=== PATIENT | female | born 1955 | race Caucasian/White ===

== ENCOUNTER 2016-03-15 14:31 | Emergency (ER) | payer MEDICARE ==
[2016-03-15] MEDS ORDERED: Sodium Chloride 0.9% 1000 ML 1,000 ML IV STA (14:48)
[2016-03-15] MEDS ORDERED: Sodium Chloride 0.9% 1000 ML 1,000 ML ONE (14:56)
[2016-03-15 15:11] LABS: Collection Type VOID
[2016-03-15 15:14] LABS: BASOPHIL % 0.5 % (0.0-0.4); Eosinophil % 2.4 % (0.00-5.0); Granulocytes % 56.4 % (36.0-66.0); Mean Cell Volume 91.6 fl (78-100); Mean Corpuscular Hemoglobin 30.9 pg (26-32); Mean Platelet Volume 10.3 fl (6-9.5); Monocytes % 8.7 % (0.0-12.0); Platelet Count 177 K/mm3 (150-450); Red Cell Distribution Width 12.3 % (11.5-14.0); White Blood Count 3.7 K/mm3 (4.0-10.5)
[2016-03-15 15:16] LABS: COMPLETE URINE MICROSCOPIC? YES; Ph 8.5 (5-6)
[2016-03-15 15:18] LABS: Bacteria PACKED /HPF (NEGATIVE); CALCIUM OXALATE CRYSTALS 0-2 /HPF (NEGATIVE); Epithelial Cells MODERATE /HPF (FEW); WBC 15-25 /HPF (0-5)
[2016-03-15 15:23] VITALS: BP 110/64; PULSE 90; O2SAT 97
[2016-03-15] MEDS ORDERED: ROCEPHIN 1 Gm-D5w 50 ml Bag** 50 ML IV ONE ×2 (15:23→15:26)
--- NOTE | 2016-03-15 15:31 | ERPHSYRPT ---
- History of Present Illness Time Seen by Provider: 03/15/16 15:29 Historian: patient Exam Limitations: no limitations Patient Subjective Stated Complaint: pt states she thinks she may have constipation and kidney problems. pt states she has finished levaquin and proxetil for urinary tract infection. pt states her abdomen has hurt since january 15, 2016. Triage Nursing Assessment: pt pink, warm, dry. abdomen soft nontender. pt ambulated into er without difficulty. pt afebrile. bowel sounds present in all 4 quads. Physician History: pt states she thinks she may have constipation and kidney problems. pt states she has finished levaquin and proxetil for urinary tract infection. pt states her abdomen has hurt since january 15, 2016. Timing/Duration: day(s) Abdominal Pain Onset Location: generalized abdomen Severity of Pain-Max: moderate Severity of Pain-Current: moderate Associated Symptoms: nausea Allergies/Adverse Reactions: codeine Allergy (Mild, Verified 03/15/16 14:53) Rash MAKES SICK sumatriptan [From Imitrex] Allergy (Verified 03/15/16 14:53) sumatriptan succinate [From Imitrex] Allergy (Verified 03/15/16 14:53) morphine Adverse Reaction (Severe, Verified 03/15/16 14:53) Headache MIGRAINES hydrocodone bitartrate [From Vicodin] Adverse Reaction (Mild, Verified 03/15/16 14:53) Vomiting Home Medications: Alprazolam 1 mg [Xanax 1 mg] 2 mg PO BID 02/17/13 [History] Oxycodone / APAP 10/325 mg [Oxycodone-Acetaminophen 10-325] 1 tab PO DAILY 02/17/13 [History] Rizatriptan Benzoate [Maxalt] 10 mg PO DAILY PRN 02/17/13 [History] Linaclotide [Linzess] 290 mcg PO DAILY 07/13/14 [History] Polyethylene Glycol 3350 17 gm [Miralax Powder 17GM PACKET] 17 gm PO BID 03/01 [History] Fluticasone Propionate [Flonase Nasal] 16 gm NS DAILY 04/25/15 [History] Sennosides/Docusate Sodium [Senokot-S Tablet] 2 tab PO DAILY 04/25/15 [History] Promethazine HCl 25 mg [Phenergan 25 mg] 25 mg PO Q8HPRN PRN 05/11/15 [ History] Naloxegol Oxalate [Movantik] 25 mg PO DAILY 12/24/15 [History] Cetirizine HCl/Pseudoephedrine [Zyrtec-D Tablet] 1 each PO DAILY 02/03/16 [ History] Levothyroxine Sodium 50 Mcg [Synthroid 50 Mcg] 50 mcg PO DAILY 02/03/16 [ History] Phenazopyridine HCl 200 mg [Pyridium 200 mg] 200 mg PO 02/03/16 [History] Hx Tetanus, Diphtheria Vaccination/Date Given: Yes Hx Influenza Vaccination/Date Given: Yes Hx Pneumococcal Vaccination/Date Given: No Immunizations Up to Date: Yes - Review of Systems Constitutional: No Fever, No Chills Eyes: No Symptoms Ears, Nose, & Throat: No Symptoms Respiratory: No Cough, No Dyspnea Cardiac: No Chest Pain, No Edema, No Syncope Abdominal/Gastrointestinal: Abdominal Pain, Nausea, Vomiting, No Diarrhea Genitourinary Symptoms: No Dysuria Musculoskeletal: No Back Pain, No Neck Pain Skin: No Rash Neurological: No Dizziness, No Focal Weakness, No Sensory Changes Psychological: No Symptoms Endocrine: No Symptoms All Other Systems: Reviewed and Negative - Past Medical History Pertinent Past Medical History: Yes Neurological History: Migraines ENT History: Cataracts, Other Cardiac History: No Pertinent History Respiratory History: No Pertinent History Endocrine Medical History: Hypothyroidism, Other Musculoskeletal History: Arthritis, Degenerative Disk Disease, Osteoarthritis, Other GI Medical History: GERD, Irritable Bowel, Ulcer, Other History: Other Psycho-Social History: Anxiety Female Reproductive Disorders: Other Other Medical History: cystitis, chronic pseudo obstructions - Past Surgical History Past Surgical History: Yes Neuro Surgical History: No Pertinent History Cardiac: No Pertinent History Respiratory: No Pertinent History Gastrointestinal: Bowel Surgery, Cholecystectomy, Colon Resection Genitourinary: Other Musculoskeletal: No Pertinent History Female Surgical History: Hysterectomy Other Surgical History: COLONOSCOPIES, EGDs. Total colectomy. FEEDING TUBE FOR 4 YEARS, stretches of bladder and urethra, inguinal hernia, bowel obstructions x2 - Social History Smoking Status: Never smoker Exposure to second hand smoke: No Drug Use: none Patient Lives Alone: No - Female History Hx Now: No - Nursing Vital Signs Nursing Vital Signs: Initial Vital Signs Temperature 97.9 F Temperature Source Oral Pulse Rate 90 Respiratory Rate 18 Blood Pressure [Left Arm] 110/64 Pain Intensity 8 - Physical Exam General Appearance: no apparent distress, alert Eye Exam: PERRL/EOMI, eyes nml inspection Ears, Nose, Throat Exam: normal ENT inspection, pharynx normal, moist mucous membranes Neck Exam: normal inspection, non-tender, supple, full range of motion Respiratory Exam: normal breath sounds, lungs clear, No respiratory distress Cardiovascular Exam: regular rate/rhythm, normal heart sounds Gastrointestinal/Abdomen Exam: soft, No tenderness, No mass Back Exam: normal inspection, normal range of motion, No CVA tenderness, No vertebral tenderness Extremity Exam: normal inspection, normal range of motion, pelvis stable Neurologic Exam: alert, 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, cooperative, normal mood/affect, nml cerebellar function, sensation nml, No motor deficits Skin Exam: normal color, warm, dry SpO2: 97 Oxygen Delivery: Room Air - Course Nursing assessment & vital signs reviewed: Yes Ordered Tests: Active Orders 24 hr Category Date Time Status IV Insertion STAT Care 03/15/16 15:09 Active CBC W DIFF Stat Lab 03/15/16 14:55 Completed CMP Stat Lab 03/15/16 14:55 Completed UA W/ MICROSCOPIC Stat Lab 03/15/16 14:50 Completed UA W/RFX UR CULTURE Stat Lab 03/15/16 15:44 Uncollected Medication Summary Generic Name Dose Route Start Last Admin Trade Name Freq PRN Reason Stop Dose Admin Ceftriaxone Sodium/Dextrose 50 mls @ 100 mls/hr 03/15/16 15:23 03/15/16 15:34 Rocephin 1 Gm-D5w 50 Ml Bag IV 03/15/16 15:52 100 mls/hr STAT ONE Administration Discontinued Medications Generic Name Dose Route Start Last Admin Trade Name Freq PRN Reason Stop Dose Admin Sodium Chloride 1,000 mls @ 999 mls/hr 03/15/16 14:48 03/15/16 14:57 Sodium Chloride 0.9% 1000 Ml IV 03/15/16 15:48 999 mls/hr .Q1H1M STA Administration Sodium Chloride Confirm 03/15/16 14:56 Sodium Chloride 0.9% 1000 Ml Administered 03/15/16 14:57 Dose 1,000 mls @ ud .ROUTE .STK-MED ONE Ceftriaxone Sodium/Dextrose Confirm 03/15/16 15:26 Rocephin 1 Gm-D5w 50 Ml Bag Administered 03/15/16 15:27 Dose 50 mls @ ud IV .STK-MED ONE Lab/Rad Data: Laboratory Result Diagrams 03/15/16 14:55 03/15/16 14:55 Laboratory Results 03/15/16 03/15/16 03/15/16 Range/Units 14:55 14:55 14:50 WBC 3.7 L (4.0-10.5) K/mm3 RBC 4.30 (4.1-5.4) M/mm3 Hgb 13.3 (12.0-16.0) gm/dl Hct 39.4 (35-47) % MCV 91.6 (78-100) fl MCH 30.9 (26-32) pg MCHC 33.8 (32-36) g/dl RDW 12.3 (11.5-14.0) % Plt Count 177 (150-450) K/mm3 MPV 10.3 H (6-9.5) fl Gran % 56.4 (36.0-66.0) % Lymphocytes % 32.0 (24.0-44.0) % Monocytes % 8.7 (0.0-12.0) % Eosinophils % 2.4 (0.00-5.0) % Basophils % 0.5 (0.0-0.4) % Basophils # 0.02 (0-0.4) Sodium 142 (136-145) mEq/L Potassium 3.9 (3.5-5.1) mEq/L Chloride 109 H (98-107) mEq/L Carbon Dioxide 17.1 L (21-32) mEq/L Anion Gap 20.1 H (5-15) MEQ/L BUN 13 (9-20) mg/dL Creatinine 1.28 (0.55-1.30) mg/dl Estimated GFR 45 ML/MIN Glucose 110 (70-110) MG/DL Calcium 8.8 (8.5-10.1) mg/dL Total Bilirubin 0.4 (0.2-1.0) mg/dL AST 17 (15-37) U/L ALT 14 (12-78) U/L Alkaline Phosphatase 97 (46-116) U/L Serum Total Protein 7.6 (6.4-8.2) gm/dL Albumin 3.8 (3.4-5.0) g/dL Ur Collection Type VOID Urine Color DARK YELLOW (YELLOW) Urine Appearance CLOUDY (CLEAR) Urine pH 8.5 (5-6) Ur Specific Odin 1.015 (1.005-1.025) Urine Protein 100 (Negative) Urine Glucose (UA) NEGATIVE (NEGATIVE) mg/dL Urine Ketones NEGATIVE (NEGATIVE) Urine Nitrite NEGATIVE (NEGATIVE) Urine Bilirubin LARGE (NEGATIVE) Urine Urobilinogen 0.2 (0-1) mg/dL Urine WBC (Auto) LARGE (NEGATIVE) Urine RBC (Auto) LARGE (0-5) Aroldo/ul Urine Microscopic RBC 50-100 (0-2) /HPF Urine Microscopic WBC 15-25 (0-5) /HPF Ur Epithelial Cells MODERATE (FEW) /HPF Calcium Oxalate Crystal 0-2 (NEGATIVE) /HPF Urine Bacteria PACKED (NEGATIVE) /HPF Specimen Received 03/15/16 1450 - Progress Progress: improved Counseled pt/family regarding: lab results, diagnosis, need for follow-up - Departure Time of Disposition: 15:39 Departure Disposition: Home Clinical Impression: UTI (urinary tract infection) Qualifiers: Urinary tract infection type: acute pyelonephritis Qualified Code(s): N10 - Acute pyelonephritis Condition: Stable Critical Care Time: No Referrals: PAWEL JAMIL [Primary Care Provider] - Instructions: Urinary Tract Infection (UTI) Additional Instructions: Please follow the instructions given to you. Please take your medication as prescribed if given. If symptoms recur or get worse, come back to the emergency room if you cannot reach your primary care physician, or call your primary care physician for an appointment. Again if your symptoms get worse, come back to the emergency room. Thanks for visiting emergency room, and let us take care of you. Prescriptions: Cephalexin Mh 500 mg [Keflex 500 mg] 500 mg PO Q6H #40 capsule
[2016-03-15 15:33] LABS: ALBUMIN 3.8 g/dL (3.4-5.0); ANION GAP 20.1 MEQ/L (5-15); BILIRUBIN,TOTAL 0.4 mg/dL (0.2-1.0); Carbon Dioxide 17.1 mEq/L (21-32); Potassium 3.9 mEq/L (3.5-5.1); Total Protein 7.6 gm/dL (6.4-8.2)
== END 2016-03-15 16:18 | disposition home or self-care (01) ==
LOC: ED 14:31
DX: N10 Acute pyelonephritis (principal); R10.84 Generalized abdominal pain; R11.2 Nausea with vomiting, unspecified
CPT/HCPCS: 36000; 36415; 36591; 80053; 81000; 85025; 87086; 96360; 99283; J0696; J1642

== ENCOUNTER 2016-04-26 07:37 | Emergency (ER) | payer MEDICARE ==
[2016-04-26 07:57] VITALS: O2SAT 95
[2016-04-26] MEDS ORDERED: Zofran 4 MG/2 ML VIAL IV ONE ×2 (07:58→10:56)
[2016-04-26] MEDS ORDERED: Sodium Chloride 0.9% 1000 ML 1,000 ML IV SCH (08:00)
[2016-04-26] MEDS ORDERED: TORAdol 30 mg Injection IV ONE (08:02)
[2016-04-26] MEDS ORDERED: TORAdol 30 mg Injection ONE (08:08)
[2016-04-26] MEDS ORDERED: Sodium Chloride 0.9% 1000 ML 1,000 ML ONE (08:08)
[2016-04-26] MEDS ORDERED: Zofran 4 MG/2 ML VIAL ONE ×2 (08:08→10:57)
[2016-04-26 08:14] LABS: BASOPHIL % 0.2 % (0.0-0.4); Granulocytes % 71.6 % (36.0-66.0); Lymphocytes % 19.5 % (24.0-44.0); Mean Cell Volume 92.2 fl (78-100); Mean Corpuscular Hemoglobin 30.3 pg (26-32); Monocytes % 6.7 % (0.0-12.0); Platelet Count 147 K/mm3 (150-450); Red Blood Count 3.72 M/mm3 (4.1-5.4); Red Cell Distribution Width 12.6 % (11.5-14.0)
[2016-04-26 08:17] LABS: Collection Type CCMS
[2016-04-26 08:18] LABS: COMPLETE URINE MICROSCOPIC? YES; Ph 5.5 (5-6)
--- NOTE | 2016-04-26 08:24 | ERPHSYRPT ---
- History of Present Illness Time Seen by Provider: 04/26/16 08:00 Historian: patient Exam Limitations: clinical condition Patient Subjective Stated Complaint: pt states she has lithotripsy on 04/25/15 at [facility] and went back to hospital the next day for pain control. pt states she has been taking her pain meds and drinking water and is still having pain. pt c/ o pain to right lower abdomen and flank. Triage Nursing Assessment: pt pink, warm, dry. pt able to void on her own. abdomen soft non tender. pt afrebrile. Physician History: PATIENT WITH HISTORY OF KIDNEY STONES UNDERWENT LITHOTRIPSY ON April FOR A 9MM STONE, AND PATIENT NOW COMPLAINS OF RIGHT LOWER ABDOMINAL PAIN ASSOCIATED WITH INABILITY TO URINATE. HAD 2 EPISODES OR EMESIS THIS MORNING. DENIES FEVER, OR DIARRHEA. Timing/Duration: today Activities at Onset: none Quality: throbbing Abdominal Pain Onset Location: RLQ Pain Radiation: no radiation Severity of Pain-Max: moderate Severity of Pain-Current: moderate Modifying Factors: Improves With: urinating Associated Symptoms: nausea, neck pain Previous symptoms: same symptoms as today Allergies/Adverse Reactions: codeine Allergy (Mild, Verified 04/26/16 07:50) Rash MAKES SICK sumatriptan [From Imitrex] Allergy (Verified 04/26/16 07:50) sumatriptan succinate [From Imitrex] Allergy (Verified 04/26/16 07:50) morphine Adverse Reaction (Severe, Verified 04/26/16 07:50) Headache MIGRAINES hydrocodone bitartrate [From Vicodin] Adverse Reaction (Mild, Verified 04/26/16 07:50) Vomiting fentanyl Adverse Reaction (Verified 04/26/16 07:53) Home Medications: Alprazolam 1 mg [Xanax 1 mg] 2 mg PO BID 02/17/13 [History] Oxycodone / APAP 10/325 mg [Oxycodone-Acetaminophen 10-325] 1 tab PO DAILY 02/17/13 [History] Rizatriptan Benzoate [Maxalt] 10 mg PO DAILY PRN 02/17/13 [History] Linaclotide [Linzess] 290 mcg PO DAILY 07/13/14 [History] Polyethylene Glycol 3350 17 gm [Miralax Powder 17GM PACKET] 17 gm PO BID 03/01 [History] Fluticasone Propionate [Flonase Nasal] 16 gm NS DAILY 04/25/15 [History] Sennosides/Docusate Sodium [Senokot-S Tablet] 2 tab PO DAILY 04/25/15 [History] Promethazine HCl 25 mg [Phenergan 25 mg] 25 mg PO Q8HPRN PRN 05/11/15 [ History] Naloxegol Oxalate [Movantik] 25 mg PO DAILY 12/24/15 [History] Cetirizine HCl/Pseudoephedrine [Zyrtec-D Tablet] 1 each PO DAILY 02/03/16 [ History] Levothyroxine Sodium 50 Mcg [Synthroid 50 Mcg] 50 mcg PO DAILY 02/03/16 [ History] Levofloxacin [Levaquin] 500 mg PO DAILY 04/26/16 [History] Hx Tetanus, Diphtheria Vaccination/Date Given: Yes (up to date) Hx Influenza Vaccination/Date Given: Yes Hx Pneumococcal Vaccination/Date Given: Yes Immunizations Up to Date: Yes - Review of Systems Constitutional: No Fever, No Chills Eyes: No Symptoms Ears, Nose, & Throat: No Symptoms Respiratory: No Symptoms, No Cough, No Dyspnea Cardiac: No Symptoms, No Chest Pain, No Edema, No Syncope Abdominal/Gastrointestinal: Abdominal Pain, Nausea, Vomiting, No Diarrhea Genitourinary Symptoms: No Dysuria Musculoskeletal: No Back Pain, No Neck Pain Skin: No Rash Neurological: No Dizziness, No Focal Weakness, No Sensory Changes Psychological: No Symptoms Endocrine: No Symptoms All Other Systems: Reviewed and Negative - Past Medical History Pertinent Past Medical History: Yes Neurological History: Migraines ENT History: Cataracts, Other Cardiac History: No Pertinent History Respiratory History: No Pertinent History Endocrine Medical History: Hypothyroidism, Other Musculoskeletal History: Arthritis, Degenerative Disk Disease, Osteoarthritis, Other GI Medical History: GERD, Irritable Bowel, Ulcer, Other History: Other Psycho-Social History: Anxiety Female Reproductive Disorders: Other Other Medical History: cystitis, chronic pseudo obstructions - Past Surgical History Past Surgical History: Yes Neuro Surgical History: No Pertinent History Cardiac: No Pertinent History Respiratory: No Pertinent History Gastrointestinal: Bowel Surgery, Cholecystectomy, Colon Resection Genitourinary: Other Musculoskeletal: No Pertinent History Female Surgical History: Hysterectomy Other Surgical History: COLONOSCOPIES, EGDs. Total colectomy. FEEDING TUBE FOR 4 YEARS, stretches of bladder and urethra, inguinal hernia, bowel obstructions x2. lithotripsy - Social History Smoking Status: Never smoker Exposure to second hand smoke: No Drug Use: none Patient Lives Alone: No - Female History Hx Now: No - Nursing Vital Signs Nursing Vital Signs: Initial Vital Signs Temperature 97.4 F Temperature Source Oral Pulse Rate 96 Respiratory Rate 16 Blood Pressure [] 95/35 Pain Intensity 4 - Physical Exam General Appearance: mild distress Eye Exam: PERRL/EOMI, eyes nml inspection Ears, Nose, Throat Exam: normal ENT inspection, pharynx normal, moist mucous membranes Neck Exam: normal inspection, non-tender, supple, full range of motion Respiratory Exam: normal breath sounds, lungs clear, No respiratory distress Cardiovascular Exam: regular rate/rhythm, normal heart sounds Gastrointestinal/Abdomen Exam: soft, normal bowel sounds, tenderness (RIGHT LOWER QUADRANT TENDERNESS), No mass Back Exam: normal inspection, normal range of motion, CVA tenderness (MINIMAL RIGHT CVA TENDERNESS), No vertebral tenderness Extremity Exam: normal inspection, normal range of motion, pelvis stable Neurologic Exam: alert, 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, cooperative, normal mood/affect, nml cerebellar function, sensation nml, No motor deficits Skin Exam: normal color, warm, dry SpO2 Interpretation: normal SpO2: 95 Oxygen Delivery: Room Air - CT Exams Abdomen/Pelvis CT Interpretation: Tele-radiologist Report (MODERATE TO SEVERE RIGHT HYDROURETERONEPHOROSIS TO THE LEVEL OF A CLUSTER AT THE RIGHT URETEROVESICULAR JUNCTION) Ordered Tests: Active Orders 24 hr Category Date Time Status Clean Catch Urine Specimen STAT Care 04/26/16 07:58 Active IV Insertion STAT Care 04/26/16 07:58 Active ABDOMEN AND PELVIS W/0 CONTRAS [CT] Stat Exams 04/26/16 07:59 Taken AMYLASE Stat Lab 04/26/16 08:10 Completed BMP Stat Lab 04/26/16 08:10 Completed CBC W DIFF Stat Lab 04/26/16 08:10 Completed UA W/ MICROSCOPIC Stat Lab 04/26/16 08:10 Completed Urine Triage Profile Stat Lab 04/26/16 08:00 Completed Medication Summary Generic Name Dose Route Start Last Admin Trade Name Freq PRN Reason Stop Dose Admin Sodium Chloride 1,000 mls @ 500 mls/hr 04/26/16 08:00 04/26/16 08:09 Sodium Chloride 0.9% 1000 Ml IV 05/26/16 07:59 500 mls/hr .Q2H JENNIFER Administration Discontinued Medications Generic Name Dose Route Start Last Admin Trade Name Elton PRN Reason Stop Dose Admin Hydromorphone HCl 1 mg 04/26/16 09:25 04/26/16 09:34 Hydromorphone 1 Mg/Ml Ampule IV 04/26/16 09:26 1 mg STAT ONE Administration Hydromorphone HCl Confirm 04/26/16 09:34 Hydromorphone 1 Mg/Ml Ampule Administered 04/26/16 09:35 Dose 1 mg .ROUTE .STK-MED ONE Sodium Chloride Confirm 04/26/16 08:08 Sodium Chloride 0.9% 1000 Ml Administered 04/26/16 08:09 Dose 1,000 mls @ ud .ROUTE .STK-MED ONE Ketorolac Tromethamine 30 mg 04/26/16 08:02 04/26/16 08:09 Toradol 30 Mg Injection IV 04/26/16 08:03 30 mg STAT ONE Administration Ketorolac Tromethamine Confirm 04/26/16 08:08 Toradol 30 Mg Injection Administered 04/26/16 08:09 Dose 30 mg .ROUTE .STK-MED ONE Ondansetron HCl 4 mg 04/26/16 07:58 04/26/16 08:09 Zofran 4 Mg/2 Ml Vial IV 04/26/16 07:59 4 mg STAT ONE Administration Ondansetron HCl Confirm 04/26/16 08:08 Zofran 4 Mg/2 Ml Vial Administered 04/26/16 08:09 Dose 4 mg .ROUTE .STK-MED ONE Lab/Rad Data: Laboratory Result Diagrams 04/26/16 08:10 04/26/16 08:10 Laboratory Results 04/26/16 04/26/16 04/26/16 Range/Units 08:10 08:10 08:10 WBC 6.0 (4.0-10.5) K/mm3 RBC 3.72 L (4.1-5.4) M/mm3 Hgb 11.3 L (12.0-16.0) gm/dl Hct 34.3 L (35-47) % MCV 92.2 (78-100) fl MCH 30.3 (26-32) pg MCHC 32.9 (32-36) g/dl RDW 12.6 (11.5-14.0) % Plt Count 147 L (150-450) K/mm3 MPV 10.0 H (6-9.5) fl Gran % 71.6 H (36.0-66.0) % Lymphocytes % 19.5 L (24.0-44.0) % Monocytes % 6.7 (0.0-12.0) % Eosinophils % 2.0 (0.00-5.0) % Basophils % 0.2 (0.0-0.4) % Basophils # 0.01 (0-0.4) Sodium 143 (136-145) mEq/L Potassium 3.7 (3.5-5.1) mEq/L Chloride 110 H (98-107) mEq/L Carbon Dioxide 21.5 (21-32) mEq/L Anion Gap 15.1 H (5-15) MEQ/L BUN 18 (9-20) mg/dL Creatinine 1.26 (0.55-1.30) mg/dl Estimated GFR 46 ML/MIN Glucose 107 (70-110) MG/DL Calcium 8.6 (8.5-10.1) mg/dL Amylase 47 (25-115) U/L Ur Collection Type CCMS Urine Color YELLOW (YELLOW) Urine Appearance CLOUDY (CLEAR) Urine pH 5.5 (5-6) Ur Specific Castile >=1.030 (1.005-1.025) Urine Protein 30 (Negative) Urine Glucose (UA) NEGATIVE (NEGATIVE) mg/dL Urine Ketones NEGATIVE (NEGATIVE) Urine Nitrite NEGATIVE (NEGATIVE) Urine Bilirubin NEGATIVE (NEGATIVE) Urine Urobilinogen 0.2 (0-1) mg/dL Urine WBC (Auto) NEGATIVE (NEGATIVE) Urine RBC (Auto) MODERATE (0-5) Aroldo/ul Urine Microscopic RBC 5-10 (0-2) /HPF Urine Microscopic WBC 2-5 (0-5) /HPF Ur Epithelial Cells FEW (FEW) /HPF Calcium Oxalate Crystal 10-25 (NEGATIVE) /HPF Urine Bacteria FEW (NEGATIVE) /HPF Urine Opiates Level (NEGATIVE) Ur Methadone (NEGATIVE) Urine Barbiturates (NEGATIVE) Ur Phencyclidine (PCP) (NEGATIVE) Urine Amphetamine (NEGATIVE) U Benzodiazepine Level (NEGATIVE) Urine Cocaine (NEGATIVE) Urine Marijuana (THC) (NEGATIVE) Specimen Received 0804/26/16 04/26/16 Range/Units 08:00 WBC (4.0-10.5) K/mm3 RBC (4.1-5.4) M/mm3 Hgb (12.0-16.0) gm/dl Hct (35-47) % MCV (78-100) fl MCH (26-32) pg MCHC (32-36) g/dl RDW (11.5-14.0) % Plt Count (150-450) K/mm3 MPV (6-9.5) fl Gran % (36.0-66.0) % Lymphocytes % (24.0-44.0) % Monocytes % (0.0-12.0) % Eosinophils % (0.00-5.0) % Basophils % (0.0-0.4) % Basophils # (0-0.4) Sodium (136-145) mEq/L Potassium (3.5-5.1) mEq/L Chloride (98-107) mEq/L Carbon Dioxide (21-32) mEq/L Anion Gap (5-15) MEQ/L BUN (9-20) mg/dL Creatinine (0.55-1.30) mg/dl Estimated GFR ML/MIN Glucose (70-110) MG/DL Calcium (8.5-10.1) mg/dL Amylase (25-115) U/L Ur Collection Type Urine Color (YELLOW) Urine Appearance (CLEAR) Urine pH (5-6) Ur Specific Castile (1.005-1.025) Urine Protein (Negative) Urine Glucose (UA) (NEGATIVE) mg/dL Urine Ketones (NEGATIVE) Urine Nitrite (NEGATIVE) Urine Bilirubin (NEGATIVE) Urine Urobilinogen (0-1) mg/dL Urine WBC (Auto) (NEGATIVE) Urine RBC (Auto) (0-5) Aroldo/ul Urine Microscopic RBC (0-2) /HPF Urine Microscopic WBC (0-5) /HPF Ur Epithelial Cells (FEW) /HPF Calcium Oxalate Crystal (NEGATIVE) /HPF Urine Bacteria (NEGATIVE) /HPF Urine Opiates Level POS. (NEGATIVE) Ur Methadone NEG. (NEGATIVE) Urine Barbiturates NEG. (NEGATIVE) Ur Phencyclidine (PCP) NEG. (NEGATIVE) Urine Amphetamine NEG. (NEGATIVE) U Benzodiazepine Level POS. (NEGATIVE) Urine Cocaine NEG. (NEGATIVE) Urine Marijuana (THC) NEG. (NEGATIVE) Specimen Received - Progress Progress Note: 04/26/16 08:25 PATIENT GIVEN IV NORMAL SALINE 250ML/HR, TORADOL 30MG IV, ZOFRAN 4MG IV 04/26/16 09:30-PATIENT GIVEN DILAUDID 1MG IV FOR ANALGESIA Discussed with Dr.: Other (DISCUSSED WITH UROLOGIST DR HUSTON AT 1000 ACCEPTS TRANSFER TO [facility]IA [facility]) - Departure Departure Disposition: Transfer Clinical Impression: RIGHT DISTAL URETER STONES, SEVERE RIGHT HYDROURETERNEPHROSIS Condition: Stable Critical Care Time: No Referrals: PAWEL JAMIL [Primary Care Provider] -
[2016-04-26 08:32] LABS: Bacteria FEW /HPF (NEGATIVE); Epithelial Cells FEW /HPF (FEW)
[2016-04-26 08:39] LABS: ANION GAP 15.1 MEQ/L (5-15); Carbon Dioxide 21.5 mEq/L (21-32); Potassium 3.7 mEq/L (3.5-5.1)
[2016-04-26] MEDS ORDERED: Hydromorphone 1 mg/ml Ampule IV ONE (09:25)
[2016-04-26] MEDS ORDERED: Hydromorphone 1 mg/ml Ampule ONE (09:34)
[2016-04-26 10:42] VITALS: BP 101/56; PULSE 74
--- NOTE | 2016-04-26 12:06 | XRAY ---
Indication: Right flank pain. Status post lithotripsy. Multiple contiguous axial images obtained through the abdomen and pelvis without contrast using renal stone protocol. Comparison: January 24, 2016. Lung bases now demonstrates minimal bibasilar dependent atelectasis. Stable subcentimeter noncalcified nodule in the left base anteriorly probably granulomatous in this demographic. Also stable distal paraesophageal calcified granulomas. Heart is not enlarged. There are now 3 sub-5 mm right UVJ microcalculi with the proximal ureter distended up to 13 mm. Also severe right-sided hydronephrosis with minimal perinephric stranding all consistent with obstructive uropathy. Additional view right renal microcalculi. Noncontrasted stomach and bowel loops appear nonobstructed with stable intact sigmoid anastomosis. No free fluid/air. Stable left renal cyst/scarring, pelvic phleboliths, cholecystectomy, and hysterectomy. Remaining liver, pancreas, spleen, adrenal glands, urinary bladder, and aorta appear unremarkable for noncontrast exam. Osseous structures intact again with lumbar degenerative changes. Impression: 1. New cluster of right UVJ microcalculi producing obstruction with subsequent hydronephrosis and hydroureter. Additional right renal microcalculi. 2. Stable left renal cyst and probable left lung base noncalcified granuloma. Comment: Preliminary interpretation was made by [facility]. No discrepancy. CTDI 23.69
== END 2016-04-26 11:10 | disposition short-term general hospital (02) ==
LOC: ED 07:37
DX: N20.1 Calculus of ureter (principal); N13.30 Unspecified hydronephrosis; Z98.890 Other specified postprocedural states; Z79.899 Other long term (current) drug therapy
CPT/HCPCS: 36000; 36415; 36591; 74176; 80048; 80307; 81000; 82150; 85025; 96360; 96361; 96374; 96375; 96376; 99285; J1170; J1885; J2405

== ENCOUNTER 2016-05-01 12:54 | Emergency (ER) | payer MEDICARE ==
[2016-05-01] MEDS ORDERED: Sodium Chloride 0.9% 1000 ML 1,000 ML IV STA (13:09)
[2016-05-01] MEDS ORDERED: Zofran 4 MG/2 ML VIAL IV ONE (13:09)
--- NOTE | 2016-05-01 13:16 | ERPHSYRPT ---
- History of Present Illness Time Seen by Provider: 05/01/16 13:00 Source: patient Exam Limitations: clinical condition Patient Subjective Stated Complaint: PT REPORTS SHE HAD LITHOTRIPTY APRIL 24- LAST WEDNESDAY SHE WAS TAKEN BACK TO [facility]-STATED THAT SHE HAS BEEN NAUSEA NO APPETITE VOMITING ET IS DEHYRDATED-STATED THE ONLY THING SHE CAN KEEP DOWN IS ICE CHIPS-DENIES ANY UNUSUAL PAIN Triage Nursing Assessment: PT PALE WARM ET DRY-A & O X 3-ACTING NORMAL FOR PT- ABD TENDER TO PALP-RESP NONLABORED Physician History: PATIENT UNDERWENT LITHROTRIPSY 04/24/2016 FOR A 9MM CALCULUS, RETURNED TO EMERGENCY ON 04/26/2016 FOR SEVERE RIGHT HYDRONEPHROSIS DUE TO 6MM CLUSTER OF STONES AT [facility]. PATIENT TRANSFERRED TO [facility] FOR CYSTOSCOPY WITH STONE RETRIVAL. PATIENT NOW COMPLAINS OF NAUSEA, EMESIS AND WATERY DIARRHEA X 5 DAYS, STATES SHE IS UNABLE TO TOLERATE ORAL FLUIDS. DENIES CHEST PAIN, ABDOMINAL OR FLANK PAIN. PATIENT TREATED FOR URINARY TRACT INFECTION WITH ANTIBIOTIC LEVAQUIN 500MG DAILY. Timing/Duration: day(s) Severity: mild Associated Symptoms: nausea, vomiting, other (DIARRHEA) Allergies/Adverse Reactions: codeine Allergy (Mild, Verified 05/01/16 13:05) Rash MAKES SICK sumatriptan [From Imitrex] Allergy (Verified 05/01/16 13:05) sumatriptan succinate [From Imitrex] Allergy (Verified 05/01/16 13:05) morphine Adverse Reaction (Severe, Verified 05/01/16 13:05) Headache MIGRAINES hydrocodone bitartrate [From Vicodin] Adverse Reaction (Mild, Verified 05/01/16 13:05) Vomiting fentanyl Adverse Reaction (Verified 05/01/16 13:05) Home Medications: Alprazolam 1 mg [Xanax 1 mg] 2 mg PO BID 02/17/13 [History] Oxycodone / APAP 10/325 mg [Oxycodone-Acetaminophen 10-325] 1 tab PO DAILY 02/17/13 [History] Rizatriptan Benzoate [Maxalt] 10 mg PO DAILY PRN 02/17/13 [History] Linaclotide [Linzess] 290 mcg PO DAILY 07/13/14 [History] Polyethylene Glycol 3350 17 gm [Miralax Powder 17GM PACKET] 17 gm PO BID 03/01 [History] Fluticasone Propionate [Flonase Nasal] 16 gm NS DAILY 04/25/15 [History] Sennosides/Docusate Sodium [Senokot-S Tablet] 2 tab PO DAILY 04/25/15 [History] Promethazine HCl 25 mg [Phenergan 25 mg] 25 mg PO Q8HPRN PRN 05/11/15 [ History] Naloxegol Oxalate [Movantik] 25 mg PO DAILY 12/24/15 [History] Cetirizine HCl/Pseudoephedrine [Zyrtec-D Tablet] 1 each PO DAILY 02/03/16 [ History] Levothyroxine Sodium 50 Mcg [Synthroid 50 Mcg] 50 mcg PO DAILY 02/03/16 [ History] Levofloxacin [Levaquin] 500 mg PO DAILY 04/26/16 [History] Hx Tetanus, Diphtheria Vaccination/Date Given: Yes Hx Influenza Vaccination/Date Given: Yes Hx Pneumococcal Vaccination/Date Given: Yes Immunizations Up to Date: Yes - Review of Systems Constitutional: No Fever, No Chills Eyes: No Symptoms Ears, Nose, & Throat: No Symptoms Respiratory: No Symptoms, No Cough, No Dyspnea Cardiac: No Symptoms, No Chest Pain, No Edema, No Syncope Abdominal/Gastrointestinal: Nausea, Vomiting, Diarrhea, No Abdominal Pain Genitourinary Symptoms: No Symptoms, No Dysuria Musculoskeletal: No Symptoms, No Back Pain, No Neck Pain Skin: No Rash Neurological: No Symptoms, No Dizziness, No Focal Weakness, No Sensory Changes Psychological: No Symptoms Endocrine: No Symptoms All Other Systems: Reviewed and Negative - Past Medical History Pertinent Past Medical History: Yes Neurological History: Migraines ENT History: Cataracts, Other Cardiac History: No Pertinent History Respiratory History: No Pertinent History Endocrine Medical History: Hypothyroidism, Other Musculoskeletal History: Arthritis, Degenerative Disk Disease, Osteoarthritis, Other GI Medical History: GERD, Irritable Bowel, Ulcer, Other History: Other Psycho-Social History: Anxiety Female Reproductive Disorders: Other Other Medical History: cystitis, chronic pseudo obstructions - Past Surgical History Past Surgical History: Yes Neuro Surgical History: No Pertinent History Cardiac: No Pertinent History Respiratory: No Pertinent History Gastrointestinal: Bowel Surgery, Cholecystectomy, Colon Resection Genitourinary: Other Musculoskeletal: No Pertinent History Female Surgical History: Hysterectomy Other Surgical History: COLONOSCOPIES, EGDs. Total colectomy. FEEDING TUBE FOR 4 YEARS, stretches of bladder and urethra, inguinal hernia, bowel obstructions x2. lithotripsy - Social History Smoking Status: Never smoker Exposure to second hand smoke: No Drug Use: none Patient Lives Alone: No - Female History Hx Now: No - Nursing Vital Signs Nursing Vital Signs: Initial Vital Signs Temperature 97.8 F Temperature Source Oral Pulse Rate 83 Respiratory Rate 12 Blood Pressure [Right Arm] 114/69 Pain Intensity 0 - Physical Exam SpO2: 96 Oxygen Delivery: Room Air Ordered Tests: Active Orders 24 hr Category Date Time Status EKG-ER Only STAT Care 05/01/16 13:14 Active IV Insertion STAT Care 05/01/16 13:09 Active Orthostatic Vital Signs STAT Care 05/01/16 13:14 Active BMP Stat Lab 05/01/16 13:24 Completed CBC W DIFF Stat Lab 05/01/16 13:24 Completed Lactic Acid Stat Lab 05/01/16 15:35 Completed MAGNESIUM Stat Lab 05/01/16 13:24 Completed TROPONIN Q3H Lab 05/01/16 16:15 Ordered TROPONIN Q3H Lab 05/01/16 19:15 Ordered TROPONIN Q3H Lab 05/01/16 22:15 Ordered TROPONIN Q3H Lab 05/02/16 01:15 Ordered TROPONIN Stat Lab 05/01/16 13:24 Completed UA Stat Lab 05/01/16 13:24 Completed Medication Summary Discontinued Medications Generic Name Dose Route Start Last Admin Trade Name Freq PRN Reason Stop Dose Admin Sodium Chloride 1,000 mls @ 999 mls/hr 05/01/16 13:09 05/01/16 13:21 Sodium Chloride 0.9% 1000 Ml IV 05/01/16 14:09 999 mls/hr .Q1H1M STA Administration Sodium Chloride Confirm 05/01/16 13:19 Sodium Chloride 0.9% 1000 Ml Administered 05/01/16 13:20 Dose 1,000 mls @ ud .ROUTE .STK-MED ONE Magnesium Sulfate/Dextrose 100 mls @ 200 mls/hr 05/01/16 14:50 05/01/16 14:58 Magnesium 1 Gm / 100 Ml D5w IV 05/01/16 15:19 200 mls/hr STAT ONE Administration Magnesium Sulfate/Dextrose Confirm 05/01/16 14:52 Magnesium 1 Gm / 100 Ml D5w Administered 05/01/16 14:53 Dose 100 mls @ ud IV .STK-MED ONE Sodium Chloride 500 mls @ 500 mls/hr 05/01/16 14:57 05/01/16 15:11 Sodium Chloride 0.9% 500 Ml IV 05/01/16 15:56 500 mls/hr .Q1H ONE Administration Sodium Chloride Confirm 05/01/16 15:04 Sodium Chloride 0.9% 500 Ml Administered 05/01/16 15:05 Dose 500 mls @ ud IV .STK-MED ONE Sodium Chloride Confirm 05/01/16 15:10 Sodium Chloride 0.9% 1000 Ml Administered 05/01/16 15:11 Dose 1,000 mls @ ud .ROUTE .STK-MED ONE Ondansetron HCl 4 mg 05/01/16 13:09 05/01/16 13:21 Zofran 4 Mg/2 Ml Vial IV 05/01/16 13:10 4 mg STAT ONE Administration Ondansetron HCl Confirm 05/01/16 13:19 Zofran 4 Mg/2 Ml Vial Administered 05/01/16 13:20 Dose 4 mg .ROUTE .STK-MED ONE Lab/Rad Data: Laboratory Result Diagrams 05/01/16 13:24 05/01/16 13:24 Laboratory Results 05/01/16 05/01/16 05/01/16 Range/Units 15:35 13:24 13:24 WBC (4.0-10.5) K/mm3 RBC (4.1-5.4) M/mm3 Hgb (12.0-16.0) gm/dl Hct (35-47) % MCV (78-100) fl MCH (26-32) pg MCHC (32-36) g/dl RDW (11.5-14.0) % Plt Count (150-450) K/mm3 MPV (6-9.5) fl Gran % (36.0-66.0) % Lymphocytes % (24.0-44.0) % Monocytes % (0.0-12.0) % Eosinophils % (0.00-5.0) % Basophils % (0.0-0.4) % Basophils # (0-0.4) Sodium (136-145) mEq/L Potassium (3.5-5.1) mEq/L Chloride (98-107) mEq/L Carbon Dioxide (21-32) mEq/L Anion Gap (5-15) MEQ/L BUN (9-20) mg/dL Creatinine (0.55-1.30) mg/dl Estimated GFR ML/MIN Glucose (70-110) MG/DL Lactic Acid 1.9 (0.4-2.0) Calcium (8.5-10.1) mg/dL Magnesium 1.5 L (1.8-2.4) mg/dL Troponin I (0.000-0.056) ng/ml Ur Collection Type VOID Urine Color ORANGE (YELLOW) Urine Appearance SLIGHTLY CLOUDY (CLEAR) Urine pH 5.0 (5-6) Ur Specific Arnold >=1.030 (1.005-1.025) Urine Protein >=300 (Negative) Urine Glucose (UA) 100 (NEGATIVE) mg/dL Urine Ketones SMALL-15 (NEGATIVE) Urine Nitrite POSITIVE (NEGATIVE) Urine Bilirubin MODERATE (NEGATIVE) Urine Urobilinogen 2 (0-1) mg/dL Urine WBC (Auto) LARGE (NEGATIVE) Urine RBC (Auto) MODERATE (0-5) Aroldo/ul Specimen Received 05/01/16 1320 05/01/16 05/01/16 Range/Units 13:24 13:24 WBC 5.3 (4.0-10.5) K/mm3 RBC 4.39 (4.1-5.4) M/mm3 Hgb 13.4 (12.0-16.0) gm/dl Hct 40.4 (35-47) % MCV 92.0 (78-100) fl MCH 30.5 (26-32) pg MCHC 33.2 (32-36) g/dl RDW 12.7 (11.5-14.0) % Plt Count 258 (150-450) K/mm3 MPV 10.5 H (6-9.5) fl Gran % 56.4 (36.0-66.0) % Lymphocytes % 31.3 (24.0-44.0) % Monocytes % 8.7 (0.0-12.0) % Eosinophils % 3.2 (0.00-5.0) % Basophils % 0.4 (0.0-0.4) % Basophils # 0.02 (0-0.4) Sodium 143 (136-145) mEq/L Potassium 3.9 (3.5-5.1) mEq/L Chloride 108 H (98-107) mEq/L Carbon Dioxide 22.4 (21-32) mEq/L Anion Gap 16.4 H (5-15) MEQ/L BUN 17 (9-20) mg/dL Creatinine 1.55 H (0.55-1.30) mg/dl Estimated GFR 36 ML/MIN Glucose 121 H (70-110) MG/DL Lactic Acid (0.4-2.0) Calcium 8.9 (8.5-10.1) mg/dL Magnesium (1.8-2.4) mg/dL Troponin I < 0.017 (0.000-0.056) ng/ml Ur Collection Type Urine Color (YELLOW) Urine Appearance (CLEAR) Urine pH (5-6) Ur Specific Arnold (1.005-1.025) Urine Protein (Negative) Urine Glucose (UA) (NEGATIVE) mg/dL Urine Ketones (NEGATIVE) Urine Nitrite (NEGATIVE) Urine Bilirubin (NEGATIVE) Urine Urobilinogen (0-1) mg/dL Urine WBC (Auto) (NEGATIVE) Urine RBC (Auto) (0-5) Aroldo/ul Specimen Received - Progress Progress: unchanged Progress Note: 05/01/16 15:16 PATIENT HYDRATED NORMAL SALINE 1LITER/HR, FOLLOWED BY 500ML BOLUS OVER 30 MINUTES 05/01/16 16:08 PATIENT HAD NO EVIDENCE OF EMESIS WHILE IN ER Counseled pt/family regarding: lab results, diagnosis, need for follow-up - Departure Time of Disposition: 16:10 Departure Disposition: Home Clinical Impression: ACUTE EMESIS/DIARRHEA, CHRONIC URINARY TRACT INFECTION Condition: Stable Critical Care Time: No Referrals: PAWEL JAMIL [Primary Care Provider] - Additional Instructions: ZOFRAN 4MG EVERY 4 HOURS FOR NAUSEA. CONTINUE ALL CURRENT MEDICATIONS DIRECTED, INCLUDING ANTIBIOTIC FOR URINARY TRACT INFECTION. FOLLOWUP WITH YOUR FAMILY PHYSICIAN IN 1 WEEK. RETURN TO EMERGENCY FOR PERSISTENT EMESIS. Prescriptions: Ondansetron [Zofran Odt] 4 mg PO Q4HPRN PRN #6 tab.rapdis PRN Reason: Nausea
[2016-05-01] MEDS ORDERED: Zofran 4 MG/2 ML VIAL ONE (13:19)
[2016-05-01] MEDS ORDERED: Sodium Chloride 0.9% 1000 ML 1,000 ML ONE (13:19)
[2016-05-01 13:34] LABS: BASOPHIL % 0.4 % (0.0-0.4); Collection Type VOID; Eosinophil % 3.2 % (0.00-5.0); Granulocytes % 56.4 % (36.0-66.0); Lymphocytes % 31.3 % (24.0-44.0); Mean Corpuscular Hemoglobin 30.5 pg (26-32); Mean Platelet Volume 10.5 fl (6-9.5); Monocytes % 8.7 % (0.0-12.0); Platelet Count 258 K/mm3 (150-450); Red Blood Count 4.39 M/mm3 (4.1-5.4); Red Cell Distribution Width 12.7 % (11.5-14.0); White Blood Count 5.3 K/mm3 (4.0-10.5)
[2016-05-01 13:35] LABS: COMPLETE URINE MICROSCOPIC? NO
[2016-05-01 14:04] LABS: ANION GAP 16.4 MEQ/L (5-15); BLOOD UREA NITROGEN 17 mg/dL (9-20); CHLORIDE 108 mEq/L (98-107); Carbon Dioxide 22.4 mEq/L (21-32); Glucose 121 MG/DL (70-110); Potassium 3.9 mEq/L (3.5-5.1); SODIUM 143 mEq/L (136-145)
[2016-05-01 14:06] LABS: TROPONIN < 0.017 ng/ml (0.000-0.056)
[2016-05-01] MEDS ORDERED: Magnesium 1 Gm / 100 Ml D5W*** 100 ML IV ONE ×2 (14:50→14:52)
[2016-05-01] MEDS ORDERED: Sodium Chloride 0.9% 500 ML 500 ML IV ONE ×2 (14:57→15:04)
[2016-05-01] MEDS ORDERED: Sodium Chloride 0.9% 1000 ML 0 ML ONE (15:10)
[2016-05-01 15:39] VITALS: BP 114/69; PULSE 83
[2016-05-01 16:09] VITALS: O2SAT 96
== END 2016-05-01 16:32 | disposition home or self-care (01) ==
LOC: ED 12:54
DX: R11.10 Vomiting, unspecified (principal); N39.0 Urinary tract infection, site not specified
CPT/HCPCS: 36000; 36415; 80048; 81002; 83605; 83735; 84484; 85025; 93005; 96360; 96361; 96365; 96374; 99284; J1642; J2405; J3475

== ENCOUNTER 2016-07-18 01:05 | Emergency (ER) | payer MEDICARE ==
[2016-07-18] MEDS ORDERED: Sodium Chloride 0.9% 1000 ML 1,000 ML IV STA (01:27)
[2016-07-18] MEDS ORDERED: Sodium Chloride 0.9% 1000 ML 1,000 ML ONE (01:33)
--- NOTE | 2016-07-18 01:39 | ERPHSYRPT ---
- History of Present Illness Time Seen by Provider: 07/18/16 01:20 Source: patient Exam Limitations: clinical condition Patient Subjective Stated Complaint: PT REPORTS CRAMPING TO BILATERAL LEGS FINGERS ET ARMS-STATES SHE FEELS LIKE HER POTASSIUM IS LOW Triage Nursing Assessment: PT PALE WARM ET XNO-QYGLM-IACT NONLABORED-PT ACTING NORMAL TO SELF Physician History: PATIENT WITH A HISTORY OF OSTEOARTHRITIS, DEGENERATIVE DISC DISEASE, KIDNEY STONES, CHRONIC URINARY TRACT INFECTIONS COMPLAINS OF CRAMPING IN LEGS FOR 3 DAYS. DENIES TRAUMA OR INJURY. RECENTLY FINISHED A 10 DAY COURSE OF ANTIBIOTICS FOR TREATMENT OF URINARY TRACT INFECTION. Method of Injury: other (DENIES INJURY) Occurred: days ago Quality: constant Severity of Pain-Max: moderate Severity of Pain-Current: moderate Lower Extremities Pain: leg: bilateral, thigh: bilateral Modifying Factors: Improves With: movement Associated Symptoms: none (CRAMPING IN LEGS) Allergies/Adverse Reactions: codeine Allergy (Mild, Verified 07/18/16 01:06) Rash MAKES SICK sumatriptan [From Imitrex] Allergy (Verified 07/18/16 01:06) sumatriptan succinate [From Imitrex] Allergy (Verified 07/18/16 01:06) morphine Adverse Reaction (Severe, Verified 07/18/16 01:06) Headache MIGRAINES hydrocodone bitartrate [From Vicodin] Adverse Reaction (Mild, Verified 07/18/16 01:06) Vomiting fentanyl Adverse Reaction (Verified 07/18/16 01:06) Home Medications: Alprazolam 1 mg [Xanax 1 mg] 2 mg PO BID 02/17/13 [History] Oxycodone / APAP 10/325 mg [Oxycodone-Acetaminophen 10-325] 1 tab PO DAILY 02/17/13 [History] Rizatriptan Benzoate [Maxalt] 10 mg PO DAILY PRN 02/17/13 [History] Linaclotide [Linzess] 290 mcg PO DAILY 07/13/14 [History] Polyethylene Glycol 3350 17 gm [Miralax Powder 17GM PACKET] 17 gm PO BID 03/01 [History] Fluticasone Propionate [Flonase Nasal] 16 gm NS DAILY 04/25/15 [History] Sennosides/Docusate Sodium [Senokot-S Tablet] 2 tab PO DAILY 04/25/15 [History] Promethazine HCl 25 mg [Phenergan 25 mg] 25 mg PO Q8HPRN PRN 05/11/15 [ History] Naloxegol Oxalate [Movantik] 25 mg PO DAILY 12/24/15 [History] Cetirizine HCl/Pseudoephedrine [Zyrtec-D Tablet] 1 each PO DAILY 02/03/16 [ History] Levothyroxine Sodium 50 Mcg [Synthroid 50 Mcg] 50 mcg PO DAILY 02/03/16 [ History] Hx Tetanus, Diphtheria Vaccination/Date Given: Yes Hx Influenza Vaccination/Date Given: Yes Hx Pneumococcal Vaccination/Date Given: No Immunizations Up to Date: Yes - Review of Systems Constitutional: No Fever, No Chills Eyes: No Symptoms Ears, Nose, & Throat: No Symptoms Respiratory: No Symptoms, No Cough, No Dyspnea Cardiac: No Chest Pain, No Edema, No Syncope Abdominal/Gastrointestinal: No Symptoms, No Abdominal Pain, No Nausea, No Vomiting, No Diarrhea Genitourinary Symptoms: No Dysuria Musculoskeletal: Myalgias, No Back Pain, No Neck Pain Skin: No Symptoms, No Rash Neurological: No Dizziness, No Focal Weakness, No Sensory Changes Psychological: No Symptoms Endocrine: No Symptoms All Other Systems: Reviewed and Negative - Past Medical History Pertinent Past Medical History: Yes Neurological History: Migraines ENT History: Cataracts, Other Cardiac History: No Pertinent History Respiratory History: No Pertinent History Endocrine Medical History: Hypothyroidism, Other Musculoskeletal History: Arthritis, Degenerative Disk Disease, Osteoarthritis, Other GI Medical History: GERD, Irritable Bowel, Ulcer, Other History: Other Psycho-Social History: Anxiety Female Reproductive Disorders: Other Other Medical History: cystitis, chronic pseudo obstructions - Past Surgical History Past Surgical History: Yes Neuro Surgical History: No Pertinent History Cardiac: No Pertinent History Respiratory: No Pertinent History Gastrointestinal: Bowel Surgery, Cholecystectomy, Colon Resection Genitourinary: Other Musculoskeletal: No Pertinent History Female Surgical History: Hysterectomy Other Surgical History: COLONOSCOPIES, EGDs. Total colectomy. FEEDING TUBE FOR 4 YEARS, stretches of bladder and urethra, inguinal hernia, bowel obstructions x2. lithotripsy - Social History Smoking Status: Never smoker Exposure to second hand smoke: No Drug Use: none Patient Lives Alone: No - Female History Hx Now: No - Nursing Vital Signs Nursing Vital Signs: Initial Vital Signs Temperature 99.1 F Temperature Source Oral Pulse Rate 66 Respiratory Rate 18 Blood Pressure [Right Arm] 132/58 Pain Intensity 4 - Physical Exam General Appearance: alert Eyes, Ears, Nose, Throat Exam: moist mucous membranes Neck Exam: non-tender, supple Cardiovascular/Respiratory Exam: chest non-tender, normal breath sounds, regular rate/rhythm, no respiratory distress Gastrointestinal/Abdominal Exam: non-tender, guarding Back Exam: normal inspection, No vertebral tenderness Hips Exam: bilateral: non-tender, limited range of motion Legs Exam: bilateral leg: no evidence of injury Knees Exam: bilateral knee: non-tender, normal range of motion, no evidence of injury Ankle Exam: bilateral ankle: non-tender, normal inspection, normal range of motion Foot Exam: bilateral foot: non-tender, normal inspection, other (BILATERAL PEDIS PULSES 2+) Neuro/Tendon Exam: normal sensation, normal motor functions 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, 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, cooperative Skin Exam: normal color, warm, dry SpO2 Interpretation: normal SpO2: 96 Oxygen Delivery: Room Air Ordered Tests: Active Orders 24 hr Category Date Time Status CBC W DIFF Stat Lab 07/18/16 01:51 Completed CMP Stat Lab 07/18/16 01:51 Completed MAG [MAGNESIUM] Stat Lab 07/18/16 01:51 Completed UA W/ MICROSCOPIC Stat Lab 07/18/16 01:51 Completed Medication Summary Discontinued Medications Generic Name Dose Route Start Last Admin Trade Name Freq PRN Reason Stop Dose Admin Sodium Chloride 1,000 mls @ 500 mls/hr 07/18/16 01:27 07/18/16 01:42 Sodium Chloride 0.9% 1000 Ml IV 07/18/16 03:26 500 mls/hr .Q2H STA Administration Sodium Chloride Confirm 07/18/16 01:33 Sodium Chloride 0.9% 1000 Ml Administered 07/18/16 01:34 Dose 1,000 mls @ ud .ROUTE .STK-MED ONE Magnesium Sulfate/Dextrose 100 mls @ 200 mls/hr 07/18/16 03:12 07/18/16 03:20 Magnesium 1 Gm / 100 Ml D5w IV 07/18/16 03:41 200 mls/hr STAT ONE Administration Magnesium Sulfate/Dextrose Confirm 07/18/16 03:19 Magnesium 1 Gm / 100 Ml D5w Administered 07/18/16 03:20 Dose 100 mls @ ud IV .STK-MED ONE Lab/Rad Data: Laboratory Result Diagrams 07/18/16 01:51 07/18/16 01:51 Laboratory Results 07/18/16 07/18/16 07/18/16 Range/Units 01:51 01:51 01:51 WBC (4.0-10.5) K/mm3 RBC (4.1-5.4) M/mm3 Hgb (12.0-16.0) gm/dl Hct (35-47) % MCV (78-100) fl MCH (26-32) pg MCHC (32-36) g/dl RDW (11.5-14.0) % Plt Count (150-450) K/mm3 MPV (6-9.5) fl Gran % (36.0-66.0) % Lymphocytes % (24.0-44.0) % Monocytes % (0.0-12.0) % Eosinophils % (0.00-5.0) % Basophils % (0.0-0.4) % Basophils # (0-0.4) Sodium 140 (136-145) mEq/L Potassium 4.0 (3.5-5.1) mEq/L Chloride 106 (98-107) mEq/L Carbon Dioxide 21.4 (21-32) mEq/L Anion Gap 16.3 H (5-15) MEQ/L BUN 25 H (9-20) mg/dL Creatinine 1.23 (0.55-1.30) mg/dl Estimated GFR 47 ML/MIN Glucose 138 H (70-110) MG/DL Calcium 8.7 (8.5-10.1) mg/dL Magnesium 1.6 L (1.8-2.4) mg/dL Total Bilirubin 0.40 (0.2-1.0) mg/dL AST 19 (15-37) U/L ALT 11 L (12-78) U/L Alkaline Phosphatase 109 (46-116) U/L Serum Total Protein 7.4 (6.4-8.2) gm/dL Albumin 3.6 (3.4-5.0) g/dL Ur Collection Type CLEAN CATCH Urine Color ORANGE (YELLOW) Urine Appearance SLIGHTLY CLOUDY (CLEAR) Urine pH 5.0 (5-6) Ur Specific Hyndman >=1.030 (1.005-1.025) Urine Protein TRACE (Negative) Urine Glucose (UA) 100 (NEGATIVE) mg/dL Urine Ketones NEGATIVE (NEGATIVE) Urine Nitrite POSITIVE (NEGATIVE) Urine Bilirubin NEGATIVE (NEGATIVE) Urine Urobilinogen 1 (0-1) mg/dL Urine WBC (Auto) NEGATIVE (NEGATIVE) Urine RBC (Auto) NEGATIVE (0-5) Aroldo/ul Urine Microscopic RBC 0-2 (0-2) /HPF Urine Microscopic WBC 0-2 (0-5) /HPF Ur Epithelial Cells MODERATE (FEW) /HPF Calcium Oxalate Crystal 5-10 (NEGATIVE) /HPF Urine Bacteria MANY (NEGATIVE) /HPF Urine Mucus MODERATE (NEGATIVE) /HPF Specimen Received 07/18/16 0150 07/18/16 Range/Units 01:51 WBC 5.1 (4.0-10.5) K/mm3 RBC 4.12 (4.1-5.4) M/mm3 Hgb 12.1 (12.0-16.0) gm/dl Hct 36.6 (35-47) % MCV 88.8 (78-100) fl MCH 29.4 (26-32) pg MCHC 33.1 (32-36) g/dl RDW 13.0 (11.5-14.0) % Plt Count 180 (150-450) K/mm3 MPV 10.9 H (6-9.5) fl Gran % 59.6 (36.0-66.0) % Lymphocytes % 28.3 (24.0-44.0) % Monocytes % 9.1 (0.0-12.0) % Eosinophils % 2.6 (0.00-5.0) % Basophils % 0.4 (0.0-0.4) % Basophils # 0.02 (0-0.4) Sodium (136-145) mEq/L Potassium (3.5-5.1) mEq/L Chloride (98-107) mEq/L Carbon Dioxide (21-32) mEq/L Anion Gap (5-15) MEQ/L BUN (9-20) mg/dL Creatinine (0.55-1.30) mg/dl Estimated GFR ML/MIN Glucose (70-110) MG/DL Calcium (8.5-10.1) mg/dL Magnesium (1.8-2.4) mg/dL Total Bilirubin (0.2-1.0) mg/dL AST (15-37) U/L ALT (12-78) U/L Alkaline Phosphatase (46-116) U/L Serum Total Protein (6.4-8.2) gm/dL Albumin (3.4-5.0) g/dL Ur Collection Type Urine Color (YELLOW) Urine Appearance (CLEAR) Urine pH (5-6) Ur Specific Hyndman (1.005-1.025) Urine Protein (Negative) Urine Glucose (UA) (NEGATIVE) mg/dL Urine Ketones (NEGATIVE) Urine Nitrite (NEGATIVE) Urine Bilirubin (NEGATIVE) Urine Urobilinogen (0-1) mg/dL Urine WBC (Auto) (NEGATIVE) Urine RBC (Auto) (0-5) Aroldo/ul Urine Microscopic RBC (0-2) /HPF Urine Microscopic WBC (0-5) /HPF Ur Epithelial Cells (FEW) /HPF Calcium Oxalate Crystal (NEGATIVE) /HPF Urine Bacteria (NEGATIVE) /HPF Urine Mucus (NEGATIVE) /HPF Specimen Received - Progress Counseled pt/family regarding: lab results, diagnosis, need for follow-up - Departure Time of Disposition: 04:00 Departure Disposition: Home Clinical Impression: hypomagnesemia Condition: Stable Critical Care Time: No Additional Instructions: MAGNESIUM OXIDE 400MG TWICE DAILY FOR 1 WEEK. CONSULT YOUR PRIMARY CARE PHYSICIAN FOR EVALUATION IN 1 WEEK. Prescriptions: Magnesium Oxide 400 mg [Mag-Ox 400] 400 mg PO BID #14 tablet
[2016-07-18 01:55] LABS: BASOPHIL % 0.4 % (0.0-0.4); Eosinophil % 2.6 % (0.00-5.0); Granulocytes % 59.6 % (36.0-66.0); Lymphocytes % 28.3 % (24.0-44.0); Mean Cell Volume 88.8 fl (78-100); Mean Corpuscular Hemoglobin 29.4 pg (26-32); Mean Platelet Volume 10.9 fl (6-9.5); Monocytes % 9.1 % (0.0-12.0); Platelet Count 180 K/mm3 (150-450); Red Blood Count 4.12 M/mm3 (4.1-5.4); White Blood Count 5.1 K/mm3 (4.0-10.5)
[2016-07-18 02:16] LABS: ALBUMIN 3.6 g/dL (3.4-5.0); ANION GAP 16.3 MEQ/L (5-15); BILIRUBIN,TOTAL 0.4 mg/dL (0.2-1.0); Carbon Dioxide 21.4 mEq/L (21-32); Total Protein 7.4 gm/dL (6.4-8.2)
[2016-07-18 02:20] LABS: COMPLETE URINE MICROSCOPIC? YES; Collection Type CLEAN CATCH; Mucus MODERATE /HPF (NEGATIVE); WBC 0-2 /HPF (0-5)
[2016-07-18 02:21] LABS: Bacteria MANY /HPF (NEGATIVE); Epithelial Cells MODERATE /HPF (FEW)
[2016-07-18] MEDS ORDERED: Magnesium 1 Gm / 100 Ml D5W*** 100 ML IV ONE ×2 (03:12→03:19)
[2016-07-18 03:43] VITALS: BP 132/58; PULSE 66
[2016-07-18 03:55] VITALS: O2SAT 96
== END 2016-07-18 04:01 | disposition home or self-care (01) ==
LOC: ED 01:05
DX: E83.42 Hypomagnesemia (principal); R25.2 Cramp and spasm
CPT/HCPCS: 36000; 36415; 80053; 81000; 83735; 85025; 96360; 96361; 96365; 99284; J1642; J3475

== ENCOUNTER 2016-07-31 19:08 | Emergency (ER) | payer MEDICARE ==
[2016-07-31] MEDS ORDERED: Rocephin 1000 MG INJ IM ONE (19:24)
[2016-07-31] MEDS ORDERED: Rocephin 1000 MG INJ ONE (19:27)
[2016-07-31] MEDS ORDERED: XYLOCAINE 1% HCL 20 ML MDV ONE (19:28)
--- NOTE | 2016-07-31 19:30 | ERPHSYRPT ---
- History of Present Illness Time Seen by Provider: 07/31/16 19:19 Source: patient, other (N.N.) Exam Limitations: no limitations Patient Subjective Stated Complaint: Pt states she was bit on the back of the right leg by a brown recluse last night. She has put rubbing alcohol on it but states she thinks she needs an antibiotic. She has been bit by one before. She states they are all over her apartment. She had the pest control juan look at the spider today and he confirmed it was a brown recluse. Pt denies any pain but states the bite itches. Triage Nursing Assessment: Pt alert and oriented x3. skin pink warm and dry. afebrile. bite noted to posterior right lower leg. no drainage noted Physician History: ABOUT 24 HOURS AGO PT WAS BITTEN BY A SPIDER ON THE RIGHT CALF AT HER RESIDENCE. THE BITE IS PURITIC AND RED. PT DENIES FEVER, NAUSEA, VOMITING, CHEST PAIN, SHORTNESS OF AIR. Allergies/Adverse Reactions: codeine Allergy (Mild, Verified 07/31/16 19:19) Rash MAKES SICK sumatriptan [From Imitrex] Allergy (Verified 07/31/16 19:19) sumatriptan succinate [From Imitrex] Allergy (Verified 07/31/16 19:19) morphine Adverse Reaction (Severe, Verified 07/31/16 19:19) Headache MIGRAINES hydrocodone bitartrate [From Vicodin] Adverse Reaction (Mild, Verified 07/31/16 19:19) Vomiting fentanyl Adverse Reaction (Verified 07/31/16 19:19) Home Medications: Alprazolam 1 mg [Xanax 1 mg] 2 mg PO BID 02/17/13 [History] Oxycodone / APAP 10/325 mg [Oxycodone-Acetaminophen 10-325] 1 tab PO DAILY 02/17/13 [History] Rizatriptan Benzoate [Maxalt] 10 mg PO DAILY PRN 02/17/13 [History] Linaclotide [Linzess] 290 mcg PO DAILY 07/13/14 [History] Polyethylene Glycol 3350 17 gm [Miralax Powder 17GM PACKET] 17 gm PO BID 03/01 [History] Fluticasone Propionate [Flonase Nasal] 16 gm NS DAILY 04/25/15 [History] Sennosides/Docusate Sodium [Senokot-S Tablet] 2 tab PO DAILY 04/25/15 [History] Promethazine HCl 25 mg [Phenergan 25 mg] 25 mg PO Q8HPRN PRN 05/11/15 [ History] Naloxegol Oxalate [Movantik] 25 mg PO DAILY 12/24/15 [History] Cetirizine HCl/Pseudoephedrine [Zyrtec-D Tablet] 1 each PO DAILY 02/03/16 [ History] Levothyroxine Sodium 50 Mcg [Synthroid 50 Mcg] 50 mcg PO DAILY 02/03/16 [ History] Hx Tetanus, Diphtheria Vaccination/Date Given: Yes Hx Influenza Vaccination/Date Given: Yes Hx Pneumococcal Vaccination/Date Given: No - Review of Systems Constitutional: No Fever Respiratory: No Dyspnea Abdominal/Gastrointestinal: No Nausea, No Vomiting Skin: Other (SPIDER BITE TO RIGHT CALF) All Other Systems: Reviewed and Negative - Past Medical History Pertinent Past Medical History: Yes Neurological History: Migraines ENT History: Cataracts, Other Cardiac History: No Pertinent History Respiratory History: No Pertinent History Endocrine Medical History: Hypothyroidism, Other Musculoskeletal History: Arthritis, Degenerative Disk Disease, Osteoarthritis, Other GI Medical History: GERD, Irritable Bowel, Ulcer, Other History: Other Psycho-Social History: Anxiety Female Reproductive Disorders: Other Other Medical History: cystitis, chronic pseudo obstructions - Past Surgical History Past Surgical History: Yes Neuro Surgical History: No Pertinent History Cardiac: No Pertinent History Respiratory: No Pertinent History Gastrointestinal: Bowel Surgery, Cholecystectomy, Colon Resection, Hernia Repair Genitourinary: Other Musculoskeletal: No Pertinent History Female Surgical History: Hysterectomy Other Surgical History: COLONOSCOPIES, EGDs. Total colectomy. FEEDING TUBE FOR 4 YEARS, stretches of bladder and urethra, bowel obstructions x2. lithotripsy - Social History Smoking Status: Never smoker Exposure to second hand smoke: No Drug Use: none Patient Lives Alone: Yes - Female History Hx Last Menstrual Period: hysterectomy Hx Now: No - Nursing Vital Signs Nursing Vital Signs: Initial Vital Signs Temperature 99.1 F Pulse Rate 105 Respiratory Rate 16 Blood Pressure [Right Arm] 130/88 Pain Intensity 0 - Physical Exam General Appearance: alert Hips Exam: right: normal range of motion Legs Exam: right leg: normal range of motion, swelling (~ 1.5 CM DIAMETER AREA OF MILD EDEMA AND ERYTHEMA WITHOUT FLUCTUATION OVER THE MID RIGHT CALF.) Knees Exam: right knee: normal range of motion Ankle Exam: right ankle: normal range of motion Foot Exam: right foot: normal range of motion Neuro/Tendon Exam: normal sensation, normal motor functions 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, cooperative SpO2 Interpretation: normal SpO2: 95 Oxygen Delivery: Room Air - Course Nursing assessment & vital signs reviewed: Yes Ordered Tests: Medication Summary Generic Name Dose Route Start Last Admin Trade Name Freq PRN Reason Stop Dose Admin Ceftriaxone Sodium 1,000 mg 07/31/16 19:24 Rocephin 1000 Mg Inj IM 07/31/16 19:25 STAT ONE - Departure Time of Disposition: 19:32 Departure Disposition: Home Clinical Impression: CELLULITIS OF THE RIGHT CALF Condition: Fair Critical Care Time: No Instructions: Insect Bites and Stings Additional Instructions: FOLLOW UP WITH PRIVATE DOCTOR TOMORROW. Prescriptions: Clindamycin HCl 300 mg PO Q6H #40 capsule
[2016-07-31 19:52] VITALS: BP 122/70; PULSE 74; O2SAT 100
== END 2016-07-31 19:52 | disposition home or self-care (01) ==
LOC: ED 19:08
DX: L03.115 Cellulitis of right lower limb (principal); T63.331A Toxic effect of venom of brown recluse spider, accidental (unintentional), initial encounter; Z79.899 Other long term (current) drug therapy
CPT/HCPCS: 96372; 99284; J0696

== ENCOUNTER 2016-08-09 18:13 | Emergency (ER) | payer MEDICARE ==
[2016-08-09 18:29] VITALS: O2SAT 97
[2016-08-09] MEDS ORDERED: Sodium Chloride 0.9% 1000 ML 1,000 ML IV STA (18:40)
[2016-08-09] MEDS ORDERED: Rocephin 1000 MG INJ IV STA (18:40)
--- NOTE | 2016-08-09 18:47 | ERPHSYRPT ---
- History of Present Illness Source: patient Exam Limitations: no limitations Patient Subjective Stated Complaint: PT STATES SHE HAS BEEN HAVING URINARY SYMPTOMS FOR 2 WEEKS OR MORE. STATES SHE HAS FREQUENCY, BURNING, LOW OUTPUT AND GENERAL IRRITATION. REPORTS A HISTORY OF RENAL ISSUES AND RECURRING UTIS. Triage Nursing Assessment: PT IS AOX3, AMBULATORY TO COT WITH NO DIFFICULTIES, RESPS ARE EASY AND NON LABORED, SKIN IS PWD. ABD IS SOFT AND NON TENDER. Timing/Duration: week(s) (2 weeks) Quality: burning, pressure Onset Location: abdominal pain, pelvic pain Pain Radiation: suprapubic Severity of Pain-Max: moderate Severity of Pain-Current: moderate Prior abdominal problems: UTI Sexual intercourse history: non-contributory Modifying Factors: Improves With: nothing Associated Symptoms: abdominal pain, dysuria, urinary frequency Hx Tetanus, Diphtheria Vaccination/Date Given: Yes Hx Influenza Vaccination/Date Given: Yes Hx Pneumococcal Vaccination/Date Given: No <PERI CORTESYESH - Last Filed: 08/09/16 19:00> <DENIA BROWN - Last Filed: 08/09/16 19:51> - History of Present Illness Time Seen by Provider: 08/09/16 18:44 Physician History: 61-year-old female with significant past medical history of chronic interstitial cystitis, chronic recurrent urinary tract infection and recurrent renal stone came to the emergency room with complaining of lower abdominal suprapubic area pain associated with the bladder spasm and frequency of urination. Patient had history of multiple renal stone and for which patient has underwent lithotripsy. Patient denies any blood in the urine, but complaining of some fever with chills. (SEBASTIAN,LASHANDA) Allergies/Adverse Reactions: codeine Allergy (Mild, Verified 07/31/16 19:19) Rash MAKES SICK sumatriptan [From Imitrex] Allergy (Verified 07/31/16 19:19) sumatriptan succinate [From Imitrex] Allergy (Verified 07/31/16 19:19) morphine Adverse Reaction (Severe, Verified 07/31/16 19:19) Headache MIGRAINES hydrocodone bitartrate [From Vicodin] Adverse Reaction (Mild, Verified 07/31/16 19:19) Vomiting fentanyl Adverse Reaction (Verified 07/31/16 19:19) Home Medications: Alprazolam 1 mg [Xanax 1 mg] 2 mg PO BID 02/17/13 [History] Oxycodone / APAP 10/325 mg [Oxycodone-Acetaminophen 10-325] 1 tab PO DAILY 02/17/13 [History] Rizatriptan Benzoate [Maxalt] 10 mg PO DAILY PRN 02/17/13 [History] Linaclotide [Linzess] 290 mcg PO DAILY 07/13/14 [History] Polyethylene Glycol 3350 17 gm [Miralax Powder 17GM PACKET] 17 gm PO BID 03/01 [History] Fluticasone Propionate [Flonase Nasal] 16 gm NS DAILY 04/25/15 [History] Sennosides/Docusate Sodium [Senokot-S Tablet] 2 tab PO DAILY 04/25/15 [History] Promethazine HCl 25 mg [Phenergan 25 mg] 25 mg PO Q8HPRN PRN 05/11/15 [ History] Naloxegol Oxalate [Movantik] 25 mg PO DAILY 12/24/15 [History] Cetirizine HCl/Pseudoephedrine [Zyrtec-D Tablet] 1 each PO DAILY 02/03/16 [ History] Levothyroxine Sodium 50 Mcg [Synthroid 50 Mcg] 50 mcg PO DAILY 02/03/16 [ History] - Review of Systems Constitutional: No Fever, No Chills Eyes: No Symptoms Ears, Nose, & Throat: No Symptoms Respiratory: No Cough, No Dyspnea Cardiac: No Chest Pain, No Edema, No Syncope Abdominal/Gastrointestinal: No Abdominal Pain, No Nausea, No Vomiting, No Diarrhea Genitourinary Symptoms: Dysuria, Frequency, Hesitancy, Urgency, Flank Pain, No Hematuria Musculoskeletal: No Back Pain, No Neck Pain Skin: No Rash Neurological: No Dizziness, No Focal Weakness, No Sensory Changes Psychological: No Symptoms Endocrine: No Symptoms All Other Systems: Reviewed and Negative <LASHANDA CORTES - Last Filed: 08/09/16 19:00> - Past Medical History Pertinent Past Medical History: Yes Neurological History: Migraines ENT History: Cataracts, Other Cardiac History: No Pertinent History Respiratory History: No Pertinent History Endocrine Medical History: Hypothyroidism, Other Musculoskeletal History: Arthritis, Degenerative Disk Disease, Osteoarthritis, Other GI Medical History: GERD, Irritable Bowel, Ulcer, Other History: Other Psycho-Social History: Anxiety Female Reproductive Disorders: Other Other Medical History: cystitis, chronic pseudo obstructions - Past Surgical History Past Surgical History: Yes Neuro Surgical History: No Pertinent History Cardiac: No Pertinent History Respiratory: No Pertinent History Gastrointestinal: Bowel Surgery, Cholecystectomy, Colon Resection, Hernia Repair Genitourinary: Other Musculoskeletal: No Pertinent History Female Surgical History: Hysterectomy Other Surgical History: COLONOSCOPIES, EGDs. Total colectomy. FEEDING TUBE FOR 4 YEARS, stretches of bladder and urethra, bowel obstructions x2. lithotripsy - Social History Smoking Status: Never smoker Exposure to second hand smoke: No Drug Use: none Patient Lives Alone: Yes - Female History Hx Now: No <PERI CORTESYESH - Last Filed: 08/09/16 19:00> - Physical Exam General Appearance: no apparent distress, alert Eye Exam: PERRL/EOMI, eyes nml inspection Ears, Nose, Throat Exam: normal ENT inspection, TMs normal, pharynx normal, moist mucous membranes Neck Exam: normal inspection, non-tender, supple, full range of motion Respiratory Exam: normal breath sounds, lungs clear, No respiratory distress Cardiovascular Exam: regular rate/rhythm, normal heart sounds, normal peripheral pulses Gastrointestinal/Abdomen Exam: soft, No tenderness, No mass Back Exam: normal inspection, normal range of motion, No CVA tenderness, No vertebral tenderness Extremity Exam: normal inspection, normal range of motion, pelvis stable Neurologic Exam: alert, 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, cooperative, head loft worker II-XII nml as tested, normal mood/affect, sensation nml, No motor deficits Skin Exam: normal color, warm, dry Lymphatic Exam: No adenopathy SpO2: 97 Oxygen Delivery: Room Air <DAMIEN CORTESSH - Last Filed: 08/09/16 19:00> - Course Nursing assessment & vital signs reviewed: Yes <PERI CORTESYESH - Last Filed: 08/09/16 19:00> <SEBASTIANLASHANDA - Last Filed: 08/09/16 19:00> - Progress Progress: improved Air Movement: fair <DENIA BROWN - Last Filed: 08/09/16 19:51> - Progress Progress Note: 08/09/16 19:25 +This is a 61-year-old white female with history of migraines cataracts hypothyroidism anxiety degenerative disc disease arthritis GERD irritable bowel ulcers cystitis chronic pseudoobstruction She complains of 2 weeks of dysuria and frequency with burning and urination She has some suprapubic discomfort she was initially seen by Dr. Cortes. She has been started on IV normal saline labs have been drawn and Rocephin has been ordered for the patient. Patient denies other complaints she does not appear to be in acute distress. She is seeing both and Dr Valdovinos, Past medical history includes migraines, cataracts, hypothyroidism, arthritis, degenerative disc disease, osteoarthritis, GERD, irritable bowel syndrome, ulcers, cystitis, chronic pseudoobstruction Patient is chronically on pain medications. Past surgical history includes bowel surgery, cholecystectomy, colon resection, hernia repair, colonoscopy, EGD, stretching of the bladder and urethra Physical examination well-developed well-nourished white female alert, oriented 3, pleasant and cooperative to examination. Head is atraumatic normocephalic. Eyes PERRLA EOMI fundi unremarkable. Ears TMs bob intact bilaterally. Nose is clear. Throat is clear. Neck is supple. Lungs are clear. Heart regular rate and rhythm without murmur. Abdomen is soft nontender nondistended positive bowel sounds. Extremities full range of motion pulse equal symmetrical 2 over 4. Neuro cranial nerves II through XII are intact DTRs symmetrical 2 over 4 Jayshree Coma Scale is 15. Impression 1 history of interstitial cystitis. 2 dysuria. Plan normal saline and Rocephin as ordered by Dr. Cortes. Await labs. Patient has pain medications at home she does not appear to be in acute distress. Patient states she recently has finished clindamycin and possibly Bactrim. Will evaluate after laboratory data is available 08/09/16 19:46 Patient with 2-5 white cells per high-power field in her urine as well as positive nitrites. Will write for Cipro for the patient she can fill this tomorrow she is getting Rocephin today. Cultures have been obtained and are pending. (DENIA BROWN) <LASHANDA CORTES - Last Filed: 08/09/16 19:00> - Departure Time of Disposition: 19:46 Departure Disposition: Home Critical Care Time: No <DENIA BROWN - Last Filed: 08/09/16 19:51> - Departure Clinical Impression: UTI (urinary tract infection) Qualifiers: Urinary tract infection type: site unspecified Hematuria presence: without hematuria Qualified Code(s): N39.0 - Urinary tract infection, site not specified Condition: Fair Additional Instructions: Return home. Plenty of fluids. Bactrim DS one orally twice a day for 10 days. He Follow-up with your family doctor, urologist, or renal physician. Return for acute distress or for severe symptoms. Pain medications as prescribed by your pain senior controls engineer. Prescriptions: Smz/Tmp Ds Tablet [Bactrim Ds Tablet] 1 tab PO BID #20 tablet
[2016-08-09] MEDS ORDERED: Sodium Chloride 0.9% 1000 ML 1,000 ML ONE (18:57)
[2016-08-09] MEDS ORDERED: ROCEPHIN 1 Gm-D5w 50 ml Bag** 1 G/50 ML IVPB IV STA ×2 (19:09→19:15)
[2016-08-09 19:10] LABS: BASOPHIL % 0.2 % (0.0-0.4); Eosinophil % 1.8 % (0.00-5.0); Granulocytes % 65.6 % (36.0-66.0); Lymphocytes % 25.9 % (24.0-44.0); Mean Corpuscular Hemoglobin 29.8 pg (26-32); Mean Platelet Volume 13.2 fl (6-9.5); Monocytes % 6.5 % (0.0-12.0); Platelet Count 55 K/mm3 (150-450); White Blood Count 4.5 K/mm3 (4.0-10.5)
[2016-08-09 19:21] LABS: ADD URINE CULTURE? YES (NO); Bilirubin NEGATIVE (NEGATIVE); Blood NEGATIVE Ery/ul (0-5); Collection Type CLEAN CATCH; Glucose NEGATIVE (NEGATIVE); Leukocyte Esterase 1+ (NEGATIVE)
[2016-08-09 19:22] LABS: Bacteria MODERATE /HPF (NEGATIVE); COMPLETE URINE MICROSCOPIC? YES; Epithelial Cells FEW /HPF (FEW)
[2016-08-09 19:30] LABS: ALBUMIN 3.8 g/dL (3.4-5.0); ANION GAP 15.7 MEQ/L (5-15); BILIRUBIN,TOTAL 0.5 mg/dL (0.2-1.0); Carbon Dioxide 20.5 mEq/L (21-32); Potassium 4.7 mEq/L (3.5-5.1); Total Protein 7.9 gm/dL (6.4-8.2)
[2016-08-09] MEDS ORDERED: ROCEPHIN 1 Gm-D5w 50 ml Bag** 1 G/50 ML IVPB IV ONE (19:36)
[2016-08-09 20:33] VITALS: BP 130/80; PULSE 84
== END 2016-08-09 20:34 | disposition home or self-care (01) ==
LOC: ED 18:13
DX: N39.0 Urinary tract infection, site not specified (principal); R10.2 Pelvic and perineal pain; R10.9 Unspecified abdominal pain
CPT/HCPCS: 36000; 36415; 80053; 81000; 83605; 85025; 87086; 96360; 96365; 99284; J0696

== ENCOUNTER 2016-09-11 12:19 | Inpatient (IN) | payer MEDICARE ==
[2016-09-11] MEDS: Merrem 1 GM 1 G in Sodium Chloride 100ML MINI-BAG PLUS 100 ML IV SCH (18:25)
[2016-09-11] MEDS ORDERED: OXYCODONE-ACETAMINOPHEN 10-325 PO PRN (19:24)
[2016-09-11] MEDS ORDERED: PHENERGAN 25 MG PO PRN (19:31)
[2016-09-11] MEDS ORDERED: XANAX 1 MG ONE (20:48)
[2016-09-11] MEDS: PYRIDIUM 200 MG PO SCH (20:51)
[2016-09-11] MEDS: Miralax Powder 17GM PACKET PO SCH (20:51)
[2016-09-11] MEDS: Senokot-S Tablet PO SCH (20:52)
[2016-09-11] MEDS ORDERED: XANAX 1 MG PO SCH (22:00)
[2016-09-12] MEDS: Merrem 1 GM 1 G in Sodium Chloride 100ML MINI-BAG PLUS 100 ML IV SCH ×3 (02:27→19:47)
[2016-09-12] MEDS ORDERED: NON-FORMULARY ITEM (Rizatriptan Benzoate [Maxalt] 10 MG) PO PRN (07:38)
[2016-09-12] MEDS ORDERED: CLOTRIMAZOLE 10 MG MM SCH (07:45)
[2016-09-12] MEDS ORDERED: MEDICATION INTERVENTION MC PRN (07:47)
[2016-09-12] MEDS: Senokot-S Tablet PO SCH (08:17)
[2016-09-12] MEDS: PYRIDIUM 200 MG PO SCH (08:17)
[2016-09-12] MEDS: XANAX 1 MG PO SCH ×2 (08:17→20:12)
[2016-09-12] MEDS: Miralax Powder 17GM PACKET PO SCH (08:17)
[2016-09-12] MEDS ORDERED: Protonix 40MG Tablet PO SCH (10:00)
[2016-09-12] MEDS ORDERED: ECOTRIN 81 MG PO SCH (10:00)
[2016-09-12] MEDS ORDERED: PSEUDOEPHEDRINE PO SCH (10:00)
[2016-09-12] MEDS ORDERED: NON-FORMULARY ITEM (Omeprazole [Omeprazole] 40 MG) PO SCH (10:00)
[2016-09-12] MEDS ORDERED: NON-FORMULARY ITEM (Aspirin [Aspirin] 81 MG) PO SCH (10:00)
[2016-09-12] MEDS ORDERED: SYNTHROID 125 MCG PO SCH (10:00)
[2016-09-12] MEDS ORDERED: NON-FORMULARY ITEM (Linaclotide [Linzess] 290 MCG) PO SCH (10:00)
[2016-09-12] MEDS ORDERED: NON-FORMULARY ITEM (Naloxegol Oxalate [Movantik] 25 MG) PO SCH (10:00)
[2016-09-12] MEDS ORDERED: CLARITIN-D 24HR TABLET PO SCH (10:00)
[2016-09-12] MEDS ORDERED: CETIRIZINE HCL PO SCH (10:00)
[2016-09-12] MEDS ORDERED: Sodium Chloride 0.9% 1000 ML 1,000 ML IV SCH (10:45)
--- NOTE | 2016-09-12 10:47 | PCM.HP ---
History of Present Illness - Chief Complaint Chief Complaint: UTI (ESBL) History of Present Illness: is a 61 year old female with complicated history of bowel issues and recurrent UTIs. She was treated outpatient for a culture positive UTI ( Klebsiella sp) shania guerra - she states that didn't seem to make a difference. A few days later she started vomiting, having abdominal pain, and feeling ill and called the office. The organism is ESBL + so she was admitted for IV meropenem. No vomiting since admission. she has chronic abdominal pain, sees Dr. Denny for bowel issues (in [place]) - she is on movantik and linzess but does not have them with her. She is afraid to eat until she has her home meds. She also c/o recent Cp, SOB - saw Dr. ponce last week and had some pulmonary testing - results were abnormal apparently but she hasn't gotten those yet. she has some appointments coming up early next week but unsure what as she doesn 't have her calendar with her. - Review of Systems Constitutional: No Fever Respiratory: Short Of Breath Cardiac: Chest Pain Abdominal/Gastrointestinal: Abdominal Pain, Nausea, Vomiting, Constipation Psychological: Anxiety, No Depression, No Suicidal Ideations All Other Systems: Reviewed and Negative Medications & Allergies Home Medications: Home Medication List Alprazolam 1 mg [Xanax 1 mg] 2 mg PO BID 02/17/13 [History Confirmed 09/11] Oxycodone / APAP 10/325 mg [Oxycodone-Acetaminophen 10-325] 1 tab PO Q8H PRN PRN 02/17/13 [History Confirmed 09/11/16] Rizatriptan Benzoate [Maxalt] 10 mg PO DAILY PRN PRN 02/17/13 [History Confirmed 09/11/16] Linaclotide [Linzess] 290 mcg PO DAILY 07/13/14 [History Confirmed 09/11/16] Polyethylene Glycol 3350 17 gm [Miralax Powder 17GM PACKET] 17 gm PO BID 03/01 [History Confirmed 09/11/16] Sennosides/Docusate Sodium [Senokot-S Tablet] 2 tab PO BID 04/25/15 [History Confirmed 09/11/16] Promethazine HCl 25 mg [Phenergan 25 mg] 25 mg PO Q4HPRN PRN 05/11/15 [ History Confirmed 09/11/16] Naloxegol Oxalate [Movantik] 25 mg PO DAILY 12/24/15 [History Confirmed 09/11/16 ] Cetirizine HCl/Pseudoephedrine [Zyrtec-D Tablet] 1 each PO DAILY 02/03/16 [ History Confirmed 09/11/16] Aspirin 81 mg PO DAILY 09/11/16 [History Confirmed 09/11/16] Clotrimazole [Mycelex] 10 mg MM UD 09/11/16 [History Confirmed 09/11/16] Levothyroxine Sodium 0.5 tab PO DAILY 09/11/16 [History Confirmed 09/11/16] Omeprazole 40 mg PO DAILY 09/11/16 [History Confirmed 09/11/16] Phenazopyridine HCl 200 mg [Pyridium 200 mg] 200 mg PO BID 09/11/16 [ History Confirmed 09/11/16] Allergies/Adverse Reactions: Allergies Allergy/AdvReac Type Severity Reaction Status Date / Time codeine Allergy Mild Rash Verified 09/11/16 17:50 sumatriptan [From Imitrex] Allergy Verified 09/11/16 17:50 sumatriptan succinate Allergy Verified 09/11/16 17:50 [From Imitrex] morphine AdvReac Severe Headache Verified 09/11/16 17:50 hydrocodone bitartrate AdvReac Mild Vomiting Verified 09/11/16 17:50 [From Vicodin] fentanyl AdvReac Verified 09/11/16 17:50 - Past Medical History Past Medical History: Yes Neurological History: Migraines ENT History: Cataracts, Other Cardiac History: No Pertinent History Respiratory History: Other Endocrine Medical History: Hypothyroidism, Other Musculoskelatal History: Arthritis, Degenerative Disk Disease, Osteoarthritis, Other GI Medical History: GERD, Irritable Bowel, Ulcer, Other History: Other Pyscho-Social History: Anxiety Reproductive Disorders: Other Comment: cystitis, chronic pseudo obstructions, has seen a commodity analyst recently and failed a test but pt unsure of what test it was. She states that she "loses air when I exert myself." - Female History Are you now?: No - Past Surgical History Past Surgical History: Yes Neuro Surgical History: No Pertinent History Cardiac History: No Pertinent History Respiratory Surgery: No Pertinent History GI Surgical History: Bowel Surgery, Cholecystectomy, Colon Resection, Hernia Repair Genitourinary Surgical Hx: Other Musculskeletal Surgical Hx: No Pertinent History Female Surgical History: Hysterectomy Other Surgical History: COLONOSCOPIES, EGDs. Total colectomy. FEEDING TUBE FOR 4 YEARS, stretches of bladder and urethra, bowel obstructions x2. lithotripsy - Social History Smoking Status: Never smoker Exposure to second hand smoke: No Alcohol: None Drug Use: none - Physical Exam Vital Signs: Vital Signs - 24 hr Temp Pulse Resp BP Pulse Ox 09/12/16 07:24 98.0 F 89 18 117/66 95 09/12/16 04:00 97.9 F 64 15 94/50 95 09/12/16 00:00 97.9 F 74 17 103/52 95 09/11/16 20:00 98.0 F 86 17 91/55 93 L 09/11/16 17:50 98.7 F 99 H 20 109/56 96 09/11/16 16:19 98.7 F 99 H 20 109/56 96 General Appearance: no apparent distress Neurologic Exam: alert, 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, cooperative Eye Exam: eyes nml inspection Neck Exam: normal inspection, supple Respiratory Exam: normal breath sounds, lungs clear, No crackles/rales, No rhonchi, No wheezing Cardiovascular Exam: regular rate/rhythm, normal heart sounds, No murmur Gastrointestinal/Abdomen Exam: soft, normal bowel sounds, tenderness ( generalized), No distention, No mass, No guarding, No rebound Back Exam: normal inspection, CVA tenderness (on R) Extremity Exam: No pedal edema, No swelling Skin Exam: normal color, warm, dry Assessment/Plan (1) UTI (urinary tract infection) Current Visit: No Status: Acute Qualifiers: Urinary tract infection type: acute cystitis Hematuria presence: without hematuria Qualified Code(s): N30.00 - Acute cystitis without hematuria Assessment & Plan: On Meropenem, I told the patient to expect at least 5 days of treatment. Code(s): N39.0 - URINARY TRACT INFECTION, SITE NOT SPECIFIED (2) ESBL (extended spectrum beta-lactamase) producing bacteria infection Current Visit: No Status: Acute Code(s): A49.9 - BACTERIAL INFECTION, UNSPECIFIED; Z16.12 - EXTENDED SPECTRUM BETA LACTAMASE (ESBL) RESISTANCE (3) Failure of outpatient treatment Current Visit: No Status: Acute Code(s): Z78.9 - OTHER SPECIFIED HEALTH STATUS (4) Shortness of breath Current Visit: Yes Status: Acute Assessment & Plan: Would like to get the results of recent pulmonary testing with Dr. Ponce. Code(s): R06.02 - SHORTNESS OF BREATH (5) Chronic constipation Current Visit: Yes Status: Acute Assessment & Plan: Sees Dr. Denny. Gladys is going to help us get pt's medications, thank you ! Code(s): K59.09 - OTHER CONSTIPATION
[2016-09-12 11:44] LABS: BASOPHIL % 0.6 % (0.0-0.4); Eosinophil % 2.5 % (0.00-5.0); Granulocytes % 65.1 % (36.0-66.0); Lymphocytes % 24.3 % (24.0-44.0); Mean Cell Volume 88.8 fl (78-100); Mean Corpuscular Hemoglobin 29.7 pg (26-32); Mean Platelet Volume 10.1 fl (6-9.5); Monocytes % 7.5 % (0.0-12.0); Platelet Count 159 K/mm3 (150-450); Red Blood Count 4.27 M/mm3 (4.1-5.4); Red Cell Distribution Width 13.8 % (11.5-14.0); White Blood Count 3.6 K/mm3 (4.0-10.5)
[2016-09-12 12:03] LABS: ALBUMIN 3.3 g/dL (3.4-5.0); ANION GAP 13.1 MEQ/L (5-15); BILIRUBIN,TOTAL 0.7 mg/dL (0.2-1.0); Potassium 4.3 mEq/L (3.5-5.1); Total Protein 6.6 gm/dL (6.4-8.2)
[2016-09-12 16:34] VITALS: O2SAT 95
[2016-09-12 20:09] VITALS: BP 89/57; PULSE 77
--- NOTE | 2016-09-14 11:17 | DS ---
ADMISSION DIAGNOSIS: 1. EXTENDED-SPECTRUM BETA-LACTAMASES POSITIVE ORGANISMS. 2. URINARY TRACT INFECTION. 3. FAILED OUTPATIENT THERAPY. 4. CHRONIC CONSTIPATION. DISCHARGE DIAGNOSIS: 1. EXTENDED-SPECTRUM BETA-LACTAMASES POSITIVE ORGANISMS. 2. URINARY TRACT INFECTION. 3. FAILED OUTPATIENT THERAPY. 4. CHRONIC CONSTIPATION. HOSPITAL COURSE: This is a 61 y/o female patient of [facility] with chronic abdominal issues and urinary tract infections who was treated recently for an extended-spectrum beta-lactamases positive Klebsiella urinary tract infection. She was initially treated outpatient with Cipro which the Klebsiella was susceptible to. However, she did not improve and in fact, started getting ill with some vomiting, so was admitted to the hospital for IV Meropenem. She was in the hospital for over 24 hours and was doing very well on IV Meropenem with no vomiting. However, she did not have her medicine with her for the constipation, particularly Movantik and Linzess and the hospital pharmacy does not carry those. We did call [facility] and they did not have those available either. She did not have anyone available to go to her house and get her medication. We even spoke with the police and they told us the liability was too great to go to her house and get the medicine, so we are discharging her to home after her last dose of Meropenem tonight and she is coming back in the morning to start back on the IV antibiotics. DISCHARGE CONDITION: Stable. DISPOSITION: Home.
== END 2016-09-12 20:40 | disposition home or self-care (01) | DRG 690 ==
LOC: MED SURG 15:55
PROVIDERS: ADMIT Family Medicine; ATTEND Family Medicine
DX: N30.00 Acute cystitis without hematuria (principal); A49.9 Bacterial infection, unspecified; Z16.12 Extended spectrum beta lactamase (ESBL) resistance; K59.09 Other constipation; Z78.9 Other specified health status; D64.9 Anemia, unspecified; N18.9 Chronic kidney disease, unspecified; F41.9 Anxiety disorder, unspecified; E03.9 Hypothyroidism, unspecified; M19.90 Unspecified osteoarthritis, unspecified site; K21.9 Gastro-esophageal reflux disease without esophagitis; Z79.899 Other long term (current) drug therapy; Z90.49 Acquired absence of other specified parts of digestive tract
CPT/HCPCS: 36415; 80053; 85025; J1642; A9270-GY

== ENCOUNTER 2016-09-13 08:48 | Observation (INO) | payer MEDICARE ==
--- NOTE | 2016-09-13 12:35 | PCM.HP ---
History of Present Illness - Chief Complaint Chief Complaint: UTI (ESBL), Failed Outpatient Antibiotics History of Present Illness: is a 61 year old female pt admitted with ESBL + UTI. She was treated outpatient with cipro and a few days after the antibiotics ended she was feeling very ill and vomiting. She called the office and was admitted directly to be treated wiht IV meropenem. After admission she told me she didn' t have any of her medications for constipation - Movantik and Linzess. Without those and other daily meds she gets constipated (has a long history of GI issues wiht multiple surgeries). There is no family or friend available to get her meds, so we had to discharge the patient last night and re-admit her this morning. Denies any vomiting since the IV antibiotics were started. - Review of Systems Constitutional: No Fever Abdominal/Gastrointestinal: Constipation Psychological: Anxiety All Other Systems: Reviewed and Negative Medications & Allergies Home Medications: Home Medication List Alprazolam 1 mg [Xanax 1 mg] 2 mg PO BID 02/17/13 [History Confirmed 09/13] Oxycodone / APAP 10/325 mg [Oxycodone-Acetaminophen 10-325] 1 tab PO Q8H PRN PRN 02/17/13 [History Confirmed 09/13/16] Rizatriptan Benzoate [Maxalt] 10 mg PO DAILY PRN PRN 02/17/13 [History Confirmed 09/13/16] Linaclotide [Linzess] 290 mcg PO DAILY 07/13/14 [History Confirmed 09/13/16] Polyethylene Glycol 3350 17 gm [Miralax Powder 17GM PACKET] 17 gm PO BID 03/01 [History Confirmed 09/13/16] Sennosides/Docusate Sodium [Senokot-S Tablet] 2 tab PO BID 04/25/15 [History Confirmed 09/13/16] Promethazine HCl 25 mg [Phenergan 25 mg] 25 mg PO Q4HPRN PRN 05/11/15 [ History Confirmed 09/13/16] Naloxegol Oxalate [Movantik] 25 mg PO DAILY 12/24/15 [History Confirmed 09/13/16 ] Cetirizine HCl/Pseudoephedrine [Zyrtec-D Tablet] 1 each PO DAILY 02/03/16 [ History Confirmed 09/13/16] Aspirin 81 mg PO DAILY 09/11/16 [History Confirmed 09/13/16] Clotrimazole [Mycelex] 10 mg MM UD 09/11/16 [History Confirmed 09/13/16] Levothyroxine Sodium 0.5 tab PO DAILY 09/11/16 [History Confirmed 09/13/16] Omeprazole 40 mg PO DAILY 09/11/16 [History Confirmed 09/13/16] Phenazopyridine HCl 200 mg [Pyridium 200 mg] 200 mg PO BID 09/11/16 [ History Confirmed 09/13/16] Allergies/Adverse Reactions: Allergies Allergy/AdvReac Type Severity Reaction Status Date / Time codeine Allergy Mild Rash Verified 09/13/16 11:39 sumatriptan [From Imitrex] Allergy Verified 09/13/16 11:39 sumatriptan succinate Allergy Verified 09/13/16 11:39 [From Imitrex] morphine AdvReac Severe Headache Verified 09/13/16 11:39 hydrocodone bitartrate AdvReac Mild Vomiting Verified 09/13/16 11:39 [From Vicodin] fentanyl AdvReac Verified 09/13/16 11:39 - Past Medical History Past Medical History: Yes Neurological History: Migraines ENT History: Cataracts, Other Cardiac History: No Pertinent History Respiratory History: Other Endocrine Medical History: Hypothyroidism, Other Musculoskelatal History: Arthritis, Degenerative Disk Disease, Osteoarthritis, Other GI Medical History: GERD, Irritable Bowel, Ulcer, Other History: Other Pyscho-Social History: Anxiety Reproductive Disorders: Other Comment: cystitis, chronic pseudo obstructions, has seen a tour leader recently and failed a test but pt unsure of what test it was. She states that she "loses air when I exert myself." Pt states there are no changes from previous recent admission. - Female History Are you now?: No - Past Surgical History Past Surgical History: Yes Neuro Surgical History: No Pertinent History Cardiac History: No Pertinent History Respiratory Surgery: No Pertinent History GI Surgical History: Bowel Surgery, Cholecystectomy, Colon Resection, Hernia Repair Genitourinary Surgical Hx: Other Musculskeletal Surgical Hx: No Pertinent History Female Surgical History: Hysterectomy Other Surgical History: COLONOSCOPIES, EGDs. Total colectomy. FEEDING TUBE FOR 4 YEARS, stretches of bladder and urethra, bowel obstructions x2, lithotripsy. Pt states there are no changes from previous recent admission. - Social History Smoking Status: Never smoker Exposure to second hand smoke: No Alcohol: None Drug Use: none - Physical Exam Vital Signs: Vital Signs - 24 hr Temp Pulse Resp BP Pulse Ox 09/13/16 11:43 98.3 F 75 18 108/57 97 09/13/16 09:07 98.3 F 75 18 108/57 97 General Appearance: no apparent distress Neurologic Exam: alert, 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, cooperative Eye Exam: eyes nml inspection Neck Exam: normal inspection, supple Respiratory Exam: normal breath sounds, lungs clear, No crackles/rales, No rhonchi, No wheezing Cardiovascular Exam: regular rate/rhythm, normal heart sounds, No murmur Gastrointestinal/Abdomen Exam: soft, normal bowel sounds, tenderness ( generalized scattered ttp as usual), No distention Extremity Exam: No pedal edema, No swelling Skin Exam: normal color, warm, dry Assessment/Plan (1) ESBL (extended spectrum beta-lactamase) producing bacteria infection Current Visit: No Status: Acute Assessment & Plan: On IV meropenem. Code(s): A49.9 - BACTERIAL INFECTION, UNSPECIFIED; Z16.12 - EXTENDED SPECTRUM BETA LACTAMASE (ESBL) RESISTANCE (2) UTI (urinary tract infection) Current Visit: No Status: Acute Qualifiers: Assessment & Plan: Plan is to treat x 5d with IV antibiotics, although I may consult with ID to optimize the length of treatment. Code(s): N39.0 - URINARY TRACT INFECTION, SITE NOT SPECIFIED (3) Chronic constipation Current Visit: No Status: Acute Assessment & Plan: Pt now has her home meds - resume. Code(s): K59.09 - OTHER CONSTIPATION
[2016-09-13] MEDS ORDERED: NON-FORMULARY ITEM (Rizatriptan Benzoate [Maxalt] 10 MG) PO PRN (12:54)
[2016-09-13] MEDS ORDERED: CLOTRIMAZOLE 10 MG MM SCH (13:00)
[2016-09-13] MEDS ORDERED: MEDICATION INTERVENTION MC PRN (13:12)
[2016-09-13] MEDS: Sodium Chloride 0.9% 1000 ML 1,000 ML IV SCH (13:35)
[2016-09-13] MEDS: Merrem 1 GM 1 G in Sodium Chloride 100ML MINI-BAG PLUS 100 ML IV SCH ×2 (13:36→21:20)
[2016-09-13] MEDS: NON-FORMULARY ITEM PO SCH ×3 (13:38→23:08)
[2016-09-13] MEDS: OXYCODONE-ACETAMINOPHEN 10-325 PO PRN (14:01)
[2016-09-13] MEDS: PHENERGAN 25 MG PO PRN (14:01)
[2016-09-13] MEDS ORDERED: Ativan 1 MG PO PRN (18:18)
[2016-09-13] MEDS: XANAX 1 MG PO SCH (19:12)
[2016-09-13] MEDS: Senokot-S Tablet PO SCH (21:18)
[2016-09-13] MEDS: PYRIDIUM 200 MG PO SCH (21:18)
[2016-09-13] MEDS ORDERED: Miralax Powder 17GM PACKET PO SCH (22:00)
[2016-09-14] MEDS: Sodium Chloride 0.9% 1000 ML 1,000 ML IV SCH ×4 (01:06→22:22)
[2016-09-14 05:48] LABS: Mean Cell Volume 91.2 fl (78-100); Mean Corpuscular Hemoglobin 29.7 pg (26-32); Mean Platelet Volume 10.8 fl (6-9.5); Platelet Count 82 K/mm3 (150-450); Red Blood Count 4.11 M/mm3 (4.1-5.4); Red Cell Distribution Width 13.9 % (11.5-14.0); White Blood Count 3.2 K/mm3 (4.0-10.5)
[2016-09-14 05:56] LABS: ANION GAP 8.7 MEQ/L (5-15); Carbon Dioxide 28.4 mEq/L (21-32); Potassium 4.6 mEq/L (3.5-5.1)
[2016-09-14] MEDS: NON-FORMULARY ITEM PO SCH ×5 (06:03→22:39)
[2016-09-14] MEDS: Merrem 1 GM 1 G in Sodium Chloride 100ML MINI-BAG PLUS 100 ML IV SCH ×3 (06:04→22:38)
[2016-09-14 06:26] LABS: ATYPICAL LYMPHS 2 %; BAND 2 % (0.0-2.0); Eosinophil 1 % (0.00-3.0); Total Cells Counted 100
[2016-09-14 06:27] LABS: ANISOCYTOSIS 1+; Platelet Estimate DECREASED (NORMAL); Toxic Granulation 1+
[2016-09-14] MEDS: XANAX 1 MG PO SCH ×2 (07:47→20:33)
[2016-09-14] MEDS ORDERED: PROVENTIL 2.5 MG/3 ML NEB IH PRN (08:47)
--- NOTE | 2016-09-14 08:49 | PCM.NOTE ---
Date and Time: 09/14/16 0847 Subjective Assessment: Pt would like miralax 2 caps TID, she takes this at home. Herb po well. afebrile. Has new cough. - Review of Systems Constitutional: No Fever Respiratory: Cough Objective Exam General Appearance: no apparent distress Neurologic Exam: alert, 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, cooperative Skin Exam: normal color, warm, dry Respiratory Exam: normal breath sounds, lungs clear, No crackles/rales, No rhonchi, No wheezing Cardiovascular Exam: regular rate/rhythm, normal heart sounds, No murmur Gastrointestinal/Abdomen Exam: soft, normal bowel sounds, No tenderness, No distention Extremity Exam: No pedal edema, No swelling OBJECTIVE DATA Vital Signs: Vital Signs - 24 hr Temp Pulse Resp BP Pulse Ox 09/14/16 07:26 98.1 F 78 18 130/90 96 09/14/16 04:00 97.9 F 68 17 99/55 92 L 09/14/16 00:00 97.8 F 72 18 100/53 93 L 09/13/16 20:00 97.8 F 69 17 91/55 92 L 09/13/16 16:20 98.2 F 70 18 109/70 94 L 09/13/16 13:07 98.3 F 75 18 108/57 97 09/13/16 11:43 98.3 F 75 18 108/57 97 09/13/16 09:07 98.3 F 75 18 108/57 97 Pain Assessment - Last Documented Pain Intensity 8 Pain Scale Used 0-10 Pain Scale Intake and Output: Intake & Output 09/11/16 09/12/16 09/13/16 09/14/16 11:59 11:59 11:59 11:59 Intake Total 2233 Output Total 400 Balance 1833 Weight 69.853 kg Lab Results: Lab Results-Last 24 Hours 09/14/16 09/14/16 Range/Units 05:25 05:25 WBC 3.2 L (4.0-10.5) K/mm3 RBC 4.11 (4.1-5.4) M/mm3 Hgb 12.2 (12.0-16.0) gm/dl Hct 37.5 (35-47) % MCV 91.2 (78-100) fl MCH 29.7 (26-32) pg MCHC 32.5 (32-36) g/dl RDW 13.9 (11.5-14.0) % Plt Count 82 L (150-450) K/mm3 MPV 10.8 H (6-9.5) fl Segmented Neutrophils 40 (36.0-66.0) % Band Neutrophils 2 (0.0-2.0) % Lymphocytes (Manual) 52 H (24-44) % Monocytes (Manual) 3 (0.0-12.0) % Eosinophils (Manual) 1 (0.00-3.0) % Differential Comment ABNORMAL Atypical Lymphocytes 2 % Toxic Granulation 1+ Platelet Estimate DECREASED (NORMAL) Anisocytosis 1+ Sodium 144 (136-145) mEq/L Potassium 4.6 (3.5-5.1) mEq/L Chloride 111 H (98-107) mEq/L Carbon Dioxide 28.4 (21-32) mEq/L Anion Gap 8.7 (5-15) MEQ/L BUN 14 (9-20) mg/dL Creatinine 1.01 (0.55-1.30) mg/dl Estimated GFR 59 ML/MIN Glucose 90 (70-110) MG/DL Calcium 8.6 (8.5-10.1) mg/dL Assessment/Plan (1) ESBL (extended spectrum beta-lactamase) producing bacteria infection Current Visit: No Status: Acute Assessment & Plan: On Meropenem IV. Code(s): A49.9 - BACTERIAL INFECTION, UNSPECIFIED; Z16.12 - EXTENDED SPECTRUM BETA LACTAMASE (ESBL) RESISTANCE (2) UTI (urinary tract infection) Current Visit: No Status: Acute Qualifiers: Urinary tract infection type: acute cystitis Assessment & Plan: as above. Previous culture positive; most recent culture negative, but pt was very recently on PO antibiotics when it was done. Code(s): N39.0 - URINARY TRACT INFECTION, SITE NOT SPECIFIED (3) Chronic constipation Current Visit: No Status: Acute Assessment & Plan: increase miralax. Code(s): K59.09 - OTHER CONSTIPATION (4) Cough Current Visit: Yes Status: Acute Assessment & Plan: new; IS and albuterol nebs. exam neg. Code(s): R05 - COUGH
[2016-09-14] MEDS ORDERED: CETIRIZINE HCL PO SCH (10:00)
[2016-09-14] MEDS ORDERED: NON-FORMULARY ITEM (Aspirin [Aspirin] 81 MG) PO SCH (10:00)
[2016-09-14] MEDS ORDERED: NON-FORMULARY ITEM (Naloxegol Oxalate [Movantik] 25 MG) PO SCH (10:00)
[2016-09-14] MEDS ORDERED: NON-FORMULARY ITEM (Omeprazole [Omeprazole] 40 MG) PO SCH (10:00)
[2016-09-14] MEDS ORDERED: NON-FORMULARY ITEM (Linaclotide [Linzess] 290 MCG) PO SCH (10:00)
[2016-09-14] MEDS ORDERED: PSEUDOEPHEDRINE PO SCH (10:00)
[2016-09-14] MEDS: Miralax Powder 17GM PACKET PO SCH ×3 (10:29→22:23)
[2016-09-14] MEDS: SYNTHROID 125 MCG PO SCH (10:30)
[2016-09-14] MEDS: Protonix 40MG Tablet PO SCH (10:30)
[2016-09-14] MEDS: PYRIDIUM 200 MG PO SCH ×2 (10:30→22:38)
[2016-09-14] MEDS: Senokot-S Tablet PO SCH ×2 (10:30→22:38)
[2016-09-14] MEDS: ECOTRIN 81 MG PO SCH (10:31)
[2016-09-14] MEDS: CLARITIN-D 24HR TABLET PO SCH (10:31)
[2016-09-14] MEDS: PATIENT OWN MEDICATION PO SCH ×2 (10:31)
[2016-09-15] MEDS: OXYCODONE-ACETAMINOPHEN 10-325 PO PRN (04:36)
[2016-09-15] MEDS: PHENERGAN 25 MG PO PRN (04:36)
[2016-09-15] MEDS: Merrem 1 GM 1 G in Sodium Chloride 100ML MINI-BAG PLUS 100 ML IV SCH (05:57)
[2016-09-15] MEDS: NON-FORMULARY ITEM PO SCH ×2 (05:58→09:53)
[2016-09-15] MEDS: XANAX 1 MG PO SCH (07:26)
[2016-09-15] MEDS: Miralax Powder 17GM PACKET PO SCH (08:07)
--- NOTE | 2016-09-15 08:49 | PCM.DS ---
Discharge Summary Date of Admission: 09/13/16 08:48 Admitting Physician: PAWEL JAMIL Primary Care Provider: PAWEL JAMIL Allergies Allergies codeine Allergy (Mild, Verified 09/13/16 11:39) Rash MAKES SICK sumatriptan [From Imitrex] Allergy (Verified 09/13/16 11:39) sumatriptan succinate [From Imitrex] Allergy (Verified 09/13/16 11:39) morphine Adverse Reaction (Severe, Verified 09/13/16 11:39) Headache MIGRAINES hydrocodone bitartrate [From Vicodin] Adverse Reaction (Mild, Verified 09/13/16 11:39) Vomiting fentanyl Adverse Reaction (Verified 09/13/16 11:39) Hospital Summary - Hospital Course Hospital Course: Pt was treated outpatient for ESBL + UTI with po cipro; she started feeling ill a couple of days after the cipro was finished and she was admitted to [facility] for IV antibiotics. I spoke with ID yesterday and he advised 14d total of IV antibiotics. Will change the pt to IV Invanz for daily outpatient therapy. Still c/o some periumbilical abdominal pain. Herb po. She did vomit early this morning before she ate. Received a pain pill and nausea medicine, which helped but they are making her sleepy. - Vitals & Intake/Output Vital Signs: Vital Signs Temperature 97.9 F 09/15/16 08:00 Pulse Rate 62 09/15/16 08:00 Respiratory Rate 18 09/15/16 08:00 Blood Pressure 112/58 09/15/16 08:00 O2 Sat by Pulse Oximetry 92 L 09/15/16 08:00 Intake & Output: Intake & Output 09/12/16 09/13/16 09/14/16 09/15/16 11:59 11:59 11:59 11:59 Intake Total 2593 4418 Output Total 400 Balance 2193 4418 Weight 69.853 kg - Lab Result Diagrams: 09/14/16 05:25 09/14/16 05:25 - Procedures and Test Procedures and Tests throughout Hospitalization: Therapy Orders & Screens 09/14/16 08:47 Incentive Spirometry Assessmen TID Comment: Diagnosis: UTI (ESBL), Failed Outpatient Antibiotics 09/14/16 09:39 Respiratory Nebulizer UD Comment: albuterol q6 prn Diagnosis: UTI (ESBL), Failed Outpatient Antibiotics Discharge Exam General Appearance: no apparent distress Neurologic Exam: alert, 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, cooperative Skin Exam: normal color, warm, dry Respiratory Exam: normal breath sounds, lungs clear, No crackles/rales, No rhonchi, No wheezing Cardiovascular Exam: regular rate/rhythm, normal heart sounds, No murmur Gastrointestinal/Abdomen Exam: soft, normal bowel sounds, No tenderness, No distention, No mass, No guarding, No rebound Extremity Exam: No pedal edema, No swelling Final Diagnosis/Problem List - Final Discharge Diagnosis/Problem (1) ESBL (extended spectrum beta-lactamase) producing bacteria infection Current Visit: Yes Status: Acute Assessment & Plan: Will d/c home today and pt will need to come in for once daily IV Invanz, 1 g. Needs 9 more days of IV antibiotics. then will need f/u appt (in 3 weeks) with Dr. Degroot. Follow up with me in 1 week. (2) UTI (urinary tract infection) Current Visit: Yes Status: Acute (3) Chronic constipation Current Visit: No Status: Chronic (4) Cough Current Visit: Yes Status: Acute Assessment & Plan: Not coughing this morning, lung exam is benign. On IS. - Discharge Disposition: Home, Self-Care Condition: Stable Prescriptions: New Ertapenem Sodium 1 gm [Invanz 1 GM] 1 g IV DAILY #0 vial Continue Rizatriptan Benzoate [Maxalt] 10 mg PO DAILY PRN PRN PRN Reason: Pain Oxycodone / APAP 10/325 mg [Oxycodone-Acetaminophen 10-325] 1 tab PO Q8H PRN PRN PRN Reason: Pain Alprazolam 1 mg [Xanax 1 mg] 2 mg PO BID Linaclotide [Linzess] 290 mcg PO DAILY Polyethylene Glycol 3350 17 gm [Miralax Powder 17GM PACKET] 17 gm PO BID Sennosides/Docusate Sodium [Senokot-S Tablet] 2 tab PO BID Promethazine HCl 25 mg [Phenergan 25 mg] 25 mg PO Q4HPRN PRN PRN Reason: Nausea Naloxegol Oxalate [Movantik] 25 mg PO DAILY Cetirizine HCl/Pseudoephedrine [Zyrtec-D Tablet] 1 each PO DAILY Omeprazole 40 mg PO DAILY Aspirin 81 mg PO DAILY Clotrimazole [Mycelex] 10 mg MM UD Levothyroxine Sodium 0.5 tab PO DAILY Phenazopyridine HCl 200 mg [Pyridium 200 mg] 200 mg PO BID Follow up with: AAMIR DEGROOT MD [COURTESY STAFF] - 10/13/16 10:30 am PAWEL JAMIL [Primary Care Provider] - 1 Week
[2016-09-15] MEDS: ECOTRIN 81 MG PO SCH (09:52)
[2016-09-15] MEDS: Protonix 40MG Tablet PO SCH (09:52)
[2016-09-15] MEDS: SYNTHROID 125 MCG PO SCH (09:52)
[2016-09-15] MEDS: CLARITIN-D 24HR TABLET PO SCH ×2 (09:53→11:59)
[2016-09-15] MEDS: PATIENT OWN MEDICATION PO SCH ×2 (09:54→09:55)
[2016-09-15] MEDS: Senokot-S Tablet PO SCH (09:56)
[2016-09-15] MEDS: PYRIDIUM 200 MG PO SCH (09:56)
[2016-09-15] MEDS ORDERED: Invanz 1 GM*** 1 G in Sodium Chloride 100ML MINI-BAG PLUS 100 ML IV SCH (12:00)
[2016-09-15 13:51] VITALS: BP 127/92; PULSE 87; O2SAT 96
== END 2016-09-15 13:50 | disposition home or self-care (01) ==
LOC: MED SURG 08:48
PROVIDERS: ADMIT Family Medicine; ATTEND Family Medicine
DX: A49.9 Bacterial infection, unspecified (principal); N39.0 Urinary tract infection, site not specified; K59.09 Other constipation; R05 Cough; E03.9 Hypothyroidism, unspecified; K21.9 Gastro-esophageal reflux disease without esophagitis; M19.90 Unspecified osteoarthritis, unspecified site
CPT/HCPCS: 36415; 80048; 85025; 94760; G0378; J1335; J1642; A9270-GY

== ENCOUNTER 2016-09-15 20:00 | Inpatient (IN) | payer MEDICARE ==
[2016-09-15] MEDS ORDERED: PHENERGAN 25 MG PO PRN (20:46)
[2016-09-15 21:28] LABS: Mean Cell Volume 88.7 fl (78-100); Mean Platelet Volume 10.6 fl (6-9.5); Platelet Count 152 K/mm3 (150-450); Red Blood Count 3.89 M/mm3 (4.1-5.4); Red Cell Distribution Width 13.5 % (11.5-14.0); White Blood Count 4.5 K/mm3 (4.0-10.5)
[2016-09-15] MEDS ORDERED: Hydromorphone 1 mg/ml Ampule IV PRN (21:38)
[2016-09-15] MEDS ORDERED: TORAdol 30 mg Injection IV ONE (22:02)
[2016-09-15] MEDS ORDERED: Merrem 1 GM IV ONE (22:11)
[2016-09-15] MEDS ORDERED: Sodium Chloride 0.9% 100 ML IVPB 100 ML IV ONE (22:12)
[2016-09-15] MEDS: Phenergan 25 MG INJ IV PRN (22:18)
[2016-09-15 22:30] LABS: ATYPICAL LYMPHS 1 %; BAND 3 % (0.0-2.0); Dohle Bodies 1+; Platelet Estimate NORMAL (NORMAL); Total Cells Counted 100
[2016-09-15 22:32] LABS: ALBUMIN 3.3 g/dL (3.4-5.0); ALKALINE PHOSPHATASE 90 U/L (46-116); BLOOD UREA NITROGEN 12 mg/dL (9-20); CHLORIDE 109 mEq/L (98-107); Carbon Dioxide 24.5 mEq/L (21-32); Glucose 108 MG/DL (70-110); Potassium 4.1 mEq/L (3.5-5.1); SGOT/AST 21 U/L (15-37); SGPT/ALT 22 U/L (12-78); SODIUM 143 mEq/L (136-145); Total Protein 6.2 gm/dL (6.4-8.2)
[2016-09-16] MEDS: Sodium Chloride 0.9% 1000 ML 1,000 ML IV SCH ×4 (00:48→23:21)
[2016-09-16] MEDS: Merrem 1 GM 1 G in Sodium Chloride 100ML MINI-BAG PLUS 100 ML IV SCH ×4 (00:48→22:11)
[2016-09-16] MEDS ORDERED: TORAdol 30 mg Injection IV ONE (04:00)
[2016-09-16] MEDS: Phenergan 25 MG INJ IV PRN ×2 (04:55→14:22)
[2016-09-16] MEDS ORDERED: PHENERGAN 25 MG PO PRN (07:34)
[2016-09-16] MEDS ORDERED: PYRIDIUM 200 MG PO PRN (07:34)
[2016-09-16] MEDS ORDERED: NON-FORMULARY ITEM (Rizatriptan Benzoate [Maxalt] 10 MG) PO PRN (07:34)
[2016-09-16] MEDS ORDERED: Miralax Powder 17GM PACKET PO PRN (07:34)
[2016-09-16] MEDS ORDERED: OXYCODONE-ACETAMINOPHEN 10-325 PO PRN (07:34)
[2016-09-16] MEDS ORDERED: CLOTRIMAZOLE 10 MG MM SCH (07:45)
[2016-09-16] MEDS ORDERED: MEDICATION INTERVENTION MC PRN (07:48)
[2016-09-16] MEDS ORDERED: Ativan 2 MG/1 ML VIAL IV PRN (08:44)
[2016-09-16] MEDS ORDERED: SUBLIMAZE 100 MCG/2 ML IV PRN (08:45)
[2016-09-16] MEDS ORDERED: Zofran 4 MG/2 ML VIAL IV PRN (08:53)
--- NOTE | 2016-09-16 08:58 | PCM.HP ---
History of Present Illness - Chief Complaint Chief Complaint: UTI, Vomiting, migraine History of Present Illness: is a 61 year old female who was inpatient for IV merropenem for ESBL + UTI and she was set up yesterday with outpatient Invanz and discharged to home. She states about the time of discharge she started having a headache. When she got home the KIM continued and she had vomiting many times. Her son in law called the ambulance; when she got to the ER they called me and pt was directly admitted. She has a history of chronic KIM but this morning she says the KIM is persistent despite 2 doses of IV toradol and she states it's worse than her usual headache. Continues to have nausea and vomiting. No hematemesis. - Review of Systems Abdominal/Gastrointestinal: Abdominal Pain (mild), Nausea, Vomiting Neurological: Parasthesia (L fingertips; she states this happens when she is anxious) Psychological: Anxiety All Other Systems: Reviewed and Negative Medications & Allergies Home Medications: Home Medication List Alprazolam 1 mg [Xanax 1 mg] 2 mg PO BID 02/17/13 [History Confirmed 09/15] Oxycodone / APAP 10/325 mg [Oxycodone-Acetaminophen 10-325] 1 tab PO Q8H PRN PRN 02/17/13 [History Confirmed 09/15/16] Rizatriptan Benzoate [Maxalt] 10 mg PO BIDPRN PRN 02/17/13 [History Confirmed ] Linaclotide [Linzess] 290 mcg PO DAILY 07/13/14 [History Confirmed 09/15/16] Polyethylene Glycol 3350 17 gm [Miralax Powder 17GM PACKET] 34 gm PO TID PRN 11/15/14 [History Confirmed 09/15/16] Sennosides/Docusate Sodium [Senokot-S Tablet] 2 tab PO BID 04/25/15 [History Confirmed 09/15/16] Promethazine HCl 25 mg [Phenergan 25 mg] 25 mg PO Q4HPRN PRN 05/11/15 [ History Confirmed 09/15/16] Naloxegol Oxalate [Movantik] 25 mg PO DAILY 12/24/15 [History Confirmed 09/15/16 ] Cetirizine HCl/Pseudoephedrine [Zyrtec-D Tablet] 1 each PO DAILY 02/03/16 [ History Confirmed 09/15/16] Aspirin 81 mg PO DAILY 09/11/16 [History Confirmed 09/15/16] Clotrimazole [Mycelex] 10 mg MM UD 09/11/16 [History Confirmed 09/15/16] Levothyroxine Sodium 0.5 tab PO DAILY 09/11/16 [History Confirmed 09/15/16] Omeprazole 40 mg PO DAILY 09/11/16 [History Confirmed 09/15/16] Phenazopyridine HCl 200 mg [Pyridium 200 mg] 200 mg PO BID PRN 09/11/16 [ History Confirmed 09/15/16] Allergies/Adverse Reactions: Allergies Allergy/AdvReac Type Severity Reaction Status Date / Time codeine Allergy Mild Rash Verified 09/13/16 11:39 sumatriptan [From Imitrex] Allergy Verified 09/13/16 11:39 sumatriptan succinate Allergy Verified 09/13/16 11:39 [From Imitrex] morphine AdvReac Severe Headache Verified 09/13/16 11:39 hydrocodone bitartrate AdvReac Mild Vomiting Verified 09/13/16 11:39 [From Vicodin] fentanyl AdvReac Verified 09/13/16 11:39 - Past Medical History Past Medical History: Yes Neurological History: Migraines ENT History: Cataracts, Other Cardiac History: No Pertinent History Respiratory History: Other Endocrine Medical History: Hypothyroidism, Other Musculoskelatal History: Arthritis, Degenerative Disk Disease, Osteoarthritis, Other GI Medical History: GERD, Irritable Bowel, Ulcer, Other History: Other Pyscho-Social History: Anxiety Reproductive Disorders: Other Comment: cystitis, chronic pseudo obstructions, has seen a sap portal consultant recently and failed a test but pt unsure of what test it was. She states that she "loses air when I exert myself." Pt states there are no changes from previous recent admission. - Past Surgical History Past Surgical History: Yes Neuro Surgical History: No Pertinent History Cardiac History: No Pertinent History Respiratory Surgery: No Pertinent History GI Surgical History: Bowel Surgery, Cholecystectomy, Colon Resection, Hernia Repair Genitourinary Surgical Hx: Other Musculskeletal Surgical Hx: No Pertinent History Female Surgical History: Hysterectomy Other Surgical History: COLONOSCOPIES, EGDs. Total colectomy. FEEDING TUBE FOR 4 YEARS, stretches of bladder and urethra, bowel obstructions x2, lithotripsy. Pt states there are no changes from previous recent admission. - Social History Smoking Status: Unknown if ever smoked Exposure to second hand smoke: No Alcohol: None Drug Use: none - Physical Exam Vital Signs: Vital Signs - 24 hr Temp Pulse Resp BP Pulse Ox 09/16/16 07:58 98.3 F 71 19 113/55 96 09/16/16 04:00 98.1 F 60 17 107/55 92 L 09/16/16 00:30 98.1 F 68 19 109/68 95 09/16/16 00:00 97.8 F 69 17 101/66 93 L General Appearance: moderate distress (very nauseated) Neurologic Exam: alert, 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, cooperative, abnormal emergency room nurse II-XII (CN VIII - tongue deviates to L unable to asses CN XI due to position/effort senior it recruiter 4/5 on R, 3/5 on L) Eye Exam: eyes nml inspection, other (EOM intact bilat) Ears, Nose, Throat Exam: moist mucous membranes Neck Exam: normal inspection, non-tender, No lymphadenopathy Respiratory Exam: normal breath sounds, lungs clear, No crackles/rales, No rhonchi, No wheezing Cardiovascular Exam: regular rate/rhythm, normal heart sounds, No murmur Gastrointestinal/Abdomen Exam: soft, normal bowel sounds, No tenderness, No distention, No mass, No guarding, No rebound Extremity Exam: No pedal edema, No swelling Skin Exam: normal color, warm, dry Results - Labs Lab/Micro Results: Lab Results-Last 24 Hours 09/15/16 09/15/16 09/15/16 Range/Units 21:10 21:13 21:13 WBC 4.5 (4.0-10.5) K/mm3 RBC 3.89 L (4.1-5.4) M/mm3 Hgb 11.7 L (12.0-16.0) gm/dl Hct 34.5 L (35-47) % MCV 88.7 (78-100) fl MCH 30.0 (26-32) pg MCHC 33.9 (32-36) g/dl RDW 13.5 (11.5-14.0) % Plt Count 152 (150-450) K/mm3 MPV 10.6 H (6-9.5) fl Segmented Neutrophils 85 H (36.0-66.0) % Band Neutrophils 3 H (0.0-2.0) % Lymphocytes (Manual) 9 L (24-44) % Monocytes (Manual) 2 (0.0-12.0) % Differential Comment NORMAL Atypical Lymphocytes 1 % Dohle Bodies 1+ Platelet Estimate NORMAL (NORMAL) Sodium 143 (136-145) mEq/L Potassium 4.1 (3.5-5.1) mEq/L Chloride 109 H (98-107) mEq/L Carbon Dioxide 24.5 (21-32) mEq/L Anion Gap 14.0 (5-15) MEQ/L BUN 12 (9-20) mg/dL Creatinine 0.94 (0.55-1.30) mg/dl Estimated GFR > 60 ML/MIN Glucose 108 (70-110) MG/DL Lactic Acid 0.7 (0.4-2.0) Calcium 8.5 (8.5-10.1) mg/dL Total Bilirubin 0.30 (0.2-1.0) mg/dL AST 21 (15-37) U/L ALT 22 (12-78) U/L Alkaline Phosphatase 90 (46-116) U/L Serum Total Protein 6.2 L (6.4-8.2) gm/dL Albumin 3.3 L (3.4-5.0) g/dL - Radiology Impressions Radiology Exams & Impressions: Radiology Procedures Category Date Time Status HEAD WITHOUT CONTRAST [CT] Stat Exams 09/16/16 08:43 Ordered Assessment/Plan (1) Headache Current Visit: Yes Status: Acute Qualifiers: Headache type: unspecified Headache chronicity pattern: acute headache Intractability: intractable Qualified Code(s): R51 - Headache Assessment & Plan: Concern with different kim than usual and CN VIII abnormality. CT head stat; if nl will consider MRI brain. Code(s): R51 - HEADACHE (2) ESBL (extended spectrum beta-lactamase) producing bacteria infection Current Visit: No Status: Acute Assessment & Plan: On IV merrem. Code(s): A49.9 - BACTERIAL INFECTION, UNSPECIFIED; Z16.12 - EXTENDED SPECTRUM BETA LACTAMASE (ESBL) RESISTANCE (3) UTI (urinary tract infection) Current Visit: No Status: Acute Assessment & Plan: I spoke wiht ID, must have 14d total abx. Code(s): N39.0 - URINARY TRACT INFECTION, SITE NOT SPECIFIED (4) Chronic constipation Current Visit: No Status: Chronic Assessment & Plan: ok to take home meds. Code(s): K59.09 - OTHER CONSTIPATION
--- NOTE | 2016-09-16 09:33 | XRAY ---
Indication: Migraine headache. Multiple contiguous axial images obtained through the head without contrast. Comparison: June 26, 2011. Study slightly degraded by minimal motion artifact. No acute intracranial hemorrhage, abnormal extra-axial fluid collection, or mass effect. Fourth ventricle is midline without hydrocephalus. [place]-white matter differentiation preserved. Bony calvarium intact. Visualized paranasal sinuses and mastoid air cells are clear. Impression: Minimal motion artifact. Again no acute intracranial abnormalities. CT DI 70.10
[2016-09-16] MEDS ORDERED: NON-FORMULARY ITEM (Naloxegol Oxalate [Movantik] 25 MG) PO SCH (10:00)
[2016-09-16] MEDS ORDERED: NON-FORMULARY ITEM (Linaclotide [Linzess] 290 MCG) PO SCH (10:00)
[2016-09-16] MEDS ORDERED: PSEUDOEPHEDRINE PO SCH (10:00)
[2016-09-16] MEDS ORDERED: NON-FORMULARY ITEM (Aspirin [Aspirin] 81 MG) PO SCH (10:00)
[2016-09-16] MEDS ORDERED: CETIRIZINE HCL PO SCH (10:00)
[2016-09-16] MEDS ORDERED: NON-FORMULARY ITEM (Omeprazole [Omeprazole] 40 MG) PO SCH (10:00)
[2016-09-16] MEDS: XANAX 1 MG PO SCH ×3 (10:22→22:05)
[2016-09-16] MEDS: Senokot-S Tablet PO SCH ×2 (10:22→22:05)
[2016-09-16] MEDS: SYNTHROID 125 MCG PO SCH (10:23)
[2016-09-16] MEDS: ECOTRIN 81 MG PO SCH (10:23)
[2016-09-16] MEDS: Protonix 40MG Tablet PO SCH (10:25)
[2016-09-16] MEDS: CLARITIN-D 24HR TABLET PO SCH (10:25)
[2016-09-16] MEDS: PATIENT OWN MEDICATION PO SCH ×2 (10:31)
[2016-09-16] MEDS: CLOTRIMAZOLE PO SCH ×4 (10:49→23:49)
[2016-09-17] MEDS: Merrem 1 GM 1 G in Sodium Chloride 100ML MINI-BAG PLUS 100 ML IV SCH (06:10)
[2016-09-17] MEDS: CLOTRIMAZOLE PO SCH ×2 (07:00→12:33)
[2016-09-17] MEDS: Sodium Chloride 0.9% 1000 ML 1,000 ML IV SCH (07:43)
[2016-09-17] MEDS: SYNTHROID 125 MCG PO SCH (07:44)
[2016-09-17] MEDS: ECOTRIN 81 MG PO SCH (07:44)
[2016-09-17] MEDS: Senokot-S Tablet PO SCH (07:44)
[2016-09-17] MEDS: Protonix 40MG Tablet PO SCH (07:44)
[2016-09-17] MEDS: PATIENT OWN MEDICATION PO SCH ×2 (07:45→07:46)
[2016-09-17] MEDS: XANAX 1 MG PO SCH (07:48)
[2016-09-17] MEDS: CLARITIN-D 24HR TABLET PO SCH (07:51)
--- NOTE | 2016-09-17 09:00 | PCM.DS ---
Discharge Summary Date of Admission: 09/15/16 20:00 Admitting Physician: PAWEL JAMIL Primary Care Provider: PAWEL JAMIL Allergies Allergies codeine Allergy (Mild, Verified 09/13/16 11:39) Rash MAKES SICK sumatriptan [From Imitrex] Allergy (Verified 09/13/16 11:39) sumatriptan succinate [From Imitrex] Allergy (Verified 09/13/16 11:39) morphine Adverse Reaction (Severe, Verified 09/13/16 11:39) Headache MIGRAINES hydrocodone bitartrate [From Vicodin] Adverse Reaction (Mild, Verified 09/13/16 11:39) Vomiting fentanyl Adverse Reaction (Verified 09/13/16 11:39) Hospital Summary - Hospital Course Hospital Course: Pt was re-admitted to the hospital 2d ago for headache and vomiting, with ESBL+ UTI. She had been sent home on daily invanz IV and came back in anthony evening unable to tolerate po. This headache was worse than her usual, was treated with IV pain medicine and CT brain was done (negative). She is feeling much better this morning, just a little pain in the posterior neck (which is usual for her and for which she is seeing her chiropractor today). Feeling well and would like to d/c home. - Vitals & Intake/Output Vital Signs: Vital Signs Temperature 97.8 F 09/17/16 07:19 Pulse Rate 86 09/17/16 07:19 Respiratory Rate 20 09/17/16 07:19 Blood Pressure 98/68 09/17/16 07:19 O2 Sat by Pulse Oximetry 96 09/17/16 07:19 Intake & Output: Intake & Output 09/14/16 09/15/16 09/16/16 09/17/16 11:59 11:59 11:59 11:59 Intake Total 220 3245 Balance 220 3245 Weight 81.102 kg - Lab Result Diagrams: 09/15/16 21:13 09/15/16 21:13 - Radiology Exams Ordered Rad Exams-Entire Visit: Radiology Procedures Category Date Time Status HEAD WITHOUT CONTRAST [CT] Stat Exams 09/16/16 08:43 Completed Discharge Exam General Appearance: no apparent distress Neurologic Exam: alert, 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, cooperative Skin Exam: normal color, warm, dry Respiratory Exam: normal breath sounds, lungs clear, No crackles/rales, No rhonchi, No wheezing Cardiovascular Exam: regular rate/rhythm, normal heart sounds, No murmur Gastrointestinal/Abdomen Exam: soft, tenderness (generalized ttp), No distention , No guarding, No rebound Extremity Exam: No pedal edema, No swelling Final Diagnosis/Problem List - Final Discharge Diagnosis/Problem (1) Headache Current Visit: Yes Status: Resolved (2) ESBL (extended spectrum beta-lactamase) producing bacteria infection Current Visit: No Status: Acute Assessment & Plan: Will d/c home on invanz (invanz to be given here this morning before discharge) . Finish course as previously ordered (14d total of IV antibiotics per Dr. Carrillo) . (3) UTI (urinary tract infection) Current Visit: No Status: Acute (4) Chronic constipation Current Visit: No Status: Chronic - Discharge Disposition: Home, Self-Care Condition: Stable Prescriptions: New Ertapenem Sodium 1 gm [Invanz 1 GM] 1 g IV DAILY #0 vial Continue Rizatriptan Benzoate [Maxalt] 10 mg PO BIDPRN PRN PRN Reason: Pain Oxycodone / APAP 10/325 mg [Oxycodone-Acetaminophen 10-325] 1 tab PO Q8H PRN PRN PRN Reason: Pain Alprazolam 1 mg [Xanax 1 mg] 2 mg PO BID Linaclotide [Linzess] 290 mcg PO DAILY Polyethylene Glycol 3350 17 gm [Miralax Powder 17GM PACKET] 34 gm PO TID PRN PRN Reason: Constipation Sennosides/Docusate Sodium [Senokot-S Tablet] 2 tab PO BID Promethazine HCl 25 mg [Phenergan 25 mg] 25 mg PO Q4HPRN PRN PRN Reason: Nausea Naloxegol Oxalate [Movantik] 25 mg PO DAILY Cetirizine HCl/Pseudoephedrine [Zyrtec-D Tablet] 1 each PO DAILY Omeprazole 40 mg PO DAILY Aspirin 81 mg PO DAILY Clotrimazole [Mycelex] 10 mg MM UD Levothyroxine Sodium 0.5 tab PO DAILY Phenazopyridine HCl 200 mg [Pyridium 200 mg] 200 mg PO BID PRN PRN Reason: Pain Follow up with: PAWEL JAMIL [Primary Care Provider] - 1 Week Forms: Patient Portal Information
[2016-09-17 10:21] LABS: Mean Cell Volume 91.6 fl (78-100); Mean Platelet Volume 10.7 fl (6-9.5); Platelet Count 140 K/mm3 (150-450); Red Blood Count 3.57 M/mm3 (4.1-5.4); Red Cell Distribution Width 13.7 % (11.5-14.0); White Blood Count 3.3 K/mm3 (4.0-10.5)
[2016-09-17 10:23] LABS: Mean Corpuscular Hemoglobin 30.2 pg (26-32)
[2016-09-17 10:27] LABS: ANION GAP 12.3 MEQ/L (5-15); BLOOD UREA NITROGEN 10 mg/dL (9-20); CHLORIDE 110 mEq/L (98-107); Carbon Dioxide 23.4 mEq/L (21-32); Glucose 102 MG/DL (70-110); Potassium 3.5 mEq/L (3.5-5.1); SODIUM 142 mEq/L (136-145)
[2016-09-17] MEDS ORDERED: Invanz 1 GM*** 1 G in Sodium Chloride 100ML MINI-BAG PLUS 100 ML IV SCH (12:00)
[2016-09-17 12:29] VITALS: BP 123/80; PULSE 65; O2SAT 98
== END 2016-09-17 12:40 | disposition home or self-care (01) | DRG 103 ==
LOC: MED SURG 20:00
PROVIDERS: ADMIT Family Medicine; ATTEND Family Medicine
DX: R51 Headache (principal); N39.0 Urinary tract infection, site not specified; A49.9 Bacterial infection, unspecified; Z16.12 Extended spectrum beta lactamase (ESBL) resistance; K59.09 Other constipation; E03.9 Hypothyroidism, unspecified; M19.90 Unspecified osteoarthritis, unspecified site; K21.9 Gastro-esophageal reflux disease without esophagitis; F41.9 Anxiety disorder, unspecified
CPT/HCPCS: 36415; 70450; 80048; 80053; 83605; 85025; 85027; J1335; J1642; J1885; J2405; J2550; J3010; A9270-GY

== ENCOUNTER 2016-09-18 22:30 | Emergency (ER) | payer MEDICARE ==
[2016-09-18 22:47] VITALS: BP 112/78; PULSE 86; O2SAT 97
--- NOTE | 2016-09-18 22:49 | ERPHSYRPT ---
- History of Present Illness Time Seen by Provider: 09/18/16 22:37 Source: patient Exam Limitations: no limitations Physician History: patient here for removal of needle form port; they left it in and she cannot sleep on her front; no other compliants or issues; they have never left needle in after infusion before Timing/Duration: today Severity: mild Modifying Factors: Improves With: other (trying to sleep) Associated Symptoms: denies symptoms Allergies/Adverse Reactions: codeine Allergy (Mild, Verified 09/13/16 11:39) Rash MAKES SICK sumatriptan [From Imitrex] Allergy (Verified 09/13/16 11:39) sumatriptan succinate [From Imitrex] Allergy (Verified 09/13/16 11:39) morphine Adverse Reaction (Severe, Verified 09/13/16 11:39) Headache MIGRAINES hydrocodone bitartrate [From Vicodin] Adverse Reaction (Mild, Verified 09/13/16 11:39) Vomiting fentanyl Adverse Reaction (Verified 09/13/16 11:39) Home Medications: Alprazolam 1 mg [Xanax 1 mg] 2 mg PO BID 02/17/13 [History] Oxycodone / APAP 10/325 mg [Oxycodone-Acetaminophen 10-325] 1 tab PO Q8H PRN PRN 02/17/13 [History] Rizatriptan Benzoate [Maxalt] 10 mg PO BIDPRN PRN 02/17/13 [History] Linaclotide [Linzess] 290 mcg PO DAILY 07/13/14 [History] Polyethylene Glycol 3350 17 gm [Miralax Powder 17GM PACKET] 34 gm PO TID PRN 11/15/14 [History] Sennosides/Docusate Sodium [Senokot-S Tablet] 2 tab PO BID 04/25/15 [History] Promethazine HCl 25 mg [Phenergan 25 mg] 25 mg PO Q4HPRN PRN 05/11/15 [ History] Naloxegol Oxalate [Movantik] 25 mg PO DAILY 12/24/15 [History] Cetirizine HCl/Pseudoephedrine [Zyrtec-D Tablet] 1 each PO DAILY 02/03/16 [ History] Aspirin 81 mg PO DAILY 09/11/16 [History] Clotrimazole [Mycelex] 10 mg MM UD 09/11/16 [History] Levothyroxine Sodium 0.5 tab PO DAILY 09/11/16 [History] Omeprazole 40 mg PO DAILY 09/11/16 [History] Phenazopyridine HCl 200 mg [Pyridium 200 mg] 200 mg PO BID PRN 09/11/16 [ History] Hx Tetanus, Diphtheria Vaccination/Date Given: Yes Hx Influenza Vaccination/Date Given: Yes Hx Pneumococcal Vaccination/Date Given: No - Review of Systems Constitutional: No Symptoms Eyes: No Symptoms Ears, Nose, & Throat: No Symptoms Respiratory: No Cough, No Dyspnea, No Wheezing Cardiac: No Chest Pain, No Palpitations, No Syncope Abdominal/Gastrointestinal: No Abdominal Pain, No Nausea, No Vomiting, No Diarrhea Genitourinary Symptoms: No Symptoms Musculoskeletal: No Symptoms Neurological: No Symptoms Psychological: No Symptoms Endocrine: No Symptoms Hematologic/Lymphatic: No Symptoms Immunological/Allergic: No Symptoms - Past Medical History Pertinent Past Medical History: Yes Neurological History: Migraines ENT History: Cataracts, Other Cardiac History: No Pertinent History Respiratory History: Other Endocrine Medical History: Hypothyroidism, Other Musculoskeletal History: Arthritis, Degenerative Disk Disease, Osteoarthritis, Other GI Medical History: GERD, Irritable Bowel, Ulcer, Other History: Other Psycho-Social History: Anxiety Female Reproductive Disorders: Other Other Medical History: cystitis, chronic pseudo obstructions, has seen a certified maintenance welder recently and failed a test but pt unsure of what test it was. She states that she "loses air when I exert myself." Pt states there are no changes from previous recent admission. - Past Surgical History Past Surgical History: Yes Neuro Surgical History: No Pertinent History Cardiac: No Pertinent History Respiratory: No Pertinent History Gastrointestinal: Bowel Surgery, Cholecystectomy, Colon Resection, Hernia Repair Genitourinary: Other Musculoskeletal: No Pertinent History Female Surgical History: Hysterectomy Other Surgical History: COLONOSCOPIES, EGDs. Total colectomy. FEEDING TUBE FOR 4 YEARS, stretches of bladder and urethra, bowel obstructions x2, lithotripsy. Pt states there are no changes from previous recent admission. - Social History Smoking Status: Never smoker Exposure to second hand smoke: No Alcohol Use: None Drug Use: none Patient Lives Alone: Yes Significant Family History: no pertinent family hx - Female History Hx Now: No - Physical Exam General Appearance: mild distress, alert, thin Eye Exam: PERRL/EOMI, eyes nml inspection, No photophobia Ears, Nose, Throat Exam: normal ENT inspection, pharynx normal, moist mucous membranes Neck Exam: normal inspection, non-tender, supple Respiratory Exam: normal breath sounds, lungs clear, airway intact, other (port R uper canterior chest with needle in; noevidence of infection or bleeding), No chest tenderness, No respiratory distress Cardiovascular Exam: regular rate/rhythm, normal heart sounds, normal peripheral pulses, capillary refill <2 sec, No murmur Gastrointestinal/Abdomen Exam: soft, normal bowel sounds, No tenderness, No guarding, No rebound Pelvic Exam: deferred Rectal Exam: deferred Back Exam: normal inspection, normal range of motion, No CVA tenderness Extremity Exam: normal inspection, normal range of motion, No brooks's sign, No pedal edema Neurologic Exam: normal mood/affect, nml cerebellar function, nml station & gait , No alert, No 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, No cooperative, No transportation consultant II-XII nml as tested Skin Exam: normal color, warm, dry, No rash - Course Nursing assessment & vital signs reviewed: Yes Ordered Tests: Active Orders 24 hr Category Date Time Status Other ED Treatment STAT Care 09/18/16 22:42 Ordered Re-Check Vital Signs STAT Care 09/18/16 22:42 Ordered Wound Care STAT Care 09/18/16 22:42 Ordered Medication Summary Discontinued Medications Generic Name Dose Route Start Last Admin Trade Name Elton PRN Reason Stop Dose Admin Heparin Sodium (Beef Lung) Confirm 09/18/16 22:34 Heparin Lock Flush 100 Units/Ml 5ml Syringe Administered 09/18/16 22:35 Dose 500 units .ROUTE .VocoMD-TabbedOut ONE - Progress Progress Note: 09/18/16 22:47 nurse removed needle access under sterile conditions; patient tolerated well; instructions given 09/18/16 22:49 heparin flush performed Counseled pt/family regarding: diagnosis, need for follow-up - Departure Time of Disposition: 22:47 Departure Disposition: Home Clinical Impression: Portacath in place Condition: Stable Critical Care Time: No Additional Instructions: continue instructions as before for port care; Follow-up with family doctor as directed. Call for appointment. Return if any problems. If you smoke please stop. Call or follow up with your family doctor for assistance if you need it to stop. Please wear your seatbelt when driving. Have a nice day. Thank you for allowing us to participate in your care today. :o) Dr Bassam Pierre
[2016-09-18] MEDS ORDERED: BACIGUENT PACKET TP ONE (22:51)
== END 2016-09-18 22:53 | disposition home or self-care (01) ==
LOC: ED 22:30
DX: Z45.2 Encounter for adjustment and management of vascular access device (principal)
CPT/HCPCS: 99282; J1642

== ENCOUNTER 2016-11-20 17:40 | Emergency (ER) | payer MEDICARE ==
[2016-11-20 18:03] VITALS: O2SAT 97
[2016-11-20] MEDS ORDERED: BENADRYL 50 MG/ML IV ONE (18:04)
[2016-11-20] MEDS ORDERED: Reglan 10 MG/2 ML IV ONE (18:04)
[2016-11-20] MEDS ORDERED: TORAdol 30 mg Injection IV ONE (18:04)
--- NOTE | 2016-11-20 18:12 | ERPHSYRPT ---
- History of Present Illness Time Seen by Provider: 11/20/16 17:55 Source: patient Patient Subjective Stated Complaint: migraine all day Triage Nursing Assessment: ambulated to room per self. presents with sunglasses on. skin w/d, color normal, resp easy. patient tearful at times. Physician History: CC: headache Hx: 61 y/o patient of Dr Benz has had a typical headache for her since 9AM. No exposures. She has photophobia, nausea. Not better with chiropractor, imitrex , or phenergan. No fever or chills. Similar headache to her prior. No N/T/W. No double vision. Recent Head Trauma: frequent headaches Allergies/Adverse Reactions: codeine Allergy (Mild, Verified 11/20/16 17:56) Rash MAKES SICK sumatriptan [From Imitrex] Allergy (Verified 11/20/16 17:56) sumatriptan succinate [From Imitrex] Allergy (Verified 11/20/16 17:56) morphine Adverse Reaction (Severe, Verified 11/20/16 17:56) Headache MIGRAINES hydrocodone bitartrate [From Vicodin] Adverse Reaction (Mild, Verified 11/20/16 17:56) Vomiting fentanyl Adverse Reaction (Verified 11/20/16 17:56) Home Medications: Alprazolam 1 mg [Xanax 1 mg] 2 mg PO BID 02/17/13 [History] Oxycodone / APAP 10/325 mg [Oxycodone-Acetaminophen 10-325] 1 tab PO Q8H PRN PRN 02/17/13 [History] Rizatriptan Benzoate [Maxalt] 10 mg PO BIDPRN PRN 02/17/13 [History] Linaclotide [Linzess] 290 mcg PO DAILY 07/13/14 [History] Polyethylene Glycol 3350 17 gm [Miralax Powder 17GM PACKET] 34 gm PO TID PRN 11/15/14 [History] Sennosides/Docusate Sodium [Senokot-S Tablet] 2 tab PO BID 04/25/15 [History] Promethazine HCl 25 mg [Phenergan 25 mg] 25 mg PO Q4HPRN PRN 05/11/15 [ History] Naloxegol Oxalate [Movantik] 25 mg PO DAILY 12/24/15 [History] Cetirizine HCl/Pseudoephedrine [Zyrtec-D Tablet] 1 each PO DAILY 02/03/16 [ History] Aspirin 81 mg PO DAILY 09/11/16 [History] Levothyroxine Sodium 0.5 tab PO DAILY 09/11/16 [History] Omeprazole 40 mg PO DAILY 09/11/16 [History] Phenazopyridine HCl 200 mg [Pyridium 200 mg] 200 mg PO BID PRN 09/11/16 [ History] Hx Tetanus, Diphtheria Vaccination/Date Given: Yes Hx Influenza Vaccination/Date Given: Yes Hx Pneumococcal Vaccination/Date Given: No - Review of Systems Constitutional: No Fever, No Chills Eyes: Photophobia, No Vision Changes Ears, Nose, & Throat: No Symptoms Respiratory: No Symptoms Cardiac: No Chest Pain Abdominal/Gastrointestinal: Nausea, No Abdominal Pain Musculoskeletal: No Back Pain, No Neck Pain, No Fall, No Injury Neurological: Headache, No Focal Weakness, No Parasthesia All Other Systems: Reviewed and Negative - Past Medical History Pertinent Past Medical History: Yes Neurological History: Migraines ENT History: Cataracts, Other Cardiac History: No Pertinent History Respiratory History: Other Endocrine Medical History: Hypothyroidism, Other Musculoskeletal History: Arthritis, Degenerative Disk Disease, Osteoarthritis, Other GI Medical History: GERD, Irritable Bowel, Ulcer, Other History: Other Psycho-Social History: Anxiety Female Reproductive Disorders: Other - Past Surgical History Past Surgical History: Yes Neuro Surgical History: No Pertinent History Cardiac: No Pertinent History Respiratory: No Pertinent History Gastrointestinal: Bowel Surgery, Cholecystectomy, Colon Resection, Hernia Repair Genitourinary: Other Musculoskeletal: No Pertinent History Female Surgical History: Hysterectomy Other Surgical History: COLONOSCOPIES, EGDs. Total colectomy. FEEDING TUBE FOR 4 YEARS, stretches of bladder and urethra, bowel obstructions x2, lithotripsy. Pt states there are no changes from previous recent admission. - Social History Smoking Status: Never smoker Exposure to second hand smoke: No Alcohol Use: None Drug Use: none Patient Lives Alone: Yes ([place]) Significant Family History: no pertinent family hx - Female History Hx Now: No - Nursing Vital Signs Nursing Vital Signs: Initial Vital Signs Temperature 98.5 F 11/20/16 17:51 Pulse Rate 111 H 11/20/16 17:51 Respiratory Rate 18 11/20/16 17:51 Blood Pressure 128/78 11/20/16 17:51 O2 Sat by Pulse Oximetry 97 11/20/16 17:51 Pain Scale Pain Intensity 8 - Physical Exam General Appearance: alert Eye Exam: PERRL/EOMI, photophobia Ears, Nose, Throat Exam: normal ENT inspection, moist mucous membranes Neck Exam: normal inspection, non-tender, supple Respiratory Exam: normal breath sounds, lungs clear Cardiovascular Exam: regular rate/rhythm Gastrointestinal/Abdominal Exam: soft, No tenderness, No distention 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, 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, cooperative poultry helper Exam: normal hearing, normal speech, PERRL Coordination/Gait Exam: normal cerebellar function Motor/Sensory Exam: no motor deficit, no sensory deficit Skin Exam: warm, dry, No rash SpO2 Interpretation: normal SpO2: 97 Oxygen Delivery: Room Air - Course Nursing assessment & vital signs reviewed: Yes Ordered Tests: Active Orders 24 hr Category Date Time Status IV Insertion STAT Care 11/20/16 18:04 Active Medication Summary Generic Name Dose Route Start Last Admin Trade Name Freq PRN Reason Stop Dose Admin Sodium Chloride 1,000 mls @ 100 mls/hr 11/20/16 18:15 11/20/16 18:21 Sodium Chloride 0.9% 1000 Ml IV 12/20/16 18:14 100 mls/hr .Q10H JENNIFER Administration Discontinued Medications Generic Name Dose Route Start Last Admin Trade Name Freq PRN Reason Stop Dose Admin Diphenhydramine HCl 25 mg 11/20/16 18:04 11/20/16 18:20 Benadryl 50 Mg/Ml IV 11/20/16 18:05 25 mg STAT ONE Administration Diphenhydramine HCl Confirm 11/20/16 18:18 Benadryl 50 Mg/Ml Administered 11/20/16 18:19 Dose 50 mg .ROUTE .STK-MED ONE Ketorolac Tromethamine 30 mg 11/20/16 18:04 11/20/16 18:20 Toradol 30 Mg Injection IV 11/20/16 18:05 30 mg STAT ONE Administration Ketorolac Tromethamine Confirm 11/20/16 18:18 Toradol 30 Mg Injection Administered 11/20/16 18:19 Dose 30 mg .ROUTE .STK-MED ONE Metoclopramide HCl 10 mg 11/20/16 18:04 11/20/16 18:20 Reglan 10 Mg/2 Ml IV 11/20/16 18:05 10 mg STAT ONE Administration Metoclopramide HCl Confirm 11/20/16 18:18 Reglan 10 Mg/2 Ml Administered 11/20/16 18:19 Dose 10 mg .ROUTE .STK-MED ONE - Progress Progress Note: 11/20/16 18:50 Headache improved after IV benadryl, reglan, toradol. Will release with KIM instr. She ambulated to BR without difficultly. Counseled pt/family regarding: diagnosis, need for follow-up - Departure Time of Disposition: 18:51 Departure Disposition: Home Clinical Impression: Migraine headache Qualifiers: Migraine type: without aura Status migrainosus presence: with status migrainosus Intractability: not intractable Qualified Code(s): G43.001 - Migraine without aura, not intractable, with status migrainosus Condition: Stable Critical Care Time: No Referrals: PAWEL BENZ [Primary Care Provider] - Instructions: Headache Additional Instructions: HEADACHE 1. After discharge from the emergency department, you should rest at home in a cool, dark, quiet place for 12-24 hours. 2. If any of the following signs or symptoms are noticed, you should be re- evaluated right away: A. Visual changes B. Stiff Neck C. Change in quality or location of pain D. Fever E. Recurrent vomiting 3. If pain medications were prescribed or given, they may cause drowsiness. No driving today. Sip fluids.
[2016-11-20] MEDS ORDERED: Sodium Chloride 0.9% 1000 ML 1,000 ML IV SCH (18:15)
[2016-11-20] MEDS ORDERED: BENADRYL 50 MG/ML ONE (18:18)
[2016-11-20] MEDS ORDERED: Reglan 10 MG/2 ML ONE (18:18)
[2016-11-20] MEDS ORDERED: Sodium Chloride 0.9% 1000 ML 1,000 ML ONE (18:18)
[2016-11-20] MEDS ORDERED: TORAdol 30 mg Injection ONE (18:18)
[2016-11-20 18:57] VITALS: BP 96/62; PULSE 96
== END 2016-11-20 19:13 | disposition home or self-care (01) ==
LOC: ED 17:40
DX: G43.001 Migraine without aura, not intractable, with status migrainosus (principal)
CPT/HCPCS: 36000; 96360; 96374; 96375; 99284; J1200; J1885

== ENCOUNTER 2016-12-12 19:07 | Emergency (ER) | payer MEDICARE ==
[2016-12-12 19:44] LABS: Collection Type CLEAN CATCH; Leukocyte Esterase COLOR INTERFERENCE (NEGATIVE)
[2016-12-12 19:45] LABS: Bilirubin COLOR INTERFERENCE (NEGATIVE); Blood COLOR INTERFERENCE Ery/ul (0-5); COMPLETE URINE MICROSCOPIC? YES; Glucose COLOR INTERFERENCE mg/dL (NEGATIVE)
[2016-12-12 19:56] LABS: WBC 25-50 /HPF (0-5)
[2016-12-12 19:57] LABS: Bacteria FEW /HPF (NEGATIVE); Epithelial Cells FEW /HPF (FEW)
--- NOTE | 2016-12-12 20:48 | ERPHSYRPT ---
- History of Present Illness Time Seen by Provider: 12/12/16 20:11 Source: patient Patient Subjective Stated Complaint: pt has been off and on antibiotics since oct for uti and extended beta lactamase since oct -she is seeing dr denton and dr quinton stovall she is having pain in lower abd and burning with urination - she has taken meropenum,augmentin and levaquin - no fever -co being "backed up " she had a sm bm this am and has vomited 2 times last night and has eaten chicken broth and jello today Triage Nursing Assessment: pt is awake and alert and very anxious -rapid resp and hoding her abd as she walks Physician History: CC: dysuria Hx: Pt of Dr Licea urology, Dr Benz FP, and Dr Denton ID. She has recurrent UTI. Has had ESBL Klebsiella. She was treated thru IV abtx in infusion center. She recently took a course of levaquin which is now finished. She has return of UTI symptoms with urinary pressure, burning with urine, frequent urination. Vomited yesterday. No fever or chills. No abd or unusual back pain. She has restarted pydridium. No hx of DM. Allergic to macrobid. Allergies/Adverse Reactions: codeine Allergy (Mild, Verified 12/12/16 19:38) Rash MAKES SICK sumatriptan [From Imitrex] Allergy (Verified 12/12/16 19:38) sumatriptan succinate [From Imitrex] Allergy (Verified 12/12/16 19:38) morphine Adverse Reaction (Severe, Verified 12/12/16 19:38) Headache MIGRAINES hydrocodone bitartrate [From Vicodin] Adverse Reaction (Mild, Verified 12/12/16 19:38) Vomiting fentanyl Adverse Reaction (Verified 12/12/16 19:38) Home Medications: Alprazolam 1 mg [Xanax 1 mg] 2 mg PO BID 02/17/13 [History] Oxycodone / APAP 10/325 mg [Oxycodone-Acetaminophen 10-325] 1 tab PO Q8H PRN PRN 02/17/13 [History] Rizatriptan Benzoate [Maxalt] 10 mg PO BIDPRN PRN 01/03/14 [History] Linaclotide [Linzess] 290 mcg PO DAILY 07/13/14 [History] Polyethylene Glycol 3350 17 gm [Miralax Powder 17GM PACKET] 34 gm PO TID PRN 11/15/14 [History] Sennosides/Docusate Sodium [Senokot-S Tablet] 2 tab PO BID 04/25/15 [History] Promethazine HCl 25 mg [Phenergan 25 mg] 25 mg PO Q4HPRN PRN 05/11/15 [ History] Naloxegol Oxalate [Movantik] 25 mg PO DAILY 12/24/15 [History] Cetirizine HCl/Pseudoephedrine [Zyrtec-D Tablet] 1 each PO DAILY 02/03/16 [ History] Aspirin 81 mg PO DAILY 09/11/16 [History] Levothyroxine Sodium 0.5 tab PO DAILY 09/11/16 [History] Omeprazole 40 mg PO DAILY 09/11/16 [History] Phenazopyridine HCl 200 mg [Pyridium 200 mg] 200 mg PO BID PRN 09/11/16 [ History] Hx Tetanus, Diphtheria Vaccination/Date Given: Yes Hx Influenza Vaccination/Date Given: Yes Hx Pneumococcal Vaccination/Date Given: No - Review of Systems Constitutional: Malaise, No Fever, No Chills Eyes: No Symptoms Ears, Nose, & Throat: No Symptoms Respiratory: No Cough, No Dyspnea Cardiac: No Chest Pain Abdominal/Gastrointestinal: Vomiting (yesterday X 1), No Abdominal Pain Musculoskeletal: No Back Pain Skin: No Rash Neurological: No Headache All Other Systems: Reviewed and Negative - Past Medical History Pertinent Past Medical History: Yes Neurological History: Migraines ENT History: Cataracts, Other Cardiac History: No Pertinent History Respiratory History: Other Endocrine Medical History: Hypothyroidism, Other Musculoskeletal History: Arthritis, Degenerative Disk Disease, Osteoarthritis, Other GI Medical History: GERD, Irritable Bowel, Ulcer, Other History: Other Psycho-Social History: Anxiety Female Reproductive Disorders: Other Other Medical History: Recurrent UTI - Past Surgical History Past Surgical History: Yes Neuro Surgical History: No Pertinent History Cardiac: No Pertinent History Respiratory: No Pertinent History Gastrointestinal: Bowel Surgery, Cholecystectomy, Colon Resection, Hernia Repair Genitourinary: Other Musculoskeletal: No Pertinent History Female Surgical History: Hysterectomy Other Surgical History: COLONOSCOPIES, EGDs. Total colectomy. FEEDING TUBE FOR 4 YEARS, stretches of bladder and urethra, bowel obstructions x2, lithotripsy. Pt states there are no changes from previous recent admission. - Social History Smoking Status: Never smoker Exposure to second hand smoke: No Alcohol Use: None Drug Use: none Patient Lives Alone: Yes ([facility]) Significant Family History: no pertinent family hx - Female History Hx Last Menstrual Period: na Hx Now: No - Nursing Vital Signs Nursing Vital Signs: Initial Vital Signs Temperature 98.7 F 12/12/16 19:22 Pulse Rate 116 H 12/12/16 19:22 Respiratory Rate 20 12/12/16 19:22 Blood Pressure 115/81 12/12/16 19:22 O2 Sat by Pulse Oximetry 97 12/12/16 19:22 Pain Scale Pain Intensity 10 - Physical Exam General Appearance: alert Eye Exam: PERRL/EOMI Ears, Nose, Throat Exam: normal ENT inspection, moist mucous membranes Neck Exam: normal inspection, non-tender, supple Respiratory Exam: normal breath sounds Cardiovascular Exam: regular rate/rhythm Gastrointestinal/Abdomen Exam: soft, No tenderness, No distention Back Exam: normal inspection Extremity Exam: normal inspection, normal range of motion Neurologic Exam: alert, 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, cooperative, sensation nml, No motor deficits Skin Exam: warm, dry, No rash SpO2 Interpretation: normal SpO2: 94 Oxygen Delivery: Room Air - Course Nursing assessment & vital signs reviewed: Yes Ordered Tests: Active Orders 24 hr Category Date Time Status Clean Catch Urine Specimen STAT Care 12/12/16 19:35 Active IV Insertion STAT Care 12/12/16 20:17 Active CBC W DIFF Stat Lab 12/12/16 20:40 Completed CMP Stat Lab 12/12/16 20:40 Completed CULTURE,URINE Stat Lab 12/12/16 19:40 Received Lactic Acid Stat Lab 12/12/16 20:44 Completed UA W/ MICROSCOPIC Stat Lab 12/12/16 19:35 Completed Medication Summary Generic Name Dose Route Start Last Admin Trade Name Freq PRN Reason Stop Dose Admin Ertapenem 1 g/ Sodium Chloride 100 mls @ 200 mls/hr 12/12/16 21:50 IV 12/12/16 22:19 STAT STA Lab/Rad Data: Laboratory Result Diagrams 12/12/16 20:40 12/12/16 20:40 Laboratory Results 12/12/16 12/12/16 12/12/16 Range/Units 20:44 20:40 20:40 WBC 4.3 (4.0-10.5) K/mm3 RBC 3.75 L (4.1-5.4) M/mm3 Hgb 11.6 L (12.0-16.0) gm/dl Hct 35.8 (35-47) % MCV 95.5 (78-100) fl MCH 30.9 (26-32) pg MCHC 32.4 (32-36) g/dl RDW 13.0 (11.5-14.0) % Plt Count 173 (150-450) K/mm3 MPV 10.4 H (6-9.5) fl Gran % 61.8 (36.0-66.0) % Lymphocytes % 26.1 (24.0-44.0) % Monocytes % 9.1 (0.0-12.0) % Eosinophils % 2.3 (0.00-5.0) % Basophils % 0.7 (0.0-0.4) % Basophils # 0.03 (0-0.4) Sodium 141 (136-145) mEq/L Potassium 4.2 (3.5-5.1) mEq/L Chloride 107 (98-107) mEq/L Carbon Dioxide 24.6 (21-32) mEq/L Anion Gap 13.2 (5-15) MEQ/L BUN 22 H (9-20) mg/dL Creatinine 1.15 (0.55-1.30) mg/dl Estimated GFR 51 ML/MIN Glucose 109 (70-110) MG/DL Lactic Acid 1.1 (0.4-2.0) Calcium 8.4 L (8.5-10.1) mg/dL Total Bilirubin 0.30 (0.2-1.0) mg/dL AST 25 (15-37) U/L ALT 21 (12-78) U/L Alkaline Phosphatase 88 (46-116) U/L Serum Total Protein 6.7 (6.4-8.2) gm/dL Albumin 3.4 (3.4-5.0) g/dL Ur Collection Type Urine Color (YELLOW) Urine Appearance (CLEAR) Urine pH (5-6) Ur Specific [place] (1.005-1.025) Urine Protein (Negative) Urine Ketones (NEGATIVE) Urine Blood (0-5) Aroldo/ul Urine Nitrite (NEGATIVE) Urine Bilirubin (NEGATIVE) Urine Urobilinogen (0-1) mg/dL Ur Leukocyte Esterase (NEGATIVE) Urine Microscopic RBC (0-2) /HPF Urine Microscopic WBC (0-5) /HPF Ur Epithelial Cells (FEW) /HPF Urine Bacteria (NEGATIVE) /HPF Urine Glucose (NEGATIVE) mg/dL Specimen Received 12/12/16 Range/Units 19:35 WBC (4.0-10.5) K/mm3 RBC (4.1-5.4) M/mm3 Hgb (12.0-16.0) gm/dl Hct (35-47) % MCV (78-100) fl MCH (26-32) pg MCHC (32-36) g/dl RDW (11.5-14.0) % Plt Count (150-450) K/mm3 MPV (6-9.5) fl Gran % (36.0-66.0) % Lymphocytes % (24.0-44.0) % Monocytes % (0.0-12.0) % Eosinophils % (0.00-5.0) % Basophils % (0.0-0.4) % Basophils # (0-0.4) Sodium (136-145) mEq/L Potassium (3.5-5.1) mEq/L Chloride (98-107) mEq/L Carbon Dioxide (21-32) mEq/L Anion Gap (5-15) MEQ/L BUN (9-20) mg/dL Creatinine (0.55-1.30) mg/dl Estimated GFR ML/MIN Glucose (70-110) MG/DL Lactic Acid (0.4-2.0) Calcium (8.5-10.1) mg/dL Total Bilirubin (0.2-1.0) mg/dL AST (15-37) U/L ALT (12-78) U/L Alkaline Phosphatase (46-116) U/L Serum Total Protein (6.4-8.2) gm/dL Albumin (3.4-5.0) g/dL Ur Collection Type CLEAN CATCH Urine Color ORANGE (YELLOW) Urine Appearance SLIGHTLY CLOUDY (CLEAR) Urine pH COLOR INTERFERENCE (5-6) Ur Specific [place] COLOR INTERFERENCE (1.005-1.025) Urine Protein COLOR INTERFERENCE (Negative) Urine Ketones COLOR INTERFERENCE (NEGATIVE) Urine Blood COLOR INTERFERENCE (0-5) Aroldo/ul Urine Nitrite COLOR INTERFERENCE (NEGATIVE) Urine Bilirubin COLOR INTERFERENCE (NEGATIVE) Urine Urobilinogen COLOR INTERFERENCE (0-1) mg/dL Ur Leukocyte Esterase COLOR INTERFERENCE (NEGATIVE) Urine Microscopic RBC 5-10 (0-2) /HPF Urine Microscopic WBC 25-50 (0-5) /HPF Ur Epithelial Cells FEW (FEW) /HPF Urine Bacteria FEW (NEGATIVE) /HPF Urine Glucose COLOR INTERFERENCE (NEGATIVE) mg/dL Specimen Received 12/12/16 1935 - Progress Progress Note: 12/12/16 21:54 Reviewed prior culture this week. It is ESBL Klebsiella. Called her ID doctor Gerardo who advised invanz 1 gram IV dailyu for 10 days and follow up with urology. Counseled pt/family regarding: lab results, diagnosis, need for follow-up - Departure Time of Disposition: 21:55 Departure Disposition: Home Clinical Impression: ESBL (extended spectrum beta-lactamase) producing bacteria infection, UTI ( urinary tract infection) Condition: Stable Critical Care Time: No Referrals: PAWEL BENZ [Primary Care Provider] - AAMIR DENTON MD [COURTESY STAFF] - ERICK LICEA [COURTESY STAFF] - Instructions: Urinary Tract Infection (UTI) Additional Instructions: Invanz 1 gram IV daily in infusion center for 10 days. Follow up with Dr Denton and Dr Licea.
[2016-12-12 20:56] LABS: BASOPHIL % 0.7 % (0.0-0.4); Eosinophil % 2.3 % (0.00-5.0); Granulocytes % 61.8 % (36.0-66.0); Lymphocytes % 26.1 % (24.0-44.0); Mean Cell Volume 95.5 fl (78-100); Mean Corpuscular Hemoglobin 30.9 pg (26-32); Mean Platelet Volume 10.4 fl (6-9.5); Monocytes % 9.1 % (0.0-12.0); Platelet Count 173 K/mm3 (150-450); Red Blood Count 3.75 M/mm3 (4.1-5.4); White Blood Count 4.3 K/mm3 (4.0-10.5)
[2016-12-12 21:15] LABS: ALBUMIN 3.4 g/dL (3.4-5.0); ANION GAP 13.2 MEQ/L (5-15); BILIRUBIN,TOTAL 0.3 mg/dL (0.2-1.0); Carbon Dioxide 24.6 mEq/L (21-32); Potassium 4.2 mEq/L (3.5-5.1); Total Protein 6.7 gm/dL (6.4-8.2)
[2016-12-12] MEDS ORDERED: Invanz 1 GM*** 1 G in Sodium Chloride 100ML MINI-BAG PLUS 100 ML IV STA (21:50)
[2016-12-12 22:57] VITALS: BP 132/83; PULSE 84; O2SAT 95
== END 2016-12-12 23:00 | disposition home or self-care (01) ==
LOC: ED 19:07
DX: N39.0 Urinary tract infection, site not specified (principal); Z16.12 Extended spectrum beta lactamase (ESBL) resistance
CPT/HCPCS: 36000; 36415; 80053; 81000; 83605; 85025; 87077; 87086; 87186; 96360; 96365; 99284; J1335; J1642

== ENCOUNTER 2016-12-20 09:20 | Emergency (ER) | payer MEDICARE ==
[2016-12-20] MEDS ORDERED: Sodium Chloride 0.9% 1000 ML 1,000 ML IV STA (09:49)
[2016-12-20] MEDS ORDERED: Protonix 40MG Tablet PO ONE (09:49)
[2016-12-20] MEDS ORDERED: MORPHINE SULFATE 4 MG INJ IV ONE (09:49)
--- NOTE | 2016-12-20 09:49 | ERPHSYRPT ---
- History of Present Illness Time Seen by Provider: 12/20/16 09:35 Historian: patient Exam Limitations: no limitations Patient Subjective Stated Complaint: To er c/o abd pain and "gaulding to groin and vagina" pt states vomiting x 1 day and increased nausea following IV therapy in outpatient today Triage Nursing Assessment: c/o constant dull pain to mid abd reports n/v present x 24 hour. C/o burning constant pain to vaginal area states spotting blood x 9 days. pt arrives p/w/d resp easy non labored axo3 Physician History: 61 y/o female comes to the ER with complaints of lower abdominal pain, nausea, vomiting, constipation and burning with urination. Pt is currently on Invanz for ESBL UTI. Pt admits to feeling very weak. Pt describes the pain as sharp, constant, 9/10, and pt has not taken any pain meds. Pt denies any fever, chills , chest pain, shortness of breath, or palpitations. Timing/Duration: today Activities at Onset: none Quality: sharpness Abdominal Pain Onset Location: suprapubic Pain Radiation: no radiation Severity of Pain-Max: severe Severity of Pain-Current: severe Modifying Factors: Improves With: nothing Associated Symptoms: denies symptoms Previous symptoms: same symptoms as today Allergies/Adverse Reactions: codeine Allergy (Mild, Verified 12/17/16 00:16) Rash MAKES SICK sumatriptan [From Imitrex] Allergy (Verified 12/17/16 00:16) sumatriptan succinate [From Imitrex] Allergy (Verified 12/17/16 00:16) morphine Adverse Reaction (Severe, Verified 12/17/16 00:16) Headache MIGRAINES hydrocodone bitartrate [From Vicodin] Adverse Reaction (Mild, Verified 12/17/16 00:16) Vomiting fentanyl Adverse Reaction (Verified 12/17/16 00:16) Home Medications: Alprazolam 1 mg [Xanax 1 mg] 2 mg PO BID 02/17/13 [History] Rizatriptan Benzoate [Maxalt] 10 mg PO BIDPRN PRN 02/17/13 [History] Linaclotide [Linzess] 290 mcg PO DAILY 07/13/14 [History] Polyethylene Glycol 3350 17 gm [Miralax Powder 17GM PACKET] 34 gm PO TID PRN 11/15/14 [History] Sennosides/Docusate Sodium [Senokot-S Tablet] 2 tab PO BID 04/25/15 [History] Promethazine HCl 25 mg [Phenergan 25 mg] 25 mg PO Q4HPRN PRN 05/11/15 [ History] Naloxegol Oxalate [Movantik] 25 mg PO DAILY 12/24/15 [History] Cetirizine HCl/Pseudoephedrine [Zyrtec-D Tablet] 1 each PO DAILY 02/03/16 [ History] Aspirin 81 mg PO DAILY 09/11/16 [History] Levothyroxine Sodium 0.5 tab PO DAILY 09/11/16 [History] Omeprazole 40 mg PO DAILY 09/11/16 [History] Phenazopyridine HCl 200 mg [Pyridium 200 mg] 200 mg PO BID PRN 09/11/16 [ History] Ciprofloxacin [Cipro 500 MG] 500 mg PO BID 12/16/16 [History] Oxycodone HCl 10 mg PO Q8H PRN PRN 12/16/16 [History] Hx Tetanus, Diphtheria Vaccination/Date Given: No Hx Influenza Vaccination/Date Given: Yes Hx Pneumococcal Vaccination/Date Given: No - Review of Systems Constitutional: No Fever, No Chills Eyes: No Symptoms Ears, Nose, & Throat: No Symptoms Respiratory: No Cough, No Dyspnea Cardiac: No Chest Pain, No Edema, No Syncope Abdominal/Gastrointestinal: Abdominal Pain, Nausea, Vomiting, Constipation, No Diarrhea Genitourinary Symptoms: Dysuria, Frequency Musculoskeletal: No Back Pain, No Neck Pain Skin: No Rash Neurological: No Dizziness, No Focal Weakness, No Sensory Changes Psychological: No Symptoms Endocrine: No Symptoms All Other Systems: Reviewed and Negative - Past Medical History Pertinent Past Medical History: Yes Neurological History: Migraines ENT History: Cataracts, Other Cardiac History: No Pertinent History Respiratory History: Other Endocrine Medical History: Hypothyroidism, Other Musculoskeletal History: Arthritis, Degenerative Disk Disease, Osteoarthritis, Other GI Medical History: GERD, Irritable Bowel, Ulcer, Other History: Other Psycho-Social History: Anxiety Female Reproductive Disorders: Other Other Medical History: Recurrent UTI,urine kidney/bladder problems recurrent - Past Surgical History Past Surgical History: Yes Neuro Surgical History: No Pertinent History Cardiac: No Pertinent History Respiratory: No Pertinent History Gastrointestinal: Bowel Surgery, Cholecystectomy, Colon Resection, Hernia Repair Genitourinary: Other Musculoskeletal: No Pertinent History Female Surgical History: Hysterectomy Other Surgical History: COLONOSCOPIES, EGDs. Total colectomy. FEEDING TUBE FOR 4 YEARS, stretches of bladder and urethra, bowel obstructions x2, lithotripsy. - Social History Smoking Status: Never smoker Exposure to second hand smoke: No Alcohol Use: None Drug Use: none Patient Lives Alone: No Significant Family History: no pertinent family hx - Female History Hx Now: No - Nursing Vital Signs Nursing Vital Signs: Initial Vital Signs Temperature 98.8 F 12/20/16 09:29 Pulse Rate 88 12/20/16 09:29 Respiratory Rate 18 12/20/16 09:29 Blood Pressure 104/68 12/20/16 09:29 O2 Sat by Pulse Oximetry 94 L 12/20/16 09:29 Pain Scale Pain Intensity 2 - Physical Exam General Appearance: no apparent distress, alert Eye Exam: PERRL/EOMI, eyes nml inspection Ears, Nose, Throat Exam: normal ENT inspection, pharynx normal, moist mucous membranes Neck Exam: normal inspection, non-tender, supple, full range of motion Respiratory Exam: normal breath sounds, lungs clear, No respiratory distress Cardiovascular Exam: regular rate/rhythm, normal heart sounds Gastrointestinal/Abdomen Exam: soft, normal bowel sounds, tenderness, distention , No mass Back Exam: normal inspection, normal range of motion, No CVA tenderness, No vertebral tenderness Extremity Exam: normal inspection, normal range of motion, pelvis stable Neurologic Exam: alert, 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, cooperative, normal mood/affect, nml cerebellar function, sensation nml, No motor deficits Skin Exam: normal color, warm, dry SpO2: 94 Oxygen Delivery: Room Air - Course Nursing assessment & vital signs reviewed: Yes Ordered Tests: Active Orders 24 hr Category Date Time Status IV Insertion STAT Care 12/20/16 09:49 Active NPO (ED) STAT Care 12/20/16 09:49 Active ABDOMEN AND PELVIS W/0 CONTRAS [CT] Stat Exams 12/20/16 09:50 Taken AMYLASE Stat Lab 12/20/16 10:10 Completed BLOOD CULTURE Stat Lab 12/20/16 10:10 Received CBC W DIFF Stat Lab 12/20/16 10:10 Completed CMP Stat Lab 12/20/16 10:10 Completed CULTURE,URINE Stat Lab 12/20/16 10:40 Received LIPASE Stat Lab 12/20/16 10:10 Completed Lactic Acid Stat Lab 12/20/16 09:49 Completed UA W/ MICROSCOPIC Stat Lab 12/20/16 10:40 Completed Medication Summary Discontinued Medications Generic Name Dose Route Start Last Admin Trade Name Elton PRN Reason Stop Dose Admin Albuterol Sulfate Confirm 12/20/16 10:28 Proventil 2.5 Mg/3 Ml Neb Administered 12/20/16 10:29 Dose 2.5 mg IH .STK-MED ONE Hydromorphone HCl 1 mg 12/20/16 10:12 12/20/16 10:27 Hydromorphone 1 Mg/Ml Ampule IV 12/20/16 10:13 Not Given STAT ONE Sodium Chloride 1,000 mls @ 999 mls/hr 12/20/16 09:49 12/20/16 10:07 Sodium Chloride 0.9% 1000 Ml IV 12/20/16 10:49 999 mls/hr .Q1H1M STA Administration Sodium Chloride Confirm 12/20/16 09:56 Sodium Chloride 0.9% 1000 Ml Administered 12/20/16 09:57 Dose 1,000 mls @ ud .ROUTE .STK-MED ONE Ketorolac Tromethamine 30 mg 12/20/16 10:14 12/20/16 10:26 Toradol 30 Mg Injection IV 12/20/16 10:15 30 mg STAT ONE Administration Ketorolac Tromethamine Confirm 12/20/16 10:19 Toradol 30 Mg Injection Administered 12/20/16 10:20 Dose 30 mg .ROUTE .STK-MED ONE Morphine Sulfate 4 mg 12/20/16 09:49 12/20/16 10:27 Morphine Sulfate 4 Mg Inj IV 12/20/16 09:50 Not Given STAT ONE Morphine Sulfate Confirm 12/20/16 09:56 Morphine Sulfate 4 Mg Inj Administered 12/20/16 09:57 Dose 4 mg .ROUTE .STK-MED ONE Pantoprazole Sodium 40 mg 12/20/16 09:49 12/20/16 10:08 Protonix 40mg Tablet PO 12/20/16 09:50 40 mg STAT ONE Administration Pantoprazole Sodium Confirm 12/20/16 09:55 Protonix 40mg Tablet Administered 12/20/16 09:56 Dose 40 mg .ROUTE .STK-MED ONE Lab/Rad Data: Laboratory Result Diagrams 12/20/16 10:10 12/20/16 10:10 Laboratory Results 12/20/16 12/20/16 12/20/16 Range/Units 10:40 10:10 10:10 WBC 3.1 L (4.0-10.5) K/mm3 RBC 4.17 (4.1-5.4) M/mm3 Hgb 13.0 (12.0-16.0) gm/dl Hct 38.8 (35-47) % MCV 93.0 (78-100) fl MCH 31.2 (26-32) pg MCHC 33.5 (32-36) g/dl RDW 12.5 (11.5-14.0) % Plt Count 163 (150-450) K/mm3 MPV 10.2 H (6-9.5) fl Gran % 62.5 (36.0-66.0) % Lymphocytes % 24.9 (24.0-44.0) % Monocytes % 9.4 (0.0-12.0) % Eosinophils % 2.9 (0.00-5.0) % Basophils % 0.3 (0.0-0.4) % Basophils # 0.01 (0-0.4) Sodium 141 (136-145) mEq/L Potassium 4.3 (3.5-5.1) mEq/L Chloride 108 H (98-107) mEq/L Carbon Dioxide 21.0 (21-32) mEq/L Anion Gap 16.3 H (5-15) MEQ/L BUN 18 (9-20) mg/dL Creatinine 1.27 (0.55-1.30) mg/dl Estimated GFR 45 ML/MIN Glucose 89 (70-110) MG/DL Lactic Acid (0.4-2.0) Calcium 9.0 (8.5-10.1) mg/dL Total Bilirubin 0.30 (0.2-1.0) mg/dL AST 24 (15-37) U/L ALT 25 (12-78) U/L Alkaline Phosphatase 96 (46-116) U/L Serum Total Protein 7.4 (6.4-8.2) gm/dL Albumin 3.7 (3.4-5.0) g/dL Amylase 61 (25-115) U/L Lipase 203 (73-393) U/L Ur Collection Type CLEAN CATCH Urine Color YELLOW (YELLOW) Urine Appearance CLEAR (CLEAR) Urine pH 5.0 (5-6) Ur Specific [place] 1.015 (1.005-1.025) Urine Protein NEGATIVE (Negative) Urine Ketones NEGATIVE (NEGATIVE) Urine Blood NEGATIVE (0-5) Aroldo/ul Urine Nitrite NEGATIVE (NEGATIVE) Urine Bilirubin NEGATIVE (NEGATIVE) Urine Urobilinogen NORMAL (0-1) mg/dL Ur Leukocyte Esterase 1+ (NEGATIVE) Urine Microscopic WBC 5-10 (0-5) /HPF Ur Epithelial Cells MODERATE (FEW) /HPF Urine Bacteria FEW (NEGATIVE) /HPF Hyaline Casts 2-5 (0-2) /LPF Urine Yeast MODERATE (NEGATIVE) /HPF Urine Culture Reflexed YES (NO) Urine Glucose NEGATIVE (NEGATIVE) mg/dL Specimen Received 12/20/16 1040 12/20/16 Range/Units 09:49 WBC (4.0-10.5) K/mm3 RBC (4.1-5.4) M/mm3 Hgb (12.0-16.0) gm/dl Hct (35-47) % MCV (78-100) fl MCH (26-32) pg MCHC (32-36) g/dl RDW (11.5-14.0) % Plt Count (150-450) K/mm3 MPV (6-9.5) fl Gran % (36.0-66.0) % Lymphocytes % (24.0-44.0) % Monocytes % (0.0-12.0) % Eosinophils % (0.00-5.0) % Basophils % (0.0-0.4) % Basophils # (0-0.4) Sodium (136-145) mEq/L Potassium (3.5-5.1) mEq/L Chloride (98-107) mEq/L Carbon Dioxide (21-32) mEq/L Anion Gap (5-15) MEQ/L BUN (9-20) mg/dL Creatinine (0.55-1.30) mg/dl Estimated GFR ML/MIN Glucose (70-110) MG/DL Lactic Acid 1.5 (0.4-2.0) Calcium (8.5-10.1) mg/dL Total Bilirubin (0.2-1.0) mg/dL AST (15-37) U/L ALT (12-78) U/L Alkaline Phosphatase (46-116) U/L Serum Total Protein (6.4-8.2) gm/dL Albumin (3.4-5.0) g/dL Amylase (25-115) U/L Lipase (73-393) U/L Ur Collection Type Urine Color (YELLOW) Urine Appearance (CLEAR) Urine pH (5-6) Ur Specific Sidney (1.005-1.025) Urine Protein (Negative) Urine Ketones (NEGATIVE) Urine Blood (0-5) Aroldo/ul Urine Nitrite (NEGATIVE) Urine Bilirubin (NEGATIVE) Urine Urobilinogen (0-1) mg/dL Ur Leukocyte Esterase (NEGATIVE) Urine Microscopic WBC (0-5) /HPF Ur Epithelial Cells (FEW) /HPF Urine Bacteria (NEGATIVE) /HPF Hyaline Casts (0-2) /LPF Urine Yeast (NEGATIVE) /HPF Urine Culture Reflexed (NO) Urine Glucose (NEGATIVE) mg/dL Specimen Received - Progress Progress: improved Progress Note: 12/20/16 12:35 Pt feels better after receiving toradol, zofran and NS fluids. The CT scan abd/ pelvis shows the same near total colectomy with anastomosis at the level of the rectum. The UA looks better from previous UA. Pt will continue Invanz and will F /U with PCP. - Departure Time of Disposition: 12:36 Departure Disposition: Home Clinical Impression: ESBL (extended spectrum beta-lactamase) producing bacteria infection Abdominal pain Qualifiers: Abdominal location: unspecified location Qualified Code(s): R10.9 - Unspecified abdominal pain Condition: Stable Critical Care Time: No Referrals: PAWEL JAMIL [Primary Care Provider] - Instructions: Abdominal Pain-Adult, Urinary Tract Infection (UTI) Additional Instructions: Follow up with your primary care doctor in the next few days for further recommendations about your urinary tract infection. You can resume your Invanz as scheduled. Prescriptions: Promethazine HCl 25 mg [Phenergan 25 mg] 25 mg PO TID PRN #14 tablet PRN Reason: Nausea/Vomiting
[2016-12-20] MEDS ORDERED: Protonix 40MG Tablet ONE (09:55)
[2016-12-20] MEDS ORDERED: MORPHINE SULFATE 4 MG INJ ONE (09:56)
[2016-12-20] MEDS ORDERED: Sodium Chloride 0.9% 1000 ML 1,000 ML ONE (09:56)
[2016-12-20] MEDS ORDERED: Hydromorphone 1 mg/ml Ampule IV ONE (10:12)
[2016-12-20] MEDS ORDERED: TORAdol 30 mg Injection IV ONE (10:14)
[2016-12-20 10:19] LABS: BASOPHIL % 0.3 % (0.0-0.4); Eosinophil % 2.9 % (0.00-5.0); Granulocytes % 62.5 % (36.0-66.0); Lymphocytes % 24.9 % (24.0-44.0); Mean Corpuscular Hemoglobin 31.2 pg (26-32); Mean Platelet Volume 10.2 fl (6-9.5); Monocytes % 9.4 % (0.0-12.0); Platelet Count 163 K/mm3 (150-450); Red Blood Count 4.17 M/mm3 (4.1-5.4); Red Cell Distribution Width 12.5 % (11.5-14.0); White Blood Count 3.1 K/mm3 (4.0-10.5)
[2016-12-20] MEDS ORDERED: TORAdol 30 mg Injection ONE (10:19)
[2016-12-20] MEDS ORDERED: PROVENTIL 2.5 MG/3 ML NEB IH ONE (10:28)
[2016-12-20 10:45] LABS: ALBUMIN 3.7 g/dL (3.4-5.0); ANION GAP 16.3 MEQ/L (5-15); BILIRUBIN,TOTAL 0.3 mg/dL (0.2-1.0); Potassium 4.3 mEq/L (3.5-5.1); Total Protein 7.4 gm/dL (6.4-8.2)
[2016-12-20 10:48] LABS: Bilirubin NEGATIVE (NEGATIVE); Blood NEGATIVE Ery/ul (0-5); COMPLETE URINE MICROSCOPIC? YES; Collection Type CLEAN CATCH; Glucose NEGATIVE (NEGATIVE); Leukocyte Esterase 1+ (NEGATIVE)
[2016-12-20 10:50] LABS: ADD URINE CULTURE? YES (NO); Bacteria FEW /HPF (NEGATIVE); Epithelial Cells MODERATE /HPF (FEW); Yeast MODERATE /HPF (NEGATIVE)
[2016-12-20 12:57] VITALS: BP 118/68; PULSE 82; O2SAT 96
--- NOTE | 2016-12-20 20:14 | XRAY ---
Indication: Abdomen pain. Nausea and vomiting. Multiple contiguous axial images obtained through the abdomen and pelvis without contrast as ordered. Comparison: April 26, 2016. Lung bases again demonstrates minimal bibasilar dependent atelectasis. Stable subcentimeter noncalcified nodules in the left base probably granulomatous in this demographic. Also stable distal paraesophageal calcified granulomas. Heart is not enlarged. Noncontrasted stomach and bowel loops appear nonobstructed with stable intact sigmoid anastomosis. No free fluid/air. Stable left renal cyst/scarring, pelvic phleboliths, cholecystectomy, and hysterectomy. Stable left renal cyst. Remaining liver, pancreas, spleen, adrenal glands, urinary bladder, and aorta appear unremarkable for noncontrast exam. Osseous structures intact again with lumbar degenerative changes. Impression: 1. Stable left renal cyst and probable left lung base noncalcified granuloma. 2. No new/acute intra-abdominal/pelvic abnormalities on this noncontrast exam. Comment: Preliminary interpretation was made by [facility]. No discrepancy. CTDI 17.73
== END 2016-12-20 12:57 | disposition home or self-care (01) ==
LOC: ED 09:20
DX: R10.9 Unspecified abdominal pain (principal); A49.9 Bacterial infection, unspecified; Z16.12 Extended spectrum beta lactamase (ESBL) resistance; R11.2 Nausea with vomiting, unspecified; Z79.899 Other long term (current) drug therapy; K59.00 Constipation, unspecified
CPT/HCPCS: 36415; 74176; 80053; 81000; 82150; 83605; 83690; 85025; 87040; 87077; 87086; 87186; 96360; 96374; 99284; J1642; J1885; J2270; A9270-GY

== ENCOUNTER 2017-01-02 09:17 | Emergency (ER) | payer MEDICARE ==
[2017-01-02] MEDS ORDERED: Reglan 10 MG/2 ML IV ONE (09:32)
[2017-01-02] MEDS ORDERED: BENADRYL 50 MG/ML IV ONE (09:32)
[2017-01-02] MEDS ORDERED: Reglan 10 MG/2 ML ONE (09:42)
[2017-01-02] MEDS ORDERED: BENADRYL 50 MG/ML ONE (09:42)
--- NOTE | 2017-01-02 09:56 | ERPHSYRPT ---
- History of Present Illness Time Seen by Provider: 01/02/17 09:20 Source: patient Physician History: CC: headache Hx: 61 y/o patient of Dr Benz/Gerardo. She has migraine headache for 3 days, similar to prior headaches. She is on cipro fro resistant UTI. She has some renal insuff. She has no unusual symptoms. This is typical of her prior headaches. Some nausea and photophobia. She is supposed to attend a memorial today with her family. No N/T/W. She saw chiropractor without help or hurt. Timing/Duration: day(s) (3) Head Pain Location: frontal, global Severity of Pain-Max: severe Severity of Pain-Current: severe Allergies/Adverse Reactions: codeine Allergy (Mild, Verified 12/17/16 00:16) Rash MAKES SICK sumatriptan [From Imitrex] Allergy (Verified 12/17/16 00:16) sumatriptan succinate [From Imitrex] Allergy (Verified 12/17/16 00:16) morphine Adverse Reaction (Severe, Verified 12/17/16 00:16) Headache MIGRAINES hydrocodone bitartrate [From Vicodin] Adverse Reaction (Mild, Verified 12/17/16 00:16) Vomiting fentanyl Adverse Reaction (Verified 12/17/16 00:16) Home Medications: Alprazolam 1 mg [Xanax 1 mg] 2 mg PO BID 02/17/13 [History] Rizatriptan Benzoate [Maxalt] 10 mg PO BIDPRN PRN 02/17/13 [History] Linaclotide [Linzess] 290 mcg PO DAILY 07/13/14 [History] Polyethylene Glycol 3350 17 gm [Miralax Powder 17GM PACKET] 34 gm PO TID PRN 11/15/14 [History] Sennosides/Docusate Sodium [Senokot-S Tablet] 2 tab PO BID 04/25/15 [History] Promethazine HCl 25 mg [Phenergan 25 mg] 25 mg PO Q4HPRN PRN 05/11/15 [ History] Naloxegol Oxalate [Movantik] 25 mg PO DAILY 12/24/15 [History] Cetirizine HCl/Pseudoephedrine [Zyrtec-D Tablet] 1 each PO DAILY 02/03/16 [ History] Aspirin 81 mg PO DAILY 09/11/16 [History] Levothyroxine Sodium 0.5 tab PO DAILY 09/11/16 [History] Omeprazole 40 mg PO DAILY 09/11/16 [History] Phenazopyridine HCl 200 mg [Pyridium 200 mg] 200 mg PO BID PRN 09/11/16 [ History] Ciprofloxacin [Cipro 500 MG] 500 mg PO BID 12/16/16 [History] Oxycodone HCl 10 mg PO Q8H PRN PRN 12/16/16 [History] Hx Tetanus, Diphtheria Vaccination/Date Given: No Hx Influenza Vaccination/Date Given: Yes Hx Pneumococcal Vaccination/Date Given: No - Review of Systems Constitutional: No Fever, No Chills Eyes: Photophobia Ears, Nose, & Throat: No Symptoms Abdominal/Gastrointestinal: Nausea, No Vomiting Skin: No Rash Neurological: Headache, No Dizziness, No Focal Weakness, No Parasthesia All Other Systems: Reviewed and Negative - Past Medical History Pertinent Past Medical History: Yes Neurological History: Migraines ENT History: Cataracts, Other Cardiac History: No Pertinent History Respiratory History: Other Endocrine Medical History: Hypothyroidism, Other Musculoskeletal History: Arthritis, Degenerative Disk Disease, Osteoarthritis, Other GI Medical History: GERD, Irritable Bowel, Ulcer, Other History: Other Psycho-Social History: Anxiety Female Reproductive Disorders: Other Other Medical History: Recurrent UTI,urine kidney/bladder problems recurrent - Past Surgical History Past Surgical History: Yes Neuro Surgical History: No Pertinent History Cardiac: No Pertinent History Respiratory: No Pertinent History Gastrointestinal: Bowel Surgery, Cholecystectomy, Colon Resection, Hernia Repair Genitourinary: Other Musculoskeletal: No Pertinent History Female Surgical History: Hysterectomy Other Surgical History: COLONOSCOPIES, EGDs. Total colectomy. FEEDING TUBE FOR 4 YEARS, stretches of bladder and urethra, bowel obstructions x2, lithotripsy. - Social History Smoking Status: Never smoker Exposure to second hand smoke: No Alcohol Use: None Drug Use: none Patient Lives Alone: No Significant Family History: no pertinent family hx - Female History Hx Now: No - Physical Exam General Appearance: alert Eye Exam: PERRL/EOMI Ears, Nose, Throat Exam: moist mucous membranes Neck Exam: normal inspection, non-tender, supple Respiratory Exam: normal breath sounds Cardiovascular Exam: regular rate/rhythm Gastrointestinal/Abdominal Exam: soft, No tenderness, No distention Extremity Exam: normal inspection, normal range of motion 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, 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, cooperative neurosurgery physician Exam: normal hearing, normal speech, PERRL Coordination/Gait Exam: normal gait Motor/Sensory Exam: no motor deficit, no sensory deficit Skin Exam: normal color, warm, dry, No rash - Course Nursing assessment & vital signs reviewed: Yes Ordered Tests: Active Orders 24 hr Category Date Time Status IV Insertion STAT Care 01/02/17 09:32 Active Medication Summary Generic Name Dose Route Start Last Admin Trade Name Elton PRN Reason Stop Dose Admin Diphenhydramine HCl 25 mg 01/02/17 09:32 Benadryl 50 Mg/Ml IV 01/02/17 09:33 STAT ONE Metoclopramide HCl 10 mg 01/02/17 09:32 Reglan 10 Mg/2 Ml IV 01/02/17 09:33 STAT ONE - Progress Progress Note: 01/02/17 09:58 She has some hx of renal insuff so will avoid toradol. Will give benadryl and reglan which she has had in the past. She does not want haldol. KIM instr given. Counseled pt/family regarding: diagnosis, need for follow-up - Departure Time of Disposition: 10:00 Departure Disposition: Home Clinical Impression: Migraine headache, Abdominal pain Condition: Stable Critical Care Time: No Referrals: PAWEL BENZ [Primary Care Provider] - Instructions: Headache Additional Instructions: HEADACHE 1. After discharge from the emergency department, you should rest at home in a cool, dark, quiet place for 12-24 hours. 2. If any of the following signs or symptoms are noticed, you should be re- evaluated right away: A. Visual changes B. Stiff Neck C. Change in quality or location of pain D. Fever E. Recurrent vomiting 3. If pain medications were prescribed or given, they may cause drowsiness. No driving today. Follow up with Dr Benz.
[2017-01-02 10:39] VITALS: BP 102/70; PULSE 90; O2SAT 94
== END 2017-01-02 10:39 | disposition home or self-care (01) ==
LOC: ED 09:17
DX: G43.909 Migraine, unspecified, not intractable, without status migrainosus (principal); R10.9 Unspecified abdominal pain; R11.0 Nausea
CPT/HCPCS: 36000; 96374; 96375; 99284; J1200; J1642

== ENCOUNTER 2017-01-27 15:53 | Emergency (ER) | payer MEDICARE ==
[2017-01-27 16:05] VITALS: BP 110/68; PULSE 111; O2SAT 97
[2017-01-27] MEDS ORDERED: TORAdol 30 mg Injection IM ONE (16:38)
[2017-01-27] MEDS ORDERED: Phenergan 25 MG INJ IM ONE (16:38)
--- NOTE | 2017-01-27 16:38 | ERPHSYRPT ---
- History of Present Illness Time Seen by Provider: 01/27/17 16:31 Source: patient Exam Limitations: no limitations Patient Subjective Stated Complaint: c/o migraine since wednesday. pt has taken her perscription medication and has yet to get any relief. pt went to see a chiropractor today. Triage Nursing Assessment: pt alert x3. respirations even and unlabored. skin is pink warm and dry. pt has sunglasses on due to the light. denies any dizziness or light headedness Physician History: The patient is a 61-year-old female with a history of chronic migraines complains of a usual migraine headache on the right side of her head for 3 days. She has chronic back and neck pain that sometimes causes her headache to flare. She saw a chiropractor today for manipulation of her neck. She said it helped for a little while but the headache is now worse. She wants an injection of Phenergan and Toradol. Her past medical history is significant for migraine headaches, chronic urinary tract infection, and chronic constipation. Timing/Duration: day(s) (3) Quality: sharpness Head Pain Location: temporal (right), parietal Severity of Pain-Max: severe Severity of Pain-Current: severe Recent Head Trauma: chronic headaches Associated Symptoms: nausea/vomiting, sensitive to light Previous symptoms: same symptoms as today Allergies/Adverse Reactions: codeine Allergy (Mild, Verified 01/02/17 09:43) Rash MAKES SICK sumatriptan [From Imitrex] Allergy (Verified 01/02/17 09:43) sumatriptan succinate [From Imitrex] Allergy (Verified 01/02/17 09:43) morphine Adverse Reaction (Severe, Verified 01/02/17 09:43) Headache MIGRAINES hydrocodone bitartrate [From Vicodin] Adverse Reaction (Mild, Verified 01/02/17 09:43) Vomiting fentanyl Adverse Reaction (Verified 01/02/17 09:43) Home Medications: Alprazolam 1 mg [Xanax 1 mg] 2 mg PO BID 02/17/13 [History] Rizatriptan Benzoate [Maxalt] 10 mg PO BIDPRN PRN 02/17/13 [History] Linaclotide [Linzess] 290 mcg PO DAILY 07/13/14 [History] Polyethylene Glycol 3350 17 gm [Miralax Powder 17GM PACKET] 34 gm PO TID PRN 11/15/14 [History] Sennosides/Docusate Sodium [Senokot-S Tablet] 2 tab PO BID 04/25/15 [History] Promethazine HCl 25 mg [Phenergan 25 mg] 25 mg PO Q4HPRN PRN 05/11/15 [ History] Naloxegol Oxalate [Movantik] 25 mg PO DAILY 12/24/15 [History] Cetirizine HCl/Pseudoephedrine [Zyrtec-D Tablet] 1 each PO DAILY 02/03/16 [ History] Aspirin 81 mg PO DAILY 09/11/16 [History] Levothyroxine Sodium 0.5 tab PO DAILY 09/11/16 [History] Omeprazole 40 mg PO DAILY 09/11/16 [History] Phenazopyridine HCl 200 mg [Pyridium 200 mg] 200 mg PO BID PRN 09/11/16 [ History] Ciprofloxacin [Cipro 500 MG] 500 mg PO BID 12/16/16 [History] Oxycodone HCl 10 mg PO Q8H PRN PRN 12/16/16 [History] Hx Tetanus, Diphtheria Vaccination/Date Given: No Hx Influenza Vaccination/Date Given: Yes Hx Pneumococcal Vaccination/Date Given: No Immunizations Up to Date: Yes - Review of Systems Constitutional: No Fever, No Chills Eyes: No Symptoms Ears, Nose, & Throat: No Symptoms Respiratory: No Cough, No Dyspnea Cardiac: No Chest Pain, No Edema, No Syncope Abdominal/Gastrointestinal: Nausea, Vomiting, No Abdominal Pain, No Diarrhea Genitourinary Symptoms: No Dysuria Musculoskeletal: No Back Pain, No Neck Pain Skin: No Rash Neurological: Headache Psychological: No Symptoms Endocrine: No Symptoms Hematologic/Lymphatic: No Symptoms Immunological/Allergic: No Symptoms All Other Systems: Reviewed and Negative - Past Medical History Pertinent Past Medical History: Yes Neurological History: Migraines ENT History: Cataracts, Other Cardiac History: No Pertinent History Respiratory History: Other Endocrine Medical History: Hypothyroidism, Other Musculoskeletal History: Arthritis, Degenerative Disk Disease, Osteoarthritis, Other GI Medical History: GERD, Irritable Bowel, Ulcer, Other History: Other Psycho-Social History: Anxiety Female Reproductive Disorders: Other Other Medical History: Recurrent UTI,urine kidney/bladder problems recurrent. infection "esedl" in kidneys and bladder -atb cephalaxin - Past Surgical History Past Surgical History: Yes Neuro Surgical History: No Pertinent History Cardiac: No Pertinent History Respiratory: No Pertinent History Gastrointestinal: Bowel Surgery, Cholecystectomy, Colon Resection, Hernia Repair Genitourinary: Other Musculoskeletal: No Pertinent History Female Surgical History: Hysterectomy Other Surgical History: COLONOSCOPIES, EGDs. Total colectomy. FEEDING TUBE FOR 4 YEARS, stretches of bladder and urethra, bowel obstructions x2, lithotripsy. - Social History Smoking Status: Never smoker Exposure to second hand smoke: No Alcohol Use: None Drug Use: none Patient Lives Alone: Yes Significant Family History: no pertinent family hx - Female History Hx Now: No - Nursing Vital Signs Nursing Vital Signs: Initial Vital Signs Temperature 97.5 F 01/27/17 15:54 Pulse Rate 111 H 01/27/17 15:54 Respiratory Rate 20 01/27/17 15:54 Blood Pressure 110/68 01/27/17 15:54 O2 Sat by Pulse Oximetry 97 01/27/17 15:54 Pain Scale Pain Intensity 10 - Physical Exam General Appearance: moderate distress Eye Exam: PERRL/EOMI Ears, Nose, Throat Exam: normal ENT inspection, moist mucous membranes Neck Exam: normal inspection, supple, full range of motion, No meningismus Respiratory Exam: normal breath sounds, lungs clear Cardiovascular Exam: regular rate/rhythm, normal heart sounds Gastrointestinal/Abdominal Exam: soft, No tenderness, No distention Back Exam: normal inspection, normal range of motion Extremity Exam: normal inspection 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, 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, cooperative housing case manager Exam: normal hearing, normal speech, PERRL, No facial droop Coordination/Gait Exam: normal cerebellar function Motor/Sensory Exam: no motor deficit, no sensory deficit Skin Exam: normal color, warm, dry, No rash SpO2 Interpretation: normal SpO2: 97 Oxygen Delivery: Room Air - Progress Progress: improved Progress Note: 01/27/17 16:43 Previous creatinine was 1.15. Counseled pt/family regarding: diagnosis - Departure Time of Disposition: 16:43 Departure Disposition: Home Clinical Impression: Migraine headache Condition: Stable Critical Care Time: No Referrals: PAWEL JAMIL [Primary Care Provider] - Additional Instructions: You have a migraine headache. You were given Phenergan 50 mg and Toradol 60 mg by IM injection in the ER. Follow-up as needed.
[2017-01-27] MEDS ORDERED: TORAdol 30 mg Injection ONE (16:49)
[2017-01-27] MEDS ORDERED: Phenergan 25 MG INJ ONE ×2 (16:49→16:51)
== END 2017-01-27 16:58 | disposition home or self-care (01) ==
LOC: ED 15:53
DX: G43.909 Migraine, unspecified, not intractable, without status migrainosus (principal)
CPT/HCPCS: 96372; 99284; J1885; J2550

== ENCOUNTER 2017-02-27 15:22 | Emergency (ER) | payer MEDICARE ==
[2017-02-27] MEDS ORDERED: DUONEB 0.5-3 MG/3 ml Neb IH ONE ×2 (15:53→16:03)
--- NOTE | 2017-02-27 16:01 | ERPHSYRPT ---
- History of Present Illness Time Seen by Provider: 02/27/17 15:44 Source: patient Patient Subjective Stated Complaint: Pt states she began having abdominal pain that is Chronic. Pt also c/o a cough that she has had for several weeks. Triage Nursing Assessment: pt pink, warm, dry. pt hyperventilating. Talking wnl. Pt afebrile. Lung sounds clear and equal. ABdomen soft, tender in left quadrant. Physician History: CC: cough Hx: 61 y/o patient of Dr Benz and Dr Mckay urology in [facility]. She has hx of ESBL UTI and has had her bladder evaluated in [facility]. Her daughters recently moved away and she has been upset of late. She has chronic headaches, unchanged. She has chronic abdominal pain worse with her cough. She has cough. She felt somewhat breathless. Does not use O2 or nebs. She was told to get an inhaler. She has een Dr Jaffe in the past. No hx of heart disease. No fever or chills. She was worried so came to ER. She drove herself and plans to drive herself home. Allergies/Adverse Reactions: codeine Allergy (Mild, Verified 02/27/17 15:47) Rash MAKES SICK sumatriptan [From Imitrex] Allergy (Verified 02/27/17 15:47) sumatriptan succinate [From Imitrex] Allergy (Verified 02/27/17 15:47) morphine Adverse Reaction (Severe, Verified 02/27/17 15:47) Headache MIGRAINES hydrocodone bitartrate [From Vicodin] Adverse Reaction (Mild, Verified 02/27/17 15:47) Vomiting fentanyl Adverse Reaction (Verified 02/27/17 15:47) Home Medications: Alprazolam 1 mg [Xanax 1 mg] 2 mg PO BID 02/17/13 [History] Rizatriptan Benzoate [Maxalt] 10 mg PO BIDPRN PRN 02/17/13 [History] Linaclotide [Linzess] 290 mcg PO DAILY 07/13/14 [History] Polyethylene Glycol 3350 17 gm [Miralax Powder 17GM PACKET] 34 gm PO TID PRN 11/15/14 [History] Sennosides/Docusate Sodium [Senokot-S Tablet] 2 tab PO BID 04/25/15 [History] Promethazine HCl 25 mg [Phenergan 25 mg] 25 mg PO Q4HPRN PRN 05/11/15 [ History] Cetirizine HCl/Pseudoephedrine [Zyrtec-D Tablet] 1 each PO DAILY 02/03/16 [ History] Aspirin 81 mg PO DAILY 09/11/16 [History] Levothyroxine Sodium 0.5 tab PO DAILY 09/11/16 [History] Omeprazole 40 mg PO DAILY 09/11/16 [History] Oxycodone HCl 10 mg PO Q8H PRN PRN 12/16/16 [History] Hx Tetanus, Diphtheria Vaccination/Date Given: Yes (up to date) Hx Influenza Vaccination/Date Given: Yes Hx Pneumococcal Vaccination/Date Given: No Immunizations Up to Date: Yes - Review of Systems Constitutional: Malaise, No Fever, No Chills Eyes: No Symptoms Ears, Nose, & Throat: No Symptoms Respiratory: Cough Cardiac: No Chest Pain Abdominal/Gastrointestinal: Abdominal Pain (chronic), No Nausea, No Vomiting, No Diarrhea Genitourinary Symptoms: No Dysuria Skin: No Rash Neurological: No Headache All Other Systems: Reviewed and Negative - Past Medical History Pertinent Past Medical History: Yes Neurological History: Migraines ENT History: Cataracts, Other Cardiac History: No Pertinent History Respiratory History: Other Endocrine Medical History: Hypothyroidism, Other Musculoskeletal History: Arthritis, Degenerative Disk Disease, Osteoarthritis, Other GI Medical History: GERD, Irritable Bowel, Ulcer, Other History: Other Psycho-Social History: Anxiety Female Reproductive Disorders: Other Other Medical History: Recurrent UTI,urine kidney/bladder problems recurrent. 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 Total colectomy. FEEDING TUBE FOR 4 YEARS, stretches of bladder and urethra, bowel obstructions x2, lithotripsy. - Social History Smoking Status: Never smoker Exposure to second hand smoke: No Alcohol Use: None Drug Use: none Patient Lives Alone: No Significant Family History: no pertinent family hx - Female History Hx Now: No - Nursing Vital Signs Nursing Vital Signs: Initial Vital Signs Temperature 98.7 F 02/27/17 15:39 Pulse Rate 95 H 02/27/17 15:39 Respiratory Rate 28 H 02/27/17 15:39 Blood Pressure 108/59 02/27/17 15:39 O2 Sat by Pulse Oximetry 97 02/27/17 15:39 Pain Scale Pain Intensity 6 - Physical Exam General Appearance: alert, other (talkative) Eye Exam: PERRL/EOMI Ears, Nose, Throat Exam: normal ENT inspection, moist mucous membranes Neck Exam: normal inspection, non-tender, supple Respiratory Exam: normal breath sounds Cardiovascular Exam: regular rate/rhythm, No murmur Gastrointestinal/Abdomen Exam: soft, No tenderness, No distention, No mass, No guarding Back Exam: normal inspection Extremity Exam: normal inspection, normal range of motion, No calf tenderness, No pedal edema Neurologic Exam: alert, 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, cooperative, sensation nml, No motor deficits Skin Exam: warm, dry, No rash SpO2 Interpretation: normal SpO2: 97 Oxygen Delivery: Room Air - Course Nursing assessment & vital signs reviewed: Yes EKG Interpreted by Me: RATE (104), Sinus Tach, NORMAL AXIS, NORMAL INTERVALS ( QTc 425), NORMAL QRS, NORMAL ST-T, Other (no change from prior) - Radiology Exams cxr X-ray Interpretation: Reviewed by me, Negative (port a cath, granulomatous disease) Ordered Tests: Active Orders 24 hr Category Date Time Status EKG-ER Only STAT Care 02/27/17 15:53 Active IV Insertion STAT Care 02/27/17 16:02 Active CHEST 2 VIEWS (PA AND LAT) Stat Exams 02/27/17 15:54 Taken CBC W DIFF Stat Lab 02/27/17 16:25 Completed CMP Stat Lab 02/27/17 16:25 Completed Lactic Acid Stat Lab 02/27/17 16:55 Completed Respiratory Nebulizer STAT RT 02/27/17 15:54 Active Medication Summary Generic Name Dose Route Start Last Admin Trade Name Freq PRN Reason Stop Dose Admin Heparin Sodium (Beef Lung) 500 units 02/27/17 16:44 02/27/17 16:45 Heparin Lock Flush 100 Units/Ml 5ml Syringe PORT FLUSH 03/29/17 16:43 500 units PRN PRN Administration IV PORT FLUSH Discontinued Medications Generic Name Dose Route Start Last Admin Trade Name Elton PRN Reason Stop Dose Admin Albuterol/Ipratropium 3 ml 02/27/17 15:53 02/27/17 16:22 Duoneb 0.5-3 Mg/3 Ml Neb IH 02/27/17 15:54 3 ml STAT ONE Administration Albuterol/Ipratropium Confirm 02/27/17 16:03 Duoneb 0.5-3 Mg/3 Ml Neb Administered 02/27/17 16:04 Dose 3 ml IH .STK-MED ONE Heparin Sodium (Beef Lung) Confirm 02/27/17 16:25 Heparin Lock Flush 100 Units/Ml 5ml Syringe Administered 02/27/17 16:26 Dose 500 units .ROUTE .STK-MED ONE Lab/Rad Data: Laboratory Result Diagrams 02/27/17 16:25 02/27/17 16:25 Laboratory Results 02/27/17 02/27/17 02/27/17 Range/Units 16:55 16:25 16:25 WBC 3.9 L (4.0-10.5) K/mm3 RBC 4.21 (4.1-5.4) M/mm3 Hgb 13.1 (12.0-16.0) gm/dl Hct 38.4 (35-47) % MCV 91.2 (78-100) fl MCH 31.1 (26-32) pg MCHC 34.1 (32-36) g/dl RDW 12.2 (11.5-14.0) % Plt Count 174 (150-450) K/mm3 MPV 10.3 H (6-9.5) fl Gran % 59.4 (36.0-66.0) % Lymphocytes % 28.8 (24.0-44.0) % Monocytes % 8.5 (0.0-12.0) % Eosinophils % 2.8 (0.00-5.0) % Basophils % 0.5 (0.0-0.4) % Basophils # 0.02 (0-0.4) Sodium 140 (136-145) mEq/L Potassium 3.9 (3.5-5.1) mEq/L Chloride 107 (98-107) mEq/L Carbon Dioxide 24.1 (21-32) mEq/L Anion Gap 12.7 (5-15) MEQ/L BUN 20 (9-20) mg/dL Creatinine 1.19 (0.55-1.30) mg/dl Estimated GFR 49 ML/MIN Glucose 100 (70-110) MG/DL Lactic Acid 1.2 (0.4-2.0) Calcium 8.7 (8.5-10.1) mg/dL Total Bilirubin 0.50 (0.2-1.0) mg/dL AST 19 (15-37) U/L ALT 17 (12-78) U/L Alkaline Phosphatase 102 (46-116) U/L Serum Total Protein 7.3 (6.4-8.2) gm/dL Albumin 3.6 (3.4-5.0) g/dL - Progress Progress Note: 02/27/17 16:01 She has chronic anxiety. She is driving herself. Lungs seem clear. She is most interested in getting a yellow or red cough syrup. 02/27/17 17:26 She is stable. Will try combivent MDI. Advised follow up with dr Benz. Counseled pt/family regarding: lab results, diagnosis, need for follow-up, rad results - Departure Time of Disposition: 17:26 Departure Disposition: Home Clinical Impression: Cough Condition: Stable Critical Care Time: No Referrals: PAWEL BENZ [Primary Care Provider] - Instructions: Cough in Adults Additional Instructions: UPPER RESPIRATORY INFECTIONS 1. The signs and symptoms of a cold may last up to 10 days. These illnesses are due to viruses which are not treatable with antibiotics. 2. The following suggestions can aid in recovery and to minimize symptoms: A. Increase fluid intake. B. Acetaminophen or Ibuprofen as directed. C. Avoid smoking environments as this will increase the risk of developing pneumonia. D. For children, may use a cool mist vaporizer in the child's room. 3. Contact your Family Physician if you note: A. Persisten fever >103 for more than 3 days B. Breathing difficulty C. Productive cough of yellow/green sputum D. Illness greater than 7 days E. Persistent vomiting F. Stiff neck Rx combivent MDI. Follow up next week with Dr Benz. Prescriptions: Ipratropium/Albuterol Sulfate [Combivent Inhaler] 15 gm IH UD #1 [email or web address]
[2017-02-27 16:38] LABS: BASOPHIL % 0.5 % (0.0-0.4); Basophil (Absolute #) 0.02 (0-0.4); Eosinophil % 2.8 % (0.00-5.0); Eosinophil (Absolute #) 0.11 (0-0.5); Granulocyte Absolute (ANC) 2.29 (1.4-6.9); Granulocytes % 59.4 % (36.0-66.0); Hematocrit 38.4 % (35-47); Hemoglobin 13.1 gm/dl (12.0-16.0); Lymphocyte (Absolute #) 1.11 (1.0-4.6); Lymphocytes % 28.8 % (24.0-44.0); Mean Cell Volume 91.2 fl (78-100); Mean Corpuscular Hemoglobin 31.1 pg (26-32); Mean Corpuscular Hgb Concent. 34.1 g/dl (32-36); Mean Platelet Volume 10.3 fl (6-9.5); Monocyte (Absolute #) 0.33 (0.0-1.3); Monocytes % 8.5 % (0.0-12.0); Platelet Count 174 K/mm3 (150-450); Red Blood Count 4.21 M/mm3 (4.1-5.4); Red Cell Distribution Width 12.2 % (11.5-14.0); White Blood Count 3.9 K/mm3 (4.0-10.5)
[2017-02-27 17:02] VITALS: BP 115/73; PULSE 101
[2017-02-27 17:15] LABS: ALBUMIN 3.6 g/dL (3.4-5.0); ANION GAP 12.7 MEQ/L (5-15); BILIRUBIN,TOTAL 0.5 mg/dL (0.2-1.0); Calcium 8.7 mg/dL (8.5-10.1); Carbon Dioxide 24.1 mEq/L (21-32); Creatinine 1 1.19 mg/dl (0.55-1.30); Potassium 3.9 mEq/L (3.5-5.1); Total Protein 7.3 gm/dL (6.4-8.2)
[2017-02-27 17:28] VITALS: O2SAT 97
--- NOTE | 2017-02-27 21:35 | XRAY ---
Indication: Cough. Comparison: February 03, 2016. PA/lateral chest again hyperinflated with right hilar calcified nodes and right-sided Port-A-Cath. No focal infiltrate, consolidation, or large effusion. Heart is not enlarged. Bony thorax intact. Impression: Nonacute hyperinflated chest with chronic features.
== END 2017-02-27 17:41 | disposition home or self-care (01) ==
LOC: ED 15:22
DX: R05 Cough (principal); F41.9 Anxiety disorder, unspecified; Z16.12 Extended spectrum beta lactamase (ESBL) resistance; E03.9 Hypothyroidism, unspecified; M19.90 Unspecified osteoarthritis, unspecified site; K21.9 Gastro-esophageal reflux disease without esophagitis; Z79.899 Other long term (current) drug therapy
CPT/HCPCS: 36000; 36415; 36591; 71046; 80053; 83605; 85025; 93005; 94640; 99284; J1642; A9270-GY

== ENCOUNTER 2017-03-27 18:35 | Emergency (ER) | payer MEDICARE ==
--- NOTE | 2017-03-27 19:52 | ERPHSYRPT ---
- History of Present Illness Time Seen by Provider: 03/27/17 19:39 Historian: patient Exam Limitations: no limitations Patient Subjective Stated Complaint: UTI Triage Nursing Assessment: Pt presents to the ED with complaints of UTI x13 months. Pt states is to be seen by PCP next week for complaint. Pt states bilateral flank pain continuing today. Pt is A&O x4, no distress noted. Physician History: PT WAS STARTED ON LEVAQUIN YESTERDAY FOR A UTI BUT ONLY GIVEN 4 PILLS. PT C/O LOWER MID ABDOMINAL PAIN, LOW BACK PAIN, DYSURIA AND BILATERAL FLANK PAIN FOR 13 MONTHS AND FOR THE PAST 2 DAYS DIAPHORESIS. PT ALSO C/O CHRONIC COUGH, OCCASIONAL DIARRHEA AND VOMITING FOR YEARS. PT DENIES FEVER, RASH, CHILLS. Allergies/Adverse Reactions: codeine Allergy (Mild, Verified 02/27/17 15:47) Rash MAKES SICK sumatriptan [From Imitrex] Allergy (Verified 02/27/17 15:47) sumatriptan succinate [From Imitrex] Allergy (Verified 02/27/17 15:47) morphine Adverse Reaction (Severe, Verified 02/27/17 15:47) Headache MIGRAINES hydrocodone bitartrate [From Vicodin] Adverse Reaction (Mild, Verified 02/27/17 15:47) Vomiting fentanyl Adverse Reaction (Verified 02/27/17 15:47) Home Medications: Alprazolam 1 mg [Xanax 1 mg] 2 mg PO BID 02/17/13 [History] Rizatriptan Benzoate [Maxalt] 10 mg PO BIDPRN PRN 02/17/13 [History] Linaclotide [Linzess] 290 mcg PO DAILY 07/13/14 [History] Polyethylene Glycol 3350 17 gm [Miralax Powder 17GM PACKET] 34 gm PO TID PRN 11/15/14 [History] Sennosides/Docusate Sodium [Senokot-S Tablet] 2 tab PO BID 04/25/15 [History] Promethazine HCl 25 mg [Phenergan 25 mg] 25 mg PO Q4HPRN PRN 05/11/15 [ History] Cetirizine HCl/Pseudoephedrine [Zyrtec-D Tablet] 1 each PO DAILY 02/03/16 [ History] Aspirin 81 mg PO DAILY 09/11/16 [History] Levothyroxine Sodium 0.5 tab PO DAILY 09/11/16 [History] Omeprazole 40 mg PO DAILY 09/11/16 [History] Oxycodone HCl 10 mg PO Q8H PRN PRN 12/16/16 [History] Hx Tetanus, Diphtheria Vaccination/Date Given: Yes Hx Influenza Vaccination/Date Given: Yes Hx Pneumococcal Vaccination/Date Given: No Immunizations Up to Date: No - Review of Systems Constitutional: No Fever, No Chills Respiratory: Cough Abdominal/Gastrointestinal: Abdominal Pain, Vomiting, Diarrhea, Other ( BILATERAL FLANK PAIN) Genitourinary Symptoms: Dysuria Musculoskeletal: Back Pain Skin: No Rash Endocrine: Excessive Sweating All Other Systems: Reviewed and Negative - Past Medical History Pertinent Past Medical History: Yes Neurological History: Migraines ENT History: Cataracts, Other Cardiac History: No Pertinent History Respiratory History: Other Endocrine Medical History: Hypothyroidism, Other Musculoskeletal History: Arthritis, Degenerative Disk Disease, Osteoarthritis, Other GI Medical History: GERD, Irritable Bowel, Ulcer, Other History: Other Psycho-Social History: Anxiety Female Reproductive Disorders: Other Other Medical History: Recurrent UTI,urine kidney/bladder problems recurrent. 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 Total colectomy. FEEDING TUBE FOR 4 YEARS, stretches of bladder and urethra, bowel obstructions x2, lithotripsy. - Social History Smoking Status: Never smoker Exposure to second hand smoke: No Alcohol Use: None Drug Use: none Patient Lives Alone: No Significant Family History: no pertinent family hx - Female History Hx Now: No - Nursing Vital Signs Nursing Vital Signs: Initial Vital Signs Temperature 97.6 F 03/27/17 18:49 Pulse Rate 100 H 03/27/17 18:49 Respiratory Rate 16 03/27/17 18:49 Blood Pressure 115/65 03/27/17 18:49 O2 Sat by Pulse Oximetry 93 L 03/27/17 18:49 Pain Scale Pain Intensity 8 - Physical Exam General Appearance: alert Eye Exam: PERRL/EOMI Ears, Nose, Throat Exam: TMs normal, pharynx normal, moist mucous membranes Neck Exam: normal inspection Respiratory Exam: lungs clear Cardiovascular Exam: normal heart sounds Gastrointestinal/Abdomen Exam: soft, normal bowel sounds, tenderness (MILD PERIUMBILICAL AND LOWER MID ABDOMINAL TENDERNESS) Back Exam: normal range of motion Extremity Exam: normal inspection, No pedal edema Neurologic Exam: alert, cooperative Skin Exam: warm, dry SpO2 Interpretation: normal SpO2: 93 Oxygen Delivery: Room Air - Course Nursing assessment & vital signs reviewed: Yes - CT Exams Head CT Interpretation: Tele-radiologist Report (NO EVIDENCE OF ACUTE INTRA- ABDOMINAL OR PELVIC PATHOLOGY.) Ordered Tests: Active Orders 24 hr Category Date Time Status ABDOMEN AND PELVIS W/0 CONTRAS [CT] Stat Exams 03/27/17 20:01 Taken AMYLASE Stat Lab 03/27/17 19:52 Completed CBC W DIFF Stat Lab 03/27/17 19:52 Completed CMP Stat Lab 03/27/17 19:52 Completed CULTURE,URINE Stat Lab 03/27/17 19:52 Received LIPASE Stat Lab 03/27/17 19:52 Completed UA W/ MICROSCOPIC Stat Lab 03/27/17 19:52 Completed Lab/Rad Data: Laboratory Result Diagrams 03/27/17 19:52 03/27/17 19:52 Laboratory Results 03/27/17 03/27/17 03/27/17 Range/Units 19:52 19:52 19:52 WBC 4.6 (4.0-10.5) K/mm3 RBC 3.98 L (4.1-5.4) M/mm3 Hgb 12.2 (12.0-16.0) gm/dl Hct 36.1 (35-47) % MCV 90.7 (78-100) fl MCH 30.6 (26-32) pg MCHC 33.8 (32-36) g/dl RDW 12.3 (11.5-14.0) % Plt Count 169 (150-450) K/mm3 MPV 10.6 H (6-9.5) fl Gran % 65.1 (36.0-66.0) % Lymphocytes % 23.9 L (24.0-44.0) % Monocytes % 9.5 (0.0-12.0) % Eosinophils % 1.3 (0.00-5.0) % Basophils % 0.2 (0.0-0.4) % Basophils # 0.01 (0-0.4) Sodium 138 (136-145) mEq/L Potassium 3.7 (3.5-5.1) mEq/L Chloride 105 (98-107) mEq/L Carbon Dioxide 22.1 (21-32) mEq/L Anion Gap 14.2 (5-15) MEQ/L BUN 32 H (9-20) mg/dL Creatinine 1.14 (0.55-1.30) mg/dl Estimated GFR 52 ML/MIN Glucose 113 H (70-110) MG/DL Calcium 9.0 (8.5-10.1) mg/dL Total Bilirubin 0.30 (0.2-1.0) mg/dL AST 20 (15-37) U/L ALT 17 (12-78) U/L Alkaline Phosphatase 90 (46-116) U/L Serum Total Protein 7.3 (6.4-8.2) gm/dL Albumin 3.6 (3.4-5.0) g/dL Amylase 64 (25-115) U/L Lipase 145 (73-393) U/L Ur Collection Type VOID Urine Color DARK YELLOW (YELLOW) Urine Appearance HAZY (CLEAR) Urine pH 5.0 (5-6) Ur Specific Douglass 1.030 (1.005-1.025) Urine Protein TRACE (Negative) Urine Ketones NEGATIVE (NEGATIVE) Urine Blood TRACE NON-HEM (0-5) Aroldo/ul Urine Nitrite POSITIVE (NEGATIVE) Urine Bilirubin NEGATIVE (NEGATIVE) Urine Urobilinogen NORMAL (0-1) mg/dL Ur Leukocyte Esterase 2+ (NEGATIVE) Urine Microscopic RBC 2-5 (0-2) /HPF Urine Microscopic WBC 15-25 (0-5) /HPF Ur Epithelial Cells MODERATE (FEW) /HPF Urine Bacteria MODERATE (NEGATIVE) /HPF Urine Mucus MODERATE (NEGATIVE) /HPF Urine Culture Reflexed YES (NO) Urine Glucose NEGATIVE (NEGATIVE) mg/dL Specimen Received 03/27/171954 - Progress Progress Note: 03/27/17 21:33 PT WANTS TO GO HOME WITH RX FOR MORE LEVAQUIN. - Departure Time of Disposition: 21:37 Departure Disposition: Home Clinical Impression: UTI, ABDOMINAL PAIN Condition: Stable Critical Care Time: No Referrals: PAWEL JAMIL [Primary Care Provider] - Instructions: Urinary Tract Infections in Adults Additional Instructions: FOLLOW UP WITH PRIVATE DOCTOR TOMORROW. Prescriptions: Levofloxacin [Levaquin] 500 mg PO DAILY #6 tablet
[2017-03-27 19:57] LABS: BASOPHIL % 0.2 % (0.0-0.4); Basophil (Absolute #) 0.01 (0-0.4); Eosinophil % 1.3 % (0.00-5.0); Eosinophil (Absolute #) 0.06 (0-0.5); Granulocytes % 65.1 % (36.0-66.0); Hematocrit 36.1 % (35-47); Hemoglobin 12.2 gm/dl (12.0-16.0); Lymphocytes % 23.9 % (24.0-44.0); Mean Cell Volume 90.7 fl (78-100); Mean Corpuscular Hgb Concent. 33.8 g/dl (32-36); Mean Platelet Volume 10.6 fl (6-9.5); Monocyte (Absolute #) 0.44 (0.0-1.3); Monocytes % 9.5 % (0.0-12.0); Platelet Count 169 K/mm3 (150-450); Red Blood Count 3.98 M/mm3 (4.1-5.4); Red Cell Distribution Width 12.3 % (11.5-14.0); White Blood Count 4.6 K/mm3 (4.0-10.5)
[2017-03-27 20:04] LABS: Mean Corpuscular Hemoglobin 30.6 pg (26-32)
[2017-03-27 20:17] LABS: ALBUMIN 3.6 g/dL (3.4-5.0); ANION GAP 14.2 MEQ/L (5-15); BILIRUBIN,TOTAL 0.3 mg/dL (0.2-1.0); Carbon Dioxide 22.1 mEq/L (21-32); Creatinine 1 1.14 mg/dl (0.55-1.30); Potassium 3.7 mEq/L (3.5-5.1); Total Protein 7.3 gm/dL (6.4-8.2)
[2017-03-27 20:25] LABS: Appearance HAZY (CLEAR); Bilirubin NEGATIVE (NEGATIVE); Blood TRACE NON-HEM Ery/ul (0-5); Glucose NEGATIVE (NEGATIVE); Ketones NEGATIVE (NEGATIVE); Leukocyte Esterase 2+ (NEGATIVE); Nitrite POSITIVE (NEGATIVE); Protein,Urine Dip TRACE (Negative); Urobilinogen NORMAL mg/dL (0-1)
[2017-03-27 20:26] LABS: Bacteria MODERATE /HPF (NEGATIVE); Epithelial Cells MODERATE /HPF (FEW); Mucus MODERATE /HPF (NEGATIVE); WBC 15-25 /HPF (0-5)
[2017-03-27 21:09] VITALS: BP 100/71; PULSE 91
[2017-03-27 21:33] VITALS: O2SAT 93
--- NOTE | 2017-03-28 08:36 | XRAY ---
Indication: Left sided abdominal and back pain. Multiple contiguous axial images obtained through the abdomen and pelvis without contrast as ordered. Comparison: December 20, 2016. Lung bases again demonstrates minimal lingular atelectasis/scarring. Stable left base subcentimeter noncalcified nodule again probably granulomatous. No infiltrate or effusion. Heart is not enlarged. Noncontrasted stomach and bowel loops appear nonobstructed with stable intact sigmoid anastomosis. No free fluid/air. Again calcified splenic granulomas, left renal scarring/cirrhosis, cholecystectomy, and hysterectomy. Remaining liver, pancreas, spleen, adrenal glands, kidneys, ureters, bladder, and aorta appear unremarkable for noncontrast exam. Osseous structures intact again with mild/moderate multilevel degenerative spondylosis. Impression: 1. Stable left renal cyst and postsurgical changes related to right hemicolectomy. 2. Stable left lung base noncalcified micronodule presumed granulomatous in this demographic. 3. No new/acute intra-abdominal/pelvic abnormalities on this noncontrast exam. Comment: Preliminary interpretation was made by C. No discrepancy. CTDI 22.31
== END 2017-03-27 21:50 | disposition home or self-care (01) ==
LOC: ED 18:35
DX: N39.0 Urinary tract infection, site not specified (principal); R10.30 Lower abdominal pain, unspecified; Z79.899 Other long term (current) drug therapy
CPT/HCPCS: 36415; 74176; 80053; 81000; 82150; 83690; 85025; 87077; 87086; 87186; 96374; 99283; 99284; J1642

== ENCOUNTER 2017-05-06 19:05 | Emergency (ER) | payer MEDICARE ==
[2017-05-06] MEDS ORDERED: Sodium Chloride 0.9% 1000 ML 1,000 ML ONE (19:52)
[2017-05-06] MEDS ORDERED: Sodium Chloride 0.9% 1000 ML 1,000 ML IV SCH (20:00)
--- NOTE | 2017-05-06 20:43 | ERPHSYRPT ---
- History of Present Illness Time Seen by Provider: 05/06/17 20:34 Historian: patient Exam Limitations: no limitations Patient Subjective Stated Complaint: pt reports abd is distended just like it was her last visit-states that pain has increased-last bm wednesday-burning and urgency with urination-unsure of fever-pt not a good historian Triage Nursing Assessment: Pt A&O x3, pt reports abd is distended just like it was her last visit-states that pain has increased-last bm wednesday, stated that she is impacted, does not have any large intestines, has been taking her miralax and meds, dribbles and dalton during urination, bowel sounds in all 4 quadrants Physician History: 61-year-old white female with history of chronic abdominal pain bowel, ulcers, GERD, hypothyroidism, chronic urinary tract infection who sees a specialist in [place] secondary to this Arrives with complaint of abdominal distention decreased bowel movements abdominal pain continuing dysuria (chronic UTI 4 months sees a specialist for this) Patient states the abdominal distention and abdominal pain has been increased since Wednesday Patient has not had any vomiting no diarrhea Past medical history includes migraines, cataracts, hypothyroidism, GERD, irritable bowel, ulcers, arthritis, degenerative disc disease, osteoarthritis, anxiety, any recurrent UTI, Past surgical history includes bowel surgery, cholecystectomy, colon resection, hernia repair, hysterectomy, colonoscopy, GERD, feeding tube for 4 years, followed obstructions 2, bladder surgery Timing/Duration: day(s) (6 days) Activities at Onset: none Quality: cramping Abdominal Pain Onset Location: generalized abdomen Pain Radiation: no radiation Severity of Pain-Max: moderate Severity of Pain-Current: mild Modifying Factors: Improves With: nothing Associated Symptoms: other (constipation, dysuria), No back, No chest pain, No diaphoresis, No diarrhea, No fever/chills, No fatigue, No headache, No heartburn , No loss of appetite, No nausea, No neck pain, No rash, No shortness of breath , No syncope, No vomiting, No weakness Previous symptoms: same symptoms as today (Chronic recurrent pain) Allergies/Adverse Reactions: codeine Allergy (Mild, Verified 05/06/17 19:21) Rash MAKES SICK sumatriptan [From Imitrex] Allergy (Verified 05/06/17 19:21) sumatriptan succinate [From Imitrex] Allergy (Verified 05/06/17 19:21) morphine Adverse Reaction (Severe, Verified 05/06/17 19:21) Headache MIGRAINES hydrocodone bitartrate [From Vicodin] Adverse Reaction (Mild, Verified 05/06/17 19:21) Vomiting fentanyl Adverse Reaction (Verified 05/06/17 19:21) Home Medications: Alprazolam 1 mg [Xanax 1 mg] 2 mg PO BID 02/17/13 [History] Rizatriptan Benzoate [Maxalt] 10 mg PO BIDPRN PRN 02/17/13 [History] Linaclotide [Linzess] 290 mcg PO DAILY 07/13/14 [History] Polyethylene Glycol 3350 17 gm [Miralax Powder 17GM PACKET] 34 gm PO TID PRN 11/15/14 [History] Sennosides/Docusate Sodium [Senokot-S Tablet] 2 tab PO BID 04/25/15 [History] Promethazine HCl 25 mg [Phenergan 25 mg] 25 mg PO Q4HPRN PRN 05/11/15 [ History] Cetirizine HCl/Pseudoephedrine [Zyrtec-D Tablet] 1 each PO DAILY 02/03/16 [ History] Aspirin 81 mg PO DAILY 09/11/16 [History] Levothyroxine Sodium 0.5 tab PO DAILY 09/11/16 [History] Omeprazole 40 mg PO DAILY 09/11/16 [History] Oxycodone HCl 10 mg PO Q8H PRN PRN 12/16/16 [History] Hx Tetanus, Diphtheria Vaccination/Date Given: Yes Hx Influenza Vaccination/Date Given: Yes Hx Pneumococcal Vaccination/Date Given: No Immunizations Up to Date: Yes - Review of Systems Constitutional: No Fever, No Chills Eyes: No Symptoms Ears, Nose, & Throat: No Symptoms Respiratory: No Cough, No Dyspnea Cardiac: No Chest Pain, No Edema, No Syncope Abdominal/Gastrointestinal: Abdominal Pain, Constipation, No Nausea, No Vomiting , No Diarrhea, No Hematemesis, No Hematochezia, No Melena, No Dysphagia, No Appetite Changes Genitourinary Symptoms: Dysuria, Frequency Musculoskeletal: No Back Pain, No Neck Pain Skin: No Rash Neurological: No Dizziness, No Focal Weakness, No Sensory Changes Psychological: No Symptoms Endocrine: No Symptoms All Other Systems: Reviewed and Negative - Past Medical History Pertinent Past Medical History: Yes Neurological History: Migraines ENT History: Cataracts, Other Cardiac History: No Pertinent History Respiratory History: Other Endocrine Medical History: Hypothyroidism, Other Musculoskeletal History: Arthritis, Degenerative Disk Disease, Osteoarthritis, Other GI Medical History: GERD, Irritable Bowel, Ulcer, Other History: Other Psycho-Social History: Anxiety Female Reproductive Disorders: Other Other Medical History: Recurrent UTI,urine kidney/bladder problems recurrent. 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 Total colectomy. FEEDING TUBE FOR 4 YEARS, stretches of bladder and urethra, bowel obstructions x2, lithotripsy. - Social History Smoking Status: Never smoker Exposure to second hand smoke: No Alcohol Use: None Drug Use: none Patient Lives Alone: Yes Significant Family History: no pertinent family hx - Female History Hx Now: No - Nursing Vital Signs Nursing Vital Signs: Initial Vital Signs Temperature 98.7 F 05/06/17 19:17 Pulse Rate 124 H 05/06/17 19:17 Respiratory Rate 18 05/06/17 19:17 Blood Pressure 135/94 05/06/17 19:17 O2 Sat by Pulse Oximetry 95 05/06/17 19:17 Pain Scale Pain Intensity 7 - Physical Exam General Appearance: no apparent distress, alert Eye Exam: PERRL/EOMI, eyes nml inspection Ears, Nose, Throat Exam: normal ENT inspection, pharynx normal, moist mucous membranes Neck Exam: normal inspection, non-tender, supple, full range of motion Respiratory Exam: normal breath sounds, lungs clear, No respiratory distress Cardiovascular Exam: regular rate/rhythm, normal heart sounds, normal peripheral pulses Gastrointestinal/Abdomen Exam: soft, normal bowel sounds, tenderness (mild diffuse tenderness), distention (mildly distended) Back Exam: normal inspection, normal range of motion, No CVA tenderness, No vertebral tenderness Extremity Exam: normal inspection, normal range of motion, pelvis stable Neurologic Exam: alert, 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, cooperative, normal mood/affect, nml cerebellar function, sensation nml, No motor deficits Skin Exam: normal color, warm, dry SpO2 Interpretation: normal (95%) SpO2: 95 Oxygen Delivery: Room Air - Course Nursing assessment & vital signs reviewed: Yes - CT Exams Abdomen/Pelvis CT Interpretation: Discussed w/radiologist (CT abdomen and pelvis: Stable left renal cyst and right hemicolectomy compared to March 27, 2017. No new or acute findings) Ordered Tests: Active Orders 24 hr Category Date Time Status IV Insertion STAT Care 05/06/17 19:49 Active ABDOMEN AND PELVIS W/0 CONTRAS [CT] Stat Exams 05/06/17 20:38 Taken AMYLASE Stat Lab 05/06/17 20:40 Completed CBC W DIFF Stat Lab 05/06/17 20:40 Completed CMP Stat Lab 05/06/17 20:40 Completed CULTURE,URINE Stat Lab 05/06/17 21:20 Received LIPASE Stat Lab 05/06/17 20:40 Completed UA W/ MICROSCOPIC Stat Lab 05/06/17 21:20 Completed Medication Summary Discontinued Medications Generic Name Dose Route Start Last Admin Trade Name Freq PRN Reason Stop Dose Admin Heparin Sodium (Beef Lung) 500 units 05/06/17 23:59 05/07/17 00:02 Heparin Lock Flush 100 Units/Ml 5ml Syringe PORT FLUSH 06/05/17 23:58 500 units PRN PRN Administration IV PORT FLUSH Heparin Sodium (Beef Lung) Confirm 05/07/17 00:01 Heparin Lock Flush 100 Units/Ml 5ml Syringe Administered 05/07/17 00:02 Dose 500 units .ROUTE .STK-MED ONE Sodium Chloride 1,000 mls @ 100 mls/hr 05/06/17 20:00 05/06/17 19:52 Sodium Chloride 0.9% 1000 Ml IV 06/05/17 19:59 100 mls/hr .Q10H JENNIFER Administration Sodium Chloride 1,000 mls @ 999 mls/hr 05/06/17 23:01 05/06/17 23:06 Sodium Chloride 0.9% 1000 Ml IV 05/07/17 00:01 Not Given .Q1H1M STA Sodium Chloride Confirm 05/06/17 19:52 Sodium Chloride 0.9% 1000 Ml Administered 05/06/17 19:53 Dose 1,000 mls @ ud .ROUTE .STK-MED ONE Ketorolac Tromethamine 30 mg 05/06/17 23:01 05/06/17 23:06 Toradol 30 Mg Injection IV 05/06/17 23:02 Not Given STAT ONE Lab/Rad Data: Laboratory Result Diagrams 05/06/17 20:40 05/06/17 20:40 Laboratory Results 05/06/17 05/06/17 05/06/17 Range/Units 21:20 20:40 20:40 WBC 4.2 (4.0-10.5) K/mm3 RBC 4.48 (4.1-5.4) M/mm3 Hgb 13.5 (12.0-16.0) gm/dl Hct 40.4 (35-47) % MCV 90.2 (78-100) fl MCH 30.1 (26-32) pg MCHC 33.4 (32-36) g/dl RDW 12.7 (11.5-14.0) % Plt Count 187 (150-450) K/mm3 MPV 10.2 H (6-9.5) fl Gran % 61.8 (36.0-66.0) % Eos # (Auto) 0.10 (0-0.5) Lymphocytes % 27.6 (24.0-44.0) % Monocytes % 7.7 (0.0-12.0) % Eosinophils % 2.4 (0.00-5.0) % Basophils % 0.5 (0.0-0.4) % Absolute Granulocytes 2.58 (1.4-6.9) Basophils # 0.02 (0-0.4) Sodium 140 (137-145) mmol/L Potassium 4.2 (3.5-5.1) mmol/L Chloride 106 (98-107) mmol/L Carbon Dioxide 21 L (22-30) mmol/L Anion Gap 17.3 H (5-15) MEQ/L BUN 20 H (7-17) mg/dL Creatinine 1.14 H (0.52-1.04) mg/dL Estimated GFR 52 ML/MIN Glucose 109 H (74-106) mg/dL Calcium 9.4 (8.4-10.2) mg/dL Total Bilirubin 0.60 (0.2-1.3) mg/dL AST 24 (14-36) U/L ALT 17 (0-35) U/L Alkaline Phosphatase 91 (38-126) U/L Serum Total Protein 7.6 (6.3-8.2) g/dL Albumin 4.2 (3.5-5.0) g/dL Amylase 87 (30-110) U/L Lipase 132 (23-300) U/L Ur Collection Type CLEAN CATCH Urine Color ORANGE (YELLOW) Urine Appearance CLOUDY (CLEAR) Urine pH COLOR INTERFERENCE (5-6) Ur Specific Hasty COLOR INTERFERENCE (1.005-1.025) Urine Protein COLOR INTERFERENCE (Negative) Urine Ketones COLOR INTERFERENCE (NEGATIVE) Urine Blood COLOR INTERFERENCE (0-5) Aroldo/ul Urine Nitrite COLOR INTERFERENCE (NEGATIVE) Urine Bilirubin COLOR INTERFERENCE (NEGATIVE) Urine Urobilinogen COLOR INTERFERENCE (0-1) mg/dL Ur Leukocyte Esterase COLOR INTERFERENCE (NEGATIVE) Urine Microscopic RBC 5-10 (0-2) /HPF Urine Microscopic WBC 25-50 (0-5) /HPF Ur Epithelial Cells FEW (FEW) /HPF Urine Bacteria MODERATE (NEGATIVE) /HPF Urine Culture Reflexed YES (NO) Urine Glucose COLOR INTERFERENCE (NEGATIVE) mg/dL Specimen Received 05/06/172119 - Progress Progress: improved Progress Note: 05/06/17 22:56 61-year-old white female with history of chronic abdominal pain his chart and a chronic urinary tract infection arrives with complaint of a mild diffuse abdominal pain in the dysuria symptoms going on for several days On physical examination patient with some mild generalized abdominal tenderness patient did state that she has not had a stool since Wednesday patient with no palpable stool on rectal examination Patient's white count is 4.7 hemoglobin 13.5 hematocrit 40.4 chemistry essentially normal urinalysis shows 25-50 white cells per high-power field Patient is chronically on oxycodone 10 mg she refilled 45 of these on 2017 she is also on Xanax she refilled 6 disease on April 26, 2017 Patient is asking for pain medication despite being on her oxycodone And has chronic abdominal pain. I did a CT of her abdomen which shows stable left renal cyst and right hemicolectomy no new or acute findings as compared to March 27, 2017 patient also with chronic urinary tract infection for which she sees a urologist in [place] I've discussed the patient's case with Dr. Benz she tells me that unless the patient appears to be very sick she really should not be given antibiotics secondary to her chronic urinary tract infection Will deferred antibiotics at this time. Patient has been given 1 L of normal saline Will give her a second liter of normal saline and give her Toradol for pain. patient does have a prescription from [facility] she is to take this as prescribed - Departure Time of Disposition: 22:59 Departure Disposition: Home Clinical Impression: Chronic constipation, Chronic urinary tract infection Abdominal pain Qualifiers: Abdominal location: generalized Qualified Code(s): R10.84 - Generalized abdominal pain Condition: Fair Critical Care Time: No Referrals: PAWEL BENZ [Primary Care Provider] - Additional Instructions: Return home. Plenty of fluids clear fluids only 24-48 hours if abdominal pain. Pain medication and Juanis lax as prescribed by your family doctor. Follow-up with your family doctor. Return for acute distress or for severe symptoms.
[2017-05-06 20:46] LABS: BASOPHIL % 0.5 % (0.0-0.4); Basophil (Absolute #) 0.02 (0-0.4); Eosinophil % 2.4 % (0.00-5.0); Granulocyte Absolute (ANC) 2.58 (1.4-6.9); Granulocytes % 61.8 % (36.0-66.0); Hematocrit 40.4 % (35-47); Hemoglobin 13.5 gm/dl (12.0-16.0); Lymphocyte (Absolute #) 1.15 (1.0-4.6); Lymphocytes % 27.6 % (24.0-44.0); Mean Cell Volume 90.2 fl (78-100); Mean Corpuscular Hemoglobin 30.1 pg (26-32); Mean Corpuscular Hgb Concent. 33.4 g/dl (32-36); Mean Platelet Volume 10.2 fl (6-9.5); Monocyte (Absolute #) 0.32 (0.0-1.3); Monocytes % 7.7 % (0.0-12.0); Platelet Count 187 K/mm3 (150-450); Red Blood Count 4.48 M/mm3 (4.1-5.4); Red Cell Distribution Width 12.7 % (11.5-14.0); White Blood Count 4.2 K/mm3 (4.0-10.5)
[2017-05-06 21:08] LABS: ALBUMIN 4.2 g/dL (3.5-5.0); ANION GAP 17.3 MEQ/L (5-15); BILIRUBIN,TOTAL 0.6 mg/dL (0.2-1.3); Calcium 9.4 mg/dL (8.4-10.2); Creatinine 1 1.14 mg/dL (0.52-1.04); Potassium 4.2 mmol/L (3.5-5.1); Total Protein 7.6 g/dL (6.3-8.2)
[2017-05-06 21:35] LABS: Appearance CLOUDY (CLEAR)
[2017-05-06 21:39] LABS: Bilirubin COLOR INTERFERENCE (NEGATIVE); Blood COLOR INTERFERENCE Ery/ul (0-5); Glucose COLOR INTERFERENCE mg/dL (NEGATIVE); Ketones COLOR INTERFERENCE (NEGATIVE); Leukocyte Esterase COLOR INTERFERENCE (NEGATIVE); Nitrite COLOR INTERFERENCE (NEGATIVE); Ph COLOR INTERFERENCE (5-6); Protein,Urine Dip COLOR INTERFERENCE (Negative); Specific Gravity COLOR INTERFERENCE (1.005-1.025); Urobilinogen COLOR INTERFERENCE mg/dL (0-1)
[2017-05-06 21:49] LABS: WBC 25-50 /HPF (0-5)
[2017-05-06 21:50] LABS: Bacteria MODERATE /HPF (NEGATIVE); Epithelial Cells FEW /HPF (FEW)
[2017-05-06] MEDS ORDERED: Sodium Chloride 0.9% 1000 ML 1,000 ML IV STA (23:01)
[2017-05-06] MEDS ORDERED: TORAdol 30 mg Injection IV ONE (23:01)
[2017-05-07 00:13] VITALS: BP 144/90; PULSE 98
[2017-05-07 05:44] VITALS: O2SAT 95
--- NOTE | 2017-05-07 09:21 | XRAY ---
Indication: Abdominal pain. Multiple contiguous axial images obtained through the abdomen and pelvis without contrast as ordered. Comparison: March 27, 2017. Lung bases demonstrate stable minimal left base atelectasis/scarring, calcified granuloma, and noncalcified micronodule. No infiltrate or effusion. Heart is not enlarged. Stable distal paraesophageal calcified node. Noncontrasted stomach and bowel loops again nonobstructed with again previous right hemicolectomy. Stable intact sigmoid anastomosis. Stable left renal scarring, cholecystectomy, hysterectomy, pelvic phleboliths, and calcified splenic granulomas. No free fluid/air. Remaining liver, pancreas, spleen, adrenal glands, kidneys, ureters, bladder, and aorta are unremarkable for noncontrast exam. Osseous structures intact with stable multilevel degenerative spondylosis. Impression: 1. Stable left renal scarring and postsurgical changes. 2. No new or acute intra-abdominal/pelvic abnormalities on this noncontrast exam. 3. Stable left lung base calcified and noncalcified micronodules presumed granulomatous in this demographic. CT DI 19.45
== END 2017-05-07 00:15 | disposition home or self-care (01) ==
LOC: ED 19:05
DX: K59.09 Other constipation (principal); N39.0 Urinary tract infection, site not specified; R10.84 Generalized abdominal pain; Z79.899 Other long term (current) drug therapy; N28.1 Cyst of kidney, acquired
CPT/HCPCS: 36000; 36415; 74176; 80053; 81000; 82150; 83690; 85025; 87077; 87086; 87186; 96360; 96365; 99284; J1642

== ENCOUNTER 2017-06-05 19:12 | Emergency (ER) | payer MEDICARE ==
[2017-06-05] MEDS ORDERED: TORAdol 30 mg Injection IV ONE (19:55)
[2017-06-05] MEDS ORDERED: Norflex 60 MG/2 ML IV ONE (19:55)
[2017-06-05] MEDS ORDERED: Zofran 4 MG/2 ML VIAL IV ONE (19:55)
[2017-06-05] MEDS ORDERED: Sodium Chloride 0.9% 1000 ML 1,000 ML IV STA (19:55)
--- NOTE | 2017-06-05 20:00 | ERPHSYRPT ---
- History of Present Illness Time Seen by Provider: 06/05/17 19:59 Source: patient Exam Limitations: no limitations Patient Subjective Stated Complaint: pt states she has had a migraine since approx 6 am when she woke up. states she has throbing pain and tightness all over her head. descibes as the worst headache she has ever had. Triage Nursing Assessment: pt alert and oriented, answers questions approp. pt ambualtory with steady gait noted. respirations nonlabored. pupils equal and reactive. bilat upper and lower ext strength equal. Physician History: pt states she has had a migraine since approx 6 am when she woke up. states she has throbbing pain and tightness all over her head. descibes as the worst headache she has ever had. pt ambualtory with steady gait Timing/Duration: today Quality: aching, throbbing Head Pain Location: frontal Severity of Pain-Max: severe Severity of Pain-Current: severe Recent Head Trauma: no recent headache/trauma Modifying Factors: Improves With: exposure to light Associated Symptoms: facial pain, nausea/vomiting, numbness in legs/feet, No loss of consciousness, No neck pain, No stiff neck Allergies/Adverse Reactions: codeine Allergy (Mild, Verified 05/06/17 19:21) Rash MAKES SICK sumatriptan [From Imitrex] Allergy (Verified 05/06/17 19:21) sumatriptan succinate [From Imitrex] Allergy (Verified 05/06/17 19:21) morphine Adverse Reaction (Severe, Verified 05/06/17 19:21) Headache MIGRAINES hydrocodone bitartrate [From Vicodin] Adverse Reaction (Mild, Verified 05/06/17 19:21) Vomiting fentanyl Adverse Reaction (Verified 05/06/17 19:21) Home Medications: Alprazolam 1 mg [Xanax 1 mg] 2 mg PO BID 02/17/13 [History] Rizatriptan Benzoate [Maxalt] 10 mg PO BIDPRN PRN 02/17/13 [History] Linaclotide [Linzess] 290 mcg PO DAILY 07/13/14 [History] Polyethylene Glycol 3350 17 gm [Miralax Powder 17GM PACKET] 34 gm PO TID PRN 11/15/14 [History] Sennosides/Docusate Sodium [Senokot-S Tablet] 2 tab PO BID 04/25/15 [History] Promethazine HCl 25 mg [Phenergan 25 mg] 25 mg PO Q4HPRN PRN 05/11/15 [ History] Cetirizine HCl/Pseudoephedrine [Zyrtec-D Tablet] 1 each PO DAILY 02/03/16 [ History] Aspirin 81 mg PO DAILY 09/11/16 [History] Levothyroxine Sodium 0.5 tab PO DAILY 09/11/16 [History] Omeprazole 40 mg PO DAILY 09/11/16 [History] Oxycodone HCl 10 mg PO Q8H PRN PRN 12/16/16 [History] Hx Tetanus, Diphtheria Vaccination/Date Given: Yes Hx Influenza Vaccination/Date Given: Yes Hx Pneumococcal Vaccination/Date Given: No Immunizations Up to Date: Yes - Review of Systems Constitutional: No Fever, No Chills Eyes: No Symptoms Ears, Nose, & Throat: No Symptoms Respiratory: No Cough, No Dyspnea Cardiac: No Chest Pain, No Edema, No Syncope Abdominal/Gastrointestinal: No Abdominal Pain, No Nausea, No Vomiting, No Diarrhea Genitourinary Symptoms: No Dysuria Musculoskeletal: No Back Pain, No Neck Pain Skin: No Rash Neurological: Headache, Sensory Changes, No Dizziness, No Focal Weakness Psychological: No Symptoms Endocrine: No Symptoms All Other Systems: Reviewed and Negative - Past Medical History Pertinent Past Medical History: Yes Neurological History: Migraines ENT History: Cataracts, Other Cardiac History: No Pertinent History Respiratory History: Other Endocrine Medical History: Hypothyroidism, Other Musculoskeletal History: Arthritis, Degenerative Disk Disease, Osteoarthritis, Other GI Medical History: GERD, Irritable Bowel, Ulcer, Other History: Other Psycho-Social History: Anxiety Female Reproductive Disorders: Other Other Medical History: Recurrent UTI,urine kidney/bladder problems recurrent. 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 Total colectomy. FEEDING TUBE FOR 4 YEARS, stretches of bladder and urethra, bowel obstructions x2, lithotripsy. - Social History Smoking Status: Never smoker Exposure to second hand smoke: No Alcohol Use: None Drug Use: none Patient Lives Alone: Yes Significant Family History: no pertinent family hx - Nursing Vital Signs Nursing Vital Signs: Initial Vital Signs Temperature 98.2 F 06/05/17 19:30 Pulse Rate 102 H 06/05/17 19:30 Respiratory Rate 18 06/05/17 19:30 Blood Pressure 151/92 06/05/17 19:30 O2 Sat by Pulse Oximetry 96 06/05/17 19:30 Pain Scale Pain Intensity 10 - Physical Exam General Appearance: no apparent distress Eye Exam: PERRL/EOMI Ears, Nose, Throat Exam: normal ENT inspection, moist mucous membranes Neck Exam: normal inspection, supple, full range of motion, No meningismus Respiratory Exam: normal breath sounds, lungs clear Cardiovascular Exam: regular rate/rhythm, normal heart sounds Gastrointestinal/Abdominal Exam: soft, No tenderness, No distention Back Exam: normal inspection, normal range of motion 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, 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, 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 Exam: normal speech, PERRL, No facial droop Coordination/Gait Exam: normal cerebellar function Motor/Sensory Exam: no motor deficit, no sensory deficit Skin Exam: normal color, warm, dry, No rash SpO2: 96 Oxygen Delivery: Room Air - Course Nursing assessment & vital signs reviewed: Yes Ordered Tests: Active Orders 24 hr Category Date Time Status Oxygen-ED Only NASAL CANNULA 2 lpm Care 06/05/17 19:55 Active Medication Summary Generic Name Dose Route Start Last Admin Trade Name Freq PRN Reason Stop Dose Admin Sodium Chloride 1,000 mls @ 999 mls/hr 06/05/17 19:55 06/05/17 20:14 Sodium Chloride 0.9% 1000 Ml IV 06/05/17 20:55 999 mls/hr .Q1H1M STA Administration Discontinued Medications Generic Name Dose Route Start Last Admin Trade Name Freq PRN Reason Stop Dose Admin Sodium Chloride Confirm 06/05/17 20:04 Sodium Chloride 0.9% 1000 Ml Administered 06/05/17 20:05 Dose 1,000 mls @ ud .ROUTE .STK-MED ONE Ketorolac Tromethamine 30 mg 06/05/17 19:55 06/05/17 20:14 Toradol 30 Mg Injection IV 06/05/17 19:56 30 mg STAT ONE Administration Ketorolac Tromethamine Confirm 06/05/17 20:04 Toradol 30 Mg Injection Administered 06/05/17 20:05 Dose 30 mg .ROUTE .STK-MED ONE Ondansetron HCl 4 mg 06/05/17 19:55 06/05/17 20:14 Zofran 4 Mg/2 Ml Vial IV 06/05/17 19:56 4 mg STAT ONE Administration Ondansetron HCl Confirm 06/05/17 20:04 Zofran 4 Mg/2 Ml Vial Administered 06/05/17 20:05 Dose 4 mg .ROUTE .STK-MED ONE Orphenadrine Citrate 60 mg 06/05/17 19:55 06/05/17 20:15 Norflex 60 Mg/2 Ml IV 06/05/17 19:56 60 mg STAT ONE Administration Orphenadrine Citrate Confirm 06/05/17 20:04 Norflex 60 Mg/2 Ml Administered 06/05/17 20:05 Dose 60 mg .ROUTE .STK-MED ONE - Progress Progress: improved Air Movement: good Blood Culture(s) Obtained: No Antibiotics given: No Counseled pt/family regarding: diagnosis, need for follow-up - Departure Time of Disposition: 20:23 Departure Disposition: Home Clinical Impression: Migraine headache Qualifiers: Migraine type: with aura Status migrainosus presence: with status migrainosus Intractability: intractable Qualified Code(s): G43.111 - Migraine with aura, intractable, with status migrainosus Condition: Stable Critical Care Time: No Referrals: PAWEL JAMIL [Primary Care Provider] - Instructions: Headache, Adult (DC), Migraine Headache (DC), Migraine Headaches in Adults Additional Instructions: HEADACHE 1. After discharge from the emergency department, you should rest at home in a cool, dark, quiet place for 12-24 hours. 2. If any of the following signs or symptoms are noticed, you should be re- evaluated right away: A. Visual changes B. Stiff Neck C. Change in quality or location of pain D. Fever E. Recurrent vomiting 3. If pain medications were prescribed or given, they may cause drowsiness. SHANTEGEOVANNY SHERRIE was seen on 06/05/17 n the Emergency Room. At that time you were treated for an emergent condition, during your visit Laboratory, Radiology and/or other procedures may have been ordered. It is very important that you follow-up with your Primary Care Physician PAWEL JAMIL within the next 24-48 hours to review your Emergency Room visit and the final results of testing that was ordered. Some test results such as Urine Cultures, Blood Cultures, and other cultures if ordered will not be finalized for 24-48 hours. If you do not have a Primary Care Provider please call the medical records department at [phone] to obtain a copy of your results or you may sign into our patient portal to obtain these results by visiting us @ [email or web address] and completing the following steps: 1. Click on the Patient Portal link 2. Click the Patient Self Enrollment Link to complete the enrollment form and entering your 3. Once the enrollment form is completed you will receive an email with a temporary ID and password at the email address you provided. 4. Next choose a user name and password. Your user name must be at least 4 characters long and your password must be at least 4 characters long. 5. Choose a security question from the list and provide your answer to the question. If you already have signed into the Health Portal you may access your Health Care Information 07/09 by the following steps: 1. Login to our website @ [email or web address] 2. Enter your original user name and password. FAQS The [facility] Health Portal is an online tool that contains your Lab Results, Radiology Reports, Visit History, Discharge Instructions and Health Summary Lab and Radiology Results will not be available for 72 hours on the portal. The Portal is a secure site, passwords are encryted and URLs are re-written so they cannot be copied and pasted. You and authorized family members are the only ones who can access your Portal. Also there is a timeout feature that protects your information if you leave the Portal page open. If you have technical difficulty please use the Contact Us link on the page this will allow you to submit any questions you have regarding the Portal or you may contact the Medical Record Department at [phone].
[2017-06-05] MEDS ORDERED: Sodium Chloride 0.9% 1000 ML 1,000 ML ONE (20:04)
[2017-06-05] MEDS ORDERED: Zofran 4 MG/2 ML VIAL ONE (20:04)
[2017-06-05] MEDS ORDERED: TORAdol 30 mg Injection ONE (20:04)
[2017-06-05] MEDS ORDERED: Norflex 60 MG/2 ML ONE (20:04)
[2017-06-05 21:07] VITALS: BP 148/94; PULSE 98; O2SAT 98
== END 2017-06-05 21:08 | disposition home or self-care (01) ==
LOC: ED 19:12
DX: G43.111 Migraine with aura, intractable, with status migrainosus (principal); Z79.899 Other long term (current) drug therapy; R11.2 Nausea with vomiting, unspecified; R55 Syncope and collapse; R20.0 Anesthesia of skin; E03.9 Hypothyroidism, unspecified
CPT/HCPCS: 96360; 96374; 96375; 99283; 99284; J1642; J1885; J2360; J2405

== ENCOUNTER 2017-07-05 19:34 | Observation (INO) | payer MEDICARE ==
[2017-07-05] MEDS ORDERED: Zofran 4 MG/2 ML VIAL IV ONE (19:51)
[2017-07-05] MEDS ORDERED: Sodium Chloride 0.9% 1000 ML 1,000 ML IV STA (19:51)
[2017-07-05] MEDS ORDERED: BENADRYL 50 MG/ML IV ONE (19:52)
[2017-07-05] MEDS ORDERED: TORAdol 30 mg Injection IV ONE (19:53)
[2017-07-05] MEDS ORDERED: Zofran 4 MG/2 ML VIAL ONE (19:58)
[2017-07-05] MEDS ORDERED: TORAdol 30 mg Injection ONE (19:58)
[2017-07-05] MEDS ORDERED: Sodium Chloride 0.9% 1000 ML 1,000 ML ONE (19:58)
[2017-07-05] MEDS ORDERED: BENADRYL 50 MG/ML ONE (19:58)
--- NOTE | 2017-07-05 20:08 | ERPHSYRPT ---
- History of Present Illness Time Seen by Provider: 07/05/17 19:44 Source: patient Exam Limitations: no limitations Patient Subjective Stated Complaint: Pt arrives to ER via EMS from home with c/ o headache and dizziness stating headache began today, saw chiropractor for neck adjustment to help with headache, came home, took maxalt and oxycodone 10mg , used ice pack and tried to stand up and became dizzy and sat back down. denies falling or injury. Also states vomited twice but states that is normal for her. hx of migraines. Denies fever or other sickness. Triage Nursing Assessment: see above Physician History: Pt started c/o gen. headaches since this morning, vomited once. She was treated by her chiropractor today, made some neck adjustments, but her headaches became worse. She denies fever, chills, sore throat cough, chest pain or other complaints, she has been dizzy, feels spinning, when upright. She took Phenergan this morning, and Maxalt this afternoon. Timing/Duration: today Quality: throbbing Head Pain Location: global Severity of Pain-Max: severe Severity of Pain-Current: severe Recent Head Trauma: no recent headache/trauma Modifying Factors: Improves With: movement Associated Symptoms: dizziness, nausea/vomiting Previous symptoms: same symptoms as today Allergies/Adverse Reactions: codeine Allergy (Mild, Verified 07/05/17 19:52) Rash MAKES SICK sumatriptan [From Imitrex] Allergy (Verified 07/05/17 19:52) sumatriptan succinate [From Imitrex] Allergy (Verified 07/05/17 19:52) morphine Adverse Reaction (Severe, Verified 07/05/17 19:52) Headache MIGRAINES hydrocodone bitartrate [From Vicodin] Adverse Reaction (Mild, Verified 07/05/17 19:52) Vomiting fentanyl Adverse Reaction (Verified 07/05/17 19:52) Home Medications: Alprazolam 1 mg [Xanax 1 mg] 2 mg PO BID 02/17/13 [History] Rizatriptan Benzoate [Maxalt] 10 mg PO BIDPRN PRN 02/17/13 [History] Linaclotide [Linzess] 290 mcg PO DAILY 07/13/14 [History] Polyethylene Glycol 3350 17 gm [Miralax Powder 17GM PACKET] 34 gm PO TID PRN 11/15/14 [History] Sennosides/Docusate Sodium [Senokot-S Tablet] 2 tab PO BID 04/25/15 [History] Promethazine HCl 25 mg [Phenergan 25 mg] 25 mg PO Q4HPRN PRN 05/11/15 [ History] Cetirizine HCl/Pseudoephedrine [Zyrtec-D Tablet] 1 each PO DAILY 02/03/16 [ History] Aspirin 81 mg PO DAILY 09/11/16 [History] Levothyroxine Sodium 0.5 tab PO DAILY 09/11/16 [History] Omeprazole 40 mg PO DAILY 09/11/16 [History] Oxycodone HCl 10 mg PO Q8H PRN PRN 12/16/16 [History] Hx Tetanus, Diphtheria Vaccination/Date Given: Yes Hx Influenza Vaccination/Date Given: Yes Hx Pneumococcal Vaccination/Date Given: No - Review of Systems Constitutional: No Symptoms Abdominal/Gastrointestinal: Nausea, Vomiting Neurological: Dizziness, Headache, Vertigo All Other Systems: Reviewed and Negative - Past Medical History Pertinent Past Medical History: Yes Neurological History: Migraines ENT History: Cataracts, Other Cardiac History: No Pertinent History Respiratory History: Other Endocrine Medical History: Hypothyroidism, Other Musculoskeletal History: Arthritis, Degenerative Disk Disease, Osteoarthritis, Other GI Medical History: GERD, Irritable Bowel, Ulcer, Other History: Other Psycho-Social History: Anxiety Female Reproductive Disorders: Other Other Medical History: Recurrent UTI,urine kidney/bladder problems recurrent. 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 Total colectomy. FEEDING TUBE FOR 4 YEARS, stretches of bladder and urethra, bowel obstructions x2, lithotripsy. - Social History Smoking Status: Never smoker Exposure to second hand smoke: No Alcohol Use: None Drug Use: none Patient Lives Alone: Yes Significant Family History: no pertinent family hx - Nursing Vital Signs Nursing Vital Signs: Initial Vital Signs Temperature 98.5 F 05/21/18 19:46 Pulse Rate 93 H 07/05/17 19:46 Respiratory Rate 16 07/05/17 19:46 Blood Pressure 118/70 07/05/17 19:46 O2 Sat by Pulse Oximetry 97 07/05/17 19:46 Pain Scale Pain Intensity 6 - Physical Exam General Appearance: no apparent distress Eye Exam: PERRL/EOMI, eyes nml inspection Ears, Nose, Throat Exam: normal ENT inspection, TMs normal, pharynx normal, moist mucous membranes Neck Exam: normal inspection, non-tender, supple, No mass, No JVD Respiratory Exam: normal breath sounds, lungs clear, airway intact, No chest tenderness Cardiovascular Exam: regular rate/rhythm, normal heart sounds, normal peripheral pulses, No murmur Gastrointestinal/Abdominal Exam: soft, normal bowel sounds, No tenderness, No distention, No mass Extremity Exam: normal inspection 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, 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, 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 Exam: normal speech, PERRL Coordination/Gait Exam: normal cerebellar function Motor/Sensory Exam: no motor deficit DTR Exam: knee (R): 3+, knee (L): 3+, ankle (R): 3+, ankle (L): 3+ Skin Exam: normal color, warm, dry, No rash Lymphatic Exam: No adenopathy SpO2 Interpretation: normal SpO2: 97 Oxygen Delivery: Room Air - Course Nursing assessment & vital signs reviewed: Yes EKG Interpreted by Me: RATE (89/min), NORMAL AXIS, NORMAL INTERVALS, Non- specific ST Changes - CT Exams Head CT Interpretation: Negative, Tele-radiologist Report Ordered Tests: Active Orders 24 hr Category Date Time Status Experimental Machinist STAT Care 07/05/17 19:51 Active EKG-ER Only STAT Care 07/05/17 19:51 Active IV Insertion STAT Care 07/05/17 19:51 Active Orthostatic Vital Signs STAT Care 07/05/17 19:51 Active HEAD WITHOUT CONTRAST [CT] Stat Exams 07/05/17 19:51 Taken CBC W DIFF Stat Lab 07/05/17 20:05 Completed CMP Stat Lab 07/05/17 20:05 Completed ETHYL ALCOHOL Stat Lab 07/05/17 20:05 Completed Erythrocyte Sedimentation Rate Stat Lab 07/05/17 20:05 Completed MAGNESIUM Stat Lab 07/05/17 20:05 Completed PROTIME WITH INR Stat Lab 07/05/17 20:05 Completed TROPONIN Q3H Lab 07/05/17 20:05 Completed TROPONIN Q3H Lab 07/05/17 23:00 Ordered TROPONIN Q3H Lab 07/06/17 02:00 Ordered TROPONIN Q3H Lab 07/06/17 05:00 Ordered TROPONIN Q3H Lab 07/06/17 08:00 Ordered UA W/ MICROSCOPIC Stat Lab 07/05/17 21:45 Completed Urine Triage Profile Stat Lab 07/05/17 21:45 Completed Medication Summary Generic Name Dose Route Start Last Admin Trade Name Freq PRN Reason Stop Dose Admin Aspirin 325 mg 07/06/17 22:44 Ecotrin 325 Mg PO 07/06/17 22:45 NOW ONE Discontinued Medications Generic Name Dose Route Start Last Admin Trade Name Freq PRN Reason Stop Dose Admin Diphenhydramine HCl 25 mg 07/05/17 19:52 07/05/17 20:03 Benadryl 50 Mg/Ml IV 07/05/17 19:53 25 mg STAT ONE Administration Diphenhydramine HCl Confirm 07/05/17 19:58 Benadryl 50 Mg/Ml Administered 07/05/17 19:59 Dose 50 mg .ROUTE .STK-MED ONE Sodium Chloride 1,000 mls @ 999 mls/hr 07/05/17 19:51 07/05/17 21:53 Sodium Chloride 0.9% 1000 Ml IV 07/05/17 20:51 Infused .Q1H1M STA Infusion Sodium Chloride Confirm 07/05/17 19:58 Sodium Chloride 0.9% 1000 Ml Administered 07/05/17 19:59 Dose 1,000 mls @ ud .ROUTE .STK-MED ONE Ketorolac Tromethamine 30 mg 07/05/17 19:53 07/05/17 20:03 Toradol 30 Mg Injection IV 07/05/17 19:54 30 mg STAT ONE Administration Ketorolac Tromethamine Confirm 07/05/17 19:58 Toradol 30 Mg Injection Administered 07/05/17 19:59 Dose 30 mg .ROUTE .STK-MED ONE Meclizine HCl 25 mg 07/05/17 21:14 07/05/17 21:18 Antivert 25 Mg PO 07/05/17 21:15 25 mg STAT ONE Administration Meclizine HCl Confirm 05/21/18 21:16 Antivert 25 Mg Administered 07/05/17 21:17 Dose 25 mg .ROUTE .STK-MED ONE Ondansetron HCl 4 mg 07/05/17 19:51 07/05/17 20:03 Zofran 4 Mg/2 Ml Vial IV 07/05/17 19:52 4 mg STAT ONE Administration Ondansetron HCl Confirm 07/05/17 19:58 Zofran 4 Mg/2 Ml Vial Administered 07/05/17 19:59 Dose 4 mg .ROUTE .STK-MED ONE Lab/Rad Data: Laboratory Result Diagrams 07/05/17 20:05 07/05/17 20:05 Laboratory Results 07/05/17 07/05/17 07/05/17 Range/Units 21:45 21:45 20:05 WBC (4.0-10.5) K/mm3 RBC (4.1-5.4) M/mm3 Hgb (12.0-16.0) gm/dl Hct (35-47) % MCV (78-100) fl MCH (26-32) pg MCHC (32-36) g/dl RDW (11.5-14.0) % Plt Count (150-450) K/mm3 MPV (6-9.5) fl Gran % (36.0-66.0) % Eos # (Auto) (0-0.5) Absolute Lymphs (auto) (1.0-4.6) Absolute Monos (auto) (0.0-1.3) Lymphocytes % (24.0-44.0) % Monocytes % (0.0-12.0) % Eosinophils % (0.00-5.0) % Basophils % (0.0-0.4) % Absolute Granulocytes (1.4-6.9) Basophils # (0-0.4) ESR (0-20) mm/hr PT 11.8 (9.95-12.35) SECONDS INR 1.01 (0.8-3.0) Sodium (137-145) mmol/L Potassium (3.5-5.1) mmol/L Chloride (98-107) mmol/L Carbon Dioxide (22-30) mmol/L Anion Gap (5-15) MEQ/L BUN (7-17) mg/dL Creatinine (0.52-1.04) mg/dL Estimated GFR ML/MIN Glucose (74-106) mg/dL Calcium (8.4-10.2) mg/dL Magnesium (1.6-2.3) mg/dL Total Bilirubin (0.2-1.3) mg/dL AST (14-36) U/L ALT (0-35) U/L Alkaline Phosphatase (38-126) U/L Troponin I (0.000-0.034) ng/mL Serum Total Protein (6.3-8.2) g/dL Albumin (3.5-5.0) g/dL Ur Collection Type VOID Urine Color YELLOW (YELLOW) Urine Appearance SLIGHTLY CLOUDY (CLEAR) Urine pH 5.0 (5-6) Ur Specific [place] 1.025 (1.005-1.025) Urine Protein NEGATIVE (Negative) Urine Ketones NEGATIVE (NEGATIVE) Urine Blood NEGATIVE (0-5) [place]/ul Urine Nitrite NEGATIVE (NEGATIVE) Urine Bilirubin NEGATIVE (NEGATIVE) Urine Urobilinogen NORMAL (0-1) mg/dL Ur Leukocyte Esterase 1+ (NEGATIVE) Urine Microscopic WBC 0-2 (0-5) /HPF Urine Culture Reflexed NO (NO) Urine Glucose NEGATIVE (NEGATIVE) mg/dL Urine Opiates Level POSITIVE (NEGATIVE) Ur Methadone NEGATIVE (NEGATIVE) Urine Barbiturates NEGATIVE (NEGATIVE) Ur Phencyclidine (PCP) NEGATIVE (NEGATIVE) Urine Amphetamine NEGATIVE (NEGATIVE) U Benzodiazepine Level POSITIVE (NEGATIVE) Urine Cocaine NEGATIVE (NEGATIVE) Urine Marijuana (THC) NEGATIVE (NEGATIVE) Ethyl Alcohol (0-10) mg/dL Specimen Received 07/05/17 2200 07/05/17 07/05/17 07/05/17 Range/Units 20:05 20:05 20:05 WBC (4.0-10.5) K/mm3 RBC (4.1-5.4) M/mm3 Hgb (12.0-16.0) gm/dl Hct (35-47) % MCV (78-100) fl MCH (26-32) pg MCHC (32-36) g/dl RDW (11.5-14.0) % Plt Count (150-450) K/mm3 MPV (6-9.5) fl Gran % (36.0-66.0) % Eos # (Auto) (0-0.5) Absolute Lymphs (auto) (1.0-4.6) Absolute Monos (auto) (0.0-1.3) Lymphocytes % (24.0-44.0) % Monocytes % (0.0-12.0) % Eosinophils % (0.00-5.0) % Basophils % (0.0-0.4) % Absolute Granulocytes (1.4-6.9) Basophils # (0-0.4) ESR 17 (0-20) mm/hr PT (9.95-12.35) SECONDS INR (0.8-3.0) Sodium 143 (137-145) mmol/L Potassium 4.0 (3.5-5.1) mmol/L Chloride 110 H (98-107) mmol/L Carbon Dioxide 24 (22-30) mmol/L Anion Gap 13.8 (5-15) MEQ/L BUN 14 (7-17) mg/dL Creatinine 0.99 (0.52-1.04) mg/dL Estimated GFR > 60.0 ML/MIN Glucose 96 (74-106) mg/dL Calcium 9.2 (8.4-10.2) mg/dL Magnesium 1.7 (1.6-2.3) mg/dL Total Bilirubin 0.20 (0.2-1.3) mg/dL AST 17 (14-36) U/L ALT 12 (0-35) U/L Alkaline Phosphatase 93 (38-126) U/L Troponin I < 0.012 (0.000-0.034) ng/mL Serum Total Protein 6.9 (6.3-8.2) g/dL Albumin 3.8 (3.5-5.0) g/dL Ur Collection Type Urine Color (YELLOW) Urine Appearance (CLEAR) Urine pH (5-6) Ur Specific [place] (1.005-1.025) Urine Protein (Negative) Urine Ketones (NEGATIVE) Urine Blood (0-5) [place]/ul Urine Nitrite (NEGATIVE) Urine Bilirubin (NEGATIVE) Urine Urobilinogen (0-1) mg/dL Ur Leukocyte Esterase (NEGATIVE) Urine Microscopic WBC (0-5) /HPF Urine Culture Reflexed (NO) Urine Glucose (NEGATIVE) mg/dL Urine Opiates Level (NEGATIVE) Ur Methadone (NEGATIVE) Urine Barbiturates (NEGATIVE) Ur Phencyclidine (PCP) (NEGATIVE) Urine Amphetamine (NEGATIVE) U Benzodiazepine Level (NEGATIVE) Urine Cocaine (NEGATIVE) Urine Marijuana (THC) (NEGATIVE) Ethyl Alcohol < 10 (0-10) mg/dL Specimen Received 07/05/17 Range/Units 20:05 WBC 5.1 (4.0-10.5) K/mm3 RBC 4.14 (4.1-5.4) M/mm3 Hgb 13.0 (12.0-16.0) gm/dl Hct 37.4 (35-47) % MCV 90.3 (78-100) fl MCH 31.4 (26-32) pg MCHC 34.8 (32-36) g/dl RDW 12.8 (11.5-14.0) % Plt Count 177 (150-450) K/mm3 MPV 10.5 H (6-9.5) fl Gran % 61.0 (36.0-66.0) % Eos # (Auto) 0.11 (0-0.5) Absolute Lymphs (auto) 1.43 (1.0-4.6) Absolute Monos (auto) 0.44 (0.0-1.3) Lymphocytes % 27.9 (24.0-44.0) % Monocytes % 8.6 (0.0-12.0) % Eosinophils % 2.1 (0.00-5.0) % Basophils % 0.4 (0.0-0.4) % Absolute Granulocytes 3.13 (1.4-6.9) Basophils # 0.02 (0-0.4) ESR (0-20) mm/hr PT (9.95-12.35) SECONDS INR (0.8-3.0) Sodium (137-145) mmol/L Potassium (3.5-5.1) mmol/L Chloride (98-107) mmol/L Carbon Dioxide (22-30) mmol/L Anion Gap (5-15) MEQ/L BUN (7-17) mg/dL Creatinine (0.52-1.04) mg/dL Estimated GFR ML/MIN Glucose (74-106) mg/dL Calcium (8.4-10.2) mg/dL Magnesium (1.6-2.3) mg/dL Total Bilirubin (0.2-1.3) mg/dL AST (14-36) U/L ALT (0-35) U/L Alkaline Phosphatase (38-126) U/L Troponin I (0.000-0.034) ng/mL Serum Total Protein (6.3-8.2) g/dL Albumin (3.5-5.0) g/dL Ur Collection Type Urine Color (YELLOW) Urine Appearance (CLEAR) Urine pH (5-6) Ur Specific [place] (1.005-1.025) Urine Protein (Negative) Urine Ketones (NEGATIVE) Urine Blood (0-5) [place]/ul Urine Nitrite (NEGATIVE) Urine Bilirubin (NEGATIVE) Urine Urobilinogen (0-1) mg/dL Ur Leukocyte Esterase (NEGATIVE) Urine Microscopic WBC (0-5) /HPF Urine Culture Reflexed (NO) Urine Glucose (NEGATIVE) mg/dL Urine Opiates Level (NEGATIVE) Ur Methadone (NEGATIVE) Urine Barbiturates (NEGATIVE) Ur Phencyclidine (PCP) (NEGATIVE) Urine Amphetamine (NEGATIVE) U Benzodiazepine Level (NEGATIVE) Urine Cocaine (NEGATIVE) Urine Marijuana (THC) (NEGATIVE) Ethyl Alcohol (0-10) mg/dL Specimen Received - Progress Progress: improved Air Movement: good Progress Note: 07/05/17 22:47 Pt states, her headaches and nausea resolved, she is still dizzy, had difficulty walking, but alert and oriented x4, no sign of confusion, focal weakness, visual changes or slurred speech. I called Dr Valdivia, covering DR Benz, discussed this case in details, he agreed to admit her for observation. I informed patient, she agreed. Discussed with .: Shea Will see patient in: hospital (observation) Counseled pt/family regarding: lab results, diagnosis, rad results - Departure Time of Disposition: 22:49 Departure Disposition: Observation Clinical Impression: Dizziness Migraine headache Qualifiers: Migraine type: other Status migrainosus presence: without status migrainosus Intractability: not intractable Qualified Code(s): G43.809 - Other migraine, not intractable, without status migrainosus Condition: Stable Critical Care Time: No Referrals: PAWEL BENZ [Primary Care Provider] - Instructions: Vertigo (a Type of Dizziness) (DC)
[2017-07-05 20:09] LABS: BASOPHIL % 0.4 % (0.0-0.4); Basophil (Absolute #) 0.02 (0-0.4); Eosinophil % 2.1 % (0.00-5.0); Eosinophil (Absolute #) 0.11 (0-0.5); Granulocyte Absolute (ANC) 3.13 (1.4-6.9); Hematocrit 37.4 % (35-47); Lymphocyte (Absolute #) 1.43 (1.0-4.6); Lymphocytes % 27.9 % (24.0-44.0); Mean Cell Volume 90.3 fl (78-100); Mean Corpuscular Hemoglobin 31.4 pg (26-32); Mean Corpuscular Hgb Concent. 34.8 g/dl (32-36); Mean Platelet Volume 10.5 fl (6-9.5); Monocyte (Absolute #) 0.44 (0.0-1.3); Monocytes % 8.6 % (0.0-12.0); Platelet Count 177 K/mm3 (150-450); Red Blood Count 4.14 M/mm3 (4.1-5.4); Red Cell Distribution Width 12.8 % (11.5-14.0); White Blood Count 5.1 K/mm3 (4.0-10.5)
[2017-07-05 20:35] LABS: INR 1.01 (0.8-3.0)
[2017-07-05 20:43] LABS: ALBUMIN 3.8 g/dL (3.5-5.0); ALKALINE PHOSPHATASE 93 U/L (38-126); ANION GAP 13.8 MEQ/L (5-15); BLOOD UREA NITROGEN 14 mg/dL (7-17); CHLORIDE 110 mmol/L (98-107); Calcium 9.2 mg/dL (8.4-10.2); Carbon Dioxide 24 mmol/L (22-30); Creatinine 1 0.99 mg/dL (0.52-1.04); Glucose 96 mg/dL (74-106); SGOT/AST 17 U/L (14-36); SGPT/ALT 12 U/L (0-35); SODIUM 143 mmol/L (137-145); Total Protein 6.9 g/dL (6.3-8.2)
[2017-07-05 20:52] LABS: ETHYL ALCOHOL < 10 mg/dL (0-10)
[2017-07-05] MEDS ORDERED: ANTIVERT 25 MG PO ONE (21:14)
[2017-07-05] MEDS ORDERED: ANTIVERT 25 MG ONE (21:16)
[2017-07-05 22:10] LABS: Amphetamine,Urine NEGATIVE (NEGATIVE); Barbiturate,Urine NEGATIVE (NEGATIVE); Benzodiazepine,Urine POSITIVE (NEGATIVE); Cocaine,Urine NEGATIVE (NEGATIVE); Methadone,Urine NEGATIVE (NEGATIVE); Opiate,Urine POSITIVE (NEGATIVE); PCP,Urine NEGATIVE (NEGATIVE); THC,Urine NEGATIVE (NEGATIVE)
[2017-07-05 22:16] LABS: Appearance SLIGHTLY CLOUDY (CLEAR); Leukocyte Esterase 1+ (NEGATIVE); Specific Gravity 1.025 (1.005-1.025)
[2017-07-05 22:17] LABS: Bilirubin NEGATIVE (NEGATIVE); Blood NEGATIVE Ery/ul (0-5); Glucose NEGATIVE (NEGATIVE); Ketones NEGATIVE (NEGATIVE); Nitrite NEGATIVE (NEGATIVE); Protein,Urine Dip NEGATIVE (Negative); Urobilinogen NORMAL mg/dL (0-1)
[2017-07-05 22:18] LABS: WBC 0-2 /HPF (0-5)
[2017-07-05] MEDS ORDERED: Zofran 4 MG/2 ML VIAL IV PRN (22:49)
[2017-07-05] MEDS ORDERED: Ecotrin 325 MG ONE (22:54)
[2017-07-05] MEDS ORDERED: Sodium Chloride 0.9% 1000 ML 1,000 ML IV SCH (23:00)
[2017-07-06] MEDS ORDERED: Miralax Powder 17GM PACKET PO ONE (00:30)
[2017-07-06 05:56] LABS: BASOPHIL % 0.3 % (0.0-0.4); Basophil (Absolute #) 0.01 (0-0.4); Eosinophil % 3.3 % (0.00-5.0); Granulocyte Absolute (ANC) 1.52 (1.4-6.9); Granulocytes % 49.5 % (36.0-66.0); Hematocrit 32.8 % (35-47); Hemoglobin 11.1 gm/dl (12.0-16.0); Lymphocyte (Absolute #) 1.21 (1.0-4.6); Lymphocytes % 39.4 % (24.0-44.0); Mean Cell Volume 92.1 fl (78-100); Mean Corpuscular Hgb Concent. 33.8 g/dl (32-36); Mean Platelet Volume 10.8 fl (6-9.5); Monocyte (Absolute #) 0.23 (0.0-1.3); Monocytes % 7.5 % (0.0-12.0); Platelet Count 149 K/mm3 (150-450); Red Blood Count 3.56 M/mm3 (4.1-5.4); Red Cell Distribution Width 12.7 % (11.5-14.0); White Blood Count 3.1 K/mm3 (4.0-10.5)
[2017-07-06 06:01] LABS: ANION GAP 11.9 MEQ/L (5-15); BLOOD UREA NITROGEN 12 mg/dL (7-17); CHLORIDE 113 mmol/L (98-107); Calcium 8.2 mg/dL (8.4-10.2); Carbon Dioxide 23 mmol/L (22-30); Creatinine 1 0.94 mg/dL (0.52-1.04); Glucose 88 mg/dL (74-106); Potassium 3.9 mmol/L (3.5-5.1); SODIUM 144 mmol/L (137-145)
[2017-07-06 06:13] LABS: Mean Corpuscular Hemoglobin 31.1 pg (26-32)
[2017-07-06 07:36] VITALS: BP 97/55; PULSE 70; O2SAT 91
[2017-07-06] MEDS ORDERED: ANTIVERT 25 MG PO PRN (07:45)
--- NOTE | 2017-07-06 08:37 | XRAY ---
Indication: Headache. Multiple contiguous axial images obtained through the head without contrast. Comparison: September 16, 2016. Again normal appearing brain parenchyma, ventricles, and bony calvarium. Visualized paranasal sinuses and mastoid air cells are clear. Impression: Stable normal CT head without contrast exam. CT DI 69.11
[2017-07-06] MEDS ORDERED: NON-FORMULARY ITEM (Oxycodone Hcl [Oxycodone Hcl] 10 MG) PO PRN (08:54)
[2017-07-06] MEDS ORDERED: Miralax Powder 17GM PACKET PO PRN (08:54)
[2017-07-06] MEDS ORDERED: PHENERGAN 25 MG PO PRN (08:54)
[2017-07-06] MEDS ORDERED: NON-FORMULARY ITEM (Rizatriptan Benzoate [Maxalt] 10 MG) PO PRN (08:54)
[2017-07-06] MEDS ORDERED: NON-FORMULARY ITEM (Ipratropium/Albuterol Sulfate [Combivent Inhaler] 15 GM) IH SCH (09:00)
--- NOTE | 2017-07-06 09:12 | PCM.DCORD ---
- Discharge Discharge Date: 07/06/17 Prescriptions: New Meclizine HCl 25 mg [Antivert 25 mg] 25 mg PO TID PRN #21 tablet Continue Rizatriptan Benzoate [Maxalt] 10 mg PO BIDPRN PRN PRN Reason: Pain Alprazolam 1 mg [Xanax 1 mg] 2 mg PO BID Linaclotide [Linzess] 290 mcg PO DAILY Polyethylene Glycol 3350 17 gm [Miralax Powder 17GM PACKET] 34 gm PO TID PRN PRN Reason: Constipation Sennosides/Docusate Sodium [Senokot-S Tablet] 2 tab PO BID Promethazine HCl 25 mg [Phenergan 25 mg] 25 mg PO Q4HPRN PRN PRN Reason: Nausea Cetirizine HCl/Pseudoephedrine [Zyrtec-D Tablet] 1 each PO DAILY Omeprazole 40 mg PO DAILY Aspirin 81 mg PO DAILY Oxycodone HCl 10 mg PO Q8H PRN PRN PRN Reason: Pain Ipratropium/Albuterol Sulfate [Combivent Inhaler] 15 gm IH UD #1 aer.w.adap Levothyroxine Sodium 50 Mcg [Synthroid 50 Mcg] 50 mcg PO DAILY Instructions: Vertigo (a Type of Dizziness) (DC) Follow up with: PAWEL JAMIL [Primary Care Provider] - 07/14/17 12:00 pm
[2017-07-06] MEDS ORDERED: Oxycontin 10 MG ER PO SCH (09:15)
[2017-07-06] MEDS ORDERED: XANAX 1 MG PO SCH (10:00)
[2017-07-06] MEDS ORDERED: CETIRIZINE HCL PO SCH (10:00)
[2017-07-06] MEDS ORDERED: CLARITIN-D 24HR TABLET PO SCH (10:00)
[2017-07-06] MEDS ORDERED: Senokot-S Tablet PO SCH (10:00)
[2017-07-06] MEDS ORDERED: NON-FORMULARY ITEM (Aspirin [Aspirin] 81 MG) PO SCH (10:00)
[2017-07-06] MEDS ORDERED: Protonix 40MG Tablet PO SCH (10:00)
[2017-07-06] MEDS ORDERED: SYNTHROID 50 MCG PO SCH (10:00)
[2017-07-06] MEDS ORDERED: NON-FORMULARY ITEM (Omeprazole [Omeprazole] 40 MG) PO SCH (10:00)
[2017-07-06] MEDS ORDERED: NON-FORMULARY ITEM (Linaclotide [Linzess] 290 MCG) PO SCH (10:00)
[2017-07-06] MEDS ORDERED: ECOTRIN 81 MG PO SCH (10:00)
[2017-07-06] MEDS ORDERED: PSEUDOEPHEDRINE PO SCH (10:00)
[2017-07-06] MEDS ORDERED: Ecotrin 325 MG PO ONE (22:44)
--- NOTE | 2017-07-07 15:23 | SSS ---
DISCHARGE DIAGNOSES: 1) VERTIGO. 2) CEPHALGIA. HISTORY: The patient is a 62 year-old white female who presented the emergency room with complaints of headaches. She reported she was quite dizzy, when she turned over in bed the room was spinning. She presented to the emergency room for evaluation and treatment and subsequently admitted to the hospital due to the fact that she had no one at home besides herself and concern for the patient falling with her dizziness problems. The patient was admitted to the hospital and given meclizine which did improve her situation. PAST MEDICAL HISTORY: Significant for anxiety, allergic rhinitis, hypothyroid, chronic constipation, gastroesophageal reflux disease, chronic pain. PHYSICAL EXAMINATION: Revealed a well nourished, well developed 62 year-old white female in no obvious distress. The patient's vital signs were stable. HEENT: Normocephalic, atraumatic. Pupils equal round reactive to light. Extraocular movements intact. Oropharynx is pink and moist. NECK: Supple without lymphadenopathy, thyromegaly or JVD. CHEST: Clear to auscultation with good air movement bilaterally. HEART: Regular rate and rhythm without murmurs, rubs or gallops. ABDOMEN: Soft, nontender, nondistended without hepatosplenomegaly or masses. EXTREMITIES: Without clubbing, cyanosis or edema. NEUROLOGIC: The patient is appeared to be alert and oriented x3. No focal deficits and no nystagmus was noted specifically at the time of my evaluation. HOSPITAL COURSE: She was placed on telemetry. She was in sinus rhythm during her entire stay. Her EKG otherwise did show a left axis deviation and poor R-wave progression across the precordial leads concerning for previous myocardial events. The patient's home medications include Alprazolam 2 mg b.i.d., aspirin 81 mg a day, Zyrtec-D daily, Combivent inhalers, Synthroid 50 mcg daily, Linzess 290 mcg daily, omeprazole 40 mg a day, oxycodone 10 mg every 8 hours PRN pain, Phenergan 25 mg PRN for nausea and Maxalt PRN onset of migraine headaches. After the patient's admission and getting meclizine did improve. By the morning of 07/06/2017 she was able to take a regular diet and was able to ambulate without difficulty and she was therefore discharged home with meclizine to be taken three times a day and follow up with Dr. Benz in the office in the next coming week or to return to the hospital if she has further problems in the interim.
== END 2017-07-06 09:30 | disposition home or self-care (01) ==
LOC: ED 19:34 → MED SURG 23:14
PROVIDERS: ADMIT Family Medicine; ATTEND Family Medicine
DX: R42 Dizziness and giddiness (principal); R51 Headache; F41.9 Anxiety disorder, unspecified; E03.9 Hypothyroidism, unspecified; K21.9 Gastro-esophageal reflux disease without esophagitis; G89.29 Other chronic pain; F45.42 Pain disorder with related psychological factors
CPT/HCPCS: 36000; 36415; 70450; 80048; 80053; 80307; 81000; 83735; 84484; 85025; 85610; 85652; 93005; 93041; 93268; 96360; 96374; 96375; 99285; J1200; J1642; J1885; J2405; A9270-GY; G0378; G0480

== ENCOUNTER 2017-08-04 13:13 | Emergency (ER) | payer MEDICARE ==
[2017-08-04] MEDS ORDERED: Sodium Chloride 0.9% 1000 ML 1,000 ML IV STA (13:18)
--- NOTE | 2017-08-04 13:31 | ERPHSYRPT ---
- History of Present Illness Time Seen by Provider: 08/04/17 13:22 Source: patient Exam Limitations: no limitations Physician History: patient presents with shortness of breath from her primary care physician's office. Patient states that she has been short of breath "for years," but seems to be worse over the past few weeks. Patient has multitude of medical problems/issues. Patient sees a urologist for chronic urinary tract infection and a user experience analyst for pseudo-bowel obstruction and reflux. Patient notes her shortness of breath have been worse with activity and does improve with rest. Patient also states she gets very anxious and hyperventilates, causing facial and hand tingling at times. Patient also complain of vague chest pain centrally, intermittent lasting only a few seconds and localize. Patient does note some generalized weakness and dizziness at times. Patient denies any palpitation, diaphoresis, cough, fever, chills, sore throat, abdominal/back pain or urinary symptoms. Patient does states she has chronic vomiting from her reflux disease. Patient was seen by Dr. Hemphill in her office and O2 sats were noted to be 100%. Patient currently is on antibiotic for urinary tract infection Timing/Duration: other (years but worse over past few weeks) Activities at Onset: activity Severity of Dyspnea-Max: moderate Severity of Dyspnea-Current: mild Possible Cause: frequent episodes Modifying Factors: Improves With: activity (worsens), exertion (worsens), rest ( improves) Associated Symptoms: intermittent, anxiety, cough, chest pain/discomfort, weakness, dizziness, lightheadedness, muscle spasms hands, tingling face, tingling hands, No fever, No insomnia, No loss of appetite, No lightheadedness, No wheezing, No heaviness, No heart racing International travel in last 2 weeks: No Allergies/Adverse Reactions: codeine Allergy (Mild, Verified 07/05/17 19:52) Rash MAKES SICK sumatriptan [From Imitrex] Allergy (Verified 07/05/17 19:52) sumatriptan succinate [From Imitrex] Allergy (Verified 07/05/17 19:52) morphine Adverse Reaction (Severe, Verified 07/05/17 19:52) Headache MIGRAINES hydrocodone bitartrate [From Vicodin] Adverse Reaction (Mild, Verified 07/05/17 19:52) Vomiting fentanyl Adverse Reaction (Verified 07/05/17 19:52) Home Medications: Alprazolam 1 mg [Xanax 1 mg] 2 mg PO BID 02/17/13 [History] Rizatriptan Benzoate [Maxalt] 10 mg PO BIDPRN PRN 02/17/13 [History] Linaclotide [Linzess] 290 mcg PO DAILY 07/13/14 [History] Polyethylene Glycol 3350 17 gm [Miralax Powder 17GM PACKET] 34 gm PO TID PRN 11/15/14 [History] Sennosides/Docusate Sodium [Senokot-S Tablet] 2 tab PO BID 04/25/15 [History] Promethazine HCl 25 mg [Phenergan 25 mg] 25 mg PO Q4HPRN PRN 05/11/15 [ History] Cetirizine HCl/Pseudoephedrine [Zyrtec-D Tablet] 1 each PO DAILY 02/03/16 [ History] Aspirin 81 mg PO DAILY 09/11/16 [History] Omeprazole 40 mg PO DAILY 09/11/16 [History] Oxycodone HCl 10 mg PO Q8H PRN PRN 12/16/16 [History] Levothyroxine Sodium 50 Mcg [Synthroid 50 Mcg] 50 mcg PO DAILY 07/06/17 [ History] Hx Tetanus, Diphtheria Vaccination/Date Given: Yes Hx Influenza Vaccination/Date Given: Yes Hx Pneumococcal Vaccination/Date Given: No - Review of Systems Constitutional: Weakness, No Fever, No Chills Eyes: No Symptoms Ears, Nose, & Throat: No Symptoms Respiratory: Cough, Dyspnea, No Stridor, No Wheezing Cardiac: Chest Pain, No Edema, No Palpitations, No Syncope, No Orthopnea Abdominal/Gastrointestinal: No Symptoms, No Abdominal Pain, No Nausea, No Vomiting, No Diarrhea Genitourinary Symptoms: Frequency, Hesitancy, Urgency, No Dysuria Musculoskeletal: No Symptoms, No Back Pain, No Neck Pain Skin: No Symptoms, No Rash Neurological: Dizziness, No Focal Weakness, No Headache, No Irritability, No Paralysis, No Seizure, No Sensory Changes Psychological: Anxiety, Emotional Lability Endocrine: No Symptoms Hematologic/Lymphatic: No Symptoms Immunological/Allergic: No Symptoms All Other Systems: Reviewed and Negative - Past Medical History Pertinent Past Medical History: Yes Neurological History: Migraines ENT History: Cataracts, Other Cardiac History: No Pertinent History Respiratory History: Other Endocrine Medical History: Hypothyroidism, Other Musculoskeletal History: Arthritis, Degenerative Disk Disease, Osteoarthritis, Other GI Medical History: GERD, Irritable Bowel, Ulcer, Other History: Other Psycho-Social History: Anxiety Female Reproductive Disorders: Other Other Medical History: Recurrent UTI,urine kidney/bladder problems recurrent. 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 Total colectomy. FEEDING TUBE FOR 4 YEARS, stretches of bladder and urethra, bowel obstructions x2, lithotripsy. - Social History Smoking Status: Never smoker Exposure to second hand smoke: No Alcohol Use: None Drug Use: none Patient Lives Alone: Yes Significant Family History: no pertinent family hx - Nursing Vital Signs Nursing Vital Signs: Initial Vital Signs O2 Sat by Pulse Oximetry 100 08/04/17 14:01 Pain Scale Pain Intensity 5 - Physical Exam General Appearance: no apparent distress, alert, anxiety Eye Exam: PERRL/EOMI Ears, Nose, Throat Exam: hearing grossly normal, normal ENT inspection, normal pharynx Neck Exam: normal inspection, supple Respiratory Exam: normal breath sounds, other (hyperventilating) Cardiovascular/Chest Exam: normal heart sounds, regular rate/rhythm Abdominal/Gastrointestinal Exam: soft, No tenderness, No distention, No mass Rectal Exam: deferred Extremity Exam: non-tender, normal range of motion, normal inspection, no calf tenderness, no pedal edema Neurologic Exam: alert, 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, cooperative, manufacturing technician II-XII nml as tested, sensation nml, No motor deficits Skin Exam: normal color, warm, No dry Lymphatic Exam: adenopathy SpO2 Interpretation: normal (100% on room air) SpO2: 100 Oxygen Delivery: Room Air - Course Nursing assessment & vital signs reviewed: Yes EKG Interpreted by Me: RATE (84), Sinus Rhythm, NORMAL AXIS, NORMAL INTERVALS, NORMAL QRS, NORMAL ST-T - Radiology Exams Chest X-ray Interpretation: Teleradiologist Report, Negative, No Pneumonia - CT Exams Chest CT Interpretation: Negative, No PE, Other (chronic fibrosis/scarrin) Ordered Tests: Active Orders 24 hr Category Date Time Status Disability Program Navigator STAT Care 08/04/17 13:20 Active Clean Catch Urine Specimen STAT Care 08/04/17 13:18 Active EKG-ER Only STAT Care 08/04/17 13:18 Active IV Insertion STAT Care 08/04/17 13:18 Active CHEST 2 VIEWS (PA AND LAT) Stat Exams 08/04/17 13:20 Completed CHEST WITH CONTRAST [CT] Stat Exams 08/04/17 14:38 Completed CBC W DIFF Stat Lab 08/04/17 13:40 Completed CMP Stat Lab 08/04/17 13:40 Completed CULTURE,URINE Stat Lab 08/04/17 14:32 Received D-DIMER QUANTITATION Stat Lab 08/04/17 13:40 Completed NT PRO BNP Stat Lab 08/04/17 13:40 Completed TROPONIN Stat Lab 08/04/17 13:40 Completed UA W/ MICROSCOPIC Stat Lab 08/04/17 14:32 Completed Medication Summary Discontinued Medications Generic Name Dose Route Start Last Admin Trade Name Freq PRN Reason Stop Dose Admin Sodium Chloride 1,000 mls @ 999 mls/hr 08/04/17 13:18 08/04/17 13:41 Sodium Chloride 0.9% 1000 Ml IV 08/04/17 14:18 999 mls/hr .Q1H1M STA Administration Sodium Chloride Confirm 08/04/17 13:40 Sodium Chloride 0.9% 1000 Ml Administered 08/04/17 13:41 Dose 1,000 mls @ ud .ROUTE .STK-MED ONE Sodium Chloride 500 mls @ 500 mls/hr 08/04/17 14:39 08/04/17 15:49 Sodium Chloride 0.9% 1000 Ml IV 08/04/17 15:38 500 mls/hr .Q1H STA Administration Sodium Chloride Confirm 08/04/17 15:10 Sodium Chloride 0.9% 1000 Ml Administered 08/04/17 15:11 Dose 1,000 mls @ ud .ROUTE .STK-MED ONE Lab/Rad Data: Laboratory Result Diagrams 08/04/17 13:40 08/04/17 13:40 Laboratory Results 08/04/17 08/04/17 08/04/17 Range/Units 14:32 13:40 13:40 WBC (4.0-10.5) K/mm3 RBC (4.1-5.4) M/mm3 Hgb (12.0-16.0) gm/dl Hct (35-47) % MCV (78-100) fl MCH (26-32) pg MCHC (32-36) g/dl RDW (11.5-14.0) % Plt Count (150-450) K/mm3 MPV (6-9.5) fl Gran % (36.0-66.0) % Eos # (Auto) (0-0.5) Absolute Lymphs (auto) (1.0-4.6) Absolute Monos (auto) (0.0-1.3) Lymphocytes % (24.0-44.0) % Monocytes % (0.0-12.0) % Eosinophils % (0.00-5.0) % Basophils % (0.0-0.4) % Absolute Granulocytes (1.4-6.9) Basophils # (0-0.4) D-Dimer 1241 H* (215-500) ng/mL Sodium 141 (137-145) mmol/L Potassium 4.0 (3.5-5.1) mmol/L Chloride 112 H (98-107) mmol/L Carbon Dioxide 19 L (22-30) mmol/L Anion Gap 14.4 (5-15) MEQ/L BUN 23 H (7-17) mg/dL Creatinine 0.94 (0.52-1.04) mg/dL Estimated GFR > 60.0 ML/MIN Glucose 98 (74-106) mg/dL Calcium 9.3 (8.4-10.2) mg/dL Total Bilirubin 1.00 (0.2-1.3) mg/dL AST 27 (14-36) U/L ALT 19 (0-35) U/L Alkaline Phosphatase 89 (38-126) U/L Troponin I < 0.012 (0.000-0.034) ng/mL NT-Pro-B Natriuret Pep 136 (0-900) pg/mL Serum Total Protein 7.0 (6.3-8.2) g/dL Albumin 4.0 (3.5-5.0) g/dL Ur Collection Type VOID Urine Color DARK YELLOW (YELLOW) Urine Appearance CLOUDY (CLEAR) Urine pH 5.0 (5-6) Ur Specific [place] 1.020 (1.005-1.025) Urine Protein TRACE (Negative) Urine Ketones MODERATE (NEGATIVE) Urine Blood 5-10 (0-5) [place]/ul Urine Nitrite POSITIVE (NEGATIVE) Urine Bilirubin MODERATE (NEGATIVE) Urine Urobilinogen 4 (0-1) mg/dL Ur Leukocyte Esterase 2+ (NEGATIVE) Urine Microscopic RBC 0-2 (0-2) /HPF Urine Microscopic WBC 15-25 (0-5) /HPF Ur Epithelial Cells MANY (FEW) /HPF Urine Bacteria MANY (NEGATIVE) /HPF Urine Culture Reflexed YES (NO) Urine Glucose NEGATIVE (NEGATIVE) mg/dL Specimen Received 08/04/17 1423 08/04/17 Range/Units 13:40 WBC 4.4 (4.0-10.5) K/mm3 RBC 3.98 L (4.1-5.4) M/mm3 Hgb 12.6 (12.0-16.0) gm/dl Hct 36.7 (35-47) % MCV 92.2 (78-100) fl MCH 31.6 (26-32) pg MCHC 34.3 (32-36) g/dl RDW 13.0 (11.5-14.0) % Plt Count 173 (150-450) K/mm3 MPV 10.8 H (6-9.5) fl Gran % 66.2 H (36.0-66.0) % Eos # (Auto) 0.08 (0-0.5) Absolute Lymphs (auto) 0.99 L (1.0-4.6) Absolute Monos (auto) 0.39 (0.0-1.3) Lymphocytes % 22.6 L (24.0-44.0) % Monocytes % 8.9 (0.0-12.0) % Eosinophils % 1.8 (0.00-5.0) % Basophils % 0.5 (0.0-0.4) % Absolute Granulocytes 2.91 (1.4-6.9) Basophils # 0.02 (0-0.4) D-Dimer (215-500) ng/mL Sodium (137-145) mmol/L Potassium (3.5-5.1) mmol/L Chloride (98-107) mmol/L Carbon Dioxide (22-30) mmol/L Anion Gap (5-15) MEQ/L BUN (7-17) mg/dL Creatinine (0.52-1.04) mg/dL Estimated GFR ML/MIN Glucose (74-106) mg/dL Calcium (8.4-10.2) mg/dL Total Bilirubin (0.2-1.3) mg/dL AST (14-36) U/L ALT (0-35) U/L Alkaline Phosphatase (38-126) U/L Troponin I (0.000-0.034) ng/mL NT-Pro-B Natriuret Pep (0-900) pg/mL Serum Total Protein (6.3-8.2) g/dL Albumin (3.5-5.0) g/dL Ur Collection Type Urine Color (YELLOW) Urine Appearance (CLEAR) Urine pH (5-6) Ur Specific [place] (1.005-1.025) Urine Protein (Negative) Urine Ketones (NEGATIVE) Urine Blood (0-5) A[place]o/ul Urine Nitrite (NEGATIVE) Urine Bilirubin (NEGATIVE) Urine Urobilinogen (0-1) mg/dL Ur Leukocyte Esterase (NEGATIVE) Urine Microscopic RBC (0-2) /HPF Urine Microscopic WBC (0-5) /HPF Ur Epithelial Cells (FEW) /HPF Urine Bacteria (NEGATIVE) /HPF Urine Culture Reflexed (NO) Urine Glucose (NEGATIVE) mg/dL Specimen Received - Progress Progress: improved Air Movement: good Progress Note: patient remains hemodynamically stable with O2 sats greater than 97%. Chest CT was negative for PE 08/04/17 16:17 Blood Culture(s) Obtained: No Antibiotics given: No Counseled pt/family regarding: lab results, diagnosis, rad results - Departure Time of Disposition: 16:18 Departure Disposition: Home Clinical Impression: Acute anxiety, Dyspnea, UTI (urinary tract infection) Condition: Stable Critical Care Time: No Referrals: PAWEL JAMIL [Primary Care Provider] - Instructions: Shortness of Breath (Dyspnea) (DC), Generalized Anxiety Disorder Additional Instructions: Follow-up with your doctor in 1-2 days. Take antibiotic as prescribed Return for worse shortness of breath, chest pain, dizziness, weakness or any problems
[2017-08-04] MEDS ORDERED: Sodium Chloride 0.9% 1000 ML 1,000 ML ONE ×2 (13:40→15:10)
[2017-08-04 13:46] LABS: BASOPHIL % 0.5 % (0.0-0.4); Basophil (Absolute #) 0.02 (0-0.4); Eosinophil % 1.8 % (0.00-5.0); Eosinophil (Absolute #) 0.08 (0-0.5); Granulocyte Absolute (ANC) 2.91 (1.4-6.9); Granulocytes % 66.2 % (36.0-66.0); Hematocrit 36.7 % (35-47); Hemoglobin 12.6 gm/dl (12.0-16.0); Lymphocyte (Absolute #) 0.99 (1.0-4.6); Lymphocytes % 22.6 % (24.0-44.0); Mean Cell Volume 92.2 fl (78-100); Mean Corpuscular Hgb Concent. 34.3 g/dl (32-36); Mean Platelet Volume 10.8 fl (6-9.5); Monocyte (Absolute #) 0.39 (0.0-1.3); Monocytes % 8.9 % (0.0-12.0); Platelet Count 173 K/mm3 (150-450); Red Blood Count 3.98 M/mm3 (4.1-5.4); White Blood Count 4.4 K/mm3 (4.0-10.5)
[2017-08-04 13:48] LABS: Mean Corpuscular Hemoglobin 31.6 pg (26-32)
--- NOTE | 2017-08-04 14:18 | XRAY ---
Indication: Short of breath. Comparison: February 27, 2017. PA/lateral chest unchanged again hyperinflated with right midlung fibrosis/scarring, a few pulmonary calcified granulomas, mediastinal/hilar calcified nodes, and right Port-A-Cath. Remaining heart, lungs, and bony thorax unremarkable. No new/acute findings.
[2017-08-04 14:20] LABS: ALKALINE PHOSPHATASE 89 U/L (38-126); ANION GAP 14.4 MEQ/L (5-15); BLOOD UREA NITROGEN 23 mg/dL (7-17); CHLORIDE 112 mmol/L (98-107); Calcium 9.3 mg/dL (8.4-10.2); Carbon Dioxide 19 mmol/L (22-30); Creatinine 1 0.94 mg/dL (0.52-1.04); Glucose 98 mg/dL (74-106); SGOT/AST 27 U/L (14-36); SGPT/ALT 19 U/L (0-35); SODIUM 141 mmol/L (137-145)
[2017-08-04 14:32] LABS: NT PRO BNP 136 pg/mL (0-900)
[2017-08-04 14:33] LABS: TROPONIN < 0.012 ng/mL (0.000-0.034)
[2017-08-04 14:42] LABS: Appearance CLOUDY (CLEAR); Glucose NEGATIVE (NEGATIVE); Ketones MODERATE (NEGATIVE); Leukocyte Esterase 2+ (NEGATIVE); Nitrite POSITIVE (NEGATIVE); Protein,Urine Dip TRACE (Negative)
[2017-08-04 14:43] LABS: Bacteria MANY /HPF (NEGATIVE); Bilirubin MODERATE (NEGATIVE); Epithelial Cells MANY /HPF (FEW); RBC 0-2 /HPF (0-2); Urobilinogen 4 mg/dL (0-1); WBC 15-25 /HPF (0-5)
--- NOTE | 2017-08-04 15:31 | XRAY ---
Indication: Short of breath. Chronic cough. Multiple contiguous axial images obtained through the chest using 80 cc Isovue 370 contrast and PE protocol. Comparison: None There is satisfactory opacification of the pulmonary arteries including lobar and segmental branches. No filling defect or pulmonary embolus. Heart is not enlarged. Aorta is normal in course and caliber. Right paratracheal, subcarinal, and bihilar calcified nodes. No pathologic mediastinal/hilar lymphadenopathy. Right-sided Port-A-Cath. Examination of the lung parenchyma demonstrates minimal bilateral dependent atelectasis and scattered fibrosis/scarring greatest in the right upper lobe. Sub-5 mm noncalcified nodule in the right apex and inferior lingula probably granulomatous. No infiltrate or effusion. Bony thorax intact. Limited upper abdomen is unremarkable. Impression: 1. Negative pulmonary embolus. No acute cardiopulmonary abnormalities. 2. Scattered fibrosis/scarring and evidence for old granulomatous disease. CT DI 14.42
[2017-08-04 17:06] VITALS: BP 102/75; PULSE 80; O2SAT 98
== END 2017-08-04 17:06 | disposition home or self-care (01) ==
LOC: ED 13:13
DX: F41.9 Anxiety disorder, unspecified (principal); R06.00 Dyspnea, unspecified; R07.9 Chest pain, unspecified; N39.0 Urinary tract infection, site not specified; R53.1 Weakness; R42 Dizziness and giddiness; Z79.82 Long term (current) use of aspirin; Z79.899 Other long term (current) drug therapy
CPT/HCPCS: 36000; 36415; 71046; 71260; 80053; 81000; 83880; 84484; 85025; 85379; 87077; 87086; 87186; 93005; 93041; 96360; 96361; 99284; J1642

== ENCOUNTER 2017-09-02 08:43 | Emergency (ER) | payer MEDICARE ==
[2017-09-02] MEDS ORDERED: PROTONIX 40 MG IV IV ONE ×2 (09:23→09:50)
[2017-09-02] MEDS ORDERED: Sodium Chloride 0.9% 1000 ML 1,000 ML IV SCH ×2 (09:30→12:30)
--- NOTE | 2017-09-02 09:38 | ERPHSYRPT ---
- History of Present Illness Time Seen by Provider: 09/02/17 09:17 Historian: patient Exam Limitations: no limitations Patient Subjective Stated Complaint: has bladder treatment yesterday in [facility] had rectal bleeding today. brought in tissue with red noted. states has hx hemorrhoids. Triage Nursing Assessment: alert and bent over with ambulation. juanpablo has had a bladder treament yesterday for chronic UTI. meenakshi has a colon disease. abdomen soft but painful on palpation. staes pain to palpation to left flank. able to urinate on arrival. Physician History: Pt was in [place] received her regular bladder injections for chronic infection. She started passing blood rectally last night, and developed diffuse abdominal cramps. She denies fever, vomiting, other complaints. Her last colonoscopy was last year. Timing/Duration: yesterday Activities at Onset: none Quality: cramping Abdominal Pain Onset Location: generalized abdomen Pain Radiation: no radiation Severity of Pain-Max: moderate Severity of Pain-Current: mild Modifying Factors: Improves With: nothing Associated Symptoms: nausea Previous symptoms: same symptoms as today Allergies/Adverse Reactions: codeine Allergy (Mild, Verified 09/02/17 09:18) Rash MAKES SICK sumatriptan [From Imitrex] Allergy (Verified 09/02/17 09:18) sumatriptan succinate [From Imitrex] Allergy (Verified 09/02/17 09:18) morphine Adverse Reaction (Severe, Verified 09/02/17 09:18) Headache MIGRAINES hydrocodone bitartrate [From Vicodin] Adverse Reaction (Mild, Verified 09/02/17 09:18) Vomiting fentanyl Adverse Reaction (Verified 09/02/17 09:18) Home Medications: Alprazolam 1 mg [Xanax 1 mg] 2 mg PO BID 02/17/13 [History] Rizatriptan Benzoate [Maxalt] 10 mg PO BIDPRN PRN 02/17/13 [History] Linaclotide [Linzess] 290 mcg PO DAILY 07/13/14 [History] Polyethylene Glycol 3350 17 gm [Miralax Powder 17GM PACKET] 34 gm PO TID PRN 11/15/14 [History] Sennosides/Docusate Sodium [Senokot-S Tablet] 2 tab PO BID 04/25/15 [History] Promethazine HCl 25 mg [Phenergan 25 mg] 25 mg PO Q4HPRN PRN 05/11/15 [ History] Cetirizine HCl/Pseudoephedrine [Zyrtec-D Tablet] 1 each PO DAILY 02/03/16 [ History] Aspirin 81 mg PO DAILY 09/11/16 [History] Omeprazole 40 mg PO DAILY 09/11/16 [History] Oxycodone HCl 10 mg PO Q8H PRN PRN 12/16/16 [History] Levothyroxine Sodium 50 Mcg [Synthroid 50 Mcg] 50 mcg PO DAILY 07/06/17 [ History] Hx Tetanus, Diphtheria Vaccination/Date Given: Yes Hx Influenza Vaccination/Date Given: Yes Hx Pneumococcal Vaccination/Date Given: No - Review of Systems Constitutional: No Symptoms Abdominal/Gastrointestinal: Abdominal Pain, Nausea, Hematochezia All Other Systems: Reviewed and Negative - Past Medical History Pertinent Past Medical History: Yes Neurological History: Migraines ENT History: Cataracts, Other Cardiac History: No Pertinent History Respiratory History: Other Endocrine Medical History: Hypothyroidism, Other Musculoskeletal History: Arthritis, Degenerative Disk Disease, Osteoarthritis, Other GI Medical History: GERD, Irritable Bowel, Ulcer, Other History: Other Psycho-Social History: Anxiety Female Reproductive Disorders: Other Other Medical History: Recurrent UTI,urine kidney/bladder problems recurrent. 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 Total colectomy. FEEDING TUBE FOR 4 YEARS, stretches of bladder and urethra, bowel obstructions x2, lithotripsy. - Social History Smoking Status: Never smoker Exposure to second hand smoke: No Alcohol Use: None Drug Use: none Patient Lives Alone: No Significant Family History: no pertinent family hx - Female History Hx Now: No - Nursing Vital Signs Nursing Vital Signs: Initial Vital Signs Temperature 98.2 F 09/02/17 08:49 Pulse Rate 79 09/02/17 08:49 Respiratory Rate 16 09/02/17 08:49 Blood Pressure 106/59 09/02/17 08:49 O2 Sat by Pulse Oximetry 95 09/02/17 08:49 Pain Scale Pain Intensity 5 - Physical Exam General Appearance: no apparent distress Eye Exam: eyes nml inspection Ears, Nose, Throat Exam: normal ENT inspection, moist mucous membranes Neck Exam: normal inspection, non-tender, supple, No JVD Respiratory Exam: normal breath sounds, lungs clear, airway intact Cardiovascular Exam: regular rate/rhythm, normal heart sounds, normal peripheral pulses, No murmur Gastrointestinal/Abdomen Exam: soft, normal bowel sounds, tenderness (mild, diffuse), No distention, No mass, No guarding, No rebound, No organomegaly Rectal Exam: normal rectal tone, other (greenish liquid stool, hemocult sent.), No mass, No black stool, No blood, No tenderness Back Exam: normal inspection, No CVA tenderness Extremity Exam: normal inspection Neurologic Exam: alert, 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, normal mood/affect Skin Exam: normal color, warm, dry, No rash Lymphatic Exam: No adenopathy SpO2 Interpretation: normal SpO2: 95 Oxygen Delivery: Room Air - Course Nursing assessment & vital signs reviewed: Yes - CT Exams Abdomen/Pelvis CT Interpretation: Negative, Tele-radiologist Report Ordered Tests: Active Orders 24 hr Category Date Time Status IV Insertion STAT Care 09/02/17 09:23 Active Orthostatic Vital Signs STAT Care 09/02/17 11:25 Active ABDOMEN AND PELVIS W/0 CONTRAS [CT] Stat Exams 09/02/17 09:29 Completed CBC W DIFF Stat Lab 09/02/17 10:19 Completed CMP Stat Lab 09/02/17 09:55 Completed CULTURE,URINE Stat Lab 09/02/17 08:55 Received Occult Blood,Stool Other Stat Lab 09/02/17 Completed Occult Blood,Stool Other Stat Lab 09/02/17 10:00 Completed PROTIME WITH INR Stat Lab 09/02/17 09:55 Completed PTT Stat Lab 09/02/17 09:55 Completed UA W/ MICROSCOPIC Stat Lab 09/02/17 08:55 Completed Medication Summary Generic Name Dose Route Start Last Admin Trade Name Freq PRN Reason Stop Dose Admin Sodium Chloride 1,000 mls @ 100 mls/hr 09/02/17 09:30 09/02/17 10:18 Sodium Chloride 0.9% 1000 Ml IV 10/02/17 09:29 100 mls/hr .Q10H JENNIFER Administration Sodium Chloride 500 mls @ 500 mls/hr 09/02/17 11:49 09/02/17 12:07 Sodium Chloride 0.9% 500 Ml IV 09/02/17 12:48 500 mls/hr .Q1H ONE Administration Discontinued Medications Generic Name Dose Route Start Last Admin Trade Name Freq PRN Reason Stop Dose Admin Pantoprazole Sodium 40 mg 09/02/17 09:23 09/02/17 10:17 Protonix 40 Mg Iv IV 09/02/17 09:24 40 mg STAT ONE Administration Pantoprazole Sodium Confirm 09/02/17 09:50 Protonix 40 Mg Iv Administered 09/02/17 09:51 Dose 40 mg IV .STK-MED ONE Lab/Rad Data: Laboratory Result Diagrams 09/02/17 10:19 09/02/17 09:55 Laboratory Results 09/02/17 09/02/17 09/02/17 Range/Units Unknown 10:19 10:00 WBC 3.8 L (4.0-10.5) K/mm3 RBC 4.03 L (4.1-5.4) M/mm3 Hgb 12.7 (12.0-16.0) gm/dl Hct 37.1 (35-47) % MCV 92.1 (78-100) fl MCH 31.5 (26-32) pg MCHC 34.2 (32-36) g/dl RDW 13.4 (11.5-14.0) % Plt Count 158 (150-450) K/mm3 MPV 10.7 H (6-9.5) fl Gran % 72.3 H (36.0-66.0) % Eos # (Auto) 0.06 (0-0.5) Absolute Lymphs (auto) 0.73 L (1.0-4.6) Absolute Monos (auto) 0.25 (0.0-1.3) Lymphocytes % 19.1 L (24.0-44.0) % Monocytes % 6.5 (0.0-12.0) % Eosinophils % 1.6 (0.00-5.0) % Basophils % 0.5 (0.0-0.4) % Absolute Granulocytes 2.76 (1.4-6.9) Basophils # 0.02 (0-0.4) PT (9.95-12.35) SECONDS INR (0.8-3.0) APTT (25.3-37.0) SECONDS Sodium (137-145) mmol/L Potassium (3.5-5.1) mmol/L Chloride (98-107) mmol/L Carbon Dioxide (22-30) mmol/L Anion Gap (5-15) MEQ/L BUN (7-17) mg/dL Creatinine (0.52-1.04) mg/dL Estimated GFR ML/MIN Glucose (74-106) mg/dL Calcium (8.4-10.2) mg/dL Total Bilirubin (0.2-1.3) mg/dL AST (14-36) U/L ALT (0-35) U/L Alkaline Phosphatase (38-126) U/L Serum Total Protein (6.3-8.2) g/dL Albumin (3.5-5.0) g/dL Ur Collection Type Urine Color (YELLOW) Urine Appearance (CLEAR) Urine pH (5-6) Ur Specific [place] (1.005-1.025) Urine Protein (Negative) Urine Ketones (NEGATIVE) Urine Blood (0-5) Aroldo/ul Urine Nitrite (NEGATIVE) Urine Bilirubin (NEGATIVE) Urine Urobilinogen (0-1) mg/dL Ur Leukocyte Esterase (NEGATIVE) Urine Microscopic RBC (0-2) /HPF Urine Microscopic WBC (0-5) /HPF Ur Epithelial Cells (FEW) /HPF Uric Acid Crystals (NEGATIVE) /HPF Urine Bacteria (NEGATIVE) /HPF Urine Culture Reflexed (NO) Urine Glucose (NEGATIVE) mg/dL Stool Occult Blood POSITIVE POSITIVE (Negative) Specimen Received ABO Group Rh Factor Antibody Screen (NEGATIVE) 09/02/17 09/02/17 09/02/17 Range/Units 09:55 09:55 09:55 WBC (4.0-10.5) K/mm3 RBC (4.1-5.4) M/mm3 Hgb (12.0-16.0) gm/dl Hct (35-47) % MCV (78-100) fl MCH (26-32) pg MCHC (32-36) g/dl RDW (11.5-14.0) % Plt Count (150-450) K/mm3 MPV (6-9.5) fl Gran % (36.0-66.0) % Eos # (Auto) (0-0.5) Absolute Lymphs (auto) (1.0-4.6) Absolute Monos (auto) (0.0-1.3) Lymphocytes % (24.0-44.0) % Monocytes % (0.0-12.0) % Eosinophils % (0.00-5.0) % Basophils % (0.0-0.4) % Absolute Granulocytes (1.4-6.9) Basophils # (0-0.4) PT 10.6 (9.95-12.35) SECONDS INR 0.91 (0.8-3.0) APTT 28.8 (25.3-37.0) SECONDS Sodium 141 (137-145) mmol/L Potassium 3.9 (3.5-5.1) mmol/L Chloride 110 H (98-107) mmol/L Carbon Dioxide 21 L (22-30) mmol/L Anion Gap 13.5 (5-15) MEQ/L BUN 19 H (7-17) mg/dL Creatinine 1.28 H (0.52-1.04) mg/dL Estimated GFR 44.9 ML/MIN Glucose 91 (74-106) mg/dL Calcium 8.9 (8.4-10.2) mg/dL Total Bilirubin 0.50 (0.2-1.3) mg/dL AST 20 (14-36) U/L ALT 16 (0-35) U/L Alkaline Phosphatase 119 (38-126) U/L Serum Total Protein 7.3 (6.3-8.2) g/dL Albumin 4.2 (3.5-5.0) g/dL Ur Collection Type Urine Color (YELLOW) Urine Appearance (CLEAR) Urine pH (5-6) Ur Specific [place] (1.005-1.025) Urine Protein (Negative) Urine Ketones (NEGATIVE) Urine Blood (0-5) Aroldo/ul Urine Nitrite (NEGATIVE) Urine Bilirubin (NEGATIVE) Urine Urobilinogen (0-1) mg/dL Ur Leukocyte Esterase (NEGATIVE) Urine Microscopic RBC (0-2) /HPF Urine Microscopic WBC (0-5) /HPF Ur Epithelial Cells (FEW) /HPF Uric Acid Crystals (NEGATIVE) /HPF Urine Bacteria (NEGATIVE) /HPF Urine Culture Reflexed (NO) Urine Glucose (NEGATIVE) mg/dL Stool Occult Blood (Negative) Specimen Received ABO Group O Rh Factor POSITIVE Antibody Screen NEGATIVE (NEGATIVE) 09/02/17 Range/Units 08:55 WBC (4.0-10.5) K/mm3 RBC (4.1-5.4) M/mm3 Hgb (12.0-16.0) gm/dl Hct (35-47) % MCV (78-100) fl MCH (26-32) pg MCHC (32-36) g/dl RDW (11.5-14.0) % Plt Count (150-450) K/mm3 MPV (6-9.5) fl Gran % (36.0-66.0) % Eos # (Auto) (0-0.5) Absolute Lymphs (auto) (1.0-4.6) Absolute Monos (auto) (0.0-1.3) Lymphocytes % (24.0-44.0) % Monocytes % (0.0-12.0) % Eosinophils % (0.00-5.0) % Basophils % (0.0-0.4) % Absolute Granulocytes (1.4-6.9) Basophils # (0-0.4) PT (9.95-12.35) SECONDS INR (0.8-3.0) APTT (25.3-37.0) SECONDS Sodium (137-145) mmol/L Potassium (3.5-5.1) mmol/L Chloride (98-107) mmol/L Carbon Dioxide (22-30) mmol/L Anion Gap (5-15) MEQ/L BUN (7-17) mg/dL Creatinine (0.52-1.04) mg/dL Estimated GFR ML/MIN Glucose (74-106) mg/dL Calcium (8.4-10.2) mg/dL Total Bilirubin (0.2-1.3) mg/dL AST (14-36) U/L ALT (0-35) U/L Alkaline Phosphatase (38-126) U/L Serum Total Protein (6.3-8.2) g/dL Albumin (3.5-5.0) g/dL Ur Collection Type VOID Urine Color YELLOW (YELLOW) Urine Appearance CLOUDY (CLEAR) Urine pH 6.0 (5-6) Ur Specific [place] 1.030 (1.005-1.025) Urine Protein TRACE (Negative) Urine Ketones NEGATIVE (NEGATIVE) Urine Blood 50 (0-5) Aroldo/ul Urine Nitrite NEGATIVE (NEGATIVE) Urine Bilirubin NEGATIVE (NEGATIVE) Urine Urobilinogen NORMAL (0-1) mg/dL Ur Leukocyte Esterase TRACE (NEGATIVE) Urine Microscopic RBC 0-2 (0-2) /HPF Urine Microscopic WBC 0-2 (0-5) /HPF Ur Epithelial Cells FEW (FEW) /HPF Uric Acid Crystals >100 (NEGATIVE) /HPF Urine Bacteria FEW (NEGATIVE) /HPF Urine Culture Reflexed YES (NO) Urine Glucose NEGATIVE (NEGATIVE) mg/dL Stool Occult Blood (Negative) Specimen Received 09/02/17 0895 ABO Group Rh Factor Antibody Screen (NEGATIVE) - Progress Progress: improved Progress Note: 09/02/17 12:21 Pt has been stable, she states, she passed small amount of blood here since she arrived x5, not orthostatic, not febrile, I called Dr Benz, discussed her results and current condition, she agreed to admit her for observation, patient was informed, she agreed. Discussed with : Tuyet Will see patient in: hospital (observation) Counseled pt/family regarding: lab results, diagnosis, need for follow-up, rad results - Departure Time of Disposition: 12:23 Departure Disposition: Observation Clinical Impression: Rectal bleeding Condition: Stable Critical Care Time: No Referrals: PAWEL BENZ [Primary Care Provider] - Instructions: Gastrointestinal Bleeding (DC)
[2017-09-02] MEDS ORDERED: Sodium Chloride 0.9% 1000 ML 1,000 ML ONE (09:49)
[2017-09-02 09:58] LABS: Appearance CLOUDY (CLEAR); Bacteria FEW /HPF (NEGATIVE); Bilirubin NEGATIVE (NEGATIVE); Blood 50 Ery/ul (0-5); Epithelial Cells FEW /HPF (FEW); Glucose NEGATIVE (NEGATIVE); Ketones NEGATIVE (NEGATIVE); Leukocyte Esterase TRACE (NEGATIVE); Nitrite NEGATIVE (NEGATIVE); Protein,Urine Dip TRACE (Negative); RBC 0-2 /HPF (0-2); Uric Acid Crystals >100 /HPF (NEGATIVE); Urobilinogen NORMAL mg/dL (0-1); WBC 0-2 /HPF (0-5)
[2017-09-02 10:17] LABS: BASOPHIL % 0.5 % (0.0-0.4); Basophil (Absolute #) 0.02 (0-0.4); Eosinophil % 1.6 % (0.00-5.0); Eosinophil (Absolute #) 0.06 (0-0.5); Granulocyte Absolute (ANC) 2.76 (1.4-6.9); Granulocytes % 72.3 % (36.0-66.0); Hematocrit 37.1 % (35-47); Hemoglobin 12.7 gm/dl (12.0-16.0); Lymphocyte (Absolute #) 0.73 (1.0-4.6); Lymphocytes % 19.1 % (24.0-44.0); Mean Cell Volume 92.1 fl (78-100); Mean Corpuscular Hemoglobin 31.5 pg (26-32); Mean Corpuscular Hgb Concent. 34.2 g/dl (32-36); Mean Platelet Volume 10.7 fl (6-9.5); Monocyte (Absolute #) 0.25 (0.0-1.3); Monocytes % 6.5 % (0.0-12.0); Platelet Count 158 K/mm3 (150-450); Red Blood Count 4.03 M/mm3 (4.1-5.4); Red Cell Distribution Width 13.4 % (11.5-14.0); White Blood Count 3.8 K/mm3 (4.0-10.5)
[2017-09-02 10:41] LABS: INR 0.91 (0.8-3.0)
[2017-09-02 10:44] LABS: PTT 28.8 SECONDS (25.3-37.0)
[2017-09-02 10:49] LABS: ALBUMIN 4.2 g/dL (3.5-5.0); ANION GAP 13.5 MEQ/L (5-15); BILIRUBIN,TOTAL 0.5 mg/dL (0.2-1.3); Calcium 8.9 mg/dL (8.4-10.2); Creatinine 1 1.28 mg/dL (0.52-1.04); Potassium 3.9 mmol/L (3.5-5.1); Total Protein 7.3 g/dL (6.3-8.2)
[2017-09-02 11:16] LABS: ABO TYPING O; Antibody Screen NEGATIVE (NEGATIVE); RH TYPING POSITIVE
--- NOTE | 2017-09-02 11:22 | XRAY ---
Indication: Abdominal pain and rectal bleeding. History obstruction. Multiple contiguous axial images obtained through the abdomen and pelvis without contrast as ordered. Comparison: May 06, 2017. Lung bases again demonstrates minimal bibasilar atelectasis/scarring and left base noncalcified micronodule. No infiltrate or effusion. Heart is not enlarged. Stable small distal paraesophageal calcified node. Noncontrasted stomach and bowel loops again nonobstructed with previous colectomy. Intact sigmoid anastomosis. Remaining sigmoid and rectum fluid filled presumed diarrhea. No free fluid/air. Stable cholecystectomy, hysterectomy, calcified splenic granulomas, and left renal scarring. Remaining liver, pancreas, spleen, adrenal glands, kidneys, ureters, bladder, and aorta appear unremarkable for noncontrast exam. Osseous structures intact with stable multilevel degenerative spondylosis. No ventral or inguinal hernias. Impression: 1. Stable left renal scarring, postsurgical changes, and evidence for old granulomatous disease. 2. No new or acute intra-abdominal/pelvic abnormalities on this noncontrast exam. CT DI 20.86
[2017-09-02] MEDS ORDERED: Sodium Chloride 0.9% 500 ML 500 ML IV ONE (11:49)
[2017-09-02 12:06] VITALS: PULSE 79
[2017-09-02 12:24] VITALS: O2SAT 95
[2017-09-02] MEDS ORDERED: Zofran 4 MG/2 ML VIAL IV PRN (12:24)
[2017-09-02 13:48] VITALS: BP 111/52
== END 2017-09-02 13:50 | disposition left against medical advice (07) ==
LOC: ED 08:43
DX: K62.5 Hemorrhage of anus and rectum (principal); R10.84 Generalized abdominal pain; R11.0 Nausea; E03.9 Hypothyroidism, unspecified; Z98.890 Other specified postprocedural states; Z79.82 Long term (current) use of aspirin; Z79.899 Other long term (current) drug therapy
CPT/HCPCS: 36000; 36415; 74176; 80053; 81000; 82272; 85025; 85610; 85730; 86850; 86900; 86901; 87077; 87086; 87186; 96360; 96361; 96374; 99284; J1642

== ENCOUNTER 2017-10-07 11:59 | Inpatient (IN) | payer MEDICARE ==
--- NOTE | 2017-10-07 12:08 | ERPHSYRPT ---
- History of Present Illness Historian: patient, family Exam Limitations: no limitations Timing/Duration: week(s) (3) Activities at Onset: none Quality: pressure Abdominal Pain Onset Location: generalized abdomen Severity of Pain-Max: moderate Severity of Pain-Current: moderate Modifying Factors: Improves With: nothing, other (attempted otc enemas without benefit.) Previous symptoms: same symptoms as today Hx Tetanus, Diphtheria Vaccination/Date Given: Yes Hx Influenza Vaccination/Date Given: Yes Hx Pneumococcal Vaccination/Date Given: No <PARK ROBERTS - Last Filed: 10/07/17 15:02> <MIKE CONN - Last Filed: 10/07/17 17:19> - History of Present Illness Time Seen by Provider: 10/07/17 12:07 Physician History: 62 y/o white female presents with constipation for over 3 weeks and worsening abd distension with asssociated vomiting pt states she has problems with chronic constipation. pt has had several abd surgeries including hysterectomy, total colectomy, adhesiolysis and surgical placement of a feeding tube. pt does use suppositories and otc enemas. they have been ineffective this round of her sx. (PARK ROBERTS) Allergies/Adverse Reactions: codeine Allergy (Mild, Verified 09/02/17 09:18) Rash MAKES SICK sumatriptan [From Imitrex] Allergy (Verified 09/02/17 09:18) sumatriptan succinate [From Imitrex] Allergy (Verified 09/02/17 09:18) morphine Adverse Reaction (Severe, Verified 09/02/17 09:18) Headache MIGRAINES hydrocodone bitartrate [From Vicodin] Adverse Reaction (Mild, Verified 09/02/17 09:18) Vomiting fentanyl Adverse Reaction (Verified 09/02/17 09:18) Home Medications: Alprazolam 1 mg [Xanax 1 mg] 2 mg PO BID 02/17/13 [History] Rizatriptan Benzoate [Maxalt] 10 mg PO BIDPRN PRN 02/17/13 [History] Polyethylene Glycol 3350 17 gm [Miralax Powder 17GM PACKET] 34 gm PO TID PRN 11/15/14 [History] Sennosides/Docusate Sodium [Senokot-S Tablet] 2 tab PO BID 04/25/15 [History] Promethazine HCl 25 mg [Phenergan 25 mg] 25 mg PO Q4HPRN PRN 05/11/15 [ History] Cetirizine HCl/Pseudoephedrine [Zyrtec-D Tablet] 0.5 each PO DAILY 02/03/16 [ History] Aspirin 81 mg PO DAILY 09/11/16 [History] Omeprazole 40 mg PO DAILY 09/11/16 [History] Oxycodone HCl 10 mg PO Q12H PRN PRN 12/16/16 [History] Levothyroxine Sodium 50 Mcg [Synthroid 50 Mcg] 50 mcg PO DAILY 07/06/17 [ History] Linaclotide [Linzess] 290 mcg PO DAILY 10/07/17 [History] Phenazopyridine HCl 200 mg [Pyridium 200 mg] 200 mg PO BIDPRN PRN [History] - Review of Systems Constitutional: No Symptoms, No Fever Eyes: No Symptoms, No Eye Pain Ears, Nose, & Throat: No Symptoms, No Ear Pain Respiratory: No Symptoms, No Cough, No Dyspnea, No Dyspnea on Exertion (SMITH), No Stridor, No Wheezing Cardiac: No Symptoms, No Chest Pain, No Syncope Abdominal/Gastrointestinal: Abdominal Pain, Nausea, Vomiting, Constipation, No Diarrhea Genitourinary Symptoms: No Symptoms, Dysuria, Frequency, Hematuria Musculoskeletal: No Symptoms, No Back Pain, No Neck Pain Skin: No Symptoms Neurological: No Symptoms Psychological: No Symptoms Endocrine: No Symptoms Hematologic/Lymphatic: No Symptoms Immunological/Allergic: No Symptoms All Other Systems: Reviewed and Negative <PARK ROBERTS - Last Filed: 10/07/17 15:02> - Past Medical History Pertinent Past Medical History: Yes Neurological History: Migraines ENT History: Cataracts, Other Cardiac History: No Pertinent History Respiratory History: Other Endocrine Medical History: Hypothyroidism, Other Musculoskeletal History: Arthritis, Degenerative Disk Disease, Osteoarthritis, Other GI Medical History: GERD, Irritable Bowel, Ulcer, Other History: Other Psycho-Social History: Anxiety Female Reproductive Disorders: Other Other Medical History: Recurrent UTI,urine kidney/bladder problems recurrent. 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 Total colectomy. FEEDING TUBE FOR 4 YEARS, stretches of bladder and urethra, bowel obstructions x2, lithotripsy. - Social History Smoking Status: Never smoker Exposure to second hand smoke: No Alcohol Use: None Drug Use: none Patient Lives Alone: No Significant Family History: no pertinent family hx <PARK ROBERTS - Last Filed: 10/07/17 15:02> - Physical Exam General Appearance: mild distress, alert, anxiety Eye Exam: PERRL/EOMI, eyes nml inspection Ears, Nose, Throat Exam: normal ENT inspection, TMs normal, dry mucous membranes Neck Exam: normal inspection, non-tender, supple, full range of motion Respiratory Exam: normal breath sounds, lungs clear, airway intact, No chest tenderness, No respiratory distress, No rhonchi, No wheezing, No stridor Cardiovascular Exam: regular rate/rhythm, normal heart sounds, normal peripheral pulses Gastrointestinal/Abdomen Exam: tenderness (generalized), distention (diffuse), guarding, No rebound Pelvic Exam: not done Rectal Exam: not done Back Exam: normal inspection, normal range of motion, No CVA tenderness, No vertebral tenderness Extremity Exam: normal inspection, normal range of motion, pelvis stable Neurologic Exam: alert, 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, cooperative, rn family practice II-XII nml as tested Skin Exam: normal color, warm, dry Lymphatic Exam: No adenopathy SpO2 Interpretation: normal Oxygen Delivery: Room Air <PARK ROBERTS - Last Filed: 10/07/17 15:02> - Nursing Vital Signs Nursing Vital Signs: Initial Vital Signs Temperature 98.2 F 10/07/17 12:03 Pulse Rate 106 H 10/07/17 12:03 Respiratory Rate 18 10/07/17 12:03 Blood Pressure 112/82 10/07/17 12:03 O2 Sat by Pulse Oximetry 96 10/07/17 12:03 Pain Scale Pain Intensity 8 - Course Nursing assessment & vital signs reviewed: Yes <MIKE CONN - Last Filed: 10/07/17 17:19> Ordered Tests: Active Orders 24 hr Category Date Time Status Enema STAT Care 10/07/17 12:27 Active IV Insertion STAT Care 10/07/17 12:24 Active NG to Suction (Insertion) ROUTINE Care 10/07/17 17:15 Ordered ABDOMEN AND PELVIS W CONTRAST [CT] Stat Exams 10/07/17 12:24 Completed AMYLASE Stat Lab 10/07/17 12:34 Completed CBC W DIFF Stat Lab 10/07/17 12:34 Completed CMP Stat Lab 10/07/17 12:34 Completed LIPASE Stat Lab 10/07/17 12:34 Completed Lactic Acid Stat Lab 10/07/17 13:00 Completed UA W/RFX UR CULTURE Stat Lab 10/07/17 12:24 Uncollected Medication Summary Generic Name Dose Route Start Last Admin Trade Name Freq PRN Reason Stop Dose Admin Sodium Chloride 1,000 mls @ 125 mls/hr 10/07/17 14:30 10/07/17 14:27 Sodium Chloride 0.9% 1000 Ml IV 11/06/17 14:29 125 mls/hr .Q8H JENNIFER Administration Discontinued Medications Generic Name Dose Route Start Last Admin Trade Name Freq PRN Reason Stop Dose Admin Sodium Chloride 1,000 mls @ 999 mls/hr 10/07/17 12:24 10/07/17 14:54 Sodium Chloride 0.9% 1000 Ml IV 10/07/17 13:24 Infused .Q1H1M STA Infusion Sodium Chloride Confirm 10/07/17 12:38 Sodium Chloride 0.9% 1000 Ml Administered 10/07/17 12:39 Dose 1,000 mls @ ud .ROUTE .STK-MED ONE Morphine Sulfate 2 mg 10/07/17 14:38 10/07/17 14:43 Morphine Sulfate 2 Mg Inj IV 10/07/17 14:39 2 mg STAT ONE Administration Morphine Sulfate Confirm 10/07/17 14:40 Morphine Sulfate 2 Mg Inj Administered 10/07/17 14:41 Dose 2 mg .ROUTE .STK-MED ONE Morphine Sulfate 2 mg 10/07/17 16:56 10/07/17 17:01 Morphine Sulfate 2 Mg Inj IV 10/07/17 16:57 2 mg STAT ONE Administration Morphine Sulfate Confirm 10/07/17 16:58 Morphine Sulfate 2 Mg Inj Administered 10/07/17 16:59 Dose 2 mg .ROUTE .STK-MED ONE Ondansetron HCl 4 mg 10/07/17 16:56 10/07/17 17:02 Zofran 4 Mg/2 Ml Vial IV 10/07/17 16:57 4 mg STAT ONE Administration Ondansetron HCl Confirm 10/07/17 16:58 Zofran 4 Mg/2 Ml Vial Administered 10/07/17 16:59 Dose 4 mg .ROUTE .STK-MED ONE Promethazine HCl 12.5 mg 10/07/17 12:24 10/07/17 12:46 Phenergan 25 Mg Inj IV 10/07/17 12:25 12.5 mg STAT ONE Administration Promethazine HCl Confirm 10/07/17 12:38 Phenergan 25 Mg Inj Administered 10/07/17 12:39 Dose 25 mg .ROUTE .STK-MED ONE Promethazine HCl 12.5 mg 10/07/17 14:07 10/07/17 14:30 Phenergan 25 Mg Inj IV 10/07/17 14:08 12.5 mg STAT ONE Administration Promethazine HCl Confirm 10/07/17 14:18 Phenergan 25 Mg Inj Administered 10/07/17 14:19 Dose 25 mg .ROUTE .STK-MED ONE Lab/Rad Data: Laboratory Result Diagrams 10/07/17 12:34 10/07/17 12:34 Laboratory Results 10/07/17 10/07/17 10/07/17 Range/Units 13:00 12:34 12:34 WBC 5.7 (4.0-10.5) K/mm3 RBC 4.62 (4.1-5.4) M/mm3 Hgb 14.4 (12.0-16.0) gm/dl Hct 42.7 (35-47) % MCV 92.4 (78-100) fl MCH 31.2 (26-32) pg MCHC 33.7 (32-36) g/dl RDW 13.6 (11.5-14.0) % Plt Count 173 (150-450) K/mm3 MPV 10.8 H (6-9.5) fl Gran % 72.6 H (36.0-66.0) % Eos # (Auto) 0.08 (0-0.5) Absolute Lymphs (auto) 1.10 (1.0-4.6) Absolute Monos (auto) 0.36 (0.0-1.3) Lymphocytes % 19.3 L (24.0-44.0) % Monocytes % 6.3 (0.0-12.0) % Eosinophils % 1.4 (0.00-5.0) % Basophils % 0.4 (0.0-0.4) % Absolute Granulocytes 4.14 (1.4-6.9) Basophils # 0.02 (0-0.4) Sodium 142 (137-145) mmol/L Potassium 4.3 (3.5-5.1) mmol/L Chloride 112 H (98-107) mmol/L Carbon Dioxide 19 L (22-30) mmol/L Anion Gap 15.9 H (5-15) MEQ/L BUN 13 (7-17) mg/dL Creatinine 1.11 H (0.52-1.04) mg/dL Estimated GFR 52.9 ML/MIN Glucose 128 H (74-106) mg/dL Lactic Acid 1.5 (0.4-2.0) Calcium 9.9 (8.4-10.2) mg/dL Total Bilirubin 0.70 (0.2-1.3) mg/dL AST 20 (14-36) U/L ALT 16 (0-35) U/L Alkaline Phosphatase 120 (38-126) U/L Serum Total Protein 8.0 (6.3-8.2) g/dL Albumin 4.7 (3.5-5.0) g/dL Amylase 92 (30-110) U/L Lipase 129 (23-300) U/L - Progress Progress: improved, re-examined <PARK ROBERTS - Last Filed: 10/07/17 15:02> - Progress Progress: improved <MIKE CONN - Last Filed: 10/07/17 17:19> - Progress Progress Note: 10/07/17 14:39 pt states she is passing gas and liquid stools. she is experiencing abd cramping and wants morphine. she does not have a true allergy. she states it makes her feel doped up. however, she will take a small dose. 10/07/17 15:02 i reviewed pt hx, condition, lab results with dr edgar conn. he is to check on ct scan results when they are available. i have signed out and transferred care to him (PARK ROBERTS) 10/07/17 16:[address] scan abd/pelvis shows a new uniformly fluid distended bowel loops with synchronous fluid leveling, ileus vs enteritis. No bowel obstruction. Pt has relief after receiving morphine and promethazine. Pt has also received NS fluids. 10/07/17 17:[address] Meehan who wants the patient to have an NGT. Pt will be admitted here and have pain meds, anti-emetics and NS fluids. Pt has been admitted to Dr Benz. (MIKE CONN) <PARK ROBERTS - Last Filed: 10/07/17 15:02> - Departure Time of Disposition: 17:18 Departure Disposition: In-patient Admission Critical Care Time: Yes Critical Care Time(excluding separately billable procedures): 30-74 minutes <MIKE CONN - Last Filed: 10/07/17 17:19> - Departure Clinical Impression: Ileus Abdominal pain Qualifiers: Abdominal location: generalized Qualified Code(s): R10.84 - Generalized abdominal pain Condition: Fair Referrals: PAWEL BENZ [Primary Care Provider] -
[2017-10-07] MEDS ORDERED: Phenergan 25 MG INJ IV ONE ×2 (12:24→14:07)
[2017-10-07] MEDS ORDERED: Sodium Chloride 0.9% 1000 ML 1,000 ML IV STA (12:24)
[2017-10-07 12:38] LABS: BASOPHIL % 0.4 % (0.0-0.4); Basophil (Absolute #) 0.02 (0-0.4); Eosinophil % 1.4 % (0.00-5.0); Eosinophil (Absolute #) 0.08 (0-0.5); Granulocyte Absolute (ANC) 4.14 (1.4-6.9); Granulocytes % 72.6 % (36.0-66.0); Hematocrit 42.7 % (35-47); Hemoglobin 14.4 gm/dl (12.0-16.0); Lymphocytes % 19.3 % (24.0-44.0); Mean Cell Volume 92.4 fl (78-100); Mean Corpuscular Hemoglobin 31.2 pg (26-32); Mean Corpuscular Hgb Concent. 33.7 g/dl (32-36); Mean Platelet Volume 10.8 fl (6-9.5); Monocyte (Absolute #) 0.36 (0.0-1.3); Monocytes % 6.3 % (0.0-12.0); Platelet Count 173 K/mm3 (150-450); Red Blood Count 4.62 M/mm3 (4.1-5.4); Red Cell Distribution Width 13.6 % (11.5-14.0); White Blood Count 5.7 K/mm3 (4.0-10.5)
[2017-10-07] MEDS ORDERED: Sodium Chloride 0.9% 1000 ML 1,000 ML ONE (12:38)
[2017-10-07] MEDS ORDERED: Phenergan 25 MG INJ ONE ×2 (12:38→14:18)
[2017-10-07 12:59] LABS: ALBUMIN 4.7 g/dL (3.5-5.0); ANION GAP 15.9 MEQ/L (5-15); BILIRUBIN,TOTAL 0.7 mg/dL (0.2-1.3); Calcium 9.9 mg/dL (8.4-10.2); Creatinine 1 1.11 mg/dL (0.52-1.04); Potassium 4.3 mmol/L (3.5-5.1)
[2017-10-07] MEDS ORDERED: Sodium Chloride 0.9% 1000 ML 1,000 ML IV SCH (14:30)
[2017-10-07] MEDS ORDERED: MORPHINE SULFATE 2 MG INJ IV ONE ×2 (14:38→16:56)
[2017-10-07] MEDS ORDERED: MORPHINE SULFATE 2 MG INJ ONE ×2 (14:40→16:58)
--- NOTE | 2017-10-07 16:18 | XRAY ---
Indication: Abdominal distention, constipation, nausea, and vomiting. Multiple contiguous axial images obtained through the abdomen and pelvis using 80 cc Isovue 370 contrast only. Comparison: September 02, 2017. Lung bases demonstrate stable minimal bibasilar fibrosis/scarring and left base noncalcified micronodule. No infiltrate or effusion. Heart is not enlarged. Stable small distal paraesophageal calcified node. Noncontrasted stomach unremarkable. Again previous colectomy with intact anastomosis. Noncontrasted bowel loops now demonstrates mild uniformly fluid distended small bowel loops with synchronous fluid leveling, ileus versus enteritis. Rectum also fluid distended presumed diarrhea. No free fluid/air. Stable cholecystectomy, hysterectomy, calcified splenic granulomas, left renal scarring, and tiny right renal cyst. Remaining liver, pancreas, spleen, adrenal glands, kidneys, ureters, bladder, and aorta appear unremarkable. No pathologic retroperitoneal lymphadenopathy. Osseous structures intact again with mild lumbar degenerative spondylosis. Impression: 1. New uniformly fluid distended bowel loops with synchronous fluid leveling, ileus versus enteritis. 2. Stable left renal scarring, right renal cyst, colectomy, and evidence for old granulomatous disease. CTDI 19.99
[2017-10-07] MEDS ORDERED: Zofran 4 MG/2 ML VIAL IV ONE (16:56)
[2017-10-07] MEDS ORDERED: Zofran 4 MG/2 ML VIAL ONE (16:58)
[2017-10-07] MEDS ORDERED: MORPHINE SULFATE 2 MG INJ IV PRN (17:19)
[2017-10-07] MEDS ORDERED: Zofran 4 MG/2 ML VIAL IV PRN (17:19)
[2017-10-07 20:19] LABS: Appearance CLEAR (CLEAR); Bilirubin NEGATIVE (NEGATIVE); Blood 250 Ery/ul (0-5); Glucose NEGATIVE (NEGATIVE); Ketones NEGATIVE (NEGATIVE); Leukocyte Esterase 1+ (NEGATIVE); Nitrite NEGATIVE (NEGATIVE); Protein,Urine Dip NEGATIVE (Negative); Urobilinogen NORMAL mg/dL (0-1)
[2017-10-07 20:20] LABS: Bacteria FEW /HPF (NEGATIVE); Epithelial Cells RARE /HPF (FEW)
[2017-10-07] MEDS ORDERED: XANAX 1 MG PO ONE (22:00)
[2017-10-07] MEDS: Sodium Chloride 0.9% 1000 ML 1,000 ML IV SCH (22:44)
[2017-10-08 06:01] LABS: BASOPHIL % 0.3 % (0.0-0.4); Basophil (Absolute #) 0.01 (0-0.4); Eosinophil % 1.8 % (0.00-5.0); Eosinophil (Absolute #) 0.07 (0-0.5); Granulocyte Absolute (ANC) 2.24 (1.4-6.9); Granulocytes % 58.2 % (36.0-66.0); Hematocrit 37.4 % (35-47); Hemoglobin 12.5 gm/dl (12.0-16.0); Lymphocyte (Absolute #) 1.19 (1.0-4.6); Lymphocytes % 30.9 % (24.0-44.0); Mean Cell Volume 93.7 fl (78-100); Mean Corpuscular Hemoglobin 31.3 pg (26-32); Mean Corpuscular Hgb Concent. 33.4 g/dl (32-36); Mean Platelet Volume 10.1 fl (6-9.5); Monocyte (Absolute #) 0.34 (0.0-1.3); Monocytes % 8.8 % (0.0-12.0); Platelet Count 142 K/mm3 (150-450); Red Blood Count 3.99 M/mm3 (4.1-5.4); Red Cell Distribution Width 13.4 % (11.5-14.0); White Blood Count 3.9 K/mm3 (4.0-10.5)
[2017-10-08 06:22] LABS: ANION GAP 10.7 MEQ/L (5-15); BLOOD UREA NITROGEN 13 mg/dL (7-17); CHLORIDE 114 mmol/L (98-107); Calcium 8.4 mg/dL (8.4-10.2); Carbon Dioxide 21 mmol/L (22-30); Creatinine 1 0.96 mg/dL (0.52-1.04); Glucose 88 mg/dL (74-106); Potassium 4.7 mmol/L (3.5-5.1); SODIUM 141 mmol/L (137-145)
[2017-10-08] MEDS ORDERED: TORAdol 30 mg Injection IV ONE (08:59)
--- NOTE | 2017-10-08 09:06 | PCM.HP ---
History of Present Illness - Chief Complaint Chief Complaint: Ileus History of Present Illness: is a 62 year old female pt of mine from [facility] with extensive medical hx who came to the ER yesterday with vomiting and abd pain. Pain was 10/10 cramping pain, with abd distension. She was found on CT to have ileus vs enteritis and surgery was consulted. This morning pt is denying abd pain; last pain med last night. Her chief complaint this morning is her headache; we had held her po meds last night. She is c/o nausea. Has been passing stool. She has a PMHx of SBO x 2 in 2000 with colectomy. She has had pseudo- obstruction and sees DR. Drummond, gastroenterology in [place]. She has also been seeing DR. Mckay, urology, in [place] for persistent cystitis and UTIs. She was at [facility] Sep [address] Mckay did a procedure under anesthesia, pt is not sure what. She states she started "getting sick" at that time, she is a poor historian, but she indicates having similar symptoms as last night for most of this month. Her last [address] Drummond were in August of 2017. She denies fever. Has been trying to push fluids with difficulty. - Review of Systems Respiratory: Cough Abdominal/Gastrointestinal: Abdominal Pain, Nausea, Vomiting, Diarrhea, Appetite Changes Genitourinary Symptoms: Dysuria, Frequency, Urinary Retention (urinating better since coming to [facility] floor) Neurological: Headache Psychological: No Suicidal Ideations All Other Systems: Reviewed and Negative Medications & Allergies Home Medications: Home Medication List Alprazolam 1 mg [Xanax 1 mg] 2 mg PO BID 02/17/13 [History Confirmed 10/07] Rizatriptan Benzoate [Maxalt] 10 mg PO BIDPRN PRN 02/17/13 [History Confirmed ] Polyethylene Glycol 3350 17 gm [Miralax Powder 17GM PACKET] 34 gm PO TID PRN 11/15/14 [History Confirmed 10/07/17] Sennosides/Docusate Sodium [Senokot-S Tablet] 2 tab PO BID 04/25/15 [History Confirmed 10/07/17] Promethazine HCl 25 mg [Phenergan 25 mg] 25 mg PO Q4HPRN PRN 05/11/15 [ History Confirmed 10/07/17] Cetirizine HCl/Pseudoephedrine [Zyrtec-D Tablet] 0.5 each PO DAILY 02/03/16 [ History Confirmed 10/07/17] Aspirin 81 mg PO DAILY 09/11/16 [History Confirmed 10/07/17] Omeprazole 40 mg PO DAILY 09/11/16 [History Confirmed 10/07/17] Oxycodone HCl 10 mg PO Q12H PRN PRN 12/16/16 [History Confirmed 10/07/17] Levothyroxine Sodium 50 Mcg [Synthroid 50 Mcg] 50 mcg PO DAILY 07/06/17 [ History Confirmed 10/07/17] Linaclotide [Linzess] 290 mcg PO DAILY 10/07/17 [History Confirmed 10/07/17] Phenazopyridine HCl 200 mg [Pyridium 200 mg] 200 mg PO BIDPRN PRN [History Confirmed 10/07/17] Allergies/Adverse Reactions: Allergies Allergy/AdvReac Type Severity Reaction Status Date / Time codeine Allergy Mild Rash Verified 09/02/17 09:18 sumatriptan [From Imitrex] Allergy Verified 09/02/17 09:18 sumatriptan succinate Allergy Verified 09/02/17 09:18 [From Imitrex] morphine AdvReac Severe Headache Verified 09/02/17 09:18 hydrocodone bitartrate AdvReac Mild Vomiting Verified 09/02/17 09:18 [From Vicodin] fentanyl AdvReac Verified 09/02/17 09:18 - Past Medical History Past Medical History: Yes Neurological History: Migraines ENT History: Cataracts, Other Cardiac History: No Pertinent History Respiratory History: Other Endocrine Medical History: Hypothyroidism, Other Musculoskelatal History: Arthritis, Degenerative Disk Disease, Osteoarthritis, Other GI Medical History: GERD, Irritable Bowel, Ulcer, Other History: Other Pyscho-Social History: Anxiety Reproductive Disorders: Other Comment: Recurrent UTI,urine kidney/bladder problems recurrent. infection "ESBL " in kidneys and bladder - Female History Hx Last Menstrual Period: HYSTER Are you now?: No - Past Surgical History Past Surgical History: Yes Neuro Surgical History: No Pertinent History Cardiac History: No Pertinent History Respiratory Surgery: No Pertinent History GI Surgical History: Bowel Surgery, Cholecystectomy, Colon Resection, Hernia Repair Genitourinary Surgical Hx: Other Musculskeletal Surgical Hx: No Pertinent History Female Surgical History: Hysterectomy Other Surgical History: COLONOSCOPIES, EGDs. Total colectomy. FEEDING TUBE FOR 4 YEARS, stretches of bladder and urethra, bowel obstructions x2, lithotripsy. - Social History Smoking Status: Never smoker Exposure to second hand smoke: No Alcohol: None Drug Use: none Significant Family History: no pertinent family hx - Physical Exam Vital Signs: Vital Signs - 24 hr Temp Pulse Resp BP Pulse Ox 10/08/17 07:29 97.7 F 67 18 109/53 97 10/08/17 04:10 97.9 F 58 L 16 90/50 96 10/07/17 23:32 98.5 F 71 16 104/58 98 10/07/17 20:00 98.5 F 81 16 93/61 94 L 10/07/17 18:35 98.5 F 81 18 93/61 94 L 10/07/17 16:50 82 20 95/72 99 10/07/17 16:30 68 20 105/64 96 10/07/17 14:50 84 20 94/65 96 10/07/17 14:08 78 22 109/68 98 10/07/17 12:50 100 H 22 98/72 94 L 10/07/17 12:03 98.2 F 106 H 18 112/82 96 Oxygen-Last 24 hours O2 Percentage 2 Liters = 28% O2 Percentage 2 Liters = 28% O2 Percentage 2 Liters = 28% General Appearance: moderate distress (holding her head and keeping her eyes shut), alert Neurologic Exam: 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, cooperative Ears, Nose, Throat Exam: moist mucous membranes Neck Exam: normal inspection, non-tender, No lymphadenopathy Respiratory Exam: normal breath sounds, lungs clear, No crackles/rales, No rhonchi, No wheezing Cardiovascular Exam: regular rate/rhythm, normal heart sounds, No murmur Gastrointestinal/Abdomen Exam: soft, tenderness (RUQ, mild), No normal bowel sounds (hypoactive), No distention, No mass, No guarding, No rebound Results - Labs Lab/Micro Results: Lab Results-Last 24 Hours 10/07/17 10/07/17 10/07/17 Range/Units 12:34 12:34 13:00 WBC 5.7 (4.0-10.5) K/mm3 RBC 4.62 (4.1-5.4) M/mm3 Hgb 14.4 (12.0-16.0) gm/dl Hct 42.7 (35-47) % MCV 92.4 (78-100) fl MCH 31.2 (26-32) pg MCHC 33.7 (32-36) g/dl RDW 13.6 (11.5-14.0) % Plt Count 173 (150-450) K/mm3 MPV 10.8 H (6-9.5) fl Gran % 72.6 H (36.0-66.0) % Eos # (Auto) 0.08 (0-0.5) Absolute Lymphs (auto) 1.10 (1.0-4.6) Absolute Monos (auto) 0.36 (0.0-1.3) Lymphocytes % 19.3 L (24.0-44.0) % Monocytes % 6.3 (0.0-12.0) % Eosinophils % 1.4 (0.00-5.0) % Basophils % 0.4 (0.0-0.4) % Absolute Granulocytes 4.14 (1.4-6.9) Basophils # 0.02 (0-0.4) Sodium 142 (137-145) mmol/L Potassium 4.3 (3.5-5.1) mmol/L Chloride 112 H (98-107) mmol/L Carbon Dioxide 19 L (22-30) mmol/L Anion Gap 15.9 H (5-15) MEQ/L BUN 13 (7-17) mg/dL Creatinine 1.11 H (0.52-1.04) mg/dL Estimated GFR 52.9 ML/MIN Glucose 128 H (74-106) mg/dL Lactic Acid 1.5 (0.4-2.0) Calcium 9.9 (8.4-10.2) mg/dL Total Bilirubin 0.70 (0.2-1.3) mg/dL AST 20 (14-36) U/L ALT 16 (0-35) U/L Alkaline Phosphatase 120 (38-126) U/L Serum Total Protein 8.0 (6.3-8.2) g/dL Albumin 4.7 (3.5-5.0) g/dL Amylase 92 (30-110) U/L Lipase 129 (23-300) U/L Ur Collection Type Urine Color (YELLOW) Urine Appearance (CLEAR) Urine pH (5-6) Ur Specific Acosta (1.005-1.025) Urine Protein (Negative) Urine Ketones (NEGATIVE) Urine Blood (0-5) Aroldo/ul Urine Nitrite (NEGATIVE) Urine Bilirubin (NEGATIVE) Urine Urobilinogen (0-1) mg/dL Ur Leukocyte Esterase (NEGATIVE) Urine Microscopic RBC (0-2) /HPF Urine Microscopic WBC (0-5) /HPF Ur Epithelial Cells (FEW) /HPF Urine Bacteria (NEGATIVE) /HPF Urine Culture Reflexed (NO) Urine Glucose (NEGATIVE) mg/dL Specimen Received 10/07/17 10/08/17 10/08/17 Range/Units 20:07 05:45 05:45 WBC 3.9 L (4.0-10.5) K/mm3 RBC 3.99 L (4.1-5.4) M/mm3 Hgb 12.5 (12.0-16.0) gm/dl Hct 37.4 (35-47) % MCV 93.7 (78-100) fl MCH 31.3 (26-32) pg MCHC 33.4 (32-36) g/dl RDW 13.4 (11.5-14.0) % Plt Count 142 L (150-450) K/mm3 MPV 10.1 H (6-9.5) fl Gran % 58.2 (36.0-66.0) % Eos # (Auto) 0.07 (0-0.5) Absolute Lymphs (auto) 1.19 (1.0-4.6) Absolute Monos (auto) 0.34 (0.0-1.3) Lymphocytes % 30.9 (24.0-44.0) % Monocytes % 8.8 (0.0-12.0) % Eosinophils % 1.8 (0.00-5.0) % Basophils % 0.3 (0.0-0.4) % Absolute Granulocytes 2.24 (1.4-6.9) Basophils # 0.01 (0-0.4) Sodium 141 (137-145) mmol/L Potassium 4.7 (3.5-5.1) mmol/L Chloride 114 H (98-107) mmol/L Carbon Dioxide 21 L (22-30) mmol/L Anion Gap 10.7 (5-15) MEQ/L BUN 13 (7-17) mg/dL Creatinine 0.96 (0.52-1.04) mg/dL Estimated GFR > 60.0 ML/MIN Glucose 88 (74-106) mg/dL Lactic Acid (0.4-2.0) Calcium 8.4 (8.4-10.2) mg/dL Total Bilirubin (0.2-1.3) mg/dL AST (14-36) U/L ALT (0-35) U/L Alkaline Phosphatase (38-126) U/L Serum Total Protein (6.3-8.2) g/dL Albumin (3.5-5.0) g/dL Amylase (30-110) U/L Lipase (23-300) U/L Ur Collection Type VOID Urine Color YELLOW (YELLOW) Urine Appearance CLEAR (CLEAR) Urine pH 5.0 (5-6) Ur Specific [place] 1.010 (1.005-1.025) Urine Protein NEGATIVE (Negative) Urine Ketones NEGATIVE (NEGATIVE) Urine Blood 250 (0-5) Aroldo/ul Urine Nitrite NEGATIVE (NEGATIVE) Urine Bilirubin NEGATIVE (NEGATIVE) Urine Urobilinogen NORMAL (0-1) mg/dL Ur Leukocyte Esterase 1+ (NEGATIVE) Urine Microscopic RBC 2-5 (0-2) /HPF Urine Microscopic WBC 2-5 (0-5) /HPF Ur Epithelial Cells RARE (FEW) /HPF Urine Bacteria FEW (NEGATIVE) /HPF Urine Culture Reflexed YES (NO) Urine Glucose NEGATIVE (NEGATIVE) mg/dL Specimen Received 10-07 - Radiology Impressions Radiology Exams & Impressions: Radiology Procedures Category Date Time Status ABDOMEN AND PELVIS W CONTRAST [CT] Stat Exams 10/07/17 12:24 Completed Assessment/Plan (1) Abdominal pain Current Visit: Yes Status: Acute Onset Date: ~10/07/17 Qualifiers: Abdominal location: generalized Qualified Code(s): R10.84 - Generalized abdominal pain Assessment & Plan: Much improved. She does have a surgery consult, but at this point she is passing stool. Will go ahead with some clear liquids. I will contact Dr. Drummond in [place]. Code(s): R10.9 - UNSPECIFIED ABDOMINAL PAIN (2) Diarrhea Current Visit: Yes Status: Acute Assessment & Plan: C. diff pending. Code(s): R19.7 - DIARRHEA, UNSPECIFIED (3) Ileus Current Visit: Yes Status: Acute Onset Date: ~10/07/17 Assessment & Plan: Seems improved. Code(s): K56.7 - ILEUS, UNSPECIFIED (4) Chronic urinary tract infection Current Visit: No Status: Chronic Code(s): N39.0 - URINARY TRACT INFECTION, SITE NOT SPECIFIED (5) Renal insufficiency Current Visit: Yes Status: Acute Assessment & Plan: Cr back to normal this morning. (6) Headache Current Visit: Yes Status: Acute Qualifiers: Headache type: unspecified Headache chronicity pattern: acute headache Assessment & Plan: will try toradol and phenergan; ok to take home triptan (she has an allergy listed to the one on our formulary) Code(s): R51 - HEADACHE
[2017-10-08] MEDS: Sodium Chloride 0.9% 1000 ML 1,000 ML IV SCH ×2 (09:43→20:50)
[2017-10-08] MEDS: Phenergan 25 MG INJ IV PRN (09:44)
[2017-10-08] MEDS ORDERED: NON-FORMULARY ITEM (Rizatriptan Benzoate [Maxalt] 10 MG) PO PRN (11:14)
[2017-10-08] MEDS ORDERED: PYRIDIUM 200 MG PO PRN (11:14)
[2017-10-08] MEDS: SYNTHROID 50 MCG PO SCH (11:37)
[2017-10-08] MEDS: PROTONIX 40 MG IV IV SCH (11:37)
[2017-10-08] MEDS ORDERED: ENOXAPARIN SODIUM SQ SCH (12:00)
[2017-10-08] MEDS: XANAX 1 MG PO SCH (13:01)
[2017-10-08] MEDS ORDERED: Phenergan 25 MG INJ IV PRN ×2 (15:51→16:43)
[2017-10-08] MEDS ORDERED: TORAdol 30 mg Injection IV PRN (15:52)
[2017-10-08] MEDS: Levofloxacin 500MG/100ML D5W 500 MG/100 ML BAG IV SCH (17:08)
[2017-10-08 17:59] LABS: 027 TOX PROD PRESUMPTIVE NEGATIVE (NEGATIVE); TOXIGENIC C. DIFF ORG NEGATIVE (NEGATIVE)
[2017-10-08] MEDS ORDERED: Monistat 7 VG ONE (18:30)
[2017-10-09] MEDS: XANAX 1 MG PO SCH ×3 (00:43→19:40)
[2017-10-09 05:28] LABS: BASOPHIL % 0.4 % (0.0-0.4); Basophil (Absolute #) 0.01 (0-0.4); Eosinophil % 2.3 % (0.00-5.0); Eosinophil (Absolute #) 0.06 (0-0.5); Granulocyte Absolute (ANC) 1.46 (1.4-6.9); Granulocytes % 57.1 % (36.0-66.0); Hematocrit 32.2 % (35-47); Hemoglobin 10.7 gm/dl (12.0-16.0); Lymphocyte (Absolute #) 0.84 (1.0-4.6); Lymphocytes % 32.8 % (24.0-44.0); Mean Cell Volume 94.7 fl (78-100); Mean Corpuscular Hgb Concent. 33.2 g/dl (32-36); Mean Platelet Volume 10.7 fl (6-9.5); Monocyte (Absolute #) 0.19 (0.0-1.3); Monocytes % 7.4 % (0.0-12.0); Platelet Count 126 K/mm3 (150-450); Red Cell Distribution Width 13.1 % (11.5-14.0); White Blood Count 2.6 K/mm3 (4.0-10.5)
[2017-10-09 05:32] LABS: Mean Corpuscular Hemoglobin 31.4 pg (26-32)
[2017-10-09 05:45] LABS: ALBUMIN 2.7 g/dL (3.5-5.0); ALKALINE PHOSPHATASE 69 U/L (38-126); ANION GAP 9.3 MEQ/L (5-15); BLOOD UREA NITROGEN 11 mg/dL (7-17); CHLORIDE 115 mmol/L (98-107); Carbon Dioxide 20 mmol/L (22-30); Creatinine 1 0.87 mg/dL (0.52-1.04); Glucose 89 mg/dL (74-106); Potassium 3.9 mmol/L (3.5-5.1); SGOT/AST 14 U/L (14-36); SGPT/ALT 11 U/L (0-35); SODIUM 141 mmol/L (137-145); Total Protein 5.1 g/dL (6.3-8.2)
[2017-10-09] MEDS: Sodium Chloride 0.9% 1000 ML 1,000 ML IV SCH (07:17)
[2017-10-09] MEDS: SYNTHROID 50 MCG PO SCH (08:07)
[2017-10-09] MEDS ORDERED: TYLENOL 325 MG PO PRN (09:56)
[2017-10-09] MEDS ORDERED: Oxy-IR 5 MG PO PRN (09:59)
--- NOTE | 2017-10-09 10:04 | PCM.NOTE ---
Date and Time: 10/09/17958 Subjective Assessment: she is feeling better today has had 4 bowel movements they were watery and last was black which she states is normal after having an episode like this. She has vaginal itching. she is hungry and has tolerated clears well with no vomiting she is very weak and had oxygen go low with sleeping last night Objective Exam General Appearance: no apparent distress, alert Neurologic Exam: alert, 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, cooperative Skin Exam: warm, dry, pale Eye Exam: pale conjunctivae, No scleral icterus Ears, Nose, Throat Exam: dry mucous membranes Neck Exam: non-tender, supple Respiratory Exam: normal breath sounds, lungs clear Cardiovascular Exam: regular rate/rhythm, normal heart sounds, normal peripheral pulses Gastrointestinal/Abdomen Exam: soft, normal bowel sounds, No tenderness, No distention, No mass, No guarding Extremity Exam: normal inspection, No calf tenderness, No pedal edema OBJECTIVE DATA Vital Signs: Vital Signs - 24 hr Temp Pulse Resp BP Pulse Ox 10/09/17 08:00 97.5 F 63 16 85/49 95 10/09/17 04:00 56 L 94 L 10/08/17 23:53 98.4 F 71 16 108/55 95 10/08/17 20:00 98.4 F 77 18 105/63 98 10/08/17 19:18 94 L 10/08/17 17:11 97 10/08/17 16:00 97.8 F 72 16 94/56 98 10/08/17 12:00 97.7 F 74 16 92/58 100 Oxygen-Last 24 hours O2 Percentage 2 Liters = 28% O2 Percentage 2 Liters = 28% O2 Percentage 2 Liters = 28% O2 Percentage 2 Liters = 28% O2 Percentage 2 Liters = 28% Pain Assessment - Last Documented Pain Intensity 3 Pain Scale Used [facility] Intake and Output: Intake & Output 10/06/17 10/07/17 10/08/17 10/09/17 11:59 11:59 11:59 11:59 Intake Total 939 3348 Output Total 1600 500 Balance -661 3888 Weight 82.6 kg 82.6 kg Lab Results: Lab Results-Last 24 Hours 10/08/17 10/09/17 10/09/17 Range/Units 17:01 05:20 05:20 WBC 2.6 L (4.0-10.5) K/mm3 RBC 3.40 L (4.1-5.4) M/mm3 Hgb 10.7 L (12.0-16.0) gm/dl Hct 32.2 L (35-47) % MCV 94.7 (78-100) fl MCH 31.4 (26-32) pg MCHC 33.2 (32-36) g/dl RDW 13.1 (11.5-14.0) % Plt Count 126 L (150-450) K/mm3 MPV 10.7 H (6-9.5) fl Gran % 57.1 (36.0-66.0) % Eos # (Auto) 0.06 (0-0.5) Absolute Lymphs (auto) 0.84 L (1.0-4.6) Absolute Monos (auto) 0.19 (0.0-1.3) Lymphocytes % 32.8 (24.0-44.0) % Monocytes % 7.4 (0.0-12.0) % Eosinophils % 2.3 (0.00-5.0) % Basophils % 0.4 (0.0-0.4) % Absolute Granulocytes 1.46 (1.4-6.9) Basophils # 0.01 (0-0.4) Sodium 141 (137-145) mmol/L Potassium 3.9 (3.5-5.1) mmol/L Chloride 115 H (98-107) mmol/L Carbon Dioxide 20 L (22-30) mmol/L Anion Gap 9.3 (5-15) MEQ/L BUN 11 (7-17) mg/dL Creatinine 0.87 (0.52-1.04) mg/dL Estimated GFR > 60.0 ML/MIN Glucose 89 (74-106) mg/dL Calcium 8.0 L (8.4-10.2) mg/dL Total Bilirubin 0.50 (0.2-1.3) mg/dL AST 14 (14-36) U/L ALT 11 (0-35) U/L Alkaline Phosphatase 69 (38-126) U/L Serum Total Protein 5.1 L (6.3-8.2) g/dL Albumin 2.7 L (3.5-5.0) g/dL Stl C. diff Tox B Gene NEGATIVE (NEGATIVE) C.difficile [id number] PRESUMPTIVE NEGATIVE (NEGATIVE) Radiology Exams: Radiology Procedures Category Date Time Status ABDOMEN AND PELVIS W CONTRAST [CT] Stat Exams 10/07/17 12:24 Completed Assessment/Plan (1) Ileus Current Visit: Yes Status: Acute Onset Date: ~10/07/17 Code(s): K56.7 - ILEUS, UNSPECIFIED (2) Interstitial cystitis Current Visit: Yes Status: Acute Code(s): N30.10 - INTERSTITIAL CYSTITIS ( CHRONIC) WITHOUT HEMATURIA (3) Chronic urinary tract infection Current Visit: Yes Status: Chronic Code(s): N39.0 - URINARY TRACT INFECTION , SITE NOT SPECIFIED (4) Anemia Current Visit: Yes Status: Acute Code(s): D64.9 - ANEMIA, UNSPECIFIED (5) Thrombocytopenia Current Visit: Yes Status: Acute
[2017-10-09] MEDS: PROTONIX 40 MG IV IV SCH (10:15)
[2017-10-09] MEDS: PATIENT OWN MEDICATION PO SCH (10:15)
[2017-10-09] MEDS: Levofloxacin 500MG/100ML D5W 500 MG/100 ML BAG IV SCH (10:17)
[2017-10-09] MEDS: ROCEPHIN 1 Gm-D5w 50 ml Bag** 1 G/50 ML IVPB IV SCH (13:00)
[2017-10-09] MEDS: Phenergan 25 MG INJ IV PRN (15:28)
[2017-10-10 07:16] VITALS: BP 96/51; PULSE 59; O2SAT 97
[2017-10-10] MEDS: XANAX 1 MG PO SCH (07:52)
[2017-10-10] MEDS: ROCEPHIN 1 Gm-D5w 50 ml Bag** 1 G/50 ML IVPB IV SCH (09:09)
[2017-10-10] MEDS: SYNTHROID 50 MCG PO SCH (09:09)
[2017-10-10] MEDS: PATIENT OWN MEDICATION PO SCH (09:09)
[2017-10-10] MEDS: PROTONIX 40 MG IV IV SCH (09:09)
--- NOTE | 2017-10-10 09:31 | PCM.DS ---
Discharge Summary Date of Admission: 10/07/17 18:10 Date of Discharge: 10/10/2017 Admitting Physician: PAWEL JAMIL Consults: Consults on Case 10/07/17 17:19 Consult Surgery ROUTINE Primary Care Provider: PAWEL JAMIL Allergies Allergies codeine Allergy (Mild, Verified 09/02/17 09:18) Rash MAKES SICK sumatriptan [From Imitrex] Allergy (Verified 09/02/17 09:18) sumatriptan succinate [From Imitrex] Allergy (Verified 09/02/17 09:18) morphine Adverse Reaction (Severe, Verified 09/02/17 09:18) Headache MIGRAINES hydrocodone bitartrate [From Vicodin] Adverse Reaction (Mild, Verified 09/02/17 09:18) Vomiting fentanyl Adverse Reaction (Verified 09/02/17 09:18) Hospital Summary - Hospital Course Hospital Course: She has history of colectomy with recurrent bowel obstruction or ileus in the past. She presented with abdominal pain and inability to have bm. She was placed npo refused a ng and began having bowel movements and resolution of the pain. She suffers from recurrent UTI and interstitial cystitis and is following with urology in [place]. She was started on levaquin in ED for a UTI and the culture returned with E. coli resistant to levaquin and sensitive to ceftriaxone on 10/09 she was changed to ceftriaxone and received a dose on 10/09 and 10/10. Her diet was advanced to regular on 10/09 and iv fluids were stopped. She was still having desaturation with sleeping. She tolerated po well and was ambulating without pain. She was feeling better. Overnight pulse ox was done for 8 hours showing oxygen <90% 63% of the time. this was done the night of 10/09 -10/10 and she is being set up with home oxygen to wear when sleeping and f/u as outpatient. - Vitals & Intake/Output Vital Signs: Vital Signs Temperature 98.0 F 10/10/17 07:15 Pulse Rate 59 L 10/10/17 07:15 Respiratory Rate 18 10/10/17 07:15 Blood Pressure 96/51 10/10/17 07:15 O2 Sat by Pulse Oximetry 97 10/10/17 07:15 Oxygen-Last Documented O2 Percentage 2 Liters = 28% Intake & Output: Intake & Output 10/07/17 10/08/17 10/09/17 10/10/17 11:59 11:59 11:59 11:59 Intake Total 939 3468 480 Output Total 1600 500 850 Balance -661 2968 -370 Weight 82.6 kg 82.6 kg - Lab Result Diagrams: 10/09/17 05:20 10/09/17 05:20 Micro Results-Entire Visit: Microbiology 10/07/17 20:07 Urine Culture - Final Urine, Void Escherichia Coli - Procedures and Test Procedures and Tests throughout Hospitalization: Therapy Orders & Screens 10/08/17 17:10 Oxygen NASAL CANNULA 2 lpm Comment: Diagnosis: Ileus Discharge Exam General Appearance: no apparent distress Neurologic Exam: alert, 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 Skin Exam: warm, dry Ears, Nose, Throat Exam: moist mucous membranes Neck Exam: non-tender, supple Respiratory Exam: normal breath sounds, lungs clear Cardiovascular Exam: regular rate/rhythm, normal heart sounds, normal peripheral pulses, No murmur Gastrointestinal/Abdomen Exam: soft, normal bowel sounds, No tenderness, No distention Extremity Exam: normal inspection, No calf tenderness Final Diagnosis/Problem List - Final Discharge Diagnosis/Problem (1) Ileus Current Visit: Yes Status: Acute Onset Date: ~10/07/17 (2) Interstitial cystitis Current Visit: Yes Status: Acute (3) Chronic urinary tract infection Current Visit: Yes Status: Chronic (4) Anemia Current Visit: Yes Status: Acute (5) Thrombocytopenia Current Visit: Yes Status: Acute (6) Nocturnal hypoxemia Current Visit: Yes Status: Acute - Discharge Discharge Date: 10/10/17 Disposition: Home, Self-Care Condition: Fair Prescriptions: New Cefdinir [Omnicef] 300 mg PO BID #20 capsule Continue Rizatriptan Benzoate [Maxalt] 10 mg PO BIDPRN PRN PRN Reason: Pain Alprazolam 1 mg [Xanax 1 mg] 2 mg PO BID Polyethylene Glycol 3350 17 gm [Miralax Powder 17GM PACKET] 34 gm PO TID PRN PRN Reason: Constipation Sennosides/Docusate Sodium [Senokot-S Tablet] 2 tab PO BID Promethazine HCl 25 mg [Phenergan 25 mg] 25 mg PO Q4HPRN PRN PRN Reason: Nausea Cetirizine HCl/Pseudoephedrine [Zyrtec-D Tablet] 0.5 each PO DAILY Omeprazole 40 mg PO DAILY Aspirin 81 mg PO DAILY Oxycodone HCl 10 mg PO Q12H PRN PRN PRN Reason: Pain Levothyroxine Sodium 50 Mcg [Synthroid 50 Mcg] 50 mcg PO DAILY Phenazopyridine HCl 200 mg [Pyridium 200 mg] 200 mg PO BIDPRN PRN PRN Reason: UTI Linaclotide [Linzess] 290 mcg PO DAILY Follow up with: PAWEL JAMIL [Primary Care Provider] - 1 Week
[2017-10-10] MEDS ORDERED: Miralax Powder 17GM PACKET PO ONE (10:45)
[2017-10-11] MEDS ORDERED: Miralax Powder 17GM PACKET PO ONE (10:15)
== END 2017-10-10 10:55 | disposition home or self-care (01) | DRG 389 ==
LOC: ED 11:59 → MED SURG 18:10
PROVIDERS: ADMIT Family Medicine; ATTEND Family Medicine
DX: K56.7 Ileus, unspecified (principal); N39.0 Urinary tract infection, site not specified; N30.10 Interstitial cystitis (chronic) without hematuria; D64.9 Anemia, unspecified; D69.6 Thrombocytopenia, unspecified; R09.02 Hypoxemia; Z90.49 Acquired absence of other specified parts of digestive tract; Z87.440 Personal history of urinary (tract) infections; R10.84 Generalized abdominal pain; E03.9 Hypothyroidism, unspecified; M19.90 Unspecified osteoarthritis, unspecified site; K21.9 Gastro-esophageal reflux disease without esophagitis; R19.7 Diarrhea, unspecified; N28.9 Disorder of kidney and ureter, unspecified; R51 Headache; F41.9 Anxiety disorder, unspecified
CPT/HCPCS: 36000; 36415; 74177; 80048; 80053; 81000; 82150; 83605; 83690; 85025; 87077; 87086; 87186; 87493; 94760; 94762; 96360; 96361; 96374; 96375; 96376; 99285; J0696; J1642; J1650; J1885; J1956; J2270; J2405; J2550; A9270-GY

== ENCOUNTER 2017-12-13 12:52 | Emergency (ER) | payer MEDICARE ==
[2017-12-13] MEDS ORDERED: Sodium Chloride 0.9% 1000 ML 1,000 ML IV STA (13:01)
[2017-12-13] MEDS ORDERED: solu-MEDROL 125 MG IV ONE (13:07)
--- NOTE | 2017-12-13 13:07 | ERPHSYRPT ---
- History of Present Illness Source: patient Patient Subjective Stated Complaint: pt here for sob today, pt had a bronch done last week,and dx with bronchitis, she wears o2 at night, Triage Nursing Assessment: pt anxious, hyperventilating, pt given emtional reassurance, no cough, chest clear, abd soft Hx Tetanus, Diphtheria Vaccination/Date Given: Yes Hx Influenza Vaccination/Date Given: No Hx Pneumococcal Vaccination/Date Given: Yes Immunizations Up to Date: Yes <DEANNA ROMERO - Last Filed: 12/13/17 13:04> <DENIA BROWN - Last Filed: 12/13/17 19:39> - History of Present Illness Time Seen by Provider: 12/13/17 13:04 Physician History: mild to mod shortness of breath for 2 days, hc copd, no fever, no pain, speech fluent, no injury (DEANNA ROMERO) Allergies/Adverse Reactions: codeine Allergy (Mild, Verified 12/13/17 13:03) Rash MAKES SICK sumatriptan [From Imitrex] Allergy (Verified 12/13/17 13:03) sumatriptan succinate [From Imitrex] Allergy (Verified 12/13/17 13:03) morphine Adverse Reaction (Severe, Verified 12/13/17 13:03) Headache MIGRAINES hydrocodone bitartrate [From Vicodin] Adverse Reaction (Mild, Verified 12/13/17 13:03) Vomiting fentanyl Adverse Reaction (Verified 12/13/17 13:03) Home Medications: Alprazolam 1 mg [Xanax 1 mg] 2 mg PO BID 02/17/13 [History] Rizatriptan Benzoate [Maxalt] 10 mg PO BIDPRN PRN 02/17/13 [History] Polyethylene Glycol 3350 17 gm [Miralax Powder 17GM PACKET] 34 gm PO TID PRN 11/15/14 [History] Sennosides/Docusate Sodium [Senokot-S Tablet] 2 tab PO BID 04/25/15 [History] Promethazine HCl 25 mg [Phenergan 25 mg] 25 mg PO Q4HPRN PRN 05/11/15 [ History] Cetirizine HCl/Pseudoephedrine [Zyrtec-D Tablet] 0.5 each PO DAILY 02/03/16 [ History] Aspirin 81 mg PO DAILY 09/11/16 [History] Omeprazole 40 mg PO DAILY 09/11/16 [History] Oxycodone HCl 10 mg PO Q12H PRN PRN 12/16/16 [History] Levothyroxine Sodium 50 Mcg [Synthroid 50 Mcg] 50 mcg PO DAILY 07/06/17 [ History] Linaclotide [Linzess] 290 mcg PO DAILY 10/07/17 [History] Phenazopyridine HCl 200 mg [Pyridium 200 mg] 200 mg PO BIDPRN PRN [History] Omeprazole 40 mg DAILY 12/13/17 [History] Prednisone 10 mg [Deltasone 10 mg] 10 mg DAILY 12/13/17 [History] - Review of Systems Constitutional: Fatigue, No Fever Eyes: No Vision Changes Ears, Nose, & Throat: No Mouth Pain Respiratory: Cough, Dyspnea Cardiac: No Chest Pain Abdominal/Gastrointestinal: No Abdominal Pain, No Vomiting Genitourinary Symptoms: No Dysuria Musculoskeletal: No Neck Pain Skin: No Rash Neurological: No Dizziness <DEANNA ROMERO - Last Filed: 12/13/17 13:04> - Past Medical History Pertinent Past Medical History: Yes Neurological History: Migraines ENT History: Cataracts, Other Cardiac History: No Pertinent History Respiratory History: Other Endocrine Medical History: Hypothyroidism, Other Musculoskeletal History: Arthritis, Degenerative Disk Disease, Osteoarthritis, Other GI Medical History: GERD, Irritable Bowel, Ulcer, Other History: Other Psycho-Social History: Anxiety Female Reproductive Disorders: Other Other Medical History: Recurrent UTI,urine kidney/bladder problems recurrent. 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 Total colectomy. FEEDING TUBE FOR 4 YEARS, stretches of bladder and urethra, bowel obstructions x2, lithotripsy. - Social History Smoking Status: Never smoker Exposure to second hand smoke: No Alcohol Use: None Drug Use: none Patient Lives Alone: Yes Significant Family History: no pertinent family hx - Female History Hx Last Menstrual Period: post Hx Now: No <DEANNA ROMERO - Last Filed: 12/13/17 13:04> - Physical Exam General Appearance: no apparent distress Eye Exam: PERRL/EOMI Ears, Nose, Throat Exam: moist mucous membranes Neck Exam: supple Respiratory Exam: chest tenderness, wheezing Cardiovascular Exam: regular rate/rhythm Gastrointestinal/Abdomen Exam: soft, No tenderness Back Exam: No CVA tenderness Extremity Exam: No pedal edema Neurologic Exam: alert, 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, cooperative Skin Exam: warm, dry SpO2 Interpretation: normal SpO2: 99 Oxygen Delivery: Room Air <DEANNA ROMERO - Last Filed: 12/13/17 13:04> - Nursing Vital Signs Nursing Vital Signs: Initial Vital Signs Temperature 96.9 F 12/13/17 12:56 Respiratory Rate 34 H 12/13/17 12:56 Blood Pressure 103/72 12/13/17 12:56 O2 Sat by Pulse Oximetry 99 12/13/17 12:56 Pain Scale Pain Intensity 7 Ordered Tests: Active Orders 24 hr Category Date Time Status Control Panel Assembler STAT Care 12/13/17 13:02 Active EKG-ER Only STAT Care 12/13/17 13:01 Active IV Insertion STAT Care 12/13/17 13:01 Active Oxygen-ED Only NASAL CANNULA 2 lpm Care 12/13/17 13:01 Active CHEST 1 VIEW (PORTABLE) Stat Exams 12/13/17 13:02 Completed PULMONARY PERF VENTILATION [NUCMED] Stat Exams 12/13/17 14:52 Taken BLOOD CULTURE Stat Lab 12/13/17 13:40 Received CBC W DIFF Stat Lab 12/13/17 13:01 Completed CMP Stat Lab 12/13/17 13:15 Completed D-DIMER QUANTITATION Stat Lab 12/13/17 13:15 Completed Lactic Acid Stat Lab 12/13/17 13:25 Completed Manual Differential NC Stat Lab 12/13/17 13:01 Completed NT PRO BNP Stat Lab 12/13/17 13:15 Completed PROTIME WITH INR Stat Lab 12/13/17 13:15 Completed TROPONIN Q3H Lab 12/13/17 13:15 Completed TROPONIN Q3H Lab 12/13/17 16:15 Completed TROPONIN Q3H Lab 12/13/17 19:15 Ordered TROPONIN Q3H Lab 12/13/17 22:15 Ordered TROPONIN Q3H Lab 12/14/17 01:15 Ordered Medication Summary Discontinued Medications Generic Name Dose Route Start Last Admin Trade Name Elton PRN Reason Stop Dose Admin Sodium Chloride 1,000 mls @ 999 mls/hr 12/13/17 13:01 12/13/17 15:11 Sodium Chloride 0.9% 1000 Ml IV 12/13/17 14:01 Infused .Q1H1M STA Infusion Sodium Chloride Confirm 12/13/17 13:11 Sodium Chloride 0.9% 1000 Ml Administered 12/13/17 13:12 Dose 1,000 mls @ ud .ROUTE .STK-MED ONE Methylprednisolone Sodium Succinate 125 mg 12/13/17 13:07 12/13/17 13:12 Solu-Medrol 125 Mg IV 12/13/17 13:08 125 mg STAT ONE Administration Methylprednisolone Sodium Succinate Confirm 12/13/17 13:11 Solu-Medrol 125 Mg Administered 12/13/17 13:12 Dose 125 mg .ROUTE .STK-MED ONE Lab/Rad Data: Laboratory Result Diagrams 12/13/17 13:01 12/13/17 13:15 Laboratory Results 12/13/17 12/13/17 12/13/17 Range/Units 16:15 13:25 13:15 WBC (4.0-10.5) K/mm3 RBC (4.1-5.4) M/mm3 Hgb (12.0-16.0) gm/dl Hct (35-47) % MCV (78-100) fl MCH (26-32) pg MCHC (32-36) g/dl RDW (11.5-14.0) % Plt Count (150-450) K/mm3 MPV (6-9.5) fl Segmented Neutrophils (36.0-66.0) % Lymphocytes (Manual) (24-44) % Monocytes (Manual) (0.0-12.0) % Toxic Granulation Platelet Estimate (NORMAL) RBC Morphology PT (9.95-12.35) SECONDS INR (0.8-3.0) D-Dimer (215-500) ng/mL Sodium (137-145) mmol/L Potassium (3.5-5.1) mmol/L Chloride (98-107) mmol/L Carbon Dioxide (22-30) mmol/L Anion Gap (5-15) MEQ/L BUN (7-17) mg/dL Creatinine (0.52-1.04) mg/dL Estimated GFR ML/MIN Glucose (74-106) mg/dL Lactic Acid 1.7 (0.4-2.0) Calcium (8.4-10.2) mg/dL Total Bilirubin (0.2-1.3) mg/dL AST (14-36) U/L ALT (0-35) U/L Alkaline Phosphatase (38-126) U/L Troponin I < 0.012 < 0.012 (0.000-0.034) ng/mL NT-Pro-B Natriuret Pep (0-900) pg/mL Serum Total Protein (6.3-8.2) g/dL Albumin (3.5-5.0) g/dL 12/13/17 12/13/17 12/13/17 Range/Units 13:15 13:15 13:01 WBC 6.2 (4.0-10.5) K/mm3 RBC 4.50 (4.1-5.4) M/mm3 Hgb 14.0 (12.0-16.0) gm/dl Hct 41.5 (35-47) % MCV 92.2 (78-100) fl MCH 31.1 (26-32) pg MCHC 33.7 (32-36) g/dl RDW 12.7 (11.5-14.0) % Plt Count 203 (150-450) K/mm3 MPV 10.5 H (6-9.5) fl Segmented Neutrophils 73 H (36.0-66.0) % Lymphocytes (Manual) 21 L (24-44) % Monocytes (Manual) 6 (0.0-12.0) % Toxic Granulation 1+ Platelet Estimate NORMAL (NORMAL) RBC Morphology NORMAL PT 12.7 H (9.95-12.35) SECONDS INR 1.09 (0.8-3.0) D-Dimer 1305 H* (215-500) ng/mL Sodium 137 (137-145) mmol/L Potassium 3.6 (3.5-5.1) mmol/L Chloride 108 H (98-107) mmol/L Carbon Dioxide 16 L* (22-30) mmol/L Anion Gap 16.1 H (5-15) MEQ/L BUN 27 H (7-17) mg/dL Creatinine 1.23 H (0.52-1.04) mg/dL Estimated GFR 47.0 ML/MIN Glucose 127 H (74-106) mg/dL Lactic Acid (0.4-2.0) Calcium 9.1 (8.4-10.2) mg/dL Total Bilirubin 0.70 (0.2-1.3) mg/dL AST 18 (14-36) U/L ALT 17 (0-35) U/L Alkaline Phosphatase 111 (38-126) U/L Troponin I (0.000-0.034) ng/mL NT-Pro-B Natriuret Pep 33.2 (0-900) pg/mL Serum Total Protein 7.7 (6.3-8.2) g/dL Albumin 4.4 (3.5-5.0) g/dL <DEANNA ROMERO - Last Filed: 12/13/17 13:04> - Progress Progress: improved <DENIA BROWN - Last Filed: 12/13/17 19:39> - Progress Progress Note: 12/13/17 19:27 This is a 62-year-old white female with history of migraines, cataracts, hypothyroidism, tinnitus, degenerative disc disease, osteoarthritis, GERD, irritable bowel, ulcers, anxiety, recurrent UTI, chronic bladder and kidney infections She apparently had a recent bronchoscopy that she arrives with complaint of shortness of breath for 2 days. She was initially seen by Dr. Romero patient had a rather extensive workup which included chest x-ray, EKG, chemistry, CBC, VQ scan Patient's labs were essentially normal patient did have a bicarbonate of 16 on her chemistry chemistry 137 potassium 3.6 chloride 108 bicarbonate 16 BUN 27 creatinine 1.23 glucose 127 Patient's CBC White cell 6.2 hemoglobin 14.0 hematocrit 41.5 platelets 203 D-dimer was elevated at 1305. Troponin less than 0.0122. BNP was 37 Chest x-ray remarkable for mid right lung fibrosis/scarring calcified nodules and right Port-A-Cath remaining heart lungs and bony thorax with normal Patient VQ scan was normal Patient's EKG sinus rhythm. patient's EKG sinus rhythm 96 bpm left axis deviation no acute ST or T wave changes. 12/13/17 19:33 Physical examination on this patient Vitals temperature 96.9 pulse 91 respiration 18 blood pressure 116/72 sats were 98% Currently the patient does not appear to be in acute distress she does have occasional cough She apparently was hyperventilating on arrival. Head atraumatic normocephalic. Eyes PERRLA EOMI fundi are unremarkable. Ears TMs are bob and intact bilaterally. Nose is clear. Throat is clear. Neck supple full range of motion. Lungs are clear. Heart regular rate and rhythm without murmur. Abdomen soft nontender nondistended positive bowel sounds. Extremities full range of motion pulse equal symmetrical 2 over 4. Neuro cranial nerves II through XII are intact DTRs symmetrical 2 over 4 Hooper Coma Scale is 15. Impression bronchitis. Cough. Plan patient had received 1 L of normal saline as well as 125 mg of Solu-Medrol in the emergency room shortly after arrival she does not appear to be in acute distress. I contacted Dr. Escalante he does not feel patient needs criteria for admission patient does not appear to be in acute distress at this time. He requested that the patient continue taking her current medications and contact his office in the morning. Will go ahead and discharge patient. impression on this patient is shortness of breath, and chronic bronchitis ( DENIA BROWN) <DEANNA ROMERO - Last Filed: 12/13/17 13:04> - Departure Time of Disposition: 19:37 Departure Disposition: Home Critical Care Time: No <DENIA BROWN - Last Filed: 12/13/17 19:39> - Departure Clinical Impression: Shortness of breath Chronic bronchitis Qualifiers: Chronic bronchitis type: unspecified Qualified Code(s): J42 - Unspecified chronic bronchitis Condition: Fair Referrals: PAWEL JAMIL [Primary Care Provider] - Additional Instructions: Return home. Continue current medications and treatment as prescribed by Dr. LIAM Escalante and your family doctor. Follow-up with Dr. Escalante tomorrow call in the morning. Return for acute distress or for severe symptoms.
[2017-12-13] MEDS ORDERED: Sodium Chloride 0.9% 1000 ML 1,000 ML ONE (13:11)
[2017-12-13] MEDS ORDERED: solu-MEDROL 125 MG ONE (13:11)
--- NOTE | 2017-12-13 13:30 | XRAY ---
Indication: Short of breath. Comparison: August 04, 2017. Portable chest unchanged again demonstrating minimal right lung fibrosis/scarring, right hilar calcified nodes, and right Port-A-Cath. Remaining heart, lungs, and bony thorax normal.
[2017-12-13 13:32] LABS: Hematocrit 41.5 % (35-47); Mean Cell Volume 92.2 fl (78-100); Mean Corpuscular Hemoglobin 31.1 pg (26-32); Mean Corpuscular Hgb Concent. 33.7 g/dl (32-36); Mean Platelet Volume 10.5 fl (6-9.5); Platelet Count 203 K/mm3 (150-450); Red Cell Distribution Width 12.7 % (11.5-14.0); White Blood Count 6.2 K/mm3 (4.0-10.5)
[2017-12-13 14:04] LABS: ALBUMIN 4.4 g/dL (3.5-5.0); ANION GAP 16.1 MEQ/L (5-15); BILIRUBIN,TOTAL 0.7 mg/dL (0.2-1.3); Calcium 9.1 mg/dL (8.4-10.2); Creatinine 1 1.23 mg/dL (0.52-1.04); NT PRO BNP 33.2 pg/mL (0-900); Potassium 3.6 mmol/L (3.5-5.1); Total Protein 7.7 g/dL (6.3-8.2)
[2017-12-13 14:20] LABS: Lymphocytes 21 % (24-44); Monocyte 6 % (0.0-12.0); Neutrophils 73 % (36.0-66.0); Total Cells Counted 100
[2017-12-13 14:21] LABS: Platelet Estimate NORMAL (NORMAL); Toxic Granulation 1+
[2017-12-13 14:39] LABS: INR 1.09 (0.8-3.0)
[2017-12-13 19:51] VITALS: BP 105/70; PULSE 100; O2SAT 96
--- NOTE | 2017-12-14 08:34 | XRAY ---
Indication: Chest pain and short of breath. Chronic bronchitis. Elevated d-dimer. Comparison: None Patient received 5.2 mCi technetium 99 MAA for the perfusion portion of exam. Patient inhaled 36.5 mCi aerosolized technetium 99 DTPA for the ventilation portion. Multiple planar images obtained. Perfusion images demonstrates homogeneous radiopharmaceutical activity without segmental/subsegmental defects. Ventilation images also demonstrates homogeneous radiopharmaceutical activity. Impression: Normal nuclear medicine ventilation/perfusion scan. Comment: Preliminary report was given following the exam.
== END 2017-12-13 19:51 | disposition home or self-care (01) ==
LOC: ED 12:52
DX: J42 Unspecified chronic bronchitis (principal); R06.02 Shortness of breath; Z79.899 Other long term (current) drug therapy
CPT/HCPCS: 36000; 36415; 71045; 78582; 80053; 83605; 83880; 84484; 85025; 85379; 85610; 87040; 93005; 93041; 96360; 96374; 99285; A9540; A9567; J1642; J2930

== ENCOUNTER 2017-12-26 05:16 | Emergency (ER) | payer MEDICARE ==
[2017-12-26] MEDS ORDERED: Sodium Chloride 0.9% 1000 ML 1,000 ML IV STA (05:38)
[2017-12-26] MEDS ORDERED: Phenergan 25 MG INJ IV ONE (05:38)
[2017-12-26] MEDS ORDERED: TORAdol 30 mg Injection IV ONE (05:38)
--- NOTE | 2017-12-26 05:44 | ERPHSYRPT ---
- History of Present Illness Source: patient Exam Limitations: no limitations Patient Subjective Stated Complaint: pt states she has had a migraine since 1000 yesterday and has been having abd pain since yesterday. states she thinks she has a bowel blockage Triage Nursing Assessment: pt alert and oriented, asnwers questions approp. pt arrive per ambulance, transfer to stretcher per self. respirations nonlabored. pupils equal and reactive, bilat upper and lower ext strength equal and wnl. abd nontender to light palpation. bowel sounds present, hypo Timing/Duration: yesterday Severity: moderate Modifying Factors: Worsens With: immobilization, medication, movement, rest, acetaminophen, ibuprofen Associated Symptoms: nausea, vomiting, abdominal pain, malaise, No shortness of breath, No heartburn, No diaphoresis, No cough, No chills, No chest pain, No fever, No headaches, No loss of appetite, No rash, No syncope, No seizure, No weakness Hx Tetanus, Diphtheria Vaccination/Date Given: Yes Hx Influenza Vaccination/Date Given: Yes Hx Pneumococcal Vaccination/Date Given: Yes Immunizations Up to Date: Yes <DENIA BROWN - Last Filed: 12/26/17 07:08> <EZEQUIEL SPRING - Last Filed: 12/26/17 09:37> - History of Present Illness Time Seen by Provider: 12/26/17 05:37 Physician History: 62-year-old white female with history of migraines, cataracts, hypothyroidism, arthritis, degenerative disc disease, ask urethritis, GERD, irritable bowel, ulcers, anxiety, recurrent urinary tract infection, Arrives with complaint of a frontal headache photophobia symptoms since yesterday she states she also is unable to have a bowel movement since yesterday and is having vomiting she feels like she is having a bowel obstruction. She has no fevers. Past medical history includes migraines, cataracts, hypothyroidism, arthritis, degenerative disc disease, osteoarthritis, GERD, irritable bowel, ulcers, anxiety, recurrent UTI, Past surgical history includes bowel surgery, cholecystectomy, colon resection, hernia repair, hysterectomy, colonoscopy, EGD, total colectomy, feeding tube, lithotripsy, Stretching of the bladder and urethra (DENIA BROWN) Allergies/Adverse Reactions: codeine Allergy (Mild, Verified 12/26/17 05:34) Rash MAKES SICK sumatriptan [From Imitrex] Allergy (Verified 12/26/17 05:34) sumatriptan succinate [From Imitrex] Allergy (Verified 12/26/17 05:34) morphine Adverse Reaction (Severe, Verified 12/26/17 05:34) Headache MIGRAINES hydrocodone bitartrate [From Vicodin] Adverse Reaction (Mild, Verified 12/26/17 05:34) Vomiting fentanyl Adverse Reaction (Verified 12/26/17 05:34) Home Medications: Alprazolam 1 mg [Xanax 1 mg] 2 mg PO BID 02/17/13 [History] Rizatriptan Benzoate [Maxalt] 10 mg PO BIDPRN PRN 02/17/13 [History] Polyethylene Glycol 3350 17 gm [Miralax Powder 17GM PACKET] 34 gm PO TID PRN 11/15/14 [History] Sennosides/Docusate Sodium [Senokot-S Tablet] 2 tab PO BID 04/25/15 [History] Promethazine HCl 25 mg [Phenergan 25 mg] 25 mg PO Q4HPRN PRN 05/11/15 [ History] Cetirizine HCl/Pseudoephedrine [Zyrtec-D Tablet] 0.5 each PO DAILY 02/03/16 [ History] Aspirin 81 mg PO DAILY 09/11/16 [History] Omeprazole 40 mg PO DAILY 09/11/16 [History] Oxycodone HCl 10 mg PO Q12H PRN PRN 12/16/16 [History] Levothyroxine Sodium 50 Mcg [Synthroid 50 Mcg] 50 mcg PO DAILY 07/06/17 [ History] Linaclotide [Linzess] 290 mcg PO DAILY 10/07/17 [History] Phenazopyridine HCl 200 mg [Pyridium 200 mg] 200 mg PO BIDPRN PRN [History] Omeprazole 40 mg DAILY 12/13/17 [History] Prednisone 10 mg [Deltasone 10 mg] 10 mg DAILY 12/13/17 [History] - Review of Systems Constitutional: No Fever, No Chills Eyes: No Symptoms, Photophobia, No Eye Pain, No Eye Redness Ears, Nose, & Throat: No Symptoms Respiratory: No Cough, No Dyspnea Cardiac: No Chest Pain, No Edema, No Syncope Abdominal/Gastrointestinal: Abdominal Pain, Nausea, Vomiting, Constipation, No Diarrhea, No Hematemesis, No Hematochezia, No Melena, No Dysphagia, No Appetite Changes Genitourinary Symptoms: No Dysuria Musculoskeletal: No Back Pain, No Neck Pain Skin: No Rash Neurological: No Dizziness, No Focal Weakness, No Sensory Changes Psychological: No Symptoms Endocrine: No Symptoms All Other Systems: Reviewed and Negative <DENIA BROWN - Last Filed: 12/26/17 07:08> - Past Medical History Pertinent Past Medical History: Yes Neurological History: Migraines ENT History: Cataracts, Other Cardiac History: No Pertinent History Respiratory History: Bronchitis, Other Endocrine Medical History: Hypothyroidism, Other Musculoskeletal History: Arthritis, Degenerative Disk Disease, Osteoarthritis, Other GI Medical History: GERD, Irritable Bowel, Ulcer, Other History: Other Psycho-Social History: Anxiety Female Reproductive Disorders: Other Other Medical History: Recurrent UTI,urine kidney/bladder problems recurrent. 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 Total colectomy. FEEDING TUBE FOR 4 YEARS, stretches of bladder and urethra, bowel obstructions x2, lithotripsy. bronch on 1320 - Social History Smoking Status: Never smoker Exposure to second hand smoke: No Alcohol Use: None Drug Use: none Patient Lives Alone: Yes Significant Family History: no pertinent family hx <DENIA BROWN - Last Filed: 12/26/17 07:08> - Physical Exam General Appearance: moderate distress Eye Exam: PERRL/EOMI, eyes nml inspection, other (fundi are unremarkable) Ears, Nose, Throat Exam: normal ENT inspection, TMs normal, pharynx normal, moist mucous membranes Neck Exam: normal inspection, non-tender, supple, full range of motion Respiratory Exam: normal breath sounds, lungs clear, No respiratory distress Cardiovascular Exam: regular rate/rhythm, normal heart sounds, normal peripheral pulses Gastrointestinal/Abdomen Exam: soft, normal bowel sounds, distention (mild distention), No pulsatile mass, No rebound Back Exam: normal inspection, normal range of motion, No CVA tenderness, No vertebral tenderness Extremity Exam: normal inspection, normal range of motion, pelvis stable Neurologic Exam: alert, 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, cooperative, statistical modeler II-XII nml as tested, normal mood/affect, nml cerebellar function, nml station & gait, sensation nml, No motor deficits Skin Exam: normal color, warm, dry, No rash SpO2 Interpretation: normal (97%) SpO2: 97 Oxygen Delivery: Room Air <DENIA BROWN - Last Filed: 12/26/17 07:08> - Nursing Vital Signs Nursing Vital Signs: Initial Vital Signs Temperature 99.0 F 12/26/17 05:22 Pulse Rate 70 12/26/17 05:22 Respiratory Rate 18 12/26/17 05:22 Blood Pressure 111/73 12/26/17 05:22 O2 Sat by Pulse Oximetry 97 12/26/17 05:22 Pain Scale Pain Intensity 7 - Course Nursing assessment & vital signs reviewed: Yes - Radiology Exams Abdomen X-ray Interpretation: Interpreted by me (3 view abdominal series: cxr no acute disease process, abdomen: air fluid levels ) <DENIA BROWN - Last Filed: 12/26/17 07:08> - CT Exams Abdomen/Pelvis CT Interpretation: Tele-radiologist Report (FLUID FILLED AND DILATED SEGMENTS OF SMALL BOWEL WITH A ABRUPT TRANSITION POINT IN THE RIGHT SIDE OF THE PELVIS, THIS MOST LIKELY BOWEL OBSTRUCTION, AN UNDELYING CAUSE IS NOT EVIDENT) <EZEQUIEL SPRING - Last Filed: 12/26/17 09:37> Ordered Tests: Active Orders 24 hr Category Date Time Status IV Insertion STAT Care 12/26/17 05:38 Active NG to Suction (Insertion) ROUTINE Care 12/26/17 07:22 Active ABDOMEN AND PELVIS W/0 CONTRAS [CT] Stat Exams 12/26/17 06:13 Taken OBSTR/ACUTE ABDOMEN SERIES Stat Exams 12/26/17 05:39 Taken AMYLASE Stat Lab 12/26/17 07:00 Completed CBC W DIFF Stat Lab 12/26/17 07:00 Completed CMP Stat Lab 12/26/17 07:00 Completed LIPASE Stat Lab 12/26/17 07:00 Completed Medication Summary Discontinued Medications Generic Name Dose Route Start Last Admin Trade Name Freq PRN Reason Stop Dose Admin Fentanyl Citrate 100 mcg 12/26/17 07:19 12/26/17 08:58 Sublimaze 100 Mcg/2 Ml IV 12/26/17 07:20 Not Given STAT ONE Sodium Chloride 1,000 mls @ 999 mls/hr 12/26/17 05:38 12/26/17 06:43 Sodium Chloride 0.9% 1000 Ml IV 12/26/17 06:38 999 mls/hr .Q1H1M STA Administration Sodium Chloride Confirm 12/26/17 06:30 Sodium Chloride 0.9% 1000 Ml Administered 12/26/17 06:31 Dose 1,000 mls @ ud .ROUTE .STK-MED ONE Ketorolac Tromethamine 30 mg 12/26/17 05:38 12/26/17 06:48 Toradol 30 Mg Injection IV 12/26/17 05:39 30 mg STAT ONE Administration Ketorolac Tromethamine Confirm 12/26/17 06:30 Toradol 30 Mg Injection Administered 12/26/17 06:31 Dose 30 mg .ROUTE .STK-MED ONE Meperidine HCl 50 mg 12/26/17 07:22 12/26/17 07:46 Demerol 50 Mg IV 12/26/17 07:23 50 mg STAT ONE Administration Meperidine HCl Confirm 12/26/17 07:32 Demerol 50 Mg Administered 12/26/17 07:33 Dose 50 mg .ROUTE .STK-MED ONE Promethazine HCl 12.5 mg 12/26/17 05:38 12/26/17 06:42 Phenergan 25 Mg Inj IV 12/26/17 05:39 12.5 mg STAT ONE Administration Promethazine HCl Confirm 12/26/17 06:30 Phenergan 25 Mg Inj Administered 12/26/17 06:31 Dose 25 mg .ROUTE .STK-MED ONE Lab/Rad Data: Laboratory Result Diagrams 12/26/17 07:00 12/26/17 07:00 Laboratory Results 12/26/17 12/26/17 Range/Units 07:00 07:00 WBC 6.7 (4.0-10.5) K/mm3 RBC 4.41 (4.1-5.4) M/mm3 Hgb 13.8 (12.0-16.0) gm/dl Hct 41.4 (35-47) % MCV 93.9 (78-100) fl MCH 31.3 (26-32) pg MCHC 33.3 (32-36) g/dl RDW 12.7 (11.5-14.0) % Plt Count 145 L (150-450) K/mm3 MPV 10.4 H (6-9.5) fl Gran % 89.3 H (36.0-66.0) % Eos # (Auto) 0.01 (0-0.5) Absolute Lymphs (auto) 0.49 L (1.0-4.6) Absolute Monos (auto) 0.19 (0.0-1.3) Lymphocytes % 7.4 L (24.0-44.0) % Monocytes % 2.9 (0.0-12.0) % Eosinophils % 0.2 (0.00-5.0) % Basophils % 0.2 (0.0-0.4) % Absolute Granulocytes 5.96 (1.4-6.9) Basophils # 0.01 (0-0.4) Sodium 140 (137-145) mmol/L Potassium 4.4 (3.5-5.1) mmol/L Chloride 109 H (98-107) mmol/L Carbon Dioxide 21 L (22-30) mmol/L Anion Gap 14.9 (5-15) MEQ/L BUN 23 H (7-17) mg/dL Creatinine 1.08 H (0.52-1.04) mg/dL Estimated GFR 54.6 ML/MIN Glucose 132 H (74-106) mg/dL Calcium 9.6 (8.4-10.2) mg/dL Total Bilirubin 0.70 (0.2-1.3) mg/dL AST 24 (14-36) U/L ALT 16 (0-35) U/L Alkaline Phosphatase 103 (38-126) U/L Serum Total Protein 7.6 (6.3-8.2) g/dL Albumin 4.3 (3.5-5.0) g/dL Amylase 93 (30-110) U/L Lipase 118 (23-300) U/L - Progress Progress: improved <DENIA BROWN - Last Filed: 12/26/17 07:08> - Progress Discussed with : Other (DISCUSSED WITH DR BARDALES AT 0825 ACCEPTS TRANSFER TO [facility]) <EZEQUIEL SPRING - Last Filed: 12/26/17 09:37> - Progress Progress Note: 12/26/17 08:40 DEMEROL 50MG IV, NASAL GASTRIC TUBE INSERTION TO LOW INTERMITTENT SUCTION (EZEQUIEL SPRING) <DENIA BROWN - Last Filed: 12/26/17 07:08> - Departure Time of Disposition: 09:30 Departure Disposition: Transfer Critical Care Time: No <EZEQUIEL SPRING - Last Filed: 12/26/17 09:37> - Departure Clinical Impression: SMALL BOWEL OBSTRUCTION Condition: Stable Referrals: PAWEL JAMIL [Primary Care Provider] -
[2017-12-26] MEDS ORDERED: TORAdol 30 mg Injection ONE (06:30)
[2017-12-26] MEDS ORDERED: Sodium Chloride 0.9% 1000 ML 1,000 ML ONE (06:30)
[2017-12-26] MEDS ORDERED: Phenergan 25 MG INJ ONE (06:30)
[2017-12-26 07:04] LABS: BASOPHIL % 0.2 % (0.0-0.4); Basophil (Absolute #) 0.01 (0-0.4); Eosinophil % 0.2 % (0.00-5.0); Eosinophil (Absolute #) 0.01 (0-0.5); Granulocyte Absolute (ANC) 5.96 (1.4-6.9); Granulocytes % 89.3 % (36.0-66.0); Hematocrit 41.4 % (35-47); Hemoglobin 13.8 gm/dl (12.0-16.0); Lymphocyte (Absolute #) 0.49 (1.0-4.6); Lymphocytes % 7.4 % (24.0-44.0); Mean Cell Volume 93.9 fl (78-100); Mean Corpuscular Hemoglobin 31.3 pg (26-32); Mean Corpuscular Hgb Concent. 33.3 g/dl (32-36); Mean Platelet Volume 10.4 fl (6-9.5); Monocyte (Absolute #) 0.19 (0.0-1.3); Monocytes % 2.9 % (0.0-12.0); Platelet Count 145 K/mm3 (150-450); Red Blood Count 4.41 M/mm3 (4.1-5.4); Red Cell Distribution Width 12.7 % (11.5-14.0); White Blood Count 6.7 K/mm3 (4.0-10.5)
[2017-12-26 07:18] LABS: ALBUMIN 4.3 g/dL (3.5-5.0); ANION GAP 14.9 MEQ/L (5-15); BILIRUBIN,TOTAL 0.7 mg/dL (0.2-1.3); Calcium 9.6 mg/dL (8.4-10.2); Creatinine 1 1.08 mg/dL (0.52-1.04); Potassium 4.4 mmol/L (3.5-5.1); Total Protein 7.6 g/dL (6.3-8.2)
[2017-12-26] MEDS ORDERED: SUBLIMAZE 100 MCG/2 ML IV ONE (07:19)
[2017-12-26] MEDS ORDERED: DEMEROL 50 MG IV ONE (07:22)
[2017-12-26] MEDS ORDERED: DEMEROL 50 MG ONE (07:32)
[2017-12-26 08:05] VITALS: PULSE 85
[2017-12-26 08:40] VITALS: BP 94/61; O2SAT 94
[2017-12-26 10:26] LABS: Slide Review 1 YES
--- NOTE | 2017-12-26 10:52 | XRAY ---
Indication: Abdomen pain. History of bowel obstruction. Multiple contiguous axial images obtained through the abdomen and pelvis without contrast as ordered. Comparison: October 07, 2017. Lung bases again demonstrates lingular fibrosis/scarring and noncalcified micronodule. No infiltrate or effusion. Heart is not enlarged. Stable tiny distal paraesophageal calcified node. Again previous colectomy with intact anastomosis. There are increasing fluid distended small bowel loops up to 4 cm diameter with air-fluid leveling predominantly in the left abdomen. Transition point seen in the right pelvis concerning for small bowel obstruction. The more distal bowel loops appear decompressed. No free fluid/air. Stable cholecystectomy, hysterectomy, calcified splenic granulomas, left renal scarring, and tiny right renal cyst. Remaining liver, pancreas, spleen, adrenal glands, kidneys, ureters, bladder, and aorta appear unremarkable for noncontrast exam. Osseous structures intact again with mild lumbar degenerative spondylosis. Impression: 1. Abnormal fluid distended small bowel loops with air-fluid leveling favoring obstruction. Transition point in the right pelvis. 2. Stable left renal scarring, right renal cyst, colectomy, and evidence for old granulomatous disease. Comment: Preliminary interpretation was made by [facility]. No critical discrepancy. CTDI 19.54
--- NOTE | 2017-12-26 10:54 | XRAY ---
Indication: Abdomen pain and nausea. Comparison: Chest exam December 13, 2017. 2 views of the abdomen demonstrates abnormal left abdomen synchronous air-fluid leveling. No focal bowel dilatation or free air. Multiple bilateral pelvic phleboliths and suture material. Solid organs unremarkable. Osseous structures intact with mild L2-L3 degenerative disc disease and mild dextroscoliosis centered at L3. Single PA chest again demonstrates normal heart, lungs, and bony thorax again with right hilar calcified nodes and right Port-A-Cath. Impression: Abnormal left abdomen air-fluid leveling ileus versus distal small bowel obstruction. Stable nonacute one view chest with chronic features.
== END 2017-12-26 09:25 | disposition short-term general hospital (02) ==
LOC: ED 05:16
DX: K56.609 Unspecified intestinal obstruction, unspecified as to partial versus complete obstruction (principal); R51 Headache; Z79.899 Other long term (current) drug therapy; R11.2 Nausea with vomiting, unspecified; R53.81 Other malaise
CPT/HCPCS: 36000; 36415; 74022; 74176; 80053; 82150; 83690; 85025; 96360; 96374; 96375; 99285; J1885; J2175; J2550

== ENCOUNTER 2018-03-10 12:22 | Emergency (ER) | payer MEDICARE ==
--- NOTE | 2018-03-10 12:45 | ERPHSYRPT ---
- History of Present Illness Time Seen by Provider: 03/10/18 12:40 Historian: patient Exam Limitations: no limitations Physician History: 62 y/o white female with h/o total colectomy and ileorectal anastamosis presents with 3 day h/o constipation. pt has sig h/o constipation. she is on several otc and rx meds to help this. pt takes oxycodone for pain. pt states suppositories and enemas do not work for her and therefore did not use them. pt has had associated n/v and abd pain. Timing/Duration: day(s) (3) Activities at Onset: none Quality: cramping Abdominal Pain Onset Location: generalized abdomen Pain Radiation: no radiation Severity of Pain-Max: mild Severity of Pain-Current: mild Modifying Factors: Improves With: vomiting Associated Symptoms: nausea, vomiting Previous symptoms: same symptoms as today Allergies/Adverse Reactions: codeine Allergy (Mild, Verified 03/10/18 12:44) Rash MAKES SICK sumatriptan [From Imitrex] Allergy (Verified 03/10/18 12:44) sumatriptan succinate [From Imitrex] Allergy (Verified 03/10/18 12:44) morphine Adverse Reaction (Severe, Verified 03/10/18 12:44) Headache MIGRAINES hydrocodone bitartrate [From Vicodin] Adverse Reaction (Mild, Verified 03/10/18 12:44) Vomiting fentanyl Adverse Reaction (Verified 03/10/18 12:44) Home Medications: Alprazolam 1 mg [Xanax 1 mg] 2 mg PO BID 02/17/13 [History] Rizatriptan Benzoate [Maxalt] 10 mg PO BIDPRN PRN 02/17/13 [History] Polyethylene Glycol 3350 17 gm [Miralax Powder 17GM PACKET] 34 gm PO TID 03/01 [History] Sennosides/Docusate Sodium [Senokot-S Tablet] 2 tab PO BID 04/25/15 [History] Promethazine HCl 25 mg [Phenergan 25 mg] 25 mg PO Q4HPRN PRN 05/11/15 [ History] Cetirizine HCl/Pseudoephedrine [Zyrtec-D Tablet] 0.5 each PO DAILY 02/03/16 [ History] Aspirin 81 mg PO DAILY 09/11/16 [History] Oxycodone HCl 10 mg PO DAILY 12/16/16 [History] Levothyroxine Sodium 50 Mcg [Synthroid 50 Mcg] 50 mcg PO DAILY 07/06/17 [ History] Linaclotide [Linzess] 290 mcg PO DAILY 10/07/17 [History] Phenazopyridine HCl 200 mg [Pyridium 200 mg] 200 mg PO BIDPRN PRN [History] Omeprazole 40 mg DAILY 12/13/17 [History] Naloxegol Oxalate [Movantik] 25 mg PO DAILY 03/10/18 [History] Hx Tetanus, Diphtheria Vaccination/Date Given: Yes Hx Influenza Vaccination/Date Given: Yes Hx Pneumococcal Vaccination/Date Given: Yes - Review of Systems Constitutional: No Symptoms Eyes: No Symptoms Ears, Nose, & Throat: No Symptoms Respiratory: No Symptoms Cardiac: No Symptoms Abdominal/Gastrointestinal: Abdominal Pain, Nausea, Vomiting, Constipation, No Diarrhea Genitourinary Symptoms: No Symptoms Musculoskeletal: No Symptoms Skin: No Symptoms Neurological: No Symptoms Psychological: No Symptoms Endocrine: No Symptoms Hematologic/Lymphatic: No Symptoms Immunological/Allergic: No Symptoms All Other Systems: Reviewed and Negative - Past Medical History Pertinent Past Medical History: Yes Neurological History: Migraines ENT History: Cataracts, Other Cardiac History: No Pertinent History Respiratory History: Bronchitis, Other Endocrine Medical History: Hypothyroidism, Other Musculoskeletal History: Arthritis, Degenerative Disk Disease, Osteoarthritis, Other GI Medical History: GERD, Irritable Bowel, Ulcer, Other History: Other Psycho-Social History: Anxiety Female Reproductive Disorders: Other Other Medical History: Recurrent UTI,urine kidney/bladder problems recurrent. 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 Total colectomy. FEEDING TUBE FOR 4 YEARS, stretches of bladder and urethra, bowel obstructions x2, lithotripsy. bronch on 1320 - Social History Smoking Status: Never smoker Exposure to second hand smoke: No Alcohol Use: None Drug Use: none Patient Lives Alone: Yes Significant Family History: no pertinent family hx - Nursing Vital Signs Nursing Vital Signs: Initial Vital Signs Temperature 98.6 F 03/10/18 12:34 Pulse Rate 82 03/10/18 12:34 Respiratory Rate 16 03/10/18 12:34 Blood Pressure 100/68 03/10/18 12:34 O2 Sat by Pulse Oximetry 95 03/10/18 12:34 Pain Scale Pain Intensity 9 - Physical Exam General Appearance: mild distress, alert, anxiety Eye Exam: PERRL/EOMI, eyes nml inspection Ears, Nose, Throat Exam: normal ENT inspection, moist mucous membranes Neck Exam: normal inspection, non-tender, supple, full range of motion Respiratory Exam: normal breath sounds, lungs clear, airway intact, No chest tenderness, No respiratory distress, No accessory muscle use, No rhonchi, No wheezing, No stridor Cardiovascular Exam: regular rate/rhythm, normal heart sounds, normal peripheral pulses Gastrointestinal/Abdomen Exam: soft, normal bowel sounds, tenderness (mild generalized), No guarding, No rebound Pelvic Exam: not done Rectal Exam: not done Back Exam: normal inspection, normal range of motion, No CVA tenderness, No vertebral tenderness Extremity Exam: normal inspection, normal range of motion, pelvis stable Neurologic Exam: alert, 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, cooperative, 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 pt beared down and large amount of stool cleared out. - Course Nursing assessment & vital signs reviewed: Yes Ordered Tests: Active Orders 24 hr Category Date Time Status Clean Catch Urine Specimen STAT Care 03/10/18 14:04 Active IV Insertion STAT Care 03/10/18 13:15 Active ABDOMEN AND PELVIS W/0 CONTRAS [CT] Stat Exams 03/10/18 13:16 Completed AMYLASE Stat Lab 03/10/18 13:30 Completed CBC W DIFF Stat Lab 03/10/18 13:30 Completed CMP Stat Lab 03/10/18 13:30 Completed CULTURE,URINE Stat Lab 03/10/18 14:05 Received LIPASE Stat Lab 03/10/18 13:30 Completed Lactic Acid Stat Lab 03/10/18 13:32 Completed Manual Differential NC Stat Lab 03/10/18 13:30 Completed UA W/RFX UR CULTURE Stat Lab 03/10/18 14:05 Completed Medication Summary Discontinued Medications Generic Name Dose Route Start Last Admin Trade Name Elton PRN Reason Stop Dose Admin Sodium Chloride 1,000 mls @ 999 mls/hr 03/10/18 13:15 03/10/18 14:09 Sodium Chloride 0.9% 1000 Ml IV 03/10/18 14:15 999 mls/hr .Q1H1M STA Administration Sodium Chloride Confirm 03/10/18 14:07 Sodium Chloride 0.9% 1000 Ml Administered 03/10/18 14:08 Dose 1,000 mls @ ud .ROUTE .STK-MED ONE Sodium Chloride Confirm 03/10/18 14:13 Sodium Chloride 0.9% 1000 Ml Administered 03/10/18 14:14 Dose 1,000 mls @ ud .ROUTE .STK-MED ONE Lidocaine HCl Confirm 03/10/18 14:35 Xylocaine 2% Uro-Jet Administered 03/10/18 14:36 Dose 200 mg .ROUTE .STK-MED ONE Lidocaine HCl 200 mg 03/10/18 14:43 Xylocaine 2% Uro-Jet TOP 03/10/18 14:44 STAT ONE Ondansetron HCl 4 mg 03/10/18 13:15 03/10/18 14:10 Zofran 4 Mg/2 Ml Vial IV 03/10/18 13:16 4 mg STAT ONE Administration Ondansetron HCl Confirm 03/10/18 14:07 Zofran 4 Mg/2 Ml Vial Administered 03/10/18 14:08 Dose 4 mg .ROUTE .STK-MED ONE Ondansetron HCl Confirm 03/10/18 14:13 Zofran 4 Mg/2 Ml Vial Administered 03/10/18 14:14 Dose 4 mg .ROUTE .STK-MED ONE Lab/Rad Data: Laboratory Result Diagrams 03/10/18 13:30 03/10/18 13:30 Laboratory Results 03/10/18 03/10/18 03/10/18 Range/Units 14:05 13:32 13:30 WBC (4.0-10.5) K/mm3 RBC (4.1-5.4) M/mm3 Hgb (12.0-16.0) gm/dl Hct (35-47) % MCV (78-100) fl MCH (26-32) pg MCHC (32-36) g/dl RDW (11.5-14.0) % Plt Count (150-450) K/mm3 MPV (6-9.5) fl Sodium 140 (137-145) mmol/L Potassium 4.0 (3.5-5.1) mmol/L Chloride 104 (98-107) mmol/L Carbon Dioxide 26 (22-30) mmol/L Anion Gap 13.1 (5-15) MEQ/L BUN 25 H (7-17) mg/dL Creatinine 1.18 H (0.52-1.04) mg/dL Estimated GFR 49.3 ML/MIN Glucose 110 H (74-106) mg/dL Lactic Acid 1.8 (0.4-2.0) Calcium 9.8 (8.4-10.2) mg/dL Total Bilirubin 0.70 (0.2-1.3) mg/dL AST 16 (14-36) U/L ALT 16 (0-35) U/L Alkaline Phosphatase 83 (38-126) U/L Serum Total Protein 7.0 (6.3-8.2) g/dL Albumin 3.9 (3.5-5.0) g/dL Amylase 82 (30-110) U/L Lipase 126 (23-300) U/L Urine Color YELLOW (YELLOW) Urine Appearance SLIGHTLY CLOUDY (CLEAR) Urine pH 5.0 (5-6) Ur Specific [place] 1.018 (1.005-1.025) Urine Protein NEGATIVE (Negative) Urine Ketones NEGATIVE (NEGATIVE) Urine Blood SMALL (0-5) [place]/ul Urine Nitrite NEGATIVE (NEGATIVE) Urine Bilirubin NEGATIVE (NEGATIVE) Urine Urobilinogen NEGATIVE (0-1) mg/dL Ur Leukocyte Esterase MODERATE (NEGATIVE) Urine WBC (Auto) 11-15 (0-5) /HPF Urine RBC (Auto) 11-15 (0-2) /HPF U Hyaline Cast (Auto) 3-5 (0-2) /LPF U Epithel Cells (Auto) MODERATE (FEW) /HPF Urine Bacteria (Auto) FEW (NEGATIVE) /HPF Calcium Oxalate Crystal 3-5 (NEGATIVE) /HPF Urine Mucus (Auto) SLIGHT (NEGATIVE) /HPF Urine Culture Reflexed YES (NO) Urine Glucose NEGATIVE (NEGATIVE) mg/dL 03/10/18 Range/Units 13:30 WBC 4.6 (4.0-10.5) K/mm3 RBC 4.12 (4.1-5.4) M/mm3 Hgb 12.6 (12.0-16.0) gm/dl Hct 39.3 (35-47) % MCV 95.4 (78-100) fl MCH 30.6 (26-32) pg MCHC 32.1 (32-36) g/dl RDW 13.2 (11.5-14.0) % Plt Count 167 (150-450) K/mm3 MPV 10.0 H (6-9.5) fl Sodium (137-145) mmol/L Potassium (3.5-5.1) mmol/L Chloride (98-107) mmol/L Carbon Dioxide (22-30) mmol/L Anion Gap (5-15) MEQ/L BUN (7-17) mg/dL Creatinine (0.52-1.04) mg/dL Estimated GFR ML/MIN Glucose (74-106) mg/dL Lactic Acid (0.4-2.0) Calcium (8.4-10.2) mg/dL Total Bilirubin (0.2-1.3) mg/dL AST (14-36) U/L ALT (0-35) U/L Alkaline Phosphatase (38-126) U/L Serum Total Protein (6.3-8.2) g/dL Albumin (3.5-5.0) g/dL Amylase (30-110) U/L Lipase (23-300) U/L Urine Color (YELLOW) Urine Appearance (CLEAR) Urine pH (5-6) Ur Specific [place] (1.005-1.025) Urine Protein (Negative) Urine Ketones (NEGATIVE) Urine Blood (0-5) [place]/ul Urine Nitrite (NEGATIVE) Urine Bilirubin (NEGATIVE) Urine Urobilinogen (0-1) mg/dL Ur Leukocyte Esterase (NEGATIVE) Urine WBC (Auto) (0-5) /HPF Urine RBC (Auto) (0-2) /HPF U Hyaline Cast (Auto) (0-2) /LPF U Epithel Cells (Auto) (FEW) /HPF Urine Bacteria (Auto) (NEGATIVE) /HPF Calcium Oxalate Crystal (NEGATIVE) /HPF Urine Mucus (Auto) (NEGATIVE) /HPF Urine Culture Reflexed (NO) Urine Glucose (NEGATIVE) mg/dL - Progress Progress: improved Progress Note: 03/10/18 15:00 ct scan shows fecal impaction but no bowel obstruction. no other acute process. Counseled pt/family regarding: lab results, diagnosis, need for follow-up, rad results - Departure Time of Disposition: 15:01 Departure Disposition: Home Clinical Impression: Constipation Condition: Stable Critical Care Time: No Referrals: PAWEL JAMIL [Primary Care Provider] - Additional Instructions: drink plenty of fluids. take your medications as prescribed. follow up with your surgeon as needed. Prescriptions: Ondansetron HCl [Zofran] 4 mg PO TID PRN #10 tablet PRN Reason: Nausea/Vomiting
[2018-03-10] MEDS ORDERED: Zofran 4 MG/2 ML VIAL IV ONE (13:15)
[2018-03-10] MEDS ORDERED: Sodium Chloride 0.9% 1000 ML 1,000 ML IV STA (13:15)
[2018-03-10 13:33] LABS: Hematocrit 39.3 % (35-47); Hemoglobin 12.6 gm/dl (12.0-16.0); Mean Cell Volume 95.4 fl (78-100); Mean Corpuscular Hemoglobin 30.6 pg (26-32); Mean Corpuscular Hgb Concent. 32.1 g/dl (32-36); Platelet Count 167 K/mm3 (150-450); Red Blood Count 4.12 M/mm3 (4.1-5.4); Red Cell Distribution Width 13.2 % (11.5-14.0); White Blood Count 4.6 K/mm3 (4.0-10.5)
[2018-03-10 13:45] LABS: ALBUMIN 3.9 g/dL (3.5-5.0); ANION GAP 13.1 MEQ/L (5-15); BILIRUBIN,TOTAL 0.7 mg/dL (0.2-1.3); Calcium 9.8 mg/dL (8.4-10.2); Creatinine 1 1.18 mg/dL (0.52-1.04)
[2018-03-10] MEDS ORDERED: Zofran 4 MG/2 ML VIAL ONE ×2 (14:07→14:13)
[2018-03-10] MEDS ORDERED: Sodium Chloride 0.9% 1000 ML 1,000 ML ONE (14:07)
--- NOTE | 2018-03-10 14:09 | XRAY ---
Indication: Abdominal distention, pain, nausea, vomiting, and constipation. Multiple contiguous axial images obtained through the abdomen and pelvis without contrast as ordered. Comparison: December 26, 2017. Lung bases again demonstrates minimal bibasilar fibrosis/scarring. Stable partially visualized left lower lobe noncalcified micronodule presumed granulomatous. No infiltrate or effusion. Heart is not enlarged. Stable distal paraesophageal calcified node. Noncontrasted stomach and bowel loops appear nonobstructed. Again colectomy with intact sigmoid anastomosis. New moderate rectal fecal impaction. No free fluid/air. Stable cholecystectomy, hysterectomy, calcified splenic granuloma, left renal scarring, and tiny right renal cyst. Remaining liver, pancreas, spleen, adrenal glands, kidneys, ureters, bladder, and aorta appear unremarkable for noncontrast exam. Osseous structures intact again with mild degenerative changes throughout the spine. Impression: 1. New rectal fecal impaction. 2. Stable left renal scarring, right renal cyst, colectomy, and evidence for old granulomatous disease. 3. Remaining CT abdomen/pelvis without contrast exam is negative. CT DI 20.15
[2018-03-10] MEDS ORDERED: Sodium Chloride 0.9% 1000 ML 0 ML ONE (14:13)
[2018-03-10] MEDS ORDERED: XYLOCAINE 2% Uro-Jet ONE (14:35)
[2018-03-10] MEDS ORDERED: XYLOCAINE 2% Uro-Jet TOP ONE (14:43)
[2018-03-10 14:51] LABS: Appearance SLIGHTLY CLOUDY (CLEAR); Bacteria FEW /HPF (NEGATIVE); Bilirubin NEGATIVE (NEGATIVE); Blood SMALL Ery/ul (0-5); Epithelial Cells MODERATE /HPF (FEW); Glucose NEGATIVE (NEGATIVE); Ketones NEGATIVE (NEGATIVE); Leukocyte Esterase MODERATE (NEGATIVE); Mucus SLIGHT /HPF (NEGATIVE); Nitrite NEGATIVE (NEGATIVE); Protein,Urine Dip NEGATIVE (Negative); Specific Gravity 1.018 (1.005-1.025); Urobilinogen NEGATIVE mg/dL (0-1)
[2018-03-10 15:01] LABS: ATYPICAL LYMPHS 1 %; Basophil 2 % (0.0-1.0); Lymphocytes 19 % (24-44); Monocyte 6 % (0.0-12.0); Neutrophils 72 % (36.0-66.0); Total Cells Counted 100
[2018-03-10 15:02] LABS: Platelet Estimate NORMAL (NORMAL)
[2018-03-10 15:14] VITALS: BP 107/69; PULSE 74; O2SAT 97
== END 2018-03-10 15:55 | disposition home or self-care (01) ==
LOC: ED 12:22
DX: K59.00 Constipation, unspecified (principal); R11.2 Nausea with vomiting, unspecified; Z79.899 Other long term (current) drug therapy
CPT/HCPCS: 36000; 36415; 74176; 80053; 81001; 82150; 83605; 83690; 85025; 87077; 87086; 87186; 96360; 96374; 99284; J1642; J2405

== ENCOUNTER 2018-03-28 09:44 | Emergency (ER) | payer MEDICARE ==
--- NOTE | 2018-03-28 10:59 | ERPHSYRPT ---
- History of Present Illness Time Seen by Provider: 03/28/18 10:54 Source: patient Exam Limitations: no limitations Patient Subjective Stated Complaint: PT HAS MULTIPLE COMPLAINTS OF EARACHE, HEADACHE, AND DIZZINESS. PT INSISTS "I NEED TO BE SEEN BECAUSE I STILL HAVE A URINARY INFECTION, I'VE HAD IT FOR A YEAR NOW AND IT KEEPS HAPPENING BECAUSE MY STOOL KEEPS BACKING UP, BUT I HAD A GOOD BOWEL MOVEMENT LAST NIGHT" DENIES. FEVER. Triage Nursing Assessment: PINK/WARM/DRY, RESP EASY, PT IN WHEELCHAIR IN WAITING ROOM. PT PREFERS TO KEEP EYES CLOSED, A&OX4, PT CONSTANTLY REFERRING TO PRIOR VISITS WHEN ASKED ABOUT TODAYS COMPLAINTS. PT GOES BACK AND FORTH BETWEEN COMPLAINING ABOUT PAIN AT THIS TIME. Physician History: The patient is a 62-year-old female complaining of left sided headache and dizziness when she moves that began last (4 days ago). She denies nausea or vomiting. She saw Dr. Benz for the same complaint last week. She has a history of migraine headaches on the same left side. She has never had dizziness with her migraine headaches. She has chronic UTIs and was on Keflex and Augmentin. She quit taking the Augmentin before the 10 days because it was making her sick. She finished out Keflex with now she does not want to be treated a migraine headache. She only wants to be treated because she has dizziness. She also has left ear pain. Her past medical history is significant for migraine headaches, chronic UTI, colon resection. Timing/Duration: day(s) (4), intermittent Quality: aching Head Pain Location: parietal (left) Severity of Pain-Max: moderate Severity of Pain-Current: none Recent Head Trauma: chronic headaches Associated Symptoms: dizziness Previous symptoms: same symptoms as today, recently seen Allergies/Adverse Reactions: codeine Allergy (Mild, Verified 03/28/18 10:03) Rash MAKES SICK sumatriptan [From Imitrex] Allergy (Verified 03/28/18 10:03) sumatriptan succinate [From Imitrex] Allergy (Verified 03/28/18 10:03) morphine Adverse Reaction (Severe, Verified 03/28/18 10:03) Headache MIGRAINES hydrocodone bitartrate [From Vicodin] Adverse Reaction (Mild, Verified 03/28/18 10:03) Vomiting fentanyl Adverse Reaction (Verified 03/28/18 10:03) Home Medications: Alprazolam 1 mg [Xanax 1 mg] 2 mg PO BID 02/17/13 [History] Rizatriptan Benzoate [Maxalt] 10 mg PO BIDPRN PRN 02/17/13 [History] Polyethylene Glycol 3350 17 gm [Miralax Powder 17GM PACKET] 34 gm PO TID 03/01 [History] Sennosides/Docusate Sodium [Senokot-S Tablet] 2 tab PO BID 04/25/15 [History] Promethazine HCl 25 mg [Phenergan 25 mg] 25 mg PO Q4HPRN PRN 05/11/15 [ History] Cetirizine HCl/Pseudoephedrine [Zyrtec-D Tablet] 0.5 each PO DAILY 02/03/16 [ History] Aspirin 81 mg PO DAILY 09/11/16 [History] Oxycodone HCl 10 mg PO DAILY 12/16/16 [History] Levothyroxine Sodium 50 Mcg [Synthroid 50 Mcg] 50 mcg PO DAILY 07/06/17 [ History] Linaclotide [Linzess] 290 mcg PO DAILY 10/07/17 [History] Phenazopyridine HCl 200 mg [Pyridium 200 mg] 200 mg PO BIDPRN PRN [History] Omeprazole 40 mg DAILY 12/13/17 [History] Naloxegol Oxalate [Movantik] 25 mg PO DAILY 03/10/18 [History] Hx Tetanus, Diphtheria Vaccination/Date Given: Yes Hx Influenza Vaccination/Date Given: Yes Hx Pneumococcal Vaccination/Date Given: No Immunizations Up to Date: Yes - Review of Systems Constitutional: No Fever, No Chills Eyes: No Symptoms Ears, Nose, & Throat: No Symptoms Respiratory: No Cough, No Dyspnea Cardiac: No Chest Pain, No Edema, No Syncope Abdominal/Gastrointestinal: No Abdominal Pain, No Nausea, No Vomiting, No Diarrhea Genitourinary Symptoms: No Dysuria Musculoskeletal: No Back Pain, No Neck Pain Skin: No Rash Neurological: Dizziness, Headache Psychological: No Symptoms Endocrine: No Symptoms Hematologic/Lymphatic: No Symptoms Immunological/Allergic: No Symptoms All Other Systems: Reviewed and Negative - Past Medical History Pertinent Past Medical History: Yes Neurological History: Migraines ENT History: Cataracts, Other Cardiac History: No Pertinent History Respiratory History: Bronchitis, Other Endocrine Medical History: Hypothyroidism, Other Musculoskeletal History: Arthritis, Degenerative Disk Disease, Osteoarthritis, Other GI Medical History: GERD, Irritable Bowel, Ulcer, Other History: Other Psycho-Social History: Anxiety Female Reproductive Disorders: Other Other Medical History: Recurrent UTI,urine kidney/bladder problems recurrent. 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 TRACHEA MALASIA - Past Surgical History Past Surgical History: Yes Neuro Surgical History: No Pertinent History Cardiac: No Pertinent History Respiratory: No Pertinent History Gastrointestinal: Bowel Surgery, Cholecystectomy, Colon Resection, Hernia Repair Genitourinary: Other Musculoskeletal: No Pertinent History Female Surgical History: Hysterectomy Other Surgical History: COLONOSCOPIES, EGDs. Total colectomy. FEEDING TUBE FOR 4 YEARS, stretches of bladder and urethra, bowel obstructions x2, lithotripsy. bronch on 1320 - Social History Smoking Status: Never smoker Exposure to second hand smoke: No Alcohol Use: None Drug Use: none Patient Lives Alone: Yes Significant Family History: no pertinent family hx - Nursing Vital Signs Nursing Vital Signs: Initial Vital Signs Temperature 97.8 F 03/28/18 10:04 Pulse Rate 88 03/28/18 10:04 Respiratory Rate 14 03/28/18 10:04 Blood Pressure 114/70 03/28/18 10:04 O2 Sat by Pulse Oximetry 97 03/28/18 10:04 Pain Scale Pain Intensity 10 - Physical Exam General Appearance: no apparent distress Eye Exam: PERRL/EOMI Ears, Nose, Throat Exam: normal ENT inspection, TMs normal, moist mucous membranes Neck Exam: normal inspection, supple, full range of motion, No meningismus Respiratory Exam: normal breath sounds, lungs clear Cardiovascular Exam: regular rate/rhythm, normal heart sounds Gastrointestinal/Abdominal Exam: soft, No tenderness, No distention Back Exam: normal inspection, normal range of motion Extremity Exam: normal inspection 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, 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, 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 Blood Culture(s) Obtained: No Antibiotics given: No Counseled pt/family regarding: need for follow-up - Departure Time of Disposition: 11:02 Departure Disposition: Home Clinical Impression: Vertigo, Headache Condition: Stable Critical Care Time: No Referrals: PAWEL BENZ [Primary Care Provider] - Additional Instructions: You have a headache, dizziness, and left ear pain. You declined any treatment for the headache. Inspection of the left ear did not show any infection. I suspect the dizziness is due to an inner ear problem. Take meclizine 25 mg every 8 hours as needed. I spoke with Dr Benz's office and you have a follow- up appointment scheduled with Dr. Benz on at 10:45 Prescriptions: Meclizine HCl 25 mg PO Q8H PRN PRN #10 tablet PRN Reason: Dizziness
[2018-03-28 11:18] VITALS: BP 105/84; PULSE 92; O2SAT 95
== END 2018-03-28 11:23 | disposition home or self-care (01) ==
LOC: ED 09:44
DX: R42 Dizziness and giddiness (principal); R51 Headache; H92.09 Otalgia, unspecified ear; Z90.49 Acquired absence of other specified parts of digestive tract
CPT/HCPCS: 99283

== ENCOUNTER 2018-05-14 13:03 | Emergency (ER) | payer MEDICARE ==
[2018-05-14 13:18] VITALS: BP 130/81
--- NOTE | 2018-05-14 13:25 | ERPHSYRPT ---
- History of Present Illness Time Seen by Provider: 05/14/18 13:17 Source: patient Exam Limitations: no limitations Patient Subjective Stated Complaint: Pt states "I have a UTI and a sore throat. " Triage Nursing Assessment: Pt alert and oriented X 3, skin pwd Pt ambulates with an upright steady gait, able to speak in clear full sentences. PT urine is orange, pt has squeaky/raspy voice. Physician History: C/o urinary frequency and burning, also sore throat, productive cough, with yellow phlegm x 1 week. She denies fever, chills, severe headaches, vomiting, diarrhea, rashes, difficulty breathing, or other complaints, except hoarseness. She has been battling with frequent UTI-s and GERD. She finished a course of antibiotics for UTI about one month ago. Timing/Duration: week(s) (1) Activites at Onset: none Quality: aching Onset Location: urethral Pain Radiation: none Severity of Pain-Max: none Severity of Pain-Current: none Prior abdominal problems: none Sexual intercourse history: non-contributory Modifying Factors: Improves With: nothing Associated Symptoms: dysuria, urinary frequency, other (sore thorat and cough) Allergies/Adverse Reactions: codeine Allergy (Mild, Verified 03/28/18 10:03) Rash MAKES SICK sumatriptan [From Imitrex] Allergy (Verified 03/28/18 10:03) sumatriptan succinate [From Imitrex] Allergy (Verified 03/28/18 10:03) morphine Adverse Reaction (Severe, Verified 03/28/18 10:03) Headache MIGRAINES hydrocodone bitartrate [From Vicodin] Adverse Reaction (Mild, Verified 03/28/18 10:03) Vomiting fentanyl Adverse Reaction (Verified 03/28/18 10:03) Home Medications: Alprazolam 1 mg [Xanax 1 mg] 2 mg PO BID 02/17/13 [History] Rizatriptan Benzoate [Maxalt] 10 mg PO BIDPRN PRN 02/17/13 [History] Polyethylene Glycol 3350 17 gm [Miralax Powder 17GM PACKET] 34 gm PO TID 03/01 [History] Sennosides/Docusate Sodium [Senokot-S Tablet] 2 tab PO BID 04/25/15 [History] Promethazine HCl 25 mg [Phenergan 25 mg] 25 mg PO Q4HPRN PRN 05/11/15 [ History] Cetirizine HCl/Pseudoephedrine [Zyrtec-D Tablet] 0.5 each PO DAILY 02/03/16 [ History] Aspirin 81 mg PO DAILY 09/11/16 [History] Oxycodone HCl 10 mg PO DAILY 12/16/16 [History] Levothyroxine Sodium 50 Mcg [Synthroid 50 Mcg] 50 mcg PO DAILY 07/06/17 [ History] Linaclotide [Linzess] 290 mcg PO DAILY 10/07/17 [History] Phenazopyridine HCl 200 mg [Pyridium 200 mg] 200 mg PO BIDPRN PRN [History] Omeprazole 40 mg DAILY 12/13/17 [History] Naloxegol Oxalate [Movantik] 25 mg PO DAILY 03/10/18 [History] Trimethoprim [Trimpex] 50 mg PO DAILY 05/14/18 [History] Hx Tetanus, Diphtheria Vaccination/Date Given: Yes Hx Influenza Vaccination/Date Given: Yes Hx Pneumococcal Vaccination/Date Given: No - Review of Systems Constitutional: No Symptoms Eyes: No Symptoms Ears, Nose, & Throat: Throat Pain Respiratory: Cough Cardiac: No Symptoms Abdominal/Gastrointestinal: No Symptoms Genitourinary Symptoms: Dysuria, Frequency Musculoskeletal: No Symptoms Skin: No Symptoms Neurological: No Symptoms All Other Systems: Reviewed and Negative - Past Medical History Pertinent Past Medical History: Yes Neurological History: Migraines ENT History: Cataracts, Other Cardiac History: No Pertinent History Respiratory History: Bronchitis, Other Endocrine Medical History: Hypothyroidism, Other Musculoskeletal History: Arthritis, Degenerative Disk Disease, Osteoarthritis, Other GI Medical History: GERD, Irritable Bowel, Ulcer, Other History: Other Psycho-Social History: Anxiety Female Reproductive Disorders: Other Other Medical History: Recurrent UTI,urine kidney/bladder problems recurrent. 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 TRACHEA MALASIA - Past Surgical History Past Surgical History: Yes Neuro Surgical History: No Pertinent History Cardiac: No Pertinent History Respiratory: No Pertinent History Gastrointestinal: Bowel Surgery, Cholecystectomy, Colon Resection, Hernia Repair Genitourinary: Other Musculoskeletal: No Pertinent History Female Surgical History: Hysterectomy Other Surgical History: COLONOSCOPIES, EGDs. Total colectomy. FEEDING TUBE FOR 4 YEARS, stretches of bladder and urethra, bowel obstructions x2, lithotripsy. bronch on 1320 - Social History Smoking Status: Never smoker Exposure to second hand smoke: Yes Alcohol Use: None Drug Use: none Patient Lives Alone: Yes Significant Family History: no pertinent family hx - Nursing Vital Signs Nursing Vital Signs: Initial Vital Signs Temperature 98.3 F 05/14/18 13:06 Pulse Rate 114 H 05/14/18 13:06 Respiratory Rate 20 05/14/18 13:06 Blood Pressure 130/81 05/14/18 13:06 O2 Sat by Pulse Oximetry 98 05/14/18 13:06 Pain Scale Pain Intensity 4 - Physical Exam General Appearance: no apparent distress Eye Exam: eyes nml inspection Ears, Nose, Throat Exam: normal ENT inspection, TMs normal, pharynx normal, moist mucous membranes Neck Exam: normal inspection, non-tender, supple, No carotid bruit, No JVD Respiratory Exam: normal breath sounds, lungs clear, airway intact, No chest tenderness Cardiovascular Exam: regular rate/rhythm, normal heart sounds, normal peripheral pulses, No murmur Gastrointestinal/Abdomen Exam: soft, normal bowel sounds, tenderness (suprapubic , mild) Back Exam: normal inspection, No CVA tenderness Extremity Exam: normal inspection, No calf tenderness, No brooks's sign Neurologic Exam: alert, 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, cooperative, normal mood/affect Skin Exam: normal color, warm, dry, No rash Lymphatic Exam: No adenopathy SpO2 Interpretation: normal SpO2: 98 O2 Delivery: Room Air - Course Nursing assessment & vital signs reviewed: Yes - Radiology Exams Chest X-ray Interpretation: Interpreted by me, Negative, Other (COPD, right hilar calcified lymph nodes, and port) Ordered Tests: Active Orders 24 hr Category Date Time Status CHEST 2 VIEWS (PA AND LAT) Stat Exams 05/14/18 13:18 Taken CULTURE,URINE Stat Lab 05/14/18 13:38 Received UA W/RFX UR CULTURE Stat Lab 05/14/18 13:38 Completed Lab/Rad Data: Laboratory Results 05/14/18 05/14/18 Range/Units 13:38 13:24 Urine Color [place] (YELLOW) Urine Appearance SLIGHTLY CLOUDY (CLEAR) Urine pH 5.0 (5-6) Ur Specific [place] 1.026 (1.005-1.025) Urine Protein 30 (Negative) Urine Ketones NEGATIVE (NEGATIVE) Urine Blood NEGATIVE (0-5) [place]/ul Urine Nitrite POSITIVE (NEGATIVE) Urine Bilirubin NEGATIVE (NEGATIVE) Urine Urobilinogen 4 (0-1) mg/dL Ur Leukocyte Esterase NEGATIVE (NEGATIVE) Urine WBC (Auto) 11-15 (0-5) /HPF Urine RBC (Auto) 0-2 (0-2) /HPF U Hyaline Cast (Auto) 3-5 (0-2) /LPF U Epithel Cells (Auto) FEW (FEW) /HPF Urine Bacteria (Auto) MODERATE (NEGATIVE) /HPF Granular Casts (Auto) 5-10 (NEGATIVE) /LPF Urine Mucus (Auto) SLIGHT (NEGATIVE) /HPF Urine Culture Reflexed YES (NO) Urine Glucose NEGATIVE (NEGATIVE) mg/dL Influenza Type A Ag NEGATIVE (NEGATIVE) Influenza Type B Ag NEGATIVE (NEGATIVE) RSV (PCR) NEGATIVE (Negative) Group A Strep Antibody NEGATIVE (NEGATIVE) - Progress Progress: unchanged Air Movement: good Progress Note: 05/14/18 14:10 Pt has been afebrile, no severe pain or difficulty breathing, or nausea, vomiting. We reviewed her results and will discharge her on PO Bactrim, to rest x 2-3 days, drink plenty of fluids, gargle, and follow up with her physician in 1 week. Blood Culture(s) Obtained: No Antibiotics given: No Counseled pt/family regarding: lab results, diagnosis, need for follow-up, rad results - Departure Departure Disposition: Home Clinical Impression: Urinary tract infection Qualifiers: Urinary tract infection type: acute cystitis Hematuria presence: without hematuria Qualified Code(s): N30.00 - Acute cystitis without hematuria Condition: Stable Critical Care Time: No Referrals: PAWEL JAMIL [Primary Care Provider] - Instructions: Urinary Tract Infection, Adult (DC) Additional Instructions: Rest x 2-3 days, drink plenty of fluids, and gargle frequently, follow up with your physician in 1 week, return if severe pain, difficulty breathing, vomiting , fever> 102 F! Prescriptions: Smz/Tmp Ds Tablet [Bactrim Ds Tablet] 1 tab PO Q12H 7 Days #14 tablet
[2018-05-14 13:51] LABS: Appearance SLIGHTLY CLOUDY (CLEAR); Bacteria MODERATE /HPF (NEGATIVE); Bilirubin NEGATIVE (NEGATIVE); Blood NEGATIVE Ery/ul (0-5); Epithelial Cells FEW /HPF (FEW); Glucose NEGATIVE (NEGATIVE); Ketones NEGATIVE (NEGATIVE); Leukocyte Esterase NEGATIVE (NEGATIVE); Mucus SLIGHT /HPF (NEGATIVE); Nitrite POSITIVE (NEGATIVE); Protein,Urine Dip 30 (Negative); RBC 0-2 /HPF (0-2); Specific Gravity 1.026 (1.005-1.025); Urobilinogen 4 mg/dL (0-1)
[2018-05-14 13:56] VITALS: PULSE 95
[2018-05-14 14:02] LABS: Group A Strep NEGATIVE (NEGATIVE); INFLUENZA A NEGATIVE (NEGATIVE); INFLUENZA B NEGATIVE (NEGATIVE); RESPIRATORY SYNCTIAL VIRUS NEGATIVE (Negative)
[2018-05-14 14:14] VITALS: O2SAT 98
--- NOTE | 2018-05-14 19:58 | XRAY ---
Indication: Cough and sore throat. Comparison: January 13, 2018. PA/lateral chest unchanged again clear with incidental right hilar calcified nodes and right Port-A-Cath. Heart and mediastinal structures within normal limits. No new/acute findings.
== END 2018-05-14 14:22 | disposition home or self-care (01) ==
LOC: ED 13:03
DX: N39.0 Urinary tract infection, site not specified (principal); F41.9 Anxiety disorder, unspecified; K21.9 Gastro-esophageal reflux disease without esophagitis; E03.9 Hypothyroidism, unspecified; Z79.899 Other long term (current) drug therapy
CPT/HCPCS: 71046; 81001; 87086; 87631; 87651; 99284

== ENCOUNTER 2018-06-23 16:39 | Emergency (ER) | payer MEDICARE ==
--- NOTE | 2018-06-23 17:16 | ERPHSYRPT ---
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 STATES FELT A POP IN UPPER BACK ON WEDNESDAY PAIN RADIATING TO MID AND UPPER HEAD AND ON LEFT SIDE. STATS DIFFERENT FROM NORMAL MIGRAINES Triage Nursing Assessment: TO ER P/W/D RESP EASY A@OX3. TEARFUL NO DIFFICUTLY BREATHING OR OTHER SX. PAIN TO LEFT SIDE HEAD AND BACK OF HEAD PRESENT. Physician History: 63 y/o white female presents with 3 day h/o typical migraine headache. pt denies head trauma. pt states the combination of benadryl, demerol, and phenergan is helpful. no visual changes. nausea chronically. no vomiting. Timing/Duration: day(s) (3) Quality: aching, pressure, throbbing Head Pain Location: global Severity of Pain-Max: moderate Severity of Pain-Current: moderate Recent Head Trauma: no recent headache/trauma Modifying Factors: Improves With: exposure to light, noise Associated Symptoms: nausea/vomiting (nausea no vomiting), sensitive to light Previous symptoms: same symptoms as today Allergies/Adverse Reactions: codeine Allergy (Mild, Verified 03/28/18 10:03) Rash MAKES SICK sumatriptan [From Imitrex] Allergy (Verified 03/28/18 10:03) sumatriptan succinate [From Imitrex] Allergy (Verified 03/28/18 10:03) morphine Adverse Reaction (Severe, Verified 03/28/18 10:03) Headache MIGRAINES hydrocodone bitartrate [From Vicodin] Adverse Reaction (Mild, Verified 03/28/18 10:03) Vomiting fentanyl Adverse Reaction (Verified 03/28/18 10:03) Home Medications: Alprazolam 1 mg [Xanax 1 mg] 2 mg PO BID 02/17/13 [History] Rizatriptan Benzoate [Maxalt] 10 mg PO BIDPRN PRN 02/17/13 [History] Polyethylene Glycol 3350 17 gm [Miralax Powder 17GM PACKET] 34 gm PO TID 03/01 [History] Sennosides/Docusate Sodium [Senokot-S Tablet] 2 tab PO BID 03/10/16 [History] Promethazine HCl 25 mg [Phenergan 25 mg] 25 mg PO Q4HPRN PRN 05/11/15 [ History] Cetirizine HCl/Pseudoephedrine [Zyrtec-D Tablet] 0.5 each PO DAILY 02/03/16 [ History] Aspirin 81 mg PO DAILY 09/11/16 [History] Oxycodone HCl 10 mg PO DAILY 12/16/16 [History] Levothyroxine Sodium 50 Mcg [Synthroid 50 Mcg] 50 mcg PO DAILY 07/06/17 [ History] Linaclotide [Linzess] 290 mcg PO DAILY 10/07/17 [History] Phenazopyridine HCl 200 mg [Pyridium 200 mg] 200 mg PO BIDPRN PRN [History] Omeprazole 40 mg DAILY 12/13/17 [History] Naloxegol Oxalate [Movantik] 25 mg PO DAILY 03/10/18 [History] Ciprofloxacin [Cipro 500 MG] 500 mg PO BID 06/02/18 [History] Estrogens,Conjugated [Premarin] 0.625 mg PO UD 06/02/18 [History] Ciprofloxacin HCl [Cipro] 500 mg PO BID 06/23/18 [History] Rizatriptan Benzoate [Maxalt] 10 mg PO BID PRN PRN 06/23/18 [History] Hx Tetanus, Diphtheria Vaccination/Date Given: Yes Hx Influenza Vaccination/Date Given: Yes Hx Pneumococcal Vaccination/Date Given: No - Review of Systems Constitutional: No Symptoms Eyes: Photophobia Ears, Nose, & Throat: No Symptoms Respiratory: No Symptoms Cardiac: No Symptoms Abdominal/Gastrointestinal: No Symptoms Genitourinary Symptoms: No Symptoms Musculoskeletal: No Symptoms Skin: No Symptoms Neurological: Headache Psychological: No Symptoms Endocrine: No Symptoms Hematologic/Lymphatic: No Symptoms Immunological/Allergic: No Symptoms All Other Systems: Reviewed and Negative - Past Medical History Pertinent Past Medical History: Yes Neurological History: Migraines ENT History: Cataracts, Other Cardiac History: No Pertinent History Respiratory History: Bronchitis, COPD, Other Endocrine Medical History: Hypothyroidism, Other Musculoskeletal History: Arthritis, Degenerative Disk Disease, Osteoarthritis, Other GI Medical History: GERD, Irritable Bowel, Ulcer, Other History: Other Psycho-Social History: Anxiety Female Reproductive Disorders: Other Other Medical History: Recurrent UTI,urine kidney/bladder problems recurrent. 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 TRACHEA MALASIA - Past Surgical History Past Surgical History: Yes Neuro Surgical History: No Pertinent History Cardiac: No Pertinent History Respiratory: No Pertinent History Gastrointestinal: Bowel Surgery, Cholecystectomy, Colon Resection, Hernia Repair Genitourinary: Other Musculoskeletal: No Pertinent History Female Surgical History: Hysterectomy Other Surgical History: COLONOSCOPIES, EGDs. Total colectomy. FEEDING TUBE FOR 4 YEARS, stretches of bladder and urethra, bowel obstructions x2, lithotripsy. bronch on 1320 - Social History Smoking Status: Never smoker Exposure to second hand smoke: Yes Alcohol Use: None Drug Use: none Patient Lives Alone: Yes Significant Family History: no pertinent family hx - Nursing Vital Signs Nursing Vital Signs: Initial Vital Signs Temperature 98.2 F 06/23/18 16:49 Pulse Rate 61 06/23/18 16:49 Respiratory Rate 18 06/23/18 16:49 Blood Pressure 139/101 06/23/18 16:49 O2 Sat by Pulse Oximetry 97 06/23/18 16:49 Pain Scale Pain Intensity 10 - Physical Exam General Appearance: moderate distress, alert, anxiety Eye Exam: PERRL/EOMI Ears, Nose, Throat Exam: normal ENT inspection, moist mucous membranes Neck Exam: normal inspection, supple, full range of motion, No meningismus Respiratory Exam: normal breath sounds, lungs clear Cardiovascular Exam: regular rate/rhythm, normal heart sounds Gastrointestinal/Abdominal Exam: soft, No tenderness, No distention Back Exam: normal inspection, normal range of motion 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, 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, 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 Exam: normal speech, PERRL, No facial droop Coordination/Gait Exam: normal cerebellar function Motor/Sensory Exam: no motor deficit, no sensory deficit Skin Exam: normal color, warm, dry, No rash SpO2: 97 - Course Nursing assessment & vital signs reviewed: Yes Ordered Tests: Medication Summary Discontinued Medications Generic Name Dose Route Start Last Admin Trade Name Freq PRN Reason Stop Dose Admin Diphenhydramine HCl 25 mg 06/23/18 17:43 06/23/18 18:00 Benadryl 50 Mg/Ml IM 06/23/18 17:44 25 mg STAT ONE Administration Diphenhydramine HCl Confirm 06/23/18 17:54 Benadryl 50 Mg/Ml Administered 06/23/18 17:55 Dose 50 mg .ROUTE .STK-MED ONE Meperidine HCl 50 mg 06/23/18 17:43 06/23/18 18:01 Demerol 50 Mg IM 06/23/18 17:44 50 mg STAT ONE Administration Meperidine HCl Confirm 06/23/18 17:54 Demerol 50 Mg Administered 06/23/18 17:55 Dose 50 mg .ROUTE .STK-MED ONE Promethazine HCl 25 mg 06/23/18 17:43 06/23/18 18:01 Phenergan 25 Mg Inj IM 06/23/18 17:44 25 mg STAT ONE Administration Promethazine HCl Confirm 06/23/18 17:54 Phenergan 25 Mg Inj Administered 06/23/18 17:55 Dose 25 mg .ROUTE .STK-MED ONE - Progress Progress: improved, re-examined Air Movement: good Counseled pt/family regarding: diagnosis, need for follow-up - Departure Departure Disposition: Home Clinical Impression: Migraine headache Condition: Stable Critical Care Time: No Referrals: PAWEL JAMIL [Primary Care Provider] - Additional Instructions: follow up with primary doctor for further management of your headaches.
[2018-06-23] MEDS ORDERED: Phenergan 25 MG INJ IM ONE (17:43)
[2018-06-23] MEDS ORDERED: DEMEROL 50 MG IM ONE (17:43)
[2018-06-23] MEDS ORDERED: BENADRYL 50 MG/ML IM ONE (17:43)
[2018-06-23] MEDS ORDERED: DEMEROL 50 MG ONE (17:54)
[2018-06-23] MEDS ORDERED: Phenergan 25 MG INJ ONE (17:54)
[2018-06-23] MEDS ORDERED: BENADRYL 50 MG/ML ONE (17:54)
[2018-06-23 18:31] VITALS: BP 124/77; PULSE 98; O2SAT 95
== END 2018-06-23 18:39 | disposition home or self-care (01) ==
LOC: ED 16:39
DX: G43.909 Migraine, unspecified, not intractable, without status migrainosus (principal); J44.9 Chronic obstructive pulmonary disease, unspecified; M19.90 Unspecified osteoarthritis, unspecified site; K21.9 Gastro-esophageal reflux disease without esophagitis; Z87.440 Personal history of urinary (tract) infections
CPT/HCPCS: 96372; 99284; J1200; J2175; J2550

== ENCOUNTER 2018-07-21 19:30 | Emergency (ER) | payer MEDICARE ==
[2018-07-21 20:17] VITALS: BP 96/77
[2018-07-21] MEDS ORDERED: Sodium Chloride 0.9% 1000 ML 1,000 ML IV STA (20:39)
--- NOTE | 2018-07-21 21:04 | ERPHSYRPT ---
- History of Present Illness Time Seen by Provider: 07/21/18 20:55 Source: patient Exam Limitations: no limitations Patient Subjective Stated Complaint: pt is alert and oriented. pt is ambulatory with a steady gait. pt comes in with lower pelvic pain. pt states that "she has a UTI" pt states that she has had a "UT for almost two years" pt is states she' s having frequency, hesitancy, burning when urinatin. pt states that she was taking diflucan, invanz IV. she states she did the IV antibiotics for seven days and finished last week. Triage Nursing Assessment: see above Physician History: This is a 63-year-old white female with history of migraines, cataracts, hypothyroidism, bronchitis, COPD, GERD, irritable bowel, ulcers, arthritis, degenerative disc disease, osteoarthritis, anxiety, recurrent UTI, tracheomalacia who has chronic returning UTIs arrives with complaint of frequency hesitancy and burning with urination symptoms for several days she states she was recently placed on Invanz secondary to a UTI however she states she doesn't feel like this has really helped. Past medical history includes migraines, cataracts, hypothyroidism, bronchitis, COPD, GERD, irritable bowel, ulcers, arthritis, degenerative disc disease, osteoarthritis, anxiety, recurrent UTI, kidney and bladder infections recurrent , tracheomalacia Past surgical history includes cholecystectomy, hemorrhoids, hysterectomy, colonoscopy, to go ligation, feeding tube, bladder stretch, bowel obstruction x2 , lithotripsy, bronchoscopy Timing/Duration: day(s) (symptoms for several days) Severity: moderate Modifying Factors: Improves With: nothing Associated Symptoms: abdominal pain (suprapubic abdominal pain), other (dysuria) , No nausea, No vomiting, No shortness of breath, No heartburn, No diaphoresis, No cough, No chills, No chest pain, No fever, No headaches, No loss of appetite , No malaise, No rash, No syncope, No seizure, No weakness Allergies/Adverse Reactions: codeine Allergy (Mild, Verified 07/01/18 12:52) Rash MAKES SICK nitrofurantoin [From Macrobid] Allergy (Verified 07/21/18 20:17) sumatriptan [From Imitrex] Allergy (Verified 07/01/18 12:52) sumatriptan succinate [From Imitrex] Allergy (Verified 07/01/18 12:52) morphine Adverse Reaction (Severe, Verified 07/01/18 12:52) Headache MIGRAINES hydrocodone bitartrate [From Vicodin] Adverse Reaction (Mild, Verified 07/01/18 12:52) Vomiting fentanyl Adverse Reaction (Verified 07/01/18 12:52) Home Medications: Alprazolam 1 mg [Xanax 1 mg] 2 mg PO BID 02/17/13 [History] Rizatriptan Benzoate [Maxalt] 10 mg PO BIDPRN PRN 02/17/13 [History] Polyethylene Glycol 3350 17 gm [Miralax Powder 17GM PACKET] 34 gm PO TID 03/01 [History] Sennosides/Docusate Sodium [Senokot-S Tablet] 2 tab PO BID 04/25/15 [History] Promethazine HCl 25 mg [Phenergan 25 mg] 25 mg PO Q4HPRN PRN 05/11/15 [ History] Cetirizine HCl/Pseudoephedrine [Zyrtec-D Tablet] 0.5 each PO DAILY 02/03/16 [ History] Aspirin 81 mg PO DAILY 09/11/16 [History] Oxycodone HCl 10 mg PO DAILY 12/16/16 [History] Levothyroxine Sodium 50 Mcg [Synthroid 50 Mcg] 50 mcg PO DAILY 07/06/17 [ History] Linaclotide [Linzess] 290 mcg PO DAILY 10/07/17 [History] Phenazopyridine HCl 200 mg [Pyridium 200 mg] 200 mg PO BIDPRN PRN [History] Omeprazole 40 mg DAILY 12/13/17 [History] Naloxegol Oxalate [Movantik] 25 mg PO DAILY 03/10/18 [History] Estrogens,Conjugated [Premarin] 0.625 mg PO UD 06/02/18 [History] Rizatriptan Benzoate [Maxalt] 10 mg PO BID PRN PRN 06/23/18 [History] Fluconazole 100 mg [Diflucan 100 MG] 100 mg PO DAILY 07/06/18 [History] Hx Tetanus, Diphtheria Vaccination/Date Given: Yes Hx Influenza Vaccination/Date Given: Yes Hx Pneumococcal Vaccination/Date Given: No Immunizations Up to Date: Yes - Review of Systems Constitutional: No Symptoms Eyes: No Symptoms Ears, Nose, & Throat: No Symptoms Respiratory: No Cough, No Dyspnea Cardiac: No Chest Pain, No Edema, No Syncope Abdominal/Gastrointestinal: Abdominal Pain (suprapubic abdominal pain), No Nausea, No Vomiting, No Diarrhea Genitourinary Symptoms: Dysuria, Other (patient states blood in her urine a week ago) Musculoskeletal: No Back Pain, No Neck Pain Skin: No Rash Neurological: No Dizziness, No Focal Weakness, No Sensory Changes Psychological: No Symptoms Endocrine: No Symptoms All Other Systems: Reviewed and Negative - Past Medical History Pertinent Past Medical History: Yes Neurological History: Migraines ENT History: Cataracts, Other Cardiac History: No Pertinent History Respiratory History: Bronchitis, COPD, Other Endocrine Medical History: Hypothyroidism, Other Musculoskeletal History: Arthritis, Degenerative Disk Disease, Osteoarthritis, Other GI Medical History: GERD, Irritable Bowel, Ulcer, Other History: Other Psycho-Social History: Anxiety Female Reproductive Disorders: Other Other Medical History: Recurrent UTI,urine kidney/bladder problems recurrent. 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 TRACHEA MALASIA - Past Surgical History Past Surgical History: Yes Neuro Surgical History: No Pertinent History Cardiac: No Pertinent History Respiratory: No Pertinent History Gastrointestinal: Bowel Surgery, Cholecystectomy, Colon Resection, Hernia Repair Genitourinary: Other Musculoskeletal: No Pertinent History Female Surgical History: Hysterectomy Other Surgical History: COLONOSCOPIES, EGDs. Total colectomy. FEEDING TUBE FOR 4 YEARS, stretches of bladder and urethra, bowel obstructions x2, lithotripsy. bronch on 1320 - Social History Smoking Status: Never smoker Exposure to second hand smoke: No Alcohol Use: None Drug Use: none Patient Lives Alone: Yes Significant Family History: no pertinent family hx - Female History Hx Now: No - Nursing Vital Signs Nursing Vital Signs: Initial Vital Signs Temperature 98.1 F 07/21/18 20:04 Pulse Rate 88 07/21/18 20:04 Respiratory Rate 18 07/21/18 20:04 Blood Pressure 96/77 07/21/18 20:04 O2 Sat by Pulse Oximetry 99 07/21/18 20:04 Pain Scale Pain Intensity 10 - Physical Exam General Appearance: mild distress, alert Eye Exam: PERRL/EOMI, eyes nml inspection Ears, Nose, Throat Exam: normal ENT inspection, TMs normal, pharynx normal, moist mucous membranes Neck Exam: normal inspection, non-tender, supple, full range of motion Respiratory Exam: normal breath sounds, lungs clear, No respiratory distress Cardiovascular Exam: regular rate/rhythm, normal heart sounds, normal peripheral pulses, capillary refill <2 sec Gastrointestinal/Abdomen Exam: soft, normal bowel sounds, tenderness ( Suprapubic tenderness), No mass Back Exam: normal inspection, normal range of motion, No CVA tenderness, No vertebral tenderness Extremity Exam: normal inspection, normal range of motion, pelvis stable Neurologic Exam: alert, 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, cooperative, 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 nml as tested, normal mood/affect, nml cerebellar function, nml station & gait, sensation nml, No motor deficits Skin Exam: normal color, warm, dry, No rash Lymphatic Exam: No adenopathy SpO2 Interpretation: normal (99%) SpO2: 99 - Course Nursing assessment & vital signs reviewed: Yes Ordered Tests: Active Orders 24 hr Category Date Time Status IV Insertion STAT Care 07/21/18 20:39 Active AMYLASE Stat Lab 07/21/18 21:00 Completed BLOOD CULTURE Stat Lab 07/21/18 21:05 Received CBC W DIFF Stat Lab 07/21/18 21:00 Completed CMP Stat Lab 07/21/18 21:00 Completed CULTURE,URINE Stat Lab 07/21/18 21:00 Received LIPASE Stat Lab 07/21/18 21:00 Completed UA W/RFX UR CULTURE Stat Lab 07/21/18 21:00 Completed Medication Summary Discontinued Medications Generic Name Dose Route Start Last Admin Trade Name Freq PRN Reason Stop Dose Admin Sodium Chloride 1,000 mls @ 999 mls/hr 07/21/18 20:39 07/21/18 21:24 Sodium Chloride 0.9% 1000 Ml IV 07/21/18 21:39 Not Given .Q1H1M STA Lab/Rad Data: Laboratory Result Diagrams 07/21/18 21:00 07/21/18 21:00 Laboratory Results 07/21/18 07/21/18 07/21/18 Range/Units 21:00 21:00 21:00 WBC 5.6 (4.0-10.5) K/mm3 RBC 4.59 (4.1-5.4) M/mm3 Hgb 14.5 (12.0-16.0) gm/dl Hct 42.2 (35-47) % MCV 91.9 (78-100) fl MCH 31.6 (26-32) pg MCHC 34.4 (32-36) g/dl RDW 12.9 (11.5-14.0) % Plt Count 206 (150-450) K/mm3 MPV 10.3 H (6-9.5) fl Gran % 67.7 H (36.0-66.0) % Eos # (Auto) 0.06 (0-0.5) Absolute Lymphs (auto) 1.32 (1.0-4.6) Absolute Monos (auto) 0.41 (0.0-1.3) Lymphocytes % 23.5 L (24.0-44.0) % Monocytes % 7.3 (0.0-12.0) % Eosinophils % 1.1 (0.00-5.0) % Basophils % 0.4 (0.0-0.4) % Absolute Granulocytes 3.81 (1.4-6.9) Basophils # 0.02 (0-0.4) Sodium 139 (137-145) mmol/L Potassium 5.1 (3.5-5.1) mmol/L Chloride 108 H (98-107) mmol/L Carbon Dioxide 16 L* (22-30) mmol/L Anion Gap 19.7 H (5-15) MEQ/L BUN 27 H (7-17) mg/dL Creatinine 1.42 H (0.52-1.04) mg/dL Estimated GFR 39.7 ML/MIN Glucose 109 H (74-106) mg/dL Calcium 9.7 (8.4-10.2) mg/dL Total Bilirubin 0.30 (0.2-1.3) mg/dL AST 32 (14-36) U/L ALT 24 (0-35) U/L Alkaline Phosphatase 113 (38-126) U/L Serum Total Protein 8.4 H (6.3-8.2) g/dL Albumin 4.6 (3.5-5.0) g/dL Amylase 152 H (30-110) U/L Lipase 212 (23-300) U/L Urine Color YELLOW (YELLOW) Urine Appearance TURBID (CLEAR) Urine pH 5.0 (5-6) Ur Specific Wayne 1.024 (1.005-1.025) Urine Protein NEGATIVE (Negative) Urine Ketones NEGATIVE (NEGATIVE) Urine Blood NEGATIVE (0-5) Aroldo/ul Urine Nitrite NEGATIVE (NEGATIVE) Urine Bilirubin NEGATIVE (NEGATIVE) Urine Urobilinogen NEGATIVE (0-1) mg/dL Ur Leukocyte Esterase MODERATE (NEGATIVE) Urine WBC (Auto) 16-25 (0-5) /HPF Urine RBC (Auto) 6-10 (0-2) /HPF U Hyaline Cast (Auto) 0-2 (0-2) /LPF U Epithel Cells (Auto) MODERATE (FEW) /HPF Urine Bacteria (Auto) MODERATE (NEGATIVE) /HPF U Non-Squamous Epi Cells RARE (FEW) /HPF Urine Mucus (Auto) SLIGHT (NEGATIVE) /HPF Urine Yeast (Budding) Moderate (NEGATIVE) /HPF Urine Culture Reflexed YES (NO) Urine Glucose NEGATIVE (NEGATIVE) mg/dL - Progress Progress: improved Progress Note: 07/21/18 21:03 63-year-old white female with history of chronic and recurrent urinary tract infection and pelvic pain arrives with complaint of suprapubic discomfort and dysuria symptoms for several days she has recently stopped Invanz. Patient states she does have pain medications at home. I had ordered IV normal saline CBC CMP chemistry from the patient. She really does not want this she states she wants her urine checked. Will go ahead and await urinalysis 07/21/18 22:18 Patient with 16-25 white cells per high-power field in her urine Patient with chemistry showing sodium 139 potassium 5.1 chloride 108 unfortunately patient bicarbonate is 16 BUN and creatinine are 27 and 1.42 respectively glucose 109 white count 5.6 hemoglobin 14.5 hematocrit 42.2 platelets 206 I've recommended that the patient given a liter of fluid she however refuses this and does not want this I will go ahead and place patient on Keflex 500 mg orally every 6 hours. Patient has pain medications at home she is to take plenty of fluids and followup with her family - Departure Departure Disposition: Home Clinical Impression: Suprapubic abdominal pain, Chronic abdominal pain UTI (urinary tract infection) Qualifiers: Urinary tract infection type: site unspecified Hematuria presence: without hematuria Qualified Code(s): N39.0 - Urinary tract infection, site not specified Condition: Fair Critical Care Time: No Referrals: PAWEL JAMIL [Primary Care Provider] - Additional Instructions: . Return home. Keflex 500 mg orally 5 times a day for 7 days. Plenty of fluids push fluids tonight. Pain medications as prescribed by your family . Followup with your family . Return for acute distress or for severe symptoms. Prescriptions: Cephalexin Mh 500 mg [Keflex 500 mg] 500 mg PO Q6H #28 capsule
[2018-07-21 21:14] LABS: BASOPHIL % 0.4 % (0.0-0.4); Basophil (Absolute #) 0.02 (0-0.4); Eosinophil % 1.1 % (0.00-5.0); Eosinophil (Absolute #) 0.06 (0-0.5); Granulocyte Absolute (ANC) 3.81 (1.4-6.9); Granulocytes % 67.7 % (36.0-66.0); Hematocrit 42.2 % (35-47); Hemoglobin 14.5 gm/dl (12.0-16.0); Lymphocyte (Absolute #) 1.32 (1.0-4.6); Lymphocytes % 23.5 % (24.0-44.0); Mean Cell Volume 91.9 fl (78-100); Mean Corpuscular Hemoglobin 31.6 pg (26-32); Mean Corpuscular Hgb Concent. 34.4 g/dl (32-36); Mean Platelet Volume 10.3 fl (6-9.5); Monocyte (Absolute #) 0.41 (0.0-1.3); Monocytes % 7.3 % (0.0-12.0); Platelet Count 206 K/mm3 (150-450); Red Blood Count 4.59 M/mm3 (4.1-5.4); Red Cell Distribution Width 12.9 % (11.5-14.0); White Blood Count 5.6 K/mm3 (4.0-10.5)
[2018-07-21 21:28] LABS: ALBUMIN 4.6 g/dL (3.5-5.0); ANION GAP 19.7 MEQ/L (5-15); Appearance TURBID (CLEAR); BILIRUBIN,TOTAL 0.3 mg/dL (0.2-1.3); Bacteria MODERATE /HPF (NEGATIVE); Bilirubin NEGATIVE (NEGATIVE); Blood NEGATIVE Ery/ul (0-5); Calcium 9.7 mg/dL (8.4-10.2); Creatinine 1 1.42 mg/dL (0.52-1.04); Epithelial Cells MODERATE /HPF (FEW); Glucose NEGATIVE (NEGATIVE); Hyaline Casts 0-2 /LPF (0-2); Ketones NEGATIVE (NEGATIVE); Leukocyte Esterase MODERATE (NEGATIVE); Mucus SLIGHT /HPF (NEGATIVE); Nitrite NEGATIVE (NEGATIVE); Non-Squamous Epithelial Cells RARE /HPF (FEW); Potassium 5.1 mmol/L (3.5-5.1); Protein,Urine Dip NEGATIVE (Negative); Specific Gravity 1.024 (1.005-1.025); Total Protein 8.4 g/dL (6.3-8.2); Urobilinogen NEGATIVE mg/dL (0-1)
[2018-07-21 21:31] LABS: Budding Yeast Moderate /HPF (NEGATIVE)
[2018-07-21] MEDS ORDERED: KEFLEX 500 MG PO ONE (22:22)
[2018-07-21] MEDS ORDERED: KEFLEX 500 MG ONE (22:41)
[2018-07-21 22:50] VITALS: PULSE 90; O2SAT 98
== END 2018-07-21 22:49 | disposition home or self-care (01) ==
LOC: ED 19:30
DX: R10.9 Unspecified abdominal pain (principal); N39.0 Urinary tract infection, site not specified; J44.9 Chronic obstructive pulmonary disease, unspecified; Z79.899 Other long term (current) drug therapy; E03.9 Hypothyroidism, unspecified
CPT/HCPCS: 36415; 80053; 81001; 82150; 83690; 85025; 87040; 87077; 87086; 87186; 96360; 96365; 99284; A9270-GY

== ENCOUNTER 2018-09-17 09:54 | Emergency (ER) | payer MEDICARE ==
--- NOTE | 2018-09-17 11:07 | ERPHSYRPT ---
- History of Present Illness Time Seen by Provider: 09/17/18 11:02 Source: patient Exam Limitations: no limitations Patient Subjective Stated Complaint: states migraine since yesterday. used maxalt at home without relief. Triage Nursing Assessment: to room per w/c. skin w/d, color normal, resp nonlabored. patient holding forehead and has on dark glasses. Physician History: Same head ache as before - a little worse. Denies fever, chills, sweats. No recent illnesses. Timing/Duration: today Quality: pressure, sharpness, stabbing Head Pain Location: global Severity of Pain-Max: severe Severity of Pain-Current: severe (per patient) Recent Head Trauma: no recent headache/trauma, frequent headaches, chronic headaches Previous symptoms: same symptoms as today Allergies/Adverse Reactions: codeine Allergy (Mild, Verified 09/17/18 10:12) Rash MAKES SICK nitrofurantoin [From Macrobid] Allergy (Verified 09/17/18 10:12) sumatriptan [From Imitrex] Allergy (Verified 09/17/18 10:12) sumatriptan succinate [From Imitrex] Allergy (Verified 09/17/18 10:12) morphine Adverse Reaction (Severe, Verified 09/17/18 10:12) Headache MIGRAINES hydrocodone bitartrate [From Vicodin] Adverse Reaction (Mild, Verified 09/17/18 10:12) Vomiting fentanyl Adverse Reaction (Verified 09/17/18 10:12) Home Medications: Alprazolam 1 mg [Xanax 1 mg] 2 mg PO BID 02/17/13 [History] Polyethylene Glycol 3350 17 gm [Miralax Powder 17GM PACKET] 34 gm PO TID 03/01 [History] Sennosides/Docusate Sodium [Senokot-S Tablet] 2 tab PO BID 04/25/15 [History] Promethazine HCl 25 mg [Phenergan 25 mg] 25 mg PO Q4HPRN PRN 05/11/15 [ History] Cetirizine HCl/Pseudoephedrine [Zyrtec-D Tablet] 0.5 each PO DAILY 02/03/16 [ History] Aspirin 81 mg PO DAILY 09/11/16 [History] Oxycodone HCl 10 mg PO DAILY 12/16/16 [History] Levothyroxine Sodium 50 Mcg [Synthroid 50 Mcg] 50 mcg PO DAILY 07/06/17 [ History] Linaclotide [Linzess] 290 mcg PO DAILY 10/07/17 [History] Phenazopyridine HCl 200 mg [Pyridium 200 mg] 200 mg PO BIDPRN PRN [History] Omeprazole 40 mg DAILY 12/13/17 [History] Naloxegol Oxalate [Movantik] 25 mg PO DAILY 03/10/18 [History] Estrogens,Conjugated [Premarin] 0.625 mg PO UD 06/02/18 [History] Rizatriptan Benzoate [Maxalt] 10 mg PO BID PRN PRN 06/23/18 [History] Glycopyrrolate/Formoterol Fum [Bevespi Aerosphere Inhaler] 5.9 gm IH BID [History] Nystatin Powder 15 gm [Nystop Powder 15 gm] 30 gm TP DAILY 08/19/18 [ History] Cefuroxime Axetil 500 mg [Ceftin 500 mg] 500 mg PO DAILY 09/17/18 [History] Clindamycin Phosphate 1 ea INTRAVAGIN UD 09/17/18 [History] Hx Tetanus, Diphtheria Vaccination/Date Given: Yes Hx Influenza Vaccination/Date Given: Yes Hx Pneumococcal Vaccination/Date Given: No - Review of Systems Constitutional: Malaise Eyes: Photophobia Ears, Nose, & Throat: No Symptoms All Other Systems: Reviewed and Negative - Past Medical History Pertinent Past Medical History: Yes Neurological History: Migraines ENT History: Cataracts, Other Cardiac History: No Pertinent History Respiratory History: Bronchitis, COPD, Other Endocrine Medical History: Hypothyroidism, Other Musculoskeletal History: Arthritis, Degenerative Disk Disease, Osteoarthritis, Other GI Medical History: GERD, Irritable Bowel, Ulcer, Other History: Other Psycho-Social History: Anxiety Female Reproductive Disorders: Other Other Medical History: Recurrent UTI,urine kidney/bladder problems recurrent. 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 TRACHEA MALASIA - Past Surgical History Past Surgical History: Yes Neuro Surgical History: No Pertinent History Cardiac: No Pertinent History Respiratory: No Pertinent History Gastrointestinal: Bowel Surgery, Cholecystectomy, Colon Resection, Hernia Repair Genitourinary: Other Musculoskeletal: No Pertinent History Female Surgical History: Hysterectomy Other Surgical History: COLONOSCOPIES, EGDs. Total colectomy. FEEDING TUBE FOR 4 YEARS, stretches of bladder and urethra, bowel obstructions x2, lithotripsy. bronch on 1320 - Social History Smoking Status: Never smoker Exposure to second hand smoke: No Alcohol Use: None Drug Use: none Patient Lives Alone: Yes Significant Family History: no pertinent family hx - Female History Hx Now: No - Nursing Vital Signs Nursing Vital Signs: Initial Vital Signs Temperature 98.3 F 09/17/18 10:06 Pulse Rate 98 H 09/17/18 10:06 Respiratory Rate 18 09/17/18 10:06 Blood Pressure 97/58 09/17/18 10:06 O2 Sat by Pulse Oximetry 96 09/17/18 10:06 Pain Scale Pain Intensity 8 - Physical Exam General Appearance: mild distress, anxiety Eye Exam: PERRL/EOMI, eyes nml inspection Ears, Nose, Throat Exam: normal ENT inspection, moist mucous membranes Neck Exam: normal inspection, non-tender, supple (chin to chest intact) Respiratory Exam: normal breath sounds, lungs clear Cardiovascular Exam: regular rate/rhythm Extremity Exam: normal inspection 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, 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, cooperative health educator Exam: normal hearing, normal speech Motor/Sensory Exam: no motor deficit, no sensory deficit Skin Exam: normal color, warm, dry SpO2 Interpretation: normal SpO2: 96 O2 Delivery: Room Air - Course Nursing assessment & vital signs reviewed: Yes Ordered Tests: Medication Summary Discontinued Medications Generic Name Dose Route Start Last Admin Trade Name Freq PRN Reason Stop Dose Admin Diphenhydramine HCl 50 mg 09/17/18 11:12 09/17/18 11:28 Benadryl 50 Mg/Ml IV 09/17/18 11:13 50 mg STAT ONE Administration Diphenhydramine HCl Confirm 09/17/18 11:20 Benadryl 50 Mg/Ml Administered 09/17/18 11:21 Dose 50 mg .ROUTE .STK-MED ONE Sodium Chloride 1,000 mls @ 999 mls/hr 09/17/18 11:08 09/17/18 11:30 Sodium Chloride 0.9% 1000 Ml IV 09/17/18 12:08 Not Given .Q1H1M STA Ketorolac Tromethamine 30 mg 09/17/18 11:13 09/17/18 11:29 Toradol 30 Mg Injection IV 09/17/18 11:14 30 mg STAT ONE Administration Ketorolac Tromethamine Confirm 09/17/18 11:20 Toradol 30 Mg Injection Administered 09/17/18 11:21 Dose 30 mg .ROUTE .STK-MED ONE Meperidine HCl 25 mg 09/17/18 12:14 09/17/18 12:27 Demerol 25mg Syringe IV 09/17/18 12:15 25 mg STAT ONE Administration Meperidine HCl Confirm 09/17/18 12:20 Demerol 25mg Syringe Administered 09/17/18 12:21 Dose 25 mg .ROUTE .STK-MED ONE Promethazine HCl 25 mg 09/17/18 11:11 09/17/18 11:28 Phenergan 25 Mg Inj IV 09/17/18 11:12 25 mg STAT ONE Administration Promethazine HCl Confirm 09/17/18 11:20 Phenergan 25 Mg Inj Administered 09/17/18 11:21 Dose 25 mg .ROUTE .STK-MED ONE - Progress Progress: unchanged (with initial medicaitons; then given Demerol requested by patient) - Departure Departure Disposition: Home Clinical Impression: Headache Qualifiers: Headache chronicity pattern: chronic headache Intractability: not intractable Condition: Stable Critical Care Time: No Referrals: PAWEL JMAIL [Primary Care Provider] - Additional Instructions: Resume your usual medications; follow up with primary care provider
[2018-09-17] MEDS ORDERED: BENADRYL 50 MG/ML ONE (11:20)
[2018-09-17] MEDS ORDERED: Phenergan 25 MG INJ ONE (11:20)
[2018-09-17] MEDS ORDERED: TORAdol 30 mg Injection ONE (11:20)
[2018-09-17] MEDS: BENADRYL 50 MG/ML IV ONE (11:28)
[2018-09-17] MEDS: Phenergan 25 MG INJ IV ONE (11:28)
[2018-09-17] MEDS: TORAdol 30 mg Injection IV ONE (11:29)
[2018-09-17] MEDS: Sodium Chloride 0.9% 1000 ML 1,000 ML IV STA (11:30)
[2018-09-17] MEDS ORDERED: DEMEROL 25MG SYRINGE ONE (12:20)
[2018-09-17] MEDS: DEMEROL 25MG SYRINGE IV ONE (12:27)
[2018-09-17 12:47] VITALS: BP 92/57; PULSE 86
[2018-09-17 13:00] VITALS: O2SAT 96
== END 2018-09-17 13:15 | disposition home or self-care (01) ==
LOC: ED 09:54
DX: R51 Headache (principal)
CPT/HCPCS: 96372; 99284; J1200; J1885; J2175; J2550

== ENCOUNTER 2018-09-18 13:32 | Emergency (ER) | payer MEDICARE ==
[2018-09-18] MEDS ORDERED: BENADRYL 50 MG/ML IM ONE (14:38)
[2018-09-18] MEDS ORDERED: Phenergan 25 MG INJ IM ONE (14:39)
[2018-09-18] MEDS ORDERED: Phenergan 25 MG INJ ONE (15:00)
[2018-09-18] MEDS ORDERED: BENADRYL 50 MG/ML ONE (15:00)
[2018-09-18 15:13] VITALS: BP 109/73; PULSE 84; O2SAT 99
--- NOTE | 2018-09-18 15:49 | ERPHSYRPT ---
- History of Present Illness Time Seen by Provider: 09/18/18 15:10 Source: patient Exam Limitations: no limitations Patient Subjective Stated Complaint: "I have had a migraine since yesterday and was seen here yesterday and sent home". Triage Nursing Assessment: C/o migraine headache in right side of head states patient. Patient here yesterday for same and states headache eased but worse today. AAox3, color good, resp easy, wearing sungalsses due to photophobia states patient. Physician History: Had more vomiting and nausea with headache since yesterday. Previous symptoms: recently seen Allergies/Adverse Reactions: codeine Allergy (Mild, Verified 09/18/18 14:34) Rash MAKES SICK nitrofurantoin [From Macrobid] Allergy (Verified 09/18/18 14:34) sumatriptan [From Imitrex] Allergy (Verified 09/18/18 14:34) sumatriptan succinate [From Imitrex] Allergy (Verified 09/18/18 14:34) morphine Adverse Reaction (Severe, Verified 09/18/18 14:34) Headache MIGRAINES hydrocodone bitartrate [From Vicodin] Adverse Reaction (Mild, Verified 09/18/18 14:34) Vomiting fentanyl Adverse Reaction (Verified 09/18/18 14:34) Home Medications: Alprazolam 1 mg [Xanax 1 mg] 2 mg PO BID 02/17/13 [History] Polyethylene Glycol 3350 17 gm [Miralax Powder 17GM PACKET] 34 gm PO TID 03/01 [History] Sennosides/Docusate Sodium [Senokot-S Tablet] 2 tab PO BID 04/25/15 [History] Promethazine HCl 25 mg [Phenergan 25 mg] 25 mg PO Q4HPRN PRN 05/11/15 [ History] Cetirizine HCl/Pseudoephedrine [Zyrtec-D Tablet] 0.5 each PO DAILY 02/03/16 [ History] Aspirin 81 mg PO DAILY 09/11/16 [History] Oxycodone HCl 10 mg PO DAILY 12/16/16 [History] Levothyroxine Sodium 50 Mcg [Synthroid 50 Mcg] 50 mcg PO DAILY 07/06/17 [ History] Linaclotide [Linzess] 290 mcg PO DAILY 10/07/17 [History] Phenazopyridine HCl 200 mg [Pyridium 200 mg] 200 mg PO BIDPRN PRN [History] Omeprazole 40 mg DAILY 12/13/17 [History] Naloxegol Oxalate [Movantik] 25 mg PO DAILY 03/10/18 [History] Estrogens,Conjugated [Premarin] 0.625 mg PO UD 06/02/18 [History] Rizatriptan Benzoate [Maxalt] 10 mg PO BID PRN PRN 06/23/18 [History] Glycopyrrolate/Formoterol Fum [Bevespi Aerosphere Inhaler] 5.9 gm IH BID [History] Nystatin Powder 15 gm [Nystop Powder 15 gm] 30 gm TP DAILY 08/19/18 [ History] Cefuroxime Axetil 500 mg [Ceftin 500 mg] 500 mg PO DAILY 09/17/18 [History] Clindamycin Phosphate 1 ea INTRAVAGIN UD 09/17/18 [History] Hx Tetanus, Diphtheria Vaccination/Date Given: No Hx Influenza Vaccination/Date Given: Yes Hx Pneumococcal Vaccination/Date Given: No - Review of Systems Constitutional: Malaise Respiratory: No Symptoms Cardiac: No Symptoms Abdominal/Gastrointestinal: Nausea All Other Systems: Reviewed and Negative - Past Medical History Pertinent Past Medical History: Yes Neurological History: Migraines ENT History: Cataracts, Other Cardiac History: No Pertinent History Respiratory History: Bronchitis, COPD, Other Endocrine Medical History: Hypothyroidism, Other Musculoskeletal History: Arthritis, Degenerative Disk Disease, Osteoarthritis, Other GI Medical History: GERD, Irritable Bowel, Ulcer, Other History: Other Psycho-Social History: Anxiety Female Reproductive Disorders: Other Other Medical History: Recurrent UTI,urine kidney/bladder problems recurrent. 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 TRACHEA MALASIA - Past Surgical History Past Surgical History: Yes Neuro Surgical History: No Pertinent History Cardiac: No Pertinent History Respiratory: No Pertinent History Gastrointestinal: Bowel Surgery, Cholecystectomy, Colon Resection, Hernia Repair Genitourinary: Other Musculoskeletal: No Pertinent History Female Surgical History: Hysterectomy Other Surgical History: COLONOSCOPIES, EGDs. Total colectomy. FEEDING TUBE FOR 4 YEARS, stretches of bladder and urethra, bowel obstructions x2, lithotripsy. bronch on 1320 - Social History Smoking Status: Never smoker Exposure to second hand smoke: No Alcohol Use: None Drug Use: none Patient Lives Alone: Yes Significant Family History: no pertinent family hx - Female History Hx Last Menstrual Period: hysterectomy Hx Now: No - Nursing Vital Signs Nursing Vital Signs: Initial Vital Signs Temperature 98.1 F 09/18/18 13:45 Pulse Rate 92 H 09/18/18 13:45 Respiratory Rate 22 09/18/18 13:45 O2 Sat by Pulse Oximetry 98 09/18/18 13:45 Pain Scale Pain Intensity 10 - Physical Exam General Appearance: mild distress, alert (slightly slurred speach) Eye Exam: PERRL/EOMI Ears, Nose, Throat Exam: pharynx normal, moist mucous membranes Neck Exam: normal inspection, supple (Chin to chest OK) Respiratory Exam: normal breath sounds, lungs clear Cardiovascular Exam: regular rate/rhythm, normal heart sounds Gastrointestinal/Abdominal Exam: soft, normal bowel sounds, No tenderness 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 (Responds appropriately to questions/interactive), 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, cooperative SpO2 Interpretation: normal SpO2: 99 O2 Delivery: Room Air - Course Nursing assessment & vital signs reviewed: Yes Ordered Tests: Medication Summary Discontinued Medications Generic Name Dose Route Start Last Admin Trade Name Brendonq PRN Reason Stop Dose Admin Diphenhydramine HCl 50 mg 09/18/18 14:38 09/18/18 15:03 Benadryl 50 Mg/Ml IM 09/18/18 14:39 50 mg STAT ONE Administration Diphenhydramine HCl Confirm 09/18/18 15:00 Benadryl 50 Mg/Ml Administered 09/18/18 15:01 Dose 50 mg .ROUTE .STK-MED ONE Promethazine HCl 25 mg 09/18/18 14:39 09/18/18 15:03 Phenergan 25 Mg Inj IM 09/18/18 14:40 25 mg STAT ONE Administration Promethazine HCl Confirm 09/18/18 15:00 Phenergan 25 Mg Inj Administered 09/18/18 15:01 Dose 25 mg .ROUTE .STK-MED ONE - Departure Departure Disposition: Home Clinical Impression: Headache Qualifiers: Headache type: unspecified Headache chronicity pattern: chronic headache Intractability: not intractable Qualified Code(s): R51 - Headache Condition: Stable Critical Care Time: No Referrals: PAWEL JAMIL [Primary Care Provider] - Additional Instructions: Must follow up with primary care for appropriate treatment/control of your chronic headaches
== END 2018-09-18 15:52 | disposition home or self-care (01) ==
LOC: ED 13:32
DX: R51 Headache (principal)
CPT/HCPCS: 96372; 99284; J1200; J2550

== ENCOUNTER 2018-11-21 16:04 | Emergency (ER) | payer MEDICARE ==
[2018-11-21 16:24] VITALS: PULSE 94; O2SAT 99
[2018-11-21] MEDS ORDERED: DEMEROL 25MG SYRINGE IM ONE (16:46)
--- NOTE | 2018-11-21 16:46 | ERPHSYRPT ---
- History of Present Illness Time Seen by Provider: 11/21/18 16:46 Source: patient Exam Limitations: no limitations Patient Subjective Stated Complaint: PT states "I went to the chiropractor today and I went and had blood drawn this morning. I have had this migraine for the past week and it will not go away, I usually come here and they give me 3 shots and I go home." Triage Nursing Assessment: Pt presented alert and oriented X 3, skin pwd. Pt ambulates with an upright steady gait, able to speak in clear full sentences PT in no apparent respiratory distress. Physician History: 63 y/o white female presents with migraine headache for a week. similar sx as 09/17 and 09/18/18. not the worst headache she has ever had. pt states the regimen 09/17 worked well for her. it included demerol, phenergan and benadryl. pt has a ride home. pt denies head injury. pt came into ED after going to chiropractor and getting labs drawn. Timing/Duration: week(s) (1), worse Quality: aching Head Pain Location: global Severity of Pain-Max: moderate Severity of Pain-Current: moderate Recent Head Trauma: no recent headache/trauma, frequent headaches, chronic headaches Modifying Factors: Improves With: exposure to light, noise Associated Symptoms: denies symptoms Previous symptoms: same symptoms as today Allergies/Adverse Reactions: codeine Allergy (Mild, Verified 09/18/18 14:34) Rash MAKES SICK nitrofurantoin [From Macrobid] Allergy (Verified 09/18/18 14:34) sumatriptan [From Imitrex] Allergy (Verified 09/18/18 14:34) sumatriptan succinate [From Imitrex] Allergy (Verified 09/18/18 14:34) morphine Adverse Reaction (Severe, Verified 09/18/18 14:34) Headache MIGRAINES hydrocodone bitartrate [From Vicodin] Adverse Reaction (Mild, Verified 09/18/18 14:34) Vomiting hydromorphone [From Dilaudid] Adverse Reaction (Mild, Verified 11/21/18 16:29) pt states makes heache worse. fentanyl Adverse Reaction (Verified 09/18/18 14:34) Home Medications: Alprazolam 1 mg [Xanax 1 mg] 2 mg PO BID 02/17/13 [History] Polyethylene Glycol 3350 17 gm [Miralax Powder 17GM PACKET] 34 gm PO TID 03/01 [History] Sennosides/Docusate Sodium [Senokot-S Tablet] 2 tab PO BID 04/25/15 [History] Promethazine HCl 25 mg [Phenergan 25 mg] 25 mg PO Q4HPRN PRN 05/11/15 [ History] Cetirizine HCl/Pseudoephedrine [Zyrtec-D Tablet] 0.5 each PO DAILY 02/03/16 [ History] Aspirin 81 mg PO DAILY 09/11/16 [History] Oxycodone HCl 10 mg PO DAILY 12/16/16 [History] Levothyroxine Sodium 50 Mcg [Synthroid 50 Mcg] 50 mcg PO DAILY 07/06/17 [ History] Linaclotide [Linzess] 290 mcg PO DAILY 10/07/17 [History] Phenazopyridine HCl 200 mg [Pyridium 200 mg] 200 mg PO BIDPRN PRN [History] Omeprazole 40 mg DAILY 12/13/17 [History] Naloxegol Oxalate [Movantik] 25 mg PO DAILY 03/10/18 [History] Estrogens,Conjugated [Premarin] 0.625 mg PO UD 06/02/18 [History] Rizatriptan Benzoate [Maxalt] 10 mg PO BID PRN PRN 06/23/18 [History] Glycopyrrolate/Formoterol Fum [Bevespi Aerosphere Inhaler] 5.9 gm IH BID [History] Nystatin Powder 15 gm [Nystop Powder 15 gm] 30 gm TP DAILY 08/19/18 [ History] Hx Tetanus, Diphtheria Vaccination/Date Given: Yes Hx Influenza Vaccination/Date Given: Yes Hx Pneumococcal Vaccination/Date Given: Yes Immunizations Up to Date: Yes - Review of Systems Constitutional: No Symptoms Eyes: No Symptoms Ears, Nose, & Throat: No Symptoms Respiratory: No Symptoms Cardiac: No Symptoms Abdominal/Gastrointestinal: No Symptoms Genitourinary Symptoms: No Symptoms Musculoskeletal: No Symptoms Skin: No Symptoms Neurological: Headache Psychological: No Symptoms Endocrine: No Symptoms Hematologic/Lymphatic: No Symptoms Immunological/Allergic: No Symptoms All Other Systems: Reviewed and Negative - Past Medical History Pertinent Past Medical History: Yes Neurological History: Migraines ENT History: Cataracts, Other Cardiac History: No Pertinent History Respiratory History: Bronchitis, COPD, Other Endocrine Medical History: Hypothyroidism, Other Musculoskeletal History: Arthritis, Degenerative Disk Disease, Osteoarthritis, Other GI Medical History: GERD, Irritable Bowel, Ulcer, Other History: Other Psycho-Social History: Anxiety Female Reproductive Disorders: Other Other Medical History: Recurrent UTI,urine kidney/bladder problems recurrent. 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 TRACHEA MALASIA - Past Surgical History Past Surgical History: Yes Neuro Surgical History: No Pertinent History Cardiac: No Pertinent History Respiratory: No Pertinent History Gastrointestinal: Bowel Surgery, Cholecystectomy, Colon Resection, Hernia Repair Genitourinary: Other Musculoskeletal: No Pertinent History Female Surgical History: Hysterectomy Other Surgical History: COLONOSCOPIES, EGDs. Total colectomy. FEEDING TUBE FOR 4 YEARS, stretches of bladder and urethra, bowel obstructions x2, lithotripsy. bronch on 1320 - Social History Smoking Status: Never smoker Exposure to second hand smoke: No Alcohol Use: None Drug Use: none Patient Lives Alone: Yes Significant Family History: no pertinent family hx - Female History Hx Now: No - Nursing Vital Signs Nursing Vital Signs: Initial Vital Signs Temperature 98.8 F 11/21/18 16:19 Pulse Rate 94 H 11/21/18 16:19 Respiratory Rate 18 11/21/18 16:19 Blood Pressure 98/78 11/21/18 16:19 O2 Sat by Pulse Oximetry 99 11/21/18 16:19 Pain Scale Pain Intensity 8 - Physical Exam General Appearance: mild distress, alert, anxiety Eye Exam: PERRL/EOMI, eyes nml inspection Ears, Nose, Throat Exam: normal ENT inspection, moist mucous membranes Neck Exam: normal inspection, non-tender, supple, full range of motion Respiratory Exam: normal breath sounds, lungs clear, airway intact, No chest tenderness, No respiratory distress Gastrointestinal/Abdominal Exam: No tenderness Back Exam: normal inspection, normal range of motion, No CVA tenderness, No vertebral tenderness Extremity Exam: normal inspection, normal range of motion, pelvis stable 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, 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, cooperative food service aide Exam: normal hearing, normal speech, PERRL, tongue midline Coordination/Gait Exam: normal finger to nose, normal gait Motor/Sensory Exam: no motor deficit, no sensory deficit Skin Exam: normal color, warm, dry Lymphatic Exam: No adenopathy SpO2 Interpretation: normal SpO2: 99 O2 Delivery: Room Air - Course Nursing assessment & vital signs reviewed: Yes Ordered Tests: Medication Summary Discontinued Medications Generic Name Dose Route Start Last Admin Trade Name Elton PRN Reason Stop Dose Admin Diphenhydramine HCl 50 mg 11/21/18 16:47 11/21/18 16:56 Benadryl 50 Mg/Ml IM 11/21/18 16:48 50 mg STAT ONE Administration Diphenhydramine HCl Confirm 11/21/18 16:51 Benadryl 50 Mg/Ml Administered 11/21/18 16:52 Dose 50 mg .ROUTE .STK-MED ONE Meperidine HCl 25 mg 11/21/18 16:46 11/21/18 16:56 Demerol 25mg Syringe IM 11/21/18 16:47 25 mg STAT ONE Administration Meperidine HCl Confirm 11/21/18 16:51 Demerol 25mg Syringe Administered 11/21/18 16:52 Dose 25 mg .ROUTE .STK-MED ONE Promethazine HCl 25 mg 11/21/18 16:47 11/21/18 16:56 Phenergan 25 Mg Inj IM 11/21/18 16:48 25 mg STAT ONE Administration Promethazine HCl Confirm 11/21/18 16:51 Phenergan 25 Mg Inj Administered 11/21/18 16:52 Dose 25 mg .ROUTE .STK-MED ONE - Progress Progress: improved Air Movement: poor Blood Culture(s) Obtained: No Antibiotics given: No Counseled pt/family regarding: diagnosis, need for follow-up - Departure Departure Disposition: Home Clinical Impression: Migraine headache Condition: Stable Critical Care Time: No Referrals: LLUVIA CHILDERS DO [Primary Care Provider] - Additional Instructions: follow up with primary doctor for further management.
[2018-11-21] MEDS ORDERED: BENADRYL 50 MG/ML IM ONE (16:47)
[2018-11-21] MEDS ORDERED: Phenergan 25 MG INJ IM ONE (16:47)
[2018-11-21] MEDS ORDERED: Phenergan 25 MG INJ ONE (16:51)
[2018-11-21] MEDS ORDERED: DEMEROL 25MG SYRINGE ONE (16:51)
[2018-11-21] MEDS ORDERED: BENADRYL 50 MG/ML ONE (16:51)
[2018-11-21 17:23] VITALS: BP 103/51
== END 2018-11-21 17:42 | disposition home or self-care (01) ==
LOC: ED 16:04
DX: G43.909 Migraine, unspecified, not intractable, without status migrainosus (principal)
CPT/HCPCS: 96372; 99284; J1200; J2175; J2550

== ENCOUNTER 2018-12-19 15:14 | Emergency (ER) | payer MEDICARE ==
--- NOTE | 2018-12-19 15:49 | ERPHSYRPT ---
- History of Present Illness Time Seen by Provider: 12/19/18 15:43 Source: patient Exam Limitations: no limitations Patient Subjective Stated Complaint: Pt states "I was told I have an infection in my urine and was given an appointment with Lesley arvizu and I could not make it because I was sick and went to my family physcian and she was out so I went to the clinic and they told me to come here." Triage Nursing Assessment: Pt presented alert and oriented X 3, skin pwd Pt ambulates with an unsteady gait, able to speak in full sentences. Pt slightly tachypneic but stated that is normal for her. Physician History: 63 y/o white female presents with a positive urine culture for esbl e coli. pt could not make her appt pcp. went to walk in clinic and they sent pt here. the urine c and s reveals sensitivity to meropenem. will give first dose here and have pt follow up with pcp to make arrangements for outpt iv tx Timing/Duration: today Activites at Onset: none Quality: burning Pain Radiation: suprapubic Severity of Pain-Max: mild Severity of Pain-Current: mild Sexual intercourse history: non-contributory Modifying Factors: Improves With: nothing Associated Symptoms: denies symptoms Allergies/Adverse Reactions: codeine Allergy (Mild, Verified 09/18/18 14:34) Rash MAKES SICK nitrofurantoin [From Macrobid] Allergy (Verified 09/18/18 14:34) sumatriptan [From Imitrex] Allergy (Verified 09/18/18 14:34) sumatriptan succinate [From Imitrex] Allergy (Verified 09/18/18 14:34) morphine Adverse Reaction (Severe, Verified 09/18/18 14:34) Headache MIGRAINES hydrocodone bitartrate [From Vicodin] Adverse Reaction (Mild, Verified 09/18/18 14:34) Vomiting hydromorphone [From Dilaudid] Adverse Reaction (Mild, Verified 11/21/18 16:29) pt states makes heache worse. fentanyl Adverse Reaction (Verified 09/18/18 14:34) Home Medications: Alprazolam 1 mg [Xanax 1 mg] 2 mg PO BID 02/17/13 [History] Polyethylene Glycol 3350 17 gm [Miralax Powder 17GM PACKET] 34 gm PO TID 03/01 [History] Sennosides/Docusate Sodium [Senokot-S Tablet] 2 tab PO BID 04/25/15 [History] Promethazine HCl 25 mg [Phenergan 25 mg] 25 mg PO Q4HPRN PRN 05/11/15 [ History] Cetirizine HCl/Pseudoephedrine [Zyrtec-D Tablet] 0.5 each PO DAILY 02/03/16 [ History] Aspirin 81 mg PO DAILY 09/11/16 [History] Oxycodone HCl 10 mg PO DAILY 12/16/16 [History] Levothyroxine Sodium 50 Mcg [Synthroid 50 Mcg] 50 mcg PO DAILY 07/06/17 [ History] Linaclotide [Linzess] 290 mcg PO DAILY 10/07/17 [History] Phenazopyridine HCl 200 mg [Pyridium 200 mg] 200 mg PO BIDPRN PRN [History] Omeprazole 40 mg DAILY 12/13/17 [History] Naloxegol Oxalate [Movantik] 25 mg PO DAILY 03/10/18 [History] Estrogens,Conjugated [Premarin] 0.625 mg PO UD 06/02/18 [History] Rizatriptan Benzoate [Maxalt] 10 mg PO BID PRN PRN 06/23/18 [History] Glycopyrrolate/Formoterol Fum [Bevespi Aerosphere Inhaler] 5.9 gm IH BID [History] Nystatin Powder 15 gm [Nystop Powder 15 gm] 30 gm TP DAILY 08/19/18 [ History] Hx Tetanus, Diphtheria Vaccination/Date Given: Yes Hx Influenza Vaccination/Date Given: Yes Hx Pneumococcal Vaccination/Date Given: Yes - Review of Systems Constitutional: No Symptoms Eyes: No Symptoms Ears, Nose, & Throat: No Symptoms Respiratory: No Symptoms Cardiac: No Symptoms Abdominal/Gastrointestinal: No Symptoms Genitourinary Symptoms: Dysuria Musculoskeletal: No Symptoms Skin: No Symptoms Neurological: No Symptoms Psychological: No Symptoms Endocrine: No Symptoms Hematologic/Lymphatic: No Symptoms Immunological/Allergic: No Symptoms All Other Systems: Reviewed and Negative - Past Medical History Pertinent Past Medical History: Yes Neurological History: Migraines ENT History: Cataracts, Other Cardiac History: No Pertinent History Respiratory History: Bronchitis, COPD, Other Endocrine Medical History: Hypothyroidism, Other Musculoskeletal History: Arthritis, Degenerative Disk Disease, Osteoarthritis, Other GI Medical History: GERD, Irritable Bowel, Ulcer, Other History: Other Psycho-Social History: Anxiety Female Reproductive Disorders: Other Other Medical History: Recurrent UTI,urine kidney/bladder problems recurrent. 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 TRACHEA MALASIA - Past Surgical History Past Surgical History: Yes Neuro Surgical History: No Pertinent History Cardiac: No Pertinent History Respiratory: No Pertinent History Gastrointestinal: Bowel Surgery, Cholecystectomy, Colon Resection, Hernia Repair Genitourinary: Other Musculoskeletal: No Pertinent History Female Surgical History: Hysterectomy Other Surgical History: COLONOSCOPIES, EGDs. Total colectomy. FEEDING TUBE FOR 4 YEARS, stretches of bladder and urethra, bowel obstructions x2, lithotripsy. bronch on 1320 - Social History Smoking Status: Never smoker Exposure to second hand smoke: No Alcohol Use: None Drug Use: none Patient Lives Alone: Yes Significant Family History: no pertinent family hx - Female History Hx Now: No - Nursing Vital Signs Nursing Vital Signs: Initial Vital Signs Temperature 98.6 F 12/19/18 15:24 Pulse Rate 98 H 12/19/18 15:24 Respiratory Rate 22 12/19/18 15:24 Blood Pressure 117/78 12/19/18 15:24 O2 Sat by Pulse Oximetry 98 12/19/18 15:24 Pain Scale Pain Intensity 6 - Physical Exam General Appearance: no apparent distress Eye Exam: PERRL/EOMI Ears, Nose, Throat Exam: normal ENT inspection Neck Exam: normal inspection Respiratory Exam: normal breath sounds Cardiovascular Exam: regular rate/rhythm Gastrointestinal/Abdomen Exam: tenderness (mild suprapubic tenderness), No guarding, No rebound Pelvic Exam: not done Rectal Exam: not done Back Exam: normal inspection, normal range of motion, No CVA tenderness, No vertebral tenderness Extremity Exam: normal inspection, normal range of motion, pelvis stable Neurologic Exam: alert, 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, cooperative, medical manager II-XII nml as tested SpO2: 98 - Course Nursing assessment & vital signs reviewed: Yes - Progress Progress: unchanged Air Movement: good Blood Culture(s) Obtained: No Antibiotics given: Yes Counseled pt/family regarding: lab results, diagnosis, need for follow-up - Departure Departure Disposition: Home Clinical Impression: UTI due to extended-spectrum beta lactamase (ESBL) producing Escherichia coli Condition: Stable Critical Care Time: No Referrals: LLUVIA CHILDERS DO [Primary Care Provider] - Additional Instructions: drink plenty of fluids. follow up with infusion clinic for further management
[2018-12-19] MEDS ORDERED: Merrem 1 GM 1 G in Sodium Chloride 100ML MINI-BAG PLUS 100 ML IV STA (15:50)
[2018-12-19] MEDS ORDERED: Merrem 1 GM IV ONE (15:55)
[2018-12-19] MEDS ORDERED: Sodium Chloride 0.9% 100 ML IVPB 100 ML IV ONE (15:55)
[2018-12-19 15:58] VITALS: O2SAT 96
[2018-12-19] MEDS ORDERED: Invanz 1 GM*** 1 G in Sodium Chloride 100ML MINI-BAG PLUS 100 ML IV STA (16:04)
[2018-12-19 16:08] LABS: Appearance SLIGHTLY CLOUDY (CLEAR); Bilirubin SMALL (NEGATIVE); Blood NEGATIVE Ery/ul (0-5); Epithelial Cells RARE /HPF (FEW); Glucose NEGATIVE (NEGATIVE); Ketones TRACE (NEGATIVE); Leukocyte Esterase SMALL (NEGATIVE); Mucus SLIGHT /HPF (NEGATIVE); Nitrite NEGATIVE (NEGATIVE); Protein,Urine Dip 30 (Negative); Specific Gravity 1.032 (1.005-1.025); Urobilinogen NEGATIVE mg/dL (0-1)
[2018-12-19] MEDS ORDERED: Zofran 4 MG/2 ML VIAL IV ONE (16:23)
[2018-12-19] MEDS ORDERED: Sodium Chloride 0.9% 1000 ML 1,000 ML IV STA (16:23)
[2018-12-19 16:40] VITALS: BP 89/59; PULSE 74
== END 2018-12-19 16:59 | disposition home or self-care (01) ==
LOC: ED 15:14
DX: N39.0 Urinary tract infection, site not specified (principal); Z45.2 Encounter for adjustment and management of vascular access device
CPT/HCPCS: 81001; 87086; 96365; 96523; 99284; J1335; J1642

== ENCOUNTER 2019-01-19 00:33 | Emergency (ER) | payer MEDICARE ==
[2019-01-19] MEDS ORDERED: TORAdol 30 mg Injection IV ONE (01:37)
--- NOTE | 2019-01-19 01:47 | ERPHSYRPT ---
- History of Present Illness Time Seen by Provider: 01/19/19 00:36 Source: patient Exam Limitations: no limitations Patient Subjective Stated Complaint: pt states she has had a headache since the wednesday before . states headache starts in the front of her head and radiates around to the back of her head and down her neck into her shoulders. pt states she also has pain in her rt lower leg and foot starting today. Triage Nursing Assessment: pt alert and oriented, answers questions approp. pt arrive per ambulance. transfers to stretcher per self. respirations nonlabored with lungs cta. skin pink warm and dry. pupils equal and reactive. bilat upper ext streength equal and wnl. lt lower leg pt reports tingling and tenderness. mild weakness to lt lower. cap refill and pedal pulse wnl. Physician History: CHRONIC HX OF HEADACHES-- RELATED TO MIGRAINE HISTORY AND CHRONIC DJD--C,T,L SPINE Timing/Duration: week(s) (2-3), intermittent Quality: aching, dullness, pressure, tightness Head Pain Location: occipital, parietal Severity of Pain-Max: mild Severity of Pain-Current: moderate Recent Head Trauma: no recent headache/trauma, frequent headaches Modifying Factors: Improves With: medication Associated Symptoms: fatigue, light-headedness, nausea/vomiting, nasal congestion, neck pain, numbness in legs/feet, No trouble walking, No vision changes, No visual disturbance Previous symptoms: same symptoms as today Allergies/Adverse Reactions: sumatriptan [From Imitrex] Allergy (Intermediate, Verified 01/19/19 00:50) Rash codeine Allergy (Mild, Verified 01/19/19 00:50) Rash MAKES SICK nitrofurantoin [From Macrobid] Allergy (Unknown, Verified 01/19/19 00:50) sumatriptan succinate [From Imitrex] Allergy (Verified 01/19/19 00:50) morphine Adverse Reaction (Severe, Verified 01/19/19 00:50) Headache MIGRAINES fentanyl Adverse Reaction (Intermediate, Verified 01/19/19 00:50) Headache hydrocodone bitartrate [From Vicodin] Adverse Reaction (Mild, Verified 01/19/19 00:50) Vomiting hydromorphone [From Dilaudid] Adverse Reaction (Mild, Verified 01/19/19 00:50) pt states makes heache worse. Home Medications: Alprazolam 1 mg [Xanax 1 mg] 2 mg PO BID 02/17/13 [History] Polyethylene Glycol 3350 17 gm [Miralax Powder 17GM PACKET] 34 gm PO TID 03/01 [History] Sennosides/Docusate Sodium [Senokot-S Tablet] 2 tab PO DAILY 04/25/15 [History] Promethazine HCl 25 mg [Phenergan 25 mg] 25 mg PO Q4HPRN PRN 05/11/15 [ History] Cetirizine HCl/Pseudoephedrine [Zyrtec-D Tablet] 0.5 each PO DAILY 02/03/16 [ History] Aspirin 81 mg PO DAILY 09/11/16 [History] Levothyroxine Sodium 50 Mcg [Synthroid 50 Mcg] 50 mcg PO DAILY 07/06/17 [ History] Linaclotide [Linzess] 290 mcg PO DAILY 10/07/17 [History] Rizatriptan Benzoate [Maxalt] 10 mg PO BID PRN PRN 06/23/18 [History] Glycopyrrolate/Formoterol Fum [Bevespi Aerosphere Inhaler] 5.9 gm IH BID [History] Fluticasone Propionate [Flonase NASAL] 2 spray NS DAILY 01/19/19 [History] PANTOPRAZOLE 40 mg Tablet [Protonix 40MG Tablet] 40 mg PO QAM 01/19/19 [ History] Sodium Bicarbonate 325 mg PO BID 01/19/19 [History] Hx Tetanus, Diphtheria Vaccination/Date Given: Yes Hx Influenza Vaccination/Date Given: Yes Hx Pneumococcal Vaccination/Date Given: Yes Immunizations Up to Date: Yes - Review of Systems Constitutional: Fatigue Eyes: No Symptoms, Photophobia, No Eye Pain, No Eye Redness, No Double Vision Ears, Nose, & Throat: Nose Congestion, Mouth Pain, No Nose Discharge, No Sinus Drainage Respiratory: No Symptoms Cardiac: No Symptoms Abdominal/Gastrointestinal: Nausea, No Hematochezia, No Melena Genitourinary Symptoms: No Symptoms Musculoskeletal: Back Pain, Neck Pain, Joint Pain Skin: No Symptoms Neurological: Other (SCIATICA BILATERALLY) Psychological: Anxiety Endocrine: No Symptoms Hematologic/Lymphatic: No Symptoms Immunological/Allergic: No Symptoms All Other Systems: Reviewed and Negative - Past Medical History Pertinent Past Medical History: Yes Neurological History: Migraines ENT History: Cataracts, Other Cardiac History: No Pertinent History Respiratory History: Bronchitis, COPD, Other Endocrine Medical History: Hypothyroidism, Other Musculoskeletal History: Arthritis, Degenerative Disk Disease, Osteoarthritis, Other GI Medical History: GERD, Irritable Bowel, Ulcer, Other History: Other Psycho-Social History: Anxiety Female Reproductive Disorders: Other Other Medical History: Recurrent UTI,urine kidney/bladder problems recurrent. 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 TRACHEA MALASIA - Past Surgical History Past Surgical History: Yes Neuro Surgical History: No Pertinent History Cardiac: No Pertinent History Respiratory: No Pertinent History Gastrointestinal: Bowel Surgery, Cholecystectomy, Colon Resection, Hernia Repair Genitourinary: Other Musculoskeletal: No Pertinent History Female Surgical History: Hysterectomy Other Surgical History: COLONOSCOPIES, EGDs. Total colectomy. FEEDING TUBE FOR 4 YEARS, stretches of bladder and urethra, bowel obstructions x2, lithotripsy. bronch on 1320 - Social History Smoking Status: Never smoker Exposure to second hand smoke: No Alcohol Use: None Drug Use: none Patient Lives Alone: Yes Significant Family History: no pertinent family hx - Nursing Vital Signs Nursing Vital Signs: Initial Vital Signs Temperature 98.3 F 01/19/19 00:37 Pulse Rate 81 01/19/19 00:37 Respiratory Rate 18 01/19/19 00:37 Blood Pressure 109/69 01/19/19 00:37 O2 Sat by Pulse Oximetry 95 01/19/19 00:37 Pain Scale Pain Intensity 8 - Physical Exam General Appearance: mild distress Eye Exam: PERRL/EOMI, eyes nml inspection, photophobia, No scleral icterus, No pale conjunctivae Ears, Nose, Throat Exam: normal ENT inspection, TMs normal, pharynx normal, moist mucous membranes Neck Exam: other (POS: MODERATE DJD C-SPINE WITH DECREASED ROM POS: SUBOCCIPITAL TENDERNESS R>L), No meningismus Respiratory Exam: normal breath sounds, lungs clear, airway intact, No chest tenderness, No respiratory distress Cardiovascular Exam: regular rate/rhythm, No murmur, No gallop Gastrointestinal/Abdominal Exam: soft, normal bowel sounds, No tenderness, No distention, No guarding Back Exam: other (MODERATE DJD WITH STRAIGHTEN OF L-SPINE CURVATURE POS: TENDERNESS L5-S1 S/I JCT BILATERALLY R>L ) Extremity Exam: normal inspection, other (POS: STIFFNESS LARGE JOINTS LOWER EXTREMITIES ) 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, 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, cooperative, other (NEGATIVE PAST POINT // POS: 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, normal speech, PERRL, No abnormal eye position Coordination/Gait Exam: normal finger to nose Motor/Sensory Exam: no motor deficit Skin Exam: normal color Lymphatic Exam: No adenopathy SpO2: 95 - Course Nursing assessment & vital signs reviewed: Yes Ordered Tests: Active Orders 24 hr Category Date Time Status IV Insertion STAT Care 01/19/19 01:36 Active ABDOMEN 2 VIEW Stat Exams 01/19/19 02:21 Taken HEAD WITHOUT CONTRAST [CT] Stat Exams 01/19/19 02:09 Taken CBC W DIFF Stat Lab 01/19/19 02:10 Completed Medication Summary Generic Name Dose Route Start Last Admin Trade Name Freq PRN Reason Stop Dose Admin Heparin Sodium (Beef Lung) 500 units 01/19/19 03:02 01/19/19 03:04 Heparin Lock Flush 100 Units/Ml 5ml Syringe PORT FLUSH 02/18/19 03:01 500 units PRN PRN Administration IV PORT FLUSH Discontinued Medications Generic Name Dose Route Start Last Admin Trade Name Freq PRN Reason Stop Dose Admin Ketorolac Tromethamine 30 mg 01/19/19 01:37 01/19/19 01:51 Toradol 30 Mg Injection IV 01/19/19 01:38 30 mg STAT ONE Administration Ketorolac Tromethamine Confirm 01/19/19 01:49 Toradol 30 Mg Injection Administered 01/19/19 01:50 Dose 30 mg .ROUTE .[employer] ONE Lab/Rad Data: Laboratory Result Diagrams 01/19/19 02:10 Laboratory Results 01/19/19 Range/Units 02:10 WBC 4.0 (4.0-10.5) K/mm3 RBC 4.01 L (4.1-5.4) M/mm3 Hgb 12.5 (12.0-16.0) gm/dl Hct 37.6 (35-47) % MCV 93.8 (78-100) fl MCH 31.2 (26-32) pg MCHC 33.2 (32-36) g/dl RDW 13.8 (11.5-14.0) % Plt Count 166 (150-450) K/mm3 MPV 10.5 H (6-9.5) fl Gran % 58.1 (36.0-66.0) % Eos # (Auto) 0.07 (0-0.5) Absolute Lymphs (auto) 1.18 (1.0-4.6) Absolute Monos (auto) 0.40 (0.0-1.3) Lymphocytes % 29.6 (24.0-44.0) % Monocytes % 10.0 (0.0-12.0) % Eosinophils % 1.8 (0.00-5.0) % Basophils % 0.5 (0.0-0.4) % Absolute Granulocytes 2.32 (1.4-6.9) Basophils # 0.02 (0-0.4) - Progress Progress: improved Counseled pt/family regarding: lab results, need for follow-up, rad results - Departure Departure Disposition: Home, AMA Clinical Impression: Muscle tension headache, Occipital neuritis DJD (degenerative joint disease) of cervical spine Qualifiers: Spinal osteoarthritis complication: with myelopathy Qualified Code(s): M47.12 - Other spondylosis with myelopathy, cervical region Condition: Stable Critical Care Time: No Referrals: LLUVIA CHILDERS DO [Primary Care Provider] - Instructions: Headache, Adult (DC)
[2019-01-19] MEDS ORDERED: TORAdol 30 mg Injection ONE (01:49)
[2019-01-19 02:15] LABS: Absolute Neutrophil Ct (ANC) 2.32 (1.4-6.9); BASOPHIL % 0.5 % (0.0-0.4); Basophil (Absolute #) 0.02 (0-0.4); Eosinophil % 1.8 % (0.00-5.0); Eosinophil (Absolute #) 0.07 (0-0.5); Hematocrit 37.6 % (35-47); Hemoglobin 12.5 gm/dl (12.0-16.0); Lymphocyte (Absolute #) 1.18 (1.0-4.6); Lymphocytes % 29.6 % (24.0-44.0); Mean Cell Volume 93.8 fl (78-100); Mean Corpuscular Hemoglobin 31.2 pg (26-32); Mean Corpuscular Hgb Concent. 33.2 g/dl (32-36); Mean Platelet Volume 10.5 fl (6-9.5); Neutrophil % 58.1 % (36.0-66.0); Platelet Count 166 K/mm3 (150-450); Red Blood Count 4.01 M/mm3 (4.1-5.4); Red Cell Distribution Width 13.8 % (11.5-14.0)
[2019-01-19 03:14] VITALS: BP 104/71; PULSE 82
[2019-01-19 04:30] VITALS: O2SAT 95
--- NOTE | 2019-01-19 08:57 | XRAY ---
Indication: Constipation. Comparison: April 29, 2018. 2 views of the abdomen again nonacute and nonobstructed with stable pelvic phleboliths. Solid organs unremarkable. Osseous structures intact again with mild dextroscoliosis and L2-L3 degenerative changes. Lung bases clear with incidental right perihilar calcified nodes and partially visualized right Port-A-Cath. Impression: Nonacute abdomen with chronic features.
--- NOTE | 2019-01-19 08:58 | XRAY ---
Indication: Headache 1 week. Multiple contiguous axial images obtained through the head without contrast. Comparison: July 05, 2017. Again normal appearing brain parenchyma, ventricles, and bony calvarium. Visualized paranasal sinuses and mastoid air cells are clear. Impression: Again normal CT head without contrast exam. Comment: Preliminary interpretation was made by [facility]. No discrepancy. CT DI 56.33
== END 2019-01-19 04:36 | disposition left against medical advice (07) ==
LOC: ED 00:33
DX: G44.209 Tension-type headache, unspecified, not intractable (principal); Z79.899 Other long term (current) drug therapy; G58.8 Other specified mononeuropathies; M47.12 Other spondylosis with myelopathy, cervical region
CPT/HCPCS: 36000; 36415; 70450; 74021; 85025; 96374; 99284; J1642; J1885

== ENCOUNTER 2019-02-17 09:01 | Emergency (ER) | payer MEDICARE ==
[2019-02-17] MEDS ORDERED: Zofran 4 MG/2 ML VIAL IV STA (09:04)
[2019-02-17] MEDS ORDERED: Sodium Chloride 0.9% 1000 ML 1,000 ML IV STA (09:04)
[2019-02-17] MEDS ORDERED: Sodium Chloride 0.9% 1000 ML 1,000 ML ONE (09:16)
[2019-02-17 09:51] LABS: Absolute Neutrophil Ct (ANC) 3.71 (1.4-6.9); BASOPHIL % 0.4 % (0.0-0.4); Basophil (Absolute #) 0.02 (0-0.4); Eosinophil % 0.7 % (0.00-5.0); Eosinophil (Absolute #) 0.03 (0-0.5); Hematocrit 35.9 % (35-47); Hemoglobin 11.8 gm/dl (12.0-16.0); Lymphocyte (Absolute #) 0.49 (1.0-4.6); Mean Cell Volume 94.7 fl (78-100); Mean Corpuscular Hemoglobin 31.1 pg (26-32); Mean Corpuscular Hgb Concent. 32.9 g/dl (32-36); Monocyte (Absolute #) 0.21 (0.0-1.3); Monocytes % 4.7 % (0.0-12.0); Neutrophil % 83.2 % (36.0-66.0); Platelet Count 150 K/mm3 (150-450); Red Blood Count 3.79 M/mm3 (4.1-5.4); Red Cell Distribution Width 13.3 % (11.5-14.0); White Blood Count 4.5 K/mm3 (4.0-10.5)
[2019-02-17 09:53] LABS: MAGNESIUM 1.6 mg/dL (1.6-2.3)
[2019-02-17 09:55] LABS: ALBUMIN 3.8 g/dL (3.5-5.0); ANION GAP 11.4 MEQ/L (5-15); BILIRUBIN,TOTAL 0.6 mg/dL (0.2-1.3); Calcium 8.7 mg/dL (8.4-10.2); Potassium 4.1 mmol/L (3.5-5.1); Total Protein 7.1 g/dL (6.3-8.2)
[2019-02-17] MEDS ORDERED: Zofran 4 MG/2 ML VIAL ONE (10:00)
--- NOTE | 2019-02-17 10:08 | XRAY ---
Indication: Headache, fever, and vomiting. Multiple contiguous axial images obtained through the head without contrast. Comparison: January 23, 2019. Again normal appearing brain parenchyma, ventricles, and bony calvarium. Visualized paranasal sinuses and mastoid air cells are clear. Impression: Continued normal CT head without contrast exam.
--- NOTE | 2019-02-17 10:09 | XRAY ---
Indication: Fever and vomiting. Comparison: Arch 2018. Portable chest demonstrates new mild right base subsegmental atelectasis/scarring. Remaining heart, lungs, and bony thorax normal again with incidental right perihilar calcified nodes and right Port-A-Cath.
[2019-02-17 10:19] LABS: INFLUENZA A NEGATIVE (NEGATIVE); INFLUENZA B NEGATIVE (NEGATIVE); RESPIRATORY SYNCTIAL VIRUS NEGATIVE (Negative)
[2019-02-17] MEDS ORDERED: TORAdol 30 mg Injection IV ONE (10:25)
[2019-02-17] MEDS ORDERED: TORAdol 30 mg Injection ONE (10:42)
[2019-02-17] MEDS ORDERED: DEMEROL 50 MG IV ONE (10:43)
[2019-02-17] MEDS ORDERED: DEMEROL 50 MG ONE (10:45)
--- NOTE | 2019-02-17 11:23 | ERPHSYRPT ---
- History of Present Illness Time Seen by Provider: 02/17/19 09:20 Patient Subjective Stated Complaint: pt here for sorethroat, right ear ache, sore neck, aches, vomited today,no fever. pt has not felt well since wednesday. Triage Nursing Assessment: pt alert, resp easy, chest clear, abd soft, moves all ext well, no edema, no rash Physician History: patient is a 62-year-old female well known to the ER presents with a bad headache since Wednesday vomiting and pain in her back for head and neck she also thinks she might of had some fever. Timing/Duration: day(s) (5) Quality: stabbing, throbbing Head Pain Location: occipital Severity of Pain-Max: moderate Severity of Pain-Current: moderate Recent Head Trauma: chronic headaches Modifying Factors: Improves With: exposure to light Associated Symptoms: nausea/vomiting, sensitive to light Previous symptoms: same symptoms as today Allergies/Adverse Reactions: sumatriptan [From Imitrex] Allergy (Intermediate, Verified 02/17/19 09:12) Rash codeine Allergy (Mild, Verified 02/17/19 09:12) Rash MAKES SICK nitrofurantoin [From Macrobid] Allergy (Unknown, Verified 02/17/19 09:12) sumatriptan succinate [From Imitrex] Allergy (Verified 02/17/19 09:12) morphine Adverse Reaction (Severe, Verified 02/17/19 09:12) Headache MIGRAINES fentanyl Adverse Reaction (Intermediate, Verified 02/17/19 09:12) Headache hydrocodone bitartrate [From Vicodin] Adverse Reaction (Mild, Verified 02/17/19 09:12) Vomiting hydromorphone [From Dilaudid] Adverse Reaction (Mild, Verified 02/17/19 09:12) pt states makes heache worse. Home Medications: Alprazolam 1 mg [Xanax 1 mg] 2 mg PO BID 02/17/13 [History] Polyethylene Glycol 3350 17 gm [Miralax Powder 17GM PACKET] 34 gm PO TID 03/01 [History] Sennosides/Docusate Sodium [Senokot-S Tablet] 2 tab PO DAILY 04/25/15 [History] Promethazine HCl 25 mg [Phenergan 25 mg] 25 mg PO Q4HPRN PRN 05/11/15 [ History] Cetirizine HCl/Pseudoephedrine [Zyrtec-D Tablet] 0.5 each PO DAILY 02/03/16 [ History] Aspirin 81 mg PO DAILY 09/11/16 [History] Levothyroxine Sodium 50 Mcg [Synthroid 50 Mcg] 50 mcg PO DAILY 07/06/17 [ History] Linaclotide [Linzess] 290 mcg PO DAILY 10/07/17 [History] Rizatriptan Benzoate [Maxalt] 10 mg PO BID PRN PRN 06/23/18 [History] Glycopyrrolate/Formoterol Fum [Bevespi Aerosphere Inhaler] 5.9 gm IH BID [History] Fluticasone Propionate [Flonase NASAL] 2 spray NS DAILY 01/19/19 [History] PANTOPRAZOLE 40 mg Tablet [Protonix 40MG Tablet] 40 mg PO QAM 01/19/19 [ History] Sodium Bicarbonate 325 mg PO BID 01/19/19 [History] Hx Tetanus, Diphtheria Vaccination/Date Given: Yes Hx Influenza Vaccination/Date Given: Yes Hx Pneumococcal Vaccination/Date Given: No Immunizations Up to Date: Yes - Review of Systems Constitutional: No Fever, No Chills Eyes: No Symptoms Ears, Nose, & Throat: No Symptoms Respiratory: No Cough, No Dyspnea Cardiac: No Chest Pain, No Edema, No Syncope Abdominal/Gastrointestinal: No Abdominal Pain, No Nausea, No Vomiting, No Diarrhea Genitourinary Symptoms: No Dysuria Musculoskeletal: No Back Pain, No Neck Pain Skin: No Rash Neurological: Headache, No Dizziness, No Focal Weakness, No Sensory Changes Psychological: No Symptoms Endocrine: No Symptoms All Other Systems: Reviewed and Negative - Past Medical History Pertinent Past Medical History: Yes Neurological History: Migraines ENT History: Cataracts, Other Cardiac History: No Pertinent History Respiratory History: Bronchitis, COPD, Other Endocrine Medical History: Hypothyroidism, Other Musculoskeletal History: Arthritis, Degenerative Disk Disease, Osteoarthritis, Other GI Medical History: GERD, Irritable Bowel, Ulcer, Other History: Other Psycho-Social History: Anxiety Female Reproductive Disorders: Other Other Medical History: Recurrent UTI,urine kidney/bladder problems recurrent. 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 TRACHEA MALASIA - Past Surgical History Past Surgical History: Yes Neuro Surgical History: No Pertinent History Cardiac: No Pertinent History Respiratory: No Pertinent History Gastrointestinal: Bowel Surgery, Cholecystectomy, Colon Resection, Hernia Repair Genitourinary: Other Musculoskeletal: No Pertinent History Female Surgical History: Hysterectomy Other Surgical History: COLONOSCOPIES, EGDs. Total colectomy. FEEDING TUBE FOR 4 YEARS, stretches of bladder and urethra, bowel obstructions x2, lithotripsy. bronch on 1320 - Social History Smoking Status: Never smoker Exposure to second hand smoke: No Alcohol Use: None Drug Use: none Patient Lives Alone: Yes Significant Family History: no pertinent family hx - Female History Hx Last Menstrual Period: post - Nursing Vital Signs Nursing Vital Signs: Initial Vital Signs Temperature 97.9 F 02/17/19 09:05 Pulse Rate 82 02/17/19 09:05 Respiratory Rate 16 02/17/19 09:05 Blood Pressure 104/68 02/17/19 09:05 O2 Sat by Pulse Oximetry 97 02/17/19 09:05 Pain Scale Pain Intensity 10 - Physical Exam General Appearance: no apparent distress Eye Exam: PERRL/EOMI Ears, Nose, Throat Exam: normal ENT inspection, moist mucous membranes Neck Exam: normal inspection, supple, full range of motion, No meningismus Respiratory Exam: normal breath sounds, lungs clear Cardiovascular Exam: regular rate/rhythm, normal heart sounds Gastrointestinal/Abdominal Exam: soft, No tenderness, No distention Back Exam: normal inspection, normal range of motion 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, 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, 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, PERRL, No facial droop Coordination/Gait Exam: normal cerebellar function Motor/Sensory Exam: no motor deficit, no sensory deficit Skin Exam: normal color, warm, dry, No rash SpO2: 97 - Course Nursing assessment & vital signs reviewed: Yes - CT Exams Head CT Interpretation: Negative Ordered Tests: Active Orders 24 hr Category Date Time Status IV Insertion STAT Care 02/17/19 09:04 Active CHEST 1 VIEW (PORTABLE) Stat Exams 02/17/19 09:05 Completed HEAD WITHOUT CONTRAST [CT] Stat Exams 02/17/19 09:07 Completed AMYLASE Stat Lab 02/17/19 09:23 Completed BLOOD CULTURE Stat Lab 02/17/19 09:35 Received CBC W DIFF Stat Lab 02/17/19 09:23 Completed CMP Stat Lab 02/17/19 09:23 Completed Lactic Acid Stat Lab 02/17/19 09:25 Completed MAGNESIUM Stat Lab 02/17/19 09:23 Completed TROPONIN Q3H Lab 02/17/19 09:23 Completed TROPONIN Q3H Lab 02/17/19 12:15 Ordered TROPONIN Q3H Lab 02/17/19 15:15 Ordered TROPONIN Q3H Lab 02/17/19 18:15 Ordered TROPONIN Q3H Lab 02/17/19 21:15 Ordered UA W/RFX UR CULTURE Stat Lab 02/17/19 09:05 Uncollected Medication Summary Discontinued Medications Generic Name Dose Route Start Last Admin Trade Name Freq PRN Reason Stop Dose Admin Sodium Chloride 1,000 mls @ 999 mls/hr 02/17/19 09:04 02/17/19 10:48 Sodium Chloride 0.9% 1000 Ml IV 02/17/19 10:04 Infused .Q1H1M STA Infusion Sodium Chloride Confirm 02/17/19 09:16 Sodium Chloride 0.9% 1000 Ml Administered 02/17/19 09:17 Dose 1,000 mls @ ud .ROUTE .STK-MED ONE Ketorolac Tromethamine 30 mg 02/17/19 10:25 02/17/19 10:42 Toradol 30 Mg Injection IV 02/17/19 10:26 30 mg STAT ONE Administration Ketorolac Tromethamine Confirm 02/17/19 10:42 Toradol 30 Mg Injection Administered 02/17/19 10:43 Dose 30 mg .ROUTE .STK-MED ONE Meperidine HCl 50 mg 02/17/19 10:43 02/17/19 10:46 Demerol 50 Mg IV 02/17/19 10:44 50 mg STAT ONE Administration Meperidine HCl Confirm 02/17/19 10:45 Demerol 50 Mg Administered 02/17/19 10:46 Dose 50 mg .ROUTE .STK-MED ONE Ondansetron HCl 4 mg 02/17/19 09:04 02/17/19 10:01 Zofran 4 Mg/2 Ml Vial IV 02/17/19 09:05 4 mg STAT STA Administration Ondansetron HCl Confirm 02/17/19 10:00 Zofran 4 Mg/2 Ml Vial Administered 02/17/19 10:01 Dose 4 mg .ROUTE .STK-MED ONE Lab/Rad Data: Laboratory Result Diagrams 02/17/19 09:23 02/17/19 09:23 Laboratory Results 02/17/19 02/17/19 02/17/19 Range/Units 09:35 09:25 09:23 WBC (4.0-10.5) K/mm3 RBC (4.1-5.4) M/mm3 Hgb (12.0-16.0) gm/dl Hct (35-47) % MCV (78-100) fl MCH (26-32) pg MCHC (32-36) g/dl RDW (11.5-14.0) % Plt Count (150-450) K/mm3 MPV (6-9.5) fl Gran % (36.0-66.0) % Eos # (Auto) (0-0.5) Absolute Lymphs (auto) (1.0-4.6) Absolute Monos (auto) (0.0-1.3) Lymphocytes % (24.0-44.0) % Monocytes % (0.0-12.0) % Eosinophils % (0.00-5.0) % Basophils % (0.0-0.4) % Absolute Granulocytes (1.4-6.9) Basophils # (0-0.4) Sodium (137-145) mmol/L Potassium (3.5-5.1) mmol/L Chloride (98-107) mmol/L Carbon Dioxide (22-30) mmol/L Anion Gap (5-15) MEQ/L BUN (7-17) mg/dL Creatinine (0.52-1.04) mg/dL Estimated GFR ML/MIN Glucose (74-106) mg/dL Lactic Acid 1.6 (0.4-2.0) Calcium (8.4-10.2) mg/dL Magnesium (1.6-2.3) mg/dL Total Bilirubin (0.2-1.3) mg/dL AST (14-36) U/L ALT (0-35) U/L Alkaline Phosphatase (38-126) U/L Troponin I < 0.012 (0.000-0.034) ng/mL Serum Total Protein (6.3-8.2) g/dL Albumin (3.5-5.0) g/dL Amylase (30-110) U/L Influenza Type A Ag NEGATIVE (NEGATIVE) Influenza Type B Ag NEGATIVE (NEGATIVE) RSV (PCR) NEGATIVE (Negative) Group A Strep Antibody NEGATIVE (NEGATIVE) Slides for Path Review 02/17/19 02/17/19 02/17/19 Range/Units 09:23 09:23 09:23 WBC 4.5 (4.0-10.5) K/mm3 RBC 3.79 L (4.1-5.4) M/mm3 Hgb 11.8 L (12.0-16.0) gm/dl Hct 35.9 (35-47) % MCV 94.7 (78-100) fl MCH 31.1 (26-32) pg MCHC 32.9 (32-36) g/dl RDW 13.3 (11.5-14.0) % Plt Count 150 (150-450) K/mm3 MPV 11.0 H (6-9.5) fl Gran % 83.2 H (36.0-66.0) % Eos # (Auto) 0.03 (0-0.5) Absolute Lymphs (auto) 0.49 L (1.0-4.6) Absolute Monos (auto) 0.21 (0.0-1.3) Lymphocytes % 11.0 L (24.0-44.0) % Monocytes % 4.7 (0.0-12.0) % Eosinophils % 0.7 (0.00-5.0) % Basophils % 0.4 (0.0-0.4) % Absolute Granulocytes 3.71 (1.4-6.9) Basophils # 0.02 (0-0.4) Sodium 140 (137-145) mmol/L Potassium 4.1 (3.5-5.1) mmol/L Chloride 109 H (98-107) mmol/L Carbon Dioxide 23 (22-30) mmol/L Anion Gap 11.4 (5-15) MEQ/L BUN 18 H (7-17) mg/dL Creatinine 1.00 (0.52-1.04) mg/dL Estimated GFR 59.5 ML/MIN Glucose 143 H (74-106) mg/dL Lactic Acid (0.4-2.0) Calcium 8.7 (8.4-10.2) mg/dL Magnesium 1.6 (1.6-2.3) mg/dL Total Bilirubin 0.60 (0.2-1.3) mg/dL AST 23 (14-36) U/L ALT 14 (0-35) U/L Alkaline Phosphatase 78 (38-126) U/L Troponin I (0.000-0.034) ng/mL Serum Total Protein 7.1 (6.3-8.2) g/dL Albumin 3.8 (3.5-5.0) g/dL Amylase 72 (30-110) U/L Influenza Type A Ag (NEGATIVE) Influenza Type B Ag (NEGATIVE) RSV (PCR) (Negative) Group A Strep Antibody (NEGATIVE) Slides for Path Review - Progress Progress: improved Air Movement: good Blood Culture(s) Obtained: No Antibiotics given: No - Departure Departure Disposition: Home Clinical Impression: Viral syndrome, Headache Condition: Stable Critical Care Time: No Referrals: LLUVIA CHILDERS DO [Primary Care Provider] - Instructions: Headache, Adult (DC) Prescriptions: Ketorolac Tromethamine [Toradol] 10 mg PO Q6H 8 Days #30 tablet Methylprednisolone Packet [Medrol Dosepack] 4 mg PO UD #1 packet
[2019-02-17 11:44] VITALS: BP 105/59; PULSE 70; O2SAT 96
== END 2019-02-17 11:44 | disposition home or self-care (01) ==
LOC: ED 09:01
DX: B34.9 Viral infection, unspecified (principal); R51 Headache; R11.2 Nausea with vomiting, unspecified; Z79.899 Other long term (current) drug therapy
CPT/HCPCS: 36000; 36415; 70450; 71045; 80053; 82150; 83605; 83735; 84484; 85025; 87040; 87631; 87651; 96360; 96374; 96375; 99284; J1642; J1885; J2175; J2405

== ENCOUNTER 2019-02-22 13:30 | Emergency (ER) | payer MEDICARE ==
[2019-02-22] MEDS ORDERED: Sodium Chloride 0.9% 1000 ML 1,000 ML IV STA (14:39)
--- NOTE | 2019-02-22 14:39 | ERPHSYRPT ---
- History of Present Illness Time Seen by Provider: 02/22/19 14:19 Historian: patient Patient Subjective Stated Complaint: Abdominal pain Triage Nursing Assessment: Patient ambulated back to ED and transferred self to bed. Patient A+O X3. Patient's skin pink, warm and dry. Patient complains of abdominal pain that has increased since yesterday. Patient states pain is constant sharp pain 08/24. Patient states her bowels have not moved since 2019. Patient's abdomen distended and hard with hypo BS X 4. Physician History: 63 yo with h/o chronic abdominal pain with colectomy because of the obstructions and multiple patial SBO afterwards who is getting steroids for URI symptoms is here with increased abdominal pain with distention. no BM for the last 5 days Timing/Duration: yesterday, gradual onset, worse Activities at Onset: rest Quality: sharpness Abdominal Pain Onset Location: generalized abdomen Pain Radiation: no radiation Severity of Pain-Max: moderate Severity of Pain-Current: moderate Modifying Factors: Improves With: movement Associated Symptoms: No chest pain, No loss of appetite Previous symptoms: same symptoms as today Allergies/Adverse Reactions: sumatriptan [From Imitrex] Allergy (Intermediate, Verified 02/22/19 14:14) Rash codeine Allergy (Mild, Verified 02/22/19 14:14) Rash MAKES SICK nitrofurantoin [From Macrobid] Allergy (Unknown, Verified 02/22/19 14:14) sumatriptan succinate [From Imitrex] Allergy (Verified 02/22/19 14:14) morphine Adverse Reaction (Severe, Verified 02/22/19 14:14) Headache MIGRAINES fentanyl Adverse Reaction (Intermediate, Verified 02/22/19 14:14) Headache hydrocodone bitartrate [From Vicodin] Adverse Reaction (Mild, Verified 02/22/19 14:14) Vomiting hydromorphone [From Dilaudid] Adverse Reaction (Mild, Verified 02/22/19 14:14) pt states makes heache worse. Home Medications: Alprazolam 1 mg [Xanax 1 mg] 2 mg PO BID 02/17/13 [History] Polyethylene Glycol 3350 17 gm [Miralax Powder 17GM PACKET] 34 gm PO TID 03/01 [History] Sennosides/Docusate Sodium [Senokot-S Tablet] 2 tab PO DAILY 04/25/15 [History] Promethazine HCl 25 mg [Phenergan 25 mg] 25 mg PO Q4HPRN PRN 05/11/15 [ History] Cetirizine HCl/Pseudoephedrine [Zyrtec-D Tablet] 0.5 each PO DAILY 02/03/16 [ History] Aspirin 81 mg PO DAILY 09/11/16 [History] Levothyroxine Sodium 50 Mcg [Synthroid 50 Mcg] 50 mcg PO DAILY 07/06/17 [ History] Linaclotide [Linzess] 290 mcg PO DAILY 10/07/17 [History] Rizatriptan Benzoate [Maxalt] 10 mg PO BID PRN PRN 06/23/18 [History] Glycopyrrolate/Formoterol Fum [Bevespi Aerosphere Inhaler] 5.9 gm IH BID [History] Fluticasone Propionate [Flonase NASAL] 2 spray NS DAILY 01/19/19 [History] PANTOPRAZOLE 40 mg Tablet [Protonix 40MG Tablet] 40 mg PO QAM 01/19/19 [ History] Sodium Bicarbonate 325 mg PO BID 01/19/19 [History] Hx Tetanus, Diphtheria Vaccination/Date Given: Yes Hx Influenza Vaccination/Date Given: Yes Hx Pneumococcal Vaccination/Date Given: No Immunizations Up to Date: Yes - Past Medical History Pertinent Past Medical History: Yes Neurological History: Migraines ENT History: Cataracts, Other Cardiac History: No Pertinent History Respiratory History: Bronchitis, COPD, Other Endocrine Medical History: Hypothyroidism, Other Musculoskeletal History: Arthritis, Degenerative Disk Disease, Osteoarthritis, Other GI Medical History: GERD, Irritable Bowel, Ulcer, Other History: Other Psycho-Social History: Anxiety Female Reproductive Disorders: Other Other Medical History: Recurrent UTI,urine kidney/bladder problems recurrent. 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 TRACHEA MALASIA - Past Surgical History Past Surgical History: Yes Neuro Surgical History: No Pertinent History Cardiac: No Pertinent History Respiratory: No Pertinent History Gastrointestinal: Bowel Surgery, Cholecystectomy, Colon Resection, Hernia Repair Genitourinary: Other Musculoskeletal: No Pertinent History Female Surgical History: Hysterectomy Other Surgical History: COLONOSCOPIES, EGDs. Total colectomy. FEEDING TUBE FOR 4 YEARS, stretches of bladder and urethra, bowel obstructions x2, lithotripsy. bronch on 1320 - Social History Smoking Status: Never smoker Exposure to second hand smoke: No Alcohol Use: None Drug Use: none Patient Lives Alone: Yes Significant Family History: no pertinent family hx - Female History Hx Now: No - Nursing Vital Signs Nursing Vital Signs: Initial Vital Signs Temperature 97.9 F 02/22/19 14:14 Pulse Rate 93 H 02/22/19 14:14 Respiratory Rate 18 02/22/19 14:14 Blood Pressure 105/73 02/22/19 14:14 O2 Sat by Pulse Oximetry 98 02/22/19 14:14 Pain Scale Pain Intensity 6 - Physical Exam General Appearance: no apparent distress Eye Exam: PERRL/EOMI Ears, Nose, Throat Exam: pharyngeal erythema Neck Exam: normal inspection, non-tender, supple, full range of motion Respiratory Exam: normal breath sounds, lungs clear, respiratory distress Cardiovascular Exam: regular rate/rhythm, normal heart sounds Gastrointestinal/Abdomen Exam: soft, tenderness (mild gen , mild decreased BS), No mass, No guarding Back Exam: normal inspection, normal range of motion Extremity Exam: normal inspection, normal range of motion Neurologic Exam: alert, 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, cooperative Skin Exam: normal color SpO2 Interpretation: normal SpO2: 98 O2 Delivery: Room Air - Course Nursing assessment & vital signs reviewed: Yes Ordered Tests: Active Orders 24 hr Category Date Time Status IV Insertion STAT Care 02/22/19 14:39 Active ABDOMEN AND PELVIS W/0 CONTRAS [CT] Stat Exams 02/22/19 14:40 Completed CBC W DIFF Stat Lab 02/22/19 14:39 Completed CMP Stat Lab 02/22/19 Completed CULTURE,URINE Stat Lab 02/22/19 Received LIPASE Stat Lab 02/22/19 Completed UA W/RFX UR CULTURE Stat Lab 02/22/19 Completed Medication Summary Discontinued Medications Generic Name Dose Route Start Last Admin Trade Name Freq PRN Reason Stop Dose Admin Sodium Chloride 1,000 mls @ 999 mls/hr 02/22/19 14:39 02/22/19 16:00 Sodium Chloride 0.9% 1000 Ml IV 02/22/19 15:39 Infused .Q1H1M STA Infusion Sodium Chloride Confirm 02/22/19 14:44 Sodium Chloride 0.9% 1000 Ml Administered 02/22/19 14:45 Dose 1,000 mls @ ud .ROUTE .[facility] Lab/Rad Data: Laboratory Result Diagrams 02/22/19 14:39 02/22/19 Unknown Laboratory Results 02/22/19 02/22/19 02/22/19 Range/Units Unknown Unknown 14:39 WBC 4.7 (4.0-10.5) K/mm3 RBC 4.07 L (4.1-5.4) M/mm3 Hgb 12.6 (12.0-16.0) gm/dl Hct 38.2 (35-47) % MCV 93.9 (78-100) fl MCH 31.0 (26-32) pg MCHC 33.0 (32-36) g/dl RDW 13.2 (11.5-14.0) % Plt Count 185 (150-450) K/mm3 MPV 10.7 (7.5-11.0) fl Gran % 71.1 H (36.0-66.0) % Eos # (Auto) 0.07 (0-0.5) Absolute Lymphs (auto) 0.94 L (1.0-4.6) Absolute Monos (auto) 0.34 (0.0-1.3) Lymphocytes % 19.8 L (24.0-44.0) % Monocytes % 7.2 (0.0-12.0) % Eosinophils % 1.5 (0.00-5.0) % Basophils % 0.4 (0.0-0.4) % Absolute Granulocytes 3.37 (1.4-6.9) Basophils # 0.02 (0-0.4) Sodium 140 (137-145) mmol/L Potassium 3.9 (3.5-5.1) mmol/L Chloride 111 H (98-107) mmol/L Carbon Dioxide 21 L (22-30) mmol/L Anion Gap 11.8 (5-15) MEQ/L BUN 19 H (7-17) mg/dL Creatinine 1.24 H (0.52-1.04) mg/dL Estimated GFR 46.4 ML/MIN Glucose 103 (74-106) mg/dL Calcium 9.4 (8.4-10.2) mg/dL Total Bilirubin 0.60 (0.2-1.3) mg/dL AST 22 (14-36) U/L ALT 14 (0-35) U/L Alkaline Phosphatase 83 (38-126) U/L Serum Total Protein 7.8 (6.3-8.2) g/dL Albumin 4.2 (3.5-5.0) g/dL Lipase 96 (23-300) U/L Urine Color [place] (YELLOW) Urine Appearance CLOUDY (CLEAR) Urine pH 5.0 (5-6) Ur Specific [place] 1.032 (1.005-1.025) Urine Protein 30 (Negative) Urine Ketones TRACE (NEGATIVE) Urine Blood NEGATIVE (0-5) [place]/ul Urine Nitrite NEGATIVE (NEGATIVE) Urine Bilirubin SMALL (NEGATIVE) Urine Urobilinogen NEGATIVE (0-1) mg/dL Ur Leukocyte Esterase SMALL (NEGATIVE) Urine WBC (Auto) 3-5 (0-5) /HPF Urine RBC (Auto) 3-5 (0-2) /HPF U Hyaline Cast (Auto) 6-10 (0-2) /LPF U Epithel Cells (Auto) FEW (FEW) /HPF Urine Bacteria (Auto) NONE (NEGATIVE) /HPF Unidentified Crystals 5-10 (NEGATIVE) /HPF Other Casts (Auto) 5-10 (NEGATIVE) /LPF Urine Mucus (Auto) MODERATE (NEGATIVE) /HPF Urine Yeast (Budding) Rare (NEGATIVE) /HPF Urine Culture Reflexed YES (NO) Urine Glucose NEGATIVE (NEGATIVE) mg/dL - Progress Progress: improved, pain not gone completely, re-examined Progress Note: 02/22/19 16:16 offered pain meds but patient refused. she is given fluid bolus. acute abdomen workup including CT abs/pelvis is negative for any acute finding. recommended continue with routine meds for constipation and out patient follow up. discussed sx/sn of worsening needing return which she seems understanding Counseled pt/family regarding: lab results, diagnosis, need for follow-up, rad results - Departure Departure Disposition: Home Clinical Impression: Abdominal pain Qualifiers: Abdominal location: generalized Qualified Code(s): R10.84 - Generalized abdominal pain Condition: Stable Critical Care Time: No Referrals: LLUVIA CHILDERS, [Primary Care Provider] - Follow Up with PCP/3 days Instructions: Acute Abdomen (Belly Pain), Adult (DC) Additional Instructions: drink plenty of fluids. take tylenol/ibuprofen as needed. continue meds for constipations as routine. return to ER for any worsening,.
[2019-02-22] MEDS ORDERED: Sodium Chloride 0.9% 1000 ML 1,000 ML ONE (14:44)
[2019-02-22 14:45] LABS: Absolute Neutrophil Ct (ANC) 3.37 (1.4-6.9); BASOPHIL % 0.4 % (0.0-0.4); Basophil (Absolute #) 0.02 (0-0.4); Eosinophil % 1.5 % (0.00-5.0); Eosinophil (Absolute #) 0.07 (0-0.5); Hematocrit 38.2 % (35-47); Hemoglobin 12.6 gm/dl (12.0-16.0); Lymphocyte (Absolute #) 0.94 (1.0-4.6); Lymphocytes % 19.8 % (24.0-44.0); Mean Cell Volume 93.9 fl (78-100); Mean Platelet Volume 10.7 fl (7.5-11.0); Monocyte (Absolute #) 0.34 (0.0-1.3); Monocytes % 7.2 % (0.0-12.0); Neutrophil % 71.1 % (36.0-66.0); Platelet Count 185 K/mm3 (150-450); Red Blood Count 4.07 M/mm3 (4.1-5.4); Red Cell Distribution Width 13.2 % (11.5-14.0); White Blood Count 4.7 K/mm3 (4.0-10.5)
[2019-02-22 14:50] LABS: ALBUMIN 4.2 g/dL (3.5-5.0); ANION GAP 11.8 MEQ/L (5-15); BILIRUBIN,TOTAL 0.6 mg/dL (0.2-1.3); Calcium 9.4 mg/dL (8.4-10.2); Creatinine 1 1.24 mg/dL (0.52-1.04); Potassium 3.9 mmol/L (3.5-5.1); Total Protein 7.8 g/dL (6.3-8.2)
[2019-02-22 15:25] VITALS: BP 150/74; PULSE 67
[2019-02-22 15:26] LABS: Appearance CLOUDY (CLEAR); Bilirubin SMALL (NEGATIVE); Blood NEGATIVE Ery/ul (0-5); Epithelial Cells FEW /HPF (FEW); Glucose NEGATIVE (NEGATIVE); Ketones TRACE (NEGATIVE); Leukocyte Esterase SMALL (NEGATIVE); Mucus MODERATE /HPF (NEGATIVE); Nitrite NEGATIVE (NEGATIVE); Protein,Urine Dip 30 (Negative); Specific Gravity 1.032 (1.005-1.025); Urobilinogen NEGATIVE mg/dL (0-1)
[2019-02-22 15:29] LABS: Budding Yeast Rare /HPF (NEGATIVE)
--- NOTE | 2019-02-22 15:29 | XRAY ---
Indication: Abdomen pain and distention. Obstruction. Multiple contiguous axial images obtained through the abdomen and pelvis without contrast as ordered. Comparison: March 10, 2018. Lung bases demonstrate stable partially visualized left lower lobe noncalcified micronodule favored to be benign and probably granulomas. No infiltrate or effusion. Heart is not enlarged. Stable distal paraesophageal calcified node. Noncontrasted stomach and bowel loops appear nonobstructed. Stable colectomy with intact sigmoid anastomosis. No free fluid/air. Also stable cholecystectomy, hysterectomy, calcified splenic granuloma, left lower renal cortical scarring, and tiny exophytic right renal cyst. Urinary bladder is empty. Remaining liver, pancreas, spleen, adrenal glands, kidneys, ureters and aorta appear unremarkable for noncontrast exam. Osseous structures intact again with mild degenerative changes. Impression: 1. Stable colectomy with intact sigmoid anastomosis. No complications or obstruction. 2. Stable left renal scarring, right renal cyst, and evidence for old granulomatous disease. 3. No new or acute intra-abdominal/pelvic abnormalities on this noncontrast exam.
[2019-02-22 16:19] VITALS: O2SAT 98
== END 2019-02-22 16:42 | disposition home or self-care (01) ==
LOC: ED 13:30
DX: R10.84 Generalized abdominal pain (principal)
CPT/HCPCS: 36000; 36415; 74176; 80053; 81001; 83690; 85025; 87086; 96360; 99284; J1642

== ENCOUNTER 2019-02-26 13:56 | Emergency (ER) | payer MEDICARE ==
--- NOTE | 2019-02-26 14:08 | ERPHSYRPT ---
- History of Present Illness Time Seen by Provider: 02/26/19 14:08 Source: patient Exam Limitations: no limitations Physician History: the patient is a 63-year-old female presents with chief complain when her bowel sounds check. 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 She reportedly has been in the emergency department couple times within the past week for diarrhea which is chronic for her and was instructed to come to the emergency Department this past Wednesday to be evaluated for possible bowel obstruction. She ultimately was discharged home after obstruction was ruled out. Since that time she endorses having one episode of nausea yesterday but reportedly has been able to drink plenty of water and has her usual amount and diarrhea. There is no blood reported in her stools the patient denies abdominal pain but endorses having some bloating. She's been able to eat without difficulty. There is no complaint of fever, chills, chest pain or shortness of breath. She endorses having URI symptoms for the past few days to include cough and sinus congestion. The patient had no other complaints. Allergies/Adverse Reactions: sumatriptan [From Imitrex] Allergy (Intermediate, Verified 02/22/19 14:14) Rash codeine Allergy (Mild, Verified 02/22/19 14:14) Rash MAKES SICK nitrofurantoin [From Macrobid] Allergy (Unknown, Verified 02/22/19 14:14) sumatriptan succinate [From Imitrex] Allergy (Verified 02/22/19 14:14) morphine Adverse Reaction (Severe, Verified 02/22/19 14:14) Headache MIGRAINES fentanyl Adverse Reaction (Intermediate, Verified 02/22/19 14:14) Headache hydrocodone bitartrate [From Vicodin] Adverse Reaction (Mild, Verified 02/22/19 14:14) Vomiting hydromorphone [From Dilaudid] Adverse Reaction (Mild, Verified 02/22/19 14:14) pt states makes heache worse. Home Medications: Alprazolam 1 mg [Xanax 1 mg] 2 mg PO BID 02/17/13 [History] Polyethylene Glycol 3350 17 gm [Miralax Powder 17GM PACKET] 34 gm PO TID 03/01 [History] Sennosides/Docusate Sodium [Senokot-S Tablet] 2 tab PO DAILY 04/25/15 [History] Promethazine HCl 25 mg [Phenergan 25 mg] 25 mg PO Q4HPRN PRN 05/11/15 [ History] Cetirizine HCl/Pseudoephedrine [Zyrtec-D Tablet] 0.5 each PO DAILY 02/03/16 [ History] Aspirin 81 mg PO DAILY 09/11/16 [History] Levothyroxine Sodium 50 Mcg [Synthroid 50 Mcg] 50 mcg PO DAILY 07/06/17 [ History] Linaclotide [Linzess] 290 mcg PO DAILY 10/07/17 [History] Rizatriptan Benzoate [Maxalt] 10 mg PO BID PRN PRN 06/23/18 [History] Glycopyrrolate/Formoterol Fum [Bevespi Aerosphere Inhaler] 5.9 gm IH BID [History] Fluticasone Propionate [Flonase NASAL] 2 spray NS DAILY 01/19/19 [History] PANTOPRAZOLE 40 mg Tablet [Protonix 40MG Tablet] 40 mg PO QAM 01/19/19 [ History] Sodium Bicarbonate 325 mg PO BID 01/19/19 [History] Hx Tetanus, Diphtheria Vaccination/Date Given: Yes Hx Influenza Vaccination/Date Given: Yes Hx Pneumococcal Vaccination/Date Given: No - Review of Systems Constitutional: No Fever, No Chills Eyes: No Symptoms Ears, Nose, & Throat: Throat Pain Respiratory: Cough Cardiac: No Chest Pain, No Edema, No Palpitations, No Syncope Abdominal/Gastrointestinal: Nausea (Once episode of nausea yesterday that has since resolved), Other (Diarrrhea, bloating), No Abdominal Pain, No Constipation , No Appetite Changes Genitourinary Symptoms: No Symptoms Musculoskeletal: No Symptoms Skin: No Symptoms Neurological: No Symptoms Psychological: No Symptoms Endocrine: No Symptoms All Other Systems: Reviewed and Negative - Past Medical History Pertinent Past Medical History: Yes Neurological History: Migraines ENT History: Cataracts, Other Cardiac History: No Pertinent History Respiratory History: Bronchitis, COPD, Other Endocrine Medical History: Hypothyroidism, Other Musculoskeletal History: Arthritis, Degenerative Disk Disease, Osteoarthritis, Other GI Medical History: GERD, Irritable Bowel, Ulcer, Other History: Other Psycho-Social History: Anxiety Female Reproductive Disorders: Other Other Medical History: Recurrent UTI,urine kidney/bladder problems recurrent. 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 TRACHEA MALASIA - Past Surgical History Past Surgical History: Yes Neuro Surgical History: No Pertinent History Cardiac: No Pertinent History Respiratory: No Pertinent History Gastrointestinal: Bowel Surgery, Cholecystectomy, Colon Resection, Hernia Repair Genitourinary: Other Musculoskeletal: No Pertinent History Female Surgical History: Hysterectomy Other Surgical History: COLONOSCOPIES, EGDs. Total colectomy. FEEDING TUBE FOR 4 YEARS, stretches of bladder and urethra, bowel obstructions x2, lithotripsy. bronch on 1320 - Social History Smoking Status: Never smoker Exposure to second hand smoke: No Alcohol Use: None Drug Use: none Patient Lives Alone: Yes Significant Family History: no pertinent family hx - Nursing Vital Signs Nursing Vital Signs: Initial Vital Signs Temperature 98.9 F 02/26/19 14:00 Pulse Rate 112 H 02/26/19 14:00 Respiratory Rate 24 02/26/19 14:00 Blood Pressure 110/65 02/26/19 14:00 O2 Sat by Pulse Oximetry 94 L 02/26/19 14:00 Pain Scale Pain Intensity 0 - Physical Exam General Appearance: no apparent distress, alert Eye Exam: PERRL/EOMI, eyes nml inspection Ears, Nose, Throat Exam: normal ENT inspection, TMs normal, moist mucous membranes, No pharynx normal, No dry mucous membranes, No pharyngeal erythema, No tonsillar exudate Neck Exam: normal inspection, No meningismus Respiratory Exam: normal breath sounds, lungs clear, airway intact, No chest tenderness, No respiratory distress Cardiovascular Exam: regular rate/rhythm, capillary refill <2 sec Gastrointestinal/Abdomen Exam: soft, normal bowel sounds, other (Well-healed midline surgical scar noted to lower abdomen), No tenderness, No distention, No mass, No guarding, No ecchymosis, No pulsatile mass, No rebound Pelvic Exam: not done Rectal Exam: deferred Back Exam: normal inspection Extremity Exam: normal inspection, No pedal edema Neurologic Exam: alert, 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, cooperative Skin Exam: normal color SpO2 Interpretation: normal O2 Delivery: Room Air - Course Nursing assessment & vital signs reviewed: Yes - Progress Progress: unchanged Progress Note: 02/26/19 14:30: nontoxic in appearance. The patient had no significant abdominal tenderness normal active bowel sounds. She is able to eat drink without difficulty. Upon being informed of her bowel sounds are present the patient was satisfied with being discharged from the emergency department and declined any further workup and had another enema she wanted addressed at this time. She is instructed to follow up with her dimmer board operator as an outpatient and return to the emergency department if she were to experience abdominal pain, vomiting, constipation or bloody bowel movementsas well as inability to tolerate PO. Counseled pt/family regarding: diagnosis, need for follow-up - Departure Departure Disposition: Home Clinical Impression: Encounter for medical screening examination Condition: Stable Critical Care Time: No Referrals: LLUVIA CHILDERS DO [Primary Care Provider] - Instructions: Diarrhea in Adolescents and Adults, Nausea and Vomiting, Adult ( DC) Plan of Treatment: Please call and schedule a follow-up appointment with your dimmer board operator as needed
[2019-02-26 14:09] VITALS: BP 110/65; PULSE 112; O2SAT 94
== END 2019-02-26 14:42 | disposition home or self-care (01) ==
LOC: ED 13:56
DX: Z03.89 Encounter for observation for other suspected diseases and conditions ruled out (principal); J44.9 Chronic obstructive pulmonary disease, unspecified; E03.9 Hypothyroidism, unspecified; Z79.899 Other long term (current) drug therapy; K58.0 Irritable bowel syndrome with diarrhea
CPT/HCPCS: 99283

== ENCOUNTER 2019-03-05 13:00 | Emergency (ER) | payer MEDICARE ==
[2019-03-05 13:20] VITALS: O2SAT 98
--- NOTE | 2019-03-05 13:22 | ERPHSYRPT ---
- History of Present Illness Time Seen by Provider: 03/05/19 13:11 Source: patient Exam Limitations: no limitations Physician History: pt states 2 days ago she started with a painful rash on her right upper back; denies fever, shortness of air, earaches. Allergies/Adverse Reactions: sumatriptan [From Imitrex] Allergy (Intermediate, Verified 03/05/19 13:20) Rash codeine Allergy (Mild, Verified 03/05/19 13:20) Rash MAKES SICK nitrofurantoin [From Macrobid] Allergy (Unknown, Verified 03/05/19 13:20) sumatriptan succinate [From Imitrex] Allergy (Verified 03/05/19 13:20) morphine Adverse Reaction (Severe, Verified 03/05/19 13:20) Headache MIGRAINES fentanyl Adverse Reaction (Intermediate, Verified 03/05/19 13:20) Headache hydrocodone bitartrate [From Vicodin] Adverse Reaction (Mild, Verified 03/05/19 13:20) Vomiting hydromorphone [From Dilaudid] Adverse Reaction (Mild, Verified 03/05/19 13:20) pt states makes heache worse. Home Medications: Alprazolam 1 mg [Xanax 1 mg] 2 mg PO BID 02/17/13 [History] Polyethylene Glycol 3350 17 gm [Miralax Powder 17GM PACKET] 34 gm PO TID 03/01 [History] Sennosides/Docusate Sodium [Senokot-S Tablet] 2 tab PO DAILY 04/25/15 [History] Promethazine HCl 25 mg [Phenergan 25 mg] 25 mg PO Q4HPRN PRN 05/11/15 [ History] Cetirizine HCl/Pseudoephedrine [Zyrtec-D Tablet] 0.5 each PO DAILY 02/03/16 [ History] Aspirin 81 mg PO DAILY 09/11/16 [History] Levothyroxine Sodium 50 Mcg [Synthroid 50 Mcg] 50 mcg PO DAILY 07/06/17 [ History] Linaclotide [Linzess] 290 mcg PO DAILY 10/07/17 [History] Rizatriptan Benzoate [Maxalt] 10 mg PO BID PRN PRN 06/23/18 [History] Glycopyrrolate/Formoterol Fum [Bevespi Aerosphere Inhaler] 5.9 gm IH BID [History] Fluticasone Propionate [Flonase NASAL] 2 spray NS DAILY 01/19/19 [History] PANTOPRAZOLE 40 mg Tablet [Protonix 40MG Tablet] 40 mg PO QAM 01/19/19 [ History] Sodium Bicarbonate 325 mg PO BID 01/19/19 [History] Hx Tetanus, Diphtheria Vaccination/Date Given: Yes Hx Influenza Vaccination/Date Given: Yes Hx Pneumococcal Vaccination/Date Given: No - Review of Systems Constitutional: No Fever Ears, Nose, & Throat: Throat Pain (chronic for years.), No Ear Pain Respiratory: No Dyspnea Abdominal/Gastrointestinal: Vomiting (chronic for years.) Skin: Rash All Other Systems: Reviewed and Negative - Past Medical History Pertinent Past Medical History: Yes Neurological History: Migraines ENT History: Cataracts, Other Cardiac History: No Pertinent History Respiratory History: Bronchitis, COPD, Other Endocrine Medical History: Hypothyroidism, Other Musculoskeletal History: Arthritis, Degenerative Disk Disease, Osteoarthritis, Other GI Medical History: GERD, Irritable Bowel, Ulcer, Other History: Other Psycho-Social History: Anxiety Female Reproductive Disorders: Other Other Medical History: Recurrent UTI,urine kidney/bladder problems recurrent. 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 TRACHEA MALASIA - Past Surgical History Past Surgical History: Yes Neuro Surgical History: No Pertinent History Cardiac: No Pertinent History Respiratory: No Pertinent History Gastrointestinal: Bowel Surgery, Cholecystectomy, Colon Resection, Hernia Repair Genitourinary: Other Musculoskeletal: No Pertinent History Female Surgical History: Hysterectomy Other Surgical History: COLONOSCOPIES, EGDs. Total colectomy. FEEDING TUBE FOR 4 YEARS, stretches of bladder and urethra, bowel obstructions x2, lithotripsy. bronch on 1320 - Social History Smoking Status: Never smoker Exposure to second hand smoke: No Alcohol Use: None Drug Use: none Patient Lives Alone: Yes Significant Family History: no pertinent family hx - Nursing Vital Signs Nursing Vital Signs: Initial Vital Signs Temperature 98 F 03/05/19 13:06 Pulse Rate 68 03/05/19 13:06 Respiratory Rate 20 03/05/19 13:06 Blood Pressure 96/75 03/05/19 13:06 O2 Sat by Pulse Oximetry 98 03/05/19 13:06 Pain Scale Pain Intensity 8 - Physical Exam General Appearance: alert Eye Exam: PERRL/EOMI Ears, Nose, Throat Exam: moist mucous membranes Neck Exam: normal inspection Respiratory Exam: lungs clear Cardiovascular Exam: normal heart sounds Gastrointestinal/Abdomen Exam: soft, normal bowel sounds Back Exam: normal range of motion Extremity Exam: No pedal edema Neurologic Exam: alert, cooperative Skin Exam: rash (erythematous maculopapular rash over the right upper back with some scabs.) SpO2 Interpretation: normal SpO2: 98 O2 Delivery: Room Air - Course Nursing assessment & vital signs reviewed: Yes - Progress Progress: unchanged - Departure Departure Disposition: Home Clinical Impression: Herpes zoster Condition: Stable Critical Care Time: No Referrals: LLUVIA CHILDERS DO [Primary Care Provider] - Additional Instructions: follow up with private doctor tomorrow. Prescriptions: Acetaminophen 325 mg [Tylenol 325 mg] 650 mg PO Q4H PRN PRN #60 tablet PRN Reason: Pain Acyclovir 800 mg [Zovirax 800 mg] 800 mg PO 5XD #50 tablet Capsaicin [Zostrix Hp] 56.6 gm TP QID PRN #1 cream..g.
[2019-03-05 14:25] VITALS: BP 99/64; PULSE 64
== END 2019-03-05 14:23 | disposition home or self-care (01) ==
LOC: ED 13:00
DX: B02.9 Zoster without complications (principal)
CPT/HCPCS: 99283

== ENCOUNTER 2019-03-08 11:43 | Emergency (ER) | payer MEDICARE ==
[2019-03-08] MEDS ORDERED: DUONEB 0.5-3 MG/3 ml Neb IH ONE ×2 (12:26→12:33)
[2019-03-08 13:04] LABS: BASOPHIL % 0.5 % (0.0-0.4); Basophil (Absolute #) 0.02 (0-0.4); Eosinophil % 1.7 % (0.00-5.0); Eosinophil (Absolute #) 0.07 (0-0.5); Hematocrit 36.6 % (35-47); Hemoglobin 12.3 gm/dl (12.0-16.0); Lymphocytes % 19.6 % (24.0-44.0); Mean Cell Volume 93.8 fl (78-100); Mean Corpuscular Hemoglobin 31.5 pg (26-32); Mean Corpuscular Hgb Concent. 33.6 g/dl (32-36); Mean Platelet Volume 10.8 fl (7.5-11.0); Monocyte (Absolute #) 0.29 (0.0-1.3); Monocytes % 7.1 % (0.0-12.0); Neutrophil % 71.1 % (36.0-66.0); Platelet Count 170 K/mm3 (150-450); Red Cell Distribution Width 13.3 % (11.5-14.0); White Blood Count 4.1 K/mm3 (4.0-10.5)
--- NOTE | 2019-03-08 13:05 | XRAY ---
Indication: Cough and congestion. Short of breath. Comparison: February 17, 2019. Portable chest unchanged again demonstrating mild right hemidiaphragm elevation with adjacent subsegmental atelectasis/scarring, right perihilar calcified nodes, and right Port-A-Cath. Remaining heart, left lung, and bony thorax normal.
[2019-03-08 13:30] LABS: ALBUMIN 3.8 g/dL (3.5-5.0); ANION GAP 14.1 MEQ/L (5-15); BILIRUBIN,TOTAL 0.5 mg/dL (0.2-1.3); Creatinine 1 1.05 mg/dL (0.52-1.04); MAGNESIUM 1.7 mg/dL (1.6-2.3); Potassium 3.8 mmol/L (3.5-5.1); Total Protein 7.1 g/dL (6.3-8.2)
--- NOTE | 2019-03-08 14:08 | ERPHSYRPT ---
- History of Present Illness Time Seen by Provider: 03/08/19 11:50 Historian: patient Exam Limitations: no limitations Patient Subjective Stated Complaint: shortness of breath with a cough Triage Nursing Assessment: Pt brought to the ER via EMS, coughing, hard to catch her breath, on 2L NC, hypotensive, inspiratory and expiratory wheezing on the right and crackles on the left base, pulses normal, skin N/W/D, states that her abdomen hurts but it is due to not moving her bowels as much as she needs to , sinus rhythm Physician History: Patient states her cough started the wednesday before . Cough has been constant but worse over the past week. Cough is constant and occasionally productive. Timing/Duration: week(s) (Started around but worse over the past 1- 2 weeks) Activities at Onset: none Quality: pressure Chest Pain Radiation: abdomen Modifying Factors: Improves With: nothing Associated Symptoms: shortness of breath, cough Aspirin Treatment Today: no aspirin today Allergies/Adverse Reactions: sumatriptan [From Imitrex] Allergy (Intermediate, Verified 03/08/19 11:55) Rash codeine Allergy (Mild, Verified 03/08/19 11:55) Rash MAKES SICK nitrofurantoin [From Macrobid] Allergy (Unknown, Verified 03/08/19 11:55) sumatriptan succinate [From Imitrex] Allergy (Verified 03/08/19 11:55) morphine Adverse Reaction (Severe, Verified 03/08/19 11:55) Headache MIGRAINES fentanyl Adverse Reaction (Intermediate, Verified 03/08/19 11:55) Headache hydrocodone bitartrate [From Vicodin] Adverse Reaction (Mild, Verified 03/08/19 11:55) Vomiting hydromorphone [From Dilaudid] Adverse Reaction (Mild, Verified 03/08/19 11:55) pt states makes heache worse. Home Medications: Alprazolam 1 mg [Xanax 1 mg] 2 mg PO BID 02/17/13 [History] Polyethylene Glycol 3350 17 gm [Miralax Powder 17GM PACKET] 34 gm PO TID 03/01 [History] Sennosides/Docusate Sodium [Senokot-S Tablet] 2 tab PO DAILY 04/25/15 [History] Promethazine HCl 25 mg [Phenergan 25 mg] 25 mg PO Q4HPRN PRN 05/11/15 [ History] Cetirizine HCl/Pseudoephedrine [Zyrtec-D Tablet] 0.5 each PO DAILY 02/03/16 [ History] Aspirin 81 mg PO DAILY 09/11/16 [History] Levothyroxine Sodium 50 Mcg [Synthroid 50 Mcg] 50 mcg PO DAILY 07/06/17 [ History] Linaclotide [Linzess] 290 mcg PO DAILY 10/07/17 [History] Rizatriptan Benzoate [Maxalt] 10 mg PO BID PRN PRN 06/23/18 [History] Glycopyrrolate/Formoterol Fum [Bevespi Aerosphere Inhaler] 5.9 gm IH BID [History] Fluticasone Propionate [Flonase NASAL] 2 spray NS DAILY 01/19/19 [History] PANTOPRAZOLE 40 mg Tablet [Protonix 40MG Tablet] 40 mg PO QAM 01/19/19 [ History] Sodium Bicarbonate 325 mg PO BID 01/19/19 [History] Hx Tetanus, Diphtheria Vaccination/Date Given: Yes Hx Influenza Vaccination/Date Given: Yes Hx Pneumococcal Vaccination/Date Given: No - Review of Systems Constitutional: No Fever, No Chills Eyes: No Symptoms Ears, Nose, & Throat: No Symptoms Respiratory: Cough, Dyspnea, Dyspnea on Exertion (SMITH) Cardiac: No Edema, No Syncope Abdominal/Gastrointestinal: No Abdominal Pain, No Nausea, No Vomiting, No Diarrhea Genitourinary Symptoms: No Dysuria Musculoskeletal: No Symptoms, No Back Pain, No Neck Pain Skin: No Rash Neurological: No Dizziness, No Focal Weakness, No Sensory Changes Psychological: No Symptoms Endocrine: No Symptoms All Other Systems: Reviewed and Negative - Past Medical History Pertinent Past Medical History: Yes Neurological History: Migraines ENT History: Cataracts, Other Cardiac History: No Pertinent History Respiratory History: Bronchitis, COPD, Other Endocrine Medical History: Hypothyroidism, Other Musculoskeletal History: Arthritis, Degenerative Disk Disease, Osteoarthritis, Other GI Medical History: GERD, Irritable Bowel, Ulcer, Other History: Other Psycho-Social History: Anxiety Female Reproductive Disorders: Other Other Medical History: Recurrent UTI,urine kidney/bladder problems recurrent. 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 TRACHEA MALASIA - Past Surgical History Past Surgical History: Yes Neuro Surgical History: No Pertinent History Cardiac: No Pertinent History Respiratory: No Pertinent History Gastrointestinal: Bowel Surgery, Cholecystectomy, Colon Resection, Hernia Repair Genitourinary: Other Musculoskeletal: No Pertinent History Female Surgical History: Hysterectomy Other Surgical History: COLONOSCOPIES, EGDs. Total colectomy. FEEDING TUBE FOR 4 YEARS, stretches of bladder and urethra, bowel obstructions x2, lithotripsy. 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 [employer]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 STAT Care 03/08/19 12:27 Active EKG-ER Only STAT Care 03/08/19 12:26 Active IV Insertion STAT Care 03/08/19 12:26 Active Pulse Oximetry (ED) STAT Care 03/08/19 12:26 Active CHEST 1 VIEW (PORTABLE) Stat Exams 03/08/19 12:27 Completed CHEST WITH CONTRAST [CT] Stat Exams 03/08/19 13:39 Completed BLOOD CULTURE Stat Lab 03/08/19 12:50 Ordered CBC W DIFF Stat Lab 03/08/19 12:50 Completed CMP Stat Lab 03/08/19 12:50 Completed D-DIMER QUANTITATIVE Stat Lab 03/08/19 12:50 Completed MAGNESIUM Stat Lab 03/08/19 12:50 Completed NT PRO BNP Stat Lab 03/08/19 12:50 Completed TROPONIN Q3H Lab 03/08/19 Completed TROPONIN Q3H Lab 03/08/19 15:30 Ordered TROPONIN Q3H Lab 03/08/19 18:30 Ordered TROPONIN Q3H Lab 03/08/19 21:30 Ordered TROPONIN Q3H Lab 03/09/19 00:30 Ordered UA W/RFX UR CULTURE Stat Lab 03/08/19 14:14 Completed Peak Expiratory Flow Rate ONCE RT 03/08/19 12:41 Active Respiratory Therapy Assessment DAILY RT 03/08/19 12:41 Active Medication Summary Discontinued Medications Generic Name Dose Route Start Last Admin Trade Name Elton PRN Reason Stop Dose Admin Albuterol/Ipratropium 3 ml 03/08/19 12:26 03/08/19 12:36 Duoneb 0.5-3 Mg/3 Ml Neb IH 03/08/19 12:27 3 ml STAT ONE Administration Albuterol/Ipratropium Confirm 03/08/19 12:33 Duoneb 0.5-3 Mg/3 Ml Neb Administered 03/08/19 12:34 Dose 3 ml IH .STK-MED ONE Methylprednisolone Sodium Succinate 125 mg 03/08/19 15:55 Solu-Medrol 125 Mg IV 03/08/19 15:56 STAT ONE Lab/Rad Data: Laboratory Result Diagrams 03/08/19 12:50 03/08/19 12:50 Laboratory Results 03/08/19 03/08/19 03/08/19 Range/Units Unknown 14:14 12:50 WBC (4.0-10.5) K/mm3 RBC (4.1-5.4) M/mm3 Hgb (12.0-16.0) gm/dl Hct (35-47) % MCV (78-100) fl MCH (26-32) pg MCHC (32-36) g/dl RDW (11.5-14.0) % Plt Count (150-450) K/mm3 MPV (7.5-11.0) fl Gran % (36.0-66.0) % Eos # (Auto) (0-0.5) Absolute Lymphs (auto) (1.0-4.6) Absolute Monos (auto) (0.0-1.3) Lymphocytes % (24.0-44.0) % Monocytes % (0.0-12.0) % Eosinophils % (0.00-5.0) % Basophils % (0.0-0.4) % Absolute Granulocytes (1.4-6.9) Basophils # (0-0.4) D-Dimer 1243 H* (215-500) ng/mL Sodium (137-145) mmol/L Potassium (3.5-5.1) mmol/L Chloride (98-107) mmol/L Carbon Dioxide (22-30) mmol/L Anion Gap (5-15) MEQ/L BUN (7-17) mg/dL Creatinine (0.52-1.04) mg/dL Estimated GFR ML/MIN Glucose (74-106) mg/dL Calcium (8.4-10.2) mg/dL Magnesium (1.6-2.3) mg/dL Total Bilirubin (0.2-1.3) mg/dL AST (14-36) U/L ALT (0-35) U/L Alkaline Phosphatase (38-126) U/L Troponin I < 0.012 (0.000-0.034) ng/mL NT-Pro-B Natriuret Pep (0-900) pg/mL Serum Total Protein (6.3-8.2) g/dL Albumin (3.5-5.0) g/dL Urine Color YELLOW (YELLOW) Urine Appearance SLIGHTLY CLOUDY (CLEAR) Urine pH 5.0 (5-6) Ur Specific [place] 1.029 (1.005-1.025) Urine Protein NEGATIVE (Negative) Urine Ketones NEGATIVE (NEGATIVE) Urine Blood NEGATIVE (0-5) [place]/ul Urine Nitrite NEGATIVE (NEGATIVE) Urine Bilirubin NEGATIVE (NEGATIVE) Urine Urobilinogen NEGATIVE (0-1) mg/dL Ur Leukocyte Esterase MODERATE (NEGATIVE) Urine WBC (Auto) 11-15 (0-5) /HPF Urine RBC (Auto) 0-2 (0-2) /HPF U Epithel Cells (Auto) RARE (FEW) /HPF Urine Bacteria (Auto) FEW (NEGATIVE) /HPF Urine Mucus (Auto) SLIGHT (NEGATIVE) /HPF Urine Culture Reflexed NO (NO) Urine Glucose NEGATIVE (NEGATIVE) mg/dL 03/08/19 03/08/19 Range/Units 12:50 12:50 WBC 4.1 (4.0-10.5) K/mm3 RBC 3.90 L (4.1-5.4) M/mm3 Hgb 12.3 (12.0-16.0) gm/dl Hct 36.6 (35-47) % MCV 93.8 (78-100) fl MCH 31.5 (26-32) pg MCHC 33.6 (32-36) g/dl RDW 13.3 (11.5-14.0) % Plt Count 170 (150-450) K/mm3 MPV 10.8 (7.5-11.0) fl Gran % 71.1 H (36.0-66.0) % Eos # (Auto) 0.07 (0-0.5) Absolute Lymphs (auto) 0.80 L (1.0-4.6) Absolute Monos (auto) 0.29 (0.0-1.3) Lymphocytes % 19.6 L (24.0-44.0) % Monocytes % 7.1 (0.0-12.0) % Eosinophils % 1.7 (0.00-5.0) % Basophils % 0.5 (0.0-0.4) % Absolute Granulocytes 2.90 (1.4-6.9) Basophils # 0.02 (0-0.4) D-Dimer (215-500) ng/mL Sodium 142 (137-145) mmol/L Potassium 3.8 (3.5-5.1) mmol/L Chloride 112 H (98-107) mmol/L Carbon Dioxide 19 L (22-30) mmol/L Anion Gap 14.1 (5-15) MEQ/L BUN 18 H (7-17) mg/dL Creatinine 1.05 H (0.52-1.04) mg/dL Estimated GFR 56.3 ML/MIN Glucose 106 (74-106) mg/dL Calcium 9.0 (8.4-10.2) mg/dL Magnesium 1.7 (1.6-2.3) mg/dL Total Bilirubin 0.50 (0.2-1.3) mg/dL AST 23 (14-36) U/L ALT 13 (0-35) U/L Alkaline Phosphatase 82 (38-126) U/L Troponin I (0.000-0.034) ng/mL NT-Pro-B Natriuret Pep 154 (0-900) pg/mL Serum Total Protein 7.1 (6.3-8.2) g/dL Albumin 3.8 (3.5-5.0) g/dL Urine Color (YELLOW) Urine Appearance (CLEAR) Urine pH (5-6) Ur Specific [place] (1.005-1.025) Urine Protein (Negative) Urine Ketones (NEGATIVE) Urine Blood (0-5) [place]/ul Urine Nitrite (NEGATIVE) Urine Bilirubin (NEGATIVE) Urine Urobilinogen (0-1) mg/dL Ur Leukocyte Esterase (NEGATIVE) Urine WBC (Auto) (0-5) /HPF Urine RBC (Auto) (0-2) /HPF U Epithel Cells (Auto) (FEW) /HPF Urine Bacteria (Auto) (NEGATIVE) /HPF Urine Mucus (Auto) (NEGATIVE) /HPF Urine Culture Reflexed (NO) Urine Glucose (NEGATIVE) mg/dL - Departure Clinical Impression: Pneumonitis, Cough, Hiatal hernia Condition: Good Critical Care Time: No Referrals: LLUVIA CHILDERS DO [Primary Care Provider] - Additional Instructions: Discharge/Care Plan GEOVANNY FREY was seen on 03/08/19 in the Emergency Room. The patient was counseled regarding Diagnosis,Lab results, Imaging studies, need for follow up and when to return to the Emergency Room. Prescriptions given: Discharge Note I have spoken with the patient and/or caregivers. I have explained the patient' s condition, diagnosis and treatment plan based on the information available to me at this time. I have answered the patient's and/or caregiver's questions and addressed any concerns. The patient and/or caregivers have as good understanding of the patient's diagnosis, condition and treatment plan as can be expected at this point. The vital signs have been stable. The patient's condition is stable and appropriate for discharge from the emergency department. The patient will pursue further outpatient evaluation with the primary care physician or other designated or consulting physician as outlined in the discharge instructions. The patient and/or caregivers are agreeable to this plan of care and follow-up instructions have been explained in detail. The patient and/or caregivers have received these instruction. The patient/and or caregivers are aware that any significant change in condition or worsening of symptoms should prompt an immediate return to this or the closest emergency department or call 911. Prescriptions: Doxycycline Hyclate 100 mg [Vibramycin 100 MG] 100 mg PO BID #14 tab Prednisone 10 mg [Deltasone 10 mg] 40 mg PO DAILY 3 Days #12 tablet
[2019-03-08 14:27] LABS: Appearance SLIGHTLY CLOUDY (CLEAR); Bacteria FEW /HPF (NEGATIVE); Bilirubin NEGATIVE (NEGATIVE); Blood NEGATIVE Ery/ul (0-5); Epithelial Cells RARE /HPF (FEW); Glucose NEGATIVE (NEGATIVE); Ketones NEGATIVE (NEGATIVE); Leukocyte Esterase MODERATE (NEGATIVE); Mucus SLIGHT /HPF (NEGATIVE); Nitrite NEGATIVE (NEGATIVE); Protein,Urine Dip NEGATIVE (Negative); RBC 0-2 /HPF (0-2); Specific Gravity 1.029 (1.005-1.025); Urobilinogen NEGATIVE mg/dL (0-1)
--- NOTE | 2019-03-08 15:12 | XRAY ---
Indication: Chest pain, cough, short of breath, and elevated d-dimer. Multiple contiguous axial images obtained through the chest using 80 cc Isovue 370 contrast and PE protocol. Comparison: CT chest without contrast November 03, 2017. There is good opacification of the pulmonary arteries to include the lobar and segmental branches. No filling defect or pulmonary embolus. Heart is not enlarged with again right Port-A-Cath. Aorta is normal in course and caliber. Stable mediastinal and right hilar calcified nodes. No pathologic mediastinal/hilar lymphadenopathy. New small hiatal hernia. Lungs inflated again with patchy bilateral [id number]-like opacities again greatest in both upper lobes probably pneumonitis. No consolidation or effusion. Stable scattered bilateral fibrosis/scarring and a few bilateral calcified/noncalcified micronodules. Bony thorax intact. Limited upper abdomen again demonstrates a few calcified splenic granulomas. Impression: 1. Negative pulmonary embolus. 2. Patchy bilateral [id number] opacities probably pneumonitis. 3. Again evidence for old granulomatous disease.
[2019-03-08] MEDS ORDERED: solu-MEDROL 125 MG IV ONE (15:55)
[2019-03-08] MEDS ORDERED: XANAX 1 MG PO STA (16:02)
[2019-03-08] MEDS ORDERED: solu-MEDROL 125 MG ONE (16:06)
[2019-03-08 16:22] VITALS: BP 104/73; PULSE 80; O2SAT 98
== END 2019-03-08 16:29 | disposition home or self-care (01) ==
LOC: ED 11:43
DX: J18.9 Pneumonia, unspecified organism (principal); R05 Cough; K44.9 Diaphragmatic hernia without obstruction or gangrene; J44.9 Chronic obstructive pulmonary disease, unspecified; E03.9 Hypothyroidism, unspecified; M19.90 Unspecified osteoarthritis, unspecified site; K21.9 Gastro-esophageal reflux disease without esophagitis; F41.9 Anxiety disorder, unspecified; Z79.899 Other long term (current) drug therapy
CPT/HCPCS: 36000; 36415; 71045; 71260; 80053; 81001; 83735; 83880; 84484; 85025; 85379; 87040; 93005; 93041; 94150; 94640; 94760; 96374; 99284; J1642; J2930; A9270-GY

== ENCOUNTER 2019-03-20 00:02 | Observation (INO) | payer MEDICARE ==
[2019-03-20] MEDS ORDERED: MORPHINE SULFATE 2 MG INJ IV ONE (00:14)
[2019-03-20] MEDS ORDERED: Sodium Chloride 0.9% 1000 ML 1,000 ML IV STA (00:14)
[2019-03-20] MEDS ORDERED: Zofran 4 MG/2 ML VIAL IV ONE ×2 (00:14→02:28)
[2019-03-20] MEDS ORDERED: Zofran 4 MG/2 ML VIAL ONE ×2 (00:41→02:40)
[2019-03-20] MEDS ORDERED: MORPHINE SULFATE 2 MG INJ ONE (00:41)
[2019-03-20] MEDS ORDERED: Sodium Chloride 0.9% 1000 ML 1,000 ML ONE ×2 (00:42→04:04)
[2019-03-20 00:55] LABS: Absolute Neutrophil Ct (ANC) 4.96 (1.4-6.9); BASOPHIL % 0.2 % (0.0-0.4); Basophil (Absolute #) 0.01 (0-0.4); Eosinophil % 0.6 % (0.00-5.0); Eosinophil (Absolute #) 0.04 (0-0.5); Hematocrit 40.2 % (35-47); Hemoglobin 13.4 gm/dl (12.0-16.0); Lymphocyte (Absolute #) 1.09 (1.0-4.6); Lymphocytes % 17.1 % (24.0-44.0); Mean Cell Volume 93.9 fl (78-100); Mean Corpuscular Hemoglobin 31.3 pg (26-32); Mean Corpuscular Hgb Concent. 33.3 g/dl (32-36); Mean Platelet Volume 11.1 fl (7.5-11.0); Monocyte (Absolute #) 0.26 (0.0-1.3); Monocytes % 4.1 % (0.0-12.0); Platelet Count 163 K/mm3 (150-450); Red Blood Count 4.28 M/mm3 (4.1-5.4); Red Cell Distribution Width 13.4 % (11.5-14.0); White Blood Count 6.4 K/mm3 (4.0-10.5)
[2019-03-20 01:06] LABS: ANION GAP 15.2 MEQ/L (5-15); BILIRUBIN,TOTAL 0.5 mg/dL (0.2-1.3); Calcium 9.3 mg/dL (8.4-10.2); Creatinine 1 1.23 mg/dL (0.52-1.04); Potassium 3.5 mmol/L (3.5-5.1); Total Protein 7.5 g/dL (6.3-8.2)
--- NOTE | 2019-03-20 01:31 | ERPHSYRPT ---
- History of Present Illness Historian: patient Exam Limitations: no limitations Patient Subjective Stated Complaint: pt states she thinks she has a bowel blockage because she has been vomiting bile and having abd pain. states she also has a lung infection Triage Nursing Assessment: pt alert and oriented, answers questions approp. pt to room per wheelchair. transfers to stretcher per self. steady gait noted. respirations nonlabored with lungs cta. frequent cough noted. abd distended, bowel sounds hypo. Timing/Duration: day(s) (2) Activities at Onset: none Quality: cramping, stabbing Abdominal Pain Onset Location: generalized abdomen Pain Radiation: no radiation Severity of Pain-Max: moderate Severity of Pain-Current: moderate Modifying Factors: Improves With: eating Associated Symptoms: nausea, vomiting Previous symptoms: recently treated Hx Tetanus, Diphtheria Vaccination/Date Given: Yes Hx Influenza Vaccination/Date Given: Yes Hx Pneumococcal Vaccination/Date Given: Yes Immunizations Up to Date: Yes <SEEMA MAHMOOD - Last Filed: 03/20/19 03:53> <PARK ROBERTS - Last Filed: 03/20/19 10:49> - History of Present Illness Time Seen by Provider: 03/20/19 00:04 Allergies/Adverse Reactions: sumatriptan [From Imitrex] Allergy (Intermediate, Verified 03/20/19 00:54) Rash codeine Allergy (Mild, Verified 03/20/19 00:54) Rash MAKES SICK nitrofurantoin [From Macrobid] Allergy (Unknown, Verified 03/20/19 00:54) sumatriptan succinate [From Imitrex] Allergy (Verified 03/20/19 00:54) morphine Adverse Reaction (Severe, Verified 03/20/19 00:54) Headache MIGRAINES fentanyl Adverse Reaction (Intermediate, Verified 03/20/19 00:54) Headache hydrocodone bitartrate [From Vicodin] Adverse Reaction (Mild, Verified 03/20/19 00:54) Vomiting hydromorphone [From Dilaudid] Adverse Reaction (Mild, Verified 03/20/19 00:54) pt states makes heache worse. Home Medications: Alprazolam 1 mg [Xanax 1 mg] 1 mg PO TID 02/17/13 [History] Polyethylene Glycol 3350 17 gm [Miralax Powder 17GM PACKET] 34 gm PO BID 03/01 [History] Sennosides/Docusate Sodium [Senokot-S Tablet] 1 tab PO DAILY 04/25/15 [History] Promethazine HCl 25 mg [Phenergan 25 mg] 25 mg PO Q4HPRN PRN 05/11/15 [ History] Cetirizine HCl/Pseudoephedrine [Zyrtec-D Tablet] 1 each PO DAILY 02/03/16 [ History] Aspirin 81 mg PO DAILY 09/11/16 [History] Levothyroxine Sodium 50 Mcg [Synthroid 50 Mcg] 50 mcg PO DAILY 07/06/17 [ History] Linaclotide [Linzess] 290 mcg PO DAILY 10/07/17 [History] Rizatriptan Benzoate [Maxalt] 10 mg PO BID PRN PRN 06/23/18 [History] Glycopyrrolate/Formoterol Fum [Bevespi Aerosphere Inhaler] 2 inh IH BID [History] Fluticasone Propionate [Flonase NASAL] 2 spray NS DAILY 01/19/19 [History] PANTOPRAZOLE 40 mg Tablet [Protonix 40MG Tablet] 40 mg PO QAM 01/19/19 [ History] Sodium Bicarbonate 650 mg PO DAILY 01/19/19 [History] Levofloxacin [Levaquin] 500 mg PO DAILY 03/20/19 [History] - Review of Systems Constitutional: No Fever, No Chills Eyes: No Symptoms Ears, Nose, & Throat: No Symptoms Respiratory: Cough, Dyspnea Cardiac: No Chest Pain, No Edema, No Syncope Abdominal/Gastrointestinal: Abdominal Pain, Nausea, Vomiting, No Diarrhea Genitourinary Symptoms: No Dysuria Musculoskeletal: No Back Pain, No Neck Pain Skin: No Rash Neurological: No Dizziness, No Focal Weakness, No Sensory Changes Psychological: No Symptoms Endocrine: No Symptoms All Other Systems: Reviewed and Negative <SEEMA MAHMOOD - Last Filed: 03/20/19 03:53> - Past Medical History Pertinent Past Medical History: Yes Neurological History: Migraines ENT History: Cataracts, Other Cardiac History: No Pertinent History Respiratory History: Bronchitis, COPD, Other Endocrine Medical History: Hypothyroidism, Other Musculoskeletal History: Arthritis, Degenerative Disk Disease, Osteoarthritis, Other GI Medical History: GERD, Irritable Bowel, Ulcer, Other History: Other Psycho-Social History: Anxiety Female Reproductive Disorders: Other Other Medical History: Recurrent UTI,urine kidney/bladder problems recurrent. 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 TRACHEA MALASIA - Past Surgical History Past Surgical History: Yes Neuro Surgical History: No Pertinent History Cardiac: No Pertinent History Respiratory: No Pertinent History Gastrointestinal: Bowel Surgery, Cholecystectomy, Colon Resection, Hernia Repair Genitourinary: Other Musculoskeletal: No Pertinent History Female Surgical History: Hysterectomy Other Surgical History: COLONOSCOPIES, EGDs. Total colectomy. FEEDING TUBE FOR 4 YEARS, stretches of bladder and urethra, bowel obstructions x2, lithotripsy. bronch on 1320 - Social History Smoking Status: Never smoker Exposure to second hand smoke: No Alcohol Use: None Drug Use: none Patient Lives Alone: Yes Significant Family History: no pertinent family hx <SEEMA MAHMOOD - Last Filed: 03/20/19 03:53> - Physical Exam General Appearance: mild distress, alert Eye Exam: PERRL/EOMI, eyes nml inspection Ears, Nose, Throat Exam: normal ENT inspection, pharynx normal, moist mucous membranes Neck Exam: normal inspection, non-tender, supple, full range of motion Respiratory Exam: normal breath sounds, lungs clear, No respiratory distress Cardiovascular Exam: regular rate/rhythm, normal heart sounds Gastrointestinal/Abdomen Exam: soft, tenderness (generalized), No mass, No guarding, No rebound Pelvic Exam: not done Rectal Exam: deferred Back Exam: normal inspection, normal range of motion, No CVA tenderness, No vertebral tenderness Extremity Exam: normal inspection, normal range of motion, pelvis stable Neurologic Exam: alert, 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, cooperative, normal mood/affect, nml cerebellar function, sensation nml, No motor deficits Skin Exam: normal color, warm, dry SpO2: 98 <SEEMA MAHMOOD - Last Filed: 03/20/19 03:53> - Nursing Vital Signs Nursing Vital Signs: Initial Vital Signs Temperature 98.0 F 03/20/19 00:11 Pulse Rate 109 H 03/20/19 00:11 Respiratory Rate 24 03/20/19 00:11 Blood Pressure 116/75 03/20/19 00:11 O2 Sat by Pulse Oximetry 98 03/20/19 00:11 Pain Scale Pain Intensity 4 - Course Nursing assessment & vital signs reviewed: Yes - CT Exams Abdomen/Pelvis CT Interpretation: Tele-radiologist Report, Other (SBO, transition at RLQ just prox to distal ileum) <SEEMA MAHMOOD - Last Filed: 03/20/19 03:53> Ordered Tests: Active Orders 24 hr Category Date Time Status IV Insertion STAT Care 03/20/19 00:17 Active NG to Suction (Insertion) ROUTINE Care 03/20/19 02:07 Active ABDOMEN AND PELVIS W/0 CONTRAS [CT] Stat Exams 03/20/19 00:28 Completed ABDOMEN AND PELVIS W/0 CONTRAS [CT] Stat Exams 03/20/19 09:19 Completed CBC W DIFF Stat Lab 03/20/19 00:53 Completed CMP Stat Lab 03/20/19 00:53 Completed CULTURE,URINE Stat Lab 03/20/19 01:49 Received LIPASE Stat Lab 03/20/19 00:53 Completed Lactic Acid Stat Lab 03/20/19 03:50 Completed UA W/RFX UR CULTURE Stat Lab 03/20/19 01:49 Completed Respiratory Therapy Assessment DAILY RT 03/20/19 02:29 Completed Transfer Order Routine Transfer 03/20/19 Ordered Medication Summary Generic Name Dose Route Start Last Admin Trade Name Freq PRN Reason Stop Dose Admin Sodium Chloride 1,000 mls @ 175 mls/hr 03/20/19 04:15 03/20/19 10:02 Sodium Chloride 0.9% 1000 Ml IV 04/19/19 04:14 Infused .[id number] JENNIFER Infusion Discontinued Medications Generic Name Dose Route Start Last Admin Trade Name Freq PRN Reason Stop Dose Admin Albuterol Sulfate 2.5 mg 03/20/19 02:06 03/20/19 02:31 Proventil Solution 2.5 Mg/0.5 Ml IH 03/20/19 02:07 2.5 mg STAT ONE Administration Albuterol Sulfate Confirm 03/20/19 02:29 Proventil 2.5 Mg/3 Ml Neb Administered 03/20/19 02:30 Dose 2.5 mg IH .STK-MED ONE Sodium Chloride 1,000 mls @ 999 mls/hr 03/20/19 00:14 03/20/19 04:42 Sodium Chloride 0.9% 1000 Ml IV 03/20/19 01:14 Infused .Q1H1M STA Infusion Sodium Chloride Confirm 03/20/19 00:42 Sodium Chloride 0.9% 1000 Ml Administered 03/20/19 00:43 Dose 1,000 mls @ ud .ROUTE .STK-MED ONE Morphine Sulfate 2 mg 03/20/19 00:14 03/20/19 02:20 Morphine Sulfate 2 Mg Inj IV 03/20/19 00:15 Not Given STAT ONE Morphine Sulfate Confirm 03/20/19 00:41 Morphine Sulfate 2 Mg Inj Administered 03/20/19 00:42 Dose 2 mg .ROUTE .STK-MED ONE Nalbuphine HCl 5 mg 03/20/19 02:27 03/20/19 02:46 Nubain 10 Mg/Ml IV 03/20/19 02:28 5 mg STAT ONE Administration Nalbuphine HCl Confirm 03/20/19 02:40 Nubain 10 Mg/Ml Administered 03/20/19 02:41 Dose 10 mg .ROUTE .STK-MED ONE Ondansetron HCl 4 mg 03/20/19 00:14 03/20/19 00:46 Zofran 4 Mg/2 Ml Vial IV 03/20/19 00:15 4 mg STAT ONE Administration Ondansetron HCl Confirm 03/20/19 00:41 Zofran 4 Mg/2 Ml Vial Administered 03/20/19 00:42 Dose 4 mg .ROUTE .STK-MED ONE Ondansetron HCl 4 mg 03/20/19 02:28 03/20/19 02:45 Zofran 4 Mg/2 Ml Vial IV 03/20/19 02:29 4 mg STAT ONE Administration Ondansetron HCl Confirm 03/20/19 02:40 Zofran 4 Mg/2 Ml Vial Administered 03/20/19 02:41 Dose 4 mg .ROUTE .STK-MED ONE Pantoprazole Sodium 40 mg 03/20/19 09:11 03/20/19 09:47 Protonix 40 Mg Iv IV 03/20/19 09:12 40 mg STAT ONE Administration Pantoprazole Sodium Confirm 03/20/19 09:45 Protonix 40 Mg Iv Administered 03/20/19 09:46 Dose 40 mg IV .STK-MED ONE Lab/Rad Data: Laboratory Result Diagrams 03/20/19 00:53 03/20/19 00:53 Laboratory Results 03/20/19 03/20/19 03/20/19 Range/Units 03:50 01:49 00:53 WBC (4.0-10.5) K/mm3 RBC (4.1-5.4) M/mm3 Hgb (12.0-16.0) gm/dl Hct (35-47) % MCV (78-100) fl MCH (26-32) pg MCHC (32-36) g/dl RDW (11.5-14.0) % Plt Count (150-450) K/mm3 MPV (7.5-11.0) fl Gran % (36.0-66.0) % Eos # (Auto) (0-0.5) Absolute Lymphs (auto) (1.0-4.6) Absolute Monos (auto) (0.0-1.3) Lymphocytes % (24.0-44.0) % Monocytes % (0.0-12.0) % Eosinophils % (0.00-5.0) % Basophils % (0.0-0.4) % Absolute Granulocytes (1.4-6.9) Basophils # (0-0.4) Sodium 142 (137-145) mmol/L Potassium 3.5 (3.5-5.1) mmol/L Chloride 110 H (98-107) mmol/L Carbon Dioxide 20 L (22-30) mmol/L Anion Gap 15.2 H (5-15) MEQ/L BUN 20 H (7-17) mg/dL Creatinine 1.23 H (0.52-1.04) mg/dL Estimated GFR 46.9 ML/MIN Glucose 120 H (74-106) mg/dL Lactic Acid 1.5 (0.4-2.0) Calcium 9.3 (8.4-10.2) mg/dL Total Bilirubin 0.50 (0.2-1.3) mg/dL AST 22 (14-36) U/L ALT 13 (0-35) U/L Alkaline Phosphatase 92 (38-126) U/L Serum Total Protein 7.5 (6.3-8.2) g/dL Albumin 4.0 (3.5-5.0) g/dL Lipase 99 (23-300) U/L Urine Color WICHO (YELLOW) Urine Appearance CLOUDY (CLEAR) Urine pH 5.0 (5-6) Ur Specific Swisher 1.028 (1.005-1.025) Urine Protein 30 (Negative) Urine Ketones NEGATIVE (NEGATIVE) Urine Blood NEGATIVE (0-5) Aroldo/ul Urine Nitrite NEGATIVE (NEGATIVE) Urine Bilirubin SMALL (NEGATIVE) Urine Urobilinogen NEGATIVE (0-1) mg/dL Ur Leukocyte Esterase TRACE (NEGATIVE) Urine WBC (Auto) 11-15 (0-5) /HPF Urine RBC (Auto) 3-5 (0-2) /HPF U Hyaline Cast (Auto) 26-50 (0-2) /LPF U Epithel Cells (Auto) RARE (FEW) /HPF Urine Bacteria (Auto) RARE (NEGATIVE) /HPF Urine Mucus (Auto) SLIGHT (NEGATIVE) /HPF Urine Culture Reflexed YES (NO) Urine Glucose NEGATIVE (NEGATIVE) mg/dL 03/20/19 Range/Units 00:53 WBC 6.4 (4.0-10.5) K/mm3 RBC 4.28 (4.1-5.4) M/mm3 Hgb 13.4 (12.0-16.0) gm/dl Hct 40.2 (35-47) % MCV 93.9 (78-100) fl MCH 31.3 (26-32) pg MCHC 33.3 (32-36) g/dl RDW 13.4 (11.5-14.0) % Plt Count 163 (150-450) K/mm3 MPV 11.1 H (7.5-11.0) fl Gran % 78.0 H (36.0-66.0) % Eos # (Auto) 0.04 (0-0.5) Absolute Lymphs (auto) 1.09 (1.0-4.6) Absolute Monos (auto) 0.26 (0.0-1.3) Lymphocytes % 17.1 L (24.0-44.0) % Monocytes % 4.1 (0.0-12.0) % Eosinophils % 0.6 (0.00-5.0) % Basophils % 0.2 (0.0-0.4) % Absolute Granulocytes 4.96 (1.4-6.9) Basophils # 0.01 (0-0.4) Sodium (137-145) mmol/L Potassium (3.5-5.1) mmol/L Chloride (98-107) mmol/L Carbon Dioxide (22-30) mmol/L Anion Gap (5-15) MEQ/L BUN (7-17) mg/dL Creatinine (0.52-1.04) mg/dL Estimated GFR ML/MIN Glucose (74-106) mg/dL Lactic Acid (0.4-2.0) Calcium (8.4-10.2) mg/dL Total Bilirubin (0.2-1.3) mg/dL AST (14-36) U/L ALT (0-35) U/L Alkaline Phosphatase (38-126) U/L Serum Total Protein (6.3-8.2) g/dL Albumin (3.5-5.0) g/dL Lipase (23-300) U/L Urine Color (YELLOW) Urine Appearance (CLEAR) Urine pH (5-6) Ur Specific Swisher (1.005-1.025) Urine Protein (Negative) Urine Ketones (NEGATIVE) Urine Blood (0-5) Aroldo/ul Urine Nitrite (NEGATIVE) Urine Bilirubin (NEGATIVE) Urine Urobilinogen (0-1) mg/dL Ur Leukocyte Esterase (NEGATIVE) Urine WBC (Auto) (0-5) /HPF Urine RBC (Auto) (0-2) /HPF U Hyaline Cast (Auto) (0-2) /LPF U Epithel Cells (Auto) (FEW) /HPF Urine Bacteria (Auto) (NEGATIVE) /HPF Urine Mucus (Auto) (NEGATIVE) /HPF Urine Culture Reflexed (NO) Urine Glucose (NEGATIVE) mg/dL - Progress Progress: improved Discussed with Dr.: Other (Dr. Cade (GI), Dr. Fregoso (hospitalist) at [facility] who accepts pt for transfer. No beds at this time. ) Counseled pt/family regarding: lab results, diagnosis, rad results <SEEMA MAHMOOD - Last Filed: 03/20/19 03:53> - Progress Progress: improved <PARK ROBERTS - Last Filed: 03/20/19 10:49> - Progress Progress Note: 03/20/19 02:15 Pt with some improvement with meds and IVF. Ct shows SBO, jxn at [facility]. Pt sees Dr. Woo at [facility]. Pt is usually transferred there with SBO. 03/20/19 03:54 Pt is much better after NEB tx-pt requested due to her coughing which is alleviated with albuterol tx. Pt also better after NGT placement. 300mL output so far. D/w Dr. Cade/[place] at [facility]. Would like close monitoring of her vitals and get lactic acid level. (SEEMA MAHMOOD) 03/20/19 10:13 pt clinically improving. spoke to dr. richardson who is covering for dr. cade. pt had 2 bms and passed flatus. dr. richardson wanted repeat ct abd/ pelvis. repeat ct abd/pelvis reads prvious sbo improved/resolved. additionally , pt had another bm. pt stated although improved, she does not yet feel comfortable going home. [facility] was contacted. they stated they will not have any open beds for transfer today. 03/20/19 10:42 dr. richardson accept pt for obs placement. (PARK ROBERTS) - Departure Departure Disposition: Transfer Critical Care Time: No <SEEMA MAHMOOD - Last Filed: 03/20/19 03:53> - Departure Departure Disposition: Observation Critical Care Time: No <PARK ROBERTS - Last Filed: 03/20/19 10:49> - Departure Clinical Impression: Small bowel obstruction Condition: Stable Referrals: LLUVIA CADE DO [Primary Care Provider] -
[2019-03-20] MEDS ORDERED: PROVENTIL Solution 2.5 MG/0.5 ML IH ONE (02:06)
[2019-03-20 02:21] LABS: Appearance CLOUDY (CLEAR); Bacteria RARE /HPF (NEGATIVE); Bilirubin SMALL (NEGATIVE); Blood NEGATIVE Ery/ul (0-5); Epithelial Cells RARE /HPF (FEW); Glucose NEGATIVE (NEGATIVE); Hyaline Casts 26-50 /LPF (0-2); Ketones NEGATIVE (NEGATIVE); Leukocyte Esterase TRACE (NEGATIVE); Mucus SLIGHT /HPF (NEGATIVE); Nitrite NEGATIVE (NEGATIVE); Protein,Urine Dip 30 (Negative); Specific Gravity 1.028 (1.005-1.025); Urobilinogen NEGATIVE mg/dL (0-1)
[2019-03-20] MEDS ORDERED: Nubain 10 MG/ML IV ONE (02:27)
[2019-03-20] MEDS ORDERED: PROVENTIL 2.5 MG/3 ML NEB IH ONE (02:29)
[2019-03-20] MEDS ORDERED: Nubain 10 MG/ML ONE (02:40)
[2019-03-20] MEDS ORDERED: Sodium Chloride 0.9% 1000 ML 1,000 ML IV SCH (04:15)
--- NOTE | 2019-03-20 09:08 | XRAY ---
Indication: Abdomen pain and distention. Emesis. Hypoactive bowel sounds. Multiple contiguous axial images obtained through the abdomen and pelvis without contrast as ordered. Comparison: February 22, 2019. Lung bases demonstrate stable left lower lobe noncalcified micronodules and distal paraesophageal calcified node. Minimal bibasilar dependent atelectasis. No infiltrate or effusion. Heart is not enlarged. New small hiatal hernia. Noncontrasted stomach mildly fluid distended. Small bowel loops are now abnormally distended up to 4.8 cm with fluid leveling. Transition point suspected in the pelvis with right lower quadrant bowel loops appear decompressed now concerning for small bowel obstruction. Again colectomy with intact sigmoid anastomosis, cholecystectomy, and hysterectomy. No free fluid/air. Stable tiny right renal cyst, left renal cortical scarring, and a few calcified splenic granulomas. Remaining liver, pancreas, spleen, adrenal glands, kidneys, ureters, bladder, and aorta appear unremarkable for noncontrast exam. Impression: 1. New CT findings as detailed favoring distal small bowel obstruction. 2. New small hiatal hernia. 3. Stable right renal cyst, left renal scarring, and evidence for old granulomatous disease. Comment: Preliminary interpretation was made by [facility]. No critical discrepancy.
[2019-03-20] MEDS ORDERED: PROTONIX 40 MG IV IV ONE ×2 (09:11→09:45)
--- NOTE | 2019-03-20 10:02 | XRAY ---
Indication: Abdomen pain and distention. Status post [address] bowel movements since last CT. Multiple contiguous axial images obtained through the abdomen and pelvis without contrast as ordered. Comparison: Taken early in the day. Lung bases demonstrates new subsegmental atelectasis bilaterally. Right infrahilar chunky calcified node not previously imaged. Stable left lower lobe noncalcified micronodules and distal paraesophageal calcified node. Heart is not enlarged. New NG tube tip terminates in the stomach lumen. Air fluid distended small bowel loops improved with several bowel loops now more normal in caliber. Previous left midabdomen small bowel bowel loop is distended up to 3.5 cm, previously 4.8 cm. Again no free fluid/air. Stable colectomy with intact sigmoid anastomosis, cholecystectomy, hysterectomy, tiny right renal cysts, and left renal scarring. Remaining liver, pancreas, spleen, adrenal glands, kidneys, ureters, bladder, and aorta appear unremarkable for noncontrast exam. Impression: 1. Previous small bowel obstruction improved/resolved based on above CT findings and clinically reported bowel movements. No new/acute findings. 2. Stable right renal cyst, left renal scarring, and evidence for old granulomatous disease.
[2019-03-20] MEDS ORDERED: Nubain 10 MG/ML IV PRN (11:05)
[2019-03-20] MEDS ORDERED: TYLENOL 325 MG PO PRN (11:05)
[2019-03-20] MEDS ORDERED: NON-FORMULARY ITEM (Rizatriptan Benzoate [Maxalt] 10 MG) PO PRN (13:35)
[2019-03-20] MEDS ORDERED: PYRIDIUM 200 MG PO PRN (13:35)
[2019-03-20] MEDS ORDERED: Levofloxacin 500 MG Tablet PO SCH (14:00)
[2019-03-20] MEDS ORDERED: CLARITIN-D 24HR TABLET PO SCH (14:00)
[2019-03-20] MEDS ORDERED: KEFLEX 250 MG PO SCH (14:00)
[2019-03-20] MEDS ORDERED: NON-FORMULARY ITEM PO SCH (14:00)
[2019-03-20] MEDS ORDERED: ECOTRIN 81 MG PO SCH (14:00)
[2019-03-20] MEDS ORDERED: Flonase NASAL NS SCH (14:00)
[2019-03-20] MEDS ORDERED: SYNTHROID 50 MCG PO SCH (14:00)
[2019-03-20] MEDS ORDERED: Senokot-S Tablet PO SCH (14:00)
[2019-03-20] MEDS ORDERED: MEDICATION INTERVENTION MC SCH (14:15)
[2019-03-20] MEDS ORDERED: MEDICATION INTERVENTION PO SCH ×2 (14:15)
[2019-03-20] MEDS ORDERED: XANAX 1 MG PO SCH (15:00)
[2019-03-20] MEDS: Zofran 4 MG/2 ML VIAL IV PRN ×2 (15:26→23:44)
[2019-03-20] MEDS: Sodium Chloride 0.9% 1000 ML 1,000 ML IV SCH (15:27)
[2019-03-20] MEDS ORDERED: Ativan 2 MG/1 ML VIAL IV PRN (17:57)
[2019-03-20] MEDS ORDERED: FORMOTEROL FUM IH SCH (22:00)
[2019-03-20] MEDS ORDERED: Miralax Powder 17GM PACKET PO SCH (22:00)
[2019-03-20] MEDS ORDERED: Ativan 2 MG/1 ML VIAL IV ONE (22:00)
[2019-03-20] MEDS ORDERED: GLYCOPYRROLATE IH SCH (22:00)
[2019-03-21 05:43] LABS: Absolute Neutrophil Ct (ANC) 3.82 (1.4-6.9); Basophil (Absolute #) 0 (0-0.4); Eosinophil % 0.4 % (0.00-5.0); Eosinophil (Absolute #) 0.02 (0-0.5); Hematocrit 33.1 % (35-47); Hemoglobin 10.6 gm/dl (12.0-16.0); Lymphocyte (Absolute #) 0.66 (1.0-4.6); Mean Cell Volume 96.5 fl (78-100); Mean Corpuscular Hemoglobin 30.9 pg (26-32); Monocyte (Absolute #) 0.23 (0.0-1.3); Monocytes % 4.9 % (0.0-12.0); Neutrophil % 80.7 % (36.0-66.0); Platelet Count 135 K/mm3 (150-450); Red Blood Count 3.43 M/mm3 (4.1-5.4); Red Cell Distribution Width 13.3 % (11.5-14.0); White Blood Count 4.7 K/mm3 (4.0-10.5)
[2019-03-21 06:04] LABS: BLOOD UREA NITROGEN 17 mg/dL (7-17); CHLORIDE 112 mmol/L (98-107); Calcium 8.3 mg/dL (8.4-10.2); Carbon Dioxide 24 mmol/L (22-30); Creatinine 1 0.81 mg/dL (0.52-1.04); Glucose 115 mg/dL (74-106); Potassium 4.2 mmol/L (3.5-5.1); SODIUM 143 mmol/L (137-145)
[2019-03-21] MEDS: TORAdol 10 MG TABLET PO SCH (07:25)
[2019-03-21 07:29] VITALS: BP 126/63; PULSE 88
[2019-03-21 08:33] VITALS: O2SAT 96
[2019-03-21] MEDS ORDERED: Ativan 2 MG/1 ML VIAL IV PRN (08:42)
--- NOTE | 2019-03-21 08:42 | PCM.SSS ---
History of Present Illness - Chief Complaint Chief Complaint: partial sbo Date: 03/21/19 History of Present Illness: is a 63 year old female with multiple medical problems and significant chronic bowel disease hx with recurrent episodic flares of SBO. Patient presented initially to ER wednesday evening with complaints of abdominal distention and failure to have a bm. Patient reports that she could tell something was going on Wednesday and felt like it was more than a fecal impaction. She also reports that since she has had on/off vomiting that she just attributed to being acutely ill. She was also complaining of bowel symptoms and cough(COPD) related symptoms on 03/08/19 and patient was told to go to ER. Patient reports she takes all of her meds as directed and follows up with her specialists as directed. Patient was recently being treated for a suspected COPD exacerbation. She reports that she does not normally have oxygen at home but was started on oxygen during a recent hospital evaluation. Patient does report she has COPD. She deneis any hx of AC. Patient reports she sees multiple specialists including Dr Alva from endocrinology for hypothyroidism. She has seen Dr Johnston and another urologist for kidney stones and interstitial cystitis. Patient sees Dr Drummond for GI. She has appt to see Dr Child for psych (anxiety). She reports Dr Liang Mccain is the surgeon she sees for bowel related issues. She sees Dr Carranza for pulmonology. PCP is Dr Perry. - Review of Systems Constitutional: No Fever, No Chills Eyes: No Vision Changes, No Double Vision Ears, Nose, & Throat: Ear Pain, Nose Congestion (Chronic), Sinus Drainage ( Chronic), Other (Right sided chronic), No Throat Pain Respiratory: Short Of Breath, No Cough, No Wheezing Cardiac: No Chest Pain, No Edema Abdominal/Gastrointestinal: Abdominal Pain, Nausea, Vomiting, Constipation, No Diarrhea Genitourinary Symptoms: Other (Hx of kidney stones), No Dysuria, No Frequency Musculoskeletal: No Joint Pain, No Joint Swelling Skin: No Rash Neurological: Dizziness, Headache (Hx of Migraines), Vertigo Psychological: Anxiety (Severe ), No Alcohol Abuse, No Drug Abuse Endocrine: No Polyuria, No Polydipsia Hematologic/Lymphatic: No Anemia, No Blood Clots, No Easy Bleeding Medications & Allergies Home Medications: Home Medication List Alprazolam 1 mg [Xanax 1 mg] 1 mg PO TID 02/17/13 [History Confirmed 03/20] Polyethylene Glycol 3350 17 gm [Miralax Powder 17GM PACKET] 34 gm PO BID 03/01 [History Confirmed 03/20/19] Sennosides/Docusate Sodium [Senokot-S Tablet] 1 tab PO DAILY 04/25/15 [History Confirmed 03/20/19] Promethazine HCl 25 mg [Phenergan 25 mg] 25 mg PO Q4HPRN PRN 05/11/15 [ History Confirmed 03/20/19] Cetirizine HCl/Pseudoephedrine [Zyrtec-D Tablet] 1 each PO DAILY 02/03/16 [ History Confirmed 03/20/19] Aspirin 81 mg PO DAILY 09/11/16 [History Confirmed 03/20/19] Levothyroxine Sodium 50 Mcg [Synthroid 50 Mcg] 50 mcg PO DAILY 07/06/17 [ History Confirmed 03/20/19] Linaclotide [Linzess] 290 mcg PO DAILY 10/07/17 [History Confirmed 03/20/19] Meclizine HCl 25 mg PO Q8H PRN PRN #10 tablet 03/28/18 [Rx Confirmed 03/20/19] Rizatriptan Benzoate [Maxalt] 10 mg PO BID PRN PRN 06/23/18 [History Confirmed 03/20/19] Glycopyrrolate/Formoterol Fum [Bevespi Aerosphere Inhaler] 2 inh IH BID [History Confirmed 03/20/19] Fluticasone Propionate [Flonase NASAL] 2 spray NS DAILY 01/19/19 [History Confirmed 03/20/19] PANTOPRAZOLE 40 mg Tablet [Protonix 40MG Tablet] 40 mg PO QAM 01/19/19 [ History Confirmed 03/20/19] Sodium Bicarbonate 650 mg PO DAILY 01/19/19 [History Confirmed 03/20/19] Ketorolac Tromethamine [Toradol] 10 mg PO Q6H 8 Days #30 tablet 02/17/19 [Rx Confirmed 03/20/19] Cephalexin Mh 250 mg [Keflex 250 mg] 250 mg PO DAILY 03/20/19 [History Confirmed 03/20/19] Levofloxacin [Levaquin] 500 mg PO DAILY 03/20/19 [History Confirmed 03/20/19] Phenazopyridine HCl 200 mg [Pyridium 200 mg] 200 mg PO BID PRN 03/20/19 [ History Confirmed 03/20/19] Allergies/Adverse Reactions: Allergies Allergy/AdvReac Type Severity Reaction Status Date / Time sumatriptan [From Imitrex] Allergy Intermediate Rash Verified 03/20/19 00:54 codeine Allergy Mild Rash Verified 03/20/19 00:54 nitrofurantoin Allergy Unknown Verified 03/20/19 00:54 [From Macrobid] sumatriptan succinate Allergy Verified 03/20/19 00:54 [From Imitrex] morphine AdvReac Severe Headache Verified 03/20/19 00:54 fentanyl AdvReac Intermediate Headache Verified 03/20/19 00:54 hydrocodone bitartrate AdvReac Mild Vomiting Verified 03/20/19 00:54 [From Vicodin] hydromorphone [From Dilaudid] AdvReac Mild pt states Verified 03/20/19 00:54 makes heache worse. - Past Medical History Past Medical History: Yes Neurological History: Migraines ENT History: Cataracts, Other Cardiac History: No Pertinent History Respiratory History: Bronchitis, COPD, Other Endocrine Medical History: Hypothyroidism, Other Musculoskelatal History: Arthritis, Degenerative Disk Disease, Osteoarthritis, Other GI Medical History: GERD, Irritable Bowel, Ulcer, Other (Chronic intestinal pseudo obstruction) History: Other (kidney stones) Pyscho-Social History: Anxiety Reproductive Disorders: Other Comment: Recurrent UTI,urine kidney/bladder problems recurrent. infection "ESBL " in kidneys and bladder. TRACHEA MALASIA - Female History Are you now?: No - Past Surgical History Past Surgical History: Yes Neuro Surgical History: No Pertinent History Cardiac History: No Pertinent History Respiratory Surgery: No Pertinent History GI Surgical History: Bowel Surgery, Cholecystectomy, Colon Resection, Hernia Repair Genitourinary Surgical Hx: Other Musculskeletal Surgical Hx: No Pertinent History Female Surgical History: Hysterectomy Other Surgical History: COLONOSCOPIES, EGDs. Total colectomy. FEEDING TUBE FOR 4 YEARS, stretches of bladder and urethra, bowel obstructions x2, lithotripsy. bronch on 1320 - Social History Smoking Status: Never smoker Exposure to second hand smoke: No Alcohol: None Drug Use: none Significant Family History: no pertinent family hx - Physical Exam Vital Signs: Vital Signs - 24 hr Temp Pulse Resp BP Pulse Ox 03/21/19 08:32 96 03/21/19 07:29 98.4 F 88 18 126/63 93 L 03/21/19 04:00 97.4 F 92 H 18 108/63 91 L 03/21/19 00:00 97.9 F 99 H 16 133/63 95 03/20/19 20:00 98.3 F 108 H 18 122/71 93 L 03/20/19 16:40 97.8 F 78 20 114/58 96 03/20/19 11:14 97.8 F 82 22 116/57 100 03/20/19 11:13 97.8 F 82 22 116/57 100 03/20/19 10:43 78 16 89/47 100 03/20/19 09:50 70 16 103/52 97 General Appearance: mild distress, alert, anxiety Neurologic Exam: 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, cooperative, 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 as tested, other ( Tremor R hand), No depressed mood/affect Eye Exam: eyes nml inspection, No scleral icterus Ears, Nose, Throat Exam: other (Lips are dry) Neck Exam: normal inspection Respiratory Exam: normal breath sounds, lungs clear, other (Patient has chest port), No chest tenderness, No crackles/rales, No rhonchi, No wheezing Cardiovascular Exam: regular rate/rhythm, other (distant heart sounds s1 and s2 present), No murmur, No friction rub, No gallop Gastrointestinal/Abdomen Exam: soft, tenderness, other (Absent bowel sounds on physical exam RLQ pain with palpation and mid abdominal pain with palpation.), No distention, No guarding Pelvic Exam: not done Rectal Exam: not done Back Exam: No CVA tenderness, No rash Extremity Exam: normal inspection, No pedal edema, No swelling, No tenderness Skin Exam: normal color, warm, dry, No rash, No petechiae, No jaundice Results - Labs Lab/Micro Results: Lab Results-Last 24 Hours 03/21/19 03/21/19 Range/Units 05:05 05:05 WBC 4.7 (4.0-10.5) K/mm3 RBC 3.43 L (4.1-5.4) M/mm3 Hgb 10.6 L D (12.0-16.0) gm/dl Hct 33.1 L (35-47) % MCV 96.5 (78-100) fl MCH 30.9 (26-32) pg MCHC 32.0 (32-36) g/dl RDW 13.3 (11.5-14.0) % Plt Count 135 L (150-450) K/mm3 MPV 11.0 (7.5-11.0) fl Gran % 80.7 H (36.0-66.0) % Eos # (Auto) 0.02 (0-0.5) Absolute Lymphs (auto) 0.66 L (1.0-4.6) Absolute Monos (auto) 0.23 (0.0-1.3) Lymphocytes % 14.0 L (24.0-44.0) % Monocytes % 4.9 (0.0-12.0) % Eosinophils % 0.4 (0.00-5.0) % Basophils % 0.0 (0.0-0.4) % Absolute Granulocytes 3.82 (1.4-6.9) Basophils # 0 (0-0.4) Sodium 143 (137-145) mmol/L Potassium 4.2 (3.5-5.1) mmol/L Chloride 112 H (98-107) mmol/L Carbon Dioxide 24 (22-30) mmol/L Anion Gap 11.0 (5-15) MEQ/L BUN 17 (7-17) mg/dL Creatinine 0.81 (0.52-1.04) mg/dL Estimated GFR > 60.0 ML/MIN Glucose 115 H (74-106) mg/dL Calcium 8.3 L (8.4-10.2) mg/dL Microbiology 03/20/19 01:49 Urine Culture - Preliminary Urine, Void GRAM NEGATIVE ID AND SENSITIVITY PENDING - Radiology Impressions Radiology Exams & Impressions: Radiology Procedures Category Date Time Status ABDOMEN AND PELVIS W/0 CONTRAS [CT] Stat Exams 03/20/19 00:28 Completed ABDOMEN AND PELVIS W/0 CONTRAS [CT] Stat Exams 03/20/19 09:19 Completed - Other Procedures and Tests Respiratory Therapy 03/21/19 08:31 Oxygen NASAL CANNULA 2 lpm Assessment/Plan (1) Small bowel obstruction Status: Acute Assessment & Plan: 63 yr old female with SBO. Patient had two CTs done in ER. Second CT showed improvement however she still was having vomiting and was no longer having BMs following admission. She was still having ouput from NG tube 200 ml of greenish fluid overnight. Patient has IV zofran every 6 hours as needed. She was NPO except for ice chips. I did not get an additional imaging with contrast in case she would require imaging at following transfer. I did not appreciate any bowels sounds on physical exam this am. She was tender to palpation lower R side abdomen and mid abdomen. Patient's IV fluids were increased to 100ml per hour from 50ml. NG tube is still in place. Code(s): K56.609 - UNSP INTESTNL OBST, UNSP TO PARTIAL VERSUS COMPLETE OBST (2) Chronic intestinal pseudo-obstruction Status: Acute Assessment & Plan: Patient reports she was diagnosed with this when she was a child. She has had frequent obstructions and multiple surgeries. She reports she is missing her large bowel and a lot of her small bowel. She takes her stool softners and medications for constipation as directed. She can sense when she starts having symptoms related to stool impaction. She also reports vomiting on/off since . Patient has episodic flare ups and has had to be transferred to [facility] before for medical/surgical management Code(s): K59.8 - OTHER SPECIFIED FUNCTIONAL INTESTINAL DISORDERS (3) Abdominal pain Status: Acute Onset Date: ~10/07/17 Qualifiers: Abdominal location: generalized Qualified Code(s): R10.84 - Generalized abdominal pain Assessment & Plan: Improved since admission but still present. NG tube has helped with decompression unsure total NG output from ER and floor but canister this am had 600 ml of greenish fluid. She had x3 BMs in ER but none since admission. Patient reports that she is passing gas. Code(s): R10.9 - UNSPECIFIED ABDOMINAL PAIN (4) Anxiety Status: Acute Assessment & Plan: Patient takes xanax 1 mg TID. She has repeatedly asked for this medication since being admitted. She had to be transitioned to ativan IV while in hospital. She had a panic attack episode just prior to transfer. Unsure what is the cause of her severe anxiety. She has had to go to [facility] before for her bowel obstructions in the past. She has psych that she has not established with yet but has appt to start seeing. Ativan was ordered for TID as needed Code(s): F41.9 - ANXIETY DISORDER, UNSPECIFIED (5) Anemia Status: Acute Assessment & Plan: Likely anemia of chronic disease. Anemia appears to be normocytic. Patient possibly had dilution drop of hgb while in hospital however she may need further work up including FOBT testing. Code(s): D64.9 - ANEMIA, UNSPECIFIED (6) AURORA (acute kidney injury) Status: Acute Assessment & Plan: Patient had mild aurora on ckd. It appeared to have resolved quickly after patient was started on iv fluids and her vomiting was better controlled. Code(s): N17.9 - ACUTE KIDNEY FAILURE, UNSPECIFIED (7) CKD (chronic kidney disease) Status: Acute Code(s): N18.9 - CHRONIC KIDNEY DISEASE, UNSPECIFIED (8) Vertigo Status: Acute Assessment & Plan: Chronic for patient and she takes medication PRN for this. Code(s): R42 - DIZZINESS AND GIDDINESS (9) Chronic urinary tract infection Status: Chronic Assessment & Plan: Patient is on prophylactic antibiotics for her recurrent UTIs. She sees urology for interstitial cystitis as well Code(s): N39.0 - URINARY TRACT INFECTION, SITE NOT SPECIFIED Hospital Summary - Hospital Course Hospital Course: Patient was accepted for temporary admission until a bed became available at . Due to patient's previous medical and surgical history it was felt that patient would benefit from being at a larger tertiary facility where she would be able to be seen by her specialists especially if she required surgery. Patient had NG tube placed in ER and was made NPO. Patient did have a few BMs and started passing gas while in ER. Following admission patient did not have any other BMs other than those in ER. Patient had NG hooked up to wall suction. Patient was had PO trial with ice chips and tolerated that well. She was then given her PO meds for the day and vomited 20 minutes after. Patient was then restarted on NPO status. No more episodes of vomiting. She was then started on ice chips earlier in the morning and tolerated ice chips. Patient had 600 ml wall suction canister since admission. Bowel sounds were absent on physical exam this am. Patient reports she is passing gas. Patient was still complaining of pain this am but reports improved abdominal distention. Patient also has severe anxiety and was repeatedly asking for Xanax. Patient had a panic attack episode just prior to transfer. Patient was visibly upset about having to go [facility] for her bowel obstruction. - Vitals & Intake/Output Vital Signs: Vital Signs Temperature 98.4 F 03/21/19 07:29 Pulse Rate 88 03/21/19 07:29 Respiratory Rate 18 03/21/19 07:29 Blood Pressure 126/63 03/21/19 07:29 O2 Sat by Pulse Oximetry 96 03/21/19 08:32 Intake & Output: Intake & Output 03/18/19 03/19/19 03/20/19 03/21/19 11:59 11:59 11:59 11:59 Intake Total 653 Output Total 1000 Balance -347 Weight 151 kg 150.7 kg - Lab Result Diagrams: 03/21/19 05:05 03/21/19 05:05 Lab Results-Last 24 Hrs: Lab Results-Last 24 Hours 03/21/19 03/21/19 Range/Units 05:05 05:05 WBC 4.7 (4.0-10.5) K/mm3 RBC 3.43 L (4.1-5.4) M/mm3 Hgb 10.6 L D (12.0-16.0) gm/dl Hct 33.1 L (35-47) % MCV 96.5 (78-100) fl MCH 30.9 (26-32) pg MCHC 32.0 (32-36) g/dl RDW 13.3 (11.5-14.0) % Plt Count 135 L (150-450) K/mm3 MPV 11.0 (7.5-11.0) fl Gran % 80.7 H (36.0-66.0) % Eos # (Auto) 0.02 (0-0.5) Absolute Lymphs (auto) 0.66 L (1.0-4.6) Absolute Monos (auto) 0.23 (0.0-1.3) Lymphocytes % 14.0 L (24.0-44.0) % Monocytes % 4.9 (0.0-12.0) % Eosinophils % 0.4 (0.00-5.0) % Basophils % 0.0 (0.0-0.4) % Absolute Granulocytes 3.82 (1.4-6.9) Basophils # 0 (0-0.4) Sodium 143 (137-145) mmol/L Potassium 4.2 (3.5-5.1) mmol/L Chloride 112 H (98-107) mmol/L Carbon Dioxide 24 (22-30) mmol/L Anion Gap 11.0 (5-15) MEQ/L BUN 17 (7-17) mg/dL Creatinine 0.81 (0.52-1.04) mg/dL Estimated GFR > 60.0 ML/MIN Glucose 115 H (74-106) mg/dL Calcium 8.3 L (8.4-10.2) mg/dL Micro Results-Entire Visit: Microbiology 03/20/19 01:49 Urine Culture - Preliminary Urine, Void GRAM NEGATIVE ID AND SENSITIVITY PENDING - Radiology Exams Ordered Rad Exams-Entire Visit: Radiology Procedures Category Date Time Status ABDOMEN AND PELVIS W/0 CONTRAS [CT] Stat Exams 03/20/19 00:28 Completed ABDOMEN AND PELVIS W/0 CONTRAS [CT] Stat Exams 03/20/19 09:19 Completed - Procedures and Test Procedures and Tests throughout Hospitalization: Therapy Orders & Screens 03/20/19 02:29 Respiratory Therapy Assessment DAILY Comment: 03/21/19 08:31 Oxygen NASAL CANNULA 2 lpm Comment: Diagnosis: partial sbo - Discharge Disposition: DC TO OTHER HOSP Condition: Stable Prescriptions: No Action Alprazolam 1 mg [Xanax 1 mg] 1 mg PO TID Polyethylene Glycol 3350 17 gm [Miralax Powder 17GM PACKET] 34 gm PO BID Sennosides/Docusate Sodium [Senokot-S Tablet] 1 tab PO DAILY Promethazine HCl 25 mg [Phenergan 25 mg] 25 mg PO Q4HPRN PRN PRN Reason: Nausea Cetirizine HCl/Pseudoephedrine [Zyrtec-D Tablet] 1 each PO DAILY Aspirin 81 mg PO DAILY Levothyroxine Sodium 50 Mcg [Synthroid 50 Mcg] 50 mcg PO DAILY Linaclotide [Linzess] 290 mcg PO DAILY Meclizine HCl 25 mg PO Q8H PRN PRN #10 tablet PRN Reason: Dizziness Rizatriptan Benzoate [Maxalt] 10 mg PO BID PRN PRN PRN Reason: MIGRAINE Glycopyrrolate/Formoterol Fum [Bevespi Aerosphere Inhaler] 2 inh IH BID Sodium Bicarbonate 650 mg PO DAILY PANTOPRAZOLE 40 mg Tablet [Protonix 40MG Tablet] 40 mg PO QAM Fluticasone Propionate [Flonase NASAL] 2 spray NS DAILY Ketorolac Tromethamine [Toradol] 10 mg PO Q6H 8 Days #30 tablet Levofloxacin [Levaquin] 500 mg PO DAILY Cephalexin Mh 250 mg [Keflex 250 mg] 250 mg PO DAILY Phenazopyridine HCl 200 mg [Pyridium 200 mg] 200 mg PO BID PRN PRN Reason: Pain Additional Instructions: Patient's PO meds were held due to current status. Her xanax was swiched to ativan IV. She may need her other meds in liquid form if available. Patient was started on Levaquin as outpatient for COPD but I did not resume this medication IV as I did not feel she was in acute exacerbation. She is on the cephlasporin for UTI prophylaxis. Follow up with: LLUVIA PERRY DO [Primary Care Provider] - 1 Week Forms: Transfer Record [employer]
[2019-03-21] MEDS ORDERED: BENADRYL 50 MG/ML IV ONE (09:15)
[2019-03-21] MEDS: Zofran 4 MG/2 ML VIAL IV PRN (09:32)
[2019-03-21] MEDS: Sodium Chloride 0.9% 1000 ML 1,000 ML IV SCH (09:47)
[2019-03-21] MEDS ORDERED: PSEUDOEPHEDRINE PO SCH (10:00)
[2019-03-21] MEDS ORDERED: NON-FORMULARY ITEM (Linaclotide [Linzess] 290 MCG) PO SCH (10:00)
[2019-03-21] MEDS ORDERED: NON-FORMULARY ITEM (Aspirin [Aspirin] 81 MG) PO SCH (10:00)
[2019-03-21] MEDS ORDERED: Protonix 40MG Tablet PO SCH (10:00)
[2019-03-21] MEDS ORDERED: PROTONIX 40 MG IV IV SCH (10:00)
[2019-03-21] MEDS ORDERED: CETIRIZINE HCL PO SCH (10:00)
[2019-03-21] MEDS ORDERED: SODIUM BICARBONATE 650 MG PO SCH (10:00)
== END 2019-03-21 10:30 ==
LOC: ED 00:02 → MED SURG 11:03
PROVIDERS: ADMIT Family Medicine; ATTEND Family Medicine
DX: K56.609 Unspecified intestinal obstruction, unspecified as to partial versus complete obstruction (principal); K59.8 Other specified functional intestinal disorders; J44.9 Chronic obstructive pulmonary disease, unspecified; E03.9 Hypothyroidism, unspecified; R42 Dizziness and giddiness; R51 Headache; F41.9 Anxiety disorder, unspecified; R10.84 Generalized abdominal pain; D64.9 Anemia, unspecified; N17.9 Acute kidney failure, unspecified; N18.9 Chronic kidney disease, unspecified; N39.0 Urinary tract infection, site not specified; Z79.899 Other long term (current) drug therapy
CPT/HCPCS: 36000; 36415; 74176; 80048; 80053; 81001; 83605; 83690; 85025; 87077; 87086; 87186; 94640; 94760; 96360; 96361; 96374; 96375; 96376; 99285; G0378; J1200; J2060; J2270; J2300; J2405; J7609; A9270-GY

== ENCOUNTER 2019-03-26 23:51 | Emergency (ER) | payer MEDICARE ==
[2019-03-27] MEDS ORDERED: Sodium Chloride 0.9% 1000 ML 1,000 ML IV STA (00:17)
[2019-03-27] MEDS ORDERED: Sodium Chloride 0.9% 1000 ML 1,000 ML ONE (00:21)
--- NOTE | 2019-03-27 00:25 | ERPHSYRPT ---
- History of Present Illness Time Seen by Provider: 03/27/19 00:05 Historian: patient Exam Limitations: no limitations Physician History: 63 years old female with history of chronic abdominal pain with multiple surgeries in the past including partial colectomy, intractable constipation needing disimpaction in the past presented today with increasing abdominal pain and distention for the last 3 days. Patient was recently admitted to [facility] with low potassium and inability to move her bowel but was able to disimpact herself, left hospital AGAINST MEDICAL ADVICE. Patient reports nausea but no vomiting and symptoms similar to previous episodes when he has obstructions. No fever or chills reported. Patient wants to be transported back to [facility]. Timing/Duration: day(s) (3) Activities at Onset: rest Quality: fullness, sharpness Abdominal Pain Onset Location: generalized abdomen Pain Radiation: no radiation Severity of Pain-Max: moderate Severity of Pain-Current: moderate Modifying Factors: Improves With: nothing Previous symptoms: same symptoms as today Allergies/Adverse Reactions: sumatriptan [From Imitrex] Allergy (Intermediate, Verified 03/20/19 00:54) Rash codeine Allergy (Mild, Verified 03/20/19 00:54) Rash MAKES SICK nitrofurantoin [From Macrobid] Allergy (Unknown, Verified 03/20/19 00:54) sumatriptan succinate [From Imitrex] Allergy (Verified 03/20/19 00:54) morphine Adverse Reaction (Severe, Verified 03/20/19 00:54) Headache MIGRAINES fentanyl Adverse Reaction (Intermediate, Verified 03/20/19 00:54) Headache hydrocodone bitartrate [From Vicodin] Adverse Reaction (Mild, Verified 03/20/19 00:54) Vomiting hydromorphone [From Dilaudid] Adverse Reaction (Mild, Verified 03/20/19 00:54) pt states makes heache worse. Home Medications: Alprazolam 1 mg [Xanax 1 mg] 1 mg PO TID 02/17/13 [History] Polyethylene Glycol 3350 17 gm [Miralax Powder 17GM PACKET] 34 gm PO BID 03/01 [History] Sennosides/Docusate Sodium [Senokot-S Tablet] 1 tab PO DAILY 04/25/15 [History] Promethazine HCl 25 mg [Phenergan 25 mg] 25 mg PO Q4HPRN PRN 05/11/15 [ History] Cetirizine HCl/Pseudoephedrine [Zyrtec-D Tablet] 1 each PO DAILY 02/03/16 [ History] Aspirin 81 mg PO DAILY 09/11/16 [History] Levothyroxine Sodium 50 Mcg [Synthroid 50 Mcg] 50 mcg PO DAILY 07/06/17 [ History] Linaclotide [Linzess] 290 mcg PO DAILY 10/07/17 [History] Rizatriptan Benzoate [Maxalt] 10 mg PO BID PRN PRN 06/23/18 [History] Glycopyrrolate/Formoterol Fum [Bevespi Aerosphere Inhaler] 2 inh IH BID [History] Fluticasone Propionate [Flonase NASAL] 2 spray NS DAILY 01/19/19 [History] PANTOPRAZOLE 40 mg Tablet [Protonix 40MG Tablet] 40 mg PO QAM 01/19/19 [ History] Sodium Bicarbonate 650 mg PO DAILY 01/19/19 [History] Cephalexin Mh 250 mg [Keflex 250 mg] 250 mg PO DAILY 03/20/19 [History] Levofloxacin [Levaquin] 500 mg PO DAILY 03/20/19 [History] Phenazopyridine HCl 200 mg [Pyridium 200 mg] 200 mg PO BID PRN 03/20/19 [ History] Hx Tetanus, Diphtheria Vaccination/Date Given: Yes Hx Influenza Vaccination/Date Given: Yes Hx Pneumococcal Vaccination/Date Given: Yes - Review of Systems Constitutional: No Symptoms Eyes: No Symptoms Ears, Nose, & Throat: No Symptoms Respiratory: No Symptoms Cardiac: No Symptoms Abdominal/Gastrointestinal: Abdominal Pain, Nausea, Constipation Genitourinary Symptoms: No Symptoms Musculoskeletal: No Symptoms Skin: No Symptoms Neurological: No Symptoms Psychological: No Symptoms Endocrine: No Symptoms Hematologic/Lymphatic: No Symptoms Immunological/Allergic: No Symptoms - Past Medical History Pertinent Past Medical History: Yes Neurological History: Migraines ENT History: Cataracts, Other Cardiac History: No Pertinent History Respiratory History: Bronchitis, COPD, Other Endocrine Medical History: Hypothyroidism, Other Musculoskeletal History: Arthritis, Degenerative Disk Disease, Osteoarthritis, Other GI Medical History: GERD, Irritable Bowel, Ulcer, Other (Chronic intestinal pseudo obstruction) History: Other (kidney stones) Psycho-Social History: Anxiety Female Reproductive Disorders: Other Other Medical History: Recurrent UTI,urine kidney/bladder problems recurrent. 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 TRACHEA MALASIA - Past Surgical History Past Surgical History: Yes Neuro Surgical History: No Pertinent History Cardiac: No Pertinent History Respiratory: No Pertinent History Gastrointestinal: Bowel Surgery, Cholecystectomy, Colon Resection, Hernia Repair Genitourinary: Other Musculoskeletal: No Pertinent History Female Surgical History: Hysterectomy Other Surgical History: COLONOSCOPIES, EGDs. Total colectomy. FEEDING TUBE FOR 4 YEARS, stretches of bladder and urethra, bowel obstructions x2, lithotripsy. bronch on 1320 - Social History Smoking Status: Never smoker Exposure to second hand smoke: No Alcohol Use: None Drug Use: none Patient Lives Alone: Yes Significant Family History: no pertinent family hx - Nursing Vital Signs Nursing Vital Signs: Initial Vital Signs Temperature 98.0 F 03/26/19 23:56 Pulse Rate 104 H 03/26/19 23:56 Respiratory Rate 20 03/26/19 23:56 Blood Pressure 123/67 03/26/19 23:56 O2 Sat by Pulse Oximetry 95 03/26/19 23:56 Pain Scale Pain Intensity 8 - Physical Exam General Appearance: no apparent distress Eye Exam: eyes nml inspection Ears, Nose, Throat Exam: normal ENT inspection, pharynx normal Neck Exam: normal inspection, non-tender, supple, full range of motion Respiratory Exam: diminished breath sounds, crackles/rales, No chest tenderness , No respiratory distress Cardiovascular Exam: regular rate/rhythm, normal heart sounds, normal peripheral pulses Gastrointestinal/Abdomen Exam: soft, tenderness (generalized), other (decreased BS), No distention, No guarding Back Exam: normal inspection Extremity Exam: normal inspection Neurologic Exam: alert, 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, cooperative Skin Exam: normal color SpO2 Interpretation: normal O2 Delivery: Room Air - Course Nursing assessment & vital signs reviewed: Yes Ordered Tests: Active Orders 24 hr Category Date Time Status IV Insertion STAT Care 03/27/19 00:17 Active ABDOMEN AND PELVIS W/0 CONTRAS [CT] Stat Exams 03/27/19 00:18 Taken CBC W DIFF Stat Lab 03/27/19 00:30 Completed CMP Stat Lab 03/27/19 00:30 Completed LIPASE Stat Lab 03/27/19 00:30 Completed UA W/RFX UR CULTURE Stat Lab 03/27/19 00:18 Uncollected Medication Summary Discontinued Medications Generic Name Dose Route Start Last Admin Trade Name Elton PRN Reason Stop Dose Admin Sodium Chloride 1,000 mls @ 999 mls/hr 03/27/19 00:17 03/27/19 00:22 Sodium Chloride 0.9% 1000 Ml IV 03/27/19 01:17 999 mls/hr .Q1H1M STA Administration Sodium Chloride Confirm 03/27/19 00:21 Sodium Chloride 0.9% 1000 Ml Administered 03/27/19 00:22 Dose 1,000 mls @ ud .ROUTE .STK-MED ONE Lab/Rad Data: Laboratory Result Diagrams 03/27/19 00:30 03/27/19 00:30 Laboratory Results 03/27/19 03/27/19 Range/Units 00:30 00:30 WBC 3.1 L (4.0-10.5) K/mm3 RBC 3.32 L (4.1-5.4) M/mm3 Hgb 10.4 L (12.0-16.0) gm/dl Hct 31.5 L (35-47) % MCV 94.9 (78-100) fl MCH 31.3 (26-32) pg MCHC 33.0 (32-36) g/dl RDW 13.5 (11.5-14.0) % Plt Count 155 (150-450) K/mm3 MPV 10.4 (7.5-11.0) fl Gran % 57.2 (36.0-66.0) % Eos # (Auto) 0.11 (0-0.5) Absolute Lymphs (auto) 0.90 L (1.0-4.6) Absolute Monos (auto) 0.30 (0.0-1.3) Lymphocytes % 29.0 (24.0-44.0) % Monocytes % 9.7 (0.0-12.0) % Eosinophils % 3.5 (0.00-5.0) % Basophils % 0.6 (0.0-0.4) % Absolute Granulocytes 1.77 (1.4-6.9) Basophils # 0.02 (0-0.4) Sodium 141 (137-145) mmol/L Potassium 3.0 L (3.5-5.1) mmol/L Chloride 116 H (98-107) mmol/L Carbon Dioxide 19 L (22-30) mmol/L Anion Gap 8.5 (5-15) MEQ/L BUN 10 (7-17) mg/dL Creatinine 0.96 (0.52-1.04) mg/dL Estimated GFR > 60.0 ML/MIN Glucose 133 H (74-106) mg/dL Calcium 8.6 (8.4-10.2) mg/dL Total Bilirubin 0.60 (0.2-1.3) mg/dL AST 23 (14-36) U/L ALT 13 (0-35) U/L Alkaline Phosphatase 76 (38-126) U/L Serum Total Protein 6.0 L (6.3-8.2) g/dL Albumin 3.1 L (3.5-5.0) g/dL Lipase 151 (23-300) U/L - Progress Progress: improved, pain not gone completely, re-examined Progress Note: she is given IV fluids. Patient refused pain medications. I have obtained CT without arm cast which did not show any obstruction. She does have productive cough and CT showed bilateral pleural effusion, patient recently had pneumonia, I would start her on antibiotics as well. She has hypokalemia and given oral potassium replacement here and will continue for a few days to go home. She is not in any distress on presentation, counseled and is stable for discharge with outpatient followup. Discussed symptoms / signs of worsening needing return to ER which she seemed understanding. 03/27/19 01:49 Counseled pt/family regarding: lab results, diagnosis, need for follow-up, rad results - Departure Departure Disposition: Home Clinical Impression: Pleural effusion, Cough, Hypokalemia Abdominal pain Qualifiers: Abdominal location: generalized Qualified Code(s): R10.84 - Generalized abdominal pain Condition: Stable Critical Care Time: No Referrals: LLUVIA CHILDERS DO [Primary Care Provider] - (1-2 days for re evaluation) Instructions: Acute Abdomen (Belly Pain), Adult (DC) Additional Instructions: continue with your medications for her constipation. Followup with primary care for reevaluation. return to the ER for any worsening. Prescriptions: Doxycycline Hyclate 100 mg [Vibramycin 100 MG] 100 mg PO BID #14 tab Potassium Chloride 10 Meq Tab* [Klor Con 10 MEQ] 10 meq PO BID #10 tab
[2019-03-27 00:37] LABS: Absolute Neutrophil Ct (ANC) 1.77 (1.4-6.9); BASOPHIL % 0.6 % (0.0-0.4); Basophil (Absolute #) 0.02 (0-0.4); Eosinophil % 3.5 % (0.00-5.0); Eosinophil (Absolute #) 0.11 (0-0.5); Hematocrit 31.5 % (35-47); Hemoglobin 10.4 gm/dl (12.0-16.0); Mean Cell Volume 94.9 fl (78-100); Mean Corpuscular Hemoglobin 31.3 pg (26-32); Mean Platelet Volume 10.4 fl (7.5-11.0); Monocytes % 9.7 % (0.0-12.0); Neutrophil % 57.2 % (36.0-66.0); Platelet Count 155 K/mm3 (150-450); Red Blood Count 3.32 M/mm3 (4.1-5.4); Red Cell Distribution Width 13.5 % (11.5-14.0); White Blood Count 3.1 K/mm3 (4.0-10.5)
[2019-03-27 00:44] LABS: ALBUMIN 3.1 g/dL (3.5-5.0); ALKALINE PHOSPHATASE 76 U/L (38-126); ANION GAP 8.5 MEQ/L (5-15); BLOOD UREA NITROGEN 10 mg/dL (7-17); CHLORIDE 116 mmol/L (98-107); Calcium 8.6 mg/dL (8.4-10.2); Carbon Dioxide 19 mmol/L (22-30); Creatinine 1 0.96 mg/dL (0.52-1.04); Glucose 133 mg/dL (74-106); LIPASE 151 U/L (23-300); SGOT/AST 23 U/L (14-36); SGPT/ALT 13 U/L (0-35); SODIUM 141 mmol/L (137-145)
[2019-03-27 00:54] VITALS: BP 107/70
[2019-03-27] MEDS ORDERED: Vibramycin 100 MG PO ONE (01:41)
[2019-03-27] MEDS ORDERED: K-LYTE 25 MEQ PO ONE (01:41)
[2019-03-27] MEDS ORDERED: Vibramycin 100 MG ONE (01:57)
[2019-03-27] MEDS ORDERED: K-LYTE 25 MEQ ONE (01:58)
[2019-03-27 02:21] VITALS: PULSE 88; O2SAT 94
--- NOTE | 2019-03-27 09:02 | XRAY ---
Indication: Abdomen pain. Status post bowel resection for obstruction. Last bowel movement 6 days ago. Multiple contiguous axial images obtained through the abdomen and pelvis without contrast as ordered. Comparison: March 20, 2019. Lung bases demonstrates new moderate bilateral effusions with mild bibasilar compressive atelectasis. Stable left lung base noncalcified nodules, right infrahilar calcified nodes, and small distal paraesophageal calcified node all favored to be granulomatous. Heart is not enlarged. NG tube has been removed. Noncontrasted stomach and bowel loops appear nonobstructed. Stable colectomy with intact sigmoid anastomosis, cholecystectomy, hysterectomy, tiny right renal cyst, and left renal cortical scarring. Remaining liver, pancreas, spleen, adrenal glands, kidneys, ureters, bladder, and aorta appear unremarkable for noncontrast exam. Impression: 1. New bibasilar effusions/atelectasis as detailed. 2. Stable right renal cyst, left renal scarring, and evidence for old granulomatous disease. 3. Remaining CT abdomen/pelvis without contrast exam is negative. Comment: Preliminary interpretation was made by [facility]. No critical discrepancy.
== END 2019-03-27 02:49 | disposition home or self-care (01) ==
LOC: ED 23:51
DX: J90 Pleural effusion, not elsewhere classified (principal); R05 Cough; E87.6 Hypokalemia; R10.84 Generalized abdominal pain; R11.0 Nausea; Z79.899 Other long term (current) drug therapy; K59.00 Constipation, unspecified; J44.9 Chronic obstructive pulmonary disease, unspecified; E03.9 Hypothyroidism, unspecified; K58.9 Irritable bowel syndrome, unspecified
CPT/HCPCS: 36000; 36415; 74176; 80053; 83690; 85025; 96374; 99284; J1642; A9270-GY

== ENCOUNTER 2019-06-12 16:32 | Emergency (ER) | payer MEDICARE ==
[2019-06-12 17:01] LABS: Absolute Neutrophil Ct (ANC) 5.09 (1.4-6.9); BASOPHIL % 0.3 % (0.0-0.4); Basophil (Absolute #) 0.02 (0-0.4); Eosinophil % 0.6 % (0.00-5.0); Eosinophil (Absolute #) 0.04 (0-0.5); Hematocrit 40.8 % (35-47); Hemoglobin 13.5 gm/dl (12.0-16.0); Lymphocyte (Absolute #) 1.12 (1.0-4.6); Lymphocytes % 16.9 % (24.0-44.0); Mean Cell Volume 89.3 fl (78-100); Mean Corpuscular Hemoglobin 29.5 pg (26-32); Mean Corpuscular Hgb Concent. 33.1 g/dl (32-36); Mean Platelet Volume 10.4 fl (7.5-11.0); Monocyte (Absolute #) 0.34 (0.0-1.3); Monocytes % 5.1 % (0.0-12.0); Neutrophil % 77.1 % (36.0-66.0); Platelet Count 196 K/mm3 (150-450); Red Blood Count 4.57 M/mm3 (4.1-5.4); Red Cell Distribution Width 13.3 % (11.5-14.0); White Blood Count 6.6 K/mm3 (4.0-10.5)
--- NOTE | 2019-06-12 17:10 | XRAY ---
Indication: Cough, short of breath, and chills. Suspect COVID 19. Comparison: March 08, 2019. Portable chest unchanged again demonstrating mild right mid to lower lung fibrosis/scarring, right hilar calcified nodes, and right Port-A-Cath. Heart is not enlarged. Bony thorax intact. No new/acute findings.
[2019-06-12 17:22] LABS: ALBUMIN 4.3 g/dL (3.5-5.0); ANION GAP 18.2 MEQ/L (5-15); BILIRUBIN,TOTAL 0.6 mg/dL (0.2-1.3); Calcium 9.4 mg/dL (8.4-10.2); Creatinine 1 1.04 mg/dL (0.52-1.04); MAGNESIUM 1.5 mg/dL (1.6-2.3); NT PRO BNP 70.7 pg/mL (0-900); Potassium 4.1 mmol/L (3.5-5.1)
[2019-06-12 17:30] LABS: A-aADO2 20; ABG HEMOGLOBIN 12.9; ABG POTASSIUM 3.7 (3.5-5.1); ABG SITE LEFT RADIAL; ALLEN TEST OK? YES; ARTERIAL BLOOD GAS BASE EXCESS -5.4 (-2.0-2.0); ARTERIAL BLOOD GAS FIO2 21 %; ARTERIAL BLOOD GAS PCO2 26 mmHg (35-45); ARTERIAL BLOOD GAS PO2 97 mmHg (75-100); ARTERIAL BLOOD GAS pH 7.43 (7.35-7.45); CARBOXYHEMOGLOBIN 0.8 % THgb (0.0-6.9); HCO3- 17.3 (22-28); HGB O2 SAT 97.4 g/dF (94-100); Methhemoglobin 0.8 % (1.4-1.5); paO2 pAO1 0.83
[2019-06-12 17:33] LABS: INFLUENZA A NEGATIVE (NEGATIVE); INFLUENZA B NEGATIVE (NEGATIVE); RESPIRATORY SYNCTIAL VIRUS NEGATIVE (Negative)
[2019-06-12] MEDS ORDERED: Magnesium Sulfate 1 GM/2 ML VIAL IV STA (17:38)
[2019-06-12] MEDS ORDERED: Magnesium 1 Gm / 100 Ml D5W*** 100 ML IV ONE ×2 (17:44→18:20)
[2019-06-12] MEDS: Magnesium 1 Gm / 100 Ml D5W*** 100 ML IV SCH ×2 (17:46→18:36)
[2019-06-12] MEDS ORDERED: Sodium Chloride 0.9% 1000 ML 1,000 ML IV STA (17:48)
[2019-06-12] MEDS ORDERED: Sodium Chloride 0.9% 1000 ML 1,000 ML ONE (18:20)
--- NOTE | 2019-06-12 19:42 | ERPHSYRPT ---
- History of Present Illness Time Seen by Provider: 06/12/19 17:00 Source: patient Exam Limitations: no limitations Patient Subjective Stated Complaint: Pt c/o of shortness of breath that began on Wednesday, pt reports that she had bronchitis and then pneumonia in April she thinks, unproductive cough Triage Nursing Assessment: Pt walked into the ER with a very slow unstable gait , pt is very short of breath, pt states that she began getting SOB on Wednesday, pulses normal, lungs clear, tachycardic, afebrile, unproductive cough Timing/Duration: day(s) (3 days) Activities at Onset: activity Severity of Dyspnea-Max: moderate Severity of Dyspnea-Current: mild Possible Cause: occasional episodes Associated Symptoms: cough, No fever, No lightheadedness, No ankle swelling, No lightheadedness, No leg swelling Allergies/Adverse Reactions: sumatriptan [From Imitrex] Allergy (Intermediate, Verified 06/12/19 17:00) Rash codeine Allergy (Mild, Verified 06/12/19 17:00) Rash MAKES SICK nitrofurantoin [From Macrobid] Allergy (Unknown, Verified 06/12/19 17:00) sumatriptan succinate [From Imitrex] Allergy (Verified 06/12/19 17:00) morphine Adverse Reaction (Severe, Verified 06/12/19 17:00) Headache MIGRAINES fentanyl Adverse Reaction (Intermediate, Verified 06/12/19 17:00) Headache hydrocodone bitartrate [From Vicodin] Adverse Reaction (Mild, Verified 06/12/19 17:00) Vomiting hydromorphone [From Dilaudid] Adverse Reaction (Mild, Verified 06/12/19 17:00) pt states makes heache worse. Home Medications: Alprazolam 1 mg [Xanax 1 mg] 1 mg PO TID 02/17/13 [History] Polyethylene Glycol 3350 17 gm [Miralax Powder 17GM PACKET] 34 gm PO BID 03/01 [History] Sennosides/Docusate Sodium [Senokot-S Tablet] 1 tab PO DAILY 04/25/15 [History] Promethazine HCl 25 mg [Phenergan 25 mg] 25 mg PO Q4HPRN PRN 05/11/15 [ History] Cetirizine HCl/Pseudoephedrine [Zyrtec-D Tablet] 1 each PO DAILY 02/03/16 [ History] Aspirin 81 mg PO DAILY 09/11/16 [History] Levothyroxine Sodium 50 Mcg [Synthroid 50 Mcg] 50 mcg PO DAILY 07/06/17 [ History] Linaclotide [Linzess] 290 mcg PO DAILY 10/07/17 [History] Rizatriptan Benzoate [Maxalt] 10 mg PO BID PRN PRN 06/23/18 [History] Fluticasone Propionate [Flonase NASAL] 2 spray NS DAILY 01/19/19 [History] Sodium Bicarbonate 650 mg PO DAILY 01/19/19 [History] Phenazopyridine HCl 200 mg [Pyridium 200 mg] 200 mg PO BID PRN 03/20/19 [ History] Guaifenesin 600 mg ER [Mucinex 600MG ER Tabs] 600 mg PO DAILY 04/05/19 [ History] Ketorolac Tromethamine [Toradol] 10 mg PO Q6H PRN 04/05/19 [History] Sucralfate 1 gm [Carafate 1 GM] 1 g PO ACHS 04/05/19 [History] Hx Tetanus, Diphtheria Vaccination/Date Given: Yes Hx Influenza Vaccination/Date Given: Yes Hx Pneumococcal Vaccination/Date Given: Yes Travel Risk - International Travel Have you traveled outside of the country in past 3 weeks: (N) Have you or anyone close to you been diagnosed with or: No Do your reside in a community with a known COVID-19 case?: Yes If Yes where:: [facility] [place] - Coronavirus Screening Has patient experienced Coronavirus symptoms: Yes Symptoms experienced: respiratory symptoms (i.e.Cought,shortness of breath), weakness Date of respiratory symptoms onset:: 06/09/19 - Review of Systems Constitutional: No Symptoms, No Fever, No Chills Eyes: No Symptoms Ears, Nose, & Throat: No Symptoms Respiratory: No Symptoms, No Cough, No Dyspnea Cardiac: No Symptoms, No Chest Pain, No Edema, No Syncope Abdominal/Gastrointestinal: No Symptoms, No Abdominal Pain, No Nausea, No Vomiting, No Diarrhea Genitourinary Symptoms: No Symptoms, No Dysuria Musculoskeletal: No Symptoms, No Back Pain, No Neck Pain Skin: No Symptoms, No Rash Neurological: No Symptoms, No Dizziness, No Focal Weakness, No Sensory Changes Psychological: No Symptoms Endocrine: No Symptoms Immunological/Allergic: No Symptoms All Other Systems: Reviewed and Negative - Past Medical History Pertinent Past Medical History: Yes Neurological History: Migraines ENT History: Cataracts, Other Cardiac History: No Pertinent History Respiratory History: Bronchitis, COPD, Other Endocrine Medical History: Hypothyroidism, Other Musculoskeletal History: Arthritis, Degenerative Disk Disease, Osteoarthritis, Other GI Medical History: GERD, Irritable Bowel, Ulcer, Other History: Other Psycho-Social History: Anxiety Female Reproductive Disorders: Other Other Medical History: Recurrent UTI,urine kidney/bladder problems recurrent. 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 TRACHEA MALASIA - Past Surgical History Past Surgical History: Yes Neuro Surgical History: No Pertinent History Cardiac: No Pertinent History Respiratory: No Pertinent History Gastrointestinal: Bowel Surgery, Cholecystectomy, Colon Resection, Hernia Repair Genitourinary: Other Musculoskeletal: No Pertinent History Female Surgical History: Hysterectomy Other Surgical History: COLONOSCOPIES, EGDs. Total colectomy. FEEDING TUBE FOR 4 YEARS, stretches of bladder and urethra, bowel obstructions x2, lithotripsy. bronch on 1320 - Social History Smoking Status: Never smoker Exposure to second hand smoke: No Alcohol Use: None Drug Use: none Patient Lives Alone: Yes Significant Family History: no pertinent family hx - Female History Hx Now: No - Nursing Vital Signs Nursing Vital Signs: Initial Vital Signs Temperature 98.1 F 06/12/19 16:45 Pulse Rate 113 H 06/12/19 16:45 Blood Pressure 127/67 06/12/19 16:45 O2 Sat by Pulse Oximetry 97 06/12/19 16:45 Pain Scale Pain Intensity 5 - Physical Exam General Appearance: no apparent distress, alert Eye Exam: PERRL/EOMI Ears, Nose, Throat Exam: hearing grossly normal, normal ENT inspection, No tonsillar exudate (somewhat dry appearing mucous membranes. ) Neck Exam: normal inspection, supple Respiratory Exam: normal breath sounds, lungs clear, airway intact, No chest tenderness, No respiratory distress, No diminished breath sounds, No accessory muscle use Cardiovascular/Chest Exam: normal heart sounds, regular rate/rhythm Abdominal/Gastrointestinal Exam: soft, No tenderness, No distention, No mass Extremity Exam: non-tender, normal range of motion, normal inspection, no calf tenderness, no pedal edema Peripheral Pulses Exam: dorsalis-pedis (R): 2+, dorsalis-pedis (L): 2+ Neurologic Exam: alert, 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, cooperative, assignment editor II-XII nml as tested, sensation nml, No motor deficits Skin Exam: normal color, warm, No dry Lymphatic Exam: adenopathy SpO2 Interpretation: normal SpO2: 98 O2 Delivery: Room Air - Course Nursing assessment & vital signs reviewed: Yes EKG Interpreted by Me: RATE, Sinus Tach (HR 104), NORMAL AXIS, NORMAL INTERVALS - Radiology Exams Chest X-ray Interpretation: Teleradiologist Report (Rt. Hilar calcified nodes, lung scarring/fibrosis) - CT Exams Chest CT Interpretation: Tele-radiologist Report (Negative for PE. Scarring/ fibrosis. 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 NO active findings) Ordered Tests: Active Orders 24 hr Category Date Time Status Utility Accounts Director STAT Care 06/12/19 16:39 Active EKG-ER Only STAT Care 06/12/19 16:37 Active IV Insertion STAT Care 06/12/19 16:37 Active IV Insertion-2nd Peripheral STAT Care 06/12/19 16:59 Active Isolation, Initiate & Maintain Q4H Care 06/12/19 16:59 Active Pulse Oximetry (ED) STAT Care 06/12/19 16:37 Active CHEST 1 VIEW (PORTABLE) Stat Exams 06/12/19 16:39 Completed CHEST WITH CONTRAST [CT] Stat Exams 06/12/19 17:48 Taken ARTERIAL BLOOD GASES Stat Lab 06/12/19 17:25 Completed BLOOD CULTURE Stat Lab 06/12/19 16:45 Received CBC W DIFF Stat Lab 06/12/19 16:37 Completed CMP Stat Lab 06/12/19 16:37 Completed MAGNESIUM Stat Lab 06/12/19 16:37 Completed NT PRO BNP Stat Lab 06/12/19 16:37 Completed TROPONIN Q3H Lab 06/12/19 16:45 Completed TROPONIN Q3H Lab 06/12/19 19:45 Ordered TROPONIN Q3H Lab 06/12/19 22:45 Ordered TROPONIN Q3H Lab 06/13/19 01:45 Ordered TROPONIN Q3H Lab 06/13/19 04:45 Ordered UA W/RFX UR CULTURE Stat Lab 06/12/19 16:38 Uncollected Medication Summary Generic Name Dose Route Start Last Admin Trade Name Elton PRN Reason Stop Dose Admin Magnesium Sulfate/Dextrose 100 mls @ 100 mls/hr 06/12/19 17:45 06/12/19 18:36 Magnesium 1 Gm / 100 Ml D5w IV 06/12/19 19:44 100 mls/hr Q1H JENNIFER Administration Discontinued Medications Generic Name Dose Route Start Last Admin Trade Name Elton PRN Reason Stop Dose Admin Sodium Chloride 1,000 mls @ 999 mls/hr 06/12/19 17:48 06/12/19 18:36 Sodium Chloride 0.9% 1000 Ml IV 06/12/19 18:48 999 mls/hr .Q1H1M STA Administration Sodium Chloride Confirm 06/12/19 18:20 Sodium Chloride 0.9% 1000 Ml Administered 06/12/19 18:21 Dose 1,000 mls @ ud .ROUTE .STK-MED ONE Magnesium Sulfate 2 gm 06/12/19 17:38 06/12/19 17:43 Magnesium Sulfate 1 Gm/2 Ml Vial IV 06/12/19 17:39 Not Given ONCE STA Lab/Rad Data: Laboratory Result Diagrams 06/12/19 16:37 06/12/19 16:37 Laboratory Results 06/12/19 06/12/19 06/12/19 Range/Units Unknown 17:25 16:45 WBC (4.0-10.5) K/mm3 RBC (4.1-5.4) M/mm3 Hgb (12.0-16.0) gm/dl Hct (35-47) % MCV (78-100) fl MCH (26-32) pg MCHC (32-36) g/dl RDW (11.5-14.0) % Plt Count (150-450) K/mm3 MPV (7.5-11.0) fl Gran % (36.0-66.0) % Eos # (Auto) (0-0.5) Absolute Lymphs (auto) (1.0-4.6) Absolute Monos (auto) (0.0-1.3) Lymphocytes % (24.0-44.0) % Monocytes % (0.0-12.0) % Eosinophils % (0.00-5.0) % Basophils % (0.0-0.4) % Absolute Granulocytes (1.4-6.9) Basophils # (0-0.4) Puncture Site LEFT RADIAL pCO2 26 L (35-45) mmHg pO2 97 (75-100) mmHg Base Excess -5.4 L (-2.0-2.0) O2 Saturation 97.4 (94-100) g/dF ABG pH 7.43 (7.35-7.45) ABG HCO3 17.3 L (22-28) ABG O2 Sat (Measured) 99.0 (95-100) % Byron Test YES A-a Gradient 20 a/A Ratio 0.83 Hemoglobin 12.9 Carboxyhemoglobin 0.8 (0.0-6.9) % THgb Methemoglobin 0.8 L (1.4-1.5) % Temperature 37.0 C POC O2 Flow Rate 21 % Sodium (137-145) mmol/L Potassium 3.7 (3.5-5.1) mmol/L Chloride (98-107) mmol/L Carbon Dioxide (22-30) mmol/L Anion Gap (5-15) MEQ/L BUN (7-17) mg/dL Creatinine (0.52-1.04) mg/dL Estimated GFR ML/MIN Glucose (74-106) mg/dL Calcium (8.4-10.2) mg/dL Magnesium (1.6-2.3) mg/dL Total Bilirubin (0.2-1.3) mg/dL AST (14-36) U/L ALT (0-35) U/L Alkaline Phosphatase (38-126) U/L Troponin I < 0.012 (0.000-0.034) ng/mL NT-Pro-B Natriuret Pep (0-900) pg/mL Serum Total Protein (6.3-8.2) g/dL Albumin (3.5-5.0) g/dL Influenza Type A Ag NEGATIVE (NEGATIVE) Influenza Type B Ag NEGATIVE (NEGATIVE) RSV (PCR) NEGATIVE (Negative) 06/12/19 06/12/19 Range/Units 16:37 16:37 WBC 6.6 (4.0-10.5) K/mm3 RBC 4.57 (4.1-5.4) M/mm3 Hgb 13.5 (12.0-16.0) gm/dl Hct 40.8 (35-47) % MCV 89.3 (78-100) fl MCH 29.5 (26-32) pg MCHC 33.1 (32-36) g/dl RDW 13.3 (11.5-14.0) % Plt Count 196 (150-450) K/mm3 MPV 10.4 (7.5-11.0) fl Gran % 77.1 H (36.0-66.0) % Eos # (Auto) 0.04 (0-0.5) Absolute Lymphs (auto) 1.12 (1.0-4.6) Absolute Monos (auto) 0.34 (0.0-1.3) Lymphocytes % 16.9 L (24.0-44.0) % Monocytes % 5.1 (0.0-12.0) % Eosinophils % 0.6 (0.00-5.0) % Basophils % 0.3 (0.0-0.4) % Absolute Granulocytes 5.09 (1.4-6.9) Basophils # 0.02 (0-0.4) Puncture Site pCO2 (35-45) mmHg pO2 (75-100) mmHg Base Excess (-2.0-2.0) O2 Saturation (94-100) g/dF ABG pH (7.35-7.45) ABG HCO3 (22-28) ABG O2 Sat (Measured) (95-100) % Byron Test A-a Gradient a/A Ratio Hemoglobin Carboxyhemoglobin (0.0-6.9) % THgb Methemoglobin (1.4-1.5) % Temperature C POC O2 Flow Rate % Sodium 146 H (137-145) mmol/L Potassium 4.1 (3.5-5.1) mmol/L Chloride 114 H (98-107) mmol/L Carbon Dioxide 18 L (22-30) mmol/L Anion Gap 18.2 H (5-15) MEQ/L BUN 19 H (7-17) mg/dL Creatinine 1.04 (0.52-1.04) mg/dL Estimated GFR 56.7 ML/MIN Glucose 106 (74-106) mg/dL Calcium 9.4 (8.4-10.2) mg/dL Magnesium 1.5 L (1.6-2.3) mg/dL Total Bilirubin 0.60 (0.2-1.3) mg/dL AST 38 H (14-36) U/L ALT 18 (0-35) U/L Alkaline Phosphatase 108 (38-126) U/L Troponin I (0.000-0.034) ng/mL NT-Pro-B Natriuret Pep 70.7 (0-900) pg/mL Serum Total Protein 8.0 (6.3-8.2) g/dL Albumin 4.3 (3.5-5.0) g/dL Influenza Type A Ag (NEGATIVE) Influenza Type B Ag (NEGATIVE) RSV (PCR) (Negative) - Progress Progress: improved Air Movement: fair, good Progress Note: 06/12/19 19:51 Patient ambulated in our ED. She maintained good saturation NO respiratory distress or labored breathing. She states she felt well. Magnesium replaced. IVF administered. CT negative for pneumonia and PE. Patient likely experiencing mild bronchitis with dry cough. Solumedrol administered. Pateint has steroid at home which she has not been taking. She has a home nebulizer. Patient requesting discharge. 06/12/19 19:59 Trops negative. Antibiotics given: No Counseled pt/family regarding: lab results, diagnosis, need for follow-up, rad results - Departure Departure Disposition: Home Clinical Impression: SOB (shortness of breath), Cough, Bronchitis, Hypomagnesemia, Dehydration Condition: Stable Critical Care Time: No Referrals: LLUVIA CHILDERS DO [Primary Care Provider] - Additional Instructions: Discharge/Care Plan GEOVANNY FREY was seen on 06/12/19 in the Emergency Room. The patient was counseled regarding Diagnosis,Lab results, Imaging studies, need for follow up and when to return to the Emergency Room. Prescriptions given: Discharge Note I have spoken with the patient and/or caregivers. I have explained the patient' s condition, diagnosis and treatment plan based on the information available to me at this time. I have answered the patient's and/or caregiver's questions and addressed any concerns. The patient and/or caregivers have as good understanding of the patient's diagnosis, condition and treatment plan as can be expected at this point. The vital signs have been stable. The patient's condition is stable and appropriate for discharge from the emergency department. The patient will pursue further outpatient evaluation with the primary care physician or other designated or consulting physician as outlined in the discharge instructions. The patient and/or caregivers are agreeable to this plan of care and follow-up instructions have been explained in detail. The patient and/or caregivers have received these instruction. The patient/and or caregivers are aware that any significant change in condition or worsening of symptoms should prompt an immediate return to this or the closest emergency department or call 911.
[2019-06-12] MEDS ORDERED: solu-MEDROL 125 MG IV ONE (19:45)
[2019-06-12] MEDS ORDERED: solu-MEDROL 125 MG ONE (19:48)
[2019-06-12 20:04] VITALS: BP 122/81; PULSE 77; O2SAT 97
--- NOTE | 2019-06-13 08:44 | XRAY ---
Indication: Cough and short of breath. Suspect Covid 19. Multiple contiguous axial images obtained through the chest using 85 cc Isovue 370 contrast and PE protocol. Comparison: March 08, 2019. There is good opacification of the pulmonary arteries to include the lobar and segmental branches. Again no filling defect or pulmonary embolus. Heart is not enlarged again with right Port-A-Cath. Aorta is normal in course and caliber. Stable mediastinal and right hilar calcified nodes. No pathologic mediastinal/hilar lymphadenopathy. Lungs again demonstrates mild peripheral fibrosis/scarring and a few calcified/noncalcified nodules bilaterally. No suspicious pulmonary mass, infiltrate, consolidation, or effusion. Bony thorax remains intact. Limited upper abdomen again demonstrates calcified splenic granulomas. Impression: 1. Continued negative for pulmonary embolus. 2. Stable scattered fibrosis/scarring and evidence for old granulomatous disease. 3. No new or acute cardiopulmonary abnormalities.
== END 2019-06-12 20:17 | disposition home or self-care (01) ==
LOC: ED 16:32
DX: R06.02 Shortness of breath (principal); J40 Bronchitis, not specified as acute or chronic; E83.42 Hypomagnesemia; E86.0 Dehydration; J44.9 Chronic obstructive pulmonary disease, unspecified; E03.9 Hypothyroidism, unspecified; M19.90 Unspecified osteoarthritis, unspecified site; K21.9 Gastro-esophageal reflux disease without esophagitis; K58.9 Irritable bowel syndrome, unspecified; Z79.899 Other long term (current) drug therapy; Z87.440 Personal history of urinary (tract) infections; Z90.49 Acquired absence of other specified parts of digestive tract
CPT/HCPCS: 36000; 36415; 36600; 71045; 71260; 80053; 82375; 82803; 83735; 83880; 84484; 85025; 87040; 87631; 93005; 93041; 94760; 96365; 96366; 96374; 99285; J1642; J2930; J3475

== ENCOUNTER 2019-07-07 15:13 | Emergency (ER) | payer MEDICARE ==
[2019-07-07] MEDS ORDERED: Zofran 4 MG/2 ML VIAL IV ONE (15:31)
[2019-07-07] MEDS ORDERED: Sodium Chloride 0.9% 1000 ML 1,000 ML IV STA (15:31)
--- NOTE | 2019-07-07 15:46 | ERPHSYRPT ---
- History of Present Illness Time Seen by Provider: 07/07/19 15:14 Historian: patient Exam Limitations: no limitations Patient Subjective Stated Complaint: pt to ER with complaints of abdominal pain since last week. pt has hx of abdominal issues. pt states she has some diarrhea that she has had since last night continuously. Triage Nursing Assessment: pt A&Ox4. ambulatory. pt appears to be in pain. Physician History: Patient is here with chronic abdominal pain. Patient has known chronic abdominal issues. States that she has had multiple abdominal surgeries. She is most worried about small bowel obstruction today. States that her pain started approximately 24 hours ago. Upper left quadrant. No falls no trauma. Location: left upper quadrant pain Quality: sharp Radiation: wraps around abdomen Severity: moderate Duration: gradual Timin hours Modifying factors/associated signs and symptoms: History of chronic abdominal pain Allergies/Adverse Reactions: sumatriptan [From Imitrex] Allergy (Intermediate, Verified 07/07/19 15:28) Rash codeine Allergy (Mild, Verified 07/07/19 15:28) Rash MAKES SICK nitrofurantoin [From Macrobid] Allergy (Unknown, Verified 07/07/19 15:28) sumatriptan succinate [From Imitrex] Allergy (Verified 07/07/19 15:28) morphine Adverse Reaction (Severe, Verified 07/07/19 15:28) Headache MIGRAINES fentanyl Adverse Reaction (Intermediate, Verified 07/07/19 15:28) Headache hydrocodone bitartrate [From Vicodin] Adverse Reaction (Mild, Verified 07/07/19 15:28) Vomiting hydromorphone [From Dilaudid] Adverse Reaction (Mild, Verified 07/07/19 15:28) pt states makes heache worse. Home Medications: Alprazolam 1 mg [Xanax 1 mg] 1 mg PO TID 02/17/13 [History] Polyethylene Glycol 3350 17 gm [Miralax Powder 17GM PACKET] 34 gm PO BID 03/01 [History] Sennosides/Docusate Sodium [Senokot-S Tablet] 1 tab PO DAILY 04/25/15 [History] Promethazine HCl 25 mg [Phenergan 25 mg] 25 mg PO Q4HPRN PRN 05/11/15 [ History] Cetirizine HCl/Pseudoephedrine [Zyrtec-D Tablet] 1 each PO DAILY 02/03/16 [ History] Aspirin 81 mg PO DAILY 09/11/16 [History] Levothyroxine Sodium 50 Mcg [Synthroid 50 Mcg] 50 mcg PO DAILY 07/06/17 [ History] Linaclotide [Linzess] 290 mcg PO DAILY 10/07/17 [History] Rizatriptan Benzoate [Maxalt] 10 mg PO BID PRN PRN 06/23/18 [History] Fluticasone Propionate [Flonase NASAL] 2 spray NS DAILY 01/19/19 [History] Sodium Bicarbonate 650 mg PO DAILY 01/19/19 [History] Phenazopyridine HCl 200 mg [Pyridium 200 mg] 200 mg PO BID PRN 03/20/19 [ History] Guaifenesin 600 mg ER [Mucinex 600MG ER Tabs] 600 mg PO DAILY 04/05/19 [ History] Ketorolac Tromethamine [Toradol] 10 mg PO Q6H PRN 04/05/19 [History] Sucralfate 1 gm [Carafate 1 GM] 1 g PO ACHS 04/05/19 [History] Hx Tetanus, Diphtheria Vaccination/Date Given: Yes Hx Influenza Vaccination/Date Given: Yes Hx Pneumococcal Vaccination/Date Given: Yes Immunizations Up to Date: Yes Travel Risk - International Travel Have you traveled outside of the country in past 3 weeks: No Have you or anyone close to you been diagnosed with or: No Do your reside in a community with a known COVID-19 case?: Yes If Yes where:: [place] - Coronavirus Screening Has patient experienced Coronavirus symptoms: No - Review of Systems Constitutional: No Fever, No Chills Eyes: No Symptoms Ears, Nose, & Throat: No Symptoms Respiratory: No Cough, No Dyspnea Cardiac: No Chest Pain, No Edema, No Syncope Abdominal/Gastrointestinal: Abdominal Pain, No Nausea, No Vomiting, No Diarrhea Genitourinary Symptoms: No Dysuria Musculoskeletal: No Back Pain, No Neck Pain Skin: No Rash Neurological: No Dizziness, No Focal Weakness, No Sensory Changes Psychological: No Symptoms Endocrine: No Symptoms All Other Systems: Reviewed and Negative - Past Medical History Pertinent Past Medical History: Yes Neurological History: No Pertinent History, Migraines ENT History: Cataracts, Other Cardiac History: No Pertinent History Respiratory History: Bronchitis, COPD, Other Endocrine Medical History: Hypothyroidism, Other Musculoskeletal History: Arthritis, Degenerative Disk Disease, Osteoarthritis, Other GI Medical History: GERD, Irritable Bowel, Ulcer, Other History: Other Psycho-Social History: Anxiety Female Reproductive Disorders: Other Other Medical History: Recurrent UTI,urine kidney/bladder problems recurrent. 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 TRACHEA MALASIA - Past Surgical History Past Surgical History: Yes Neuro Surgical History: No Pertinent History Cardiac: No Pertinent History Respiratory: No Pertinent History Gastrointestinal: Bowel Surgery, Cholecystectomy, Colon Resection, Hernia Repair Genitourinary: Other Musculoskeletal: No Pertinent History Female Surgical History: Hysterectomy Other Surgical History: COLONOSCOPIES, EGDs. Total colectomy. FEEDING TUBE FOR 4 YEARS, stretches of bladder and urethra, bowel obstructions x2, lithotripsy. bronch on 1320 - Social History Smoking Status: Never smoker Exposure to second hand smoke: No Alcohol Use: None Drug Use: none Patient Lives Alone: Yes Significant Family History: no pertinent family hx - Nursing Vital Signs Nursing Vital Signs: Initial Vital Signs Pulse Rate 114 H 07/07/19 15:18 Respiratory Rate 20 07/07/19 15:18 Blood Pressure 131/92 07/07/19 15:18 O2 Sat by Pulse Oximetry 95 07/07/19 15:18 Pain Scale Pain Intensity 9 - Physical Exam General Appearance: no apparent distress, alert Eye Exam: PERRL/EOMI, eyes nml inspection Ears, Nose, Throat Exam: normal ENT inspection, pharynx normal, moist mucous membranes Neck Exam: normal inspection, non-tender, supple, full range of motion Respiratory Exam: normal breath sounds, lungs clear, No respiratory distress Cardiovascular Exam: regular rate/rhythm, normal heart sounds Gastrointestinal/Abdomen Exam: soft, other (Left upper quadrant tenderness to palpation. No rebound or guarding. Well-healed surgical incisions.), No tenderness, No mass Back Exam: normal inspection, normal range of motion, No CVA tenderness, No vertebral tenderness Extremity Exam: normal inspection, normal range of motion, pelvis stable Neurologic Exam: alert, 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, cooperative, normal mood/affect, nml cerebellar function, sensation nml, No motor deficits Skin Exam: normal color, warm, dry SpO2: 95 - Course Nursing assessment & vital signs reviewed: Yes EKG Interpreted by Me: RATE, Sinus Rhythm - CT Exams Abdomen/Pelvis CT Interpretation: Negative Ordered Tests: Active Orders 24 hr Category Date Time Status EKG-ER Only STAT Care 07/07/19 15:31 Active IV Insertion STAT Care 07/07/19 15:31 Active NPO (ED) STAT Care 07/07/19 15:31 Active ABDOMEN AND PELVIS W/0 CONTRAS [CT] Stat Exams 07/07/19 15:31 Taken CBC W DIFF Stat Lab 07/07/19 16:05 Completed CMP Stat Lab 07/07/19 16:05 Completed LIPASE Stat Lab 07/07/19 16:05 Completed Medication Summary Discontinued Medications Generic Name Dose Route Start Last Admin Trade Name Freq PRN Reason Stop Dose Admin Sodium Chloride 1,000 mls @ 999 mls/hr 07/07/19 15:31 07/07/19 16:17 Sodium Chloride 0.9% 1000 Ml IV 07/07/19 16:31 999 mls/hr .Q1H1M STA Administration Sodium Chloride Confirm 07/07/19 15:52 Sodium Chloride 0.9% 1000 Ml Administered 07/07/19 15:53 Dose 1,000 mls @ ud .ROUTE .STK-MED ONE Ondansetron HCl 4 mg 07/07/19 15:31 07/07/19 16:15 Zofran 4 Mg/2 Ml Vial IV 07/07/19 15:32 4 mg STAT ONE Administration Ondansetron HCl Confirm 07/07/19 15:52 Zofran 4 Mg/2 Ml Vial Administered 07/07/19 15:53 Dose 4 mg .ROUTE .STK-MED ONE Lab/Rad Data: Laboratory Result Diagrams 07/07/19 16:05 07/07/19 16:05 Laboratory Results 07/07/19 07/07/19 Range/Units 16:05 16:05 WBC 4.8 (4.0-10.5) K/mm3 RBC 4.19 (4.1-5.4) M/mm3 Hgb 12.5 (12.0-16.0) gm/dl Hct 37.9 (35-47) % MCV 90.5 (78-100) fl MCH 29.8 (26-32) pg MCHC 33.0 (32-36) g/dl RDW 14.2 H (11.5-14.0) % Plt Count 180 (150-450) K/mm3 MPV 10.4 (7.5-11.0) fl Gran % 73.2 H (36.0-66.0) % Eos # (Auto) 0.05 (0-0.5) Absolute Lymphs (auto) 0.90 L (1.0-4.6) Absolute Monos (auto) 0.33 (0.0-1.3) Lymphocytes % 18.6 L (24.0-44.0) % Monocytes % 6.8 (0.0-12.0) % Eosinophils % 1.0 (0.00-5.0) % Basophils % 0.4 (0.0-0.4) % Absolute Granulocytes 3.54 (1.4-6.9) Basophils # 0.02 (0-0.4) Sodium 138 (137-145) mmol/L Potassium 4.6 (3.5-5.1) mmol/L Chloride 111 H (98-107) mmol/L Carbon Dioxide 18 L (22-30) mmol/L Anion Gap 13.7 (5-15) MEQ/L BUN 25 H (7-17) mg/dL Creatinine 1.31 H (0.52-1.04) mg/dL Estimated GFR 43.4 ML/MIN Glucose 112 H (74-106) mg/dL Calcium 8.9 (8.4-10.2) mg/dL Total Bilirubin 0.70 (0.2-1.3) mg/dL AST 42 H (14-36) U/L ALT 17 (0-35) U/L Alkaline Phosphatase 118 (38-126) U/L Serum Total Protein 7.5 (6.3-8.2) g/dL Albumin 4.1 (3.5-5.0) g/dL Lipase 168 (23-300) U/L - Progress Progress: improved Progress Note: 07/07/19 15:48 differential diagnosis includes kidney stone, compression fracture, infection, UTI, triple AAA - basic labs including: CBC, lipase, CMP, - insert IV for fluids, pain meds, nausea control - consider imaging: CT ab/pelvis 07/07/19 17:57 Labs and work-up largely unremarkable. CT scan shows normal appendix mild diffuse fecal stasis without obvious other issues. On reexam, pain improved here. We will discharge patient home at this point time. She will need close follow-up with PCP. She will return here for new or changing symptoms. Counseled pt/family regarding: lab results, diagnosis, need for follow-up, rad results - Departure Departure Disposition: Home Clinical Impression: Abdominal pain Condition: Stable Critical Care Time: No Referrals: LLUVIA CHILDERS, [Primary Care Provider] - Instructions: Acute Abdomen (Belly Pain) Additional Instructions: Abdominal reexam in 24 to 48 hours. Otherwise return here for new or changing symptoms.
[2019-07-07] MEDS ORDERED: Zofran 4 MG/2 ML VIAL ONE (15:52)
[2019-07-07] MEDS ORDERED: Sodium Chloride 0.9% 1000 ML 1,000 ML ONE (15:52)
[2019-07-07 16:20] LABS: Absolute Neutrophil Ct (ANC) 3.54 (1.4-6.9); BASOPHIL % 0.4 % (0.0-0.4); Basophil (Absolute #) 0.02 (0-0.4); Eosinophil (Absolute #) 0.05 (0-0.5); Hematocrit 37.9 % (35-47); Hemoglobin 12.5 gm/dl (12.0-16.0); Lymphocytes % 18.6 % (24.0-44.0); Mean Cell Volume 90.5 fl (78-100); Mean Corpuscular Hemoglobin 29.8 pg (26-32); Mean Platelet Volume 10.4 fl (7.5-11.0); Monocyte (Absolute #) 0.33 (0.0-1.3); Monocytes % 6.8 % (0.0-12.0); Neutrophil % 73.2 % (36.0-66.0); Platelet Count 180 K/mm3 (150-450); Red Blood Count 4.19 M/mm3 (4.1-5.4); Red Cell Distribution Width 14.2 % (11.5-14.0); White Blood Count 4.8 K/mm3 (4.0-10.5)
[2019-07-07 16:50] LABS: ALBUMIN 4.1 g/dL (3.5-5.0); ANION GAP 13.7 MEQ/L (5-15); BILIRUBIN,TOTAL 0.7 mg/dL (0.2-1.3); Calcium 8.9 mg/dL (8.4-10.2); Creatinine 1 1.31 mg/dL (0.52-1.04); Potassium 4.6 mmol/L (3.5-5.1); Total Protein 7.5 g/dL (6.3-8.2)
[2019-07-07 18:02] VITALS: BP 113/77; PULSE 80; O2SAT 96
--- NOTE | 2019-07-08 10:54 | XRAY ---
Exam: CT of the abdomen and pelvis without IV contrast from 07/07/2019. CTDI: 7.95 mGy Comparison: CT of the abdomen and pelvis without IV contrast from 03/27/2019. Indication: 64-year-old female with acute abdominal pain and left upper quadrant abdominal pain for 24 hours associated with diarrhea. The patient gives a prior history of subtotal colon resection with ileosigmoid reanastomosis, cholecystectomy, and hysterectomy. Technique: Non-IV contrast axial images were obtained through the abdomen and pelvis. Reconstructed coronal and sagittal images were created and reviewed. Findings: Prior mild to moderate posterior layering pleural effusions on 03/27/2019 have resolved in the interval. Minimal scarring/chronic atelectasis is seen at the anterior left lung base. Several small nodular densities are seen at the left lung base measuring up to a maximum of 4 mm in diameter on axial image #7. I don't believe this represents any significant interval change dating back to at least 05/06/2017. Therefore, I believe these are nonaggressive. Minimal curvilinear scarring/atelectasis is seen at the medial left lung base on axial image #7. The transverse heart size is normal. A tiny amount of pericardial fluid is seen which is likely physiologic. The amount of pericardial fluid has decreased as compared to 2019 (compare axial image #3 on today's study to axial image #9 on 03/27/2019). The liver appears of normal size. Assessment of the solid organs is somewhat limited without IV contrast, but no gross liver mass or intrahepatic biliary duct distention is seen. The gallbladder is surgically absent. The splenic size appears towards the upper limits of normal. A few calcified splenic granulomas are seen. No splenic mass is seen. The pancreas and adrenal glands appear normal. The right kidney has an altered transverse axis, but is otherwise unremarkable. The left kidney reveals chronic focal cortical scarring at the posterior aspect of the lower pole, stable. No renal calculi, hydronephrosis, or definite renal mass is seen. The abdominal aorta appears of normal diameter revealing no aneurysm. No abnormal retroperitoneal lymphadenopathy is seen. I again see a small calcification just anterior to the distal thoracic esophagus representing no change. An 8mm in short axis lymph node is seen just inferior to the gastroesophageal junction on axial image #17 representing no change. No pathological mesenteric lymphadenopathy is seen. There is some diastasis of the rectus abdominis with thinning and laxity of the mid anterior abdominal wall representing no change. No bowel containing ventral hernia or free intraperitoneal air is seen. The appendix is surgically absent. The patient has undergone a subtotal colectomy with apparent ilio-sigmoid reanastomosis. A suture line is seen on axial images #65 through #69. Mixed solid and liquid stool is seen within the distal sigmoid colon and upper rectum. The proximal and mid small bowel contains moderate fluid measuring up to about 2.1 cm in diameter. Distal small bowel within the right lower quadrant appears more collapsed measuring only about 1.1 cm in diameter. This is nonspecific, and may represent localized ileus or enteritis. The possibility of a partial mid to distal small bowel obstruction is not completely excluded, but I believe this is less likely. The uterus is surgically absent. Only minimal fluid is seen within the urinary bladder. Multiple calcified phleboliths are seen within the lower pelvis. There is no free intraperitoneal fluid. No enlarged pelvic lymph nodes or other pelvic mass is seen. The skeleton reveals no acute fracture or other aggressive bone lesion. Minimal dextroscoliosis is seen centered at L2-L3. I see evidence of moderate degenerative disc disease at L2-L3 and moderate to marked degenerative disc disease at L5-S1. There is slight chronic loss of the anterior vertebral body height of T11, stable. Impression: 1. Interval resolution of mild to moderate posterior layering pleural effusions as compared to 03/27/2019. 2. Stable minimal nodularity at the anterior left lung base, the largest nodule measuring about 4 mm in diameter. This appears similar dating back to 05/06/2017. 3. The patient is status post subtotal colectomy with reanastomosis at the level of the sigmoid colon. A moderate amount of solid and liquid stool is seen near the anastomotic site extending down to the upper rectum. This portion of the bowel appears slightly more prominent as compared to 03/27/2019. 4. Fluid-filled mildly prominent small bowel with a few air-fluid levels is seen within the upper and middle thirds. The distal small bowel within the right hemipelvis appears relatively collapsed. This is nonspecific. Major differential considerations include a mild ileus, enteritis, or less likely, partial mid to distal small bowel obstruction. 5. No other acute process is seen within the abdomen or pelvis. Other incidental findings are noted, as discussed above.
== END 2019-07-07 18:23 | disposition home or self-care (01) ==
LOC: ED 15:13
DX: R10.9 Unspecified abdominal pain (principal); J44.9 Chronic obstructive pulmonary disease, unspecified; E03.9 Hypothyroidism, unspecified; K21.9 Gastro-esophageal reflux disease without esophagitis; M19.90 Unspecified osteoarthritis, unspecified site; F41.9 Anxiety disorder, unspecified; Z87.440 Personal history of urinary (tract) infections; Z16.12 Extended spectrum beta lactamase (ESBL) resistance; Z87.442 Personal history of urinary calculi; Z87.898 Personal history of other specified conditions
CPT/HCPCS: 36000; 36415; 74176; 80053; 83690; 85025; 93005; 96360; 96374; 99284; J1642; J2405

== ENCOUNTER 2019-07-20 05:02 | Emergency (ER) | payer MEDICARE ==
--- NOTE | 2019-07-20 05:40 | ERPHSYRPT ---
- History of Present Illness Source: patient Exam Limitations: no limitations Timing/Duration: yesterday Modifying Factors: Improves With: nothing Associated Symptoms: denies symptoms Hx Tetanus, Diphtheria Vaccination/Date Given: Yes Hx Influenza Vaccination/Date Given: Yes Hx Pneumococcal Vaccination/Date Given: Yes - History of Present Illness Time Seen by Provider: 07/20/19 05:30 Physician History: This is a 64-year-old white female who is seen in the emergency department here at [facility] often for similar complaints. Her complaint today is cramping in her lower extremities into her lower abdomen and lower back. Symptoms began yesterday and have worsened. Patient states she can barely stand still or lay still with this cramping pain patient has a history of renal insufficiency and sees a early childhood education worker for this. She also has history of chronic constipation and recurrent abdominal pain. 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 Patient states that she was started on Motegrity, a new medication for her to help relieve constipation. She states this is helping. Patient denies diarrhea and she denies vomiting. Patient was seen here on 2019 with abdominal cramping. A CAT scan of her abdomen and pelvis revealed fecal stasis but no other acute intra-abdominal abnormalities. Patient has a history of bronchitis, COPD, hypothyroidism, degenerative joint disease, osteoarthritis, irritable bowel syndrome, peptic ulcer disease, gastroesophageal reflux disease, and recurrent urinary tract infections. Patient has also had a history in the past of low potassium and low magnesium. Patient has an appointment to see her primary care physician tomorrow. She did not think she could wait until tomorrow to be evaluated for her symptoms. Denies chest pain, denies cough and she denies shortness of breath. She has no primary urinary tract complaints or symptoms. (PARK ROBERTS) Allergies/Adverse Reactions: sumatriptan [From Imitrex] Allergy (Intermediate, Verified 07/20/19 05:12) Rash codeine Allergy (Mild, Verified 07/20/19 05:12) Rash MAKES SICK nitrofurantoin [From Macrobid] Allergy (Unknown, Verified 07/20/19 05:12) sumatriptan succinate [From Imitrex] Allergy (Verified 07/20/19 05:12) morphine Adverse Reaction (Severe, Verified 07/20/19 05:12) Headache MIGRAINES fentanyl Adverse Reaction (Intermediate, Verified 06/04/20 05:12) Headache hydrocodone bitartrate [From Vicodin] Adverse Reaction (Mild, Verified 07/20/19 05:12) Vomiting hydromorphone [From Dilaudid] Adverse Reaction (Mild, Verified 07/20/19 05:12) pt states makes heache worse. Home Medications: Alprazolam 1 mg [Xanax 1 mg] 1 mg PO TID 02/17/13 [History] Polyethylene Glycol 3350 17 gm [Miralax Powder 17GM PACKET] 34 gm PO BID 03/01 [History] Sennosides/Docusate Sodium [Senokot-S Tablet] 1 tab PO DAILY 04/25/15 [History] Promethazine HCl 25 mg [Phenergan 25 mg] 25 mg PO Q4HPRN PRN 05/11/15 [ History] Cetirizine HCl/Pseudoephedrine [Zyrtec-D Tablet] 1 each PO DAILY 02/03/16 [ History] Aspirin 81 mg PO DAILY 09/11/16 [History] Levothyroxine Sodium 50 Mcg [Synthroid 50 Mcg] 50 mcg PO DAILY 07/06/17 [ History] Linaclotide [Linzess] 290 mcg PO DAILY 10/07/17 [History] Rizatriptan Benzoate [Maxalt] 10 mg PO BID PRN PRN 06/23/18 [History] Fluticasone Propionate [Flonase NASAL] 2 spray NS DAILY 01/19/19 [History] Sodium Bicarbonate 650 mg PO DAILY 01/19/19 [History] Phenazopyridine HCl 200 mg [Pyridium 200 mg] 200 mg PO BID PRN 03/20/19 [ History] Guaifenesin 600 mg ER [Mucinex 600MG ER Tabs] 600 mg PO DAILY 04/05/19 [ History] Sucralfate 1 gm [Carafate 1 GM] 1 g PO ACHS 04/05/19 [History] Methenamine 1 tab PO HS 07/20/19 [History] Prucalopride Succinate [Motegrity] 1 tab PO DAILY 07/20/19 [History] Travel Risk - International Travel Have you traveled outside of the country in past 3 weeks: No Have you or anyone close to you been diagnosed with or: No Do your reside in a community with a known COVID-19 case?: Yes If Yes where:: [facility] - Coronavirus Screening Has patient experienced Coronavirus symptoms: No - Review of Systems Constitutional: No Symptoms Eyes: No Symptoms Ears, Nose, & Throat: No Symptoms Respiratory: No Symptoms Cardiac: No Symptoms Abdominal/Gastrointestinal: No Symptoms Genitourinary Symptoms: No Symptoms Musculoskeletal: Other (Cramping bilateral lower extremities), No Fall, No Injury Skin: No Symptoms Neurological: No Symptoms Psychological: No Symptoms Endocrine: No Symptoms Hematologic/Lymphatic: No Symptoms Immunological/Allergic: No Symptoms All Other Systems: Reviewed and Negative - Past Medical History Pertinent Past Medical History: Yes Neurological History: No Pertinent History, Migraines ENT History: Cataracts, Other Cardiac History: No Pertinent History Respiratory History: Bronchitis, COPD, Other Endocrine Medical History: Hypothyroidism, Other Musculoskeletal History: Arthritis, Degenerative Disk Disease, Osteoarthritis, Other GI Medical History: GERD, Irritable Bowel, Ulcer, Other History: Other Psycho-Social History: Anxiety Female Reproductive Disorders: Other Other Medical History: Recurrent UTI,urine kidney/bladder problems recurrent. 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 TRACHEA MALASIA - Past Surgical History Past Surgical History: Yes Neuro Surgical History: No Pertinent History Cardiac: No Pertinent History Respiratory: No Pertinent History Gastrointestinal: Bowel Surgery, Cholecystectomy, Colon Resection, Hernia Repair Genitourinary: Other Musculoskeletal: No Pertinent History Female Surgical History: Hysterectomy Other Surgical History: COLONOSCOPIES, EGDs. Total colectomy. FEEDING TUBE FOR 4 YEARS, stretches of bladder and urethra, bowel obstructions x2, lithotripsy. bronch on 1320 - Social History Smoking Status: Never smoker Exposure to second hand smoke: No Alcohol Use: None Drug Use: none Patient Lives Alone: Yes Significant Family History: no pertinent family hx - Physical Exam General Appearance: no apparent distress, alert, anxiety Eye Exam: PERRL/EOMI, eyes nml inspection Ears, Nose, Throat Exam: normal ENT inspection, moist mucous membranes Neck Exam: normal inspection, non-tender, supple, full range of motion Respiratory Exam: normal breath sounds, lungs clear, airway intact, No chest tenderness, No respiratory distress Cardiovascular Exam: regular rate/rhythm, normal heart sounds, normal peripheral pulses Gastrointestinal/Abdomen Exam: soft, normal bowel sounds, No tenderness, No guarding Rectal Exam: not done Back Exam: normal inspection, normal range of motion, No CVA tenderness, No vertebral tenderness Extremity Exam: normal inspection, normal range of motion, pelvis stable, tenderness (Bilateral lower extremity described as cramping pain), No calf tenderness, No deformities, No pedal edema Neurologic Exam: alert, 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, cooperative, biochemical engineer II-XII nml as tested, nml cerebellar function, nml station & gait Skin Exam: normal color, warm, dry Lymphatic Exam: No adenopathy SpO2 Interpretation: normal O2 Delivery: Room Air - Nursing Vital Signs Nursing Vital Signs: Initial Vital Signs Temperature 97.9 F 07/20/19 05:02 Pulse Rate 98 H 07/20/19 05:02 Respiratory Rate 16 07/20/19 05:02 Blood Pressure 119/66 07/20/19 05:02 O2 Sat by Pulse Oximetry 97 07/20/19 05:02 Pain Scale Pain Intensity 8 - Course Nursing assessment & vital signs reviewed: Yes Ordered Tests: Active Orders 24 hr Category Date Time Status IV Insertion STAT Care 07/20/19 05:39 Active VENOUS BILATERAL EXTREMITY [US] Stat Exams 07/20/19 06:37 Completed CBC W DIFF Stat Lab 07/20/19 06:11 Completed CK-Creatinine Phosphokinase Stat Lab 07/20/19 06:11 Completed CMP Stat Lab 07/20/19 06:11 Completed CULTURE,URINE Stat Lab 07/20/19 06:43 Received D-DIMER QUANTITATIVE Stat Lab 07/20/19 06:11 Completed Lactic Acid Stat Lab 07/20/19 06:22 Completed MAGNESIUM Stat Lab 07/20/19 06:11 Completed UA W/RFX UR CULTURE Stat Lab 07/20/19 06:43 Completed Medication Summary Discontinued Medications Generic Name Dose Route Start Last Admin Trade Name Freq PRN Reason Stop Dose Admin Heparin Sodium (Beef Lung) 500 units 07/20/19 06:52 Heparin Lock Flush 100 Units/Ml 5ml Syringe PORT FLUSH 07/20/19 06:53 STAT ONE Sodium Chloride 1,000 mls @ 999 mls/hr 07/20/19 07:39 07/20/19 07:44 Sodium Chloride 0.9% 1000 Ml IV 07/20/19 08:39 999 mls/hr .Q1H1M STA Administration Sodium Chloride Confirm 07/20/19 07:40 Sodium Chloride 0.9% 1000 Ml Administered 07/20/19 07:41 Dose 1,000 mls @ ud .ROUTE .STK-MED ONE Lab/Rad Data: Laboratory Result Diagrams 07/20/19 06:11 07/20/19 06:11 Laboratory Results 07/20/19 07/20/19 07/20/19 Range/Units 06:43 06:22 06:11 WBC (4.0-10.5) K/mm3 RBC (4.1-5.4) M/mm3 Hgb (12.0-16.0) gm/dl Hct (35-47) % MCV (78-100) fl MCH (26-32) pg MCHC (32-36) g/dl RDW (11.5-14.0) % Plt Count (150-450) K/mm3 MPV (7.5-11.0) fl Gran % (36.0-66.0) % Eos # (Auto) (0-0.5) Absolute Lymphs (auto) (1.0-4.6) Absolute Monos (auto) (0.0-1.3) Lymphocytes % (24.0-44.0) % Monocytes % (0.0-12.0) % Eosinophils % (0.00-5.0) % Basophils % (0.0-0.4) % Absolute Granulocytes (1.4-6.9) Basophils # (0-0.4) D-Dimer 1409 H* (215-500) ng/mL Sodium (137-145) mmol/L Potassium (3.5-5.1) mmol/L Chloride (98-107) mmol/L Carbon Dioxide (22-30) mmol/L Anion Gap (5-15) MEQ/L BUN (7-17) mg/dL Creatinine (0.52-1.04) mg/dL Estimated GFR ML/MIN Glucose (74-106) mg/dL Lactic Acid 1.7 (0.4-2.0) Calcium (8.4-10.2) mg/dL Magnesium (1.6-2.3) mg/dL Total Bilirubin (0.2-1.3) mg/dL AST (14-36) U/L ALT (0-35) U/L Alkaline Phosphatase (38-126) U/L Creatine Kinase (30-135) U/L Serum Total Protein (6.3-8.2) g/dL Albumin (3.5-5.0) g/dL Urine Color ORANGE (YELLOW) Urine Appearance SLIGHTLY CLOUDY (CLEAR) Urine pH 5.0 (5-6) Ur Specific [place] 1.026 (1.005-1.025) Urine Protein 100 (Negative) Urine Ketones NEGATIVE (NEGATIVE) Urine Blood NEGATIVE (0-5) Aroldo/ul Urine Nitrite POSITIVE (NEGATIVE) Urine Bilirubin NEGATIVE (NEGATIVE) Urine Urobilinogen 4 (0-1) mg/dL Ur Leukocyte Esterase NEGATIVE (NEGATIVE) Urine WBC (Auto) 11-15 (0-5) /HPF Urine RBC (Auto) NONE (0-2) /HPF U Hyaline Cast (Auto) 26-50 (0-2) /LPF U Epithel Cells (Auto) MANY (FEW) /HPF Urine Bacteria (Auto) RARE (NEGATIVE) /HPF Urine Mucus (Auto) MODERATE (NEGATIVE) /HPF Urine Culture Reflexed YES (NO) Urine Glucose NEGATIVE (NEGATIVE) mg/dL 07/20/19 07/20/19 Range/Units 06:11 06:11 WBC 4.9 (4.0-10.5) K/mm3 RBC 4.57 (4.1-5.4) M/mm3 Hgb 13.6 (12.0-16.0) gm/dl Hct 41.1 (35-47) % MCV 89.9 (78-100) fl MCH 29.8 (26-32) pg MCHC 33.1 (32-36) g/dl RDW 14.4 H (11.5-14.0) % Plt Count 202 (150-450) K/mm3 MPV 10.6 (7.5-11.0) fl Gran % 68.8 H (36.0-66.0) % Eos # (Auto) 0.07 (0-0.5) Absolute Lymphs (auto) 0.99 L (1.0-4.6) Absolute Monos (auto) 0.45 (0.0-1.3) Lymphocytes % 20.2 L (24.0-44.0) % Monocytes % 9.2 (0.0-12.0) % Eosinophils % 1.4 (0.00-5.0) % Basophils % 0.4 (0.0-0.4) % Absolute Granulocytes 3.36 (1.4-6.9) Basophils # 0.02 (0-0.4) D-Dimer (215-500) ng/mL Sodium 137 (137-145) mmol/L Potassium 4.2 (3.5-5.1) mmol/L Chloride 107 (98-107) mmol/L Carbon Dioxide 21 L (22-30) mmol/L Anion Gap 14.0 (5-15) MEQ/L BUN 23 H (7-17) mg/dL Creatinine 1.32 H (0.52-1.04) mg/dL Estimated GFR 43.1 ML/MIN Glucose 111 H (74-106) mg/dL Lactic Acid (0.4-2.0) Calcium 9.2 (8.4-10.2) mg/dL Magnesium 1.8 (1.6-2.3) mg/dL Total Bilirubin 0.80 (0.2-1.3) mg/dL AST 24 (14-36) U/L ALT 16 (0-35) U/L Alkaline Phosphatase 125 (38-126) U/L Creatine Kinase 236 H (30-135) U/L Serum Total Protein 8.0 (6.3-8.2) g/dL Albumin 4.5 (3.5-5.0) g/dL Urine Color (YELLOW) Urine Appearance (CLEAR) Urine pH (5-6) Ur Specific [place] (1.005-1.025) Urine Protein (Negative) Urine Ketones (NEGATIVE) Urine Blood (0-5) Aroldo/ul Urine Nitrite (NEGATIVE) Urine Bilirubin (NEGATIVE) Urine Urobilinogen (0-1) mg/dL Ur Leukocyte Esterase (NEGATIVE) Urine WBC (Auto) (0-5) /HPF Urine RBC (Auto) (0-2) /HPF U Hyaline Cast (Auto) (0-2) /LPF U Epithel Cells (Auto) (FEW) /HPF Urine Bacteria (Auto) (NEGATIVE) /HPF Urine Mucus (Auto) (NEGATIVE) /HPF Urine Culture Reflexed (NO) Urine Glucose (NEGATIVE) mg/dL - Progress Counseled pt/family regarding: lab results, diagnosis, need for follow-up, rad results - Progress Progress Note: 07/20/19 06:36 Medical decision making: This patient has bilateral lower extremity leg cramping. She is not on any anticoagulation therapy. She has had elevated D- dimers in the past and today it is elevated at 1409. On 06/12/2019 patient had a negative CTA of chest. I can only find a venous Doppler from the year 2013. I think it is important to go ahead and order a venous Doppler of her bilateral lower extremities. Her potassium and magnesium are within normal range. We will order this venous Doppler. 07/20/19 06:53 I reviewed the patient history, condition, laboratory results, pending laboratory and pending test with Dr. Burroughs. He accepts the patient in transfer of care. He will make the final determination of this patient's disposition. 07/20/19 06:55 (PARK ROBERTS) 07/20/19 09:[address] Burroughs at approximately [address] Burroughs advised to follow- up on ultrasound lower extremities and to make final disposition. Ultrasound negative for DVT. Labs suggestive of dehydration. Creatinine elevated. Patient states she feels dehydrated. Patient received 1 L IV fluid. Cramping resolved. CK within a normal range. Upon further discussion of elevated d- dimer, patient refused CT scan. Patient states her primary care doctor told her that she should receive further scans for positive d-dimer as her dimer will be chronically elevated. Patient states she is ready for discharge. All questions were answered. Patient voices no other complaints or concerns. (SHIRLENE BURROUGHS) - Departure Departure Disposition: Home Critical Care Time: No - Departure Clinical Impression: Elevated d-dimer, Leg pain, bilateral, Dehydration Condition: Stable Referrals: LLUVIA CHILDERS DO [Primary Care Provider] - Additional Instructions: Discharge/Care Plan GEOVANNY FREY was seen on 07/20/19 in the Emergency Room. The patient was counseled regarding Diagnosis,Lab results, Imaging studies, need for follow up and when to return to the Emergency Room. Prescriptions given: Discharge Note I have spoken with the patient and/or caregivers. I have explained the patient' s condition, diagnosis and treatment plan based on the information available to me at this time. I have answered the patient's and/or caregiver's questions and addressed any concerns. The patient and/or caregivers have as good understanding of the patient's diagnosis, condition and treatment plan as can be expected at this point. The vital signs have been stable. The patient's condition is stable and appropriate for discharge from the emergency department. The patient will pursue further outpatient evaluation with the primary care physician or other designated or consulting physician as outlined in the discharge instructions. The patient and/or caregivers are agreeable to this plan of care and follow-up instructions have been explained in detail. The patient and/or caregivers have received these instruction. The patient/and or caregivers are aware that any significant change in condition or worsening of symptoms should prompt an immediate return to this or the closest emergency department or call 911.
[2019-07-20 06:20] LABS: Absolute Neutrophil Ct (ANC) 3.36 (1.4-6.9); BASOPHIL % 0.4 % (0.0-0.4); Basophil (Absolute #) 0.02 (0-0.4); Eosinophil % 1.4 % (0.00-5.0); Eosinophil (Absolute #) 0.07 (0-0.5); Hematocrit 41.1 % (35-47); Hemoglobin 13.6 gm/dl (12.0-16.0); Lymphocyte (Absolute #) 0.99 (1.0-4.6); Lymphocytes % 20.2 % (24.0-44.0); Mean Cell Volume 89.9 fl (78-100); Mean Corpuscular Hemoglobin 29.8 pg (26-32); Mean Corpuscular Hgb Concent. 33.1 g/dl (32-36); Mean Platelet Volume 10.6 fl (7.5-11.0); Monocyte (Absolute #) 0.45 (0.0-1.3); Monocytes % 9.2 % (0.0-12.0); Neutrophil % 68.8 % (36.0-66.0); Platelet Count 202 K/mm3 (150-450); Red Blood Count 4.57 M/mm3 (4.1-5.4); Red Cell Distribution Width 14.4 % (11.5-14.0); White Blood Count 4.9 K/mm3 (4.0-10.5)
[2019-07-20 06:30] LABS: ALBUMIN 4.5 g/dL (3.5-5.0); BILIRUBIN,TOTAL 0.8 mg/dL (0.2-1.3); Calcium 9.2 mg/dL (8.4-10.2); Creatinine 1 1.32 mg/dL (0.52-1.04); MAGNESIUM 1.8 mg/dL (1.6-2.3); Potassium 4.2 mmol/L (3.5-5.1)
[2019-07-20 07:03] LABS: Appearance SLIGHTLY CLOUDY (CLEAR); Bacteria RARE /HPF (NEGATIVE); Bilirubin NEGATIVE (NEGATIVE); Blood NEGATIVE Ery/ul (0-5); Epithelial Cells MANY /HPF (FEW); Glucose NEGATIVE (NEGATIVE); Hyaline Casts 26-50 /LPF (0-2); Ketones NEGATIVE (NEGATIVE); Leukocyte Esterase NEGATIVE (NEGATIVE); Mucus MODERATE /HPF (NEGATIVE); Nitrite POSITIVE (NEGATIVE); Protein,Urine Dip 100 (Negative); Specific Gravity 1.026 (1.005-1.025); Urobilinogen 4 mg/dL (0-1)
[2019-07-20] MEDS ORDERED: Sodium Chloride 0.9% 1000 ML 1,000 ML IV STA (07:39)
[2019-07-20] MEDS ORDERED: Sodium Chloride 0.9% 1000 ML 1,000 ML ONE (07:40)
--- NOTE | 2019-07-20 08:57 | XRAY ---
Indication: Leg cramps. Two-dimensional sonogram and color Doppler imaging of the major venous vessels of the left and right leg was performed. Comparison: None No thrombus seen in the examined deep venous vessels of the left and right leg including greater saphenous vein. Veins demonstrate normal compressibility. Venous waveforms are normal with and without augmentation. Impression: Left and right legs negative for DVT.
[2019-07-20 09:11] VITALS: BP 106/60; PULSE 88; O2SAT 98
== END 2019-07-20 09:13 | disposition home or self-care (01) ==
LOC: ED 05:02
DX: R79.1 Abnormal coagulation profile (principal); M79.605 Pain in left leg; M79.604 Pain in right leg; E86.0 Dehydration; E03.9 Hypothyroidism, unspecified; J44.9 Chronic obstructive pulmonary disease, unspecified; Z79.899 Other long term (current) drug therapy
CPT/HCPCS: 36415; 80053; 81001; 82550; 83605; 83735; 85025; 85379; 87077; 87086; 87186; 93970; 96360; 99284; J1642

== ENCOUNTER 2019-08-18 17:18 | Emergency (ER) | payer MEDICARE ==
[2019-08-18] MEDS ORDERED: Zofran 4 MG/2 ML VIAL IV ONE (17:40)
[2019-08-18] MEDS ORDERED: Sodium Chloride 0.9% 1000 ML 1,000 ML IV STA (17:40)
[2019-08-18 17:54] LABS: Absolute Neutrophil Ct (ANC) 3.56 (1.4-6.9); BASOPHIL % 0.4 % (0.0-0.4); Basophil (Absolute #) 0.02 (0-0.4); Eosinophil (Absolute #) 0.05 (0-0.5); Hematocrit 39.8 % (35-47); Hemoglobin 13.1 gm/dl (12.0-16.0); Lymphocyte (Absolute #) 1.13 (1.0-4.6); Lymphocytes % 21.9 % (24.0-44.0); Mean Cell Volume 91.3 fl (78-100); Mean Corpuscular Hgb Concent. 32.9 g/dl (32-36); Mean Platelet Volume 10.7 fl (7.5-11.0); Monocyte (Absolute #) 0.41 (0.0-1.3); Monocytes % 7.9 % (0.0-12.0); Neutrophil % 68.8 % (36.0-66.0); Platelet Count 207 K/mm3 (150-450); Red Blood Count 4.36 M/mm3 (4.1-5.4); White Blood Count 5.2 K/mm3 (4.0-10.5)
[2019-08-18 18:05] LABS: ALBUMIN 4.4 g/dL (3.5-5.0); ANION GAP 11.7 MEQ/L (5-15); BILIRUBIN,TOTAL 0.6 mg/dL (0.2-1.3); Creatinine 1 1.17 mg/dL (0.52-1.04); Potassium 4.1 mmol/L (3.5-5.1); Total Protein 7.9 g/dL (6.3-8.2)
[2019-08-18] MEDS ORDERED: Sodium Chloride 0.9% 1000 ML 1,000 ML ONE (18:27)
[2019-08-18] MEDS ORDERED: Zofran 4 MG/2 ML VIAL ONE (18:27)
--- NOTE | 2019-08-18 19:01 | ERPHSYRPT ---
- History of Present Illness Time Seen by Provider: 08/18/19 17:30 Exam Limitations: no limitations Patient Subjective Stated Complaint: nausea and dehydration Triage Nursing Assessment: pt to ED c/o nausea and dehydration. pt states she has been drinking lots of water but making very little urine. states her pcp told her to go to infusion center for fluids, pt came to ED for IV fluids d/t infusion center closing. denies pain at this time. ambulatory to room x 1 assist . Physician History: Patient is a 64-year-old female who presents with a complaint of nausea and vomiting. 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 She frequently gets dehydrated because of this was instructed by her PCP to go to the infusion center but came to the ER due to the fact the infusion center was closing. And she could not get there on time. Other problems include chronic shortness of breath and acid reflux she did take Phenergan earlier which helped some. Timing/Duration: today Activities at Onset: none Abdominal Pain Onset Location: generalized abdomen Pain Radiation: no radiation Severity of Pain-Max: mild Severity of Pain-Current: mild Modifying Factors: Improves With: vomiting Allergies/Adverse Reactions: sumatriptan [From Imitrex] Allergy (Intermediate, Verified 07/20/19 05:12) Rash codeine Allergy (Mild, Verified 07/20/19 05:12) Rash MAKES SICK nitrofurantoin [From Macrobid] Allergy (Unknown, Verified 07/20/19 05:12) sumatriptan succinate [From Imitrex] Allergy (Verified 07/20/19 05:12) morphine Adverse Reaction (Severe, Verified 07/20/19 05:12) Headache MIGRAINES fentanyl Adverse Reaction (Intermediate, Verified 07/20/19 05:12) Headache hydrocodone bitartrate [From Vicodin] Adverse Reaction (Mild, Verified 07/20/19 05:12) Vomiting hydromorphone [From Dilaudid] Adverse Reaction (Mild, Verified 07/20/19 05:12) pt states makes heache worse. Home Medications: Alprazolam 1 mg [Xanax 1 mg] 1 mg PO TID 02/17/13 [History] Polyethylene Glycol 3350 17 gm [Miralax Powder 17GM PACKET] 34 gm PO BID 11/15/14 [History] Sennosides/Docusate Sodium [Senokot-S Tablet] 1 tab PO DAILY 04/25/15 [History] Promethazine HCl 25 mg [Phenergan 25 mg] 25 mg PO Q4HPRN PRN 05/11/15 [History] Cetirizine HCl/Pseudoephedrine [Zyrtec-D Tablet] 1 each PO DAILY 02/03/16 [History] Aspirin 81 mg PO DAILY 09/11/16 [History] Levothyroxine Sodium 50 Mcg [Synthroid 50 Mcg] 50 mcg PO DAILY 07/06/17 [History] Linaclotide [Linzess] 290 mcg PO DAILY 10/07/17 [History] Rizatriptan Benzoate [Maxalt] 10 mg PO BID PRN PRN 06/23/18 [History] Fluticasone Propionate [Flonase NASAL] 2 spray NS DAILY 01/19/19 [History] Sodium Bicarbonate 650 mg PO DAILY 01/19/19 [History] Phenazopyridine HCl 200 mg [Pyridium 200 mg] 200 mg PO BID PRN 03/20/19 [History] Guaifenesin 600 mg ER [Mucinex 600MG ER Tabs] 600 mg PO DAILY 04/05/19 [History] Sucralfate 1 gm [Carafate 1 GM] 1 g PO ACHS 04/05/19 [History] Methenamine 1 dose TOP HS 07/20/19 [History] Prucalopride Succinate [Motegrity] 1 tab PO DAILY 07/20/19 [History] Hx Tetanus, Diphtheria Vaccination/Date Given: Yes Hx Influenza Vaccination/Date Given: Yes Hx Pneumococcal Vaccination/Date Given: Yes Travel Risk - International Travel Have you traveled outside of the country in past 3 weeks: No - Coronavirus Screening Are you exhibiting any of the following symptoms?: No Close contact with a COVID-19 positive Pt in past 14-21 Days: No - Review of Systems Constitutional: No Fever, No Chills Eyes: No Symptoms Ears, Nose, & Throat: No Symptoms Respiratory: No Cough, No Dyspnea Cardiac: No Chest Pain, No Edema, No Syncope Abdominal/Gastrointestinal: Abdominal Pain, Nausea, Vomiting, No Diarrhea Genitourinary Symptoms: No Dysuria Musculoskeletal: No Back Pain, No Neck Pain Skin: No Rash Neurological: No Dizziness, No Focal Weakness, No Sensory Changes Psychological: No Symptoms Endocrine: No Symptoms All Other Systems: Reviewed and Negative - Past Medical History Pertinent Past Medical History: Yes Neurological History: No Pertinent History, Migraines ENT History: Cataracts, Other Cardiac History: No Pertinent History Respiratory History: Bronchitis, COPD, Other Endocrine Medical History: Hypothyroidism, Other Musculoskeletal History: Arthritis, Degenerative Disk Disease, Osteoarthritis, Other GI Medical History: GERD, Irritable Bowel, Ulcer, Other History: Other Psycho-Social History: Anxiety Female Reproductive Disorders: Other Other Medical History: Recurrent UTI,urine kidney/bladder problems recurrent. 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 TRACHEA MALASIA - Past Surgical History Past Surgical History: Yes Neuro Surgical History: No Pertinent History Cardiac: No Pertinent History Respiratory: No Pertinent History Gastrointestinal: Bowel Surgery, Cholecystectomy, Colon Resection, Hernia Repair Genitourinary: Other Musculoskeletal: No Pertinent History Female Surgical History: Hysterectomy Other Surgical History: COLONOSCOPIES, EGDs. Total colectomy. FEEDING TUBE FOR 4 YEARS, stretches of bladder and urethra, bowel obstructions x2, lithotripsy. bronch on 1320 - Social History Smoking Status: Never smoker Exposure to second hand smoke: No Alcohol Use: None Drug Use: none Patient Lives Alone: No Significant Family History: no pertinent family hx - Female History Hx Now: No - Nursing Vital Signs Nursing Vital Signs: Initial Vital Signs Temperature 98.4 F 08/18/19 17:21 Pulse Rate 114 H 08/18/19 17:21 Respiratory Rate 22 08/18/19 17:21 O2 Sat by Pulse Oximetry 96 08/18/19 17:21 Pain Scale Pain Intensity 0 - Physical Exam General Appearance: mild distress, alert Eye Exam: PERRL/EOMI, eyes nml inspection Ears, Nose, Throat Exam: normal ENT inspection, pharynx normal, moist mucous membranes Neck Exam: normal inspection, non-tender, supple, full range of motion Respiratory Exam: normal breath sounds, lungs clear, No respiratory distress Cardiovascular Exam: regular rate/rhythm, normal heart sounds Gastrointestinal/Abdomen Exam: normal bowel sounds, No tenderness, No mass Back Exam: normal inspection, normal range of motion, No CVA tenderness, No vertebral tenderness Extremity Exam: normal inspection, normal range of motion, pelvis stable Neurologic Exam: alert, 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, cooperative, normal mood/affect, nml cerebellar function, sensation nml, No motor deficits Skin Exam: normal color, warm, dry SpO2 Interpretation: normal SpO2: 97 O2 Delivery: Room Air - Course Nursing assessment & vital signs reviewed: Yes Ordered Tests: Active Orders 24 hr Category Date Time Status AMYLASE Stat Lab 08/18/19 17:50 Completed CBC W DIFF Stat Lab 08/18/19 17:40 Completed CMP Stat Lab 08/18/19 17:50 Completed CULTURE,URINE Stat Lab 08/18/19 19:00 Received LIPASE Stat Lab 08/18/19 17:50 Completed UA W/RFX UR CULTURE Stat Lab 08/18/19 19:00 Completed Medication Summary Discontinued Medications Generic Name Dose Route Start Last Admin Trade Name Brendonq PRN Reason Stop Dose Admin Sodium Chloride 1,000 mls @ 999 mls/hr 08/18/19 17:40 08/18/19 18:29 Sodium Chloride 0.9% 1000 Ml IV 08/18/19 18:40 999 mls/hr .Q1H1M STA Administration Sodium Chloride Confirm 08/18/19 18:27 Sodium Chloride 0.9% 1000 Ml Administered 08/18/19 18:28 Dose 1,000 mls @ ud .ROUTE .STK-MED ONE Ondansetron HCl 4 mg 08/18/19 17:40 08/18/19 18:29 Zofran 4 Mg/2 Ml Vial IV 08/18/19 17:41 4 mg STAT ONE Administration Ondansetron HCl Confirm 08/18/19 18:27 Zofran 4 Mg/2 Ml Vial Administered 08/18/19 18:28 Dose 4 mg .ROUTE .STK-MED ONE Lab/Rad Data: Laboratory Result Diagrams 08/18/19 17:40 08/18/19 17:50 Laboratory Results 08/18/19 08/18/19 08/18/19 Range/Units 19:00 17:50 17:40 WBC 5.2 (4.0-10.5) K/mm3 RBC 4.36 (4.1-5.4) M/mm3 Hgb 13.1 (12.0-16.0) gm/dl Hct 39.8 (35-47) % MCV 91.3 (78-100) fl MCH 30.0 (26-32) pg MCHC 32.9 (32-36) g/dl RDW 14.0 (11.5-14.0) % Plt Count 207 (150-450) K/mm3 MPV 10.7 (7.5-11.0) fl Gran % 68.8 H (36.0-66.0) % Eos # (Auto) 0.05 (0-0.5) Absolute Lymphs (auto) 1.13 (1.0-4.6) Absolute Monos (auto) 0.41 (0.0-1.3) Lymphocytes % 21.9 L (24.0-44.0) % Monocytes % 7.9 (0.0-12.0) % Eosinophils % 1.0 (0.00-5.0) % Basophils % 0.4 (0.0-0.4) % Absolute Granulocytes 3.56 (1.4-6.9) Basophils # 0.02 (0-0.4) Sodium 138 (137-145) mmol/L Potassium 4.1 (3.5-5.1) mmol/L Chloride 113 H (98-107) mmol/L Carbon Dioxide 17 L (22-30) mmol/L Anion Gap 11.7 (5-15) MEQ/L BUN 30 H (7-17) mg/dL Creatinine 1.17 H (0.52-1.04) mg/dL Estimated GFR 49.5 ML/MIN Glucose 110 H (74-106) mg/dL Calcium 9.0 (8.4-10.2) mg/dL Total Bilirubin 0.60 (0.2-1.3) mg/dL AST 24 (14-36) U/L ALT 16 (0-35) U/L Alkaline Phosphatase 114 (38-126) U/L Serum Total Protein 7.9 (6.3-8.2) g/dL Albumin 4.4 (3.5-5.0) g/dL Amylase 83 (30-110) U/L Lipase 209 (23-300) U/L Urine Color YELLOW (YELLOW) Urine Appearance CLOUDY (CLEAR) Urine pH 5.0 (5-6) Ur Specific [place] 1.027 (1.005-1.025) Urine Protein 30 (Negative) Urine Ketones NEGATIVE (NEGATIVE) Urine Blood SMALL (0-5) [place]/ul Urine Nitrite NEGATIVE (NEGATIVE) Urine Bilirubin NEGATIVE (NEGATIVE) Urine Urobilinogen NEGATIVE (0-1) mg/dL Ur Leukocyte Esterase MODERATE (NEGATIVE) Urine WBC (Auto) 16-25 (0-5) /HPF Urine RBC (Auto) 11-15 (0-2) /HPF U Hyaline Cast (Auto) 3-5 (0-2) /LPF U Epithel Cells (Auto) MANY (FEW) /HPF Urine Bacteria (Auto) NONE (NEGATIVE) /HPF Urine Mucus (Auto) SLIGHT (NEGATIVE) /HPF Urine Yeast (Budding) Few (NEGATIVE) /HPF Urine Culture Reflexed YES (NO) Urine Glucose NEGATIVE (NEGATIVE) mg/dL - Progress Progress: improved - Departure Departure Disposition: Home Clinical Impression: Dehydration, Urinary tract infection Condition: Stable Critical Care Time: No Referrals: LLUVIA CHILDERS DO [Primary Care Provider] - Prescriptions: Cephalexin Mh 500 mg [Keflex 500 mg] 500 mg PO TID #21 capsule
[2019-08-18 19:19] LABS: Appearance CLOUDY (CLEAR); Bilirubin NEGATIVE (NEGATIVE); Blood SMALL Ery/ul (0-5); Budding Yeast Few /HPF (NEGATIVE); Epithelial Cells MANY /HPF (FEW); Glucose NEGATIVE (NEGATIVE); Ketones NEGATIVE (NEGATIVE); Leukocyte Esterase MODERATE (NEGATIVE); Mucus SLIGHT /HPF (NEGATIVE); Nitrite NEGATIVE (NEGATIVE); Protein,Urine Dip 30 (Negative); Specific Gravity 1.027 (1.005-1.025); Urobilinogen NEGATIVE mg/dL (0-1)
[2019-08-18 19:54] VITALS: BP 96/57; PULSE 89; O2SAT 98
== END 2019-08-18 19:56 | disposition home or self-care (01) ==
LOC: ED 17:18
DX: E86.0 Dehydration (principal); N39.0 Urinary tract infection, site not specified; J44.9 Chronic obstructive pulmonary disease, unspecified; E03.9 Hypothyroidism, unspecified; F41.9 Anxiety disorder, unspecified
CPT/HCPCS: 36415; 80053; 81001; 82150; 83690; 85025; 87077; 87086; 87186; 96360; 96374; 96375; 99284; J1642; J2405

== ENCOUNTER 2019-09-03 14:47 | Emergency (ER) | payer MEDICARE ==
[2019-09-03] MEDS ORDERED: Sodium Chloride 0.9% 1000 ML 1,000 ML IV STA ×2 (15:08→15:10)
[2019-09-03] MEDS ORDERED: Sodium Chloride 0.9% 1000 ML 2,000 ML ONE (15:21)
[2019-09-03 15:31] LABS: BASOPHIL % 0.4 % (0.0-0.4); Basophil (Absolute #) 0.02 (0-0.4); Eosinophil % 1.1 % (0.00-5.0); Eosinophil (Absolute #) 0.05 (0-0.5); Hematocrit 39.2 % (35-47); Hemoglobin 12.7 gm/dl (12.0-16.0); Lymphocyte (Absolute #) 0.98 (1.0-4.6); Lymphocytes % 21.3 % (24.0-44.0); Mean Cell Volume 91.6 fl (78-100); Mean Corpuscular Hemoglobin 29.7 pg (26-32); Mean Corpuscular Hgb Concent. 32.4 g/dl (32-36); Mean Platelet Volume 10.9 fl (7.5-11.0); Monocyte (Absolute #) 0.36 (0.0-1.3); Monocytes % 7.8 % (0.0-12.0); Neutrophil % 69.4 % (36.0-66.0); Platelet Count 168 K/mm3 (150-450); Red Blood Count 4.28 M/mm3 (4.1-5.4); Red Cell Distribution Width 13.4 % (11.5-14.0); White Blood Count 4.6 K/mm3 (4.0-10.5)
[2019-09-03 15:57] LABS: ANION GAP 10.7 MEQ/L (5-15); BILIRUBIN,TOTAL 0.4 mg/dL (0.2-1.3); Calcium 8.8 mg/dL (8.4-10.2); Creatinine 1 1.18 mg/dL (0.52-1.04); Potassium 3.8 mmol/L (3.5-5.1); Total Protein 7.2 g/dL (6.3-8.2)
--- NOTE | 2019-09-03 17:20 | ERPHSYRPT ---
- History of Present Illness Time Seen by Provider: 09/03/19 15:25 Patient Subjective Stated Complaint: Pt states "I am supposed to get iv fluids on wed but I cannot wait until then, I am weak. I am only here for fluids." Triage Nursing Assessment: Pt presnted alert and oriented X 3, skin pwd Pt ambulates with a slow shuffling gait, able to speak in clear full sentences. Pt acting her normal. Physician History: Patient is a 64-year-old female who has a diagnosis of "pseudoobstruction. Which causes frequent dehydration due to repeated nausea and vomiting. She also states that she was at the infusion center last Wednesday where she receives a regular IV fluid and fusions and said that her potassium was low. She is scheduled for a cystoscopy with Dr. Emerson the this coming . She also claims to have had no urine output since July 27. Although looking in her BUN and creatinine her renal function has not deteriorated. Timing/Duration: other (Chronic) Activities at Onset: none Quality: cramping, fullness Abdominal Pain Onset Location: suprapubic Pain Radiation: no radiation Severity of Pain-Max: moderate Severity of Pain-Current: moderate Modifying Factors: Improves With: nothing Associated Symptoms: nausea, vomiting Allergies/Adverse Reactions: sumatriptan [From Imitrex] Allergy (Intermediate, Verified 08/30/19 10:16) Rash codeine Allergy (Mild, Verified 08/30/19 10:16) Rash MAKES SICK nitrofurantoin [From Macrobid] Allergy (Unknown, Verified 08/30/19 10:16) sumatriptan succinate [From Imitrex] Allergy (Verified 08/30/19 10:16) morphine Adverse Reaction (Severe, Verified 08/30/19 10:16) Headache MIGRAINES fentanyl Adverse Reaction (Intermediate, Verified 08/30/19 10:16) Headache hydrocodone bitartrate [From Vicodin] Adverse Reaction (Mild, Verified 08/30/19 10:16) Vomiting hydromorphone [From Dilaudid] Adverse Reaction (Mild, Verified 08/30/19 10:16) pt states makes heache worse. Home Medications: Alprazolam 1 mg [Xanax 1 mg] 1 mg PO TID 02/17/13 [History] Polyethylene Glycol 3350 17 gm [Miralax Powder 17GM PACKET] 34 gm PO BID 11/15/14 [History] Sennosides/Docusate Sodium [Senokot-S Tablet] 1 tab PO DAILY 04/25/15 [History] Promethazine HCl 25 mg [Phenergan 25 mg] 25 mg PO Q4HPRN PRN 05/11/15 [History] Cetirizine HCl/Pseudoephedrine [Zyrtec-D Tablet] 1 each PO DAILY 02/03/16 [History] Aspirin 81 mg PO DAILY 09/11/16 [History] Levothyroxine Sodium 50 Mcg [Synthroid 50 Mcg] 50 mcg PO DAILY 07/06/17 [History] Linaclotide [Linzess] 290 mcg PO DAILY 10/07/17 [History] Rizatriptan Benzoate [Maxalt] 10 mg PO BID PRN PRN 06/23/18 [History] Fluticasone Propionate [Flonase NASAL] 2 spray NS DAILY 01/19/19 [History] Sodium Bicarbonate 650 mg PO DAILY 01/19/19 [History] Phenazopyridine HCl 200 mg [Pyridium 200 mg] 200 mg PO BID PRN 03/20/19 [History] Guaifenesin 600 mg ER [Mucinex 600MG ER Tabs] 600 mg PO DAILY 04/05/19 [History] Sucralfate 1 gm [Carafate 1 GM] 1 g PO ACHS 04/05/19 [History] Methenamine 1 dose TOP HS 07/20/19 [History] Prucalopride Succinate [Motegrity] 1 tab PO DAILY 07/20/19 [History] Hx Tetanus, Diphtheria Vaccination/Date Given: Yes Hx Influenza Vaccination/Date Given: Yes Hx Pneumococcal Vaccination/Date Given: Yes Immunizations Up to Date: Yes Travel Risk - International Travel Have you traveled outside of the country in past 3 weeks: No - Coronavirus Screening Are you exhibiting any of the following symptoms?: No Close contact with a COVID-19 positive Pt in past 14-21 Days: No - Review of Systems Constitutional: No Fever, No Chills Eyes: No Symptoms Ears, Nose, & Throat: No Symptoms Respiratory: No Cough, No Dyspnea Cardiac: No Chest Pain, No Edema, No Syncope Abdominal/Gastrointestinal: Abdominal Pain, No Nausea, No Vomiting, No Diarrhea Genitourinary Symptoms: No Dysuria Musculoskeletal: No Back Pain, No Neck Pain Skin: No Rash Neurological: No Dizziness, No Focal Weakness, No Sensory Changes Psychological: No Symptoms Endocrine: No Symptoms All Other Systems: Reviewed and Negative - Past Medical History Pertinent Past Medical History: Yes Neurological History: No Pertinent History, Migraines ENT History: Cataracts, Other Cardiac History: No Pertinent History Respiratory History: Bronchitis, COPD, Other Endocrine Medical History: Hypothyroidism, Other Musculoskeletal History: Arthritis, Degenerative Disk Disease, Osteoarthritis, Other GI Medical History: GERD, Irritable Bowel, Ulcer, Other History: Other Psycho-Social History: Anxiety Female Reproductive Disorders: Other Other Medical History: Recurrent UTI,urine kidney/bladder problems recurrent. 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 TRACHEA MALASIA - Past Surgical History Past Surgical History: Yes Neuro Surgical History: No Pertinent History Cardiac: No Pertinent History Respiratory: No Pertinent History Gastrointestinal: Bowel Surgery, Cholecystectomy, Colon Resection, Hernia Repair Genitourinary: Other Musculoskeletal: No Pertinent History Female Surgical History: Hysterectomy Other Surgical History: COLONOSCOPIES, EGDs. Total colectomy. FEEDING TUBE FOR 4 YEARS, stretches of bladder and urethra, bowel obstructions x2, lithotripsy. bronch on 1320 - Social History Smoking Status: Never smoker Exposure to second hand smoke: No Alcohol Use: None Drug Use: none Patient Lives Alone: Yes Significant Family History: no pertinent family hx - Nursing Vital Signs Nursing Vital Signs: Initial Vital Signs Temperature 98.1 F 09/03/19 15:03 Pulse Rate 98 H 09/03/19 15:03 Respiratory Rate 22 09/03/19 15:03 Blood Pressure 132/88 09/03/19 15:03 O2 Sat by Pulse Oximetry 98 09/03/19 15:03 Pain Scale Pain Intensity 0 - Physical Exam General Appearance: mild distress, alert Eye Exam: PERRL/EOMI, eyes nml inspection Ears, Nose, Throat Exam: normal ENT inspection, pharynx normal, moist mucous membranes Neck Exam: normal inspection, non-tender, supple, full range of motion Respiratory Exam: normal breath sounds, lungs clear, No respiratory distress Cardiovascular Exam: regular rate/rhythm, normal heart sounds Gastrointestinal/Abdomen Exam: soft, No tenderness, No mass Back Exam: normal inspection, normal range of motion, No CVA tenderness, No vertebral tenderness Extremity Exam: normal inspection, normal range of motion, pelvis stable Neurologic Exam: alert, 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, cooperative, normal mood/affect, nml cerebellar function, sensation nml, No motor deficits Skin Exam: normal color, warm, dry SpO2 Interpretation: normal SpO2: 99 O2 Delivery: Room Air - Course Nursing assessment & vital signs reviewed: Yes Ordered Tests: Active Orders 24 hr Category Date Time Status IV Insertion STAT Care 09/03/19 15:08 Active OBSTR/ACUTE ABDOMEN SERIES Stat Exams 09/03/19 15:10 Taken AMYLASE Stat Lab 09/03/19 15:24 Completed CBC W DIFF Stat Lab 09/03/19 15:24 Completed CMP Stat Lab 09/03/19 15:24 Completed LIPASE Stat Lab 09/03/19 15:24 Completed Lactic Acid Stat Lab 09/03/19 15:08 Completed UA W/RFX UR CULTURE Stat Lab 09/03/19 15:09 Uncollected Medication Summary Discontinued Medications Generic Name Dose Route Start Last Admin Trade Name Freq PRN Reason Stop Dose Admin Sodium Chloride 1,000 mls @ 999 mls/hr 09/03/19 15:10 09/03/19 16:28 Sodium Chloride 0.9% 1000 Ml IV 09/03/19 16:10 Infused .Q1H1M STA Infusion Sodium Chloride 1,000 mls @ 999 mls/hr 09/03/19 15:08 09/03/19 16:28 Sodium Chloride 0.9% 1000 Ml IV 09/03/19 16:08 Infused .Q1H1M STA Infusion Sodium Chloride Confirm 09/03/19 15:21 Sodium Chloride 0.9% 1000 Ml Administered 09/03/19 15:22 Dose 2,000 mls @ ud .ROUTE .STK-MED ONE Lab/Rad Data: Laboratory Result Diagrams 09/03/19 15:24 09/03/19 15:24 Laboratory Results 09/03/19 09/03/19 09/03/19 Range/Units 15:24 15:24 15:08 WBC 4.6 (4.0-10.5) K/mm3 RBC 4.28 (4.1-5.4) M/mm3 Hgb 12.7 (12.0-16.0) gm/dl Hct 39.2 (35-47) % MCV 91.6 (78-100) fl MCH 29.7 (26-32) pg MCHC 32.4 (32-36) g/dl RDW 13.4 (11.5-14.0) % Plt Count 168 (150-450) K/mm3 MPV 10.9 (7.5-11.0) fl Gran % 69.4 H (36.0-66.0) % Eos # (Auto) 0.05 (0-0.5) Absolute Lymphs (auto) 0.98 L (1.0-4.6) Absolute Monos (auto) 0.36 (0.0-1.3) Lymphocytes % 21.3 L (24.0-44.0) % Monocytes % 7.8 (0.0-12.0) % Eosinophils % 1.1 (0.00-5.0) % Basophils % 0.4 (0.0-0.4) % Absolute Granulocytes 3.20 (1.4-6.9) Basophils # 0.02 (0-0.4) Sodium 140 (137-145) mmol/L Potassium 3.8 (3.5-5.1) mmol/L Chloride 115 H (98-107) mmol/L Carbon Dioxide 18 L (22-30) mmol/L Anion Gap 10.7 (5-15) MEQ/L BUN 19 H (7-17) mg/dL Creatinine 1.18 H (0.52-1.04) mg/dL Estimated GFR 49.0 ML/MIN Glucose 110 H (74-106) mg/dL Lactic Acid 1.2 (0.4-2.0) Calcium 8.8 (8.4-10.2) mg/dL Total Bilirubin 0.40 (0.2-1.3) mg/dL AST 24 (14-36) U/L ALT 18 (0-35) U/L Alkaline Phosphatase 111 (38-126) U/L Serum Total Protein 7.2 (6.3-8.2) g/dL Albumin 4.0 (3.5-5.0) g/dL Amylase 98 (30-110) U/L Lipase 179 (23-300) U/L - Progress Progress: improved - Departure Departure Disposition: Home Clinical Impression: Dehydration Condition: Stable Critical Care Time: No Referrals: LLUVIA CHILDERS DO [Primary Care Provider] - Instructions: Dehydration, Adult (DC)
[2019-09-03 17:24] VITALS: BP 115/71; PULSE 84; O2SAT 95
--- NOTE | 2019-09-04 08:38 | XRAY ---
Indication: Nausea. Comparison: Chest exam June 12, 2019. 2 view abdomen nonacute and nonobstructed. There are multiple bilateral phleboliths. Solid organs unremarkable. Osseous structures intact with mild/moderate degenerative changes throughout the spine and minimal double curvature scoliosis. Single PA chest demonstrates normal heart and lungs with incidental right hilar calcified nodes and right Port-A-Cath. Bony thorax intact. Impression: Nonacute nonobstructed abdomen. Nonacute one view chest with chronic features.
== END 2019-09-03 17:48 | disposition home or self-care (01) ==
LOC: ED 14:47
DX: E86.0 Dehydration (principal); J44.9 Chronic obstructive pulmonary disease, unspecified; E03.9 Hypothyroidism, unspecified; M19.90 Unspecified osteoarthritis, unspecified site; K21.9 Gastro-esophageal reflux disease without esophagitis; Z16.12 Extended spectrum beta lactamase (ESBL) resistance
CPT/HCPCS: 36000; 36415; 74022; 80053; 82150; 83605; 83690; 85025; 96360; 99284; J1642

== ENCOUNTER 2019-09-09 16:22 | Emergency (ER) | payer MEDICARE ==
--- NOTE | 2019-09-09 16:50 | ERPHSYRPT ---
- History of Present Illness Time Seen by Provider: 09/09/19 16:49 Historian: patient Exam Limitations: no limitations Patient Subjective Stated Complaint: Pt states that she got up out of a chair and she had a sudden pain in her medial chest that radiates to her right chest and to her right arm, states that it is really tight Triage Nursing Assessment: Pt brought to the ER by her daughter, tachycardic, pt rubbing middle of chest stating that "it's tight", pt had a bladder procedure done yesterday to help with urination, pulses normal, hyperventalating, rates chest pain as 10/25 Physician History: Pt states that she got up out of a chair and she had a sudden pain in her medial chest that radiates to her right chest and to her right arm, states that it is really tight, denies any fever, chills, nausea, vomiting Timing/Duration: today Activities at Onset: none Quality: stabbing Location: substernal, epigastric Chest Pain Radiation: no radiation Severity of Pain-Max: moderate Severity of Pain-Current: mild Modifying Factors: Improves With: nothing Associated Symptoms: shortness of breath Prior Chest Pain/Cardiac Workup: no prior chest pain Nitro Today/Relief: no nitro taken today Aspirin Treatment Today: no aspirin today Allergies/Adverse Reactions: sumatriptan [From Imitrex] Allergy (Intermediate, Verified 09/09/19 16:36) Rash codeine Allergy (Mild, Verified 09/09/19 16:36) Rash MAKES SICK nitrofurantoin [From Macrobid] Allergy (Unknown, Verified 09/09/19 16:36) sumatriptan succinate [From Imitrex] Allergy (Verified 09/09/19 16:36) morphine Adverse Reaction (Severe, Verified 09/09/19 16:36) Headache MIGRAINES fentanyl Adverse Reaction (Intermediate, Verified 09/09/19 16:36) Headache hydrocodone bitartrate [From Vicodin] Adverse Reaction (Mild, Verified 09/09/19 16:36) Vomiting hydromorphone [From Dilaudid] Adverse Reaction (Mild, Verified 09/09/19 16:36) pt states makes heache worse. Home Medications: Alprazolam 1 mg [Xanax 1 mg] 1 mg PO TID 02/17/13 [History] Polyethylene Glycol 3350 17 gm [Miralax Powder 17GM PACKET] 34 gm PO BID 11/15/14 [History] Sennosides/Docusate Sodium [Senokot-S Tablet] 1 tab PO DAILY 04/25/15 [History] Promethazine HCl 25 mg [Phenergan 25 mg] 25 mg PO Q4HPRN PRN 05/11/15 [ History] Cetirizine HCl/Pseudoephedrine [Zyrtec-D Tablet] 1 each PO DAILY 02/03/16 [History] Aspirin 81 mg PO DAILY 09/11/16 [History] Levothyroxine Sodium 50 Mcg [Synthroid 50 Mcg] 50 mcg PO DAILY 07/06/17 [History] Linaclotide [Linzess] 290 mcg PO DAILY 10/07/17 [History] Rizatriptan Benzoate [Maxalt] 10 mg PO BID PRN PRN 06/23/18 [History] Fluticasone Propionate [Flonase NASAL] 2 spray NS DAILY 01/19/19 [History] Sodium Bicarbonate 650 mg PO DAILY 01/19/19 [History] Phenazopyridine HCl 200 mg [Pyridium 200 mg] 200 mg PO BID PRN 03/20/19 [History] Guaifenesin 600 mg ER [Mucinex 600MG ER Tabs] 600 mg PO DAILY 04/05/19 [History] Sucralfate 1 gm [Carafate 1 GM] 1 g PO ACHS 04/05/19 [History] Methenamine 1 dose TOP HS 07/20/19 [History] Hx Tetanus, Diphtheria Vaccination/Date Given: Yes Hx Influenza Vaccination/Date Given: Yes Hx Pneumococcal Vaccination/Date Given: Yes Travel Risk - International Travel Have you traveled outside of the country in past 3 weeks: No - Coronavirus Screening Are you exhibiting any of the following symptoms?: No Close contact with a COVID-19 positive Pt in past 14-21 Days: No - Review of Systems Constitutional: No Fever, No Chills Eyes: No Symptoms Ears, Nose, & Throat: No Symptoms Respiratory: Dyspnea, No Cough, No Cyanosis Cardiac: Chest Pain, No Edema, No Syncope Abdominal/Gastrointestinal: No Abdominal Pain, No Nausea, No Vomiting, No Diarrhea Genitourinary Symptoms: No Dysuria Musculoskeletal: No Back Pain, No Neck Pain Skin: No Rash Neurological: No Dizziness, No Focal Weakness, No Sensory Changes Psychological: No Symptoms Endocrine: No Symptoms All Other Systems: Reviewed and Negative - Past Medical History Pertinent Past Medical History: Yes Neurological History: No Pertinent History, Migraines ENT History: Cataracts, Other Cardiac History: No Pertinent History Respiratory History: Bronchitis, COPD, Other Endocrine Medical History: Hypothyroidism, Other Musculoskeletal History: Arthritis, Degenerative Disk Disease, Osteoarthritis, Other GI Medical History: GERD, Irritable Bowel, Ulcer, Other History: Other Psycho-Social History: Anxiety Female Reproductive Disorders: Other Other Medical History: Recurrent UTI,urine kidney/bladder problems recurrent. 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 TRACHEA MALASIA - Past Surgical History Past Surgical History: Yes Neuro Surgical History: No Pertinent History Cardiac: No Pertinent History Respiratory: No Pertinent History Gastrointestinal: Bowel Surgery, Cholecystectomy, Colon Resection, Hernia Repair Genitourinary: Other Musculoskeletal: No Pertinent History Female Surgical History: Hysterectomy Other Surgical History: COLONOSCOPIES, EGDs. Total colectomy. FEEDING TUBE FOR 4 YEARS, stretches of bladder and urethra, bowel obstructions x2, lithotripsy. bronch on 1320 - Social History Smoking Status: Never smoker Exposure to second hand smoke: No Alcohol Use: None Drug Use: none Patient Lives Alone: Yes Significant Family History: no pertinent family hx - Female History Hx Now: No - Nursing Vital Signs Nursing Vital Signs: Initial Vital Signs Pulse Rate 108 H 09/09/19 16:25 Respiratory Rate 22 09/09/19 16:25 Blood Pressure 130/80 09/09/19 16:25 O2 Sat by Pulse Oximetry 97 09/09/19 16:25 Pain Scale Pain Intensity 9 - Physical Exam General Appearance: no apparent distress, alert Eye Exam: PERRL/EOMI, eyes nml inspection Ears, Nose, Throat Exam: normal ENT inspection, moist mucous membranes Neck Exam: normal inspection, non-tender, supple, full range of motion Respiratory Exam: normal breath sounds, lungs clear, No respiratory distress Cardiovascular Exam: regular rate/rhythm, normal heart sounds Gastrointestinal/Abdomen Exam: soft, No tenderness, No mass Back Exam: normal inspection, No CVA tenderness, No vertebral tenderness Extremity Exam: normal inspection, normal range of motion Neurologic Exam: alert, 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, cooperative, normal mood/affect, sensation nml, No motor deficits Skin Exam: normal color, warm, dry SpO2: 97 - Course Nursing assessment & vital signs reviewed: Yes EKG Interpreted by Me: Sinus Rhythm - Radiology Exams Chest X-ray Interpretation: Reviewed by me, Negative Ordered Tests: Active Orders 24 hr Category Date Time Status Trial Court Judge STAT Care 09/09/19 16:46 Active EKG-ER Only STAT Care 09/09/19 16:46 Active CHEST 1 VIEW (PORTABLE) Stat Exams 09/09/19 16:46 Taken CBC W DIFF Stat Lab 09/09/19 17:01 Completed CMP Stat Lab 09/09/19 17:01 Completed NT PRO BNP Stat Lab 09/09/19 17:01 Completed TROPONIN Q3H Lab 09/09/19 17:01 Received TROPONIN Q3H Lab 09/09/19 20:00 Ordered TROPONIN Q3H Lab 09/09/19 23:00 Ordered TROPONIN Q3H Lab 09/10/19 02:00 Ordered TROPONIN Q3H Lab 09/10/19 05:00 Ordered Medication Summary Generic Name Dose Route Start Last Admin Trade Name Freq PRN Reason Stop Dose Admin Sodium Chloride 1,000 mls @ 50 mls/hr 09/09/19 17:00 09/09/19 17:26 Sodium Chloride 0.9% 1000 Ml IV 10/09/19 16:59 Not Given .Q20H [facility] Lab/Rad Data: Laboratory Result Diagrams 09/09/19 17:01 09/09/19 17:01 Laboratory Results 09/09/19 09/09/19 Range/Units 17:01 17:01 WBC 5.2 (4.0-10.5) K/mm3 RBC 4.36 (4.1-5.4) M/mm3 Hgb 12.9 (12.0-16.0) gm/dl Hct 40.0 (35-47) % MCV 91.7 (78-100) fl MCH 29.6 (26-32) pg MCHC 32.3 (32-36) g/dl RDW 13.4 (11.5-14.0) % Plt Count 164 (150-450) K/mm3 MPV 10.8 (7.5-11.0) fl Gran % 66.5 H (36.0-66.0) % Eos # (Auto) 0.08 (0-0.5) Absolute Lymphs (auto) 1.23 (1.0-4.6) Absolute Monos (auto) 0.42 (0.0-1.3) Lymphocytes % 23.7 L (24.0-44.0) % Monocytes % 8.1 (0.0-12.0) % Eosinophils % 1.5 (0.00-5.0) % Basophils % 0.2 (0.0-0.4) % Absolute Granulocytes 3.46 (1.4-6.9) Basophils # 0.01 (0-0.4) Sodium 140 (137-145) mmol/L Potassium 4.1 (3.5-5.1) mmol/L Chloride 112 H (98-107) mmol/L Carbon Dioxide 21 L (22-30) mmol/L Anion Gap 11.2 (5-15) MEQ/L BUN 23 H (7-17) mg/dL Creatinine 1.05 H (0.52-1.04) mg/dL Estimated GFR 56.1 ML/MIN Glucose 114 H (74-106) mg/dL Calcium 8.9 (8.4-10.2) mg/dL Total Bilirubin 0.50 (0.2-1.3) mg/dL AST 27 (14-36) U/L ALT 16 (0-35) U/L Alkaline Phosphatase 105 (38-126) U/L NT-Pro-B Natriuret Pep 69.3 (0-900) pg/mL Serum Total Protein 7.3 (6.3-8.2) g/dL Albumin 4.0 (3.5-5.0) g/dL - Progress Progress: improved Air Movement: good Blood Culture(s) Obtained: No Antibiotics given: No Counseled pt/family regarding: lab results, diagnosis, need for follow-up, rad results - Departure Departure Disposition: Home Clinical Impression: Chest pain due to GERD Condition: Stable Critical Care Time: Yes Critical Care Time(excluding separately billable procedures): Critical 30-74 mins Referrals: LLUVIA CHILDERS DO [Primary Care Provider] - Follow Up with PCP/3 days Instructions: Chest Pain (DC) Additional Instructions: Discharge/Care Plan SHANTEGEOVANNY SHERRIE was seen on 09/09/19 in the Emergency Room. The patient was counseled regarding Diagnosis,Lab results, Imaging studies, need for follow up and when to return to the Emergency Room. Prescriptions given: Discharge Note I have spoken with the patient and/or caregivers. I have explained the patient's condition, diagnosis and treatment plan based on the information available to me at this time. I have answered the patient's and/or caregiver's questions and addressed any concerns. The patient and/or caregivers have as good understanding of the patient's diagnosis, condition and treatment plan as can be expected at this point. The vital signs have been stable. The patient's condition is stable and appropriate for discharge from the emergency department. The patient will pursue further outpatient evaluation with the primary care physician or other designated or consulting physician as outlined in the discharge instructions. The patient and/or caregivers are agreeable to this plan of care and follow-up instructions have been explained in detail. The patient and/or caregivers have received these instruction. The patient/and or caregivers are aware that any significant change in condition or worsening of symptoms should prompt an immediate return to this or the closest emergency department or call 911. SHANTEGEOVANNY BALDERAS was seen on 09/09/19 n the Emergency Room. At that time you were treated for an emergent condition, during your visit Laboratory, Radiology and/or other procedures may have been ordered. It is very important that you follow-up with your Primary Care Physician LULVIA CHILDERS DO within the next 24-48 hours to review your Emergency Room visit and the final results of testing that was ordered. Some test results such as Urine Cultures, Blood Cultures, and other cultures if ordered will not be finalized for 24-48 hours. If you do not have a Primary Care Provider please call the medical records department at [phone] ext [phone] to obtain a copy of your results or you may sign into our patient portal to obtain these results by visiting us @ [email or web address] and completing the following steps: 1. Click on the Patient Portal link 2. Click the Patient Self Enrollment Link to complete the enrollment form and entering your 3. Once the enrollment form is completed you will receive an email with a temporary ID and password at the email address you provided. 4. Next choose a user name and password. Your user name must be at least 4 characters long and your password must be at least 4 characters long. 5. Choose a security question from the list and provide your answer to the question. If you already have signed into the Health Portal you may access your Health Care Information 07/09 by the following steps: 1. Login to our website @ [email or web address] 2. Enter your original user name and password. FAQS The [facility] Portal is an online tool that contains your Lab Results, Radiology Reports, Visit History, Discharge Instructions and Health Summary Lab and Radiology Results will not be available for 72 hours on the portal. The Portal is a secure site, passwords are encryted and URLs are re-written so they cannot be copied and pasted. You and authorized family members are the only ones who can access your Portal. Also there is a timeout feature that protects your information if you leave the Portal page open. If you have technical difficulty please use the Contact Us link on the page this will allow you to submit any questions you have regarding the Portal or you may contact the Medical Record Department at [phone] ext [phone].
[2019-09-09] MEDS ORDERED: Sodium Chloride 0.9% 1000 ML 1,000 ML IV SCH (17:00)
[2019-09-09 17:04] LABS: Absolute Neutrophil Ct (ANC) 3.46 (1.4-6.9); BASOPHIL % 0.2 % (0.0-0.4); Basophil (Absolute #) 0.01 (0-0.4); Eosinophil % 1.5 % (0.00-5.0); Eosinophil (Absolute #) 0.08 (0-0.5); Hemoglobin 12.9 gm/dl (12.0-16.0); Lymphocyte (Absolute #) 1.23 (1.0-4.6); Lymphocytes % 23.7 % (24.0-44.0); Mean Cell Volume 91.7 fl (78-100); Mean Corpuscular Hemoglobin 29.6 pg (26-32); Mean Corpuscular Hgb Concent. 32.3 g/dl (32-36); Mean Platelet Volume 10.8 fl (7.5-11.0); Monocyte (Absolute #) 0.42 (0.0-1.3); Monocytes % 8.1 % (0.0-12.0); Neutrophil % 66.5 % (36.0-66.0); Platelet Count 164 K/mm3 (150-450); Red Blood Count 4.36 M/mm3 (4.1-5.4); Red Cell Distribution Width 13.4 % (11.5-14.0); White Blood Count 5.2 K/mm3 (4.0-10.5)
[2019-09-09] MEDS ORDERED: Sodium Chloride 0.9% 1000 ML 0 ML ONE (17:05)
[2019-09-09 17:23] LABS: ANION GAP 11.2 MEQ/L (5-15); BILIRUBIN,TOTAL 0.5 mg/dL (0.2-1.3); Calcium 8.9 mg/dL (8.4-10.2); Creatinine 1 1.05 mg/dL (0.52-1.04); NT PRO BNP 69.3 pg/mL (0-900); Potassium 4.1 mmol/L (3.5-5.1); Total Protein 7.3 g/dL (6.3-8.2)
[2019-09-09 17:34] VITALS: BP 92/68; PULSE 98
[2019-09-09 17:41] VITALS: O2SAT 97
--- NOTE | 2019-09-09 20:09 | XRAY ---
Indication: Cough and short of breath. Comparison: June 07, 2019. Portable chest unchanged again demonstrating right lung fibrosis/scarring, right hilar calcified nodes, and right Port-A-Cath. Heart is not enlarged. Bony thorax intact. No new/acute findings.
== END 2019-09-09 18:03 | disposition home or self-care (01) ==
LOC: ED 16:22
DX: K21.9 Gastro-esophageal reflux disease without esophagitis (principal); R07.89 Other chest pain; R10.13 Epigastric pain; Z79.899 Other long term (current) drug therapy; J44.9 Chronic obstructive pulmonary disease, unspecified; E03.9 Hypothyroidism, unspecified
CPT/HCPCS: 36000; 36415; 71045; 80053; 83880; 84484; 85025; 93005; 93041; 99284; 99291; J1642

== ENCOUNTER 2019-09-29 11:24 | Emergency (ER) | payer MEDICARE ==
--- NOTE | 2019-09-29 11:32 | ERPHSYRPT ---
- History of Present Illness Time Seen by Provider: 09/29/19 11:32 Source: patient Exam Limitations: no limitations Physician History: This is a 64-year-old white female who frequents the emergency department often for similar complaints. Complaints today are dizziness and decreased urine output. Patient states that she had a headache yesterday which has resolved and the dizziness began today. Patient has a history of renal insufficiency and is being followed by tractor mechanic helper for this. Patient has a history of chronic bronchitis, COPD, hypothyroidism, DJD, osteoarthritis, gastroesophageal reflux disease, irritable bowel syndrome, peptic ulcer disease, recurrent urinary tract infections, low potassium and low magnesium as well as anxiety issue. Timing/Duration: today Severity: mild Associated Symptoms: headaches, other (Dizziness), No nausea, No vomiting, No shortness of breath Allergies/Adverse Reactions: sumatriptan [From Imitrex] Allergy (Intermediate, Verified 09/29/19 11:27) Rash codeine Allergy (Mild, Verified 09/29/19 11:27) Rash MAKES SICK nitrofurantoin [From Macrobid] Allergy (Unknown, Verified 09/29/19 11:27) sumatriptan succinate [From Imitrex] Allergy (Verified 09/29/19 11:27) morphine Adverse Reaction (Severe, Verified 09/29/19 11:27) Headache MIGRAINES fentanyl Adverse Reaction (Intermediate, Verified 09/29/19 11:27) Headache hydrocodone bitartrate [From Vicodin] Adverse Reaction (Mild, Verified 09/29/19 11:27) Vomiting hydromorphone [From Dilaudid] Adverse Reaction (Mild, Verified 09/29/19 11:27) pt states makes heache worse. Home Medications: Alprazolam 1 mg [Xanax 1 mg] 1 mg PO TID 02/17/13 [History] Polyethylene Glycol 3350 17 gm [Miralax Powder 17GM PACKET] 34 gm PO BID 11/15/14 [History] Sennosides/Docusate Sodium [Senokot-S Tablet] 1 tab PO DAILY 04/25/15 [History] Promethazine HCl 25 mg [Phenergan 25 mg] 25 mg PO Q4HPRN PRN 05/11/15 [History] Cetirizine HCl/Pseudoephedrine [Zyrtec-D Tablet] 1 each PO DAILY 02/03/16 [History] Aspirin 81 mg PO DAILY 09/11/16 [History] Levothyroxine Sodium 50 Mcg [Synthroid 50 Mcg] 50 mcg PO DAILY 07/06/17 [History] Linaclotide [Linzess] 290 mcg PO DAILY 10/07/17 [History] Rizatriptan Benzoate [Maxalt] 10 mg PO BID PRN PRN 06/23/18 [History] Fluticasone Propionate [Flonase NASAL] 2 spray NS DAILY 01/19/19 [History] Sodium Bicarbonate 650 mg PO DAILY 01/19/19 [History] Phenazopyridine HCl 200 mg [Pyridium 200 mg] 200 mg PO BID PRN 03/20/19 [History] Guaifenesin 600 mg ER [Mucinex 600MG ER Tabs] 600 mg PO DAILY 04/05/19 [History] Sucralfate 1 gm [Carafate 1 GM] 1 g PO ACHS 04/05/19 [History] Hx Tetanus, Diphtheria Vaccination/Date Given: Yes Hx Influenza Vaccination/Date Given: Yes Hx Pneumococcal Vaccination/Date Given: Yes Travel Risk - International Travel Have you traveled outside of the country in past 3 weeks: No - Coronavirus Screening Are you exhibiting any of the following symptoms?: No Close contact with a COVID-19 positive Pt in past 14-21 Days: No - Review of Systems Constitutional: No Symptoms Eyes: No Symptoms Ears, Nose, & Throat: No Symptoms Respiratory: Cough (Chronic) Cardiac: No Symptoms Abdominal/Gastrointestinal: No Symptoms Genitourinary Symptoms: Other (Decreased urine output which is chronic for her) Musculoskeletal: No Symptoms Skin: No Symptoms Neurological: Dizziness, Headache (Began yesterday and has now resolved) Psychological: No Symptoms Endocrine: No Symptoms Hematologic/Lymphatic: No Symptoms Immunological/Allergic: No Symptoms All Other Systems: Reviewed and Negative - Past Medical History Pertinent Past Medical History: Yes Neurological History: No Pertinent History, Migraines ENT History: Cataracts, Other Cardiac History: No Pertinent History Respiratory History: Bronchitis, COPD, Other Endocrine Medical History: Hypothyroidism, Other Musculoskeletal History: Arthritis, Degenerative Disk Disease, Osteoarthritis, Other GI Medical History: GERD, Irritable Bowel, Ulcer, Other History: Other Psycho-Social History: Anxiety Female Reproductive Disorders: Other Other Medical History: Recurrent UTI,urine kidney/bladder problems recurrent. 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 TRACHEA MALASIA - Past Surgical History Past Surgical History: Yes Neuro Surgical History: No Pertinent History Cardiac: No Pertinent History Respiratory: No Pertinent History Gastrointestinal: Bowel Surgery, Cholecystectomy, Colon Resection, Hernia Repair Genitourinary: Other Musculoskeletal: No Pertinent History Female Surgical History: Hysterectomy Other Surgical History: COLONOSCOPIES, EGDs. Total colectomy. FEEDING TUBE FOR 4 YEARS, stretches of bladder and urethra, bowel obstructions x2, lithotripsy. bronch on 1320 - Social History Smoking Status: Never smoker Exposure to second hand smoke: No Alcohol Use: None Drug Use: none Patient Lives Alone: Yes Significant Family History: no pertinent family hx - Nursing Vital Signs Nursing Vital Signs: Initial Vital Signs Temperature 98.9 F 09/29/19 11:24 Pulse Rate 104 H 09/29/19 11:24 Respiratory Rate 20 09/29/19 11:24 Blood Pressure 119/79 09/29/19 11:24 O2 Sat by Pulse Oximetry 96 09/29/19 11:24 Pain Scale Pain Intensity 0 - Physical Exam General Appearance: no apparent distress, alert, anxiety Eye Exam: PERRL/EOMI, eyes nml inspection Ears, Nose, Throat Exam: normal ENT inspection, moist mucous membranes Neck Exam: normal inspection, non-tender, supple, full range of motion Respiratory Exam: normal breath sounds, lungs clear, airway intact, No chest tenderness, No respiratory distress Cardiovascular Exam: regular rate/rhythm, normal heart sounds, normal peripheral pulses Gastrointestinal/Abdomen Exam: soft, normal bowel sounds, No tenderness Pelvic Exam: not done Rectal Exam: not done Back Exam: normal inspection, normal range of motion, No CVA tenderness, No vertebral tenderness Extremity Exam: normal inspection, normal range of motion, pelvis stable Neurologic Exam: alert, 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, cooperative, medical charge entry specialist II-XII nml as tested, normal mood/affect, nml cerebellar function, nml station & gait, sensation nml Skin Exam: normal color, warm, dry Lymphatic Exam: No adenopathy SpO2 Interpretation: normal O2 Delivery: Room Air - Course Nursing assessment & vital signs reviewed: Yes EKG Interpreted by Me: RATE (105), Sinus Tach, Left Carson Deviation, NORMAL INTERVALS, NORMAL QRS, Other (No acute ischemic changes. Comparison EKG 09/09/2019. There is no changes when compared to that EKG) Ordered Tests: Active Orders 24 hr Category Date Time Status IV Insertion STAT Care 09/29/19 12:01 Active CHEST 1 VIEW (PORTABLE) Stat Exams 09/29/19 12:09 Completed HEAD WITHOUT CONTRAST [CT] Stat Exams 09/29/19 12:01 Completed CBC W DIFF Stat Lab 09/29/19 12:23 Completed CMP Stat Lab 09/29/19 12:23 Completed MAGNESIUM Stat Lab 09/29/19 12:23 Completed Taylor Screen Stat Lab 09/29/19 13:20 Completed T4 (Thyroxine) Stat Lab 09/29/19 Completed TSH [TSH, 3RD Generation] Stat Lab 09/29/19 12:45 Completed UA W/RFX UR CULTURE Stat Lab 09/29/19 15:20 Completed Medication Summary Discontinued Medications Generic Name Dose Route Start Last Admin Trade Name Freq PRN Reason Stop Dose Admin Sodium Chloride 1,000 mls @ 999 mls/hr 09/29/19 12:01 09/29/19 13:47 Sodium Chloride 0.9% 1000 Ml IV 09/29/19 13:01 Infused .Q1H1M STA Infusion Sodium Chloride Confirm 09/29/19 12:32 Sodium Chloride 0.9% 1000 Ml Administered 09/29/19 12:33 Dose 1,000 mls @ ud .ROUTE .STK-MED ONE Lab/Rad Data: Laboratory Result Diagrams 09/29/19 12:23 09/29/19 12:23 Laboratory Results 09/29/19 09/29/19 09/29/19 Range/Units Unknown 15:20 13:20 WBC (4.0-10.5) K/mm3 RBC (4.1-5.4) M/mm3 Hgb (12.0-16.0) gm/dl Hct (35-47) % MCV (78-100) fl MCH (26-32) pg MCHC (32-36) g/dl RDW (11.5-14.0) % Plt Count (150-450) K/mm3 MPV (7.5-11.0) fl Gran % (36.0-66.0) % Eos # (Auto) (0-0.5) Absolute Lymphs (auto) (1.0-4.6) Absolute Monos (auto) (0.0-1.3) Lymphocytes % (24.0-44.0) % Monocytes % (0.0-12.0) % Eosinophils % (0.00-5.0) % Basophils % (0.0-0.4) % Absolute Granulocytes (1.4-6.9) Basophils # (0-0.4) Sodium (137-145) mmol/L Potassium (3.5-5.1) mmol/L Chloride (98-107) mmol/L Carbon Dioxide (22-30) mmol/L Anion Gap (5-15) MEQ/L BUN (7-17) mg/dL Creatinine (0.52-1.04) mg/dL Estimated GFR ML/MIN Glucose (74-106) mg/dL Calcium (8.4-10.2) mg/dL Magnesium (1.6-2.3) mg/dL Total Bilirubin (0.2-1.3) mg/dL AST (14-36) U/L ALT (0-35) U/L Alkaline Phosphatase (38-126) U/L Serum Total Protein (6.3-8.2) g/dL Albumin (3.5-5.0) g/dL Thyroxine (T4) 10.5 (5.53-10.96) ug/dL TSH 3rd Generation (0.47-4.68) mIU/L Urine Color YELLOW (YELLOW) Urine Appearance SLIGHTLY CLOUDY (CLEAR) Urine pH 5.0 (5-6) Ur Specific [place] 1.025 (1.005-1.025) Urine Protein NEGATIVE (Negative) Urine Ketones NEGATIVE (NEGATIVE) Urine Blood NEGATIVE (0-5) Aroldo/ul Urine Nitrite NEGATIVE (NEGATIVE) Urine Bilirubin NEGATIVE (NEGATIVE) Urine Urobilinogen NEGATIVE (0-1) mg/dL Ur Leukocyte Esterase NEGATIVE (NEGATIVE) Urine WBC (Auto) 3-5 (0-5) /HPF Urine RBC (Auto) NONE (0-2) /HPF U Hyaline Cast (Auto) 0-2 (0-2) /LPF U Epithel Cells (Auto) RARE (FEW) /HPF Urine Bacteria (Auto) NONE (NEGATIVE) /HPF Urine Mucus (Auto) SLIGHT (NEGATIVE) /HPF Urine Culture Reflexed NO (NO) Urine Glucose NEGATIVE (NEGATIVE) mg/dL Monoscreen (Negative) Influenza Type A Ag NEGATIVE (NEGATIVE) Influenza Type B Ag NEGATIVE (NEGATIVE) RSV (PCR) NEGATIVE (Negative) Group A Strep Antibody NOT DETECTED (NEGATIVE) 09/29/19 09/29/19 09/29/19 Range/Units 13:20 12:45 12:23 WBC (4.0-10.5) K/mm3 RBC (4.1-5.4) M/mm3 Hgb (12.0-16.0) gm/dl Hct (35-47) % MCV (78-100) fl MCH (26-32) pg MCHC (32-36) g/dl RDW (11.5-14.0) % Plt Count (150-450) K/mm3 MPV (7.5-11.0) fl Gran % (36.0-66.0) % Eos # (Auto) (0-0.5) Absolute Lymphs (auto) (1.0-4.6) Absolute Monos (auto) (0.0-1.3) Lymphocytes % (24.0-44.0) % Monocytes % (0.0-12.0) % Eosinophils % (0.00-5.0) % Basophils % (0.0-0.4) % Absolute Granulocytes (1.4-6.9) Basophils # (0-0.4) Sodium 138 (137-145) mmol/L Potassium 3.7 (3.5-5.1) mmol/L Chloride 110 H (98-107) mmol/L Carbon Dioxide 20 L (22-30) mmol/L Anion Gap 11.9 (5-15) MEQ/L BUN 19 H (7-17) mg/dL Creatinine 1.16 H (0.52-1.04) mg/dL Estimated GFR 50.0 ML/MIN Glucose 109 H (74-106) mg/dL Calcium 9.1 (8.4-10.2) mg/dL Magnesium 1.8 (1.6-2.3) mg/dL Total Bilirubin 0.80 (0.2-1.3) mg/dL AST 26 (14-36) U/L ALT 17 (0-35) U/L Alkaline Phosphatase 104 (38-126) U/L Serum Total Protein 7.4 (6.3-8.2) g/dL Albumin 4.1 (3.5-5.0) g/dL Thyroxine (T4) (5.53-10.96) ug/dL TSH 3rd Generation 0.875 (0.47-4.68) mIU/L Urine Color (YELLOW) Urine Appearance (CLEAR) Urine pH (5-6) Ur Specific [place] (1.005-1.025) Urine Protein (Negative) Urine Ketones (NEGATIVE) Urine Blood (0-5) Aroldo/ul Urine Nitrite (NEGATIVE) Urine Bilirubin (NEGATIVE) Urine Urobilinogen (0-1) mg/dL Ur Leukocyte Esterase (NEGATIVE) Urine WBC (Auto) (0-5) /HPF Urine RBC (Auto) (0-2) /HPF U Hyaline Cast (Auto) (0-2) /LPF U Epithel Cells (Auto) (FEW) /HPF Urine Bacteria (Auto) (NEGATIVE) /HPF Urine Mucus (Auto) (NEGATIVE) /HPF Urine Culture Reflexed (NO) Urine Glucose (NEGATIVE) mg/dL Monoscreen NEGATIVE (Negative) Influenza Type A Ag (NEGATIVE) Influenza Type B Ag (NEGATIVE) RSV (PCR) (Negative) Group A Strep Antibody (NEGATIVE) 09/29/19 Range/Units 12:23 WBC 3.5 L (4.0-10.5) K/mm3 RBC 4.16 (4.1-5.4) M/mm3 Hgb 12.5 (12.0-16.0) gm/dl Hct 38.4 (35-47) % MCV 92.3 (78-100) fl MCH 30.0 (26-32) pg MCHC 32.6 (32-36) g/dl RDW 13.2 (11.5-14.0) % Plt Count 179 (150-450) K/mm3 MPV 10.6 (7.5-11.0) fl Gran % 64.4 (36.0-66.0) % Eos # (Auto) 0.06 (0-0.5) Absolute Lymphs (auto) 0.83 L (1.0-4.6) Absolute Monos (auto) 0.33 (0.0-1.3) Lymphocytes % 23.8 L (24.0-44.0) % Monocytes % 9.5 (0.0-12.0) % Eosinophils % 1.7 (0.00-5.0) % Basophils % 0.6 (0.0-0.4) % Absolute Granulocytes 2.25 (1.4-6.9) Basophils # 0.02 (0-0.4) Sodium (137-145) mmol/L Potassium (3.5-5.1) mmol/L Chloride (98-107) mmol/L Carbon Dioxide (22-30) mmol/L Anion Gap (5-15) MEQ/L BUN (7-17) mg/dL Creatinine (0.52-1.04) mg/dL Estimated GFR ML/MIN Glucose (74-106) mg/dL Calcium (8.4-10.2) mg/dL Magnesium (1.6-2.3) mg/dL Total Bilirubin (0.2-1.3) mg/dL AST (14-36) U/L ALT (0-35) U/L Alkaline Phosphatase (38-126) U/L Serum Total Protein (6.3-8.2) g/dL Albumin (3.5-5.0) g/dL Thyroxine (T4) (5.53-10.96) ug/dL TSH 3rd Generation (0.47-4.68) mIU/L Urine Color (YELLOW) Urine Appearance (CLEAR) Urine pH (5-6) Ur Specific [place] (1.005-1.025) Urine Protein (Negative) Urine Ketones (NEGATIVE) Urine Blood (0-5) Aroldo/ul Urine Nitrite (NEGATIVE) Urine Bilirubin (NEGATIVE) Urine Urobilinogen (0-1) mg/dL Ur Leukocyte Esterase (NEGATIVE) Urine WBC (Auto) (0-5) /HPF Urine RBC (Auto) (0-2) /HPF U Hyaline Cast (Auto) (0-2) /LPF U Epithel Cells (Auto) (FEW) /HPF Urine Bacteria (Auto) (NEGATIVE) /HPF Urine Mucus (Auto) (NEGATIVE) /HPF Urine Culture Reflexed (NO) Urine Glucose (NEGATIVE) mg/dL Monoscreen (Negative) Influenza Type A Ag (NEGATIVE) Influenza Type B Ag (NEGATIVE) RSV (PCR) (Negative) Group A Strep Antibody (NEGATIVE) - Progress Progress: improved, re-examined Progress Note: 09/29/19 13:25 Chest x-ray shows no acute pulmonary process. CAT scan of the head shows no acute intracranial abnormality. Counseled pt/family regarding: lab results, diagnosis, need for follow-up - Departure Departure Disposition: Home Clinical Impression: Dizziness Condition: Stable Critical Care Time: No Referrals: LLUVIA CHILDERS DO [Primary Care Provider] - Additional Instructions: drink plenty of fluids. folllow up with your primary doctor and your specialists for further management of your chronic symptoms
[2019-09-29] MEDS ORDERED: Sodium Chloride 0.9% 1000 ML 1,000 ML IV STA (12:01)
[2019-09-29 12:21] LABS: Absolute Neutrophil Ct (ANC) 2.25 (1.4-6.9); BASOPHIL % 0.6 % (0.0-0.4); Basophil (Absolute #) 0.02 (0-0.4); Eosinophil % 1.7 % (0.00-5.0); Eosinophil (Absolute #) 0.06 (0-0.5); Hematocrit 38.4 % (35-47); Hemoglobin 12.5 gm/dl (12.0-16.0); Lymphocyte (Absolute #) 0.83 (1.0-4.6); Lymphocytes % 23.8 % (24.0-44.0); Mean Cell Volume 92.3 fl (78-100); Mean Corpuscular Hgb Concent. 32.6 g/dl (32-36); Mean Platelet Volume 10.6 fl (7.5-11.0); Monocyte (Absolute #) 0.33 (0.0-1.3); Monocytes % 9.5 % (0.0-12.0); Neutrophil % 64.4 % (36.0-66.0); Platelet Count 179 K/mm3 (150-450); Red Blood Count 4.16 M/mm3 (4.1-5.4); Red Cell Distribution Width 13.2 % (11.5-14.0); White Blood Count 3.5 K/mm3 (4.0-10.5)
[2019-09-29] MEDS ORDERED: Sodium Chloride 0.9% 1000 ML 1,000 ML ONE (12:32)
[2019-09-29 12:33] LABS: ALBUMIN 4.1 g/dL (3.5-5.0); ANION GAP 11.9 MEQ/L (5-15); BILIRUBIN,TOTAL 0.8 mg/dL (0.2-1.3); Calcium 9.1 mg/dL (8.4-10.2); Creatinine 1 1.16 mg/dL (0.52-1.04); MAGNESIUM 1.8 mg/dL (1.6-2.3); Potassium 3.7 mmol/L (3.5-5.1); Total Protein 7.4 g/dL (6.3-8.2)
--- NOTE | 2019-09-29 12:49 | XRAY ---
Indication: Cough 1 week. Comparison: September 09, 2019. Portable chest unchanged again demonstrating right midlung fibrosis/scarring, right hilar calcified nodes, and right Port-A-Cath. Remaining heart and lungs normal. No new/acute findings.
--- NOTE | 2019-09-29 12:52 | XRAY ---
Indication: Headache and dizziness 2 days. Multiple contiguous axial images obtained through the head without contrast. Comparison: February 17, 2019. Again normal appearing brain parenchyma, ventricles, and bony calvarium. Visualized paranasal sinuses and mastoid air cells are clear. Impression: Continued normal CT head without contrast exam.
[2019-09-29 14:09] LABS: INFLUENZA A NEGATIVE (NEGATIVE); INFLUENZA B NEGATIVE (NEGATIVE); RESPIRATORY SYNCTIAL VIRUS NEGATIVE (Negative)
[2019-09-29 15:22] VITALS: BP 108/80; PULSE 80
[2019-09-29 15:32] LABS: Appearance SLIGHTLY CLOUDY (CLEAR); Bilirubin NEGATIVE (NEGATIVE); Blood NEGATIVE Ery/ul (0-5); Epithelial Cells RARE /HPF (FEW); Glucose NEGATIVE (NEGATIVE); Hyaline Casts 0-2 /LPF (0-2); Ketones NEGATIVE (NEGATIVE); Leukocyte Esterase NEGATIVE (NEGATIVE); Mucus SLIGHT /HPF (NEGATIVE); Nitrite NEGATIVE (NEGATIVE); Protein,Urine Dip NEGATIVE (Negative); Specific Gravity 1.025 (1.005-1.025); Urobilinogen NEGATIVE mg/dL (0-1)
[2019-09-29 16:02] VITALS: O2SAT 97
== END 2019-09-29 16:00 | disposition home or self-care (01) ==
LOC: ED 11:24
DX: R42 Dizziness and giddiness (principal); J44.9 Chronic obstructive pulmonary disease, unspecified; E03.9 Hypothyroidism, unspecified; K21.9 Gastro-esophageal reflux disease without esophagitis; K58.9 Irritable bowel syndrome, unspecified
CPT/HCPCS: 36000; 36415; 70450; 71045; 80053; 81001; 83735; 84436; 84443; 85025; 86308; 87631; 87651; 96360; 96361; 96374; 99284; J1642

== ENCOUNTER 2019-12-04 10:49 | Emergency (ER) | payer MEDICARE ==
[2019-12-04] MEDS ORDERED: Sodium Chloride 0.9% 1000 ML 1,000 ML IV STA (10:55)
[2019-12-04] MEDS ORDERED: Sodium Chloride 0.9% 1000 ML 1,000 ML ONE (11:10)
--- NOTE | 2019-12-04 11:11 | ERPHSYRPT ---
- History of Present Illness Time Seen by Provider: 12/04/19 11:00 Source: patient Exam Limitations: no limitations Patient Subjective Stated Complaint: pt here for sob for over a week now, was seen at the drs office and placed on nebs and inhaler, she has been taking her nebulaizers at home and well as O2 Triage Nursing Assessment: pt alert, arrived per , has dry hacky cough, hyperventilating, encouraged to slow breather down, face mask on, o2 at 2 liters applied, Physician History: Patient has had a cough for 1 week with dyspnea. Patient was evaluated by her physician 5 days ago who did a COVID-19 test which was negative. Patient was placed on Tessalon Perles, nebulizer and inhaler with an injection of steroid intramuscularly at the doctor's office, but no antibiotics, without any relief of her symptoms Timing/Duration: week(s) (1) Cough Quality/Degree: moderate Possible Cause: occasional episodes Modifying Factors: Improves With: nothing Associated Symptoms: cough, shortness of breath, wheezing, No fever, No chills, No chest pain/soreness, No dizziness, No earache, No facial pain, No headache, No lightheadedness, No muscle aches, No nasal congestion, No nasal drainage, No sinus infection, No sore throat Allergies/Adverse Reactions: sumatriptan [From Imitrex] Allergy (Intermediate, Verified 11/10/19 13:19) Rash codeine Allergy (Mild, Verified 11/10/19 13:19) Rash MAKES SICK nitrofurantoin [From Macrobid] Allergy (Unknown, Verified 11/10/19 13:19) sumatriptan succinate [From Imitrex] Allergy (Verified 11/10/19 13:19) morphine Adverse Reaction (Severe, Verified 11/10/19 13:19) Headache MIGRAINES fentanyl Adverse Reaction (Intermediate, Verified 11/10/19 13:19) Headache hydrocodone bitartrate [From Vicodin] Adverse Reaction (Mild, Verified 11/10/19 13:19) Vomiting hydromorphone [From Dilaudid] Adverse Reaction (Mild, Verified 11/10/19 13:19) pt states makes heache worse. Home Medications: Alprazolam 1 mg [Xanax 1 mg] 1 mg PO TID 02/17/13 [History] Polyethylene Glycol 3350 17 gm [Miralax Powder 17GM PACKET] 34 gm PO BID 11/15/14 [History] Sennosides/Docusate Sodium [Senokot-S Tablet] 1 tab PO DAILY 04/25/15 [History] Promethazine HCl 25 mg [Phenergan 25 mg] 25 mg PO Q4HPRN PRN 05/11/15 [History] Cetirizine HCl/Pseudoephedrine [Zyrtec-D Tablet] 1 each PO DAILY 02/03/16 [History] Aspirin 81 mg PO DAILY 09/11/16 [History] Levothyroxine Sodium 50 Mcg [Synthroid 50 Mcg] 50 mcg PO DAILY 07/06/17 [History] Linaclotide [Linzess] 290 mcg PO DAILY 10/07/17 [History] Rizatriptan Benzoate [Maxalt] 10 mg PO BID PRN PRN 06/23/18 [History] Fluticasone Propionate [Flonase NASAL] 2 spray NS DAILY 01/19/19 [History] Sodium Bicarbonate 650 mg PO DAILY 01/19/19 [History] Phenazopyridine HCl 200 mg [Pyridium 200 mg] 200 mg PO BID PRN 03/20/19 [History] Guaifenesin 600 mg ER [Mucinex 600MG ER Tabs] 600 mg PO DAILY 04/05/19 [History] Sucralfate 1 gm [Carafate 1 GM] 1 g PO ACHS 04/05/19 [History] Benzonatate [Tessalon Perle] 100 mg PO UD 11/10/19 [History] Hx Tetanus, Diphtheria Vaccination/Date Given: Yes Hx Influenza Vaccination/Date Given: Yes Hx Pneumococcal Vaccination/Date Given: Yes Immunizations Up to Date: Yes Travel Risk - International Travel Have you traveled outside of the country in past 3 weeks: No - Coronavirus Screening Are you exhibiting any of the following symptoms?: No Symptoms: Cough: New Onset, Shortness of Breath Close contact with a COVID-19 positive Pt in past 14-21 Days: No - Review of Systems Constitutional: No Fever, No Chills Eyes: No Symptoms, No Discharge, No Eye Pain, No Eye Redness Ears, Nose, & Throat: No Symptoms, No Nose Congestion, No Painful Swallowing Respiratory: Cough, Dyspnea, Wheezing Cardiac: No Chest Pain, No Edema, No Syncope Abdominal/Gastrointestinal: No Abdominal Pain, No Nausea, No Vomiting, No Diarrhea Genitourinary Symptoms: No Dysuria, No Hematuria, No Flank Pain Musculoskeletal: No Back Pain, No Neck Pain Skin: No Rash Neurological: No Dizziness, No Focal Weakness, No Sensory Changes Psychological: No Symptoms Endocrine: No Symptoms, No Polyuria Hematologic/Lymphatic: No Easy Bleeding, No Easy Bruising All Other Systems: Reviewed and Negative - Past Medical History Pertinent Past Medical History: Yes Neurological History: No Pertinent History, Migraines ENT History: Cataracts, Other Cardiac History: No Pertinent History Respiratory History: Bronchitis, COPD, Other Endocrine Medical History: Hypothyroidism, Other Musculoskeletal History: Arthritis, Degenerative Disk Disease, Osteoarthritis, Other GI Medical History: GERD, Irritable Bowel, Ulcer, Other History: Other Psycho-Social History: Anxiety Female Reproductive Disorders: Other Other Medical History: Recurrent UTI,urine kidney/bladder problems recurrent. 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 TRACHEA MALASIA - Past Surgical History Past Surgical History: Yes Neuro Surgical History: No Pertinent History Cardiac: No Pertinent History Respiratory: No Pertinent History Gastrointestinal: Bowel Surgery, Cholecystectomy, Colon Resection, Hernia Repair Genitourinary: Other Musculoskeletal: No Pertinent History Female Surgical History: Hysterectomy Other Surgical History: COLONOSCOPIES, EGDs. Total colectomy. FEEDING TUBE FOR 4 YEARS, stretches of bladder and urethra, bowel obstructions x2, lithotripsy. bronch on 1320 - Social History Smoking Status: Never smoker Exposure to second hand smoke: No Alcohol Use: None Drug Use: none Patient Lives Alone: Yes Significant Family History: no pertinent family hx - Female History Hx Last Menstrual Period: post - Nursing Vital Signs Nursing Vital Signs: Initial Vital Signs Temperature 97.9 F 12/04/19 10:50 Pulse Rate 108 H 12/04/19 10:50 Respiratory Rate 22 12/04/19 10:50 Blood Pressure 120/77 12/04/19 10:50 O2 Sat by Pulse Oximetry 100 12/04/19 10:50 Pain Scale Pain Intensity 4 - Physical Exam General Appearance: no apparent distress, alert Eye Exam: PERRL/EOMI, eyes nml inspection, No scleral icterus Ears, Nose, Throat Exam: normal ENT inspection, TMs normal, pharynx normal, moist mucous membranes Neck Exam: normal inspection, non-tender, supple, full range of motion Respiratory Exam: normal breath sounds, lungs clear, airway intact, No respiratory distress, No diminished breath sounds, No accessory muscle use, No prolonged expirations, No crackles/rales Cardiovascular Exam: regular rate/rhythm, normal heart sounds, normal peripheral pulses, capillary refill <2 sec Gastrointestinal/Abdomen Exam: soft, No tenderness Back Exam: normal inspection, No CVA tenderness, No vertebral tenderness Extremity Exam: normal inspection, normal range of motion Neurologic Exam: alert, 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, cooperative, 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-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 nml as tested, normal mood/affect, sensation nml, No motor deficits, No sensory deficit Skin Exam: normal color, warm, dry, No rash Lymphatic Exam: No adenopathy SpO2 Interpretation: normal SpO2: 100 O2 Delivery: Nasal Cannula - Course Nursing assessment & vital signs reviewed: Yes EKG Interpreted by Me: RATE, Sinus Rhythm, Left Eleele Deviation, NORMAL INTERVALS, NORMAL QRS, NORMAL ST-T, Other (Normal QTc interval; no appreciable change in comparison to EKG from 09/29/2019) - Radiology Exams Chest X-ray Interpretation: Reviewed by me, Other (Per radiologist interpretation: New hazy left base infiltrate versus atelectasis with stable right midlung fibrosis/scarring, right hilar calcified nodes, and right Port-A-Cath. Remaining heart, lungs and bony thorax are unremarkable in comparison to chest x-ray from 05/30/2019) Ordered Tests: Active Orders 24 hr Category Date Time Status CO2 Monitoring STAT Care 12/04/19 10:55 Active Mechanical Oxidizer STAT Care 12/04/19 10:56 Active EKG-ER Only STAT Care 12/04/19 10:55 Active IV Insertion STAT Care 12/04/19 10:55 Active CHEST 1 VIEW (PORTABLE) Stat Exams 12/04/19 11:18 Completed BLOOD CULTURE Stat Lab 12/04/19 11:25 Received CBC W DIFF Stat Lab 12/04/19 10:55 Completed CMP Stat Lab 12/04/19 10:55 Completed CULTURE,URINE Stat Lab 12/04/19 11:39 Received Lactic Acid Stat Lab 12/04/19 11:20 Completed MAGNESIUM Stat Lab 10/19/20 10:58 Completed NT PRO BNP Stat Lab 12/04/19 10:55 Completed PROTIME WITH INR Stat Lab 12/04/19 10:55 Completed PTT Stat Lab 12/04/19 10:55 Completed TROPONIN Q3H Lab 12/04/19 11:00 Completed TROPONIN Q3H Lab 12/04/19 14:15 Received TROPONIN Q3H Lab 12/04/19 17:00 Ordered TROPONIN Q3H Lab 12/04/19 20:00 Ordered TROPONIN Q3H Lab 12/04/19 23:00 Ordered UA W/RFX UR CULTURE Stat Lab 12/04/19 11:39 Completed VENOUS BLOOD GAS Stat Lab 12/04/19 11:20 Completed Medication Summary Discontinued Medications Generic Name Dose Route Start Last Admin Trade Name Freq PRN Reason Stop Dose Admin Azithromycin 500 mg 12/04/19 11:52 12/04/19 12:03 Zithromax 250 Mg Tablet PO 12/04/19 11:53 500 mg STAT ONE Administration Azithromycin Confirm 12/04/19 12:00 Zithromax 250 Mg Tablet Administered 12/04/19 12:01 Dose 500 mg .ROUTE .STK-MED ONE Sodium Chloride 1,000 mls @ 999 mls/hr 12/04/19 10:55 12/04/19 12:55 Sodium Chloride 0.9% 1000 Ml IV 12/04/19 11:55 Infused .Q1H1M STA Infusion Sodium Chloride Confirm 12/04/19 11:10 Sodium Chloride 0.9% 1000 Ml Administered 12/04/19 11:11 Dose 1,000 mls @ ud .ROUTE .STK-MED ONE Ceftriaxone Sodium/Dextrose 1 g in 50 mls @ 100 mls/hr 12/04/19 11:52 12/04/19 12:56 Rocephin 1 Gm-D5w 50 Ml Bag IV 12/04/19 12:21 Infused STAT STA Infusion Ceftriaxone Sodium/Dextrose Confirm 12/04/19 12:00 Rocephin 1 Gm-D5w 50 Ml Bag Administered 12/04/19 12:01 Dose 1 g in 50 mls @ ud IV .STK-MED ONE Lab/Rad Data: Laboratory Result Diagrams 12/04/19 10:55 12/04/19 10:55 Laboratory Results 12/04/19 12/04/19 12/04/19 Range/Units 12:09 11:39 11:20 WBC (4.0-10.5) K/mm3 RBC (4.1-5.4) M/mm3 Hgb (12.0-16.0) gm/dl Hct (35-47) % MCV (78-100) fl MCH (26-32) pg MCHC (32-36) g/dl RDW (11.5-14.0) % Plt Count (150-450) K/mm3 MPV (7.5-11.0) fl Gran % (36.0-66.0) % Eos # (Auto) (0-0.5) Absolute Lymphs (auto) (1.0-4.6) Absolute Monos (auto) (0.0-1.3) Lymphocytes % (24.0-44.0) % Monocytes % (0.0-12.0) % Eosinophils % (0.00-5.0) % Basophils % (0.0-0.4) % Absolute Granulocytes (1.4-6.9) Basophils # (0-0.4) PT (9.95-12.35) SECONDS INR (0.8-3.0) APTT (25.3-37.0) SECONDS pO2/FiO2 Ratio 21.0 % VBG pH 7.34 (7.32-7.42) VBG pCO2 at Pat Temp 32 L (42-55) mm/Hg VBG pO2 at Pat Temp 42 H (25-40) mm/Hg VBG HCO3 17.3 L (22-28) meq/L VBG O2 Sat (Poppy) 77.0 L (95-100) VBG Base Excess -7.4 L (-2.0-2.0) VBG Hemoglobin 13.4 VBG Carboxyhemoglobin 4.7 (0.0-6.9) % T HGB POC Potassium 4.4 (3.5-5.1) Sodium (137-145) mmol/L Potassium (3.5-5.1) mmol/L Chloride (98-107) mmol/L Carbon Dioxide (22-30) mmol/L Anion Gap (5-15) MEQ/L BUN (7-17) mg/dL Creatinine (0.52-1.04) mg/dL Estimated GFR ML/MIN Glucose (74-106) mg/dL Lactic Acid 1.5 (0.4-2.0) Calcium (8.4-10.2) mg/dL Magnesium (1.6-2.3) mg/dL Total Bilirubin (0.2-1.3) mg/dL AST (14-36) U/L ALT (0-35) U/L Alkaline Phosphatase (38-126) U/L Troponin I (0.000-0.034) ng/mL NT-Pro-B Natriuret Pep (0-900) pg/mL Serum Total Protein (6.3-8.2) g/dL Albumin (3.5-5.0) g/dL Urine Color WICHO (YELLOW) Urine Appearance SLIGHTLY CLOUDY (CLEAR) Urine pH 5.0 (5-6) Ur Specific Mcclure 1.017 (1.005-1.025) Urine Protein NEGATIVE (Negative) Urine Ketones NEGATIVE (NEGATIVE) Urine Blood NEGATIVE (0-5) Aroldo/ul Urine Nitrite POSITIVE (NEGATIVE) Urine Bilirubin NEGATIVE (NEGATIVE) Urine Urobilinogen 4 (0-1) mg/dL Ur Leukocyte Esterase NEGATIVE (NEGATIVE) Urine WBC (Auto) 11-15 (0-5) /HPF Urine RBC (Auto) 0-2 (0-2) /HPF U Hyaline Cast (Auto) 6-10 (0-2) /LPF U Epithel Cells (Auto) RARE (FEW) /HPF Urine Bacteria (Auto) FEW (NEGATIVE) /HPF Calcium Oxalate Crystal 26-50 (NEGATIVE) /HPF Urine Mucus (Auto) SLIGHT (NEGATIVE) /HPF Urine Culture Reflexed YES (NO) Urine Glucose NEGATIVE (NEGATIVE) mg/dL SARS-CoV-2 (PCR) NEGATIVE (NEGATIVE) 12/04/19 12/04/19 12/04/19 Range/Units 11:00 10:58 10:55 WBC (4.0-10.5) K/mm3 RBC (4.1-5.4) M/mm3 Hgb (12.0-16.0) gm/dl Hct (35-47) % MCV (78-100) fl MCH (26-32) pg MCHC (32-36) g/dl RDW (11.5-14.0) % Plt Count (150-450) K/mm3 MPV (7.5-11.0) fl Gran % (36.0-66.0) % Eos # (Auto) (0-0.5) Absolute Lymphs (auto) (1.0-4.6) Absolute Monos (auto) (0.0-1.3) Lymphocytes % (24.0-44.0) % Monocytes % (0.0-12.0) % Eosinophils % (0.00-5.0) % Basophils % (0.0-0.4) % Absolute Granulocytes (1.4-6.9) Basophils # (0-0.4) PT 11.3 (9.95-12.35) SECONDS INR 1.00 (0.8-3.0) APTT 28.8 (25.3-37.0) SECONDS pO2/FiO2 Ratio % VBG pH (7.32-7.42) VBG pCO2 at Pat Temp (42-55) mm/Hg VBG pO2 at Pat Temp (25-40) mm/Hg VBG HCO3 (22-28) meq/L VBG O2 Sat (Poppy) (95-100) VBG Base Excess (-2.0-2.0) VBG Hemoglobin VBG Carboxyhemoglobin (0.0-6.9) % T HGB POC Potassium (3.5-5.1) Sodium (137-145) mmol/L Potassium (3.5-5.1) mmol/L Chloride (98-107) mmol/L Carbon Dioxide (22-30) mmol/L Anion Gap (5-15) MEQ/L BUN (7-17) mg/dL Creatinine (0.52-1.04) mg/dL Estimated GFR ML/MIN Glucose (74-106) mg/dL Lactic Acid (0.4-2.0) Calcium (8.4-10.2) mg/dL Magnesium 2.0 (1.6-2.3) mg/dL Total Bilirubin (0.2-1.3) mg/dL AST (14-36) U/L ALT (0-35) U/L Alkaline Phosphatase (38-126) U/L Troponin I < 0.012 (0.000-0.034) ng/mL NT-Pro-B Natriuret Pep (0-900) pg/mL Serum Total Protein (6.3-8.2) g/dL Albumin (3.5-5.0) g/dL Urine Color (YELLOW) Urine Appearance (CLEAR) Urine pH (5-6) Ur Specific Mcclure (1.005-1.025) Urine Protein (Negative) Urine Ketones (NEGATIVE) Urine Blood (0-5) Aroldo/ul Urine Nitrite (NEGATIVE) Urine Bilirubin (NEGATIVE) Urine Urobilinogen (0-1) mg/dL Ur Leukocyte Esterase (NEGATIVE) Urine WBC (Auto) (0-5) /HPF Urine RBC (Auto) (0-2) /HPF U Hyaline Cast (Auto) (0-2) /LPF U Epithel Cells (Auto) (FEW) /HPF Urine Bacteria (Auto) (NEGATIVE) /HPF Calcium Oxalate Crystal (NEGATIVE) /HPF Urine Mucus (Auto) (NEGATIVE) /HPF Urine Culture Reflexed (NO) Urine Glucose (NEGATIVE) mg/dL SARS-CoV-2 (PCR) (NEGATIVE) 12/04/19 12/04/19 Range/Units 10:55 10:55 WBC 4.2 (4.0-10.5) K/mm3 RBC 4.46 (4.1-5.4) M/mm3 Hgb 12.7 (12.0-16.0) gm/dl Hct 39.8 (35-47) % MCV 89.2 (78-100) fl MCH 28.5 (26-32) pg MCHC 31.9 L (32-36) g/dl RDW 13.8 (11.5-14.0) % Plt Count 193 (150-450) K/mm3 MPV 11.2 H (7.5-11.0) fl Gran % 73.1 H (36.0-66.0) % Eos # (Auto) 0.10 (0-0.5) Absolute Lymphs (auto) 0.71 L (1.0-4.6) Absolute Monos (auto) 0.29 (0.0-1.3) Lymphocytes % 17.0 L (24.0-44.0) % Monocytes % 7.0 (0.0-12.0) % Eosinophils % 2.4 (0.00-5.0) % Basophils % 0.5 (0.0-0.4) % Absolute Granulocytes 3.05 (1.4-6.9) Basophils # 0.02 (0-0.4) PT (9.95-12.35) SECONDS INR (0.8-3.0) APTT (25.3-37.0) SECONDS pO2/FiO2 Ratio % VBG pH (7.32-7.42) VBG pCO2 at Pat Temp (42-55) mm/Hg VBG pO2 at Pat Temp (25-40) mm/Hg VBG HCO3 (22-28) meq/L VBG O2 Sat (Poppy) (95-100) VBG Base Excess (-2.0-2.0) VBG Hemoglobin VBG Carboxyhemoglobin (0.0-6.9) % T HGB POC Potassium (3.5-5.1) Sodium 136 L (137-145) mmol/L Potassium 4.5 (3.5-5.1) mmol/L Chloride 112 H (98-107) mmol/L Carbon Dioxide 15 L* (22-30) mmol/L Anion Gap 12.8 (5-15) MEQ/L BUN 26 H (7-17) mg/dL Creatinine 1.32 H (0.52-1.04) mg/dL Estimated GFR 43.1 ML/MIN Glucose 118 H (74-106) mg/dL Lactic Acid (0.4-2.0) Calcium 9.3 (8.4-10.2) mg/dL Magnesium (1.6-2.3) mg/dL Total Bilirubin 0.50 (0.2-1.3) mg/dL AST 23 (14-36) U/L ALT 14 (0-35) U/L Alkaline Phosphatase 136 H (38-126) U/L Troponin I (0.000-0.034) ng/mL NT-Pro-B Natriuret Pep 33.7 (0-900) pg/mL Serum Total Protein 8.0 (6.3-8.2) g/dL Albumin 4.5 (3.5-5.0) g/dL Urine Color (YELLOW) Urine Appearance (CLEAR) Urine pH (5-6) Ur Specific Mcclure (1.005-1.025) Urine Protein (Negative) Urine Ketones (NEGATIVE) Urine Blood (0-5) Aroldo/ul Urine Nitrite (NEGATIVE) Urine Bilirubin (NEGATIVE) Urine Urobilinogen (0-1) mg/dL Ur Leukocyte Esterase (NEGATIVE) Urine WBC (Auto) (0-5) /HPF Urine RBC (Auto) (0-2) /HPF U Hyaline Cast (Auto) (0-2) /LPF U Epithel Cells (Auto) (FEW) /HPF Urine Bacteria (Auto) (NEGATIVE) /HPF Calcium Oxalate Crystal (NEGATIVE) /HPF Urine Mucus (Auto) (NEGATIVE) /HPF Urine Culture Reflexed (NO) Urine Glucose (NEGATIVE) mg/dL SARS-CoV-2 (PCR) (NEGATIVE) Negative SARS-CoV-2 and ALLIE on 11/27/2019 - Progress Progress: re-examined (13:20: patient doing well, not requiring any oxygen support and maintaining SPO2 normal range on her own and in no type of respiratory distress or tachypnea) Air Movement: good Progress Note: 12/04/19 12:28 Patient's tachycardia has resolved after IV hydration and patient is hemodynamically good condition, taking away the oxygen she is 95% on room air 12/04/19 13:34 Lab called and states it may be another hour before the rapid COVID-19 test is returned as it is needed to be repeated 12/04/19 14:28 Discussed the patient's results and she would prefer to be treated at home since she has a nebulizer at home and do outpatient antibiotics Blood Culture(s) Obtained: Yes Antibiotics given: Yes Discussed with : Jodie (At 14: 30, discussed the patient with Dr. Hidalgo, patient's physician. Dr. Perry states that is up to the patient's choice if she wants to be admitted or discharged home. I notified Dr. Perry that the patient preferred to be discharged home follow-up as an outpatient, so we decided on doxava) Will see patient in: office Counseled pt/family regarding: lab results, diagnosis, need for follow-up, rad results - Departure Departure Disposition: Home Clinical Impression: Acute on chronic renal insufficiency LLL pneumonia Qualifiers: Pneumonia type: due to unspecified organism Qualified Code(s): J18.9 - Pn eumonia, unspecified organism UTI (urinary tract infection) Qualifiers: Urinary tract infection type: site unspecified Hematuria presence: without hematuria Qualified Code(s): N39.0 - Urinary tract infection, site not specified Condition: Good Critical Care Time: No Referrals: LLUVIA PERRY, [Primary Care Provider] - Follow Up with PCP/3 days Instructions: Shortness of Breath (Dyspnea) (DC), Pneumonia, Adult (DC), Acute Kidney Injury (DC), Urinary Tract Infection, Adult (DC) Additional Instructions: Return immediately back to the emergency room if you have any increasing shortness of breath, new chest pain, new coughing up blood, any fever greater than 101, new back pain, new diarrhea, concerning signs or symptoms that were not present at today's emergency room visit for immediate reevaluation in the emergency department Prescriptions: Doxycycline Hyclate 100 mg [Vibramycin 100 MG] 100 mg PO BID #20 tab
[2019-12-04 11:28] LABS: Lactic Acid 1.5 (0.4-2.0); VBG BASE EXCESS -7.4 (-2.0-2.0); VBG CARBOXYHEMOGLOBIN 4.7 % T HGB (0.0-6.9); VBG HCO3- 17.3 meq/L (22-28); VBG HEMOGLOBIN 13.4; VBG POTASSIUM 4.4 (3.5-5.1); VBG pH 7.34 (7.32-7.42)
[2019-12-04 11:36] LABS: Absolute Neutrophil Ct (ANC) 3.05 (1.4-6.9); BASOPHIL % 0.5 % (0.0-0.4); Basophil (Absolute #) 0.02 (0-0.4); Eosinophil % 2.4 % (0.00-5.0); Hematocrit 39.8 % (35-47); Hemoglobin 12.7 gm/dl (12.0-16.0); Lymphocyte (Absolute #) 0.71 (1.0-4.6); Mean Cell Volume 89.2 fl (78-100); Mean Corpuscular Hemoglobin 28.5 pg (26-32); Mean Corpuscular Hgb Concent. 31.9 g/dl (32-36); Mean Platelet Volume 11.2 fl (7.5-11.0); Monocyte (Absolute #) 0.29 (0.0-1.3); Neutrophil % 73.1 % (36.0-66.0); Platelet Count 193 K/mm3 (150-450); Red Blood Count 4.46 M/mm3 (4.1-5.4); Red Cell Distribution Width 13.8 % (11.5-14.0); White Blood Count 4.2 K/mm3 (4.0-10.5)
[2019-12-04 11:43] LABS: PROTIME 11.3 SECONDS (9.95-12.35)
--- NOTE | 2019-12-04 11:44 | XRAY ---
Indication: Short of breath. Dyspnea. Comparison: May 30, 2019. Portable chest demonstrates new hazy left base infiltrate versus atelectasis with stable right midlung fibrosis/scarring, right hilar calcified nodes, and right Port-A-Cath. Remaining heart, lungs, and bony thorax unremarkable.
[2019-12-04 11:46] LABS: PTT 28.8 SECONDS (25.3-37.0)
[2019-12-04] MEDS ORDERED: ROCEPHIN 1 Gm-D5w 50 ml Bag** 1 G/50 ML IVPB IV STA (11:52)
[2019-12-04] MEDS ORDERED: Zithromax 250 MG TABLET PO ONE (11:52)
[2019-12-04 11:56] LABS: ALBUMIN 4.5 g/dL (3.5-5.0); ANION GAP 12.8 MEQ/L (5-15); BILIRUBIN,TOTAL 0.5 mg/dL (0.2-1.3); Calcium 9.3 mg/dL (8.4-10.2); Creatinine 1 1.32 mg/dL (0.52-1.04); EST GLOMERULAR FILTRATION RATE 43.1 ML/MIN; NT PRO BNP 33.7 pg/mL (0-900); Potassium 4.5 mmol/L (3.5-5.1)
[2019-12-04] MEDS ORDERED: Zithromax 250 MG TABLET ONE (12:00)
[2019-12-04] MEDS ORDERED: ROCEPHIN 1 Gm-D5w 50 ml Bag** 1 G/50 ML IVPB IV ONE (12:00)
[2019-12-04 12:46] LABS: Appearance SLIGHTLY CLOUDY (CLEAR); Bacteria FEW /HPF (NEGATIVE); Bilirubin NEGATIVE (NEGATIVE); Blood NEGATIVE Ery/ul (0-5); Calcium Oxalate Crystals 26-50 /HPF (NEGATIVE); Epithelial Cells RARE /HPF (FEW); Glucose NEGATIVE (NEGATIVE); Ketones NEGATIVE (NEGATIVE); Leukocyte Esterase NEGATIVE (NEGATIVE); Mucus SLIGHT /HPF (NEGATIVE); Nitrite POSITIVE (NEGATIVE); Protein,Urine Dip NEGATIVE (Negative); RBC 0-2 /HPF (0-2); Specific Gravity 1.017 (1.005-1.025); Urobilinogen 4 mg/dL (0-1)
[2019-12-04 13:44] VITALS: O2SAT 100
[2019-12-04 14:52] VITALS: BP 97/67; PULSE 78
== END 2019-12-04 14:54 | disposition home or self-care (01) ==
LOC: ED 10:49
DX: R06.00 Dyspnea, unspecified (principal); N18.9 Chronic kidney disease, unspecified; N28.9 Disorder of kidney and ureter, unspecified; J18.1 Lobar pneumonia, unspecified organism; N39.0 Urinary tract infection, site not specified
CPT/HCPCS: 36000; 36415; 71045; 80053; 81001; 82805; 83605; 83735; 83880; 84484; 85025; 85610; 85730; 87040; 87086; 93005; 93041; 96360; 96365; 96374; 99285; U0003; J0696; J1642; A9270-GY

== ENCOUNTER 2020-01-14 14:03 | Emergency (ER) | payer MEDICARE ==
[2020-01-14] MEDS ORDERED: DUONEB 0.5-3 MG/3 ml Neb IH ONE ×2 (14:20→14:31)
[2020-01-14] MEDS ORDERED: solu-MEDROL 125 MG IV ONE (14:20)
[2020-01-14] MEDS ORDERED: BABY ASPIRIN 81 MG CHEW PO ONE (14:21)
[2020-01-14] MEDS ORDERED: solu-MEDROL 125 MG ONE (14:24)
[2020-01-14] MEDS ORDERED: BABY ASPIRIN 81 MG CHEW ONE (14:24)
[2020-01-14] MEDS ORDERED: HYDROCODONE-ACETAMIN 2.5-108/5 ML SOLUTION PO STA (14:32)
[2020-01-14] MEDS ORDERED: HYDROCODONE-ACETAMIN 2.5-108/5 ML SOLUTION ONE ×2 (14:43→14:47)
[2020-01-14 14:47] LABS: Hematocrit 39.6 % (35-47); Hemoglobin 12.7 gm/dl (12.0-16.0); Mean Corpuscular Hemoglobin 28.5 pg (26-32); Mean Corpuscular Hgb Concent. 32.1 g/dl (32-36); Mean Platelet Volume 11.1 fl (7.5-11.0); Platelet Count 211 K/mm3 (150-450); Red Blood Count 4.45 M/mm3 (4.1-5.4); Red Cell Distribution Width 14.8 % (11.5-14.0); White Blood Count 11.7 K/mm3 (4.0-10.5)
[2020-01-14 15:15] LABS: ALBUMIN 4.2 g/dL (3.5-5.0); ANION GAP 14.4 MEQ/L (5-15); BILIRUBIN,TOTAL 0.5 mg/dL (0.2-1.3); Calcium 9.4 mg/dL (8.4-10.2); Creatinine 1 1.22 mg/dL (0.52-1.04); EST GLOMERULAR FILTRATION RATE 47.2 ML/MIN; MAGNESIUM 1.7 mg/dL (1.6-2.3); NT PRO BNP 79.3 pg/mL (0-900); Potassium 4.4 mmol/L (3.5-5.1); Total Protein 7.7 g/dL (6.3-8.2)
[2020-01-14 15:38] LABS: BAND 2 % (0.0-2.0); Lymphocytes 10 % (24-44); Monocyte 1 % (0.0-12.0); Neutrophils 87 % (36.0-66.0); Platelet Estimate NORMAL (NORMAL); Total Cells Counted 100; Toxic Granulation 2+
[2020-01-14] MEDS ORDERED: Zithromax 500 MG/ 250 ML NaCl Premix 500 MG/250 ML IVPB IV STA (15:56)
[2020-01-14] MEDS ORDERED: ROCEPHIN 1 Gm-D5w 50 ml Bag** 1 G/50 ML IVPB IV STA (15:56)
[2020-01-14] MEDS ORDERED: ROCEPHIN 1 Gm-D5w 50 ml Bag** 1 G/50 ML IVPB IV ONE (16:10)
--- NOTE | 2020-01-14 16:19 | ERPHSYRPT ---
- History of Present Illness Time Seen by Provider: 01/14/20 14:14 Source: patient Exam Limitations: no limitations Patient Subjective Stated Complaint: SOB Triage Nursing Assessment: Patient brought back to ED via w/c and transferred self to bed. Patient A+O X3. Patient's skin pink, warm and dry. Patient complains of cough and SOB that has increased over two weeks. Patient complains of throat ,back and chest pain 5/10. Patient states she has a non productive cough with thin yellow sputum. Lungs clear a/p ashley. Patient denies fever. Physician History: 64 years old female with multiple medical problems including chronic respiratory failure on 2 L oxygen from COPD with baseline dyspnea presented in the ER with 2 weeks history of progressively worsening rectal dry cough of clear to yellow's thin sputum. Patient has been seen by her database coordinator Dr. Santiago and has been on steroid and antibiotics but her cough wheezing is not going away. Patient reports mild increased shortness of breath and chest discomfort because of repeated coughing. Patient reports bouts of coughing/spells where it gets difficult to catch her breath. She denies any fever or chills. Patient is currently on second round of steroids. Patient decided to be seen in the ER to make sure that she has not developed pneumonia as she is prone to. Timing/Duration: week(s), gradual onset, worse Activities at Onset: rest Severity of Dyspnea-Max: moderate Severity of Dyspnea-Current: moderate Possible Cause: frequent episodes Modifying Factors: Improves With: albuterol nebulizer, oxygen. Worsens With: coughing Associated Symptoms: cough, wheezing, productive cough Allergies/Adverse Reactions: sumatriptan [From Imitrex] Allergy (Intermediate, Verified 01/14/20 14:13) Rash codeine Allergy (Mild, Verified 01/14/20 14:13) Rash MAKES SICK nitrofurantoin [From Macrobid] Allergy (Unknown, Verified 01/14/20 14:13) sumatriptan succinate [From Imitrex] Allergy (Verified 01/14/20 14:13) morphine Adverse Reaction (Severe, Verified 01/14/20 14:13) Headache MIGRAINES fentanyl Adverse Reaction (Intermediate, Verified 01/14/20 14:13) Headache hydrocodone bitartrate [From Vicodin] Adverse Reaction (Mild, Verified 01/14/20 14:13) Vomiting hydromorphone [From Dilaudid] Adverse Reaction (Mild, Verified 01/14/20 14:13) pt states makes heache worse. Home Medications: Alprazolam 1 mg [Xanax 1 mg] 1 mg PO TID 02/17/13 [History] Polyethylene Glycol 3350 17 gm [Miralax Powder 17GM PACKET] 34 gm PO BID 11/15/14 [History] Sennosides/Docusate Sodium [Senokot-S Tablet] 1 tab PO DAILY 04/25/15 [History] Promethazine HCl 25 mg [Phenergan 25 mg] 25 mg PO Q4HPRN PRN 05/11/15 [History] Cetirizine HCl/Pseudoephedrine [Zyrtec-D Tablet] 1 each PO DAILY 02/03/16 [History] Aspirin 81 mg PO DAILY 09/11/16 [History] Levothyroxine Sodium 50 Mcg [Synthroid 50 Mcg] 50 mcg PO DAILY 07/06/17 [History] Linaclotide [Linzess] 290 mcg PO DAILY 10/07/17 [History] Rizatriptan Benzoate [Maxalt] 10 mg PO BID PRN PRN 06/23/18 [History] Fluticasone Propionate [Flonase NASAL] 2 spray NS DAILY 01/19/19 [History] Sodium Bicarbonate 650 mg PO DAILY 01/19/19 [History] Phenazopyridine HCl 200 mg [Pyridium 200 mg] 200 mg PO BID PRN 03/20/19 [History] Guaifenesin 600 mg ER [Mucinex 600MG ER Tabs] 600 mg PO DAILY 04/05/19 [History] Sucralfate 1 gm [Carafate 1 GM] 1 g PO ACHS 04/05/19 [History] Benzonatate [Tessalon Perle] 100 mg PO UD 11/10/19 [History] Methylprednisolone Packet [Medrol Dosepack] 4 mg PO UD 12/26/19 [History] Hx Tetanus, Diphtheria Vaccination/Date Given: Yes Hx Influenza Vaccination/Date Given: Yes Hx Pneumococcal Vaccination/Date Given: Yes Immunizations Up to Date: Yes Travel Risk - International Travel Have you traveled outside of the country in past 3 weeks: No - Coronavirus Screening Are you exhibiting any of the following symptoms?: Yes Symptoms: Cough: New Onset, Shortness of Breath Close contact with a COVID-19 positive Pt in past 14-21 Days: No - Review of Systems Constitutional: Fatigue Eyes: No Symptoms Ears, Nose, & Throat: Nose Congestion Respiratory: Cough, Dyspnea, Wheezing Cardiac: No Symptoms Abdominal/Gastrointestinal: No Symptoms Genitourinary Symptoms: No Symptoms Musculoskeletal: No Symptoms Skin: No Symptoms Neurological: No Symptoms Psychological: No Symptoms Endocrine: No Symptoms Hematologic/Lymphatic: No Symptoms Immunological/Allergic: No Symptoms - Past Medical History Pertinent Past Medical History: Yes Neurological History: No Pertinent History, Migraines ENT History: Cataracts, Other Cardiac History: No Pertinent History Respiratory History: Bronchitis, COPD, Other Endocrine Medical History: Hypothyroidism, Other Musculoskeletal History: Arthritis, Degenerative Disk Disease, Osteoarthritis, Other GI Medical History: GERD, Irritable Bowel, Ulcer, Other History: Other Psycho-Social History: Anxiety Female Reproductive Disorders: Other Other Medical History: Recurrent UTI,urine kidney/bladder problems recurrent. 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 TRACHEA MALASIA, recent bronchitis and pneumonia - Past Surgical History Past Surgical History: Yes Neuro Surgical History: No Pertinent History Cardiac: No Pertinent History Respiratory: No Pertinent History Gastrointestinal: Bowel Surgery, Cholecystectomy, Colon Resection, Hernia Repair Genitourinary: Other Musculoskeletal: No Pertinent History Female Surgical History: Hysterectomy Other Surgical History: COLONOSCOPIES, EGDs. Total colectomy. FEEDING TUBE FOR 4 YEARS, stretches of bladder and urethra, bowel obstructions x2, lithotripsy. bronch on 1320 - Social History Smoking Status: Never smoker Exposure to second hand smoke: No Alcohol Use: None Drug Use: none Patient Lives Alone: Yes Significant Family History: no pertinent family hx - Nursing Vital Signs Nursing Vital Signs: Initial Vital Signs Temperature 99.3 F 01/14/20 14:13 Pulse Rate 106 H 01/14/20 14:13 Respiratory Rate 20 01/14/20 14:13 Blood Pressure 132/91 01/14/20 14:13 O2 Sat by Pulse Oximetry 97 01/14/20 14:13 Pain Scale Pain Intensity 2 - Physical Exam General Appearance: no apparent distress, alert, anxiety Eye Exam: PERRL/EOMI, eyes nml inspection Ears, Nose, Throat Exam: hearing grossly normal, normal ENT inspection, normal pharynx Neck Exam: normal inspection, non-tender, supple, full range of motion Respiratory Exam: airway intact, wheezing, No crackles/rales Cardiovascular/Chest Exam: normal heart sounds, regular rate/rhythm Abdominal/Gastrointestinal Exam: soft, No tenderness Extremity Exam: non-tender, normal range of motion, normal inspection Neurologic Exam: alert, 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, cooperative Skin Exam: normal color SpO2 Interpretation: normal SpO2: 94 O2 Delivery: Nasal Cannula - Course EKG Interpreted by Me: RATE ([id number]), Sinus Tach, NORMAL AXIS, NORMAL INTERVALS, N ORMAL QRS Ordered Tests: Active Orders 24 hr Category Date Time Status Tailings Worker STAT Care 01/14/20 14:21 Active EKG-ER Only STAT Care 01/14/20 14:20 Active IV Insertion STAT Care 01/14/20 14:20 Active Oxygen-ED Only Nasal Cannula 2 lpm Care 01/14/20 14:20 Active CHEST 1 VIEW (PORTABLE) Stat Exams 01/14/20 14:57 Taken BLOOD CULTURE Stat Lab 01/14/20 14:20 Ordered CBC W DIFF Stat Lab 01/14/20 14:20 Completed CMP Stat Lab 01/14/20 14:20 Completed CULTURE,URINE Stat Lab 01/14/20 17:17 Received Lactic Acid Stat Lab 01/14/20 14:20 Completed Lactic Acid Stat Lab 01/14/20 16:51 Stop Req MAGNESIUM Stat Lab 01/14/20 14:20 Completed Manual Differential NC Stat Lab 01/14/20 14:20 Completed NT PRO BNP Stat Lab 01/14/20 14:20 Completed TROPONIN Q3H Lab 01/14/20 14:20 Completed TROPONIN Q3H Lab 01/14/20 16:46 Completed TROPONIN Q3H Lab 01/14/20 20:30 Ordered TROPONIN Q3H Lab 01/14/20 23:30 Ordered TROPONIN Q3H Lab 01/15/20 02:30 Ordered UA W/RFX UR CULTURE Stat Lab 01/14/20 17:17 Completed Respiratory Therapy Assessment DAILY RT 01/14/20 15:08 Completed Medication Summary Discontinued Medications Generic Name Dose Route Start Last Admin Trade Name Freq PRN Reason Stop Dose Admin Hydrocodone Bitart/Acetaminophen 15 ml 01/14/20 14:32 01/14/20 14:49 Hydrocodone-Acetamin 2.5-108/5 Ml Solution PO 01/14/20 14:33 15 ml STAT STA Administration Hydrocodone Bitart/Acetaminophen Confirm 01/14/20 14:43 Hydrocodone-Acetamin 2.5-108/5 Ml Solution Administered 01/14/20 14:44 Dose 5 ml .ROUTE .STK-MED ONE Hydrocodone Bitart/Acetaminophen Confirm 01/14/20 14:47 Hydrocodone-Acetamin 2.5-108/5 Ml Solution Administered 01/14/20 14:48 Dose 10 ml .ROUTE .STK-MED ONE Albuterol/Ipratropium 3 ml 01/14/20 14:20 01/14/20 14:30 Duoneb 0.5-3 Mg/3 Ml Neb IH 01/14/20 14:21 3 ml STAT ONE Administration Albuterol/Ipratropium Confirm 01/14/20 14:31 Duoneb 0.5-3 Mg/3 Ml Neb Administered 01/14/20 14:32 Dose 3 ml IH .STK-MED ONE Aspirin 324 mg 01/14/20 14:21 01/14/20 14:26 Baby Aspirin 81 Mg Chew PO 01/14/20 14:22 324 mg STAT ONE Administration Aspirin Confirm 01/14/20 14:24 Baby Aspirin 81 Mg Chew Administered 01/14/20 14:25 Dose 324 mg .ROUTE .STK-MED ONE Azithromycin 500 mg in 250 mls @ 250 mls/hr 01/14/20 15:56 01/14/20 16:39 Zithromax 500 Mg/ 250 Ml Nacl Premix IV 01/14/20 16:55 250 mls/hr STAT STA 250 mls/hr Administration Ceftriaxone Sodium/Dextrose 1 g in 50 mls @ 100 mls/hr 01/14/20 15:56 01/14/20 17:23 Rocephin 1 Gm-D5w 50 Ml Bag IV 01/14/20 16:25 Infused STAT STA Infusion Ceftriaxone Sodium/Dextrose Confirm 01/14/20 16:10 Rocephin 1 Gm-D5w 50 Ml Bag Administered 01/14/20 16:11 Dose 1 g in 50 mls @ ud IV .STK-MED ONE Azithromycin Confirm 01/14/20 16:38 Zithromax 500 Mg/ 250 Ml Nacl Premix Administered 01/14/20 16:39 Dose 500 mg in 250 mls @ ud IV .STK-MED ONE Methylprednisolone Sodium Succinate 125 mg 01/14/20 14:20 01/14/20 14:26 Solu-Medrol 125 Mg IV 01/14/20 14:21 125 mg STAT ONE Administration Methylprednisolone Sodium Succinate Confirm 01/14/20 14:24 Solu-Medrol 125 Mg Administered 01/14/20 14:25 Dose 125 mg .ROUTE .STK-MED ONE Lab/Rad Data: Laboratory Result Diagrams 01/14/20 14:20 01/14/20 14:20 Laboratory Results 01/14/20 01/14/20 01/14/20 Range/Units 17:17 16:46 14:20 WBC (4.0-10.5) K/mm3 RBC (4.1-5.4) M/mm3 Hgb (12.0-16.0) gm/dl Hct (35-47) % MCV (78-100) fl MCH (26-32) pg MCHC (32-36) g/dl RDW (11.5-14.0) % Plt Count (150-450) K/mm3 MPV (7.5-11.0) fl Segmented Neutrophils (36.0-66.0) % Band Neutrophils (0.0-2.0) % Lymphocytes (Manual) (24-44) % Monocytes (Manual) (0.0-12.0) % Toxic Granulation Platelet Estimate (NORMAL) RBC Morphology Sodium (137-145) mmol/L Potassium (3.5-5.1) mmol/L Chloride (98-107) mmol/L Carbon Dioxide (22-30) mmol/L Anion Gap (5-15) MEQ/L BUN (7-17) mg/dL Creatinine (0.52-1.04) mg/dL Estimated GFR ML/MIN Glucose (74-106) mg/dL Lactic Acid (0.4-2.0) Calcium (8.4-10.2) mg/dL Magnesium (1.6-2.3) mg/dL Total Bilirubin (0.2-1.3) mg/dL AST (14-36) U/L ALT (0-35) U/L Alkaline Phosphatase (38-126) U/L Troponin I < 0.012 < 0.012 (0.000-0.034) ng/mL NT-Pro-B Natriuret Pep (0-900) pg/mL Serum Total Protein (6.3-8.2) g/dL Albumin (3.5-5.0) g/dL Urine Color YELLOW (YELLOW) Urine Appearance SLIGHTLY CLOUDY (CLEAR) Urine pH 5.0 (5-6) Ur Specific Pierre 1.031 (1.005-1.025) Urine Protein 30 (Negative) Urine Ketones NEGATIVE (NEGATIVE) Urine Blood NEGATIVE (0-5) Aroldo/ul Urine Nitrite NEGATIVE (NEGATIVE) Urine Bilirubin NEGATIVE (NEGATIVE) Urine Urobilinogen NEGATIVE (0-1) mg/dL Ur Leukocyte Esterase MODERATE (NEGATIVE) Urine WBC (Auto) 11-15 (0-5) /HPF Urine RBC (Auto) 3-5 (0-2) /HPF U Epithel Cells (Auto) RARE (FEW) /HPF Urine Bacteria (Auto) RARE (NEGATIVE) /HPF Granular Casts (Auto) 0-2 (NEGATIVE) /LPF Urine Mucus (Auto) SLIGHT (NEGATIVE) /HPF Urine Culture Reflexed YES (NO) Urine Glucose NEGATIVE (NEGATIVE) mg/dL 01/14/20 01/14/20 01/14/20 Range/Units 14:20 14:20 14:20 WBC 11.7 H (4.0-10.5) K/mm3 RBC 4.45 (4.1-5.4) M/mm3 Hgb 12.7 (12.0-16.0) gm/dl Hct 39.6 (35-47) % MCV 89.0 (78-100) fl MCH 28.5 (26-32) pg MCHC 32.1 (32-36) g/dl RDW 14.8 H (11.5-14.0) % Plt Count 211 (150-450) K/mm3 MPV 11.1 H (7.5-11.0) fl Segmented Neutrophils 87 H (36.0-66.0) % Band Neutrophils 2 (0.0-2.0) % Lymphocytes (Manual) 10 L (24-44) % Monocytes (Manual) 1 (0.0-12.0) % Toxic Granulation 2+ Platelet Estimate NORMAL (NORMAL) RBC Morphology NORMAL Sodium 138 (137-145) mmol/L Potassium 4.4 (3.5-5.1) mmol/L Chloride 111 H (98-107) mmol/L Carbon Dioxide 17 L (22-30) mmol/L Anion Gap 14.4 (5-15) MEQ/L BUN 30 H (7-17) mg/dL Creatinine 1.22 H (0.52-1.04) mg/dL Estimated GFR 47.2 ML/MIN Glucose 140 H (74-106) mg/dL Lactic Acid 2.5 H (0.4-2.0) Calcium 9.4 (8.4-10.2) mg/dL Magnesium 1.7 (1.6-2.3) mg/dL Total Bilirubin 0.50 (0.2-1.3) mg/dL AST 30 (14-36) U/L ALT 29 (0-35) U/L Alkaline Phosphatase 119 (38-126) U/L Troponin I (0.000-0.034) ng/mL NT-Pro-B Natriuret Pep 79.3 (0-900) pg/mL Serum Total Protein 7.7 (6.3-8.2) g/dL Albumin 4.2 (3.5-5.0) g/dL Urine Color (YELLOW) Urine Appearance (CLEAR) Urine pH (5-6) Ur Specific Pierre (1.005-1.025) Urine Protein (Negative) Urine Ketones (NEGATIVE) Urine Blood (0-5) Aroldo/ul Urine Nitrite (NEGATIVE) Urine Bilirubin (NEGATIVE) Urine Urobilinogen (0-1) mg/dL Ur Leukocyte Esterase (NEGATIVE) Urine WBC (Auto) (0-5) /HPF Urine RBC (Auto) (0-2) /HPF U Epithel Cells (Auto) (FEW) /HPF Urine Bacteria (Auto) (NEGATIVE) /HPF Granular Casts (Auto) (NEGATIVE) /LPF Urine Mucus (Auto) (NEGATIVE) /HPF Urine Culture Reflexed (NO) Urine Glucose (NEGATIVE) mg/dL - Progress Progress: improved Air Movement: good Progress Note: 64 years old is evaluated for worsening cough and dyspnea. EKG showed sinus tach with no acute ST elevations or depressions. Patient is very anxious. She is given breathing treatment and IV steroid along with liquid hydrocodone, on reevaluation her cough and breathing is better. She has minimal wheezing all over which according to patient she keeps all the time. Chest x-ray did not show any focal consolidation reviewed by me, official report is pending. She has a white count of 11 with a lactate of 2.6 and chronic kidney disease. I have given a dose of antibiotics IV over here, recommended admission but patient does not want to stay. Patient reports "I came here to make sure that I do not have a pneumonia, my cough is there all the time and does not go away". She is worried about getting Covid once admitted to the hospital. Patient is counseled in length about risk of leaving with worsening of her condition going to worse full-blown respiratory failure but she does not want to stay at all and is adamant about leaving. Since she is already taking steroids I will continue with that but I will switch our Omnicef to doxycycline to go home. Discussed with patient about prompt return to ER if has any worsening of her condition which she seems understanding. Recommended continuing with inhalers and nebulizers and outpatient follow-up with Dr. Santiago and primary care in 1 to 2 days. Blood Culture(s) Obtained: Yes Antibiotics given: Yes Counseled pt/family regarding: lab results, diagnosis, rad results - Departure Departure Disposition: Home Clinical Impression: COPD exacerbation Condition: Stable Critical Care Time: Yes Critical Care Time(excluding separately billable procedures): Critical 30-74 mins Referrals: LLUVIA CHILDERS DO [Primary Care Provider] - (1-2 days for re evaluation) GEORGINA SANTIAGO [ACTIVE STAFF] - (1-2 days for re evaluation) Instructions: Chronic Obstructive Pulmonary Disease, Exacerbation of COPD (DC) Additional Instructions: Continue with steroid. Use inhaler nebulizer as recommended. Use oxygen all the time. Return to ER for worsening difficulty breathing or if develop chest pain. Follow-up with your primary care and pulmonology for reevaluation in 1 to 2 days. Prescriptions: Doxycycline Hyclate 100 mg [Vibramycin 100 MG] 100 mg PO BID #14 tab
[2020-01-14] MEDS ORDERED: Zithromax 500 MG/ 250 ML NaCl Premix 500 MG/250 ML IVPB IV ONE (16:38)
[2020-01-14 17:03] VITALS: PULSE 88
[2020-01-14 17:27] LABS: Appearance SLIGHTLY CLOUDY (CLEAR); Bacteria RARE /HPF (NEGATIVE); Bilirubin NEGATIVE (NEGATIVE); Blood NEGATIVE Ery/ul (0-5); Epithelial Cells RARE /HPF (FEW); Glucose NEGATIVE (NEGATIVE); Granular Casts 0-2 /LPF (NEGATIVE); Ketones NEGATIVE (NEGATIVE); Leukocyte Esterase MODERATE (NEGATIVE); Mucus SLIGHT /HPF (NEGATIVE); Nitrite NEGATIVE (NEGATIVE); Protein,Urine Dip 30 (Negative); Specific Gravity 1.031 (1.005-1.025); Urobilinogen NEGATIVE mg/dL (0-1)
[2020-01-14 18:05] VITALS: BP 106/58; O2SAT 96
--- NOTE | 2020-01-14 19:02 | XRAY ---
Indication: Cough. COPD and asthma. Comparison: December 04, 2019. Portable chest demonstrates stable minimal right base fibrosis/scarring, right hilar calcified nodes, and right Port-A-Cath. Heart is not enlarged. No new/acute cardiopulmonary abnormalities.
== END 2020-01-14 18:09 | disposition home or self-care (01) ==
LOC: ED 14:03
DX: J44.1 Chronic obstructive pulmonary disease with (acute) exacerbation (principal); J96.10 Chronic respiratory failure, unspecified whether with hypoxia or hypercapnia; Z99.81 Dependence on supplemental oxygen; Z79.899 Other long term (current) drug therapy
CPT/HCPCS: 36000; 36415; 71045; 80053; 81001; 83605; 83735; 83880; 84484; 85025; 87040; 87086; 93005; 93041; 94640; 96365; 96367; 96374; 99285; 99291; J0456; J0696; J1642; J2930; A9270-GY

== ENCOUNTER 2020-01-21 01:57 | Inpatient (IN) | payer MEDICARE ==
--- NOTE | 2020-01-21 02:08 | ERPHSYRPT ---
- History of Present Illness Time Seen by Provider: 01/21/20 02:00 Historian: patient Exam Limitations: no limitations Physician History: This is a 64-year-old white female who has a history of COPD on 2 L of oxygen via nasal cannula daily, DJD, gastroesophageal reflux disease, bronchitis, anxiety issues and chronic renal disease who presents with 20 minutes of chest pain that is central nonradiating. She also has associated cough. In the last few weeks the patient has been treated for bronchitis with steroids and various antibiotics. Patient is still on steroids. Patient was seen on 01/14/2020 for the same symptoms. 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 Patient is on Tessalon Perles and guaifenesin. She states that has not been helping her cough. Patient had a chest x-ray performed on 01/14/2020 and the radiologist read this as negative for any acute cardiopulmonary findings. Patient has adverse reactions but no allergies to hydrocodone, morphine, fentanyl and hydromorphone. Timing/Duration: today (20 minutes prior to arrival) Activities at Onset: none Quality: sharpness, stabbing Location: substernal, central Chest Pain Radiation: no radiation Severity of Pain-Max: moderate Severity of Pain-Current: moderate Modifying Factors: Improves With: coughing Associated Symptoms: shortness of breath, cough Prior Chest Pain/Cardiac Workup: recently seen/treated Nitro Today/Relief: no nitro taken today Aspirin Treatment Today: 81 mg x 1 Allergies/Adverse Reactions: sumatriptan [From Imitrex] Allergy (Intermediate, Verified 01/21/20 02:17) Rash codeine Allergy (Mild, Verified 01/21/20 02:17) Rash MAKES SICK nitrofurantoin [From Macrobid] Allergy (Unknown, Verified 01/21/20 02:17) sumatriptan succinate [From Imitrex] Allergy (Verified 01/21/20 02:17) morphine Adverse Reaction (Severe, Verified 01/21/20 02:17) Headache MIGRAINES fentanyl Adverse Reaction (Intermediate, Verified 01/21/20 02:17) Headache hydrocodone bitartrate [From Vicodin] Adverse Reaction (Mild, Verified 01/21/20 02:17) Vomiting hydromorphone [From Dilaudid] Adverse Reaction (Mild, Verified 01/21/20 02:17) pt states makes heache worse. Home Medications: Alprazolam 1 mg [Xanax 1 mg] 1 mg PO TID 02/17/13 [History] Polyethylene Glycol 3350 17 gm [Miralax Powder 17GM PACKET] 34 gm PO BID 11/15/14 [History] Sennosides/Docusate Sodium [Senokot-S Tablet] 1 tab PO DAILY 04/25/15 [History] Promethazine HCl 25 mg [Phenergan 25 mg] 25 mg PO Q4HPRN PRN 05/11/15 [History] Cetirizine HCl/Pseudoephedrine [Zyrtec-D Tablet] 1 each PO DAILY 02/03/16 [History] Aspirin 81 mg PO DAILY 09/11/16 [History] Levothyroxine Sodium 50 Mcg [Synthroid 50 Mcg] 50 mcg PO DAILY 07/06/17 [History] Linaclotide [Linzess] 290 mcg PO DAILY 10/07/17 [History] Rizatriptan Benzoate [Maxalt] 10 mg PO BID PRN PRN 06/23/18 [History] Fluticasone Propionate [Flonase NASAL] 2 spray NS DAILY 01/19/19 [History] Sodium Bicarbonate 650 mg PO DAILY 01/19/19 [History] Phenazopyridine HCl 200 mg [Pyridium 200 mg] 200 mg PO BID PRN 03/20/19 [History] Guaifenesin 600 mg ER [Mucinex 600MG ER Tabs] 600 mg PO DAILY 04/05/19 [History] Sucralfate 1 gm [Carafate 1 GM] 1 g PO ACHS 04/05/19 [History] Benzonatate [Tessalon Perle] 100 mg PO UD 11/10/19 [History] Methylprednisolone Packet [Medrol Dosepack] 4 mg PO UD 12/26/19 [History] Hx Tetanus, Diphtheria Vaccination/Date Given: Yes Hx Influenza Vaccination/Date Given: Yes Hx Pneumococcal Vaccination/Date Given: Yes - Past Medical History Pertinent Past Medical History: Yes Neurological History: No Pertinent History, Migraines ENT History: Cataracts, Other Cardiac History: No Pertinent History Respiratory History: Bronchitis, COPD, Other Endocrine Medical History: Hypothyroidism, Other Musculoskeletal History: Arthritis, Degenerative Disk Disease, Osteoarthritis, Other GI Medical History: GERD, Irritable Bowel, Ulcer, Other History: Other Psycho-Social History: Anxiety Female Reproductive Disorders: Other Other Medical History: Recurrent UTI,urine kidney/bladder problems recurrent. 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 TRACHEA MALASIA, recent bronchitis and pneumonia - Past Surgical History Past Surgical History: Yes Neuro Surgical History: No Pertinent History Cardiac: No Pertinent History Respiratory: No Pertinent History Gastrointestinal: Bowel Surgery, Cholecystectomy, Colon Resection, Hernia Repair Genitourinary: Other Musculoskeletal: No Pertinent History Female Surgical History: Hysterectomy Other Surgical History: COLONOSCOPIES, EGDs. Total colectomy. FEEDING TUBE FOR 4 YEARS, stretches of bladder and urethra, bowel obstructions x2, lithotripsy. bronch on 1320 - Social History Smoking Status: Never smoker Exposure to second hand smoke: No Alcohol Use: None Drug Use: none Patient Lives Alone: Yes Significant Family History: no pertinent family hx - Nursing Vital Signs Nursing Vital Signs: Initial Vital Signs Temperature 98.8 F 01/21/20 02:17 Pulse Rate 98 H 01/21/20 02:17 Respiratory Rate 22 01/21/20 02:17 Blood Pressure 122/81 01/21/20 02:17 O2 Sat by Pulse Oximetry 97 01/21/20 02:17 Pain Scale Pain Intensity 4 - Physical Exam General Appearance: no apparent distress, alert, anxiety Eye Exam: PERRL/EOMI, eyes nml inspection Ears, Nose, Throat Exam: normal ENT inspection, moist mucous membranes Neck Exam: normal inspection, non-tender, supple, full range of motion Respiratory Exam: normal breath sounds, chest tenderness, lungs clear, airway intact, No respiratory distress Cardiovascular Exam: regular rate/rhythm, normal heart sounds, normal peripheral pulses Gastrointestinal/Abdomen Exam: soft, normal bowel sounds, No tenderness Pelvic Exam: not done Rectal Exam: not done Back Exam: normal inspection, normal range of motion, No CVA tenderness, No vertebral tenderness Extremity Exam: normal inspection, normal range of motion, pelvis stable Neurologic Exam: alert, 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, cooperative, alternative financing specialist II-XII nml as tested, nml cerebellar function, nml station & gait, sensation nml Skin Exam: normal color, warm, dry Lymphatic Exam: No adenopathy SpO2 Interpretation: normal O2 Delivery: Room Air - Course Nursing assessment & vital signs reviewed: Yes EKG Interpreted by Me: RATE ([id number]), Sinus Tach, NORMAL AXIS, NORMAL INTERVALS, NORMAL QRS, Other (There are no acute ischemic changes on this EKG. There is a comparison EKG on 01/14/2020 and there are no changes compared to that EKG.) Ordered Tests: Active Orders 24 hr Category Date Time Status Online Services Manager STAT Care 01/21/20 02:19 Active EKG-ER Only STAT Care 01/21/20 02:18 Active IV Insertion STAT Care 01/21/20 02:18 Active Pulse Oximetry (ED) STAT Care 01/21/20 02:18 Active CHEST 1 VIEW (PORTABLE) Stat Exams 01/21/20 02:19 Taken CHEST WITH CONTRAST [CT] Stat Exams 01/21/20 02:55 Taken CBC W DIFF Stat Lab 01/21/20 02:15 Completed CMP Stat Lab 01/21/20 02:15 Completed D-DIMER QUANTITATIVE Stat Lab 01/21/20 02:15 Completed INFLUENZA A+B PRATEEK Stat Lab 01/21/20 02:15 Completed Manual Differential NC Stat Lab 01/21/20 02:15 Completed [place] Screen Stat Lab 01/21/20 02:15 Completed NT PRO BNP Stat Lab 01/21/20 02:15 Completed PROTIME WITH INR Stat Lab 01/21/20 02:15 Completed TROPONIN Q3H Lab 01/21/20 02:15 Completed TROPONIN Q3H Lab 01/21/20 05:30 Ordered TROPONIN Q3H Lab 01/21/20 08:30 Ordered TROPONIN Q3H Lab 01/21/20 11:30 Ordered TROPONIN Q3H Lab 01/21/20 14:30 Ordered Transfer Order Routine Transfer 01/21/20 Ordered Medication Summary Discontinued Medications Generic Name Dose Route Start Last Admin Trade Name Freq PRN Reason Stop Dose Admin Hydrocodone Bitart/Acetaminophen 10 ml 01/21/20 02:59 01/21/20 03:03 Hydrocodone-Acetamin 2.5-108/5 Ml Solution PO 01/21/20 03:00 10 ml STAT STA Administration Hydrocodone Bitart/Acetaminophen Confirm 01/21/20 03:02 Hydrocodone-Acetamin 2.5-108/5 Ml Solution Administered 01/21/20 03:03 Dose 10 ml .ROUTE .STK-MED ONE Enoxaparin Sodium 80 mg 01/21/20 04:08 01/21/20 04:11 Enoxaparin Sodium SQ 01/21/20 04:09 80 mg STAT ONE Administration Enoxaparin Sodium Confirm 01/21/20 04:10 Enoxaparin Sodium Administered 01/21/20 04:11 Dose 80 mg SQ .STK-MED ONE Sodium Chloride 1,000 mls @ 999 mls/hr 01/21/20 02:18 01/21/20 03:37 Sodium Chloride 0.9% 1000 Ml IV 01/21/20 03:18 Infused .Q1H1M STA Infusion Sodium Chloride Confirm 01/21/20 02:32 Sodium Chloride 0.9% 1000 Ml Administered 01/21/20 02:33 Dose 1,000 mls @ ud .ROUTE .STK-MED ONE Lab/Rad Data: Laboratory Result Diagrams 01/21/20 02:15 01/21/20 02:15 Laboratory Results 01/21/20 01/21/20 01/21/20 Range/Units 02:15 02:15 02:15 WBC (4.0-10.5) K/mm3 RBC (4.1-5.4) M/mm3 Hgb (12.0-16.0) gm/dl Hct (35-47) % MCV (78-100) fl MCH (26-32) pg MCHC (32-36) g/dl RDW (11.5-14.0) % Plt Count (150-450) K/mm3 MPV (7.5-11.0) fl PT (9.95-12.35) SECONDS INR (0.8-3.0) D-Dimer (215-500) ng/mL Sodium (137-145) mmol/L Potassium (3.5-5.1) mmol/L Chloride (98-107) mmol/L Carbon Dioxide (22-30) mmol/L Anion Gap (5-15) MEQ/L BUN (7-17) mg/dL Creatinine (0.52-1.04) mg/dL Estimated GFR ML/MIN Glucose (74-106) mg/dL Calcium (8.4-10.2) mg/dL Total Bilirubin (0.2-1.3) mg/dL AST (14-36) U/L ALT (0-35) U/L Alkaline Phosphatase (38-126) U/L Troponin I < 0.012 (0.000-0.034) ng/mL NT-Pro-B Natriuret Pep (0-900) pg/mL Serum Total Protein (6.3-8.2) g/dL Albumin (3.5-5.0) g/dL Monoscreen NEGATIVE (Negative) Influenza Type A Ag (NEGATIVE) Influenza Type B Ag (NEGATIVE) Group A Strep Antibody NOT DETECTED (NEGATIVE) 01/21/20 01/21/20 01/21/20 Range/Units 02:15 02:15 02:15 WBC (4.0-10.5) K/mm3 RBC (4.1-5.4) M/mm3 Hgb (12.0-16.0) gm/dl Hct (35-47) % MCV (78-100) fl MCH (26-32) pg MCHC (32-36) g/dl RDW (11.5-14.0) % Plt Count (150-450) K/mm3 MPV (7.5-11.0) fl PT 11.8 (9.95-12.35) SECONDS INR 1.04 (0.8-3.0) D-Dimer 4406 H* (215-500) ng/mL Sodium 137 (137-145) mmol/L Potassium 4.2 (3.5-5.1) mmol/L Chloride 109 H (98-107) mmol/L Carbon Dioxide 19 L (22-30) mmol/L Anion Gap 12.5 (5-15) MEQ/L BUN 33 H (7-17) mg/dL Creatinine 1.12 H (0.52-1.04) mg/dL Estimated GFR 52.1 ML/MIN Glucose 119 H (74-106) mg/dL Calcium 9.1 (8.4-10.2) mg/dL Total Bilirubin 0.40 (0.2-1.3) mg/dL AST 17 (14-36) U/L ALT 19 (0-35) U/L Alkaline Phosphatase 105 (38-126) U/L Troponin I (0.000-0.034) ng/mL NT-Pro-B Natriuret Pep 82.1 (0-900) pg/mL Serum Total Protein 6.7 (6.3-8.2) g/dL Albumin 3.7 (3.5-5.0) g/dL Monoscreen (Negative) Influenza Type A Ag NEGATIVE (NEGATIVE) Influenza Type B Ag NEGATIVE (NEGATIVE) Group A Strep Antibody (NEGATIVE) 01/21/20 Range/Units 02:15 WBC 10.4 (4.0-10.5) K/mm3 RBC 3.94 L (4.1-5.4) M/mm3 Hgb 11.2 L (12.0-16.0) gm/dl Hct 35.2 (35-47) % MCV 89.3 (78-100) fl MCH 28.4 (26-32) pg MCHC 31.8 L (32-36) g/dl RDW 15.0 H (11.5-14.0) % Plt Count 153 (150-450) K/mm3 MPV 10.9 (7.5-11.0) fl PT (9.95-12.35) SECONDS INR (0.8-3.0) D-Dimer (215-500) ng/mL Sodium (137-145) mmol/L Potassium (3.5-5.1) mmol/L Chloride (98-107) mmol/L Carbon Dioxide (22-30) mmol/L Anion Gap (5-15) MEQ/L BUN (7-17) mg/dL Creatinine (0.52-1.04) mg/dL Estimated GFR ML/MIN Glucose (74-106) mg/dL Calcium (8.4-10.2) mg/dL Total Bilirubin (0.2-1.3) mg/dL AST (14-36) U/L ALT (0-35) U/L Alkaline Phosphatase (38-126) U/L Troponin I (0.000-0.034) ng/mL NT-Pro-B Natriuret Pep (0-900) pg/mL Serum Total Protein (6.3-8.2) g/dL Albumin (3.5-5.0) g/dL Monoscreen (Negative) Influenza Type A Ag (NEGATIVE) Influenza Type B Ag (NEGATIVE) Group A Strep Antibody (NEGATIVE) - Progress Progress: improved, re-examined Air Movement: good Progress Note: 01/21/20 02:53 Chest x-ray shows no acute cardiopulmonary process 01/21/20 04:00 Medical decision making: This patient has chest pain and elevated D-dimer 4400. CAT scan of the chest with contrast reveals scattered tiny pulmonary emboli. I spoke with Dr. Perry who happens to be on-call for in-house hospitalist but also is the patient's primary care doctor. She accepts the patient for admission and we will start her on Lovenox. Counseled pt/family regarding: lab results, diagnosis, need for follow-up, rad results - Departure Departure Disposition: Home Clinical Impression: Non-cardiac chest pain, Bronchitis, Pulmonary emboli Condition: Stable Critical Care Time: Yes Critical Care Time(excluding separately billable procedures): Critical 30-74 mins Referrals: LLUVIA PERRY DO [Primary Care Provider] -
[2020-01-21] MEDS ORDERED: Sodium Chloride 0.9% 1000 ML 1,000 ML IV STA (02:18)
[2020-01-21] MEDS ORDERED: Sodium Chloride 0.9% 1000 ML 1,000 ML ONE (02:32)
[2020-01-21 02:39] LABS: INR 1.04 (0.8-3.0); PROTIME 11.8 SECONDS (9.95-12.35)
[2020-01-21 02:48] LABS: Hematocrit 35.2 % (35-47); Hemoglobin 11.2 gm/dl (12.0-16.0); Mean Cell Volume 89.3 fl (78-100); Mean Corpuscular Hemoglobin 28.4 pg (26-32); Mean Corpuscular Hgb Concent. 31.8 g/dl (32-36); Mean Platelet Volume 10.9 fl (7.5-11.0); Platelet Count 153 K/mm3 (150-450); Red Blood Count 3.94 M/mm3 (4.1-5.4); White Blood Count 10.4 K/mm3 (4.0-10.5)
[2020-01-21 02:52] LABS: ALBUMIN 3.7 g/dL (3.5-5.0); ANION GAP 12.5 MEQ/L (5-15); BILIRUBIN,TOTAL 0.4 mg/dL (0.2-1.3); Calcium 9.1 mg/dL (8.4-10.2); Creatinine 1 1.12 mg/dL (0.52-1.04); EST GLOMERULAR FILTRATION RATE 52.1 ML/MIN; NT PRO BNP 82.1 pg/mL (0-900); Potassium 4.2 mmol/L (3.5-5.1); Total Protein 6.7 g/dL (6.3-8.2)
[2020-01-21] MEDS ORDERED: HYDROCODONE-ACETAMIN 2.5-108/5 ML SOLUTION PO STA (02:59)
[2020-01-21] MEDS ORDERED: HYDROCODONE-ACETAMIN 2.5-108/5 ML SOLUTION ONE (03:02)
[2020-01-21 03:25] LABS: INFLUENZA A NEGATIVE (NEGATIVE); INFLUENZA B NEGATIVE (NEGATIVE)
[2020-01-21] MEDS ORDERED: ENOXAPARIN SODIUM SQ ONE ×2 (04:08→04:10)
[2020-01-21 04:27] LABS: Basophil 1 % (0.0-1.0); Eosinophil 1 % (0.00-3.0); Lymphocytes 14 % (24-44); Monocyte 3 % (0.0-12.0); Neutrophils 81 % (36.0-66.0); Total Cells Counted 100
[2020-01-21 04:28] LABS: Platelet Estimate NORMAL (NORMAL)
[2020-01-21] MEDS ORDERED: Zofran 4 MG/2 ML VIAL IV PRN (04:39)
[2020-01-21] MEDS ORDERED: HYDROCODONE-ACETAMIN 2.5-108/5 ML SOLUTION PO PRN (04:39)
[2020-01-21] MEDS ORDERED: Sodium Chloride 0.9% 1000 ML 1,000 ML IV SCH (04:39)
[2020-01-21] MEDS ORDERED: solu-MEDROL 125 MG IV SCH (04:39)
[2020-01-21] MEDS ORDERED: TYLENOL 325 MG PO PRN (04:39)
[2020-01-21] MEDS ORDERED: PROVENTIL 2.5 MG/3 ML NEB IH ONE (05:19)
[2020-01-21] MEDS: Advair Hfa 115/21 Common canister IH SCH ×2 (05:23→21:53)
[2020-01-21] MEDS: PROVENTIL 2.5 MG/3 ML NEB IH SCH ×4 (05:23→21:52)
--- NOTE | 2020-01-21 08:14 | XRAY ---
Indication: Chest pain. Elevated d-dimer. Multiple contiguous axial images obtained through the chest using 80 cc Isovue 370 contrast and PE protocol. Comparison: June 12, 2019. There is good opacification of the pulmonary arteries to include the lobar and segmental branches. New nonobstructing pulmonary emboli seen in all lobar/segmental branches bilaterally. Heart is not enlarged with again right Port-A-Cath. Aorta is normal in course and caliber. Stable small mediastinal and right hilar calcified nodes. Lungs again demonstrates bilateral peripheral fibrosis/scarring, calcified/noncalcified granulomatous nodules, and right lower lobe subsegmental atelectasis. No suspicious pulmonary mass, infiltrate, or effusion. Bony thorax intact. Limited upper abdomen unremarkable. Impression: 1. New nonoccluding bilateral pulmonary emboli. 2. Stable fibrosis/scarring, right lower lobe subsegmental atelectasis, and old granulomatous disease. Comment: Preliminary interpretation was made by [facility]. No critical discrepancy.
--- NOTE | 2020-01-21 08:16 | XRAY ---
Indication: Chest pain. Comparison: January 14, 2020. Portable chest unchanged again demonstrating right base subsegmental atelectasis/scarring, right hilar calcified nodes, and right Port-A-Cath. Remaining heart and lungs unremarkable. No new/acute findings.
--- NOTE | 2020-01-21 13:59 | PCM.HP ---
History of Present Illness - Chief Complaint Chief Complaint: PE, Bronchitis History of Present Illness: is a 64 year old female. Medications & Allergies Home Medications: Home Medication List Alprazolam 1 mg [Xanax 1 mg] 1 mg PO DAILY 02/17/13 [History Confirmed 01/21/20] Polyethylene Glycol 3350 17 gm [Miralax Powder 17GM PACKET] 34 gm PO BID 11/15/14 [History Confirmed 01/21/20] Sennosides/Docusate Sodium [Senokot-S Tablet] 1 tab PO DAILY 04/25/15 [History Confirmed 01/21/20] Promethazine HCl 25 mg [Phenergan 25 mg] 25 mg PO Q4HPRN PRN 05/11/15 [History Confirmed 01/21/20] Cetirizine HCl/Pseudoephedrine [Zyrtec-D Tablet] 1 each PO DAILY 02/03/16 [History Confirmed 01/21/20] Aspirin 81 mg PO DAILY 09/11/16 [History Confirmed 01/21/20] Levothyroxine Sodium 50 Mcg [Synthroid 50 Mcg] 50 mcg PO DAILY 07/06/17 [History Confirmed 01/21/20] Linaclotide [Linzess] 290 mcg PO DAILY 10/07/17 [History Confirmed 01/21/20] Rizatriptan Benzoate [Maxalt] 10 mg PO BID PRN PRN 06/23/18 [History Confirmed 01/21/20] Fluticasone Propionate [Flonase NASAL] 2 spray NS DAILY 01/19/19 [History Confirmed 01/21/20] Guaifenesin 600 mg ER [Mucinex 600MG ER Tabs] 600 mg PO DAILY 04/05/19 [History Confirmed 01/21/20] Sucralfate 1 gm [Carafate 1 GM] 1 g PO ACHS 04/05/19 [History Confirmed 01/21/20] Doxycycline Hyclate 100 mg [Vibramycin 100 MG] 100 mg PO BID #14 tab 01/14/20 [Rx Confirmed 01/21/20] Albuterol Sulfate 1 each IH QID 01/21/20 [History Confirmed 01/21/20] Alprazolam 1 mg [Xanax 1 mg] 2 mg PO QPM 01/21/20 [History Confirmed 01/21/20] Benzonatate 100 mg PO TIDPRN PRN 01/21/20 [History Confirmed 01/21/20] Dexlansoprazole [Dexilant] 60 mg PO DAILY 01/21/20 [History Confirmed 01/21/20] Prednisone 20 mg [Deltasone 20 mg] 20 mg PO DAILY 01/21/20 [History Confirmed 01/21/20] Prucalopride Succinate [Motegrity] 2 mg PO DAILY 01/21/20 [History Confirmed 01/21/20] Allergies/Adverse Reactions: Allergies Allergy/AdvReac Type Severity Reaction Status Date / Time sumatriptan [From Imitrex] Allergy Intermediate Rash Verified 01/21/20 04:53 codeine Allergy Mild Rash Verified 01/21/20 04:53 nitrofurantoin Allergy Unknown Verified 01/21/20 04:53 [From Macrobid] sumatriptan succinate Allergy Verified 01/21/20 04:53 [From Imitrex] morphine AdvReac Severe Headache Verified 01/21/20 04:53 fentanyl AdvReac Intermediate Headache Verified 01/21/20 04:53 hydrocodone bitartrate AdvReac Mild Vomiting Verified 01/21/20 04:53 [From Vicodin] hydromorphone [From Dilaudid] AdvReac Mild pt states Verified 01/21/20 04:53 makes heache worse. - Past Medical History Past Medical History: Yes Neurological History: No Pertinent History, Migraines ENT History: Cataracts, Other Cardiac History: No Pertinent History Respiratory History: Bronchitis, COPD, Other Endocrine Medical History: Hypothyroidism, Other Musculoskelatal History: Arthritis, Degenerative Disk Disease, Osteoarthritis, Other GI Medical History: GERD, Irritable Bowel, Ulcer, Other History: Other Pyscho-Social History: Anxiety Reproductive Disorders: Other Comment: Recurrent UTI,urine kidney/bladder problems recurrent. 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 TRACHEA MALASIA, recent bronchitis and pneumonia - Female History Are you now?: No - Past Surgical History Past Surgical History: Yes Neuro Surgical History: No Pertinent History Cardiac History: No Pertinent History Respiratory Surgery: No Pertinent History GI Surgical History: Bowel Surgery, Cholecystectomy, Colon Resection Genitourinary Surgical Hx: Other Musculskeletal Surgical Hx: No Pertinent History Female Surgical History: Hysterectomy Other Surgical History: COLONOSCOPIES, EGDs. Total colectomy. FEEDING TUBE FOR 4 YEARS, stretches of bladder and urethra, bowel obstructions x2, lithotripsy. bronch on 1320 - Social History Smoking Status: Never smoker Exposure to second hand smoke: No Alcohol: None Drug Use: none Significant Family History: no pertinent family hx - Physical Exam Vital Signs: Vital Signs - 24 hr Temp Pulse Pulse Resp BP Pulse Ox 01/21/20 12:00 98.5 F 104 H 18 118/65 91 L 01/21/20 10:33 22 93 L 01/21/20 08:00 20 01/21/20 07:39 97.4 F 91 H 20 119/62 94 L 01/21/20 05:30 88 20 95 01/21/20 05:28 98.2 F 86 20 124/65 98 01/21/20 04:00 96 H 20 148/98 97 01/21/20 03:07 90 138/91 97 01/21/20 02:54 97 01/21/20 02:17 98.8 F 92 H 98 H 22 122/81 97 Oxygen-Last 24 hours Oxygen Flowrate (L/min)-RT 2 Oxygen Flowrate (L/min)-RT 2 Results - Labs Lab/Micro Results: Lab Results-Last 24 Hours 01/21/20 01/21/20 01/21/20 Range/Units 02:15 02:15 02:15 WBC 10.4 (4.0-10.5) K/mm3 RBC 3.94 L (4.1-5.4) M/mm3 Hgb 11.2 L (12.0-16.0) gm/dl Hct 35.2 (35-47) % MCV 89.3 (78-100) fl MCH 28.4 (26-32) pg MCHC 31.8 L (32-36) g/dl RDW 15.0 H (11.5-14.0) % Plt Count 153 (150-450) K/mm3 MPV 10.9 (7.5-11.0) fl Segmented Neutrophils 81 H (36.0-66.0) % Lymphocytes (Manual) 14 L (24-44) % Monocytes (Manual) 3 (0.0-12.0) % Eosinophils (Manual) 1 (0.00-3.0) % Basophils (Manual) 1 (0.0-1.0) % Platelet Estimate NORMAL (NORMAL) RBC Morphology NORMAL PT 11.8 (9.95-12.35) SECONDS INR 1.04 (0.8-3.0) D-Dimer 4406 H* (215-500) ng/mL Sodium 137 (137-145) mmol/L Potassium 4.2 (3.5-5.1) mmol/L Chloride 109 H (98-107) mmol/L Carbon Dioxide 19 L (22-30) mmol/L Anion Gap 12.5 (5-15) MEQ/L BUN 33 H (7-17) mg/dL Creatinine 1.12 H (0.52-1.04) mg/dL Estimated GFR 52.1 ML/MIN Glucose 119 H (74-106) mg/dL Calcium 9.1 (8.4-10.2) mg/dL Total Bilirubin 0.40 (0.2-1.3) mg/dL AST 17 (14-36) U/L ALT 19 (0-35) U/L Alkaline Phosphatase 105 (38-126) U/L Troponin I (0.000-0.034) ng/mL NT-Pro-B Natriuret Pep 82.1 (0-900) pg/mL Serum Total Protein 6.7 (6.3-8.2) g/dL Albumin 3.7 (3.5-5.0) g/dL Monoscreen (Negative) Influenza Type A Ag (NEGATIVE) Influenza Type B Ag (NEGATIVE) Group A Strep Antibody (NEGATIVE) 01/21/20 01/21/20 01/21/20 Range/Units 02:15 02:15 02:15 WBC (4.0-10.5) K/mm3 RBC (4.1-5.4) M/mm3 Hgb (12.0-16.0) gm/dl Hct (35-47) % MCV (78-100) fl MCH (26-32) pg MCHC (32-36) g/dl RDW (11.5-14.0) % Plt Count (150-450) K/mm3 MPV (7.5-11.0) fl Segmented Neutrophils (36.0-66.0) % Lymphocytes (Manual) (24-44) % Monocytes (Manual) (0.0-12.0) % Eosinophils (Manual) (0.00-3.0) % Basophils (Manual) (0.0-1.0) % Platelet Estimate (NORMAL) RBC Morphology PT (9.95-12.35) SECONDS INR (0.8-3.0) D-Dimer (215-500) ng/mL Sodium (137-145) mmol/L Potassium (3.5-5.1) mmol/L Chloride (98-107) mmol/L Carbon Dioxide (22-30) mmol/L Anion Gap (5-15) MEQ/L BUN (7-17) mg/dL Creatinine (0.52-1.04) mg/dL Estimated GFR ML/MIN Glucose (74-106) mg/dL Calcium (8.4-10.2) mg/dL Total Bilirubin (0.2-1.3) mg/dL AST (14-36) U/L ALT (0-35) U/L Alkaline Phosphatase (38-126) U/L Troponin I < 0.012 (0.000-0.034) ng/mL NT-Pro-B Natriuret Pep (0-900) pg/mL Serum Total Protein (6.3-8.2) g/dL Albumin (3.5-5.0) g/dL Monoscreen (Negative) Influenza Type A Ag NEGATIVE (NEGATIVE) Influenza Type B Ag NEGATIVE (NEGATIVE) Group A Strep Antibody NOT DETECTED (NEGATIVE) 01/21/20 01/21/20 01/21/20 Range/Units 02:15 05:20 08:30 WBC (4.0-10.5) K/mm3 RBC (4.1-5.4) M/mm3 Hgb (12.0-16.0) gm/dl Hct (35-47) % MCV (78-100) fl MCH (26-32) pg MCHC (32-36) g/dl RDW (11.5-14.0) % Plt Count (150-450) K/mm3 MPV (7.5-11.0) fl Segmented Neutrophils (36.0-66.0) % Lymphocytes (Manual) (24-44) % Monocytes (Manual) (0.0-12.0) % Eosinophils (Manual) (0.00-3.0) % Basophils (Manual) (0.0-1.0) % Platelet Estimate (NORMAL) RBC Morphology PT (9.95-12.35) SECONDS INR (0.8-3.0) D-Dimer (215-500) ng/mL Sodium (137-145) mmol/L Potassium (3.5-5.1) mmol/L Chloride (98-107) mmol/L Carbon Dioxide (22-30) mmol/L Anion Gap (5-15) MEQ/L BUN (7-17) mg/dL Creatinine (0.52-1.04) mg/dL Estimated GFR ML/MIN Glucose (74-106) mg/dL Calcium (8.4-10.2) mg/dL Total Bilirubin (0.2-1.3) mg/dL AST (14-36) U/L ALT (0-35) U/L Alkaline Phosphatase (38-126) U/L Troponin I < 0.012 < 0.012 (0.000-0.034) ng/mL NT-Pro-B Natriuret Pep (0-900) pg/mL Serum Total Protein (6.3-8.2) g/dL Albumin (3.5-5.0) g/dL Monoscreen NEGATIVE (Negative) Influenza Type A Ag (NEGATIVE) Influenza Type B Ag (NEGATIVE) Group A Strep Antibody (NEGATIVE) 01/21/20 Range/Units 11:30 WBC (4.0-10.5) K/mm3 RBC (4.1-5.4) M/mm3 Hgb (12.0-16.0) gm/dl Hct (35-47) % MCV (78-100) fl MCH (26-32) pg MCHC (32-36) g/dl RDW (11.5-14.0) % Plt Count (150-450) K/mm3 MPV (7.5-11.0) fl Segmented Neutrophils (36.0-66.0) % Lymphocytes (Manual) (24-44) % Monocytes (Manual) (0.0-12.0) % Eosinophils (Manual) (0.00-3.0) % Basophils (Manual) (0.0-1.0) % Platelet Estimate (NORMAL) RBC Morphology PT (9.95-12.35) SECONDS INR (0.8-3.0) D-Dimer (215-500) ng/mL Sodium (137-145) mmol/L Potassium (3.5-5.1) mmol/L Chloride (98-107) mmol/L Carbon Dioxide (22-30) mmol/L Anion Gap (5-15) MEQ/L BUN (7-17) mg/dL Creatinine (0.52-1.04) mg/dL Estimated GFR ML/MIN Glucose (74-106) mg/dL Calcium (8.4-10.2) mg/dL Total Bilirubin (0.2-1.3) mg/dL AST (14-36) U/L ALT (0-35) U/L Alkaline Phosphatase (38-126) U/L Troponin I < 0.012 (0.000-0.034) ng/mL NT-Pro-B Natriuret Pep (0-900) pg/mL Serum Total Protein (6.3-8.2) g/dL Albumin (3.5-5.0) g/dL Monoscreen (Negative) Influenza Type A Ag (NEGATIVE) Influenza Type B Ag (NEGATIVE) Group A Strep Antibody (NEGATIVE) - Radiology Impressions Radiology Exams & Impressions: Radiology Procedures Category Date Time Status CHEST 1 VIEW (PORTABLE) Stat Exams 01/21/20 02:19 Completed CHEST WITH CONTRAST [CT] Stat Exams 01/21/20 02:55 Completed - Other Procedures and Tests Respiratory Therapy 01/21/20 04:39 Oxygen Nasal Cannula 2 lpm 01/21/20 06:00 RT Screen per Nursing Assess ONCE 01/21/20 07:00 Respiratory Therapy Assessment DAILY
[2020-01-21] MEDS ORDERED: PHENERGAN 25 MG PO PRN (15:12)
[2020-01-21] MEDS ORDERED: NON-FORMULARY ITEM (Rizatriptan Benzoate [Maxalt] 10 MG) PO PRN (15:12)
[2020-01-21] MEDS ORDERED: Tessalon Perles 100 MG PO PRN (15:12)
[2020-01-21] MEDS: solu-MEDROL 125 MG IV SCH ×2 (15:25→21:23)
[2020-01-21] MEDS ORDERED: MEDICATION INTERVENTION PO SCH (15:30)
[2020-01-21] MEDS: CLARITIN-D 24HR TABLET PO SCH (16:46)
[2020-01-21] MEDS: Flonase NASAL NS SCH (16:46)
[2020-01-21] MEDS: Protonix 40MG Tablet PO SCH (16:46)
[2020-01-21] MEDS: Mucinex 600MG ER Tabs PO SCH (16:46)
[2020-01-21] MEDS: Senokot-S Tablet PO SCH (16:47)
[2020-01-21] MEDS: SYNTHROID 50 MCG PO SCH (16:47)
[2020-01-21] MEDS: XANAX 1 MG PO SCH ×2 (16:47→19:04)
[2020-01-21] MEDS: Carafate 1 GM PO SCH ×2 (17:16→21:23)
[2020-01-21] MEDS: Sodium Chloride 0.9% 1000 ML 1,000 ML IV SCH (18:20)
[2020-01-21] MEDS: Robitussin-Dm Syrup PO PRN (18:29)
[2020-01-21] MEDS: ENOXAPARIN SODIUM SQ SCH (18:33)
[2020-01-21] MEDS ORDERED: XANAX 1 MG ONE (19:03)
[2020-01-21] MEDS: Vibramycin 100 MG PO SCH (21:23)
[2020-01-21] MEDS: Miralax Powder 17GM PACKET PO SCH (21:23)
[2020-01-22] MEDS: Robitussin-Dm Syrup PO PRN ×2 (01:16→09:37)
[2020-01-22] MEDS: Sodium Chloride 0.9% 1000 ML 1,000 ML IV SCH ×3 (04:28→23:40)
[2020-01-22 05:26] LABS: Mean Cell Volume 91.2 fl (78-100); Mean Corpuscular Hemoglobin 28.5 pg (26-32); Mean Corpuscular Hgb Concent. 31.3 g/dl (32-36); Platelet Count 149 K/mm3 (150-450); Red Blood Count 3.51 M/mm3 (4.1-5.4); Red Cell Distribution Width 15.1 % (11.5-14.0); White Blood Count 11.8 K/mm3 (4.0-10.5)
[2020-01-22 05:44] LABS: ANION GAP 10.1 MEQ/L (5-15); BLOOD UREA NITROGEN 21 mg/dL (7-17); CHLORIDE 113 mmol/L (98-107); Calcium 8.6 mg/dL (8.4-10.2); Carbon Dioxide 18 mmol/L (22-30); Creatinine 1 0.82 mg/dL (0.52-1.04); EST GLOMERULAR FILTRATION RATE > 60.0 ML/MIN; Glucose 157 mg/dL (74-106); Potassium 4.2 mmol/L (3.5-5.1); SODIUM 137 mmol/L (137-145)
[2020-01-22 06:03] LABS: ANISOCYTOSIS 1+; BAND 1 % (0.0-2.0); Lymphocytes 3 % (24-44); Neutrophils 96 % (36.0-66.0); Platelet Estimate NORMAL (NORMAL); Poikilocytosis 1+; Total Cells Counted 100
[2020-01-22] MEDS: PROVENTIL 2.5 MG/3 ML NEB IH SCH ×4 (07:46→18:54)
[2020-01-22] MEDS: Advair Hfa 115/21 Common canister IH SCH ×2 (07:46→18:57)
[2020-01-22] MEDS: solu-MEDROL 125 MG IV SCH ×2 (07:56→14:00)
[2020-01-22] MEDS: Carafate 1 GM PO SCH ×4 (07:58→21:40)
[2020-01-22] MEDS: ENOXAPARIN SODIUM SQ SCH ×2 (07:58→16:59)
[2020-01-22] MEDS: SYNTHROID 50 MCG PO SCH (08:27)
[2020-01-22] MEDS: Miralax Powder 17GM PACKET PO SCH ×2 (08:27→21:39)
[2020-01-22] MEDS: Vibramycin 100 MG PO SCH ×2 (09:18→21:40)
[2020-01-22] MEDS: Mucinex 600MG ER Tabs PO SCH (09:18)
[2020-01-22] MEDS: XANAX 1 MG PO SCH ×2 (09:18→21:41)
[2020-01-22] MEDS: Protonix 40MG Tablet PO SCH (09:18)
[2020-01-22] MEDS: CLARITIN-D 24HR TABLET PO SCH (09:19)
[2020-01-22] MEDS: Flonase NASAL NS SCH (09:19)
[2020-01-22] MEDS: Senokot-S Tablet PO SCH (09:36)
[2020-01-22] MEDS ORDERED: CETIRIZINE HCL PO SCH (10:00)
[2020-01-22] MEDS ORDERED: PSEUDOEPHEDRINE PO SCH (10:00)
[2020-01-22] MEDS ORDERED: NON-FORMULARY ITEM (Linaclotide [Linzess] 290 MCG) PO SCH (10:00)
[2020-01-22] MEDS ORDERED: PRUCALOPRIDE SUCCINATE 2 MG PO SCH (10:00)
[2020-01-22] MEDS ORDERED: NON-FORMULARY ITEM (Dexlansoprazole [Dexilant] 60 MG) PO SCH (10:00)
--- NOTE | 2020-01-22 15:19 | PCM.NOTE ---
Date and Time: 01/22/20 1503 Subjective Assessment: Patient states she has finally stopped coughing so hard,is getting her voice back Not much appetite. Denies abdominal pain or GERD. Is concerned about the weight gain since steroids per Dr Ava washington on Prednisone 20mg daily on admission. 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 Is asking where her clot came from,states has been very sedentary and laying in bed alot.Denies leg pain or increased swelling recently.States her daughter has blood clots. O2 dependent ,dropped just now when NC turned away and desaturated to 87% Objective Exam General Appearance: no apparent distress Neurologic Exam: alert, 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 Skin Exam: warm, dry (dusky color) Eye Exam: PERRL, EOMI, eyes nml inspection Neck Exam: normal inspection Respiratory Exam: diminished breath sounds (left base but has improved aeration mid and upper lung gillis.) Cardiovascular Exam: tachycardia, other Extremity Exam: other (no pitting edema neg homans,has some varicosities) OBJECTIVE DATA Vital Signs: Vital Signs - 24 hr Temp Pulse Resp BP Pulse Ox 01/22/20 12:00 98.5 F 103 H 20 127/70 95 01/22/20 11:07 99 H 18 93 L 01/22/20 08:00 18 01/22/20 07:55 98.8 F 86 18 105/55 96 01/22/20 04:00 97.7 F 85 16 103/52 93 L 01/22/20 00:00 18 01/21/20 23:56 97.6 F 89 18 98/59 94 L 01/21/20 21:53 98 H 20 94 L 01/21/20 20:00 97.9 F 98 H 21 101/58 94 L 01/21/20 16:00 98.0 F 105 H 18 119/61 92 L Pain Assessment - Last Documented Pain Intensity 0 Intake and Output: Intake & Output 01/20/20 01/21/20 01/22/20 01/23/20 11:59 11:59 11:59 11:59 Intake Total 3544 Balance 3544 Weight 90.1 kg 98 kg Lab Results: Lab Results-Last 24 Hours 01/21/20 01/22/20 01/22/20 Range/Units 14:30 04:30 04:30 WBC 11.8 H (4.0-10.5) K/mm3 RBC 3.51 L (4.1-5.4) M/mm3 Hgb 10.0 L (12.0-16.0) gm/dl Hct 32.0 L (35-47) % MCV 91.2 (78-100) fl MCH 28.5 (26-32) pg MCHC 31.3 L (32-36) g/dl RDW 15.1 H (11.5-14.0) % Plt Count 149 L (150-450) K/mm3 MPV 11.0 (7.5-11.0) fl Segmented Neutrophils 96 H (36.0-66.0) % Band Neutrophils 1 (0.0-2.0) % Lymphocytes (Manual) 3 L (24-44) % Platelet Estimate NORMAL (NORMAL) RBC Morphology ABNORMAL Poikilocytosis 1+ Anisocytosis 1+ Sodium 137 (137-145) mmol/L Potassium 4.2 (3.5-5.1) mmol/L Chloride 113 H (98-107) mmol/L Carbon Dioxide 18 L (22-30) mmol/L Anion Gap 10.1 (5-15) MEQ/L BUN 21 H (7-17) mg/dL Creatinine 0.82 (0.52-1.04) mg/dL Estimated GFR > 60.0 ML/MIN Glucose 157 H (74-106) mg/dL Calcium 8.6 (8.4-10.2) mg/dL Troponin I < 0.012 (0.000-0.034) ng/mL Radiology Exams: Radiology Procedures Category Date Time Status CHEST 1 VIEW (PORTABLE) Stat Exams 01/21/20 02:19 Completed CHEST WITH CONTRAST [CT] Stat Exams 01/21/20 02:55 Completed Multi-Disciplinary Progress Notes: Multi-Disciplinary Progress Notes 01/22/20 12:00 Case Management Note by Rima Rodriguez ADMISSION NOTED ABUSE- PATIENT DENIES ANY CURRENT ABUSE OR UNSAFE RELATIONSHIPS Initialized on 01/22/20 12:00 - END OF NOTE Assessment/Plan (1) Pulmonary emboli Current Visit: Yes Status: Acute Assessment & Plan: Dr Escalante notified. Continue Levenox,ECHO and venous doppler ordered. Code(s): I26.99 - OTHER PULMONARY EMBOLISM WITHOUT ACUTE COR PULMONALE (2) Bronchitis Current Visit: Yes Status: Acute Assessment & Plan: improved with IV steroids ,is on Doxy since prior to admission. Code(s): J40 - BRONCHITIS, NOT SPECIFIED ACUTE OR CHRONIC (3) Anemia Current Visit: No Status: Chronic Qualifiers: Anemia type: unspecified type Qualified Code(s): D64.9 - Anemia, unspecified Assessment & Plan: monitor,is sable Code(s): D64.9 - ANEMIA, UNSPECIFIED
[2020-01-22] MEDS: solu-MEDROL 40 MG IV SCH (21:41)
[2020-01-23] MEDS: Robitussin-Dm Syrup PO PRN ×2 (04:27→10:13)
[2020-01-23] MEDS: PROVENTIL 2.5 MG/3 ML NEB IH SCH ×3 (05:39→14:20)
[2020-01-23] MEDS: Advair Hfa 115/21 Common canister IH SCH (05:42)
[2020-01-23] MEDS: ENOXAPARIN SODIUM SQ SCH (06:51)
[2020-01-23] MEDS: solu-MEDROL 40 MG IV SCH ×2 (06:54→14:31)
[2020-01-23] MEDS: Carafate 1 GM PO SCH ×3 (06:54→17:03)
[2020-01-23] MEDS: SYNTHROID 50 MCG PO SCH (10:04)
[2020-01-23] MEDS: Protonix 40MG Tablet PO SCH (10:04)
[2020-01-23] MEDS: Senokot-S Tablet PO SCH (10:04)
[2020-01-23] MEDS: Mucinex 600MG ER Tabs PO SCH (10:04)
[2020-01-23] MEDS: XANAX 1 MG PO SCH (10:04)
[2020-01-23] MEDS: Vibramycin 100 MG PO SCH (10:04)
[2020-01-23] MEDS: CLARITIN-D 24HR TABLET PO SCH (10:05)
[2020-01-23] MEDS: Flonase NASAL NS SCH (10:06)
[2020-01-23] MEDS: Miralax Powder 17GM PACKET PO SCH (12:10)
--- NOTE | 2020-01-23 13:27 | XRAY ---
Indication: Bilateral lower extremity pain. History pulmonary embolus. Two-dimensional sonogram and color Doppler imaging of the major venous vessels the left and right leg was performed. Comparison: July 20, 2019. The first half of the exam are correctly labeled right leg. The later images are mislabeled right and are actually of the left leg. Again no thrombus seen in the examined deep venous vessels of the left and right leg including greater saphenous vein. Veins demonstrate normal compressibility. Venous waveforms are normal with and without augmentation. Impression: Left and right legs continue to be negative for DVT.
[2020-01-23] MEDS: Sodium Chloride 0.9% 1000 ML 1,000 ML IV SCH (17:03)
[2020-01-23 17:11] VITALS: BP 118/58; PULSE 100; O2SAT 95
--- NOTE | 2020-01-23 18:07 | PCM.DS ---
Discharge Summary Date of Admission: 01/21/20 04:34 Admitting Physician: LLUVIA CHILDERS DO Primary Care Provider: LLUVIA CHILDERS DO Allergies Allergies sumatriptan [From Imitrex] Allergy (Intermediate, Verified 01/21/20 04:53) Rash codeine Allergy (Mild, Verified 01/21/20 04:53) Rash MAKES SICK nitrofurantoin [From Macrobid] Allergy (Unknown, Verified 01/21/20 04:53) sumatriptan succinate [From Imitrex] Allergy (Verified 01/21/20 04:53) morphine Adverse Reaction (Severe, Verified 01/21/20 04:53) Headache MIGRAINES fentanyl Adverse Reaction (Intermediate, Verified 01/21/20 04:53) Headache hydrocodone bitartrate [From Vicodin] Adverse Reaction (Mild, Verified 01/21/20 04:53) Vomiting hydromorphone [From Dilaudid] Adverse Reaction (Mild, Verified 01/21/20 04:53) pt states makes heache worse. Hospital Summary - Hospital Course Hospital Course: Patient was admitted from ER with dg PE,bilateral nonobstructing emboli treated with Lovenox 80mg q 12 H. LE doppler negative for DVT. She has chronic bronchitis/COPD dependent on O2 followed by Dr Escalante. ECHO completed and results to be read by Station Manager.She has been up walking in her room today without difficulty. - Vitals & Intake/Output Vital Signs: Vital Signs Temperature 98.4 F 01/23/20 16:00 Pulse Rate 100 H 01/23/20 16:00 Respiratory Rate 20 01/23/20 16:00 Blood Pressure 118/58 01/23/20 16:00 O2 Sat by Pulse Oximetry 95 01/23/20 16:00 Intake & Output: Intake & Output 01/21/20 01/22/20 01/23/20 01/24/20 11:59 11:59 11:59 11:59 Intake Total 3544 1120 880 Balance 3544 1120 880 Weight 90.1 kg 98 kg 94.9 kg 94.9 kg - Lab Result Diagrams: 01/22/20 04:30 01/22/20 04:30 Lab Results-Last 24 Hrs: Lab Results-Last 24 Hours 01/21/20 Range/Units 02:15 SARS-CoV-2 RNA (ALLIE) Not Detected (Not Detected) - Radiology Exams Ordered Rad Exams-Entire Visit: Radiology Procedures Category Date Time Status ECHO W/2D AND DOPPLER [US] Routine Exams 01/23/20 12:56 Taken VENOUS BILATERAL EXTREMITY [US] Routine Exams 01/23/20 12:57 Completed - Procedures and Test Procedures and Tests throughout Hospitalization: Therapy Orders & Screens 01/21/20 04:39 Oxygen Nasal Cannula 2 lpm Comment: Respiratory Therapy Consult ROUTINE Comment: Reason For Exam: 01/21/20 06:00 RT Screen per Nursing Assess ONCE Comment: Protocol Order Physician Instructions: Greater than 3 points order RT Admission Screen Reason For Exam: Triggered on Admission Diagnosis: PE, Bronchitis Diagnosis: PE, Bronchitis Pneumonia: No Home O2: Yes Asthma: No CHF: No Home CPAP/BIPAP: No Home Nebs/MDI: Yes Total Points: 10 01/21/20 07:00 Respiratory Therapy Assessment DAILY Comment: Discharge Exam General Appearance: no apparent distress Neurologic Exam: alert, 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, cooperative, normal mood/affect (patient has chronic underlying anxiety.) Eye Exam: PERRL, eyes nml inspection Ears, Nose, Throat Exam: normal ENT inspection Neck Exam: normal inspection Respiratory Exam: normal breath sounds (no wheeze or ronchi or rales) Cardiovascular Exam: regular rate/rhythm, normal heart sounds Gastrointestinal/Abdomen Exam: soft (nontender) Back Exam: normal inspection Final Diagnosis/Problem List - Final Discharge Diagnosis/Problem (1) Pulmonary emboli Current Visit: Yes Status: Acute Assessment & Plan: Patient will be following up with her Numerical Control Drill Press Operator,Dr Escalante. I phone consulted with him today re discharge meds. She will go home on Eliquis 10 mg bid x 7 days then 5mg bid .` Code(s): I26.99 - OTHER PULMONARY EMBOLISM WITHOUT ACUTE COR PULMONALE (2) Bronchitis Current Visit: Yes Status: Resolved Code(s): J40 - BRONCHITIS, NOT SPECIFIED ACUTE OR CHRONIC (3) Anemia Current Visit: No Status: Chronic Assessment & Plan: monitor Code(s): D64.9 - ANEMIA, UNSPECIFIED (4) COPD (chronic obstructive pulmonary disease) with chronic bronchitis Current Visit: Yes Status: Chronic Assessment & Plan: will go home on Prednisone 20mg to be tappered by Dr Escalante. Code(s): J44.9 - CHRONIC OBSTRUCTIVE PULMONARY DISEASE, UNSPECIFIED (5) Oxygen dependent Current Visit: Yes Status: Chronic Assessment & Plan: Will continue home O2. Code(s): Z99.81 - DEPENDENCE ON SUPPLEMENTAL OXYGEN - Discharge Disposition: Home, Self-Care Condition: Stable Prescriptions: New Apixaban [Eliquis] 5 mg PO BID 30 Days #80 tablet Continue Alprazolam 1 mg [Xanax 1 mg] 1 mg PO DAILY Polyethylene Glycol 3350 17 gm [Miralax Powder 17GM PACKET] 34 gm PO BID Sennosides/Docusate Sodium [Senokot-S Tablet] 1 tab PO DAILY Promethazine HCl 25 mg [Phenergan 25 mg] 25 mg PO Q4HPRN PRN PRN Reason: Nausea Cetirizine HCl/Pseudoephedrine [Zyrtec-D Tablet] 1 each PO DAILY Aspirin 81 mg PO DAILY Levothyroxine Sodium 50 Mcg [Synthroid 50 Mcg] 50 mcg PO DAILY Linaclotide [Linzess] 290 mcg PO DAILY Rizatriptan Benzoate [Maxalt] 10 mg PO BID PRN PRN PRN Reason: MIGRAINE Fluticasone Propionate [Flonase NASAL] 2 spray NS DAILY Guaifenesin 600 mg ER [Mucinex 600MG ER Tabs] 600 mg PO DAILY Sucralfate 1 gm [Carafate 1 GM] 1 g PO ACHS Dexlansoprazole [Dexilant] 60 mg PO DAILY Albuterol Sulfate 1 each IH QID Benzonatate 100 mg PO TIDPRN PRN PRN Reason: Cough Prucalopride Succinate [Motegrity] 2 mg PO DAILY Alprazolam 1 mg [Xanax 1 mg] 2 mg PO QPM Prednisone 20 mg [Deltasone 20 mg] 20 mg PO DAILY 14 Days #20 tab Discontinued Doxycycline Hyclate 100 mg [Vibramycin 100 MG] 100 mg PO BID #14 tab Follow up with: LLUVIA CHILDERS DO [Primary Care Provider] -
== END 2020-01-23 20:15 | disposition home or self-care (01) | DRG 176 ==
LOC: ED 01:57 → MED SURG 04:34
PROVIDERS: ADMIT Family Medicine; ATTEND Family Medicine
DX: I26.99 Other pulmonary embolism without acute cor pulmonale (principal); J44.0 Chronic obstructive pulmonary disease with (acute) lower respiratory infection; J20.9 Acute bronchitis, unspecified; R07.9 Chest pain, unspecified; Z99.81 Dependence on supplemental oxygen; R05 Cough; Z79.899 Other long term (current) drug therapy; E03.9 Hypothyroidism, unspecified; D64.9 Anemia, unspecified
CPT/HCPCS: 36000; 36415; 71045; 71260; 80048; 80053; 83880; 84484; 85025; 85379; 85610; 86308; 87400; 87651; 93005; 93041; 93306; 93970; 94640; 94760; 94762; 96360; 96372; 99285; 99291; U0003; J1642; J1650; J2405; J2920; J2930; J7609; A9270-GY

== ENCOUNTER 2020-02-01 13:30 | Emergency (ER) | payer MEDICARE ==
--- NOTE | 2020-02-01 14:02 | ERPHSYRPT ---
- History of Present Illness Patient Subjective Stated Complaint: pt co increase after cleaning toliet yesterday with chemicals and not wearing a mask. pt was dx with a PE and this month. she also co pain to left leg, no injury Triage Nursing Assessment: pt alert, arrived per wc with home cpap in place, anxious,, resp labored with movement . chest clear. abd soft, strong radial pulse, slight edema to lower legs Physician History: 64 yo wf w dyspnea x 1 day. Pt states that she became dyspneic after cleaninbg her toilet. She has mild mid-sternal chest tightness wo radiation rated a 5 on scale. Pt denies N/V but states mild diaphoresis. She is on Eliquis for PE diagnosed on 01/23/20. Timing/Duration: yesterday Activities at Onset: other (Cleaning toilet) Severity of Dyspnea-Max: moderate Severity of Dyspnea-Current: mild Possible Cause: occasional episodes Modifying Factors: Improves With: activity Associated Symptoms: anxiety, chest pain/discomfort, sweating, tightness, No cough, No edema, No fever, No insomnia, No loss of appetite, No lightheadedness, No wheezing, No weakness, No ankle swelling, No chills, No hemoptysis, No calf pain, No dizziness, No heaviness, No heart racing, No lightheadedness, No leg swelling, No muscle spasms feet, No muscle spasms hands, No painful breathing, No productive cough Allergies/Adverse Reactions: sumatriptan [From Imitrex] Allergy (Intermediate, Verified 02/01/20 13:45) Rash codeine Allergy (Mild, Verified 02/01/20 13:45) Rash MAKES SICK nitrofurantoin [From Macrobid] Allergy (Unknown, Verified 02/01/20 13:45) sumatriptan succinate [From Imitrex] Allergy (Verified 02/01/20 13:45) morphine Adverse Reaction (Severe, Verified 02/01/20 13:45) Headache MIGRAINES fentanyl Adverse Reaction (Intermediate, Verified 02/01/20 13:45) Headache hydrocodone bitartrate [From Vicodin] Adverse Reaction (Mild, Verified 02/01/20 13:45) Vomiting hydromorphone [From Dilaudid] Adverse Reaction (Mild, Verified 02/01/20 13:45) pt states makes heache worse. Home Medications: Alprazolam 1 mg [Xanax 1 mg] 1 mg PO DAILY 02/17/13 [History] Polyethylene Glycol 3350 17 gm [Miralax Powder 17GM PACKET] 34 gm PO BID 11/15/14 [History] Sennosides/Docusate Sodium [Senokot-S Tablet] 1 tab PO DAILY 04/25/15 [History] Promethazine HCl 25 mg [Phenergan 25 mg] 25 mg PO Q4HPRN PRN 05/11/15 [History] Cetirizine HCl/Pseudoephedrine [Zyrtec-D Tablet] 1 each PO DAILY 02/03/16 [History] Aspirin 81 mg PO DAILY 09/11/16 [History] Levothyroxine Sodium 50 Mcg [Synthroid 50 Mcg] 50 mcg PO DAILY 07/06/17 [History] Linaclotide [Linzess] 290 mcg PO DAILY 10/07/17 [History] Rizatriptan Benzoate [Maxalt] 10 mg PO BID PRN PRN 06/23/18 [History] Fluticasone Propionate [Flonase NASAL] 2 spray NS DAILY 01/19/19 [History] Guaifenesin 600 mg ER [Mucinex 600MG ER Tabs] 600 mg PO DAILY 04/05/19 [History] Sucralfate 1 gm [Carafate 1 GM] 1 g PO ACHS 04/05/19 [History] Albuterol Sulfate 1 each IH QID 01/21/20 [History] Alprazolam 1 mg [Xanax 1 mg] 2 mg PO QPM 01/21/20 [History] Benzonatate 100 mg PO TIDPRN PRN 01/21/20 [History] Dexlansoprazole [Dexilant] 60 mg PO DAILY 01/21/20 [History] Prucalopride Succinate [Motegrity] 2 mg PO DAILY 01/21/20 [History] Rizatriptan Benzoate [Rizatriptan] 1 ea DAILY 02/01/20 [History] Hx Tetanus, Diphtheria Vaccination/Date Given: Yes Hx Influenza Vaccination/Date Given: Yes Hx Pneumococcal Vaccination/Date Given: Yes Immunizations Up to Date: Yes Travel Risk - International Travel Have you traveled outside of the country in past 3 weeks: No - Coronavirus Screening Are you exhibiting any of the following symptoms?: No Close contact with a COVID-19 positive Pt in past 14-21 Days: No - Review of Systems Constitutional: No Symptoms Eyes: No Symptoms Ears, Nose, & Throat: No Symptoms Respiratory: No Symptoms, Dyspnea, Dyspnea on Exertion (SMITH) Cardiac: No Symptoms, Chest Pain Abdominal/Gastrointestinal: No Symptoms Genitourinary Symptoms: No Symptoms Musculoskeletal: No Symptoms Skin: No Symptoms Neurological: No Symptoms Psychological: No Symptoms Endocrine: No Symptoms Hematologic/Lymphatic: No Symptoms Immunological/Allergic: No Symptoms - Past Medical History Pertinent Past Medical History: Yes Neurological History: No Pertinent History, Migraines ENT History: Cataracts, Other Cardiac History: No Pertinent History Respiratory History: Bronchitis, COPD, Pulmonary Embolism, Sleep Apnea, Other Endocrine Medical History: Hypothyroidism, Other Musculoskeletal History: Arthritis, Degenerative Disk Disease, Osteoarthritis, Other GI Medical History: GERD, Irritable Bowel, Ulcer, Other History: Other Psycho-Social History: Anxiety Female Reproductive Disorders: Other Other Medical History: Recurrent UTI,urine kidney/bladder problems recurrent. 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 TRACHEA MALASIA, recent bronchitis and pneumonia - Past Surgical History Past Surgical History: Yes Neuro Surgical History: No Pertinent History Cardiac: No Pertinent History Respiratory: No Pertinent History Gastrointestinal: Bowel Surgery, Cholecystectomy, Colon Resection Genitourinary: Other Musculoskeletal: No Pertinent History Female Surgical History: Hysterectomy Other Surgical History: COLONOSCOPIES, EGDs. Total colectomy. FEEDING TUBE FOR 4 YEARS, stretches of bladder and urethra, bowel obstructions x2, lithotripsy. bronch on 1320 - Social History Smoking Status: Never smoker Exposure to second hand smoke: No Alcohol Use: None Drug Use: none Patient Lives Alone: Yes Significant Family History: no pertinent family hx - Female History Hx Last Menstrual Period: psot Hx Now: No - Nursing Vital Signs Nursing Vital Signs: Initial Vital Signs Pulse Rate 109 H 02/01/20 13:33 Respiratory Rate 22 02/01/20 13:33 Blood Pressure 114/74 02/01/20 13:33 O2 Sat by Pulse Oximetry 96 02/01/20 13:33 Pain Scale Pain Intensity 0 - Physical Exam General Appearance: no apparent distress, anxiety Eye Exam: PERRL/EOMI, eyes nml inspection Ears, Nose, Throat Exam: hearing grossly normal, normal ENT inspection, normal pharynx Neck Exam: normal inspection, non-tender, supple, full range of motion, No Brudzinski, No Kernig's, No meningismus Respiratory Exam: normal breath sounds, lungs clear, airway intact, No respiratory distress Cardiovascular/Chest Exam: normal heart sounds, regular rate/rhythm, normal peripheral pulses, No murmur Abdominal/Gastrointestinal Exam: soft, normal bowel sounds, No tenderness Extremity Exam: non-tender, normal range of motion, normal inspection, normal capillary refill Peripheral Pulses Exam: carotid (R): 2+, carotid (L): 2+ Neurologic Exam: alert, 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, cooperative, manual arts therapist II-XII nml as tested, normal mood/affect, sensation nml, No motor deficits, No sensory deficit Skin Exam: normal color, warm, dry, No rash Lymphatic Exam: No adenopathy SpO2 Interpretation: normal SpO2: 96 O2 Delivery: Room Air - Course EKG Interpreted by Me: RATE (Sinus tach/[id number]/Normal QT-QTc/artifact/Low voltage) - Radiology Exams Chest X-ray Interpretation: Discussed w/ radiologist (Nothing acute) Ordered Tests: Active Orders 24 hr Category Date Time Status EKG-ER Only STAT Care 02/01/20 13:45 Completed CHEST 1 VIEW (PORTABLE) Stat Exams 02/01/20 13:47 Completed CBC W DIFF Stat Lab 02/01/20 14:00 Completed CMP Stat Lab 02/01/20 14:00 Completed NT PRO BNP Stat Lab 02/01/20 14:00 Completed PROTIME WITH INR Stat Lab 02/01/20 14:00 Completed PTT Stat Lab 02/01/20 14:00 Completed TROPONIN Q3H Lab 02/01/20 14:00 Completed Medication Summary Discontinued Medications Generic Name Dose Route Start Last Admin Trade Name Freq PRN Reason Stop Dose Admin Heparin Sodium (Beef Lung) Confirm 02/01/20 15:29 Heparin Lock Flush 100 Units/Ml 5ml Syringe Administered 02/01/20 15:30 Dose 500 units .ROUTE .[employer] Lab/Rad Data: Laboratory Result Diagrams 02/01/20 14:00 02/01/20 14:00 Laboratory Results 02/01/20 02/01/20 02/01/20 Range/Units 14:00 14:00 14:00 WBC (4.0-10.5) K/mm3 RBC (4.1-5.4) M/mm3 Hgb (12.0-16.0) gm/dl Hct (35-47) % MCV (78-100) fl MCH (26-32) pg MCHC (32-36) g/dl RDW (11.5-14.0) % Plt Count (150-450) K/mm3 MPV (7.5-11.0) fl Gran % (36.0-66.0) % Eos # (Auto) (0-0.5) Absolute Lymphs (auto) (1.0-4.6) Absolute Monos (auto) (0.0-1.3) Lymphocytes % (24.0-44.0) % Monocytes % (0.0-12.0) % Eosinophils % (0.00-5.0) % Basophils % (0.0-0.4) % Absolute Granulocytes (1.4-6.9) Basophils # (0-0.4) PT 12.8 H (9.95-12.35) SECONDS INR 1.13 (0.8-3.0) APTT 31.3 (25.3-37.0) SECONDS Sodium 138 (137-145) mmol/L Potassium 4.0 (3.5-5.1) mmol/L Chloride 112 H (98-107) mmol/L Carbon Dioxide 18 L (22-30) mmol/L Anion Gap 12.9 (5-15) MEQ/L BUN 27 H (7-17) mg/dL Creatinine 1.35 H (0.52-1.04) mg/dL Estimated GFR 42.0 ML/MIN Glucose 146 H (74-106) mg/dL Calcium 9.0 (8.4-10.2) mg/dL Total Bilirubin 0.40 (0.2-1.3) mg/dL AST 18 (14-36) U/L ALT 20 (0-35) U/L Alkaline Phosphatase 91 (38-126) U/L Troponin I < 0.012 (0.000-0.034) ng/mL NT-Pro-B Natriuret Pep 130 (0-900) pg/mL Serum Total Protein 7.0 (6.3-8.2) g/dL Albumin 4.1 (3.5-5.0) g/dL 02/01/20 Range/Units 14:00 WBC 7.7 (4.0-10.5) K/mm3 RBC 4.07 L (4.1-5.4) M/mm3 Hgb 11.6 L (12.0-16.0) gm/dl Hct 37.8 (35-47) % MCV 92.9 (78-100) fl MCH 28.5 (26-32) pg MCHC 30.7 L (32-36) g/dl RDW 15.5 H (11.5-14.0) % Plt Count 187 (150-450) K/mm3 MPV 10.7 (7.5-11.0) fl Gran % 92.2 H (36.0-66.0) % Eos # (Auto) 0.02 (0-0.5) Absolute Lymphs (auto) 0.36 L (1.0-4.6) Absolute Monos (auto) 0.19 (0.0-1.3) Lymphocytes % 4.7 L (24.0-44.0) % Monocytes % 2.5 (0.0-12.0) % Eosinophils % 0.3 (0.00-5.0) % Basophils % 0.3 (0.0-0.4) % Absolute Granulocytes 7.11 H (1.4-6.9) Basophils # 0.02 (0-0.4) PT (9.95-12.35) SECONDS INR (0.8-3.0) APTT (25.3-37.0) SECONDS Sodium (137-145) mmol/L Potassium (3.5-5.1) mmol/L Chloride (98-107) mmol/L Carbon Dioxide (22-30) mmol/L Anion Gap (5-15) MEQ/L BUN (7-17) mg/dL Creatinine (0.52-1.04) mg/dL Estimated GFR ML/MIN Glucose (74-106) mg/dL Calcium (8.4-10.2) mg/dL Total Bilirubin (0.2-1.3) mg/dL AST (14-36) U/L ALT (0-35) U/L Alkaline Phosphatase (38-126) U/L Troponin I (0.000-0.034) ng/mL NT-Pro-B Natriuret Pep (0-900) pg/mL Serum Total Protein (6.3-8.2) g/dL Albumin (3.5-5.0) g/dL - Progress Progress: improved Air Movement: good Progress Note: 02/01/20 15:23 Pt became painfree wo intevention. Counseled pt/family regarding: lab results, diagnosis, need for follow-up, rad results - Departure Departure Disposition: Home Clinical Impression: Chest pain, Anxiety Condition: Stable Critical Care Time: No Referrals: LLUVIA CHILDERS DO [Primary Care Provider] - Instructions: Shortness of Breath (Dyspnea) (DC), Chest Pain (DC), Exacerbation of COPD (DC) Additional Instructions: Follow up with your family MD in 1-2 days Return to ER for increasing chest pain or shortness of breath Continue with Daisy
--- NOTE | 2020-02-01 14:11 | XRAY ---
Indication: Chest pain. Comparison: January 21, 2020. Portable chest demonstrates normal heart, lungs, and bony thorax again with incidental right hilar calcified nodes and right Port-A-Cath. No new/acute findings.
[2020-02-01 14:19] LABS: Absolute Neutrophil Ct (ANC) 7.11 (1.4-6.9); BASOPHIL % 0.3 % (0.0-0.4); Basophil (Absolute #) 0.02 (0-0.4); Eosinophil % 0.3 % (0.00-5.0); Eosinophil (Absolute #) 0.02 (0-0.5); Hematocrit 37.8 % (35-47); Hemoglobin 11.6 gm/dl (12.0-16.0); Lymphocyte (Absolute #) 0.36 (1.0-4.6); Lymphocytes % 4.7 % (24.0-44.0); Mean Cell Volume 92.9 fl (78-100); Mean Corpuscular Hemoglobin 28.5 pg (26-32); Mean Corpuscular Hgb Concent. 30.7 g/dl (32-36); Mean Platelet Volume 10.7 fl (7.5-11.0); Monocyte (Absolute #) 0.19 (0.0-1.3); Monocytes % 2.5 % (0.0-12.0); Neutrophil % 92.2 % (36.0-66.0); Platelet Count 187 K/mm3 (150-450); Red Blood Count 4.07 M/mm3 (4.1-5.4); Red Cell Distribution Width 15.5 % (11.5-14.0); White Blood Count 7.7 K/mm3 (4.0-10.5)
[2020-02-01 14:32] LABS: PTT 31.3 SECONDS (25.3-37.0)
[2020-02-01 14:44] LABS: ALBUMIN 4.1 g/dL (3.5-5.0); ANION GAP 12.9 MEQ/L (5-15); BILIRUBIN,TOTAL 0.4 mg/dL (0.2-1.3); Creatinine 1 1.35 mg/dL (0.52-1.04)
[2020-02-01 15:19] VITALS: BP 147/89; PULSE 86
[2020-02-01 15:21] VITALS: O2SAT 96
[2020-02-01 15:29] LABS: INR 1.13 (0.8-3.0); PROTIME 12.8 SECONDS (9.95-12.35)
== END 2020-02-01 15:35 | disposition home or self-care (01) ==
LOC: ED 13:30
DX: R07.89 Other chest pain (principal); F41.9 Anxiety disorder, unspecified; Z79.01 Long term (current) use of anticoagulants; I26.99 Other pulmonary embolism without acute cor pulmonale; Z79.899 Other long term (current) drug therapy; E03.9 Hypothyroidism, unspecified
CPT/HCPCS: 36415; 71045; 80053; 83880; 84484; 85025; 85610; 85730; 93005; 99284; J1642

== ENCOUNTER 2020-02-12 10:31 | Emergency (ER) | payer MEDICARE ==
--- NOTE | 2020-02-12 10:42 | ERPHSYRPT ---
- History of Present Illness Time Seen by Provider: 02/12/20 10:40 Source: patient Exam Limitations: no limitations Patient Subjective Stated Complaint: pt here for increase sob all weekend, she frequents the er for the same problem, no fever, no cough Triage Nursing Assessment: pt alert, arrived per ambulance, face mask applied, resp easy, skin w/d/p, no edema Physician History: Patient is a 64-year-old female with a history of COPD presents to our ED via EMS with complaints of progressive shortness of breath. No chest pain. Symptoms have been worsening. No associated fever. Occasional dry cough. No nausea or vomiting. No diaphoresis. No diarrhea. No rash. Patient has been tested for Covid approximately 6 times. Patient states symptoms are similar to her COPD exacerbation. She does not typically require oxygen at home. Upon EMS arrival. Patient was 88% on room air based on her home pulse oximeter. Nonrebreather was applied. O2 sat on arrival was 95%. Patient currently wearing a mask not on oxygen. oxygen saturation 96%.. Patient voices no other complaints or concerns at this time. Timing/Duration: day(s) Severity: moderate Modifying Factors: Improves With: movement Associated Symptoms: cough, No nausea, No vomiting, No abdominal pain, No diaphoresis, No chills, No chest pain, No fever, No headaches, No loss of appetite, No malaise, No syncope, No seizure, No weakness Allergies/Adverse Reactions: sumatriptan [From Imitrex] Allergy (Intermediate, Verified 02/12/20 10:41) Rash codeine Allergy (Mild, Verified 02/12/20 10:41) Rash MAKES SICK nitrofurantoin [From Macrobid] Allergy (Unknown, Verified 02/12/20 10:41) sumatriptan succinate [From Imitrex] Allergy (Verified 02/12/20 10:41) morphine Adverse Reaction (Severe, Verified 02/12/20 10:41) Headache MIGRAINES fentanyl Adverse Reaction (Intermediate, Verified 02/12/20 10:41) Headache hydrocodone bitartrate [From Vicodin] Adverse Reaction (Mild, Verified 02/12/20 10:41) Vomiting hydromorphone [From Dilaudid] Adverse Reaction (Mild, Verified 02/12/20 10:41) pt states makes heache worse. Home Medications: Alprazolam 1 mg [Xanax 1 mg] 1 mg PO DAILY 02/17/13 [History] Polyethylene Glycol 3350 17 gm [Miralax Powder 17GM PACKET] 34 gm PO BID 03/01 [History] Sennosides/Docusate Sodium [Senokot-S Tablet] 1 tab PO DAILY 04/25/15 [History] Promethazine HCl 25 mg [Phenergan 25 mg] 25 mg PO Q4HPRN PRN 05/11/15 [History] Cetirizine HCl/Pseudoephedrine [Zyrtec-D Tablet] 1 each PO DAILY 02/03/16 [History] Aspirin 81 mg PO DAILY 09/11/16 [History] Levothyroxine Sodium 50 Mcg [Synthroid 50 Mcg] 50 mcg PO DAILY 07/06/17 [History] Linaclotide [Linzess] 290 mcg PO DAILY 10/07/17 [History] Rizatriptan Benzoate [Maxalt] 10 mg PO BID PRN PRN 06/23/18 [History] Fluticasone Propionate [Flonase NASAL] 2 spray NS DAILY 01/19/19 [History] Guaifenesin 600 mg ER [Mucinex 600MG ER Tabs] 600 mg PO DAILY 04/05/19 [History] Sucralfate 1 gm [Carafate 1 GM] 1 g PO ACHS 04/05/19 [History] Albuterol Sulfate 1 each IH QID 01/21/20 [History] Alprazolam 1 mg [Xanax 1 mg] 2 mg PO QPM 01/21/20 [History] Benzonatate 100 mg PO TIDPRN PRN 01/21/20 [History] Dexlansoprazole [Dexilant] 60 mg PO DAILY 01/21/20 [History] Prucalopride Succinate [Motegrity] 2 mg PO DAILY 01/21/20 [History] Rizatriptan Benzoate [Rizatriptan] 1 ea DAILY 02/01/20 [History] Hx Tetanus, Diphtheria Vaccination/Date Given: Yes Hx Influenza Vaccination/Date Given: Yes Hx Pneumococcal Vaccination/Date Given: Yes Immunizations Up to Date: Yes Travel Risk - International Travel Have you traveled outside of the country in past 3 weeks: No - Coronavirus Screening Are you exhibiting any of the following symptoms?: Yes Symptoms: Shortness of Breath Close contact with a COVID-19 positive Pt in past 14-21 Days: No - Review of Systems Constitutional: No Symptoms, No Fever, No Chills Eyes: No Symptoms Ears, Nose, & Throat: No Symptoms Respiratory: No Symptoms, No Cough, No Dyspnea Cardiac: No Symptoms, No Chest Pain, No Edema, No Syncope Abdominal/Gastrointestinal: No Symptoms, No Abdominal Pain, No Nausea, No Vomiting, No Diarrhea Genitourinary Symptoms: No Symptoms, No Dysuria Musculoskeletal: No Symptoms, No Back Pain, No Neck Pain Skin: No Symptoms, No Rash Neurological: No Symptoms, No Dizziness, No Focal Weakness, No Sensory Changes Psychological: No Symptoms Endocrine: No Symptoms Hematologic/Lymphatic: No Symptoms Immunological/Allergic: No Symptoms All Other Systems: Reviewed and Negative - Past Medical History Pertinent Past Medical History: Yes Neurological History: No Pertinent History, Migraines ENT History: Cataracts, Other Cardiac History: No Pertinent History Respiratory History: Bronchitis, COPD, Pulmonary Embolism, Sleep Apnea, Other Endocrine Medical History: Hypothyroidism, Other Musculoskeletal History: Arthritis, Degenerative Disk Disease, Osteoarthritis, Other GI Medical History: GERD, Irritable Bowel, Ulcer, Other History: Other Psycho-Social History: Anxiety Female Reproductive Disorders: Other Other Medical History: Recurrent UTI,urine kidney/bladder problems recurrent. 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 TRACHEA MALASIA, recent bronchitis and pneumonia - Past Surgical History Past Surgical History: Yes Neuro Surgical History: No Pertinent History Cardiac: No Pertinent History Respiratory: No Pertinent History Gastrointestinal: Bowel Surgery, Cholecystectomy, Colon Resection Genitourinary: Other Musculoskeletal: No Pertinent History Female Surgical History: Hysterectomy Other Surgical History: COLONOSCOPIES, EGDs. Total colectomy. FEEDING TUBE FOR 4 YEARS, stretches of bladder and urethra, bowel obstructions x2, lithotripsy. bronch on 1320 - Social History Smoking Status: Never smoker Exposure to second hand smoke: No Alcohol Use: None Drug Use: none Patient Lives Alone: Yes Significant Family History: no pertinent family hx - Female History Hx Last Menstrual Period: post - Nursing Vital Signs Nursing Vital Signs: Initial Vital Signs Temperature 97.6 F 12/28/20 10:33 Pulse Rate 110 H 02/12/20 10:33 Respiratory Rate 20 02/12/20 10:33 Blood Pressure 113/88 02/12/20 10:33 O2 Sat by Pulse Oximetry 95 02/12/20 10:33 Pain Scale Pain Intensity 3 - Physical Exam General Appearance: no apparent distress, alert Eye Exam: PERRL/EOMI, eyes nml inspection Ears, Nose, Throat Exam: normal ENT inspection, TMs normal, pharynx normal, moist mucous membranes Neck Exam: normal inspection, non-tender, supple, full range of motion Respiratory Exam: normal breath sounds, lungs clear, No respiratory distress Cardiovascular Exam: regular rate/rhythm, normal heart sounds, normal peripheral pulses Gastrointestinal/Abdomen Exam: soft, normal bowel sounds, No tenderness, No mass Back Exam: normal inspection, normal range of motion, No CVA tenderness, No vertebral tenderness Extremity Exam: normal inspection, normal range of motion, pelvis stable Neurologic Exam: alert, 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, cooperative, normal mood/affect, nml cerebellar function, nml station & gait, sensation nml, No motor deficits Skin Exam: normal color, warm, dry, No rash Lymphatic Exam: No adenopathy SpO2 Interpretation: normal SpO2: 95 O2 Delivery: Room Air - Course Nursing assessment & vital signs reviewed: Yes EKG Interpreted by Me: RATE ([id number]), Sinus Tach, NORMAL AXIS, NORMAL INTERVALS - Radiology Exams Chest X-ray Interpretation: Teleradiologist Report (New right base subsegmental atelectasis/scarring. Remaining heart lungs normal again with incidental right hilar calcified node and right Port-A-Cath.) - CT Exams Chest CT Interpretation: Tele-radiologist Report (Previous bilateral PE resolved. Sma ll hiatal hernia and lung granuloma.) Ordered Tests: Active Orders 24 hr Category Date Time Status Perfect Binder Operator STAT Care 02/12/20 10:36 Active EKG-ER Only STAT Care 02/12/20 10:35 Active IV Insertion STAT Care 02/12/20 10:35 Active Pulse Oximetry (ED) STAT Care 02/12/20 10:35 Active CHEST 1 VIEW (PORTABLE) Stat Exams 02/12/20 10:36 Completed CHEST WITH CONTRAST [CT] Stat Exams 02/12/20 11:37 Completed CBC W DIFF Stat Lab 02/12/20 11:10 Completed CMP Urgent Lab 02/12/20 11:10 Completed CULTURE,URINE Stat Lab 02/12/20 12:34 Received D-DIMER QUANTITATIVE Stat Lab 02/12/20 11:10 Completed MAGNESIUM Urgent Lab 02/12/20 11:10 Completed Manual Differential NC Stat Lab 02/12/20 11:10 Completed NT PRO BNP Urgent Lab 02/12/20 11:10 Completed TROPONIN Q3H Lab 02/12/20 11:10 Completed TROPONIN Q3H Lab 02/12/20 13:30 Completed TROPONIN Q3H Lab 02/12/20 16:45 Ordered TROPONIN Q3H Lab 02/12/20 19:45 Ordered TROPONIN Q3H Lab 02/12/20 22:45 Ordered UA W/RFX UR CULTURE Stat Lab 02/12/20 12:34 Completed Lab/Rad Data: Laboratory Result Diagrams 02/12/20 11:10 02/12/20 11:10 Laboratory Results 02/12/20 02/12/20 02/12/20 Range/Units 13:30 12:34 11:10 WBC (4.0-10.5) K/mm3 RBC (4.1-5.4) M/mm3 Hgb (12.0-16.0) gm/dl Hct (35-47) % MCV (78-100) fl MCH (26-32) pg MCHC (32-36) g/dl RDW (11.5-14.0) % Plt Count (150-450) K/mm3 MPV (7.5-11.0) fl Absolute Granulocytes (1.4-6.9) Segmented Neutrophils (36.0-66.0) % Band Neutrophils (0.0-2.0) % Lymphocytes (Manual) (24-44) % Monocytes (Manual) (0.0-12.0) % Basophils (Manual) (0.0-1.0) % Metamyelocytes % Platelet Estimate (NORMAL) RBC Morphology Poikilocytosis Ovalocytes D-Dimer (215-500) ng/mL Sodium 136 L (137-145) mmol/L Potassium 4.2 (3.5-5.1) mmol/L Chloride 109 H (98-107) mmol/L Carbon Dioxide 19 L (22-30) mmol/L Anion Gap 11.9 (5-15) MEQ/L BUN 32 H (7-17) mg/dL Creatinine 1.12 H (0.52-1.04) mg/dL Estimated GFR 52.1 ML/MIN Glucose 128 H (74-106) mg/dL Calcium 9.7 (8.4-10.2) mg/dL Magnesium 1.7 (1.6-2.3) mg/dL Total Bilirubin 0.50 (0.2-1.3) mg/dL AST 22 (14-36) U/L ALT 20 (0-35) U/L Alkaline Phosphatase 78 (38-126) U/L Troponin I < 0.012 < 0.012 (0.000-0.034) ng/mL NT-Pro-B Natriuret Pep 45.6 (0-900) pg/mL Serum Total Protein 6.8 (6.3-8.2) g/dL Albumin 4.0 (3.5-5.0) g/dL Urine Color [place] (YELLOW) Urine Appearance CLOUDY (CLEAR) Urine pH 5.0 (5-6) Ur Specific [place] 1.032 (1.005-1.025) Urine Protein 30 (Negative) Urine Ketones TRACE (NEGATIVE) Urine Blood SMALL (0-5) [place]/ul Urine Nitrite NEGATIVE (NEGATIVE) Urine Bilirubin SMALL (NEGATIVE) Urine Urobilinogen 2 (0-1) mg/dL Ur Leukocyte Esterase MODERATE (NEGATIVE) Urine WBC (Auto) 11-15 (0-5) /HPF Urine RBC (Auto) 26-50 (0-2) /HPF U Hyaline Cast (Auto) 0-2 (0-2) /LPF U Epithel Cells (Auto) RARE (FEW) /HPF Urine Bacteria (Auto) MODERATE (NEGATIVE) /HPF Uric Acid Cryst (Auto) 5-10 (NEGATIVE) /HPF Urine Mucus (Auto) SLIGHT (NEGATIVE) /HPF Urine Yeast (Budding) Few (NEGATIVE) /HPF Urine Culture Reflexed YES (NO) Urine Glucose NEGATIVE (NEGATIVE) mg/dL 02/12/20 02/12/20 Range/Units 11:10 11:10 WBC 8.4 (4.0-10.5) K/mm3 RBC 4.17 (4.1-5.4) M/mm3 Hgb 11.8 L (12.0-16.0) gm/dl Hct 38.4 (35-47) % MCV 92.1 (78-100) fl MCH 28.3 (26-32) pg MCHC 30.7 L (32-36) g/dl RDW 15.3 H (11.5-14.0) % Plt Count 124 L (150-450) K/mm3 MPV 12.0 H (7.5-11.0) fl Absolute Granulocytes 7.75 H (1.4-6.9) Segmented Neutrophils 83 H (36.0-66.0) % Band Neutrophils 9 H (0.0-2.0) % Lymphocytes (Manual) 2 L (24-44) % Monocytes (Manual) 4 (0.0-12.0) % Basophils (Manual) 1 (0.0-1.0) % Metamyelocytes 1 % Platelet Estimate DECREASED (NORMAL) RBC Morphology ABNORMAL Poikilocytosis 1+ Ovalocytes 1+ D-Dimer 956 H* (215-500) ng/mL Sodium (137-145) mmol/L Potassium (3.5-5.1) mmol/L Chloride (98-107) mmol/L Carbon Dioxide (22-30) mmol/L Anion Gap (5-15) MEQ/L BUN (7-17) mg/dL Creatinine (0.52-1.04) mg/dL Estimated GFR ML/MIN Glucose (74-106) mg/dL Calcium (8.4-10.2) mg/dL Magnesium (1.6-2.3) mg/dL Total Bilirubin (0.2-1.3) mg/dL AST (14-36) U/L ALT (0-35) U/L Alkaline Phosphatase (38-126) U/L Troponin I (0.000-0.034) ng/mL NT-Pro-B Natriuret Pep (0-900) pg/mL Serum Total Protein (6.3-8.2) g/dL Albumin (3.5-5.0) g/dL Urine Color (YELLOW) Urine Appearance (CLEAR) Urine pH (5-6) Ur Specific [place] (1.005-1.025) Urine Protein (Negative) Urine Ketones (NEGATIVE) Urine Blood (0-5) [place]/ul Urine Nitrite (NEGATIVE) Urine Bilirubin (NEGATIVE) Urine Urobilinogen (0-1) mg/dL Ur Leukocyte Esterase (NEGATIVE) Urine WBC (Auto) (0-5) /HPF Urine RBC (Auto) (0-2) /HPF U Hyaline Cast (Auto) (0-2) /LPF U Epithel Cells (Auto) (FEW) /HPF Urine Bacteria (Auto) (NEGATIVE) /HPF Uric Acid Cryst (Auto) (NEGATIVE) /HPF Urine Mucus (Auto) (NEGATIVE) /HPF Urine Yeast (Budding) (NEGATIVE) /HPF Urine Culture Reflexed (NO) Urine Glucose (NEGATIVE) mg/dL - Progress Progress: improved Progress Note: 02/12/20 14:18 Reassessed. She feels well. Patient ambulated in our ED. Patient denied shortness of breath. O2 sat remained 97 to 98%. No chest pain. Patient troponin negative x2. Patient requesting discharge. Patient agrees to follow- up with her primary care doctor within 48 hours for reevaluation. Counseled pt/family regarding: lab results, diagnosis, need for follow-up, rad results - Departure Departure Disposition: Home Clinical Impression: Hiatal hernia, Lung granuloma, Calcified lymph nodes, Shortness of breath Condition: Stable Critical Care Time: No Referrals: LLUVIA CHILDERS DO [Primary Care Provider] - Instructions: Shortness of Breath (Dyspnea) (DC) Additional Instructions: Discharge/Care Plan GEOVANNY FREY was seen on 02/12/20 in the Emergency Room. The patient was counseled regarding Diagnosis,Lab results, Imaging studies, need for follow up and when to return to the Emergency Room. Prescriptions given: Discharge Note I have spoken with the patient and/or caregivers. I have explained the patient's condition, diagnosis and treatment plan based on the information available to me at this time. I have answered the patient's and/or caregiver's questions and addressed any concerns. The patient and/or caregivers have as good understanding of the patient's diagnosis, condition and treatment plan as can be expected at this point. The vital signs have been stable. The patient's condition is stable and appropriate for discharge from the emergency department. The patient will pursue further outpatient evaluation with the primary care phys ician or other designated or consulting physician as outlined in the discharge instructions. The patient and/or caregivers are agreeable to this plan of care and follow-up instructions have been explained in detail. The patient and/or caregivers have received these instruction. The patient/and or caregivers are aware that any significant change in condition or worsening of symptoms should prompt an immediate return to this or the closest emergency department or call 911.
--- NOTE | 2020-02-12 10:56 | XRAY ---
Indication: Short of breath. Comparison: February 01, 2020. Portable chest demonstrates new right base subsegmental atelectasis/scarring. Remaining heart and lungs normal again with incidental right hilar calcified nodes and right Port-A-Cath.
[2020-02-12 12:14] LABS: Hematocrit 38.4 % (35-47); Hemoglobin 11.8 gm/dl (12.0-16.0); Mean Cell Volume 92.1 fl (78-100); Mean Corpuscular Hemoglobin 28.3 pg (26-32); Mean Corpuscular Hgb Concent. 30.7 g/dl (32-36); Platelet Count 124 K/mm3 (150-450); Red Blood Count 4.17 M/mm3 (4.1-5.4); Red Cell Distribution Width 15.3 % (11.5-14.0); White Blood Count 8.4 K/mm3 (4.0-10.5)
[2020-02-12 12:34] LABS: ALKALINE PHOSPHATASE 78 U/L (38-126); ANION GAP 11.9 MEQ/L (5-15); BLOOD UREA NITROGEN 32 mg/dL (7-17); CHLORIDE 109 mmol/L (98-107); Calcium 9.7 mg/dL (8.4-10.2); Carbon Dioxide 19 mmol/L (22-30); Creatinine 1 1.12 mg/dL (0.52-1.04); EST GLOMERULAR FILTRATION RATE 52.1 ML/MIN; Glucose 128 mg/dL (74-106); MAGNESIUM 1.7 mg/dL (1.6-2.3); NT PRO BNP 45.6 pg/mL (0-900); Potassium 4.2 mmol/L (3.5-5.1); SGOT/AST 22 U/L (14-36); SGPT/ALT 20 U/L (0-35); SODIUM 136 mmol/L (137-145); TROPONIN < 0.012 ng/mL (0.000-0.034); Total Protein 6.8 g/dL (6.3-8.2)
[2020-02-12 12:55] LABS: BAND 9 % (0.0-2.0); Basophil 1 % (0.0-1.0); Lymphocytes 2 % (24-44); Metamyelocyte 1 %; Monocyte 4 % (0.0-12.0); Neutrophils 83 % (36.0-66.0); Total Cells Counted 100
[2020-02-12 12:57] LABS: Ovalocytes 1+; Platelet Estimate DECREASED (NORMAL); Poikilocytosis 1+
[2020-02-12 12:58] LABS: Absolute Neutrophil Ct (ANC) 7.75 (1.4-6.9)
--- NOTE | 2020-02-12 13:31 | XRAY ---
Indication: Short of breath. Elevated d-dimer. Multiple contiguous axial images obtained through the chest using 80 cc Isovue 370 contrast and PE protocol. Comparison: January 21, 2020. There is good opacification of the pulmonary arteries to include the lobar and segmental branches. Previous bilateral pulmonary emboli have cleared. Heart is not enlarged. Aorta remains normal in course and caliber. Stable mediastinal and right hilar calcified nodes. No pathologic mediastinal/hilar lymphadenopathy. Stable small hiatal hernia. Lungs demonstrates stable minimal scattered fibrosis/scarring, right lower lobe subsegmental atelectasis, and calcified/noncalcified granulomas. No infiltrate or effusion. Bony thorax intact. Limited upper abdomen unremarkable. Impression: 1. Clearing of previous bilateral pulmonary emboli. No new pulmonary embolus. 2. Stable scattered fibrosis/scarring, right lower lobe subsegmental atelectasis, small hiatal hernia, and old granulomatous disease.
[2020-02-12 13:50] LABS: Appearance CLOUDY (CLEAR); Bacteria MODERATE /HPF (NEGATIVE); Bilirubin SMALL (NEGATIVE); Blood SMALL Ery/ul (0-5); Epithelial Cells RARE /HPF (FEW); Glucose NEGATIVE (NEGATIVE); Hyaline Casts 0-2 /LPF (0-2); Ketones TRACE (NEGATIVE); Leukocyte Esterase MODERATE (NEGATIVE); Mucus SLIGHT /HPF (NEGATIVE); Nitrite NEGATIVE (NEGATIVE); Protein,Urine Dip 30 (Negative); RBC 26-50 /HPF (0-2); Specific Gravity 1.032 (1.005-1.025); Urobilinogen 2 mg/dL (0-1)
[2020-02-12 13:59] LABS: Budding Yeast Few /HPF (NEGATIVE)
[2020-02-12 14:21] VITALS: BP 120/73; PULSE 100; O2SAT 94
[2020-02-12] MEDS ORDERED: KEFLEX 500 MG PO ONE (14:27)
[2020-02-12] MEDS ORDERED: KEFLEX 500 MG ONE (14:35)
== END 2020-02-12 14:46 | disposition home or self-care (01) ==
LOC: ED 10:31
DX: K44.9 Diaphragmatic hernia without obstruction or gangrene (principal); J84.10 Pulmonary fibrosis, unspecified; I89.8 Other specified noninfective disorders of lymphatic vessels and lymph nodes
CPT/HCPCS: 36000; 36415; 71045; 71260; 80053; 81001; 83735; 83880; 84484; 85025; 85379; 87077; 87086; 87186; 93005; 93041; 94760; 99284; J1642; A9270-GY

== ENCOUNTER 2020-03-07 21:02 | Emergency (ER) | payer MEDICARE ==
[2020-03-07] MEDS ORDERED: Zofran 4 MG/2 ML VIAL IV ONE (21:21)
[2020-03-07] MEDS ORDERED: Sodium Chloride 0.9% 1000 ML 1,000 ML IV STA (21:21)
[2020-03-07] MEDS ORDERED: Sodium Chloride 0.9% 1000 ML 1,000 ML ONE (21:27)
[2020-03-07] MEDS ORDERED: Zofran 4 MG/2 ML VIAL ONE (21:27)
[2020-03-07 21:45] LABS: Hematocrit 35.1 % (35-47); Hemoglobin 10.9 gm/dl (12.0-16.0); Mean Cell Volume 89.5 fl (78-100); Mean Corpuscular Hemoglobin 27.8 pg (26-32); Mean Corpuscular Hgb Concent. 31.1 g/dl (32-36); Mean Platelet Volume 10.8 fl (7.5-11.0); Platelet Count 158 K/mm3 (150-450); Red Blood Count 3.92 M/mm3 (4.1-5.4); Red Cell Distribution Width 14.4 % (11.5-14.0)
[2020-03-07 22:05] LABS: ALBUMIN 3.8 g/dL (3.5-5.0); ANION GAP 11.4 MEQ/L (5-15); BILIRUBIN,TOTAL 0.3 mg/dL (0.2-1.3); Calcium 8.7 mg/dL (8.4-10.2); EST GLOMERULAR FILTRATION RATE 59.3 ML/MIN; Potassium 3.5 mmol/L (3.5-5.1); Total Protein 6.5 g/dL (6.3-8.2)
--- NOTE | 2020-03-07 22:42 | ERPHSYRPT ---
- History of Present Illness Time Seen by Provider: 03/07/20 21:10 Historian: patient Exam Limitations: no limitations Patient Subjective Stated Complaint: pt states she fells like she has a bowel blockage. states no bm in 2 weeks even with enemas. states she vomits if she tries to eat. and has had a distended abd. Triage Nursing Assessment: pt alrt and oreinted, answers questions approp. pt ambulatory with slow steady gait noted. respirations nonlabored. skin warm and dry. abd distended with gurgling noted in all 4 quads. Physician History: This is a 64-year-old white female patient of Dr. Hidalgo who has had a cholecystectomy in the past and colonic resection. She has had a history of small bowel obstruction x2 in the past. Patient was seen by her primary care physician 6 days ago and was told she might have a fecal impaction. In the last several days the patient has used fleets enemas, MiraLAX orally and Senokot. She feels as though she is distended. Patient has a history of chronic recurring constipation. Patient also has a history of COPD, coronary disease, chronic kidney disease, chronic anxiety and panic attack issues as well as obesity. Patient is convinced that she has constipation because she has not had a bowel movement in 2 weeks but she has been having passage of flatus. She has had some intermittent nausea but no vomiting. Timing/Duration: week(s) (2) Activities at Onset: none Quality: pressure Abdominal Pain Onset Location: generalized abdomen Pain Radiation: no radiation Severity of Pain-Max: mild Severity of Pain-Current: mild Modifying Factors: Improves With: vomiting Associated Symptoms: loss of appetite, nausea, vomiting Previous symptoms: same symptoms as today Allergies/Adverse Reactions: sumatriptan [From Imitrex] Allergy (Intermediate, Verified 03/07/20 21:14) Rash codeine Allergy (Mild, Verified 03/07/20 21:14) Rash MAKES SICK nitrofurantoin [From Macrobid] Allergy (Unknown, Verified 03/07/20 21:14) sumatriptan succinate [From Imitrex] Allergy (Verified 03/07/20 21:14) morphine Adverse Reaction (Severe, Verified 03/07/20 21:14) Headache MIGRAINES fentanyl Adverse Reaction (Intermediate, Verified 03/07/20 21:14) Headache hydrocodone bitartrate [From Vicodin] Adverse Reaction (Mild, Verified 03/07/20 21:14) Vomiting hydromorphone [From Dilaudid] Adverse Reaction (Mild, Verified 03/07/20 21:14) pt states makes heache worse. Home Medications: Alprazolam 1 mg [Xanax 1 mg] 1 mg PO DAILY 02/17/13 [History] Polyethylene Glycol 3350 17 gm [Miralax Powder 17GM PACKET] 34 gm PO BID 11/15/14 [History] Sennosides/Docusate Sodium [Senokot-S Tablet] 1 tab PO DAILY 04/25/15 [History] Promethazine HCl 25 mg [Phenergan 25 mg] 25 mg PO Q4HPRN PRN 05/11/15 [History] Cetirizine HCl/Pseudoephedrine [Zyrtec-D Tablet] 1 each PO DAILY 02/03/16 [History] Aspirin 81 mg PO DAILY 09/11/16 [History] Levothyroxine Sodium 50 Mcg [Synthroid 50 Mcg] 50 mcg PO DAILY 07/06/17 [History] Linaclotide [Linzess] 290 mcg PO DAILY 10/07/17 [History] Rizatriptan Benzoate [Maxalt] 10 mg PO BID PRN PRN 06/23/18 [History] Fluticasone Propionate [Flonase NASAL] 2 spray NS DAILY 01/19/19 [History] Guaifenesin 600 mg ER [Mucinex 600MG ER Tabs] 600 mg PO DAILY 04/05/19 [History] Sucralfate 1 gm [Carafate 1 GM] 1 g PO ACHS 04/05/19 [History] Alprazolam 1 mg [Xanax 1 mg] 2 mg PO QPM 01/21/20 [History] Dexlansoprazole [Dexilant] 60 mg PO DAILY 01/21/20 [History] Prucalopride Succinate [Motegrity] 2 mg PO DAILY 01/21/20 [History] Rizatriptan Benzoate [Rizatriptan] 1 ea DAILY 02/01/20 [History] Fluticasone/Umeclidin/Vilanter [Trelegy Ellipta 100-62.5-25] 1 disk IH DAILY 03/01/20 [History] Prednisone 20 mg [Deltasone 20 mg] 10 mg PO DAILY 03/07/20 [History] Hx Tetanus, Diphtheria Vaccination/Date Given: Yes Hx Influenza Vaccination/Date Given: Yes Hx Pneumococcal Vaccination/Date Given: Yes Immunizations Up to Date: Yes Travel Risk - International Travel Have you traveled outside of the country in past 3 weeks: No - Coronavirus Screening Are you exhibiting any of the following symptoms?: No Symptoms: Loss of Taste or Smell Close contact with a COVID-19 positive Pt in past 14-21 Days: No - Review of Systems Constitutional: No Symptoms Eyes: No Symptoms Ears, Nose, & Throat: No Symptoms Respiratory: No Symptoms Cardiac: No Symptoms Abdominal/Gastrointestinal: Abdominal Pain, Nausea, Vomiting, Constipation Genitourinary Symptoms: No Symptoms Musculoskeletal: No Symptoms Skin: No Symptoms Neurological: No Symptoms Psychological: No Symptoms Endocrine: No Symptoms Hematologic/Lymphatic: No Symptoms Immunological/Allergic: No Symptoms All Other Systems: Reviewed and Negative - Past Medical History Pertinent Past Medical History: Yes Neurological History: No Pertinent History, Migraines ENT History: Cataracts, Other Cardiac History: No Pertinent History Respiratory History: Bronchitis, COPD, Pulmonary Embolism, Sleep Apnea, Other Endocrine Medical History: Hypothyroidism, Other Musculoskeletal History: Arthritis, Degenerative Disk Disease, Osteoarthritis, Other GI Medical History: GERD, Irritable Bowel, Ulcer, Other History: Other Psycho-Social History: Anxiety Female Reproductive Disorders: Other Other Medical History: Recurrent UTI,urine kidney/bladder problems recurrent. 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 TRACHEA MALASIA, recent bronchitis and pneumonia - Past Surgical History Past Surgical History: Yes Neuro Surgical History: No Pertinent History Cardiac: No Pertinent History Respiratory: No Pertinent History Gastrointestinal: Bowel Surgery, Cholecystectomy, Colon Resection Genitourinary: Other Musculoskeletal: No Pertinent History Female Surgical History: Hysterectomy Other Surgical History: COLONOSCOPIES, EGDs. Total colectomy. FEEDING TUBE FOR 4 YEARS, stretches of bladder and urethra, bowel obstructions x2, lithotripsy. bronch on 1320 - Social History Smoking Status: Never smoker Exposure to second hand smoke: No Alcohol Use: None Drug Use: none Patient Lives Alone: Yes Significant Family History: no pertinent family hx - Nursing Vital Signs Nursing Vital Signs: Initial Vital Signs Temperature 99.1 F 03/07/20 21:03 Pulse Rate 116 H 03/07/20 21:03 Respiratory Rate 18 03/07/20 21:03 Blood Pressure 106/81 03/07/20 21:03 O2 Sat by Pulse Oximetry 97 03/07/20 21:03 Pain Scale Pain Intensity 6 - Physical Exam General Appearance: no apparent distress, alert, anxiety Eye Exam: PERRL/EOMI, eyes nml inspection Ears, Nose, Throat Exam: normal ENT inspection, moist mucous membranes Neck Exam: normal inspection, non-tender, supple, full range of motion Respiratory Exam: normal breath sounds, lungs clear, airway intact, No chest tenderness, No respiratory distress Cardiovascular Exam: regular rate/rhythm, normal heart sounds, normal peripheral pulses Gastrointestinal/Abdomen Exam: soft, normal bowel sounds, tenderness (Diffuse but mild), No guarding, No rebound Pelvic Exam: not done Rectal Exam: not done Back Exam: normal inspection, normal range of motion, No CVA tenderness, No vertebral tenderness Extremity Exam: normal inspection, normal range of motion, pelvis stable Neurologic Exam: alert, 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, cooperative, normal mood/affect, nml cerebellar function, nml station & gait, sensation nml Skin Exam: normal color, warm, dry Lymphatic Exam: No adenopathy SpO2 Interpretation: borderline oxygenation SpO2: 97 O2 Delivery: Room Air - Course Nursing assessment & vital signs reviewed: Yes Ordered Tests: Active Orders 24 hr Category Date Time Status IV Insertion STAT Care 03/07/20 21:21 Active ABDOMEN AND PELVIS W/0 CONTRAS [CT] Stat Exams 03/07/20 21:21 Taken CHEST 1 VIEW (PORTABLE) Stat Exams 03/07/20 21:37 Taken AMYLASE Stat Lab 03/07/20 21:40 Completed CBC W DIFF Stat Lab 03/07/20 21:40 Completed CMP Stat Lab 03/07/20 21:40 Completed LIPASE Stat Lab 03/07/20 21:40 Completed Lactic Acid Stat Lab 03/07/20 21:45 Completed Manual Differential NC Stat Lab 03/07/20 21:40 Completed UA W/RFX UR CULTURE Stat Lab 03/07/20 23:11 Completed Medication Summary Generic Name Dose Route Start Last Admin Trade Name Freq PRN Reason Stop Dose Admin Ceftriaxone Sodium/Dextrose 1 g in 50 mls @ 100 mls/hr 03/07/20 23:46 Rocephin 1 Gm-D5w 50 Ml Bag IV 03/08/20 00:15 STAT STA Discontinued Medications Generic Name Dose Route Start Last Admin Trade Name Elton PRN Reason Stop Dose Admin Sodium Chloride 1,000 mls @ 999 mls/hr 03/07/20 21:21 03/07/20 21:30 Sodium Chloride 0.9% 1000 Ml IV 03/07/20 22:21 999 mls/hr .Q1H1M STA Administration Sodium Chloride Confirm 03/07/20 21:27 Sodium Chloride 0.9% 1000 Ml Administered 03/07/20 21:28 Dose 1,000 mls @ ud .ROUTE .STK-MED ONE Ondansetron HCl 4 mg 03/07/20 21:21 03/07/20 21:30 Zofran 4 Mg/2 Ml Vial IV 03/07/20 21:22 4 mg STAT ONE Administration Ondansetron HCl Confirm 03/07/20 21:27 Zofran 4 Mg/2 Ml Vial Administered 03/07/20 21:28 Dose 4 mg .ROUTE .STK-MED ONE Lab/Rad Data: Laboratory Result Diagrams 03/07/20 21:40 03/07/20 21:40 Laboratory Results 03/07/20 03/07/20 03/07/20 Range/Units 23:11 21:45 21:40 WBC (4.0-10.5) K/mm3 RBC (4.1-5.4) M/mm3 Hgb (12.0-16.0) gm/dl Hct (35-47) % MCV (78-100) fl MCH (26-32) pg MCHC (32-36) g/dl RDW (11.5-14.0) % Plt Count (150-450) K/mm3 MPV (7.5-11.0) fl Absolute Granulocytes (1.4-6.9) Segmented Neutrophils (36.0-66.0) % Lymphocytes (Manual) (24-44) % Monocytes (Manual) (0.0-12.0) % Eosinophils (Manual) (0.00-3.0) % Platelet Estimate (NORMAL) RBC Morphology Sodium 136 L (137-145) mmol/L Potassium 3.5 (3.5-5.1) mmol/L Chloride 111 H (98-107) mmol/L Carbon Dioxide 17 L (22-30) mmol/L Anion Gap 11.4 (5-15) MEQ/L BUN 28 H (7-17) mg/dL Creatinine 1.00 (0.52-1.04) mg/dL Estimated GFR 59.3 ML/MIN Glucose 155 H (74-106) mg/dL Lactic Acid 1.7 (0.4-2.0) Calcium 8.7 (8.4-10.2) mg/dL Total Bilirubin 0.30 (0.2-1.3) mg/dL AST 25 (14-36) U/L ALT 18 (0-35) U/L Alkaline Phosphatase 84 (38-126) U/L Serum Total Protein 6.5 (6.3-8.2) g/dL Albumin 3.8 (3.5-5.0) g/dL Amylase 79 (30-110) U/L Lipase 218 (23-300) U/L Urine Color YELLOW (YELLOW) Urine Appearance SLIGHTLY CLOUDY (CLEAR) Urine pH 5.0 (5-6) Ur Specific [place] 1.025 (1.005-1.025) Urine Protein NEGATIVE (Negative) Urine Ketones NEGATIVE (NEGATIVE) Urine Blood NEGATIVE (0-5) [place]/ul Urine Nitrite NEGATIVE (NEGATIVE) Urine Bilirubin NEGATIVE (NEGATIVE) Urine Urobilinogen NEGATIVE (0-1) mg/dL Ur Leukocyte Esterase MODERATE (NEGATIVE) Urine WBC (Auto) 16-25 (0-5) /HPF Urine RBC (Auto) 3-5 (0-2) /HPF U Epithel Cells (Auto) RARE (FEW) /HPF Urine Bacteria (Auto) NONE (NEGATIVE) /HPF Urine Mucus (Auto) SLIGHT (NEGATIVE) /HPF Urine Culture Reflexed NO (NO) Urine Glucose NEGATIVE (NEGATIVE) mg/dL 03/07/20 Range/Units 21:40 WBC 6.0 (4.0-10.5) K/mm3 RBC 3.92 L (4.1-5.4) M/mm3 Hgb 10.9 L (12.0-16.0) gm/dl Hct 35.1 (35-47) % MCV 89.5 (78-100) fl MCH 27.8 (26-32) pg MCHC 31.1 L (32-36) g/dl RDW 14.4 H (11.5-14.0) % Plt Count 158 (150-450) K/mm3 MPV 10.8 (7.5-11.0) fl Absolute Granulocytes 4.90 (1.4-6.9) Segmented Neutrophils 80 H (36.0-66.0) % Lymphocytes (Manual) 11 L (24-44) % Monocytes (Manual) 8 (0.0-12.0) % Eosinophils (Manual) 1 (0.00-3.0) % Platelet Estimate NORMAL (NORMAL) RBC Morphology NORMAL Sodium (137-145) mmol/L Potassium (3.5-5.1) mmol/L Chloride (98-107) mmol/L Carbon Dioxide (22-30) mmol/L Anion Gap (5-15) MEQ/L BUN (7-17) mg/dL Creatinine (0.52-1.04) mg/dL Estimated GFR ML/MIN Glucose (74-106) mg/dL Lactic Acid (0.4-2.0) Calcium (8.4-10.2) mg/dL Total Bilirubin (0.2-1.3) mg/dL AST (14-36) U/L ALT (0-35) U/L Alkaline Phosphatase (38-126) U/L Serum Total Protein (6.3-8.2) g/dL Albumin (3.5-5.0) g/dL Amylase (30-110) U/L Lipase (23-300) U/L Urine Color (YELLOW) Urine Appearance (CLEAR) Urine pH (5-6) Ur Specific [place] (1.005-1.025) Urine Protein (Negative) Urine Ketones (NEGATIVE) Urine Blood (0-5) [place]/ul Urine Nitrite (NEGATIVE) Urine Bilirubin (NEGATIVE) Urine Urobilinogen (0-1) mg/dL Ur Leukocyte Esterase (NEGATIVE) Urine WBC (Auto) (0-5) /HPF Urine RBC (Auto) (0-2) /HPF U Epithel Cells (Auto) (FEW) /HPF Urine Bacteria (Auto) (NEGATIVE) /HPF Urine Mucus (Auto) (NEGATIVE) /HPF Urine Culture Reflexed (NO) Urine Glucose (NEGATIVE) mg/dL - Progress Progress: unchanged Progress Note: 03/07/20 22:41 CAT scan of the abdomen and pelvis without contrast shows a negative CAT scan of the abdomen pelvis. The sigmoid anastomosis is intact and there is no evidence of bowel obstruction or complications. Today's CAT scan the abdomen and pelvis was compared to the CAT scan without contrast 07/07/2019 Counseled pt/family regarding: lab results, diagnosis, need for follow-up, rad results - Departure Departure Disposition: Home Clinical Impression: UTI (urinary tract infection) Condition: Stable Critical Care Time: No Referrals: LLUVIA CHILDERS DO [Primary Care Provider] - Additional Instructions: Drink plenty of fluids. Take medication as prescribed. Follow-up with your primary care physician for further management Prescriptions: Cefdinir 300 mg PO BID 7 Days #14 capsule
[2020-03-07 23:40] LABS: Eosinophil 1 % (0.00-3.0); Lymphocytes 11 % (24-44); Monocyte 8 % (0.0-12.0); Neutrophils 80 % (36.0-66.0); Platelet Estimate NORMAL (NORMAL); Total Cells Counted 100
[2020-03-07 23:42] LABS: Appearance SLIGHTLY CLOUDY (CLEAR); Bilirubin NEGATIVE (NEGATIVE); Blood NEGATIVE Ery/ul (0-5); Epithelial Cells RARE /HPF (FEW); Glucose NEGATIVE (NEGATIVE); Ketones NEGATIVE (NEGATIVE); Leukocyte Esterase MODERATE (NEGATIVE); Mucus SLIGHT /HPF (NEGATIVE); Nitrite NEGATIVE (NEGATIVE); Protein,Urine Dip NEGATIVE (Negative); Specific Gravity 1.025 (1.005-1.025); Urobilinogen NEGATIVE mg/dL (0-1)
[2020-03-07] MEDS ORDERED: ROCEPHIN 1 Gm-D5w 50 ml Bag** 1 G/50 ML IVPB IV STA (23:46)
[2020-03-07] MEDS ORDERED: ROCEPHIN 1 Gm-D5w 50 ml Bag** 1 G/50 ML IVPB IV ONE (23:50)
[2020-03-08 00:14] VITALS: BP 130/93; PULSE 93; O2SAT 94
--- NOTE | 2020-03-08 08:50 | XRAY ---
Indication: Abdomen pain 2 weeks with distention. Multiple contiguous axial images obtained through the abdomen and pelvis without contrast as ordered. Comparison: July 07, 2019. Lung bases demonstrate stable bibasilar subsegmental atelectasis/scarring. Left base demonstrates a few noncalcified micronodules unchanged dating back to May 06, 2017 and favored to be benign. No infiltrate or effusion. Heart is not enlarged. Stable small distal paraesophageal calcified node. Noncontrasted stomach and bowel loops nonobstructed again with previous colectomy. Intact sigmoid anastomosis. No free fluid/air. Again hysterectomy, cholecystectomy, and left lower quadrant/pelvic phleboliths. Remaining liver, pancreas, spleen, adrenal glands, kidneys, ureters, bladder, and aorta appear unremarkable for noncontrast exam. Osseous structures intact with stable L2-L3 and L5-S1 degenerative changes. Impression: 1. Stable benign left lung base noncalcified micronodules probably granulomatous. Stable paraesophageal calcified granuloma. 2. Stable colectomy with intact sigmoid anastomosis and chronic bony findings. 3. Remaining CT abdomen/pelvis without contrast exam is negative.
--- NOTE | 2020-03-08 08:57 | XRAY ---
Indication: Cough. Comparison: February 12, 2020. Portable chest unchanged again demonstrating right mid to lower lung subsegmental atelectasis/scarring, right hilar/mediastinal calcified nodes, and right Port-A-Cath. Remaining heart, left lung, and bony thorax normal.
== END 2020-03-08 00:40 | disposition home or self-care (01) ==
LOC: ED 21:02
DX: N39.0 Urinary tract infection, site not specified (principal); Z79.899 Other long term (current) drug therapy; R10.9 Unspecified abdominal pain; R11.2 Nausea with vomiting, unspecified; K59.00 Constipation, unspecified
CPT/HCPCS: 36000; 36415; 71045; 74176; 80053; 81001; 82150; 83605; 83690; 85025; 96360; 96365; 96374; 99284; J0696; J1642; J2405

== ENCOUNTER 2020-03-22 13:47 | Emergency (ER) | payer MEDICARE ==
[2020-03-22] MEDS ORDERED: solu-MEDROL 125 MG IV ONE (14:13)
[2020-03-22] MEDS ORDERED: DUONEB 0.5-3 MG/3 ml Neb IH ONE ×2 (14:13→14:20)
[2020-03-22] MEDS ORDERED: BABY ASPIRIN 81 MG CHEW PO ONE (14:14)
[2020-03-22] MEDS ORDERED: BABY ASPIRIN 81 MG CHEW ONE (14:23)
[2020-03-22] MEDS ORDERED: solu-MEDROL 125 MG ONE (14:23)
--- NOTE | 2020-03-22 14:34 | XRAY ---
Indication: Cough. Comparison: March 07, 2020. Portable chest unchanged again demonstrating right base subsegmental atelectasis/scarring, right perihilar calcified nodes, and right Port-A-Cath. Remaining heart, left lung, and bony thorax normal.
[2020-03-22 14:43] LABS: Hematocrit 39.2 % (35-47); Hemoglobin 11.9 gm/dl (12.0-16.0); Mean Cell Volume 91.6 fl (78-100); Mean Corpuscular Hemoglobin 27.8 pg (26-32); Mean Corpuscular Hgb Concent. 30.4 g/dl (32-36); Mean Platelet Volume 10.8 fl (7.5-11.0); Platelet Count 225 K/mm3 (150-450); Red Blood Count 4.28 M/mm3 (4.1-5.4); Red Cell Distribution Width 14.8 % (11.5-14.0); White Blood Count 8.7 K/mm3 (4.0-10.5)
--- NOTE | 2020-03-22 14:45 | ERPHSYRPT ---
- History of Present Illness Time Seen by Provider: 03/22/20 13:52 Patient Subjective Stated Complaint: PT states "I called Dr. Perry this morning at 8 am and she never got back to me and I have been having coughing fits and I just cannot breath.:" Triage Nursing Assessment: Pt presented alert and oriented X 3, skin pwd Pt ambulates with an uprigth steady gait, able to speak in clear full sentences pt tachypneic. PT stated when she stopped the steriods a week ago she has been coughing ever since. Physician History: 64 years old female with multiple medical problems including COPD chronic respiratory failure on oxygen, with recently taken steroid and antibiotics presented in the ER with chief complaint of increasing cough and shortness of breath for the last 2 days after she stopped high-dose steroids. Patient report coughing spell with clear to yellow sputum mild in amount and also having occasional blood streaking. Patient does take Eliquis. Denies any chest pain but has generalized soreness because of repeated coughing spells. No fever or chills reported. Patient was recently admitted with similar symptoms. Denies any sick contact. Patient also report scratchiness/soreness in the throat with feeling as if it is swollen. Timing/Duration: day(s) (2), gradual onset, worse Activities at Onset: rest Severity of Dyspnea-Max: moderate Severity of Dyspnea-Current: moderate Possible Cause: frequent episodes Modifying Factors: Improves With: oxygen. Worsens With: coughing Associated Symptoms: cough, chest pain/discomfort, wheezing, productive cough, No fever Allergies/Adverse Reactions: sumatriptan [From Imitrex] Allergy (Intermediate, Verified 03/07/20 21:14) Rash codeine Allergy (Mild, Verified 03/07/20 21:14) Rash MAKES SICK nitrofurantoin [From Macrobid] Allergy (Unknown, Verified 03/07/20 21:14) sumatriptan succinate [From Imitrex] Allergy (Verified 03/07/20 21:14) morphine Adverse Reaction (Severe, Verified 03/07/20 21:14) Headache MIGRAINES fentanyl Adverse Reaction (Intermediate, Verified 03/07/20 21:14) Headache hydrocodone bitartrate [From Vicodin] Adverse Reaction (Mild, Verified 03/07/20 21:14) Vomiting hydromorphone [From Dilaudid] Adverse Reaction (Mild, Verified 03/07/20 21:14) pt states makes heache worse. Home Medications: Alprazolam 1 mg [Xanax 1 mg] 1 mg PO DAILY 02/17/13 [History] Polyethylene Glycol 3350 17 gm [Miralax Powder 17GM PACKET] 34 gm PO BID 11/15/14 [History] Sennosides/Docusate Sodium [Senokot-S Tablet] 1 tab PO DAILY 04/25/15 [History] Promethazine HCl 25 mg [Phenergan 25 mg] 25 mg PO Q4HPRN PRN 05/11/15 [History] Cetirizine HCl/Pseudoephedrine [Zyrtec-D Tablet] 1 each PO DAILY 02/03/16 [History] Aspirin 81 mg PO DAILY 09/11/16 [History] Levothyroxine Sodium 50 Mcg [Synthroid 50 Mcg] 50 mcg PO DAILY 07/06/17 [History] Linaclotide [Linzess] 290 mcg PO DAILY 10/07/17 [History] Rizatriptan Benzoate [Maxalt] 10 mg PO BID PRN PRN 06/23/18 [History] Fluticasone Propionate [Flonase NASAL] 2 spray NS DAILY 01/19/19 [History] Guaifenesin 600 mg ER [Mucinex 600MG ER Tabs] 600 mg PO DAILY 04/05/19 [History] Sucralfate 1 gm [Carafate 1 GM] 1 g PO ACHS 04/05/19 [History] Alprazolam 1 mg [Xanax 1 mg] 2 mg PO QPM 01/21/20 [History] Dexlansoprazole [Dexilant] 60 mg PO DAILY 01/21/20 [History] Prucalopride Succinate [Motegrity] 2 mg PO DAILY 01/21/20 [History] Fluticasone/Umeclidin/Vilanter [Trelegy Ellipta 100-62.5-25] 1 disk IH DAILY 03/01/20 [History] Prednisone 20 mg [Deltasone 20 mg] 10 mg PO DAILY 03/07/20 [History] Hx Tetanus, Diphtheria Vaccination/Date Given: Yes Hx Influenza Vaccination/Date Given: Yes Hx Pneumococcal Vaccination/Date Given: Yes Immunizations Up to Date: Yes Travel Risk - International Travel Have you traveled outside of the country in past 3 weeks: No - Coronavirus Screening Are you exhibiting any of the following symptoms?: Yes Symptoms: Cough: New Onset Close contact with a COVID-19 positive Pt in past 14-21 Days: No - Review of Systems Constitutional: No Symptoms Eyes: No Symptoms Ears, Nose, & Throat: No Symptoms Respiratory: Cough, Dyspnea, Dyspnea on Exertion (SMITH), Wheezing Cardiac: No Symptoms Abdominal/Gastrointestinal: No Symptoms Genitourinary Symptoms: No Symptoms Musculoskeletal: No Symptoms Skin: No Symptoms Neurological: No Symptoms Psychological: No Symptoms Endocrine: No Symptoms Hematologic/Lymphatic: No Symptoms Immunological/Allergic: No Symptoms - Past Medical History Pertinent Past Medical History: Yes Neurological History: No Pertinent History, Migraines ENT History: Cataracts, Other Cardiac History: No Pertinent History Respiratory History: Bronchitis, COPD, Pulmonary Embolism, Sleep Apnea, Other Endocrine Medical History: Hypothyroidism, Other Musculoskeletal History: Arthritis, Degenerative Disk Disease, Osteoarthritis, Other GI Medical History: GERD, Irritable Bowel, Ulcer, Other History: Other Psycho-Social History: Anxiety Female Reproductive Disorders: Other Other Medical History: Recurrent UTI,urine kidney/bladder problems recurrent. 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 TRACHEA MALASIA, recent bronchitis and pneumonia - Past Surgical History Past Surgical History: Yes Neuro Surgical History: No Pertinent History Cardiac: No Pertinent History Respiratory: No Pertinent History Gastrointestinal: Bowel Surgery, Cholecystectomy, Colon Resection Genitourinary: Other Musculoskeletal: No Pertinent History Female Surgical History: Hysterectomy Other Surgical History: COLONOSCOPIES, EGDs. Total colectomy. FEEDING TUBE FOR 4 YEARS, stretches of bladder and urethra, bowel obstructions x2, lithotripsy. bronch on 1320 - Social History Smoking Status: Never smoker Exposure to second hand smoke: No Alcohol Use: None Drug Use: none Patient Lives Alone: Yes Significant Family History: no pertinent family hx - Female History Hx Now: No - Nursing Vital Signs Nursing Vital Signs: Initial Vital Signs Temperature 97.8 F 03/22/20 13:59 Pulse Rate 112 H 03/22/20 13:59 Respiratory Rate 28 H 03/22/20 13:59 Blood Pressure 104/70 03/22/20 13:59 O2 Sat by Pulse Oximetry 97 03/22/20 13:59 Pain Scale Pain Intensity 4 - Physical Exam General Appearance: no apparent distress, alert, anxiety Eye Exam: PERRL/EOMI, eyes nml inspection Ears, Nose, Throat Exam: hearing grossly normal, pharyngeal erythema Neck Exam: normal inspection, non-tender, supple, full range of motion Respiratory Exam: diminished breath sounds, wheezing Cardiovascular/Chest Exam: normal heart sounds, tachycardia Abdominal/Gastrointestinal Exam: soft, normal bowel sounds, No tenderness Extremity Exam: non-tender, normal range of motion Neurologic Exam: alert, 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, cooperative Skin Exam: normal color SpO2 Interpretation: normal SpO2: 97 - Course EKG Interpreted by Me: RATE (112), Sinus Tach, NORMAL AXIS, NORMAL INTERVALS, NORMAL QRS Ordered Tests: Active Orders 24 hr Category Date Time Status Multi Line Claims Adjuster STAT Care 03/22/20 14:13 Active EKG-ER Only STAT Care 03/22/20 14:13 Active IV Insertion STAT Care 03/22/20 14:13 Active Oxygen-ED Only Nasal Cannula 2 lpm Care 03/22/20 14:13 Active CHEST 1 VIEW (PORTABLE) Stat Exams 03/22/20 14:13 Completed BLOOD CULTURE Stat Lab 03/22/20 14:35 Received CBC W DIFF Stat Lab 03/22/20 14:13 Completed CMP Stat Lab 03/22/20 14:20 Completed Lactic Acid Stat Lab 03/22/20 14:25 Completed MAGNESIUM Stat Lab 03/22/20 14:20 Completed Manual Differential NC Stat Lab 03/22/20 14:13 Completed NT PRO BNP Stat Lab 03/22/20 14:20 Completed TROPONIN Q3H Lab 03/22/20 14:20 Completed TROPONIN Q3H Lab 03/22/20 17:15 Ordered TROPONIN Q3H Lab 03/22/20 20:15 Ordered TROPONIN Q3H Lab 03/22/20 23:15 Ordered TROPONIN Q3H Lab 03/23/20 02:15 Ordered Respiratory Therapy Assessment DAILY RT 03/22/20 15:07 Completed Medication Summary Discontinued Medications Generic Name Dose Route Start Last Admin Trade Name Freq PRN Reason Stop Dose Admin Albuterol/Ipratropium 3 ml 03/22/20 14:13 03/22/20 14:37 Duoneb 0.5-3 Mg/3 Ml Neb IH 03/22/20 14:14 3 ml STAT ONE Administration Albuterol/Ipratropium Confirm 03/22/20 14:20 Duoneb 0.5-3 Mg/3 Ml Neb Administered 03/22/20 14:21 Dose 3 ml IH .STK-MED ONE Aspirin 324 mg 03/22/20 14:14 03/22/20 14:24 Baby Aspirin 81 Mg Chew PO 03/22/20 14:15 324 mg STAT ONE Administration Aspirin Confirm 03/22/20 14:23 Baby Aspirin 81 Mg Chew Administered 03/22/20 14:24 Dose 324 mg .ROUTE .STK-MED ONE Methylprednisolone Sodium Succinate 125 mg 03/22/20 14:13 03/22/20 14:25 Solu-Medrol 125 Mg IV 03/22/20 14:14 125 mg STAT ONE Administration Methylprednisolone Sodium Succinate Confirm 03/22/20 14:23 Solu-Medrol 125 Mg Administered 03/22/20 14:24 Dose 125 mg .ROUTE .STK-MED ONE Lab/Rad Data: Laboratory Result Diagrams 03/22/20 14:13 03/22/20 14:20 Laboratory Results 03/22/20 03/22/20 03/22/20 Range/Units 14:25 14:20 14:20 WBC (4.0-10.5) K/mm3 RBC (4.1-5.4) M/mm3 Hgb (12.0-16.0) gm/dl Hct (35-47) % MCV (78-100) fl MCH (26-32) pg MCHC (32-36) g/dl RDW (11.5-14.0) % Plt Count (150-450) K/mm3 MPV (7.5-11.0) fl Absolute Granulocytes (1.4-6.9) Segmented Neutrophils (36.0-66.0) % Band Neutrophils (0.0-2.0) % Lymphocytes (Manual) (24-44) % Monocytes (Manual) (0.0-12.0) % Metamyelocytes % Platelet Estimate (NORMAL) RBC Morphology Poikilocytosis Anisocytosis Sodium 137 (137-145) mmol/L Potassium 4.6 (3.5-5.1) mmol/L Chloride 111 H (98-107) mmol/L Carbon Dioxide 18 L (22-30) mmol/L Anion Gap 13.6 (5-15) MEQ/L BUN 26 H (7-17) mg/dL Creatinine 1.17 H (0.52-1.04) mg/dL Estimated GFR 49.5 ML/MIN Glucose 129 H (74-106) mg/dL Lactic Acid 1.8 (0.4-2.0) Calcium 9.8 (8.4-10.2) mg/dL Magnesium 1.5 L (1.6-2.3) mg/dL Total Bilirubin 0.30 (0.2-1.3) mg/dL AST 25 (14-36) U/L ALT 17 (0-35) U/L Alkaline Phosphatase 81 (38-126) U/L Troponin I < 0.012 (0.000-0.034) ng/mL NT-Pro-B Natriuret Pep 85.8 (0-900) pg/mL Serum Total Protein 7.3 (6.3-8.2) g/dL Albumin 4.3 (3.5-5.0) g/dL 03/22/20 Range/Units 14:13 WBC 8.7 (4.0-10.5) K/mm3 RBC 4.28 (4.1-5.4) M/mm3 Hgb 11.9 L (12.0-16.0) gm/dl Hct 39.2 (35-47) % MCV 91.6 (78-100) fl MCH 27.8 (26-32) pg MCHC 30.4 L (32-36) g/dl RDW 14.8 H (11.5-14.0) % Plt Count 225 (150-450) K/mm3 MPV 10.8 (7.5-11.0) fl Absolute Granulocytes 7.59 H (1.4-6.9) Segmented Neutrophils 85 H (36.0-66.0) % Band Neutrophils 2 (0.0-2.0) % Lymphocytes (Manual) 6 L (24-44) % Monocytes (Manual) 5 (0.0-12.0) % Metamyelocytes 2 % Platelet Estimate NORMAL (NORMAL) RBC Morphology ABNORMAL Poikilocytosis RARE Anisocytosis 1+ Sodium (137-145) mmol/L Potassium (3.5-5.1) mmol/L Chloride (98-107) mmol/L Carbon Dioxide (22-30) mmol/L Anion Gap (5-15) MEQ/L BUN (7-17) mg/dL Creatinine (0.52-1.04) mg/dL Estimated GFR ML/MIN Glucose (74-106) mg/dL Lactic Acid (0.4-2.0) Calcium (8.4-10.2) mg/dL Magnesium (1.6-2.3) mg/dL Total Bilirubin (0.2-1.3) mg/dL AST (14-36) U/L ALT (0-35) U/L Alkaline Phosphatase (38-126) U/L Troponin I (0.000-0.034) ng/mL NT-Pro-B Natriuret Pep (0-900) pg/mL Serum Total Protein (6.3-8.2) g/dL Albumin (3.5-5.0) g/dL - Progress Progress: improved Air Movement: good Progress Note: 03/22/20 16:29 64 years old with chronic respiratory failure, COPD bronchitis currently on me dication and low-dose steroid is evaluated for worsening cough and shortness of breath. Patient is having coughing spells. She is taking Eliquis. EKG did not show any acute ischemic changes. Has negative troponins. Has mild hypomagnesemia, given replacement and will continue to go home. Chest x-ray did not show any acute infiltrative process. She is maintaining oxygen saturation on 2 L well above 95%. Not in any distress on reevaluation after steroid and breathing treatment. I have seen patient in the past in the ER as well and her symptoms are similar to this. She does have appointment with her dial printer in 10 days. Patient is offered observation admission but she wants to go home. I have discussed with Dr. Delong her PCP and she recommended putting her back on tapering dose of steroid and continue with doxycycline which she is on. I think this is reasonable. I have advised her to call her dial printer early Wednesday morning to have appointment earlier than 15 and follow-up with primary care Dr. Delong. Discussed signs symptoms of worsening needing return to ER which she seems understanding. Stable for discharge. Blood Culture(s) Obtained: No Antibiotics given: No Discussed with : Jodie Counseled pt/family regarding: lab results, diagnosis, need for follow-up, rad results - Departure Departure Disposition: Home Clinical Impression: COPD with acute bronchitis, Hypomagnesemia Condition: Stable Critical Care Time: No Referrals: LLUVIA PERRY DO [Primary Care Provider] - Follow Up with PCP/3 days Instructions: Chronic Obstructive Pulmonary Disease, Exacerbation of COPD (DC) Additional Instructions: Continue with current antibiotics. Continue with neb treatment every 4-6 hourly. Take tapering doses of steroid. Follow-up with primary care for r eevaluation early next week. Also call your dial printer Dr. Escalante to be seen earlier than 15th of this month. Return to ER for worsening cough shortness of breath or if develop fever chills/increased need of oxygen etc. Prescriptions: Prednisone 10 mg [Deltasone 10 mg] 10 mg PO DAILY 12 Days #30 tablet Magnesium Oxide 400 mg [Mag-Ox 400] 400 mg PO BID 30 Days #60 tablet
[2020-03-22 15:10] LABS: ALBUMIN 4.3 g/dL (3.5-5.0); ANION GAP 13.6 MEQ/L (5-15); BILIRUBIN,TOTAL 0.3 mg/dL (0.2-1.3); Calcium 9.8 mg/dL (8.4-10.2); Creatinine 1 1.17 mg/dL (0.52-1.04); EST GLOMERULAR FILTRATION RATE 49.5 ML/MIN; MAGNESIUM 1.5 mg/dL (1.6-2.3); NT PRO BNP 85.8 pg/mL (0-900); Potassium 4.6 mmol/L (3.5-5.1); Total Protein 7.3 g/dL (6.3-8.2)
[2020-03-22 15:32] LABS: BAND 2 % (0.0-2.0); Lymphocytes 6 % (24-44); Metamyelocyte 2 %; Monocyte 5 % (0.0-12.0); Neutrophils 85 % (36.0-66.0); Total Cells Counted 100
[2020-03-22 15:33] LABS: ANISOCYTOSIS 1+; Platelet Estimate NORMAL (NORMAL); Poikilocytosis RARE
[2020-03-22 15:36] LABS: Absolute Neutrophil Ct (ANC) 7.59 (1.4-6.9)
[2020-03-22] MEDS ORDERED: Magnesium 1 Gm / 100 Ml D5W*** 100 ML IV ONE ×2 (16:36→16:39)
[2020-03-22 17:48] VITALS: BP 106/78; PULSE 99; O2SAT 98
== END 2020-03-22 17:45 | disposition home or self-care (01) ==
LOC: ED 13:47
DX: J44.0 Chronic obstructive pulmonary disease with (acute) lower respiratory infection (principal); J20.9 Acute bronchitis, unspecified; E83.42 Hypomagnesemia; Z79.899 Other long term (current) drug therapy
CPT/HCPCS: 36000; 36415; 71045; 80053; 83605; 83735; 83880; 84484; 85025; 87040; 93005; 93041; 94640; 96374; 99284; J1642; J2930; J3475; A9270-GY

== ENCOUNTER 2020-05-03 14:55 | Observation (INO) | payer MEDICARE ==
[2020-05-03] MEDS ORDERED: Zofran 4 MG/2 ML VIAL IV ONE (15:21)
[2020-05-03] MEDS ORDERED: Pepcid 20 MG VIAL IV ONE ×2 (15:21→16:21)
[2020-05-03] MEDS ORDERED: Sodium Chloride 0.9% 1000 ML 1,000 ML IV STA (15:21)
--- NOTE | 2020-05-03 15:27 | ERPHSYRPT ---
- History of Present Illness Time Seen by Provider: 05/03/20 14:58 Patient Subjective Stated Complaint: Pt c/o of left ear pain, vomiting x3 days, abdomen is distended and painful Triage Nursing Assessment: Pt brought herself to the ER, tachycardic, coughing, short of breath, abdominal pain to all quadrants w/and w/o palpatation, left ear pain, abdomen is distended, pt had 3 bowel movements this AM, N&V Physician History: 64 years old female with history of multiple abdominal surgeries in the past, presented in the ER with 3 days history of generalized abdominal pain dull aching to sharp in nature, moderate intensity, aggravated with movements palpation and associated with multiple episodes of nonprojectile, nonbilious vomiting with no hematemesis. Patient also report having loose to semisolid multiple episodes of BMs. Denies any fever or chills. Patient reports having similar symptoms to weeks ago and was seen outpatient, received IV fluids and it recurred again this week. She is feeling fatigued tired and dehydrated. Denies any sick contact. She is also complaining of left earache since yesterday without any discharge. No sinus congestion. Timing/Duration: day(s) (3), gradual onset, worse Activities at Onset: rest Quality: sharpness Abdominal Pain Onset Location: generalized abdomen Pain Radiation: no radiation Severity of Pain-Max: moderate Severity of Pain-Current: moderate Modifying Factors: Worsens With: movement, palpation, vomiting Associated Symptoms: diarrhea, nausea, vomiting, No shortness of breath Previous symptoms: same symptoms as today Allergies/Adverse Reactions: sumatriptan [From Imitrex] Allergy (Intermediate, Verified 05/03/20 15:16) Rash codeine Allergy (Mild, Verified 05/03/20 15:16) Rash MAKES SICK nitrofurantoin [From Macrobid] Allergy (Unknown, Verified 05/03/20 15:16) sumatriptan succinate [From Imitrex] Allergy (Verified 05/03/20 15:16) morphine Adverse Reaction (Severe, Verified 05/03/20 15:16) Headache MIGRAINES fentanyl Adverse Reaction (Intermediate, Verified 05/03/20 15:16) Headache hydrocodone bitartrate [From Vicodin] Adverse Reaction (Mild, Verified 05/03/20 15:16) Vomiting hydromorphone [From Dilaudid] Adverse Reaction (Mild, Verified 05/03/20 15:16) pt states makes heache worse. Home Medications: Alprazolam 1 mg [Xanax 1 mg] 1 mg PO DAILY 02/17/13 [History] Polyethylene Glycol 3350 17 gm [Miralax Powder 17GM PACKET] 34 gm PO BID 11/15/14 [History] Sennosides/Docusate Sodium [Senokot-S Tablet] 1 tab PO DAILY 04/25/15 [History] Promethazine HCl 25 mg [Phenergan 25 mg] 25 mg PO Q4HPRN PRN 05/11/15 [History] Cetirizine HCl/Pseudoephedrine [Zyrtec-D Tablet] 1 each PO DAILY 02/03/16 [History] Aspirin 81 mg PO DAILY 09/11/16 [History] Levothyroxine Sodium 50 Mcg [Synthroid 50 Mcg] 50 mcg PO DAILY 07/06/17 [History] Linaclotide [Linzess] 290 mcg PO DAILY 10/07/17 [History] Rizatriptan Benzoate [Maxalt] 10 mg PO BID PRN PRN 06/23/18 [History] Fluticasone Propionate [Flonase NASAL] 2 spray NS DAILY 01/19/19 [History] Guaifenesin 600 mg ER [Mucinex 600MG ER Tabs] 600 mg PO DAILY 04/05/19 [History] Sucralfate 1 gm [Carafate 1 GM] 1 g PO ACHS 04/05/19 [History] Alprazolam 1 mg [Xanax 1 mg] 2 mg PO QPM 01/21/20 [History] Dexlansoprazole [Dexilant] 60 mg PO DAILY 01/21/20 [History] Prucalopride Succinate [Motegrity] 2 mg PO DAILY 01/21/20 [History] Fluticasone/Umeclidin/Vilanter [Trelegy Ellipta 100-62.5-25] 1 disk IH DAILY 03/01/20 [History] Prednisone 20 mg [Deltasone 20 mg] 10 mg PO DAILY 03/07/20 [History] Hx Tetanus, Diphtheria Vaccination/Date Given: Yes Hx Influenza Vaccination/Date Given: Yes Hx Pneumococcal Vaccination/Date Given: Yes Travel Risk - International Travel Have you traveled outside of the country in past 3 weeks: No - Coronavirus Screening Are you exhibiting any of the following symptoms?: No Close contact with a COVID-19 positive Pt in past 14-21 Days: No - Review of Systems Constitutional: Fatigue, Weakness Eyes: No Symptoms Ears, Nose, & Throat: Ear Pain, No Ear Discharge Respiratory: Dyspnea Cardiac: No Symptoms Abdominal/Gastrointestinal: Abdominal Pain, Nausea, Vomiting, Diarrhea Genitourinary Symptoms: No Symptoms Musculoskeletal: No Symptoms Skin: No Symptoms Neurological: No Symptoms Psychological: No Symptoms Endocrine: No Symptoms Hematologic/Lymphatic: No Symptoms Immunological/Allergic: No Symptoms - Past Medical History Pertinent Past Medical History: Yes Neurological History: No Pertinent History, Migraines ENT History: Cataracts, Other Cardiac History: No Pertinent History Respiratory History: Bronchitis, COPD, Pulmonary Embolism, Sleep Apnea, Other Endocrine Medical History: Hypothyroidism, Other Musculoskeletal History: Arthritis, Degenerative Disk Disease, Osteoarthritis, Other GI Medical History: GERD, Irritable Bowel, Ulcer, Other History: Other Psycho-Social History: Anxiety Female Reproductive Disorders: Other Other Medical History: Recurrent UTI,urine kidney/bladder problems recurrent. 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 TRACHEA MALASIA, recent bronchitis and pneumonia - Past Surgical History Past Surgical History: Yes Neuro Surgical History: No Pertinent History Cardiac: No Pertinent History Respiratory: No Pertinent History Gastrointestinal: Bowel Surgery, Cholecystectomy, Colon Resection Genitourinary: Other Musculoskeletal: No Pertinent History Female Surgical History: Hysterectomy Other Surgical History: COLONOSCOPIES, EGDs. Total colectomy. FEEDING TUBE FOR 4 YEARS, stretches of bladder and urethra, bowel obstructions x2, lithotripsy. bronch on 1320 - Social History Smoking Status: Never smoker Exposure to second hand smoke: No Alcohol Use: None Drug Use: none Patient Lives Alone: Yes Significant Family History: no pertinent family hx - Female History Hx Now: No - Nursing Vital Signs Nursing Vital Signs: Initial Vital Signs Temperature 98.4 F 05/03/20 15:03 Pulse Rate 114 H 05/03/20 15:03 Blood Pressure 116/69 05/03/20 15:03 O2 Sat by Pulse Oximetry 97 05/03/20 15:03 Pain Scale Pain Intensity 4 - Physical Exam General Appearance: no apparent distress, alert Eye Exam: PERRL/EOMI, eyes nml inspection Ears, Nose, Throat Exam: TMs normal, other (Diffuse erythema left auditory canal) Neck Exam: normal inspection, non-tender, supple, full range of motion Respiratory Exam: normal breath sounds, lungs clear Cardiovascular Exam: normal heart sounds, tachycardia Gastrointestinal/Abdomen Exam: tenderness (Generalized), distention (Yeah), No n ormal bowel sounds Back Exam: normal inspection, normal range of motion (Yeah yeah) Extremity Exam: normal inspection, normal range of motion Neurologic Exam: alert, 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, cooperative Skin Exam: normal color SpO2 Interpretation: normal SpO2: 97 O2 Delivery: Room Air Ordered Tests: Active Orders 24 hr Category Date Time Status IV Insertion STAT Care 05/03/20 15:21 Active NPO (ED) STAT Care 05/03/20 15:21 Active ABDOMEN AND PELVIS W/0 CONTRAS [CT] Stat Exams 05/03/20 15:22 Completed CBC W DIFF Stat Lab 05/03/20 15:50 Completed CMP Stat Lab 05/03/20 15:50 Completed LIPASE Stat Lab 05/03/20 15:50 Completed Lactic Acid Stat Lab 05/03/20 15:21 Ordered Manual Differential NC Stat Lab 05/03/20 15:50 Completed UA W/RFX UR CULTURE Stat Lab 05/03/20 15:22 Ordered Medication Summary Discontinued Medications Generic Name Dose Route Start Last Admin Trade Name Freq PRN Reason Stop Dose Admin Famotidine 20 mg 05/03/20 15:21 05/03/20 16:22 Pepcid 20 Mg Vial IV 05/03/20 15:22 20 mg STAT ONE Administration Famotidine Confirm 05/03/20 16:21 Pepcid 20 Mg Vial Administered 05/03/20 16:22 Dose 20 mg IV .STK-MED ONE Sodium Chloride 1,000 mls @ 999 mls/hr 05/03/20 15:21 05/03/20 16:22 Sodium Chloride 0.9% 1000 Ml IV 05/03/20 16:21 999 mls/hr .Q1H1M STA Administration Sodium Chloride Confirm 05/03/20 16:21 Sodium Chloride 0.9% 1000 Ml Administered 05/03/20 16:22 Dose 1,000 mls @ ud .ROUTE .STK-MED ONE Ondansetron HCl 4 mg 05/03/20 15:21 05/03/20 16:22 Zofran 4 Mg/2 Ml Vial IV 05/03/20 15:22 4 mg STAT ONE Administration Ondansetron HCl Confirm 05/03/20 16:21 Zofran 4 Mg/2 Ml Vial Administered 05/03/20 16:22 Dose 4 mg .ROUTE .STK-MED ONE Lab/Rad Data: Laboratory Result Diagrams 05/03/20 15:50 05/03/20 15:50 Laboratory Results 05/03/20 05/03/20 Range/Units 15:50 15:50 WBC 8.8 (4.0-10.5) K/mm3 RBC 4.27 (4.1-5.4) M/mm3 Hgb 11.6 L (12.0-16.0) gm/dl Hct 37.4 (35-47) % MCV 87.6 (78-100) fl MCH 27.2 (26-32) pg MCHC 31.0 L (32-36) g/dl RDW 14.5 H (11.5-14.0) % Plt Count 206 (150-450) K/mm3 MPV 10.9 (7.5-11.0) fl Absolute Granulocytes 8.0 H (1.4-6.9) Segmented Neutrophils 88 H (36.0-66.0) % Band Neutrophils 1 (0.0-2.0) % Lymphocytes (Manual) 5 L (24-44) % Monocytes (Manual) 5 (0.0-12.0) % Myelocytes 1 % Platelet Estimate NORMAL (NORMAL) RBC Morphology NORMAL Sodium 138 (137-145) mmol/L Potassium 4.3 (3.5-5.1) mmol/L Chloride 108 H (98-107) mmol/L Carbon Dioxide 16 L* (22-30) mmol/L Anion Gap 18.0 H (5-15) MEQ/L BUN 24 H (7-17) mg/dL Creatinine 1.21 H (0.52-1.04) mg/dL Estimated GFR 47.6 ML/MIN Glucose 126 H (74-106) mg/dL Calcium 9.6 (8.4-10.2) mg/dL Total Bilirubin 0.30 (0.2-1.3) mg/dL AST 23 (14-36) U/L ALT 18 (0-35) U/L Alkaline Phosphatase 83 (38-126) U/L Serum Total Protein 7.2 (6.3-8.2) g/dL Albumin 4.2 (3.5-5.0) g/dL Lipase 316 H (23-300) U/L - Progress Progress: improved, pain not gone completely, re-examined Progress Note: 05/03/20 17:24 64 years old with multiple abdominal surgeries in the past is evaluated for abdominal pain distention with vomiting and diarrhea for the last few days where she had to receive IV fluid outpatient but still getting worse. She is offered pain medication which she refused. She is given Zofran and fluid bolus, on reevaluation feeling some improvement. She has normal white count, stable hemoglobin. Chemistry profile showed mildly elevated lipase which I believe is secondary to her repeated vomitings and has finding consistent with dehydration with low bicarb, elevated anion gap and mildly elevated creatinine. CT showed mild sigmoid distention with diarrheal fluid. I believe patient has gastroenteritis causing dehydration. I would obtain C. difficile since it has been going on for almost a week. She is otherwise stable and I would not start her on antibiotics. Discussed with Dr. Nova and patient is being admitted for IV hydration. Discussed with : Olga Will see patient in: hospital (observation) Counseled pt/family regarding: lab results, diagnosis, rad results - Departure Departure Disposition: Observation Clinical Impression: [facility] (acute kidney injury), Gastroenteritis, Dehydration Abdominal pain Qualifiers: Abdominal location: generalized Qualified Code(s): R10.84 - Generalized abdominal pain Otitis externa, left Qualifiers: Otitis externa type: unspecified type Chronicity: acute Qualified Code(s): H60.502 - Unspecified acute noninfective otitis externa, left ear Condition: Stable Critical Care Time: No Referrals: LLUVIA CHILDERS DO [Primary Care Provider] -
[2020-05-03 15:59] LABS: Hematocrit 37.4 % (35-47); Hemoglobin 11.6 gm/dl (12.0-16.0); Mean Cell Volume 87.6 fl (78-100); Mean Corpuscular Hemoglobin 27.2 pg (26-32); Mean Platelet Volume 10.9 fl (7.5-11.0); Platelet Count 206 K/mm3 (150-450); Red Blood Count 4.27 M/mm3 (4.1-5.4); Red Cell Distribution Width 14.5 % (11.5-14.0); White Blood Count 8.8 K/mm3 (4.0-10.5)
[2020-05-03 16:18] LABS: ALBUMIN 4.2 g/dL (3.5-5.0); BILIRUBIN,TOTAL 0.3 mg/dL (0.2-1.3); Calcium 9.6 mg/dL (8.4-10.2); Creatinine 1 1.21 mg/dL (0.52-1.04); EST GLOMERULAR FILTRATION RATE 47.6 ML/MIN; Potassium 4.3 mmol/L (3.5-5.1); Total Protein 7.2 g/dL (6.3-8.2)
[2020-05-03] MEDS ORDERED: Sodium Chloride 0.9% 1000 ML 1,000 ML ONE (16:21)
[2020-05-03] MEDS ORDERED: Zofran 4 MG/2 ML VIAL ONE (16:21)
--- NOTE | 2020-05-03 17:03 | XRAY ---
Indication: Bloating and vomiting bile for 3 weeks. Multiple contiguous axial images obtained through the abdomen and pelvis without contrast. Comparison: March 07, 2020. Lung bases demonstrates minimal fibrosis/scarring without infiltrate or effusion. Heart is not enlarged. New small hiatal hernia. Stable small distal paraesophageal calcified node. Noncontrasted stomach and bowel loops remain nonobstructed again with total colectomy. Intact sigmoid anastomosis. Remaining sigmoid colon and rectum is now moderately fluid distended without bowel wall thickening favoring diarrhea. Again hysterectomy and cholecystectomy. Urinary bladder is empty. No free fluid/air. Remaining liver, pancreas, spleen, adrenal glands, kidneys, ureters, and aorta are unremarkable for noncontrast exam. Osseous structures intact again with L2-L3 and L5-S1 degenerative changes. Impression: 1. New fluid distended sigmoid colon and rectum favoring diarrhea. 2. Stable total colectomy with intact sigmoid anastomosis. 3. New small hiatal hernia. 4. Remaining CT abdomen/pelvis without contrast exam is negative.
[2020-05-03 17:11] LABS: BAND 1 % (0.0-2.0); Lymphocytes 5 % (24-44); Monocyte 5 % (0.0-12.0); Myelocyte 1 %; Neutrophils 88 % (36.0-66.0); Total Cells Counted 100
[2020-05-03 17:12] LABS: Platelet Estimate NORMAL (NORMAL)
[2020-05-03] MEDS ORDERED: Floxin Otic 5 ML OT ONE (17:23)
[2020-05-03] MEDS ORDERED: Ocuflox OPHTHALMIC 5 ML OP ONE (17:38)
[2020-05-03 18:44] LABS: INFLUENZA A NEGATIVE (NEGATIVE); INFLUENZA B NEGATIVE (NEGATIVE); RESPIRATORY SYNCTIAL VIRUS NEGATIVE (Negative)
[2020-05-03] MEDS ORDERED: TYLENOL 325 MG PO PRN (20:11)
[2020-05-03] MEDS ORDERED: MORPHINE SULFATE 2 MG INJ IV PRN (20:11)
[2020-05-03] MEDS ORDERED: DUONEB 0.5-3 MG/3 ml Neb IH PRN (20:11)
[2020-05-03] MEDS: Sodium Chloride 0.9% W/ 20 mEq KCl/LITER 1,000 ML IV SCH (21:27)
[2020-05-04] MEDS: Sodium Chloride 0.9% W/ 20 mEq KCl/LITER 1,000 ML IV SCH (05:42)
[2020-05-04 05:45] LABS: Appearance SLIGHTLY CLOUDY (CLEAR); Bilirubin NEGATIVE (NEGATIVE); Blood NEGATIVE Ery/ul (0-5); Epithelial Cells RARE /HPF (FEW); Glucose NEGATIVE (NEGATIVE); Ketones NEGATIVE (NEGATIVE); Leukocyte Esterase NEGATIVE (NEGATIVE); Mucus SLIGHT /HPF (NEGATIVE); Nitrite NEGATIVE (NEGATIVE); Protein,Urine Dip NEGATIVE (Negative); Specific Gravity 1.024 (1.005-1.025); Urobilinogen NEGATIVE mg/dL (0-1)
[2020-05-04 06:27] LABS: Hematocrit 36.4 % (35-47); Hemoglobin 11.1 gm/dl (12.0-16.0); Mean Cell Volume 89.2 fl (78-100); Mean Corpuscular Hemoglobin 27.2 pg (26-32); Mean Corpuscular Hgb Concent. 30.5 g/dl (32-36); Mean Platelet Volume 11.3 fl (7.5-11.0); Platelet Count 206 K/mm3 (150-450); Red Blood Count 4.08 M/mm3 (4.1-5.4); Red Cell Distribution Width 14.7 % (11.5-14.0)
[2020-05-04 06:39] LABS: ALBUMIN 3.5 g/dL (3.5-5.0); ANION GAP 12.3 MEQ/L (5-15); BILIRUBIN,TOTAL 0.2 mg/dL (0.2-1.3); Calcium 8.6 mg/dL (8.4-10.2); Creatinine 1 1.11 mg/dL (0.52-1.04); EST GLOMERULAR FILTRATION RATE 52.6 ML/MIN; Potassium 4.2 mmol/L (3.5-5.1); Total Protein 6.2 g/dL (6.3-8.2)
[2020-05-04] MEDS: PROVENTIL 2.5 MG/3 ML NEB IH SCH ×2 (06:54→10:42)
[2020-05-04] MEDS ORDERED: PATIENT OWN MEDICATION IH SCH ×2 (07:00→07:30)
[2020-05-04 07:54] LABS: Basophil 1 % (0.0-1.0); Eosinophil 1 % (0.00-3.0); Lymphocytes 19 % (24-44); Monocyte 5 % (0.0-12.0); Neutrophils 74 % (36.0-66.0); Platelet Estimate NORMAL (NORMAL); Total Cells Counted 100
[2020-05-04 08:47] LABS: 027 TOX PROD PRESUMPTIVE NEGATIVE (NEGATIVE); TOXIGENIC C. DIFF ORG NEGATIVE (NEGATIVE)
[2020-05-04] MEDS ORDERED: Ocuflox OPHTHALMIC 5 ML OP SCH (10:00)
[2020-05-04] MEDS ORDERED: PROTONIX 40 MG IV IV SCH (10:00)
[2020-05-04 12:39] VITALS: BP 102/58; PULSE 70; O2SAT 98
--- NOTE | 2020-05-20 10:04 | PCM.DS ---
Discharge Summary Date of Admission: 05/03/20 20:09 Date of Discharge: 05/09/2020 Admitting Physician: LLUVIA CHILDERS DO Primary Care Provider: LLUVIA CHILDERS DO Allergies Allergies sumatriptan [From Imitrex] Allergy (Intermediate, Verified 05/08/20 02:24) Rash codeine Allergy (Mild, Verified 05/08/20 02:24) Rash MAKES SICK nitrofurantoin [From Macrobid] Allergy (Unknown, Verified 05/08/20 02:24) sumatriptan succinate [From Imitrex] Allergy (Verified 05/08/20 02:24) morphine Adverse Reaction (Severe, Verified 05/08/20 02:24) Headache MIGRAINES fentanyl Adverse Reaction (Intermediate, Verified 05/08/20 02:24) Headache hydrocodone bitartrate [From Vicodin] Adverse Reaction (Mild, Verified 05/08/20 02:24) Vomiting hydromorphone [From Dilaudid] Adverse Reaction (Mild, Verified 05/08/20 02:24) pt states makes heache worse. Hospital Summary - Hospital Course Hospital Course: Patient was admitted after 2 ER visits for N/V of 3 week duration. 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 CT showed SBO and NGT was placed which drained bilious fluid. Patient required IV hydration and eventually was able to tolerate an increased diet. She also benefitted from IV solumedrol for chronic wheezing due to COPD.Symptoms improved and NGT pulled and she was discharged home to follow with Her GI specialist ,Dr Drummond in [place].Patient also has Hx DVT and is maintained on Eliquis but has not had any bleeding issues. - Vitals & Intake/Output Vital Signs: Vital Signs Temperature 98.5 F 05/04/20 12:00 Pulse Rate 70 05/04/20 12:00 Respiratory Rate 18 05/04/20 12:00 Blood Pressure 102/58 05/04/20 12:00 O2 Sat by Pulse Oximetry 98 05/04/20 12:00 - Lab Result Diagrams: 05/04/20 05:28 05/04/20 05:28 - Procedures and Test Procedures and Tests throughout Hospitalization: Therapy Orders & Screens 05/03/20 21:20 RT Screen per Nursing Assess ONCE Comment: Protocol Order Physician Instructions: Greater than 3 points order RT Admission Screen Reason For Exam: Triggered on Admission Diagnosis: dehydration, gastroenteritis Diagnosis: dehydration, gastroenteritis Pneumonia: No Home O2: Yes Asthma: No CHF: No Home CPAP/BIPAP: Yes Home Nebs/MDI: Yes Total Points: 15 05/03/20 22:41 Oxygen Nasal Cannula 2 lpm Comment: Diagnosis: dehydration, gastroenteritis Respiratory Therapy Assessment DAILY Comment: Diagnosis: dehydration, gastroenteritis 05/04/20 07:00 Respiratory MDI UD Comment: TRELEGY DAILY-PT OWN MED Diagnosis: dehydration, gastroenteritis Discharge Exam Neurologic Exam: alert, 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, cooperative Eye Exam: eyes nml inspection Ears, Nose, Throat Exam: other (NGT still in place,to be pulled now.) Neck Exam: normal inspection Respiratory Exam: other (no wheezing or ronchi,improved aeration) Cardiovascular Exam: regular rate/rhythm (no murmur) Gastrointestinal/Abdomen Exam: soft, distention Back Exam: normal inspection Extremity Exam: normal inspection Skin Exam: normal color, warm, dry Final Diagnosis/Problem List - Final Discharge Diagnosis/Problem (1) Small bowel obstruction Status: Resolved Assessment & Plan: will follow up with her GI Dr Drummond Code(s): K56.609 - UNSP INTESTNL OBST, UNSP TO PARTIAL VERSUS COMPLETE OBST (2) Vomiting Status: Resolved Onset Date: ~10/07/17 Code(s): R11.10 - VOMITING, UNSPECIFIED (3) COPD exacerbation Status: Chronic Assessment & Plan: improved on IV Solumedrol will take Prednisone in decreasing dose and follow with dr Escalante,[employer] Code(s): J44.1 - CHRONIC OBSTRUCTIVE PULMONARY DISEASE W (ACUTE) EXACERBATION (4) Hx pulmonary embolism Status: Chronic Assessment & Plan: continued on Eliquis without problems Code(s): Z86.711 - PERSONAL HISTORY OF PULMONARY EMBOLISM - Discharge Disposition: Home, Self-Care Condition: Stable Prescriptions: New Ofloxacin Ophth 5 ml [Ocuflox OPHTHALMIC 5 ML] 5 ml OP DAILY bottle Continue ALPRAZolam 1 MG [Xanax 1 mg] 1 mg PO DAILY Polyethylene Glycol 3350 17 gm [Miralax Powder 17GM PACKET] 34 gm PO BID Sennosides/Docusate Sodium [Senokot-S Tablet] 1 tab PO DAILY Promethazine HCl 25 mg [Phenergan 25 mg] 25 mg PO Q4HPRN PRN PRN Reason: Nausea Cetirizine HCl/Pseudoephedrine [Zyrtec-D Tablet] 1 each PO DAILY Aspirin 81 mg PO DAILY Levothyroxine Sodium 50 Mcg [Synthroid 50 Mcg] 50 mcg PO DAILY Linaclotide [Linzess] 290 mcg PO DAILY Rizatriptan Benzoate [Maxalt] 10 mg PO BID PRN PRN PRN Reason: MIGRAINE Fluticasone Propionate [Flonase NASAL] 2 spray NS DAILY Guaifenesin 600 mg ER [Mucinex 600MG ER Tabs] 600 mg PO DAILY Sucralfate 1 gm [Carafate 1 GM] 1 g PO ACHS Dexlansoprazole [Dexilant] 60 mg PO DAILY Prucalopride Succinate [Motegrity] 2 mg PO DAILY ALPRAZolam 1 MG [Xanax 1 mg] 2 mg PO QPM Apixaban [Eliquis] 5 mg PO BID 30 Days #80 tablet Fluticasone/Umeclidin/Vilanter [Trelegy Ellipta 100-62.5-25] 1 disk IH DAILY Prednisone 10 mg [Deltasone 10 mg] 10 mg PO DAILY 12 Days #30 tablet Magnesium Oxide 400 mg [Mag-Ox 400] 400 mg PO BID 30 Days #60 tablet Instructions: Acute Abdomen (Belly Pain), Adult (DC), Outer Ear Infection (DC) Follow up with: PAWEL WALLS [ACTIVE STAFF] - 05/13/20 9:00 am Forms: Discharge Instructions
== END 2020-05-04 12:00 | disposition home or self-care (01) ==
LOC: ED 14:55 → MED SURG 20:09
PROVIDERS: ADMIT Family Medicine; ATTEND Family Medicine
DX: K56.609 Unspecified intestinal obstruction, unspecified as to partial versus complete obstruction (principal); K52.9 Noninfective gastroenteritis and colitis, unspecified; R11.10 Vomiting, unspecified; J44.1 Chronic obstructive pulmonary disease with (acute) exacerbation; H92.02 Otalgia, left ear; E86.0 Dehydration; Z79.899 Other long term (current) drug therapy; R53.83 Other fatigue; R53.1 Weakness; Z86.711 Personal history of pulmonary embolism; G47.30 Sleep apnea, unspecified; Z90.49 Acquired absence of other specified parts of digestive tract
CPT/HCPCS: 0241U; 36000; 36415; 74176; 80053; 81001; 83605; 83690; 85025; 87493; 94640; 94760; 96360; 96374; 96375; 99285; G0378; J1642; J2405; J7609; A9270-GY

== ENCOUNTER 2020-05-08 02:19 | Observation (INO) | payer MEDICARE ==
[2020-05-08] MEDS ORDERED: Sodium Chloride 0.9% 1000 ML 1,000 ML IV STA (02:31)
[2020-05-08] MEDS ORDERED: Sodium Chloride 0.9% 1000 ML 1,000 ML ONE (02:56)
--- NOTE | 2020-05-08 03:17 | ERPHSYRPT ---
- History of Present Illness Time Seen by Provider: 05/08/20 02:30 Historian: patient Exam Limitations: no limitations Patient Subjective Stated Complaint: Patient states " I have been having N/V for last 3 weeks. I was just discharged on Wednesday from [facility]. I had no vomiting on Wednesday so they sent me home. I started having N/V again yesterday so I called my GI today from [facility] and they told me I should have never been discharged from hospital and to go back to ER." Triage Nursing Assessment: Patient arrived to ED via ambulance. Patient A/O times 4. Patient able to follow directions without difficulty. Patient with 3 assist from gurney to bed. Patient lungs diminished A/P throughout. Patient denies SOB. Patient denies any chest pain. Cap refill < 3 seconds. No S/S of acute respiratory distress noted. + BS times 4 quads. ABD soft, distended in which patient states is her norm because she has had so many surgeries she can't have anymore. Patient denies constipation or loose stools. Patient with no dependent edema noted. + Radial and pedal pulses noted. Patient denies any trauma or injury to ABD. Patient has tenderness upon palpitation of ABD which is also normal. Patient denies pain or burning upon urination. Patient denies any flank or back pain. Patient denies any new pain or discomfort. Physician History: Patient is a 64-year-old female presents to our ED via EMS for evaluation of na usea vomiting. Patient was administered Zofran. Nausea improved somewhat. Patient states she has been vomiting intermittently for the past 3 weeks. She was admitted to our hospital recently. Patient was discharged home this past Wednesday. Patient states she was feeling better as she had not vomited. However nausea vomiting recurred today. Patient called her GI physician in [place] who advised her to come to our ED. Patient states her abdomen is distended. Mild abdominal pain. Patient has history of multiple abdominal surgeries with subsequent partial small bowel obstructions. Patient feels she is reexperiencing the same today. Patient states that her surgeon advised her not to have any more abdominal surgeries. No trauma. No fever. No diarrhea or rash. Symptoms are mild to moderate in intensity. No specific worsening improving factors. Patient voices no other complaints or concerns at this time. Patient's primary care doctor is Dr. Hidalgo. Timing/Duration: today Activities at Onset: none Quality: aching, fullness Abdominal Pain Onset Location: generalized abdomen Pain Radiation: no radiation Severity of Pain-Max: moderate Severity of Pain-Current: mild Modifying Factors: Improves With: nothing Associated Symptoms: denies symptoms, No chest pain, No diaphoresis, No diarrhea, No fatigue, No headache, No heartburn, No neck pain, No shortness of breath, No syncope Previous symptoms: same symptoms as today Allergies/Adverse Reactions: sumatriptan [From Imitrex] Allergy (Intermediate, Verified 05/08/20 02:24) Rash codeine Allergy (Mild, Verified 05/08/20 02:24) Rash MAKES SICK nitrofurantoin [From Macrobid] Allergy (Unknown, Verified 05/08/20 02:24) sumatriptan succinate [From Imitrex] Allergy (Verified 05/08/20 02:24) morphine Adverse Reaction (Severe, Verified 05/08/20 02:24) Headache MIGRAINES fentanyl Adverse Reaction (Intermediate, Verified 05/08/20 02:24) Headache hydrocodone bitartrate [From Vicodin] Adverse Reaction (Mild, Verified 05/08/20 02:24) Vomiting hydromorphone [From Dilaudid] Adverse Reaction (Mild, Verified 05/08/20 02:24) pt states makes heache worse. Home Medications: Alprazolam 1 mg [Xanax 1 mg] 1 mg PO DAILY 02/17/13 [History] Polyethylene Glycol 3350 17 gm [Miralax Powder 17GM PACKET] 34 gm PO BID 11/15/14 [History] Sennosides/Docusate Sodium [Senokot-S Tablet] 1 tab PO DAILY 04/25/15 [History] Promethazine HCl 25 mg [Phenergan 25 mg] 25 mg PO Q4HPRN PRN 05/11/15 [History] Cetirizine HCl/Pseudoephedrine [Zyrtec-D Tablet] 1 each PO DAILY 02/03/16 [History] Aspirin 81 mg PO DAILY 09/11/16 [History] Levothyroxine Sodium 50 Mcg [Synthroid 50 Mcg] 50 mcg PO DAILY 07/06/17 [History] Linaclotide [Linzess] 290 mcg PO DAILY 10/07/17 [History] Rizatriptan Benzoate [Maxalt] 10 mg PO BID PRN PRN 06/23/18 [History] Fluticasone Propionate [Flonase NASAL] 2 spray NS DAILY 01/19/19 [History] Guaifenesin 600 mg ER [Mucinex 600MG ER Tabs] 600 mg PO DAILY 04/05/19 [Hi story] Sucralfate 1 gm [Carafate 1 GM] 1 g PO ACHS 04/05/19 [History] Alprazolam 1 mg [Xanax 1 mg] 2 mg PO QPM 01/21/20 [History] Dexlansoprazole [Dexilant] 60 mg PO DAILY 01/21/20 [History] Prucalopride Succinate [Motegrity] 2 mg PO DAILY 01/21/20 [History] Fluticasone/Umeclidin/Vilanter [Trelegy Ellipta 100-62.5-25] 1 disk IH DAILY 03/01/20 [History] Hx Tetanus, Diphtheria Vaccination/Date Given: Yes Hx Influenza Vaccination/Date Given: Yes Hx Pneumococcal Vaccination/Date Given: Yes Immunizations Up to Date: Yes Travel Risk - International Travel Have you traveled outside of the country in past 3 weeks: No - Coronavirus Screening Are you exhibiting any of the following symptoms?: No Close contact with a COVID-19 positive Pt in past 14-21 Days: No - Review of Systems Constitutional: No Symptoms, No Fever, No Chills Eyes: No Symptoms Ears, Nose, & Throat: No Symptoms Respiratory: No Symptoms, No Cough, No Dyspnea Cardiac: No Symptoms, No Chest Pain, No Edema, No Syncope Abdominal/Gastrointestinal: No Symptoms, No Abdominal Pain, No Nausea, No Vomiting, No Diarrhea Genitourinary Symptoms: No Symptoms, No Dysuria Musculoskeletal: No Symptoms, No Back Pain, No Neck Pain Skin: No Symptoms, No Rash Neurological: No Symptoms, No Dizziness, No Focal Weakness, No Sensory Changes Psychological: No Symptoms Endocrine: No Symptoms Hematologic/Lymphatic: No Symptoms Immunological/Allergic: No Symptoms All Other Systems: Reviewed and Negative - Past Medical History Pertinent Past Medical History: Yes Neurological History: Migraines ENT History: Cataracts Cardiac History: No Pertinent History Respiratory History: Bronchitis, COPD, Pulmonary Embolism Endocrine Medical History: Hypothyroidism Musculoskeletal History: Osteoarthritis GI Medical History: GERD, Other History: Other Psycho-Social History: Anxiety Female Reproductive Disorders: No Pertinent History Other Medical History: frequent uti's, chronic aseudyo obstruction, blood clot - Past Surgical History Past Surgical History: Yes Neuro Surgical History: No Pertinent History Cardiac: No Pertinent History Respiratory: No Pertinent History Gastrointestinal: Cholecystectomy, Other Genitourinary: No Pertinent History Musculoskeletal: No Pertinent History Female Surgical History: No Pertinent History Other Surgical History: all of large intestine removed - Social History Smoking Status: Never smoker Exposure to second hand smoke: Yes Alcohol Use: None Drug Use: none Patient Lives Alone: No Significant Family History: no pertinent family hx - Female History Hx Last Menstrual Period: Hysterectomy - Nursing Vital Signs Nursing Vital Signs: Initial Vital Signs Temperature 98.8 F 05/08/20 02:26 Pulse Rate 101 H 05/08/20 02:26 Respiratory Rate 18 05/08/20 02:26 Blood Pressure 127/82 05/08/20 02:26 O2 Sat by Pulse Oximetry 97 05/08/20 02:26 Pain Scale Pain Intensity 8 - Physical Exam General Appearance: no apparent distress, alert Eye Exam: PERRL/EOMI, eyes nml inspection Ears, Nose, Throat Exam: normal ENT inspection, pharynx normal, moist mucous membranes Neck Exam: normal inspection, non-tender, supple, full range of motion Respiratory Exam: normal breath sounds, lungs clear, No respiratory distress Cardiovascular Exam: regular rate/rhythm, normal heart sounds Gastrointestinal/Abdomen Exam: soft, distention, No tenderness, No mass, No rebound, No organomegaly, No splenomegaly Back Exam: normal inspection, normal range of motion, No CVA tenderness, No vertebral tenderness Extremity Exam: normal inspection, normal range of motion, pelvis stable Neurologic Exam: alert, 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, cooperative, normal mood/affect, nml cerebellar function, sensation nml, No motor deficits Skin Exam: normal color, warm, dry Lymphatic Exam: No adenopathy SpO2 Interpretation: normal SpO2: 97 O2 Delivery: Room Air - Course Nursing assessment & vital signs reviewed: Yes - CT Exams Abdomen/Pelvis CT Interpretation: Tele-radiologist Report (Distended small bowel within the right side of the abdomen measuring 3.2 cm in diameter with transition zone in the right lower quadrant consistent with early or partial small bowel obstruction. Previously distended rectum is no longer identified.) Ordered Tests: Active Orders 24 hr Category Date Time Status IV Insertion STAT Care 05/08/20 02:31 Active NGT [Gastric Tube Insertion] STAT Care 05/08/20 05:55 Active ABDOMEN AND PELVIS W CONTRAST [CT] Stat Exams 05/08/20 02:31 Taken CBC W DIFF Stat Lab 05/08/20 03:15 Completed CMP Stat Lab 05/08/20 03:15 Completed CULTURE,URINE Stat Lab 05/08/20 03:03 Received LIPASE Stat Lab 05/08/20 03:15 Completed Manual Differential NC Stat Lab 05/08/20 03:15 Completed TROPONIN Q3H Lab 05/08/20 03:15 Completed TROPONIN Q3H Lab 05/08/20 05:45 Completed TROPONIN Q3H Lab 05/08/20 08:45 Ordered TROPONIN Q3H Lab 05/08/20 11:45 Ordered TROPONIN Q3H Lab 05/08/20 14:45 Ordered UA W/RFX UR CULTURE Stat Lab 05/08/20 03:03 Completed Transfer Order Routine Transfer 05/08/20 Ordered Medication Summary Discontinued Medications Generic Name Dose Route Start Last Admin Trade Name Freq PRN Reason Stop Dose Admin Sodium Chloride 1,000 mls @ 999 mls/hr 05/08/20 02:31 05/08/20 03:15 Sodium Chloride 0.9% 1000 Ml IV 05/08/20 03:31 999 mls/hr .Q1H1M STA Administration Sodium Chloride Confirm 05/08/20 02:56 Sodium Chloride 0.9% 1000 Ml Administered 05/08/20 02:57 Dose 1,000 mls @ ud .ROUTE .STK-MED ONE Ceftriaxone Sodium/Dextrose 1 g in 50 mls @ 100 mls/hr 05/08/20 05:10 05/08/20 05:18 Rocephin 1 Gm-D5w 50 Ml Bag IV 05/08/20 05:39 100 mls/hr STAT STA 100 mls/hr Administration Ceftriaxone Sodium/Dextrose Confirm 05/08/20 05:15 Rocephin 1 Gm-D5w 50 Ml Bag Administered 05/08/20 05:16 Dose 1 g in 50 mls @ ud IV .STK-MED ONE Ketorolac Tromethamine 30 mg 05/08/20 05:54 05/08/20 05:59 Toradol 30 Mg Injection IV 05/08/20 05:55 30 mg STAT ONE Administration Ketorolac Tromethamine Confirm 05/08/20 05:58 Toradol 30 Mg Injection Administered 05/08/20 05:59 Dose 30 mg .ROUTE .STK-MED ONE Lab/Rad Data: Laboratory Result Diagrams 05/08/20 03:15 05/08/20 03:15 Laboratory Results 05/08/20 05/08/20 05/08/20 Range/Units 06:17 05:45 03:15 WBC (4.0-10.5) K/mm3 RBC (4.1-5.4) M/mm3 Hgb (12.0-16.0) gm/dl Hct (35-47) % MCV (78-100) fl MCH (26-32) pg MCHC (32-36) g/dl RDW (11.5-14.0) % Plt Count (150-450) K/mm3 MPV (7.5-11.0) fl Segmented Neutrophils (36.0-66.0) % Band Neutrophils (0.0-2.0) % Lymphocytes (Manual) (24-44) % Monocytes (Manual) (0.0-12.0) % Eosinophils (Manual) (0.00-3.0) % Platelet Estimate (NORMAL) RBC Morphology Sodium (137-145) mmol/L Potassium (3.5-5.1) mmol/L Chloride (98-107) mmol/L Carbon Dioxide (22-30) mmol/L Anion Gap (5-15) MEQ/L BUN (7-17) mg/dL Creatinine (0.52-1.04) mg/dL Estimated GFR ML/MIN Glucose (74-106) mg/dL Calcium (8.4-10.2) mg/dL Total Bilirubin (0.2-1.3) mg/dL AST (14-36) U/L ALT (0-35) U/L Alkaline Phosphatase (38-126) U/L Troponin I < 0.012 < 0.012 (0.000-0.034) ng/mL Serum Total Protein (6.3-8.2) g/dL Albumin (3.5-5.0) g/dL Lipase (23-300) U/L Urine Color (YELLOW) Urine Appearance (CLEAR) Urine pH (5-6) Ur Specific [place] (1.005-1.025) Urine Protein (Negative) Urine Ketones (NEGATIVE) Urine Blood (0-5) [place]/ul Urine Nitrite (NEGATIVE) Urine Bilirubin (NEGATIVE) Urine Urobilinogen (0-1) mg/dL Ur Leukocyte Esterase (NEGATIVE) Urine WBC (Auto) (0-5) /HPF Urine RBC (Auto) (0-2) /HPF U Hyaline Cast (Auto) (0-2) /LPF U Epithel Cells (Auto) (FEW) /HPF Urine Bacteria (Auto) (NEGATIVE) /HPF Urine Mucus (Auto) (NEGATIVE) /HPF Urine Culture Reflexed (NO) Urine Glucose (NEGATIVE) mg/dL Influenza Type A Ag NEGATIVE (NEGATIVE) Influenza Type B Ag NEGATIVE (NEGATIVE) RSV (PCR) NEGATIVE (Negative) SARS-CoV-2 (PCR) NEGATIVE (NEGATIVE) 05/08/20 05/08/20 05/08/20 Range/Units 03:15 03:15 03:03 WBC 8.6 (4.0-10.5) K/mm3 RBC 3.92 L (4.1-5.4) M/mm3 Hgb 10.7 L (12.0-16.0) gm/dl Hct 35.0 (35-47) % MCV 89.3 (78-100) fl MCH 27.3 (26-32) pg MCHC 30.6 L (32-36) g/dl RDW 14.8 H (11.5-14.0) % Plt Count 176 (150-450) K/mm3 MPV 10.8 (7.5-11.0) fl Segmented Neutrophils 69 H (36.0-66.0) % Band Neutrophils 1 (0.0-2.0) % Lymphocytes (Manual) 19 L (24-44) % Monocytes (Manual) 9 (0.0-12.0) % Eosinophils (Manual) 2 (0.00-3.0) % Platelet Estimate NORMAL (NORMAL) RBC Morphology NORMAL Sodium 141 (137-145) mmol/L Potassium 4.1 (3.5-5.1) mmol/L Chloride 110 H (98-107) mmol/L Carbon Dioxide 20 L (22-30) mmol/L Anion Gap 15.1 H (5-15) MEQ/L BUN 32 H (7-17) mg/dL Creatinine 1.46 H (0.52-1.04) mg/dL Estimated GFR 38.3 ML/MIN Glucose 107 H (74-106) mg/dL Calcium 9.0 (8.4-10.2) mg/dL Total Bilirubin 0.40 (0.2-1.3) mg/dL AST 23 (14-36) U/L ALT 17 (0-35) U/L Alkaline Phosphatase 73 (38-126) U/L Troponin I (0.000-0.034) ng/mL Serum Total Protein 6.7 (6.3-8.2) g/dL Albumin 3.9 (3.5-5.0) g/dL Lipase 257 (23-300) U/L Urine Color YELLOW (YELLOW) Urine Appearance SLIGHTLY CLOUDY (CLEAR) Urine pH 5.0 (5-6) Ur Specific [place] 1.028 (1.005-1.025) Urine Protein 30 (Negative) Urine Ketones NEGATIVE (NEGATIVE) Urine Blood NEGATIVE (0-5) [place]/ul Urine Nitrite NEGATIVE (NEGATIVE) Urine Bilirubin NEGATIVE (NEGATIVE) Urine Urobilinogen NEGATIVE (0-1) mg/dL Ur Leukocyte Esterase MODERATE (NEGATIVE) Urine WBC (Auto) 11-15 (0-5) /HPF Urine RBC (Auto) 0-2 (0-2) /HPF U Hyaline Cast (Auto) 3-5 (0-2) /LPF U Epithel Cells (Auto) RARE (FEW) /HPF Urine Bacteria (Auto) NONE (NEGATIVE) /HPF Urine Mucus (Auto) SLIGHT (NEGATIVE) /HPF Urine Culture Reflexed YES (NO) Urine Glucose NEGATIVE (NEGATIVE) mg/dL Influenza Type A Ag (NEGATIVE) Influenza Type B Ag (NEGATIVE) RSV (PCR) (Negative) SARS-CoV-2 (PCR) (NEGATIVE) - Progress Progress: improved Progress Note: Patient reassessed. She feels much better. NG tube inserted. NG tube to low intermittent suction. We are treating a small bowel obstruction. IV fluids infusing. Acute renal injury BUN 32 creatinine 1.46. Covid and influenza negative. Case discussed with Dr. Hidalgo who accepts admission to observation. Plan of care discussed with patient. She agrees to admission to [facility] for further evaluation and treatment. Dr. Hidalgo request to hold off on general surgery consultation at this time. 05/08/20 07:17 Discussed with : Jodie Will see patient in: hospital (observation) Counseled pt/family regarding: lab results, diagnosis, rad results - Departure Departure Disposition: Observation Clinical Impression: Nausea & vomiting, Abdominal pain, Anemia, Acute renal injury, UTI (urinary tract infection), Small bowel obstruction Condition: Stable Critical Care Time: No Referrals: LLUVIA CHILDERS DO [Primary Care Provider] -
[2020-05-08 03:22] LABS: Hemoglobin 10.7 gm/dl (12.0-16.0); Mean Cell Volume 89.3 fl (78-100); Mean Corpuscular Hemoglobin 27.3 pg (26-32); Mean Corpuscular Hgb Concent. 30.6 g/dl (32-36); Mean Platelet Volume 10.8 fl (7.5-11.0); Platelet Count 176 K/mm3 (150-450); Red Blood Count 3.92 M/mm3 (4.1-5.4); Red Cell Distribution Width 14.8 % (11.5-14.0); White Blood Count 8.6 K/mm3 (4.0-10.5)
[2020-05-08 03:30] LABS: ALBUMIN 3.9 g/dL (3.5-5.0); ANION GAP 15.1 MEQ/L (5-15); BILIRUBIN,TOTAL 0.4 mg/dL (0.2-1.3); Creatinine 1 1.46 mg/dL (0.52-1.04); EST GLOMERULAR FILTRATION RATE 38.3 ML/MIN; Potassium 4.1 mmol/L (3.5-5.1); Total Protein 6.7 g/dL (6.3-8.2)
[2020-05-08 04:02] LABS: BAND 1 % (0.0-2.0); Eosinophil 2 % (0.00-3.0); Lymphocytes 19 % (24-44); Monocyte 9 % (0.0-12.0); Neutrophils 69 % (36.0-66.0); Platelet Estimate NORMAL (NORMAL); Total Cells Counted 100
[2020-05-08 04:19] LABS: Appearance SLIGHTLY CLOUDY (CLEAR); Bilirubin NEGATIVE (NEGATIVE); Blood NEGATIVE Ery/ul (0-5); Epithelial Cells RARE /HPF (FEW); Glucose NEGATIVE (NEGATIVE); Ketones NEGATIVE (NEGATIVE); Leukocyte Esterase MODERATE (NEGATIVE); Mucus SLIGHT /HPF (NEGATIVE); Nitrite NEGATIVE (NEGATIVE); Protein,Urine Dip 30 (Negative); RBC 0-2 /HPF (0-2); Specific Gravity 1.028 (1.005-1.025); Urobilinogen NEGATIVE mg/dL (0-1)
[2020-05-08] MEDS ORDERED: ROCEPHIN 1 Gm-D5w 50 ml Bag** 1 G/50 ML IVPB IV STA (05:10)
[2020-05-08] MEDS ORDERED: ROCEPHIN 1 Gm-D5w 50 ml Bag** 1 G/50 ML IVPB IV ONE (05:15)
[2020-05-08] MEDS ORDERED: TORAdol 30 mg Injection IV ONE (05:54)
[2020-05-08] MEDS ORDERED: TORAdol 30 mg Injection ONE (05:58)
[2020-05-08 07:09] LABS: INFLUENZA A NEGATIVE (NEGATIVE); INFLUENZA B NEGATIVE (NEGATIVE); RESPIRATORY SYNCTIAL VIRUS NEGATIVE (Negative)
--- NOTE | 2020-05-08 08:49 | XRAY ---
Indication: Abdomen pain. Obstruction. Multiple contiguous axial images obtained through the abdomen and pelvis using 80 cc Isovue 370 contrast. Comparison: May 03, 2020. Lung bases demonstrates new mild bibasilar subsegmental atelectasis. No infiltrate or effusion. Heart is not enlarged. Stable tiny distal paraesophageal calcified nodes. Noncontrasted stomach and bowel loops nonobstructed again with total colectomy. Intact sigmoid anastomosis. No free fluid/air. Again hysterectomy and cholecystectomy. Remaining liver, pancreas, spleen, adrenal glands, kidneys, ureters, bladder, and aorta are unremarkable. No pathologic retroperitoneal lymphadenopathy. Osseous structures intact with stable L2-L3 and L5-S1 degenerative changes. Impression: 1. Stable postsurgical changes and chronic bony findings. 2. Remaining CT abdomen/pelvis with contrast exam is negative. Comment: Preliminary interpretation was made by [facility] who reports right abdomen 3.2 cm distended small bowel loop, possible early/partial small bowel obstruction. Bowel loop appears normal on delayed images and represents normal peristalsis and less likely early/partial obstruction.
[2020-05-08] MEDS: Sodium Chloride 0.9% 1000 ML 1,000 ML IV SCH ×2 (09:00→20:18)
[2020-05-08] MEDS ORDERED: NON-FORMULARY ITEM (Rizatriptan Benzoate [Maxalt] 10 MG) PO PRN (09:09)
[2020-05-08] MEDS ORDERED: MEDICATION INTERVENTION PO SCH (09:45)
[2020-05-08] MEDS ORDERED: MEDICATION INTERVENTION MC SCH ×2 (09:45)
[2020-05-08] MEDS ORDERED: NON-FORMULARY ITEM (Linaclotide [Linzess] 290 MCG) PO SCH (10:00)
[2020-05-08] MEDS ORDERED: NON-FORMULARY ITEM (Apixaban [Eliquis] 5 MG) PO SCH (10:00)
[2020-05-08] MEDS ORDERED: UMECLIDINIUM IH SCH (10:00)
[2020-05-08] MEDS ORDERED: [UNRECOGNIZED DRUG - OTHER] IH SCH (10:00)
[2020-05-08] MEDS ORDERED: VILANTEROL IH SCH (10:00)
[2020-05-08] MEDS ORDERED: CHLORASEPTIC SPRAY 180 ML PO PRN (10:11)
[2020-05-08] MEDS ORDERED: Zofran 4 MG/2 ML VIAL IV PRN (10:14)
[2020-05-08] MEDS: SYNTHROID 50 MCG PO SCH (10:18)
[2020-05-08] MEDS: ELIQUIS 2.5 MG TABLET PO SCH ×2 (10:18→20:11)
[2020-05-08] MEDS: Flonase NASAL NS SCH ×2 (10:18→11:31)
[2020-05-08] MEDS: XANAX 1 MG PO SCH (10:19)
[2020-05-08] MEDS: PROTONIX 40 MG IV IV SCH (11:02)
[2020-05-08] MEDS: PROVENTIL 2.5 MG/3 ML NEB IH SCH ×3 (11:16→19:20)
[2020-05-08] MEDS: solu-MEDROL 40 MG IV SCH ×2 (14:08→20:11)
[2020-05-08] MEDS ORDERED: PHENERGAN 25 MG PO ONE (15:17)
--- NOTE | 2020-05-08 15:39 | PCM.HP ---
History of Present Illness - Chief Complaint Chief Complaint: small bowel obstruction History of Present Illness: is a 64 year old female patient of mine with alot of chronic health issues. She is S/P total coloectomy for psuedo obstruction chronic nausea and volume depletion requiring recurrent outpatient IV hydration.( GI, Dr Drummond follows)COPD oxygen dependent and Hx PE on Eliquis.(DR Jackson follows), Interstitial cystitis with recurrent UTI (DR Mckay and Dr Vinayak tyson) Patient has had 3 weeks of nausea and vomiting and 2 ER visits and admitted with partial SBO.NG tube placed in ER. - Review of Systems Constitutional: Fatigue, Other (no fever or chills) Eyes: No Symptoms, Other Ears, Nose, & Throat: Other (chronic sinusitis on Mucinex and Zyrtec daily) Respiratory: Cough (is on medrol dose pk for COPD exacerbation at time of admission) Cardiac: No Symptoms Abdominal/Gastrointestinal: Abdominal Pain, Nausea, Vomiting Genitourinary Symptoms: Other (chrinnic cystitis symptoms,recent Cuture low colony count and no antibiotic tx given per Dr Mckay) Musculoskeletal: Arthralgias, Myalgias Skin: No Symptoms Neurological: Headache (migraine uses Maxalt with releif at home) Psychological: Anxiety (chronic,takes Xanax ,Dr Jimy Yu prescribes/manages) Endocrine: Other (not diabetic) 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) Immunological/Allergic: Other (chronic sinusitis) Medications & Allergies Home Medications: Home Medication List Alprazolam 1 mg [Xanax 1 mg] 1 mg PO DAILY 02/17/13 [History Confirmed 05/08/20] Polyethylene Glycol 3350 17 gm [Miralax Powder 17GM PACKET] 34 gm PO BID 11/15/14 [History Confirmed 05/08/20] Sennosides/Docusate Sodium [Senokot-S Tablet] 1 tab PO DAILY 04/25/15 [History Confirmed 05/08/20] Promethazine HCl 25 mg [Phenergan 25 mg] 25 mg PO Q4HPRN PRN 05/11/15 [History Confirmed 05/08/20] Cetirizine HCl/Pseudoephedrine [Zyrtec-D Tablet] 1 each PO DAILY 02/03/16 [History Confirmed 05/08/20] Aspirin 81 mg PO DAILY 09/11/16 [History Confirmed 05/08/20] Levothyroxine Sodium 50 Mcg [Synthroid 50 Mcg] 50 mcg PO DAILY 07/06/17 [History Confirmed 05/08/20] Linaclotide [Linzess] 290 mcg PO DAILY 10/07/17 [History Confirmed 05/08/20] Rizatriptan Benzoate [Maxalt] 10 mg PO BID PRN PRN 06/23/18 [History Confirmed 05/08/20] Fluticasone Propionate [Flonase NASAL] 2 spray NS DAILY 01/19/19 [History Confirmed 05/08/20] Guaifenesin 600 mg ER [Mucinex 600MG ER Tabs] 600 mg PO DAILY 04/05/19 [History Confirmed 05/08/20] Sucralfate 1 gm [Carafate 1 GM] 1 g PO ACHS 04/05/19 [History Confirmed 05/08/20] Alprazolam 1 mg [Xanax 1 mg] 2 mg PO QPM 01/21/20 [History Confirmed 05/08/20] Dexlansoprazole [Dexilant] 60 mg PO DAILY 01/21/20 [History Confirmed 05/08/20] Prucalopride Succinate [Motegrity] 2 mg PO DAILY 01/21/20 [History Confirmed 05/08/20] Apixaban [Eliquis] 5 mg PO BID 30 Days #80 tablet 01/23/20 [Rx Confirmed 05/08/20] Fluticasone/Umeclidin/Vilanter [Trelegy Ellipta 100-62.5-25] 1 disk IH DAILY 03/01/20 [History Confirmed 05/08/20] Magnesium Oxide 400 mg [Mag-Ox 400] 400 mg PO BID 30 Days #60 tablet 03/22/20 [Rx Confirmed 05/08/20] Prednisone 10 mg [Deltasone 10 mg] 10 mg PO DAILY 12 Days #30 tablet 03/22/20 [Rx Confirmed 05/08/20] Ofloxacin Ophth 5 ml [Ocuflox OPHTHALMIC 5 ML] 5 ml OP DAILY bottle 05/04/20 [Rx Confirmed 05/08/20] Allergies/Adverse Reactions: Allergies Allergy/AdvReac Type Severity Reaction Status Date / Time sumatriptan [From Imitrex] Allergy Intermediate Rash Verified 05/08/20 02:24 codeine Allergy Mild Rash Verified 05/08/20 02:24 nitrofurantoin Allergy Unknown Verified 05/08/20 02:24 [From Macrobid] sumatriptan succinate Allergy Verified 05/08/20 02:24 [From Imitrex] morphine AdvReac Severe Headache Verified 05/08/20 02:24 fentanyl AdvReac Intermediate Headache Verified 05/08/20 02:24 hydrocodone bitartrate AdvReac Mild Vomiting Verified 05/08/20 02:24 [From Vicodin] hydromorphone [From Dilaudid] AdvReac Mild pt states Verified 05/08/20 02:24 makes heache worse. - Past Medical History Past Medical History: Yes Neurological History: Migraines ENT History: Cataracts Cardiac History: No Pertinent History Respiratory History: Bronchitis, COPD, Pulmonary Embolism Endocrine Medical History: Hypothyroidism Musculoskelatal History: Osteoarthritis GI Medical History: GERD, Other (S/P colectomy for pseudo obstruction - GI, Dr Drummond of [place] follows) History: Other (recurrent UTI,interstitial cystitis) Pyscho-Social History: Anxiety, Panic Disorder Reproductive Disorders: No Pertinent History Comment: frequent uti's, chronic pseudyo obstruction, blood clot - Female History Hx Last Menstrual Period: Hysterectomy Are you now?: No - Past Surgical History Past Surgical History: Yes Neuro Surgical History: No Pertinent History Cardiac History: No Pertinent History Respiratory Surgery: No Pertinent History GI Surgical History: Cholecystectomy, Other Genitourinary Surgical Hx: No Pertinent History Musculskeletal Surgical Hx: No Pertinent History Female Surgical History: No Pertinent History Other Surgical History: all of large intestine removed - Social History Smoking Status: Never smoker Exposure to second hand smoke: Yes Alcohol: None Drug Use: none Significant Family History: no pertinent family hx - Physical Exam Vital Signs: Vital Signs - 24 hr Temp Pulse Resp BP Pulse Ox 05/08/20 12:00 98.5 F 78 20 110/76 94 L 05/08/20 09:22 97.5 F 80 16 113/88 94 L 05/08/20 08:58 83 16 97 05/08/20 08:00 63 18 90/56 93 L 05/08/20 07:18 97 05/08/20 06:00 84 16 121/90 97 05/08/20 05:00 84 18 112/76 95 05/08/20 04:00 82 18 120/90 97 05/08/20 03:15 85 18 103/78 97 05/08/20 02:26 98.8 F 101 H 18 127/82 97 General Appearance: moderate distress (c/o right sided sinus headache,relieved after mucinex,loratadine and tylenol) Neurologic Exam: alert, 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, agitation Eye Exam: eyes nml inspection Ears, Nose, Throat Exam: normal ENT inspection Neck Exam: normal inspection Respiratory Exam: normal breath sounds Cardiovascular Exam: regular rate/rhythm Gastrointestinal/Abdomen Exam: soft (diminished bowel sounds), tenderness (no guarding), distention Pelvic Exam: not done Rectal Exam: not done Back Exam: normal inspection Extremity Exam: normal inspection Skin Exam: pale Results - Labs Lab/Micro Results: Lab Results-Last 24 Hours 05/08/20 05/08/20 05/08/20 Range/Units 03:03 03:15 03:15 WBC 8.6 (4.0-10.5) K/mm3 RBC 3.92 L (4.1-5.4) M/mm3 Hgb 10.7 L (12.0-16.0) gm/dl Hct 35.0 (35-47) % MCV 89.3 (78-100) fl MCH 27.3 (26-32) pg MCHC 30.6 L (32-36) g/dl RDW 14.8 H (11.5-14.0) % Plt Count 176 (150-450) K/mm3 MPV 10.8 (7.5-11.0) fl Segmented Neutrophils 69 H (36.0-66.0) % Band Neutrophils 1 (0.0-2.0) % Lymphocytes (Manual) 19 L (24-44) % Monocytes (Manual) 9 (0.0-12.0) % Eosinophils (Manual) 2 (0.00-3.0) % Platelet Estimate NORMAL (NORMAL) RBC Morphology NORMAL Sodium 141 (137-145) mmol/L Potassium 4.1 (3.5-5.1) mmol/L Chloride 110 H (98-107) mmol/L Carbon Dioxide 20 L (22-30) mmol/L Anion Gap 15.1 H (5-15) MEQ/L BUN 32 H (7-17) mg/dL Creatinine 1.46 H (0.52-1.04) mg/dL Estimated GFR 38.3 ML/MIN Glucose 107 H (74-106) mg/dL Calcium 9.0 (8.4-10.2) mg/dL Magnesium (1.6-2.3) mg/dL Total Bilirubin 0.40 (0.2-1.3) mg/dL AST 23 (14-36) U/L ALT 17 (0-35) U/L Alkaline Phosphatase 73 (38-126) U/L Troponin I (0.000-0.034) ng/mL Serum Total Protein 6.7 (6.3-8.2) g/dL Albumin 3.9 (3.5-5.0) g/dL Lipase 257 (23-300) U/L Urine Color YELLOW (YELLOW) Urine Appearance SLIGHTLY CLOUDY (CLEAR) Urine pH 5.0 (5-6) Ur Specific [place] 1.028 (1.005-1.025) Urine Protein 30 (Negative) Urine Ketones NEGATIVE (NEGATIVE) Urine Blood NEGATIVE (0-5) Aroldo/ul Urine Nitrite NEGATIVE (NEGATIVE) Urine Bilirubin NEGATIVE (NEGATIVE) Urine Urobilinogen NEGATIVE (0-1) mg/dL Ur Leukocyte Esterase MODERATE (NEGATIVE) Urine WBC (Auto) 11-15 (0-5) /HPF Urine RBC (Auto) 0-2 (0-2) /HPF U Hyaline Cast (Auto) 3-5 (0-2) /LPF U Epithel Cells (Auto) RARE (FEW) /HPF Urine Bacteria (Auto) NONE (NEGATIVE) /HPF Urine Mucus (Auto) SLIGHT (NEGATIVE) /HPF Urine Culture Reflexed YES (NO) Urine Glucose NEGATIVE (NEGATIVE) mg/dL Influenza Type A Ag (NEGATIVE) Influenza Type B Ag (NEGATIVE) RSV (PCR) (Negative) SARS-CoV-2 (PCR) (NEGATIVE) 05/08/20 05/08/20 05/08/20 Range/Units 03:15 05:45 06:17 WBC (4.0-10.5) K/mm3 RBC (4.1-5.4) M/mm3 Hgb (12.0-16.0) gm/dl Hct (35-47) % MCV (78-100) fl MCH (26-32) pg MCHC (32-36) g/dl RDW (11.5-14.0) % Plt Count (150-450) K/mm3 MPV (7.5-11.0) fl Segmented Neutrophils (36.0-66.0) % Band Neutrophils (0.0-2.0) % Lymphocytes (Manual) (24-44) % Monocytes (Manual) (0.0-12.0) % Eosinophils (Manual) (0.00-3.0) % Platelet Estimate (NORMAL) RBC Morphology Sodium (137-145) mmol/L Potassium (3.5-5.1) mmol/L Chloride (98-107) mmol/L Carbon Dioxide (22-30) mmol/L Anion Gap (5-15) MEQ/L BUN (7-17) mg/dL Creatinine (0.52-1.04) mg/dL Estimated GFR ML/MIN Glucose (74-106) mg/dL Calcium (8.4-10.2) mg/dL Magnesium (1.6-2.3) mg/dL Total Bilirubin (0.2-1.3) mg/dL AST (14-36) U/L ALT (0-35) U/L Alkaline Phosphatase (38-126) U/L Troponin I < 0.012 < 0.012 (0.000-0.034) ng/mL Serum Total Protein (6.3-8.2) g/dL Albumin (3.5-5.0) g/dL Lipase (23-300) U/L Urine Color (YELLOW) Urine Appearance (CLEAR) Urine pH (5-6) Ur Specific [place] (1.005-1.025) Urine Protein (Negative) Urine Ketones (NEGATIVE) Urine Blood (0-5) Aroldo/ul Urine Nitrite (NEGATIVE) Urine Bilirubin (NEGATIVE) Urine Urobilinogen (0-1) mg/dL Ur Leukocyte Esterase (NEGATIVE) Urine WBC (Auto) (0-5) /HPF Urine RBC (Auto) (0-2) /HPF U Hyaline Cast (Auto) (0-2) /LPF U Epithel Cells (Auto) (FEW) /HPF Urine Bacteria (Auto) (NEGATIVE) /HPF Urine Mucus (Auto) (NEGATIVE) /HPF Urine Culture Reflexed (NO) Urine Glucose (NEGATIVE) mg/dL Influenza Type A Ag NEGATIVE (NEGATIVE) Influenza Type B Ag NEGATIVE (NEGATIVE) RSV (PCR) NEGATIVE (Negative) SARS-CoV-2 (PCR) NEGATIVE (NEGATIVE) 05/08/20 05/08/20 05/08/20 Range/Units 08:50 10:14 11:45 WBC (4.0-10.5) K/mm3 RBC (4.1-5.4) M/mm3 Hgb (12.0-16.0) gm/dl Hct (35-47) % MCV (78-100) fl MCH (26-32) pg MCHC (32-36) g/dl RDW (11.5-14.0) % Plt Count (150-450) K/mm3 MPV (7.5-11.0) fl Segmented Neutrophils (36.0-66.0) % Band Neutrophils (0.0-2.0) % Lymphocytes (Manual) (24-44) % Monocytes (Manual) (0.0-12.0) % Eosinophils (Manual) (0.00-3.0) % Platelet Estimate (NORMAL) RBC Morphology Sodium (137-145) mmol/L Potassium (3.5-5.1) mmol/L Chloride (98-107) mmol/L Carbon Dioxide (22-30) mmol/L Anion Gap (5-15) MEQ/L BUN (7-17) mg/dL Creatinine (0.52-1.04) mg/dL Estimated GFR ML/MIN Glucose (74-106) mg/dL Calcium (8.4-10.2) mg/dL Magnesium 1.7 (1.6-2.3) mg/dL Total Bilirubin (0.2-1.3) mg/dL AST (14-36) U/L ALT (0-35) U/L Alkaline Phosphatase (38-126) U/L Troponin I < 0.012 < 0.012 (0.000-0.034) ng/mL Serum Total Protein (6.3-8.2) g/dL Albumin (3.5-5.0) g/dL Lipase (23-300) U/L Urine Color (YELLOW) Urine Appearance (CLEAR) Urine pH (5-6) Ur Specific [place] (1.005-1.025) Urine Protein (Negative) Urine Ketones (NEGATIVE) Urine Blood (0-5) Aroldo/ul Urine Nitrite (NEGATIVE) Urine Bilirubin (NEGATIVE) Urine Urobilinogen (0-1) mg/dL Ur Leukocyte Esterase (NEGATIVE) Urine WBC (Auto) (0-5) /HPF Urine RBC (Auto) (0-2) /HPF U Hyaline Cast (Auto) (0-2) /LPF U Epithel Cells (Auto) (FEW) /HPF Urine Bacteria (Auto) (NEGATIVE) /HPF Urine Mucus (Auto) (NEGATIVE) /HPF Urine Culture Reflexed (NO) Urine Glucose (NEGATIVE) mg/dL Influenza Type A Ag (NEGATIVE) Influenza Type B Ag (NEGATIVE) RSV (PCR) (Negative) SARS-CoV-2 (PCR) (NEGATIVE) 05/08/20 Range/Units 14:45 WBC (4.0-10.5) K/mm3 RBC (4.1-5.4) M/mm3 Hgb (12.0-16.0) gm/dl Hct (35-47) % MCV (78-100) fl MCH (26-32) pg MCHC (32-36) g/dl RDW (11.5-14.0) % Plt Count (150-450) K/mm3 MPV (7.5-11.0) fl Segmented Neutrophils (36.0-66.0) % Band Neutrophils (0.0-2.0) % Lymphocytes (Manual) (24-44) % Monocytes (Manual) (0.0-12.0) % Eosinophils (Manual) (0.00-3.0) % Platelet Estimate (NORMAL) RBC Morphology Sodium (137-145) mmol/L Potassium (3.5-5.1) mmol/L Chloride (98-107) mmol/L Carbon Dioxide (22-30) mmol/L Anion Gap (5-15) MEQ/L BUN (7-17) mg/dL Creatinine (0.52-1.04) mg/dL Estimated GFR ML/MIN Glucose (74-106) mg/dL Calcium (8.4-10.2) mg/dL Magnesium (1.6-2.3) mg/dL Total Bilirubin (0.2-1.3) mg/dL AST (14-36) U/L ALT (0-35) U/L Alkaline Phosphatase (38-126) U/L Troponin I < 0.012 (0.000-0.034) ng/mL Serum Total Protein (6.3-8.2) g/dL Albumin (3.5-5.0) g/dL Lipase (23-300) U/L Urine Color (YELLOW) Urine Appearance (CLEAR) Urine pH (5-6) Ur Specific [place] (1.005-1.025) Urine Protein (Negative) Urine Ketones (NEGATIVE) Urine Blood (0-5) Aroldo/ul Urine Nitrite (NEGATIVE) Urine Bilirubin (NEGATIVE) Urine Urobilinogen (0-1) mg/dL Ur Leukocyte Esterase (NEGATIVE) Urine WBC (Auto) (0-5) /HPF Urine RBC (Auto) (0-2) /HPF U Hyaline Cast (Auto) (0-2) /LPF U Epithel Cells (Auto) (FEW) /HPF Urine Bacteria (Auto) (NEGATIVE) /HPF Urine Mucus (Auto) (NEGATIVE) /HPF Urine Culture Reflexed (NO) Urine Glucose (NEGATIVE) mg/dL Influenza Type A Ag (NEGATIVE) Influenza Type B Ag (NEGATIVE) RSV (PCR) (Negative) SARS-CoV-2 (PCR) (NEGATIVE) - Radiology Impressions Radiology Exams & Impressions: Radiology Procedures Category Date Time Status ABDOMEN AND PELVIS W CONTRAST [CT] Stat Exams 05/08/20 02:31 Completed - Other Procedures and Tests Respiratory Therapy 05/08/20 10:27 Respiratory Therapy Assessment DAILY 05/08/20 10:28 Peak Expiratory Flow Rate ONCE Assessment/Plan (1) Small bowel obstruction Current Visit: Yes Status: Acute Assessment & Plan: partial SBO,has had BM soft stool x 2,NGT clamped and is tolerating fluids and jello. Pull NGT in AM and if tolerated breakfast cereal will discharge home to follow with me next week Code(s): K56.609 - UNSP INTESTNL OBST, UNSP TO PARTIAL VERSUS COMPLETE OBST (2) Nausea & vomiting Current Visit: Yes Status: Resolved Qualifiers: Vomiting type: bilious vomiting Qualified Code(s): R11.14 - Bilious vomiting Assessment & Plan: acute N/V has resolved after overnight NGT. Patient is chronically on Phenergan for nausea and followed by GI - Dr Bhanu Butler who is aware of patient's admit. Code(s): R11.2 - NAUSEA WITH VOMITING, UNSPECIFIED (3) Status post total colectomy Current Visit: Yes Status: Resolved Assessment & Plan: followed by Dr Drummond - GI - [place] Code(s): Z90.49 - ACQUIRED ABSENCE OF OTHER SPECIFIED PARTS OF DIGESTIVE TRACT (4) COPD (chronic obstructive pulmonary disease) with chronic bronchitis Current Visit: No Status: Chronic Assessment & Plan: patient was on Medrol dose pack at the time of admission so IV solumedrol started with good redults,improved aeration,no dyspnea or cough. Code(s): J44.9 - CHRONIC OBSTRUCTIVE PULMONARY DISEASE, UNSPECIFIED (5) Hx pulmonary embolism Current Visit: Yes Status: Chronic Assessment & Plan: continue Eliquis. Code(s): Z86.711 - PERSONAL HISTORY OF PULMONARY EMBOLISM
[2020-05-08] MEDS: PHENERGAN 25 MG PO SCH ×2 (15:56→20:10)
[2020-05-08] MEDS ORDERED: Magnesium 1 Gm / 100 Ml D5W*** 100 ML IV ONE (16:37)
[2020-05-08 17:47] LABS: Hematocrit 35.3 % (35-47); Hemoglobin 10.7 gm/dl (12.0-16.0); Mean Cell Volume 90.1 fl (78-100); Mean Corpuscular Hemoglobin 27.3 pg (26-32); Mean Corpuscular Hgb Concent. 30.3 g/dl (32-36); Mean Platelet Volume 10.7 fl (7.5-11.0); Platelet Count 158 K/mm3 (150-450); Red Blood Count 3.92 M/mm3 (4.1-5.4); Red Cell Distribution Width 14.8 % (11.5-14.0); White Blood Count 7.3 K/mm3 (4.0-10.5)
[2020-05-08 18:13] LABS: ALBUMIN 3.7 g/dL (3.5-5.0); ANION GAP 14.4 MEQ/L (5-15); BILIRUBIN,TOTAL 0.4 mg/dL (0.2-1.3); Calcium 8.8 mg/dL (8.4-10.2); Creatinine 1 1.15 mg/dL (0.52-1.04); EST GLOMERULAR FILTRATION RATE 50.5 ML/MIN; Potassium 4.3 mmol/L (3.5-5.1); Total Protein 6.4 g/dL (6.3-8.2)
[2020-05-08 19:06] LABS: ATYPICAL LYMPHS 1 %; BAND 3 % (0.0-2.0); Lymphocytes 7 % (24-44); Monocyte 1 % (0.0-12.0); Neutrophils 88 % (36.0-66.0); Total Cells Counted 100
[2020-05-08 19:07] LABS: Platelet Estimate NORMAL (NORMAL); Poikilocytosis 1+; Tear Drop Cells 1+
[2020-05-08] MEDS ORDERED: XANAX 1 MG PO SCH (22:00)
[2020-05-09] MEDS: PHENERGAN 25 MG PO SCH ×3 (00:44→08:27)
[2020-05-09] MEDS: solu-MEDROL 40 MG IV SCH (03:53)
[2020-05-09 05:06] LABS: Absolute Neutrophil Ct (ANC) 6.66 (1.4-6.9); BASOPHIL % 0.1 % (0.0-0.4); Basophil (Absolute #) 0.01 (0-0.4); Eosinophil (Absolute #) 0 (0-0.5); Hematocrit 32.2 % (35-47); Hemoglobin 9.7 gm/dl (12.0-16.0); Lymphocyte (Absolute #) 0.38 (1.0-4.6); Lymphocytes % 5.3 % (24.0-44.0); Mean Cell Volume 89.7 fl (78-100); Mean Corpuscular Hgb Concent. 30.1 g/dl (32-36); Mean Platelet Volume 10.9 fl (7.5-11.0); Monocyte (Absolute #) 0.08 (0.0-1.3); Monocytes % 1.1 % (0.0-12.0); Neutrophil % 93.5 % (36.0-66.0); Platelet Count 184 K/mm3 (150-450); Red Blood Count 3.59 M/mm3 (4.1-5.4); Red Cell Distribution Width 14.4 % (11.5-14.0); White Blood Count 7.1 K/mm3 (4.0-10.5)
[2020-05-09 05:23] LABS: ALBUMIN 3.2 g/dL (3.5-5.0); ALKALINE PHOSPHATASE 59 U/L (38-126); ANION GAP 14.1 MEQ/L (5-15); BLOOD UREA NITROGEN 22 mg/dL (7-17); CHLORIDE 111 mmol/L (98-107); Calcium 8.6 mg/dL (8.4-10.2); Carbon Dioxide 17 mmol/L (22-30); Creatinine 1 0.98 mg/dL (0.52-1.04); EST GLOMERULAR FILTRATION RATE > 60.0 ML/MIN; Glucose 172 mg/dL (74-106); Potassium 4.4 mmol/L (3.5-5.1); SGOT/AST 23 U/L (14-36); SODIUM 138 mmol/L (137-145); Total Protein 5.7 g/dL (6.3-8.2)
[2020-05-09 05:29] LABS: SGPT/ALT 21 U/L (0-35)
[2020-05-09] MEDS: PROVENTIL 2.5 MG/3 ML NEB IH SCH ×2 (06:33→11:44)
[2020-05-09] MEDS ORDERED: PATIENT OWN MEDICATION IH SCH (07:00)
--- NOTE | 2020-05-09 09:58 | PCM.DCORD ---
- Discharge Disposition: Home, Self-Care Condition: Stable Prescriptions: Continue Alprazolam 1 mg [Xanax 1 mg] 1 mg PO DAILY Polyethylene Glycol 3350 17 gm [Miralax Powder 17GM PACKET] 34 gm PO BID Sennosides/Docusate Sodium [Senokot-S Tablet] 1 tab PO DAILY Promethazine HCl 25 mg [Phenergan 25 mg] 25 mg PO Q4HPRN PRN PRN Reason: Nausea Cetirizine HCl/Pseudoephedrine [Zyrtec-D Tablet] 1 each PO DAILY Aspirin 81 mg PO DAILY Levothyroxine Sodium 50 Mcg [Synthroid 50 Mcg] 50 mcg PO DAILY Linaclotide [Linzess] 290 mcg PO DAILY Rizatriptan Benzoate [Maxalt] 10 mg PO BID PRN PRN PRN Reason: MIGRAINE Fluticasone Propionate [Flonase NASAL] 2 spray NS DAILY Guaifenesin 600 mg ER [Mucinex 600MG ER Tabs] 600 mg PO DAILY Sucralfate 1 gm [Carafate 1 GM] 1 g PO ACHS Dexlansoprazole [Dexilant] 60 mg PO DAILY Prucalopride Succinate [Motegrity] 2 mg PO DAILY Alprazolam 1 mg [Xanax 1 mg] 2 mg PO QPM Apixaban [Eliquis] 5 mg PO BID 30 Days #80 tablet Fluticasone/Umeclidin/Vilanter [Trelegy Ellipta 100-62.5-25] 1 disk IH DAILY Prednisone 10 mg [Deltasone 10 mg] 10 mg PO DAILY 12 Days #30 tablet Magnesium Oxide 400 mg [Mag-Ox 400] 400 mg PO BID 30 Days #60 tablet Ofloxacin Ophth 5 ml [Ocuflox OPHTHALMIC 5 ML] 5 ml OP DAILY bottle Additional Instructions: Resume medrol dose pack that patient had started prior to admission. Follow up with: LLUVIA CHILDERS DO [Primary Care Provider] - 05/17/20 1:30 pm
[2020-05-09] MEDS ORDERED: PATIENT OWN MEDICATION PO SCH (10:00)
[2020-05-09] MEDS ORDERED: Mucinex 600MG ER Tabs PO SCH (10:00)
[2020-05-09] MEDS ORDERED: CLARITIN 10 MG PO SCH (10:00)
[2020-05-09] MEDS: SYNTHROID 50 MCG PO SCH (10:01)
[2020-05-09] MEDS: ELIQUIS 2.5 MG TABLET PO SCH (10:01)
[2020-05-09] MEDS: PROTONIX 40 MG IV IV SCH (10:01)
[2020-05-09] MEDS: Flonase NASAL NS SCH (10:02)
[2020-05-09] MEDS: XANAX 1 MG PO SCH (10:02)
[2020-05-09 10:48] LABS: Slide Review 1 YES
[2020-05-09 11:06] VITALS: BP 123/74; PULSE 106; O2SAT 96
== END 2020-05-09 11:05 | disposition home or self-care (01) ==
LOC: ED 02:19 → MED SURG 08:12
PROVIDERS: ADMIT Family Medicine; ATTEND Family Medicine
DX: K56.609 Unspecified intestinal obstruction, unspecified as to partial versus complete obstruction (principal); R11.2 Nausea with vomiting, unspecified; R10.9 Unspecified abdominal pain; Z87.19 Personal history of other diseases of the digestive system; Z99.81 Dependence on supplemental oxygen; J44.1 Chronic obstructive pulmonary disease with (acute) exacerbation; R51.9 Headache, unspecified; J32.9 Chronic sinusitis, unspecified; Z86.711 Personal history of pulmonary embolism; Z90.49 Acquired absence of other specified parts of digestive tract; N30.10 Interstitial cystitis (chronic) without hematuria; Z79.01 Long term (current) use of anticoagulants
CPT/HCPCS: 0241U; 36000; 36415; 74177; 80053; 81001; 82150; 83690; 83735; 84484; 85025; 87077; 87086; 87186; 94150; 94640; 94760; 96360; 96365; 96374; 99284; G0378; J0696; J1642; J1885; J2920; J3475; J7609; A9270-GY

== ENCOUNTER 2020-07-10 12:07 | Emergency (ER) | payer MEDICARE ==
--- NOTE | 2020-07-10 12:37 | ERPHSYRPT ---
- History of Present Illness Time Seen by Provider: 07/10/20 12:15 Historian: patient Exam Limitations: no limitations Patient Subjective Stated Complaint: CP x 2 days after using inhaler Triage Nursing Assessment: pt to ED c/o sharp mid chest CP onset yesterday after using new inhaler. pt states she saw her road design draftsperson yesterday and was given h er new prescription for ih. reports it caused pain last night after use as well as this am after use again. rates 10/10 that radiates to back . Physician History: Patient is a 65-year-old female presents to our ED for evaluation of chest pain. Patient has had chest pain for the past 2 days. Patient saw her road design draftsperson yesterday. Patient was prescribed an inhaler. Patient treated herself with the inhaler yesterday and this morning. Patient states that chest pain reoccurred after using the inhaler. Chest pain described as a sharp sensation that radiates to her back. No nausea vomiting or diaphoresis. No trauma. No fever. Symptoms are mild to moderate in intensity. Patient attributes her chest pain to the inhaler. Patient voices no other complaints or concerns at this time. Patient is on Eliquis and aspirin. Patient took both her Eliquis and aspirin this morning. Timing/Duration: day(s) Activities at Onset: none Quality: sharpness Location: substernal Chest Pain Radiation: back Severity of Pain-Max: moderate Severity of Pain-Current: mild Associated Symptoms: shortness of breath, hurts to breathe, No nausea, No vomiting, No palpitations, No heartburn, No abdominal pain, No cough, No diaphoresis, No fever, No weakness, No syncope, No headache, No dizziness Prior Chest Pain/Cardiac Workup: no prior chest pain Nitro Today/Relief: no nitro taken today Aspirin Treatment Today: no aspirin today (Patient is on Eliquis and aspirin. She took both her Eliquis and aspirin today.) Allergies/Adverse Reactions: sumatriptan [From Imitrex] Allergy (Intermediate, Verified 07/10/20 12:21) Rash codeine Allergy (Mild, Verified 07/10/20 12:21) Rash MAKES SICK nitrofurantoin [From Macrobid] Allergy (Unknown, Verified 07/10/20 12:21) sumatriptan succinate [From Imitrex] Allergy (Verified 07/10/20 12:21) morphine Adverse Reaction (Severe, Verified 07/10/20 12:21) Headache MIGRAINES fentanyl Adverse Reaction (Intermediate, Verified 07/10/20 12:21) Headache hydrocodone bitartrate [From Vicodin] Adverse Reaction (Mild, Verified 07/10/20 12:21) Vomiting hydromorphone [From Dilaudid] Adverse Reaction (Mild, Verified 07/10/20 12:21) pt states makes heache worse. Home Medications: ALPRAZolam 1 MG [Xanax 1 mg] 1 mg PO DAILY 02/17/13 [History] Polyethylene Glycol 3350 17 gm [Miralax Powder 17GM PACKET] 34 gm PO BID 11/15/14 [History] Sennosides/Docusate Sodium [Senokot-S Tablet] 1 tab PO DAILY 04/25/15 [History] Promethazine HCl 25 mg [Phenergan 25 mg] 25 mg PO Q4HPRN PRN 05/11/15 [History] Cetirizine HCl/Pseudoephedrine [Zyrtec-D Tablet] 1 each PO DAILY 02/03/16 [History] Aspirin 81 mg PO DAILY 09/11/16 [History] Levothyroxine Sodium 50 Mcg [Synthroid 50 Mcg] 50 mcg PO DAILY 07/06/17 [History] Linaclotide [Linzess] 290 mcg PO DAILY 10/07/17 [History] Rizatriptan Benzoate [Maxalt] 10 mg PO BID PRN PRN 06/23/18 [History] Fluticasone Propionate [Flonase NASAL] 2 spray NS DAILY 01/19/19 [History] Guaifenesin 600 mg ER [Mucinex 600MG ER Tabs] 600 mg PO DAILY 04/05/19 [History] Sucralfate 1 gm [Carafate 1 GM] 1 g PO ACHS 04/05/19 [History] ALPRAZolam 1 MG [Xanax 1 mg] 2 mg PO QPM 01/21/20 [History] Dexlansoprazole [Dexilant] 60 mg PO DAILY 01/21/20 [History] Prucalopride Succinate [Motegrity] 2 mg PO DAILY 01/21/20 [History] Fluticasone/Umeclidin/Vilanter [Trelegy Ellipta 100-62.5-25] 200 units IH DAILY 03/01/20 [History] Hx Tetanus, Diphtheria Vaccination/Date Given: Yes Hx Influenza Vaccination/Date Given: Yes Hx Pneumococcal Vaccination/Date Given: Yes Immunizations Up to Date: Yes Travel Risk - International Travel Have you traveled outside of the country in past 3 weeks: No - Coronavirus Screening Are you exhibiting any of the following symptoms?: No Close contact with a COVID-19 positive Pt in past 14-21 Days: No - Vaccine Status Have you recieved a 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: No - Review of Systems Constitutional: No Symptoms, No Fever, No Chills Eyes: No Symptoms Ears, Nose, & Throat: No Symptoms Respiratory: No Symptoms, No Cough, No Dyspnea Cardiac: No Symptoms, No Chest Pain, No Edema, No Syncope Abdominal/Gastrointestinal: No Symptoms, No Abdominal Pain, No Nausea, No Vomiting, No Diarrhea Genitourinary Symptoms: No Symptoms, No Dysuria Musculoskeletal: No Symptoms, No Back Pain, No Neck Pain Skin: No Symptoms, No Rash Neurological: No Symptoms, No Dizziness, No Focal Weakness, No Sensory Changes Psychological: No Symptoms Endocrine: No Symptoms Hematologic/Lymphatic: No Symptoms All Other Systems: Reviewed and Negative - Past Medical History Pertinent Past Medical History: Yes Neurological History: Migraines ENT History: Cataracts Cardiac History: No Pertinent History Respiratory History: Bronchitis, COPD, Pulmonary Embolism Endocrine Medical History: Hypothyroidism Musculoskeletal History: Osteoarthritis GI Medical History: GERD, Other History: Other Psycho-Social History: Anxiety, Panic Disorder Female Reproductive Disorders: No Pertinent History Other Medical History: frequent uti's, chronic pseudyo obstruction, blood clot - Past Surgical History Past Surgical History: Yes Neuro Surgical History: No Pertinent History Cardiac: No Pertinent History Respiratory: No Pertinent History Gastrointestinal: Cholecystectomy, Other Genitourinary: No Pertinent History Musculoskeletal: No Pertinent History Female Surgical History: No Pertinent History Other Surgical History: all of large intestine removed - Social History Smoking Status: Never smoker Exposure to second hand smoke: Yes Alcohol Use: None Drug Use: none Patient Lives Alone: No Significant Family History: no pertinent family hx - Female History Hx Now: No - Nursing Vital Signs Nursing Vital Signs: Initial Vital Signs Temperature 97.4 F 07/10/20 12:10 Pulse Rate 100 H 07/10/20 12:10 Respiratory Rate 18 07/10/20 12:10 Blood Pressure 132/77 07/10/20 12:10 O2 Sat by Pulse Oximetry 95 07/10/20 12:10 Pain Scale Pain Intensity 10 - Physical Exam General Appearance: no apparent distress, alert Eye Exam: PERRL/EOMI, eyes nml inspection Ears, Nose, Throat Exam: normal ENT inspection, moist mucous membranes Neck Exam: normal inspection, non-tender, supple, full range of motion Respiratory Exam: normal breath sounds, lungs clear, No respiratory distress Cardiovascular Exam: regular rate/rhythm, normal heart sounds Gastrointestinal/Abdomen Exam: soft, No tenderness, No mass Back Exam: normal inspection, No CVA tenderness, No vertebral tenderness Extremity Exam: normal inspection, normal range of motion Neurologic Exam: alert, 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, cooperative, normal mood/affect, sensation nml, No motor deficits Skin Exam: normal color, warm, dry Lymphatic Exam: No adenopathy SpO2 Interpretation: normal SpO2: 95 O2 Delivery: Room Air - Course Nursing assessment & vital signs reviewed: Yes EKG Interpreted by Me: RATE (104), Sinus Tach, NORMAL AXIS, NORMAL INTERVALS - Radiology Exams Chest X-ray Interpretation: Teleradiologist Report (Portable chest x-ray unchanged. Right hemidiaphragm elevation. Right Port-A-Cath observed. Right perihilar calcified node. No new acute abnormalities.) Ordered Tests: Active Orders 24 hr Category Date Time Status Information Operator STAT Care 07/10/20 12:25 Active EKG-ER Only STAT Care 07/10/20 12:24 Active IV Insertion STAT Care 07/10/20 12:24 Active Pulse Oximetry (ED) STAT Care 07/10/20 12:24 Active CHEST 1 VIEW (PORTABLE) Stat Exams 07/10/20 12:25 Completed CBC W DIFF Stat Lab 07/10/20 13:08 Completed CMP Stat Lab 07/10/20 13:08 Completed CULTURE,URINE Stat Lab 07/10/20 14:53 Ordered D-DIMER QUANTITATIVE Stat Lab 07/10/20 13:08 Completed MAGNESIUM Stat Lab 07/10/20 13:08 Completed TROPONIN Q3H Lab 07/10/20 13:08 Completed TROPONIN Q3H Lab 07/10/20 15:20 Completed TROPONIN Q3H Lab 07/10/20 18:30 Ordered TROPONIN Q3H Lab 07/10/20 21:30 Ordered TROPONIN Q3H Lab 07/11/20 00:30 Ordered UA W/RFX UR CULTURE Stat Lab 07/10/20 14:52 Completed Urine Triage Profile Stat Lab 07/10/20 14:52 Completed Lab/Rad Data: Laboratory Result Diagrams 07/10/20 13:08 07/10/20 13:08 Laboratory Results 07/10/20 07/10/20 07/10/20 Range/Units 15:20 14:52 14:52 WBC (4.0-10.5) K/mm3 RBC (4.1-5.4) M/mm3 Hgb (12.0-16.0) gm/dl Hct (35-47) % MCV (78-100) fl MCH (26-32) pg MCHC (32-36) g/dl RDW (11.5-14.0) % Plt Count (150-450) K/mm3 MPV (7.5-11.0) fl Gran % (36.0-66.0) % Eos # (Auto) (0-0.5) Absolute Lymphs (auto) (1.0-4.6) Absolute Monos (auto) (0.0-1.3) Lymphocytes % (24.0-44.0) % Monocytes % (0.0-12.0) % Eosinophils % (0.00-5.0) % Basophils % (0.0-0.4) % Absolute Granulocytes (1.4-6.9) Basophils # (0-0.4) D-Dimer (215-500) ng/mL Sodium (137-145) mmol/L Potassium (3.5-5.1) mmol/L Chloride (98-107) mmol/L Carbon Dioxide (22-30) mmol/L Anion Gap (5-15) MEQ/L BUN (7-17) mg/dL Creatinine (0.52-1.04) mg/dL Estimated GFR ML/MIN Glucose (74-106) mg/dL Calcium (8.4-10.2) mg/dL Magnesium (1.6-2.3) mg/dL Total Bilirubin (0.2-1.3) mg/dL AST (14-36) U/L ALT (0-35) U/L Alkaline Phosphatase (38-126) U/L Troponin I < 0.012 (0.000-0.034) ng/mL Serum Total Protein (6.3-8.2) g/dL Albumin (3.5-5.0) g/dL Urine Color YELLOW (YELLOW) Urine Appearance SLIGHTLY CLOUDY (CLEAR) Urine pH 5.0 (5-6) Ur Specific [place] 1.027 (1.005-1.025) Urine Protein 30 (Negative) Urine Ketones NEGATIVE (NEGATIVE) Urine Blood NEGATIVE (0-5) Aroldo/ul Urine Nitrite NEGATIVE (NEGATIVE) Urine Bilirubin NEGATIVE (NEGATIVE) Urine Urobilinogen NEGATIVE (0-1) mg/dL Ur Leukocyte Esterase MODERATE (NEGATIVE) Urine WBC (Auto) 6-10 (0-5) /HPF Urine RBC (Auto) 6-10 (0-2) /HPF U Epithel Cells (Auto) FEW (FEW) /HPF Urine Bacteria (Auto) RARE (NEGATIVE) /HPF Calcium Oxalate Crystal 3-5 (NEGATIVE) /HPF Urine Mucus (Auto) SLIGHT (NEGATIVE) /HPF Urine Culture Reflexed ORDERED SEPARATELY (NO) Urine Glucose NEGATIVE (NEGATIVE) mg/dL Urine Opiates Level NEGATIVE (NEGATIVE) Ur Methadone NEGATIVE (NEGATIVE) Urine Barbiturates NEGATIVE (NEGATIVE) Ur Phencyclidine (PCP) NEGATIVE (NEGATIVE) Urine Amphetamine NEGATIVE (NEGATIVE) U Benzodiazepine Level POSITIVE (NEGATIVE) Urine Cocaine NEGATIVE (NEGATIVE) Urine Marijuana (THC) NEGATIVE (NEGATIVE) 07/10/20 07/10/20 07/10/20 Range/Units 13:08 13:08 13:08 WBC (4.0-10.5) K/mm3 RBC (4.1-5.4) M/mm3 Hgb (12.0-16.0) gm/dl Hct (35-47) % MCV (78-100) fl MCH (26-32) pg MCHC (32-36) g/dl RDW (11.5-14.0) % Plt Count (150-450) K/mm3 MPV (7.5-11.0) fl Gran % (36.0-66.0) % Eos # (Auto) (0-0.5) Absolute Lymphs (auto) (1.0-4.6) Absolute Monos (auto) (0.0-1.3) Lymphocytes % (24.0-44.0) % Monocytes % (0.0-12.0) % Eosinophils % (0.00-5.0) % Basophils % (0.0-0.4) % Absolute Granulocytes (1.4-6.9) Basophils # (0-0.4) D-Dimer 555 H* (215-500) ng/mL Sodium 139 (137-145) mmol/L Potassium 4.1 (3.5-5.1) mmol/L Chloride 110 H (98-107) mmol/L Carbon Dioxide 20 L (22-30) mmol/L Anion Gap 12.4 (5-15) MEQ/L BUN 23 H (7-17) mg/dL Creatinine 1.38 H (0.52-1.04) mg/dL Estimated GFR 40.8 ML/MIN Glucose 100 (74-106) mg/dL Calcium 9.4 (8.4-10.2) mg/dL Magnesium 1.7 (1.6-2.3) mg/dL Total Bilirubin 0.40 (0.2-1.3) mg/dL AST 27 (14-36) U/L ALT 17 (0-35) U/L Alkaline Phosphatase 88 (38-126) U/L Troponin I < 0.012 (0.000-0.034) ng/mL Serum Total Protein 7.3 (6.3-8.2) g/dL Albumin 4.6 (3.5-5.0) g/dL Urine Color (YELLOW) Urine Appearance (CLEAR) Urine pH (5-6) Ur Specific [place] (1.005-1.025) Urine Protein (Negative) Urine Ketones (NEGATIVE) Urine Blood (0-5) Aroldo/ul Urine Nitrite (NEGATIVE) Urine Bilirubin (NEGATIVE) Urine Urobilinogen (0-1) mg/dL Ur Leukocyte Esterase (NEGATIVE) Urine WBC (Auto) (0-5) /HPF Urine RBC (Auto) (0-2) /HPF U Epithel Cells (Auto) (FEW) /HPF Urine Bacteria (Auto) (NEGATIVE) /HPF Calcium Oxalate Crystal (NEGATIVE) /HPF Urine Mucus (Auto) (NEGATIVE) /HPF Urine Culture Reflexed (NO) Urine Glucose (NEGATIVE) mg/dL Urine Opiates Level (NEGATIVE) Ur Methadone (NEGATIVE) Urine Barbiturates (NEGATIVE) Ur Phencyclidine (PCP) (NEGATIVE) Urine Amphetamine (NEGATIVE) U Benzodiazepine Level (NEGATIVE) Urine Cocaine (NEGATIVE) Urine Marijuana (THC) (NEGATIVE) 07/10/20 Range/Units 13:08 WBC 4.4 (4.0-10.5) K/mm3 RBC 4.28 (4.1-5.4) M/mm3 Hgb 11.0 L (12.0-16.0) gm/dl Hct 36.3 (35-47) % MCV 84.8 (78-100) fl MCH 25.7 L (26-32) pg MCHC 30.3 L (32-36) g/dl RDW 14.8 H (11.5-14.0) % Plt Count 218 (150-450) K/mm3 MPV 10.7 (7.5-11.0) fl Gran % 76.2 H (36.0-66.0) % Eos # (Auto) 0.04 (0-0.5) Absolute Lymphs (auto) 0.69 L (1.0-4.6) Absolute Monos (auto) 0.30 (0.0-1.3) Lymphocytes % 15.6 L (24.0-44.0) % Monocytes % 6.8 (0.0-12.0) % Eosinophils % 0.9 (0.00-5.0) % Basophils % 0.5 (0.0-0.4) % Absolute Granulocytes 3.38 (1.4-6.9) Basophils # 0.02 (0-0.4) D-Dimer (215-500) ng/mL Sodium (137-145) mmol/L Potassium (3.5-5.1) mmol/L Chloride (98-107) mmol/L Carbon Dioxide (22-30) mmol/L Anion Gap (5-15) MEQ/L BUN (7-17) mg/dL Creatinine (0.52-1.04) mg/dL Estimated GFR ML/MIN Glucose (74-106) mg/dL Calcium (8.4-10.2) mg/dL Magnesium (1.6-2.3) mg/dL Total Bilirubin (0.2-1.3) mg/dL AST (14-36) U/L ALT (0-35) U/L Alkaline Phosphatase (38-126) U/L Troponin I (0.000-0.034) ng/mL Serum Total Protein (6.3-8.2) g/dL Albumin (3.5-5.0) g/dL Urine Color (YELLOW) Urine Appearance (CLEAR) Urine pH (5-6) Ur Specific [place] (1.005-1.025) Urine Protein (Negative) Urine Ketones (NEGATIVE) Urine Blood (0-5) Aroldo/ul Urine Nitrite (NEGATIVE) Urine Bilirubin (NEGATIVE) Urine Urobilinogen (0-1) mg/dL Ur Leukocyte Esterase (NEGATIVE) Urine WBC (Auto) (0-5) /HPF Urine RBC (Auto) (0-2) /HPF U Epithel Cells (Auto) (FEW) /HPF Urine Bacteria (Auto) (NEGATIVE) /HPF Calcium Oxalate Crystal (NEGATIVE) /HPF Urine Mucus (Auto) (NEGATIVE) /HPF Urine Culture Reflexed (NO) Urine Glucose (NEGATIVE) mg/dL Urine Opiates Level (NEGATIVE) Ur Methadone (NEGATIVE) Urine Barbiturates (NEGATIVE) Ur Phencyclidine (PCP) (NEGATIVE) Urine Amphetamine (NEGATIVE) U Benzodiazepine Level (NEGATIVE) Urine Cocaine (NEGATIVE) Urine Marijuana (THC) (NEGATIVE) - Progress Progress: improved Air Movement: good Progress Note: Patient reassessed. No active chest pain. Initial troponin negative. Awaiting troponin #2. D-dimer marginally elevated. D-dimer 555. Age-adjusted D-dimer is negative. No indication for CTA at this time. Case discussed with Dr. Nova covering Dr. Hidalgo who reviewed patient's chart and agrees that patient should be able to go home. I did speak the patient's road design draftsperson Dr. Navarro who also feels that patient would be okay to go home. Patient agrees to follow-up with her road design draftsperson Dr. Cruz within 48 hours for reevaluation. 07/10/20 13:54 07/10/20 15:21 07/10/20 16:37 Blood Culture(s) Obtained: No Antibiotics given: No Counseled pt/family regarding: lab results, diagnosis, rad results - Departure Departure Disposition: Home Clinical Impression: Chest pain Condition: Stable Critical Care Time: No Referrals: LLUVIA CHILDERS DO [Primary Care Provider] - Additional Instructions: Discharge/Care Plan GEOVANNY FREY was seen on 07/10/20 in the Emergency Room. The patient was counseled regarding Diagnosis,Lab results, Imaging studies, need for follow up and when to return to the Emergency Room. Prescriptions given: Discharge Note I have spoken with the patient and/or caregivers. I have explained the patient's condition, diagnosis and treatment plan based on the information available to me at this time. I have answered the patient's and/or caregiver's questions and addressed any concerns. The patient and/or caregivers have as good understanding of the patient's diagnosis, condition and treatment plan as can be expected at this point. The vital signs have been stable. The patient's condition is stable and appropriate for discharge from the emergency department. The patient will pursue further outpatient evaluation with the primary care physician or other designated or consulting physician as outlined in the discharge instructions. The patient and/or caregivers are agreeable to this plan of care and follow-up instructions have been explained in detail. The patient and/or caregivers have received these instruction. The patient/and or caregivers are aware that any significant change in condition or worsening of symptoms should prompt an immediate return to this or the closest emergency department or call 911.
--- NOTE | 2020-07-10 13:10 | XRAY ---
Indication: Chest pain. Comparison: May 30, 2020. Portable chest unchanged again demonstrating right hemidiaphragm elevation with minimal right base subsegmental atelectasis/scarring. Heart not enlarged again with right Port-A-Cath and right perihilar calcified nodes. No new/acute abnormalities.
[2020-07-10 13:17] LABS: Absolute Neutrophil Ct (ANC) 3.38 (1.4-6.9); BASOPHIL % 0.5 % (0.0-0.4); Basophil (Absolute #) 0.02 (0-0.4); Eosinophil % 0.9 % (0.00-5.0); Eosinophil (Absolute #) 0.04 (0-0.5); Hematocrit 36.3 % (35-47); Lymphocyte (Absolute #) 0.69 (1.0-4.6); Lymphocytes % 15.6 % (24.0-44.0); Mean Cell Volume 84.8 fl (78-100); Mean Corpuscular Hemoglobin 25.7 pg (26-32); Mean Corpuscular Hgb Concent. 30.3 g/dl (32-36); Mean Platelet Volume 10.7 fl (7.5-11.0); Monocytes % 6.8 % (0.0-12.0); Neutrophil % 76.2 % (36.0-66.0); Platelet Count 218 K/mm3 (150-450); Red Blood Count 4.28 M/mm3 (4.1-5.4); Red Cell Distribution Width 14.8 % (11.5-14.0); White Blood Count 4.4 K/mm3 (4.0-10.5)
[2020-07-10 13:25] LABS: ALBUMIN 4.6 g/dL (3.5-5.0); ANION GAP 12.4 MEQ/L (5-15); BILIRUBIN,TOTAL 0.4 mg/dL (0.2-1.3); Calcium 9.4 mg/dL (8.4-10.2); Creatinine 1 1.38 mg/dL (0.52-1.04); EST GLOMERULAR FILTRATION RATE 40.8 ML/MIN; MAGNESIUM 1.7 mg/dL (1.6-2.3); Potassium 4.1 mmol/L (3.5-5.1); Total Protein 7.3 g/dL (6.3-8.2)
[2020-07-10 15:04] LABS: Appearance SLIGHTLY CLOUDY (CLEAR); Bacteria RARE /HPF (NEGATIVE); Bilirubin NEGATIVE (NEGATIVE); Blood NEGATIVE Ery/ul (0-5); Epithelial Cells FEW /HPF (FEW); Glucose NEGATIVE (NEGATIVE); Ketones NEGATIVE (NEGATIVE); Leukocyte Esterase MODERATE (NEGATIVE); Mucus SLIGHT /HPF (NEGATIVE); Nitrite NEGATIVE (NEGATIVE); Protein,Urine Dip 30 (Negative); Specific Gravity 1.027 (1.005-1.025); Urobilinogen NEGATIVE mg/dL (0-1)
[2020-07-10 15:15] LABS: Barbiturate,Urine NEGATIVE (NEGATIVE); Benzodiazepine,Urine POSITIVE (NEGATIVE); Cocaine,Urine NEGATIVE (NEGATIVE); Methadone,Urine NEGATIVE (NEGATIVE); Opiate,Urine NEGATIVE (NEGATIVE); PCP,Urine NEGATIVE (NEGATIVE); THC,Urine NEGATIVE (NEGATIVE)
[2020-07-10 15:49] LABS: Amphetamine,Urine NEGATIVE (NEGATIVE)
[2020-07-10 16:11] VITALS: BP 118/66; PULSE 73
[2020-07-10 16:15] VITALS: O2SAT 95
== END 2020-07-10 16:55 | disposition home or self-care (01) ==
LOC: ED 12:07
DX: R07.9 Chest pain, unspecified (principal); F41.9 Anxiety disorder, unspecified; Z79.899 Other long term (current) drug therapy; Z79.01 Long term (current) use of anticoagulants
CPT/HCPCS: 36000; 36415; 71045; 80053; 80307; 81001; 83735; 84484; 85025; 85379; 87077; 87086; 87186; 93005; 93041; 94760; 99284; J1642

== ENCOUNTER 2020-08-18 00:04 | Emergency (ER) | payer MEDICARE ==
[2020-08-18 00:47] VITALS: O2SAT 98
--- NOTE | 2020-08-18 00:55 | ERPHSYRPT ---
- History of Present Illness Source: patient Patient Subjective Stated Complaint: "I'm coughing sooo bad." Triage Nursing Assessment: patient reported a 1.5 day onset of a non-productive cough. She has chronic bronchitis and COPD. Denied fevers at home. Wears home oxygen at 3 L/min via [place]. Denied chest pain, dizziness, syncope. Pupils 3mm bilateral. Symmetrical chest expansion. heart tones regular. Lungs vesicular with fine inspiratory crackles in the posterior bases. Peripheral pulses +3. Physician History: 65 yo wf w 3L O2 dep COPD presents w worsening cough x2 days. Pt denies fever/CP/worsening dyspnea/N/V/diarrhea. Timing/Duration: day(s) (2 days) Cough Quality/Degree: productive cough Possible Cause: frequent episodes Modifying Factors: Improves With: coughing Associated Symptoms: cough, No fever, No chills, No chest pain/soreness, No dizziness, No earache, No facial pain, No headache, No lightheadedness, No muscle aches, No nasal congestion, No nasal drainage, No shortness of breath, No sinus infection, No sore throat Allergies/Adverse Reactions: sumatriptan [From Imitrex] Allergy (Intermediate, Verified 08/18/20 00:34) Rash codeine Allergy (Mild, Verified 08/18/20 00:34) Rash MAKES SICK nitrofurantoin [From Macrobid] Allergy (Unknown, Verified 08/18/20 00:34) sumatriptan succinate [From Imitrex] Allergy (Verified 08/18/20 00:34) morphine Adverse Reaction (Severe, Verified 08/18/20 00:34) Headache MIGRAINES fentanyl Adverse Reaction (Intermediate, Verified 08/18/20 00:34) Headache hydrocodone bitartrate [From Vicodin] Adverse Reaction (Mild, Verified 08/18/20 00:34) Vomiting hydromorphone [From Dilaudid] Adverse Reaction (Mild, Verified 08/18/20 00:34) pt states makes heache worse. Home Medications: ALPRAZolam 1 MG [Xanax 1 mg] 1 mg PO TID 02/17/13 [History] Polyethylene Glycol 3350 17 gm [Miralax Powder 17GM PACKET] 34 gm PO BID 11/15/14 [History] Sennosides/Docusate Sodium [Senokot-S Tablet] 1 tab PO DAILY 04/25/15 [History] Promethazine HCl 25 mg [Phenergan 25 mg] 25 mg PO Q4HPRN PRN 05/11/15 [History] Cetirizine HCl/Pseudoephedrine [Zyrtec-D Tablet] 1 each PO DAILY 02/03/16 [History] Aspirin 81 mg PO DAILY 09/11/16 [History] Levothyroxine Sodium 50 Mcg [Synthroid 50 Mcg] 50 mcg PO DAILY 07/06/17 [History] Linaclotide [Linzess] 290 mcg PO DAILY 10/07/17 [History] Rizatriptan Benzoate [Maxalt] 10 mg PO BID PRN PRN 06/23/18 [History] Fluticasone Propionate [Flonase NASAL] 2 spray NS DAILY 01/19/19 [History] Guaifenesin 600 mg ER [Mucinex 600MG ER Tabs] 600 mg PO DAILY 04/05/19 [History] Dexlansoprazole [Dexilant] 60 mg PO DAILY 01/21/20 [History] Prucalopride Succinate [Motegrity] 2 mg PO DAILY 01/21/20 [History] Fluticasone/Umeclidin/Vilanter [Trelegy Ellipta 100-62.5-25] 200 units IH DAILY 03/01/20 [History] Albuterol 2.5 mg/0.5 ml [PROVENTIL Solution 2.5 MG/0.5 ML] 2.5 mg IH Q6H PRN PRN 07/23/20 [History] Albuterol 2.5 mg/3 ml Neb [Proventil 2.5 mg/3 ml Neb] 2.5 mg IH QID 07/23/20 [History] Ergocalciferol (Vitamin D2) [Vitamin D] 50,000 unit PO WEEKLY 07/23/20 [History] Hx Tetanus, Diphtheria Vaccination/Date Given: Yes Hx Influenza Vaccination/Date Given: Yes Hx Pneumococcal Vaccination/Date Given: Yes Travel Risk - International Travel Have you traveled outside of the country in past 3 weeks: No - Coronavirus Screening Are you exhibiting any of the following symptoms?: No Close contact with a COVID-19 positive Pt in past 14-21 Days: No - Vaccine Status Have you recieved a 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: No - Review of Systems Constitutional: No Symptoms Eyes: No Symptoms Ears, Nose, & Throat: No Symptoms Respiratory: Cough Cardiac: No Symptoms Abdominal/Gastrointestinal: No Symptoms Genitourinary Symptoms: No Symptoms Musculoskeletal: No Symptoms Skin: No Symptoms Neurological: No Symptoms Psychological: No Symptoms Endocrine: No Symptoms Hematologic/Lymphatic: No Symptoms Immunological/Allergic: No Symptoms - Past Medical History Pertinent Past Medical History: Yes Neurological History: Migraines ENT History: Cataracts Cardiac History: No Pertinent History Respiratory History: Bronchitis, COPD, Pulmonary Embolism Endocrine Medical History: Hypothyroidism Musculoskeletal History: Osteoarthritis GI Medical History: GERD, Other History: Other Psycho-Social History: Anxiety, Panic Disorder Female Reproductive Disorders: No Pertinent History Other Medical History: frequent uti's, chronic pseudo obstruction, blood clot - Past Surgical History Past Surgical History: Yes Neuro Surgical History: No Pertinent History Cardiac: No Pertinent History Respiratory: No Pertinent History Gastrointestinal: Cholecystectomy, Other Genitourinary: No Pertinent History Musculoskeletal: No Pertinent History Female Surgical History: No Pertinent History Other Surgical History: all of large intestine removed - Social History Smoking Status: Never smoker Exposure to second hand smoke: Yes Alcohol Use: None Drug Use: none Patient Lives Alone: Yes Significant Family History: no pertinent family hx - Female History Hx Now: No - Nursing Vital Signs Nursing Vital Signs: Initial Vital Signs Pulse Rate 107 H 08/18/20 00:06 Respiratory Rate 20 08/18/20 00:06 O2 Sat by Pulse Oximetry 98 08/18/20 00:06 Pain Scale Pain Intensity 2 Mildly tachy - Physical Exam General Appearance: no apparent distress Eye Exam: PERRL/EOMI, eyes nml inspection Ears, Nose, Throat Exam: normal ENT inspection, TMs normal, pharynx normal, moist mucous membranes Neck Exam: normal inspection, non-tender, supple, full range of motion, No meningismus, No mass, No Brudzinski, No Kernig's Respiratory Exam: normal breath sounds, lungs clear, airway intact, No respiratory distress Cardiovascular Exam: tachycardia (Mild) Gastrointestinal/Abdomen Exam: soft, normal bowel sounds, No tenderness Back Exam: normal inspection, normal range of motion, No CVA tenderness Extremity Exam: normal inspection, normal range of motion Neurologic Exam: alert, 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, cooperative, ux developer II-XII nml as tested, normal mood/affect, nml station & gait, sensation nml, No motor deficits, No sensory deficit Skin Exam: normal color, warm, dry, No rash Lymphatic Exam: No adenopathy SpO2 Interpretation: normal SpO2: 98 O2 Delivery: Nasal Cannula - Course Nursing assessment & vital signs reviewed: Yes - Progress Progress Note: 08/18/20 01:49 Pt states that she can not take Tussionex due to insurance not paying for it and her codeine allergy. She also states that [employer] do not work for her. Counseled pt/family regarding: need for follow-up - Departure Departure Disposition: Home Clinical Impression: Chronic bronchitis Condition: Stable Critical Care Time: No Referrals: LLUVIA CHILDERS DO [Primary Care Provider] - Instructions: Chronic Bronchitis (DC), Cough, Adult (DC) Additional Instructions: Follow up with family MD next week Start doxycycline twice a day for 1 week Return to ER for worsening cough/Increasing shortness of breath/Temperature greater than 100.5 Prescriptions: Doxycycline Monohydrate 100 mg PO BID 7 Days #14 tablet
[2020-08-18 01:04] VITALS: BP 106/77; PULSE 96
== END 2020-08-18 01:06 | disposition home or self-care (01) ==
LOC: ED 00:04
DX: J44.9 Chronic obstructive pulmonary disease, unspecified (principal); Z99.81 Dependence on supplemental oxygen; Z79.899 Other long term (current) drug therapy; Z86.711 Personal history of pulmonary embolism; E03.9 Hypothyroidism, unspecified; R00.0 Tachycardia, unspecified
CPT/HCPCS: 99283

== ENCOUNTER 2020-11-17 16:01 | Emergency (ER) | payer MEDICARE ==
[2020-11-17 16:07] VITALS: BP 127/81
[2020-11-17] MEDS ORDERED: solu-MEDROL 125 MG, Sterile H2O 10 ml 10 ML IV ONE ×2 (16:10)
[2020-11-17] MEDS ORDERED: DUONEB 0.5-3 MG/3 ml Neb IH ONE ×2 (16:10→16:19)
[2020-11-17] MEDS ORDERED: PULMICORT 0.5 MG/2 ML RESPULES IH ONE (16:12)
[2020-11-17 16:20] VITALS: O2SAT 96
[2020-11-17] MEDS ORDERED: solu-MEDROL ONE (16:22)
[2020-11-17] MEDS ORDERED: Sterile H2O 10 ml IJ ONE (16:22)
--- NOTE | 2020-11-17 16:28 | ERPHSYRPT ---
- History of Present Illness Time Seen by Provider: 11/17/20 16:27 Source: patient Exam Limitations: no limitations Patient Subjective Stated Complaint: pt here for increase sob today, took a breathing treatment today with no relief. Triage Nursing Assessment: pt alert, resp labored at times,dry cough , skin w/d/p. port a cath to chest, wheezes her , Physician History: Patient is 65-year-old female came to the emergency room with complaining of shortness of breath for last 12 hours. She started having difficulty in breathing around 2:00 in the morning which gradually got worse even after she took her nebulizer treatment. She denies any fever chills nausea vomiting chest pain diarrhea headache dizziness. Patient has been fully vaccinated For coronavirus. Timing/Duration: today Activities at Onset: none Severity of Dyspnea-Max: moderate Severity of Dyspnea-Current: moderate Possible Cause: frequent episodes Modifying Factors: Improves With: albuterol nebulizer Associated Symptoms: cough, No chest pain/discomfort, No muscle spasms hands, No productive cough, No tingling face Allergies/Adverse Reactions: sumatriptan [From Imitrex] Allergy (Intermediate, Verified 08/18/20 00:34) Rash codeine Allergy (Mild, Verified 08/18/20 00:34) Rash MAKES SICK nitrofurantoin [From Macrobid] Allergy (Unknown, Verified 08/18/20 00:34) sumatriptan succinate [From Imitrex] Allergy (Verified 08/18/20 00:34) morphine Adverse Reaction (Severe, Verified 08/18/20 00:34) Headache MIGRAINES fentanyl Adverse Reaction (Intermediate, Verified 08/18/20 00:34) Headache hydrocodone bitartrate [From Vicodin] Adverse Reaction (Mild, Verified 08/18/20 00:34) Vomiting hydromorphone [From Dilaudid] Adverse Reaction (Mild, Verified 08/18/20 00:34) pt states makes heache worse. Home Medications: ALPRAZolam 1 MG [Xanax 1 mg] 1 mg PO TID 02/17/13 [History] Polyethylene Glycol 3350 17 gm [Miralax Powder 17GM PACKET] 34 gm PO BID 11/15/14 [History] Sennosides/Docusate Sodium [Senokot-S Tablet] 1 tab PO DAILY 04/25/15 [History] Promethazine HCl 25 mg [Phenergan 25 mg] 25 mg PO Q4HPRN PRN 05/11/15 [History] Cetirizine HCl/Pseudoephedrine [Zyrtec-D Tablet] 1 each PO DAILY 02/03/16 [History] Aspirin 81 mg PO DAILY 09/11/16 [History] Levothyroxine Sodium 50 Mcg [Synthroid 50 Mcg] 50 mcg PO DAILY 07/06/17 [History] Linaclotide [Linzess] 290 mcg PO DAILY 10/07/17 [History] Rizatriptan Benzoate [Maxalt] 10 mg PO BID PRN PRN 06/23/18 [History] Fluticasone Propionate [Flonase NASAL] 2 spray NS DAILY 01/19/19 [History] Guaifenesin 600 mg ER [Mucinex 600MG ER Tabs] 600 mg PO DAILY 04/05/19 [History] Dexlansoprazole [Dexilant] 60 mg PO DAILY 01/21/20 [History] Prucalopride Succinate [Motegrity] 2 mg PO DAILY 01/21/20 [History] Fluticasone/Umeclidin/Vilanter [Trelegy Ellipta 100-62.5-25] 200 units IH DAILY 03/01/20 [History] Albuterol 2.5 mg/0.5 ml [PROVENTIL Solution 2.5 MG/0.5 ML] 2.5 mg IH Q6H PRN PRN 07/23/20 [History] Albuterol 2.5 mg/3 ml Neb [Proventil 2.5 mg/3 ml Neb] 2.5 mg IH QID 07/23/20 [History] Ergocalciferol (Vitamin D2) [Vitamin D] 50,000 unit PO WEEKLY 07/23/20 [History] Hx Tetanus, Diphtheria Vaccination/Date Given: Yes Hx Influenza Vaccination/Date Given: Yes Hx Pneumococcal Vaccination/Date Given: Yes Immunizations Up to Date: Yes Travel Risk - International Travel Have you traveled outside of the country in past 3 weeks: No - Coronavirus Screening Are you exhibiting any of the following symptoms?: Yes Symptoms: Cough: New Onset, Shortness of Breath Close contact with a COVID-19 positive Pt in past 14-21 Days: No - Vaccine Status Have you recieved a 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: Yes [employer]: [employer] - Vaccination Dates Date of 2cond Vaccination (if applicable): n/a - Review of Systems Constitutional: No Fever, No Chills Eyes: No Symptoms Ears, Nose, & Throat: No Symptoms Respiratory: Cough, Dyspnea, Dyspnea on Exertion (SMITH), Wheezing, No Cyanosis Cardiac: No Chest Pain, No Edema, No Syncope Abdominal/Gastrointestinal: No Abdominal Pain, No Nausea, No Vomiting, No Diarrhea Genitourinary Symptoms: No Dysuria Musculoskeletal: No Back Pain, No Neck Pain Skin: No Rash Neurological: No Dizziness, No Focal Weakness, No Sensory Changes Psychological: No Symptoms Endocrine: No Symptoms All Other Systems: Reviewed and Negative - Past Medical History Pertinent Past Medical History: Yes Neurological History: Migraines ENT History: Cataracts Cardiac History: No Pertinent History Respiratory History: Bronchitis, COPD, Pulmonary Embolism Endocrine Medical History: Hypothyroidism Musculoskeletal History: Osteoarthritis GI Medical History: GERD, Other History: Other Psycho-Social History: Anxiety, Panic Disorder Female Reproductive Disorders: No Pertinent History Other Medical History: frequent uti's, chronic pseudo obstruction, blood clot - Past Surgical History Past Surgical History: Yes Neuro Surgical History: No Pertinent History Cardiac: No Pertinent History Respiratory: No Pertinent History Gastrointestinal: Cholecystectomy, Other Genitourinary: No Pertinent History Musculoskeletal: No Pertinent History Female Surgical History: No Pertinent History Other Surgical History: all of large intestine removed - Social History Smoking Status: Never smoker Exposure to second hand smoke: Yes Alcohol Use: None Drug Use: none Patient Lives Alone: No Significant Family History: no pertinent family hx - Female History Hx Last Menstrual Period: post - Nursing Vital Signs Nursing Vital Signs: Initial Vital Signs Temperature 97.7 F 11/17/20 16:05 Pulse Rate 110 H 11/17/20 16:05 Respiratory Rate 26 H 11/17/20 16:05 Blood Pressure 127/81 11/17/20 16:05 O2 Sat by Pulse Oximetry 97 11/17/20 16:05 Pain Scale Pain Intensity 6 - Physical Exam General Appearance: no apparent distress, alert Eye Exam: PERRL/EOMI Neck Exam: normal inspection, supple Respiratory Exam: diminished breath sounds, rhonchi, wheezing Cardiovascular/Chest Exam: normal heart sounds, regular rate/rhythm Abdominal/Gastrointestinal Exam: soft, No tenderness, No distention, No mass Extremity Exam: non-tender, normal range of motion, normal inspection, no calf tenderness, no pedal edema Neurologic Exam: alert, 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, cooperative, or rn II-XII nml as tested, sensation nml, No motor deficits Skin Exam: normal color, warm, No dry SpO2 Interpretation: normal SpO2: 96 O2 Delivery: Room Air - Course Nursing assessment & vital signs reviewed: Yes EKG Interpreted by Me: Sinus Rhythm - Radiology Exams Chest X-ray Interpretation: Reviewed by me Ordered Tests: Active Orders 24 hr Category Date Time Status EKG-ER Only STAT Care 11/17/20 16:10 Active Oxygen-ED Only Nasal Cannula 2 lpm Care 11/17/20 16:10 Active CHEST 2 VIEWS (PA AND LAT) Stat Exams 11/17/20 16:49 Taken CBC W DIFF Stat Lab 11/17/20 16:36 Completed CMP Stat Lab 11/17/20 16:36 Completed D-DIMER QUANTITATIVE Stat Lab 11/17/20 16:36 Completed NT PRO BNP Stat Lab 11/17/20 16:36 Completed TROPONIN Q3H Lab 11/17/20 16:36 Completed TROPONIN Q3H Lab 11/17/20 19:15 Ordered TROPONIN Q3H Lab 11/17/20 22:15 Ordered TROPONIN Q3H Lab 11/18/20 01:15 Ordered TROPONIN Q3H Lab 11/18/20 04:15 Ordered Respiratory Therapy Assessment DAILY RT 11/17/20 16:58 Active Medication Summary Discontinued Medications Generic Name Dose Route Start Last Admin Trade Name Freq PRN Reason Stop Dose Admin Albuterol/Ipratropium 3 ml 11/17/20 16:10 11/17/20 16:23 Duoneb 0.5-3 Mg/3 Ml Neb IH 11/17/20 16:11 3 ml STAT ONE Administration Albuterol/Ipratropium Confirm 11/17/20 16:19 Duoneb 0.5-3 Mg/3 Ml Neb Administered 11/17/20 16:20 Dose 3 ml IH .STK-MED ONE Budesonide 0.5 mg 11/17/20 16:12 Pulmicort 0.5 Mg/2 Ml Respules IH 11/17/20 16:13 ONCE ONE Methylprednisolone Sodium 0 mg 11/17/20 16:10 11/17/20 16:23 Succinate 125 mg/ Sterile IV 11/17/20 16:11 125 mg Water 10 ml STAT ONE Administration Methylprednisolone Sodium Succinate Confirm 11/17/20 16:22 Solu-Medrol Administered 11/17/20 16:23 Dose 125 mg .ROUTE .STK-MED ONE Sterile Water Confirm 11/17/20 16:22 Sterile H2o 10 Ml Administered 11/17/20 16:23 Dose 10 ml IJ .STK-MED ONE Lab/Rad Data: Laboratory Result Diagrams 11/17/20 16:36 11/17/20 16:36 Laboratory Results 11/17/20 11/17/20 11/17/20 Range/Units 16:36 16:36 16:36 WBC (4.0-10.5) K/mm3 RBC (4.1-5.4) M/mm3 Hgb (12.0-16.0) gm/dl Hct (35-47) % MCV (78-100) fl MCH (26-32) pg MCHC (32-36) g/dl RDW (11.5-14.0) % Plt Count (150-450) K/mm3 MPV (7.5-11.0) fl Gran % (36.0-66.0) % Eos # (Auto) (0-0.5) Absolute Lymphs (auto) (1.0-4.6) Absolute Monos (auto) (0.0-1.3) Lymphocytes % (24.0-44.0) % Monocytes % (0.0-12.0) % Eosinophils % (0.00-5.0) % Basophils % (0.0-0.4) % Absolute Granulocytes (1.4-6.9) Basophils # (0-0.4) D-Dimer 1069 H* (215-500) ng/mL Sodium 141 (137-145) mmol/L Potassium 3.7 (3.5-5.1) mmol/L Chloride 113 H (98-107) mmol/L Carbon Dioxide 16 L* (22-30) mmol/L Anion Gap 14.9 (5-15) MEQ/L BUN 24 H (7-17) mg/dL Creatinine 1.19 H (0.52-1.04) mg/dL Estimated GFR 48.4 ML/MIN Glucose 118 H (74-106) mg/dL Calcium 8.8 (8.4-10.2) mg/dL Total Bilirubin 0.40 (0.2-1.3) mg/dL AST 39 H (14-36) U/L ALT 18 (0-35) U/L Alkaline Phosphatase 84 (38-126) U/L Troponin I < 0.012 (0.000-0.034) ng/mL NT-Pro-B Natriuret Pep 95.8 (0-900) pg/mL Serum Total Protein 6.9 (6.3-8.2) g/dL Albumin 4.1 (3.5-5.0) g/dL 11/17/20 Range/Units 16:36 WBC 5.5 (4.0-10.5) K/mm3 RBC 3.95 L (4.1-5.4) M/mm3 Hgb 10.5 L (12.0-16.0) gm/dl Hct 33.7 L (35-47) % MCV 85.3 (78-100) fl MCH 26.6 (26-32) pg MCHC 31.2 L (32-36) g/dl RDW 16.4 H (11.5-14.0) % Plt Count 200 (150-450) K/mm3 MPV 10.7 (7.5-11.0) fl Gran % 75.4 H (36.0-66.0) % Eos # (Auto) 0.04 (0-0.5) Absolute Lymphs (auto) 0.98 L (1.0-4.6) Absolute Monos (auto) 0.32 (0.0-1.3) Lymphocytes % 17.7 L (24.0-44.0) % Monocytes % 5.8 (0.0-12.0) % Eosinophils % 0.7 (0.00-5.0) % Basophils % 0.4 (0.0-0.4) % Absolute Granulocytes 4.18 (1.4-6.9) Basophils # 0.02 (0-0.4) D-Dimer (215-500) ng/mL Sodium (137-145) mmol/L Potassium (3.5-5.1) mmol/L Chloride (98-107) mmol/L Carbon Dioxide (22-30) mmol/L Anion Gap (5-15) MEQ/L BUN (7-17) mg/dL Creatinine (0.52-1.04) mg/dL Estimated GFR ML/MIN Glucose (74-106) mg/dL Calcium (8.4-10.2) mg/dL Total Bilirubin (0.2-1.3) mg/dL AST (14-36) U/L ALT (0-35) U/L Alkaline Phosphatase (38-126) U/L Troponin I (0.000-0.034) ng/mL NT-Pro-B Natriuret Pep (0-900) pg/mL Serum Total Protein (6.3-8.2) g/dL Albumin (3.5-5.0) g/dL - Departure Departure Disposition: Home Clinical Impression: Acute exacerbation of chronic bronchitis Condition: Stable Critical Care Time: No Referrals: LLUVIA CHILDERS, [Primary Care Provider] - Follow Up with PCP/3 days Instructions: Exacerbation of COPD (DC) Additional Instructions: Discharge/Care Plan GEOVANNY FREY was seen on 11/17/20 in the Emergency Room. The patient was counseled regarding Diagnosis,Lab results, Imaging studies, need for follow up and when to return to the Emergency Room. Prescriptions given: Discharge Note I have spoken with the patient and/or caregivers. I have explained the patient's condition, diagnosis and treatment plan based on the information available to me at this time. I have answered the patient's and/or caregiver's questions and addressed any concerns. The patient and/or caregivers have as good understanding of the patient's diagnosis, condition and treatment plan as can be expected at this point. The vital signs have been stable. The patient's condition is stable and appropriate for discharge from the emergency department. The patient will pursue further outpatient evaluation with the primary care physician or other designated or consulting physician as outlined in the discharge instructions. The patient and/or caregivers are agreeable to this plan of care and follow-up instructions have been explained in detail. The patient and/or caregivers have received these instruction. The patient/and or caregivers are aware that any significant change in condition or worsening of symptoms should prompt an immediate return to this or the closest emergency department or call 911. GEOVANNY FREY was seen on 11/17/20 n the Emergency Room. At that time you were treated for an emergent condition, during your visit Laboratory, Radiology and/or other procedures may have been ordered. It is very important that you follow-up with your Primary Care Physician LLUVIA CHILDERS DO within the next 24-48 hours to review your Emergency Room visit and the final results of testing that was ordered. Some test results such as Urine Cultures, Blood Cultures, and other cultures if ordered will not be finalized for 24-48 hours. If you do not have a Primary Care Provider please call the medical records department at [phone] to obtain a copy of your results or you may sign into our patient portal to obtain these results by visiting us @ [email or web address] and completing the following steps: 1. Click on the Patient Portal link 2. Click the Patient Self Enrollment Link to complete the enrollment form and entering your 3. Once the enrollment form is completed you will receive an email with a temporary ID and password at the email address you provided. 4. Next choose a user name and password. Your user name must be at least 4 characters long and your password must be at least 4 characters long. 5. Choose a security question from the list and provide your answer to the question. If you already have signed into the Health Portal you may access your Health Care Information 07/09 by the following steps: 1. Login to our website @ [email or web address] 2. Enter your original user name and password. FAQS The [facility] Portal is an online tool that contains your Lab Results, Radiology Reports, Visit History, Discharge Instructions and Health Summary Lab and Radiology Results will not be available for 72 hours on the portal. The Portal is a secure site, passwords are encryted and URLs are re-written so they cannot be copied and pasted. You and authorized family members are the only ones who can access your Portal. Also there is a timeout feature that protects your information if you leave the Portal page open. If you have technical difficulty please use the Contact Us link on the page this will allow you to submit any questions you have regarding the Portal or you may contact the Medical Record Department at [phone] ext [phone]. Prescriptions: Methylprednisolone Packet [Medrol Dosepack] 4 mg PO UD #30 packet Azithromycin [Zithromax] 250 mg PO UD 5 Days #6 tablet
[2020-11-17 16:55] LABS: ALBUMIN 4.1 g/dL (3.5-5.0); ANION GAP 14.9 MEQ/L (5-15); BILIRUBIN,TOTAL 0.4 mg/dL (0.2-1.3); Calcium 8.8 mg/dL (8.4-10.2); Creatinine 1 1.19 mg/dL (0.52-1.04); EST GLOMERULAR FILTRATION RATE 48.4 ML/MIN; NT PRO BNP 95.8 pg/mL (0-900); Potassium 3.7 mmol/L (3.5-5.1); Total Protein 6.9 g/dL (6.3-8.2)
[2020-11-17 17:02] LABS: Absolute Neutrophil Ct (ANC) 4.18 (1.4-6.9); BASOPHIL % 0.4 % (0.0-0.4); Basophil (Absolute #) 0.02 (0-0.4); Eosinophil % 0.7 % (0.00-5.0); Eosinophil (Absolute #) 0.04 (0-0.5); Hematocrit 33.7 % (35-47); Hemoglobin 10.5 gm/dl (12.0-16.0); Lymphocyte (Absolute #) 0.98 (1.0-4.6); Lymphocytes % 17.7 % (24.0-44.0); Mean Cell Volume 85.3 fl (78-100); Mean Corpuscular Hemoglobin 26.6 pg (26-32); Mean Corpuscular Hgb Concent. 31.2 g/dl (32-36); Mean Platelet Volume 10.7 fl (7.5-11.0); Monocyte (Absolute #) 0.32 (0.0-1.3); Monocytes % 5.8 % (0.0-12.0); Neutrophil % 75.4 % (36.0-66.0); Platelet Count 200 K/mm3 (150-450); Red Blood Count 3.95 M/mm3 (4.1-5.4); Red Cell Distribution Width 16.4 % (11.5-14.0); White Blood Count 5.5 K/mm3 (4.0-10.5)
[2020-11-17 17:29] VITALS: PULSE 76
--- NOTE | 2020-11-18 08:48 | XRAY ---
Indication: Cough and short of breath. Comparison: October 26, 2020. PA/lateral chest again demonstrates minimal bibasilar subsegmental atelectasis/scarring, right hilar calcified nodes, and right Port-A-Cath. Remaining heart and lungs unremarkable. No new/acute abnormalities.
== END 2020-11-17 17:32 | disposition home or self-care (01) ==
LOC: ED 16:01
DX: J44.1 Chronic obstructive pulmonary disease with (acute) exacerbation (principal); J20.9 Acute bronchitis, unspecified; R06.02 Shortness of breath; E03.9 Hypothyroidism, unspecified; Z20.822 Contact with and (suspected) exposure to COVID-19; Z79.899 Other long term (current) drug therapy
CPT/HCPCS: 36415; 71046; 80053; 83880; 84484; 85025; 85379; 93005; 94640; 96374; 99284; J1642; J2930; A9270-GY

== ENCOUNTER 2020-12-24 13:10 | Emergency (ER) | payer MEDICARE ==
[2012-11-05 17:17] VITALS: BP 100/62
--- NOTE | 2020-12-24 13:12 | ERPHSYRPT ---
- History of Present Illness Time Seen by Provider: 12/24/20 13:12 Source: patient Exam Limitations: no limitations Physician History: This is a 65-year-old white female who is a patient of Dr. Perry and presents with multiple complaints. Patient is in the emergency room often with multiple complaints. Patient is complaining today of some shortness of breath as well as some dysuria. Patient has a history of migraine headaches, gastroesophageal reflux disease, irritable bowel syndrome, oxygen dependent COPD, coronary disease, pulmonary embolism, chronic kidney disease, hypothyroidism, chronic anxiety, panic attacks, chronic recurring constipation, chronic nausea and chronic shortness of breath. Yesterday, through the outpatient clinic, with patient was given intravenous fluids to treat dehydration. A urinalysis was performed on 12/07/2020 and E. coli grew out of that specimen the patient was not started on antibiotic therapy. Patient is scheduled to see an infectious disease specialist on 12/31/2020. Timing/Duration: worse, other (Chronic) Allergies/Adverse Reactions: sumatriptan [From Imitrex] Allergy (Intermediate, Verified 11/21/20 13:27) Rash codeine Allergy (Mild, Verified 11/21/20 13:27) Rash MAKES SICK nitrofurantoin [From Macrobid] Allergy (Unknown, Verified 11/21/20 13:27) sumatriptan succinate [From Imitrex] Allergy (Verified 11/21/20 13:27) morphine Adverse Reaction (Severe, Verified 11/21/20 13:27) Headache MIGRAINES fentanyl Adverse Reaction (Intermediate, Verified 11/21/20 13:27) Headache hydrocodone bitartrate [From Vicodin] Adverse Reaction (Mild, Verified 11/21/20 13:27) Vomiting hydromorphone [From Dilaudid] Adverse Reaction (Mild, Verified 11/21/20 13:27) pt states makes heache worse. Home Medications: ALPRAZolam 1 MG [Xanax 1 mg] 1 mg PO TID 02/17/13 [History] Polyethylene Glycol 3350 17 gm [Miralax Powder 17GM PACKET] 34 gm PO BID 11/15/14 [History] Sennosides/Docusate Sodium [Senokot-S Tablet] 1 tab PO DAILY 04/25/15 [History] Promethazine HCl 25 mg [Phenergan 25 mg] 25 mg PO Q4HPRN PRN 05/11/15 [History] Cetirizine HCl/Pseudoephedrine [Zyrtec-D Tablet] 1 each PO DAILY 02/03/16 [History] Aspirin 81 mg PO DAILY 09/11/16 [History] Levothyroxine Sodium 50 Mcg [Synthroid 50 Mcg] 50 mcg PO DAILY 07/06/17 [History] Linaclotide [Linzess] 290 mcg PO DAILY 10/07/17 [History] Rizatriptan Benzoate [Maxalt] 10 mg PO BID PRN PRN 06/23/18 [History] Fluticasone Propionate [Flonase NASAL] 2 spray NS DAILY 01/19/19 [History] Guaifenesin 600 mg ER [Mucinex 600MG ER Tabs] 600 mg PO DAILY 04/05/19 [History] Dexlansoprazole [Dexilant] 60 mg PO DAILY 01/21/20 [History] Prucalopride Succinate [Motegrity] 2 mg PO DAILY 01/21/20 [History] Fluticasone/Umeclidin/Vilanter [Trelegy Ellipta 100-62.5-25] 200 units IH DAILY 03/01/20 [History] Albuterol 2.5 mg/3 ml Neb [Proventil 2.5 mg/3 ml Neb] 2.5 mg IH QID 07/23/20 [History] Hx Tetanus, Diphtheria Vaccination/Date Given: Yes Hx Influenza Vaccination/Date Given: Yes Hx Pneumococcal Vaccination/Date Given: Yes Travel Risk - Vaccine Status Have you recieved a 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: Yes 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[employer] - Vaccination Dates Date of 2cond Vaccination (if applicable): n/a - Past Medical History Pertinent Past Medical History: Yes Neurological History: Migraines ENT History: Cataracts Cardiac History: No Pertinent History Respiratory History: Bronchitis, COPD, Pulmonary Embolism Endocrine Medical History: Hypothyroidism Musculoskeletal History: Osteoarthritis GI Medical History: GERD, Other History: Other Psycho-Social History: Anxiety, Panic Disorder Female Reproductive Disorders: No Pertinent History Other Medical History: frequent uti's, chronic pseudo obstruction, blood clot - Past Surgical History Past Surgical History: Yes Neuro Surgical History: No Pertinent History Cardiac: No Pertinent History Respiratory: No Pertinent History Gastrointestinal: Cholecystectomy, Other Genitourinary: No Pertinent History Musculoskeletal: No Pertinent History Female Surgical History: No Pertinent History Other Surgical History: all of large intestine removed - Social History Smoking Status: Never smoker Exposure to second hand smoke: Yes Alcohol Use: None Drug Use: none Patient Lives Alone: No Significant Family History: no pertinent family hx - Nursing Vital Signs Nursing Vital Signs: Initial Vital Signs Temperature 96.4 F 12/24/20 13:14 Pulse Rate 106 H 12/24/20 13:14 Respiratory Rate 22 12/24/20 13:14 Blood Pressure 124/84 12/24/20 13:14 O2 Sat by Pulse Oximetry 98 12/24/20 13:14 Pain Scale Pain Intensity 4 - Physical Exam SpO2 Interpretation: normal Ordered Tests: Active Orders 24 hr Category Date Time Status Cv Rn STAT Care 12/24/20 13:44 Active EKG-ER Only STAT Care 12/24/20 13:43 Active IV Insertion STAT Care 12/24/20 13:43 Active Oxygen-ED Only Nasal Cannula 2 lpm Care 12/24/20 13:50 Active Pulse Oximetry (ED) STAT Care 12/24/20 13:43 Active CHEST 1 VIEW (PORTABLE) Stat Exams 12/24/20 13:43 Completed CBC W DIFF Stat Lab 12/24/20 14:45 Completed CMP Stat Lab 12/24/20 14:45 Completed CULTURE,URINE Stat Lab 12/24/20 14:05 Ordered NT PRO BNP Stat Lab 12/24/20 14:45 Completed TROPONIN Q3H Lab 12/24/20 14:45 Completed TROPONIN Q3H Lab 12/24/20 16:45 Ordered TROPONIN Q3H Lab 12/24/20 19:45 Ordered TROPONIN Q3H Lab 12/24/20 22:45 Ordered TROPONIN Q3H Lab 12/25/20 01:45 Ordered UA W/RFX UR CULTURE Stat Lab 12/24/20 14:05 Completed Medication Summary Discontinued Medications Generic Name Dose Route Start Last Admin Trade Name Freq PRN Reason Stop Dose Admin Sodium Chloride 1,000 mls @ 999 mls/hr 12/24/20 13:43 12/24/20 15:12 Sodium Chloride 0.9% 1000 Ml IV 12/24/20 14:43 Infused .Q1H1M STA Infusion Sodium Chloride Confirm 12/24/20 14:10 Sodium Chloride 0.9% 1000 Ml Administered 12/24/20 14:11 Dose 1,000 mls @ ud .ROUTE .STK-MED ONE Ceftriaxone Sodium/Dextrose 1 g in 50 mls @ 100 mls/hr 12/24/20 15:09 12/24/20 15:59 Rocephin 1 Gm-D5w 50 Ml Bag IV 12/24/20 15:38 Infused STAT STA Infusion Ceftriaxone Sodium/Dextrose Confirm 12/24/20 15:26 Rocephin 1 Gm-D5w 50 Ml Bag Administered 12/24/20 15:27 Dose 1 g in 50 mls @ ud IV .K-MED ONE Lab/Rad Data: Laboratory Result Diagrams 12/24/20 14:45 12/24/20 14:45 Laboratory Results 12/24/20 12/24/20 12/24/20 Range/Units 14:45 14:45 14:45 WBC 4.0 (4.0-10.5) K/mm3 RBC 3.45 L (4.1-5.4) M/mm3 Hgb 9.1 L (12.0-16.0) gm/dl Hct 29.7 L (35-47) % MCV 86.1 (78-100) fl MCH 26.4 (26-32) pg MCHC 30.6 L (32-36) g/dl RDW 15.7 H (11.5-14.0) % Plt Count 166 (150-450) K/mm3 MPV 10.4 (7.5-11.0) fl Gran % 72.6 H (36.0-66.0) % Eos # (Auto) 0.06 (0-0.5) Absolute Lymphs (auto) 0.68 L (1.0-4.6) Absolute Monos (auto) 0.33 (0.0-1.3) Lymphocytes % 17.1 L (24.0-44.0) % Monocytes % 8.3 (0.0-12.0) % Eosinophils % 1.5 (0.00-5.0) % Basophils % 0.5 (0.0-0.4) % Absolute Granulocytes 2.88 (1.4-6.9) Basophils # 0.02 (0-0.4) Sodium 141 (137-145) mmol/L Potassium 4.0 (3.5-5.1) mmol/L Chloride 116 H (98-107) mmol/L Carbon Dioxide 17 L (22-30) mmol/L Anion Gap 11.8 (5-15) MEQ/L BUN 16 (7-17) mg/dL Creatinine 1.10 H (0.52-1.04) mg/dL Estimated GFR 53.0 ML/MIN Glucose 95 (74-106) mg/dL Calcium 8.8 (8.4-10.2) mg/dL Total Bilirubin 0.40 (0.2-1.3) mg/dL AST 26 (14-36) U/L ALT 16 (0-35) U/L Alkaline Phosphatase 78 (38-126) U/L Troponin I < 0.012 (0.000-0.034) ng/mL NT-Pro-B Natriuret Pep 362 (0-900) pg/mL Serum Total Protein 6.0 L (6.3-8.2) g/dL Albumin 3.5 (3.5-5.0) g/dL Urine Color (YELLOW) Urine Appearance (CLEAR) Urine pH (5-6) Ur Specific [place] (1.005-1.025) Urine Protein (Negative) Urine Ketones (NEGATIVE) Urine Blood (0-5) Aroldo/ul Urine Nitrite (NEGATIVE) Urine Bilirubin (NEGATIVE) Urine Urobilinogen (0-1) mg/dL Ur Leukocyte Esterase (NEGATIVE) Urine WBC (Auto) (0-5) /HPF Urine RBC (Auto) (0-2) /HPF U Hyaline Cast (Auto) (0-2) /LPF U Epithel Cells (Auto) (FEW) /HPF Urine Bacteria (Auto) (NEGATIVE) /HPF Urine Mucus (Auto) (NEGATIVE) /HPF Urine Culture Reflexed (NO) Urine Glucose (NEGATIVE) mg/dL 12/24/20 Range/Units 14:05 WBC (4.0-10.5) K/mm3 RBC (4.1-5.4) M/mm3 Hgb (12.0-16.0) gm/dl Hct (35-47) % MCV (78-100) fl MCH (26-32) pg MCHC (32-36) g/dl RDW (11.5-14.0) % Plt Count (150-450) K/mm3 MPV (7.5-11.0) fl Gran % (36.0-66.0) % Eos # (Auto) (0-0.5) Absolute Lymphs (auto) (1.0-4.6) Absolute Monos (auto) (0.0-1.3) Lymphocytes % (24.0-44.0) % Monocytes % (0.0-12.0) % Eosinophils % (0.00-5.0) % Basophils % (0.0-0.4) % Absolute Granulocytes (1.4-6.9) Basophils # (0-0.4) Sodium (137-145) mmol/L Potassium (3.5-5.1) mmol/L Chloride (98-107) mmol/L Carbon Dioxide (22-30) mmol/L Anion Gap (5-15) MEQ/L BUN (7-17) mg/dL Creatinine (0.52-1.04) mg/dL Estimated GFR ML/MIN Glucose (74-106) mg/dL Calcium (8.4-10.2) mg/dL Total Bilirubin (0.2-1.3) mg/dL AST (14-36) U/L ALT (0-35) U/L Alkaline Phosphatase (38-126) U/L Troponin I (0.000-0.034) ng/mL NT-Pro-B Natriuret Pep (0-900) pg/mL Serum Total Protein (6.3-8.2) g/dL Albumin (3.5-5.0) g/dL Urine Color [place] (YELLOW) Urine Appearance SLIGHTLY CLOUDY (CLEAR) Urine pH 5.0 (5-6) Ur Specific [place] 1.032 (1.005-1.025) Urine Protein 100 (Negative) Urine Ketones TRACE (NEGATIVE) Urine Blood NEGATIVE (0-5) Aroldo/ul Urine Nitrite NEGATIVE (NEGATIVE) Urine Bilirubin SMALL (NEGATIVE) Urine Urobilinogen NEGATIVE (0-1) mg/dL Ur Leukocyte Esterase SMALL (NEGATIVE) Urine WBC (Auto) 11-15 (0-5) /HPF Urine RBC (Auto) 3-5 (0-2) /HPF U Hyaline Cast (Auto) 11-25 (0-2) /LPF U Epithel Cells (Auto) RARE (FEW) /HPF Urine Bacteria (Auto) NONE (NEGATIVE) /HPF Urine Mucus (Auto) SLIGHT (NEGATIVE) /HPF Urine Culture Reflexed ORDERED SEPARATELY (NO) Urine Glucose NEGATIVE (NEGATIVE) mg/dL - Progress Progress: improved, re-examined Air Movement: good Progress Note: 12/24/20 15:46 Chest x-ray shows no acute cardiopulmonary process. Blood Culture(s) Obtained: No Antibiotics given: Yes Counseled pt/family regarding: lab results, diagnosis, need for follow-up, rad results - Departure Departure Disposition: Home Clinical Impression: Mild dehydration, UTI (urinary tract infection) Condition: Stable Critical Care Time: No Referrals: LLUVIA PERRY, [Primary Care Provider] - Follow up/PCP as directed Additional Instructions: Drink plenty fluids. Take your medication as prescribed. Follow-up with your primary care physician tomorrow to make arrangements for follow-up clinic appointment. Keep your appointment with the infectious disease specialist on 12/31/2020 Prescriptions: Ciprofloxacin [Cipro 500 MG] 500 mg PO BID #14 tablet
[2020-12-24] MEDS ORDERED: Sodium Chloride 0.9% 1000 ML 1,000 ML IV STA (13:43)
[2020-12-24] MEDS ORDERED: Sodium Chloride 0.9% 1000 ML 1,000 ML ONE (14:10)
[2020-12-24 14:23] LABS: Appearance SLIGHTLY CLOUDY (CLEAR); Bilirubin SMALL (NEGATIVE); Blood NEGATIVE Ery/ul (0-5); Epithelial Cells RARE /HPF (FEW); Glucose NEGATIVE (NEGATIVE); Ketones TRACE (NEGATIVE); Leukocyte Esterase SMALL (NEGATIVE); Mucus SLIGHT /HPF (NEGATIVE); Nitrite NEGATIVE (NEGATIVE); Protein,Urine Dip 100 (Negative); Specific Gravity 1.032 (1.005-1.025); Urobilinogen NEGATIVE mg/dL (0-1)
--- NOTE | 2020-12-24 14:26 | XRAY ---
Indication: Cough. Short of breath. Comparison: November 17, 2020. Portable chest again demonstrates minimal right base subsegmental atelectasis/scarring, mediastinal/right hilar calcified nodes, and right Port-A-Cath. Remaining heart and lungs unremarkable. Bony thorax intact.
[2020-12-24 14:46] LABS: Absolute Neutrophil Ct (ANC) 2.88 (1.4-6.9); BASOPHIL % 0.5 % (0.0-0.4); Basophil (Absolute #) 0.02 (0-0.4); Eosinophil % 1.5 % (0.00-5.0); Eosinophil (Absolute #) 0.06 (0-0.5); Hematocrit 29.7 % (35-47); Hemoglobin 9.1 gm/dl (12.0-16.0); Lymphocyte (Absolute #) 0.68 (1.0-4.6); Lymphocytes % 17.1 % (24.0-44.0); Mean Cell Volume 86.1 fl (78-100); Mean Corpuscular Hemoglobin 26.4 pg (26-32); Mean Corpuscular Hgb Concent. 30.6 g/dl (32-36); Mean Platelet Volume 10.4 fl (7.5-11.0); Monocyte (Absolute #) 0.33 (0.0-1.3); Monocytes % 8.3 % (0.0-12.0); Neutrophil % 72.6 % (36.0-66.0); Platelet Count 166 K/mm3 (150-450); Red Blood Count 3.45 M/mm3 (4.1-5.4); Red Cell Distribution Width 15.7 % (11.5-14.0)
[2020-12-24] MEDS ORDERED: ROCEPHIN 1 Gm-D5w 50 ml Bag** 1 G/50 ML IVPB IV STA (15:09)
[2020-12-24] MEDS ORDERED: ROCEPHIN 1 Gm-D5w 50 ml Bag** 1 G/50 ML IVPB IV ONE (15:26)
[2020-12-24 15:40] LABS: ALBUMIN 3.5 g/dL (3.5-5.0); ANION GAP 11.8 MEQ/L (5-15); BILIRUBIN,TOTAL 0.4 mg/dL (0.2-1.3); Calcium 8.8 mg/dL (8.4-10.2); Creatinine 1 1.1 mg/dL (0.52-1.04)
== END 2020-12-24 16:16 | disposition home or self-care (01) ==
LOC: ED 13:10
DX: E86.0 Dehydration (principal); N39.0 Urinary tract infection, site not specified
CPT/HCPCS: 36000; 36415; 71045; 80053; 81001; 83880; 84484; 85025; 87086; 93005; 93041; 94760; 96365; 99285; P9612; J0696; J1642

== ENCOUNTER 2021-01-16 17:49 | Emergency (ER) | payer MEDICARE ==
[2021-01-16] MEDS ORDERED: XYLOCAINE 1% HCL 20 ML MDV IJ ONE (17:50)
[2021-01-16 18:10] VITALS: O2SAT 98
[2021-01-16 18:52] LABS: Appearance CLOUDY (CLEAR); Bilirubin NEGATIVE (NEGATIVE); Blood NEGATIVE Ery/ul (0-5); Calcium Oxalate Crystals >100 /HPF (NEGATIVE); Epithelial Cells RARE /HPF (FEW); Glucose NEGATIVE (NEGATIVE); Ketones NEGATIVE (NEGATIVE); Leukocyte Esterase SMALL (NEGATIVE); Mucus SLIGHT /HPF (NEGATIVE); Nitrite POSITIVE (NEGATIVE); Protein,Urine Dip 30 (Negative); Specific Gravity 1.036 (1.005-1.025); Urobilinogen 4 mg/dL (0-1); WBC 51-100 /HPF (0-5)
[2021-01-16] MEDS ORDERED: Rocephin 1000 MG INJ IM ONE (18:55)
[2021-01-16] MEDS ORDERED: Rocephin 1000 MG INJ ONE (18:57)
--- NOTE | 2021-01-16 19:02 | ERPHSYRPT ---
- History of Present Illness Time Seen by Provider: 01/16/21 18:10 Source: patient Exam Limitations: no limitations Patient Subjective Stated Complaint: Pt states "I have a urinary infection." Triage Nursing Assessment: Pt presented alert and orientedX 3, skin pwd. Pt ambulates with an hunched over gait, able to speak in clear full sentences. Pt moaning and grunting. Pt nauseated Physician History: Patient is a 65-year-old female presents to emergency department for evaluation of dysuria. Patient has a history of urinary tract infection and feels that her urinary tract infection has returned. Pain worse upon urination. Some mild suprapubic tenderness. No fever. No nausea or vomiting. No back pain. Symptoms are mild to moderate in intensity. No specific worsening or improving factors. Patient declined pain medication. She voices no other complaints or concerns at this time. Timing/Duration: today Severity: moderate Modifying Factors: Improves With: nothing Associated Symptoms: denies symptoms Allergies/Adverse Reactions: sumatriptan [From Imitrex] Allergy (Intermediate, Verified 11/21/20 13:27) Rash codeine Allergy (Mild, Verified 11/21/20 13:27) Rash MAKES SICK nitrofurantoin [From Macrobid] Allergy (Unknown, Verified 11/21/20 13:27) sumatriptan succinate [From Imitrex] Allergy (Verified 11/21/20 13:27) morphine Adverse Reaction (Severe, Verified 11/21/20 13:27) Headache MIGRAINES fentanyl Adverse Reaction (Intermediate, Verified 11/21/20 13:27) Headache hydrocodone bitartrate [From Vicodin] Adverse Reaction (Mild, Verified 11/21/20 13:27) Vomiting hydromorphone [From Dilaudid] Adverse Reaction (Mild, Verified 11/21/20 13:27) pt states makes heache worse. Home Medications: ALPRAZolam 1 MG [Xanax 1 mg] 1 mg PO TID 02/17/13 [History] Polyethylene Glycol 3350 17 gm [Miralax Powder 17GM PACKET] 34 gm PO BID 11/15/14 [History] Sennosides/Docusate Sodium [Senokot-S Tablet] 1 tab PO DAILY 04/25/15 [History] Promethazine HCl 25 mg [Phenergan 25 mg] 25 mg PO Q4HPRN PRN 05/11/15 [History] Cetirizine HCl/Pseudoephedrine [Zyrtec-D Tablet] 1 each PO DAILY 02/03/16 [History] Aspirin 81 mg PO DAILY 09/11/16 [History] Levothyroxine Sodium 50 Mcg [Synthroid 50 Mcg] 50 mcg PO DAILY 07/06/17 [History] Linaclotide [Linzess] 290 mcg PO DAILY 10/07/17 [History] Rizatriptan Benzoate [Maxalt] 10 mg PO BID PRN PRN 06/23/18 [History] Fluticasone Propionate [Flonase NASAL] 2 spray NS DAILY 01/19/19 [History] Guaifenesin 600 mg ER [Mucinex 600MG ER Tabs] 600 mg PO DAILY 04/05/19 [History] Dexlansoprazole [Dexilant] 60 mg PO DAILY 01/21/20 [History] Prucalopride Succinate [Motegrity] 2 mg PO DAILY 01/21/20 [History] Fluticasone/Umeclidin/Vilanter [Trelegy Ellipta 100-62.5-25] 200 units IH DAILY 03/01/20 [History] Albuterol 2.5 mg/3 ml Neb [Proventil 2.5 mg/3 ml Neb] 2.5 mg IH QID 07/23/20 [History] Hx Tetanus, Diphtheria Vaccination/Date Given: Yes Hx Influenza Vaccination/Date Given: Yes Hx Pneumococcal Vaccination/Date Given: Yes Immunizations Up to Date: Yes Travel Risk - International Travel Have you traveled outside of the country in past 3 weeks: No - Coronavirus Screening Are you exhibiting any of the following symptoms?: No Close contact with a COVID-19 positive Pt in past 14-21 Days: No - Vaccine Status Have you recieved a 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: 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[employer] - Vaccination Dates Date of 2cond Vaccination (if applicable): 11/2020 - Review of Systems Constitutional: No Symptoms, No Fever, No Chills Eyes: No Symptoms Ears, Nose, & Throat: No Symptoms Respiratory: No Symptoms, No Cough, No Dyspnea Cardiac: No Symptoms, No Chest Pain, No Edema, No Syncope Abdominal/Gastrointestinal: No Symptoms, No Abdominal Pain, No Nausea, No Vomiting, No Diarrhea Genitourinary Symptoms: No Symptoms, No Dysuria Musculoskeletal: No Symptoms, No Back Pain, No Neck Pain Skin: No Symptoms, No Rash Neurological: No Symptoms, No Dizziness, No Focal Weakness, No Sensory Changes Psychological: No Symptoms Endocrine: No Symptoms Hematologic/Lymphatic: No Symptoms Immunological/Allergic: No Symptoms All Other Systems: Reviewed and Negative - Past Medical History Pertinent Past Medical History: Yes Neurological History: Migraines ENT History: Cataracts Cardiac History: No Pertinent History Respiratory History: Bronchitis, COPD, Pulmonary Embolism Endocrine Medical History: Hypothyroidism Musculoskeletal History: Osteoarthritis GI Medical History: GERD, Other History: Other Psycho-Social History: Anxiety, Panic Disorder Female Reproductive Disorders: No Pertinent History Other Medical History: frequent uti's, chronic pseudo obstruction, blood clot - Past Surgical History Past Surgical History: Yes Neuro Surgical History: No Pertinent History Cardiac: No Pertinent History Respiratory: No Pertinent History Gastrointestinal: Cholecystectomy, Other Genitourinary: No Pertinent History Musculoskeletal: No Pertinent History Female Surgical History: No Pertinent History Other Surgical History: all of large intestine removed - Social History Smoking Status: Never smoker Exposure to second hand smoke: No Alcohol Use: None Drug Use: none Patient Lives Alone: No Significant Family History: no pertinent family hx - Female History Hx Now: No - Nursing Vital Signs Nursing Vital Signs: Initial Vital Signs Temperature 97.4 F 01/16/21 18:06 Pulse Rate 113 H 01/16/21 18:06 Respiratory Rate 22 01/16/21 18:06 Blood Pressure 125/86 01/16/21 18:06 O2 Sat by Pulse Oximetry 98 01/16/21 18:06 Pain Scale Pain Intensity 8 - Physical Exam General Appearance: no apparent distress, alert Eye Exam: PERRL/EOMI, eyes nml inspection Ears, Nose, Throat Exam: normal ENT inspection, TMs normal, pharynx normal, moist mucous membranes Neck Exam: normal inspection, non-tender, supple, full range of motion Respiratory Exam: normal breath sounds, lungs clear, No respiratory distress Cardiovascular Exam: regular rate/rhythm, normal heart sounds, normal peripheral pulses Gastrointestinal/Abdomen Exam: soft, normal bowel sounds, No tenderness, No mass Back Exam: normal inspection, normal range of motion, No CVA tenderness, No vertebral tenderness Extremity Exam: normal inspection, normal range of motion, pelvis stable Neurologic Exam: alert, 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, cooperative, normal mood/affect, nml cerebellar function, nml station & gait, sensation nml, No motor deficits Skin Exam: normal color, warm, dry, No rash Lymphatic Exam: No adenopathy SpO2 Interpretation: normal SpO2: 98 O2 Delivery: Room Air - Course Nursing assessment & vital signs reviewed: Yes Ordered Tests: Active Orders 24 hr Category Date Time Status CULTURE,URINE Stat Lab 01/16/21 18:29 Received UA W/RFX UR CULTURE Stat Lab 01/16/21 18:29 Completed Medication Summary Discontinued Medications Generic Name Dose Route Start Last Admin Trade Name Freq PRN Reason Stop Dose Admin Ceftriaxone Sodium 1,000 mg 01/16/21 18:55 Ceftriaxone Sodium 1000 Mg Inj Vial IM 01/16/21 18:56 STAT ONE Lab/Rad Data: Laboratory Results 01/16/21 Range/Units 18:29 Urine Color [place] (YELLOW) Urine Appearance CLOUDY (CLEAR) Urine pH 5.0 (5-6) Ur Specific [place] 1.036 (1.005-1.025) Urine Protein 30 (Negative) Urine Ketones NEGATIVE (NEGATIVE) Urine Blood NEGATIVE (0-5) Aroldo/ul Urine Nitrite POSITIVE (NEGATIVE) Urine Bilirubin NEGATIVE (NEGATIVE) Urine Urobilinogen 4 (0-1) mg/dL Ur Leukocyte Esterase SMALL (NEGATIVE) Urine WBC (Auto) 51-100 (0-5) /HPF Urine RBC (Auto) 6-10 (0-2) /HPF U Hyaline Cast (Auto) 6-10 (0-2) /LPF U Epithel Cells (Auto) RARE (FEW) /HPF Urine Bacteria (Auto) NONE (NEGATIVE) /HPF Calcium Oxalate Crystal >100 (NEGATIVE) /HPF Urine Mucus (Auto) SLIGHT (NEGATIVE) /HPF Urine Culture Reflexed YES (NO) Urine Glucose NEGATIVE (NEGATIVE) mg/dL - Progress Progress: improved Progress Note: UA significant for urinary tract infection. Patient received a dose of Rocephin in our ED. A prescription for Keflex for the patient's pharmacy. Patient agrees to follow-up with her primary care doctor within 48 hours for reevaluation. She voices no other complaints or concerns at this time. Portions of this note were created with voice recognition technology. There may be grammatical, spelling, punctuation or sound alike errors 01/16/21 19:02 Counseled pt/family regarding: lab results, diagnosis, need for follow-up - Departure Departure Disposition: Home Clinical Impression: UTI (urinary tract infection), Cystitis Condition: Stable Critical Care Time: No Referrals: LLUVIA CHILDERS, [Primary Care Provider] - Follow up/PCP as directed Additional Instructions: Discharge/Care Plan GEOVANNY FREY was seen on 01/16/21 in the Emergency Room. The patient was counseled regarding Diagnosis,Lab results, Imaging studies, need for follow up and when to return to the Emergency Room. Prescriptions given: Discharge Note I have spoken with the patient and/or caregivers. I have explained the patient's condition, diagnosis and treatment plan based on the information available to me at this time. I have answered the patient's and/or caregiver's questions and addressed any concerns. The patient and/or caregivers have as good understanding of the patient's diagnosis, condition and treatment plan as can be expected at this point. The vital signs have been stable. The patient's condition is stable and appropriate for discharge from the emergency department. The patient will pursue further outpatient evaluation with the primary care physician or other designated or consulting physician as outlined in the discharge instructions. The patient and/or caregivers are agreeable to this plan of care and follow-up instructions have been explained in detail. The patient and/or caregivers have received these instruction. The patient/and or caregivers are aware that any significant change in condition or worsening of symptoms should prompt an immediate return to this or the closest emergency department or call 911.
[2021-01-16 19:07] VITALS: BP 102/66; PULSE 100
== END 2021-01-16 19:10 | disposition home or self-care (01) ==
LOC: ED 17:49
DX: N39.0 Urinary tract infection, site not specified (principal); N30.90 Cystitis, unspecified without hematuria
CPT/HCPCS: 81001; 87086; 96372; 99284; J0696

== ENCOUNTER 2021-03-02 00:04 | Emergency (ER) | payer MEDICARE ==
[2021-03-02] MEDS ORDERED: XYLOCAINE 1% HCL 20 ML MDV IJ ONE (00:05)
--- NOTE | 2021-03-02 00:33 | ERPHSYRPT ---
- History of Present Illness Time Seen by Provider: 03/02/21 00:06 Source: patient Exam Limitations: no limitations Physician History: 65-year-old female with multiple medical problems including multiple UTIs, presented in the ER with increased frequency, sense of incomplete voiding, dribbling and burning urination for 1 week with progressive worsening. Denies hematuria. No flank pain. No fever or chills reported. Has chronic abdominal pain which is not any worse than usual. Timing/Duration: week(s) (1), gradual onset, worse Activites at Onset: rest Quality: burning Onset Location: suprapubic, urethral Pain Radiation: suprapubic Severity of Pain-Max: moderate Severity of Pain-Current: mild Prior abdominal problems: UTI Modifying Factors: Worsens With: urinating Associated Symptoms: dysuria, urinary frequency, No fever Allergies/Adverse Reactions: sumatriptan [From Imitrex] Allergy (Intermediate, Verified 03/02/21 00:15) Rash codeine Allergy (Mild, Verified 03/02/21 00:15) Rash MAKES SICK nitrofurantoin [From Macrobid] Allergy (Unknown, Verified 03/02/21 00:15) sumatriptan succinate [From Imitrex] Allergy (Verified 03/02/21 00:15) morphine Adverse Reaction (Severe, Verified 03/02/21 00:15) Headache MIGRAINES fentanyl Adverse Reaction (Intermediate, Verified 03/02/21 00:15) Headache hydrocodone bitartrate [From Vicodin] Adverse Reaction (Mild, Verified 03/02/21 00:15) Vomiting hydromorphone [From Dilaudid] Adverse Reaction (Mild, Verified 03/02/21 00:15) pt states makes heache worse. Home Medications: ALPRAZolam 1 MG [Xanax 1 mg] 1 mg PO TID 02/17/13 [History] Polyethylene Glycol 3350 17 gm [Miralax Powder 17GM PACKET] 34 gm PO BID 11/15/14 [History] Sennosides/Docusate Sodium [Senokot-S Tablet] 1 tab PO DAILY 04/25/15 [History] Promethazine HCl 25 mg [Phenergan 25 mg] 25 mg PO Q4HPRN PRN 05/11/15 [History] Cetirizine HCl/Pseudoephedrine [Zyrtec-D Tablet] 1 each PO DAILY 02/03/16 [History] Aspirin 81 mg PO DAILY 09/11/16 [History] Levothyroxine Sodium 50 Mcg [Synthroid 50 Mcg] 50 mcg PO DAILY 07/06/17 [History] Linaclotide [Linzess] 290 mcg PO DAILY 10/07/17 [History] Rizatriptan Benzoate [Maxalt] 10 mg PO BID PRN PRN 06/23/18 [History] Fluticasone Propionate [Flonase NASAL] 2 spray NS DAILY 01/19/19 [History] Guaifenesin 600 mg ER [Mucinex 600MG ER Tabs] 600 mg PO DAILY 04/05/19 [History] Dexlansoprazole [Dexilant] 60 mg PO DAILY 01/21/20 [History] Prucalopride Succinate [Motegrity] 2 mg PO DAILY 01/21/20 [History] Fluticasone/Umeclidin/Vilanter [Trelegy Ellipta 100-62.5-25] 200 units IH DAILY 03/01/20 [History] Albuterol 2.5 mg/3 ml Neb [Proventil 2.5 mg/3 ml Neb] 2.5 mg IH QID 07/23/20 [History] Hx Tetanus, Diphtheria Vaccination/Date Given: Yes Hx Influenza Vaccination/Date Given: Yes Hx Pneumococcal Vaccination/Date Given: Yes Travel Risk - Vaccine Status Have you recieved a 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: Yes 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: [place] - Vaccination Dates Date of 2cond Vaccination (if applicable): 11/2020 - Review of Systems Constitutional: No Symptoms Eyes: No Symptoms Ears, Nose, & Throat: No Symptoms Respiratory: Cough, Dyspnea, Wheezing Abdominal/Gastrointestinal: Abdominal Pain Genitourinary Symptoms: Dysuria, Frequency Musculoskeletal: No Symptoms Neurological: No Symptoms Psychological: Anxiety Endocrine: No Symptoms - Past Medical History Pertinent Past Medical History: Yes Neurological History: Migraines ENT History: Cataracts Cardiac History: No Pertinent History Respiratory History: Bronchitis, COPD, Pulmonary Embolism Endocrine Medical History: Hypothyroidism Musculoskeletal History: Osteoarthritis GI Medical History: GERD, Other History: Other Psycho-Social History: Anxiety, Panic Disorder Female Reproductive Disorders: No Pertinent History Other Medical History: frequent uti's, chronic pseudo obstruction, blood clot - Past Surgical History Past Surgical History: Yes Neuro Surgical History: No Pertinent History Cardiac: No Pertinent History Respiratory: No Pertinent History Gastrointestinal: Cholecystectomy, Other Genitourinary: No Pertinent History Musculoskeletal: No Pertinent History Female Surgical History: No Pertinent History Other Surgical History: all of large intestine removed - Social History Smoking Status: Never smoker Exposure to second hand smoke: No Alcohol Use: None Drug Use: none Patient Lives Alone: No Significant Family History: no pertinent family hx - Nursing Vital Signs Nursing Vital Signs: Initial Vital Signs Temperature 97.5 F 03/02/21 00:15 Pulse Rate 124 H 03/02/21 00:15 Respiratory Rate 22 03/02/21 00:15 Blood Pressure 95/56 03/02/21 00:15 O2 Sat by Pulse Oximetry 98 03/02/21 00:15 Pain Scale Pain Intensity 7 - Physical Exam General Appearance: no apparent distress, alert Eye Exam: PERRL/EOMI Ears, Nose, Throat Exam: normal ENT inspection, pharynx normal Neck Exam: normal inspection, supple, full range of motion Respiratory Exam: normal breath sounds, wheezing Cardiovascular Exam: regular rate/rhythm, normal heart sounds Gastrointestinal/Abdomen Exam: soft, normal bowel sounds, No tenderness Back Exam: normal inspection, No CVA tenderness Neurologic Exam: alert, 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, cooperative Skin Exam: normal color, warm SpO2 Interpretation: normal, O2 applied SpO2: 94 O2 Delivery: Nasal Cannula Ordered Tests: Active Orders 24 hr Category Date Time Status CULTURE,URINE Stat Lab 03/02/21 00:11 Received UA W/RFX UR CULTURE Stat Lab 03/02/21 00:11 Completed Medication Summary Discontinued Medications Generic Name Dose Route Start Last Admin Trade Name Freq PRN Reason Stop Dose Admin Ceftriaxone Sodium 1,000 mg 03/02/21 01:06 Ceftriaxone Sodium 1000 Mg Inj Vial IM 03/02/21 01:07 STAT ONE Lab/Rad Data: Laboratory Results 03/02/21 Range/Units 00:11 Urine Color RED (YELLOW) Urine Appearance TURBID (CLEAR) Urine pH 5.0 (5-6) Ur Specific [place] 1.030 (1.005-1.025) Urine Protein 30 (Negative) Urine Ketones NEGATIVE (NEGATIVE) Urine Blood NEGATIVE (0-5) Aroldo/ul Urine Nitrite POSITIVE (NEGATIVE) Urine Bilirubin NEGATIVE (NEGATIVE) Urine Urobilinogen 2 (0-1) mg/dL Ur Leukocyte Esterase TRACE (NEGATIVE) Urine WBC (Auto) 6-10 (0-5) /HPF Urine RBC (Auto) NONE (0-2) /HPF U Epithel Cells (Auto) RARE (FEW) /HPF Urine Bacteria (Auto) PACKED (NEGATIVE) /HPF Urine Mucus (Auto) SLIGHT (NEGATIVE) /HPF Urine Culture Reflexed YES (NO) Urine Glucose NEGATIVE (NEGATIVE) mg/dL - Progress Progress: unchanged Air Movement: good Progress Note: 03/02/21 01:11 I believe patient has cystitis, given Rocephin and started on cefpodoxime. Outpatient follow-up. Discussed signs symptoms of worsening needing return to ER which she seems understanding. Blood Culture(s) Obtained: No Antibiotics given: Yes Counseled pt/family regarding: lab results, diagnosis, need for follow-up - Departure Departure Disposition: Home Clinical Impression: Urinary tract infection Qualifiers: Urinary tract infection type: acute cystitis Hematuria presence: without hematuria Qualified Code(s): N30.00 - Acute cystitis without hematuria Condition: Stable Critical Care Time: No Referrals: LLUVIA CHILDERS DO [Primary Care Provider] - Follow Up with PCP/3 days Instructions: Urinary Tract Infection, Adult (DC) Additional Instructions: Use Tylenol as needed for pain. Drink plenty of fluids. Follow-up with primary care for reevaluation. Return to ER for worsening symptoms of UTI or if develop fever chills/flank pain etc. Prescriptions: Cefpodoxime Proxetil 200 mg [Vantin 200 mg] 200 mg PO BID #14 tablet
[2021-03-02 00:35] VITALS: O2SAT 94
[2021-03-02 01:05] LABS: Appearance TURBID (CLEAR); Bacteria PACKED /HPF (NEGATIVE); Bilirubin NEGATIVE (NEGATIVE); Blood NEGATIVE Ery/ul (0-5); Epithelial Cells RARE /HPF (FEW); Glucose NEGATIVE (NEGATIVE); Ketones NEGATIVE (NEGATIVE); Leukocyte Esterase TRACE (NEGATIVE); Mucus SLIGHT /HPF (NEGATIVE); Nitrite POSITIVE (NEGATIVE); Protein,Urine Dip 30 (Negative); Urobilinogen 2 mg/dL (0-1)
[2021-03-02] MEDS ORDERED: Rocephin 1000 MG INJ IM ONE (01:06)
[2021-03-02 01:07] VITALS: BP 105/74; PULSE 97
[2021-03-02] MEDS ORDERED: Rocephin 1000 MG INJ ONE (01:14)
== END 2021-03-02 01:33 | disposition home or self-care (01) ==
LOC: ED 00:04
DX: N30.00 Acute cystitis without hematuria (principal); R30.0 Dysuria; R35.0 Frequency of micturition; J44.9 Chronic obstructive pulmonary disease, unspecified; K21.9 Gastro-esophageal reflux disease without esophagitis
CPT/HCPCS: 81001; 87077; 87086; 87186; 96372; 99284; J0696

== ENCOUNTER 2021-03-06 13:15 | Emergency (ER) | payer MEDICARE ==
--- NOTE | 2021-03-06 13:22 | ERPHSYRPT ---
- History of Present Illness Time Seen by Provider: 03/06/21 13:22 Historian: patient, EMS Exam Limitations: no limitations Physician History: This is a 65-year-old white female patient of Dr. Perry who presents via EMS with few day history of abdominal pain, dull distention and nausea and vomiting. She vomited all night last night she stated. She was here on 12/31/2021 and diagnosed with a urinary tract infection and is currently taking Vantin antibiotic for this. Patient has a history of chronic pseudoobstruction and is on Motegrity which is a bowel prokinetic agent. She is also on Senokot medication. Patient has a history of migraine headaches, bronchitis, COPD, hypothyroidism, gastroesophageal reflux disease, anxiety, panic disorder and depression. Activities at Onset: none Quality: cramping Abdominal Pain Onset Location: generalized abdomen Pain Radiation: no radiation Severity of Pain-Max: moderate Severity of Pain-Current: moderate Modifying Factors: Improves With: vomiting Associated Symptoms: nausea, vomiting, No chest pain, No shortness of breath Previous symptoms: same symptoms as today, recently seen Allergies/Adverse Reactions: sumatriptan [From Imitrex] Allergy (Intermediate, Verified 03/06/21 13:29) Rash codeine Allergy (Mild, Verified 03/06/21 13:29) Rash MAKES SICK nitrofurantoin [From Macrobid] Allergy (Unknown, Verified 03/06/21 13:29) sumatriptan succinate [From Imitrex] Allergy (Verified 03/06/21 13:29) morphine Adverse Reaction (Severe, Verified 03/06/21 13:29) Headache MIGRAINES fentanyl Adverse Reaction (Intermediate, Verified 03/06/21 13:29) Headache hydrocodone bitartrate [From Vicodin] Adverse Reaction (Mild, Verified 03/06/21 13:29) Vomiting hydromorphone [From Dilaudid] Adverse Reaction (Mild, Verified 03/06/21 13:29) pt states makes heache worse. Home Medications: ALPRAZolam 1 MG [Xanax 1 mg] 1 mg PO TID 02/17/13 [History] Polyethylene Glycol 3350 17 gm [Miralax Powder 17GM PACKET] 34 gm PO BID 11/15/14 [History] Sennosides/Docusate Sodium [Senokot-S Tablet] 1 tab PO DAILY 04/25/15 [History] Promethazine HCl 25 mg [Phenergan 25 mg] 25 mg PO Q4HPRN PRN 05/11/15 [History] Cetirizine HCl/Pseudoephedrine [Zyrtec-D Tablet] 1 each PO DAILY 02/03/16 [History] Aspirin 81 mg PO DAILY 09/11/16 [History] Levothyroxine Sodium 50 Mcg [Synthroid 50 Mcg] 50 mcg PO DAILY 07/06/17 [History] Linaclotide [Linzess] 290 mcg PO DAILY 10/07/17 [History] Rizatriptan Benzoate [Maxalt] 10 mg PO BID PRN PRN 06/23/18 [History] Fluticasone Propionate [Flonase NASAL] 2 spray NS DAILY 01/19/19 [History] Guaifenesin 600 mg ER [Mucinex 600MG ER Tabs] 600 mg PO DAILY 04/05/19 [History] Dexlansoprazole [Dexilant] 60 mg PO DAILY 01/21/20 [History] Prucalopride Succinate [Motegrity] 2 mg PO DAILY 01/21/20 [History] Fluticasone/Umeclidin/Vilanter [Trelegy Ellipta 100-62.5-25] 200 units IH DAILY 03/01/20 [History] Albuterol 2.5 mg/3 ml Neb [Proventil 2.5 mg/3 ml Neb] 2.5 mg IH QID 10/05 [History] Hx Tetanus, Diphtheria Vaccination/Date Given: Yes Hx Influenza Vaccination/Date Given: Yes Hx Pneumococcal Vaccination/Date Given: Yes Travel Risk - International Travel Have you traveled outside of the country in past 3 weeks: No - Coronavirus Screening Are you exhibiting any of the following symptoms?: No Close contact with a COVID-19 positive Pt in past 14-21 Days: No - Vaccine Status Have you recieved a 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: Yes 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: [place] - Vaccination Dates Date of 2cond Vaccination (if applicable): 11/2020 - Review of Systems Constitutional: No Symptoms Eyes: No Symptoms Ears, Nose, & Throat: No Symptoms Respiratory: No Symptoms Cardiac: No Symptoms Abdominal/Gastrointestinal: Abdominal Pain, Nausea, Vomiting Genitourinary Symptoms: No Symptoms Musculoskeletal: No Symptoms Skin: No Symptoms Neurological: No Symptoms Psychological: No Symptoms Endocrine: No Symptoms Hematologic/Lymphatic: No Symptoms Immunological/Allergic: No Symptoms All Other Systems: Reviewed and Negative - Past Medical History Pertinent Past Medical History: Yes Neurological History: Migraines ENT History: Cataracts Cardiac History: No Pertinent History Respiratory History: Bronchitis, COPD, Pulmonary Embolism Endocrine Medical History: Hypothyroidism Musculoskeletal History: Osteoarthritis GI Medical History: GERD, Other History: Other Psycho-Social History: Anxiety, Panic Disorder Female Reproductive Disorders: No Pertinent History Other Medical History: frequent uti's, chronic pseudo obstruction, blood clot - Past Surgical History Past Surgical History: Yes Neuro Surgical History: No Pertinent History Cardiac: No Pertinent History Respiratory: No Pertinent History Gastrointestinal: Cholecystectomy, Other Genitourinary: No Pertinent History Musculoskeletal: No Pertinent History Female Surgical History: No Pertinent History Other Surgical History: all of large intestine removed - Social History Smoking Status: Never smoker Exposure to second hand smoke: No Alcohol Use: None Drug Use: none Patient Lives Alone: No Significant Family History: no pertinent family hx - Nursing Vital Signs Nursing Vital Signs: Initial Vital Signs Temperature 97.8 F 03/06/21 13:20 Pulse Rate 103 H 03/06/21 13:20 Respiratory Rate 20 03/06/21 13:20 Blood Pressure 90/73 03/06/21 13:20 O2 Sat by Pulse Oximetry 96 03/06/21 13:20 Pain Scale Pain Intensity 10 - Physical Exam General Appearance: no apparent distress, alert, anxiety, obese Eye Exam: PERRL/EOMI, eyes nml inspection Ears, Nose, Throat Exam: normal ENT inspection, moist mucous membranes Neck Exam: normal inspection, non-tender, supple, full range of motion Respiratory Exam: normal breath sounds, chest tenderness, lungs clear, respiratory distress Cardiovascular Exam: regular rate/rhythm, normal heart sounds, normal peripheral pulses Gastrointestinal/Abdomen Exam: soft, tenderness, distention (Possibly mild generalized), guarding (To deep palpation), No rebound Pelvic Exam: not done Rectal Exam: not done Back Exam: normal inspection, normal range of motion, CVA tenderness, vertebral tenderness Extremity Exam: normal inspection, normal range of motion, pelvis stable Neurologic Exam: alert, 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, cooperative, haircutter II-XII nml as tested Skin Exam: normal color, warm, dry Lymphatic Exam: No adenopathy SpO2 Interpretation: normal O2 Delivery: Room Air Ordered Tests: Active Orders 24 hr Category Date Time Status IV Insertion STAT Care 03/06/21 13:29 Active ABDOMEN AND PELVIS W/0 CONTRAS [CT] Stat Exams 03/06/21 13:30 Completed AMYLASE Stat Lab 03/06/21 13:45 Received CBC W DIFF Stat Lab 03/06/21 13:45 Completed CMP Stat Lab 03/06/21 13:45 Received CULTURE,URINE Stat Lab 03/06/21 13:53 Received LIPASE Stat Lab 03/06/21 13:45 Received Lactic Acid Stat Lab 03/06/21 13:50 Completed UA W/RFX UR CULTURE Stat Lab 03/06/21 13:53 Completed Medication Summary Generic Name Dose Route Start Last Admin Trade Name Freq PRN Reason Stop Dose Admin Ceftriaxone Sodium/Dextrose 1 g in 50 mls @ 100 mls/hr 03/06/21 14:39 Rocephin 1 Gm-D5w 50 Ml Bag IV 03/06/21 15:08 STAT STA Discontinued Medications Generic Name Dose Route Start Last Admin Trade Name Freq PRN Reason Stop Dose Admin Sodium Chloride 1,000 mls @ 999 mls/hr 03/06/21 13:29 03/06/21 13:38 Sodium Chloride 0.9% 1000 Ml IV 03/06/21 14:29 999 mls/hr .Q1H1M STA Administration Sodium Chloride Confirm 03/06/21 13:36 Sodium Chloride 0.9% 1000 Ml Administered 03/06/21 13:37 Dose 1,000 mls @ ud .ROUTE .STK-MED ONE Ondansetron HCl 4 mg 03/06/21 13:29 03/06/21 13:39 Ondansetron Hcl 4 Mg/2 Ml Vial IV 03/06/21 13:30 4 mg STAT ONE Administration Ondansetron HCl Confirm 03/06/21 13:35 Ondansetron Hcl 4 Mg/2 Ml Vial Administered 03/06/21 13:36 Dose 4 mg .ROUTE .STK-MED ONE Pantoprazole Sodium 40 mg 03/06/21 13:29 03/06/21 13:39 Pantoprazole 40 Mg Vial IV 03/06/21 13:30 40 mg STAT ONE Administration Pantoprazole Sodium Confirm 03/06/21 13:35 Pantoprazole 40 Mg Vial Administered 03/06/21 13:36 Dose 40 mg IV .STK-MED ONE Lab/Rad Data: Laboratory Result Diagrams 03/06/21 13:45 Laboratory Results 03/06/21 03/06/21 03/06/21 Range/Units 13:53 13:50 13:45 WBC 4.0 (4.0-10.5) K/mm3 RBC 4.09 L (4.1-5.4) M/mm3 Hgb 10.9 L (12.0-16.0) gm/dl Hct 34.7 L (35-47) % MCV 84.8 (78-100) fl MCH 26.7 (26-32) pg MCHC 31.4 L (32-36) g/dl RDW 14.8 H (11.5-14.0) % Plt Count 189 (150-450) K/mm3 MPV 10.9 (7.5-11.0) fl Gran % 70.6 H (36.0-66.0) % Eos # (Auto) 0.05 (0-0.5) Absolute Lymphs (auto) 0.84 L (1.0-4.6) Absolute Monos (auto) 0.28 (0.0-1.3) Lymphocytes % 20.8 L (24.0-44.0) % Monocytes % 6.9 (0.0-12.0) % Eosinophils % 1.2 (0.00-5.0) % Basophils % 0.5 (0.0-0.4) % Absolute Granulocytes 2.85 (1.4-6.9) Basophils # 0.02 (0-0.4) Lactic Acid 1.0 (0.4-2.0) Urine Color [place] (YELLOW) Urine Appearance SLIGHTLY CLOUDY (CLEAR) Urine pH 5.0 (5-6) Ur Specific [place] 1.030 (1.005-1.025) Urine Protein 100 (Negative) Urine Ketones NEGATIVE (NEGATIVE) Urine Blood NEGATIVE (0-5) Aroldo/ul Urine Nitrite POSITIVE (NEGATIVE) Urine Bilirubin NEGATIVE (NEGATIVE) Urine Urobilinogen 4 (0-1) mg/dL Ur Leukocyte Esterase SMALL (NEGATIVE) Urine WBC (Auto) 26-50 (0-5) /HPF Urine RBC (Auto) 11-15 (0-2) /HPF U Epithel Cells (Auto) MODERATE (FEW) /HPF Urine Bacteria (Auto) FEW (NEGATIVE) /HPF Urine Mucus (Auto) SLIGHT (NEGATIVE) /HPF Urine Culture Reflexed YES (NO) Urine Glucose NEGATIVE (NEGATIVE) mg/dL - Progress Progress: improved, pain not gone completely, re-examined Progress Note: 03/06/21 14:30 Noncontrast CAT scan of the abdomen and pelvis shows no acute intra-abdominal or intrapelvic findings. 03/06/21 14:41 In talking with the patient, it appears as though she only took a few doses of her Vantin antibiotics. She did not complete her therapy and actually has not taken her antibiotics in the last couple days. Not surprisingly she has a persistent urinary tract infection and likely this is causing an ileus. Counseled pt/family regarding: lab results, diagnosis, need for follow-up, rad results - Departure Departure Disposition: Home Clinical Impression: UTI (urinary tract infection), Ileus due to infection Condition: Stable Critical Care Time: No Referrals: LLUVIA PERRY, [Primary Care Provider] - Follow up/PCP as directed Additional Instructions: Take your antibiotics and complete the therapy. Call your primary care doctor tomorrow to make arrangements for follow-up appointment. Drink plenty of fluids. Take your other medications as prescribed. Prescriptions: Ondansetron ODT 4 MG [Zofran Odt 4 mg] 4 mg PO Q6H PRN PRN #10 tablet PRN Reason: Vomiting Ciprofloxacin [Cipro 500 MG] 500 mg PO BID #14 tablet
[2021-03-06 13:29] VITALS: O2SAT 96
[2021-03-06] MEDS ORDERED: Zofran 4 MG/2 ML VIAL IV ONE (13:29)
[2021-03-06] MEDS ORDERED: Sodium Chloride 0.9% 1000 ML 1,000 ML IV STA (13:29)
[2021-03-06] MEDS ORDERED: PROTONIX 40 MG IV IV ONE ×2 (13:29→13:35)
[2021-03-06] MEDS ORDERED: Zofran 4 MG/2 ML VIAL ONE (13:35)
[2021-03-06] MEDS ORDERED: Sodium Chloride 0.9% 1000 ML 1,000 ML ONE (13:36)
[2021-03-06 14:03] LABS: Absolute Neutrophil Ct (ANC) 2.85 (1.4-6.9); Basophil (Absolute #) 0.02 (0-0.4); Eosinophil % 1.2 % (0.00-5.0); Eosinophil (Absolute #) 0.05 (0-0.5); Hematocrit 34.7 % (35-47); Hemoglobin 10.9 gm/dl (12.0-16.0); Lymphocyte (Absolute #) 0.84 (1.0-4.6); Lymphocytes % 20.8 % (24.0-44.0); Mean Cell Volume 84.8 fl (78-100); Mean Corpuscular Hemoglobin 26.7 pg (26-32); Mean Corpuscular Hgb Concent. 31.4 g/dl (32-36); Mean Platelet Volume 10.9 fl (7.5-11.0); Monocyte (Absolute #) 0.28 (0.0-1.3); Monocytes % 6.9 % (0.0-12.0); Neutrophil % 70.6 % (36.0-66.0); Platelet Count 189 K/mm3 (150-450); Red Blood Count 4.09 M/mm3 (4.1-5.4); Red Cell Distribution Width 14.8 % (11.5-14.0)
[2021-03-06 14:15] LABS: Appearance SLIGHTLY CLOUDY (CLEAR); Bacteria FEW /HPF (NEGATIVE); Bilirubin NEGATIVE (NEGATIVE); Blood NEGATIVE Ery/ul (0-5); Epithelial Cells MODERATE /HPF (FEW); Glucose NEGATIVE (NEGATIVE); Ketones NEGATIVE (NEGATIVE); Leukocyte Esterase SMALL (NEGATIVE); Mucus SLIGHT /HPF (NEGATIVE); Nitrite POSITIVE (NEGATIVE); Protein,Urine Dip 100 (Negative); Urobilinogen 4 mg/dL (0-1); WBC 26-50 /HPF (0-5)
--- NOTE | 2021-03-06 14:26 | XRAY ---
Indication: Abdomen distention and vomiting. Obstruction. Multiple contiguous axial images obtained through the abdomen and pelvis without contrast. Comparison: May 08, 2020. Lung bases demonstrates minimal subsegmental atelectasis/scarring. Stable 4 mm benign anterior left base noncalcified nodule probably granulomatous. No infiltrate or effusion. Heart not enlarged. Stable tiny distal paraesophageal calcified nodes. Noncontrasted stomach and bowel loops appear nonobstructed again with total colectomy. Intact sigmoid anastomosis. Stable small right renal exophytic cyst, hysterectomy, and cholecystectomy. No free fluid/air. Remaining liver, pancreas, spleen, adrenal glands, kidneys, ureters, bladder, and aorta are unremarkable for noncontrast exam. Osseous structures intact again with L2-L3 and L5-S1 degenerative changes. Impression: 1. Stable chronic postsurgical changes, right renal cyst, chronic bony findings, and old granulomatous disease. 2. Remaining CT abdomen/pelvis without contrast exam is again negative.
[2021-03-06] MEDS ORDERED: ROCEPHIN 1 Gm-D5w 50 ml Bag** 1 G/50 ML IVPB IV STA (14:39)
[2021-03-06] MEDS ORDERED: ROCEPHIN 1 Gm-D5w 50 ml Bag** 1 G/50 ML IVPB IV ONE (14:42)
[2021-03-06 15:03] VITALS: BP 110/65; PULSE 84
[2021-03-06 15:31] LABS: ALBUMIN 3.9 g/dL (3.5-5.0); ANION GAP 13.6 MEQ/L (5-15); BILIRUBIN,TOTAL 0.7 mg/dL (0.2-1.3); Creatinine 1 1.25 mg/dL (0.52-1.04); EST GLOMERULAR FILTRATION RATE 45.7 ML/MIN; Potassium 3.9 mmol/L (3.5-5.1); Total Protein 6.7 g/dL (6.3-8.2)
== END 2021-03-06 15:24 | disposition home or self-care (01) ==
LOC: ED 13:15
DX: N39.0 Urinary tract infection, site not specified (principal); K56.7 Ileus, unspecified; R11.2 Nausea with vomiting, unspecified; R10.84 Generalized abdominal pain; J44.9 Chronic obstructive pulmonary disease, unspecified; E03.9 Hypothyroidism, unspecified; K21.9 Gastro-esophageal reflux disease without esophagitis; F41.0 Panic disorder [episodic paroxysmal anxiety]; F32.A Depression, unspecified; Z86.711 Personal history of pulmonary embolism; Z79.899 Other long term (current) drug therapy
CPT/HCPCS: 36000; 36415; 74176; 80053; 81001; 82150; 83605; 83690; 85025; 87077; 87086; 87186; 96365; 96374; 96375; 99284; J0696; J1642; J2405

== ENCOUNTER 2021-05-14 15:46 | Emergency (ER) | payer MEDICARE ==
[2021-05-14] MEDS ORDERED: DUONEB 0.5-3 MG/3 ml Neb IH ONE (16:18)
[2021-05-14] MEDS: DUONEB 0.5-3 MG/3 ml Neb IH ONE (16:21)
[2021-05-14] MEDS ORDERED: Zofran 4 MG/2 ML VIAL ONE (16:42)
[2021-05-14] MEDS ORDERED: Sodium Chloride 0.9% 1000 ML 1,000 ML ONE (16:42)
--- NOTE | 2021-05-14 16:42 | XRAY ---
Indication: Cough. Comparison: January 28, 2021. Portable chest unchanged again hyperinflated with minimal right base subsegmental atelectasis/scarring, mediastinal/right hilar calcified nodes, and right Port-A-Cath. Remaining heart and lungs unremarkable. No new/acute findings with respect to CT chest April 25, 2021.
[2021-05-14] MEDS: Sodium Chloride 0.9% 1000 ML 1,000 ML IV SCH (16:44)
[2021-05-14] MEDS: Zofran 4 MG/2 ML VIAL IV ONE (16:44)
--- NOTE | 2021-05-14 16:54 | ERPHSYRPT ---
- History of Present Illness Time Seen by Provider: 05/14/21 15:52 Source: patient Exam Limitations: no limitations Patient Subjective Stated Complaint: " I'm having trouble breathing. I feel like my abdomen is swollen". Triage Nursing Assessment: Pt presents to ER with shortness of breath and abdominal distension. She complains of upper diffused abdominal pains. Pt is alert and 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. Skin is pink, warm, and dry. Abdomen appears distended. Pt has hx of COPD. Lungs are clear with slight wheezes upon exhalation. Pt states she hasn't had a bowel movement in 6 days. Bowel sounds present throughout. Physician History: 65-year-old female with multiple medical problems including chronic respiratory failure on 2 L oxygen, history of pulmonary embolism on NOACs, chronic abdominal pain with multiple surgeries in the past presented in the ER with worsening abdominal pain and distention for the last 3 days. Does not have any bowel movement. Patient is worried about getting intestinal obstruction which she has multiple times in the past as well. Because of pain she is having shortness of breath with activity. She has a chronic cough and shortness of breath which is not any worse than usual. She did not have her oxygen on when she walked from her car to the waiting room in the ER and was short of breath. Oxygen is placed and she is not short of breath. Denies any chest pain. Timing/Duration: day(s) (3), gradual onset, worse Severity: moderate Associated Symptoms: nausea, abdominal pain, shortness of breath, heartburn, c ough, weakness Allergies/Adverse Reactions: sumatriptan [From Imitrex] Allergy (Intermediate, Verified 05/14/21 15:58) Rash codeine Allergy (Mild, Verified 05/14/21 15:58) Rash MAKES SICK nitrofurantoin [From Macrobid] Allergy (Unknown, Verified 05/14/21 15:58) sumatriptan succinate [From Imitrex] Allergy (Verified 05/14/21 15:58) morphine Adverse Reaction (Severe, Verified 05/14/21 15:58) Headache MIGRAINES fentanyl Adverse Reaction (Intermediate, Verified 05/14/21 15:58) Headache hydrocodone bitartrate [From Vicodin] Adverse Reaction (Mild, Verified 05/14/21 15:58) Vomiting hydromorphone [From Dilaudid] Adverse Reaction (Mild, Verified 03/30/22 15:58) pt states makes heache worse. Home Medications: ALPRAZolam 1 MG [Xanax 1 mg] 1 mg PO TID 02/17/13 [History] Polyethylene Glycol 3350 17 gm [Miralax Powder 17GM PACKET] 34 gm PO BID 11/15/14 [History] Sennosides/Docusate Sodium [Senokot-S Tablet] 1 tab PO DAILY 04/25/15 [History] Promethazine HCl 25 mg [Phenergan 25 mg] 25 mg PO Q4HPRN PRN 05/11/15 [H istory] Cetirizine HCl/Pseudoephedrine [Zyrtec-D Tablet] 1 each PO DAILY 02/03/16 [History] Aspirin 81 mg PO DAILY 09/11/16 [History] Levothyroxine Sodium 50 Mcg [Synthroid 50 Mcg] 50 mcg PO DAILY 07/06/17 [History] Linaclotide [Linzess] 290 mcg PO DAILY 10/07/17 [History] Rizatriptan Benzoate [Maxalt] 10 mg PO BID PRN PRN 06/23/18 [History] Fluticasone Propionate [Flonase NASAL] 2 spray NS DAILY 01/19/19 [History] Guaifenesin 600 mg ER [Mucinex 600MG ER Tabs] 600 mg PO DAILY 04/05/19 [History] Dexlansoprazole [Dexilant] 60 mg PO DAILY 01/21/20 [History] Prucalopride Succinate [Motegrity] 2 mg PO DAILY 01/21/20 [History] Fluticasone/Umeclidin/Vilanter [Trelegy Ellipta 100-62.5-25] 200 units IH DAILY 03/01/20 [History] Albuterol 2.5 mg/3 ml Neb [Proventil 2.5 mg/3 ml Neb] 2.5 mg IH QID 07/23/20 [History] Pantoprazole 20 mg [Protonix 20MG Tablet] 20 mg PO DAILY 04/24/21 [History] Hx Tetanus, Diphtheria Vaccination/Date Given: Yes Hx Influenza Vaccination/Date Given: Yes Hx Pneumococcal Vaccination/Date Given: Yes Travel Risk - International Travel Have you traveled outside of the country in past 3 weeks: No - Coronavirus Screening Are you exhibiting any of the following symptoms?: No Close contact with a COVID-19 positive Pt in past 14-21 Days: No - Vaccine Status Have you recieved a 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: Yes 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 - Vaccination Dates Date of 2cond Vaccination (if applicable): 2021 - Review of Systems Constitutional: Fatigue Eyes: No Symptoms Ears, Nose, & Throat: No Symptoms Respiratory: Cough, Dyspnea, Dyspnea on Exertion (SMITH), Wheezing Cardiac: No Symptoms Abdominal/Gastrointestinal: Abdominal Pain, Nausea, Constipation Genitourinary Symptoms: No Symptoms Musculoskeletal: No Symptoms Skin: No Symptoms Neurological: No Symptoms Endocrine: No Symptoms Hematologic/Lymphatic: No Symptoms Immunological/Allergic: No Symptoms - Past Medical History Pertinent Past Medical History: Yes Neurological History: Migraines ENT History: Cataracts Cardiac History: No Pertinent History Respiratory History: Bronchitis, COPD, Pulmonary Embolism Endocrine Medical History: Hypothyroidism Musculoskeletal History: Osteoarthritis GI Medical History: GERD, Other History: Other Psycho-Social History: Anxiety, Panic Disorder Female Reproductive Disorders: No Pertinent History Other Medical History: frequent uti's, chronic pseudo obstruction, blood clot - Past Surgical History Past Surgical History: Yes Neuro Surgical History: No Pertinent History Cardiac: No Pertinent History Respiratory: No Pertinent History Gastrointestinal: Cholecystectomy, Other Genitourinary: No Pertinent History Musculoskeletal: No Pertinent History Female Surgical History: No Pertinent History Other Surgical History: all of large intestine removed - Social History Smoking Status: Never smoker Exposure to second hand smoke: No Alcohol Use: None Drug Use: none Patient Lives Alone: No Significant Family History: no pertinent family hx - Nursing Vital Signs Nursing Vital Signs: Initial Vital Signs Temperature 96.2 F 05/14/21 15:50 Pulse Rate 120 H 05/14/21 15:50 Respiratory Rate 28 H 05/14/21 15:50 Blood Pressure 108/85 05/14/21 15:50 O2 Sat by Pulse Oximetry 99 05/14/21 15:50 Pain Scale Pain Intensity 0 - Physical Exam General Appearance: no apparent distress, alert Eye Exam: PERRL/EOMI Ears, Nose, Throat Exam: normal ENT inspection Neck Exam: normal inspection, non-tender, supple, full range of motion Respiratory Exam: diminished breath sounds, wheezing Cardiovascular Exam: normal heart sounds, tachycardia Back Exam: normal inspection, normal range of motion Extremity Exam: normal inspection, normal range of motion Neurologic Exam: alert, 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, cooperative Skin Exam: normal color SpO2 Interpretation: O2 applied SpO2: 97 O2 Delivery: Nasal Cannula - Course EKG Interpreted by Me: RATE (98), Sinus Rhythm, NORMAL AXIS, NORMAL INTERVALS, Other (Nonspecific T wave changes) Ordered Tests: Medication Summary Discontinued Medications Generic Name Dose Route Start Last Admin Trade Name Freq PRN Reason Stop Dose Admin Albuterol/Ipratropium 3 ml 05/14/21 16:10 05/14/21 16:21 Ipratropium/Albuterol Sulfate 3 Ml Ampul.Neb IH 05/14/21 16:11 3 ml STAT ONE Administration Albuterol/Ipratropium Confirm 05/14/21 16:18 Ipratropium/Albuterol Sulfate 3 Ml Ampul.Neb Administered 05/14/21 16:19 Dose 3 ml IH .STK-MED ONE Heparin Sodium (Beef Lung) 500 units 05/14/21 18:43 05/14/21 18:44 Heparin Lock Flush Pf 500 Units/5 Ml Syringe PORT FLUSH 05/14/21 18:44 500 units STAT ONE Administration Heparin Sodium (Beef Lung) Confirm 05/14/21 18:43 Heparin Lock Flush Pf 500 Units/5 Ml Syringe Administered 05/14/21 18:44 Dose 500 units .ROUTE .STK-MED ONE Sodium Chloride 1,000 mls @ 125 mls/hr 05/14/21 16:15 05/14/21 16:44 Sodium Chloride 0.9% 1000 Ml IV 06/13/21 16:14 125 mls/hr .Q8H JENNIFER Administration Sodium Chloride Confirm 05/14/21 16:42 Sodium Chloride 0.9% 1000 Ml Administered 05/14/21 16:43 Dose 1,000 mls @ ud .ROUTE .STK-MED ONE Ondansetron HCl 4 mg 05/14/21 16:07 05/14/21 16:44 Ondansetron Hcl 4 Mg/2 Ml Vial IV 05/14/21 16:08 4 mg STAT ONE Administration Ondansetron HCl Confirm 05/14/21 16:42 Ondansetron Hcl 4 Mg/2 Ml Vial Administered 05/14/21 16:43 Dose 4 mg .ROUTE .STK-MED ONE Lab/Rad Data: Laboratory Result Diagrams 05/14/21 16:20 05/14/21 16:07 Laboratory Results 05/14/21 05/14/21 05/14/21 Range/Units 16:48 16:20 16:20 WBC 5.5 (4.0-10.5) K/mm3 RBC 4.27 (4.1-5.4) M/mm3 Hgb 11.6 L (12.0-16.0) gm/dl Hct 36.2 (35-47) % MCV 84.8 (78-100) fl MCH 27.2 (26-32) pg MCHC 32.0 (32-36) g/dl RDW 15.3 H (11.5-14.0) % Plt Count 183 (150-450) K/mm3 MPV 10.6 (7.5-11.0) fl Gran % 73.6 H (36.0-66.0) % Eos # (Auto) 0.04 (0-0.5) Absolute Lymphs (auto) 0.96 L (1.0-4.6) Absolute Monos (auto) 0.42 (0.0-1.3) Lymphocytes % 17.6 L (24.0-44.0) % Monocytes % 7.7 (0.0-12.0) % Eosinophils % 0.7 (0.00-5.0) % Basophils % 0.4 (0.0-0.4) % Absolute Granulocytes 4.01 (1.4-6.9) Basophils # 0.02 (0-0.4) Sodium (137-145) mmol/L Potassium (3.5-5.1) mmol/L Chloride (98-107) mmol/L Carbon Dioxide (22-30) mmol/L Anion Gap (5-15) MEQ/L BUN (7-17) mg/dL Creatinine (0.52-1.04) mg/dL Estimated GFR ML/MIN Glucose (74-106) mg/dL Lactic Acid 1.7 (0.4-2.0) Calcium (8.4-10.2) mg/dL Total Bilirubin (0.2-1.3) mg/dL AST (14-36) U/L ALT (0-35) U/L Alkaline Phosphatase (38-126) U/L Troponin I < 0.012 (0.000-0.034) ng/mL Serum Total Protein (6.3-8.2) g/dL Albumin (3.5-5.0) g/dL Lipase (23-300) U/L 05/14/ Range/Units 16:07 WBC (4.0-10.5) K/mm3 RBC (4.1-5.4) M/mm3 Hgb (12.0-16.0) gm/dl Hct (35-47) % MCV (78-100) fl MCH (26-32) pg MCHC (32-36) g/dl RDW (11.5-14.0) % Plt Count (150-450) K/mm3 MPV (7.5-11.0) fl Gran % (36.0-66.0) % Eos # (Auto) (0-0.5) Absolute Lymphs (auto) (1.0-4.6) Absolute Monos (auto) (0.0-1.3) Lymphocytes % (24.0-44.0) % Monocytes % (0.0-12.0) % Eosinophils % (0.00-5.0) % Basophils % (0.0-0.4) % Absolute Granulocytes (1.4-6.9) Basophils # (0-0.4) Sodium 141 (137-145) mmol/L Potassium 4.0 (3.5-5.1) mmol/L Chloride 114 H (98-107) mmol/L Carbon Dioxide 15 L* (22-30) mmol/L Anion Gap 14.9 (5-15) MEQ/L BUN 20 H (7-17) mg/dL Creatinine 1.30 H (0.52-1.04) mg/dL Estimated GFR 43.7 ML/MIN Glucose 128 H (74-106) mg/dL Lactic Acid (0.4-2.0) Calcium 8.9 (8.4-10.2) mg/dL Total Bilirubin 0.60 (0.2-1.3) mg/dL AST 21 (14-36) U/L ALT 14 (0-35) U/L Alkaline Phosphatase 91 (38-126) U/L Troponin I (0.000-0.034) ng/mL Serum Total Protein 7.0 (6.3-8.2) g/dL Albumin 4.1 (3.5-5.0) g/dL Lipase 141 (23-300) U/L - Progress Progress: improved Progress Note: 05/14/21 18:41 She is given fluids and breathing treatment along with Zofran. Does not want any pain medication. Normal white count, stable chemistries. Ruled out obstruction. No acute pathology otherwise. Recommended outpatient follow-up. Counseled pt/family regarding: lab results, diagnosis, need for follow-up, rad results - Departure Departure Disposition: Home Clinical Impression: COPD with chronic bronchitis Abdominal pain Qualifiers: Abdominal location: generalized Qualified Code(s): R10.84 - Generalized abdominal pain Condition: Stable Critical Care Time: No Referrals: LLUVIA CHILDERS DO [Primary Care Provider] - Follow up/PCP as directed (1-2 days for reevaluation) Instructions: Chronic Obstructive Pulmonary Disease, Chronic Bronchitis (DC), Acute Abdomen (Belly Pain), Adult (DC) Additional Instructions: Continue with your home medications. Follow-up with primary care for reevaluation. Return to ER for worsening abdominal pain or if develop intractable nausea vomiting/fever chills etc.
[2021-05-14 16:58] LABS: Absolute Neutrophil Ct (ANC) 4.01 (1.4-6.9); Basophil (Absolute #) 0.02 (0-0.4); Eosinophil % 0.7 % (0.00-5.0); Eosinophil (Absolute #) 0.04 (0-0.5); Hematocrit 36.2 % (35-47); Hemoglobin 11.6 gm/dl (12.0-16.0); Lymphocyte (Absolute #) 0.96 (1.0-4.6); Lymphocytes % 17.6 % (24.0-44.0); Mean Cell Volume 84.8 fl (78-100); Mean Corpuscular Hemoglobin 27.2 pg (26-32); Mean Platelet Volume 10.6 fl (7.5-11.0); Monocyte (Absolute #) 0.42 (0.0-1.3); Monocytes % 7.7 % (0.0-12.0); Neutrophil % 73.6 % (36.0-66.0); Platelet Count 183 K/mm3 (150-450); Red Blood Count 4.27 M/mm3 (4.1-5.4); Red Cell Distribution Width 15.3 % (11.5-14.0); White Blood Count 5.5 K/mm3 (4.0-10.5)
[2021-05-14 17:10] LABS: ALBUMIN 4.1 g/dL (3.5-5.0); ANION GAP 14.9 MEQ/L (5-15); BILIRUBIN,TOTAL 0.6 mg/dL (0.2-1.3); Calcium 8.9 mg/dL (8.4-10.2); Creatinine 1 1.3 mg/dL (0.52-1.04); EST GLOMERULAR FILTRATION RATE 43.7 ML/MIN
--- NOTE | 2021-05-14 17:45 | XRAY ---
Indication: No bowel movement 6 days. Obstruction. Multiple contiguous axial images obtained through the abdomen and pelvis without contrast. Comparison: March 06, 2021. Lung bases again demonstrates minimal subsumed atelectasis/scarring and 4 mm benign left base noncalcified nodule. Heart not enlarged. Stomach mildly distended with food/fluid. Noncontrasted stomach and bowel loops nonobstructed. Again total colectomy with intact sigmoid anastomosis. Sigmoid colon and rectum is now fluid distended up to 9 cm favoring diarrhea. Stable small right renal exophytic cyst, hysterectomy, and cholecystectomy. No free fluid/air. Remaining liver, pancreas, spleen, adrenal glands, kidneys, ureters, bladder and aorta are unremarkable for noncontrast exam. Osseous structures intact again with mild degenerative changes. No ventral or inguinal hernias. Impression: 1. New fluid distended sigmoid and rectum favoring diarrhea. 2. Stable postsurgical changes, right renal cyst, and chronic bony findings. 3. Remaining CT abdomen/pelvis without contrast exam is negative.
[2021-05-14 18:49] VITALS: BP 98/62; PULSE 84
[2021-05-15 21:25] VITALS: O2SAT 97
== END 2021-05-14 19:00 | disposition home or self-care (01) ==
LOC: ED 15:46
DX: R10.84 Generalized abdominal pain (principal); J42 Unspecified chronic bronchitis; Z99.81 Dependence on supplemental oxygen; R11.0 Nausea; R05.3 Chronic cough; K21.9 Gastro-esophageal reflux disease without esophagitis; J96.10 Chronic respiratory failure, unspecified whether with hypoxia or hypercapnia; Z86.711 Personal history of pulmonary embolism; Z79.01 Long term (current) use of anticoagulants; Z79.899 Other long term (current) drug therapy
CPT/HCPCS: 36000; 36415; 71045; 74176; 80053; 83605; 83690; 84484; 85025; 93005; 94640; 96374; 99284; J1642; J2405; A9270-GY

== ENCOUNTER 2021-06-02 15:20 | Emergency (ER) | payer MEDICARE ==
[2021-06-02 15:45] VITALS: BP 145/64
--- NOTE | 2021-06-02 15:53 | ERPHSYRPT ---
- History of Present Illness Time Seen by Provider: 06/02/21 15:35 Source: patient Exam Limitations: no limitations Patient Subjective Stated Complaint: " I think I have a UTI. I've been having pain when I pee for 4 days". Triage Nursing Assessment: Pt presents to ER with complaints of possible UTI. Pt complains of pain, urgency, and frequency. Pt was able to give a small urine sample. Urine was dark yellow and cloudy in appearance. Pt is alert and 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. Skin is pink, warm, and dry. Pt appears in pain and rates pain 10/10 scale. Pt respirations are slightly labored, hx of asthma and has been out of her home oxygen. (Normally wears 2L O2 via [place] at home). Pt placed on hospital O2 when patient got to ER. Pt states she has had red itchy rash that she has been attempting to treat with powder at home. Pt states she doesn't want us to examine her pelvic region. Physician History: Patient is a 65-year-old female presents to emergency department for evaluation of dysuria urinary frequency and urgency. Symptoms been ongoing for the past 2 days. Symptoms are constant. No back pain. No flank pain. No fever. No abdominal pain. No nausea or vomiting. No chest pain or shortness of breath. Symptoms are moderate in intensity. No specific worsening improving factors. Patient has a history of urinary tract infections and states her symptoms are the same. Patient adds that her urine has been cloudy. Patient otherwise feels well. She voices no other complaints or concerns at this time. Timing/Duration: day(s) (2 days) Severity: moderate Modifying Factors: Improves With: nothing Associated Symptoms: denies symptoms Allergies/Adverse Reactions: sumatriptan [From Imitrex] Allergy (Intermediate, Verified 06/02/21 15:41) Rash codeine Allergy (Mild, Verified 06/02/21 15:41) Rash MAKES SICK nitrofurantoin [From Macrobid] Allergy (Unknown, Verified 06/02/21 15:41) sumatriptan succinate [From Imitrex] Allergy (Verified 06/02/21 15:41) morphine Adverse Reaction (Severe, Verified 06/02/21 15:41) Headache MIGRAINES fentanyl Adverse Reaction (Intermediate, Verified 06/02/21 15:41) Headache hydrocodone bitartrate [From Vicodin] Adverse Reaction (Mild, Verified 06/02/21 15:41) Vomiting hydromorphone [From Dilaudid] Adverse Reaction (Mild, Verified 06/02/21 15:41) pt states makes heache worse. Home Medications: ALPRAZolam 1 MG [Xanax 1 mg] 1 mg PO TID 02/17/13 [History] Polyethylene Glycol 3350 17 gm [Miralax Powder 17GM PACKET] 34 gm PO BID 11/15/14 [History] Sennosides/Docusate Sodium [Senokot-S Tablet] 1 tab PO DAILY 04/25/15 [History] Promethazine HCl 25 mg [Phenergan 25 mg] 25 mg PO Q4HPRN PRN 05/11/15 [History] Cetirizine HCl/Pseudoephedrine [Zyrtec-D Tablet] 1 each PO DAILY 02/03/16 [History] Aspirin 81 mg PO DAILY 09/11/16 [History] Levothyroxine Sodium 50 Mcg [Synthroid 50 Mcg] 50 mcg PO DAILY 07/06/17 [History] Linaclotide [Linzess] 290 mcg PO DAILY 10/07/17 [History] Rizatriptan Benzoate [Maxalt] 10 mg PO BID PRN PRN 06/23/18 [History] Fluticasone Propionate [Flonase NASAL] 2 spray NS DAILY 01/19/19 [History] Guaifenesin 600 mg ER [Mucinex 600MG ER Tabs] 600 mg PO DAILY 04/05/19 [History] Dexlansoprazole [Dexilant] 60 mg PO DAILY 01/21/20 [History] Prucalopride Succinate [Motegrity] 2 mg PO DAILY 01/21/20 [History] Fluticasone/Umeclidin/Vilanter [Trelegy Ellipta 100-62.5-25] 200 units IH DAILY 03/01/20 [History] Albuterol 2.5 mg/3 ml Neb [Proventil 2.5 mg/3 ml Neb] 2.5 mg IH QID 07/23/20 [History] Pantoprazole 20 mg [Protonix 20MG Tablet] 20 mg PO DAILY 04/24/21 [History] Hx Tetanus, Diphtheria Vaccination/Date Given: Yes Hx Influenza Vaccination/Date Given: Yes Hx Pneumococcal Vaccination/Date Given: No Immunizations Up to Date: Yes Travel Risk - International Travel Have you traveled outside of the country in past 3 weeks: No - Coronavirus Screening Are you exhibiting any of the following symptoms?: Yes Symptoms: Shortness of Breath Close contact with a COVID-19 positive Pt in past 14-21 Days: No - Vaccine Status Have you recieved a 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: Yes 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: [employer] - Vaccination Dates Date of 2cond Vaccination (if applicable): 2020 - Review of Systems Constitutional: No Symptoms, No Fever, No Chills Eyes: No Symptoms Ears, Nose, & Throat: No Symptoms Respiratory: No Symptoms, No Cough, No Dyspnea Cardiac: No Symptoms, No Chest Pain, No Edema, No Syncope Abdominal/Gastrointestinal: No Symptoms, No Abdominal Pain, No Nausea, No Vomiting, No Diarrhea Genitourinary Symptoms: No Symptoms, No Dysuria Musculoskeletal: No Symptoms, No Back Pain, No Neck Pain Skin: No Symptoms, No Rash Neurological: No Symptoms, No Dizziness, No Focal Weakness, No Sensory Changes Psychological: No Symptoms Endocrine: No Symptoms Hematologic/Lymphatic: No Symptoms Immunological/Allergic: No Symptoms All Other Systems: Reviewed and Negative - Past Medical History Pertinent Past Medical History: Yes Neurological History: Migraines ENT History: Cataracts Cardiac History: No Pertinent History Respiratory History: Bronchitis, COPD, Pulmonary Embolism Endocrine Medical History: Hypothyroidism Musculoskeletal History: Osteoarthritis GI Medical History: GERD, Other History: Other Psycho-Social History: Anxiety, Panic Disorder Female Reproductive Disorders: No Pertinent History Other Medical History: frequent uti's, chronic pseudo obstruction, blood clot - Past Surgical History Past Surgical History: Yes Neuro Surgical History: No Pertinent History Cardiac: No Pertinent History Respiratory: No Pertinent History Gastrointestinal: Cholecystectomy, Other Genitourinary: No Pertinent History Musculoskeletal: No Pertinent History Female Surgical History: No Pertinent History Other Surgical History: all of large intestine removed - Social History Smoking Status: Never smoker Exposure to second hand smoke: No Alcohol Use: None Drug Use: none Patient Lives Alone: No Significant Family History: no pertinent family hx - Nursing Vital Signs Nursing Vital Signs: Initial Vital Signs Temperature 96.3 F 06/02/21 15:29 Pulse Rate 118 H 06/02/21 15:29 Respiratory Rate 22 06/02/21 15:29 Blood Pressure 145/64 06/02/21 15:29 O2 Sat by Pulse Oximetry 97 06/02/21 15:29 Pain Scale Pain Intensity 10 - Physical Exam General Appearance: no apparent distress, alert Eye Exam: PERRL/EOMI, eyes nml inspection Ears, Nose, Throat Exam: normal ENT inspection, TMs normal, pharynx normal, moist mucous membranes Neck Exam: normal inspection, non-tender, supple, full range of motion Respiratory Exam: normal breath sounds, lungs clear, airway intact, No chest tenderness, No respiratory distress Cardiovascular Exam: regular rate/rhythm, normal heart sounds, normal peripheral pulses Gastrointestinal/Abdomen Exam: soft, normal bowel sounds, No tenderness, No mass Back Exam: normal inspection, normal range of motion, No CVA tenderness, No vertebral tenderness Extremity Exam: normal inspection, normal range of motion, pelvis stable Neurologic Exam: alert, 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, cooperative, normal mood/affect, nml cerebellar function, nml station & gait, sensation nml, No motor deficits Skin Exam: normal color, warm, dry, No rash Lymphatic Exam: No adenopathy SpO2 Interpretation: normal SpO2: 97 O2 Delivery: Room Air - Course Nursing assessment & vital signs reviewed: Yes Ordered Tests: Active Orders 24 hr Category Date Time Status UA W/RFX UR CULTURE Stat Lab 06/02/21 15:31 Ordered Medication Summary Discontinued Medications Generic Name Dose Route Start Last Admin Trade Name Freq PRN Reason Stop Dose Admin Ceftriaxone Sodium 500 mg 06/02/21 16:02 Ceftriaxone Sodium 500 Mg Vial IM 06/02/21 16:03 STAT ONE - Progress Progress: improved Progress Note: Patient reassessed. She feels well. Evaluation suggestive of urinary tract infection. Patient received an IM dose of Rocephin. A prescription for Keflex forwarded to patient's pharmacy. Urine cultures pending. Patient agrees to follow-up with primary care doctor within 48 hours for evaluation. She voices no other complaints or concerns this time. Portions of this note were created with voice recognition technology. There may be grammatical, spelling, punctuation or sound alike errors 06/02/21 16:05 Counseled pt/family regarding: lab results, diagnosis, need for follow-up - Departure Departure Disposition: Home Clinical Impression: UTI (urinary tract infection) Condition: Stable Critical Care Time: No Referrals: LLUVIA CHILDERS DO [Primary Care Provider] - Follow up/PCP as directed Additional Instructions: Discharge/Care Plan GEOVANNY FREY was seen on 06/02/21 in the Emergency Room. The patient was counseled regarding Diagnosis,Lab results, Imaging studies, need for follow up and when to return to the Emergency Room. Prescriptions given: Discharge Note I have spoken with the patient and/or caregivers. I have explained the patient's condition, diagnosis and treatment plan based on the information available to me at this time. I have answered the patient's and/or caregiver's questions and addressed any concerns. The patient and/or caregivers have as good understanding of the patient's diagnosis, condition and treatment plan as can be expected at this point. The vital signs have been stable. The patient's condition is stable and appropriate for discharge from the emergency department. The patient will pursue further outpatient evaluation with the primary care physician or other designated or consulting physician as outlined in the discharge instructions. The patient and/or caregivers are agreeable to this plan of care and follow-up instructions have been explained in detail. The patient and/or caregivers have received these instruction. The patient/and or caregivers are aware that any significant change in condition or worsening of symptoms should prompt an immediate return to this or the closest emergency department or call 911. Prescriptions: Cephalexin Mh 500 mg [Keflex 500 mg] 500 mg PO TID #21 cap
[2021-06-02] MEDS ORDERED: Rocephin 500 MG INJ IM ONE (16:02)
[2021-06-02] MEDS ORDERED: Rocephin 500 MG INJ ONE (16:07)
[2021-06-02] MEDS ORDERED: XYLOCAINE 1% HCL 20 ML MDV ONE (16:09)
[2021-06-02 16:16] VITALS: PULSE 100; O2SAT 93
[2021-06-03 09:55] LABS: Appearance CLOUDY (CLEAR); Bilirubin NEGATIVE (NEGATIVE); Dipstick done @ ? MAIN LAB; Glucose NEGATIVE (NEGATIVE); Ketones NEGATIVE (NEGATIVE); Nitrite NEGATIVE (NEGATIVE); Ph 5.5 (5-6); Protein,Urine Dip 30 (Negative); RBC MODERATE Ery/ul (0-5); Specific Gravity >=1.030 (1.005-1.025); Urobilinogen 0.2 mg/dL (0-1)
[2021-06-03 09:58] LABS: Bacteria MODERATE /HPF (NEGATIVE); Epithelial Cells RARE /HPF (FEW); Mucus SLIGHT /HPF (NEGATIVE)
[2021-06-03 09:59] LABS: Urine Cultured Indicated? YES
== END 2021-06-02 16:16 | disposition home or self-care (01) ==
LOC: ED 15:20
DX: N39.0 Urinary tract infection, site not specified (principal); R30.0 Dysuria; R35.0 Frequency of micturition; R39.15 Urgency of urination; J44.9 Chronic obstructive pulmonary disease, unspecified; K21.9 Gastro-esophageal reflux disease without esophagitis; Z79.899 Other long term (current) drug therapy
CPT/HCPCS: 36415; 81015; 82103; 82104; 87086; 96372; 99284; J0696

== ENCOUNTER 2021-06-17 04:12 | Emergency (ER) | payer MEDICARE ==
[2021-06-17 04:37] VITALS: PULSE 100; O2SAT 97
[2021-06-17 05:02] LABS: Bacteria RARE /HPF (NEGATIVE); Epithelial Cells RARE /HPF (FEW); Mucus SLIGHT /HPF (NEGATIVE)
[2021-06-17 05:03] LABS: Appearance TURBID (CLEAR); Bilirubin SMALL (NEGATIVE); Glucose 250 mg/dL (NEGATIVE); Ketones TRACE (NEGATIVE); Nitrite POSITIVE (NEGATIVE); Protein,Urine Dip >=300 (Negative); RBC NEGATIVE Ery/ul (0-5); Urobilinogen 4 mg/dL (0-1)
[2021-06-17 05:04] LABS: Oval Fat Body,Urine Many; Urine Cultured Indicated? YES
[2021-06-17 05:12] LABS: Dipstick done @ ? MAIN LAB
[2021-06-17] MEDS ORDERED: Levofloxacin 500 MG Tablet ONE (05:25)
--- NOTE | 2021-06-17 05:29 | ERPHSYRPT ---
- History of Present Illness Time Seen by Provider: 06/17/21 05:22 Source: patient Exam Limitations: no limitations Patient Subjective Stated Complaint: pt states she was in the er recently for uti, states it got better until her prescription ran out. states she has been h aving increased pain since. Triage Nursing Assessment: pt alert and oriented, answers questions approp. pt ambulatory with steady, stooped gait noted. o2 on per nc, pt wears at home. skin warm and dry. urine orange and cloudy. Physician History: Patient is a 66-year-old white female well-known to the ER primarily because of recurrent urinary tract infections. She also believes that her recurrent UTIs are due to mesh that she had placed at [facility] in [place] in the past. She complains of frequency urgency dysuria etc. Timing/Duration: other (Chronic UTI symptoms) Quality: pressure, stabbing Onset Location: suprapubic Severity of Pain-Max: severe Severity of Pain-Current: severe Prior abdominal problems: similar symptoms Sexual intercourse history: non-contributory Modifying Factors: Improves With: nothing Associated Symptoms: dysuria, polyuria, urinary frequency Allergies/Adverse Reactions: sumatriptan [From Imitrex] Allergy (Intermediate, Verified 06/17/21 04:38) Rash codeine Allergy (Mild, Verified 06/17/21 04:38) Rash MAKES SICK nitrofurantoin [From Macrobid] Allergy (Unknown, Verified 06/17/21 04:38) sumatriptan succinate [From Imitrex] Allergy (Verified 06/17/21 04:38) morphine Adverse Reaction (Severe, Verified 06/17/21 04:38) Headache MIGRAINES fentanyl Adverse Reaction (Intermediate, Verified 06/17/21 04:38) Headache hydrocodone bitartrate [From Vicodin] Adverse Reaction (Mild, Verified 06/17/21 04:38) Vomiting hydromorphone [From Dilaudid] Adverse Reaction (Mild, Verified 06/17/21 04:38) pt states makes heache worse. Home Medications: ALPRAZolam 1 MG [Xanax 1 mg] 1 mg PO TID 02/17/13 [History] Polyethylene Glycol 3350 17 gm [Miralax Powder 17GM PACKET] 34 gm PO BID 11/15/14 [History] Sennosides/Docusate Sodium [Senokot-S Tablet] 1 tab PO DAILY 04/25/15 [History] Promethazine HCl 25 mg [Phenergan 25 mg] 25 mg PO Q4HPRN PRN 05/11/15 [History] Cetirizine HCl/Pseudoephedrine [Zyrtec-D Tablet] 1 each PO DAILY 02/03/16 [History] Aspirin 81 mg PO DAILY 09/11/16 [History] Levothyroxine Sodium 50 Mcg [Synthroid 50 Mcg] 50 mcg PO DAILY 07/06/17 [History] Linaclotide [Linzess] 290 mcg PO DAILY 10/07/17 [History] Rizatriptan Benzoate [Maxalt] 10 mg PO BID PRN PRN 06/23/18 [History] Fluticasone Propionate [Flonase NASAL] 2 spray NS DAILY 01/19/19 [History] Guaifenesin 600 mg ER [Mucinex 600MG ER Tabs] 600 mg PO DAILY 04/05/19 [History] Dexlansoprazole [Dexilant] 60 mg PO DAILY 01/21/20 [History] Prucalopride Succinate [Motegrity] 2 mg PO DAILY 01/21/20 [History] Fluticasone/Umeclidin/Vilanter [Trelegy Ellipta 100-62.5-25] 200 units IH DAILY 03/01/20 [History] Albuterol 2.5 mg/3 ml Neb [Proventil 2.5 mg/3 ml Neb] 2.5 mg IH QID 07/23/20 [History] Pantoprazole 20 mg [Protonix 20MG Tablet] 20 mg PO DAILY 04/24/21 [History] Hx Tetanus, Diphtheria Vaccination/Date Given: Yes Hx Influenza Vaccination/Date Given: Yes Hx Pneumococcal Vaccination/Date Given: No Travel Risk - International Travel Have you traveled outside of the country in past 3 weeks: No - Coronavirus Screening Are you exhibiting any of the following symptoms?: No Close contact with a COVID-19 positive Pt in past 14-21 Days: No - Vaccine Status Have you recieved a 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: Yes 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[employer] - Vaccination Dates Date of 2cond Vaccination (if applicable): 2020 - Review of Systems Constitutional: No Fever, No Chills Eyes: No Symptoms Ears, Nose, & Throat: No Symptoms Respiratory: No Cough, No Dyspnea Cardiac: No Chest Pain, No Edema, No Syncope Abdominal/Gastrointestinal: No Abdominal Pain, No Nausea, No Vomiting, No Diarrhea Genitourinary Symptoms: Dysuria, Frequency, Hematuria, Urgency Musculoskeletal: No Back Pain, No Neck Pain Skin: No Rash Neurological: No Dizziness, No Focal Weakness, No Sensory Changes Psychological: No Symptoms Endocrine: No Symptoms All Other Systems: Reviewed and Negative - Past Medical History Pertinent Past Medical History: Yes Neurological History: Migraines ENT History: Cataracts Cardiac History: No Pertinent History Respiratory History: Bronchitis, COPD, Pulmonary Embolism Endocrine Medical History: Hypothyroidism Musculoskeletal History: Osteoarthritis GI Medical History: GERD, Other History: Other Psycho-Social History: Anxiety, Panic Disorder Female Reproductive Disorders: No Pertinent History Other Medical History: frequent uti's, chronic pseudo obstruction, blood clot - Past Surgical History Past Surgical History: Yes Neuro Surgical History: No Pertinent History Cardiac: No Pertinent History Respiratory: No Pertinent History Gastrointestinal: Cholecystectomy, Other Genitourinary: No Pertinent History Musculoskeletal: No Pertinent History Female Surgical History: No Pertinent History Other Surgical History: all of large intestine removed - Social History Smoking Status: Never smoker Exposure to second hand smoke: No Alcohol Use: None Drug Use: none Patient Lives Alone: Yes Significant Family History: no pertinent family hx - Nursing Vital Signs Nursing Vital Signs: Initial Vital Signs Temperature 96.1 F 06/17/21 04:16 Pulse Rate 100 H 06/17/21 04:16 Respiratory Rate 22 06/17/21 04:16 Blood Pressure 106/63 06/17/21 04:16 O2 Sat by Pulse Oximetry 97 06/17/21 04:16 Pain Scale Pain Intensity 9 - Physical Exam General Appearance: no apparent distress, alert Eye Exam: PERRL/EOMI, eyes nml inspection Ears, Nose, Throat Exam: normal ENT inspection, TMs normal, pharynx normal, moist mucous membranes Neck Exam: normal inspection, non-tender, supple, full range of motion Respiratory Exam: normal breath sounds, lungs clear, No respiratory distress Cardiovascular Exam: regular rate/rhythm, normal heart sounds, normal peripheral pulses Gastrointestinal/Abdomen Exam: soft, tenderness (Tenderness in the suprapubic area), No mass Pelvic Exam: not done Rectal Exam: deferred Back Exam: normal inspection, normal range of motion, No CVA tenderness, No vertebral tenderness Extremity Exam: normal inspection, normal range of motion, pelvis stable Neurologic Exam: alert, 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, cooperative, 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 nml as tested, normal mood/affect, sensation nml, No motor deficits Skin Exam: normal color, warm, dry Lymphatic Exam: No adenopathy SpO2: 97 - Course Nursing assessment & vital signs reviewed: Yes Ordered Tests: Active Orders 24 hr Category Date Time Status CULTURE,URINE Stat Lab 06/17/21 04:26 Received UA W/RFX CULTURE Stat Lab 06/17/21 04:26 Completed Medication Summary Generic Name Dose Route Start Last Admin Trade Name Freq PRN Reason Stop Dose Admin Levofloxacin 750 mg 06/17/21 10:00 Levofloxacin 500 Mg Tablet PO 07/17/21 09:59 DAILY JENNIFER Lab/Rad Data: Laboratory Results 06/17/21 Range/Units 04:26 Urinalys Dipstick Clnc MAIN LAB Urine Color ORANGE (YELLOW) Urine Appearance TURBID (CLEAR) Urine pH 5.0 (5-6) Ur Specific [place] 1.020 (1.005-1.025) POC Urine Protein Conf >=300 (Negative) Urine Ketones TRACE (NEGATIVE) Urine Nitrite POSITIVE (NEGATIVE) Urine Bilirubin SMALL (NEGATIVE) Urine Urobilinogen 4 (0-1) mg/dL Urine Leukocytes LARGE (NEGATIVE) U Epithel Cells (Auto) RARE (FEW) /HPF Urine Bacteria (Auto) RARE (NEGATIVE) /HPF Urine RBC NEGATIVE (0-5) Aroldo/ul Urine Mucus (Auto) SLIGHT (NEGATIVE) /HPF Ur Oval Fat Bodies Auto Many Ur Culture Indicated? YES Urine Glucose 250 (NEGATIVE) mg/dL - Progress Progress: unchanged Air Movement: good Blood Culture(s) Obtained: No Antibiotics given: Yes - Departure Departure Disposition: Home Clinical Impression: UTI (urinary tract infection) Condition: Fair Critical Care Time: No Referrals: LLUVIA CHILDERS DO [Primary Care Provider] - Follow up/PCP as directed Instructions: Urinary Tract Infection, Adult (DC) Prescriptions: Levofloxacin [Levofloxacin 500 MG Tablet] 500 mg PO DAILY 10 Days #10 tablet Phenazopyridine HCl 200 mg [Pyridium 200 mg] 200 mg PO TID #6 tablet
[2021-06-17 05:35] VITALS: BP 92/53
[2021-06-17] MEDS ORDERED: Levofloxacin 500 MG Tablet PO SCH (10:00)
== END 2021-06-17 05:43 | disposition home or self-care (01) ==
LOC: ED 04:12
DX: N39.0 Urinary tract infection, site not specified (principal); R30.0 Dysuria; R35.0 Frequency of micturition; R39.15 Urgency of urination; R10.2 Pelvic and perineal pain; J44.9 Chronic obstructive pulmonary disease, unspecified; Z79.899 Other long term (current) drug therapy
CPT/HCPCS: 81015; 87077; 87086; 87186; 99283; A9270-GY

== ENCOUNTER 2021-07-01 09:23 | Emergency (ER) | payer MEDICARE ==
[2021-07-01 09:53] VITALS: BP 103/77
[2021-07-01 10:22] LABS: Absolute Neutrophil Ct (ANC) 3.92 (1.4-6.9); Basophil (Absolute #) 0.02 (0-0.4); Eosinophil % 0.9 % (0.00-5.0); Eosinophil (Absolute #) 0.05 (0-0.5); Hematocrit 35.5 % (35-47); Hemoglobin 11.3 gm/dl (12.0-16.0); Lymphocyte (Absolute #) 1.04 (1.0-4.6); Lymphocytes % 18.9 % (24.0-44.0); Mean Cell Volume 86.2 fl (78-100); Mean Corpuscular Hemoglobin 27.4 pg (26-32); Mean Corpuscular Hgb Concent. 31.8 g/dl (32-36); Monocyte (Absolute #) 0.47 (0.0-1.3); Monocytes % 8.5 % (0.0-12.0); Neutrophil % 71.3 % (36.0-66.0); Platelet Count 183 K/mm3 (150-450); Red Blood Count 4.12 M/mm3 (4.1-5.4); Red Cell Distribution Width 15.6 % (11.5-14.0); White Blood Count 5.5 K/mm3 (4.0-10.5)
[2021-07-01 10:26] LABS: Appearance SLIGHTLY CLOUDY (CLEAR); Bacteria MANY /HPF (NEGATIVE); Bilirubin MODERATE (NEGATIVE); Epithelial Cells RARE /HPF (FEW); Glucose 250 mg/dL (NEGATIVE); Hyaline Casts 26-50 /LPF (0-2); Mucus MODERATE /HPF (NEGATIVE)
[2021-07-01 10:27] LABS: Dipstick done @ ? MAIN LAB; Ketones SMALL-15 (NEGATIVE); Nitrite POSITIVE (NEGATIVE); Protein,Urine Dip >=300 (Negative); RBC SMALL Ery/ul (0-5); Specific Gravity 1.015 (1.005-1.025); Urobilinogen >=8.0 mg/dL (0-1)
[2021-07-01 10:32] LABS: ALBUMIN 4.1 g/dL (3.5-5.0); ANION GAP 14.6 MEQ/L (5-15); BILIRUBIN,TOTAL 0.5 mg/dL (0.2-1.3); Calcium 8.8 mg/dL (8.4-10.2); Creatinine 1 1.43 mg/dL (0.52-1.04); Potassium 3.3 mmol/L (3.5-5.1); Total Protein 7.2 g/dL (6.3-8.2)
[2021-07-01 10:36] VITALS: PULSE 78; O2SAT 98
[2021-07-01 10:37] LABS: Urine Cultured Indicated? YES
--- NOTE | 2021-07-01 11:51 | ERPHSYRPT ---
- History of Present Illness Time Seen by Provider: 07/01/21 10:00 Source: patient Exam Limitations: no limitations Patient Subjective Stated Complaint: pt here for vaginal bleeding for a couple days and upper abd pain Triage Nursing Assessment: pt alert, resp easy at rest, labored with excertion which is normal for her , on o2 at 2lnc, skin w/d/p, she states has bright red blood on depends with an occ, clott Physician History: Patient is a 66-year-old female who presents with a complaint of some abdominal pain and vaginal bleeding for 2 to 3 days. She is well-known to the ER with multiple recurrent urinary tract infections. She also has had a total abdominal hysterectomy. She is followed by Dr. Hidalgo who does not prescribe antibiotics for her urinary tract infections because she feels she should see urology. She also refuses to use see infectious disease. Timing/Duration: day(s) (3) Activites at Onset: none Quality: cramping Onset Location: vaginal Severity of Pain-Max: mild Severity of Pain-Current: mild Prior abdominal problems: UTI Sexual intercourse history: non-contributory Modifying Factors: Improves With: nothing Allergies/Adverse Reactions: sumatriptan [From Imitrex] Allergy (Intermediate, Verified 07/01/21 09:58) Rash codeine Allergy (Mild, Verified 07/01/21 09:58) Rash MAKES SICK nitrofurantoin [From Macrobid] Allergy (Unknown, Verified 07/01/21 09:58) sumatriptan succinate [From Imitrex] Allergy (Verified 07/01/21 09:58) morphine Adverse Reaction (Severe, Verified 07/01/21 09:58) Headache MIGRAINES fentanyl Adverse Reaction (Intermediate, Verified 07/01/21 09:58) Headache hydrocodone bitartrate [From Vicodin] Adverse Reaction (Mild, Verified 07/01/21 09:58) Vomiting hydromorphone [From Dilaudid] Adverse Reaction (Mild, Verified 07/01/21 09:58) pt states makes heache worse. Home Medications: ALPRAZolam 1 MG [Xanax 1 mg] 1 mg PO TID 02/17/13 [History] Polyethylene Glycol 3350 17 gm [Miralax Powder 17GM PACKET] 34 gm PO BID 10/01/15 [History] Sennosides/Docusate Sodium [Senokot-S Tablet] 1 tab PO DAILY 04/25/15 [History] Promethazine HCl 25 mg [Phenergan 25 mg] 25 mg PO Q4HPRN PRN 05/11/15 [History] Cetirizine HCl/Pseudoephedrine [Zyrtec-D Tablet] 1 each PO DAILY 02/03/16 [History] Aspirin 81 mg PO DAILY 09/11/16 [History] Levothyroxine Sodium 50 Mcg [Synthroid 50 Mcg] 50 mcg PO DAILY 07/06/17 [History] Linaclotide [Linzess] 290 mcg PO DAILY 10/07/17 [History] Rizatriptan Benzoate [Maxalt] 10 mg PO BID PRN PRN 06/23/18 [History] Fluticasone Propionate [Flonase NASAL] 2 spray NS DAILY 01/19/19 [History] Guaifenesin 600 mg ER [Mucinex 600MG ER Tabs] 600 mg PO DAILY 04/05/19 [History] Dexlansoprazole [Dexilant] 60 mg PO DAILY 01/21/20 [History] Prucalopride Succinate [Motegrity] 2 mg PO DAILY 01/21/20 [History] Fluticasone/Umeclidin/Vilanter [Trelegy Ellipta 100-62.5-25] 200 units IH DAILY 03/01/20 [History] Albuterol 2.5 mg/3 ml Neb [Proventil 2.5 mg/3 ml Neb] 2.5 mg IH QID 07/23/20 [History] Pantoprazole 20 mg [Protonix 20MG Tablet] 20 mg PO DAILY 04/24/21 [History] Hx Tetanus, Diphtheria Vaccination/Date Given: Yes Hx Influenza Vaccination/Date Given: Yes Hx Pneumococcal Vaccination/Date Given: No Travel Risk - International Travel Have you traveled outside of the country in past 3 weeks: No - Coronavirus Screening Are you exhibiting any of the following symptoms?: No - Vaccine Status Have you recieved a 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: 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: [employer] - Vaccination Dates Date of 2cond Vaccination (if applicable): 2020 - Review of Systems Constitutional: No Fever, No Chills Eyes: No Symptoms Ears, Nose, & Throat: No Symptoms Respiratory: No Cough, No Dyspnea Cardiac: No Chest Pain, No Edema, No Syncope Abdominal/Gastrointestinal: No Abdominal Pain, No Nausea, No Vomiting, No Diarrhea Genitourinary Symptoms: Vaginal Bleeding, No Dysuria Musculoskeletal: No Back Pain, No Neck Pain Skin: No Rash Neurological: No Dizziness, No Focal Weakness, No Sensory Changes Psychological: No Symptoms Endocrine: No Symptoms All Other Systems: Reviewed and Negative - Past Medical History Pertinent Past Medical History: Yes Neurological History: Migraines ENT History: Cataracts Cardiac History: No Pertinent History Respiratory History: Bronchitis, COPD, Pulmonary Embolism Endocrine Medical History: Hypothyroidism Musculoskeletal History: Osteoarthritis GI Medical History: GERD, Other History: Other Psycho-Social History: Anxiety, Panic Disorder Female Reproductive Disorders: No Pertinent History Other Medical History: frequent uti's, chronic pseudo obstruction, blood clot - Past Surgical History Past Surgical History: Yes Neuro Surgical History: No Pertinent History Cardiac: No Pertinent History Respiratory: No Pertinent History Gastrointestinal: Cholecystectomy, Other Genitourinary: No Pertinent History Musculoskeletal: No Pertinent History Female Surgical History: No Pertinent History Other Surgical History: all of large intestine removed - Social History Smoking Status: Never smoker Exposure to second hand smoke: No Alcohol Use: None Drug Use: none Patient Lives Alone: No Significant Family History: no pertinent family hx - Nursing Vital Signs Nursing Vital Signs: Initial Vital Signs Pulse Rate 120 H 07/01/21 09:50 Respiratory Rate 22 07/01/21 09:50 Blood Pressure 103/77 07/01/21 09:50 O2 Sat by Pulse Oximetry 96 07/01/21 09:50 Pain Scale Pain Intensity 8 - Physical Exam General Appearance: no apparent distress, alert Eye Exam: PERRL/EOMI, eyes nml inspection Ears, Nose, Throat Exam: normal ENT inspection, TMs normal, pharynx normal, moist mucous membranes Neck Exam: normal inspection, non-tender, supple, full range of motion Respiratory Exam: normal breath sounds, lungs clear, No respiratory distress Cardiovascular Exam: regular rate/rhythm, normal heart sounds, normal peripheral pulses Gastrointestinal/Abdomen Exam: soft, No tenderness, No mass Pelvic Exam: other (Speculum examination revealed a small amount of blood in the vaginal vault not enough to cover a cotton tip applicator and. 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 nml as tested, normal mood/affect, sensation nml, No motor deficits Skin Exam: normal color, warm, dry Lymphatic Exam: No adenopathy SpO2 Interpretation: normal SpO2: 98 O2 Delivery: Room Air - Course Nursing assessment & vital signs reviewed: Yes Ordered Tests: Active Orders 24 hr Category Date Time Status Pelvic Exam Assist STAT Care 07/01/21 10:01 Active CBC W DIFF Stat Lab 07/01/21 10:21 Completed CMP Stat Lab 07/01/21 10:21 Completed CULTURE,URINE Stat Lab 07/01/21 10:21 Received UA W/RFX CULTURE Stat Lab 07/01/21 10:21 Completed Lab/Rad Data: Laboratory Result Diagrams 07/01/21 10:21 07/01/21 10:21 Laboratory Results 07/01/21 07/01/21 07/01/21 Range/Units 10:21 10:21 10:21 WBC 5.5 (4.0-10.5) K/mm3 RBC 4.12 (4.1-5.4) M/mm3 Hgb 11.3 L (12.0-16.0) gm/dl Hct 35.5 (35-47) % MCV 86.2 (78-100) fl MCH 27.4 (26-32) pg MCHC 31.8 L (32-36) g/dl RDW 15.6 H (11.5-14.0) % Plt Count 183 (150-450) K/mm3 MPV 10.0 (7.5-11.0) fl Gran % 71.3 H (36.0-66.0) % Eos # (Auto) 0.05 (0-0.5) Absolute Lymphs (auto) 1.04 (1.0-4.6) Absolute Monos (auto) 0.47 (0.0-1.3) Lymphocytes % 18.9 L (24.0-44.0) % Monocytes % 8.5 (0.0-12.0) % Eosinophils % 0.9 (0.00-5.0) % Basophils % 0.4 (0.0-0.4) % Absolute Granulocytes 3.92 (1.4-6.9) Basophils # 0.02 (0-0.4) Sodium 139 (137-145) mmol/L Potassium 3.3 L (3.5-5.1) mmol/L Chloride 108 H (98-107) mmol/L Carbon Dioxide 19 L (22-30) mmol/L Anion Gap 14.6 (5-15) MEQ/L BUN 27 H (7-17) mg/dL Creatinine 1.43 H (0.52-1.04) mg/dL Estimated GFR 39.0 ML/MIN Glucose 102 (74-106) mg/dL Calcium 8.8 (8.4-10.2) mg/dL Total Bilirubin 0.50 (0.2-1.3) mg/dL AST 22 (14-36) U/L ALT 14 (0-35) U/L Alkaline Phosphatase 100 (38-126) U/L Serum Total Protein 7.2 (6.3-8.2) g/dL Albumin 4.1 (3.5-5.0) g/dL Urinalys Dipstick Clnc MAIN LAB Urine Color ORANGE (YELLOW) Urine Appearance SLIGHTLY CLOUDY (CLEAR) Urine pH 5.0 (5-6) Ur Specific [place] 1.015 (1.005-1.025) POC Urine Protein Conf >=300 (Negative) Urine Ketones SMALL-15 (NEGATIVE) Urine Nitrite POSITIVE (NEGATIVE) Urine Bilirubin MODERATE (NEGATIVE) Urine Urobilinogen >=8.0 (0-1) mg/dL Urine Leukocytes LARGE (NEGATIVE) Urine WBC (Auto) 16-25 (0-5) /HPF Urine RBC (Auto) 11-15 (0-2) /HPF U Hyaline Cast (Auto) 26-50 (0-2) /LPF U Epithel Cells (Auto) RARE (FEW) /HPF Urine Bacteria (Auto) MANY (NEGATIVE) /HPF Urine RBC SMALL (0-5) Aroldo/ul Urine Mucus (Auto) MODERATE (NEGATIVE) /HPF Ur Culture Indicated? YES Urine Glucose 250 (NEGATIVE) mg/dL - Progress Progress: unchanged Air Movement: fair, good Progress Note: 07/01/21 11:51 He did discuss the situation with Dr. 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 Blood Culture(s) Obtained: No Antibiotics given: No Discussed with : Jodie - Departure Departure Disposition: Home Clinical Impression: Vaginal bleeding Condition: Stable Critical Care Time: No Referrals: LLUVIA CHILDERS DO [Primary Care Provider] - Follow up/PCP as directed Additional Instructions: Patient was told to Dr. Hidalgo's desire for MANAGER [employer]LECT[employer] assessment and she is agreeable to see Dr. Shannon Dobson an appointment was made for tomorrow at 845 the phone number is [phone].
[2021-07-01] MEDS ORDERED: Heparin 5000 UNITS/0.5 ML (HIGH RISK MED) ONE (12:10)
== END 2021-07-01 12:19 | disposition home or self-care (01) ==
LOC: ED 09:23
DX: N93.9 Abnormal uterine and vaginal bleeding, unspecified (principal); R10.9 Unspecified abdominal pain; J44.9 Chronic obstructive pulmonary disease, unspecified; Z79.899 Other long term (current) drug therapy
CPT/HCPCS: 36415; 80053; 81015; 85025; 87086; 99284; J1642; J1644

== ENCOUNTER 2021-07-03 23:48 | Emergency (ER) | payer MEDICARE ==
[2021-07-03] MEDS ORDERED: XYLOCAINE 1% HCL 20 ML MDV IJ ONE (23:49)
--- NOTE | 2021-07-04 | ERPHSYRPT ---
- History of Present Illness Time Seen by Provider: 07/03/21 23:59 Source: patient Exam Limitations: no limitations Physician History: This is a 66-year-old white female patient complains of vaginal bleeding when she urinates. She is seen us in the emergency department just a few days ago then was evaluated by a mobile home set up person yesterday and back again today because of h ematuria. Patient does have frequent urinary tract infections. She is hemodynamically stable upon entrance into the emergency department. Ups Driver performed a thorough vaginal examination and did not see any site of bleeding. This examination was performed yesterday. Timing/Duration: day(s) Activites at Onset: none Quality: burning Onset Location: vaginal Pain Radiation: none Severity of Pain-Max: mild (Moderate) Severity of Pain-Current: mild (Moderate) Sexual intercourse history: non-contributory Modifying Factors: Improves With: nothing Associated Symptoms: dysuria, other (Hematuria) Allergies/Adverse Reactions: sumatriptan [From Imitrex] Allergy (Intermediate, Verified 07/04/21 00:00) Rash codeine Allergy (Mild, Verified 07/04/21 00:00) Rash MAKES SICK nitrofurantoin [From Macrobid] Allergy (Unknown, Verified 07/04/21 00:00) sumatriptan succinate [From Imitrex] Allergy (Verified 07/04/21 00:00) morphine Adverse Reaction (Severe, Verified 07/04/21 00:00) Headache MIGRAINES fentanyl Adverse Reaction (Intermediate, Verified 07/04/21 00:00) Headache hydrocodone bitartrate [From Vicodin] Adverse Reaction (Mild, Verified 07/04/21 00:00) Vomiting hydromorphone [From Dilaudid] Adverse Reaction (Mild, Verified 07/04/21 00:00) pt states makes heache worse. Home Medications: ALPRAZolam 1 MG [Xanax 1 mg] 1 mg PO TID 02/17/13 [History] Polyethylene Glycol 3350 17 gm [Miralax Powder 17GM PACKET] 34 gm PO BID 11/15/14 [History] Sennosides/Docusate Sodium [Senokot-S Tablet] 1 tab PO DAILY 04/25/15 [History] Promethazine HCl 25 mg [Phenergan 25 mg] 25 mg PO Q4HPRN PRN 05/11/15 [History] Cetirizine HCl/Pseudoephedrine [Zyrtec-D Tablet] 1 each PO DAILY 02/03/16 [History] Aspirin 81 mg PO DAILY 09/11/16 [History] Levothyroxine Sodium 50 Mcg [Synthroid 50 Mcg] 50 mcg PO DAILY 07/06/17 [History] Linaclotide [Linzess] 290 mcg PO DAILY 10/07/17 [History] Rizatriptan Benzoate [Maxalt] 10 mg PO BID PRN PRN 06/23/18 [History] Fluticasone Propionate [Flonase NASAL] 2 spray NS DAILY 01/19/19 [History] Guaifenesin 600 mg ER [Mucinex 600MG ER Tabs] 600 mg PO DAILY 04/05/19 [History] Dexlansoprazole [Dexilant] 60 mg PO DAILY 01/21/20 [History] Prucalopride Succinate [Motegrity] 2 mg PO DAILY 01/21/20 [History] Fluticasone/Umeclidin/Vilanter [Trelegy Ellipta 100-62.5-25] 200 units IH DAILY 03/01/20 [History] Albuterol 2.5 mg/3 ml Neb [Proventil 2.5 mg/3 ml Neb] 2.5 mg IH QID 07/23/20 [History] Pantoprazole 20 mg [Protonix 20MG Tablet] 20 mg PO DAILY 04/24/21 [History] Hx Tetanus, Diphtheria Vaccination/Date Given: Yes Hx Influenza Vaccination/Date Given: Yes Hx Pneumococcal Vaccination/Date Given: No Travel Risk - International Travel Have you traveled outside of the country in past 3 weeks: No - Coronavirus Screening Are you exhibiting any of the following symptoms?: No Close contact with a COVID-19 positive Pt in past 14-21 Days: No - Vaccine Status Have you recieved a 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: Yes 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[employer] - Vaccination Dates Date of 2cond Vaccination (if applicable): 2020 - Review of Systems Constitutional: No Symptoms Eyes: No Symptoms Ears, Nose, & Throat: No Symptoms Respiratory: No Symptoms Cardiac: No Symptoms Abdominal/Gastrointestinal: No Symptoms Genitourinary Symptoms: Hematuria Musculoskeletal: No Symptoms Skin: No Symptoms Neurological: No Symptoms Psychological: No Symptoms Endocrine: No Symptoms Hematologic/Lymphatic: No Symptoms Immunological/Allergic: No Symptoms All Other Systems: Reviewed and Negative - Past Medical History Pertinent Past Medical History: Yes Neurological History: Migraines ENT History: Cataracts Cardiac History: No Pertinent History Respiratory History: Bronchitis, COPD, Pulmonary Embolism Endocrine Medical History: Hypothyroidism Musculoskeletal History: Osteoarthritis GI Medical History: GERD, Other History: Other Psycho-Social History: Anxiety, Panic Disorder Female Reproductive Disorders: No Pertinent History Other Medical History: frequent uti's, chronic pseudo obstruction, blood clot - Past Surgical History Past Surgical History: Yes Neuro Surgical History: No Pertinent History Cardiac: No Pertinent History Respiratory: No Pertinent History Gastrointestinal: Cholecystectomy, Other Genitourinary: No Pertinent History Musculoskeletal: No Pertinent History Female Surgical History: No Pertinent History Other Surgical History: all of large intestine removed - Social History Smoking Status: Never smoker Exposure to second hand smoke: No Alcohol Use: None Drug Use: none Patient Lives Alone: No Significant Family History: no pertinent family hx - Nursing Vital Signs Nursing Vital Signs: Initial Vital Signs Temperature 99.1 F 07/04/21 00:02 Pulse Rate 107 H 07/04/21 00:02 Respiratory Rate 22 07/04/21 00:02 Blood Pressure 102/63 07/04/21 00:02 O2 Sat by Pulse Oximetry 95 07/04/21 00:02 Pain Scale Pain Intensity 8 - Physical Exam General Appearance: no apparent distress, alert, anxiety Eye Exam: PERRL/EOMI, eyes nml inspection Ears, Nose, Throat Exam: normal ENT inspection, moist mucous membranes Neck Exam: normal inspection, non-tender, supple, full range of motion Respiratory Exam: normal breath sounds, lungs clear, airway intact, No chest tenderness, No respiratory distress Cardiovascular Exam: tachycardia Gastrointestinal/Abdomen Exam: soft, normal bowel sounds, tenderness (Pubic palpation), No guarding Pelvic Exam: not done Rectal Exam: not done Back Exam: normal inspection, normal range of motion, No CVA tenderness, No vertebral tenderness Extremity Exam: normal inspection, normal range of motion, pelvis stable Neurologic Exam: alert, 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, cooperative, transformer maker II-XII nml as tested, normal mood/affect, nml cerebellar function, nml station & gait, sensation nml Skin Exam: normal color, warm, dry Lymphatic Exam: No adenopathy SpO2 Interpretation: normal O2 Delivery: Room Air Ordered Tests: Medication Summary Discontinued Medications Generic Name Dose Route Start Last Admin Trade Name Elton PRN Reason Stop Dose Admin Ceftriaxone Sodium Confirm 07/04/21 01:39 Ceftriaxone Sodium 1000 Mg Inj Vial Administered 07/04/21 01:40 Dose 1,000 mg .ROUTE .[employer]-MED ONE Lab/Rad Data: Laboratory Result Diagrams 07/04/21 00:05 Laboratory Results 07/04/21 07/04/21 Range/Units 00:09 00:05 WBC 5.1 (4.0-10.5) x10^3/uL RBC 3.87 L (4.1-5.4) x10^6/uL Hgb 10.4 L (12.0-16.0) g/dL Hct 33.8 L (35-47) % MCV 87.3 (78-100) fL MCH 26.9 (26-32) pg MCHC 30.8 L (32-36) g/dL RDW 15.2 H (11.5-14.0) % Plt Count 176 (150-450) x10^3/uL MPV 10.3 (7.5-11.0) fL Gran % 67.0 H (36.0-66.0) % Immature Gran % (Auto) 0.8 H (0.00-0.4) % Nucleat RBC Rel Count 0.0 (0.00-0.1) % Eos # (Auto) 0.07 (0-0.5) x10^3/uL Immature Gran # (Auto) 0.04 H (0.00-0.03) x10^3u/L Absolute Lymphs (auto) 1.12 (1.0-4.6) x10^3/uL Absolute Monos (auto) 0.42 (0.0-1.3) x10^3/uL Absolute Nucleated RBC 0.00 (0.00-0.01) x10^3u/L Lymphocytes % 21.8 L (24.0-44.0) % Monocytes % 8.2 (0.0-12.0) % Eosinophils % 1.4 (0.00-5.0) % Basophils % 0.8 (0.0-0.4) % Absolute Granulocytes 3.44 (1.4-6.9) x10^3/uL Basophils # 0.04 (0-0.4) x10^3/uL Urinalys Dipstick Clnc MAIN LAB Urine Color ORANGE (YELLOW) Urine Appearance SLIGHTLY CLOUDY (CLEAR) Urine pH 5.0 (5-6) Ur Specific Tennyson >=1.030 (1.005-1.025) POC Urine Protein Conf 100 (Negative) Urine Ketones NEGATIVE (NEGATIVE) Urine Nitrite POSITIVE (NEGATIVE) Urine Bilirubin NEGATIVE (NEGATIVE) Urine Urobilinogen 1 (0-1) mg/dL Urine Leukocytes TRACE (NEGATIVE) Urine WBC (Auto) 6-10 (0-5) /HPF Urine RBC (Auto) 11-15 (0-2) /HPF U Hyaline Cast (Auto) 11-25 (0-2) /LPF U Epithel Cells (Auto) MODERATE (FEW) /HPF Urine Bacteria (Auto) MANY (NEGATIVE) /HPF Urine RBC LARGE (0-5) Aroldo/ul Urine Mucus (Auto) MODERATE (NEGATIVE) /HPF Ur Culture Indicated? YES Urine Glucose 100 (NEGATIVE) mg/dL - Progress Progress: re-examined Air Movement: good Progress Note: 07/07/21 07:10 see paper charting Blood Culture(s) Obtained: Yes Antibiotics given: Yes Counseled pt/family regarding: lab results, diagnosis, need for follow-up, rad results - Departure Departure Disposition: Home Clinical Impression: UTI (urinary tract infection), Hematuria Condition: Stable Critical Care Time: No Referrals: LLUVIA CHILDERS, DO [Primary Care Provider] - Follow up/PCP as directed
[2021-07-04 00:20] VITALS: BP 102/63; PULSE 107; O2SAT 95
[2021-07-04] MEDS ORDERED: Rocephin 1000 MG INJ ONE (01:39)
[2021-07-04 02:38] LABS: Absolute Neutrophil Ct (ANC) 3.44 x10^3/uL (1.4-6.9); Basophil (Absolute #) 0.04 x10^3/uL (0-0.4); Eosinophil % 1.4 % (0.00-5.0); Eosinophil (Absolute #) 0.07 x10^3/uL (0-0.5); Hematocrit 33.8 % (35-47); Hemoglobin 10.4 g/dL (12.0-16.0); Lymphocyte (Absolute #) 1.12 x10^3/uL (1.0-4.6); Lymphocytes % 21.8 % (24.0-44.0); Mean Cell Volume 87.3 fL (78-100); Mean Corpuscular Hemoglobin 26.9 pg (26-32); Mean Corpuscular Hgb Concent. 30.8 g/dL (32-36); Mean Platelet Volume 10.3 fL (7.5-11.0); Monocyte (Absolute #) 0.42 x10^3/uL (0.0-1.3); Monocytes % 8.2 % (0.0-12.0); Platelet Count 176 x10^3/uL (150-450); Red Blood Count 3.87 x10^6/uL (4.1-5.4); Red Cell Distribution Width 15.2 % (11.5-14.0); White Blood Count 5.1 x10^3/uL (4.0-10.5)
[2021-07-04 02:42] LABS: Bacteria MANY /HPF (NEGATIVE); Epithelial Cells MODERATE /HPF (FEW); Mucus MODERATE /HPF (NEGATIVE)
[2021-07-04 02:44] LABS: Appearance SLIGHTLY CLOUDY (CLEAR); Bilirubin NEGATIVE (NEGATIVE); Glucose 100 mg/dL (NEGATIVE); Ketones NEGATIVE (NEGATIVE); Nitrite POSITIVE (NEGATIVE); Protein,Urine Dip 100 (Negative); RBC LARGE Ery/ul (0-5); Specific Gravity >=1.030 (1.005-1.025); Urobilinogen 1 mg/dL (0-1)
[2021-07-04 02:45] LABS: Dipstick done @ ? MAIN LAB
[2021-07-04 02:51] LABS: Urine Cultured Indicated? YES
--- NOTE | 2021-07-04 08:46 | XRAY ---
Indication: Vaginal bleeding since June 19, 2021. Recent UTIs. Multiple contiguous axial images obtained through the abdomen and pelvis without contrast. Comparison: May 14, 2021. Lung bases again demonstrates scattered subsegmental atelectasis/scarring and a few noncalcified micronodules unchanged. No infiltrate or effusion. Heart not enlarged again with multiple mediastinal and bilateral infrahilar calcified nodes. Noncontrasted stomach and bowel loops appear nonobstructed with stable colectomy and intact sigmoid anastomosis. Again hysterectomy and cholecystectomy. No free fluid/air. Stable small right renal exophytic cyst and tiny splenic calcified granuloma. Remaining liver, pancreas, spleen, adrenal glands, kidneys, ureters, empty bladder, and aorta are unremarkable for noncontrast exam. Osseous structures intact again with mild degenerative changes throughout the spine. Impression: 1. Stable small right renal cyst, chronic bony findings, and old granulomatous disease. 2. Stable bibasilar noncalcified pulmonary micronodules probably granulomatous as there is old granulomatous disease elsewhere. 3. Remaining CT abdomen/pelvis without contrast exam is negative. Comment: Preliminary interpretation made by C. No critical discrepancy.
== END 2021-07-04 01:50 | disposition home or self-care (01) ==
LOC: ED 23:48
DX: N39.0 Urinary tract infection, site not specified (principal); R31.9 Hematuria, unspecified; R30.0 Dysuria; J44.9 Chronic obstructive pulmonary disease, unspecified; Z79.899 Other long term (current) drug therapy
CPT/HCPCS: 36415; 74176; 81015; 85025; 87086; 99284; J0696

== ENCOUNTER 2021-07-10 07:45 | Emergency (ER) | payer MEDICARE ==
[2021-07-10] MEDS ORDERED: Sodium Chloride 0.9% 1000 ML 1,000 ML IV STA (08:00)
[2021-07-10] MEDS ORDERED: TORAdol 30 mg Injection IV ONE (08:01)
[2021-07-10] MEDS ORDERED: Compazine 10 MG/2 ML IV ONE (08:01)
[2021-07-10] MEDS ORDERED: BENADRYL 50 MG/ML IV ONE (08:02)
[2021-07-10] MEDS ORDERED: Compazine 10 MG/2 ML ONE (08:09)
[2021-07-10] MEDS ORDERED: Sodium Chloride 0.9% 1000 ML 1,000 ML ONE (08:09)
[2021-07-10] MEDS ORDERED: TORAdol 30 mg Injection ONE (08:09)
[2021-07-10] MEDS ORDERED: BENADRYL 50 MG/ML ONE (08:09)
--- NOTE | 2021-07-10 08:33 | ERPHSYRPT ---
- History of Present Illness Time Seen by Provider: 07/10/21 07:55 Source: patient Exam Limitations: no limitations Patient Subjective Stated Complaint: migraine and intermittent vomiting since 2300 last night Triage Nursing Assessment: . Physician History: Patient is a 66-year-old female presents to emergency department via EMS for evaluation of a migraine. Patient has a history of migraine headaches. Patient states this migraine headache today is somewhat worse than normal. Patient concerned that she is on a blood thinner. Patient's migraine has been intermittent. Symptoms started last night. Patient vomited as well. Patient describes her headache as severe. It is both light and sound sensitive. Mild dizziness. Symptoms are constant. Symptoms are now constant. Patient took a dose of Phenergan and/or Maxalt at 2300. No fever. No nuchal rigidity. No meningeal signs. Patient currently on antibiotics for chronic UTI. Patient voices no other complaints or concerns at this time. Timing/Duration: yesterday Quality: aching Head Pain Location: global Severity of Pain-Max: moderate Severity of Pain-Current: mild Recent Head Trauma: occasional headaches Modifying Factors: Improves With: exposure to light. Worsens With: movement Associated Symptoms: dizziness, nausea/vomiting, sensitive to light, No fever/chills, No light-headedness, No loss of consciousness, No nasal drainage, No neck pain, No numbness in legs/feet, No sweating, No sinus infection, No speech problems, No visual disturbance Previous symptoms: same symptoms as today (Similar to today however patient states today's migraine is somewhat worse than usual.) Allergies/Adverse Reactions: sumatriptan [From Imitrex] Allergy (Intermediate, Verified 07/04/21 00:00) Rash codeine Allergy (Mild, Verified 07/04/21 00:00) Rash MAKES SICK nitrofurantoin [From Macrobid] Allergy (Unknown, Verified 07/04/21 00:00) sumatriptan succinate [From Imitrex] Allergy (Verified 07/04/21 00:00) morphine Adverse Reaction (Severe, Verified 07/04/21 00:00) Headache MIGRAINES fentanyl Adverse Reaction (Intermediate, Verified 07/04/21 00:00) Headache hydrocodone bitartrate [From Vicodin] Adverse Reaction (Mild, Verified 07/04/21 00:00) Vomiting hydromorphone [From Dilaudid] Adverse Reaction (Mild, Verified 07/04/21 00:00) pt states makes heache worse. Home Medications: ALPRAZolam 1 MG [Xanax 1 mg] 1 mg PO TID 02/17/13 [History] Polyethylene Glycol 3350 17 gm [Miralax Powder 17GM PACKET] 34 gm PO BID 11/15/14 [History] Sennosides/Docusate Sodium [Senokot-S Tablet] 1 tab PO DAILY 04/25/15 [History] Promethazine HCl 25 mg [Phenergan 25 mg] 25 mg PO Q4HPRN PRN 05/11/15 [History] Cetirizine HCl/Pseudoephedrine [Zyrtec-D Tablet] 1 each PO DAILY 02/03/16 [History] Aspirin 81 mg PO DAILY 09/11/16 [History] Levothyroxine Sodium 50 Mcg [Synthroid 50 Mcg] 50 mcg PO DAILY 07/06/17 [History] Linaclotide [Linzess] 290 mcg PO DAILY 10/07/17 [History] Rizatriptan Benzoate [Maxalt] 10 mg PO BID PRN PRN 06/23/18 [History] Fluticasone Propionate [Flonase NASAL] 2 spray NS DAILY 01/19/19 [History] Guaifenesin 600 mg ER [Mucinex 600MG ER Tabs] 600 mg PO DAILY 04/05/19 [History] Dexlansoprazole [Dexilant] 60 mg PO DAILY 01/21/20 [History] Prucalopride Succinate [Motegrity] 2 mg PO DAILY 01/21/20 [History] Fluticasone/Umeclidin/Vilanter [Trelegy Ellipta 100-62.5-25] 200 units IH DAILY 03/01/20 [History] Albuterol 2.5 mg/3 ml Neb [Proventil 2.5 mg/3 ml Neb] 2.5 mg IH QID 07/23/20 [History] Pantoprazole 20 mg [Protonix 20MG Tablet] 20 mg PO DAILY 04/24/21 [History] Hx Tetanus, Diphtheria Vaccination/Date Given: Yes Hx Influenza Vaccination/Date Given: Yes Hx Pneumococcal Vaccination/Date Given: No Travel Risk - International Travel Have you traveled outside of the country in past 3 weeks: No - Coronavirus Screening Are you exhibiting any of the following symptoms?: No Close contact with a COVID-19 positive Pt in past 14-21 Days: No - Vaccine Status Have you recieved a 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: 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[employer] - Vaccination Dates Date of 2cond Vaccination (if applicable): 2020 - Review of Systems Constitutional: No Symptoms, No Fever, No Chills Eyes: No Symptoms Ears, Nose, & Throat: No Symptoms Respiratory: No Symptoms, No Cough, No Dyspnea Cardiac: No Symptoms, No Chest Pain, No Edema, No Syncope Abdominal/Gastrointestinal: No Symptoms, No Abdominal Pain, No Nausea, No Vomiting, No Diarrhea Genitourinary Symptoms: No Symptoms, No Dysuria Musculoskeletal: No Symptoms, No Back Pain, No Neck Pain Skin: No Symptoms, No Rash Neurological: No Symptoms, No Dizziness, No Focal Weakness, No Sensory Changes Psychological: No Symptoms Endocrine: No Symptoms Hematologic/Lymphatic: No Symptoms Immunological/Allergic: No Symptoms All Other Systems: Reviewed and Negative - Past Medical History Pertinent Past Medical History: Yes Neurological History: Migraines ENT History: Cataracts Cardiac History: No Pertinent History Respiratory History: Bronchitis, COPD, Pulmonary Embolism Endocrine Medical History: Hypothyroidism Musculoskeletal History: Osteoarthritis GI Medical History: GERD, Other History: Other Psycho-Social History: Anxiety, Panic Disorder Female Reproductive Disorders: No Pertinent History Other Medical History: frequent uti's, chronic pseudo obstruction, blood clot - Past Surgical History Past Surgical History: Yes Neuro Surgical History: No Pertinent History Cardiac: No Pertinent History Respiratory: No Pertinent History Gastrointestinal: Cholecystectomy, Other Genitourinary: No Pertinent History Musculoskeletal: No Pertinent History Female Surgical History: No Pertinent History Other Surgical History: all of large intestine removed - Social History Smoking Status: Never smoker Exposure to second hand smoke: No Alcohol Use: None Drug Use: none Patient Lives Alone: No Significant Family History: no pertinent family hx - Nursing Vital Signs Nursing Vital Signs: Initial Vital Signs Temperature 97.0 F 07/10/21 07:47 Pulse Rate 72 07/10/21 07:47 Respiratory Rate 16 07/10/21 07:47 Blood Pressure 108/63 07/10/21 07:47 O2 Sat by Pulse Oximetry 96 07/10/21 07:47 Pain Scale Pain Intensity 10 - Physical Exam General Appearance: no apparent distress Eye Exam: PERRL/EOMI Ears, Nose, Throat Exam: normal ENT inspection, TMs normal, pharynx normal, moist mucous membranes Neck Exam: normal inspection, non-tender, supple, full range of motion, No meningismus Respiratory Exam: normal breath sounds, lungs clear, airway intact, No chest tenderness, No respiratory distress Cardiovascular Exam: regular rate/rhythm, normal heart sounds, normal peripheral pulses Gastrointestinal/Abdominal Exam: soft, normal bowel sounds, No tenderness, No distention, No mass, No guarding Back Exam: normal inspection, normal range of motion, No CVA tenderness Extremity Exam: normal inspection, normal range of motion, pelvis stable 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, 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, 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 Exam: normal speech, PERRL, No facial droop Coordination/Gait Exam: normal finger to nose (RN reports that patient appeared somewhat unsteady when transferring from EMS stretcher to ED treatment room bed) Motor/Sensory Exam: no motor deficit, no sensory deficit Skin Exam: normal color, warm, dry, No rash Lymphatic Exam: No adenopathy SpO2 Interpretation: normal SpO2: 96 O2 Delivery: Room Air - Course Nursing assessment & vital signs reviewed: Yes - CT Exams Head CT Interpretation: Tele-radiologist Report (Continued normal CT head without contrast.) Ordered Tests: Active Orders 24 hr Category Date Time Status Front End Software Developer STAT Care 07/10/21 08:01 Active IV Insertion STAT Care 07/10/21 08:00 Active Pulse Oximetry (ED) STAT Care 07/10/21 08:00 Active HEAD WITHOUT CONTRAST [CT] Stat Exams 07/10/21 08:25 Completed Medication Summary Discontinued Medications Generic Name Dose Route Start Last Admin Trade Name Freq PRN Reason Stop Dose Admin Diphenhydramine HCl 25 mg 07/10/21 08:02 07/10/21 08:50 Diphenhydramine Hcl 50 Mg/Ml Vial IV 07/10/21 08:03 25 mg STAT ONE Administration Diphenhydramine HCl Confirm 07/10/21 08:09 Diphenhydramine Hcl 50 Mg/Ml Vial Administered 07/10/21 08:10 Dose 50 mg .ROUTE .STK-MED ONE Sodium Chloride 1,000 mls @ 999 mls/hr 07/10/21 08:00 07/10/21 10:25 Sodium Chloride 0.9% 1000 Ml IV 07/10/21 09:00 Infused .Q1H1M STA Infusion Sodium Chloride Confirm 07/10/21 08:09 Sodium Chloride 0.9% 1000 Ml Administered 07/10/21 08:10 Dose 1,000 mls @ ud .ROUTE .STK-MED ONE Ketorolac Tromethamine 30 mg 07/10/21 08:01 07/10/21 08:49 Ketorolac Tromethamine 30 Mg/Ml Inj IV 07/10/21 08:02 30 mg STAT ONE Administration Ketorolac Tromethamine Confirm 07/10/21 08:09 Ketorolac Tromethamine 30 Mg/Ml Inj Administered 07/10/21 08:10 Dose 30 mg .ROUTE .STK-MED ONE Prochlorperazine Edisylate 10 mg 07/10/21 08:01 07/10/21 08:49 Prochlorperazine Edisylate 10 Mg/2 Ml Vial IV 07/10/21 08:02 10 mg STAT ONE Administration Prochlorperazine Edisylate Confirm 07/10/21 08:09 Prochlorperazine Edisylate 10 Mg/2 Ml Vial Administered 07/10/21 08:10 Dose 10 mg .ROUTE .STK-MED ONE - Progress Progress: improved Air Movement: good Progress Note: Patient reassessed. She feels well. Headache essentially resolved. Repeat neuro exam within normal limits. Patient is ambulatory with a normal gait. Her gait is not unsteady as it was when she first came into our ED. CT head essentially nonremarkable. Vitals stable. Patient states he is ready for discharge. She voices no other complaints or concerns at this time. Portions of this note were created with voice recognition technology. There may be grammatical, spelling, punctuation or sound alike errors 07/10/21 10:34 Blood Culture(s) Obtained: No Antibiotics given: No Counseled pt/family regarding: diagnosis, need for follow-up, rad results - Departure Departure Disposition: Home Clinical Impression: Migraine Condition: Stable Critical Care Time: No Referrals: LLUVIA CHILDERS, [Primary Care Provider] - Follow up/PCP as directed Additional Instructions: Please follow-up with your primary care doctor within 48 hours for reevaluation. Discharge/Care Plan GEOVANNY FREY was seen on 07/10/21 in the Emergency Room. The patient was counseled regarding Diagnosis,Lab results, Imaging studies, need for follow up and when to return to the Emergency Room. Prescriptions given: Discharge Note I have spoken with the patient and/or caregivers. I have explained the patient's condition, diagnosis and treatment plan based on the information available to me at this time. I have answered the patient's and/or caregiver's questions and addressed any concerns. The patient and/or caregivers have as good understanding of the patient's diagnosis, condition and treatment plan as can be expected at this point. The vital signs have been stable. The patient's condition is stable and appropriate for discharge from the emergency department. The patient will pursue further outpatient evaluation with the primary care physician or other designated or consulting physician as outlined in the discharge instructions. The patient and/or caregivers are agreeable to this plan of care and follow-up instructions have been explained in detail. The patient and/or caregivers have received these instruction. The patient/and or caregivers are aware that any significant change in condition or worsening of symptoms should prompt an immediate return to this or the closest emergency department or call 911.
--- NOTE | 2021-07-10 08:42 | XRAY ---
Indication: Headache. Intracranial hemorrhage. Multiple contiguous axial images obtained through the head without contrast. Comparison: September 29, 2019. Continued normal appearing brain parenchyma, ventricles, and bony calvarium for patient's age. Visualized paranasal sinuses and mastoid air cells remain clear. Impression: Continued normal CT head without contrast exam.
[2021-07-10 09:24] VITALS: O2SAT 96
[2021-07-10 11:25] VITALS: BP 120/60; PULSE 82
== END 2021-07-10 11:29 | disposition home or self-care (01) ==
LOC: ED 07:45
DX: G43.909 Migraine, unspecified, not intractable, without status migrainosus (principal); R11.2 Nausea with vomiting, unspecified; R42 Dizziness and giddiness; J44.9 Chronic obstructive pulmonary disease, unspecified; Z79.899 Other long term (current) drug therapy
CPT/HCPCS: 36000; 70450; 93041; 94760; 96360; 96374; 99285; J1200; J1642; J1885

== ENCOUNTER 2021-10-02 12:49 | Emergency (ER) | payer MEDICARE ==
[2021-10-02] MEDS ORDERED: XYLOCAINE 1% HCL 20 ML MDV IJ ONE (12:50)
[2021-10-02 13:16] LABS: Bacteria FEW /HPF (NEGATIVE); Epithelial Cells FEW /HPF (FEW); Mucus SLIGHT /HPF (NEGATIVE); WBC >100 /HPF (0-5)
[2021-10-02 13:18] LABS: Appearance CLEAR (CLEAR); Bilirubin NEGATIVE (NEGATIVE); Glucose NEGATIVE (NEGATIVE); Ketones NEGATIVE (NEGATIVE); Nitrite NEGATIVE (NEGATIVE); Ph 5.5 (5-6); Protein,Urine Dip NEGATIVE (Negative); RBC TRACE-INTACT Ery/ul (0-5); Specific Gravity >=1.030 (1.005-1.025); Urobilinogen 0.2 mg/dL (0-1)
[2021-10-02 13:19] LABS: Dipstick done @ ? MAIN LAB
[2021-10-02 13:20] LABS: Urine Cultured Indicated? YES
[2021-10-02] MEDS ORDERED: Rocephin 1000 MG INJ IM ONE (13:44)
[2021-10-02] MEDS ORDERED: Rocephin 1000 MG INJ ONE (13:45)
[2021-10-02] MEDS ORDERED: NORCO 5/325 MG PO ONE (13:59)
[2021-10-02] MEDS ORDERED: NORCO 5/325 MG ONE (14:03)
--- NOTE | 2021-10-02 14:06 | ERPHSYRPT ---
- History of Present Illness Time Seen by Provider: 10/02/21 12:51 Source: patient Exam Limitations: no limitations Patient Subjective Stated Complaint: UTI symptoms Triage Nursing Assessment: Patient ambulated back to ED and transferred self to bed. Patient A+O X3. Patient's skin pink, warm and dry. Patient complains of pressure, burning, frequency and urgency when urinating since Wednesday. Patient complains of pain when urinating 06/24. Physician History: 66 years old female with multiple medical problems including recurrent UTI presented in the ER with 4-day history of progressively increasing urinary frequency, burning/pressure, constant desire to urinate and sense of incomplete voiding. Patient reports having razor blade pain at times with urination. No fever or chills reported. Denies any abdominal/flank pain. Timing/Duration: day(s) (4), gradual onset, worse Activites at Onset: none Quality: burning, dullness, pressure Onset Location: urethral Pain Radiation: none Severity of Pain-Max: moderate Severity of Pain-Current: moderate Sexual intercourse history: non-contributory Modifying Factors: Worsens With: urinating Associated Symptoms: dysuria, urinary frequency Allergies/Adverse Reactions: sumatriptan [From Imitrex] Allergy (Intermediate, Verified 10/02/21 13:00) Rash codeine Allergy (Mild, Verified 10/02/21 13:00) Rash MAKES SICK nitrofurantoin [From Macrobid] Allergy (Unknown, Verified 10/02/21 13:00) sumatriptan succinate [From Imitrex] Allergy (Verified 10/02/21 13:00) morphine Adverse Reaction (Severe, Verified 10/02/21 13:00) Headache MIGRAINES fentanyl Adverse Reaction (Intermediate, Verified 10/02/21 13:00) Headache hydrocodone bitartrate [From Vicodin] Adverse Reaction (Mild, Verified 10/02/21 13:00) Vomiting hydromorphone [From Dilaudid] Adverse Reaction (Mild, Verified 10/02/21 13:00) pt states makes heache worse. Home Medications: ALPRAZolam 1 MG [Xanax 1 mg] 1 mg PO TID 02/17/13 [History] Polyethylene Glycol 3350 17 gm [Miralax Powder 17GM PACKET] 34 gm PO BID 10/01/15 [History] Sennosides/Docusate Sodium [Senokot-S Tablet] 1 tab PO DAILY 04/25/15 [History] Promethazine HCl 25 mg [Phenergan 25 mg] 25 mg PO Q4HPRN PRN 05/11/15 [History] Cetirizine HCl/Pseudoephedrine [Zyrtec-D Tablet] 1 each PO DAILY 02/03/16 [History] Aspirin 81 mg PO DAILY 09/11/16 [History] Levothyroxine Sodium 50 Mcg [Synthroid 50 Mcg] 50 mcg PO DAILY 07/06/17 [History] Linaclotide [Linzess] 290 mcg PO DAILY 10/07/17 [History] Rizatriptan Benzoate [Maxalt] 10 mg PO BID PRN PRN 06/23/18 [History] Fluticasone Propionate [Flonase NASAL] 2 spray NS DAILY 01/19/19 [History] Guaifenesin 600 mg ER [Mucinex 600MG ER Tabs] 600 mg PO DAILY 04/05/19 [History] Dexlansoprazole [Dexilant] 60 mg PO DAILY 01/21/20 [History] Prucalopride Succinate [Motegrity] 2 mg PO DAILY 01/21/20 [History] Fluticasone/Umeclidin/Vilanter [Trelegy Ellipta 100-62.5-25] 200 units IH DAILY 03/01/20 [History] Albuterol 2.5 mg/3 ml Neb [Proventil 2.5 mg/3 ml Neb] 2.5 mg IH QID 07/23/20 [History] Pantoprazole 20 mg [Protonix 20MG Tablet] 20 mg PO DAILY 04/24/21 [History] Magnesium Oxide 400 mg [Mag-Ox 400] 400 mg PO DAILY 09/29/21 [History] dilTIAZem HCl [Diltiazem 24Hr ER (Cd)] 120 mg PO DAILY 09/29/21 [History] Hx Tetanus, Diphtheria Vaccination/Date Given: Yes Hx Influenza Vaccination/Date Given: Yes Hx Pneumococcal Vaccination/Date Given: No Travel Risk - International Travel Have you traveled outside of the country in past 3 weeks: No - Coronavirus Screening Are you exhibiting any of the following symptoms?: No Close contact with a COVID-19 positive Pt in past 14-21 Days: No - Vaccine Status Have you recieved a 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: Yes [employer]: [employer] - Vaccination Dates Date of 2cond Vaccination (if applicable): 2020 - Review of Systems Constitutional: No Symptoms Ears, Nose, & Throat: No Symptoms Respiratory: No Symptoms Cardiac: No Symptoms Abdominal/Gastrointestinal: Abdominal Pain Genitourinary Symptoms: Dysuria, Frequency Musculoskeletal: No Symptoms Skin: No Symptoms Neurological: No Symptoms Psychological: No Symptoms Endocrine: No Symptoms Hematologic/Lymphatic: No Symptoms - Past Medical History Pertinent Past Medical History: Yes Neurological History: Migraines ENT History: Cataracts Cardiac History: No Pertinent History Respiratory History: Bronchitis, COPD, Pulmonary Embolism Endocrine Medical History: Hypothyroidism Musculoskeletal History: Osteoarthritis GI Medical History: GERD, Other History: Other Psycho-Social History: Anxiety, Panic Disorder Female Reproductive Disorders: No Pertinent History Other Medical History: frequent uti's, chronic pseudo obstruction, blood clot - Past Surgical History Past Surgical History: Yes Neuro Surgical History: No Pertinent History Cardiac: No Pertinent History Respiratory: No Pertinent History Gastrointestinal: Cholecystectomy, Other Genitourinary: No Pertinent History Musculoskeletal: No Pertinent History Female Surgical History: No Pertinent History Other Surgical History: all of large intestine removed - Social History Smoking Status: Never smoker Exposure to second hand smoke: No Alcohol Use: None Drug Use: none Patient Lives Alone: Yes Significant Family History: no pertinent family hx - Nursing Vital Signs Nursing Vital Signs: Initial Vital Signs Temperature 98.4 F 10/02/21 13:07 Pulse Rate 112 H 10/02/21 13:07 Respiratory Rate 18 10/02/21 13:07 Blood Pressure 102/89 10/02/21 13:07 O2 Sat by Pulse Oximetry 98 10/02/21 13:07 Pain Scale Pain Intensity 5 - Physical Exam General Appearance: no apparent distress, alert Neck Exam: normal inspection, full range of motion Respiratory Exam: normal breath sounds, lungs clear Cardiovascular Exam: normal heart sounds, tachycardia Gastrointestinal/Abdomen Exam: soft, normal bowel sounds, No tenderness Back Exam: normal inspection, normal range of motion, No CVA tenderness Extremity Exam: normal inspection, normal range of motion Neurologic Exam: alert, 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, cooperative Skin Exam: normal color SpO2 Interpretation: normal SpO2: 98 O2 Delivery: Room Air Ordered Tests: Active Orders 24 hr Category Date Time Status CULTURE,URINE Stat Lab 10/02/21 13:03 Received UA W/RFX CULTURE Stat Lab 10/02/21 13:03 Completed Medication Summary Discontinued Medications Generic Name Dose Route Start Last Admin Trade Name Elton PRN Reason Stop Dose Admin Hydrocodone Bitart/Acetaminophen 1 tab 10/02/21 13:59 10/02/21 14:05 Hydrocodone/Apap 5/325 Mg Tablet PO 10/02/21 14:00 1 tab SENT HOME W/ PATIENT ONE Administration Hydrocodone Bitart/Acetaminophen Confirm 10/02/21 14:03 Hydrocodone/Apap 5/325 Mg Tablet Administered 10/02/21 14:04 Dose 1 tab .ROUTE .STK-MED ONE Ceftriaxone Sodium 1,000 mg 10/02/21 13:44 10/02/21 13:49 Ceftriaxone Sodium 1000 Mg Inj Vial IM 10/02/21 13:45 1,000 mg STAT ONE Administration Ceftriaxone Sodium Confirm 10/02/21 13:45 Ceftriaxone Sodium 1000 Mg Inj Vial Administered 10/02/21 13:46 Dose 1,000 mg .ROUTE .STK-MED ONE Lab/Rad Data: Laboratory Results 10/02/21 Range/Units 13:03 Urinalys Dipstick Clnc MAIN LAB Urine Color YELLOW (YELLOW) Urine Appearance CLEAR (CLEAR) Urine pH 5.5 (5-6) Ur Specific [place] >=1.030 (1.005-1.025) POC Urine Protein Conf NEGATIVE (Negative) Urine Ketones NEGATIVE (NEGATIVE) Urine Nitrite NEGATIVE (NEGATIVE) Urine Bilirubin NEGATIVE (NEGATIVE) Urine Urobilinogen 0.2 (0-1) mg/dL Urine Leukocytes MODERATE (NEGATIVE) Urine WBC (Auto) >100 (0-5) /HPF Urine RBC (Auto) 6-10 (0-2) /HPF U Hyaline Cast (Auto) 6-10 (0-2) /LPF U Epithel Cells (Auto) FEW (FEW) /HPF Urine Bacteria (Auto) FEW (NEGATIVE) /HPF Urine RBC TRACE-INTACT (0-5) Aroldo/ul Unidentified Crystals 2-5 (NEGATIVE) /HPF Other Casts (Auto) 25-50 (NEGATIVE) /LPF Urine Mucus (Auto) SLIGHT (NEGATIVE) /HPF Ur Culture Indicated? YES Urine Glucose NEGATIVE (NEGATIVE) mg/dL - Progress Progress: unchanged Air Movement: good Progress Note: 10/02/21 14:05 66-year-old is evaluated for UTI symptoms. She does have a urinary tract infection, given Rocephin shot in here and will continue with cefpodoxime to go home. We will give symptomatic treatment for pain as well. Outpatient follow- up recommended. Blood Culture(s) Obtained: No Antibiotics given: Yes Counseled pt/family regarding: lab results, diagnosis, need for follow-up - Departure Departure Disposition: Home Clinical Impression: Acute UTI Condition: Stable Critical Care Time: No Referrals: LLUVIA CHILDERS DO [Primary Care Provider] - Follow up/PCP as directed (1-2 days for reevaluation) Instructions: Urinary Tract Infection, Adult (DC) Additional Instructions: Take pain medications as needed. Follow-up with primary care for reevaluation. Return to ER for worsening difficulty urination or if develop fever chills/nausea vomiting etc. Prescriptions: Hydrocodone/Acetaminophen [Hydrocodone-Acetamin 5-325 mg] 1 tab PO Q6HPRN PRN 3 Days #7 tablet MDD 4 PRN Reason: Pain Cefpodoxime Proxetil 100 mg PO BID 7 Days #14 tablet
[2021-10-02 14:09] VITALS: BP 102/88; PULSE 99
[2021-10-02 14:15] VITALS: O2SAT 98
== END 2021-10-02 14:30 | disposition home or self-care (01) ==
LOC: ED 12:49
DX: N39.0 Urinary tract infection, site not specified (principal); R53.0 Neoplastic (malignant) related fatigue; R30.0 Dysuria; J44.9 Chronic obstructive pulmonary disease, unspecified; Z79.899 Other long term (current) drug therapy; Z79.891 Long term (current) use of opiate analgesic
CPT/HCPCS: 81015; 87077; 87086; 87186; 96372; 99283; J0696; A9270-GY

== ENCOUNTER 2021-10-13 21:16 | Emergency (ER) | payer MEDICARE ==
[2021-10-13 21:48] LABS: Appearance CLOUDY (CLEAR); Bilirubin NEGATIVE (NEGATIVE); Dipstick done @ ? MAIN LAB; Glucose NEGATIVE (NEGATIVE); Ketones NEGATIVE (NEGATIVE); Nitrite NEGATIVE (NEGATIVE); Ph 5.5 (5-6); Protein,Urine Dip 30 (Negative); RBC NEGATIVE Ery/ul (0-5); Specific Gravity >=1.030 (1.005-1.025); Urobilinogen 0.2 mg/dL (0-1)
[2021-10-13 21:52] LABS: Bacteria FEW /HPF (NEGATIVE); Epithelial Cells FEW /HPF (FEW); Mucus SLIGHT /HPF (NEGATIVE); RBC 51-100 /HPF (0-2); Urine Cultured Indicated? YES; WBC 51-100 /HPF (0-5)
[2021-10-13] MEDS ORDERED: Levofloxacin 500 MG Tablet PO ONE (23:09)
--- NOTE | 2021-10-13 23:09 | ERPHSYRPT ---
- History of Present Illness Time Seen by Provider: 10/13/21 22:00 Source: patient Exam Limitations: no limitations Patient Subjective Stated Complaint: pt states "I was here on the for a UTI and they gave me a medicine but it isnt working." Triage Nursing Assessment: Pt ambulatory to bed by self, pt alert and oriented x3, pt c/o of uti since 10/02/2021 and was prescriped cefpodonxime proxetil and pt states "It is not helping", Dr. cade prescribed levoquin for after she finished this antibiotic if it does not work Physician History: This is a 66-year-old white female who is here often for recurrent urinary tract infections. She was here on 10/02/2021 and was prescribed an antibiotic which she is currently taking. However, she was seen by Dr. Hidalgo and Dr. Hidalgo's office and a Levaquin prescription was called and for this patient in the event this current antibiotic is ineffective. Patient is here today because she thinks that that antibiotic that was prescribed here on 10/02/2021 is not working. Patient has no shortness of breath. She has no chest pain. She has no significant abdominal pain. Timing/Duration: day(s) (Several days), worse Activites at Onset: none Onset Location: generalized flank, abdominal pain (Mild suprapubic tenderness to palpation) Pain Radiation: none Severity of Pain-Max: mild Severity of Pain-Current: mild Associated Symptoms: abdominal pain (Mild suprapubic tenderness to palpation), lower back pain (Mild) Allergies/Adverse Reactions: sumatriptan [From Imitrex] Allergy (Intermediate, Verified 10/02/21 13:00) Rash codeine Allergy (Mild, Verified 10/02/21 13:00) Rash MAKES SICK nitrofurantoin [From Macrobid] Allergy (Unknown, Verified 10/02/21 13:00) sumatriptan succinate [From Imitrex] Allergy (Verified 10/02/21 13:00) morphine Adverse Reaction (Severe, Verified 10/02/21 13:00) Headache MIGRAINES fentanyl Adverse Reaction (Intermediate, Verified 10/02/21 13:00) Headache hydrocodone bitartrate [From Vicodin] Adverse Reaction (Mild, Verified 10/02/21 13:00) Vomiting hydromorphone [From Dilaudid] Adverse Reaction (Mild, Verified 10/02/21 13:00) pt states makes heache worse. Home Medications: ALPRAZolam 1 MG [Xanax 1 mg] 1 mg PO TID 02/17/13 [History] Polyethylene Glycol 3350 17 gm [Miralax Powder 17GM PACKET] 34 gm PO BID 11/15/14 [History] Sennosides/Docusate Sodium [Senokot-S Tablet] 1 tab PO DAILY 04/25/15 [History] Promethazine HCl 25 mg [Phenergan 25 mg] 25 mg PO Q4HPRN PRN 05/11/15 [History] Cetirizine HCl/Pseudoephedrine [Zyrtec-D Tablet] 1 each PO DAILY 02/03/16 [History] Aspirin 81 mg PO DAILY 09/11/16 [History] Levothyroxine Sodium 50 Mcg [Synthroid 50 Mcg] 50 mcg PO DAILY 07/06/17 [History] Linaclotide [Linzess] 290 mcg PO DAILY 10/07/17 [History] Rizatriptan Benzoate [Maxalt] 10 mg PO BID PRN PRN 06/23/18 [History] Fluticasone Propionate [Flonase NASAL] 2 spray NS DAILY 01/19/19 [History] Guaifenesin 600 mg ER [Mucinex 600MG ER Tabs] 600 mg PO DAILY 04/05/19 [History] Dexlansoprazole [Dexilant] 60 mg PO DAILY 01/21/20 [History] Prucalopride Succinate [Motegrity] 2 mg PO DAILY 01/21/20 [History] Fluticasone/Umeclidin/Vilanter [Trelegy Ellipta 100-62.5-25] 200 units IH DAILY 03/01/20 [History] Albuterol 2.5 mg/3 ml Neb [Proventil 2.5 mg/3 ml Neb] 2.5 mg IH QID 07/23/20 [History] Pantoprazole 20 mg [Protonix 20MG Tablet] 20 mg PO DAILY 04/24/21 [History] Magnesium Oxide 400 mg [Mag-Ox 400] 400 mg PO DAILY 09/29/21 [History] dilTIAZem HCl [Diltiazem 24Hr ER (Cd)] 120 mg PO DAILY 09/29/21 [History] Hx Tetanus, Diphtheria Vaccination/Date Given: Yes Hx Influenza Vaccination/Date Given: Yes Hx Pneumococcal Vaccination/Date Given: No Travel Risk - International Travel Have you traveled outside of the country in past 3 weeks: No - Coronavirus Screening Are you exhibiting any of the following symptoms?: No Close contact with a COVID-19 positive Pt in past 14-21 Days: No - Vaccine Status Have you recieved a 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: Yes [employer]: [employer] - Vaccination Dates Date of 2cond Vaccination (if applicable): 2020 - Review of Systems Constitutional: No Symptoms Eyes: No Symptoms Ears, Nose, & Throat: No Symptoms Respiratory: No Symptoms Cardiac: No Symptoms Abdominal/Gastrointestinal: Abdominal Pain (Mild suprapubic tenderness to palpation) Genitourinary Symptoms: Dysuria Musculoskeletal: No Symptoms Skin: No Symptoms Neurological: No Symptoms Psychological: No Symptoms Endocrine: No Symptoms Hematologic/Lymphatic: No Symptoms Immunological/Allergic: No Symptoms All Other Systems: Reviewed and Negative - Past Medical History Pertinent Past Medical History: Yes Neurological History: Migraines ENT History: Cataracts Cardiac History: No Pertinent History Respiratory History: Bronchitis, COPD, Pulmonary Embolism Endocrine Medical History: Hypothyroidism Musculoskeletal History: Osteoarthritis GI Medical History: GERD, Other History: Other Psycho-Social History: Anxiety, Panic Disorder Female Reproductive Disorders: No Pertinent History Other Medical History: frequent uti's, chronic pseudo obstruction, blood clot - Past Surgical History Past Surgical History: Yes Neuro Surgical History: No Pertinent History Cardiac: No Pertinent History Respiratory: No Pertinent History Gastrointestinal: Cholecystectomy, Other Genitourinary: No Pertinent History Musculoskeletal: No Pertinent History Female Surgical History: No Pertinent History Other Surgical History: all of large intestine removed - Social History Smoking Status: Never smoker Exposure to second hand smoke: No Alcohol Use: None Drug Use: none Patient Lives Alone: Yes Significant Family History: no pertinent family hx - Nursing Vital Signs Nursing Vital Signs: Initial Vital Signs Pulse Rate 112 H 10/13/21 21:32 Respiratory Rate 18 10/13/21 21:32 Blood Pressure 108/68 10/13/21 21:32 O2 Sat by Pulse Oximetry 97 10/13/21 21:32 Pain Scale Pain Intensity 10 - Physical Exam General Appearance: no apparent distress, alert, anxiety Eye Exam: PERRL/EOMI, eyes nml inspection Ears, Nose, Throat Exam: normal ENT inspection, moist mucous membranes Neck Exam: normal inspection, non-tender, supple, full range of motion Respiratory Exam: normal breath sounds, lungs clear, No chest tenderness, No respiratory distress Cardiovascular Exam: tachycardia (Mild) Gastrointestinal/Abdomen Exam: soft, normal bowel sounds, tenderness (Mild suprapubic tenderness to palpation), No guarding, No rebound Pelvic Exam: not done Rectal Exam: not done Back Exam: normal inspection, normal range of motion, No CVA tenderness, No vertebral tenderness Extremity Exam: normal inspection, normal range of motion, pelvis stable Neurologic Exam: alert, 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, cooperative, central office supervisor II-XII nml as tested, normal mood/affect, nml cerebellar function, nml station & gait, sensation nml Skin Exam: normal color, warm, dry Lymphatic Exam: No adenopathy SpO2 Interpretation: normal SpO2: 97 O2 Delivery: Room Air - Course Nursing assessment & vital signs reviewed: Yes Ordered Tests: Active Orders 24 hr Category Date Time Status CULTURE,URINE Stat Lab 10/13/21 21:25 Received UA W/RFX CULTURE Stat Lab 10/13/21 21:25 Completed Lab/Rad Data: Laboratory Results 10/13/21 Range/Units 21:25 Urinalys Dipstick Clnc MAIN LAB Urine Color YELLOW (YELLOW) Urine Appearance CLOUDY (CLEAR) Urine pH 5.5 (5-6) Ur Specific [place] >=1.030 (1.005-1.025) POC Urine Protein Conf 30 (Negative) Urine Ketones NEGATIVE (NEGATIVE) Urine Nitrite NEGATIVE (NEGATIVE) Urine Bilirubin NEGATIVE (NEGATIVE) Urine Urobilinogen 0.2 (0-1) mg/dL Urine Leukocytes TRACE (NEGATIVE) Urine WBC (Auto) 51-100 (0-5) /HPF Urine RBC (Auto) 51-100 (0-2) /HPF U Hyaline Cast (Auto) 11-25 (0-2) /LPF U Epithel Cells (Auto) FEW (FEW) /HPF Urine Bacteria (Auto) FEW (NEGATIVE) /HPF Urine RBC NEGATIVE (0-5) Aroldo/ul Urine Mucus (Auto) SLIGHT (NEGATIVE) /HPF Ur Culture Indicated? YES Urine Glucose NEGATIVE (NEGATIVE) mg/dL - Progress Progress: unchanged Air Movement: good Blood Culture(s) Obtained: No Antibiotics given: Yes Counseled pt/family regarding: lab results, diagnosis, need for follow-up - Departure Departure Disposition: Home Clinical Impression: Encounter for medical screening examination, UTI (urinary tract infection), Chronic urinary tract infection Condition: Stable Critical Care Time: No Referrals: LLUVIA CADE, [Primary Care Provider] - Follow up/PCP as directed Additional Instructions: Drink plenty of fluids. Stop your current antibiotic and begin using the Levaquin prescription Dr. Cade prescribed you. Follow-up in her office by phone tomorrow and make arrangements for further evaluation and management.
[2021-10-13] MEDS ORDERED: Levofloxacin 500 MG Tablet ONE (23:14)
[2021-10-13 23:16] VITALS: BP 121/70; PULSE 102; O2SAT 98
== END 2021-10-13 23:25 | disposition home or self-care (01) ==
LOC: ED 21:16
DX: N39.0 Urinary tract infection, site not specified (principal); R10.2 Pelvic and perineal pain; J44.9 Chronic obstructive pulmonary disease, unspecified; Z79.899 Other long term (current) drug therapy
CPT/HCPCS: 81015; 87086; 99283; A9270-GY

== ENCOUNTER 2021-10-18 15:01 | Emergency (ER) | payer MEDICARE ==
--- NOTE | 2021-10-18 15:06 | ERPHSYRPT ---
- History of Present Illness Time Seen by Provider: 10/18/21 15:06 Source: patient Exam Limitations: no limitations Physician History: This is a 66-year-old white female patient of Dr. Perry who has severe anxiety issues regarding her medical problems. Patient has been evaluated in some aspect 6 times and approximately 30 days and some aspect. Today, she has the complaint that she was exposed to COVID infection and now she has muscle aches and pains, sore throat and vomited 2 times today. Patient states that unexpectedly, her niece "showed up" at her home and stayed with the patient in her room for 4 days. It turns out, the patient was positive for COVID-19 infection. Patient's room air oxygenation saturation level is 97 to 99%. Her vital signs are stable. She is afebrile. Timing/Duration: today Activities at Onset: none Severity of Dyspnea-Max: none Severity of Dyspnea-Current: none Possible Cause: no prior episodes Associated Symptoms: anxiety, No cough, No chest pain/discomfort, No fever Allergies/Adverse Reactions: sumatriptan [From Imitrex] Allergy (Intermediate, Verified 10/18/21 16:18) Rash codeine Allergy (Mild, Verified 10/18/21 16:18) Rash MAKES SICK nitrofurantoin [From Macrobid] Allergy (Unknown, Verified 10/18/21 16:18) sumatriptan succinate [From Imitrex] Allergy (Verified 10/18/21 16:18) morphine Adverse Reaction (Severe, Verified 10/18/21 16:18) Headache MIGRAINES fentanyl Adverse Reaction (Intermediate, Verified 10/18/21 16:18) Headache hydrocodone bitartrate [From Vicodin] Adverse Reaction (Mild, Verified 10/18/21 16:18) Vomiting hydromorphone [From Dilaudid] Adverse Reaction (Mild, Verified 10/18/21 16:18) pt states makes heache worse. Home Medications: ALPRAZolam 1 MG [Xanax 1 mg] 1 mg PO TID 02/17/13 [History] Polyethylene Glycol 3350 17 gm [Miralax Powder 17GM PACKET] 34 gm PO BID 11/15/14 [History] Sennosides/Docusate Sodium [Senokot-S Tablet] 1 tab PO DAILY 04/25/15 [History] Promethazine HCl 25 mg [Phenergan 25 mg] 25 mg PO Q4HPRN PRN 05/11/15 [History] Cetirizine HCl/Pseudoephedrine [Zyrtec-D Tablet] 1 each PO DAILY 02/03/16 [History] Aspirin 81 mg PO DAILY 09/11/16 [History] Levothyroxine Sodium 50 Mcg [Synthroid 50 Mcg] 50 mcg PO DAILY 07/06/17 [History] Linaclotide [Linzess] 290 mcg PO DAILY 10/07/17 [History] Rizatriptan Benzoate [Maxalt] 10 mg PO BID PRN PRN 06/23/18 [History] Fluticasone Propionate [Flonase NASAL] 2 spray NS DAILY 01/19/19 [History] Guaifenesin 600 mg ER [Mucinex 600MG ER Tabs] 600 mg PO DAILY 04/05/19 [History] Dexlansoprazole [Dexilant] 60 mg PO DAILY 01/21/20 [History] Prucalopride Succinate [Motegrity] 2 mg PO DAILY 01/21/20 [History] Fluticasone/Umeclidin/Vilanter [Trelegy Ellipta 100-62.5-25] 200 units IH DAILY 03/01/20 [History] Albuterol 2.5 mg/3 ml Neb [Proventil 2.5 mg/3 ml Neb] 2.5 mg IH QID 07/23/20 [History] Pantoprazole 20 mg [Protonix 20MG Tablet] 20 mg PO DAILY 04/24/21 [History] Magnesium Oxide 400 mg [Mag-Ox 400] 400 mg PO DAILY 09/29/21 [History] dilTIAZem HCl [Diltiazem 24Hr ER (Cd)] 120 mg PO DAILY 09/29/21 [History] Hx Tetanus, Diphtheria Vaccination/Date Given: Yes Hx Influenza Vaccination/Date Given: Yes Hx Pneumococcal Vaccination/Date Given: No Travel Risk - International Travel Have you traveled outside of the country in past 3 weeks: No - Coronavirus Screening Are you exhibiting any of the following symptoms?: Yes Symptoms: Shortness of Breath, Vomiting/Diarrhea Close contact with a COVID-19 positive Pt in past 14-21 Days: Yes - Vaccine Status Have you recieved a 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: Yes 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: [employer] - Vaccination Dates Date of 2cond Vaccination (if applicable): 2020 - Review of Systems Constitutional: No Symptoms Eyes: No Symptoms Ears, Nose, & Throat: No Symptoms Respiratory: Dyspnea Cardiac: No Chest Pain Abdominal/Gastrointestinal: Nausea, Vomiting, No Abdominal Pain, No Diarrhea, No Constipation Genitourinary Symptoms: No Symptoms Musculoskeletal: No Symptoms Skin: No Symptoms Neurological: No Symptoms Psychological: No Symptoms Endocrine: No Symptoms Hematologic/Lymphatic: No Symptoms Immunological/Allergic: No Symptoms All Other Systems: Reviewed and Negative - Past Medical History Pertinent Past Medical History: Yes Neurological History: Migraines ENT History: Cataracts Cardiac History: No Pertinent History Respiratory History: Bronchitis, COPD, Pulmonary Embolism Endocrine Medical History: Hypothyroidism Musculoskeletal History: Osteoarthritis GI Medical History: GERD, Other History: Other Psycho-Social History: Anxiety, Panic Disorder Female Reproductive Disorders: No Pertinent History Other Medical History: frequent uti's, chronic pseudo obstruction, blood clot - Past Surgical History Past Surgical History: Yes Neuro Surgical History: No Pertinent History Cardiac: No Pertinent History Respiratory: No Pertinent History Gastrointestinal: Cholecystectomy, Other Genitourinary: No Pertinent History Musculoskeletal: No Pertinent History Female Surgical History: No Pertinent History Other Surgical History: all of large intestine removed - Social History Smoking Status: Never smoker Exposure to second hand smoke: No Alcohol Use: None Drug Use: none Patient Lives Alone: Yes Significant Family History: no pertinent family hx - Nursing Vital Signs Nursing Vital Signs: Initial Vital Signs Respiratory Rate 24 10/18/21 15:30 O2 Sat by Pulse Oximetry 95 10/18/21 15:30 Pain Scale Pain Intensity 5 - Physical Exam General Appearance: no apparent distress, alert, anxiety Eye Exam: PERRL/EOMI, eyes nml inspection Ears, Nose, Throat Exam: hearing grossly normal, normal ENT inspection Neck Exam: normal inspection, non-tender, supple, full range of motion Respiratory Exam: normal breath sounds, lungs clear, airway intact, No chest tenderness, No respiratory distress Cardiovascular/Chest Exam: normal heart sounds, regular rate/rhythm Abdominal/Gastrointestinal Exam: soft, normal bowel sounds, No tenderness Rectal Exam: not done Extremity Exam: non-tender, normal range of motion, normal inspection Neurologic Exam: alert, 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, cooperative, dock loader II-XII nml as tested, normal mood/affect, nml cerebellar function, nml station & gait, sensation nml Skin Exam: normal color, warm, dry Lymphatic Exam: No adenopathy SpO2 Interpretation: normal O2 Delivery: Room Air - Course Nursing assessment & vital signs reviewed: Yes EKG Interpreted by Me: RATE (97), Sinus Rhythm, Left [place] Deviation, NORMAL INTERVALS, NORMAL QRS, NORMAL ST-T, Other (No acute ischemic changes on today's EKG) Ordered Tests: Active Orders 24 hr Category Date Time Status IV Insertion STAT Care 10/18/21 16:18 Active CHEST 1 VIEW (PORTABLE) Stat Exams 10/18/21 16:07 Taken Lab/Rad Data: Laboratory Results 10/18/21 Range/Units 16:58 Influenza Type A Ag NEGATIVE (NEGATIVE) Influenza Type B Ag NEGATIVE (NEGATIVE) RSV (PCR) NEGATIVE (Negative) SARS-CoV-2 (PCR) NEGATIVE (NEGATIVE) - Departure Departure Disposition: Home Clinical Impression: Exposure to COVID-19 virus Condition: Stable Critical Care Time: No Referrals: LLUVIA PERRY DO [Primary Care Provider] - Follow up/PCP as directed Additional Instructions: Decrease your diet back to clear liquid diet. Take your medication as prescribed. Fill your prescription for Zofran. Follow-up with Dr. Hidalgo's office on 10/21/2021 for further evaluation and management. Use Zofran prescription if Phenergan prescription is ineffective. Prescriptions: Ondansetron ODT 4 MG [Zofran Odt 4 mg] 4 mg PO Q6H PRN PRN #10 tablet PRN Reason: Vomiting
[2021-10-18 17:11] VITALS: BP 121/77; PULSE 86; O2SAT 97
[2021-10-18 17:55] LABS: INFLUENZA A NEGATIVE (NEGATIVE); INFLUENZA B NEGATIVE (NEGATIVE); RESPIRATORY SYNCTIAL VIRUS NEGATIVE (Negative); SARS-CoV-2 Xpert Express NEGATIVE (NEGATIVE)
--- NOTE | 2021-10-18 22:04 | XRAY ---
Indication: Cough and short of breath. Comparison: May 14, 2021 Portable chest unchanged again with minimal right base subsegmental atelectasis/scarring, mediastinal/right hilar calcified nodes, and right Port-A-Cath. Remaining heart and lungs unremarkable. Bony thorax intact. No new/acute findings.
== END 2021-10-18 18:33 | disposition home or self-care (01) ==
LOC: ED 15:01
DX: Z20.822 Contact with and (suspected) exposure to COVID-19 (principal); J02.9 Acute pharyngitis, unspecified; M79.10 Myalgia, unspecified site; R11.10 Vomiting, unspecified; J44.9 Chronic obstructive pulmonary disease, unspecified; Z79.899 Other long term (current) drug therapy
CPT/HCPCS: 0241U; 36000; 71045; 99283

== ENCOUNTER 2021-11-13 10:06 | Emergency (ER) | payer MEDICARE ==
[2021-11-13 10:25] VITALS: BP 117/65
--- NOTE | 2021-11-13 11:08 | ERPHSYRPT ---
- History of Present Illness Time Seen by Provider: 11/13/21 10:17 Source: patient Exam Limitations: no limitations Patient Subjective Stated Complaint: Pt c/o of a UTI with severe pain for 3 days Triage Nursing Assessment: Pt brought self to the ER, tachycardic, rates pelvic pain as 10/10, noticed problems 3 days ago but got worse last night, started taking pyridium yesterday and Levaquin from what she had at home Physician History: 66 years old female with multiple medical problems, history of recurrent UTIs presented in the ER with increased burning and suprapubic discomfort for the last 2 to 3 days and got worse last night. She took Levaquin and Pyridium with no significant relief. Still having difficulty urination. No fever or chills reported. No abdominal pain nausea vomiting otherwise. Timing/Duration: yesterday, constant, gradual onset, worse Activites at Onset: none Quality: burning Onset Location: suprapubic, urethral Pain Radiation: suprapubic, urethral Severity of Pain-Max: severe Severity of Pain-Current: moderate Prior abdominal problems: UTI Sexual intercourse history: non-contributory Modifying Factors: Worsens With: urinating Associated Symptoms: dysuria, urinary frequency, No fever Allergies/Adverse Reactions: sumatriptan [From Imitrex] Allergy (Intermediate, Verified 11/13/21 10:25) Rash codeine Allergy (Mild, Verified 11/13/21 10:25) Rash MAKES SICK nitrofurantoin [From Macrobid] Allergy (Unknown, Verified 11/13/21 10:25) sumatriptan succinate [From Imitrex] Allergy (Verified 11/13/21 10:25) morphine Adverse Reaction (Severe, Verified 11/13/21 10:25) Headache MIGRAINES fentanyl Adverse Reaction (Intermediate, Verified 11/13/21 10:25) Headache hydrocodone bitartrate [From Vicodin] Adverse Reaction (Mild, Verified 11/13/21 10:25) Vomiting hydromorphone [From Dilaudid] Adverse Reaction (Mild, Verified 11/13/21 10:25) pt states makes heache worse. Home Medications: ALPRAZolam 1 MG [Xanax 1 mg] 1 mg PO TID 02/17/13 [History] Polyethylene Glycol 3350 17 gm [Miralax Powder 17GM PACKET] 34 gm PO BID 11/15/14 [History] Sennosides/Docusate Sodium [Senokot-S Tablet] 1 tab PO DAILY 04/25/15 [History] Promethazine HCl 25 mg [Phenergan 25 mg] 25 mg PO Q4HPRN PRN 05/11/15 [History] Cetirizine HCl/Pseudoephedrine [Zyrtec-D Tablet] 1 each PO DAILY 02/03/16 [History] Aspirin 81 mg PO DAILY 09/11/16 [History] Levothyroxine Sodium 50 Mcg [Synthroid 50 Mcg] 50 mcg PO DAILY 07/06/17 [History] Linaclotide [Linzess] 290 mcg PO DAILY 10/07/17 [History] Rizatriptan Benzoate [Maxalt] 10 mg PO BID PRN PRN 06/23/18 [History] Fluticasone Propionate [Flonase NASAL] 2 spray NS DAILY 01/19/19 [History] Guaifenesin 600 mg ER [Mucinex 600MG ER Tabs] 600 mg PO DAILY 04/05/19 [History] Dexlansoprazole [Dexilant] 60 mg PO DAILY 01/21/20 [History] Prucalopride Succinate [Motegrity] 2 mg PO DAILY 01/21/20 [History] Fluticasone/Umeclidin/Vilanter [Trelegy Ellipta 100-62.5-25] 200 units IH DAILY 03/01/20 [History] Albuterol 2.5 mg/3 ml Neb [Proventil 2.5 mg/3 ml Neb] 2.5 mg IH QID 07/23/20 [History] Pantoprazole 20 mg [Protonix 20MG Tablet] 20 mg PO DAILY 04/24/21 [History] Magnesium Oxide 400 mg [Mag-Ox 400] 400 mg PO DAILY 09/29/21 [History] dilTIAZem HCl [Diltiazem 24Hr ER (Cd)] 120 mg PO DAILY 09/29/21 [History] Hx Tetanus, Diphtheria Vaccination/Date Given: Yes Hx Influenza Vaccination/Date Given: Yes Hx Pneumococcal Vaccination/Date Given: No Travel Risk - International Travel Have you traveled outside of the country in past 3 weeks: No - Coronavirus Screening Are you exhibiting any of the following symptoms?: Yes Symptoms: Shortness of Breath - Vaccine Status Have you recieved a 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: 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[employer] - Vaccination Dates Date of 2cond Vaccination (if applicable): 2020 - Review of Systems Constitutional: No Symptoms Eyes: No Symptoms Ears, Nose, & Throat: No Symptoms Respiratory: Dyspnea Cardiac: No Symptoms Abdominal/Gastrointestinal: Abdominal Pain Genitourinary Symptoms: Dysuria, Frequency Musculoskeletal: No Symptoms Skin: No Symptoms Neurological: No Symptoms Psychological: Anxiety Endocrine: No Symptoms Hematologic/Lymphatic: No Symptoms Immunological/Allergic: No Symptoms - Past Medical History Pertinent Past Medical History: Yes Neurological History: Migraines ENT History: Cataracts Cardiac History: No Pertinent History Respiratory History: Bronchitis, COPD, Pulmonary Embolism Endocrine Medical History: Hypothyroidism Musculoskeletal History: Osteoarthritis GI Medical History: GERD, Other History: Other Psycho-Social History: Anxiety, Panic Disorder Female Reproductive Disorders: No Pertinent History Other Medical History: frequent uti's, chronic pseudo obstruction, blood clot - Past Surgical History Past Surgical History: Yes Neuro Surgical History: No Pertinent History Cardiac: No Pertinent History Respiratory: No Pertinent History Gastrointestinal: Cholecystectomy, Other Genitourinary: No Pertinent History Musculoskeletal: No Pertinent History Female Surgical History: No Pertinent History Other Surgical History: all of large intestine removed - Social History Smoking Status: Never smoker Exposure to second hand smoke: No Alcohol Use: None Drug Use: none Patient Lives Alone: Yes Significant Family History: no pertinent family hx - Nursing Vital Signs Nursing Vital Signs: Initial Vital Signs Temperature 98.1 F 11/13/21 10:13 Pulse Rate 111 H 11/13/21 10:13 Blood Pressure 117/65 11/13/21 10:13 O2 Sat by Pulse Oximetry 97 11/13/21 10:13 Pain Scale Pain Intensity 8 - Physical Exam General Appearance: no apparent distress, alert, anxiety Eye Exam: PERRL/EOMI Ears, Nose, Throat Exam: normal ENT inspection Neck Exam: normal inspection, full range of motion Respiratory Exam: normal breath sounds, lungs clear Cardiovascular Exam: normal heart sounds, tachycardia Gastrointestinal/Abdomen Exam: soft, normal bowel sounds, tenderness (Minimal suprapubic tenderness) Back Exam: normal range of motion, No CVA tenderness Extremity Exam: normal inspection, normal range of motion Neurologic Exam: alert, 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, cooperative Skin Exam: normal color SpO2 Interpretation: normal SpO2: 96 O2 Delivery: Room Air Ordered Tests: Medication Summary Discontinued Medications Generic Name Dose Route Start Last Admin Trade Name Elton PRN Reason Stop Dose Admin Ceftriaxone Sodium 1,000 mg 11/13/21 12:15 11/13/21 12:24 Ceftriaxone Sodium 1000 Mg Inj Vial IM 11/13/21 12:16 1,000 mg STAT ONE Administration Ceftriaxone Sodium Confirm 11/13/21 12:21 Ceftriaxone Sodium 1000 Mg Inj Vial Administered 11/13/21 12:22 Dose 1,000 mg .ROUTE .STK-MED ONE Lab/Rad Data: Laboratory Results 11/13/21 Range/Units 10:49 Urinalys Dipstick Clnc MAIN LAB Urine Color ORANGE (YELLOW) Urine Appearance SLIGHTLY HAZY (CLEAR) Urine pH 5.0 (5-6) Ur Specific [place] 1.015 (1.005-1.025) POC Urine Protein Conf 100 (Negative) Urine Ketones SMALL-15 (NEGATIVE) Urine Nitrite POSITIVE (NEGATIVE) Urine Bilirubin SMALL (NEGATIVE) Urine Urobilinogen 4 (0-1) mg/dL Urine Leukocytes LARGE (NEGATIVE) Urine WBC (Auto) >100 (0-5) /HPF Urine RBC (Auto) 0-2 (0-2) /HPF U Epithel Cells (Auto) RARE (FEW) /HPF Urine Bacteria (Auto) MODERATE (NEGATIVE) /HPF Urine RBC NEGATIVE (0-5) [place]/ul Urine Mucus (Auto) SLIGHT (NEGATIVE) /HPF Ur Culture Indicated? YES Urine Glucose 250 (NEGATIVE) mg/dL - Progress Progress: unchanged Air Movement: good Progress Note: 11/13/21 12:16 Does have UTI, given a dose of Rocephin in here and will continue with cefpodoxime to go home. Outpatient urology follow-up recommended. Counseled pt/family regarding: lab results, diagnosis, need for follow-up - Departure Departure Disposition: Home Clinical Impression: Acute UTI Condition: Stable Critical Care Time: No Referrals: LLUVIA CHILDERS DO [Primary Care Provider] - Follow up/PCP as directed (1-2 days for reevaluation) ERICK CRAFT [COURTESY STAFF] - Follow up/PCP as directed (Call for appointment for reevaluation) Instructions: Urinary Tract Infection, Adult (DC) Additional Instructions: Drink plenty of fluids. Take pain medications as needed. Follow-up with primary care/urology for reevaluation. Return to ER for worsening symptoms of UTI or if develop fever chills, intractable vomiting etc. Prescriptions: Cefpodoxime Proxetil 100 mg PO BID 7 Days #14 tablet
[2021-11-13 11:11] LABS: Appearance SLIGHTLY HAZY (CLEAR); Bilirubin SMALL (NEGATIVE); Dipstick done @ ? MAIN LAB; Glucose 250 mg/dL (NEGATIVE); Ketones SMALL-15 (NEGATIVE); Nitrite POSITIVE (NEGATIVE); Protein,Urine Dip 100 (Negative); RBC NEGATIVE Ery/ul (0-5); Specific Gravity 1.015 (1.005-1.025); Urobilinogen 4 mg/dL (0-1)
[2021-11-13 11:13] LABS: Epithelial Cells RARE /HPF (FEW); Mucus SLIGHT /HPF (NEGATIVE); RBC 0-2 /HPF (0-2); WBC >100 /HPF (0-5)
[2021-11-13 11:14] LABS: Bacteria MODERATE /HPF (NEGATIVE); Urine Cultured Indicated? YES
[2021-11-13] MEDS ORDERED: Rocephin 1000 MG INJ IM ONE (12:15)
[2021-11-13] MEDS ORDERED: Rocephin 1000 MG INJ ONE (12:21)
[2021-11-13 12:27] VITALS: PULSE 100
[2021-11-16 15:40] VITALS: O2SAT 96
== END 2021-11-13 12:29 | disposition home or self-care (01) ==
LOC: ED 10:06
DX: N39.0 Urinary tract infection, site not specified (principal); R30.0 Dysuria; R10.2 Pelvic and perineal pain; J44.9 Chronic obstructive pulmonary disease, unspecified; Z79.899 Other long term (current) drug therapy
CPT/HCPCS: 81015; 87077; 87086; 87186; 96372; 99283; J0696

== ENCOUNTER 2021-12-07 05:54 | Emergency (ER) | payer MEDICARE ==
[2021-12-07] MEDS ORDERED: BENADRYL 50 MG/ML IM ONE (06:27)
[2021-12-07] MEDS ORDERED: Compazine 10 MG/2 ML IM ONE (06:27)
[2021-12-07] MEDS ORDERED: TORAdol 30 mg Injection IM ONE (06:27)
--- NOTE | 2021-12-07 06:27 | ERPHSYRPT ---
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; c/o nausea; vitals wnl Timing/Duration: yesterday Quality: throbbing Head Pain Location: parietal (Worse on the right side), global Severity of Pain-Max: moderate Severity of Pain-Current: moderate Recent Head Trauma: no recent headache/trauma, frequent headaches Modifying Factors: Improves With: exposure to light, movement, noise Associated Symptoms: nausea/vomiting, sensitive to light Previous symptoms: same symptoms as today, no recent treatment Hx Tetanus, Diphtheria Vaccination/Date Given: Yes Hx Influenza Vaccination/Date Given: Yes Hx Pneumococcal Vaccination/Date Given: No - History of Present Illness Time Seen by Provider: 12/07/21 06:10 Physician History: This is a 66-year-old obese white female patient of Dr. Perry who was brought to the emergency department by ambulance service. Her primary complaint today is a migraine headache that is severe and did not respond to her Maxalt migraine medication. Patient states it is more severe than her typical migraine with light and sound sensitivity and the pain is global but more severe on the right parietal region. Her pain began yesterday afternoon. She denies trauma to the area. She is on anticoagulation therapy and was concerned that maybe she has a bleed in place. Patient has a history of migraine headaches. Patient was seen in June 2021 and given a combination of Benadryl, Toradol and Compazine which, she confirmed, helped relieve her migraine headache. Patient has multiple medical problems and multiple allergies to medication. However, the the above medications she is not allergic to. Patient has a history of bronchitis, recurrent UTIs, COPD, pulmonary embolus on Eliquis, gastroesophageal reflux disease and panic disorder. (PARK ROBERTS) Allergies/Adverse Reactions: sumatriptan [From Imitrex] Allergy (Intermediate, Verified 12/07/21 06:01) Rash codeine Allergy (Mild, Verified 12/07/21 06:01) Rash MAKES SICK nitrofurantoin [From Macrobid] Allergy (Unknown, Verified 12/07/21 06:01) sumatriptan succinate [From Imitrex] Allergy (Verified 12/07/21 06:01) morphine Adverse Reaction (Severe, Verified 12/07/21 06:01) Headache MIGRAINES fentanyl Adverse Reaction (Intermediate, Verified 12/07/21 06:01) Headache hydrocodone bitartrate [From Vicodin] Adverse Reaction (Mild, Verified 12/07/21 06:01) Vomiting hydromorphone [From Dilaudid] Adverse Reaction (Mild, Verified 12/07/21 06:01) pt states makes heache worse. Home Medications: ALPRAZolam 1 MG [Xanax 1 mg] 1 mg PO TID 02/17/13 [History] Polyethylene Glycol 3350 17 gm [Miralax Powder 17GM PACKET] 34 gm PO BID 11/15/14 [History] Sennosides/Docusate Sodium [Senokot-S Tablet] 1 tab PO DAILY 04/25/15 [History] Promethazine HCl 25 mg [Phenergan 25 mg] 25 mg PO Q4HPRN PRN 05/11/15 [History] Cetirizine HCl/Pseudoephedrine [Zyrtec-D Tablet] 1 each PO DAILY 02/03/16 [History] Aspirin 81 mg PO DAILY 09/11/16 [History] Levothyroxine Sodium 50 Mcg [Synthroid 50 Mcg] 50 mcg PO DAILY 07/06/17 [History] Linaclotide [Linzess] 290 mcg PO DAILY 10/07/17 [History] Rizatriptan Benzoate [Maxalt] 10 mg PO BID PRN PRN 06/23/18 [History] Fluticasone Propionate [Flonase NASAL] 2 spray NS DAILY 01/19/19 [History] Guaifenesin 600 mg ER [Mucinex 600MG ER Tabs] 600 mg PO DAILY 04/05/19 [History] Dexlansoprazole [Dexilant] 60 mg PO DAILY 01/21/20 [History] Prucalopride Succinate [Motegrity] 2 mg PO DAILY 01/21/20 [History] Fluticasone/Umeclidin/Vilanter [Trelegy Ellipta 100-62.5-25] 200 units IH DAILY 03/01/20 [History] Albuterol 2.5 mg/3 ml Neb [Proventil 2.5 mg/3 ml Neb] 2.5 mg IH QID 07/23/20 [History] Pantoprazole 20 mg [Protonix 20MG Tablet] 20 mg PO DAILY 04/24/21 [History] Magnesium Oxide 400 mg [Mag-Ox 400] 400 mg PO DAILY 09/29/21 [History] dilTIAZem HCl [Diltiazem 24Hr ER (Cd)] 120 mg PO DAILY 09/29/21 [History] Travel Risk - International Travel Have you traveled outside of the country in past 3 weeks: No - Coronavirus Screening Are you exhibiting any of the following symptoms?: No Close contact with a COVID-19 positive Pt in past 14-21 Days: No - Vaccine Status Have you recieved a 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: Yes 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: [employer] - Vaccination Dates Date of 2cond Vaccination (if applicable): 2020 - Review of Systems Constitutional: No Symptoms Eyes: No Symptoms Ears, Nose, & Throat: No Symptoms Respiratory: No Symptoms Cardiac: No Symptoms Abdominal/Gastrointestinal: No Symptoms Genitourinary Symptoms: No Symptoms Musculoskeletal: No Symptoms Skin: No Symptoms Neurological: Headache Psychological: No Symptoms Endocrine: No Symptoms Hematologic/Lymphatic: No Symptoms Immunological/Allergic: No Symptoms All Other Systems: Reviewed and Negative - Past Medical History Pertinent Past Medical History: Yes Neurological History: Migraines ENT History: Cataracts Cardiac History: No Pertinent History Respiratory History: Bronchitis, COPD, Pulmonary Embolism Endocrine Medical History: Hypothyroidism Musculoskeletal History: Osteoarthritis GI Medical History: GERD, Other History: Other Psycho-Social History: Anxiety, Panic Disorder Female Reproductive Disorders: No Pertinent History Other Medical History: frequent uti's, chronic pseudo obstruction, blood clot - Past Surgical History Past Surgical History: Yes Neuro Surgical History: No Pertinent History Cardiac: No Pertinent History Respiratory: No Pertinent History Gastrointestinal: Cholecystectomy, Other Genitourinary: No Pertinent History Musculoskeletal: No Pertinent History Female Surgical History: No Pertinent History Other Surgical History: all of large intestine removed - Social History Smoking Status: Never smoker Exposure to second hand smoke: No Alcohol Use: None Drug Use: none Patient Lives Alone: Yes Significant Family History: no pertinent family hx - Physical Exam General Appearance: mild distress, alert, anxiety, obese Eye Exam: PERRL/EOMI, eyes nml inspection Ears, Nose, Throat Exam: normal ENT inspection, moist mucous membranes Neck Exam: normal inspection, non-tender, supple, full range of motion Respiratory Exam: airway intact, No chest tenderness, No respiratory distress Cardiovascular Exam: regular rate/rhythm, normal heart sounds, normal peripheral pulses Gastrointestinal/Abdominal Exam: No tenderness Back Exam: normal inspection, normal range of motion, No CVA tenderness, No vertebral tenderness Extremity Exam: normal inspection, normal range of motion, pelvis stable 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, 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, 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 Exam: normal hearing, normal speech, PERRL, tongue midline Coordination/Gait Exam: normal gait Motor/Sensory Exam: no motor deficit, no sensory deficit Skin Exam: normal color, warm, dry Lymphatic Exam: No adenopathy SpO2 Interpretation: borderline oxygenation SpO2: 95 O2 Delivery: Room Air - Nursing Vital Signs Nursing Vital Signs: Initial Vital Signs Temperature 96.7 F 12/07/21 06:02 Pulse Rate 97 H 12/07/21 06:02 Respiratory Rate 18 12/07/21 06:02 Blood Pressure 117/59 12/07/21 06:02 O2 Sat by Pulse Oximetry 95 12/07/21 06:02 Pain Scale Pain Intensity 3 - Course Nursing assessment & vital signs reviewed: Yes Ordered Tests: Active Orders 24 hr Category Date Time Status Line Installation Supervisor STAT Care 12/07/21 06:28 Completed Pulse Oximetry (ED) STAT Care 12/07/21 06:27 Completed HEAD WITHOUT CONTRAST [CT] Stat Exams 12/07/21 06:27 Completed Medication Summary Discontinued Medications Generic Name Dose Route Start Last Admin Trade Name Elton PRN Reason Stop Dose Admin Diphenhydramine HCl 50 mg 12/07/21 06:27 12/07/21 06:44 Diphenhydramine Hcl 50 Mg/Ml Vial IM 12/07/21 06:28 50 mg STAT ONE Administration Diphenhydramine HCl Confirm 12/07/21 06:43 Diphenhydramine Hcl 50 Mg/Ml Vial Administered 12/07/21 06:44 Dose 50 mg .ROUTE .STK-MED ONE Ketorolac Tromethamine 60 mg 12/07/21 06:27 12/07/21 06:44 Ketorolac Tromethamine 30 Mg/Ml Inj IM 12/07/21 06:28 60 mg STAT ONE Administration Ketorolac Tromethamine Confirm 12/07/21 06:42 Ketorolac Tromethamine 30 Mg/Ml Inj Administered 12/07/21 06:43 Dose 60 mg .ROUTE .STK-MED ONE Prochlorperazine Edisylate 5 mg 12/07/21 06:27 12/07/21 06:44 Prochlorperazine Edisylate 10 Mg/2 Ml Vial IM 12/07/21 06:28 5 mg STAT ONE Administration Prochlorperazine Edisylate Confirm 12/07/21 06:43 Prochlorperazine Edisylate 10 Mg/2 Ml Vial Administered 12/07/21 06:44 Dose 10 mg .ROUTE .STK-MED ONE - Progress Progress: improved Air Movement: good Blood Culture(s) Obtained: No Antibiotics given: No Counseled pt/family regarding: diagnosis, need for follow-up, rad results - Progress Progress Note: 12/07/21 06:48 Patient care is being transferred to Dr. Hammond at shift change. Patient received intramuscular medication to help resolve her headache. CAT scan of the head without contrast results are pending and he will follow-up with this study and make final disposition. (PARK ROBERTS) 12/07/21 08:07 patient is feeling much better on my evaluation. Her headache is almost resolved. She is resting comfortably. Nonfocal neuro exam. CT head is negative. Do not think she needs any other work-up and recommended outpatient follow-up. Discussed signs symptoms of worsening needing return to ER which she seems understanding. (DELMY HAMMOND) - Departure Departure Disposition: Home Critical Care Time: No - Departure Clinical Impression: Migraine headache Condition: Stable Referrals: LLUVIA PERRY DO [Primary Care Provider] - Follow up/PCP as directed Instructions: Migraines in Adults Additional Instructions: Take your Maxalt migraine headache medication as prescribed. Follow-up with your primary care physician on 11/28/2021 for further evaluation and management.
[2021-12-07] MEDS ORDERED: TORAdol 30 mg Injection ONE (06:42)
[2021-12-07] MEDS ORDERED: Compazine 10 MG/2 ML ONE (06:43)
[2021-12-07] MEDS ORDERED: BENADRYL 50 MG/ML ONE (06:43)
--- NOTE | 2021-12-07 08:07 | XRAY ---
Indication: Severe headache. History of migraines. Multiple contiguous axial images obtained through the head without contrast. Comparison: July 10, 2021 Normal appearing brain parenchyma, ventricles, and bony calvarium for patient's age. Visualized paranasal sinuses and mastoid air cells are clear. Impression: Continued normal CT head without contrast exam. Comment: Preliminary interpretation made by [facility]. No critical discrepancy.
[2021-12-07 08:13] VITALS: BP 94/51; PULSE 73; O2SAT 93
== END 2021-12-07 08:14 | disposition home or self-care (01) ==
LOC: ED 05:54
DX: G43.909 Migraine, unspecified, not intractable, without status migrainosus (principal); H53.143 Visual discomfort, bilateral; J44.9 Chronic obstructive pulmonary disease, unspecified; Z79.01 Long term (current) use of anticoagulants; Z79.899 Other long term (current) drug therapy
CPT/HCPCS: 70450; 93041; 94760; 96372; 99284; J1200; J1885

== ENCOUNTER 2022-01-17 20:24 | Observation (INO) | payer MEDICARE ==
[2022-01-17] MEDS ORDERED: solu-MEDROL 125 MG, Sterile H2O 10 ml 2 ML IV ONE ×2 (20:35)
[2022-01-17] MEDS ORDERED: DUONEB 0.5-3 MG/3 ml Neb IH ONE ×2 (20:35→20:46)
--- NOTE | 2022-01-17 20:42 | ERPHSYRPT ---
- History of Present Illness Time Seen by Provider: 01/17/22 20:35 Source: patient, EMS Exam Limitations: no limitations Physician History: pt is 66 yr old on chronic O2 at home at 2.5 L, developing acute on chronic SOBreath this pm similar to when she had a PE a few yrs ago. For that she is on prophylactic Eliqus BID. Hx of tachycardia on a med for this but no prior WI or stent reported. No fever or N/V or abd pain but some sharp pleuritic CP. Was also told she might have UTI and awaiting that result so we will also check UA. She reports a chronic need for IV rehydration and has an infusion port for this and was treated a day or so ago. Timing/Duration: today Activities at Onset: none Severity of Dyspnea-Max: moderate Severity of Dyspnea-Current: moderate Possible Cause: frequent episodes, chronic episodes Modifying Factors: Improves With: albuterol inhaler, coughing Associated Symptoms: anxiety, cough, chest pain/discomfort, painful breathing Allergies/Adverse Reactions: sumatriptan [From Imitrex] Allergy (Intermediate, Verified 12/07/21 06:01) Rash codeine Allergy (Mild, Verified 12/07/21 06:01) Rash MAKES SICK nitrofurantoin [From Macrobid] Allergy (Unknown, Verified 12/07/21 06:01) sumatriptan succinate [From Imitrex] Allergy (Verified 12/07/21 06:01) morphine Adverse Reaction (Severe, Verified 12/07/21 06:01) Headache MIGRAINES fentanyl Adverse Reaction (Intermediate, Verified 12/07/21 06:01) Headache hydrocodone bitartrate [From Vicodin] Adverse Reaction (Mild, Verified 12/07/21 06:01) Vomiting hydromorphone [From Dilaudid] Adverse Reaction (Mild, Verified 12/07/21 06:01) pt states makes heache worse. Home Medications: ALPRAZolam 1 MG [Xanax 1 mg] 1 mg PO TID 02/17/13 [History] Polyethylene Glycol 3350 17 gm [Miralax Powder 17GM PACKET] 34 gm PO BID 11/15/14 [History] Sennosides/Docusate Sodium [Senokot-S Tablet] 1 tab PO DAILY 04/25/15 [History] Promethazine HCl 25 mg [Phenergan 25 mg] 25 mg PO Q4HPRN PRN 05/11/15 [History] Cetirizine HCl/Pseudoephedrine [Zyrtec-D Tablet] 1 each PO DAILY 02/03/16 [History] Aspirin 81 mg PO DAILY 09/11/16 [History] Levothyroxine Sodium 50 Mcg [Synthroid 50 Mcg] 50 mcg PO DAILY 07/06/17 [History] Linaclotide [Linzess] 290 mcg PO DAILY 10/07/17 [History] Rizatriptan Benzoate [Maxalt] 10 mg PO BID PRN PRN 06/23/18 [History] Fluticasone Propionate [Flonase NASAL] 2 spray NS DAILY 01/19/19 [History] Guaifenesin 600 mg ER [Mucinex 600MG ER Tabs] 600 mg PO DAILY 04/05/19 [History] Dexlansoprazole [Dexilant] 60 mg PO DAILY 01/21/20 [History] Prucalopride Succinate [Motegrity] 2 mg PO DAILY 01/21/20 [History] Fluticasone/Umeclidin/Vilanter [Trelegy Ellipta 100-62.5-25] 200 units IH DAILY 03/01/20 [History] Albuterol 2.5 mg/3 ml Neb [Proventil 2.5 mg/3 ml Neb] 2.5 mg IH QID 07/23/20 [History] Pantoprazole 20 mg [Protonix 20MG Tablet] 20 mg PO DAILY 04/24/21 [History] Magnesium Oxide 400 mg [Mag-Ox 400] 400 mg PO DAILY 09/29/21 [History] dilTIAZem HCl [Diltiazem 24Hr ER (Cd)] 120 mg PO DAILY 09/29/21 [History] Doxycycline Hyclate 100 mg [Vibramycin 100 MG] 100 mg PO BID 01/13/22 [History] Hx Tetanus, Diphtheria Vaccination/Date Given: Yes Hx Influenza Vaccination/Date Given: Yes Hx Pneumococcal Vaccination/Date Given: No Travel Risk - Vaccine Status Have you recieved a 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: Yes Grease Cup Filler: Pfizer - Vaccination Dates Date of 2cond Vaccination (if applicable): 2020 - Review of Systems Constitutional: No Fever, No Chills Eyes: No Symptoms Ears, Nose, & Throat: No Symptoms, No Throat Pain, No Throat Swelling, No Hoarse, No Painful Swallowing, No Stridor Respiratory: Cough, Dyspnea, No Stridor Cardiac: No Chest Pain, No Edema, No Syncope Abdominal/Gastrointestinal: No Abdominal Pain, No Nausea, No Vomiting, No Diarrhea Genitourinary Symptoms: No Dysuria Musculoskeletal: No Back Pain, No Neck Pain Skin: No Symptoms, No Rash Neurological: No Dizziness, No Focal Weakness, No Sensory Changes Psychological: No Symptoms Endocrine: No Symptoms Hematologic/Lymphatic: No Symptoms Immunological/Allergic: No Symptoms All Other Systems: Reviewed and Negative - Past Medical History Pertinent Past Medical History: Yes Neurological History: Migraines ENT History: Cataracts Cardiac History: No Pertinent History Respiratory History: Bronchitis, COPD, Pulmonary Embolism Endocrine Medical History: Hypothyroidism Musculoskeletal History: Osteoarthritis GI Medical History: GERD, Other History: Other Psycho-Social History: Anxiety, Panic Disorder Female Reproductive Disorders: No Pertinent History Other Medical History: frequent uti's, chronic pseudo obstruction, blood clot - Past Surgical History Past Surgical History: Yes Neuro Surgical History: No Pertinent History Cardiac: No Pertinent History Respiratory: No Pertinent History Gastrointestinal: Cholecystectomy, Other Genitourinary: No Pertinent History Musculoskeletal: No Pertinent History Female Surgical History: No Pertinent History Other Surgical History: all of large intestine removed - Social History Smoking Status: Never smoker Exposure to second hand smoke: No Alcohol Use: None Drug Use: none Patient Lives Alone: Yes Significant Family History: no pertinent family hx - Nursing Vital Signs Nursing Vital Signs: Initial Vital Signs Temperature 98.3 F 01/17/22 20:34 Pulse Rate 103 H 01/17/22 20:34 Respiratory Rate 22 01/17/22 20:34 Blood Pressure 109/88 01/17/22 20:34 O2 Sat by Pulse Oximetry 95 01/17/22 20:34 Pain Scale Pain Intensity 5 - Physical Exam General Appearance: no apparent distress, alert Eye Exam: PERRL/EOMI Ears, Nose, Throat Exam: normal pharynx Neck Exam: normal inspection, supple Respiratory Exam: airway intact, prolonged expirations, rhonchi Cardiovascular/Chest Exam: normal heart sounds, regular rate/rhythm Abdominal/Gastrointestinal Exam: soft, No tenderness, No distention, No mass Rectal Exam: deferred Extremity Exam: non-tender, normal range of motion, normal inspection, no calf tenderness, no pedal edema, No calf tenderness, No swelling, No brooks's sign Peripheral Pulses Exam: carotid (R): 2+, carotid (L): 2+, femoral (R): 2+, fe moral (L): 2+, dorsalis-pedis (R): 2+, dorsalis-pedis (L): 2+ Neurologic Exam: alert, 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, cooperative, director of public works II-XII nml as tested, sensation nml, No motor deficits Skin Exam: normal color, warm, No dry SpO2 Interpretation: borderline oxygenation, O2 applied SpO2: 94 O2 Delivery: Nasal Cannula (2.5 L) - Course Nursing assessment & vital signs reviewed: Yes EKG Interpreted by Me: Sinus Tach, Left [place] Deviation, Non-specific ST Changes, Other (poor r wave progression and border low voltage) - Radiology Exams Chest X-ray Interpretation: Reviewed by me, Teleradiologist Report, No Infiltrates, Other (old fibrosis and calcified hilar nodes without change per rad) Ordered Tests: Active Orders 24 hr Category Date Time Status Alum Operator STAT Care 01/17/22 20:37 Active EKG-ER Only STAT Care 01/17/22 20:35 Active IV Insertion STAT Care 01/17/22 20:35 Active Oxygen-ED Only Nasal Cannula 3 lpm Care 01/17/22 20:35 Active CHEST 1 VIEW (PORTABLE) Stat Exams 01/17/22 20:36 Completed CBC W DIFF Stat Lab 01/17/22 20:50 Completed CMP Stat Lab 01/17/22 20:50 Completed CULTURE,URINE Stat Lab 01/17/22 21:01 Received D-DIMER QUANTITATIVE Stat Lab 01/17/22 20:50 Completed Lactic Acid Stat Lab 01/17/22 20:55 Completed MAGNESIUM Stat Lab 01/17/22 20:50 Completed NT PRO BNP Stat Lab 01/17/22 20:50 Completed TROPONIN Q4H Lab 01/17/22 20:50 Completed TROPONIN Q4H Lab 01/18/22 00:45 Ordered TROPONIN Q4H Lab 01/18/22 04:45 Ordered UA W/RFX CULTURE Stat Lab 01/17/22 21:01 Completed Respiratory Therapy Assessment DAILY RT 01/17/22 21:10 Active Medication Summary Generic Name Dose Route Start Last Admin Trade Name Elton PRN Reason Stop Dose Admin Sodium Chloride 1,000 mls @ 100 mls/hr 01/17/22 20:45 01/17/22 20:46 Sodium Chloride 0.9% 1000 Ml IV 02/16/22 20:44 100 mls/hr .Q10H JENNIFER Administration Discontinued Medications Generic Name Dose Route Start Last Admin Trade Name Elton PRN Reason Stop Dose Admin Albuterol/Ipratropium 3 ml 01/17/22 20:35 01/17/22 20:48 Ipratropium/Albuterol Sulfate 3 Ml Ampul.Neb IH 01/17/22 20:36 3 ml STAT ONE Administration Albuterol/Ipratropium Confirm 01/17/22 20:46 Ipratropium/Albuterol Sulfate 3 Ml Ampul.Neb Administered 01/17/22 20:47 Dose 3 ml IH .STK-MED ONE Methylprednisolone Sodium 0 mg 01/17/22 20:35 01/17/22 20:48 Succinate 125 mg/ Sterile IV 01/17/22 20:36 125 mg Water 2 ml STAT ONE Administration Ceftriaxone Sodium/Dextrose 1 g in 50 mls @ 100 mls/hr 01/17/22 23:38 00:09 Rocephin 1 Gm-D5w 50 Ml Bag IV 01/18/22 00:07 Infused STAT STA Infusion Ceftriaxone Sodium/Dextrose Confirm 01/17/22 23:40 Rocephin 1 Gm-D5w 50 Ml Bag Administered 01/17/22 23:41 Dose 1 g in 50 mls @ ud IV .STK-MED ONE Lorazepam 1 mg 01/17/22 20:49 01/17/22 21:08 Lorazepam 1 Mg Tablet PO 01/17/22 20:50 1 mg STAT ONE Administration Lorazepam Confirm 01/17/22 21:07 Lorazepam 1 Mg Tablet Administered 01/17/22 21:08 Dose 1 mg .ROUTE .STK-MED ONE Methylprednisolone Sodium Succinate Confirm 01/17/22 20:43 Methylprednis Sod Succ 125 Mg/2 Ml Vial Administered 01/17/22 20:44 Dose 125 mg .ROUTE .STK-MED ONE Sterile Water Confirm 01/17/22 20:43 Water For Injection,Sterile 10 Ml Vial Administered 01/17/22 20:44 Dose 10 ml IJ .Sunlot-MED ONE Lab/Rad Data: Laboratory Result Diagrams 01/17/22 20:50 01/17/22 20:50 Laboratory Results 01/17/22 01/17/22 01/17/22 Range/Units 21:01 20:55 20:50 WBC (4.0-10.5) x10^3/uL RBC (4.1-5.4) x10^6/uL Hgb (12.0-16.0) g/dL Hct (35-47) % MCV (78-100) fL MCH (26-32) pg MCHC (32-36) g/dL RDW (11.5-14.0) % Plt Count (150-450) x10^3/uL MPV (7.5-11.0) fL Gran % (36.0-66.0) % Immature Gran % (Auto) (0.00-0.4) % Nucleat RBC Rel Count (0.00-0.1) % Eos # (Auto) (0-0.5) x10^3/uL Immature Gran # (Auto) (0.00-0.03) x10^3u/L Absolute Lymphs (auto) (1.0-4.6) x10^3/uL Absolute Monos (auto) (0.0-1.3) x10^3/uL Absolute Nucleated RBC (0.00-0.01) x10^3u/L Lymphocytes % (24.0-44.0) % Monocytes % (0.0-12.0) % Eosinophils % (0.00-5.0) % Basophils % (0.0-0.4) % Absolute Granulocytes (1.4-6.9) x10^3/uL Basophils # (0-0.4) x10^3/uL D-Dimer (0.0-0.50) mg/L Sodium (137-145) mmol/L Potassium (3.5-5.1) mmol/L Chloride (98-107) mmol/L Carbon Dioxide (22-30) mmol/L Anion Gap (5-15) MEQ/L BUN (7-17) mg/dL Creatinine (0.52-1.04) mg/dL Estimated GFR ML/MIN Glucose (74-106) mg/dL Lactic Acid 0.9 (0.4-2.0) Calcium (8.4-10.2) mg/dL Magnesium (1.6-2.3) mg/dL Total Bilirubin (0.2-1.3) mg/dL AST (14-36) U/L ALT (0-35) U/L Alkaline Phosphatase (38-126) U/L Troponin I (0.000-0.034) ng/mL NT-Pro-B Natriuret Pep (0-900) pg/mL Serum Total Protein (6.3-8.2) g/dL Albumin (3.5-5.0) g/dL Urinalys Dipstick Clnc MAIN LAB Urine Color ORANGE A (YELLOW) Urine Appearance SLIGHTLY CLOUDY A (CLEAR) Urine pH 5.0 (5-6) Ur Specific [place] >=1.030 A (1.005-1.025) POC Urine Protein Conf 100 A (Negative) Urine Ketones TRACE A (NEGATIVE) Urine Nitrite POSITIVE A (NEGATIVE) Urine Bilirubin SMALL A (NEGATIVE) Urine Urobilinogen 1 A (0-1) mg/dL Urine Leukocytes TRACE A (NEGATIVE) Urine WBC (Auto) 51-100 A (0-5) /HPF Urine RBC (Auto) 11-15 A (0-2) /HPF U Hyaline Cast (Auto) 0-2 (0-2) /LPF U Epithel Cells (Auto) RARE (FEW) /HPF Urine Bacteria (Auto) FEW A (NEGATIVE) /HPF Urine RBC MODERATE A (0-5) Aroldo/ul Urine Mucus (Auto) SLIGHT A (NEGATIVE) /HPF Ur Culture Indicated? YES Urine Glucose 100 A (NEGATIVE) mg/dL Influenza Type A Ag NEGATIVE (NEGATIVE) Influenza Type B Ag NEGATIVE (NEGATIVE) RSV (PCR) NEGATIVE (Negative) SARS-CoV-2 (PCR) NEGATIVE (NEGATIVE) 01/17/22 01/17/22 01/17/22 Range/Units 20:50 20:50 20:50 WBC (4.0-10.5) x10^3/uL RBC (4.1-5.4) x10^6/uL Hgb (12.0-16.0) g/dL Hct (35-47) % MCV (78-100) fL MCH (26-32) pg MCHC (32-36) g/dL RDW (11.5-14.0) % Plt Count (150-450) x10^3/uL MPV (7.5-11.0) fL Gran % (36.0-66.0) % Immature Gran % (Auto) (0.00-0.4) % Nucleat RBC Rel Count (0.00-0.1) % Eos # (Auto) (0-0.5) x10^3/uL Immature Gran # (Auto) (0.00-0.03) x10^3u/L Absolute Lymphs (auto) (1.0-4.6) x10^3/uL Absolute Monos (auto) (0.0-1.3) x10^3/uL Absolute Nucleated RBC (0.00-0.01) x10^3u/L Lymphocytes % (24.0-44.0) % Monocytes % (0.0-12.0) % Eosinophils % (0.00-5.0) % Basophils % (0.0-0.4) % Absolute Granulocytes (1.4-6.9) x10^3/uL Basophils # (0-0.4) x10^3/uL D-Dimer 0.22 (0.0-0.50) mg/L Sodium 139 (137-145) mmol/L Potassium 3.7 (3.5-5.1) mmol/L Chloride 116 H (98-107) mmol/L Carbon Dioxide 16 L* (22-30) mmol/L Anion Gap 10.4 (5-15) MEQ/L BUN 25 H (7-17) mg/dL Creatinine 1.30 H (0.52-1.04) mg/dL Estimated GFR 43.6 ML/MIN Glucose 124 H (74-106) mg/dL Lactic Acid (0.4-2.0) Calcium 8.4 (8.4-10.2) mg/dL Magnesium 1.4 L (1.6-2.3) mg/dL Total Bilirubin 0.30 (0.2-1.3) mg/dL AST 17 (14-36) U/L ALT 14 (0-35) U/L Alkaline Phosphatase 112 (38-126) U/L Troponin I < 0.012 (0.000-0.034) ng/mL NT-Pro-B Natriuret Pep 79.6 (0-900) pg/mL Serum Total Protein 6.6 (6.3-8.2) g/dL Albumin 3.7 (3.5-5.0) g/dL Urinalys Dipstick Clnc Urine Color (YELLOW) Urine Appearance (CLEAR) Urine pH (5-6) Ur Specific [place] (1.005-1.025) POC Urine Protein Conf (Negative) Urine Ketones (NEGATIVE) Urine Nitrite (NEGATIVE) Urine Bilirubin (NEGATIVE) Urine Urobilinogen (0-1) mg/dL Urine Leukocytes (NEGATIVE) Urine WBC (Auto) (0-5) /HPF Urine RBC (Auto) (0-2) /HPF U Hyaline Cast (Auto) (0-2) /LPF U Epithel Cells (Auto) (FEW) /HPF Urine Bacteria (Auto) (NEGATIVE) /HPF Urine RBC (0-5) Aroldo/ul Urine Mucus (Auto) (NEGATIVE) /HPF Ur Culture Indicated? Urine Glucose (NEGATIVE) mg/dL Influenza Type A Ag (NEGATIVE) Influenza Type B Ag (NEGATIVE) RSV (PCR) (Negative) SARS-CoV-2 (PCR) (NEGATIVE) 01/17/22 Range/Units 20:50 WBC 5.2 (4.0-10.5) x10^3/uL RBC 3.82 L (4.1-5.4) x10^6/uL Hgb 10.0 L (12.0-16.0) g/dL Hct 32.7 L (35-47) % MCV 85.6 (78-100) fL MCH 26.2 (26-32) pg MCHC 30.6 L (32-36) g/dL RDW 16.2 H (11.5-14.0) % Plt Count 199 (150-450) x10^3/uL MPV 10.5 (7.5-11.0) fL Gran % 68.5 H (36.0-66.0) % Immature Gran % (Auto) 0.6 H (0.00-0.4) % Nucleat RBC Rel Count 0.0 (0.00-0.1) % Eos # (Auto) 0.08 (0-0.5) x10^3/uL Immature Gran # (Auto) 0.03 (0.00-0.03) x10^3u/L Absolute Lymphs (auto) 1.09 (1.0-4.6) x10^3/uL Absolute Monos (auto) 0.41 (0.0-1.3) x10^3/uL Absolute Nucleated RBC 0.00 (0.00-0.01) x10^3u/L Lymphocytes % 21.1 L (24.0-44.0) % Monocytes % 7.9 (0.0-12.0) % Eosinophils % 1.5 (0.00-5.0) % Basophils % 0.4 (0.0-0.4) % Absolute Granulocytes 3.54 (1.4-6.9) x10^3/uL Basophils # 0.02 (0-0.4) x10^3/uL D-Dimer (0.0-0.50) mg/L Sodium (137-145) mmol/L Potassium (3.5-5.1) mmol/L Chloride (98-107) mmol/L Carbon Dioxide (22-30) mmol/L Anion Gap (5-15) MEQ/L BUN (7-17) mg/dL Creatinine (0.52-1.04) mg/dL Estimated GFR ML/MIN Glucose (74-106) mg/dL Lactic Acid (0.4-2.0) Calcium (8.4-10.2) mg/dL Magnesium (1.6-2.3) mg/dL Total Bilirubin (0.2-1.3) mg/dL AST (14-36) U/L ALT (0-35) U/L Alkaline Phosphatase (38-126) U/L Troponin I (0.000-0.034) ng/mL NT-Pro-B Natriuret Pep (0-900) pg/mL Serum Total Protein (6.3-8.2) g/dL Albumin (3.5-5.0) g/dL Urinalys Dipstick Clnc Urine Color (YELLOW) Urine Appearance (CLEAR) Urine pH (5-6) Ur Specific [place] (1.005-1.025) POC Urine Protein Conf (Negative) Urine Ketones (NEGATIVE) Urine Nitrite (NEGATIVE) Urine Bilirubin (NEGATIVE) Urine Urobilinogen (0-1) mg/dL Urine Leukocytes (NEGATIVE) Urine WBC (Auto) (0-5) /HPF Urine RBC (Auto) (0-2) /HPF U Hyaline Cast (Auto) (0-2) /LPF U Epithel Cells (Auto) (FEW) /HPF Urine Bacteria (Auto) (NEGATIVE) /HPF Urine RBC (0-5) Aroldo/ul Urine Mucus (Auto) (NEGATIVE) /HPF Ur Culture Indicated? Urine Glucose (NEGATIVE) mg/dL Influenza Type A Ag (NEGATIVE) Influenza Type B Ag (NEGATIVE) RSV (PCR) (Negative) SARS-CoV-2 (PCR) (NEGATIVE) - Progress Progress: improved, re-examined Air Movement: good Progress Note: 01/17/22 20:53 HR decreased into 90s on O2 and breathing Tx. 01/17/22 21:30 MDM: looking at the chronic underlying lung Dx for a potential exacerbation and considering the pts increased risk for PE as a source of her symptoms from prior hx , although on AC. Due to CP , although atypical for cardiac, we are checking EKG ( hx of tachycardia treated) and trop/BNP, since this is still a possibility. Also the hx of concern for recent UTI is being addressed. 01/18/22 00:[address] Cedillo and pt and all agree best for pt to come in to hosp on observation to have tx for UTI and exac COPD Blood Culture(s) Obtained: No Antibiotics given: Yes Discussed with : Cecilia Will see patient in: hospital (observation) Counseled pt/family regarding: lab results, diagnosis, need for follow-up, rad results - Departure Departure Disposition: Observation Clinical Impression: Acute exacerbation of chronic bronchitis, Chest pain, UTI outpt failure, COPD exacerbation, Hypomagnesemia Condition: Good Critical Care Time: No Referrals: LLUVIA CHILDERS DO [Primary Care Provider] - Follow up/PCP as directed Instructions: Shortness of Breath (Dyspnea) (DC), Exacerbation of COPD (DC), C hronic Obstructive Pulmonary Disease
[2022-01-17] MEDS ORDERED: solu-MEDROL ONE (20:43)
[2022-01-17] MEDS ORDERED: Sodium Chloride 0.9% 1000 ML 1,000 ML ONE (20:43)
[2022-01-17] MEDS ORDERED: Sterile H2O 10 ml IJ ONE (20:43)
[2022-01-17] MEDS ORDERED: Sodium Chloride 0.9% 1000 ML 1,000 ML IV SCH (20:45)
[2022-01-17] MEDS ORDERED: Ativan 1 MG PO ONE (20:49)
[2022-01-17 20:53] LABS: Absolute Neutrophil Ct (ANC) 3.54 x10^3/uL (1.4-6.9); Basophil (Absolute #) 0.02 x10^3/uL (0-0.4); Eosinophil % 1.5 % (0.00-5.0); Eosinophil (Absolute #) 0.08 x10^3/uL (0-0.5); Hematocrit 32.7 % (35-47); Lymphocyte (Absolute #) 1.09 x10^3/uL (1.0-4.6); Lymphocytes % 21.1 % (24.0-44.0); Mean Cell Volume 85.6 fL (78-100); Mean Corpuscular Hemoglobin 26.2 pg (26-32); Mean Corpuscular Hgb Concent. 30.6 g/dL (32-36); Mean Platelet Volume 10.5 fL (7.5-11.0); Monocyte (Absolute #) 0.41 x10^3/uL (0.0-1.3); Monocytes % 7.9 % (0.0-12.0); Neutrophil % 68.5 % (36.0-66.0); Platelet Count 199 x10^3/uL (150-450); Red Blood Count 3.82 x10^6/uL (4.1-5.4); Red Cell Distribution Width 16.2 % (11.5-14.0); White Blood Count 5.2 x10^3/uL (4.0-10.5)
[2022-01-17] MEDS ORDERED: Ativan 1 MG ONE (21:07)
[2022-01-17 21:18] LABS: Bacteria FEW /HPF (NEGATIVE); Epithelial Cells RARE /HPF (FEW); Hyaline Casts 0-2 /LPF (0-2); Mucus SLIGHT /HPF (NEGATIVE); WBC 51-100 /HPF (0-5)
[2022-01-17 21:19] LABS: Appearance SLIGHTLY CLOUDY (CLEAR); Bilirubin SMALL (NEGATIVE); Glucose 100 mg/dL (NEGATIVE); Ketones TRACE (NEGATIVE); Specific Gravity >=1.030 (1.005-1.025)
[2022-01-17 21:20] LABS: Dipstick done @ ? MAIN LAB; Nitrite POSITIVE (NEGATIVE); Protein,Urine Dip 100 (Negative); RBC MODERATE Ery/ul (0-5); Urine Cultured Indicated? YES; Urobilinogen 1 mg/dL (0-1)
[2022-01-17 21:29] LABS: INFLUENZA A NEGATIVE (NEGATIVE); INFLUENZA B NEGATIVE (NEGATIVE); RESPIRATORY SYNCTIAL VIRUS NEGATIVE (Negative); SARS-CoV-2 Xpert Express NEGATIVE (NEGATIVE)
[2022-01-17 21:31] LABS: ALBUMIN 3.7 g/dL (3.5-5.0); ANION GAP 10.4 MEQ/L (5-15); BILIRUBIN,TOTAL 0.3 mg/dL (0.2-1.3); Calcium 8.4 mg/dL (8.4-10.2); MAGNESIUM 1.4 mg/dL (1.6-2.3); NT PRO BNP 79.6 pg/mL (0-900); Potassium 3.7 mmol/L (3.5-5.1); Total Protein 6.6 g/dL (6.3-8.2)
--- NOTE | 2022-01-17 21:42 | XRAY ---
Indication: Short of breath. Comparison: October 18, 2021 Portable chest demonstrates interval clearing right lung base. Again minimal fibrosis/scarring in both midlung gillis. No focal infiltrate, consolidation, or large effusion. Heart not enlarged again with mediastinal/right hilar calcified nodes and right Port-A-Cath. Bony thorax intact. Impression: Nonacute chest with chronic features.
[2022-01-17 22:02] LABS: Creatinine 1 1.3 mg/dL (0.52-1.04); EST GLOMERULAR FILTRATION RATE 43.6 ML/MIN
[2022-01-17] MEDS ORDERED: ROCEPHIN 1 Gm-D5w 50 ml Bag** 1 G/50 ML IVPB IV STA (23:38)
[2022-01-17] MEDS ORDERED: ROCEPHIN 1 Gm-D5w 50 ml Bag** 1 G/50 ML IVPB IV ONE (23:40)
[2022-01-18] MEDS ORDERED: MAGNESIUM SULF 2 G/50 ML BAG 2 GM/50 ML PIGGYBACK IV ONE (00:50)
[2022-01-18] MEDS ORDERED: HUMALOG SQ PRN (00:50)
[2022-01-18] MEDS: DUONEB 0.5-3 MG/3 ml Neb IH SCH ×4 (00:59→18:43)
[2022-01-18] MEDS ORDERED: VENTOLIN COMMON CANISTER IH PRN (01:19)
[2022-01-18] MEDS ORDERED: Magnesium 1 Gm / 100 Ml D5W*** 200 ML IV ONE (01:42)
[2022-01-18] MEDS: Magnesium 1 Gm / 100 Ml D5W*** 100 ML IV SCH ×2 (02:28→03:06)
[2022-01-18] MEDS ORDERED: DUONEB 0.5-3 MG/3 ml Neb IH SCH (03:00)
[2022-01-18 04:52] LABS: Hemoglobin 9.2 g/dL (12.0-16.0); Mean Cell Volume 83.6 fL (78-100); Mean Corpuscular Hemoglobin 26.5 pg (26-32); Mean Corpuscular Hgb Concent. 31.7 g/dL (32-36); Mean Platelet Volume 10.7 fL (7.5-11.0); Platelet Count 176 x10^3/uL (150-450); Red Blood Count 3.47 x10^6/uL (4.1-5.4); Red Cell Distribution Width 16.3 % (11.5-14.0); White Blood Count 4.2 x10^3/uL (4.0-10.5)
[2022-01-18 05:08] LABS: ALBUMIN 3.4 g/dL (3.5-5.0); ANION GAP 11.7 MEQ/L (5-15); BILIRUBIN,TOTAL 0.2 mg/dL (0.2-1.3); Calcium 8.1 mg/dL (8.4-10.2); Creatinine 1 1.25 mg/dL (0.52-1.04); EST GLOMERULAR FILTRATION RATE 45.6 ML/MIN; MAGNESIUM 2.5 mg/dL (1.6-2.3); Potassium 4.2 mmol/L (3.5-5.1); Total Protein 6.4 g/dL (6.3-8.2)
[2022-01-18] MEDS ORDERED: solu-MEDROL ONE (06:04)
[2022-01-18] MEDS ORDERED: Sterile H2O 10 ml IJ ONE (06:04)
[2022-01-18] MEDS: solu-MEDROL 60 MG, Sterile H2O 10 ml 2 ML IV SCH ×8 (06:09→23:33)
[2022-01-18] MEDS: PATIENT OWN MEDICATION IH SCH (07:11)
[2022-01-18] MEDS ORDERED: Miralax Powder 17GM PACKET PO PRN (08:47)
--- NOTE | 2022-01-18 09:02 | PCM.HP ---
History of Present Illness - Chief Complaint Chief Complaint: COPD Exac, CRD, UTI, CP History of Present Illness: is a 66 year old female.developing acute on chronic Shortness of Breath last evening similar to when she had a Pulmonary Embolism a few yrs ago. For that she is on prophylactic Eliqus BID. Hx of tachycardia on a med for this but no prior FL or stent reported. No fever or N/V or abd pain but some sharp pleuritic CP. Was also told she might have UTI and awaiting that result so we will also check UA. She reports a chronic need for IV rehydration and has an infusion port for this and was treated a day or so ago. Timing/Duration: today Activities at Onset: none Severity of Dyspnea-Max: moderate Severity of Dyspnea-Current: moderate Possible Cause: frequent episodes, chronic episodes Modifying Factors: Improves With: albuterol inhaler, coughing Associated Symptoms: anxiety, cough, chest pain/discomfort, painful breathing - Review of Systems Constitutional: No Fever, No Chills Eyes: No Symptoms Ears, Nose, & Throat: No Symptoms Respiratory: Cough, Orthopnea, Short Of Breath, Wheezing Cardiac: No Chest Pain, No Edema, No Syncope Abdominal/Gastrointestinal: No Abdominal Pain, No Nausea, No Vomiting, No Diarrhea Genitourinary Symptoms: No Dysuria Musculoskeletal: No Back Pain, No Neck Pain Skin: No Rash Neurological: No Dizziness, No Focal Weakness, No Sensory Changes Psychological: No Symptoms Endocrine: No Symptoms Hematologic/Lymphatic: No Symptoms Immunological/Allergic: No Symptoms Medications & Allergies Home Medications: Home Medication List ALPRAZolam 1 MG [Xanax 1 mg] 1 mg PO TID 02/17/13 [History Confirmed 01/18/22] Sennosides/Docusate Sodium [Senokot-S Tablet] 1 tab PO DAILY 04/25/15 [History Confirmed 01/18/22] Cetirizine HCl/Pseudoephedrine [Zyrtec-D Tablet] 1 each PO DAILY 02/03/16 [History Confirmed 01/18/22] Aspirin 81 mg PO DAILY 09/11/16 [History Confirmed 01/18/22] Levothyroxine Sodium 50 Mcg [Synthroid 50 Mcg] 50 mcg PO DAILY 07/06/17 [History Confirmed 01/18/22] Linaclotide [Linzess] 290 mcg PO DAILY 10/07/17 [History Confirmed 01/18/22] Dexlansoprazole [Dexilant] 60 mg PO DAILY 01/21/20 [History Confirmed 01/18/22] Apixaban [Eliquis] 5 mg PO BID 30 Days #80 tablet 01/23/20 [Rx Confirmed 01/18/22] Fluticasone/Umeclidin/Vilanter [Trelegy Ellipta 100-62.5-25] 200 units IH DAILY 03/01/20 [History Confirmed 01/18/22] Albuterol 2.5 mg/3 ml Neb [Proventil 2.5 mg/3 ml Neb] 2.5 mg IH QID 07/23/20 [History Confirmed 01/17/22] Phenazopyridine HCl 200 mg [Pyridium 200 mg] 200 mg PO TID #6 tablet 06/17/21 [Rx Confirmed 01/18/22] Magnesium Oxide 400 mg [Mag-Ox 400] 400 mg PO DAILY 09/29/21 [History Confirmed 01/18/22] dilTIAZem HCl [Diltiazem 24Hr ER (Cd)] 120 mg PO DAILY 09/29/21 [History Confirmed 01/18/22] Cyclobenzaprine HCl 5 mg PO QHS 01/18/22 [History Confirmed 01/18/22] Omeprazole/Sodium Bicarbonate [Omeprazole-Bicarb 40-1,100 Cap] 1 cap PO DAILY 01/18/22 [History Confirmed 01/18/22] Prucalopride Succinate [Motegrity] 1 mg PO DAILY 01/18/22 [History Confirmed 01/18/22] Allergies/Adverse Reactions: Allergies Allergy/AdvReac Type Severity Reaction Status Date / Time sumatriptan [From Imitrex] Allergy Intermediate Rash Verified 12/07/21 06:01 codeine Allergy Mild Rash Verified 12/07/21 06:01 nitrofurantoin Allergy Unknown Verified 12/07/21 06:01 [From Macrobid] sumatriptan succinate Allergy Verified 12/07/21 06:01 [From Imitrex] morphine AdvReac Severe Headache Verified 12/07/21 06:01 fentanyl AdvReac Intermediate Headache Verified 12/07/21 06:01 hydrocodone bitartrate AdvReac Mild Vomiting Verified 12/07/21 06:01 [From Vicodin] hydromorphone [From Dilaudid] AdvReac Mild pt states Verified 12/07/21 06:01 makes heache worse. - Past Medical History Past Medical History: Yes Neurological History: Migraines ENT History: Cataracts Cardiac History: No Pertinent History Respiratory History: Bronchitis, COPD, Pulmonary Embolism Endocrine Medical History: Hypothyroidism Musculoskelatal History: Osteoarthritis GI Medical History: GERD, Other History: Other Pyscho-Social History: Anxiety, Panic Disorder Reproductive Disorders: No Pertinent History Comment: frequent uti's, chronic pseudo obstruction, blood clot - Female History Are you now?: No - Past Surgical History Past Surgical History: Yes Neuro Surgical History: No Pertinent History Cardiac History: No Pertinent History Respiratory Surgery: No Pertinent History GI Surgical History: Cholecystectomy, Other Genitourinary Surgical Hx: No Pertinent History Musculskeletal Surgical Hx: No Pertinent History Female Surgical History: No Pertinent History Other Surgical History: all of large intestine removed - Social History Smoking Status: Never smoker Exposure to second hand smoke: No Alcohol: None Drug Use: none Significant Family History: no pertinent family hx - Physical Exam Vital Signs: Vital Signs - 24 hr Temp Pulse Resp BP Pulse Ox 01/18/22 08:00 96.9 F 85 18 99/60 91 L 01/18/22 07:11 86 18 91 L 01/18/22 04:00 97.8 F 87 22 90/53 92 L 01/18/22 02:47 89 L 01/18/22 01:24 89 20 97 01/18/22 00:54 97 F 96 H 22 118/59 97 01/18/22 00:28 94 L 01/18/22 00:02 87 22 104/62 95 01/17/22 23:01 89 24 112/77 94 L 01/17/22 22:07 89 22 112/77 95 01/17/22 21:27 100 H 18 101/67 98 01/17/22 20:48 99 H 20 95 01/17/22 20:34 98.3 F 103 H 22 109/88 95 General Appearance: mild distress, alert Neurologic Exam: alert, 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, cooperative, normal mood/affect, nml station & gait, sensation nml, No motor deficits Eye Exam: PERRL/EOMI, eyes nml inspection Ears, Nose, Throat Exam: normal ENT inspection, TMs normal, pharynx normal, moist mucous membranes Neck Exam: normal inspection, non-tender, supple, full range of motion Respiratory Exam: diminished breath sounds, crackles/rales, rhonchi, wheezing, No respiratory distress Cardiovascular Exam: regular rate/rhythm, normal heart sounds, normal peripheral pulses Gastrointestinal/Abdomen Exam: soft, normal bowel sounds, No tenderness, No mass Back Exam: normal inspection, normal range of motion, No CVA tenderness, No vertebral tenderness Extremity Exam: normal inspection, normal range of motion, pelvis stable Skin Exam: normal color, warm, dry, No rash Lymphatic Exam: No adenopathy Results - Labs Lab/Micro Results: Lab Results-Last 24 Hours 01/17/22 01/17/22 01/17/22 Range/Units 20:50 20:50 20:50 WBC 5.2 (4.0-10.5) x10^3/uL RBC 3.82 L (4.1-5.4) x10^6/uL Hgb 10.0 L (12.0-16.0) g/dL Hct 32.7 L (35-47) % MCV 85.6 (78-100) fL MCH 26.2 (26-32) pg MCHC 30.6 L (32-36) g/dL RDW 16.2 H (11.5-14.0) % Plt Count 199 (150-450) x10^3/uL MPV 10.5 (7.5-11.0) fL Gran % 68.5 H (36.0-66.0) % Immature Gran % (Auto) 0.6 H (0.00-0.4) % Nucleat RBC Rel Count 0.0 (0.00-0.1) % Eos # (Auto) 0.08 (0-0.5) x10^3/uL Immature Gran # (Auto) 0.03 (0.00-0.03) x10^3u/L Absolute Lymphs (auto) 1.09 (1.0-4.6) x10^3/uL Absolute Monos (auto) 0.41 (0.0-1.3) x10^3/uL Absolute Nucleated RBC 0.00 (0.00-0.01) x10^3u/L Lymphocytes % 21.1 L (24.0-44.0) % Monocytes % 7.9 (0.0-12.0) % Eosinophils % 1.5 (0.00-5.0) % Basophils % 0.4 (0.0-0.4) % Absolute Granulocytes 3.54 (1.4-6.9) x10^3/uL Basophils # 0.02 (0-0.4) x10^3/uL D-Dimer 0.22 (0.0-0.50) mg/L Sodium 139 (137-145) mmol/L Potassium 3.7 (3.5-5.1) mmol/L Chloride 116 H (98-107) mmol/L Carbon Dioxide 16 L* (22-30) mmol/L Anion Gap 10.4 (5-15) MEQ/L BUN 25 H (7-17) mg/dL Creatinine 1.30 H (0.52-1.04) mg/dL Estimated GFR 43.6 ML/MIN Glucose 124 H (74-106) mg/dL Lactic Acid (0.4-2.0) Calcium 8.4 (8.4-10.2) mg/dL Magnesium 1.4 L (1.6-2.3) mg/dL Total Bilirubin 0.30 (0.2-1.3) mg/dL AST 17 (14-36) U/L ALT 14 (0-35) U/L Alkaline Phosphatase 112 (38-126) U/L Troponin I (0.000-0.034) ng/mL NT-Pro-B Natriuret Pep 79.6 (0-900) pg/mL Serum Total Protein 6.6 (6.3-8.2) g/dL Albumin 3.7 (3.5-5.0) g/dL Urinalys Dipstick Clnc Urine Color (YELLOW) Urine Appearance (CLEAR) Urine pH (5-6) Ur Specific Antlers (1.005-1.025) POC Urine Protein Conf (Negative) Urine Ketones (NEGATIVE) Urine Nitrite (NEGATIVE) Urine Bilirubin (NEGATIVE) Urine Urobilinogen (0-1) mg/dL Urine Leukocytes (NEGATIVE) Urine WBC (Auto) (0-5) /HPF Urine RBC (Auto) (0-2) /HPF U Hyaline Cast (Auto) (0-2) /LPF U Epithel Cells (Auto) (FEW) /HPF Urine Bacteria (Auto) (NEGATIVE) /HPF Urine RBC (0-5) Aroldo/ul Urine Mucus (Auto) (NEGATIVE) /HPF Ur Culture Indicated? Urine Glucose (NEGATIVE) mg/dL Influenza Type A Ag (NEGATIVE) Influenza Type B Ag (NEGATIVE) RSV (PCR) (Negative) SARS-CoV-2 (PCR) (NEGATIVE) 01/17/22 01/17/22 01/17/22 Range/Units 20:50 20:50 20:55 WBC (4.0-10.5) x10^3/uL RBC (4.1-5.4) x10^6/uL Hgb (12.0-16.0) g/dL Hct (35-47) % MCV (78-100) fL MCH (26-32) pg MCHC (32-36) g/dL RDW (11.5-14.0) % Plt Count (150-450) x10^3/uL MPV (7.5-11.0) fL Gran % (36.0-66.0) % Immature Gran % (Auto) (0.00-0.4) % Nucleat RBC Rel Count (0.00-0.1) % Eos # (Auto) (0-0.5) x10^3/uL Immature Gran # (Auto) (0.00-0.03) x10^3u/L Absolute Lymphs (auto) (1.0-4.6) x10^3/uL Absolute Monos (auto) (0.0-1.3) x10^3/uL Absolute Nucleated RBC (0.00-0.01) x10^3u/L Lymphocytes % (24.0-44.0) % Monocytes % (0.0-12.0) % Eosinophils % (0.00-5.0) % Basophils % (0.0-0.4) % Absolute Granulocytes (1.4-6.9) x10^3/uL Basophils # (0-0.4) x10^3/uL D-Dimer (0.0-0.50) mg/L Sodium (137-145) mmol/L Potassium (3.5-5.1) mmol/L Chloride (98-107) mmol/L Carbon Dioxide (22-30) mmol/L Anion Gap (5-15) MEQ/L BUN (7-17) mg/dL Creatinine (0.52-1.04) mg/dL Estimated GFR ML/MIN Glucose (74-106) mg/dL Lactic Acid 0.9 (0.4-2.0) Calcium (8.4-10.2) mg/dL Magnesium (1.6-2.3) mg/dL Total Bilirubin (0.2-1.3) mg/dL AST (14-36) U/L ALT (0-35) U/L Alkaline Phosphatase (38-126) U/L Troponin I < 0.012 (0.000-0.034) ng/mL NT-Pro-B Natriuret Pep (0-900) pg/mL Serum Total Protein (6.3-8.2) g/dL Albumin (3.5-5.0) g/dL Urinalys Dipstick Clnc Urine Color (YELLOW) Urine Appearance (CLEAR) Urine pH (5-6) Ur Specific Antlers (1.005-1.025) POC Urine Protein Conf (Negative) Urine Ketones (NEGATIVE) Urine Nitrite (NEGATIVE) Urine Bilirubin (NEGATIVE) Urine Urobilinogen (0-1) mg/dL Urine Leukocytes (NEGATIVE) Urine WBC (Auto) (0-5) /HPF Urine RBC (Auto) (0-2) /HPF U Hyaline Cast (Auto) (0-2) /LPF U Epithel Cells (Auto) (FEW) /HPF Urine Bacteria (Auto) (NEGATIVE) /HPF Urine RBC (0-5) Aroldo/ul Urine Mucus (Auto) (NEGATIVE) /HPF Ur Culture Indicated? Urine Glucose (NEGATIVE) mg/dL Influenza Type A Ag NEGATIVE (NEGATIVE) Influenza Type B Ag NEGATIVE (NEGATIVE) RSV (PCR) NEGATIVE (Negative) SARS-CoV-2 (PCR) NEGATIVE (NEGATIVE) 01/17/22 01/18/22 01/18/22 Range/Units 21:01 01:08 04:45 WBC (4.0-10.5) x10^3/uL RBC (4.1-5.4) x10^6/uL Hgb (12.0-16.0) g/dL Hct (35-47) % MCV (78-100) fL MCH (26-32) pg MCHC (32-36) g/dL RDW (11.5-14.0) % Plt Count (150-450) x10^3/uL MPV (7.5-11.0) fL Gran % (36.0-66.0) % Immature Gran % (Auto) (0.00-0.4) % Nucleat RBC Rel Count (0.00-0.1) % Eos # (Auto) (0-0.5) x10^3/uL Immature Gran # (Auto) (0.00-0.03) x10^3u/L Absolute Lymphs (auto) (1.0-4.6) x10^3/uL Absolute Monos (auto) (0.0-1.3) x10^3/uL Absolute Nucleated RBC (0.00-0.01) x10^3u/L Lymphocytes % (24.0-44.0) % Monocytes % (0.0-12.0) % Eosinophils % (0.00-5.0) % Basophils % (0.0-0.4) % Absolute Granulocytes (1.4-6.9) x10^3/uL Basophils # (0-0.4) x10^3/uL D-Dimer (0.0-0.50) mg/L Sodium (137-145) mmol/L Potassium (3.5-5.1) mmol/L Chloride (98-107) mmol/L Carbon Dioxide (22-30) mmol/L Anion Gap (5-15) MEQ/L BUN (7-17) mg/dL Creatinine (0.52-1.04) mg/dL Estimated GFR ML/MIN Glucose (74-106) mg/dL Lactic Acid (0.4-2.0) Calcium (8.4-10.2) mg/dL Magnesium (1.6-2.3) mg/dL Total Bilirubin (0.2-1.3) mg/dL AST (14-36) U/L ALT (0-35) U/L Alkaline Phosphatase (38-126) U/L Troponin I < 0.012 < 0.012 (0.000-0.034) ng/mL NT-Pro-B Natriuret Pep (0-900) pg/mL Serum Total Protein (6.3-8.2) g/dL Albumin (3.5-5.0) g/dL Urinalys Dipstick Clnc MAIN LAB Urine Color ORANGE A (YELLOW) Urine Appearance SLIGHTLY CLOUDY A (CLEAR) Urine pH 5.0 (5-6) Ur Specific Antlers >=1.030 A (1.005-1.025) POC Urine Protein Conf 100 A (Negative) Urine Ketones TRACE A (NEGATIVE) Urine Nitrite POSITIVE A (NEGATIVE) Urine Bilirubin SMALL A (NEGATIVE) Urine Urobilinogen 1 A (0-1) mg/dL Urine Leukocytes TRACE A (NEGATIVE) Urine WBC (Auto) 51-100 A (0-5) /HPF Urine RBC (Auto) 11-15 A (0-2) /HPF U Hyaline Cast (Auto) 0-2 (0-2) /LPF U Epithel Cells (Auto) RARE (FEW) /HPF Urine Bacteria (Auto) FEW A (NEGATIVE) /HPF Urine RBC MODERATE A (0-5) Aroldo/ul Urine Mucus (Auto) SLIGHT A (NEGATIVE) /HPF Ur Culture Indicated? YES Urine Glucose 100 A (NEGATIVE) mg/dL Influenza Type A Ag (NEGATIVE) Influenza Type B Ag (NEGATIVE) RSV (PCR) (Negative) SARS-CoV-2 (PCR) (NEGATIVE) 01/18/22 01/18/22 Range/Units 04:45 04:45 WBC 4.2 (4.0-10.5) x10^3/uL RBC 3.47 L (4.1-5.4) x10^6/uL Hgb 9.2 L (12.0-16.0) g/dL Hct 29.0 L (35-47) % MCV 83.6 (78-100) fL MCH 26.5 (26-32) pg MCHC 31.7 L (32-36) g/dL RDW 16.3 H (11.5-14.0) % Plt Count 176 (150-450) x10^3/uL MPV 10.7 (7.5-11.0) fL Gran % (36.0-66.0) % Immature Gran % (Auto) (0.00-0.4) % Nucleat RBC Rel Count (0.00-0.1) % Eos # (Auto) (0-0.5) x10^3/uL Immature Gran # (Auto) (0.00-0.03) x10^3u/L Absolute Lymphs (auto) (1.0-4.6) x10^3/uL Absolute Monos (auto) (0.0-1.3) x10^3/uL Absolute Nucleated RBC (0.00-0.01) x10^3u/L Lymphocytes % (24.0-44.0) % Monocytes % (0.0-12.0) % Eosinophils % (0.00-5.0) % Basophils % (0.0-0.4) % Absolute Granulocytes (1.4-6.9) x10^3/uL Basophils # (0-0.4) x10^3/uL D-Dimer (0.0-0.50) mg/L Sodium 137 (137-145) mmol/L Potassium 4.2 (3.5-5.1) mmol/L Chloride 115 H (98-107) mmol/L Carbon Dioxide 15 L* (22-30) mmol/L Anion Gap 11.7 (5-15) MEQ/L BUN 21 H (7-17) mg/dL Creatinine 1.25 H (0.52-1.04) mg/dL Estimated GFR 45.6 ML/MIN Glucose 189 H (74-106) mg/dL Lactic Acid (0.4-2.0) Calcium 8.1 L (8.4-10.2) mg/dL Magnesium 2.5 H (1.6-2.3) mg/dL Total Bilirubin 0.20 (0.2-1.3) mg/dL AST 17 (14-36) U/L ALT 16 (0-35) U/L Alkaline Phosphatase 96 (38-126) U/L Troponin I (0.000-0.034) ng/mL NT-Pro-B Natriuret Pep (0-900) pg/mL Serum Total Protein 6.4 (6.3-8.2) g/dL Albumin 3.4 L (3.5-5.0) g/dL Urinalys Dipstick Clnc Urine Color (YELLOW) Urine Appearance (CLEAR) Urine pH (5-6) Ur Specific Antlers (1.005-1.025) POC Urine Protein Conf (Negative) Urine Ketones (NEGATIVE) Urine Nitrite (NEGATIVE) Urine Bilirubin (NEGATIVE) Urine Urobilinogen (0-1) mg/dL Urine Leukocytes (NEGATIVE) Urine WBC (Auto) (0-5) /HPF Urine RBC (Auto) (0-2) /HPF U Hyaline Cast (Auto) (0-2) /LPF U Epithel Cells (Auto) (FEW) /HPF Urine Bacteria (Auto) (NEGATIVE) /HPF Urine RBC (0-5) Aroldo/ul Urine Mucus (Auto) (NEGATIVE) /HPF Ur Culture Indicated? Urine Glucose (NEGATIVE) mg/dL Influenza Type A Ag (NEGATIVE) Influenza Type B Ag (NEGATIVE) RSV (PCR) (Negative) SARS-CoV-2 (PCR) (NEGATIVE) - Radiology Impressions Radiology Exams & Impressions: Radiology Procedures Category Date Time Status CHEST 1 VIEW (PORTABLE) Stat Exams 01/17/22 20:36 Completed RAD/CHEST 1 VIEW (PORTABLE) Indication: Short of breath. Comparison: October 18, 2021 Portable chest demonstrates interval clearing right lung base. Again minimal fibrosis/scarring in both midlung gillis. No focal infiltrate, consolidation, or large effusion. Heart not enlarged again with mediastinal/right hilar calcified nodes and right Port-A-Cath. Bony thorax intact. Impression: Nonacute chest with chronic features. - Other Procedures and Tests Respiratory Therapy 01/17/22 21:10 Respiratory Therapy Assessment DAILY 01/18/22 00:50 Oxygen Nasal Cannula 3 lpm 01/18/22 01:20 Respiratory MDI UD Assessment/Plan (1) Acute exacerbation of chronic bronchitis Current Visit: Yes Status: Acute Assessment & Plan: Chief Complaint Diagnosis COPD Exac, CRD, UTI, CP Allergies Allergy/AdvReac Type Severity Reaction Status Date / Time sumatriptan [From Imitrex] Allergy Intermediate Rash Verified 12/07/21 06:01 codeine Allergy Mild Rash Verified 12/07/21 06:01 nitrofurantoin Allergy Unknown Verified 12/07/21 06:01 [From Macrobid] sumatriptan succinate Allergy Verified 12/07/21 06:01 [From Imitrex] morphine AdvReac Severe Headache Verified 12/07/21 06:01 fentanyl AdvReac Intermediate Headache Verified 12/07/21 06:01 hydrocodone bitartrate AdvReac Mild Vomiting Verified 12/07/21 06:01 [From Vicodin] hydromorphone [From Dilaudid] AdvReac Mild pt states Verified 12/07/21 06:01 makes heache worse. Vital Signs (Last 24 hours) Temp Pulse Resp BP Pulse Ox 01/18/22 08:00 96.9 F 85 18 99/60 91 L 01/18/22 07:11 86 18 91 L 01/18/22 04:00 97.8 F 87 22 90/53 92 L 01/18/22 02:47 89 L 01/18/22 01:24 89 20 97 01/18/22 00:54 97 F 96 H 22 118/59 97 01/18/22 00:28 94 L 01/18/22 00:02 87 22 104/62 95 01/17/22 23:01 89 24 112/77 94 L 01/17/22 22:07 89 22 112/77 95 01/17/22 21:27 100 H 18 101/67 98 01/17/22 20:48 99 H 20 95 01/17/22 20:34 98.3 F 103 H 22 109/88 95 Home Medications Medication Instructions Recorded Confirmed Last Taken Type Cyclobenzaprine HCl 5 mg PO QHS 01/18/22 01/18/22 01/17/22 20:00 History Omeprazole/Sodium Bicarbonate 1 cap PO DAILY 01/18/22 01/18/22 01/17/22 10:00 History [Omeprazole-Bicarb 40-1,100 Cap] Prucalopride Succinate [Motegrity] 1 mg PO DAILY 01/18/22 01/18/22 01/17/22 10:00 History Current Medications Generic Name Dose Route Start Last Admin Trade Name Brendonq PRN Reason Stop Dose Admin Albuterol Sulfate 2 puff 01/18/22 01:19 Albuterol Common Canister Inhaler 02/17/22 01:18 Q4H PRN PRN SHORTNESS OF BREATH/WHEEZING Albuterol/Ipratropium 3 ml 01/18/22 01:16 01/18/22 07:11 Ipratropium/Albuterol Sulfate 3 Ml Ampul.Neb 02/17/22 00:59 3 ml Q6HRT JENNIFER Administration Apixaban 5 mg 01/18/22 10:00 Apixaban 2.5 Mg Tablet PO 02/17/22 09:59 BID JENNIFER Methylprednisolone Sodium 0 mg 01/18/22 06:00 01/18/22 06:09 Succinate 60 mg/ Sterile Water IV 02/17/22 05:59 60 mg 2 ml Q6HT JENNIFER Administration Famotidine 20 mg 01/18/22 10:00 Famotidine 20 Mg/1 Vial IV 02/17/22 09:59 Q12HT JENNIFER Sodium Chloride 1,000 mls @ 100 mls/hr 01/18/22 00:50 01/18/22 02:28 Sodium Chloride 0.45% 1000 Ml IV 02/17/22 00:49 100 mls/hr .Q10H JENNIFER Administration Ceftriaxone Sodium/Dextrose 1 g in 50 mls @ 100 mls/hr 01/18/22 22:00 Rocephin 1 Gm-D5w 50 Ml Bag IV 01/21/22 21:59 QPM JENNIFER Azithromycin 500 mg in 250 mls @ 250 mls/hr 01/18/22 10:00 Zithromax 500 Mg/ 250 Ml Nacl Premix IV 02/17/22 09:59 Q24H10 [facility] Insulin Human Lispro 0 unit 01/18/22 00:50 Insulin Lispro 1 Unit SQ 02/17/22 00:49 UD PRN HYPERGLYCEMIA Trelegy Inhaler 1 each 01/18/22 07:00 IH 02/17/22 06:59 0700 JENNIFER Polyethylene Glycol 17 gm 01/18/22 08:47 Polyethylene Glycol 3350 17 Gm Packet PO 02/17/22 08:46 QDP PRN CONSTIPATION Discontinued Medications Generic Name Dose Route Start Last Admin Trade Name Freq PRN Reason Stop Dose Admin Albuterol/Ipratropium 3 ml 01/17/22 20:35 01/17/22 20:48 Ipratropium/Albuterol Sulfate 3 Ml Ampul.Neb 01/17/22 20:36 3 ml STAT ONE Administration Albuterol/Ipratropium Confirm 01/17/22 20:46 Ipratropium/Albuterol Sulfate 3 Ml Ampul.Neb Administered 01/17/22 20:47 Dose 3 ml IH .STK-MED ONE Albuterol/Ipratropium 3 ml 01/18/22 03:00 Ipratropium/Albuterol Sulfate 3 Ml Ampul.Neb 02/17/22 02:59 Q4HRT [facility] Methylprednisolone Sodium 0 mg 01/17/22 20:35 01/17/22 20:48 Succinate 125 mg/ Sterile IV 01/17/22 20:36 125 mg Water 2 ml STAT ONE Administration Sodium Chloride 1,000 mls @ 100 mls/hr 01/17/22 20:45 01/17/22 20:46 Sodium Chloride 0.9% 1000 Ml IV 02/16/22 20:44 100 mls/hr .Q10H JENNIFER Administration Ceftriaxone Sodium/Dextrose 1 g in 50 mls @ 100 mls/hr 01/17/22 23:38 01/18/22 00:09 Rocephin 1 Gm-D5w 50 Ml Bag IV 01/18/22 00:07 Infused STAT STA Infusion Ceftriaxone Sodium/Dextrose Confirm 01/17/22 23:40 Rocephin 1 Gm-D5w 50 Ml Bag Administered 01/17/22 23:41 Dose 1 g in 50 mls @ ud IV .STK-MED ONE Sodium Chloride Confirm 01/17/22 20:43 Sodium Chloride 0.9% 1000 Ml Administered 01/17/22 20:44 Dose 1,000 mls @ ud .ROUTE .STK-MED ONE Magnesium Sulfate/Water 2 gm in 50 mls @ 100 mls/hr 01/18/22 00:50 01/18/22 08:12 Magnesium Sulf 2 G/50 Ml Bag IV 01/18/22 01:19 Not Given ONCE ONE Magnesium Sulfate/Dextrose Confirm 01/18/22 01:42 Magnesium 1 Gm / 100 Ml D5w Administered 01/18/22 01:43 Dose 200 mls @ ud IV .STK-MED ONE Magnesium Sulfate/Dextrose 100 mls @ 100 mls/hr 01/18/22 02:30 01/18/22 03:06 Magnesium 1 Gm / 100 Ml D5w IV 01/18/22 04:29 100 mls/hr Q1H JENNIFER Administration Lorazepam 1 mg 01/17/22 20:49 01/17/22 21:08 Lorazepam 1 Mg Tablet PO 01/17/22 20:50 1 mg STAT ONE Administration Lorazepam Confirm 01/17/22 21:07 Lorazepam 1 Mg Tablet Administered 01/17/22 21:08 Dose 1 mg .ROUTE .STK-MED ONE Methylprednisolone Sodium Succinate Confirm 01/17/22 20:43 Methylprednis Sod Succ 125 Mg/2 Ml Vial Administered 01/17/22 20:44 Dose 125 mg .ROUTE .STK-MED ONE Methylprednisolone Sodium Succinate Confirm 01/18/22 06:04 Methylprednis Sod Succ 125 Mg/2 Ml Vial Administered 01/18/22 06:05 Dose 125 mg .ROUTE .STK-MED ONE Sterile Water Confirm 01/17/22 20:43 Water For Injection,Sterile 10 Ml Vial Administered 01/17/22 20:44 Dose 10 ml IJ .STK-MED ONE Sterile Water Confirm 01/18/22 06:04 Water For Injection,Sterile 10 Ml Vial Administered 01/18/22 06:05 Dose 10 ml IJ .STK-MED ONE Intake & Output (Last 24 hours) 01/15/22 01/16/22 01/17/22 01/18/22 11:59 11:59 11:59 11:59 Intake Total 881 Output Total 100 Balance 781 Weight 83.4 kg Microbiology Results (Last 24 hours) 01/17/22 21:01 Urine, Void Urine Culture - Pending Laboratory Results (Last 24 hours) 01/18/22 01/18/22 01/18/22 04:45 04:45 04:45 WBC 4.2 RBC 3.47 L Hgb 9.2 L Hct 29.0 L MCV 83.6 MCH 26.5 MCHC 31.7 L RDW 16.3 H Plt Count 176 MPV 10.7 Gran % Immature Gran % (Auto) Nucleat RBC Rel Count Eos # (Auto) Immature Gran # (Auto) Absolute Lymphs (auto) Absolute Monos (auto) Absolute Nucleated RBC Lymphocytes % Monocytes % Eosinophils % Basophils % Absolute Granulocytes Basophils # D-Dimer Sodium 137 Potassium 4.2 Chloride 115 H Carbon Dioxide 15 L* Anion Gap 11.7 BUN 21 H Creatinine 1.25 H Estimated GFR 45.6 Glucose 189 H Lactic Acid Calcium 8.1 L Magnesium 2.5 H Total Bilirubin 0.20 AST 17 ALT 16 Alkaline Phosphatase 96 Troponin I < 0.012 NT-Pro-B Natriuret Pep Serum Total Protein 6.4 Albumin 3.4 L Urinalys Dipstick Clnc Urine Color Urine Appearance Urine pH Ur Specific Antlers POC Urine Protein Conf Urine Ketones Urine Nitrite Urine Bilirubin Urine Urobilinogen Urine Leukocytes Urine WBC (Auto) Urine RBC (Auto) U Hyaline Cast (Auto) U Epithel Cells (Auto) Urine Bacteria (Auto) Urine RBC Urine Mucus (Auto) Ur Culture Indicated? Urine Glucose Influenza Type A Ag Influenza Type B Ag RSV (PCR) SARS-CoV-2 (PCR) 01/18/22 01/17/22 01/17/22 01:08 21:01 20:55 WBC RBC Hgb Hct MCV MCH MCHC RDW Plt Count MPV Gran % Immature Gran % (Auto) Nucleat RBC Rel Count Eos # (Auto) Immature Gran # (Auto) Absolute Lymphs (auto) Absolute Monos (auto) Absolute Nucleated RBC Lymphocytes % Monocytes % Eosinophils % Basophils % Absolute Granulocytes Basophils # D-Dimer Sodium Potassium Chloride Carbon Dioxide Anion Gap BUN Creatinine Estimated GFR Glucose Lactic Acid 0.9 Calcium Magnesium Total Bilirubin AST ALT Alkaline Phosphatase Troponin I < 0.012 NT-Pro-B Natriuret Pep Serum Total Protein Albumin Urinalys Dipstick Clnc MAIN LAB Urine Color ORANGE A Urine Appearance SLIGHTLY CLOUDY A Urine pH 5.0 Ur Specific Antlers >=1.030 A POC Urine Protein Conf 100 A Urine Ketones TRACE A Urine Nitrite POSITIVE A Urine Bilirubin SMALL A Urine Urobilinogen 1 A Urine Leukocytes TRACE A Urine WBC (Auto) 51-100 A Urine RBC (Auto) 11-15 A U Hyaline Cast (Auto) 0-2 U Epithel Cells (Auto) RARE Urine Bacteria (Auto) FEW A Urine RBC MODERATE A Urine Mucus (Auto) SLIGHT A Ur Culture Indicated? YES Urine Glucose 100 A Influenza Type A Ag Influenza Type B Ag RSV (PCR) SARS-CoV-2 (PCR) 01/17/22 01/17/22 01/17/22 20:50 20:50 20:50 WBC RBC Hgb Hct MCV MCH MCHC RDW Plt Count MPV Gran % Immature Gran % (Auto) Nucleat RBC Rel Count Eos # (Auto) Immature Gran # (Auto) Absolute Lymphs (auto) Absolute Monos (auto) Absolute Nucleated RBC Lymphocytes % Monocytes % Eosinophils % Basophils % Absolute Granulocytes Basophils # D-Dimer 0.22 Sodium Potassium Chloride Carbon Dioxide Anion Gap BUN Creatinine Estimated GFR Glucose Lactic Acid Calcium Magnesium Total Bilirubin AST ALT Alkaline Phosphatase Troponin I < 0.012 NT-Pro-B Natriuret Pep Serum Total Protein Albumin Urinalys Dipstick Clnc Urine Color Urine Appearance Urine pH Ur Specific Antlers POC Urine Protein Conf Urine Ketones Urine Nitrite Urine Bilirubin Urine Urobilinogen Urine Leukocytes Urine WBC (Auto) Urine RBC (Auto) U Hyaline Cast (Auto) U Epithel Cells (Auto) Urine Bacteria (Auto) Urine RBC Urine Mucus (Auto) Ur Culture Indicated? Urine Glucose Influenza Type A Ag NEGATIVE Influenza Type B Ag NEGATIVE RSV (PCR) NEGATIVE SARS-CoV-2 (PCR) NEGATIVE 01/17/22 01/17/22 20:50 20:50 WBC 5.2 RBC 3.82 L Hgb 10.0 L Hct 32.7 L MCV 85.6 MCH 26.2 MCHC 30.6 L RDW 16.2 H Plt Count 199 MPV 10.5 Gran % 68.5 H Immature Gran % (Auto) 0.6 H Nucleat RBC Rel Count 0.0 Eos # (Auto) 0.08 Immature Gran # (Auto) 0.03 Absolute Lymphs (auto) 1.09 Absolute Monos (auto) 0.41 Absolute Nucleated RBC 0.00 Lymphocytes % 21.1 L Monocytes % 7.9 Eosinophils % 1.5 Basophils % 0.4 Absolute Granulocytes 3.54 Basophils # 0.02 D-Dimer Sodium 139 Potassium 3.7 Chloride 116 H Carbon Dioxide 16 L* Anion Gap 10.4 BUN 25 H Creatinine 1.30 H Estimated GFR 43.6 Glucose 124 H Lactic Acid Calcium 8.4 Magnesium 1.4 L Total Bilirubin 0.30 AST 17 ALT 14 Alkaline Phosphatase 112 Troponin I NT-Pro-B Natriuret Pep 79.6 Serum Total Protein 6.6 Albumin 3.7 Urinalys Dipstick Clnc Urine Color Urine Appearance Urine pH Ur Specific Antlers POC Urine Protein Conf Urine Ketones Urine Nitrite Urine Bilirubin Urine Urobilinogen Urine Leukocytes Urine WBC (Auto) Urine RBC (Auto) U Hyaline Cast (Auto) U Epithel Cells (Auto) Urine Bacteria (Auto) Urine RBC Urine Mucus (Auto) Ur Culture Indicated? Urine Glucose Influenza Type A Ag Influenza Type B Ag RSV (PCR) SARS-CoV-2 (PCR) Orders (Last 24 hours) Category Date Time Status Bedrest with BRP/BSC ROUTINE Activity 01/18/22 00:50 Active Up With Assistance ROUTINE Activity 01/18/22 00:50 Active Civil Lawyer STAT Care 01/17/22 20:37 Completed Code Status Order ROUTINE Care 01/18/22 00:50 Active EKG-ER Only STAT Care 01/17/22 20:35 Completed Fall Protocol Q1H Care 01/18/22 00:50 Active IV Care Q6H Care 01/18/22 00:50 Active IV Insertion STAT Care 01/17/22 20:35 Completed Intake and Output Q12H Care 01/18/22 00:50 Active Oxygen-ED Only Nasal Cannula 3 lpm Care 01/17/22 20:[address] in Observation ROUTINE Care 01/18/22 00:50 Active Telemetry q6h Care 01/18/22 00:48 Active Vital Signs Q4H Care 01/18/22 00:50 Active Weight,Daily 0600 Care 01/18/22 00:50 Active Infection Control Consult ROUTINE Cons 01/18/22 01:23 Active Grinder Lap/Discharge Plan ROUTINE Cons 01/18/22 01:23 Active Heart-Healthy Diet Diet 01/18/22 Breakfast Active CHEST 1 VIEW (PORTABLE) Stat Exams 01/17/22 20:36 Completed CBC AM.LAB Lab 01/18/22 04:45 Completed CBC W DIFF Stat Lab 01/17/22 20:50 Completed CMP AM.LAB Lab 01/18/22 04:45 Completed CMP Stat Lab 01/17/22 20:50 Completed COVID/FLU/RSV Panel Stat Lab 01/17/22 20:50 Completed CULTURE,URINE Stat Lab 01/17/22 21:01 Received D-DIMER QUANTITATIVE Stat Lab 01/17/22 20:50 Completed HEMOGLOBIN A1C Routine Lab 01/18/22 08:32 Ordered Lactic Acid Stat Lab 01/17/22 20:55 Completed MAGNESIUM AM.LAB Lab 01/18/22 04:45 Completed MAGNESIUM Stat Lab 01/17/22 20:50 Completed NT PRO BNP Stat Lab 01/17/22 20:50 Completed TROPONIN Q4H Lab 01/17/22 20:50 Completed TROPONIN Q4H Lab 01/18/22 01:08 Completed TROPONIN Q4H Lab 01/18/22 04:45 Completed UA W/RFX CULTURE Stat Lab 01/17/22 21:01 Completed Albuterol Common Canister [Ventolin Common Canister* Med 01/18/22 01:19 Active ] 2 puff IH Q4H PRN PRN Albuterol/Ipratropium 3ml Neb* [DUONEB 0.5-3 MG/3 ml Med 01/17/22 20:46 Discontinued Neb] 3 ml IH .STK-MED ONE Albuterol/Ipratropium 3ml Neb* [DUONEB 0.5-3 MG/3 ml Med 01/18/22 03:00 Discontinued Neb] 3 ml IH Q4HRT Albuterol/Ipratropium 3ml Neb* [DUONEB 0.5-3 MG/3 ml Med 01/18/22 01:16 Active Neb] 3 ml IH Q6HRT Albuterol/Ipratropium 3ml Neb* [DUONEB 0.5-3 MG/3 ml Med 01/17/22 20:35 Discontinued Neb] 3 ml IH STAT ONE Apixaban [Eliquis 2.5 mg Tablet] Med 01/18/22 10:00 Active 5 mg PO BID Azithromycin 500 mg/250 ml [Zithromax 500 MG/ 250 ML Med 01/18/22 10:00 Active NaCl Premix] 500 mg in 250 ml IV Q24H10 Ceftriaxone 1 GM/50 ML PREMIX* [ROCEPHIN 1 Gm-D5w 50 ml Med 01/18/22 22:00 Active Bag] 1 g in 50 ml IV QPM Ceftriaxone 1 GM/50 ML PREMIX* [ROCEPHIN 1 Gm-D5w 50 ml Med 01/17/22 23:38 Discontinued Bag] 1 g in 50 ml IV STAT Ceftriaxone 1 GM/50 ML PREMIX* [ROCEPHIN 1 Gm-D5w 50 ml Med 01/17/22 23:40 Discontinued Bag] 1 g in 50 ml IV UD Famotidine 20 mg Vial [Pepcid 20 MG VIAL] Med 01/18/22 10:00 Active 20 mg IV Q12HT Insulin Lispro [Humalog] Med 01/18/22 00:50 Active See Dose Instructions SQ UD PRN Lorazepam 1 mg [Ativan 1 MG] Med 01/17/22 21:07 Discontinued 1 mg .ROUTE .STK-MED ONE Lorazepam 1 mg [Ativan 1 MG] Med 01/17/22 20:49 Discontinued 1 mg PO STAT ONE Magnesium Sulfate 1 gm/100 ml* [Magnesium 1 Gm / 100 Ml Med 01/18/22 02:30 Discontinued D5W] 100 ml IV Q1H Magnesium Sulfate 1 gm/100 ml* [Magnesium 1 Gm / 100 Ml Med 01/18/22 01:42 Discontinued D5W] 200 ml IV UD Magnesium Sulfate in Water [Magnesium Sulf 2 G/50 ml Med 01/18/22 00:50 Discontinued Bag] 2 gm in 50 ml IV ONCE Methylprednis Sod Succ 125 mg* [solu-MEDROL] Med 01/17/22 20:43 Discontinued 125 mg .ROUTE .STK-MED ONE Methylprednis Sod Succ 125 mg* [solu-MEDROL] Med 01/18/22 06:04 Discontinued 125 mg .ROUTE .STK-MED ONE Methylprednis Sod Succ 125 mg* [solu-MEDROL] 125 mg Med 01/17/22 20:35 Discontinued Water For Injection,Sterile [Sterile H2O 10 ml] 2 ml IV STAT Methylprednis Sod Succ 125 mg* [solu-MEDROL] 60 mg Med 01/18/22 06:00 Active Water For Injection,Sterile [Sterile H2O 10 ml] 2 ml IV Q6HT NaCl 0.45% 1000 ml [Sodium Chloride 0.45% 1000 ML] 1, Med 01/18/22 00:50 Active 000 ml IV 100 mls/hr NaCl 0.9% 1000 ml [Sodium Chloride 0.9% 1000 ML] 1,000 Med 01/17/22 20:43 Discontinued ml .ROUTE UD NaCl 0.9% 1000 ml [Sodium Chloride 0.9% 1000 ML] 1,000 Med 01/17/22 20:45 Discontinued ml IV 100 mls/hr Patient Own Med [Patient Own Medication] Med 01/18/22 07:00 Active 1 each IH 0700 Polyethylene Glycol 3350 17 gm [Miralax Powder 17GM Med 01/18/22 08:47 Ordered PACKET] 17 gm PO QDP PRN Water For Injection,Sterile [Sterile H2O 10 ml] Med 01/17/22 20:43 Discontinued 10 ml IJ .STK-MED ONE Water For Injection,Sterile [Sterile H2O 10 ml] Med 01/18/22 06:04 Discontinued 10 ml IJ .STK-MED ONE Oxygen Nasal Cannula 3 lpm RT 01/18/22 00:50 Active Pulse Oximetry CONTINUOUS RT 01/18/22 00:50 Active RT Screen per Nursing Assess ONCE RT 01/18/22 01:23 Completed Respiratory MDI UD RT 01/18/22 01:20 Active Respiratory Therapy Assessment DAILY RT 01/17/22 21:10 Active Respiratory Therapy Consult ROUTINE RT 01/18/22 00:50 Completed Transfer Order Routine Transfer 01/18/22 Completed Patient Care Notes (Last 24 hours) 01/18/22 05:20 Nursing Note by Kimmy Pisano Pt's O2 sats 96% on 6L oxymask. Oxygen decreased to 4L oxymask, currently 95% Initialized on 01/18/22 05:20 - END OF NOTE 01/18/22 03:15 (created 01/18/22 03:59) Nursing Note by Kimmy Pisano When pt would go to sleep, her O2 continued to stay around 85%. O2 increased to 5 L. Sats continued to stay around 85-86%. Increased O2 to 6 L. Sats now 93% Initialized on 01/18/22 03:59 - END OF NOTE 01/18/22 02:35 Respiratory Note by Susanne Mcpherson RT called to pt bedside to evaluate pt for low SpO2. Upon arrival patient was found asleep with SpO2 at 87-84% on 2.5L nasal cannula which is her home O2 level. Pt was placed on 4L oxymask. SpO2 increased to 92%. Initialized on 01/18/22 02:35 - END OF NOTE 01/18/22 02:23 Nursing Note by Kimmy Pisano Clarified Magnesium order with Dr. Alexis. May give 2 Mg riders Initialized on 01/18/22 02:23 - END OF NOTE Code(s): J20.9 - ACUTE BRONCHITIS, UNSPECIFIED; J42 - UNSPECIFIED CHRONIC BRONCHITIS (2) Hypomagnesemia Current Visit: Yes Status: Acute Code(s): E83.42 - HYPOMAGNESEMIA (3) Acute UTI Current Visit: No Status: Acute Code(s): N39.0 - URINARY TRACT INFECTION, SITE NOT SPECIFIED (4) Acute on chronic renal insufficiency Current Visit: No Status: Acute Code(s): N28.9 - DISORDER OF KIDNEY AND URETER, UNSPECIFIED; N18.9 - CHRONIC KIDNEY DISEASE, UNSPECIFIED
[2022-01-18] MEDS: Pepcid 20 MG VIAL IV SCH ×2 (09:36→21:20)
[2022-01-18] MEDS: Zithromax 500 MG/ 250 ML NaCl Premix 500 MG/250 ML IVPB IV SCH (09:36)
[2022-01-18] MEDS: XANAX 1 MG PO SCH ×3 (09:42→21:20)
[2022-01-18] MEDS: MAG-OX 400 PO SCH (09:43)
[2022-01-18] MEDS: Cardizem CD PO SCH (09:43)
[2022-01-18] MEDS: SYNTHROID 50 MCG PO SCH (09:43)
[2022-01-18] MEDS: Senokot-S Tablet PO SCH (09:43)
[2022-01-18] MEDS: PYRIDIUM 200 MG PO SCH ×3 (09:43→21:23)
[2022-01-18] MEDS: ELIQUIS 2.5 MG TABLET PO SCH ×2 (09:44→18:41)
[2022-01-18] MEDS: ECOTRIN 81 MG PO SCH (09:44)
[2022-01-18] MEDS: CLARITIN-D 24HR TABLET PO SCH (09:44)
[2022-01-18] MEDS ORDERED: MEDICATION INTERVENTION MC SCH ×2 (09:45)
[2022-01-18] MEDS ORDERED: DEXLANSOPRAZOLE 60 MG PO SCH (10:00)
[2022-01-18] MEDS ORDERED: NON-FORMULARY ITEM (Linaclotide [Linzess] 290 MCG Capsule) PO SCH (10:00)
[2022-01-18] MEDS ORDERED: Protonix 40MG Tablet PO SCH (10:00)
[2022-01-18] MEDS ORDERED: CETIRIZINE HCL PO SCH (10:00)
[2022-01-18] MEDS ORDERED: PRUCALOPRIDE SUCCINATE 1 MG PO SCH (10:00)
[2022-01-18] MEDS ORDERED: PSEUDOEPHEDRINE PO SCH (10:00)
[2022-01-18] MEDS ORDERED: NON-FORMULARY ITEM (Aspirin [Aspirin] 81 MG Tablet) PO SCH (10:00)
[2022-01-18] MEDS: PHENERGAN 25 MG PO PRN (11:18)
[2022-01-18] MEDS: Robitussin-Dm Syrup PO PRN (12:31)
[2022-01-18] MEDS: PATIENT OWN MEDICATION PO SCH ×3 (14:44→18:42)
[2022-01-18] MEDS: Cyclobenzaprine 10 MG PO SCH (21:22)
[2022-01-18] MEDS: ROCEPHIN 1 Gm-D5w 50 ml Bag** 1 G/50 ML IVPB IV SCH (21:24)
[2022-01-18] MEDS ORDERED: NON-FORMULARY ITEM (Cyclobenzaprine Hcl [Cyclobenzaprine Hcl] 5 MG Tablet) PO SCH (22:00)
[2022-01-19] MEDS: DUONEB 0.5-3 MG/3 ml Neb IH SCH ×4 (00:57→18:59)
[2022-01-19] MEDS: solu-MEDROL 60 MG, Sterile H2O 10 ml 2 ML IV SCH ×6 (05:00→17:45)
[2022-01-19 05:58] LABS: Absolute Neutrophil Ct (ANC) 10.28 x10^3/uL (1.4-6.9); Basophil (Absolute #) 0 x10^3/uL (0-0.4); Eosinophil (Absolute #) 0 x10^3/uL (0-0.5); Hematocrit 28.5 % (35-47); Hemoglobin 8.8 g/dL (12.0-16.0); Lymphocyte (Absolute #) 0.32 x10^3/uL (1.0-4.6); Mean Cell Volume 84.8 fL (78-100); Mean Corpuscular Hemoglobin 26.2 pg (26-32); Mean Corpuscular Hgb Concent. 30.9 g/dL (32-36); Mean Platelet Volume 11.5 fL (7.5-11.0); Monocyte (Absolute #) 0.13 x10^3/uL (0.0-1.3); Monocytes % 1.2 % (0.0-12.0); Neutrophil % 95.4 % (36.0-66.0); Platelet Count 180 x10^3/uL (150-450); Red Blood Count 3.36 x10^6/uL (4.1-5.4); Red Cell Distribution Width 16.7 % (11.5-14.0); White Blood Count 10.8 x10^3/uL (4.0-10.5)
[2022-01-19 06:07] LABS: ANION GAP 11.2 MEQ/L (5-15); Calcium 8.2 mg/dL (8.4-10.2); Creatinine 1 1.11 mg/dL (0.52-1.04); EST GLOMERULAR FILTRATION RATE 52.3 ML/MIN; Potassium 3.5 mmol/L (3.5-5.1)
[2022-01-19 06:19] LABS: Slide Review 1 YES
[2022-01-19] MEDS: PATIENT OWN MEDICATION IH SCH (07:24)
[2022-01-19] MEDS: XANAX 1 MG PO SCH ×4 (09:17→22:27)
[2022-01-19] MEDS: SYNTHROID 50 MCG PO SCH (09:18)
[2022-01-19] MEDS: Senokot-S Tablet PO SCH (09:18)
[2022-01-19] MEDS: ELIQUIS 2.5 MG TABLET PO SCH ×2 (09:18→22:07)
[2022-01-19] MEDS: MAG-OX 400 PO SCH (09:19)
[2022-01-19] MEDS: PHENERGAN 25 MG PO PRN (09:19)
[2022-01-19] MEDS: PYRIDIUM 200 MG PO SCH ×3 (09:19→22:07)
[2022-01-19] MEDS: Pepcid 20 MG VIAL IV SCH ×2 (09:20→21:27)
[2022-01-19] MEDS: ECOTRIN 81 MG PO SCH (09:20)
[2022-01-19] MEDS: PATIENT OWN MEDICATION PO SCH ×4 (09:21→22:09)
[2022-01-19] MEDS: Cardizem CD PO SCH (09:21)
[2022-01-19] MEDS: Zithromax 500 MG/ 250 ML NaCl Premix 500 MG/250 ML IVPB IV SCH (09:32)
[2022-01-19] MEDS: Robitussin-Dm Syrup PO PRN (15:50)
--- NOTE | 2022-01-19 16:42 | PCM.NOTE ---
Date and Time: 01/19/22 164 Subjective Assessment: Patient has been weak and unsteady per nursing drinking but not eating much. Large volume of watery stool today no melana or red. Denies abdominal pain. No dyspnea at rest. Has coughing spells which is common for patient. Objective Exam General Appearance: lethargy Neurologic Exam: alert (answers questions appropriately but earlier nurse states she was confused and thought she was at her apt.) Skin Exam: pale Respiratory Exam: diminished breath sounds (no ronchi), No rhonchi, No wheezing Cardiovascular Exam: tachycardia (regular,rate 90) Gastrointestinal/Abdomen Exam: soft, tenderness (right flank and RCVA) Extremity Exam: normal inspection Back Exam: CVA tenderness (right) OBJECTIVE DATA Vital Signs: Vital Signs - 24 hr Temp Pulse Resp BP Pulse Ox 01/19/22 16:00 97.7 F 90 20 88/51 94 L 01/19/22 13:39 92 H 18 96 01/19/22 11:41 97.9 F 95 H 16 109/59 94 L 01/19/22 08:00 97.8 F 92 H 16 92/54 94 L 01/19/22 07:24 93 H 16 87 L 01/19/22 04:00 97.9 F 76 20 115/68 92 L 01/19/22 00:57 102 H 20 96 01/18/22 23:21 97.7 F 104 H 18 104/62 91 L 01/18/22 20:00 97.3 F 107 H 21 112/59 94 L 01/18/22 18:43 106 H 20 93 L Pain Assessment - Last Documented Pain Intensity 0 Intake and Output: Intake & Output 01/17/22 01/18/22 01/19/22 01/20/22 11:59 11:59 11:59 11:59 Intake Total 1301 3554 Output Total 750 200 Balance 551 3354 Weight 83.4 kg 83.4 kg Lab Results: Lab Results-Last 24 Hours 01/19/22 01/19/22 Range/Units 04:45 05:49 WBC 10.8 H (4.0-10.5) x10^3/uL RBC 3.36 L (4.1-5.4) x10^6/uL Hgb 8.8 L (12.0-16.0) g/dL Hct 28.5 L (35-47) % MCV 84.8 (78-100) fL MCH 26.2 (26-32) pg MCHC 30.9 L (32-36) g/dL RDW 16.7 H (11.5-14.0) % Plt Count 180 (150-450) x10^3/uL MPV 11.5 H (7.5-11.0) fL Gran % 95.4 H (36.0-66.0) % Immature Gran % (Auto) 0.4 (0.00-0.4) % Nucleat RBC Rel Count 0.0 (0.00-0.1) % Eos # (Auto) 0 (0-0.5) x10^3/uL Immature Gran # (Auto) 0.04 H (0.00-0.03) x10^3u/L Absolute Lymphs (auto) 0.32 L (1.0-4.6) x10^3/uL Absolute Monos (auto) 0.13 (0.0-1.3) x10^3/uL Absolute Nucleated RBC 0.00 (0.00-0.01) x10^3u/L Lymphocytes % 3.0 L (24.0-44.0) % Monocytes % 1.2 (0.0-12.0) % Eosinophils % 0.0 (0.00-5.0) % Basophils % 0.0 (0.0-0.4) % Absolute Granulocytes 10.28 H (1.4-6.9) x10^3/uL Basophils # 0 (0-0.4) x10^3/uL Sodium 138 (137-145) mmol/L Potassium 3.5 (3.5-5.1) mmol/L Chloride 114 H (98-107) mmol/L Carbon Dioxide 16 L* (22-30) mmol/L Anion Gap 11.2 (5-15) MEQ/L BUN 16 (7-17) mg/dL Creatinine 1.11 H (0.52-1.04) mg/dL Estimated GFR 52.3 ML/MIN Glucose 180 H (74-106) mg/dL Calcium 8.2 L (8.4-10.2) mg/dL Slides for Path Review YES Radiology Exams: Radiology Procedures Category Date Time Status CHEST 1 VIEW (PORTABLE) Stat Exams 01/17/22 20:36 Completed Multi-Disciplinary Progress Notes: Multi-Disciplinary Progress Notes 01/19/22 11:14 Case Management Note by Lesa Nelson ATTEMPTED TO S/W PATIENT ABOUT NEEDS AT [place]. PATIENT VERY CONFUSED AND UNABLE TO ASSIST WITH QUESTIONS. ATTEMPTED TO CALL [facility] AND NO ANSWER. LEFT MESSAGE ASKING FOR RETURN CALL. Initialized on 01/19/22 11:14 - END OF NOTE Assessment/Plan (1) Pyelonephritis of right kidney Current Visit: Yes Status: Acute Assessment & Plan: Culture positive for gram neg bug pending ID/Sens Code(s): N12 - TUBULO-INTERSTITIAL NEPHRITIS, NOT SPCF ACUTE OR CHRONIC (2) Diarrhea Current Visit: No Status: Acute Assessment & Plan: test Cdif Code(s): R19.7 - DIARRHEA, UNSPECIFIED (3) Anemia Current Visit: No Status: Chronic Qualifiers: Anemia type: unspecified type Assessment & Plan: Chronic anemia with Hgb usually 10-11 now at 8. Hemetest stool ,CBC in AM Code(s): D64.9 - ANEMIA, UNSPECIFIED
[2022-01-19] MEDS: SODIUM CHLORIDE 0.45% W/ 20 mEq KCL 1,000 ML IV SCH (19:36)
[2022-01-19] MEDS: CLARITIN-D 24HR TABLET PO SCH (19:37)
[2022-01-19] MEDS: ROCEPHIN 1 Gm-D5w 50 ml Bag** 1 G/50 ML IVPB IV SCH (21:27)
[2022-01-19] MEDS: Cyclobenzaprine 10 MG PO SCH ×2 (22:07→22:19)
[2022-01-19] MEDS: NYSTOP 30 GM CREAM TOP SCH (22:08)
[2022-01-20] MEDS: solu-MEDROL 60 MG, Sterile H2O 10 ml 2 ML IV SCH ×10 (00:16→23:30)
[2022-01-20] MEDS: DUONEB 0.5-3 MG/3 ml Neb IH SCH ×4 (01:30→18:31)
[2022-01-20] MEDS: Cyclobenzaprine 10 MG PO SCH ×2 (01:31→22:40)
[2022-01-20] MEDS: SODIUM CHLORIDE 0.45% W/ 20 mEq KCL 1,000 ML IV SCH ×2 (05:53→17:48)
[2022-01-20 07:55] LABS: Absolute Neutrophil Ct (ANC) 12.49 x10^3/uL (1.4-6.9); Basophil (Absolute #) 0.01 x10^3/uL (0-0.4); Eosinophil (Absolute #) 0 x10^3/uL (0-0.5); Hematocrit 28.8 % (35-47); Lymphocyte (Absolute #) 0.51 x10^3/uL (1.0-4.6); Lymphocytes % 3.8 % (24.0-44.0); Mean Cell Volume 85.5 fL (78-100); Mean Corpuscular Hemoglobin 26.7 pg (26-32); Mean Corpuscular Hgb Concent. 31.3 g/dL (32-36); Mean Platelet Volume 10.8 fL (7.5-11.0); Monocyte (Absolute #) 0.18 x10^3/uL (0.0-1.3); Monocytes % 1.4 % (0.0-12.0); Neutrophil % 93.9 % (36.0-66.0); Platelet Count 214 x10^3/uL (150-450); Red Blood Count 3.37 x10^6/uL (4.1-5.4); Red Cell Distribution Width 17.1 % (11.5-14.0); White Blood Count 13.3 x10^3/uL (4.0-10.5)
[2022-01-20] MEDS: PATIENT OWN MEDICATION IH SCH (07:55)
[2022-01-20 09:02] LABS: ALBUMIN 3.5 g/dL (3.5-5.0); ANION GAP 13.5 MEQ/L (5-15); BILIRUBIN,TOTAL 0.3 mg/dL (0.2-1.3); Calcium 8.3 mg/dL (8.4-10.2); Creatinine 1 1.13 mg/dL (0.52-1.04); EST GLOMERULAR FILTRATION RATE 51.2 ML/MIN; MAGNESIUM 1.9 mg/dL (1.6-2.3); Potassium 3.8 mmol/L (3.5-5.1); Total Protein 6.3 g/dL (6.3-8.2)
[2022-01-20] MEDS: ELIQUIS 2.5 MG TABLET PO SCH ×2 (09:41→22:40)
[2022-01-20] MEDS: ECOTRIN 81 MG PO SCH (09:41)
[2022-01-20] MEDS: MAG-OX 400 PO SCH (09:42)
[2022-01-20] MEDS: Cardizem CD PO SCH (09:42)
[2022-01-20] MEDS: SYNTHROID 50 MCG PO SCH (09:42)
[2022-01-20] MEDS: XANAX 1 MG PO SCH ×2 (09:42→22:40)
[2022-01-20] MEDS: Senokot-S Tablet PO SCH (09:43)
[2022-01-20] MEDS: NYSTOP 30 GM CREAM TOP SCH ×2 (09:43→22:50)
[2022-01-20] MEDS: PATIENT OWN MEDICATION PO SCH ×4 (09:44→22:51)
[2022-01-20] MEDS: Pepcid 20 MG VIAL IV SCH ×2 (09:45→22:39)
[2022-01-20 11:34] LABS: Slide Review 1 YES
[2022-01-20] MEDS: Zyvox 600 MG IV PREMIX*** 300 ML IV SCH ×2 (13:58→22:52)
[2022-01-20] MEDS: ROCEPHIN 1 Gm-D5w 50 ml Bag** 1 G/50 ML IVPB IV SCH (22:40)
[2022-01-20] MEDS: Robitussin-Dm Syrup PO PRN (23:31)
[2022-01-21 00:29] VITALS: BP 130/67
[2022-01-21] MEDS: DUONEB 0.5-3 MG/3 ml Neb IH SCH ×2 (00:30→06:40)
[2022-01-21 05:34] LABS: Absolute Neutrophil Ct (ANC) 9.24 x10^3/uL (1.4-6.9); Basophil (Absolute #) 0.02 x10^3/uL (0-0.4); Eosinophil (Absolute #) 0 x10^3/uL (0-0.5); Hematocrit 33.1 % (35-47); Hemoglobin 9.9 g/dL (12.0-16.0); Lymphocyte (Absolute #) 0.41 x10^3/uL (1.0-4.6); Lymphocytes % 4.1 % (24.0-44.0); Mean Cell Volume 89.5 fL (78-100); Mean Corpuscular Hemoglobin 26.8 pg (26-32); Mean Corpuscular Hgb Concent. 29.9 g/dL (32-36); Mean Platelet Volume 11.5 fL (7.5-11.0); Monocyte (Absolute #) 0.18 x10^3/uL (0.0-1.3); Monocytes % 1.8 % (0.0-12.0); Neutrophil % 92.7 % (36.0-66.0); Platelet Count 214 x10^3/uL (150-450); Red Cell Distribution Width 17.3 % (11.5-14.0)
[2022-01-21] MEDS ORDERED: solu-MEDROL ONE (05:36)
[2022-01-21] MEDS: solu-MEDROL 60 MG, Sterile H2O 10 ml 2 ML IV SCH ×2 (05:43)
[2022-01-21 06:20] LABS: ALBUMIN 3.7 g/dL (3.5-5.0); ANION GAP 14.9 MEQ/L (5-15); BILIRUBIN,TOTAL 0.5 mg/dL (0.2-1.3); Calcium 8.8 mg/dL (8.4-10.2); Potassium 3.9 mmol/L (3.5-5.1); Total Protein 6.3 g/dL (6.3-8.2)
[2022-01-21 06:43] VITALS: PULSE 94
[2022-01-21 07:50] LABS: Slide Review 1 YES
[2022-01-21 08:52] VITALS: O2SAT 93
--- NOTE | 2022-01-21 09:22 | PCM.DCORD ---
- Discharge Disposition: Home, Self-Care Condition: Good Prescriptions: New Linezolid 600 mg PO BID #14 tablet Continue ALPRAZolam 1 MG [Xanax 1 mg] 1 mg PO TID Sennosides/Docusate Sodium [Senokot-S Tablet] 1 tab PO DAILY Cetirizine HCl/Pseudoephedrine [Zyrtec-D Tablet] 1 each PO DAILY Aspirin 81 mg PO DAILY Levothyroxine Sodium 50 Mcg [Synthroid 50 Mcg] 50 mcg PO DAILY Linaclotide [Linzess] 290 mcg PO DAILY Dexlansoprazole [Dexilant] 60 mg PO DAILY Apixaban [Eliquis] 5 mg PO BID 30 Days #80 tablet Fluticasone/Umeclidin/Vilanter [Trelegy Ellipta 100-62.5-25] 200 units IH DAILY Albuterol 2.5 mg/3 ml Neb [Proventil 2.5 mg/3 ml Neb] 2.5 mg IH QID Phenazopyridine HCl 200 mg [Pyridium 200 mg] 200 mg PO TID #6 tablet Magnesium Oxide 400 mg [Mag-Ox 400] 400 mg PO DAILY dilTIAZem HCl [Diltiazem 24Hr ER (Cd)] 120 mg PO DAILY Omeprazole/Sodium Bicarbonate [Omeprazole-Bicarb 40-1,100 Cap] 1 cap PO DAILY Prucalopride Succinate [Motegrity] 1 mg PO DAILY Promethazine HCl 25 mg [Phenergan 25 mg] 25 mg PO BIDPRN PRN PRN Reason: Nausea Discontinued Cyclobenzaprine HCl 5 mg PO QHS Instructions: Acute Bronchitis, Adult (DC), Chronic Obstructive Pulmonary Disease (COPD) (DC), Delirium (Confusion) (DC) Additional Instructions: WEAR 2L/NC AT HOME AT ALL TIMES Patient will not be alone agrees . She will be staying at her daughter [place] home and see Dr Perry tomorrow appt. Follow up with: LLUVIA PERRY DO [Primary Care Provider] - Forms: Discharge Instructions
--- NOTE | 2022-01-21 09:46 | PCM.DS ---
Discharge Summary Date of Admission: 01/18/22 00:48 Date of Discharge: 01/21/22 Admitting Physician: LASHANDA CORTES Primary Care Provider: LLUVIA PERRY DO Allergies Allergies sumatriptan [From Imitrex] Allergy (Intermediate, Verified 12/07/21 06:01) Rash codeine Allergy (Mild, Verified 12/07/21 06:01) Rash MAKES SICK nitrofurantoin [From Macrobid] Allergy (Unknown, Verified 12/07/21 06:01) sumatriptan succinate [From Imitrex] Allergy (Verified 12/07/21 06:01) morphine Adverse Reaction (Severe, Verified 12/07/21 06:01) Headache MIGRAINES fentanyl Adverse Reaction (Intermediate, Verified 12/07/21 06:01) Headache hydrocodone bitartrate [From Vicodin] Adverse Reaction (Mild, Verified 12/07/21 06:01) Vomiting hydromorphone [From Dilaudid] Adverse Reaction (Mild, Verified 12/07/21 06:01) pt states makes heache worse. Hospital Summary - Hospital Course Hospital Course: Patient was admitted through ER to [facility] with Dg COPD exacerbation with hypoxia and was started on Zithromax ,Rocephin and solumedrol. RT to follow. She is on night time O2 but qualifies for continuois O2 at this time. Urine culture positive for E.coli ,not ESBL and Enterococcus Faecalis which required Linezolid (sens to Nitrofurantoin but ptn allergic) . Antibiotic change - Zithromax dc'd and started Linezolid. Patient has chrionic complex medical issues due to short bowel syndrome ,interstitual cystitis with recurrent diarrhea/obstipation ,UTIs and recurrent volume depletion, also chronic anxiety/PTSD. Patimunir developed sundowners type of confusion that increased her night time anxiety. Morning of discharge she is at baseline ,understanding her need to not be alone upon discharge and has made arrangements to stay at her daughter Nayana' home. She will see me tomorrow at 11 am for a hospital follow up appt. Discussed plan with today's Hospitalist, Dr Nova and discharge planning - Vitals & Intake/Output Vital Signs: Vital Signs Temperature 97.5 F 01/21/22 00:00 Pulse Rate 94 H 01/21/22 06:40 Respiratory Rate 18 01/21/22 06:40 Blood Pressure 130/67 01/21/22 00:00 O2 Sat by Pulse Oximetry 93 L 01/21/22 08:52 Intake & Output: Intake & Output 01/18/22 01/19/22 01/20/22 01/21/22 11:59 11:59 11:59 11:59 Intake Total 1301 3554 280 Output Total 750 200 600 Balance 551 3354 -320 Weight 83.4 kg 83.4 kg - Lab Result Diagrams: 01/21/22 05:22 01/21/22 05:22 Lab Results-Last 24 Hrs: Lab Results-Last 24 Hours 01/20/22 01/20/22 01/21/22 Range/Units 04:00 20:19 05:22 WBC 10.0 (4.0-10.5) x10^3/uL RBC 3.70 L (4.1-5.4) x10^6/uL Hgb 9.9 L (12.0-16.0) g/dL Hct 33.1 L (35-47) % MCV 89.5 (78-100) fL MCH 26.8 (26-32) pg MCHC 29.9 L (32-36) g/dL RDW 17.3 H (11.5-14.0) % Plt Count 214 (150-450) x10^3/uL MPV 11.5 H (7.5-11.0) fL Gran % 92.7 H (36.0-66.0) % Immature Gran % (Auto) 1.2 H (0.00-0.4) % Nucleat RBC Rel Count 0.2 H (0.00-0.1) % Eos # (Auto) 0 (0-0.5) x10^3/uL Immature Gran # (Auto) 0.12 H (0.00-0.03) x10^3u/L Absolute Lymphs (auto) 0.41 L (1.0-4.6) x10^3/uL Absolute Monos (auto) 0.18 (0.0-1.3) x10^3/uL Absolute Nucleated RBC 0.02 H (0.00-0.01) x10^3u/L Lymphocytes % 4.1 L (24.0-44.0) % Monocytes % 1.8 (0.0-12.0) % Eosinophils % 0.0 (0.00-5.0) % Basophils % 0.2 (0.0-0.4) % Absolute Granulocytes 9.24 H (1.4-6.9) x10^3/uL Basophils # 0.02 (0-0.4) x10^3/uL Sodium (137-145) mmol/L Potassium (3.5-5.1) mmol/L Chloride (98-107) mmol/L Carbon Dioxide (22-30) mmol/L Anion Gap (5-15) MEQ/L BUN (7-17) mg/dL Creatinine (0.52-1.04) mg/dL Estimated GFR ML/MIN Glucose (74-106) mg/dL POC Glucometer 151 H (74 to 106) mg/dL Calcium (8.4-10.2) mg/dL Magnesium (1.6-2.3) mg/dL Total Bilirubin (0.2-1.3) mg/dL AST (14-36) U/L ALT (0-35) U/L Alkaline Phosphatase (38-126) U/L Serum Total Protein (6.3-8.2) g/dL Albumin (3.5-5.0) g/dL Slides for Path Review YES YES 01/21/22 01/21/22 Range/Units 05:22 05:22 WBC (4.0-10.5) x10^3/uL RBC (4.1-5.4) x10^6/uL Hgb (12.0-16.0) g/dL Hct (35-47) % MCV (78-100) fL MCH (26-32) pg MCHC (32-36) g/dL RDW (11.5-14.0) % Plt Count (150-450) x10^3/uL MPV (7.5-11.0) fL Gran % (36.0-66.0) % Immature Gran % (Auto) (0.00-0.4) % Nucleat RBC Rel Count (0.00-0.1) % Eos # (Auto) (0-0.5) x10^3/uL Immature Gran # (Auto) (0.00-0.03) x10^3u/L Absolute Lymphs (auto) (1.0-4.6) x10^3/uL Absolute Monos (auto) (0.0-1.3) x10^3/uL Absolute Nucleated RBC (0.00-0.01) x10^3u/L Lymphocytes % (24.0-44.0) % Monocytes % (0.0-12.0) % Eosinophils % (0.00-5.0) % Basophils % (0.0-0.4) % Absolute Granulocytes (1.4-6.9) x10^3/uL Basophils # (0-0.4) x10^3/uL Sodium 141 (137-145) mmol/L Potassium 3.9 (3.5-5.1) mmol/L Chloride 113 H (98-107) mmol/L Carbon Dioxide 17 L (22-30) mmol/L Anion Gap 14.9 (5-15) MEQ/L BUN 20 H (7-17) mg/dL Creatinine 1.00 (0.52-1.04) mg/dL Estimated GFR 59.0 ML/MIN Glucose 145 H (74-106) mg/dL POC Glucometer (74 to 106) mg/dL Calcium 8.8 (8.4-10.2) mg/dL Magnesium 1.9 (1.6-2.3) mg/dL Total Bilirubin 0.50 (0.2-1.3) mg/dL AST 21 (14-36) U/L ALT 20 (0-35) U/L Alkaline Phosphatase 88 (38-126) U/L Serum Total Protein 6.3 (6.3-8.2) g/dL Albumin 3.7 (3.5-5.0) g/dL Slides for Path Review Micro Results-Entire Visit: Microbiology 01/17/22 21:01 Urine Culture - Final Urine, Void Escherichia Coli Enterococcus Faecalis 01/19/22 Unknown C. difficile Toxin B Result 1 - Final Stool Not Reportable C. difficile Toxin B Result 2 - Final Not Reportable C. difficile Toxin B Result 3 - Final Not Reportable C. difficile Toxin B Result 4 - Final Not Reportable Antimicrobic Susceptibility - Final Not Reportable - Procedures and Test Procedures and Tests throughout Hospitalization: Therapy Orders & Screens 01/17/22 21:10 Respiratory Therapy Assessment DAILY Comment: 01/18/22 00:50 Oxygen Nasal Cannula 3 lpm Comment: Respiratory Therapy Consult ROUTINE Comment: Reason For Exam: 01/18/22 01:20 Respiratory MDI UD Comment: 01/18/22 01:23 RT Screen per Nursing Assess ONCE Comment: Protocol Order Physician Instructions: Greater than 3 points order RT Admission Screen Reason For Exam: Triggered on Admission Diagnosis: COPD Exac, CRD, UTI, CP Diagnosis: COPD Exac, CRD, UTI, CP Pneumonia: No Home O2: Yes: 2.5 L Asthma: No CHF: No Home CPAP/BIPAP: No Home Nebs/MDI: Yes Total Points: 10 01/20/22 13:40 RT Miscellaneous Order ROUTINE Comment: PATIENT ONLY WEARS 2L/NC AT HS Physician Instructions: WEAN O2 Reason For Exam: Diagnosis: COPD Exac, CRD, UTI, CP Discharge Exam General Appearance: other (insistent on going home - ride contacted by patient this morning) Neurologic Exam: alert, 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 Respiratory Exam: other (no conversational dyspne) Cardiovascular Exam: other (VSS,regular) Gastrointestinal/Abdomen Exam: other (see urine culture and sens report) Final Diagnosis/Problem List - Final Discharge Diagnosis/Problem (1) Pyelonephritis of right kidney Current Visit: Yes Status: Acute Assessment & Plan: improved -see cult/sens received Rocephin since admission and Linezoid added. Code(s): N12 - TUBULO-INTERSTITIAL NEPHRITIS, NOT SPCF ACUTE OR CHRONIC (2) Diarrhea Current Visit: No Status: Resolved Assessment & Plan: Cdif pending -will call patient with report Code(s): R19.7 - DIARRHEA, UNSPECIFIED (3) Anemia Current Visit: No Status: Chronic Assessment & Plan: will follow HGb Code(s): D64.9 - ANEMIA, UNSPECIFIED (4) Sundowning Current Visit: Yes Status: Resolved Code(s): F05 - DELIRIUM DUE TO KNOWN PHYSIOLOGICAL CONDITION (5) PTSD (post-traumatic stress disorder) Current Visit: Yes Status: Chronic Assessment & Plan: panic attacks . Discharged to care of family-not to be alone and appt with Dr Perry in the AM. Code(s): F43.10 - POST-TRAUMATIC STRESS DISORDER, UNSPECIFIED - Discharge Disposition: Home, Self-Care Condition: Good Prescriptions: New Linezolid 600 mg PO BID #14 tablet Continue ALPRAZolam 1 MG [Xanax 1 mg] 1 mg PO TID Sennosides/Docusate Sodium [Senokot-S Tablet] 1 tab PO DAILY Cetirizine HCl/Pseudoephedrine [Zyrtec-D Tablet] 1 each PO DAILY Aspirin 81 mg PO DAILY Levothyroxine Sodium 50 Mcg [Synthroid 50 Mcg] 50 mcg PO DAILY Linaclotide [Linzess] 290 mcg PO DAILY Dexlansoprazole [Dexilant] 60 mg PO DAILY Apixaban [Eliquis] 5 mg PO BID 30 Days #80 tablet Fluticasone/Umeclidin/Vilanter [Trelegy Ellipta 100-62.5-25] 200 units IH DAILY Albuterol 2.5 mg/3 ml Neb [Proventil 2.5 mg/3 ml Neb] 2.5 mg IH QID Phenazopyridine HCl 200 mg [Pyridium 200 mg] 200 mg PO TID #6 tablet Magnesium Oxide 400 mg [Mag-Ox 400] 400 mg PO DAILY dilTIAZem HCl [Diltiazem 24Hr ER (Cd)] 120 mg PO DAILY Omeprazole/Sodium Bicarbonate [Omeprazole-Bicarb 40-1,100 Cap] 1 cap PO DAILY Prucalopride Succinate [Motegrity] 1 mg PO DAILY Promethazine HCl 25 mg [Phenergan 25 mg] 25 mg PO BIDPRN PRN PRN Reason: Nausea Discontinued Cyclobenzaprine HCl 5 mg PO QHS Instructions: Acute Bronchitis, Adult (DC), Chronic Obstructive Pulmonary Disease (COPD) (DC), Delirium (Confusion) (DC) Additional Instructions: WEAR 2L/NC AT HOME AT ALL TIMES Patient will not be alone agrees . She will be staying at her daughter Nayana home and see Dr Perry tomorrow appt. Follow up with: LLUVIA PERRY DO [Primary Care Provider] - 01/22/22 11:00 am Forms: Discharge Instructions
== END 2022-01-21 10:00 | disposition home or self-care (01) ==
LOC: ED 20:24 → MED SURG 01-18 00:48
PROVIDERS: ADMIT General Practice; ATTEND Family Medicine
DX: N12 Tubulo-interstitial nephritis, not specified as acute or chronic (principal); R19.7 Diarrhea, unspecified; D64.9 Anemia, unspecified; F05 Delirium due to known physiological condition; F43.10 Post-traumatic stress disorder, unspecified; J44.1 Chronic obstructive pulmonary disease with (acute) exacerbation; R09.02 Hypoxemia; J20.9 Acute bronchitis, unspecified; E83.42 Hypomagnesemia; N39.0 Urinary tract infection, site not specified; N18.9 Chronic kidney disease, unspecified; Z79.899 Other long term (current) drug therapy; Z20.828 Contact with and (suspected) exposure to other viral communicable diseases; Z99.81 Dependence on supplemental oxygen; Z79.01 Long term (current) use of anticoagulants
CPT/HCPCS: 0241U; 36000; 36415; 71045; 80048; 80053; 81015; 82607; 82947; 83036; 83605; 83735; 83880; 84484; 85025; 85027; 85379; 87077; 87086; 87186; 93005; 93041; 93268; 94640; 94760; 94762; 96360; 96374; 99285; G0378; J0456; J0696; J1642; J2020; J2930; J3475; A9270-GY

== ENCOUNTER 2022-01-21 10:57 | Observation (INO) | payer MEDICARE ==
[2022-01-21] MEDS ORDERED: Sodium Chloride 0.9% 1000 ML 1,000 ML IV STA (11:23)
[2022-01-21] MEDS ORDERED: solu-MEDROL 125 MG, Sterile H2O 10 ml 2 ML IV ONE ×2 (11:23)
[2022-01-21] MEDS ORDERED: Ativan 2 MG/1 ML VIAL IV ONE (11:27)
[2022-01-21] MEDS ORDERED: Ativan 2 MG/1 ML VIAL ONE ×2 (11:44→17:42)
[2022-01-21] MEDS ORDERED: Sodium Chloride 0.9% 1000 ML 1,000 ML ONE (11:44)
[2022-01-21] MEDS ORDERED: Sterile H2O 10 ml IJ ONE (11:44)
[2022-01-21] MEDS ORDERED: solu-MEDROL ONE (11:44)
--- NOTE | 2022-01-21 11:50 | XRAY ---
Indication: Short of breath. Comparison: January 17, 2022 Portable chest demonstrates new focal eventration right hemidiaphragm with adjacent discoid atelectasis. Remaining heart, left lung, and bony thorax unremarkable again with incidental mediastinal/hilar calcified nodes and right Port-A-Cath.
[2022-01-21 11:59] LABS: Basophil (Absolute #) 0.01 x10^3/uL (0-0.4); Eosinophil (Absolute #) 0 x10^3/uL (0-0.5); Hematocrit 28.7 % (35-47); Hemoglobin 8.9 g/dL (12.0-16.0); Lymphocytes % 4.7 % (24.0-44.0); Mean Cell Volume 84.4 fL (78-100); Mean Corpuscular Hemoglobin 26.2 pg (26-32); Mean Platelet Volume 10.9 fL (7.5-11.0); Monocyte (Absolute #) 0.23 x10^3/uL (0.0-1.3); Monocytes % 2.7 % (0.0-12.0); Neutrophil % 91.4 % (36.0-66.0); Platelet Count 188 x10^3/uL (150-450); Red Cell Distribution Width 17.2 % (11.5-14.0); White Blood Count 8.5 x10^3/uL (4.0-10.5)
[2022-01-21 12:24] LABS: ALBUMIN 3.5 g/dL (3.5-5.0); BILIRUBIN,TOTAL 0.4 mg/dL (0.2-1.3); Calcium 8.4 mg/dL (8.4-10.2); Creatinine 1 1.07 mg/dL (0.52-1.04); EST GLOMERULAR FILTRATION RATE 54.5 ML/MIN; MAGNESIUM 1.9 mg/dL (1.6-2.3); Potassium 3.5 mmol/L (3.5-5.1); Total Protein 6.2 g/dL (6.3-8.2)
[2022-01-21 12:35] LABS: D-DIMER QUANTITATIVE 0.39 mg/L (0.0-0.50); INR 1.08 (0.8-3.0); PROTIME 11.4 SECONDS (9.4-12.5)
[2022-01-21 12:45] LABS: INFLUENZA A NEGATIVE (NEGATIVE); INFLUENZA B NEGATIVE (NEGATIVE); RESPIRATORY SYNCTIAL VIRUS NEGATIVE (Negative); SARS-CoV-2 Xpert Express NEGATIVE (NEGATIVE)
[2022-01-21 12:58] LABS: Slide Review 1 YES
[2022-01-21 13:15] LABS: Appearance CLEAR (CLEAR); Bilirubin NEGATIVE (NEGATIVE); Epithelial Cells RARE /HPF (FEW); Glucose NEGATIVE (NEGATIVE); Hyaline Casts 0-2 /LPF (0-2); Ketones NEGATIVE (NEGATIVE); Mucus SLIGHT /HPF (NEGATIVE); Ph 5.5 (5-6); Protein,Urine Dip NEGATIVE (Negative); RBC 0-2 /HPF (0-2); RBC TRACE-INTACT Ery/ul (0-5); Specific Gravity >=1.030 (1.005-1.025)
[2022-01-21 13:16] LABS: Dipstick done @ ? MAIN LAB; Nitrite NEGATIVE (NEGATIVE); Urine Cultured Indicated? YES; Urobilinogen 0.2 mg/dL (0-1)
--- NOTE | 2022-01-21 13:28 | ERPHSYRPT ---
- History of Present Illness Time Seen by Provider: 01/21/22 11:20 Source: patient, EMS, old records Exam Limitations: clinical condition Patient Subjective Stated Complaint: Cough Triage Nursing Assessment: Patient brought into ED per EMS and transferred to bed per 2 assist. Patient A+O X 3. Patient's skin pink, warm and dry. Patient discharged from [facility] inpatient unit prior to arrival. Patient states she was d/c'd from hospital and on way home started not feeling good. Patient complains of non productive cough. Lungs clear a/p ashley. Patient denies pain or discomfort. Physician History: Patient is a 66-year-old female who was just released from the hospital when on the way home she became short of breath and had increased cough. She attempted to leave AMA from the hospital and ultimately was released. Today on returning she says she is weak she is sick she cannot walk and she is short of breath. This patient is also known for short gut syndrome frequent dehydration and urinary tract infections. While hospitalized each evening she had own episodes. She also carries a diagnosis of PTSD. Timing/Duration: today Activities at Onset: none Severity of Dyspnea-Max: moderate Severity of Dyspnea-Current: mild Possible Cause: frequent episodes Modifying Factors: Improves With: albuterol nebulizer, coughing, oxygen Associated Symptoms: anxiety, cough, wheezing Allergies/Adverse Reactions: sumatriptan [From Imitrex] Allergy (Intermediate, Verified 01/21/22 11:04) Rash codeine Allergy (Mild, Verified 01/21/22 11:04) Rash MAKES SICK nitrofurantoin [From Macrobid] Allergy (Unknown, Verified 01/21/22 11:04) sumatriptan succinate [From Imitrex] Allergy (Verified 01/21/22 11:04) morphine Adverse Reaction (Severe, Verified 01/21/22 11:04) Headache MIGRAINES fentanyl Adverse Reaction (Intermediate, Verified 01/21/22 11:04) Headache hydrocodone bitartrate [From Vicodin] Adverse Reaction (Mild, Verified 01/21/22 11:04) Vomiting hydromorphone [From Dilaudid] Adverse Reaction (Mild, Verified 01/21/22 11:04) pt states makes heache worse. Home Medications: ALPRAZolam 1 MG [Xanax 1 mg] 1 mg PO TID 02/17/13 [History] Sennosides/Docusate Sodium [Senokot-S Tablet] 1 tab PO DAILY 04/25/15 [History] Cetirizine HCl/Pseudoephedrine [Zyrtec-D Tablet] 1 each PO DAILY 02/03/16 [History] Aspirin 81 mg PO DAILY 09/11/16 [History] Levothyroxine Sodium 50 Mcg [Synthroid 50 Mcg] 50 mcg PO DAILY 07/06/17 [History] Linaclotide [Linzess] 290 mcg PO DAILY 10/07/17 [History] Dexlansoprazole [Dexilant] 60 mg PO DAILY 01/21/20 [History] Fluticasone/Umeclidin/Vilanter [Trelegy Ellipta 100-62.5-25] 200 units IH DAILY 03/01/20 [History] Albuterol 2.5 mg/3 ml Neb [Proventil 2.5 mg/3 ml Neb] 2.5 mg IH QID 07/23/20 [History] Magnesium Oxide 400 mg [Mag-Ox 400] 400 mg PO DAILY 09/29/21 [History] dilTIAZem HCl [Diltiazem 24Hr ER (Cd)] 120 mg PO DAILY 09/29/21 [History] Omeprazole/Sodium Bicarbonate [Omeprazole-Bicarb 40-1,100 Cap] 1 cap PO DAILY 01/18/22 [History] Promethazine HCl 25 mg [Phenergan 25 mg] 25 mg PO BIDPRN PRN 01/18/22 [Hi story] Prucalopride Succinate [Motegrity] 1 mg PO DAILY 01/18/22 [History] Hx Tetanus, Diphtheria Vaccination/Date Given: Yes Hx Influenza Vaccination/Date Given: Yes Hx Pneumococcal Vaccination/Date Given: No Immunizations Up to Date: Yes Travel Risk - International Travel Have you traveled outside of the country in past 3 weeks: No - Coronavirus Screening Are you exhibiting any of the following symptoms?: No Close contact with a COVID-19 positive Pt in past 14-21 Days: No - Vaccine Status Have you recieved a 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: Yes 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[employer] - Vaccination Dates Date of 2cond Vaccination (if applicable): 2020 - Review of Systems Constitutional: Weakness, No Fever, No Chills Eyes: No Symptoms Ears, Nose, & Throat: No Symptoms Respiratory: Cough, Dyspnea, Wheezing Cardiac: No Chest Pain, No Edema, No Syncope Abdominal/Gastrointestinal: No Abdominal Pain, No Nausea, No Vomiting, No Diarrhea Genitourinary Symptoms: No Dysuria Musculoskeletal: Arthralgias, Myalgias, No Back Pain, No Neck Pain Skin: No Rash Neurological: Gait Changes, No Dizziness, No Focal Weakness, No Sensory Changes Psychological: Anxiety, Depression, Emotional Lability Endocrine: No Symptoms All Other Systems: Reviewed and Negative - Past Medical History Pertinent Past Medical History: Yes Neurological History: Migraines ENT History: Cataracts Cardiac History: No Pertinent History Respiratory History: Bronchitis, COPD, Pulmonary Embolism Endocrine Medical History: Hypothyroidism Musculoskeletal History: Osteoarthritis GI Medical History: GERD, Other History: Other Psycho-Social History: Anxiety, Panic Disorder Female Reproductive Disorders: No Pertinent History Other Medical History: frequent uti's, chronic pseudo obstruction, blood clot - Past Surgical History Past Surgical History: Yes Neuro Surgical History: No Pertinent History Cardiac: No Pertinent History Respiratory: No Pertinent History Gastrointestinal: Cholecystectomy, Other Genitourinary: No Pertinent History Musculoskeletal: No Pertinent History Female Surgical History: No Pertinent History Other Surgical History: all of large intestine removed - Social History Smoking Status: Never smoker Exposure to second hand smoke: No Alcohol Use: None Drug Use: none Patient Lives Alone: No Significant Family History: no pertinent family hx - Nursing Vital Signs Nursing Vital Signs: Initial Vital Signs Temperature 98.0 F 01/21/22 11:07 Pulse Rate 79 01/21/22 11:07 Respiratory Rate 18 01/21/22 11:07 Blood Pressure 132/73 01/21/22 11:07 O2 Sat by Pulse Oximetry 95 01/21/22 11:07 Pain Scale Pain Intensity 0 - Physical Exam General Appearance: mild distress, alert, other (Patient somewhat agitated and anxious she was very agitated when she was asked about group home placement.) Eye Exam: PERRL/EOMI Neck Exam: normal inspection, supple Respiratory Exam: crackles/rales, rhonchi, wheezing Cardiovascular/Chest Exam: normal heart sounds, regular rate/rhythm Abdominal/Gastrointestinal Exam: soft, No tenderness, No distention, No mass Extremity Exam: non-tender, normal range of motion, normal inspection, no calf tenderness, no pedal edema Neurologic Exam: alert, 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, cooperative, tack puller machine II-XII nml as tested, sensation nml, No motor deficits Skin Exam: normal color, warm, No dry SpO2 Interpretation: normal SpO2: 92 O2 Delivery: Room Air - Course Nursing assessment & vital signs reviewed: Yes EKG Interpreted by Me: RATE (80), Sinus Rhythm, NORMAL AXIS, NORMAL INTERVALS, Non-specific ST Changes, Other (Radiofrequency interference) - Radiology Exams Chest X-ray Interpretation: Reviewed by me Ordered Tests: Active Orders 24 hr Category Date Time Status EKG-ER Only STAT Care 01/21/22 11:23 Active IV Insertion STAT Care 01/21/22 11:23 Active CHEST 1 VIEW (PORTABLE) Stat Exams 01/21/22 11:24 Completed CBC W DIFF Stat Lab 01/21/22 11:55 Completed CMP Stat Lab 01/21/22 11:55 Completed CULTURE,URINE Stat Lab 01/21/22 12:33 Received D-DIMER QUANTITATIVE Stat Lab 01/21/22 11:55 Completed Lactic Acid Stat Lab 01/21/22 11:23 Completed MAGNESIUM Stat Lab 01/21/22 11:55 Completed NT PRO BNP Stat Lab 01/21/22 11:55 Completed PROTIME WITH INR Stat Lab 01/21/22 11:55 Completed PTT Stat Lab 01/21/22 11:55 Completed TROPONIN Q4H Lab 01/21/22 11:55 Completed TROPONIN Q4H Lab 01/21/22 15:30 Ordered TROPONIN Q4H Lab 01/21/22 19:30 Ordered UA W/RFX CULTURE Stat Lab 01/21/22 12:33 Completed Medication Summary Discontinued Medications Generic Name Dose Route Start Last Admin Trade Name Freq PRN Reason Stop Dose Admin Methylprednisolone Sodium 0 mg 01/21/22 11:23 01/21/22 11:53 Succinate 125 mg/ Sterile IV 01/21/22 11:24 125 mg Water 2 ml STAT ONE Administration Sodium Chloride 1,000 mls @ 999 mls/hr 01/21/22 11:23 01/21/22 11:54 Sodium Chloride 0.9% 1000 Ml IV 01/21/22 12:23 999 mls/hr .Q1H1M STA Administration Sodium Chloride Confirm 01/21/22 11:44 Sodium Chloride 0.9% 1000 Ml Administered 01/21/22 11:45 Dose 1,000 mls @ ud .ROUTE .STK-MED ONE Lorazepam 1 mg 01/21/22 11:27 01/21/22 11:53 Lorazepam 2 Mg/1 Ml 2 Mg Vial IV 01/21/22 11:28 2 mg STAT ONE Administration Lorazepam Confirm 01/21/22 11:44 Lorazepam 2 Mg/1 Ml 2 Mg Vial Administered 01/21/22 11:45 Dose 2 mg .ROUTE .STK-MED ONE Methylprednisolone Sodium Succinate Confirm 01/21/22 11:44 Methylprednis Sod Succ 125 Mg/2 Ml Vial Administered 01/21/22 11:45 Dose 125 mg .ROUTE .STK-MED ONE Sterile Water Confirm 01/21/22 11:44 Water For Injection,Sterile 10 Ml Vial Administered 01/21/22 11:45 Dose 10 ml IJ .STK-MED ONE Lab/Rad Data: Laboratory Result Diagrams 01/21/22 11:55 01/21/22 11:55 Laboratory Results 01/21/22 01/21/22 01/21/22 Range/Units 12:33 11:55 11:55 WBC (4.0-10.5) x10^3/uL RBC (4.1-5.4) x10^6/uL Hgb (12.0-16.0) g/dL Hct (35-47) % MCV (78-100) fL MCH (26-32) pg MCHC (32-36) g/dL RDW (11.5-14.0) % Plt Count (150-450) x10^3/uL MPV (7.5-11.0) fL Gran % (36.0-66.0) % Immature Gran % (Auto) (0.00-0.4) % Nucleat RBC Rel Count (0.00-0.1) % Eos # (Auto) (0-0.5) x10^3/uL Immature Gran # (Auto) (0.00-0.03) x10^3u/L Absolute Lymphs (auto) (1.0-4.6) x10^3/uL Absolute Monos (auto) (0.0-1.3) x10^3/uL Absolute Nucleated RBC (0.00-0.01) x10^3u/L Lymphocytes % (24.0-44.0) % Monocytes % (0.0-12.0) % Eosinophils % (0.00-5.0) % Basophils % (0.0-0.4) % Absolute Granulocytes (1.4-6.9) x10^3/uL Basophils # (0-0.4) x10^3/uL PT 11.4 (9.4-12.5) SECONDS INR 1.08 (0.8-3.0) APTT 35.0 (25.1-36.5) SECONDS D-Dimer 0.39 (0.0-0.50) mg/L Sodium (137-145) mmol/L Potassium (3.5-5.1) mmol/L Chloride (98-107) mmol/L Carbon Dioxide (22-30) mmol/L Anion Gap (5-15) MEQ/L BUN (7-17) mg/dL Creatinine (0.52-1.04) mg/dL Estimated GFR ML/MIN Glucose (74-106) mg/dL Lactic Acid (0.4-2.0) Calcium (8.4-10.2) mg/dL Magnesium (1.6-2.3) mg/dL Total Bilirubin (0.2-1.3) mg/dL AST (14-36) U/L ALT (0-35) U/L Alkaline Phosphatase (38-126) U/L Troponin I < 0.012 (0.000-0.034) ng/mL NT-Pro-B Natriuret Pep (0-900) pg/mL Serum Total Protein (6.3-8.2) g/dL Albumin (3.5-5.0) g/dL Urinalys Dipstick Clnc MAIN LAB Urine Color YELLOW (YELLOW) Urine Appearance CLEAR (CLEAR) Urine pH 5.5 (5-6) Ur Specific Clementon >=1.030 A (1.005-1.025) POC Urine Protein Conf NEGATIVE (Negative) Urine Ketones NEGATIVE (NEGATIVE) Urine Nitrite NEGATIVE (NEGATIVE) Urine Bilirubin NEGATIVE (NEGATIVE) Urine Urobilinogen 0.2 (0-1) mg/dL Urine Leukocytes TRACE A (NEGATIVE) Urine WBC (Auto) 3-5 A (0-5) /HPF Urine RBC (Auto) 0-2 (0-2) /HPF U Hyaline Cast (Auto) 0-2 (0-2) /LPF U Epithel Cells (Auto) RARE (FEW) /HPF Urine Bacteria (Auto) NONE (NEGATIVE) /HPF Urine RBC TRACE-INTACT A (0-5) Aroldo/ul Urine Mucus (Auto) SLIGHT A (NEGATIVE) /HPF Ur Culture Indicated? YES Urine Glucose NEGATIVE (NEGATIVE) mg/dL Influenza Type A Ag (NEGATIVE) Influenza Type B Ag (NEGATIVE) RSV (PCR) (Negative) SARS-CoV-2 (PCR) (NEGATIVE) Slides for Path Review 01/21/22 01/21/22 01/21/22 Range/Units 11:55 11:55 11:43 WBC 8.5 (4.0-10.5) x10^3/uL RBC 3.40 L (4.1-5.4) x10^6/uL Hgb 8.9 L (12.0-16.0) g/dL Hct 28.7 L (35-47) % MCV 84.4 (78-100) fL MCH 26.2 (26-32) pg MCHC 31.0 L (32-36) g/dL RDW 17.2 H (11.5-14.0) % Plt Count 188 (150-450) x10^3/uL MPV 10.9 (7.5-11.0) fL Gran % 91.4 H (36.0-66.0) % Immature Gran % (Auto) 1.1 H (0.00-0.4) % Nucleat RBC Rel Count 0.4 H (0.00-0.1) % Eos # (Auto) 0 (0-0.5) x10^3/uL Immature Gran # (Auto) 0.09 H (0.00-0.03) x10^3u/L Absolute Lymphs (auto) 0.40 L (1.0-4.6) x10^3/uL Absolute Monos (auto) 0.23 (0.0-1.3) x10^3/uL Absolute Nucleated RBC 0.03 H (0.00-0.01) x10^3u/L Lymphocytes % 4.7 L (24.0-44.0) % Monocytes % 2.7 (0.0-12.0) % Eosinophils % 0.0 (0.00-5.0) % Basophils % 0.1 (0.0-0.4) % Absolute Granulocytes 7.80 H (1.4-6.9) x10^3/uL Basophils # 0.01 (0-0.4) x10^3/uL PT (9.4-12.5) SECONDS INR (0.8-3.0) APTT (25.1-36.5) SECONDS D-Dimer (0.0-0.50) mg/L Sodium 138 (137-145) mmol/L Potassium 3.5 (3.5-5.1) mmol/L Chloride 112 H (98-107) mmol/L Carbon Dioxide 21 L (22-30) mmol/L Anion Gap 9.0 (5-15) MEQ/L BUN 21 H (7-17) mg/dL Creatinine 1.07 H (0.52-1.04) mg/dL Estimated GFR 54.5 ML/MIN Glucose 128 H (74-106) mg/dL Lactic Acid (0.4-2.0) Calcium 8.4 (8.4-10.2) mg/dL Magnesium 1.9 (1.6-2.3) mg/dL Total Bilirubin 0.40 (0.2-1.3) mg/dL AST 27 (14-36) U/L ALT 21 (0-35) U/L Alkaline Phosphatase 74 (38-126) U/L Troponin I (0.000-0.034) ng/mL NT-Pro-B Natriuret Pep 1960 H (0-900) pg/mL Serum Total Protein 6.2 L (6.3-8.2) g/dL Albumin 3.5 (3.5-5.0) g/dL Urinalys Dipstick Clnc Urine Color (YELLOW) Urine Appearance (CLEAR) Urine pH (5-6) Ur Specific Clementon (1.005-1.025) POC Urine Protein Conf (Negative) Urine Ketones (NEGATIVE) Urine Nitrite (NEGATIVE) Urine Bilirubin (NEGATIVE) Urine Urobilinogen (0-1) mg/dL Urine Leukocytes (NEGATIVE) Urine WBC (Auto) (0-5) /HPF Urine RBC (Auto) (0-2) /HPF U Hyaline Cast (Auto) (0-2) /LPF U Epithel Cells (Auto) (FEW) /HPF Urine Bacteria (Auto) (NEGATIVE) /HPF Urine RBC (0-5) Aroldo/ul Urine Mucus (Auto) (NEGATIVE) /HPF Ur Culture Indicated? Urine Glucose (NEGATIVE) mg/dL Influenza Type A Ag NEGATIVE (NEGATIVE) Influenza Type B Ag NEGATIVE (NEGATIVE) RSV (PCR) NEGATIVE (Negative) SARS-CoV-2 (PCR) NEGATIVE (NEGATIVE) Slides for Path Review YES 01/21/22 Range/Units 11:23 WBC (4.0-10.5) x10^3/uL RBC (4.1-5.4) x10^6/uL Hgb (12.0-16.0) g/dL Hct (35-47) % MCV (78-100) fL MCH (26-32) pg MCHC (32-36) g/dL RDW (11.5-14.0) % Plt Count (150-450) x10^3/uL MPV (7.5-11.0) fL Gran % (36.0-66.0) % Immature Gran % (Auto) (0.00-0.4) % Nucleat RBC Rel Count (0.00-0.1) % Eos # (Auto) (0-0.5) x10^3/uL Immature Gran # (Auto) (0.00-0.03) x10^3u/L Absolute Lymphs (auto) (1.0-4.6) x10^3/uL Absolute Monos (auto) (0.0-1.3) x10^3/uL Absolute Nucleated RBC (0.00-0.01) x10^3u/L Lymphocytes % (24.0-44.0) % Monocytes % (0.0-12.0) % Eosinophils % (0.00-5.0) % Basophils % (0.0-0.4) % Absolute Granulocytes (1.4-6.9) x10^3/uL Basophils # (0-0.4) x10^3/uL PT (9.4-12.5) SECONDS INR (0.8-3.0) APTT (25.1-36.5) SECONDS D-Dimer (0.0-0.50) mg/L Sodium (137-145) mmol/L Potassium (3.5-5.1) mmol/L Chloride (98-107) mmol/L Carbon Dioxide (22-30) mmol/L Anion Gap (5-15) MEQ/L BUN (7-17) mg/dL Creatinine (0.52-1.04) mg/dL Estimated GFR ML/MIN Glucose (74-106) mg/dL Lactic Acid 2.3 H (0.4-2.0) Calcium (8.4-10.2) mg/dL Magnesium (1.6-2.3) mg/dL Total Bilirubin (0.2-1.3) mg/dL AST (14-36) U/L ALT (0-35) U/L Alkaline Phosphatase (38-126) U/L Troponin I (0.000-0.034) ng/mL NT-Pro-B Natriuret Pep (0-900) pg/mL Serum Total Protein (6.3-8.2) g/dL Albumin (3.5-5.0) g/dL Urinalys Dipstick Clnc Urine Color (YELLOW) Urine Appearance (CLEAR) Urine pH (5-6) Ur Specific Clementon (1.005-1.025) POC Urine Protein Conf (Negative) Urine Ketones (NEGATIVE) Urine Nitrite (NEGATIVE) Urine Bilirubin (NEGATIVE) Urine Urobilinogen (0-1) mg/dL Urine Leukocytes (NEGATIVE) Urine WBC (Auto) (0-5) /HPF Urine RBC (Auto) (0-2) /HPF U Hyaline Cast (Auto) (0-2) /LPF U Epithel Cells (Auto) (FEW) /HPF Urine Bacteria (Auto) (NEGATIVE) /HPF Urine RBC (0-5) Aroldo/ul Urine Mucus (Auto) (NEGATIVE) /HPF Ur Culture Indicated? Urine Glucose (NEGATIVE) mg/dL Influenza Type A Ag (NEGATIVE) Influenza Type B Ag (NEGATIVE) RSV (PCR) (Negative) SARS-CoV-2 (PCR) (NEGATIVE) Slides for Path Review - Progress Progress: improved Air Movement: fair Blood Culture(s) Obtained: No Antibiotics given: Yes Discussed with : Jodie Will see patient in: hospital (observation) - Departure Departure Disposition: Observation Clinical Impression: Dyspnea, PTSD (post-traumatic stress disorder), Oxygen dependent, COPD (chronic obstructive pulmonary disease) with chronic bronchitis, Anxiety, Mild dehydration Condition: Fair Critical Care Time: No Referrals: LLUVIA CHILDERS DO [Primary Care Provider] - Follow up/PCP as directed Instructions: Chronic Obstructive Pulmonary Disease
[2022-01-21] MEDS ORDERED: Sodium Chloride 0.9% 1000 ML 1,000 ML IV SCH (13:45)
[2022-01-21] MEDS ORDERED: PROVENTIL 2.5 MG/3 ML NEB IH ONE (15:02)
[2022-01-21] MEDS: PROVENTIL 2.5 MG/3 ML NEB IH SCH ×2 (15:20→19:15)
[2022-01-21 15:38] VITALS: O2SAT 95
[2022-01-21 15:40] VITALS: BP 150/87; PULSE 63
[2022-01-21] MEDS ORDERED: Ativan 2 MG/1 ML VIAL IV PRN (17:40)
[2022-01-21] MEDS ORDERED: XANAX 1 MG PO ONE (22:00)
[2022-01-21] MEDS ORDERED: Zyvox 600 MG IV PREMIX*** 300 ML IV SCH (22:00)
[2022-01-21] MEDS ORDERED: PHENERGAN 25 MG PO PRN (22:00)
[2022-01-21] MEDS ORDERED: ELIQUIS 2.5 MG TABLET PO ONE (22:00)
[2022-01-22] MEDS ORDERED: PATIENT OWN MEDICATION IH SCH (07:00)
--- NOTE | 2022-01-22 09:18 | ECHO ---
Transthoracic echocardiographic examination and color Doppler was done on 01/21/2022. INDICATION: Congestive heart failure, chest pain. IMPRESSION: 1) NO REGIONAL WALL MOTION ABNORMALITY. ESTIMATED GLOBAL LEFT VENTRICULAR EJECTION FRACTION OF AROUND 60 TO 65%. 2) MILD MITRAL REGURGITATION. 3) MILD TRICUSPID REGURGITATION WITH RIGHT VENTRICULAR SYSTOLIC PRESSURE OF 29 MM OF MERCURY. The left ventricle is visualized and demonstrated adequate motion of all the segments. Estimated global left ventricular ejection fraction around 60 to 65%. The left ventricular thickness is normal. The mitral valve is seen and this opens adequately. There is mild mitral regurgitation. The left atrium is normal. The aortic valve opens adequately. There is no significant gradient across the left ventricular outflow tract. The right side chambers are normal. There is mild tricuspid regurgitation. The right ventricular systolic pressure is 29 mm of Mercury.
--- NOTE | 2022-02-22 11:58 | PCM.BN ---
Brief Admission Note - Admission Note Brief Admisson Note: Patient readmitted to [facility] on 01/21/22 from ER and then signed out AMA before I could make rounds.Patient had just been discharged from [facility] when on her way home she panicked /felt short of breath and came back to the ER and was readmitted. Once on the floor she refused care and called her daughter to pick her up.See Nursing lengthy note with details . Appt was chetan for her to see me the following day ,01/22/22.
== END 2022-01-21 19:45 | disposition left against medical advice (07) ==
LOC: ED 10:57 → MED SURG 13:56
PROVIDERS: ADMIT Family Medicine; ATTEND Family Medicine
DX: R06.02 Shortness of breath (principal); J44.9 Chronic obstructive pulmonary disease, unspecified; R06.00 Dyspnea, unspecified; Z99.81 Dependence on supplemental oxygen; E86.0 Dehydration; Z79.899 Other long term (current) drug therapy; Z20.828 Contact with and (suspected) exposure to other viral communicable diseases; R53.1 Weakness
CPT/HCPCS: 0241U; 36000; 36415; 71045; 80053; 81015; 83605; 83735; 83880; 84484; 85025; 85379; 85610; 85730; 87086; 93005; 93306; 94640; 94760; 96360; 96374; 96375; 99285; G0378; J1642; J2060; J2930; J7609; A9270-GY

== ENCOUNTER 2022-01-22 21:40 | Emergency (ER) | payer MEDICARE ==
--- NOTE | 2022-01-22 21:50 | ERPHSYRPT ---
- History of Present Illness Time Seen by Provider: 01/22/22 21:46 Source: patient Exam Limitations: no limitations Physician History: This is a 66-year-old white female patient known to our emergency department who was seen in emergency department on 01/18/2022, was placed in observation in the hospital and left AGAINST MEDICAL ADVICE. She then returned on 01/21/2022 where she was placed in observation and I again left AGAINST MEDICAL ADVICE. She is back here again today with no complaints but just wants the needle removed from her port. The patient was adamant that she was leaving AGAINST MEDICAL ADVICE that she did not give the for time to have that removed before she was out the door leaving AGAINST MEDICAL ADVICE. Timing/Duration: today Severity: mild Associated Symptoms: denies symptoms Allergies/Adverse Reactions: sumatriptan [From Imitrex] Allergy (Intermediate, Verified 01/21/22 11:04) Rash codeine Allergy (Mild, Verified 01/21/22 11:04) Rash MAKES SICK nitrofurantoin [From Macrobid] Allergy (Unknown, Verified 01/21/22 11:04) sumatriptan succinate [From Imitrex] Allergy (Verified 01/21/22 11:04) morphine Adverse Reaction (Severe, Verified 01/21/22 11:04) Headache MIGRAINES fentanyl Adverse Reaction (Intermediate, Verified 01/21/22 11:04) Headache hydrocodone bitartrate [From Vicodin] Adverse Reaction (Mild, Verified 01/21/22 11:04) Vomiting hydromorphone [From Dilaudid] Adverse Reaction (Mild, Verified 01/21/22 11:04) pt states makes heache worse. Home Medications: ALPRAZolam 1 MG [Xanax 1 mg] 1 mg PO TID 02/17/13 [History] Sennosides/Docusate Sodium [Senokot-S Tablet] 1 tab PO DAILY 04/25/15 [History] Cetirizine HCl/Pseudoephedrine [Zyrtec-D Tablet] 1 each PO DAILY 02/03/16 [Hist ory] Aspirin 81 mg PO DAILY 09/11/16 [History] Levothyroxine Sodium 50 Mcg [Synthroid 50 Mcg] 50 mcg PO DAILY 07/06/17 [History] Linaclotide [Linzess] 290 mcg PO DAILY 10/07/17 [History] Dexlansoprazole [Dexilant] 60 mg PO DAILY 01/21/20 [History] Fluticasone/Umeclidin/Vilanter [Trelegy Ellipta 100-62.5-25] 200 units IH DAILY 03/01/20 [History] Albuterol 2.5 mg/3 ml Neb [Proventil 2.5 mg/3 ml Neb] 2.5 mg IH QID 07/23/20 [History] Magnesium Oxide 400 mg [Mag-Ox 400] 400 mg PO DAILY 09/29/21 [History] dilTIAZem HCl [Diltiazem 24Hr ER (Cd)] 120 mg PO DAILY 09/29/21 [History] Omeprazole/Sodium Bicarbonate [Omeprazole-Bicarb 40-1,100 Cap] 1 cap PO DAILY 01/18/22 [History] Promethazine HCl 25 mg [Phenergan 25 mg] 25 mg PO BIDPRN PRN 01/18/22 [History] Prucalopride Succinate [Motegrity] 1 mg PO DAILY 01/18/22 [History] Hx Tetanus, Diphtheria Vaccination/Date Given: Yes Hx Influenza Vaccination/Date Given: Yes Hx Pneumococcal Vaccination/Date Given: No Travel Risk - International Travel Have you traveled outside of the country in past 3 weeks: No - Coronavirus Screening Are you exhibiting any of the following symptoms?: No Close contact with a COVID-19 positive Pt in past 14-21 Days: No - Vaccine Status Have you recieved a 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: Yes [employer]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[employer] - Vaccination Dates Date of 2cond Vaccination (if applicable): 2020 - Review of Systems Constitutional: No Symptoms Eyes: No Symptoms Ears, Nose, & Throat: No Symptoms Respiratory: No Symptoms Cardiac: No Symptoms Abdominal/Gastrointestinal: No Symptoms Genitourinary Symptoms: No Symptoms Musculoskeletal: No Symptoms Skin: No Symptoms Neurological: No Symptoms Psychological: No Symptoms Endocrine: No Symptoms Hematologic/Lymphatic: No Symptoms Immunological/Allergic: No Symptoms All Other Systems: Reviewed and Negative - Past Medical History Pertinent Past Medical History: Yes Neurological History: Migraines ENT History: Cataracts Cardiac History: No Pertinent History Respiratory History: Bronchitis, COPD, Pulmonary Embolism Endocrine Medical History: Hypothyroidism Musculoskeletal History: Osteoarthritis GI Medical History: GERD, Other History: Other Psycho-Social History: Anxiety, Panic Disorder Female Reproductive Disorders: No Pertinent History Other Medical History: frequent uti's, chronic pseudo obstruction, blood clot - Past Surgical History Past Surgical History: Yes Neuro Surgical History: No Pertinent History Cardiac: No Pertinent History Respiratory: No Pertinent History Gastrointestinal: Cholecystectomy, Other Genitourinary: No Pertinent History Musculoskeletal: No Pertinent History Female Surgical History: No Pertinent History Other Surgical History: all of large intestine removed - Social History Smoking Status: Never smoker Exposure to second hand smoke: No Alcohol Use: None Drug Use: none Patient Lives Alone: No Significant Family History: no pertinent family hx - Physical Exam General Appearance: no apparent distress, alert Eye Exam: PERRL/EOMI, eyes nml inspection Ears, Nose, Throat Exam: normal ENT inspection, moist mucous membranes Neck Exam: normal inspection, non-tender, supple, full range of motion Respiratory Exam: other (Needle adapter placed in patient's port. Site appears to be free of infection. 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 nml as tested, normal mood/affect, nml cerebellar function, nml station & gait, sensation nml Skin Exam: normal color, warm, dry Lymphatic Exam: No adenopathy SpO2 Interpretation: normal O2 Delivery: Room Air - Course Nursing assessment & vital signs reviewed: Yes - Progress Progress: unchanged Counseled pt/family regarding: diagnosis, need for follow-up - Departure Departure Disposition: Home Clinical Impression: Encounter for medical screening examination Condition: Stable Critical Care Time: No Referrals: LLUVIA CHILDERS DO [Primary Care Provider] - Follow up/PCP as directed Additional Instructions: Continue your port site care. Continue all your medications as prescribed. Follow-up with your primary care physician for further evaluation and management.
[2022-01-22 21:52] VITALS: BP 131/96; PULSE 108; O2SAT 98
== END 2022-01-22 22:14 | disposition home or self-care (01) ==
LOC: ED 21:40
DX: Z45.2 Encounter for adjustment and management of vascular access device (principal); J44.9 Chronic obstructive pulmonary disease, unspecified; Z79.899 Other long term (current) drug therapy
CPT/HCPCS: 99281; J1642

== ENCOUNTER 2022-01-23 22:05 | Emergency (ER) | payer MEDICARE ==
[2012-11-05 17:17] VITALS: BP 100/62
== END 2022-01-23 23:39 | disposition left against medical advice (07) ==
LOC: ED 22:05
DX: Z53.21 Procedure and treatment not carried out due to patient leaving prior to being seen by health care provider (principal)

== ENCOUNTER 2022-01-24 05:22 | Emergency (ER) | payer MEDICARE ==
[2022-01-24] MEDS ORDERED: XYLOCAINE 1% HCL 20 ML MDV IJ ONE (05:23)
--- NOTE | 2022-01-24 06:17 | ERPHSYRPT ---
- History of Present Illness Source: patient Exam Limitations: other (Poor historian) Patient Subjective Stated Complaint: pt states she has leg pain and still has a UTI but has only taken two doses of her antibiotic. pt states she still has pain in her legs and in her lower back Triage Nursing Assessment: pt ia alert and oriented, states sh ehas pain 09/24 Physician History: 66 yo wf w ER trip x5 in the last few days which includes admit x2 in which she left AMA presents w lower extremity edema x 1-[address] Perry called in lasix and also lumbar pain rated an 8 for 1 week. Pt is on Linazolid for a UTI. She denies dysuria/hematuria/fever, along w chest pain and dyspnea. Pain in back and legs worse w upright position and walking. Pt also denies injury/trauma. Timing/Duration: other (2 days for lower extremity edema/1 week for lumbar pain) Associated Symptoms: denies symptoms Allergies/Adverse Reactions: sumatriptan [From Imitrex] Allergy (Intermediate, Verified 01/21/22 11:04) Rash codeine Allergy (Mild, Verified 01/21/22 11:04) Rash MAKES SICK nitrofurantoin [From Macrobid] Allergy (Unknown, Verified 01/21/22 11:04) sumatriptan succinate [From Imitrex] Allergy (Verified 01/21/22 11:04) morphine Adverse Reaction (Severe, Verified 01/21/22 11:04) Headache MIGRAINES fentanyl Adverse Reaction (Intermediate, Verified 01/21/22 11:04) Headache hydrocodone bitartrate [From Vicodin] Adverse Reaction (Mild, Verified 01/21/22 11:04) Vomiting hydromorphone [From Dilaudid] Adverse Reaction (Mild, Verified 01/21/22 11:04) pt states makes heache worse. Home Medications: ALPRAZolam 1 MG [Xanax 1 mg] 1 mg PO TID 02/17/13 [History] Sennosides/Docusate Sodium [Senokot-S Tablet] 1 tab PO DAILY 04/25/15 [History] Cetirizine HCl/Pseudoephedrine [Zyrtec-D Tablet] 1 each PO DAILY 02/03/16 [History] Aspirin 81 mg PO DAILY 09/11/16 [History] Levothyroxine Sodium 50 Mcg [Synthroid 50 Mcg] 50 mcg PO DAILY 07/06/17 [History] Linaclotide [Linzess] 290 mcg PO DAILY 10/07/17 [History] Dexlansoprazole [Dexilant] 60 mg PO DAILY 01/21/20 [History] Fluticasone/Umeclidin/Vilanter [Trelegy Ellipta 100-62.5-25] 200 units IH DAILY 03/01/20 [History] Albuterol 2.5 mg/3 ml Neb [Proventil 2.5 mg/3 ml Neb] 2.5 mg IH QID 07/23/20 [History] Magnesium Oxide 400 mg [Mag-Ox 400] 400 mg PO DAILY 09/29/21 [History] dilTIAZem HCl [Diltiazem 24Hr ER (Cd)] 120 mg PO DAILY 09/29/21 [History] Omeprazole/Sodium Bicarbonate [Omeprazole-Bicarb 40-1,100 Cap] 1 cap PO DAILY 01/18/22 [History] Promethazine HCl 25 mg [Phenergan 25 mg] 25 mg PO BIDPRN PRN 01/18/22 [History] Prucalopride Succinate [Motegrity] 1 mg PO DAILY 01/18/22 [History] Hx Tetanus, Diphtheria Vaccination/Date Given: Yes Hx Influenza Vaccination/Date Given: Yes Hx Pneumococcal Vaccination/Date Given: No Travel Risk - International Travel Have you traveled outside of the country in past 3 weeks: No - Coronavirus Screening Are you exhibiting any of the following symptoms?: No Close contact with a COVID-19 positive Pt in past 14-21 Days: No - Vaccine Status Have you recieved a 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: Yes 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[employer] - Vaccination Dates Date of 2cond Vaccination (if applicable): 2020 - Review of Systems Constitutional: No Symptoms Eyes: No Symptoms Ears, Nose, & Throat: No Symptoms Respiratory: No Symptoms Cardiac: No Symptoms Abdominal/Gastrointestinal: No Symptoms Genitourinary Symptoms: No Symptoms Musculoskeletal: No Symptoms, Back Pain Skin: No Symptoms Neurological: No Symptoms Psychological: No Symptoms Endocrine: No Symptoms Hematologic/Lymphatic: No Symptoms Immunological/Allergic: No Symptoms - Past Medical History Pertinent Past Medical History: Yes Neurological History: Migraines ENT History: Cataracts Cardiac History: No Pertinent History Respiratory History: Bronchitis, COPD, Pulmonary Embolism Endocrine Medical History: Hypothyroidism Musculoskeletal History: Osteoarthritis GI Medical History: GERD, Other History: Other Psycho-Social History: Anxiety, Panic Disorder Female Reproductive Disorders: No Pertinent History Other Medical History: frequent uti's, chronic pseudo obstruction, blood clot - Past Surgical History Past Surgical History: Yes Neuro Surgical History: No Pertinent History Cardiac: No Pertinent History Respiratory: No Pertinent History Gastrointestinal: Cholecystectomy, Other Genitourinary: No Pertinent History Musculoskeletal: No Pertinent History Female Surgical History: No Pertinent History Other Surgical History: all of large intestine removed - Social History Smoking Status: Never smoker Exposure to second hand smoke: No Alcohol Use: None Drug Use: none Patient Lives Alone: No Significant Family History: no pertinent family hx - Nursing Vital Signs Nursing Vital Signs: Initial Vital Signs Temperature 97.8 F 01/24/22 05:36 Pain Scale Pain Intensity 8 - Physical Exam General Appearance: no apparent distress Eye Exam: PERRL/EOMI, eyes nml inspection Ears, Nose, Throat Exam: normal ENT inspection, TMs normal, pharynx normal, moist mucous membranes Neck Exam: normal inspection, non-tender, supple, full range of motion, No meningismus, No mass, No Brudzinski, No Kernig's Respiratory Exam: normal breath sounds, lungs clear, airway intact Cardiovascular Exam: regular rate/rhythm, normal heart sounds, normal peripheral pulses, capillary refill <2 sec, No murmur Gastrointestinal/Abdomen Exam: soft, normal bowel sounds, No tenderness Back Exam: vertebral tenderness (Mild L-spine TTP/Mild B CVA TTP) Extremity Exam: pedal edema (Trace B pedal edema), No calf tenderness Neurologic Exam: alert, 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, cooperative, 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, normal mood/affect, sensation nml, No motor deficits, No sensory deficit Skin Exam: ecchymosis (Pt has multiple ecchymotic areas on legs/arms most likely due to Eliquis) Ordered Tests: Active Orders 24 hr Category Date Time Status CBC W DIFF Stat Lab 01/24/22 06:07 Completed CMP Stat Lab 01/24/22 06:15 Completed CULTURE,URINE Stat Lab 01/24/22 06:15 Received NT PRO BNP Stat Lab 01/24/22 06:15 Completed TROPONIN Q4H Lab 01/24/22 06:15 Completed TROPONIN Q4H Lab 01/24/22 10:15 Ordered TROPONIN Q4H Lab 01/24/22 14:15 Ordered UA W/RFX CULTURE Stat Lab 01/24/22 06:15 Completed Medication Summary Generic Name Dose Route Start Last Admin Trade Name Elton PRN Reason Stop Dose Admin Ceftriaxone Sodium 1,000 mg 01/24/22 06:58 Ceftriaxone Sodium 1000 Mg Inj Vial IM 01/24/22 06:59 STAT ONE Discontinued Medications Generic Name Dose Route Start Last Admin Trade Name Elton PRN Reason Stop Dose Admin Ketorolac Tromethamine 15 mg 01/24/22 06:57 Ketorolac Tromethamine 30 Mg/Ml Inj IM 01/24/22 06:58 STAT ONE Potassium Chloride 40 meq 01/24/22 06:57 Potassium Chloride Tab 10 Meq Tab PO 01/24/22 06:58 STAT ONE Lab/Rad Data: Laboratory Result Diagrams 01/24/22 06:07 01/24/22 06:15 Laboratory Results 01/24/22 01/24/22 01/24/22 Range/Units 06:15 06:15 06:07 WBC 8.3 (4.0-10.5) x10^3/uL RBC 3.66 L (4.1-5.4) x10^6/uL Hgb 9.6 L (12.0-16.0) g/dL Hct 31.5 L (35-47) % MCV 86.1 (78-100) fL MCH 26.2 (26-32) pg MCHC 30.5 L (32-36) g/dL RDW 16.1 H (11.5-14.0) % Plt Count 179 (150-450) x10^3/uL MPV 10.7 (7.5-11.0) fL Gran % 79.4 H (36.0-66.0) % Immature Gran % (Auto) 1.0 H (0.00-0.4) % Nucleat RBC Rel Count 0.0 (0.00-0.1) % Eos # (Auto) 0.13 (0-0.5) x10^3/uL Immature Gran # (Auto) 0.08 H (0.00-0.03) x10^3u/L Absolute Lymphs (auto) 1.04 (1.0-4.6) x10^3/uL Absolute Monos (auto) 0.45 (0.0-1.3) x10^3/uL Absolute Nucleated RBC 0.00 (0.00-0.01) x10^3u/L Lymphocytes % 12.5 L (24.0-44.0) % Monocytes % 5.4 (0.0-12.0) % Eosinophils % 1.6 (0.00-5.0) % Basophils % 0.1 (0.0-0.4) % Absolute Granulocytes 6.62 (1.4-6.9) x10^3/uL Basophils # 0.01 (0-0.4) x10^3/uL Sodium 136 L (137-145) mmol/L Potassium 2.9 L* (3.5-5.1) mmol/L Chloride 107 (98-107) mmol/L Carbon Dioxide 22 (22-30) mmol/L Anion Gap 10.0 (5-15) MEQ/L BUN 26 H (7-17) mg/dL Creatinine 1.30 H (0.52-1.04) mg/dL Estimated GFR 43.6 ML/MIN Glucose 99 (74-106) mg/dL Calcium 7.6 L (8.4-10.2) mg/dL Total Bilirubin 0.70 (0.2-1.3) mg/dL AST 27 (14-36) U/L ALT 27 (0-35) U/L Alkaline Phosphatase 90 (38-126) U/L Troponin I < 0.012 (0.000-0.034) ng/mL NT-Pro-B Natriuret Pep 489 (0-900) pg/mL Serum Total Protein 5.9 L (6.3-8.2) g/dL Albumin 3.4 L (3.5-5.0) g/dL Urinalys Dipstick Clnc MAIN LAB Urine Color YELLOW (YELLOW) Urine Appearance SLIGHTLY CLOUDY A (CLEAR) Urine pH 6.0 (5-6) Ur Specific [place] 1.020 (1.005-1.025) POC Urine Protein Conf NEGATIVE (Negative) Urine Ketones NEGATIVE (NEGATIVE) Urine Nitrite NEGATIVE (NEGATIVE) Urine Bilirubin NEGATIVE (NEGATIVE) Urine Urobilinogen 0.2 (0-1) mg/dL Urine Leukocytes MODERATE A (NEGATIVE) Urine WBC (Auto) 26-50 A (0-5) /HPF Urine RBC (Auto) 6-10 A (0-2) /HPF U Epithel Cells (Auto) RARE (FEW) /HPF Urine Bacteria (Auto) MODERATE A (NEGATIVE) /HPF Urine RBC TRACE-INTACT A (0-5) Aroldo/ul Ur Culture Indicated? YES Urine Glucose NEGATIVE (NEGATIVE) mg/dL - Progress Progress Note: 01/24/22 07:00 Pt refuses admit at this time for her UTI and has actually left AMA x 2 within the last 2 days. 1gm IM Rocephin/15mg IM Toradol/40meq po KCl Counseled pt/family regarding: lab results, diagnosis, need for follow-up - Departure Departure Disposition: Home Clinical Impression: UTI (urinary tract infection), Hypokalemia Condition: Stable Critical Care Time: No Referrals: LLUIVA PERRY, [Primary Care Provider] - Follow up/PCP as directed Instructions: Urinary Tract Infection, Adult (DC), Hypokalemia (DC) Additional Instructions: Continue with previously prescribed antibiotic Follow up with your family MD on Wednesday Return to ER for increasing pain or temperature greater than 100.5 Prescriptions: Potassium Chloride 20 meq PO BID 3 Days #6 tablet
[2022-01-24 06:23] LABS: Bacteria MODERATE /HPF (NEGATIVE); Epithelial Cells RARE /HPF (FEW); WBC 26-50 /HPF (0-5)
[2022-01-24 06:24] LABS: Absolute Neutrophil Ct (ANC) 6.62 x10^3/uL (1.4-6.9); Basophil (Absolute #) 0.01 x10^3/uL (0-0.4); Eosinophil % 1.6 % (0.00-5.0); Eosinophil (Absolute #) 0.13 x10^3/uL (0-0.5); Hematocrit 31.5 % (35-47); Hemoglobin 9.6 g/dL (12.0-16.0); Lymphocyte (Absolute #) 1.04 x10^3/uL (1.0-4.6); Lymphocytes % 12.5 % (24.0-44.0); Mean Cell Volume 86.1 fL (78-100); Mean Corpuscular Hemoglobin 26.2 pg (26-32); Mean Corpuscular Hgb Concent. 30.5 g/dL (32-36); Mean Platelet Volume 10.7 fL (7.5-11.0); Monocyte (Absolute #) 0.45 x10^3/uL (0.0-1.3); Monocytes % 5.4 % (0.0-12.0); Neutrophil % 79.4 % (36.0-66.0); Platelet Count 179 x10^3/uL (150-450); Red Blood Count 3.66 x10^6/uL (4.1-5.4); Red Cell Distribution Width 16.1 % (11.5-14.0); White Blood Count 8.3 x10^3/uL (4.0-10.5)
[2022-01-24 06:25] LABS: Appearance SLIGHTLY CLOUDY (CLEAR); Bilirubin NEGATIVE (NEGATIVE); Dipstick done @ ? MAIN LAB; Glucose NEGATIVE (NEGATIVE); Ketones NEGATIVE (NEGATIVE); Nitrite NEGATIVE (NEGATIVE); Protein,Urine Dip NEGATIVE (Negative); RBC TRACE-INTACT Ery/ul (0-5); Urine Cultured Indicated? YES; Urobilinogen 0.2 mg/dL (0-1)
[2022-01-24 06:41] LABS: ALBUMIN 3.4 g/dL (3.5-5.0); ALKALINE PHOSPHATASE 90 U/L (38-126); BLOOD UREA NITROGEN 26 mg/dL (7-17); CHLORIDE 107 mmol/L (98-107); Calcium 7.6 mg/dL (8.4-10.2); Carbon Dioxide 22 mmol/L (22-30); EST GLOMERULAR FILTRATION RATE 43.6 ML/MIN; Glucose 99 mg/dL (74-106); SGOT/AST 27 U/L (14-36); SGPT/ALT 27 U/L (0-35); SODIUM 136 mmol/L (137-145); Total Protein 5.9 g/dL (6.3-8.2)
[2022-01-24 06:51] LABS: Potassium 2.9 mmol/L (3.5-5.1)
[2022-01-24 06:52] LABS: NT PRO BNP 489 pg/mL (0-900); TROPONIN < 0.012 ng/mL (0.000-0.034)
[2022-01-24] MEDS ORDERED: Klor Con PO ONE ×3 (06:57→07:06)
[2022-01-24] MEDS ORDERED: TORAdol 30 mg Injection IM ONE (06:57)
[2022-01-24] MEDS ORDERED: Rocephin 1000 MG INJ IM ONE (06:58)
[2022-01-24] MEDS ORDERED: TORAdol 30 mg Injection ONE (07:04)
[2022-01-24] MEDS ORDERED: Rocephin 1000 MG INJ ONE (07:05)
== END 2022-01-24 07:17 | disposition home or self-care (01) ==
LOC: ED 05:22
DX: N39.0 Urinary tract infection, site not specified (principal); E87.6 Hypokalemia; R60.0 Localized edema; M54.50 Low back pain, unspecified; J44.9 Chronic obstructive pulmonary disease, unspecified; Z79.899 Other long term (current) drug therapy
CPT/HCPCS: 36415; 80053; 81015; 83880; 84484; 85025; 87077; 87086; 87186; 96372; 99283; J0696; J1885; A9270-GY

== ENCOUNTER 2022-01-25 15:35 | Emergency (ER) | payer MEDICARE ==
[2022-01-25] MEDS ORDERED: Sodium Chloride 0.9% 1000 ML 1,000 ML IV STA (15:53)
[2022-01-25] MEDS ORDERED: Sodium Chloride 0.9% 1000 ML 1,000 ML ONE (16:07)
--- NOTE | 2022-01-25 16:08 | ERPHSYRPT ---
- History of Present Illness Time Seen by Provider: 01/25/22 16:06 Source: patient Exam Limitations: no limitations Patient Subjective Stated Complaint: Pt states "I was in here the other day and they wante to keep me but I wanted to go home so they gave me a water pill and potassium as well as an antibiotic. I was in here yesterday and they gave me rocephin shot and I went home. I am just not any better. My legs and kidneys hurt." Triage Nursing Assessment: Pt presented alert and oriented X 3, skin pwd. PT presented alert and oriented X 3, skin pwd. Pt ambulates with a slow gait. pt able to speak in full sentences. Physician History: Pt states "I was in here the other day and they wante to keep me but I wanted to go home so they gave me a water pill and potassium as well as an antibiotic. I was in here yesterday and they gave me rocephin shot and I went home. I am just not any better. My legs and kidneys hurt." Timing/Duration: today Associated Symptoms: other (leg pains) Allergies/Adverse Reactions: sumatriptan [From Imitrex] Allergy (Intermediate, Verified 01/21/22 11:04) Rash codeine Allergy (Mild, Verified 01/21/22 11:04) Rash MAKES SICK nitrofurantoin [From Macrobid] Allergy (Unknown, Verified 01/21/22 11:04) sumatriptan succinate [From Imitrex] Allergy (Verified 01/21/22 11:04) morphine Adverse Reaction (Severe, Verified 01/21/22 11:04) Headache MIGRAINES fentanyl Adverse Reaction (Intermediate, Verified 01/21/22 11:04) Headache hydrocodone bitartrate [From Vicodin] Adverse Reaction (Mild, Verified 01/21/22 11:04) Vomiting hydromorphone [From Dilaudid] Adverse Reaction (Mild, Verified 01/21/22 11:04) pt states makes heache worse. Home Medications: ALPRAZolam 1 MG [Xanax 1 mg] 1 mg PO TID 02/17/13 [History] Sennosides/Docusate Sodium [Senokot-S Tablet] 1 tab PO DAILY 04/25/15 [History] Cetirizine HCl/Pseudoephedrine [Zyrtec-D Tablet] 1 each PO DAILY 02/03/16 [History] Aspirin 81 mg PO DAILY 09/11/16 [History] Levothyroxine Sodium 50 Mcg [Synthroid 50 Mcg] 50 mcg PO DAILY 07/06/17 [History] Linaclotide [Linzess] 290 mcg PO DAILY 10/07/17 [History] Dexlansoprazole [Dexilant] 60 mg PO DAILY 01/21/20 [History] Fluticasone/Umeclidin/Vilanter [Trelegy Ellipta 100-62.5-25] 200 units IH DAILY 03/01/20 [History] Albuterol 2.5 mg/3 ml Neb [Proventil 2.5 mg/3 ml Neb] 2.5 mg IH QID 07/23/20 [History] Magnesium Oxide 400 mg [Mag-Ox 400] 400 mg PO DAILY 09/29/21 [History] dilTIAZem HCl [Diltiazem 24Hr ER (Cd)] 120 mg PO DAILY 09/29/21 [History] Omeprazole/Sodium Bicarbonate [Omeprazole-Bicarb 40-1,100 Cap] 1 cap PO DAILY 01/18/22 [History] Promethazine HCl 25 mg [Phenergan 25 mg] 25 mg PO BIDPRN PRN 01/18/22 [History] Prucalopride Succinate [Motegrity] 1 mg PO DAILY 01/18/22 [History] Hx Tetanus, Diphtheria Vaccination/Date Given: Yes Hx Influenza Vaccination/Date Given: Yes Hx Pneumococcal Vaccination/Date Given: No Immunizations Up to Date: Yes Travel Risk - International Travel Have you traveled outside of the country in past 3 weeks: No - Coronavirus Screening Are you exhibiting any of the following symptoms?: No Close contact with a COVID-19 positive Pt in past 14-21 Days: No - Vaccine Status Have you recieved a 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: 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[employer] - Vaccination Dates Date of 2cond Vaccination (if applicable): 2020 - Review of Systems Constitutional: No Fever, No Chills Eyes: No Symptoms Ears, Nose, & Throat: No Symptoms Respiratory: No Cough, No Dyspnea Cardiac: No Chest Pain, No Edema, No Syncope Abdominal/Gastrointestinal: No Abdominal Pain, No Nausea, No Vomiting, No Diarrhea Genitourinary Symptoms: No Dysuria Musculoskeletal: Back Pain, Myalgias, Other (leg pain), No Neck Pain Skin: No Rash Neurological: No Dizziness, No Focal Weakness, No Sensory Changes Psychological: No Symptoms Endocrine: No Symptoms Hematologic/Lymphatic: No Symptoms All Other Systems: Reviewed and Negative - Past Medical History Pertinent Past Medical History: Yes Neurological History: Migraines ENT History: Cataracts Cardiac History: No Pertinent History Respiratory History: Bronchitis, COPD, Pulmonary Embolism Endocrine Medical History: Hypothyroidism Musculoskeletal History: Osteoarthritis GI Medical History: GERD, Other History: Other Psycho-Social History: Anxiety, Panic Disorder Female Reproductive Disorders: No Pertinent History Other Medical History: frequent uti's, chronic pseudo obstruction, blood clot - Past Surgical History Past Surgical History: Yes Neuro Surgical History: No Pertinent History Cardiac: No Pertinent History Respiratory: No Pertinent History Gastrointestinal: Cholecystectomy, Other Genitourinary: No Pertinent History Musculoskeletal: No Pertinent History Female Surgical History: No Pertinent History Other Surgical History: all of large intestine removed - Social History Smoking Status: Never smoker Exposure to second hand smoke: No Alcohol Use: None Drug Use: none Patient Lives Alone: No Significant Family History: no pertinent family hx - Nursing Vital Signs Nursing Vital Signs: Initial Vital Signs Temperature 98.7 F 01/25/22 15:38 Pulse Rate 73 01/25/22 15:38 Respiratory Rate 24 01/25/22 15:38 Blood Pressure 108/69 01/25/22 15:38 O2 Sat by Pulse Oximetry 99 01/25/22 15:38 Pain Scale Pain Intensity 10 - Physical Exam General Appearance: no apparent distress, alert Eye Exam: PERRL/EOMI, eyes nml inspection Ears, Nose, Throat Exam: normal ENT inspection, TMs normal, pharynx normal, moist mucous membranes Neck Exam: normal inspection, non-tender, supple, full range of motion Respiratory Exam: normal breath sounds, lungs clear, No respiratory distress Cardiovascular Exam: regular rate/rhythm, normal heart sounds, normal peripheral pulses Gastrointestinal/Abdomen Exam: soft, normal bowel sounds, No tenderness, No mass Back Exam: normal inspection, normal range of motion, No CVA tenderness, No vertebral tenderness Extremity Exam: normal inspection, normal range of motion, pelvis stable Neurologic Exam: alert, 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, cooperative, normal mood/affect, nml cerebellar function, nml station & gait, sensation nml, No motor deficits Skin Exam: normal color, warm, dry, No rash Lymphatic Exam: No adenopathy SpO2: 99 - Course Nursing assessment & vital signs reviewed: Yes Ordered Tests: Active Orders 24 hr Category Date Time Status CBC W DIFF Stat Lab 01/25/22 15:53 Completed CMP Stat Lab 01/25/22 16:13 Completed MAGNESIUM Stat Lab 01/25/22 16:13 Completed UA W/RFX CULTURE Stat Lab 01/25/22 Ordered Medication Summary Generic Name Dose Route Start Last Admin Trade Name Freq PRN Reason Stop Dose Admin Sodium Chloride 1,000 mls @ 999 mls/hr 01/25/22 15:53 01/25/22 16:07 Sodium Chloride 0.9% 1000 Ml IV 01/25/22 16:53 999 mls/hr .[id number] STA Administration Discontinued Medications Generic Name Dose Route Start Last Admin Trade Name Freq PRN Reason Stop Dose Admin Sodium Chloride Confirm 01/25/22 16:07 Sodium Chloride 0.9% 1000 Ml Administered 01/25/22 16:08 Dose 1,000 mls @ ud .ROUTE .STK-MED ONE Lab/Rad Data: Laboratory Result Diagrams 01/25/22 15:53 01/25/22 16:13 Laboratory Results 01/25/22 01/25/22 Range/Units 16:13 15:53 WBC 10.5 (4.0-10.5) x10^3/uL RBC 3.97 L (4.1-5.4) x10^6/uL Hgb 10.4 L (12.0-16.0) g/dL Hct 34.1 L (35-47) % MCV 85.9 (78-100) fL MCH 26.2 (26-32) pg MCHC 30.5 L (32-36) g/dL RDW 15.9 H (11.5-14.0) % Plt Count 198 (150-450) x10^3/uL MPV 10.5 (7.5-11.0) fL Gran % 83.5 H (36.0-66.0) % Immature Gran % (Auto) 1.3 H (0.00-0.4) % Nucleat RBC Rel Count 0.0 (0.00-0.1) % Eos # (Auto) 0.15 (0-0.5) x10^3/uL Immature Gran # (Auto) 0.14 H (0.00-0.03) x10^3u/L Absolute Lymphs (auto) 0.87 L (1.0-4.6) x10^3/uL Absolute Monos (auto) 0.56 (0.0-1.3) x10^3/uL Absolute Nucleated RBC 0.00 (0.00-0.01) x10^3u/L Lymphocytes % 8.3 L (24.0-44.0) % Monocytes % 5.3 (0.0-12.0) % Eosinophils % 1.4 (0.00-5.0) % Basophils % 0.2 (0.0-0.4) % Absolute Granulocytes 8.74 H (1.4-6.9) x10^3/uL Basophils # 0.02 (0-0.4) x10^3/uL Sodium 135 L (137-145) mmol/L Potassium 3.6 D (3.5-5.1) mmol/L Chloride 109 H (98-107) mmol/L Carbon Dioxide 18 L (22-30) mmol/L Anion Gap 11.8 (5-15) MEQ/L BUN 23 H (7-17) mg/dL Creatinine 1.47 H (0.52-1.04) mg/dL Estimated GFR 37.8 ML/MIN Glucose 156 H (74-106) mg/dL Calcium 8.2 L (8.4-10.2) mg/dL Magnesium 1.7 (1.6-2.3) mg/dL Total Bilirubin 0.60 (0.2-1.3) mg/dL AST 26 (14-36) U/L ALT 26 (0-35) U/L Alkaline Phosphatase 91 (38-126) U/L Serum Total Protein 6.5 (6.3-8.2) g/dL Albumin 3.7 (3.5-5.0) g/dL - Progress Progress: improved, pain not gone completely Counseled pt/family regarding: lab results, diagnosis, need for follow-up - Departure Departure Disposition: Home Clinical Impression: Bilateral leg cramps Condition: Stable Critical Care Time: No Referrals: LLUVIA CHILDERS DO [Primary Care Provider] - Follow Up with PCP/3 days Additional Instructions: Discharge/Care Plan GEOVANNY FREY was seen on 01/25/22 in the Emergency Room. The patient was counseled regarding Diagnosis,Lab results, Imaging studies, need for follow up and when to return to the Emergency Room. Prescriptions given: Discharge Note I have spoken with the patient and/or caregivers. I have explained the patient's condition, diagnosis and treatment plan based on the information available to me at this time. I have answered the patient's and/or caregiver's questions and addressed any concerns. The patient and/or caregivers have as good understanding of the patient's diagnosis, condition and treatment plan as can be expected at this point. The vital signs have been stable. The patient's condition is stable and appropriate for discharge from the emergency department. The patient will pursue further outpatient evaluation with the primary care ph ysician or other designated or consulting physician as outlined in the discharge instructions. The patient and/or caregivers are agreeable to this plan of care and follow-up instructions have been explained in detail. The patient and/or caregivers have received these instruction. The patient/and or caregivers are aware that any significant change in condition or worsening of symptoms should prompt an immediate return to this or the closest emergency department or call 911. GEOVANNY FREY was seen on 01/25/22 n the Emergency Room. At that time you were treated for an emergent condition, during your visit Laboratory, Radiology and/or other procedures may have been ordered. It is very important that you follow-up with your Primary Care Physician LLUVIA CHILDERS, within the next 24-48 hours to review your Emergency Room visit and the final results of testing that was ordered. Some test results such as Urine Cultures, Blood Cultures, and other cultures if ordered will not be finalized for 24-48 hours. If you do not have a Primary Care Provider please call the medical records department at [phone] to obtain a copy of your results or you may sign into our patient portal to obtain these results by visiting us @ [email or web address] and completing the following steps: 1. Click on the Patient Portal link 2. Click the Patient Self Enrollment Link to complete the enrollment form and entering your 3. Once the enrollment form is completed you will receive an email with a temporary ID and password at the email address you provided. 4. Next choose a user name and password. Your user name must be at least 4 characters long and your password must be at least 4 characters long. 5. Choose a security question from the list and provide your answer to the question. If you already have signed into the Health Portal you may access your Health Care Information 07/09 by the following steps: 1. Login to our website @ [email or web address] 2. Enter your original user name and password. FAQS The [facility] Health Portal is an online tool that contains your Lab Results, Radiology Reports, Visit History, Discharge Instructions and Health Summary Lab and Radiology Results will not be available for 72 hours on the portal. The Portal is a secure site, passwords are encryted and URLs are re-written so they cannot be copied and pasted. You and authorized family members are the only ones who can access your Portal. Also there is a timeout feature that protects your information if you leave the Portal page open. If you have technical difficulty please use the Contact Us link on the page this will allow you to submit any questions you have regarding the Portal or you may contact the Medical Record Department at [phone].
[2022-01-25 16:09] LABS: Absolute Neutrophil Ct (ANC) 8.74 x10^3/uL (1.4-6.9); Basophil (Absolute #) 0.02 x10^3/uL (0-0.4); Eosinophil % 1.4 % (0.00-5.0); Eosinophil (Absolute #) 0.15 x10^3/uL (0-0.5); Hematocrit 34.1 % (35-47); Hemoglobin 10.4 g/dL (12.0-16.0); Lymphocyte (Absolute #) 0.87 x10^3/uL (1.0-4.6); Lymphocytes % 8.3 % (24.0-44.0); Mean Cell Volume 85.9 fL (78-100); Mean Corpuscular Hemoglobin 26.2 pg (26-32); Mean Corpuscular Hgb Concent. 30.5 g/dL (32-36); Mean Platelet Volume 10.5 fL (7.5-11.0); Monocyte (Absolute #) 0.56 x10^3/uL (0.0-1.3); Monocytes % 5.3 % (0.0-12.0); Neutrophil % 83.5 % (36.0-66.0); Platelet Count 198 x10^3/uL (150-450); Red Blood Count 3.97 x10^6/uL (4.1-5.4); Red Cell Distribution Width 15.9 % (11.5-14.0); White Blood Count 10.5 x10^3/uL (4.0-10.5)
[2022-01-25 16:22] LABS: ALBUMIN 3.7 g/dL (3.5-5.0); ANION GAP 11.8 MEQ/L (5-15); BILIRUBIN,TOTAL 0.6 mg/dL (0.2-1.3); Calcium 8.2 mg/dL (8.4-10.2); Creatinine 1 1.47 mg/dL (0.52-1.04); EST GLOMERULAR FILTRATION RATE 37.8 ML/MIN; MAGNESIUM 1.7 mg/dL (1.6-2.3); Potassium 3.6 mmol/L (3.5-5.1); Total Protein 6.5 g/dL (6.3-8.2)
[2022-01-25] MEDS ORDERED: TORAdol 30 mg Injection IV ONE (17:06)
[2022-01-25] MEDS ORDERED: TORAdol 30 mg Injection ONE (17:07)
[2022-01-25 17:29] VITALS: BP 106/80; PULSE 70; O2SAT 94
== END 2022-01-25 17:23 | disposition home or self-care (01) ==
LOC: ED 15:35
DX: R25.2 Cramp and spasm (principal); M79.604 Pain in right leg; M79.605 Pain in left leg; Z79.899 Other long term (current) drug therapy
CPT/HCPCS: 36000; 36415; 80053; 83735; 85025; 96360; 96374; 99284; J1642; J1885

== ENCOUNTER 2022-02-23 01:28 | Emergency (ER) | payer MEDICARE ==
--- NOTE | 2022-02-23 01:57 | ERPHSYRPT ---
- History of Present Illness Source: patient, EMS Exam Limitations: other (Poor historian) Patient Subjective Stated Complaint: pt states she has had flu like symptoms for a week, states she has no pain just SOB and pressure in chest from coughing. Triage Nursing Assessment: pt alert and orinted x3, laying in bed, transferred from cot, dry cough, no fever. Physician History: 66 yo wf w multiple medical problems presents per EMS w CV19 exposur e/nonproductive chronic cough/dyspnea/dysuria/increased frequency. Pt denies chest pain/fever/nausea/vomiting/diarrhea. She is 2.5L O2 dep at home. Activities at Onset: rest Severity of Dyspnea-Max: moderate Severity of Dyspnea-Current: mild Possible Cause: frequent episodes Modifying Factors: Improves With: activity, exertion Associated Symptoms: cough, painful breathing, No constant, No intermittent, No anxiety, No chest pain/discomfort, No edema, No fever, No insomnia, No loss of appetite, No lightheadedness, No wheezing, No weakness, No ankle swelling, No chills, No hemoptysis, No calf pain, No dizziness, No heaviness, No heart racing, No lightheadedness, No leg swelling, No muscle spasms feet, No muscle spasms hands, No productive cough, No sweating, No tightness, No tingling face, No tingling hands Allergies/Adverse Reactions: sumatriptan [From Imitrex] Allergy (Intermediate, Verified 01/21/22 11:04) Rash codeine Allergy (Mild, Verified 01/21/22 11:04) Rash MAKES SICK nitrofurantoin [From Macrobid] Allergy (Unknown, Verified 01/21/22 11:04) sumatriptan succinate [From Imitrex] Allergy (Verified 01/21/22 11:04) morphine Adverse Reaction (Severe, Verified 01/21/22 11:04) Headache MIGRAINES fentanyl Adverse Reaction (Intermediate, Verified 01/21/22 11:04) Headache hydrocodone bitartrate [From Vicodin] Adverse Reaction (Mild, Verified 01/21/22 11:04) Vomiting hydromorphone [From Dilaudid] Adverse Reaction (Mild, Verified 01/21/22 11:04) pt states makes heache worse. Home Medications: ALPRAZolam 1 MG [Xanax 1 mg] 1 mg PO TID 02/17/13 [History] Sennosides/Docusate Sodium [Senokot-S Tablet] 1 tab PO DAILY 04/25/15 [History] Cetirizine HCl/Pseudoephedrine [Zyrtec-D Tablet] 1 each PO DAILY 02/03/16 [History] Aspirin 81 mg PO DAILY 09/11/16 [History] Levothyroxine Sodium 50 Mcg [Synthroid 50 Mcg] 50 mcg PO DAILY 07/06/17 [History] Linaclotide [Linzess] 290 mcg PO DAILY 10/07/17 [History] Dexlansoprazole [Dexilant] 60 mg PO DAILY 01/21/20 [History] Fluticasone/Umeclidin/Vilanter [Trelegy Ellipta 100-62.5-25] 200 units IH DAILY 03/01/20 [History] Albuterol 2.5 mg/3 ml Neb [Proventil 2.5 mg/3 ml Neb] 2.5 mg IH QID 07/23/20 [History] Magnesium Oxide 400 mg [Mag-Ox 400] 400 mg PO DAILY 09/29/21 [History] dilTIAZem HCl [Diltiazem 24Hr ER (Cd)] 120 mg PO DAILY 09/29/21 [History] Omeprazole/Sodium Bicarbonate [Omeprazole-Bicarb 40-1,100 Cap] 1 cap PO DAILY 01/18/22 [History] Promethazine HCl 25 mg [Phenergan 25 mg] 25 mg PO BIDPRN PRN 01/18/22 [History] Prucalopride Succinate [Motegrity] 1 mg PO DAILY 01/18/22 [History] Hx Tetanus, Diphtheria Vaccination/Date Given: Yes Hx Influenza Vaccination/Date Given: Yes Hx Pneumococcal Vaccination/Date Given: No Travel Risk - International Travel Have you traveled outside of the country in past 3 weeks: No - Coronavirus Screening Are you exhibiting any of the following symptoms?: Yes Symptoms: Cough: New Onset, Shortness of Breath, Headaches/Body Aches/Fatigue Close contact with a COVID-19 positive Pt in past 14-21 Days: No - Vaccine Status Have you recieved a 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: 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[facility] [place] - Vaccination Dates Date of 2cond Vaccination (if applicable): unknown - Review of Systems Constitutional: No Symptoms Eyes: No Symptoms Ears, Nose, & Throat: No Symptoms Respiratory: No Symptoms, Cough, Dyspnea Cardiac: No Symptoms Abdominal/Gastrointestinal: No Symptoms Genitourinary Symptoms: No Symptoms Musculoskeletal: No Symptoms Skin: No Symptoms Neurological: No Symptoms Psychological: No Symptoms Endocrine: No Symptoms Hematologic/Lymphatic: No Symptoms Immunological/Allergic: No Symptoms - Past Medical History Pertinent Past Medical History: Yes Neurological History: Migraines ENT History: Cataracts Cardiac History: No Pertinent History Respiratory History: Bronchitis, COPD, Pulmonary Embolism Endocrine Medical History: Hypothyroidism Musculoskeletal History: Osteoarthritis GI Medical History: GERD, Other History: Other Psycho-Social History: Anxiety, Panic Disorder Female Reproductive Disorders: No Pertinent History Other Medical History: frequent uti's, chronic pseudo obstruction, blood clot - Past Surgical History Past Surgical History: Yes Neuro Surgical History: No Pertinent History Cardiac: No Pertinent History Respiratory: No Pertinent History Gastrointestinal: Cholecystectomy, Other Genitourinary: No Pertinent History Musculoskeletal: No Pertinent History Female Surgical History: No Pertinent History Other Surgical History: all of large intestine removed - Social History Smoking Status: Former smoker Exposure to second hand smoke: No Alcohol Use: None Drug Use: none Patient Lives Alone: No Significant Family History: no pertinent family hx - Nursing Vital Signs Nursing Vital Signs: Initial Vital Signs Temperature 97.1 F 02/23/22 01:30 Pulse Rate 108 H 02/23/22 01:30 Respiratory Rate 22 02/23/22 01:30 Blood Pressure 157/143 02/23/22 01:30 O2 Sat by Pulse Oximetry 99 02/23/22 01:30 Pain Scale Pain Intensity 0 Tachy/Hypertensive - Physical Exam General Appearance: no apparent distress, anxiety Eye Exam: PERRL/EOMI, eyes nml inspection Ears, Nose, Throat Exam: hearing grossly normal, normal ENT inspection, normal pharynx Neck Exam: normal inspection, non-tender, supple, full range of motion, No Brudzinski, No Kernig's, No meningismus Respiratory Exam: airway intact, crackles/rales (Faint rales at bases B), wheez ing (Occ wheeze B), No respiratory distress Cardiovascular/Chest Exam: normal peripheral pulses, tachycardia, No murmur Abdominal/Gastrointestinal Exam: soft, normal bowel sounds, No tenderness Extremity Exam: non-tender, normal range of motion, normal inspection, normal capillary refill Neurologic Exam: alert, 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, cooperative, 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, normal mood/affect, sensation nml, No motor deficits Skin Exam: normal color, warm, dry Lymphatic Exam: No adenopathy SpO2 Interpretation: normal SpO2: 99 O2 Delivery: Nasal Cannula - Course Nursing assessment & vital signs reviewed: Yes - Radiology Exams Chest X-ray Interpretation: Interpreted by me (No significant change) Ordered Tests: Active Orders 24 hr Category Date Time Status CHEST 1 VIEW (PORTABLE) Stat Exams 02/23/22 02:14 Taken CBC W DIFF Stat Lab 02/23/22 02:34 Completed CMP Stat Lab 02/23/22 02:34 Completed CULTURE,URINE Stat Lab 02/23/22 Received Lactic Acid Stat Lab 02/23/22 02:30 Completed TROPONIN Q4H Lab 02/23/22 02:34 Completed TROPONIN Q4H Lab 02/23/22 06:15 Ordered TROPONIN Q4H Lab 02/23/22 10:15 Ordered UA W/RFX UR CULTURE Stat Lab 02/23/22 Completed Medication Summary Discontinued Medications Generic Name Dose Route Start Last Admin Trade Name Freq PRN Reason Stop Dose Admin Ceftriaxone Sodium 1,000 mg 02/23/22 03:23 02/23/22 03:34 Ceftriaxone Sodium 1000 Mg Inj Vial IM 02/23/22 03:24 1,000 mg STAT ONE Administration Ceftriaxone Sodium Confirm 02/23/22 03:32 Ceftriaxone Sodium 1000 Mg Inj Vial Administered 02/23/22 03:33 Dose 1,000 mg .ROUTE .STK-MED ONE Lidocaine HCl Confirm 02/23/22 03:33 Lidocaine Hcl 1% 20 Ml Mdv 20 Ml Ml Administered 02/23/22 03:34 Dose 1 ml .ROUTE .STK-MED ONE Lab/Rad Data: Laboratory Result Diagrams 02/23/22 02:34 02/23/22 02:34 Laboratory Results 02/23/22 02/23/22 02/23/22 Range/Units Unknown 02:34 02:34 WBC (4.0-10.5) x10^3/uL RBC (4.1-5.4) x10^6/uL Hgb (12.0-16.0) g/dL Hct (35-47) % MCV (78-100) fL MCH (26-32) pg MCHC (32-36) g/dL RDW (11.5-14.0) % Plt Count (150-450) x10^3/uL MPV (7.5-11.0) fL Gran % (36.0-66.0) % Immature Gran % (Auto) (0.00-0.4) % Nucleat RBC Rel Count (0.00-0.1) % Eos # (Auto) (0-0.5) x10^3/uL Immature Gran # (Auto) (0.00-0.03) x10^3u/L Absolute Lymphs (auto) (1.0-4.6) x10^3/uL Absolute Monos (auto) (0.0-1.3) x10^3/uL Absolute Nucleated RBC (0.00-0.01) x10^3u/L Lymphocytes % (24.0-44.0) % Monocytes % (0.0-12.0) % Eosinophils % (0.00-5.0) % Basophils % (0.0-0.4) % Absolute Granulocytes (1.4-6.9) x10^3/uL Basophils # (0-0.4) x10^3/uL Sodium 136 L (137-145) mmol/L Potassium 5.3 H (3.5-5.1) mmol/L Chloride 111 H (98-107) mmol/L Carbon Dioxide 14 L* (22-30) mmol/L Anion Gap 16.0 H (5-15) MEQ/L BUN 28 H (7-17) mg/dL Creatinine 1.50 H (0.52-1.04) mg/dL Estimated GFR 36.9 ML/MIN Glucose 114 H (74-106) mg/dL Lactic Acid (0.4-2.0) Calcium 9.6 (8.4-10.2) mg/dL Total Bilirubin 0.40 (0.2-1.3) mg/dL AST 28 (14-36) U/L ALT 21 (0-35) U/L Alkaline Phosphatase 145 H (38-126) U/L Troponin I < 0.012 (0.000-0.034) ng/mL Serum Total Protein 8.1 (6.3-8.2) g/dL Albumin 4.9 (3.5-5.0) g/dL Urine Color Dark Yellow A (Yellow) Urine Appearance Turbid A (Clear) Urine pH 5.0 (4.6-8.0) Ur Specific [place] >=1.030 A (1.005-1.030) Urine Protein 100 A (Negative) Urine Ketones Trace A (Negative) Urine Blood Moderate A (Negative) Urine Nitrite Negative (Negative) Urine Bilirubin Small A (Negative) Urine Urobilinogen 1.0 A (0.2) mg/dL Ur Leukocyte Esterase Moderate A (Negative) U Hyaline Cast (Auto) >50 A (0-2) /LPF Urine Microscopic RBC 11-15 A (0-5) /HPF Urine Microscopic WBC >100 A (0-5) /HPF Ur Epithelial Cells Few (None Seen) /HPF Urine Bacteria None Seen (None Seen) /HPF Urine Culture Reflexed YES (NO) Urine Glucose Negative (Negative) mg/dL Influenza Type A Ag (NEGATIVE) Influenza Type B Ag (NEGATIVE) RSV (PCR) (Negative) SARS-CoV-2 (PCR) (NEGATIVE) 02/23/22 02/23/22 02/23/22 Range/Units 02:34 02:30 01:50 WBC 10.1 (4.0-10.5) x10^3/uL RBC 4.65 (4.1-5.4) x10^6/uL Hgb 11.8 L (12.0-16.0) g/dL Hct 39.4 (35-47) % MCV 84.7 (78-100) fL MCH 25.4 L (26-32) pg MCHC 29.9 L (32-36) g/dL RDW 15.7 H (11.5-14.0) % Plt Count 313 (150-450) x10^3/uL MPV 10.0 (7.5-11.0) fL Gran % 81.5 H (36.0-66.0) % Immature Gran % (Auto) 1.4 H (0.00-0.4) % Nucleat RBC Rel Count 0.0 (0.00-0.1) % Eos # (Auto) 0.05 (0-0.5) x10^3/uL Immature Gran # (Auto) 0.14 H (0.00-0.03) x10^3u/L Absolute Lymphs (auto) 1.06 (1.0-4.6) x10^3/uL Absolute Monos (auto) 0.52 (0.0-1.3) x10^3/uL Absolute Nucleated RBC 0.00 (0.00-0.01) x10^3u/L Lymphocytes % 10.5 L (24.0-44.0) % Monocytes % 5.2 (0.0-12.0) % Eosinophils % 0.5 (0.00-5.0) % Basophils % 0.9 (0.0-0.4) % Absolute Granulocytes 8.23 H (1.4-6.9) x10^3/uL Basophils # 0.09 (0-0.4) x10^3/uL Sodium (137-145) mmol/L Potassium (3.5-5.1) mmol/L Chloride (98-107) mmol/L Carbon Dioxide (22-30) mmol/L Anion Gap (5-15) MEQ/L BUN (7-17) mg/dL Creatinine (0.52-1.04) mg/dL Estimated GFR ML/MIN Glucose (74-106) mg/dL Lactic Acid 1.3 (0.4-2.0) Calcium (8.4-10.2) mg/dL Total Bilirubin (0.2-1.3) mg/dL AST (14-36) U/L ALT (0-35) U/L Alkaline Phosphatase (38-126) U/L Troponin I (0.000-0.034) ng/mL Serum Total Protein (6.3-8.2) g/dL Albumin (3.5-5.0) g/dL Urine Color (Yellow) Urine Appearance (Clear) Urine pH (4.6-8.0) Ur Specific [place] (1.005-1.030) Urine Protein (Negative) Urine Ketones (Negative) Urine Blood (Negative) Urine Nitrite (Negative) Urine Bilirubin (Negative) Urine Urobilinogen (0.2) mg/dL Ur Leukocyte Esterase (Negative) U Hyaline Cast (Auto) (0-2) /LPF Urine Microscopic RBC (0-5) /HPF Urine Microscopic WBC (0-5) /HPF Ur Epithelial Cells (None Seen) /HPF Urine Bacteria (None Seen) /HPF Urine Culture Reflexed (NO) Urine Glucose (Negative) mg/dL Influenza Type A Ag NEGATIVE (NEGATIVE) Influenza Type B Ag NEGATIVE (NEGATIVE) RSV (PCR) NEGATIVE (Negative) SARS-CoV-2 (PCR) NEGATIVE (NEGATIVE) All labs reviewed - Progress Progress: improved Progress Note: 02/23/22 03:25 Pt wo evidence for pneumonia/Influenza/CV19/CA/CHF. CXR is unchanged, and pt is at her baseline on chronic 2.5L O2 NC. Pt does have a chronic UTI but could not find a C&S for previous UA's. She will be given 1gm IM Rocephin and will f/u w Dr. Perry for further antibiotic therapy. 02/23/22 03:32 All labs/CXR reviewed and results shared w patient 02/23/22 03:46 Counseled pt/family regarding: lab results, diagnosis, need for follow-up, rad results - Departure Departure Disposition: Home Clinical Impression: Chronic UTI, COPD (chronic obstructive pulmonary disease) with chronic bronchitis Condition: Stable Critical Care Time: No Referrals: LLUVIA PERRY DO [Primary Care Provider] - Follow up/PCP as directed Instructions: Urinary Tract Infection, Adult (DC), Shortness of Breath (Dyspnea) (DC), Exacerbation of COPD (DC), Chronic Obstructive Pulmonary Disease Additional Instructions: Follow up with Dr. Perry in 1-2 days Return to ER for increasing shortness of breath, worsening cough, or temperature greater than 100.5
[2022-02-23 02:03] LABS: Appearance Turbid (Clear); Bacteria None Seen /HPF (None Seen); Bilirubin Small (Negative); Blood Moderate (Negative); Epithelial Cells Few /HPF (None Seen); Glucose Negative (Negative); Hyaline Casts >50 /LPF (0-2); Ketones Trace (Negative); Leukocyte Esterase Moderate (Negative); Nitrite Negative (Negative); Protein,Urine Dip 100 (Negative); Specific Gravity >=1.030 (1.005-1.030); WBC >100 /HPF (0-5)
[2022-02-23 02:11] LABS: ADD URINE CULTURE? YES (NO)
[2022-02-23 02:17] LABS: INFLUENZA A NEGATIVE (NEGATIVE); INFLUENZA B NEGATIVE (NEGATIVE); RESPIRATORY SYNCTIAL VIRUS NEGATIVE (Negative); SARS-CoV-2 Xpert Express NEGATIVE (NEGATIVE)
[2022-02-23 02:39] LABS: Absolute Neutrophil Ct (ANC) 8.23 x10^3/uL (1.4-6.9); Basophil (Absolute #) 0.09 x10^3/uL (0-0.4); Eosinophil % 0.5 % (0.00-5.0); Eosinophil (Absolute #) 0.05 x10^3/uL (0-0.5); Hematocrit 39.4 % (35-47); Hemoglobin 11.8 g/dL (12.0-16.0); Lymphocyte (Absolute #) 1.06 x10^3/uL (1.0-4.6); Lymphocytes % 10.5 % (24.0-44.0); Mean Cell Volume 84.7 fL (78-100); Mean Corpuscular Hemoglobin 25.4 pg (26-32); Mean Corpuscular Hgb Concent. 29.9 g/dL (32-36); Monocyte (Absolute #) 0.52 x10^3/uL (0.0-1.3); Monocytes % 5.2 % (0.0-12.0); Neutrophil % 81.5 % (36.0-66.0); Platelet Count 313 x10^3/uL (150-450); Red Blood Count 4.65 x10^6/uL (4.1-5.4); Red Cell Distribution Width 15.7 % (11.5-14.0); White Blood Count 10.1 x10^3/uL (4.0-10.5)
[2022-02-23 03:06] LABS: ALBUMIN 4.9 g/dL (3.5-5.0); BILIRUBIN,TOTAL 0.4 mg/dL (0.2-1.3); Calcium 9.6 mg/dL (8.4-10.2); Creatinine 1 1.5 mg/dL (0.52-1.04); EST GLOMERULAR FILTRATION RATE 36.9 ML/MIN; Potassium 5.3 mmol/L (3.5-5.1); Total Protein 8.1 g/dL (6.3-8.2)
[2022-02-23 03:07] VITALS: BP 114/84; PULSE 78
[2022-02-23] MEDS ORDERED: Rocephin 1000 MG INJ IM ONE (03:23)
[2022-02-23 03:31] VITALS: O2SAT 99
[2022-02-23] MEDS ORDERED: Rocephin 1000 MG INJ ONE (03:32)
[2022-02-23] MEDS ORDERED: XYLOCAINE 1% HCL 20 ML MDV ONE (03:33)
--- NOTE | 2022-02-23 08:46 | XRAY ---
Indication: Cough and short of breath. Comparison: January 21, 2022. Portable chest is now clear. Heart not enlarged again with incidental right hilar calcified nodes and right Port-A-Cath. Bony thorax intact with mild osteopenia. Impression: Nonacute chest with chronic features.
== END 2022-02-23 03:43 | disposition home or self-care (01) ==
LOC: ED 01:28
DX: N39.0 Urinary tract infection, site not specified (principal); J42 Unspecified chronic bronchitis; R05.3 Chronic cough; R06.00 Dyspnea, unspecified; R35.0 Frequency of micturition; Z99.81 Dependence on supplemental oxygen; Z20.822 Contact with and (suspected) exposure to COVID-19; Z79.899 Other long term (current) drug therapy
CPT/HCPCS: 0241U; 36415; 71045; 80053; 81001; 83605; 84484; 85025; 87077; 87086; 87186; 96372; 99283; J0696

== ENCOUNTER 2022-03-07 12:40 | Emergency (ER) | payer MEDICARE ==
[2022-03-07 13:54] VITALS: BP 92/62; PULSE 85; O2SAT 97
[2022-03-07 13:55] LABS: Appearance Clear (Clear); Bacteria None Seen /HPF (None Seen); Bilirubin Small (Negative); Blood Negative (Negative); Epithelial Cells Rare /HPF (None Seen); Glucose, Urine Negative (Negative); Ketones Negative (Negative); Leukocyte Esterase Moderate (Negative); Nitrite Positive (Negative); Ph 5.5 (4.6-8.0); Protein,Urine Dip 30 (Negative)
[2022-03-07 13:56] LABS: ADD URINE CULTURE? YES (NO)
[2022-03-07] MEDS ORDERED: Levofloxacin 250MG Tablet PO ONE (14:10)
[2022-03-07] MEDS ORDERED: TORAdol 10 MG TABLET PO STA (14:14)
--- NOTE | 2022-03-07 14:17 | ERPHSYRPT ---
- History of Present Illness Time Seen by Provider: 03/07/22 12:45 Source: patient Exam Limitations: no limitations Patient Subjective Stated Complaint: pt here for pain, she states she is being treated for UTI and has ran out of pyrdium Triage Nursing Assessment: pt walked in, resp easy, skin w/d/p. skin w/d/p, abd soft, rocking back and forth in pain, o2 per home, face mask in place Physician History: 66 years old female with chronic respiratory failure secondary to COPD, multiple other medical problems including recurrent UTI doing follow-up with urology with urethral stricture requiring dilatation presented with 5-day history of increased urinary frequency burning despite being on antibiotics Omnicef for the last 4 days. No fever or chills reported. Patient does have follow-up appointment with urology day after tomorrow. Timing/Duration: day(s) (5), gradual onset, worse Activites at Onset: rest Quality: burning, sharpness Onset Location: suprapubic, urethral Pain Radiation: none Severity of Pain-Max: moderate Severity of Pain-Current: moderate Sexual intercourse history: non-contributory Modifying Factors: Improves With: nothing Associated Symptoms: dysuria, urinary frequency, No fever, No chills, No vomiting Allergies/Adverse Reactions: sumatriptan [From Imitrex] Allergy (Intermediate, Verified 03/07/22 12:49) Rash codeine Allergy (Mild, Verified 03/07/22 12:49) Rash MAKES SICK nitrofurantoin [From Macrobid] Allergy (Unknown, Verified 03/07/22 12:49) sumatriptan succinate [From Imitrex] Allergy (Verified 03/07/22 12:49) morphine Adverse Reaction (Severe, Verified 03/07/22 12:49) Headache MIGRAINES fentanyl Adverse Reaction (Intermediate, Verified 03/07/22 12:49) Headache hydrocodone bitartrate [From Vicodin] Adverse Reaction (Mild, Verified 03/07/22 12:49) Vomiting hydromorphone [From Dilaudid] Adverse Reaction (Mild, Verified 03/07/22 12:49) pt states makes heache worse. Home Medications: ALPRAZolam 1 MG [Xanax 1 mg] 1 mg PO TID 02/17/13 [History] Sennosides/Docusate Sodium [Senokot-S Tablet] 1 tab PO DAILY 04/25/15 [History] Cetirizine HCl/Pseudoephedrine [Zyrtec-D Tablet] 1 each PO DAILY 02/03/16 [History] Aspirin 81 mg PO DAILY 09/11/16 [History] Levothyroxine Sodium 50 Mcg [Synthroid 50 Mcg] 50 mcg PO DAILY 07/06/17 [History] Linaclotide [Linzess] 290 mcg PO DAILY 10/07/17 [History] Dexlansoprazole [Dexilant] 60 mg PO DAILY 01/21/20 [History] Fluticasone/Umeclidin/Vilanter [Trelegy Ellipta 100-62.5-25] 200 units IH DAILY 03/01/20 [History] Albuterol 2.5 mg/3 ml Neb [Proventil 2.5 mg/3 ml Neb] 2.5 mg IH QID 07/23/20 [History] Magnesium Oxide 400 mg [Mag-Ox 400] 400 mg PO DAILY 09/29/21 [History] dilTIAZem HCl [Diltiazem 24Hr ER (Cd)] 120 mg PO DAILY 09/29/21 [History] Omeprazole/Sodium Bicarbonate [Omeprazole-Bicarb 40-1,100 Cap] 1 cap PO DAILY 01/18/22 [History] Promethazine HCl 25 mg [Phenergan 25 mg] 25 mg PO BIDPRN PRN 01/18/22 [History] Prucalopride Succinate [Motegrity] 1 mg PO DAILY 01/18/22 [History] Cefdinir 300 mg PO BID 03/07/22 [History] Hx Tetanus, Diphtheria Vaccination/Date Given: Yes Hx Influenza Vaccination/Date Given: Yes Hx Pneumococcal Vaccination/Date Given: No Travel Risk - International Travel Have you traveled outside of the country in past 3 weeks: No - Coronavirus Screening Are you exhibiting any of the following symptoms?: No Close contact with a COVID-19 positive Pt in past 14-21 Days: No - Vaccine Status Have you recieved a 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: 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[employer] - Vaccination Dates Date of 2cond Vaccination (if applicable): unknown - Review of Systems Constitutional: No Symptoms Ears, Nose, & Throat: No Symptoms Respiratory: Dyspnea Cardiac: No Symptoms Abdominal/Gastrointestinal: No Symptoms Genitourinary Symptoms: Dysuria, Frequency Musculoskeletal: Arthralgias Skin: No Symptoms Neurological: No Symptoms Psychological: Anxiety Endocrine: No Symptoms Immunological/Allergic: No Symptoms - Past Medical History Pertinent Past Medical History: Yes Neurological History: Migraines ENT History: Cataracts Cardiac History: No Pertinent History Respiratory History: Bronchitis, COPD, Pulmonary Embolism Endocrine Medical History: Hypothyroidism Musculoskeletal History: Osteoarthritis GI Medical History: GERD, Other History: Other Psycho-Social History: Anxiety, Panic Disorder Female Reproductive Disorders: No Pertinent History Other Medical History: frequent uti's, chronic pseudo obstruction, blood clot - Past Surgical History Past Surgical History: Yes Neuro Surgical History: No Pertinent History Cardiac: No Pertinent History Respiratory: No Pertinent History Gastrointestinal: Cholecystectomy, Other Genitourinary: No Pertinent History Musculoskeletal: No Pertinent History Female Surgical History: No Pertinent History Other Surgical History: all of large intestine removed - Social History Smoking Status: Former smoker Exposure to second hand smoke: No Alcohol Use: None Drug Use: none Patient Lives Alone: Yes Significant Family History: no pertinent family hx - Nursing Vital Signs Nursing Vital Signs: Initial Vital Signs Temperature 97.7 F 03/07/22 12:50 Pulse Rate 110 H 03/07/22 12:50 Respiratory Rate 18 03/07/22 12:50 Blood Pressure 105/68 03/07/22 12:50 O2 Sat by Pulse Oximetry 99 03/07/22 12:50 Pain Scale Pain Intensity 7 - Physical Exam General Appearance: no apparent distress, alert, anxiety Eye Exam: PERRL/EOMI Ears, Nose, Throat Exam: normal ENT inspection Neck Exam: normal inspection, full range of motion Respiratory Exam: rhonchi, No respiratory distress Cardiovascular Exam: regular rate/rhythm, normal heart sounds Gastrointestinal/Abdomen Exam: soft, normal bowel sounds, No tenderness Back Exam: normal inspection Extremity Exam: normal inspection, normal range of motion Neurologic Exam: alert, 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, cooperative Skin Exam: normal color SpO2 Interpretation: normal SpO2: 97 O2 Delivery: Room Air Ordered Tests: Active Orders 24 hr Category Date Time Status CULTURE,URINE Stat Lab 03/07/22 13:08 Received UA W/RFX UR CULTURE Stat Lab 03/07/22 13:08 Completed Medication Summary Discontinued Medications Generic Name Dose Route Start Last Admin Trade Name Freq PRN Reason Stop Dose Admin Levofloxacin 500 mg 03/07/22 14:10 Levofloxacin 250 Mg Tab PO 03/07/22 14:11 STAT ONE Lab/Rad Data: Laboratory Results 03/07/22 Range/Units 13:08 Urine Color [place] A (Yellow) Urine Appearance Clear (Clear) Urine pH 5.5 (4.6-8.0) Ur Specific [place] 1.020 (1.005-1.030) Urine Protein 30 (Negative) Urine Glucose (UA) Negative (Negative) mg/dL Urine Ketones Negative (Negative) Urine Blood Negative (Negative) Urine Nitrite Positive A (Negative) Urine Bilirubin Small A (Negative) Urine Urobilinogen 1.0 A (0.2) mg/dL Ur Leukocyte Esterase Moderate A (Negative) U Hyaline Cast (Auto) 6-10 A (0-2) /LPF Urine Microscopic RBC 3-5 (0-5) /HPF Urine Microscopic WBC 11-20 A (0-5) /HPF Ur Epithelial Cells Rare (None Seen) /HPF Urine Bacteria None Seen (None Seen) /HPF Urine Culture Reflexed YES (NO) - Progress Progress: improved Air Movement: good Progress Note: 03/07/22 14:15 66 years old with multiple medical problems including chronic respiratory failure secondary to COPD on oxygen, recurrent UTI with urethral strictures needing dilatation in the past with Dr. Foote at [facility] is being treated for UTI for the last 5 days with Omnicef and no significant improvement. Still complaining of burning/dysuria/increased frequency. No fever or chills, vomiting or flank pain reported. Abdominal exam nonsurgical. Does have UTI with positive nitrates. I have reviewed the culture results from 03/03 which are positive/sensitive for cefazolin/ceftriaxone on but patient is not feeling much improvement with Omnicef. Patient has this recurrent problem, it is sensitive to ertapenem, I will give her a shot of ertapenem in here and will plan on setting outpatient injectable and recommended patient to talk to her primary care and urology about diet. Patient is allergic to narcotic pain medications and wants prescription of Toradol which she has taken in the past and does help. She is advised to keep appointment with urology. Discussed signs symptoms of worsening needing return to ER which she seems understanding. Blood Culture(s) Obtained: No Antibiotics given: Yes Counseled pt/family regarding: lab results, diagnosis, need for follow-up - Departure Departure Disposition: Home Clinical Impression: Acute UTI Condition: Stable Critical Care Time: No Referrals: LLUVIA CHILDERS DO [Primary Care Provider] - Follow Up with PCP/3 days EZEQUIEL COLON DO [NON-STAFF PHY W/O PRIVILEGES] - Follow up/PCP as directed (In 2 days as scheduled) Instructions: Urinary Tract Infection, Adult (DC) Additional Instructions: Increase hydration. Take Tylenol and Toradol as needed for pain. Follow-up with primary care and keep appointment with urology early next week. Return to ER for worsening of urinary symptoms or if having intractable nausea vomiting/fever chills/flank pain etc. Prescriptions: Ketorolac Trometh 10 mg Tab [TORAdol 10 MG TABLET] 10 mg PO Q8H PRN PRN 5 Days #5 tablet PRN Reason: Pain Levofloxacin [Levofloxacin 250MG Tablet] 250 mg PO DAILY 6 Days #6 tab
[2022-03-07] MEDS ORDERED: Invanz IM ONE (14:30)
== END 2022-03-07 15:07 | disposition home or self-care (01) ==
LOC: ED 12:40
DX: N39.0 Urinary tract infection, site not specified (principal); R35.0 Frequency of micturition; R30.0 Dysuria; Z79.899 Other long term (current) drug therapy
CPT/HCPCS: 81001; 87077; 87086; 87186; 96372; 99283; J1335; A9270-GY

== ENCOUNTER 2022-04-29 13:29 | Emergency (ER) | payer MEDICARE ==
[2022-04-29] MEDS ORDERED: TORAdol 30 mg Injection IV ONE (14:01)
[2022-04-29] MEDS ORDERED: BENADRYL 50 MG/ML IM ONE (14:02)
[2022-04-29] MEDS ORDERED: Compazine 10 MG/2 ML IM PRN (14:02)
--- NOTE | 2022-04-29 14:04 | ERPHSYRPT ---
- History of Present Illness Time Seen by Provider: 04/29/22 13:50 Source: patient Exam Limitations: no limitations Patient Subjective Stated Complaint: Pt states "I have a migraine, I have had it all week." Triage Nursing Assessment: Pt presented alert and oriented X 3, skin wpd. pt ambulates with an upright steady gait, able to speak in clear full sentence spt in no apparent respiratory distress. Physician History: Patient is a six 6-year-old female presents emergency department for evaluation of a migraine x1 week. Patient is on Eliquis. No trauma. No fever. No nausea vomiting or diaphoresis. Patient headache is frontal. No rhinorrhea or viral symptomology. No neck pain or photophobia. Patient states her headache is similar to her previous headaches. No numbness tingling or weakness. No blurred vision. No slurred speech. Patient requesting pain control. She voices no other complaints or concerns at this time. Portions of this note were created with voice recognition technology. There may be grammatical, spelling, punctuation or sound alike errors Timing/Duration: week(s) (1 week) Quality: aching Head Pain Location: frontal Severity of Pain-Max: moderate Severity of Pain-Current: mild Recent Head Trauma: no recent headache/trauma Modifying Factors: Improves With: other (Headache sensitive to light and sound.) Associated Symptoms: denies symptoms, sensitive to light, No facial pain, No loss of consciousness, No numbness in legs/feet, No seizures, No trouble walking, No vision changes, No weakness Previous symptoms: same symptoms as today Allergies/Adverse Reactions: sumatriptan [From Imitrex] Allergy (Intermediate, Verified 03/31/22 10:53) Rash codeine Allergy (Mild, Verified 03/31/22 10:53) Rash MAKES SICK nitrofurantoin [From Macrobid] Allergy (Unknown, Verified 03/31/22 10:53) sumatriptan succinate [From Imitrex] Allergy (Verified 03/31/22 10:53) morphine Adverse Reaction (Severe, Verified 03/31/22 10:53) Headache MIGRAINES fentanyl Adverse Reaction (Intermediate, Verified 03/31/22 10:53) Headache hydrocodone bitartrate [From Vicodin] Adverse Reaction (Mild, Verified 03/31/22 10:53) Vomiting hydromorphone [From Dilaudid] Adverse Reaction (Mild, Verified 03/31/22 10:53) pt states makes heache worse. Home Medications: ALPRAZolam 1 MG [Xanax 1 mg] 1 mg PO TID 02/17/13 [History] Sennosides/Docusate Sodium [Senokot-S Tablet] 1 tab PO DAILY 04/25/15 [History] Cetirizine HCl/Pseudoephedrine [Zyrtec-D Tablet] 1 each PO DAILY 02/03/16 [History] Aspirin 81 mg PO DAILY 09/11/16 [History] Levothyroxine Sodium 50 Mcg [Synthroid 50 Mcg] 50 mcg PO DAILY 07/06/17 [History] Linaclotide [Linzess] 290 mcg PO DAILY 10/07/17 [History] Dexlansoprazole [Dexilant] 60 mg PO DAILY 01/21/20 [History] Fluticasone/Umeclidin/Vilanter [Trelegy Ellipta 100-62.5-25] 200 units IH DAILY 03/01/20 [History] Albuterol 2.5 mg/3 ml Neb [Proventil 2.5 mg/3 ml Neb] 2.5 mg IH QID 07/23/20 [History] Magnesium Oxide 400 mg [Mag-Ox 400] 400 mg PO DAILY 09/29/21 [History] dilTIAZem HCl [Diltiazem 24Hr ER (Cd)] 120 mg PO DAILY 09/29/21 [History] Omeprazole/Sodium Bicarbonate [Omeprazole-Bicarb 40-1,100 Cap] 1 cap PO DAILY 01/18/22 [History] Promethazine HCl 25 mg [Phenergan 25 mg] 25 mg PO BIDPRN PRN 01/18/22 [History] Prucalopride Succinate [Motegrity] 1 mg PO DAILY 01/18/22 [History] Hx Tetanus, Diphtheria Vaccination/Date Given: Yes Hx Influenza Vaccination/Date Given: Yes Hx Pneumococcal Vaccination/Date Given: No Immunizations Up to Date: Yes Travel Risk - International Travel Have you traveled outside of the country in past 3 weeks: No - Coronavirus Screening Are you exhibiting any of the following symptoms?: No Close contact with a COVID-19 positive Pt in past 14-21 Days: No - Vaccine Status Have you recieved a 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: Yes 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: Pfizer - Vaccination Dates Date of 2cond Vaccination (if applicable): unknown - Review of Systems Constitutional: No Symptoms, No Fever, No Chills Eyes: No Symptoms Ears, Nose, & Throat: No Symptoms Respiratory: No Symptoms, No Cough, No Dyspnea Cardiac: No Symptoms, No Chest Pain, No Edema, No Syncope Abdominal/Gastrointestinal: No Symptoms, No Abdominal Pain, No Nausea, No Vomiting, No Diarrhea Genitourinary Symptoms: No Symptoms, No Dysuria Musculoskeletal: No Symptoms, No Back Pain, No Neck Pain Skin: No Symptoms, No Rash Neurological: No Symptoms, No Dizziness, No Focal Weakness, No Sensory Changes Psychological: No Symptoms Endocrine: No Symptoms Hematologic/Lymphatic: No Symptoms Immunological/Allergic: No Symptoms All Other Systems: Reviewed and Negative - Past Medical History Pertinent Past Medical History: Yes Neurological History: Migraines ENT History: Cataracts Cardiac History: No Pertinent History Respiratory History: Bronchitis, COPD, Pulmonary Embolism Endocrine Medical History: Hypothyroidism Musculoskeletal History: Osteoarthritis GI Medical History: GERD, Other History: Other Psycho-Social History: Anxiety, Panic Disorder Female Reproductive Disorders: No Pertinent History Other Medical History: frequent uti's, chronic pseudo obstruction, blood clot - Past Surgical History Past Surgical History: Yes Neuro Surgical History: No Pertinent History Cardiac: No Pertinent History Respiratory: No Pertinent History Gastrointestinal: Cholecystectomy, Other Genitourinary: No Pertinent History Musculoskeletal: No Pertinent History Female Surgical History: No Pertinent History Other Surgical History: all of large intestine removed - Social History Smoking Status: Former smoker Exposure to second hand smoke: No Alcohol Use: None Drug Use: none Patient Lives Alone: Yes Significant Family History: no pertinent family hx - Nursing Vital Signs Nursing Vital Signs: Initial Vital Signs Temperature 97.2 F 04/29/22 13:36 Pulse Rate 96 H 04/29/22 13:36 Respiratory Rate 20 04/29/22 13:36 Blood Pressure 116/65 04/29/22 13:36 O2 Sat by Pulse Oximetry 98 04/29/22 13:36 Pain Scale Pain Intensity 10 - Physical Exam General Appearance: no apparent distress Eye Exam: PERRL/EOMI Ears, Nose, Throat Exam: normal ENT inspection, TMs normal, pharynx normal, moist mucous membranes Neck Exam: normal inspection, supple, full range of motion, No meningismus Respiratory Exam: normal breath sounds, lungs clear, airway intact, No respiratory distress Cardiovascular Exam: regular rate/rhythm, normal heart sounds, normal peripheral pulses Gastrointestinal/Abdominal Exam: soft, normal bowel sounds, No tenderness, No distention Back Exam: normal inspection, normal range of motion, No CVA tenderness Extremity Exam: normal inspection, normal range of motion 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, 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, 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 Exam: normal speech, PERRL, No facial droop Coordination/Gait Exam: normal finger to nose, normal gait, normal cerebellar function Motor/Sensory Exam: no motor deficit, no sensory deficit Skin Exam: normal color, warm, dry, No rash Lymphatic Exam: No adenopathy SpO2 Interpretation: normal SpO2: 98 O2 Delivery: Room Air - Course Nursing assessment & vital signs reviewed: Yes Ordered Tests: Active Orders 24 hr Category Date Time Status AMA [Release AMA] OM.NOW Care 04/29/22 15:48 Active Medication Summary Generic Name Dose Route Start Last Admin Trade Name Freq PRN Reason Stop Dose Admin Prochlorperazine Edisylate 10 mg 04/29/22 14:02 04/29/22 14:15 Prochlorperazine Edisylate 10 Mg/2 Ml Vial IM 05/29/22 14:01 10 mg Q6H PRN PRN Administration NAUSEA/VOMITING Discontinued Medications Generic Name Dose Route Start Last Admin Trade Name Freq PRN Reason Stop Dose Admin Diphenhydramine HCl 50 mg 04/29/22 14:02 04/29/22 14:14 Diphenhydramine Hcl 50 Mg/Ml Vial IM 04/29/22 14:03 50 mg STAT ONE Administration Diphenhydramine HCl Confirm 04/29/22 14:07 Diphenhydramine Hcl 50 Mg/Ml Vial Administered 04/29/22 14:08 Dose 50 mg .ROUTE .STK-MED ONE Droperidol 2.5 mg 04/29/22 15:24 04/29/22 15:36 Droperidol 5 Mg/2 Ml Vial IV 04/29/22 15:25 Not Given STAT ONE Droperidol 5 mg 04/29/22 15:27 04/29/22 15:32 Droperidol 5 Mg/2 Ml Vial IM 04/29/22 15:28 2.5 mg STAT ONE Administration Droperidol Confirm 04/29/22 15:31 Droperidol 5 Mg/2 Ml Vial Administered 04/29/22 15:32 Dose 5 mg .ROUTE .STK-MED ONE Ketorolac Tromethamine 30 mg 04/29/22 14:01 04/29/22 14:13 Ketorolac Tromethamine 30 Mg/Ml Inj IV 04/29/22 14:02 30 mg STAT ONE Administration Ketorolac Tromethamine Confirm 04/29/22 14:07 Ketorolac Tromethamine 30 Mg/Ml Inj Administered 04/29/22 14:08 Dose 30 mg .ROUTE .STK-MED ONE - Progress Progress: improved Air Movement: good Progress Note: In light of patient's history of blood thinners/Eliquis we advised CT head. CT head ordered. Patient refused CT head. Patient will be leaving AGAINST MEDICAL ADVICE. Headache improved but not completely resolved. Patient states he is ready for discharge. Portions of this note were created with voice recognition technology. There may be grammatical, spelling, punctuation or sound alike errors 04/29/22 15:54 Patient is a 66-year-old female with a history of migraine headaches presents to our ED with a 1 week history of a headache. Patient is also on a blood thinner. Patient declined CT head as she does not feel it is necessary. Patient refused care in light of her blood thinner we are worried about it intracranial bleed. Patient reassessed. Headache improved after treatment. Patient will be leaving AMA. Patient states her granddaughter is on her way. Physical exam is essentially within normal limits. No focal or lateralizing symptoms. Comple xity of problem addressed is low. Problem is acute uncomplicated. No critical care time. Complexity of data reviewed and analyzed is none. Differential diagnosis made based on history and physical exam. Unable to exclude intracranial hemorrhage due to patient's refusal of complete evaluation. Patient served as independent historian. Risk of complication and or morbidity/mortality of patient management is moderate. Patient received droperidol, Compazine, Benadryl and Toradol. Patient's medications were administered IM. Patient's medications required monitoring. Patient will be discharged home. She agrees to follow-up with her primary care doctor within 48 hours for reevaluation. Patient states her daughter will be picking her up. Portions of this note were created with voice recognition technology. There may be grammatical, spelling, punctuation or sound alike errors 04/29/22 16:07 Blood Culture(s) Obtained: No Antibiotics given: No Counseled pt/family regarding: diagnosis, need for follow-up - Departure Departure Disposition: AMA Clinical Impression: Migraine, Headache Condition: Stable Critical Care Time: No Referrals: LLUVIA CHILDERS, [Primary Care Provider] - Follow up/PCP as directed Additional Instructions: Discharge/Care Plan GEOVANNY FREY was seen on 04/29/22 in the Emergency Room. The patient was counseled regarding Diagnosis,Lab results, Imaging studies, need for follow up and when to return to the Emergency Room. Prescriptions given: Discharge Note I have spoken with the patient and/or caregivers. I have explained the patient's condition, diagnosis and treatment plan based on the information available to me at this time. I have answered the patient's and/or caregiver's questions and addressed any concerns. The patient and/or caregivers have as good understanding of the patient's diagnosis, condition and treatment plan as can be expected at this point. The vital signs have been stable. The patient's condition is stable and appropriate for discharge from the emergency department. The patient will pursue further outpatient evaluation with the primary care physician or other designated or consulting physician as outlined in the discharge instructions. The patient and/or caregivers are agreeable to this plan of care and follow-up instructions have been explained in detail. The patient and/or caregivers have received these instruction. The patient/and or caregivers are aware that any significant change in condition or worsening of symptoms should prompt an immediate return to this or the closest emergency department or call 911.
[2022-04-29] MEDS ORDERED: BENADRYL 50 MG/ML ONE (14:07)
[2022-04-29] MEDS ORDERED: Compazine 10 MG/2 ML ONE (14:07)
[2022-04-29] MEDS ORDERED: TORAdol 30 mg Injection ONE (14:07)
[2022-04-29 15:53] VITALS: O2SAT 98
[2022-04-29 16:06] VITALS: BP 102/70; PULSE 80
== END 2022-04-29 16:27 | disposition left against medical advice (07) ==
LOC: ED 13:29
DX: G43.909 Migraine, unspecified, not intractable, without status migrainosus (principal); Z79.01 Long term (current) use of anticoagulants; Z79.899 Other long term (current) drug therapy
CPT/HCPCS: 96372; 96374; 99284; J1200; J1885

== ENCOUNTER 2022-05-01 11:52 | Emergency (ER) | payer MEDICARE ==
[2022-05-01] MEDS ORDERED: TORAdol 30 mg Injection IM ONE (15:11)
[2022-05-01] MEDS ORDERED: Compazine 10 MG/2 ML IV ONE (15:11)
[2022-05-01] MEDS ORDERED: BENADRYL 50 MG/ML IM ONE (15:11)
[2022-05-01] MEDS ORDERED: Imitrex 6 MG/0.5 ML SQ STA (15:14)
--- NOTE | 2022-05-01 15:15 | ERPHSYRPT ---
- History of Present Illness Time Seen by Provider: 05/01/22 15:15 Source: patient Exam Limitations: no limitations Patient Subjective Stated Complaint: here for headache for a week now, was seen in er a few days ago she got im injection but states she wants iv meds Triage Nursing Assessment: pt alert, resp easy, o2 in place per home, skin w/d/p. sun glasses in place Physician History: Migraine headaches for the past week, recently treated in ER Avoids triggers, Maxalt not helping Interfering w/ daily activities. Interfering w/ sleep. Associated symptoms: sensitivity to light, visual disturbance, N/V, difficulty c oncentrating Denies focal weakness, speech difficulties Timing/Duration: week(s) Quality: sharpness, stabbing, throbbing Head Pain Location: frontal, temporal Severity of Pain-Max: severe Severity of Pain-Current: severe Recent Head Trauma: frequent headaches, chronic headaches Modifying Factors: Improves With: medication, rest. Worsens With: exposure to light, noise Associated Symptoms: dizziness, fatigue, light-headedness, nausea/vomiting, sensitive to light, weakness, No confusion, No fever/chills, No loss of consciousness, No nasal congestion, No nasal drainage, No neck pain, No numbness in legs/feet, No rash, No seizures, No speech problems, No stiff neck, No trouble walking, No vision changes Previous symptoms: same symptoms as today Allergies/Adverse Reactions: sumatriptan [From Imitrex] Allergy (Intermediate, Verified 05/01/22 12:10) Rash codeine Allergy (Mild, Verified 05/01/22 12:10) Rash MAKES SICK nitrofurantoin [From Macrobid] Allergy (Unknown, Verified 05/01/22 12:10) sumatriptan succinate [From Imitrex] Allergy (Verified 05/01/22 12:10) morphine Adverse Reaction (Severe, Verified 05/01/22 12:10) Headache MIGRAINES fentanyl Adverse Reaction (Intermediate, Verified 05/01/22 12:10) Headache hydrocodone bitartrate [From Vicodin] Adverse Reaction (Mild, Verified 05/01/22 12:10) Vomiting hydromorphone [From Dilaudid] Adverse Reaction (Mild, Verified 05/01/22 12:10) pt states makes heache worse. Home Medications: ALPRAZolam 1 MG [Xanax 1 mg] 1 mg PO TID 02/17/13 [History] Sennosides/Docusate Sodium [Senokot-S Tablet] 1 tab PO DAILY 04/25/15 [History] Cetirizine HCl/Pseudoephedrine [Zyrtec-D Tablet] 1 each PO DAILY 02/03/16 [History] Aspirin 81 mg PO DAILY 09/11/16 [History] Levothyroxine Sodium 50 Mcg [Synthroid 50 Mcg] 50 mcg PO DAILY 07/06/17 [History] Linaclotide [Linzess] 290 mcg PO DAILY 10/07/17 [History] Dexlansoprazole [Dexilant] 60 mg PO DAILY 01/21/20 [History] Fluticasone/Umeclidin/Vilanter [Trelegy Ellipta 100-62.5-25] 200 units IH DAILY 03/01/20 [History] Albuterol 2.5 mg/3 ml Neb [Proventil 2.5 mg/3 ml Neb] 2.5 mg IH QID 07/23 [History] Magnesium Oxide 400 mg [Mag-Ox 400] 400 mg PO DAILY 09/29/21 [History] dilTIAZem HCl [Diltiazem 24Hr ER (Cd)] 120 mg PO DAILY 09/29/21 [History] Omeprazole/Sodium Bicarbonate [Omeprazole-Bicarb 40-1,100 Cap] 1 cap PO DAILY 01/18/22 [History] Promethazine HCl 25 mg [Phenergan 25 mg] 25 mg PO BIDPRN PRN 01/18/22 [History] Prucalopride Succinate [Motegrity] 1 mg PO DAILY 01/18/22 [History] Ferrous Sulfate 1 ea DAILY 05/01/22 [History] Sodium Bicarbonate 1 ea BID 05/01/22 [History] Hx Tetanus, Diphtheria Vaccination/Date Given: Yes Hx Influenza Vaccination/Date Given: Yes Hx Pneumococcal Vaccination/Date Given: No Immunizations Up to Date: Yes Travel Risk - International Travel Have you traveled outside of the country in past 3 weeks: No - Coronavirus Screening Are you exhibiting any of the following symptoms?: No - Vaccine Status Have you recieved a 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: Yes Science Liaison: Pfizer - Vaccination Dates Date of 2cond Vaccination (if applicable): unknown - Review of Systems Constitutional: Fatigue, Weakness, No Fever, No Chills Eyes: Vision Changes, No Eye Pain Ears, Nose, & Throat: No Symptoms Respiratory: No Symptoms Cardiac: No Symptoms Abdominal/Gastrointestinal: Nausea, Vomiting Genitourinary Symptoms: No Symptoms Musculoskeletal: No Symptoms Skin: No Symptoms Neurological: Dizziness, Headache, Irritability, Lethargy, No Focal Weakness, No Gait Changes, No Paralysis, No Parasthesia, No Seizure, No Sensory Changes, No Speech Changes, No Tremors Psychological: No Symptoms Endocrine: No Symptoms Hematologic/Lymphatic: No Symptoms Immunological/Allergic: No Symptoms All Other Systems: Reviewed and Negative - Past Medical History Pertinent Past Medical History: Yes Neurological History: Migraines ENT History: Cataracts Cardiac History: No Pertinent History Respiratory History: Bronchitis, COPD, Pulmonary Embolism Endocrine Medical History: Hypothyroidism Musculoskeletal History: Osteoarthritis GI Medical History: GERD, Other History: Other Psycho-Social History: Anxiety, Panic Disorder Female Reproductive Disorders: No Pertinent History Other Medical History: frequent uti's, chronic pseudo obstruction, blood clot - Past Surgical History Past Surgical History: Yes Neuro Surgical History: No Pertinent History Cardiac: No Pertinent History Respiratory: No Pertinent History Gastrointestinal: Cholecystectomy, Other Genitourinary: No Pertinent History Musculoskeletal: No Pertinent History Female Surgical History: No Pertinent History Other Surgical History: all of large intestine removed - Social History Smoking Status: Former smoker Exposure to second hand smoke: No Alcohol Use: None Drug Use: none Patient Lives Alone: Yes Significant Family History: no pertinent family hx - Nursing Vital Signs Nursing Vital Signs: Initial Vital Signs Temperature 98.3 F 05/01/22 12:08 Pulse Rate 95 H 05/01/22 12:08 Respiratory Rate 20 05/01/22 12:08 Blood Pressure 109/75 05/01/22 12:08 O2 Sat by Pulse Oximetry 98 05/01/22 12:08 Pain Scale Pain Intensity 5 - Physical Exam General Appearance: mild distress Eye Exam: PERRL/EOMI, eyes nml inspection Ears, Nose, Throat Exam: normal ENT inspection Neck Exam: normal inspection, non-tender, supple, full range of motion, No Brudzinski, No Kernig's Respiratory Exam: normal breath sounds, lungs clear, airway intact, No chest tenderness, No respiratory distress Cardiovascular Exam: regular rate/rhythm, normal heart sounds, capillary refill <2 sec, No edema Gastrointestinal/Abdominal Exam: soft, normal bowel sounds, No tenderness Back Exam: normal inspection, normal range of motion, No CVA tenderness Extremity Exam: normal inspection, normal range of motion 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, 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, agitated, 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 Exam: normal hearing, normal speech, PERRL, tongue midline Coordination/Gait Exam: normal finger to nose, normal gait, normal cerebellar function Motor/Sensory Exam: no motor deficit, no sensory deficit, no pronator drift, negative Babinski's sign Skin Exam: normal color, warm, dry, No rash SpO2 Interpretation: normal SpO2: 98 O2 Delivery: Room Air - Course Nursing assessment & vital signs reviewed: Yes - CT Exams Head CT Interpretation: Negative, Tele-radiologist Report Ordered Tests: Medication Summary Discontinued Medications Generic Name Dose Route Start Last Admin Trade Name Freq PRN Reason Stop Dose Admin Diphenhydramine HCl 50 mg 05/01/22 15:11 05/01/22 15:28 Diphenhydramine Hcl 50 Mg/Ml Vial IM 05/01/22 15:12 50 mg STAT ONE Administration Diphenhydramine HCl Confirm 05/01/22 15:25 Diphenhydramine Hcl 50 Mg/Ml Vial Administered 05/01/22 15:26 Dose 50 mg .ROUTE .STK-MED ONE Sodium Chloride 1,000 mls @ 999 mls/hr 05/01/22 15:59 05/01/22 16:31 Sodium Chloride 0.9% 1000 Ml IV 05/01/22 16:59 Not Given .Q1H1M STA Ketorolac Tromethamine 60 mg 05/01/22 15:11 05/01/22 15:29 Ketorolac Tromethamine 30 Mg/Ml Inj IM 05/01/22 15:12 60 mg STAT ONE Administration Ketorolac Tromethamine Confirm 05/01/22 15:25 Ketorolac Tromethamine 30 Mg/Ml Inj Administered 05/01/22 15:26 Dose 60 mg .ROUTE .STK-MED ONE Prochlorperazine Edisylate 10 mg 05/01/22 15:11 05/01/22 15:29 Prochlorperazine Edisylate 10 Mg/2 Ml Vial IV 05/01/22 15:12 10 mg STAT ONE Administration Prochlorperazine Edisylate Confirm 05/01/22 15:25 Prochlorperazine Edisylate 10 Mg/2 Ml Vial Administered 05/01/22 15:26 Dose 10 mg .ROUTE .STK-MED ONE Sumatriptan Succinate 6 mg 05/01/22 15:14 05/01/22 15:29 Sumatriptan Succinate 6 Mg/0.5 Ml Vial SQ 05/01/22 15:15 6 mg STAT STA Administration Sumatriptan Succinate Confirm 05/01/22 15:25 Sumatriptan Succinate 6 Mg/0.5 Ml Vial Administered 05/01/22 15:26 Dose 6 mg SQ .STK-MED ONE Lab/Rad Data: Laboratory Result Diagrams 05/01/22 15:30 05/01/22 15:30 Laboratory Results 05/01/22 05/01/22 05/01/22 Range/Units 15:30 15:30 15:30 WBC 5.6 (4.0-10.5) x10^3/uL RBC 3.78 L (4.1-5.4) x10^6/uL Hgb 9.4 L (12.0-16.0) g/dL Hct 31.8 L (35-47) % MCV 84.1 (78-100) fL MCH 24.9 L (26-32) pg MCHC 29.6 L (32-36) g/dL RDW 16.2 H (11.5-14.0) % Plt Count 223 (150-450) x10^3/uL MPV 10.3 (7.5-11.0) fL Gran % 77.6 H (36.0-66.0) % Immature Gran % (Auto) 0.5 H (0.00-0.4) % Nucleat RBC Rel Count 0.0 (0.00-0.1) % Eos # (Auto) 0.04 (0-0.5) x10^3/uL Immature Gran # (Auto) 0.03 (0.00-0.03) x10^3u/L Absolute Lymphs (auto) 0.89 L (1.0-4.6) x10^3/uL Absolute Monos (auto) 0.28 (0.0-1.3) x10^3/uL Absolute Nucleated RBC 0.00 (0.00-0.01) x10^3u/L Lymphocytes % 15.8 L (24.0-44.0) % Monocytes % 5.0 (0.0-12.0) % Eosinophils % 0.7 (0.00-5.0) % Basophils % 0.4 (0.0-0.4) % Absolute Granulocytes 4.37 (1.4-6.9) x10^3/uL Basophils # 0.02 (0-0.4) x10^3/uL Sodium 142 (137-145) mmol/L Potassium 3.8 (3.5-5.1) mmol/L Chloride 114 H (98-107) mmol/L Carbon Dioxide 21 L (22-30) mmol/L Anion Gap 11.1 (5-15) MEQ/L BUN 22 H (7-17) mg/dL Creatinine 1.21 H (0.52-1.04) mg/dL Estimated GFR 47.3 ML/MIN Glucose 91 (74-106) mg/dL Calcium 8.8 (8.4-10.2) mg/dL Magnesium 1.8 (1.6-2.3) mg/dL Total Bilirubin 0.40 (0.2-1.3) mg/dL AST 23 (14-36) U/L ALT 18 (0-35) U/L Alkaline Phosphatase 104 (38-126) U/L Serum Total Protein 7.0 (6.3-8.2) g/dL Albumin 4.0 (3.5-5.0) g/dL - Progress Progress: improved Air Movement: good Progress Note: CT head neg Sxs improved w/ medications Repeat neuro exam remains negative Patient sleeping on reevaluation Discussed trigger avoidance and behavioral modification. (sleep, regular meals, hydrations, regular exercise). D/C patient home w/ PO Toradol. Blood Culture(s) Obtained: No Antibiotics given: No Counseled pt/family regarding: lab results, diagnosis, need for follow-up, rad results Medical Desision Making - Diagnostic Testing Radiological Interpretation: Reviewed by me, Teleradiologist Report - Risk of complications The pt has a mod risk of morbidity or mortality based on: Need for prescription drug management - Departure Departure Disposition: Home Clinical Impression: Migraine headache Condition: Good Critical Care Time: No Referrals: LLUVIA CHILDERS DO [Primary Care Provider] - Follow up/PCP as directed Instructions: Headache, Adult (DC) Prescriptions: Ketorolac Trometh 10 mg Tab [TORAdol 10 MG TABLET] 10 mg PO Q8H 5 Days #15 tablet
[2022-05-01] MEDS ORDERED: Compazine 10 MG/2 ML ONE (15:25)
[2022-05-01] MEDS ORDERED: BENADRYL 50 MG/ML ONE (15:25)
[2022-05-01] MEDS ORDERED: TORAdol 30 mg Injection ONE (15:25)
[2022-05-01] MEDS ORDERED: Imitrex 6 MG/0.5 ML SQ ONE (15:25)
[2022-05-01 15:33] LABS: Absolute Neutrophil Ct (ANC) 4.37 x10^3/uL (1.4-6.9); BASOPHIL % 0.4 % (0.0-0.4); Basophil (Absolute #) 0.02 x10^3/uL (0-0.4); Eosinophil % 0.7 % (0.00-5.0); Eosinophil (Absolute #) 0.04 x10^3/uL (0-0.5); Hematocrit 31.8 % (35-47); Hemoglobin 9.4 g/dL (12.0-16.0); IMMATURE GRAN # 0.03 x10^3u/L (0.00-0.03); IMMATURE GRAN % 0.5 % (0.00-0.4); Lymphocyte (Absolute #) 0.89 x10^3/uL (1.0-4.6); Lymphocytes % 15.8 % (24.0-44.0); Mean Cell Volume 84.1 fL (78-100); Mean Corpuscular Hemoglobin 24.9 pg (26-32); Mean Corpuscular Hgb Concent. 29.6 g/dL (32-36); Mean Platelet Volume 10.3 fL (7.5-11.0); Monocyte (Absolute #) 0.28 x10^3/uL (0.0-1.3); Neutrophil % 77.6 % (36.0-66.0); Platelet Count 223 x10^3/uL (150-450); Red Blood Count 3.78 x10^6/uL (4.1-5.4); Red Cell Distribution Width 16.2 % (11.5-14.0); White Blood Count 5.6 x10^3/uL (4.0-10.5)
[2022-05-01 15:48] LABS: ANION GAP 11.1 MEQ/L (5-15); BILIRUBIN,TOTAL 0.4 mg/dL (0.2-1.3); Calcium 8.8 mg/dL (8.4-10.2); Creatinine 1 1.21 mg/dL (0.52-1.04); EST GLOMERULAR FILTRATION RATE 47.3 ML/MIN; Potassium 3.8 mmol/L (3.5-5.1)
[2022-05-01] MEDS ORDERED: Sodium Chloride 0.9% 1000 ML 1,000 ML IV STA (15:59)
--- NOTE | 2022-05-01 16:33 | XRAY ---
Indication: Severe headache and weakness. Multiple contiguous axial images obtained through the head without contrast. Comparison: December 07, 2021 Normal appearing brain parenchyma, ventricles, and bony calvarium. Visualized paranasal sinuses and mastoid air cells are clear. Impression: Continued normal CT head without contrast exam.
[2022-05-01 16:35] VITALS: BP 131/63; PULSE 82
[2022-05-05 11:06] VITALS: O2SAT 98
== END 2022-05-01 19:36 | disposition home or self-care (01) ==
LOC: ED 11:52
DX: G43.909 Migraine, unspecified, not intractable, without status migrainosus (principal); Z79.899 Other long term (current) drug therapy
CPT/HCPCS: 36415; 70450; 80053; 83735; 85025; 96372; 99284; J1200; J1885; J3030

== ENCOUNTER 2022-05-21 17:09 | Emergency (ER) | payer MEDICARE ==
[2022-05-21] MEDS ORDERED: Reglan 10 MG/2 ML IV ONE (17:21)
[2022-05-21] MEDS ORDERED: BENADRYL 50 MG/ML IM ONE (17:22)
[2022-05-21] MEDS ORDERED: TORAdol 30 mg Injection IM ONE (17:24)
[2022-05-21] MEDS ORDERED: Imitrex 6 MG/0.5 ML SQ STA (17:24)
[2022-05-21] MEDS ORDERED: TORAdol 30 mg Injection ONE (17:41)
[2022-05-21] MEDS ORDERED: BENADRYL 50 MG/ML ONE (17:42)
[2022-05-21] MEDS ORDERED: Compazine 10 MG/2 ML ONE (17:42)
[2022-05-21] MEDS ORDERED: Imitrex 6 MG/0.5 ML SQ ONE (17:42)
[2022-05-21] MEDS ORDERED: Compazine 10 MG/2 ML IM ONE (17:46)
[2022-05-21] MEDS ORDERED: COGENTIN 0.5 MG PO ONE (18:32)
--- NOTE | 2022-05-21 18:41 | ERPHSYRPT ---
- History of Present Illness Time Seen by Provider: 05/21/22 17:30 Source: patient Exam Limitations: no limitations Patient Subjective Stated Complaint: pt states I have a migraine. Triage Nursing Assessment: pt ambulated into the er; pt transferred self to cot; c/o headache; no respiratory distress present; pt on 3L O2; skin PDW; vital wnl Physician History: Deborah Frey is a 66-year-old female with past medical history of COPD, oxygen dependent, history of chronic headaches, reported to the emergency room with a migraine headache that started 48 hours ago, stated that she has already taken her Maxalt, Tylenol, without any relief of her symptoms. She complains with photophobia, sonophobia, nausea but no vomiting. Denies neck pain, denies neck stiffness, denies shortness of breath or fever. Migraine headache is no different than any previous episodes experienced in the past. Timing/Duration: hour(s) (48) Quality: dullness Head Pain Location: frontal Severity of Pain-Max: moderate Severity of Pain-Current: moderate Recent Head Trauma: no recent headache/trauma, frequent headaches, chronic headaches Associated Symptoms: light-headedness, other (Photophobia, sonophobia) Previous symptoms: same symptoms as today Allergies/Adverse Reactions: sumatriptan [From Imitrex] Allergy (Intermediate, Verified 05/21/22 17:18) Rash codeine Allergy (Mild, Verified 05/21/22 17:18) Rash MAKES SICK nitrofurantoin [From Macrobid] Allergy (Unknown, Verified 05/21/22 17:18) sumatriptan succinate [From Imitrex] Allergy (Verified 05/21/22 17:18) morphine Adverse Reaction (Severe, Verified 05/21/22 17:18) Headache MIGRAINES fentanyl Adverse Reaction (Intermediate, Verified 05/21/22 17:18) Headache hydrocodone bitartrate [From Vicodin] Adverse Reaction (Mild, Verified 05/21/22 17:18) Vomiting hydromorphone [From Dilaudid] Adverse Reaction (Mild, Verified 05/21/22 17:18) pt states makes heache worse. Home Medications: ALPRAZolam 1 MG [Xanax 1 mg] 1 mg PO TID 02/17/13 [History] Sennosides/Docusate Sodium [Senokot-S Tablet] 1 tab PO DAILY 04/25/15 [History] Cetirizine HCl/Pseudoephedrine [Zyrtec-D Tablet] 1 each PO DAILY 02/03/16 [ History] Aspirin 81 mg PO DAILY 09/11/16 [History] Levothyroxine Sodium 50 Mcg [Synthroid 50 Mcg] 50 mcg PO DAILY 07/06/17 [History] Linaclotide [Linzess] 290 mcg PO DAILY 10/07/17 [History] Dexlansoprazole [Dexilant] 60 mg PO DAILY 01/21/20 [History] Fluticasone/Umeclidin/Vilanter [Trelegy Ellipta 100-62.5-25] 200 units IH DAILY 03/01/20 [History] Albuterol 2.5 mg/3 ml Neb [Proventil 2.5 mg/3 ml Neb] 2.5 mg IH QID 07/23/20 [History] Magnesium Oxide 400 mg [Mag-Ox 400] 400 mg PO DAILY 09/29/21 [History] dilTIAZem HCl [Diltiazem 24Hr ER (Cd)] 120 mg PO DAILY 09/29/21 [History] Omeprazole/Sodium Bicarbonate [Omeprazole-Bicarb 40-1,100 Cap] 1 cap PO DAILY 01/18/22 [History] Promethazine HCl 25 mg [Phenergan 25 mg] 25 mg PO BIDPRN PRN 01/18/22 [History] Prucalopride Succinate [Motegrity] 1 mg PO DAILY 01/18/22 [History] Ferrous Sulfate 1 ea DAILY 05/01/22 [History] Sodium Bicarbonate 1 ea BID 05/01/22 [History] Hx Tetanus, Diphtheria Vaccination/Date Given: Yes Hx Influenza Vaccination/Date Given: Yes Hx Pneumococcal Vaccination/Date Given: No Travel Risk - International Travel Have you traveled outside of the country in past 3 weeks: No - Coronavirus Screening Are you exhibiting any of the following symptoms?: No Close contact with a COVID-19 positive Pt in past 14-21 Days: No - Vaccine Status Have you recieved a 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: 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[employer] - Vaccination Dates Date of 2cond Vaccination (if applicable): unknown - Review of Systems Constitutional: No Fever, No Chills Eyes: No Symptoms Ears, Nose, & Throat: No Symptoms Respiratory: No Cough, No Dyspnea Cardiac: No Chest Pain, No Edema, No Syncope Abdominal/Gastrointestinal: No Abdominal Pain, No Nausea, No Vomiting, No Diarrhea Genitourinary Symptoms: No Dysuria Musculoskeletal: No Back Pain, No Neck Pain Skin: No Rash Neurological: Headache, No Dizziness, No Focal Weakness, No Sensory Changes Psychological: No Symptoms Endocrine: No Symptoms All Other Systems: Reviewed and Negative - Past Medical History Pertinent Past Medical History: Yes Neurological History: Migraines ENT History: Cataracts Cardiac History: No Pertinent History Respiratory History: Bronchitis, COPD, Pulmonary Embolism Endocrine Medical History: Hypothyroidism Musculoskeletal History: Osteoarthritis GI Medical History: GERD, Other History: Other Psycho-Social History: Anxiety, Panic Disorder Female Reproductive Disorders: No Pertinent History Other Medical History: frequent uti's, chronic pseudo obstruction, blood clot - Past Surgical History Past Surgical History: Yes Neuro Surgical History: No Pertinent History Cardiac: No Pertinent History Respiratory: No Pertinent History Gastrointestinal: Cholecystectomy, Other Genitourinary: No Pertinent History Musculoskeletal: No Pertinent History Female Surgical History: No Pertinent History Other Surgical History: all of large intestine removed - Social History Smoking Status: Never smoker Exposure to second hand smoke: No Alcohol Use: None Drug Use: none Patient Lives Alone: Yes Significant Family History: no pertinent family hx - Nursing Vital Signs Nursing Vital Signs: Initial Vital Signs Temperature 98.2 F 05/21/22 17:21 Pulse Rate 86 05/21/22 17:21 Respiratory Rate 24 05/21/22 17:21 Blood Pressure 125/97 05/21/22 17:21 O2 Sat by Pulse Oximetry 97 05/21/22 17:21 Pain Scale Pain Intensity 10 - Physical Exam General Appearance: moderate distress Eye Exam: PERRL/EOMI Ears, Nose, Throat Exam: normal ENT inspection, moist mucous membranes Neck Exam: normal inspection, supple, full range of motion, No meningismus Respiratory Exam: normal breath sounds, lungs clear Cardiovascular Exam: regular rate/rhythm, normal heart sounds Gastrointestinal/Abdominal Exam: soft, No tenderness, No distention Back Exam: normal inspection, normal range of motion 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, 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, cooperative outsole caser Exam: normal speech, PERRL, No facial droop Coordination/Gait Exam: normal cerebellar function Motor/Sensory Exam: no motor deficit, no sensory deficit Skin Exam: normal color, warm, dry, No rash SpO2: 100 - Course Nursing assessment & vital signs reviewed: Yes Ordered Tests: Medication Summary Discontinued Medications Generic Name Dose Route Start Last Admin Trade Name Brendonq PRN Reason Stop Dose Admin Benztropine Mesylate 2 mg 05/21/22 18:32 Benztropine Mesylate 0.5 Mg Tablet PO 05/21/22 18:33 STAT ONE Diphenhydramine HCl 50 mg 05/21/22 17:22 05/21/22 17:44 Diphenhydramine Hcl 50 Mg/Ml Vial IM 05/21/22 17:23 50 mg STAT ONE Administration Diphenhydramine HCl Confirm 05/21/22 17:42 Diphenhydramine Hcl 50 Mg/Ml Vial Administered 05/21/22 17:43 Dose 50 mg .ROUTE .STK-MED ONE Ketorolac Tromethamine 30 mg 05/21/22 17:24 05/21/22 17:44 Ketorolac Tromethamine 30 Mg/Ml Inj IM 05/21/22 17:25 30 mg STAT ONE Administration Ketorolac Tromethamine Confirm 05/21/22 17:41 Ketorolac Tromethamine 30 Mg/Ml Inj Administered 05/21/22 17:42 Dose 30 mg .ROUTE .STK-MED ONE Metoclopramide HCl 10 mg 05/21/22 17:21 05/21/22 17:44 Metoclopramide Hcl 10 Mg/2 Ml Vial IV 05/21/22 17:22 Not Given STAT ONE Prochlorperazine Edisylate Confirm 05/21/22 17:42 Prochlorperazine Edisylate 10 Mg/2 Ml Vial Administered 05/21/22 17:43 Dose 10 mg .ROUTE .STK-MED ONE Prochlorperazine Edisylate 10 mg 05/21/22 17:46 05/21/22 17:47 Prochlorperazine Edisylate 10 Mg/2 Ml Vial IM 05/21/22 17:47 10 mg STAT ONE Administration Sumatriptan Succinate 6 mg 05/21/22 17:24 05/21/22 17:45 Sumatriptan Succinate 6 Mg/0.5 Ml Vial SQ 05/21/22 17:25 6 mg STAT STA Administration Sumatriptan Succinate Confirm 05/21/22 17:42 Sumatriptan Succinate 6 Mg/0.5 Ml Vial Administered 05/21/22 17:43 Dose 6 mg SQ .STK-MED ONE - Progress Progress: improved, re-examined Progress Note: 05/21/22 18:39 Upon reexamination, the patient stable, no acute distress, headache completely resolved. Patient complaining with some "shakiness", which is possibly secondary to Compazine, will add Cogentin prior to discharge home. Patient stated that she will stay with her niece karlos. Counseled pt/family regarding: diagnosis, need for follow-up Medical Desision Making - External Record(s) Reviewed Records reviewed as a part of evaluation & management: Discharge Summary, Clinic - Risk of complications Minimal Risk: Minimal risk of morbidity - Departure Departure Disposition: Release to OR/[facility] [place] Clinical Impression: Migraine headache Qualifiers: Migraine type: unspecified Status migrainosus presence: without status migrainosus Intractability: not intractable Qualified Code(s): G43.909 - Migraine, unspecified, not intractable, without status migrainosus Condition: Stable Critical Care Time: No Referrals: LLUVIA CHILDERS, [Primary Care Provider] - Follow up/PCP as directed Additional Instructions: Discharge/Care Plan FREYDEBORAH SHERRIE was seen on 05/21/22 in the Emergency Room. The patient was counseled regarding Diagnosis,Lab results, Imaging studies, need for follow up and when to return to the Emergency Room. Prescriptions given: Discharge Note I have spoken with the patient and/or caregivers. I have explained the patient's condition, diagnosis and treatment plan based on the information available to me at this time. I have answered the patient's and/or caregiver's questions and addressed any concerns. The patient and/or caregivers have as good understanding of the patient's diagnosis, condition and treatment plan as can be expected at this point. The vital signs have been stable. The patient's condition is stable and appropriate for discharge from the emergency department. The patient will pursue further outpatient evaluation with the primary care physician or other designated or consulting physician as outlined in the discharge instructions. The patient and/or caregivers are agreeable to this plan of care and follow-up instructions have been explained in detail. The patient and/or caregivers have received these instruction. The patient/and or caregivers are aware that any significant change in condition or worsening of symptoms should prompt an immediate return to this or the closest emergency department or call 911.
[2022-05-21 19:02] VITALS: BP 128/78; PULSE 64; O2SAT 99
== END 2022-05-21 19:02 | disposition home or self-care (01) ==
LOC: ED 17:09
DX: G43.909 Migraine, unspecified, not intractable, without status migrainosus (principal); Z79.899 Other long term (current) drug therapy
CPT/HCPCS: 96372; 99283; J1200; J1885; J3030

== ENCOUNTER 2022-06-11 12:40 | Emergency (ER) | payer MEDICARE ==
--- NOTE | 2022-06-11 12:43 | ERPHSYRPT ---
- History of Present Illness Time Seen by Provider: 06/11/22 12:43 Historian: patient Exam Limitations: no limitations Physician History: This is a 67-year-old white female patient of Dr. Perry who frequents this emergency department for various issues. Today's issue is constipation and some abdominal pain and associated nausea and vomiting for 2 weeks and 1 day. Patient states that she has used several [id number] medications and enemas without effect. Patient has a history of COPD, pulmonary lives alone, anxiety and panic disorder, recurrent urinary tract infections, gastroesophageal reflux disease, pseudo intestinal obstruction. Timing/Duration: week(s) Activities at Onset: none Quality: aching Abdominal Pain Onset Location: generalized abdomen Severity of Pain-Max: moderate Severity of Pain-Current: moderate Associated Symptoms: loss of appetite, nausea, vomiting Previous symptoms: same symptoms as today, recently seen Allergies/Adverse Reactions: sumatriptan [From Imitrex] Allergy (Intermediate, Verified 06/11/22 13:01) Rash codeine Allergy (Mild, Verified 06/11/22 13:01) Rash MAKES SICK nitrofurantoin [From Macrobid] Allergy (Unknown, Verified 06/11/22 13:01) sumatriptan succinate [From Imitrex] Allergy (Verified 06/11/22 13:01) morphine Adverse Reaction (Severe, Verified 06/11/22 13:01) Headache MIGRAINES fentanyl Adverse Reaction (Intermediate, Verified 06/11/22 13:01) Headache hydrocodone bitartrate [From Vicodin] Adverse Reaction (Mild, Verified 06/11/22 13:01) Vomiting hydromorphone [From Dilaudid] Adverse Reaction (Mild, Verified 06/11/22 13:01) pt states makes heache worse. Home Medications: ALPRAZolam 1 MG [Xanax 1 mg] 1 mg PO TID 02/17/13 [History] Sennosides/Docusate Sodium [Senokot-S Tablet] 1 tab PO DAILY 04/25/15 [History] Cetirizine HCl/Pseudoephedrine [Zyrtec-D Tablet] 1 each PO DAILY 02/03/16 [History] Aspirin 81 mg PO DAILY 09/11/16 [History] Levothyroxine Sodium 50 Mcg [Synthroid 50 Mcg] 50 mcg PO DAILY 07/06/17 [History] Linaclotide [Linzess] 290 mcg PO DAILY 10/07/17 [History] Dexlansoprazole [Dexilant] 60 mg PO DAILY 01/21/20 [History] Fluticasone/Umeclidin/Vilanter [Trelegy Ellipta 100-62.5-25] 200 units IH DAILY 03/01/20 [History] Albuterol 2.5 mg/3 ml Neb [Proventil 2.5 mg/3 ml Neb] 2.5 mg IH QID 07/23 [History] Magnesium Oxide 400 mg [Mag-Ox 400] 400 mg PO DAILY 09/29/21 [History] dilTIAZem HCl [Diltiazem 24Hr ER (Cd)] 120 mg PO DAILY 09/29/21 [History] Omeprazole/Sodium Bicarbonate [Omeprazole-Bicarb 40-1,100 Cap] 1 cap PO DAILY 01/18/22 [History] Promethazine HCl 25 mg [Phenergan 25 mg] 25 mg PO BIDPRN PRN 01/18/22 [History] Prucalopride Succinate [Motegrity] 1 mg PO DAILY 01/18/22 [History] Ferrous Sulfate 1 ea DAILY 05/01/22 [History] Sodium Bicarbonate 1 ea BID 05/01/22 [History] Hx Tetanus, Diphtheria Vaccination/Date Given: Yes Hx Influenza Vaccination/Date Given: Yes Hx Pneumococcal Vaccination/Date Given: No Travel Risk - International Travel Have you traveled outside of the country in past 3 weeks: No - Coronavirus Screening Are you exhibiting any of the following symptoms?: No Close contact with a COVID-19 positive Pt in past 14-21 Days: No - Vaccine Status Have you recieved a 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: 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[employer] - Vaccination Dates Date of 2cond Vaccination (if applicable): unknown - Review of Systems Constitutional: No Symptoms Eyes: No Symptoms Ears, Nose, & Throat: No Symptoms Respiratory: No Symptoms Cardiac: No Symptoms Abdominal/Gastrointestinal: Abdominal Pain, Nausea, Vomiting, Constipation Genitourinary Symptoms: No Symptoms Musculoskeletal: No Symptoms Skin: No Symptoms Neurological: No Symptoms Psychological: No Symptoms Endocrine: No Symptoms Hematologic/Lymphatic: No Symptoms Immunological/Allergic: No Symptoms All Other Systems: Reviewed and Negative - Past Medical History Pertinent Past Medical History: Yes Neurological History: Migraines ENT History: Cataracts Cardiac History: No Pertinent History Respiratory History: Bronchitis, COPD, Pulmonary Embolism Endocrine Medical History: Hypothyroidism Musculoskeletal History: Osteoarthritis GI Medical History: GERD, Other History: Other Psycho-Social History: Anxiety, Panic Disorder Female Reproductive Disorders: No Pertinent History Other Medical History: frequent uti's, chronic pseudo obstruction, blood clot - Past Surgical History Past Surgical History: Yes Neuro Surgical History: No Pertinent History Cardiac: No Pertinent History Respiratory: No Pertinent History Gastrointestinal: Cholecystectomy, Other Genitourinary: No Pertinent History Musculoskeletal: No Pertinent History Female Surgical History: No Pertinent History Other Surgical History: all of large intestine removed - Social History Smoking Status: Never smoker Exposure to second hand smoke: No Alcohol Use: None Drug Use: none Patient Lives Alone: Yes Significant Family History: no pertinent family hx - Nursing Vital Signs Nursing Vital Signs: Initial Vital Signs Temperature 97.8 F 06/11/22 13:02 Pulse Rate 108 H 06/11/22 13:02 Respiratory Rate 18 06/11/22 13:02 Blood Pressure 198/79 06/11/22 13:02 O2 Sat by Pulse Oximetry 98 06/11/22 13:02 Pain Scale Pain Intensity 8 - Physical Exam General Appearance: no apparent distress, alert, anxiety Eye Exam: PERRL/EOMI, eyes nml inspection Ears, Nose, Throat Exam: normal ENT inspection, moist mucous membranes Neck Exam: normal inspection, non-tender, supple, full range of motion Respiratory Exam: normal breath sounds, lungs clear, airway intact, No chest tenderness, No respiratory distress Cardiovascular Exam: regular rate/rhythm, normal heart sounds, normal peripheral pulses Gastrointestinal/Abdomen Exam: soft, normal bowel sounds, tenderness (Mild diffuse to palpation), distention, No guarding, No rebound Pelvic Exam: not done Rectal Exam: not done Back Exam: normal inspection, normal range of motion, No CVA tenderness, No vertebral tenderness Extremity Exam: normal inspection, normal range of motion, pelvis stable Neurologic Exam: alert, 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, cooperative, derrick engineer II-XII nml as tested, normal mood/affect, nml cerebellar function, nml station & gait, sensation nml Skin Exam: normal color, warm, dry Lymphatic Exam: No adenopathy SpO2 Interpretation: normal O2 Delivery: Room Air - Course Nursing assessment & vital signs reviewed: Yes Ordered Tests: Active Orders 24 hr Category Date Time Status Enema STAT Care 06/11/22 14:43 Active ABDOMEN AND PELVIS W/0 CONTRAS [CT] Stat Exams 06/11/22 13:15 Completed AMYLASE Stat Lab 06/11/22 13:25 Completed CBC W DIFF Stat Lab 06/11/22 13:25 Completed CMP Stat Lab 06/11/22 13:25 Completed CULTURE,URINE Stat Lab 06/11/22 13:21 Received LIPASE Stat Lab 06/11/22 13:25 Completed UA W/RFX UR CULTURE Stat Lab 06/11/22 13:21 Completed Lab/Rad Data: Laboratory Result Diagrams 06/11/22 13:25 06/11/22 13:25 Laboratory Results 06/11/22 06/11/22 06/11/22 Range/Units 13:25 13:25 13:21 WBC 6.3 (4.0-10.5) x10^3/uL RBC 4.38 (4.1-5.4) x10^6/uL Hgb 11.9 L (12.0-16.0) g/dL Hct 37.3 (35-47) % MCV 85.2 (78-100) fL MCH 27.2 (26-32) pg MCHC 31.9 L (32-36) g/dL RDW 18.9 H (11.5-14.0) % Plt Count 210 (150-450) x10^3/uL MPV 10.3 (7.5-11.0) fL Gran % 75.2 H (36.0-66.0) % Immature Gran % (Auto) 1.0 H (0.00-0.4) % Nucleat RBC Rel Count 0.0 (0.00-0.1) % Eos # (Auto) 0.06 (0-0.5) x10^3/uL Immature Gran # (Auto) 0.06 H (0.00-0.03) x10^3u/L Absolute Lymphs (auto) 0.93 L (1.0-4.6) x10^3/uL Absolute Monos (auto) 0.45 (0.0-1.3) x10^3/uL Absolute Nucleated RBC 0.00 (0.00-0.01) x10^3u/L Lymphocytes % 14.8 L (24.0-44.0) % Monocytes % 7.2 (0.0-12.0) % Eosinophils % 1.0 (0.00-5.0) % Basophils % 0.8 (0.0-0.4) % Absolute Granulocytes 4.72 (1.4-6.9) x10^3/uL Basophils # 0.05 (0-0.4) x10^3/uL Sodium 139 (137-145) mmol/L Potassium 4.1 (3.5-5.1) mmol/L Chloride 109 H (98-107) mmol/L Carbon Dioxide 18 L (22-30) mmol/L Anion Gap 15.8 H (5-15) MEQ/L BUN 38 H (7-17) mg/dL Creatinine 1.54 H (0.52-1.04) mg/dL Estimated GFR 35.7 ML/MIN Glucose 116 H (74-106) mg/dL Calcium 9.0 (8.4-10.2) mg/dL Total Bilirubin 0.40 (0.2-1.3) mg/dL AST 23 (14-36) U/L ALT 20 (0-35) U/L Alkaline Phosphatase 104 (38-126) U/L Serum Total Protein 7.4 (6.3-8.2) g/dL Albumin 4.1 (3.5-5.0) g/dL Amylase 93 (30-110) U/L Lipase 251 (23-300) U/L Urine Color Yellow (Yellow) Urine Appearance Cloudy A (Clear) Urine pH 5.0 (4.6-8.0) Ur Specific Floral >=1.030 A (1.005-1.030) Urine Protein Trace A (Negative) Urine Glucose (UA) Negative (Negative) mg/dL Urine Ketones Negative (Negative) Urine Blood Negative (Negative) Urine Nitrite Negative (Negative) Urine Bilirubin Negative (Negative) Urine Urobilinogen 0.2 (0.2) mg/dL Ur Leukocyte Esterase Small A (Negative) U Hyaline Cast (Auto) 6-10 A (0-2) /LPF Urine Microscopic RBC 3-5 (0-5) /HPF Urine Microscopic WBC 11-20 A (0-5) /HPF Ur Epithelial Cells Few (None Seen) /HPF Calcium Oxalate Crystal 6-10 A (None Seen) /HPF Urine Bacteria None Seen (None Seen) /HPF Urine Mucus Rare A (NEGATIVE) /HPF Urine Yeast (Budding) (None Seen) /HPF Urine Culture Reflexed YES (NO) - Progress Progress: improved, re-examined Progress Note: 06/11/22 14:44 CAT scan of the abdomen pelvis without contrast shows mild fecal impaction. The remainder of the CT scan of the abdomen pelvis without contrast is negative. 06/11/22 16:01 This patient's medical issue is of moderate complexity. The level of complexity and the work-up performed is based on review of the patient's past medical history, review of the patient's medication list, review of the patient's drug allergies, history of present illness and physical findings on examination. The work-up today includes obtaining a CBC, CMP, amylase and lipase level, urinalysis and a CAT scan of the abdomen pelvis. The results are as stated above. Patient underwent soapsuds enema x2 with a moderate response. We are awaiting the urinalysis. If the urinalysis returns negative the patient will be discharged home with a regimen for bowel hygiene. If it returns positive for infection we will treat her uti and also provide her a regimen for bowel hyg iene. Patient is to follow-up with her primary care physician by phone tomorrow morning for further evaluation management. Counseled pt/family regarding: lab results, diagnosis, need for follow-up, rad results Medical Desision Making - Discussion of managment Agreed on:: Treatment plan - Diagnostic Testing Diagnostic test were ordered, analyzed, and reviewed by me: Yes - Risk of complications The pt has a mod risk of morbidity or mortality based on: Need for prescription drug management - Departure Departure Disposition: Home Clinical Impression: Constipation, UTI (urinary tract infection) Condition: Stable Critical Care Time: No Referrals: LLUVIA PERRY DO [Primary Care Provider] - Follow up/PCP as directed Additional Instructions: Drink plenty of fluids. Take your medication as prescribed. Follow-up with your primary care physician for further evaluation management. Prescriptions: Cephalexin Mh 500 mg [Keflex 500 mg] 500 mg PO TID #21 cap
[2022-06-11 13:40] LABS: Absolute Neutrophil Ct (ANC) 4.72 x10^3/uL (1.4-6.9); BASOPHIL % 0.8 % (0.0-0.4); Basophil (Absolute #) 0.05 x10^3/uL (0-0.4); Eosinophil (Absolute #) 0.06 x10^3/uL (0-0.5); Hematocrit 37.3 % (35-47); Hemoglobin 11.9 g/dL (12.0-16.0); IMMATURE GRAN # 0.06 x10^3u/L (0.00-0.03); Lymphocyte (Absolute #) 0.93 x10^3/uL (1.0-4.6); Lymphocytes % 14.8 % (24.0-44.0); Mean Cell Volume 85.2 fL (78-100); Mean Corpuscular Hemoglobin 27.2 pg (26-32); Mean Corpuscular Hgb Concent. 31.9 g/dL (32-36); Mean Platelet Volume 10.3 fL (7.5-11.0); Monocyte (Absolute #) 0.45 x10^3/uL (0.0-1.3); Monocytes % 7.2 % (0.0-12.0); Neutrophil % 75.2 % (36.0-66.0); Platelet Count 210 x10^3/uL (150-450); Red Blood Count 4.38 x10^6/uL (4.1-5.4); Red Cell Distribution Width 18.9 % (11.5-14.0); White Blood Count 6.3 x10^3/uL (4.0-10.5)
[2022-06-11 13:53] LABS: ALBUMIN 4.1 g/dL (3.5-5.0); ANION GAP 15.8 MEQ/L (5-15); BILIRUBIN,TOTAL 0.4 mg/dL (0.2-1.3); Creatinine 1 1.54 mg/dL (0.52-1.04); EST GLOMERULAR FILTRATION RATE 35.7 ML/MIN; Potassium 4.1 mmol/L (3.5-5.1); Total Protein 7.4 g/dL (6.3-8.2)
--- NOTE | 2022-06-11 13:57 | XRAY ---
Indication: Abdomen pain. Constipation. Multiple contiguous axial images through the abdomen and pelvis without contrast. Comparison: July 04, 2021 Lung bases clear. Heart not enlarged. Noncontrasted stomach and bowel loops remaining nonobstructed. Stable colectomy with intact sigmoid anastomosis. New mild rectal fecal impaction. Again cholecystectomy and hysterectomy. No free fluid/air. Right lower kidney demonstrates stable small exophytic cyst. Remaining liver, pancreas, spleen, adrenal glands, kidneys, ureters, bladder, and aorta are unremarkable for noncontrast exam. Osseous structures intact again with mild degenerative changes throughout the spine. Impression: 1. Mild rectal fecal impaction. 2. Stable small right renal cyst, colectomy with intact anastomosis, and chronic bony findings. 3. Remaining CT abdomen/pelvis without contrast exam continues to be negative.
[2022-06-11 14:24] VITALS: BP 105/74; PULSE 95; O2SAT 100
[2022-06-11 16:19] LABS: Appearance Cloudy (Clear); Bacteria None Seen /HPF (None Seen); Bilirubin Negative (Negative); Blood Negative (Negative); Epithelial Cells Few /HPF (None Seen); Glucose, Urine Negative (Negative); Ketones Negative (Negative); Leukocyte Esterase Small (Negative); Nitrite Negative (Negative); Protein,Urine Dip Trace (Negative); Specific Gravity >=1.030 (1.005-1.030); Urobilinogen 0.2 mg/dL (0.2)
[2022-06-11 16:20] LABS: ADD URINE CULTURE? YES (NO); Mucus Rare /HPF (NEGATIVE)
== END 2022-06-11 16:30 | disposition home or self-care (01) ==
LOC: ED 12:40
DX: K59.00 Constipation, unspecified (principal); N39.0 Urinary tract infection, site not specified; R10.9 Unspecified abdominal pain; R11.2 Nausea with vomiting, unspecified; Z79.899 Other long term (current) drug therapy
CPT/HCPCS: 36415; 74176; 80053; 81001; 82150; 83690; 85025; 87086; 99283; 99291

== ENCOUNTER 2022-07-02 19:50 | Emergency (ER) | payer MEDICARE ==
[2022-07-02 20:51] VITALS: O2SAT 96
[2022-07-02 20:58] LABS: Appearance Clear (Clear); Bacteria None Seen /HPF (None Seen); Bilirubin Negative (Negative); Blood Negative (Negative); Epithelial Cells None Seen /HPF (None Seen); Glucose, Urine Negative (Negative); Ketones Negative (Negative); Leukocyte Esterase Small (Negative); Nitrite Negative (Negative); Protein,Urine Dip Negative (Negative); RBC 0-2 /HPF (0-5); Urobilinogen 0.2 mg/dL (0.2)
[2022-07-02 21:00] LABS: ADD URINE CULTURE? NO (NO)
[2022-07-02 21:10] VITALS: BP 111/63; PULSE 85
[2022-07-02] MEDS ORDERED: Levofloxacin 500 MG Tablet PO ONE (21:18)
--- NOTE | 2022-07-02 21:26 | ERPHSYRPT ---
- History of Present Illness Time Seen by Provider: 07/02/22 21:24 Source: patient Exam Limitations: no limitations Patient Subjective Stated Complaint: pt states that "last month she had a bowel obstruction and finally had a large bowel movement on June 20 and in last couple of days has had a urine tract infection". she reports that she is going frequently and has urethera pressure all the time that is increased when she has to urinate. also reports urgency Triage Nursing Assessment: pt ambulated independently into room 8 after using bathroom for urine specimen and standing on scale. pt with slow steady gait and independently ambulates. she is alert and oriented times three, able to move all extremities, resp even and unlabored, and speaking in fully sentences. pt is on 3L [place] o2 per home O2 tank (switched to hospital wall o2) which is her normal oxygen dose for home. pt refused to put on gown stating that all she wanted was a urine test and treatment for infection. Physician History: Patient is a 67-year-old female presents to our ED for evaluation of a urinary tract infection. Patient states she has been experiencing urethral pressure and urinary frequency. Patient has had UTIs in the past and states her symptoms about the same. No fever. No back pain. No nausea vomiting or diaphoresis. Symptoms are progressive. Symptoms are moderate in intensity. No specific worsening improving factors. Patient voices no other complaints or concerns at this time. Portions of this note were created with voice recognition technology. There may be grammatical, spelling, punctuation or sound alike errors Timing/Duration: yesterday Severity: moderate Modifying Factors: Improves With: nothing Associated Symptoms: denies symptoms Allergies/Adverse Reactions: sumatriptan [From Imitrex] Allergy (Intermediate, Verified 07/02/22 20:38) Rash codeine Allergy (Mild, Verified 07/02/22 20:38) Rash MAKES SICK nitrofurantoin [From Macrobid] Allergy (Unknown, Verified 07/02/22 20:38) sulfamethoxazole [From Bactrim] Allergy (Unknown, Verified 07/02/22 20:38) trimethoprim [From Bactrim] Allergy (Unknown, Verified 07/02/22 20:38) sumatriptan succinate [From Imitrex] Allergy (Verified 07/02/22 20:38) morphine Adverse Reaction (Severe, Verified 07/02/22 20:38) Headache MIGRAINES fentanyl Adverse Reaction (Intermediate, Verified 07/02/22 20:38) Headache hydrocodone bitartrate [From Vicodin] Adverse Reaction (Mild, Verified 07/02/22 20:38) Vomiting hydromorphone [From Dilaudid] Adverse Reaction (Mild, Verified 07/02/22 20:38) pt states makes heache worse. Home Medications: ALPRAZolam 1 MG [Xanax 1 mg] 2 mg PO HS 02/17/13 [History] Cetirizine HCl/Pseudoephedrine [Zyrtec-D Tablet] 1 each PO DAILY 02/03/16 [History] Aspirin 81 mg PO DAILY 09/11/16 [History] Levothyroxine Sodium 50 Mcg [Synthroid 50 Mcg] 50 mcg PO DAILY 07/06/17 [History] Linaclotide [Linzess] 290 mcg PO DAILY 10/07/17 [History] Dexlansoprazole [Dexilant] 60 mg PO DAILY 01/21/20 [History] Fluticasone/Umeclidin/Vilanter [Trelegy Ellipta 100-62.5-25] 200 units IH DAILY 03/01/20 [History] Albuterol 2.5 mg/3 ml Neb [Proventil 2.5 mg/3 ml Neb] 2.5 mg IH QID 07/23/20 [History] Magnesium Oxide 400 mg [Mag-Ox 400] 400 mg PO TID 09/29/21 [History] dilTIAZem HCl [Diltiazem 24Hr ER (Cd)] 120 mg PO DAILY 09/29/21 [History] Omeprazole/Sodium Bicarbonate [Omeprazole-Bicarb 40-1,100 Cap] 1 cap PO DAILY 01/18/22 [History] Promethazine HCl 25 mg [Phenergan 25 mg] 25 mg PO BIDPRN PRN 01/18/22 [History] Sodium Bicarbonate 1 ea PO BID 05/01/22 [History] Apixaban [Eliquis] 5 mg PO BID 07/02/22 [History] Fluticasone/Umeclidin/Vilanter [Trelegy Ellipta 200-62.5-25] 1 each IH DAILY 07/02/22 [History] Prucalopride Succinate [Motegrity] 1 mg PO DAILY 07/02/22 [History] Rizatriptan Benzoate [Maxalt] 10 mg PO DAILY PRN 07/02/22 [History] Hx Tetanus, Diphtheria Vaccination/Date Given: Yes Hx Influenza Vaccination/Date Given: Yes Hx Pneumococcal Vaccination/Date Given: No Immunizations Up to Date: Yes Travel Risk - International Travel Have you traveled outside of the country in past 3 weeks: No - Coronavirus Screening Are you exhibiting any of the following symptoms?: No Close contact with a COVID-19 positive Pt in past 14-21 Days: No - Vaccine Status Have you recieved a 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: 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[employer] - Vaccination Dates Date of 2cond Vaccination (if applicable): unknown - Review of Systems Constitutional: No Symptoms, No Fever, No Chills Eyes: No Symptoms Ears, Nose, & Throat: No Symptoms Respiratory: No Symptoms, No Cough, No Dyspnea Cardiac: No Symptoms, No Chest Pain, No Edema, No Syncope Abdominal/Gastrointestinal: No Symptoms, No Abdominal Pain, No Nausea, No Vomiting, No Diarrhea Genitourinary Symptoms: No Symptoms, No Dysuria Musculoskeletal: No Symptoms, No Back Pain, No Neck Pain Skin: No Symptoms, No Rash Neurological: No Symptoms, No Dizziness, No Focal Weakness, No Sensory Changes Psychological: No Symptoms Endocrine: No Symptoms Hematologic/Lymphatic: No Symptoms Immunological/Allergic: No Symptoms All Other Systems: Reviewed and Negative - Past Medical History Pertinent Past Medical History: Yes Neurological History: Migraines ENT History: Cataracts Cardiac History: No Pertinent History Respiratory History: Bronchitis, COPD, Pulmonary Embolism Endocrine Medical History: Hypothyroidism Musculoskeletal History: Osteoarthritis GI Medical History: GERD, Other History: Other Psycho-Social History: Anxiety, Panic Disorder Female Reproductive Disorders: No Pertinent History Other Medical History: frequent uti's, chronic pseudo obstruction, blood clot - Past Surgical History Past Surgical History: Yes Neuro Surgical History: No Pertinent History Cardiac: No Pertinent History Respiratory: No Pertinent History Gastrointestinal: Cholecystectomy, Other Genitourinary: No Pertinent History Musculoskeletal: No Pertinent History Female Surgical History: No Pertinent History Other Surgical History: all of large intestine removed - Social History Smoking Status: Never smoker Exposure to second hand smoke: No Alcohol Use: None Drug Use: none Patient Lives Alone: No Significant Family History: no pertinent family hx - Nursing Vital Signs Nursing Vital Signs: Initial Vital Signs Temperature 97.8 F 07/02/22 20:39 Pulse Rate 113 H 07/02/22 20:39 Respiratory Rate 16 07/02/22 20:39 Blood Pressure 112/83 07/02/22 20:39 O2 Sat by Pulse Oximetry 96 07/02/22 20:39 Pain Scale Pain Intensity 7 - Physical Exam General Appearance: no apparent distress, alert Eye Exam: PERRL/EOMI, eyes nml inspection Ears, Nose, Throat Exam: normal ENT inspection, TMs normal, pharynx normal, moist mucous membranes Neck Exam: normal inspection, non-tender, supple, full range of motion Respiratory Exam: normal breath sounds, lungs clear, airway intact, No respiratory distress Cardiovascular Exam: regular rate/rhythm, normal heart sounds, normal peripheral pulses Gastrointestinal/Abdomen Exam: soft, normal bowel sounds, No tenderness, No mass Back Exam: normal inspection, normal range of motion, No CVA tenderness, No vertebral tenderness Extremity Exam: normal inspection, normal range of motion, pelvis stable Neurologic Exam: alert, 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, cooperative, normal mood/affect, nml cerebellar function, nml station & gait, sensation nml, No motor deficits Skin Exam: normal color, warm, dry, No rash Lymphatic Exam: No adenopathy SpO2 Interpretation: normal SpO2: 96 O2 Delivery: Room Air - Course Nursing assessment & vital signs reviewed: Yes Ordered Tests: Active Orders 24 hr Category Date Time Status CULTURE,URINE Stat Lab 07/02/22 21:12 Received UA W/RFX UR CULTURE Stat Lab 07/02/22 20:44 Completed Medication Summary Discontinued Medications Generic Name Dose Route Start Last Admin Trade Name Brendonq PRN Reason Stop Dose Admin Levofloxacin 500 mg 07/02/22 21:18 Levofloxacin 500 Mg Tablet PO 07/02/22 21:19 STAT ONE Lab/Rad Data: Laboratory Results 07/02/22 Range/Units 20:44 Urine Color Yellow (Yellow) Urine Appearance Clear (Clear) Urine pH 5.0 (4.6-8.0) Ur Specific [place] 1.020 (1.005-1.030) Urine Protein Negative (Negative) Urine Glucose (UA) Negative (Negative) mg/dL Urine Ketones Negative (Negative) Urine Blood Negative (Negative) Urine Nitrite Negative (Negative) Urine Bilirubin Negative (Negative) Urine Urobilinogen 0.2 (0.2) mg/dL Ur Leukocyte Esterase Small A (Negative) U Hyaline Cast (Auto) 3-5 A (0-2) /LPF Urine Microscopic RBC 0-2 (0-5) /HPF Urine Microscopic WBC 3-5 (0-5) /HPF Ur Epithelial Cells None Seen (None Seen) /HPF Urine Bacteria None Seen (None Seen) /HPF Urine Culture Reflexed NO (NO) - Progress Progress: improved Progress Note: Patient is a 67-year-old female presents to our ED with urinary symptomology. Urinalysis reveals leukocyte esterase positive. Given patient's clinical presentation patient will be treated for urinary tract infection. Urine cultures ordered. Results pending. Patient received a dose of Levaquin in our ED. Patient made it clear that patient cannot have Keflex, Bactrim Macrobid. Patient states that Levaquin has worked in the past for urinary tract infections. We will discharge home. Patient agrees to follow-up with her primary care doctor within 48 hours for reevaluation. Complexity of problem addressed is low acute uncomplicated Complex of data reviewed and analyzed is moderate. Dr. Burroughs ordered reviewed and independently analyzed the results of the urinalysis. Risk of complication and or risk of morbidity/mortality of patient management is moderate. Patient received a dose of Levaquin in our ED. A prescription for the same was forwarded to patient's pharmacy. Agrees to follow-up with her primary care doctor within 48 hours for reevaluation. She voices no other complaints or concerns at this time. Portions of this note were created with voice recognition technology. There may be grammatical, spelling, punctuation or sound alike errors 07/02/22 21:27 Counseled pt/family regarding: lab results, diagnosis - Departure Departure Disposition: Home Clinical Impression: Urinary tract infection Condition: Stable Critical Care Time: No Referrals: LLUVIA CHILDERS DO [Primary Care Provider] - Follow up/PCP as directed Additional Instructions: Discharge/Care Plan GEOVANNY FREY was seen on 07/02/22 in the Emergency Room. The patient was counseled regarding Diagnosis,Lab results, Imaging studies, need for follow up and when to return to the Emergency Room. Prescriptions given: Discharge Note I have spoken with the patient and/or caregivers. I have explained the patient's condition, diagnosis and treatment plan based on the information available to me at this time. I have answered the patient's and/or caregiver's questions and addressed any concerns. The patient and/or caregivers have as good understanding of the patient's diagnosis, condition and treatment plan as can be expected at this point. The vital signs have been stable. The patient's condition is stable and appropriate for discharge from the emergency department. The patient will pursue further outpatient evaluation with the primary care physician or other designated or consulting physician as outlined in the discharge instructions. The patient and/or caregivers are agreeable to this plan of care and follow-up instructions have been explained in detail. The patient and/or caregivers have received these instruction. The patient/and or caregivers are aware that any significant change in condition or worsening of symptoms should prompt an immediate return to this or the closest emergency department or call 911. Prescriptions: Levofloxacin [Levaquin 500 MG Tablet] 500 mg PO DAILY #5 tablet
[2022-07-02] MEDS ORDERED: Levofloxacin 500 MG Tablet ONE (21:31)
== END 2022-07-02 21:38 | disposition home or self-care (01) ==
LOC: ED 19:50
DX: N39.0 Urinary tract infection, site not specified (principal); R35.0 Frequency of micturition; Z79.01 Long term (current) use of anticoagulants; Z79.899 Other long term (current) drug therapy
CPT/HCPCS: 81001; 87077; 87086; 87186; 99282; A9270-GY

== ENCOUNTER 2022-07-11 02:40 | Emergency (ER) | payer MEDICARE ==
--- NOTE | 2022-07-11 03:15 | ERPHSYRPT ---
- History of Present Illness Source: patient Exam Limitations: other (Poor historian) Patient Subjective Stated Complaint: pt states "I started a new medicine for a funcal infection in my lungs today. they said something about it interacting with my xanax but I can't not take that because my anxiety is so bad. tonight after I took my night time xanax I started having a tingling chest pain in center of chest and my back and my legs" Triage Nursing Assessment: pt ambulated from waiting room to room 6 independently with slow steady gait, walks bent over at the waist but is unable to verbalize why she does that. she is alert and oriented times three, she is on 3LPM per [place] which is her normal home dose, moves all extremities, resp even and unlabored and speaks in complete sentences. lung sounds clear bilat anterior, no edema noted and bilat pedal pulses palpable. Physician History: 67 yo WF w multiple medical problems and frequent ER visits presents w extremity tingling x several. when pt was brought to the room to be triaged, she states that she has been having mid-sternal chest "tightness" since 21:00 last night. The pain is rated 6/10 and does not radiate. Pt has chronic dyspnea which has not worsened and is 2L O2 dependent. She is mildly nauseated but denies vomiting/diaphoresis. Cough/coryza/fever/melena/hematochezia are all denied. She does not smoke. Timing/Duration: other (2099) Quality: tightness Location: substernal Chest Pain Radiation: no radiation Severity of Pain-Max: moderate Severity of Pain-Current: moderate Modifying Factors: Improves With: nothing Nitro Today/Relief: no nitro taken today Aspirin Treatment Today: no aspirin today Associated Symptoms: denies symptoms, nausea Prior Chest Pain/Cardiac Workup: non-cardiac Allergies/Adverse Reactions: sumatriptan [From Imitrex] Allergy (Intermediate, Verified 07/02/22 20:38) Rash codeine Allergy (Mild, Verified 07/02/22 20:38) Rash MAKES SICK nitrofurantoin [From Macrobid] Allergy (Unknown, Verified 07/02/22 20:38) sulfamethoxazole [From Bactrim] Allergy (Unknown, Verified 07/02/22 20:38) trimethoprim [From Bactrim] Allergy (Unknown, Verified 07/02/22 20:38) sumatriptan succinate [From Imitrex] Allergy (Verified 07/02/22 20:38) morphine Adverse Reaction (Severe, Verified 07/02/22 20:38) Headache MIGRAINES fentanyl Adverse Reaction (Intermediate, Verified 07/02/22 20:38) Headache hydrocodone bitartrate [From Vicodin] Adverse Reaction (Mild, Verified 07/02/22 20:38) Vomiting hydromorphone [From Dilaudid] Adverse Reaction (Mild, Verified 07/02/22 20:38) pt states makes heache worse. Home Medications: ALPRAZolam 1 MG [Xanax 1 mg] 2 mg PO HS 02/17/13 [History] Cetirizine HCl/Pseudoephedrine [Zyrtec-D Tablet] 1 each PO DAILY 02/03/16 [History] Aspirin 81 mg PO DAILY 09/11/16 [History] Levothyroxine Sodium 50 Mcg [Synthroid 50 Mcg] 50 mcg PO DAILY 07/06/17 [History] Linaclotide [Linzess] 290 mcg PO DAILY 10/07/17 [History] Dexlansoprazole [Dexilant] 60 mg PO DAILY 01/21/20 [History] Fluticasone/Umeclidin/Vilanter [Trelegy Ellipta 100-62.5-25] 200 units IH DAILY 03/01/20 [History] Albuterol 2.5 mg/3 ml Neb [Proventil 2.5 mg/3 ml Neb] 2.5 mg IH QID 07/23/20 [History] Magnesium Oxide 400 mg [Mag-Ox 400] 400 mg PO TID 09/29/21 [History] dilTIAZem HCl [Diltiazem 24Hr ER (Cd)] 120 mg PO DAILY 09/29/21 [History] Omeprazole/Sodium Bicarbonate [Omeprazole-Bicarb 40-1,100 Cap] 1 cap PO DAILY 01/18/22 [History] Promethazine HCl 25 mg [Phenergan 25 mg] 25 mg PO BIDPRN PRN 01/18/22 [History] Sodium Bicarbonate 1 ea PO BID 05/01/22 [History] Apixaban [Eliquis] 5 mg PO BID 07/02/22 [History] Fluticasone/Umeclidin/Vilanter [Trelegy Ellipta 200-62.5-25] 1 each IH DAILY 07/02/22 [History] Prucalopride Succinate [Motegrity] 1 mg PO DAILY 07/02/22 [History] Rizatriptan Benzoate [Maxalt] 10 mg PO DAILY PRN 07/02/22 [History] Itraconazole 200 mg PO DAILY 07/11/22 [History] Hx Tetanus, Diphtheria Vaccination/Date Given: Yes Hx Influenza Vaccination/Date Given: Yes Hx Pneumococcal Vaccination/Date Given: No Immunizations Up to Date: Yes Travel Risk - International Travel Have you traveled outside of the country in past 3 weeks: No - Coronavirus Screening Are you exhibiting any of the following symptoms?: No Close contact with a COVID-19 positive Pt in past 14-21 Days: No - Vaccine Status Have you recieved a 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: 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[employer] - Vaccination Dates Date of 2cond Vaccination (if applicable): unknown - Review of Systems Constitutional: No Symptoms Eyes: No Symptoms Ears, Nose, & Throat: No Symptoms Respiratory: No Symptoms Cardiac: No Symptoms, Chest Pain Abdominal/Gastrointestinal: No Symptoms, Nausea Genitourinary Symptoms: No Symptoms Musculoskeletal: No Symptoms Skin: No Symptoms Neurological: No Symptoms Psychological: No Symptoms Endocrine: No Symptoms Hematologic/Lymphatic: No Symptoms Immunological/Allergic: No Symptoms - Past Medical History Pertinent Past Medical History: Yes Neurological History: Migraines ENT History: Cataracts Cardiac History: No Pertinent History Respiratory History: Bronchitis, COPD, Pulmonary Embolism Endocrine Medical History: Hypothyroidism Musculoskeletal History: Osteoarthritis GI Medical History: GERD, Other History: Other Psycho-Social History: Anxiety, Panic Disorder Female Reproductive Disorders: No Pertinent History Other Medical History: frequent uti's, chronic pseudo obstruction, blood clot - Past Surgical History Past Surgical History: Yes Neuro Surgical History: No Pertinent History Cardiac: No Pertinent History Respiratory: No Pertinent History Gastrointestinal: Cholecystectomy, Other Genitourinary: No Pertinent History Musculoskeletal: No Pertinent History Female Surgical History: No Pertinent History Other Surgical History: all of large intestine removed and most of small intestines removed. - Social History Smoking Status: Never smoker Exposure to second hand smoke: No Alcohol Use: None Drug Use: none Patient Lives Alone: No Significant Family History: no pertinent family hx - Nursing Vital Signs Nursing Vital Signs: Initial Vital Signs Temperature 96.9 F 07/11/22 02:51 Pulse Rate 102 H 07/11/22 02:51 Respiratory Rate 24 07/11/22 02:51 Blood Pressure 126/72 07/11/22 02:51 O2 Sat by Pulse Oximetry 100 07/11/22 02:51 Pain Scale Pain Intensity 6 Mildly tachy - Physical Exam General Appearance: no apparent distress, anxiety Eye Exam: PERRL/EOMI, eyes nml inspection Ears, Nose, Throat Exam: normal ENT inspection, TMs normal, pharynx normal, moist mucous membranes Neck Exam: normal inspection, non-tender, supple, full range of motion, No meningismus, No mass, No Brudzinski, No Kernig's Respiratory Exam: airway intact, crackles/rales (Faint bibasilar dry rales), No respiratory distress Cardiovascular Exam: regular rate/rhythm, normal heart sounds, normal peripheral pulses, capillary refill <2 sec, No murmur Gastrointestinal/Abdomen Exam: soft, normal bowel sounds, No tenderness Extremity Exam: normal inspection, normal range of motion Neurologic Exam: alert, 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, cooperative, 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, normal mood/affect, nml cerebellar function, nml station & gait, sensation nml Skin Exam: normal color, warm, dry Lymphatic Exam: No adenopathy SpO2 Interpretation: normal SpO2: 100 O2 Delivery: Oxymizer - Course Nursing assessment & vital signs reviewed: Yes EKG Interpreted by Me: RATE (NSR/Rate 87/Normal QT-QTc/Flat Twaves/Nonspecific ST-Twave changes) Ordered Tests: Active Orders 24 hr Category Date Time Status EKG-ER Only STAT Care 07/11/22 03:06 Completed TROPONIN Q4H Lab 07/11/22 03:12 Completed TROPONIN Q4H Lab 07/11/22 07:15 Ordered TROPONIN Q4H Lab 07/11/22 11:15 Ordered Medication Summary Discontinued Medications Generic Name Dose Route Start Last Admin Trade Name Freq PRN Reason Stop Dose Admin Heparin Sodium (Beef Lung) 500 units 07/11/22 03:48 07/11/22 03:50 Heparin Lock Flush Pf 500 Units/5 Ml Syringe PORT FLUSH 08/10/22 03:47 500 units PRN PRN Administration IV PORT FLUSH Heparin Sodium (Beef Lung) Confirm 07/11/22 03:49 Heparin Lock Flush Pf 500 Units/5 Ml Syringe Administered 07/11/22 03:50 Dose 500 units .ROUTE .STK-MED ONE Lab/Rad Data: Laboratory Results 07/11/22 Range/Units 03:12 Troponin I < 0.012 (0.000-0.034) ng/mL - Progress Progress Note: 07/11/22 03:44 Nursing note and vital signs reviewed No food or housing insecurities noted Lab work reviewed and shared w pt Pt's symptoms are most likely due to chronic anxiety. Troponin WNL and EKG wo acute changes. Pt advised to f/u w her PCP and return to the ER as needed. Counseled pt/family regarding: lab results, diagnosis, need for follow-up Medical Desision Making - Risk of complications The pt has a mod risk of morbidity or mortality based on: Need for prescription drug management - Departure Departure Disposition: Home Clinical Impression: Anxiety, Chest pain Condition: Stable Critical Care Time: No Referrals: LLUVIA CHILDERS DO [Primary Care Provider] - Follow up/PCP as directed Instructions: Anxiety, Adult (DC), Chest Pain (DC) Additional Instructions: Follow up with your family MD Continue current medications Return to ER as needed
[2022-07-11 04:05] VITALS: BP 101/71; PULSE 84
[2022-07-11 04:32] VITALS: O2SAT 100
== END 2022-07-11 04:05 | disposition home or self-care (01) ==
LOC: ED 02:40
DX: F41.9 Anxiety disorder, unspecified (principal); R07.9 Chest pain, unspecified; R20.2 Paresthesia of skin; R11.0 Nausea; Z79.01 Long term (current) use of anticoagulants; Z79.899 Other long term (current) drug therapy; Z99.81 Dependence on supplemental oxygen
CPT/HCPCS: 36000; 36415; 84484; 93005; 99284; J1642

== ENCOUNTER 2022-08-03 16:19 | Emergency (ER) | payer MEDICARE ==
--- NOTE | 2022-08-03 17:22 | ERPHSYRPT ---
- History of Present Illness Time Seen by Provider: 08/03/22 17:16 Source: patient Exam Limitations: no limitations Physician History: Patient is a 67-year-old white female who presents with symptoms of her chronic urinary tract infection. She has had exacerbation of the feelings of burning and pressure frequency etc. she also says that her kidneys have been hurting indicating pain down in the buttocks area posteriorly and nausea. She has been treated with cefdinir for 2 weeks now without benefit Timing/Duration: week(s) (2) Activites at Onset: none Quality: burning, pressure Onset Location: suprapubic Pain Radiation: none Severity of Pain-Max: moderate Severity of Pain-Current: moderate Prior abdominal problems: none Sexual intercourse history: non-contributory Modifying Factors: Improves With: nothing Associated Symptoms: abdominal pain, nausea, urinary frequency Allergies/Adverse Reactions: sumatriptan [From Imitrex] Allergy (Intermediate, Verified 08/03/22 17:12) Rash codeine Allergy (Mild, Verified 08/03/22 17:12) Rash MAKES SICK nitrofurantoin [From Macrobid] Allergy (Unknown, Verified 08/03/22 17:12) sulfamethoxazole [From Bactrim] Allergy (Unknown, Verified 08/03/22 17:12) trimethoprim [From Bactrim] Allergy (Unknown, Verified 08/03/22 17:12) sumatriptan succinate [From Imitrex] Allergy (Verified 08/03/22 17:12) morphine Adverse Reaction (Severe, Verified 08/03/22 17:12) Headache MIGRAINES fentanyl Adverse Reaction (Intermediate, Verified 08/03/22 17:12) Headache hydrocodone bitartrate [From Vicodin] Adverse Reaction (Mild, Verified 08/03/22 17:12) Vomiting hydromorphone [From Dilaudid] Adverse Reaction (Mild, Verified 08/03/22 17:12) pt states makes heache worse. Home Medications: ALPRAZolam 1 MG [Xanax 1 mg] 2 mg PO HS 02/17/13 [History] Cetirizine HCl/Pseudoephedrine [Zyrtec-D Tablet] 1 each PO DAILY 02/03/16 [History] Aspirin 81 mg PO DAILY 09/11/16 [History] Levothyroxine Sodium 50 Mcg [Synthroid 50 Mcg] 50 mcg PO DAILY 07/06/17 [History] Linaclotide [Linzess] 290 mcg PO DAILY 10/07/17 [History] Dexlansoprazole [Dexilant] 60 mg PO DAILY 01/21/20 [History] Albuterol 2.5 mg/3 ml Neb [Proventil 2.5 mg/3 ml Neb] 2.5 mg IH QID 07/23/20 [History] Magnesium Oxide 400 mg [Mag-Ox 400] 400 mg PO TID 09/29/21 [History] dilTIAZem HCl [Diltiazem 24Hr ER (Cd)] 120 mg PO DAILY 09/29/21 [History] Omeprazole/Sodium Bicarbonate [Omeprazole-Bicarb 40-1,100 Cap] 1 cap PO DAILY 01/18/22 [History] Promethazine HCl 25 mg [Phenergan 25 mg] 25 mg PO BIDPRN PRN 01/18/22 [History] Sodium Bicarbonate 1 ea PO BID 05/01/22 [History] Apixaban [Eliquis] 5 mg PO BID 07/02/22 [History] Fluticasone/Umeclidin/Vilanter [Trelegy Ellipta 200-62.5-25] 1 each IH DAILY 07/02/22 [History] Prucalopride Succinate [Motegrity] 1 mg PO DAILY 07/02/22 [History] Rizatriptan Benzoate [Maxalt] 10 mg PO DAILY PRN 07/02/22 [History] Itraconazole 200 mg PO DAILY 07/11/22 [History] Cefdinir 1 cap PO BID 08/03/22 [History] Hx Tetanus, Diphtheria Vaccination/Date Given: Yes Hx Influenza Vaccination/Date Given: Yes Hx Pneumococcal Vaccination/Date Given: No Travel Risk - Vaccine Status Have you recieved a 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: Yes [employer]: [employer] - Vaccination Dates Date of 2cond Vaccination (if applicable): unknown - Review of Systems Constitutional: No Fever, No Chills Eyes: No Symptoms Ears, Nose, & Throat: No Symptoms Respiratory: No Cough, No Dyspnea Cardiac: No Chest Pain, No Edema, No Syncope Abdominal/Gastrointestinal: No Abdominal Pain, No Nausea, No Vomiting, No Diarrhea Genitourinary Symptoms: Dysuria, Urgency Musculoskeletal: No Back Pain, No Neck Pain Skin: No Rash Neurological: No Dizziness, No Focal Weakness, No Sensory Changes Psychological: No Symptoms Endocrine: No Symptoms All Other Systems: Reviewed and Negative - Past Medical History Pertinent Past Medical History: Yes Neurological History: Migraines ENT History: Cataracts Cardiac History: No Pertinent History Respiratory History: Bronchitis, COPD, Pulmonary Embolism Endocrine Medical History: Hypothyroidism Musculoskeletal History: Osteoarthritis GI Medical History: GERD, Other History: Other Psycho-Social History: Anxiety, Panic Disorder Female Reproductive Disorders: No Pertinent History Other Medical History: frequent uti's, chronic pseudo obstruction, blood clot - Past Surgical History Past Surgical History: Yes Neuro Surgical History: No Pertinent History Cardiac: No Pertinent History Respiratory: No Pertinent History Gastrointestinal: Cholecystectomy, Other Genitourinary: No Pertinent History Musculoskeletal: No Pertinent History Female Surgical History: No Pertinent History Other Surgical History: all of large intestine removed and most of small intestines removed. - Social History Smoking Status: Never smoker Exposure to second hand smoke: No Alcohol Use: None Drug Use: none Patient Lives Alone: No Significant Family History: no pertinent family hx - Nursing Vital Signs Nursing Vital Signs: Initial Vital Signs Temperature 97.7 F 08/03/22 17:19 Pulse Rate 68 08/03/22 17:19 Respiratory Rate 18 08/03/22 17:19 Blood Pressure 92/79 08/03/22 17:19 O2 Sat by Pulse Oximetry 98 08/03/22 17:19 Pain Scale Pain Intensity 7 - Physical Exam General Appearance: mild distress, alert Eye Exam: PERRL/EOMI, eyes nml inspection Ears, Nose, Throat Exam: normal ENT inspection, TMs normal, pharynx normal, moist mucous membranes Neck Exam: normal inspection, non-tender, supple, full range of motion Respiratory Exam: normal breath sounds, lungs clear, No respiratory distress Cardiovascular Exam: regular rate/rhythm, normal heart sounds, normal peripheral pulses Gastrointestinal/Abdomen Exam: soft, tenderness (Suprapubic area), No mass Back Exam: normal inspection, normal range of motion, No CVA tenderness, No vertebral tenderness Extremity Exam: normal inspection, normal range of motion, pelvis stable Neurologic Exam: alert, 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, cooperative, 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, normal mood/affect, sensation nml, No motor deficits Skin Exam: normal color, warm, dry Lymphatic Exam: No adenopathy SpO2 Interpretation: normal SpO2: 100 O2 Delivery: Room Air - Course Nursing assessment & vital signs reviewed: Yes Ordered Tests: Active Orders 24 hr Category Date Time Status UA W/RFX UR CULTURE Stat Lab 08/03/22 17:11 Completed Lab/Rad Data: Laboratory Results 08/03/22 Range/Units 17:11 Urine Color Yellow (Yellow) Urine Appearance Cloudy A (Clear) Urine pH 5.5 (4.6-8.0) Ur Specific [place] >=1.030 A (1.005-1.030) Urine Protein Trace A (Negative) Urine Glucose (UA) Negative (Negative) mg/dL Urine Ketones Negative (Negative) Urine Blood Negative (Negative) Urine Nitrite Negative (Negative) Urine Bilirubin Negative (Negative) Urine Urobilinogen 1.0 A (0.2) mg/dL Ur Leukocyte Esterase Small A (Negative) U Hyaline Cast (Auto) None Seen (0-2) /LPF Urine Microscopic RBC 0-2 (0-5) /HPF Urine Microscopic WBC 0-2 (0-5) /HPF Ur Epithelial Cells Few (None Seen) /HPF Calcium Oxalate Crystal 11-25 A (None Seen) /HPF Urine Bacteria Few A (None Seen) /HPF Urine Culture Reflexed NO (NO) - Progress Progress: unchanged Air Movement: good Blood Culture(s) Obtained: No Antibiotics given: Yes Medical Desision Making - Diagnostic Testing Diagnostic test were ordered, analyzed, and reviewed by me: Yes - Risk of complications Low Risk: Low risk of morbidity from additional dx testing or treatment - Departure Departure Disposition: Home Clinical Impression: Urinary tract infection Condition: Stable Critical Care Time: No Referrals: LLUVIA CHILDERS DO [Primary Care Provider] - Follow up/PCP as directed Prescriptions: Levofloxacin [Levaquin 500 MG Tablet] 500 mg PO DAILY 10 Days #10 tablet Phenazopyridine HCl 200 mg [Pyridium 200 mg] 200 mg PO TID #6 tablet
[2022-08-03 17:23] VITALS: O2SAT 100
[2022-08-03 17:25] VITALS: BP 92/79; PULSE 68
[2022-08-03 17:34] LABS: Appearance Cloudy (Clear); Bilirubin Negative (Negative); Blood Negative (Negative); Glucose, Urine Negative (Negative); Ketones Negative (Negative); Leukocyte Esterase Small (Negative); Nitrite Negative (Negative); Ph 5.5 (4.6-8.0); Protein,Urine Dip Trace (Negative); Specific Gravity >=1.030 (1.005-1.030)
[2022-08-03 17:58] LABS: Bacteria Few /HPF (None Seen); Epithelial Cells Few /HPF (None Seen); Hyaline Casts None Seen /LPF (0-2); RBC 0-2 /HPF (0-5); WBC 0-2 /HPF (0-5)
[2022-08-04 06:38] LABS: ADD URINE CULTURE? YES (NO)
== END 2022-08-03 18:24 | disposition home or self-care (01) ==
LOC: ED 16:19
DX: N39.0 Urinary tract infection, site not specified (principal); R30.0 Dysuria; R35.0 Frequency of micturition; M54.50 Low back pain, unspecified; R11.0 Nausea; Z79.01 Long term (current) use of anticoagulants; Z79.899 Other long term (current) drug therapy
CPT/HCPCS: 81001; 87086; 99282

== ENCOUNTER 2022-08-16 11:37 | Emergency (ER) | payer MEDICARE ==
--- NOTE | 2022-08-16 11:49 | ERPHSYRPT ---
- History of Present Illness Time Seen by Provider: 08/16/22 11:49 Source: patient Exam Limitations: no limitations Physician History: 67-year-old female brought to the emergency room from the transfusion center with low blood pressure and an elevated lactate at 2.3. She has been receiving IV antibiotics for a resistant urinary tract infection that is being managed by urology. She denies any current symptoms other than her chronic headache. She denies chest pain, shortness of breath or dizziness. No fevers reported. Timing/Duration: today Modifying Factors: Worsens With: movement Associated Symptoms: headaches, No nausea, No vomiting, No abdominal pain, No shortness of breath, No chest pain, No fever Allergies/Adverse Reactions: sumatriptan [From Imitrex] Allergy (Intermediate, Verified 08/18/22 03:02) Rash codeine Allergy (Mild, Verified 08/18/22 03:02) Rash MAKES SICK nitrofurantoin [From Macrobid] Allergy (Unknown, Verified 08/18/22 03:02) sulfamethoxazole [From Bactrim] Allergy (Unknown, Verified 08/18/22 03:02) trimethoprim [From Bactrim] Allergy (Unknown, Verified 08/18/22 03:02) sumatriptan succinate [From Imitrex] Allergy (Verified 08/18/22 03:02) morphine Adverse Reaction (Severe, Verified 08/18/22 03:02) Headache MIGRAINES fentanyl Adverse Reaction (Intermediate, Verified 08/18/22 03:02) Headache hydrocodone bitartrate [From Vicodin] Adverse Reaction (Mild, Verified 08/18/22 03:02) Vomiting hydromorphone [From Dilaudid] Adverse Reaction (Mild, Verified 08/18/22 03:02) pt states makes heache worse. Home Medications: ALPRAZolam 1 MG [Xanax 1 mg] 2 mg PO HS 02/17/13 [History] Cetirizine HCl/Pseudoephedrine [Zyrtec-D Tablet] 1 each PO DAILY 02/03/16 [History] Aspirin 81 mg PO DAILY 09/11/16 [History] Levothyroxine Sodium 50 Mcg [Synthroid 50 Mcg] 50 mcg PO DAILY 07/06/17 [History] Linaclotide [Linzess] 290 mcg PO DAILY 10/07/17 [History] Dexlansoprazole [Dexilant] 60 mg PO DAILY 01/21/20 [History] Albuterol 2.5 mg/3 ml Neb [Proventil 2.5 mg/3 ml Neb] 2.5 mg IH QID 07/23/20 [History] Magnesium Oxide 400 mg [Mag-Ox 400] 400 mg PO TID 09/29/21 [History] dilTIAZem HCl [Diltiazem 24Hr ER (Cd)] 120 mg PO DAILY 09/29/21 [History] Omeprazole/Sodium Bicarbonate [Omeprazole-Bicarb 40-1,100 Cap] 1 cap PO DAILY 01/18/22 [History] Promethazine HCl 25 mg [Phenergan 25 mg] 25 mg PO BIDPRN PRN 01/18/22 [History] Sodium Bicarbonate 1 ea PO BID 05/01/22 [History] Apixaban [Eliquis] 5 mg PO BID 07/02/22 [History] Fluticasone/Umeclidin/Vilanter [Trelegy Ellipta 200-62.5-25] 1 each IH DAILY 07/02/22 [History] Prucalopride Succinate [Motegrity] 1 mg PO DAILY 07/02/22 [History] Rizatriptan Benzoate [Maxalt] 10 mg PO DAILY PRN 07/02/22 [History] Itraconazole 200 mg PO DAILY 07/11/22 [History] Cefdinir 1 cap PO BID 08/03/22 [History] Hx Tetanus, Diphtheria Vaccination/Date Given: Yes Hx Influenza Vaccination/Date Given: Yes Hx Pneumococcal Vaccination/Date Given: No Travel Risk - Vaccine Status Have you recieved a 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: Yes [employer]: [employer] - Vaccination Dates Date of 2cond Vaccination (if applicable): unknown - Review of Systems Constitutional: Weakness, No Fever, No Chills Eyes: No Symptoms Ears, Nose, & Throat: No Symptoms Respiratory: No Symptoms Cardiac: No Symptoms Abdominal/Gastrointestinal: No Symptoms Genitourinary Symptoms: No Symptoms Musculoskeletal: No Symptoms Skin: No Symptoms Neurological: Headache, No Dizziness Psychological: No Symptoms Endocrine: No Symptoms Hematologic/Lymphatic: No Symptoms Immunological/Allergic: No Symptoms All Other Systems: Reviewed and Negative - Past Medical History Pertinent Past Medical History: Yes Neurological History: Migraines ENT History: Cataracts Cardiac History: No Pertinent History Respiratory History: Bronchitis, COPD, Pulmonary Embolism Endocrine Medical History: Hypothyroidism Musculoskeletal History: Osteoarthritis GI Medical History: GERD, Other History: Other Psycho-Social History: Anxiety, Panic Disorder Female Reproductive Disorders: No Pertinent History Other Medical History: frequent uti's, chronic pseudo obstruction, blood clot - Past Surgical History Past Surgical History: Yes Neuro Surgical History: No Pertinent History Cardiac: No Pertinent History Respiratory: No Pertinent History Gastrointestinal: Cholecystectomy, Other Genitourinary: No Pertinent History Musculoskeletal: No Pertinent History Female Surgical History: No Pertinent History Other Surgical History: all of large intestine removed and most of small intestines removed. - Social History Smoking Status: Never smoker Exposure to second hand smoke: No Alcohol Use: None Drug Use: none Patient Lives Alone: No Significant Family History: no pertinent family hx - Nursing Vital Signs Nursing Vital Signs: Initial Vital Signs Temperature 98.5 F 08/16/22 11:48 Pulse Rate 93 H 08/16/22 11:48 Respiratory Rate 18 08/16/22 11:48 Blood Pressure 99/74 08/16/22 11:48 O2 Sat by Pulse Oximetry 95 08/16/22 11:48 Pain Scale Pain Intensity 3 - Physical Exam General Appearance: no apparent distress Eye Exam: eyes nml inspection Ears, Nose, Throat Exam: normal ENT inspection Neck Exam: normal inspection, non-tender, supple, full range of motion Respiratory Exam: normal breath sounds, lungs clear, airway intact, No respiratory distress Cardiovascular Exam: regular rate/rhythm, normal heart sounds, capillary refill <2 sec, No edema Gastrointestinal/Abdomen Exam: soft, normal bowel sounds, No tenderness, No distention, No guarding, No rebound Back Exam: normal inspection, No CVA tenderness Extremity Exam: normal inspection, No pedal edema, No swelling, No tenderness Neurologic Exam: alert, 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, cooperative, 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, sensation nml, No motor deficits Skin Exam: normal color, warm, dry SpO2 Interpretation: normal O2 Delivery: Room Air - Course Nursing assessment & vital signs reviewed: Yes Ordered Tests: Medication Summary Discontinued Medications Generic Name Dose Route Start Last Admin Trade Name Freq PRN Reason Stop Dose Admin Gentamicin Sulfate Confirm 08/16/22 13:29 Gentamicin Sulfate 80 Mg/2 Ml Vial Administered 08/16/22 13:30 Dose 160 mg .ROUTE .STK-MED ONE Heparin Sodium (Beef Lung) 500 units 08/16/22 14:42 08/16/22 14:47 Heparin Lock Flush Pf 500 Units/5 Ml Syringe PORT FLUSH 08/16/22 14:43 500 units STAT ONE Administration Heparin Sodium (Beef Lung) Confirm 08/16/22 14:47 Heparin Lock Flush Pf 500 Units/5 Ml Syringe Administered 08/16/22 14:48 Dose 500 units .ROUTE .STK-MED ONE Gentamicin Sulfate 150 mg/ 53.75 mls @ 100 mls/hr 08/16/22 12:07 08/16/22 13:42 Sodium Chloride IV 08/16/22 12:39 100 mls/hr STAT STA Administration Lactated Ringer's 1,000 mls @ 999 mls/hr 08/16/22 12:30 08/16/22 14:44 Lactated Ringers IV 08/16/22 15:30 Not Given .Q1H1M [facility] Sodium Chloride Confirm 08/16/22 13:30 Sodium Chloride 0.9% 50 Ml Administered 08/16/22 13:31 Dose 50 mls @ ud IV .STK-MED ONE Sodium Chloride Confirm 08/16/22 13:41 Sodium Chloride 0.9% 50 Ml Administered 08/16/22 13:42 Dose 50 mls @ ud IV .STK-MED ONE Lactated Ringer's Confirm 08/16/22 12:17 Lactated Ringers Administered 08/16/22 12:18 Dose 1,000 mls @ ud IV .STK-MED ONE Lactated Ringer's Confirm 08/16/22 13:29 Lactated Ringers Administered 08/16/22 13:30 Dose 1,000 mls @ ud IV .STK-MED ONE Ondansetron HCl 4 mg 08/16/22 12:07 08/16/22 12:17 Ondansetron Hcl 4 Mg/2 Ml Vial IV 08/16/22 12:08 4 mg STAT ONE Administration Ondansetron HCl Confirm 08/16/22 12:17 Ondansetron Hcl 4 Mg/2 Ml Vial Administered 08/16/22 12:18 Dose 4 mg .ROUTE .STK-MED ONE Lab/Rad Data: Laboratory Result Diagrams 08/16/22 12:15 08/16/22 12:15 Laboratory Results 08/16/22 08/16/22 08/16/22 Range/Units 12:15 12:15 12:15 WBC 5.4 (4.0-10.5) x10^3/uL RBC 4.13 (4.1-5.4) x10^6/uL Hgb 12.3 (12.0-16.0) g/dL Hct 38.0 (35-47) % MCV 92.0 (78-100) fL MCH 29.8 (26-32) pg MCHC 32.4 (32-36) g/dL RDW 15.5 H (11.5-14.0) % Plt Count 187 (150-450) x10^3/uL MPV 10.5 (7.5-11.0) fL Gran % 68.9 H (36.0-66.0) % Immature Gran % (Auto) 0.9 H (0.00-0.4) % Nucleat RBC Rel Count 0.0 (0.00-0.1) % Eos # (Auto) 0.06 (0-0.5) x10^3/uL Immature Gran # (Auto) 0.05 H (0.00-0.03) x10^3u/L Absolute Lymphs (auto) 1.13 (1.0-4.6) x10^3/uL Absolute Monos (auto) 0.42 (0.0-1.3) x10^3/uL Absolute Nucleated RBC 0.00 (0.00-0.01) x10^3u/L Lymphocytes % 20.9 L (24.0-44.0) % Monocytes % 7.8 (0.0-12.0) % Eosinophils % 1.1 (0.00-5.0) % Basophils % 0.4 (0.0-0.4) % Absolute Granulocytes 3.72 (1.4-6.9) x10^3/uL Basophils # 0.02 (0-0.4) x10^3/uL Sodium 140 (137-145) mmol/L Potassium 3.8 (3.5-5.1) mmol/L Chloride 108 H (98-107) mmol/L Carbon Dioxide 24 (22-30) mmol/L Anion Gap 12.0 (5-15) MEQ/L BUN 19 H (7-17) mg/dL Creatinine 1.22 H (0.52-1.04) mg/dL Estimated GFR 46.7 ML/MIN Glucose 102 (74-106) mg/dL Calcium 8.7 (8.4-10.2) mg/dL Total Bilirubin 0.40 (0.2-1.3) mg/dL AST 24 (14-36) U/L ALT 21 (0-35) U/L Alkaline Phosphatase 107 (38-126) U/L Serum Total Protein 6.6 (6.3-8.2) g/dL Albumin 3.7 (3.5-5.0) g/dL Procalcitonin 0.090 H (0.030-0.080) ng/mL - Progress Progress: unchanged Progress Note: Since patient was not given her dose of gentamicin in the infusion center her dose for today was given. Lab evaluation showed no acute abnormality. Sepsis work-up negative. Patient was given IV fluids to help raise her blood pressure which was normal on ambulation after 2 L fluids. I stressed the importance of keeping her infusion center appointments to continue her IV antibiotics until complete. Please follow-up with urology in 3 to 5 days. If blood pressure remains low or new symptoms develop please return to the emergency room. Counseled pt/family regarding: lab results, diagnosis, need for follow-up Medical Desision Making - Diagnostic Testing Diagnostic test were ordered, analyzed, and reviewed by me: Yes Radiological Interpretation: Interpreted by me - Risk of complications The pt has a mod risk of morbidity or mortality based on: Need for prescription drug management - Departure Departure Disposition: Home Clinical Impression: Hypotension due to hypovolemia, Acute UTI Condition: Stable Critical Care Time: No Referrals: LLUVIA CHILDERS DO [Primary Care Provider] - Follow up/PCP as directed Instructions: Low Blood Pressure (DC)
[2022-08-16] MEDS ORDERED: GARAMYCIN IV STA (12:07)
[2022-08-16] MEDS ORDERED: SODIUM CHLORIDE 0.9% IV STA (12:07)
[2022-08-16] MEDS ORDERED: Zofran 4 MG/2 ML VIAL IV ONE (12:07)
[2022-08-16] MEDS ORDERED: Lactated Ringers 1,000 ML IV ONE ×2 (12:17→13:29)
[2022-08-16] MEDS ORDERED: Zofran 4 MG/2 ML VIAL ONE (12:17)
[2022-08-16] MEDS: Lactated Ringers 1,000 ML IV SCH ×3 (12:18→14:44)
[2022-08-16 12:24] LABS: Absolute Neutrophil Ct (ANC) 3.72 x10^3/uL (1.4-6.9); BASOPHIL % 0.4 % (0.0-0.4); Basophil (Absolute #) 0.02 x10^3/uL (0-0.4); Eosinophil % 1.1 % (0.00-5.0); Eosinophil (Absolute #) 0.06 x10^3/uL (0-0.5); Hemoglobin 12.3 g/dL (12.0-16.0); IMMATURE GRAN # 0.05 x10^3u/L (0.00-0.03); IMMATURE GRAN % 0.9 % (0.00-0.4); Lymphocyte (Absolute #) 1.13 x10^3/uL (1.0-4.6); Lymphocytes % 20.9 % (24.0-44.0); Mean Corpuscular Hemoglobin 29.8 pg (26-32); Mean Corpuscular Hgb Concent. 32.4 g/dL (32-36); Mean Platelet Volume 10.5 fL (7.5-11.0); Monocyte (Absolute #) 0.42 x10^3/uL (0.0-1.3); Monocytes % 7.8 % (0.0-12.0); Neutrophil % 68.9 % (36.0-66.0); Platelet Count 187 x10^3/uL (150-450); Red Blood Count 4.13 x10^6/uL (4.1-5.4); Red Cell Distribution Width 15.5 % (11.5-14.0); White Blood Count 5.4 x10^3/uL (4.0-10.5)
[2022-08-16 12:45] LABS: ALBUMIN 3.7 g/dL (3.5-5.0); BILIRUBIN,TOTAL 0.4 mg/dL (0.2-1.3); Calcium 8.7 mg/dL (8.4-10.2); Creatinine 1 1.22 mg/dL (0.52-1.04); EST GLOMERULAR FILTRATION RATE 46.7 ML/MIN; Potassium 3.8 mmol/L (3.5-5.1); Total Protein 6.6 g/dL (6.3-8.2)
[2022-08-16] MEDS ORDERED: GARAMYCIN INJ ONE (13:29)
[2022-08-16] MEDS ORDERED: SODIUM CHLORIDE 0.9% IV ONE (13:30)
[2022-08-16 14:34] VITALS: BP 124/100; PULSE 81; O2SAT 97
== END 2022-08-16 15:02 | disposition home or self-care (01) ==
LOC: ED 11:37
DX: I95.89 Other hypotension (principal); E86.1 Hypovolemia; N39.0 Urinary tract infection, site not specified; R51.9 Headache, unspecified; Z79.01 Long term (current) use of anticoagulants; Z79.899 Other long term (current) drug therapy
CPT/HCPCS: 36415; 80053; 80170; 82550; 83605; 84145; 85025; 96365; 96374; 99211; 99284; J1580; J1642; J2405

== ENCOUNTER 2022-08-18 02:59 | Emergency (ER) | payer MEDICARE ==
--- NOTE | 2022-08-18 03:22 | ERPHSYRPT ---
- History of Present Illness Time Seen by Provider: 08/18/22 03:16 Historian: patient Exam Limitations: no limitations Physician History: This is a 67-year-old white female who who has a history of recurrent UTIs. She has a Port-A-Cath in place and she is on antibiotics intravenously. The antibiotic that she is taking makes her nauseated and she has had some vomiting. Patient arrives with a systolic blood pressure 121 and heart rate was in the 90s to low 100s. She states that her last infusion of intravenous antibiotics was Wednesday morning. She last took Phenergan at 2100 on 08/17/2022. Patient was here in this emergency department on 08/16/2022 for the same issue which is post IV antibiotic infusion nausea and vomiting. Activities at Onset: none Abdominal Pain Onset Location: generalized abdomen Severity of Pain-Max: none Severity of Pain-Current: none Modifying Factors: Improves With: vomiting Associated Symptoms: nausea, vomiting Previous symptoms: same symptoms as today, recently seen, recently treated Allergies/Adverse Reactions: sumatriptan [From Imitrex] Allergy (Intermediate, Verified 08/18/22 03:02) Rash codeine Allergy (Mild, Verified 08/18/22 03:02) Rash MAKES SICK nitrofurantoin [From Macrobid] Allergy (Unknown, Verified 08/18/22 03:02) sulfamethoxazole [From Bactrim] Allergy (Unknown, Verified 08/18/22 03:02) trimethoprim [From Bactrim] Allergy (Unknown, Verified 08/18/22 03:02) sumatriptan succinate [From Imitrex] Allergy (Verified 08/18/22 03:02) morphine Adverse Reaction (Severe, Verified 08/18/22 03:02) Headache MIGRAINES fentanyl Adverse Reaction (Intermediate, Verified 08/18/22 03:02) Headache hydrocodone bitartrate [From Vicodin] Adverse Reaction (Mild, Verified 08/18/22 03:02) Vomiting hydromorphone [From Dilaudid] Adverse Reaction (Mild, Verified 08/18/22 03:02) pt states makes heache worse. Home Medications: ALPRAZolam 1 MG [Xanax 1 mg] 2 mg PO HS 02/17/13 [History] Cetirizine HCl/Pseudoephedrine [Zyrtec-D Tablet] 1 each PO DAILY 12/19/16 [History] Aspirin 81 mg PO DAILY 09/11/16 [History] Levothyroxine Sodium 50 Mcg [Synthroid 50 Mcg] 50 mcg PO DAILY 07/06/17 [History] Linaclotide [Linzess] 290 mcg PO DAILY 10/07/17 [History] Dexlansoprazole [Dexilant] 60 mg PO DAILY 01/21/20 [History] Albuterol 2.5 mg/3 ml Neb [Proventil 2.5 mg/3 ml Neb] 2.5 mg IH QID 07/23/20 [History] Magnesium Oxide 400 mg [Mag-Ox 400] 400 mg PO TID 09/29/21 [History] dilTIAZem HCl [Diltiazem 24Hr ER (Cd)] 120 mg PO DAILY 09/29/21 [History] Omeprazole/Sodium Bicarbonate [Omeprazole-Bicarb 40-1,100 Cap] 1 cap PO DAILY 01/18/22 [History] Promethazine HCl 25 mg [Phenergan 25 mg] 25 mg PO BIDPRN PRN 01/18/22 [History] Sodium Bicarbonate 1 ea PO BID 05/01/22 [History] Apixaban [Eliquis] 5 mg PO BID 07/02/22 [History] Fluticasone/Umeclidin/Vilanter [Trelegy Ellipta 200-62.5-25] 1 each IH DAILY 07/02/22 [History] Prucalopride Succinate [Motegrity] 1 mg PO DAILY 07/02/22 [History] Rizatriptan Benzoate [Maxalt] 10 mg PO DAILY PRN 07/02/22 [History] Itraconazole 200 mg PO DAILY 07/11/22 [History] Cefdinir 1 cap PO BID 08/03/22 [History] Hx Tetanus, Diphtheria Vaccination/Date Given: Yes Hx Influenza Vaccination/Date Given: Yes Hx Pneumococcal Vaccination/Date Given: No Travel Risk - International Travel Have you traveled outside of the country in past 3 weeks: No - Coronavirus Screening Are you exhibiting any of the following symptoms?: No Close contact with a COVID-19 positive Pt in past 14-21 Days: No - Vaccine Status Have you recieved a 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: Yes 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[employer] - Vaccination Dates Date of 2cond Vaccination (if applicable): unknown - Review of Systems Constitutional: No Symptoms Eyes: No Symptoms Ears, Nose, & Throat: No Symptoms Respiratory: No Symptoms Cardiac: No Symptoms Abdominal/Gastrointestinal: Nausea, Vomiting, No Abdominal Pain, No Diarrhea Genitourinary Symptoms: No Symptoms Musculoskeletal: No Symptoms Skin: No Symptoms Neurological: No Symptoms Psychological: No Symptoms Endocrine: No Symptoms Hematologic/Lymphatic: No Symptoms Immunological/Allergic: No Symptoms All Other Systems: Reviewed and Negative - Past Medical History Pertinent Past Medical History: Yes Neurological History: Migraines ENT History: Cataracts Cardiac History: No Pertinent History Respiratory History: Bronchitis, COPD, Pulmonary Embolism Endocrine Medical History: Hypothyroidism Musculoskeletal History: Osteoarthritis GI Medical History: GERD, Other History: Other Psycho-Social History: Anxiety, Panic Disorder Female Reproductive Disorders: No Pertinent History Other Medical History: frequent uti's, chronic pseudo obstruction, blood clot - Past Surgical History Past Surgical History: Yes Neuro Surgical History: No Pertinent History Cardiac: No Pertinent History Respiratory: No Pertinent History Gastrointestinal: Cholecystectomy, Other Genitourinary: No Pertinent History Musculoskeletal: No Pertinent History Female Surgical History: No Pertinent History Other Surgical History: all of large intestine removed and most of small intestines removed. - Social History Smoking Status: Never smoker Exposure to second hand smoke: No Alcohol Use: None Drug Use: none Patient Lives Alone: No Significant Family History: no pertinent family hx - Nursing Vital Signs Nursing Vital Signs: Initial Vital Signs Temperature 97.6 F 08/18/22 03:10 Pulse Rate 106 H 08/18/22 03:10 Respiratory Rate 22 08/18/22 03:10 Blood Pressure 122/71 08/18/22 03:10 O2 Sat by Pulse Oximetry 94 L 08/18/22 03:10 Pain Scale Pain Intensity 8 - Physical Exam General Appearance: no apparent distress, alert, anxiety Eye Exam: PERRL/EOMI, eyes nml inspection Ears, Nose, Throat Exam: normal ENT inspection, moist mucous membranes Neck Exam: normal inspection, non-tender, supple, full range of motion Respiratory Exam: airway intact, No chest tenderness, No respiratory distress Gastrointestinal/Abdomen Exam: soft, normal bowel sounds, No tenderness Pelvic Exam: not done Rectal Exam: not done Back Exam: normal inspection, normal range of motion, No CVA tenderness, No vertebral tenderness Extremity Exam: normal inspection, normal range of motion, pelvis stable Neurologic Exam: alert, 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, cooperative, 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 nml as tested, normal mood/affect, nml cerebellar function, nml station & gait, sensation nml Skin Exam: normal color, warm, dry Lymphatic Exam: No adenopathy SpO2 Interpretation: normal O2 Delivery: Room Air - Course Nursing assessment & vital signs reviewed: Yes Ordered Tests: Active Orders 24 hr Category Date Time Status BMP Stat Lab 08/18/22 04:00 Received CBC Stat Lab 08/18/22 04:00 Completed Medication Summary Discontinued Medications Generic Name Dose Route Start Last Admin Trade Name Freq PRN Reason Stop Dose Admin Prochlorperazine Edisylate 10 mg 08/18/22 04:18 Prochlorperazine Edisylate 10 Mg/2 Ml Vial IM 08/18/22 04:19 STAT ONE Lab/Rad Data: Laboratory Result Diagrams 08/18/22 04:00 Laboratory Results 08/18/22 Range/Units 04:00 WBC 5.0 (4.0-10.5) x10^3/uL RBC 3.95 L (4.1-5.4) x10^6/uL Hgb 11.8 L (12.0-16.0) g/dL Hct 36.6 (35-47) % MCV 92.7 (78-100) fL MCH 29.9 (26-32) pg MCHC 32.2 (32-36) g/dL RDW 15.3 H (11.5-14.0) % Plt Count 166 (150-450) x10^3/uL MPV 9.7 (7.5-11.0) fL - Progress Progress: improved, re-examined Progress Note: 08/18/22 03:23 This patient's medical issue is 1 of moderate complexity. Level of complexity in the work-up performed is based on the review of the patient's past medical history, review of the patient's medication list, review of the drug allergy list, history of present illness and physical findings on examination. This patient has a diagnosis already and has some nausea and vomiting post infusion of an antibiotic. I will check electrolytes and renal function and provide her with intravenous normal saline solution. 08/18/22 04:30 Patient is afebrile. Her systolic blood pressure is in a reasonable range as is her heart rate. She has a normal white count. Her anion gap is normal. Her CO2 is also normal. We will give her a dose of intramuscular Compazine. We will discharge her to home and have her follow-up with the infusion center and I will recommend that she discusses with infusion center to provide her with an infusion of an antiemetic and a liter of fluid to go along with the intravenous antibiotic treatment. Counseled pt/family regarding: lab results, diagnosis, need for follow-up Medical Desision Making - Diagnostic Testing Diagnostic test were ordered, analyzed, and reviewed by me: Yes - Risk of complications Low Risk: Low risk of morbidity from additional dx testing or treatment - Departure Departure Disposition: Home Clinical Impression: Nausea & vomiting Condition: Stable Critical Care Time: No Referrals: LLUVIA CHILDERS DO [Primary Care Provider] - Follow up/PCP as directed Additional Instructions: Drink plenty of clear liquids. Follow-up with your primary care provider and the infusion center. Discussed receiving a dose of intravenous antiemetic and an additional liter of normal saline infusion at the time you received your antibiotic infusion.
[2022-08-18 03:29] VITALS: O2SAT 94
[2022-08-18 04:09] LABS: Hematocrit 36.6 % (35-47); Hemoglobin 11.8 g/dL (12.0-16.0); Mean Cell Volume 92.7 fL (78-100); Mean Corpuscular Hemoglobin 29.9 pg (26-32); Mean Corpuscular Hgb Concent. 32.2 g/dL (32-36); Mean Platelet Volume 9.7 fL (7.5-11.0); Platelet Count 166 x10^3/uL (150-450); Red Blood Count 3.95 x10^6/uL (4.1-5.4); Red Cell Distribution Width 15.3 % (11.5-14.0)
[2022-08-18] MEDS ORDERED: Compazine 10 MG/2 ML IM ONE (04:18)
[2022-08-18 04:20] VITALS: BP 123/81; PULSE 93
[2022-08-18 04:25] LABS: Calcium 8.4 mg/dL (8.4-10.2); Creatinine 1 1.29 mg/dL (0.52-1.04); EST GLOMERULAR FILTRATION RATE 43.8 ML/MIN; Potassium 3.7 mmol/L (3.5-5.1)
[2022-08-18] MEDS ORDERED: Compazine 10 MG/2 ML ONE (04:30)
== END 2022-08-18 04:51 | disposition home or self-care (01) ==
LOC: ED 02:59
DX: R11.2 Nausea with vomiting, unspecified (principal); Z79.01 Long term (current) use of anticoagulants; Z79.899 Other long term (current) drug therapy
CPT/HCPCS: 36415; 80048; 85027; 96372; 99283; J1580; J1642

== ENCOUNTER 2022-08-25 12:26 | Emergency (ER) | payer MEDICARE ==
[2022-08-25 12:40] VITALS: O2SAT 98
[2022-08-25] MEDS ORDERED: Augmentin 875-125 Tablet PO ONE (13:02)
[2022-08-25] MEDS ORDERED: TORAdol 30 mg Injection IM ONE (13:03)
[2022-08-25] MEDS ORDERED: DECADRON 10MG INJ. IM ONE (13:03)
--- NOTE | 2022-08-25 13:07 | ERPHSYRPT ---
- History of Present Illness Time Seen by Provider: 08/25/22 13:01 Source: patient Exam Limitations: no limitations Patient Subjective Stated Complaint: pt here for pain to throat for a couple days now with a headache, she also states she has a UTI now and painful to urina te Triage Nursing Assessment: pt alert, resp easy, o2 at 3 lnc, skin w/d/p Physician History: Patient 67-year-old female presents to our ED for evaluation of a sore throat. Patient has been experiencing a sore throat and mild laryngitis for approximately 2 days. Symptoms are constant. Patient has a slight headache. No neck pain no fever no photophobia no meningeal signs. Patient called her primary care doctor but she is not in today. Patient also requesting that we pull up microbiology on her urinalysis that was performed yesterday. Patient states that she has been experiencing some dysuria. Patient has a urologist that she is currently working with. Patient called her urologist office for follow-up. They advised her to have the ER doctor look up the urine cultures from 2 days ago. Patient voices no other complaints or concerns at this time. Portions of this note were created with voice recognition technology. There may be grammatical, spelling, punctuation or sound alike errors Timing/Duration: day(s) (2 days ago) Severity: moderate Associated Symptoms: denies symptoms Allergies/Adverse Reactions: sumatriptan [From Imitrex] Allergy (Intermediate, Verified 08/25/22 12:45) Rash codeine Allergy (Mild, Verified 08/25/22 12:45) Rash MAKES SICK nitrofurantoin [From Macrobid] Allergy (Unknown, Verified 08/25/22 12:45) sulfamethoxazole [From Bactrim] Allergy (Unknown, Verified 08/25/22 12:45) trimethoprim [From Bactrim] Allergy (Unknown, Verified 08/25/22 12:45) sumatriptan succinate [From Imitrex] Allergy (Verified 08/25/22 12:45) morphine Adverse Reaction (Severe, Verified 08/25/22 12:45) Headache MIGRAINES fentanyl Adverse Reaction (Intermediate, Verified 08/25/22 12:45) Headache hydrocodone bitartrate [From Vicodin] Adverse Reaction (Mild, Verified 08/25/22 12:45) Vomiting hydromorphone [From Dilaudid] Adverse Reaction (Mild, Verified 08/25/22 12:45) pt states makes heache worse. Home Medications: ALPRAZolam 1 MG [Xanax 1 mg] 2 mg PO HS 02/17/13 [History] Cetirizine HCl/Pseudoephedrine [Zyrtec-D Tablet] 1 each PO DAILY 02/03/16 [History] Aspirin 81 mg PO DAILY 09/11/16 [History] Levothyroxine Sodium 50 Mcg [Synthroid 50 Mcg] 50 mcg PO DAILY 07/06/17 [History] Linaclotide [Linzess] 290 mcg PO DAILY 10/07/17 [History] Dexlansoprazole [Dexilant] 60 mg PO DAILY 01/21/20 [History] Albuterol 2.5 mg/3 ml Neb [Proventil 2.5 mg/3 ml Neb] 2.5 mg IH QID 07/23/20 [History] Magnesium Oxide 400 mg [Mag-Ox 400] 400 mg PO TID 09/29/21 [History] dilTIAZem HCl [Diltiazem 24Hr ER (Cd)] 120 mg PO DAILY 09/29/21 [History] Omeprazole/Sodium Bicarbonate [Omeprazole-Bicarb 40-1,100 Cap] 1 cap PO DAILY 01/18/22 [History] Promethazine HCl 25 mg [Phenergan 25 mg] 25 mg PO BIDPRN PRN 01/18/22 [History] Sodium Bicarbonate 1 ea PO BID 05/01/22 [History] Apixaban [Eliquis] 5 mg PO BID 07/02/22 [History] Fluticasone/Umeclidin/Vilanter [Trelegy Ellipta 200-62.5-25] 1 each IH DAILY 07/02/22 [History] Prucalopride Succinate [Motegrity] 1 mg PO DAILY 07/02/22 [History] Rizatriptan Benzoate [Maxalt] 10 mg PO DAILY PRN 07/02/22 [History] Itraconazole 200 mg PO DAILY 07/11/22 [History] Cefdinir 1 cap PO BID 08/03/22 [History] Hx Tetanus, Diphtheria Vaccination/Date Given: Yes Hx Influenza Vaccination/Date Given: Yes Hx Pneumococcal Vaccination/Date Given: No Immunizations Up to Date: Yes Travel Risk - International Travel Have you traveled outside of the country in past 3 weeks: No - Coronavirus Screening Are you exhibiting any of the following symptoms?: No Close contact with a COVID-19 positive Pt in past 14-21 Days: No - Vaccine Status Have you recieved a 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: 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[employer] - Vaccination Dates Date of 2cond Vaccination (if applicable): unknown - Review of Systems Constitutional: No Symptoms, No Fever, No Chills Eyes: No Symptoms Ears, Nose, & Throat: No Symptoms Respiratory: No Symptoms, No Cough, No Dyspnea Cardiac: No Symptoms, No Chest Pain, No Edema, No Syncope Abdominal/Gastrointestinal: No Symptoms, No Abdominal Pain, No Nausea, No Vomiting, No Diarrhea Genitourinary Symptoms: No Symptoms, No Dysuria Musculoskeletal: No Symptoms, No Back Pain, No Neck Pain Skin: No Symptoms, No Rash Neurological: No Symptoms, No Dizziness, No Focal Weakness, No Sensory Changes Psychological: No Symptoms Endocrine: No Symptoms Hematologic/Lymphatic: No Symptoms Immunological/Allergic: No Symptoms All Other Systems: Reviewed and Negative - Past Medical History Pertinent Past Medical History: Yes Neurological History: Migraines ENT History: Cataracts Cardiac History: No Pertinent History Respiratory History: Bronchitis, COPD, Pulmonary Embolism Endocrine Medical History: Hypothyroidism Musculoskeletal History: Osteoarthritis GI Medical History: GERD, Other History: Other Psycho-Social History: Anxiety, Panic Disorder Female Reproductive Disorders: No Pertinent History Other Medical History: frequent uti's, chronic pseudo obstruction, blood clot - Past Surgical History Past Surgical History: Yes Neuro Surgical History: No Pertinent History Cardiac: No Pertinent History Respiratory: No Pertinent History Gastrointestinal: Cholecystectomy, Other Genitourinary: No Pertinent History Musculoskeletal: No Pertinent History Female Surgical History: No Pertinent History Other Surgical History: all of large intestine removed and most of small intestines removed. - Social History Smoking Status: Never smoker Exposure to second hand smoke: No Alcohol Use: None Drug Use: none Patient Lives Alone: No Significant Family History: no pertinent family hx - Nursing Vital Signs Nursing Vital Signs: Initial Vital Signs Temperature 97.1 F 08/25/22 12:39 Pulse Rate 85 08/25/22 12:39 Respiratory Rate 18 08/25/22 12:39 Blood Pressure 121/92 08/25/22 12:39 O2 Sat by Pulse Oximetry 98 08/25/22 12:39 Pain Scale Pain Intensity 9 - Physical Exam General Appearance: no apparent distress, alert Eye Exam: PERRL/EOMI, eyes nml inspection, other (Erythematous oropharynx.) Ears, Nose, Throat Exam: normal ENT inspection, TMs normal, pharynx normal, moist mucous membranes Neck Exam: normal inspection, non-tender, supple, full range of motion Respiratory Exam: normal breath sounds, lungs clear, airway intact, No respiratory distress Cardiovascular Exam: regular rate/rhythm, normal heart sounds, normal peripheral pulses Gastrointestinal/Abdomen Exam: soft, normal bowel sounds, No tenderness, No mass Back Exam: normal inspection, normal range of motion, No CVA tenderness, No vertebral tenderness Extremity Exam: normal inspection, normal range of motion, pelvis stable Neurologic Exam: alert, 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, cooperative, normal mood/affect, nml cerebellar function, nml station & gait, sensation nml, No motor deficits Skin Exam: normal color, warm, dry, No rash Lymphatic Exam: No adenopathy SpO2 Interpretation: normal SpO2: 98 O2 Delivery: Room Air - Course Nursing assessment & vital signs reviewed: Yes - Progress Progress: improved Progress Note: Patient is a 67 year-old female presents to our ED for evaluation of a sore throat. Physical exam reveals a pharyngitis. Patient received a dose of Augmentin and Decadron in our ED. Patient requested that we follow-up on urine culture that was obtained yesterday. Urine culture shows skin contamination. Normal skin sharif. however the read is preliminary. We will discharge patient home. Patient will receive a prescription for Augmentin and Pyridium. Patient advised to follow-up with Dr. Hidalgo within the next couple days. Patient advised that she has chronic cystitis. Patient currently has a follow-up appointment with her urologist this week. Patient resting comfortably. She voices no other complaints or concerns at this time. 08/25/22 13:10 Complexity of problem addressed is low acute uncomplicated Complex of data reviewed and analyzed is none. No specialized testing ordered. Diagnosis made based on history and physical exam Risk of complication and or risk of morbidity/mortality of patient management is moderate. Prescription for Augmentin and Pyridium forwarded to patient's pharmacy. We will discharge home. Patient agrees to follow-up with her primary care doctor within 48 hours. Vital stable. Diagnosis pharyngitis and dysuria. Plan of care established for shared decision making. Time to discharge patient approximately 15 minutes. 08/25/22 13:13 Counseled pt/family regarding: diagnosis, need for follow-up - Departure Departure Disposition: Home Clinical Impression: Pharyngitis, Dysuria, Laryngitis Condition: Stable Critical Care Time: No Referrals: LLUVIA CHILDERS, [Primary Care Provider] - Follow up/PCP as directed Additional Instructions: Discharge/Care Plan GEOVANNY FREY was seen on 08/25/22 in the Emergency Room. The patient was counseled regarding Diagnosis,Lab results, Imaging studies, need for follow up and when to return to the Emergency Room. Prescriptions given: Discharge Note I have spoken with the patient and/or caregivers. I have explained the patient's condition, diagnosis and treatment plan based on the information available to me at this time. I have answered the patient's and/or caregiver's questions and addressed any concerns. The patient and/or caregivers have as good understanding of the patient's diagnosis, condition and treatment plan as can be expected at this point. The vital signs have been stable. The patient's condition is stable and appropriate for discharge from the emergency department. The patient will pursue further outpatient evaluation with the primary care physician or other designated or consulting physician as outlined in the dis charge instructions. The patient and/or caregivers are agreeable to this plan of care and follow-up instructions have been explained in detail. The patient and/or caregivers have received these instruction. The patient/and or caregivers are aware that any significant change in condition or worsening of symptoms should prompt an immediate return to this or the closest emergency department or call 911. Prescriptions: Amox Tr/Potass Clav. 875 mg [Augmentin 875-125 Tablet] 875 mg PO BID 7 Days #14 tablet Phenazopyridine HCl 200 mg [Pyridium 200 mg] 200 mg PO TID 2 Days #6 tablet
[2022-08-25] MEDS ORDERED: TORAdol 30 mg Injection ONE (13:09)
[2022-08-25] MEDS ORDERED: DECADRON 10MG INJ. ONE (13:09)
[2022-08-25] MEDS ORDERED: Augmentin 875-125 Tablet ONE (13:10)
[2022-08-25 13:34] VITALS: BP 134/82; PULSE 82
== END 2022-08-25 13:41 | disposition home or self-care (01) ==
LOC: ED 12:26
DX: J02.9 Acute pharyngitis, unspecified (principal); R30.0 Dysuria; J04.0 Acute laryngitis; R51.9 Headache, unspecified; Z79.01 Long term (current) use of anticoagulants; Z79.899 Other long term (current) drug therapy
CPT/HCPCS: 96372; 99283; J1100; J1885; A9270-GY

== ENCOUNTER 2022-09-08 14:05 | Observation (INO) | payer MEDICARE ==
[2022-09-08 15:05] LABS: Appearance Cloudy (Clear); Bilirubin Small (Negative); Blood Negative (Negative); Glucose, Urine Negative (Negative); Ketones Negative (Negative); Leukocyte Esterase Moderate (Negative); Nitrite Negative (Negative); Ph 5.5 (4.6-8.0); Protein,Urine Dip Trace (Negative); Specific Gravity >=1.030 (1.005-1.030); WBC 21-50 /HPF (0-5)
[2022-09-08 15:06] LABS: ADD URINE CULTURE? YES (NO); Bacteria Moderate /HPF (None Seen); Budding Yeast Rare /HPF (None Seen); Epithelial Cells Few /HPF (None Seen); Hyaline Casts None Seen /LPF (0-2)
[2022-09-08] MEDS ORDERED: Rocephin 1000 MG INJ IM ONE (16:39)
[2022-09-08] MEDS ORDERED: Rocephin 1000 MG INJ ONE (16:41)
[2022-09-08] MEDS ORDERED: VANCOMYCIN 1 GRAM/200 ML BAG 1 GM/200 ML PIGGYBACK IV ONE ×2 (16:49→17:12)
[2022-09-08] MEDS ORDERED: MILK OF MAGNESIA 30 ML PO ONE ×2 (16:57→20:00)
[2022-09-08] MEDS ORDERED: MILK OF MAGNESIA 30 ML ONE (16:58)
[2022-09-08] MEDS: Sodium Chloride 0.9% 1000 ML 1,000 ML IV SCH (17:14)
[2022-09-08 17:16] LABS: Absolute Neutrophil Ct (ANC) 6.74 x10^3/uL (1.4-6.9); BASOPHIL % 0.7 % (0.0-0.4); Basophil (Absolute #) 0.06 x10^3/uL (0-0.4); Eosinophil % 0.6 % (0.00-5.0); Eosinophil (Absolute #) 0.05 x10^3/uL (0-0.5); Hematocrit 37.8 % (35-47); Hemoglobin 12.3 g/dL (12.0-16.0); IMMATURE GRAN # 0.13 x10^3u/L (0.00-0.03); IMMATURE GRAN % 1.5 % (0.00-0.4); Lymphocyte (Absolute #) 1.32 x10^3/uL (1.0-4.6); Lymphocytes % 14.9 % (24.0-44.0); Mean Cell Volume 94.3 fL (78-100); Mean Corpuscular Hemoglobin 30.7 pg (26-32); Mean Corpuscular Hgb Concent. 32.5 g/dL (32-36); Monocyte (Absolute #) 0.54 x10^3/uL (0.0-1.3); Monocytes % 6.1 % (0.0-12.0); Neutrophil % 76.2 % (36.0-66.0); Platelet Count 171 x10^3/uL (150-450); Red Blood Count 4.01 x10^6/uL (4.1-5.4); Red Cell Distribution Width 13.8 % (11.5-14.0); White Blood Count 8.8 x10^3/uL (4.0-10.5)
--- NOTE | 2022-09-08 17:22 | ERPHSYRPT ---
- History of Present Illness Time Seen by Provider: 09/08/22 17:20 Source: patient Exam Limitations: no limitations Patient Subjective Stated Complaint: here for recurent UTI, she is currently taking antiboitcs, no fevers, co some dizziness but states she is out of her diz zy pills Triage Nursing Assessment: pt alert, resp easy, skin w/d/p, has o2 2 l nc, no edema noted, moves all ext well Physician History: Patient is a 67-year-old female presents to our ED for evaluation of urinary symptomology. Patient states that she has had many urinary tract infections in the past. Patient has been treated with outpatient therapy. Patient was most recently seen in our ED last week. Patient was treated with Augmentin. And spite of her antibiotic therapy course patient continues to experience significant symptomology. Patient complains of tenderness in the suprapubic region. No systemic manifestations. No nausea vomiting or diarrhea. No rash. No fever. Symptoms are moderate in intensity. Review of microbiology from last week reveals patient is resistant to all but vancomycin. Therefore patient will require admission for IV vancomycin. Timing/Duration: week(s) Severity: moderate (1 week) Modifying Factors: Improves With: nothing Associated Symptoms: denies symptoms Allergies/Adverse Reactions: sumatriptan [From Imitrex] Allergy (Intermediate, Verified 08/25/22 12:45) Rash codeine Allergy (Mild, Verified 08/25/22 12:45) Rash MAKES SICK nitrofurantoin [From Macrobid] Allergy (Unknown, Verified 08/25/22 12:45) sulfamethoxazole [From Bactrim] Allergy (Unknown, Verified 08/25/22 12:45) trimethoprim [From Bactrim] Allergy (Unknown, Verified 08/25/22 12:45) sumatriptan succinate [From Imitrex] Allergy (Verified 08/25/22 12:45) morphine Adverse Reaction (Severe, Verified 08/25/22 12:45) Headache MIGRAINES fentanyl Adverse Reaction (Intermediate, Verified 08/25/22 12:45) Headache hydrocodone bitartrate [From Vicodin] Adverse Reaction (Mild, Verified 08/25/22 12:45) Vomiting hydromorphone [From Dilaudid] Adverse Reaction (Mild, Verified 08/25/22 12:45) pt states makes heache worse. Home Medications: ALPRAZolam 1 MG [Xanax 1 mg] 2 mg PO HS 02/17/13 [History] Cetirizine HCl/Pseudoephedrine [Zyrtec-D Tablet] 1 each PO DAILY 02/03/16 [History] Aspirin 81 mg PO DAILY 09/11/16 [History] Levothyroxine Sodium 50 Mcg [Synthroid 50 Mcg] 50 mcg PO DAILY 07/06/17 [History] Linaclotide [Linzess] 290 mcg PO DAILY 10/07/17 [History] Dexlansoprazole [Dexilant] 60 mg PO DAILY 01/21/20 [History] Albuterol 2.5 mg/3 ml Neb [Proventil 2.5 mg/3 ml Neb] 2.5 mg IH QID 07/23/20 [History] Magnesium Oxide 400 mg [Mag-Ox 400] 400 mg PO TID 09/29/21 [History] dilTIAZem HCl [Diltiazem 24Hr ER (Cd)] 120 mg PO DAILY 09/29/21 [History] Omeprazole/Sodium Bicarbonate [Omeprazole-Bicarb 40-1,100 Cap] 1 cap PO DAILY 01/18/22 [History] Promethazine HCl 25 mg [Phenergan 25 mg] 25 mg PO BIDPRN PRN 01/18/22 [History] Sodium Bicarbonate 1 ea PO BID 05/01/22 [History] Apixaban [Eliquis] 5 mg PO BID 07/02/22 [History] Fluticasone/Umeclidin/Vilanter [Trelegy Ellipta 200-62.5-25] 1 each IH DAILY 07/02/22 [History] Prucalopride Succinate [Motegrity] 1 mg PO DAILY 07/02/22 [History] Rizatriptan Benzoate [Maxalt] 10 mg PO DAILY PRN 07/02/22 [History] Itraconazole 200 mg PO DAILY 07/11/22 [History] Cefdinir 1 cap PO BID 08/03/22 [History] Hx Tetanus, Diphtheria Vaccination/Date Given: No Hx Influenza Vaccination/Date Given: Yes Hx Pneumococcal Vaccination/Date Given: Yes Immunizations Up to Date: Yes Travel Risk - International Travel Have you traveled outside of the country in past 3 weeks: No - Coronavirus Screening Are you exhibiting any of the following symptoms?: No Close contact with a COVID-19 positive Pt in past 14-21 Days: No - Vaccine Status Have you recieved a 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: Yes Code Number Stamper: Unknown - Vaccination Dates Dates if Unknown: ? - Review of Systems Constitutional: No Symptoms, No Fever, No Chills Eyes: No Symptoms Ears, Nose, & Throat: No Symptoms Respiratory: No Symptoms, No Cough, No Dyspnea Cardiac: No Symptoms, No Chest Pain, No Edema, No Syncope Abdominal/Gastrointestinal: No Symptoms, No Abdominal Pain, No Nausea, No Vomiting, No Diarrhea Genitourinary Symptoms: No Dysuria Musculoskeletal: No Symptoms, No Back Pain, No Neck Pain Skin: No Symptoms, No Rash Neurological: No Symptoms, No Dizziness, No Focal Weakness, No Sensory Changes Psychological: No Symptoms Endocrine: No Symptoms Hematologic/Lymphatic: No Symptoms Immunological/Allergic: No Symptoms All Other Systems: Reviewed and Negative - Past Medical History Pertinent Past Medical History: Yes Neurological History: Migraines ENT History: Cataracts Cardiac History: No Pertinent History Respiratory History: Bronchitis, COPD, Pulmonary Embolism Endocrine Medical History: Hypothyroidism Musculoskeletal History: Osteoarthritis GI Medical History: GERD, Other History: Other Psycho-Social History: Anxiety, Panic Disorder Female Reproductive Disorders: No Pertinent History Other Medical History: frequent uti's, chronic pseudo obstruction, blood clot - Past Surgical History Past Surgical History: Yes Neuro Surgical History: No Pertinent History Cardiac: No Pertinent History Respiratory: No Pertinent History Gastrointestinal: Cholecystectomy, Other Genitourinary: No Pertinent History Musculoskeletal: No Pertinent History Female Surgical History: No Pertinent History Other Surgical History: all of large intestine removed and most of small intestines removed. - Social History Smoking Status: Never smoker Exposure to second hand smoke: No Alcohol Use: None Drug Use: none Patient Lives Alone: Yes Significant Family History: no pertinent family hx - Nursing Vital Signs Nursing Vital Signs: Initial Vital Signs Blood Pressure 101/86 09/08/22 14:18 O2 Sat by Pulse Oximetry 88 L 09/08/22 14:18 Pain Scale Pain Intensity 3 - Physical Exam General Appearance: no apparent distress, alert Eye Exam: PERRL/EOMI, eyes nml inspection Ears, Nose, Throat Exam: normal ENT inspection, TMs normal, pharynx normal, moist mucous membranes Neck Exam: normal inspection, non-tender, supple, full range of motion Respiratory Exam: normal breath sounds, lungs clear, airway intact, No respiratory distress Cardiovascular Exam: regular rate/rhythm, normal heart sounds, normal peripheral pulses Gastrointestinal/Abdomen Exam: soft, normal bowel sounds, No tenderness, No mass Back Exam: normal inspection, normal range of motion, No CVA tenderness, No vertebral tenderness Extremity Exam: normal inspection, normal range of motion, pelvis stable Neurologic Exam: alert, 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, cooperative, normal mood/affect, nml cerebellar function, nml station & gait, sensation nml, No motor deficits Skin Exam: normal color, warm, dry, No rash Lymphatic Exam: No adenopathy SpO2 Interpretation: normal SpO2: 97 O2 Delivery: Room Air - Course Nursing assessment & vital signs reviewed: Yes Ordered Tests: Active Orders 24 hr Category Date Time Status Computer Customer Support Specialist STAT Care 09/08/22 16:48 Active IV Insertion STAT Care 09/08/22 16:48 Active Pulse Oximetry (ED) STAT Care 09/08/22 16:48 Active CBC W DIFF Stat Lab 09/08/22 17:10 Completed CMP Stat Lab 09/08/22 17:10 Results CULTURE,URINE Stat Lab 09/08/22 14:25 Received Lactic Acid Stat Lab 09/08/22 17:08 Completed UA W/RFX UR CULTURE Stat Lab 09/08/22 14:25 Completed Medication Summary Generic Name Dose Route Start Last Admin Trade Name Freq PRN Reason Stop Dose Admin Sodium Chloride 1,000 mls @ 100 mls/hr 09/08/22 17:00 09/08/22 17:14 Sodium Chloride 0.9% 1000 Ml IV 10/08/22 16:59 100 mls/hr .Q10H JENNIFER Administration Vancomycin HCl 1 gm in 200 mls @ 125 mls/hr 09/08/22 16:49 09/08/22 17:18 Vancomycin 1 Gram/200 Ml Bag IV 09/08/22 18:24 125 ml/hr STAT ONE 125 mls/hr Administration Discontinued Medications Generic Name Dose Route Start Last Admin Trade Name Freq PRN Reason Stop Dose Admin Ceftriaxone Sodium 1,000 mg 09/08/22 16:39 09/08/22 16:46 Ceftriaxone Sodium 1000 Mg Inj Vial IM 09/08/22 16:40 Not Given STAT ONE Ceftriaxone Sodium Confirm 09/08/22 16:41 Ceftriaxone Sodium 1000 Mg Inj Vial Administered 09/08/22 16:42 Dose 1,000 mg .ROUTE .STK-MED ONE Vancomycin HCl Confirm 09/08/22 17:12 Vancomycin 1 Gram/200 Ml Bag Administered 09/08/22 17:13 Dose 1 gm in 200 mls @ ud IV .STK-MED ONE Magnesium Hydroxide 30 ml 09/08/22 16:57 09/08/22 16:59 Magnesium Hydroxide 30 Ml Udcup PO 09/08/22 16:58 30 ml STAT ONE Administration Magnesium Hydroxide Confirm 09/08/22 16:58 Magnesium Hydroxide 30 Ml Udcup Administered 09/08/22 16:59 Dose 30 ml .ROUTE .STK-MED ONE Lab/Rad Data: Laboratory Result Diagrams 09/08/22 17:10 09/08/22 17:10 Laboratory Results 09/08/22 09/08/22 09/08/22 Range/Units 17:10 17:10 17:08 WBC 8.8 (4.0-10.5) x10^3/uL RBC 4.01 L (4.1-5.4) x10^6/uL Hgb 12.3 (12.0-16.0) g/dL Hct 37.8 (35-47) % MCV 94.3 (78-100) fL MCH 30.7 (26-32) pg MCHC 32.5 (32-36) g/dL RDW 13.8 (11.5-14.0) % Plt Count 171 (150-450) x10^3/uL MPV 10.0 (7.5-11.0) fL Gran % 76.2 H (36.0-66.0) % Immature Gran % (Auto) 1.5 H (0.00-0.4) % Nucleat RBC Rel Count 0.0 (0.00-0.1) % Eos # (Auto) 0.05 (0-0.5) x10^3/uL Immature Gran # (Auto) 0.13 H (0.00-0.03) x10^3u/L Absolute Lymphs (auto) 1.32 (1.0-4.6) x10^3/uL Absolute Monos (auto) 0.54 (0.0-1.3) x10^3/uL Absolute Nucleated RBC 0.00 (0.00-0.01) x10^3u/L Lymphocytes % 14.9 L (24.0-44.0) % Monocytes % 6.1 (0.0-12.0) % Eosinophils % 0.6 (0.00-5.0) % Basophils % 0.7 (0.0-0.4) % Absolute Granulocytes 6.74 (1.4-6.9) x10^3/uL Basophils # 0.06 (0-0.4) x10^3/uL Sodium 136 L (137-145) mmol/L Potassium 4.5 (3.5-5.1) mmol/L Chloride 103 (98-107) mmol/L Carbon Dioxide 25 (22-30) mmol/L Anion Gap 12.6 (5-15) MEQ/L BUN 39 H (7-17) mg/dL Creatinine Pending Estimated GFR Pending Glucose 90 (74-106) mg/dL Lactic Acid 1.3 (0.4-2.0) Calcium 8.2 L (8.4-10.2) mg/dL Total Bilirubin 0.80 (0.2-1.3) mg/dL AST 34 (14-36) U/L ALT 34 (0-35) U/L Alkaline Phosphatase 99 (38-126) U/L Serum Total Protein 6.9 (6.3-8.2) g/dL Albumin 3.8 (3.5-5.0) g/dL Urine Color (Yellow) Urine Appearance (Clear) Urine pH (4.6-8.0) Ur Specific Irving (1.005-1.030) Urine Protein (Negative) Urine Glucose (UA) (Negative) mg/dL Urine Ketones (Negative) Urine Blood (Negative) Urine Nitrite (Negative) Urine Bilirubin (Negative) Urine Urobilinogen (0.2) mg/dL Ur Leukocyte Esterase (Negative) U Hyaline Cast (Auto) (0-2) /LPF Urine Microscopic RBC (0-5) /HPF Urine Microscopic WBC (0-5) /HPF Ur Epithelial Cells (None Seen) /HPF Urine Bacteria (None Seen) /HPF Urine Yeast (Budding) (None Seen) /HPF Urine Culture Reflexed (NO) 09/08/ Range/Units 14:25 WBC (4.0-10.5) x10^3/uL RBC (4.1-5.4) x10^6/uL Hgb (12.0-16.0) g/dL Hct (35-47) % MCV (78-100) fL MCH (26-32) pg MCHC (32-36) g/dL RDW (11.5-14.0) % Plt Count (150-450) x10^3/uL MPV (7.5-11.0) fL Gran % (36.0-66.0) % Immature Gran % (Auto) (0.00-0.4) % Nucleat RBC Rel Count (0.00-0.1) % Eos # (Auto) (0-0.5) x10^3/uL Immature Gran # (Auto) (0.00-0.03) x10^3u/L Absolute Lymphs (auto) (1.0-4.6) x10^3/uL Absolute Monos (auto) (0.0-1.3) x10^3/uL Absolute Nucleated RBC (0.00-0.01) x10^3u/L Lymphocytes % (24.0-44.0) % Monocytes % (0.0-12.0) % Eosinophils % (0.00-5.0) % Basophils % (0.0-0.4) % Absolute Granulocytes (1.4-6.9) x10^3/uL Basophils # (0-0.4) x10^3/uL Sodium (137-145) mmol/L Potassium (3.5-5.1) mmol/L Chloride (98-107) mmol/L Carbon Dioxide (22-30) mmol/L Anion Gap (5-15) MEQ/L BUN (7-17) mg/dL Creatinine Estimated GFR Glucose (74-106) mg/dL Lactic Acid (0.4-2.0) Calcium (8.4-10.2) mg/dL Total Bilirubin (0.2-1.3) mg/dL AST (14-36) U/L ALT (0-35) U/L Alkaline Phosphatase (38-126) U/L Serum Total Protein (6.3-8.2) g/dL Albumin (3.5-5.0) g/dL Urine Color Dark Yellow A (Yellow) Urine Appearance Cloudy A (Clear) Urine pH 5.5 (4.6-8.0) Ur Specific Irving >=1.030 A (1.005-1.030) Urine Protein Trace A (Negative) Urine Glucose (UA) Negative (Negative) mg/dL Urine Ketones Negative (Negative) Urine Blood Negative (Negative) Urine Nitrite Negative (Negative) Urine Bilirubin Small A (Negative) Urine Urobilinogen 1.0 A (0.2) mg/dL Ur Leukocyte Esterase Moderate A (Negative) U Hyaline Cast (Auto) None Seen (0-2) /LPF Urine Microscopic RBC 3-5 (0-5) /HPF Urine Microscopic WBC 21-50 A (0-5) /HPF Ur Epithelial Cells Few (None Seen) /HPF Urine Bacteria Moderate A (None Seen) /HPF Urine Yeast (Budding) Rare A (None Seen) /HPF Urine Culture Reflexed YES (NO) - Progress Progress: improved Progress Note: Case is discussed with hospitalist who accepts full admission. Dr. Tay request admit patient as a full admit due to failed outpatient antibiotic therapy. 09/08/22 17:17 Patient is a 67-year-old female presents to our ED for evaluation of urinary symptomology. No systemic manifestations. Patient has a history of recurrent urinary tract infections. Most recently patient has been on Keflex and Augmentin. Patient was in our ED for the same. Patient's urine microbiology reveals resistant to all medication except vancomycin. In light of these findings patient will require admission for vancomycin therapy. Test ordered include CBC CMP which are essentially unremarkable. No leukocytosis. Lactic acid within normal limits. Urinalysis reveals urinary tract infection. Patient received magnesium hydroxide per her request for bowel movement. Normal saline administered. Vancomycin administered per microbiology results. Plan of care discussed with patient. She agrees to admission [facility] for further evaluation and treatment. Patient declined pain medication. Patient voices no other complaints or concerns at this time. Portions of this note were created with voice recognition technology. There may be grammatical, spelling, punctuation or sound alike errors Complexity of problems addressed as moderate acute complicated No critical care time Complexity data reviewed and analyzed is extensive. Test ordered. Test reviewed and analyzed. Clinical correlation made between test findings and H&P. In light of the findings patient will require hospitalization for vancomycin IV antibiotic therapy to treat otherwise resistant urinary tract infection. Plan of care discussed with admitting hospitalist Risk of complication and or risk of morbidity/mortality of patient management is high. Patient will require hospitalization for further evaluation and treatment. Vital stable. Plan of care established for shared decision making. Patient agrees to admission at [facility] for further evaluation and treatment. Portions of this note were created with voice recognition technology. There may be grammatical, spelling, punctuation or sound alike errors 09/08/22 17:41 Counseled pt/family regarding: lab results, diagnosis - Departure Departure Disposition: In-patient Admission Clinical Impression: Resistant urinary tract infection Condition: Stable Critical Care Time: No Referrals: LLUVIA CHILDERS, [Primary Care Provider] - Follow up/PCP as directed Additional Instructions: Discharge/Care Plan GEOVANNY FREY was seen on 09/08/22 in the Emergency Room. The patient was counseled regarding Diagnosis,Lab results, Imaging studies, need for follow up and when to return to the Emergency Room. Prescriptions given: Discharge Note I have spoken with the patient and/or caregivers. I have explained the patient's condition, diagnosis and treatment plan based on the information available to me at this time. I have answered the patient's and/or caregiver's questions and addressed any concerns. The patient and/or caregivers have as good understanding of the patient's diagnosis, condition and treatment plan as can be expected at this point. The vital signs have been stable. The patient's condition is stable and appropriate for discharge from the emergency department. The patient will pursue further outpatient evaluation with the primary care physician or other designated or consulting physician as outlined in the discharge instructions. The patient and/or caregivers are agreeable to this plan of care and follow-up instructions have been explained in detail. The patient and/or caregivers have received these instruction. The patient/and or caregivers are aware that any significant change in condition or worsening of symptoms should prompt an immediate return to this or the closest emergency department or call 911.
[2022-09-08 17:32] LABS: ALBUMIN 3.8 g/dL (3.5-5.0); ANION GAP 12.6 MEQ/L (5-15); BILIRUBIN,TOTAL 0.8 mg/dL (0.2-1.3); Calcium 8.2 mg/dL (8.4-10.2); Potassium 4.5 mmol/L (3.5-5.1); Total Protein 6.9 g/dL (6.3-8.2)
[2022-09-08 18:17] LABS: Creatinine 1 1.78 mg/dL (0.52-1.04); EST GLOMERULAR FILTRATION RATE 30.2 ML/MIN
[2022-09-08] MEDS ORDERED: PROVENTIL 2.5 MG/3 ML NEB IH ONE (18:23)
[2022-09-08] MEDS: PROVENTIL 2.5 MG/3 ML NEB IH SCH (18:27)
[2022-09-08] MEDS ORDERED: Docusate Sodium 100 MG PO PRN (18:58)
[2022-09-08] MEDS ORDERED: HUMULIN R SQ PRN (18:58)
[2022-09-08] MEDS ORDERED: Zofran 4 MG/2 ML VIAL IV PRN (18:58)
[2022-09-08] MEDS ORDERED: TYLENOL 325 MG PO PRN (18:58)
--- NOTE | 2022-09-08 19:10 | PCM.HP ---
History of Present Illness - Chief Complaint Chief Complaint: Resistant urinary tract infection Date: 09/08/22 History of Present Illness: is a 67 year old female who presented to the hospital with dizziness and suprapubic abdominal pain. The patient has a known history of frequent urinary tract infections and has in fact recently required IV antibiotics. The patient had recently presented with lower urinary tract symptoms and treated with outpatient antibiotics (Keflex) but failed outpatient therapy. She presented to the ED with persistent symptoms. She denies missing any Keflex doses. The patient denies fevers, chills and gross hematuria. She denies any nausea or vomiting. In the ED the patient was noted to have evidence of persisent UTI and a review of a recent urine culture reveals growth of E. faecalis sensitive only to vancomycin. - Review of Systems Constitutional: Fatigue Eyes: No Symptoms Ears, Nose, & Throat: No Symptoms Respiratory: No Symptoms Cardiac: No Symptoms Abdominal/Gastrointestinal: Abdominal Pain Genitourinary Symptoms: Dysuria, Frequency, Urgency Musculoskeletal: No Symptoms Skin: No Symptoms Neurological: Dizziness Endocrine: No Symptoms Hematologic/Lymphatic: No Symptoms Immunological/Allergic: No Symptoms All Other Systems: Reviewed and Negative Medications & Allergies Home Medications: Home Medication List ALPRAZolam 1 MG [Xanax 1 mg] 2 [place] [address]/17/13 [History Confirmed 09/08/22] Cetirizine HCl/Pseudoephedrine [Zyrtec-D Tablet] 1 each PO 02/03/16 [History Confirmed 09/08/22] Aspirin 81 mg PO 09/11/16 [History Confirmed 09/08/22] Levothyroxine Sodium 50 Mcg [Synthroid 50 Mcg] 50 mcg PO 07/06/17 [History Confirmed 09/08/22] Linaclotide [Linzess] 290 mcg PO 10/07/17 [History Confirmed 09/08/22] Dexlansoprazole [Dexilant] 60 mg PO 01/21/20 [History Confirmed 09/08/22] Albuterol 2.5 mg/3 ml Neb [Proventil 2.5 mg/3 ml Neb] 2.5 mg IH QID 07/23/20 [History Confirmed 09/08/22] dilTIAZem HCl [Diltiazem 24Hr ER (Cd)] 120 mg PO 09/29/21 [History Confirmed 09/08/22] Omeprazole/Sodium Bicarbonate [Omeprazole-Bicarb 40-1,100 Cap] 1 cap PO 01/18/22 [History Confirmed 09/08/22] Promethazine HCl 25 mg [Phenergan 25 mg] 25 mg PO BIDPRN PRN 01/18/22 [ History Confirmed 09/08/22] Apixaban [Eliquis] 5 mg PO ,07/02/22 [History Confirmed 09/08/22] Fluticasone/Umeclidin/Vilanter [Trelegy Ellipta 200-62.5-25] 1 each IH 07/02/22 [History Confirmed 09/08/22] Prucalopride Succinate [Motegrity] 1 mg PO 07/02/22 [History Confirmed 09/08/22] Rizatriptan Benzoate [Maxalt] 10 mg PO DAILY PRN 07/02/22 [History Confirmed 09/08/22] Cephalexin Mh 250 mg [Keflex 250 mg] 250 mg PO 09/08/22 [History Confirmed 09/08/22] Ferrous Sulfate 325 mg PO 09/08/22 [History Confirmed 09/08/22] Magnesium Hydroxide 30 ml [Milk of Magnesia 30 ml] 30 ml PO 09/08/22 [History Confirmed 09/08/22] Magnesium Hydroxide 30 ml [Milk of Magnesia 30 ml] 60 ml PO 09/08/22 [History Confirmed 09/08/22] Allergies/Adverse Reactions: Allergies Allergy/AdvReac Type Severity Reaction Status Date / Time sumatriptan [From Imitrex] Allergy Intermediate Rash Verified 08/25/22 12:45 codeine Allergy Mild Rash Verified 08/25/22 12:45 nitrofurantoin Allergy Unknown Verified 08/25/22 12:45 [From Macrobid] sulfamethoxazole Allergy Unknown Verified 08/25/22 12:45 [From Bactrim] trimethoprim [From Bactrim] Allergy Unknown Verified 08/25/22 12:45 sumatriptan succinate Allergy Verified 08/25/22 12:45 [From Imitrex] morphine AdvReac Severe Headache Verified 08/25/22 12:45 fentanyl AdvReac Intermediate Headache Verified 08/25/22 12:45 hydrocodone bitartrate AdvReac Mild Vomiting Verified 08/25/22 12:45 [From Vicodin] hydromorphone [From Dilaudid] AdvReac Mild pt states Verified 08/25/22 12:45 makes heache worse. - Past Medical History Past Medical History: Yes Neurological History: Migraines ENT History: Cataracts Cardiac History: No Pertinent History Respiratory History: Bronchitis, COPD, Pulmonary Embolism Endocrine Medical History: Hypothyroidism Musculoskelatal History: Osteoarthritis GI Medical History: GERD, Other History: Other Pyscho-Social History: Anxiety, Panic Disorder Reproductive Disorders: No Pertinent History Comment: frequent uti's, chronic pseudo obstruction, blood clot - Female History Are you now?: No - Past Surgical History Past Surgical History: Yes Neuro Surgical History: No Pertinent History Cardiac History: No Pertinent History Respiratory Surgery: No Pertinent History GI Surgical History: Cholecystectomy, Other Genitourinary Surgical Hx: No Pertinent History Musculskeletal Surgical Hx: No Pertinent History Female Surgical History: No Pertinent History Other Surgical History: all of large intestine removed and most of small intestines removed. - Social History Smoking Status: Former smoker Exposure to second hand smoke: No Alcohol: None Drug Use: none Significant Family History: no pertinent family hx - Physical Exam Vital Signs: Vital Signs - 24 hr Temp Pulse Resp BP BP Pulse Ox 09/08/22 18:26 80 16 96 09/08/22 18:21 97.2 F 84 18 101/86 97 09/08/22 18:00 97 09/08/22 17:47 97 09/08/22 17:06 97 09/08/22 17:01 84 126/74 99 09/08/22 16:01 67/57 95 09/08/22 15:01 90 75/39 92 L 09/08/22 14:29 97.2 F 101 H 18 101/86 95 09/08/22 14:18 101/86 88 L General Appearance: no apparent distress, alert Neurologic Exam: alert, 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, cooperative, 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, normal mood/affect, nml cerebellar function Eye Exam: PERRL/EOMI, eyes nml inspection Ears, Nose, Throat Exam: normal ENT inspection Neck Exam: normal inspection, non-tender, supple, full range of motion Respiratory Exam: normal breath sounds, lungs clear Cardiovascular Exam: regular rate/rhythm, normal heart sounds Gastrointestinal/Abdomen Exam: soft, tenderness (suprapubic tenderness noted without rebound, guarding, or rigidity) Back Exam: normal range of motion Extremity Exam: normal inspection, normal range of motion Skin Exam: normal color Results - Labs Lab/Micro Results: Lab Results-Last 24 Hours 09/08/22 09/08/22 09/08/22 Range/Units 14:25 17:08 17:10 WBC 8.8 (4.0-10.5) x10^3/uL RBC 4.01 L (4.1-5.4) x10^6/uL Hgb 12.3 (12.0-16.0) g/dL Hct 37.8 (35-47) % MCV 94.3 (78-100) fL MCH 30.7 (26-32) pg MCHC 32.5 (32-36) g/dL RDW 13.8 (11.5-14.0) % Plt Count 171 (150-450) x10^3/uL MPV 10.0 (7.5-11.0) fL Gran % 76.2 H (36.0-66.0) % Immature Gran % (Auto) 1.5 H (0.00-0.4) % Nucleat RBC Rel Count 0.0 (0.00-0.1) % Eos # (Auto) 0.05 (0-0.5) x10^3/uL Immature Gran # (Auto) 0.13 H (0.00-0.03) x10^3u/L Absolute Lymphs (auto) 1.32 (1.0-4.6) x10^3/uL Absolute Monos (auto) 0.54 (0.0-1.3) x10^3/uL Absolute Nucleated RBC 0.00 (0.00-0.01) x10^3u/L Lymphocytes % 14.9 L (24.0-44.0) % Monocytes % 6.1 (0.0-12.0) % Eosinophils % 0.6 (0.00-5.0) % Basophils % 0.7 (0.0-0.4) % Absolute Granulocytes 6.74 (1.4-6.9) x10^3/uL Basophils # 0.06 (0-0.4) x10^3/uL Sodium (137-145) mmol/L Potassium (3.5-5.1) mmol/L Chloride (98-107) mmol/L Carbon Dioxide (22-30) mmol/L Anion Gap (5-15) MEQ/L BUN (7-17) mg/dL Creatinine (0.52-1.04) mg/dL Estimated GFR ML/MIN Glucose (74-106) mg/dL Lactic Acid 1.3 (0.4-2.0) Calcium (8.4-10.2) mg/dL Total Bilirubin (0.2-1.3) mg/dL AST (14-36) U/L ALT (0-35) U/L Alkaline Phosphatase (38-126) U/L Serum Total Protein (6.3-8.2) g/dL Albumin (3.5-5.0) g/dL Urine Color Dark Yellow A (Yellow) Urine Appearance Cloudy A (Clear) Urine pH 5.5 (4.6-8.0) Ur Specific [place] >=1.030 A (1.005-1.030) Urine Protein Trace A (Negative) Urine Glucose (UA) Negative (Negative) mg/dL Urine Ketones Negative (Negative) Urine Blood Negative (Negative) Urine Nitrite Negative (Negative) Urine Bilirubin Small A (Negative) Urine Urobilinogen 1.0 A (0.2) mg/dL Ur Leukocyte Esterase Moderate A (Negative) U Hyaline Cast (Auto) None Seen (0-2) /LPF Urine Microscopic RBC 3-5 (0-5) /HPF Urine Microscopic WBC 21-50 A (0-5) /HPF Ur Epithelial Cells Few (None Seen) /HPF Urine Bacteria Moderate A (None Seen) /HPF Urine Yeast (Budding) Rare A (None Seen) /HPF Urine Culture Reflexed YES (NO) 09/08/22 Range/Units 17:10 WBC (4.0-10.5) x10^3/uL RBC (4.1-5.4) x10^6/uL Hgb (12.0-16.0) g/dL Hct (35-47) % MCV (78-100) fL MCH (26-32) pg MCHC (32-36) g/dL RDW (11.5-14.0) % Plt Count (150-450) x10^3/uL MPV (7.5-11.0) fL Gran % (36.0-66.0) % Immature Gran % (Auto) (0.00-0.4) % Nucleat RBC Rel Count (0.00-0.1) % Eos # (Auto) (0-0.5) x10^3/uL Immature Gran # (Auto) (0.00-0.03) x10^3u/L Absolute Lymphs (auto) (1.0-4.6) x10^3/uL Absolute Monos (auto) (0.0-1.3) x10^3/uL Absolute Nucleated RBC (0.00-0.01) x10^3u/L Lymphocytes % (24.0-44.0) % Monocytes % (0.0-12.0) % Eosinophils % (0.00-5.0) % Basophils % (0.0-0.4) % Absolute Granulocytes (1.4-6.9) x10^3/uL Basophils # (0-0.4) x10^3/uL Sodium 136 L (137-145) mmol/L Potassium 4.5 (3.5-5.1) mmol/L Chloride 103 (98-107) mmol/L Carbon Dioxide 25 (22-30) mmol/L Anion Gap 12.6 (5-15) MEQ/L BUN 39 H (7-17) mg/dL Creatinine 1.78 H (0.52-1.04) mg/dL Estimated GFR 30.2 ML/MIN Glucose 90 (74-106) mg/dL Lactic Acid (0.4-2.0) Calcium 8.2 L (8.4-10.2) mg/dL Total Bilirubin 0.80 (0.2-1.3) mg/dL AST 34 (14-36) U/L ALT 34 (0-35) U/L Alkaline Phosphatase 99 (38-126) U/L Serum Total Protein 6.9 (6.3-8.2) g/dL Albumin 3.8 (3.5-5.0) g/dL Urine Color (Yellow) Urine Appearance (Clear) Urine pH (4.6-8.0) Ur Specific [place] (1.005-1.030) Urine Protein (Negative) Urine Glucose (UA) (Negative) mg/dL Urine Ketones (Negative) Urine Blood (Negative) Urine Nitrite (Negative) Urine Bilirubin (Negative) Urine Urobilinogen (0.2) mg/dL Ur Leukocyte Esterase (Negative) U Hyaline Cast (Auto) (0-2) /LPF Urine Microscopic RBC (0-5) /HPF Urine Microscopic WBC (0-5) /HPF Ur Epithelial Cells (None Seen) /HPF Urine Bacteria (None Seen) /HPF Urine Yeast (Budding) (None Seen) /HPF Urine Culture Reflexed (NO) - Other Procedures and Tests Respiratory Therapy 09/08/22 18:26 Oxygen NASAL CANNULA 3 lpm Respiratory Therapy Assessment DAILY Assessment/Plan (1) Acute UTI Current Visit: No Status: Acute Assessment & Plan: IV Vancomycin via port. Pharmacy dosing. Will try to contact Dr. Perry and request CM to assist with arrangement for outpatient infusion center administration of IV Vancomycin x 7 day course via port. Follows with Dr. Licea (Urology). Code(s): N39.0 - URINARY TRACT INFECTION, SITE NOT SPECIFIED (2) AURORA (acute kidney injury) Current Visit: No Status: Acute Assessment & Plan: AURORA on CKD noted. Creatinine ranges from 1.0 to 1.7. Will administer IV fluids. Follows with Dr. Ambrosio. Pharmacy consult for renal dosing. Code(s): N17.9 - ACUTE KIDNEY FAILURE, UNSPECIFIED (3) Dizziness Current Visit: No Status: Acute Assessment & Plan: Possible component of volume depletion. IV fluids. Monitor. PT eval. Code(s): R42 - DIZZINESS AND GIDDINESS Telemedicine Encounter - Telemedicine Encounter Telemedicine Encounter: The entirety of this encounter was performed via Telemedicine"
[2022-09-08] MEDS ORDERED: PHENERGAN 25 MG PO ONE (20:00)
[2022-09-08] MEDS ORDERED: XANAX 1 MG PO ONE ×2 (20:00)
[2022-09-08] MEDS ORDERED: ELIQUIS 2.5 MG TABLET PO ONE (20:00)
[2022-09-08] MEDS ORDERED: Protonix 20MG Tablet PO ONE (20:00)
[2022-09-09] MEDS: Sodium Chloride 0.9% 1000 ML 1,000 ML IV SCH ×3 (02:18→21:48)
[2022-09-09 04:52] LABS: ALBUMIN 3.1 g/dL (3.5-5.0); ANION GAP 9.3 MEQ/L (5-15); BILIRUBIN,TOTAL 0.7 mg/dL (0.2-1.3); Calcium 7.6 mg/dL (8.4-10.2); Creatinine 1 1.63 mg/dL (0.52-1.04); EST GLOMERULAR FILTRATION RATE 33.4 ML/MIN; Potassium 4.2 mmol/L (3.5-5.1); Total Protein 5.8 g/dL (6.3-8.2)
[2022-09-09 04:53] LABS: Absolute Neutrophil Ct (ANC) 4.37 x10^3/uL (1.4-6.9); BASOPHIL % 0.8 % (0.0-0.4); Basophil (Absolute #) 0.05 x10^3/uL (0-0.4); Eosinophil (Absolute #) 0.06 x10^3/uL (0-0.5); Hematocrit 33.2 % (35-47); Hemoglobin 10.7 g/dL (12.0-16.0); IMMATURE GRAN # 0.06 x10^3u/L (0.00-0.03); Lymphocyte (Absolute #) 1.13 x10^3/uL (1.0-4.6); Lymphocytes % 18.8 % (24.0-44.0); Mean Cell Volume 94.1 fL (78-100); Mean Corpuscular Hemoglobin 30.3 pg (26-32); Mean Corpuscular Hgb Concent. 32.2 g/dL (32-36); Mean Platelet Volume 10.1 fL (7.5-11.0); Monocyte (Absolute #) 0.34 x10^3/uL (0.0-1.3); Monocytes % 5.7 % (0.0-12.0); Neutrophil % 72.7 % (36.0-66.0); Platelet Count 166 x10^3/uL (150-450); Red Blood Count 3.53 x10^6/uL (4.1-5.4); Red Cell Distribution Width 14.1 % (11.5-14.0)
[2022-09-09] MEDS ORDERED: PATIENT OWN MEDICATION IH SCH (07:00)
[2022-09-09] MEDS ORDERED: PHARMACY DOSING REQUIRED: VANCOMYCIN IV STA (07:01)
[2022-09-09] MEDS ORDERED: RIZATRIPTAN BENZOATE 10 MG PO PRN (07:17)
[2022-09-09] MEDS: PROVENTIL 2.5 MG/3 ML NEB IH SCH ×3 (07:37→19:01)
[2022-09-09] MEDS: Acidophilus TABLET PO SCH (07:42)
[2022-09-09] MEDS: SYNTHROID 50 MCG PO SCH (07:42)
[2022-09-09] MEDS: Protonix 40MG Tablet PO SCH (07:42)
[2022-09-09] MEDS: ELIQUIS 2.5 MG TABLET PO SCH ×2 (07:42→19:21)
[2022-09-09] MEDS: CLARITIN-D 24HR TABLET PO SCH (07:42)
[2022-09-09] MEDS: ECOTRIN 81 MG PO SCH (07:42)
[2022-09-09] MEDS: Cardizem CD PO SCH (07:42)
[2022-09-09] MEDS ORDERED: MEDICATION INTERVENTION MC SCH ×3 (07:45)
[2022-09-09] MEDS: MILK OF MAGNESIA 30 ML PO SCH (07:46)
[2022-09-09] MEDS ORDERED: FEOSOL 325 MG PO SCH (08:00)
[2022-09-09] MEDS: PATIENT OWN MEDICATION IH SCH (09:37)
[2022-09-09] MEDS: PHENERGAN 25 MG PO PRN ×3 (11:36→23:53)
--- NOTE | 2022-09-09 13:47 | PCM.NOTE ---
Date and Time: 09/09/22 1343 Subjective Assessment: Patient had nausea and one episode of nonbiilious nonbloody emesis. 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, normal mood/affect, nml cerebellar function Skin Exam: normal color Eye Exam: PERRL, EOMI, eyes nml inspection Ears, Nose, Throat Exam: normal ENT inspection Neck Exam: normal inspection, non-tender, supple, full range of motion Respiratory Exam: normal breath sounds, lungs clear Cardiovascular Exam: regular rate/rhythm, normal heart sounds Gastrointestinal/Abdomen Exam: soft, normal bowel sounds Extremity Exam: normal inspection, normal range of motion Back Exam: normal range of motion OBJECTIVE DATA Vital Signs: Vital Signs - 24 hr Temp Pulse Resp BP BP Pulse Ox 09/09/22 11:34 97.9 F 70 16 84/48 97 09/09/22 07:39 77 16 95 09/09/22 07:27 97.9 F 76 16 89/54 92 L 09/09/22 03:55 98.1 F 75 20 140/60 90 L 09/09/22 00:00 97.9 F 83 20 105/57 90 L 09/08/22 20:12 98.2 F 89 21 138/58 92 L 09/08/22 18:26 80 16 96 09/08/22 18:21 97.2 F 84 18 101/86 97 09/08/22 18:00 97 09/08/22 17:47 97 09/08/22 17:06 97 09/08/22 17:01 84 126/74 99 09/08/22 16:01 67/57 95 09/08/22 15:01 90 75/39 92 L 09/08/22 14:29 97.2 F 101 H 18 101/86 95 09/08/22 14:18 101/86 88 L Pain Assessment - Last Documented Pain Intensity 0 Intake and Output: Intake & Output 09/07/22 09/08/22 09/09/22 09/10/22 11:59 11:59 11:59 11:59 Intake Total 480 380 Balance 480 380 Weight 80.739 kg Lab Results: Lab Results-Last 24 Hours 07/25/23 07/25/23 07/25/23 Range/Units 14:25 17:08 17:10 WBC 8.8 (4.0-10.5) x10^3/uL RBC 4.01 L (4.1-5.4) x10^6/uL Hgb 12.3 (12.0-16.0) g/dL Hct 37.8 (35-47) % MCV 94.3 (78-100) fL MCH 30.7 (26-32) pg MCHC 32.5 (32-36) g/dL RDW 13.8 (11.5-14.0) % Plt Count 171 (150-450) x10^3/uL MPV 10.0 (7.5-11.0) fL Gran % 76.2 H (36.0-66.0) % Immature Gran % (Auto) 1.5 H (0.00-0.4) % Nucleat RBC Rel Count 0.0 (0.00-0.1) % Eos # (Auto) 0.05 (0-0.5) x10^3/uL Immature Gran # (Auto) 0.13 H (0.00-0.03) x10^3u/L Absolute Lymphs (auto) 1.32 (1.0-4.6) x10^3/uL Absolute Monos (auto) 0.54 (0.0-1.3) x10^3/uL Absolute Nucleated RBC 0.00 (0.00-0.01) x10^3u/L Lymphocytes % 14.9 L (24.0-44.0) % Monocytes % 6.1 (0.0-12.0) % Eosinophils % 0.6 (0.00-5.0) % Basophils % 0.7 (0.0-0.4) % Absolute Granulocytes 6.74 (1.4-6.9) x10^3/uL Basophils # 0.06 (0-0.4) x10^3/uL Sodium (137-145) mmol/L Potassium (3.5-5.1) mmol/L Chloride (98-107) mmol/L Carbon Dioxide (22-30) mmol/L Anion Gap (5-15) MEQ/L BUN (7-17) mg/dL Creatinine (0.52-1.04) mg/dL Estimated GFR ML/MIN Glucose (74-106) mg/dL POC Glucometer (74 to 106) mg/dL Lactic Acid 1.3 (0.4-2.0) Calcium (8.4-10.2) mg/dL Total Bilirubin (0.2-1.3) mg/dL AST (14-36) U/L ALT (0-35) U/L Alkaline Phosphatase (38-126) U/L Serum Total Protein (6.3-8.2) g/dL Albumin (3.5-5.0) g/dL Urine Color Dark Yellow A (Yellow) Urine Appearance Cloudy A (Clear) Urine pH 5.5 (4.6-8.0) Ur Specific [place] >=1.030 A (1.005-1.030) Urine Protein Trace A (Negative) Urine Glucose (UA) Negative (Negative) mg/dL Urine Ketones Negative (Negative) Urine Blood Negative (Negative) Urine Nitrite Negative (Negative) Urine Bilirubin Small A (Negative) Urine Urobilinogen 1.0 A (0.2) mg/dL Ur Leukocyte Esterase Moderate A (Negative) U Hyaline Cast (Auto) None Seen (0-2) /LPF Urine Microscopic RBC 3-5 (0-5) /HPF Urine Microscopic WBC 21-50 A (0-5) /HPF Ur Epithelial Cells Few (None Seen) /HPF Urine Bacteria Moderate A (None Seen) /HPF Urine Yeast (Budding) Rare A (None Seen) /HPF Urine Culture Reflexed YES (NO) 09/08/22 09/08/22 09/09/22 Range/Units 17:10 20:41 04:33 WBC 6.0 (4.0-10.5) x10^3/uL RBC 3.53 L (4.1-5.4) x10^6/uL Hgb 10.7 L (12.0-16.0) g/dL Hct 33.2 L (35-47) % MCV 94.1 (78-100) fL MCH 30.3 (26-32) pg MCHC 32.2 (32-36) g/dL RDW 14.1 H (11.5-14.0) % Plt Count 166 (150-450) x10^3/uL MPV 10.1 (7.5-11.0) fL Gran % 72.7 H (36.0-66.0) % Immature Gran % (Auto) 1.0 H (0.00-0.4) % Nucleat RBC Rel Count 0.0 (0.00-0.1) % Eos # (Auto) 0.06 (0-0.5) x10^3/uL Immature Gran # (Auto) 0.06 H (0.00-0.03) x10^3u/L Absolute Lymphs (auto) 1.13 (1.0-4.6) x10^3/uL Absolute Monos (auto) 0.34 (0.0-1.3) x10^3/uL Absolute Nucleated RBC 0.00 (0.00-0.01) x10^3u/L Lymphocytes % 18.8 L (24.0-44.0) % Monocytes % 5.7 (0.0-12.0) % Eosinophils % 1.0 (0.00-5.0) % Basophils % 0.8 (0.0-0.4) % Absolute Granulocytes 4.37 (1.4-6.9) x10^3/uL Basophils # 0.05 (0-0.4) x10^3/uL Sodium 136 L (137-145) mmol/L Potassium 4.5 (3.5-5.1) mmol/L Chloride 103 (98-107) mmol/L Carbon Dioxide 25 (22-30) mmol/L Anion Gap 12.6 (5-15) MEQ/L BUN 39 H (7-17) mg/dL Creatinine 1.78 H (0.52-1.04) mg/dL Estimated GFR 30.2 ML/MIN Glucose 90 (74-106) mg/dL POC Glucometer 155 H (74 to 106) mg/dL Lactic Acid (0.4-2.0) Calcium 8.2 L (8.4-10.2) mg/dL Total Bilirubin 0.80 (0.2-1.3) mg/dL AST 34 (14-36) U/L ALT 34 (0-35) U/L Alkaline Phosphatase 99 (38-126) U/L Serum Total Protein 6.9 (6.3-8.2) g/dL Albumin 3.8 (3.5-5.0) g/dL Urine Color (Yellow) Urine Appearance (Clear) Urine pH (4.6-8.0) Ur Specific [place] (1.005-1.030) Urine Protein (Negative) Urine Glucose (UA) (Negative) mg/dL Urine Ketones (Negative) Urine Blood (Negative) Urine Nitrite (Negative) Urine Bilirubin (Negative) Urine Urobilinogen (0.2) mg/dL Ur Leukocyte Esterase (Negative) U Hyaline Cast (Auto) (0-2) /LPF Urine Microscopic RBC (0-5) /HPF Urine Microscopic WBC (0-5) /HPF Ur Epithelial Cells (None Seen) /HPF Urine Bacteria (None Seen) /HPF Urine Yeast (Budding) (None Seen) /HPF Urine Culture Reflexed (NO) 09/09/22 Range/Units 04:33 WBC (4.0-10.5) x10^3/uL RBC (4.1-5.4) x10^6/uL Hgb (12.0-16.0) g/dL Hct (35-47) % MCV (78-100) fL MCH (26-32) pg MCHC (32-36) g/dL RDW (11.5-14.0) % Plt Count (150-450) x10^3/uL MPV (7.5-11.0) fL Gran % (36.0-66.0) % Immature Gran % (Auto) (0.00-0.4) % Nucleat RBC Rel Count (0.00-0.1) % Eos # (Auto) (0-0.5) x10^3/uL Immature Gran # (Auto) (0.00-0.03) x10^3u/L Absolute Lymphs (auto) (1.0-4.6) x10^3/uL Absolute Monos (auto) (0.0-1.3) x10^3/uL Absolute Nucleated RBC (0.00-0.01) x10^3u/L Lymphocytes % (24.0-44.0) % Monocytes % (0.0-12.0) % Eosinophils % (0.00-5.0) % Basophils % (0.0-0.4) % Absolute Granulocytes (1.4-6.9) x10^3/uL Basophils # (0-0.4) x10^3/uL Sodium 137 (137-145) mmol/L Potassium 4.2 (3.5-5.1) mmol/L Chloride 107 (98-107) mmol/L Carbon Dioxide 25 (22-30) mmol/L Anion Gap 9.3 (5-15) MEQ/L BUN 33 H (7-17) mg/dL Creatinine 1.63 H (0.52-1.04) mg/dL Estimated GFR 33.4 ML/MIN Glucose 101 (74-106) mg/dL POC Glucometer (74 to 106) mg/dL Lactic Acid (0.4-2.0) Calcium 7.6 L (8.4-10.2) mg/dL Total Bilirubin 0.70 (0.2-1.3) mg/dL AST 29 (14-36) U/L ALT 29 (0-35) U/L Alkaline Phosphatase 80 (38-126) U/L Serum Total Protein 5.8 L (6.3-8.2) g/dL Albumin 3.1 L (3.5-5.0) g/dL Urine Color (Yellow) Urine Appearance (Clear) Urine pH (4.6-8.0) Ur Specific [place] (1.005-1.030) Urine Protein (Negative) Urine Glucose (UA) (Negative) mg/dL Urine Ketones (Negative) Urine Blood (Negative) Urine Nitrite (Negative) Urine Bilirubin (Negative) Urine Urobilinogen (0.2) mg/dL Ur Leukocyte Esterase (Negative) U Hyaline Cast (Auto) (0-2) /LPF Urine Microscopic RBC (0-5) /HPF Urine Microscopic WBC (0-5) /HPF Ur Epithelial Cells (None Seen) /HPF Urine Bacteria (None Seen) /HPF Urine Yeast (Budding) (None Seen) /HPF Urine Culture Reflexed (NO) Multi-Disciplinary Progress Notes: Multi-Disciplinary Progress Notes 09/09/22 13:42 Case Management Note by Rima Rodriguez DR. 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 Initialized on 09/09/22 13:02 - END OF NOTE 09/09/22 07:14 Pharmacy Note by Stefan Barbour Vancomycin dosing: Will continue 1gm dose q24h. Trough after 3 doses on Wednesday. Will monitor creatinine and adjust dose as needed. Initialized on 09/09/22 07:14 - END OF NOTE 09/08/22 18:46 Respiratory Note by Argentina Barron PT REFUSED ADVAIR. GRANDDAUGHTER BRINGING HOME TRELEGY TOMORROW. Initialized on 09/08/22 18:46 - END OF NOTE Assessment/Plan (1) Acute UTI Current Visit: No Status: Acute Assessment & Plan: Urine culture now also growing GNR (final ID pending). Add Merem to Vanc and follow up final culture. Once bacterial ID completed, can tailor regimen to continue at infusion center with management by Dr. Perry. Likely will need 1 week total course (longer if ESBL) Code(s): N39.0 - URINARY TRACT INFECTION, SITE NOT SPECIFIED (2) AURORA (acute kidney injury) Current Visit: No Status: Acute Assessment & Plan: Creatinine improving. Continue IV fluids. Code(s): N17.9 - ACUTE KIDNEY FAILURE, UNSPECIFIED (3) Dizziness Current Visit: No Status: Acute Assessment & Plan: Improving. PT eval. Monitor BP trend and will check orthostatics in AM. Code(s): R42 - DIZZINESS AND GIDDINESS Telemedicine Encounter - Telemedicine Encounter Telemedicine Encounter: The entirety of this encounter was performed via Telemedicine"
[2022-09-09] MEDS ORDERED: Sodium Chloride 0.9% 1000 ML 1,000 ML IV STA (13:56)
[2022-09-09] MEDS: MERREM 500 MG in Sodium Chloride 100ML MINI-BAG PLUS 100 ML IV SCH ×2 (14:50→21:46)
[2022-09-09] MEDS: Mucinex 600MG ER Tabs PO SCH (15:44)
[2022-09-09] MEDS ORDERED: VANCOMYCIN 1 GRAM/200 ML BAG 1 GM/200 ML PIGGYBACK IV SCH (18:00)
[2022-09-09] MEDS ORDERED: Protonix 40MG Tablet PO SCH (19:00)
[2022-09-09] MEDS ORDERED: NON-FORMULARY ITEM (Apixaban [Eliquis] 5 MG Tablet) PO SCH (19:00)
[2022-09-09] MEDS ORDERED: XANAX 1 MG PO SCH (19:00)
[2022-09-09] MEDS ORDERED: MILK OF MAGNESIA 30 ML PO SCH (19:00)
[2022-09-09] MEDS ORDERED: Robitussin 100 MG/5 ML PO PRN (22:42)
[2022-09-10 04:38] LABS: Hematocrit 32.7 % (35-47); Hemoglobin 10.3 g/dL (12.0-16.0); Mean Cell Volume 98.5 fL (78-100); Mean Corpuscular Hgb Concent. 31.5 g/dL (32-36); Mean Platelet Volume 10.1 fL (7.5-11.0); Platelet Count 140 x10^3/uL (150-450); Red Blood Count 3.32 x10^6/uL (4.1-5.4); Red Cell Distribution Width 14.6 % (11.5-14.0); White Blood Count 5.5 x10^3/uL (4.0-10.5)
[2022-09-10 05:06] LABS: ANION GAP 13.1 MEQ/L (5-15); Calcium 7.6 mg/dL (8.4-10.2); Creatinine 1 1.54 mg/dL (0.52-1.04); EST GLOMERULAR FILTRATION RATE 35.7 ML/MIN; Potassium 4.2 mmol/L (3.5-5.1)
[2022-09-10] MEDS: MERREM 500 MG in Sodium Chloride 100ML MINI-BAG PLUS 100 ML IV SCH ×2 (06:02→13:23)
[2022-09-10] MEDS: PROVENTIL 2.5 MG/3 ML NEB IH SCH ×2 (06:41→13:12)
[2022-09-10] MEDS ORDERED: NON-FORMULARY ITEM (Fluticasone/Umeclidin/Vilanter [Trelegy Ellipta 200-62.5-25] 1 EACH Bl IH SCH (07:00)
[2022-09-10] MEDS ORDERED: DEXLANSOPRAZOLE 60 MG PO SCH (07:00)
[2022-09-10] MEDS ORDERED: PSEUDOEPHEDRINE PO SCH (07:00)
[2022-09-10] MEDS ORDERED: CETIRIZINE HCL PO SCH (07:00)
[2022-09-10] MEDS ORDERED: NON-FORMULARY ITEM (Linaclotide [Linzess] 290 MCG Capsule) PO SCH (07:00)
[2022-09-10] MEDS ORDERED: NON-FORMULARY ITEM (Aspirin [Aspirin] 81 MG Tablet) PO SCH (07:00)
[2022-09-10] MEDS ORDERED: PRUCALOPRIDE SUCCINATE 1 MG PO SCH (07:00)
[2022-09-10] MEDS: ELIQUIS 2.5 MG TABLET PO SCH (07:09)
[2022-09-10] MEDS: MILK OF MAGNESIA 30 ML PO SCH (07:09)
[2022-09-10] MEDS: Mucinex 600MG ER Tabs PO SCH (07:09)
[2022-09-10] MEDS: Protonix 40MG Tablet PO SCH (07:09)
[2022-09-10] MEDS: Sodium Chloride 0.9% 1000 ML 1,000 ML IV SCH ×2 (07:09→13:28)
[2022-09-10] MEDS: Acidophilus TABLET PO SCH (07:09)
[2022-09-10] MEDS: ECOTRIN 81 MG PO SCH (07:09)
[2022-09-10] MEDS: SYNTHROID 50 MCG PO SCH (07:09)
[2022-09-10] MEDS: CLARITIN-D 24HR TABLET PO SCH (07:14)
[2022-09-10 07:30] VITALS: TEMP 97.1
[2022-09-10] MEDS: PATIENT OWN MEDICATION IH SCH (08:14)
[2022-09-10 11:48] VITALS: BP 97/58; RESP 18
--- NOTE | 2022-09-10 12:33 | PCM.DS ---
Discharge Summary Date of Admission: 09/08/22 17:46 Date of Discharge: 09/10/22 Admitting Physician: KRISTIAN STANTON MD Primary Care Provider: LLUVIA PERRY DO Allergies Allergies sumatriptan [From Imitrex] Allergy (Intermediate, Verified 08/25/22 12:45) Rash codeine Allergy (Mild, Verified 08/25/22 12:45) Rash MAKES SICK nitrofurantoin [From Macrobid] Allergy (Unknown, Verified 08/25/22 12:45) sulfamethoxazole [From Bactrim] Allergy (Unknown, Verified 08/25/22 12:45) trimethoprim [From Bactrim] Allergy (Unknown, Verified 08/25/22 12:45) sumatriptan succinate [From Imitrex] Allergy (Verified 08/25/22 12:45) morphine Adverse Reaction (Severe, Verified 08/25/22 12:45) Headache MIGRAINES fentanyl Adverse Reaction (Intermediate, Verified 08/25/22 12:45) Headache hydrocodone bitartrate [From Vicodin] Adverse Reaction (Mild, Verified 08/25/22 12:45) Vomiting hydromorphone [From Dilaudid] Adverse Reaction (Mild, Verified 08/25/22 12:45) pt states makes heache worse. Hospital Summary - Hospital Course Hospital Course: Patient was admitted for UTI with recent culture showing E. faecalis sensitive only to vancomycin, which has been continued. The patient also demonstrated growth of pseudomonas, and received Merem (which will be transitioned to po levofloxacin at discharge). The IV vancomycin will be continued to be administ ered for 5 more days (7 day total course) via her port at the infusion center, with outpatient management by Dr. Perry. The patient also would benefit from reevaluation by Dr. Licea (urology). - Vitals & Intake/Output Vital Signs: Vital Signs Temperature 97.1 F 09/10/22 11:46 Pulse Rate 72 09/10/22 11:46 Respiratory Rate 18 09/10/22 11:46 Blood Pressure 97/58 09/10/22 11:46 O2 Sat by Pulse Oximetry 95 09/10/22 11:46 Intake & Output: Intake & Output 09/08/22 09/09/22 09/10/22 09/11/22 11:59 11:59 11:59 11:59 Intake Total 480 5399 Output Total 25 Balance 480 5312 Weight 80.739 kg - Lab Result Diagrams: 09/10/22 04:15 09/10/22 04:15 Lab Results-Last 24 Hrs: Lab Results-Last 24 Hours 09/10/22 09/10/22 Range/Units 04:15 04:15 WBC 5.5 (4.0-10.5) x10^3/uL RBC 3.32 L (4.1-5.4) x10^6/uL Hgb 10.3 L (12.0-16.0) g/dL Hct 32.7 L (35-47) % MCV 98.5 (78-100) fL MCH 31.0 (26-32) pg MCHC 31.5 L (32-36) g/dL RDW 14.6 H (11.5-14.0) % Plt Count 140 L (150-450) x10^3/uL MPV 10.1 (7.5-11.0) fL Sodium 140 (137-145) mmol/L Potassium 4.2 (3.5-5.1) mmol/L Chloride 114 H (98-107) mmol/L Carbon Dioxide 17 L (22-30) mmol/L Anion Gap 13.1 (5-15) MEQ/L BUN 25 H (7-17) mg/dL Creatinine 1.54 H (0.52-1.04) mg/dL Estimated GFR 35.7 ML/MIN Glucose 113 H (74-106) mg/dL Calcium 7.6 L (8.4-10.2) mg/dL Micro Results-Entire Visit: Microbiology 09/08/22 14:25 Urine Culture - Final Clean Catch Midstream Pseudomonas Aeruginosa - Procedures and Test Procedures and Tests throughout Hospitalization: Therapy Orders & Screens 09/08/22 18:26 Oxygen NASAL CANNULA 3 lpm Comment: Diagnosis: Resistant urinary tract infection Respiratory Therapy Assessment DAILY Comment: Diagnosis: Resistant urinary tract infection 09/08/22 18:58 PT Eval & Treat (MD Order) ONCE Reason for Eval:: debility Diagnosis: Resistant urinary tract infection 09/10/22 07:00 Respiratory MDI UD Comment: Advair 115/21 2 puffs BID Diagnosis: Resistant urinary tract infection Discharge Exam General Appearance: no apparent distress, alert Neurologic Exam: alert, 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, cooperative, 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, normal mood/affect, nml cerebellar function Eye Exam: PERRL, EOMI, eyes nml inspection Ears, Nose, Throat Exam: normal ENT inspection Neck Exam: normal inspection, non-tender, supple, full range of motion Respiratory Exam: normal breath sounds, lungs clear Cardiovascular Exam: regular rate/rhythm, normal heart sounds Gastrointestinal/Abdomen Exam: soft, normal bowel sounds Back Exam: normal range of motion Extremity Exam: normal inspection, normal range of motion Skin Exam: normal color Final Diagnosis/Problem List - Final Discharge Diagnosis/Problem (1) Acute UTI Current Visit: No Status: Acute Assessment & Plan: Antibiotics plan as outlined. Code(s): N39.0 - URINARY TRACT INFECTION, SITE NOT SPECIFIED (2) AURORA (acute kidney injury) Current Visit: No Status: Acute Assessment & Plan: Creatinine has improved. Code(s): N17.9 - ACUTE KIDNEY FAILURE, UNSPECIFIED (3) Dizziness Current Visit: No Status: Acute Assessment & Plan: Improved. Code(s): R42 - DIZZINESS AND GIDDINESS Telemedicine Encounter - Telemedicine Encounter Telemedicine Encounter: The entirety of this encounter was performed via Telemedicine" - Discharge Disposition: Home, Self-Care Condition: Stable Prescriptions: New Vancomycin/Water For Inj (Peg) [Vancomycin 1 Gram/200 ml Bag] 1 gm IV Q24H #5 iv piggy L. Acidophilus/L.bulgaricus [Lactobacillus Tablet] 1 each PO DAILY 10 Days #10 tablet levoFLOXacin [Levofloxacin] 750 mg PO DAILY 5 Days #5 tablet Continue ALPRAZolam 1 MG [Xanax 1 mg] 2 mg PO 1900 Cetirizine HCl/Pseudoephedrine [Zyrtec-D Tablet] 1 each PO 07 Aspirin 81 mg PO 07 Levothyroxine Sodium 50 Mcg [Synthroid 50 Mcg] 50 mcg PO 07 Linaclotide [Linzess] 290 mcg PO 07 Dexlansoprazole [Dexilant] 60 mg PO 07 Albuterol 2.5 mg/3 ml Neb [Proventil 2.5 mg/3 ml Neb] 2.5 mg IH QID dilTIAZem HCl [Diltiazem 24Hr ER (Cd)] 120 mg PO 07 Omeprazole/Sodium Bicarbonate [Omeprazole-Bicarb 40-1,100 Cap] 1 cap PO 19 Promethazine HCl 25 mg [Phenergan 25 mg] 25 mg PO BIDPRN PRN PRN Reason: Nausea Rizatriptan Benzoate [Maxalt] 10 mg PO DAILY PRN PRN Reason: Headache Apixaban [Eliquis] 5 mg PO 07,19 Fluticasone/Umeclidin/Vilanter [Trelegy Ellipta 200-62.5-25] 1 each IH 07 Prucalopride Succinate [Motegrity] 1 mg PO 07 Magnesium Hydroxide 30 ml [Milk of Magnesia 30 ml] 60 ml PO 07 Magnesium Hydroxide 30 ml [Milk of Magnesia 30 ml] 30 ml PO 19 Cephalexin Mh 250 mg [Keflex 250 mg] 250 mg PO 07 Guaifenesin [Mucinex] 600 mg PO 07 Additional Instructions: YOUR FIRST INFUSION IS SCHEDULED 09/11/22@ 2 PM- GO TO REGISTRATION WHEN YOU ARRIVE Follow up with: ELIZABETH HEAD MD [ACTIVE STAFF] - 09/11/22 3:30 pm LLUVIA PERRY DO [Primary Care Provider] -
[2022-09-10] MEDS: Cardizem CD PO SCH (12:35)
[2022-09-10 13:17] VITALS: PULSE 77; O2SAT 97
[2022-09-10 13:30] LABS: 027 TOX PROD PRESUMPTIVE NEGATIVE (NEGATIVE); TOXIGENIC C. DIFF ORG NEGATIVE (NEGATIVE)
[2022-09-10] MEDS ORDERED: VANCOMYCIN 1 GRAM/200 ML BAG 1 GM/200 ML PIGGYBACK IV SCH (14:00)
== END 2022-09-10 15:56 | disposition home or self-care (01) ==
LOC: ED 14:05 → MED SURG 17:46 → INTOOBSV 17:46
PROVIDERS: ADMIT Internal Medicine; ATTEND Internal Medicine
DX: N39.0 Urinary tract infection, site not specified (principal); N17.9 Acute kidney failure, unspecified; R42 Dizziness and giddiness; Z79.899 Other long term (current) drug therapy; Z20.828 Contact with and (suspected) exposure to other viral communicable diseases; Z79.01 Long term (current) use of anticoagulants
CPT/HCPCS: 36000; 36415; 80048; 80053; 81001; 82947; 83605; 85025; 85027; 87040; 87077; 87086; 87186; 87493; 93041; 93268; 94640; 94760; 94762; 97161; 99285; G0378; Q3014; J0696; J1642; J2405; J7609; A9270-GY; J3370

== ENCOUNTER 2022-09-11 20:26 | Emergency (ER) | payer MEDICARE ==
[2022-09-11 20:44] VITALS: RESP 16; TEMP 98.4
[2022-09-11] MEDS ORDERED: Sodium Chloride 0.9% 1000 ML 1,000 ML IV STA (20:44)
[2022-09-11] MEDS ORDERED: Sodium Chloride 0.9% 1000 ML 1,000 ML ONE (20:51)
--- NOTE | 2022-09-11 21:05 | ERPHSYRPT ---
- History of Present Illness Time Seen by Provider: 09/11/22 21:03 Source: patient, EMS Exam Limitations: no limitations Patient Subjective Stated Complaint: pt states I'm getting infusions for a bacteria infection. I don't feel any better Triage Nursing Assessment: pt came into the er via ambulance; pt is axo x4; c/o not feeling well after infusion; hx of frequent UTIs; no respiratory distress present; skin PDW; vitals wnl Physician History: Patient is 67-year-old female with multiple medical problems recently patient had pyelonephritis with early sepsis. Patient was admitted in the hospital IV antibiotic was started and then patient was discharged home with levofloxacin as well as outpatient IV vancomycin infusion which patient is getting it for last 3 days last infusion was today morning. She states that she is just not feeling well so she called ambulance and patient was brought into the emergency room. Patient was denying any fever chills nausea vomiting. Timing/Duration: today Associated Symptoms: denies symptoms Allergies/Adverse Reactions: sumatriptan [From Imitrex] Allergy (Intermediate, Verified 09/11/22 20:31) Rash codeine Allergy (Mild, Verified 09/11/22 20:31) Rash MAKES SICK nitrofurantoin [From Macrobid] Allergy (Unknown, Verified 09/11/22 20:31) sulfamethoxazole [From Bactrim] Allergy (Unknown, Verified 09/11/22 20:31) trimethoprim [From Bactrim] Allergy (Unknown, Verified 09/11/22 20:31) sumatriptan succinate [From Imitrex] Allergy (Verified 09/11/22 20:31) morphine Adverse Reaction (Severe, Verified 09/11/22 20:31) Headache MIGRAINES fentanyl Adverse Reaction (Intermediate, Verified 09/11/22 20:31) Headache hydrocodone bitartrate [From Vicodin] Adverse Reaction (Mild, Verified 09/11/22 20:31) Vomiting hydromorphone [From Dilaudid] Adverse Reaction (Mild, Verified 09/11/22 20:31) pt states makes heache worse. Home Medications: ALPRAZolam 1 MG [Xanax 1 mg] 2 mg PO 1900 02/17/13 [History] Cetirizine HCl/Pseudoephedrine [Zyrtec-D Tablet] 1 each PO 07 02/03/16 [History] Aspirin 81 mg PO 09/11/16 [History] Levothyroxine Sodium 50 Mcg [Synthroid 50 Mcg] 50 mcg PO 07/06/17 [History] Linaclotide [Linzess] 290 mcg PO 10/07/17 [History] Dexlansoprazole [Dexilant] 60 mg PO 01/21/20 [History] Albuterol 2.5 mg/3 ml Neb [Proventil 2.5 mg/3 ml Neb] 2.5 mg IH QID 07/23/20 [History] dilTIAZem HCl [Diltiazem 24Hr ER (Cd)] 120 mg PO 09/29/21 [History] Omeprazole/Sodium Bicarbonate [Omeprazole-Bicarb 40-1,100 Cap] 1 cap PO 01/18/22 [History] Promethazine HCl 25 mg [Phenergan 25 mg] 25 mg PO BIDPRN PRN 01/18/22 [History] Apixaban [Eliquis] 5 mg PO 07/02/22 [History] Fluticasone/Umeclidin/Vilanter [Trelegy Ellipta 200-62.5-25] 1 each IH 07/02/22 [History] Prucalopride Succinate [Motegrity] 1 mg PO 07/02/22 [History] Rizatriptan Benzoate [Maxalt] 10 mg PO DAILY PRN 07/02/22 [History] Magnesium Hydroxide 30 ml [Milk of Magnesia 30 ml] 30 ml PO 09/08/22 [History] Magnesium Hydroxide 30 ml [Milk of Magnesia 30 ml] 60 ml PO 09/08/22 [History] Guaifenesin [Mucinex] 600 mg PO 09/09/22 [History] Hx Tetanus, Diphtheria Vaccination/Date Given: No Hx Influenza Vaccination/Date Given: Yes Hx Pneumococcal Vaccination/Date Given: Yes Travel Risk - International Travel Have you traveled outside of the country in past 3 weeks: No - Coronavirus Screening Are you exhibiting any of the following symptoms?: No Close contact with a COVID-19 positive Pt in past 14-21 Days: No - Vaccine Status Have you recieved a 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: Yes 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 - Review of Systems Constitutional: Lethargy, No Fever, No Chills Eyes: No Symptoms Ears, Nose, & Throat: No Symptoms Respiratory: No Cough, No Dyspnea Cardiac: No Chest Pain, No Edema, No Syncope Abdominal/Gastrointestinal: No Abdominal Pain, No Nausea, No Vomiting, No Diarrhea Genitourinary Symptoms: No Dysuria Musculoskeletal: No Back Pain, No Neck Pain Skin: No Rash Neurological: No Dizziness, No Focal Weakness, No Sensory Changes Psychological: No Symptoms Endocrine: No Symptoms All Other Systems: Reviewed and Negative - Past Medical History Pertinent Past Medical History: Yes Neurological History: Migraines ENT History: Cataracts Cardiac History: No Pertinent History Respiratory History: Bronchitis, COPD, Pulmonary Embolism Endocrine Medical History: Hypothyroidism Musculoskeletal History: Osteoarthritis GI Medical History: GERD, Other History: Other Psycho-Social History: Anxiety, Panic Disorder Female Reproductive Disorders: No Pertinent History Other Medical History: frequent uti's, chronic pseudo obstruction, blood clot - Past Surgical History Past Surgical History: Yes Neuro Surgical History: No Pertinent History Cardiac: No Pertinent History Respiratory: No Pertinent History Gastrointestinal: Cholecystectomy, Other Genitourinary: No Pertinent History Musculoskeletal: No Pertinent History Female Surgical History: No Pertinent History Other Surgical History: all of large intestine removed and most of small intestines removed. - Social History Smoking Status: Never smoker Exposure to second hand smoke: No Alcohol Use: None Drug Use: none Patient Lives Alone: Yes Significant Family History: no pertinent family hx - Nursing Vital Signs Nursing Vital Signs: Initial Vital Signs Temperature 98.4 F 09/11/22 20:28 Pulse Rate 88 09/11/22 20:28 Respiratory Rate 16 09/11/22 20:28 Blood Pressure 134/80 09/11/22 20:28 O2 Sat by Pulse Oximetry 97 09/11/22 20:28 Pain Scale Pain Intensity 6 - Physical Exam General Appearance: no apparent distress, alert Eye Exam: PERRL/EOMI, eyes nml inspection Ears, Nose, Throat Exam: normal ENT inspection, TMs normal, pharynx normal, moist mucous membranes Neck Exam: normal inspection, non-tender, supple, full range of motion Respiratory Exam: normal breath sounds, lungs clear, No respiratory distress Cardiovascular Exam: regular rate/rhythm, normal heart sounds, normal peripheral pulses Gastrointestinal/Abdomen Exam: soft, normal bowel sounds, No tenderness, No mass Back Exam: normal inspection, normal range of motion, No CVA tenderness, No vertebral tenderness Extremity Exam: normal inspection, normal range of motion, pelvis stable Neurologic Exam: alert, 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, cooperative, normal mood/affect, nml cerebellar function, nml station & gait, sensation nml, No motor deficits Skin Exam: normal color, warm, dry, No rash Lymphatic Exam: No adenopathy SpO2: 97 - Course Nursing assessment & vital signs reviewed: Yes Ordered Tests: Active Orders 24 hr Category Date Time Status CBC W DIFF Stat Lab 09/11/22 21:10 Completed CMP Stat Lab 09/11/22 21:10 Completed Medication Summary Generic Name Dose Route Start Last Admin Trade Name Freq PRN Reason Stop Dose Admin Sodium Chloride 1,000 mls @ 999 mls/hr 09/11/22 20:44 09/11/22 20:59 Sodium Chloride 0.9% 1000 Ml IV 09/11/22 21:44 999 mls/hr .Q1H1M STA Administration Discontinued Medications Generic Name Dose Route Start Last Admin Trade Name Freq PRN Reason Stop Dose Admin Sodium Chloride Confirm 09/11/22 20:51 Sodium Chloride 0.9% 1000 Ml Administered 09/11/22 20:52 Dose 1,000 mls @ ud .ROUTE .STK-MED ONE Lab/Rad Data: Laboratory Result Diagrams 09/11/22 21:10 09/11/22 21:10 Laboratory Results 09/11/22 09/11/22 Range/Units 21:10 21:10 WBC 5.4 (4.0-10.5) x10^3/uL RBC 3.56 L (4.1-5.4) x10^6/uL Hgb 11.1 L (12.0-16.0) g/dL Hct 35.0 (35-47) % MCV 98.3 (78-100) fL MCH 31.2 (26-32) pg MCHC 31.7 L (32-36) g/dL RDW 14.0 (11.5-14.0) % Plt Count 144 L (150-450) x10^3/uL MPV 9.9 (7.5-11.0) fL Gran % 70.6 H (36.0-66.0) % Immature Gran % (Auto) 0.7 H (0.00-0.4) % Nucleat RBC Rel Count 0.0 (0.00-0.1) % Eos # (Auto) 0.08 (0-0.5) x10^3/uL Immature Gran # (Auto) 0.04 H (0.00-0.03) x10^3u/L Absolute Lymphs (auto) 1.02 (1.0-4.6) x10^3/uL Absolute Monos (auto) 0.38 (0.0-1.3) x10^3/uL Absolute Nucleated RBC 0.00 (0.00-0.01) x10^3u/L Lymphocytes % 19.0 L (24.0-44.0) % Monocytes % 7.1 (0.0-12.0) % Eosinophils % 1.5 (0.00-5.0) % Basophils % 1.1 (0.0-0.4) % Absolute Granulocytes 3.78 (1.4-6.9) x10^3/uL Basophils # 0.06 (0-0.4) x10^3/uL Sodium 139 (137-145) mmol/L Potassium 4.5 (3.5-5.1) mmol/L Chloride 117 H (98-107) mmol/L Carbon Dioxide 13 L* (22-30) mmol/L Anion Gap 13.4 (5-15) MEQ/L BUN 18 H (7-17) mg/dL Creatinine 1.39 H (0.52-1.04) mg/dL Estimated GFR 40.2 ML/MIN Glucose 113 H (74-106) mg/dL Calcium 8.4 (8.4-10.2) mg/dL Total Bilirubin 0.50 (0.2-1.3) mg/dL AST 25 (14-36) U/L ALT 23 (0-35) U/L Alkaline Phosphatase 77 (38-126) U/L Serum Total Protein 6.4 (6.3-8.2) g/dL Albumin 3.4 L (3.5-5.0) g/dL - Progress Progress: improved Counseled pt/family regarding: lab results, diagnosis, need for follow-up Medical Desision Making - Risk of complications The pt has a high risk of morbidity or mortality based on: Drug therapy requiring intensive monitoring for toxicity - Departure Departure Disposition: Home Clinical Impression: UTI due to extended-spectrum beta lactamase (ESBL) producing Escherichia coli, Hypocarbia Condition: Stable Critical Care Time: No Referrals: LLUVIA CHILDERS DO [Primary Care Provider] - Follow Up with PCP/3 days Additional Instructions: Discharge/Care Plan GEOVANNY FREY was seen on 09/11/22 in the Emergency Room. The patient was counseled regarding Diagnosis,Lab results, Imaging studies, need for follow up and when to return to the Emergency Room. Prescriptions given: Discharge Note I have spoken with the patient and/or caregivers. I have explained the patient's condition, diagnosis and treatment plan based on the information available to me at this time. I have answered the patient's and/or caregiver's questions and addressed any concerns. The patient and/or caregivers have as good understanding of the patient's diagnosis, condition and treatment plan as can be expected at this point. The vital signs have been stable. The patient's condition is stable and appropriate for discharge from the emergency department. The patient will pursue further outpatient evaluation with the primary care physician or other designated or consulting physician as outlined in the discharge instructions. The patient and/or caregivers are agreeable to this plan of care and follow-up instructions have been explained in detail. The patient and/or caregivers have received these instruction. The patient/and or caregivers are aware that any significant change in condition or worsening of symptoms should prompt an immediate return to this or the closest emergency department or call 911. GEOVANNY FREY was seen on 09/11/22 n the Emergency Room. At that time you were treated for an emergent condition, during your visit Laboratory, Radiology and/or other procedures may have been ordered. It is very important that you follow-up with your Primary Care Physician LLUVIA CHILDERS DO within the next 24-48 hours to review your Emergency Room visit and the final results of testing that was ordered. Some test results such as Urine Cultures, Blood Cultures, and other cultures if ordered will not be finalized for 24-48 hours. If you do not have a Primary Care Provider please call the medical records department at [phone] ext [phone] to obtain a copy of your results or you may sign into our patient portal to obtain these results by visiting us @ [email or web address] and completing the following steps: 1. Click on the Patient Portal link 2. Click the Patient Self Enrollment Link to complete the enrollment form and entering your 3. Once the enrollment form is completed you will receive an email with a temporary ID and password at the email address you provided. 4. Next choose a user name and password. Your user name must be at least 4 characters long and your password must be at least 4 characters long. 5. Choose a security question from the list and provide your answer to the question. If you already have signed into the Health Portal you may access your Health Care Information 07/09 by the following steps: 1. Login to our website @ [email or web address] 2. Enter your original user name and password. FAQS The [facility] Health Portal is an online tool that contains your Lab Results, Radiology Reports, Visit History, Discharge Instructions and Health Summary Lab and Radiology Results will not be available for 72 hours on the portal. The Portal is a secure site, passwords are encryted and URLs are re-written so they cannot be copied and pasted. You and authorized family members are the only ones who can access your Portal. Also there is a timeout feature that protects your information if you leave the Portal page open. If you have technical difficulty please use the Contact Us link on the page this will allow you to submit any questions you have regarding the Portal or you may contact the Medical Record Department at [phone] ext [phone].
[2022-09-11 21:13] LABS: Absolute Neutrophil Ct (ANC) 3.78 x10^3/uL (1.4-6.9); BASOPHIL % 1.1 % (0.0-0.4); Basophil (Absolute #) 0.06 x10^3/uL (0-0.4); Eosinophil % 1.5 % (0.00-5.0); Eosinophil (Absolute #) 0.08 x10^3/uL (0-0.5); Hemoglobin 11.1 g/dL (12.0-16.0); IMMATURE GRAN # 0.04 x10^3u/L (0.00-0.03); IMMATURE GRAN % 0.7 % (0.00-0.4); Lymphocyte (Absolute #) 1.02 x10^3/uL (1.0-4.6); Mean Cell Volume 98.3 fL (78-100); Mean Corpuscular Hemoglobin 31.2 pg (26-32); Mean Corpuscular Hgb Concent. 31.7 g/dL (32-36); Mean Platelet Volume 9.9 fL (7.5-11.0); Monocyte (Absolute #) 0.38 x10^3/uL (0.0-1.3); Monocytes % 7.1 % (0.0-12.0); Neutrophil % 70.6 % (36.0-66.0); Platelet Count 144 x10^3/uL (150-450); Red Blood Count 3.56 x10^6/uL (4.1-5.4); White Blood Count 5.4 x10^3/uL (4.0-10.5)
[2022-09-11 21:28] LABS: ALBUMIN 3.4 g/dL (3.5-5.0); ANION GAP 13.4 MEQ/L (5-15); BILIRUBIN,TOTAL 0.5 mg/dL (0.2-1.3); Calcium 8.4 mg/dL (8.4-10.2); Creatinine 1 1.39 mg/dL (0.52-1.04); EST GLOMERULAR FILTRATION RATE 40.2 ML/MIN; Potassium 4.5 mmol/L (3.5-5.1); Total Protein 6.4 g/dL (6.3-8.2)
[2022-09-11 22:07] VITALS: BP 107/65; PULSE 81; O2SAT 98
== END 2022-09-11 22:17 | disposition home or self-care (01) ==
LOC: ED 20:26
DX: N39.0 Urinary tract infection, site not specified (principal); B96.29 Other Escherichia coli [E. coli] as the cause of diseases classified elsewhere; R79.81 Abnormal blood-gas level; Z79.01 Long term (current) use of anticoagulants; Z79.899 Other long term (current) drug therapy
CPT/HCPCS: 36415; 80053; 85025; 96360; 96365; 96366; 99211; 99283; J1642; J3370

== ENCOUNTER 2022-10-07 13:04 | Emergency (ER) | payer MEDICARE ==
[2022-10-07 14:00] LABS: Appearance Clear (Clear); Bacteria None Seen /HPF (None Seen); Bilirubin Negative (Negative); Blood Negative (Negative); Epithelial Cells None Seen /HPF (None Seen); Glucose, Urine Negative (Negative); Hyaline Casts NONE SEEN /LPF (0-2); Ketones Negative (Negative); Leukocyte Esterase Small (Negative); Nitrite Negative (Negative); Protein,Urine Dip Negative (Negative); RBC 0-2 /HPF (0-5); Specific Gravity 1.015 (1.005-1.030); Urobilinogen 0.2 mg/dL (0.2)
[2022-10-07] MEDS ORDERED: Sodium Chloride 0.9% 1000 ML 1,000 ML IV STA (14:05)
[2022-10-07 14:22] VITALS: RESP 20; TEMP 97.3
[2022-10-07 14:34] LABS: Absolute Neutrophil Ct (ANC) 4.02 x10^3/uL (1.4-6.9); BASOPHIL % 0.6 % (0.0-0.4); Basophil (Absolute #) 0.03 x10^3/uL (0-0.4); Eosinophil % 0.9 % (0.00-5.0); Eosinophil (Absolute #) 0.05 x10^3/uL (0-0.5); Hematocrit 37.9 % (35-47); Hemoglobin 12.5 g/dL (12.0-16.0); IMMATURE GRAN # 0.06 x10^3u/L (0.00-0.03); IMMATURE GRAN % 1.1 % (0.00-0.4); Lymphocyte (Absolute #) 0.87 x10^3/uL (1.0-4.6); Lymphocytes % 16.1 % (24.0-44.0); Mean Cell Volume 94.5 fL (78-100); Mean Corpuscular Hemoglobin 31.2 pg (26-32); Mean Platelet Volume 10.3 fL (7.5-11.0); Monocyte (Absolute #) 0.39 x10^3/uL (0.0-1.3); Monocytes % 7.2 % (0.0-12.0); Neutrophil % 74.1 % (36.0-66.0); Platelet Count 167 x10^3/uL (150-450); Red Blood Count 4.01 x10^6/uL (4.1-5.4); Red Cell Distribution Width 13.5 % (11.5-14.0); White Blood Count 5.4 x10^3/uL (4.0-10.5)
[2022-10-07] MEDS ORDERED: Sodium Chloride 0.9% 1000 ML 1,000 ML ONE (14:36)
[2022-10-07 14:41] LABS: ANION GAP 17.5 MEQ/L (5-15); Calcium 8.8 mg/dL (8.4-10.2); Creatinine 1 1.33 mg/dL (0.52-1.04); EST GLOMERULAR FILTRATION RATE 42.3 ML/MIN; Potassium 4.5 mmol/L (3.5-5.1)
[2022-10-07 14:45] LABS: ADD URINE CULTURE? NO (NO)
--- NOTE | 2022-10-07 14:48 | ERPHSYRPT ---
- History of Present Illness Time Seen by Provider: 10/07/22 13:08 Source: patient Exam Limitations: no limitations Patient Subjective Stated Complaint: pt states I was at the doctor office on wednesday and they said I had a UTI Triage Nursing Assessment: pt ambulated into the er; pt is axo x4; c/o urinary frequency; pt states 5/10 pain to [place] area; abd soft, nontender; active bowel sounds in all quads; c/o nausea; vitals wnl; skin PDW; no respiratory distress Physician History: Patient here for potential UTI-like symptoms. Patient states that she gets chronic and frequent UTIs. Patient had a recent UA done at [facility]. She states that she was told she had a UTI at that point time. Patient did not receive any antibiotics, no treatment. Patient was given a IV antibiotics at the infusion center up until last week. Patient states that she has some nonspecific abdominal cramping. Not her typical overwhelming UTI symptoms. No fever no chills some nausea no vomiting. She denies any chest pain, shortness of breath. Modifying Factors: Improves With: rest Allergies/Adverse Reactions: sumatriptan [From Imitrex] Allergy (Intermediate, Verified 09/15/22 06:06) Rash codeine Allergy (Mild, Verified 09/15/22 06:06) Rash MAKES SICK nitrofurantoin [From Macrobid] Allergy (Unknown, Verified 09/15/22 06:06) sulfamethoxazole [From Bactrim] Allergy (Unknown, Verified 09/15/22 06:06) trimethoprim [From Bactrim] Allergy (Unknown, Verified 09/15/22 06:06) sumatriptan succinate [From Imitrex] Allergy (Verified 09/15/22 06:06) morphine Adverse Reaction (Severe, Verified 09/15/22 06:06) Headache MIGRAINES fentanyl Adverse Reaction (Intermediate, Verified 09/15/22 06:06) Headache hydrocodone bitartrate [From Vicodin] Adverse Reaction (Mild, Verified 09/15/22 06:06) Vomiting hydromorphone [From Dilaudid] Adverse Reaction (Mild, Verified 09/15/22 06:06) pt states makes heache worse. Home Medications: ALPRAZolam 1 MG [Xanax 1 mg] 2 mg PO 1900 02/17/13 [History] Cetirizine HCl/Pseudoephedrine [Zyrtec-D Tablet] 1 each PO 02/03/16 [History] Aspirin 81 mg PO 09/11/16 [History] Levothyroxine Sodium 50 Mcg [Synthroid 50 Mcg] 50 mcg PO 07/06/17 [History] Linaclotide [Linzess] 290 mcg PO 10/07/17 [History] Dexlansoprazole [Dexilant] 60 mg PO 01/21/20 [History] Albuterol 2.5 mg/3 ml Neb [Proventil 2.5 mg/3 ml Neb] 2.5 mg IH QID 07/23/20 [History] dilTIAZem HCl [Diltiazem 24Hr ER (Cd)] 120 mg PO 09/29/21 [History] Omeprazole/Sodium Bicarbonate [Omeprazole-Bicarb 40-1,100 Cap] 1 cap PO 01/18/22 [History] Promethazine HCl 25 mg [Phenergan 25 mg] 25 mg PO BIDPRN PRN 01/18/22 [History] Apixaban [Eliquis] 5 mg PO 07/02/22 [History] Fluticasone/Umeclidin/Vilanter [Trelegy Ellipta 200-62.5-25] 1 each IH 07/02/22 [History] Prucalopride Succinate [Motegrity] 1 mg PO 07/02/22 [History] Rizatriptan Benzoate [Maxalt] 10 mg PO DAILY PRN 07/02/22 [History] Magnesium Hydroxide 30 ml [Milk of Magnesia 30 ml] 30 ml PO 09/08/22 [History] Magnesium Hydroxide 30 ml [Milk of Magnesia 30 ml] 60 ml PO 09/08/22 [History] Guaifenesin [Mucinex] 600 mg PO 09/09/22 [History] Hx Tetanus, Diphtheria Vaccination/Date Given: No Hx Influenza Vaccination/Date Given: Yes Hx Pneumococcal Vaccination/Date Given: Yes Travel Risk - International Travel Have you traveled outside of the country in past 3 weeks: No - Coronavirus Screening Are you exhibiting any of the following symptoms?: No Close contact with a COVID-19 positive Pt in past 14-21 Days: No - Vaccine Status Have you recieved a 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: Yes 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 - Review of Systems Constitutional: No Fever, No Chills Eyes: No Symptoms Ears, Nose, & Throat: No Symptoms Respiratory: No Cough, No Dyspnea Cardiac: No Chest Pain, No Edema, No Syncope Abdominal/Gastrointestinal: Abdominal Pain, No Nausea, No Vomiting, No Diarrhea Genitourinary Symptoms: No Dysuria Musculoskeletal: No Back Pain, No Neck Pain Skin: No Rash Neurological: No Dizziness, No Focal Weakness, No Sensory Changes Psychological: No Symptoms Endocrine: No Symptoms All Other Systems: Reviewed and Negative - Past Medical History Pertinent Past Medical History: Yes Neurological History: Migraines ENT History: Cataracts Cardiac History: No Pertinent History Respiratory History: Bronchitis, COPD, Pulmonary Embolism Endocrine Medical History: Hypothyroidism Musculoskeletal History: Osteoarthritis GI Medical History: GERD, Other History: Other Psycho-Social History: Anxiety, Panic Disorder Female Reproductive Disorders: No Pertinent History Other Medical History: frequent uti's, chronic pseudo obstruction, blood clot - Past Surgical History Past Surgical History: Yes Neuro Surgical History: No Pertinent History Cardiac: No Pertinent History Respiratory: No Pertinent History Gastrointestinal: Cholecystectomy, Other Genitourinary: No Pertinent History Musculoskeletal: No Pertinent History Female Surgical History: No Pertinent History Other Surgical History: all of large intestine removed and most of small intestines removed. - Social History Smoking Status: Never smoker Exposure to second hand smoke: No Alcohol Use: None Drug Use: none Patient Lives Alone: No Significant Family History: no pertinent family hx - Nursing Vital Signs Nursing Vital Signs: Initial Vital Signs Temperature 98.7 F 10/07/22 13:28 Pulse Rate 99 H 10/07/22 13:28 Respiratory Rate 24 10/07/22 13:28 Blood Pressure 96/74 10/07/22 13:28 O2 Sat by Pulse Oximetry 95 10/07/22 13:28 Pain Scale Pain Intensity 2 - Physical Exam SpO2: 98 Comments: 10/07/22 15:00 Physical Exam Vitals signs and nursing note reviewed. Constitutional: Appearance: Patient is well-developed. HENT: Head: Normocephalic and atraumatic. Eyes: Conjunctiva/sclera: Conjunctivae normal. Neck: Trachea: No tracheal deviation. Cardiovascular: Rate and Rhythm: Normal rate. Pulmonary: Effort: Pulmonary effort is normal. No respiratory distress. Abdominal: Palpations: Abdomen is soft. Rebound or guarding no tenderness Musculoskeletal: General: No deformity. Skin: General: Skin is warm and dry. Neurological: Mental Status: Patient is alert and oriented to person, place, and time, behavior normal. - Course Nursing assessment & vital signs reviewed: Yes Ordered Tests: Active Orders 24 hr Category Date Time Status IV Insertion STAT Care 10/07/22 14:05 Active BMP Stat Lab 10/07/22 13:58 Completed CBC W DIFF Stat Lab 10/07/22 13:58 Completed CULTURE,URINE Stat Lab 10/07/22 15:32 Ordered UA W/RFX UR CULTURE Stat Lab 10/07/22 13:46 Completed Medication Summary Discontinued Medications Generic Name Dose Route Start Last Admin Trade Name Freq PRN Reason Stop Dose Admin Sodium Chloride 1,000 mls @ 999 mls/hr 10/07/22 14:05 10/07/22 14:37 Sodium Chloride 0.9% 1000 Ml IV 10/07/22 15:05 999 mls/hr .Q1H1M STA Administration Sodium Chloride Confirm 10/07/22 14:36 Sodium Chloride 0.9% 1000 Ml Administered 10/07/22 14:37 Dose 1,000 mls @ ud .ROUTE .K-MED ONE Lab/Rad Data: Laboratory Result Diagrams 10/07/22 13:58 10/07/22 13:58 Laboratory Results 10/07/22 10/07/22 10/07/22 Range/Units 13:58 13:58 13:46 WBC 5.4 (4.0-10.5) x10^3/uL RBC 4.01 L (4.1-5.4) x10^6/uL Hgb 12.5 (12.0-16.0) g/dL Hct 37.9 (35-47) % MCV 94.5 (78-100) fL MCH 31.2 (26-32) pg MCHC 33.0 (32-36) g/dL RDW 13.5 (11.5-14.0) % Plt Count 167 (150-450) x10^3/uL MPV 10.3 (7.5-11.0) fL Gran % 74.1 H (36.0-66.0) % Immature Gran % (Auto) 1.1 H (0.00-0.4) % Nucleat RBC Rel Count 0.0 (0.00-0.1) % Eos # (Auto) 0.05 (0-0.5) x10^3/uL Immature Gran # (Auto) 0.06 H (0.00-0.03) x10^3u/L Absolute Lymphs (auto) 0.87 L (1.0-4.6) x10^3/uL Absolute Monos (auto) 0.39 (0.0-1.3) x10^3/uL Absolute Nucleated RBC 0.00 (0.00-0.01) x10^3u/L Lymphocytes % 16.1 L (24.0-44.0) % Monocytes % 7.2 (0.0-12.0) % Eosinophils % 0.9 (0.00-5.0) % Basophils % 0.6 (0.0-0.4) % Absolute Granulocytes 4.02 (1.4-6.9) x10^3/uL Basophils # 0.03 (0-0.4) x10^3/uL Sodium 139 (137-145) mmol/L Potassium 4.5 (3.5-5.1) mmol/L Chloride 110 H (98-107) mmol/L Carbon Dioxide 16 L* (22-30) mmol/L Anion Gap 17.5 H (5-15) MEQ/L BUN 30 H (7-17) mg/dL Creatinine 1.33 H (0.52-1.04) mg/dL Estimated GFR 42.3 ML/MIN Glucose 107 H (74-106) mg/dL Calcium 8.8 (8.4-10.2) mg/dL Urine Color Yellow (Yellow) Urine Appearance Clear (Clear) Urine pH 5.0 (4.6-8.0) Ur Specific Dana 1.015 (1.005-1.030) Urine Protein Negative (Negative) Urine Glucose (UA) Negative (Negative) mg/dL Urine Ketones Negative (Negative) Urine Blood Negative (Negative) Urine Nitrite Negative (Negative) Urine Bilirubin Negative (Negative) Urine Urobilinogen 0.2 (0.2) mg/dL Ur Leukocyte Esterase Small A (Negative) U Hyaline Cast (Auto) NONE SEEN (0-2) /LPF Urine Microscopic RBC 0-2 (0-5) /HPF Urine Microscopic WBC 3-5 (0-5) /HPF Ur Epithelial Cells None Seen (None Seen) /HPF Urine Bacteria None Seen (None Seen) /HPF Urine Culture Reflexed NO (NO) - Progress Progress: improved Progress Note: 10/07/22 15:01 Differential diagnosis includes UTI, infection, chronic kidney disease, short gut syndrome. -Patient given 1 L of fluid given her heart rate is 99, blood pressure 96 systolic. Patient feels much improved after this vital signs have improved. No fever here. -UA does show no signs of a UTI today. No nitrites, overwhelming leukocytes, blood. Plan to send for urine culture. -We are unable to find the UA report from 2 days ago at [facility]. Virginie acharya, low suspicion for infection given that UA shows no signs of infection today. I did discuss over the phone with patient's PCP, Dr. Hidalgo. She stated that patient could follow-up tomorrow with her if she did not need to be admitted to the hospital. They could follow-up on urine culture from [facility] at that point in time. We will also send urine culture here. -CBC shows no signs of infection today, no signs of acute renal failure, BMP at near baseline. Counseled pt/family regarding: lab results, diagnosis, need for follow-up - Departure Departure Disposition: Home Clinical Impression: Abdominal cramping, Dehydration Condition: Stable Critical Care Time: No Referrals: LLUVIA CHILDERS DO [Primary Care Provider] - Follow up/PCP as directed Instructions: Dehydration, Adult (DC)
[2022-10-07 16:01] VITALS: BP 127/68; PULSE 80; O2SAT 97
== END 2022-10-07 16:01 | disposition home or self-care (01) ==
LOC: ED 13:04
DX: R10.9 Unspecified abdominal pain (principal); E86.0 Dehydration; Z79.01 Long term (current) use of anticoagulants; Z79.899 Other long term (current) drug therapy
CPT/HCPCS: 36000; 36415; 80048; 81001; 85025; 87086; 96360; 99284; J1642

== ENCOUNTER 2022-10-30 18:36 | Emergency (ER) | payer MEDICARE ==
[2022-10-30 18:51] VITALS: TEMP 96.4
[2022-10-30 19:41] LABS: INFLUENZA A NEGATIVE (NEGATIVE); INFLUENZA B NEGATIVE (NEGATIVE); RESPIRATORY SYNCTIAL VIRUS NEGATIVE (NEGATIVE); SARS-CoV-2 Xpert Express NEGATIVE (NEGATIVE)
[2022-10-30 20:02] VITALS: BP 108/79; PULSE 98; RESP 16; O2SAT 98
--- NOTE | 2022-10-30 20:14 | ERPHSYRPT ---
- History of Present Illness Time Seen by Provider: 10/30/22 20:14 Source: patient Exam Limitations: no limitations Patient Subjective Stated Complaint: pt here for covid test, she states she was around someone with covid, Triage Nursing Assessment: pt alert, walked in, resp labored at times, skin w/d/p. has o2 at 3 lnc as per home, dry cough, co chills and headache Physician History: Patient is a 67-year-old female presents emergency department for evaluation of frontal headache dry cough sore throat and chills. Symptoms started approximately 2 to 3 days ago. Patient states that she has been exposed to COVID. Patient is here requesting a COVID test. No further intervention. Patient resting comfortably. Symptoms are mild to moderate in intensity. No specific worsening improving factors. No associated chest pain or shortness of breath. No nausea vomiting or diaphoresis. Patient afebrile. Patient otherwise feels well. She voices no other complaints or concerns at this time. Portions of this note were created with voice recognition technology. There may be grammatical, spelling, punctuation or sound alike errors Timing/Duration: today Severity: moderate Modifying Factors: Improves With: nothing Associated Symptoms: denies symptoms Allergies/Adverse Reactions: sumatriptan [From Imitrex] Allergy (Intermediate, Verified 10/30/22 18:52) Rash codeine Allergy (Mild, Verified 10/30/22 18:52) Rash MAKES SICK nitrofurantoin [From Macrobid] Allergy (Unknown, Verified 10/30/22 18:52) sulfamethoxazole [From Bactrim] Allergy (Unknown, Verified 10/30/22 18:52) trimethoprim [From Bactrim] Allergy (Unknown, Verified 10/30/22 18:52) sumatriptan succinate [From Imitrex] Allergy (Verified 10/30/22 18:52) morphine Adverse Reaction (Severe, Verified 10/30/22 18:52) Headache MIGRAINES fentanyl Adverse Reaction (Intermediate, Verified 10/30/22 18:52) Headache hydrocodone bitartrate [From Vicodin] Adverse Reaction (Mild, Verified 10/30/22 18:52) Vomiting hydromorphone [From Dilaudid] Adverse Reaction (Mild, Verified 10/30/22 18:52) pt states makes heache worse. Home Medications: ALPRAZolam 1 MG [Xanax 1 mg] 2 mg PO 1900 02/17/13 [History] Cetirizine HCl/Pseudoephedrine [Zyrtec-D Tablet] 1 each PO 02/03/16 [History] Aspirin 81 mg PO 09/11/16 [History] Levothyroxine Sodium 50 Mcg [Synthroid 50 Mcg] 50 mcg PO 07/06/17 [History] Linaclotide [Linzess] 290 mcg PO 10/07/17 [History] Dexlansoprazole [Dexilant] 60 mg PO 01/21/20 [History] Albuterol 2.5 mg/3 ml Neb [Proventil 2.5 mg/3 ml Neb] 2.5 mg IH QID 07/23/20 [History] dilTIAZem HCl [Diltiazem 24Hr ER (Cd)] 120 mg PO 09/29/21 [History] Omeprazole/Sodium Bicarbonate [Omeprazole-Bicarb 40-1,100 Cap] 1 cap PO 01/18/22 [History] Promethazine HCl 25 mg [Phenergan 25 mg] 25 mg PO BIDPRN PRN 01/18/22 [History] Apixaban [Eliquis] 5 mg PO 07/02/22 [History] Fluticasone/Umeclidin/Vilanter [Trelegy Ellipta 200-62.5-25] 1 each IH 07/02/22 [History] Prucalopride Succinate [Motegrity] 1 mg PO 07/02/22 [History] Rizatriptan Benzoate [Maxalt] 10 mg PO DAILY PRN 07/02/22 [History] Magnesium Hydroxide 30 ml [Milk of Magnesia 30 ml] 30 ml PO 09/08/22 [History] Magnesium Hydroxide 30 ml [Milk of Magnesia 30 ml] 60 ml PO 09/08/22 [History] Guaifenesin [Mucinex] 600 mg PO 09/09/22 [History] Cefdinir 300 mg PO DAILY 10/30/22 [History] Hx Tetanus, Diphtheria Vaccination/Date Given: No Hx Influenza Vaccination/Date Given: Yes Hx Pneumococcal Vaccination/Date Given: Yes Immunizations Up to Date: Yes Travel Risk - International Travel Have you traveled outside of the country in past 3 weeks: No - Coronavirus Screening Are you exhibiting any of the following symptoms?: Yes Symptoms: Shortness of Breath, Headaches/Body Aches/Fatigue Close contact with a COVID-19 positive Pt in past 14-21 Days: Yes - Vaccine Status Have 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 - Review of Systems Constitutional: No Symptoms, No Fever, No Chills Eyes: No Symptoms Ears, Nose, & Throat: No Symptoms Respiratory: No Symptoms, No Cough, No Dyspnea Cardiac: No Symptoms, No Chest Pain, No Edema, No Syncope Abdominal/Gastrointestinal: No Symptoms, No Abdominal Pain, No Nausea, No Vomiting, No Diarrhea Genitourinary Symptoms: No Symptoms, No Dysuria Musculoskeletal: No Symptoms, No Back Pain, No Neck Pain Skin: No Symptoms, No Rash Neurological: No Symptoms, No Dizziness, No Focal Weakness, No Sensory Changes Psychological: No Symptoms Endocrine: No Symptoms All Other Systems: Reviewed and Negative - Past Medical History Pertinent Past Medical History: Yes Neurological History: Migraines ENT History: Cataracts Cardiac History: No Pertinent History Respiratory History: Bronchitis, COPD, Pulmonary Embolism Endocrine Medical History: Hypothyroidism Musculoskeletal History: Osteoarthritis GI Medical History: GERD, Other History: Other Psycho-Social History: Anxiety, Panic Disorder Female Reproductive Disorders: No Pertinent History Other Medical History: frequent uti's, chronic pseudo obstruction, blood clot - Past Surgical History Past Surgical History: Yes Neuro Surgical History: No Pertinent History Cardiac: No Pertinent History Respiratory: No Pertinent History Gastrointestinal: Cholecystectomy, Other Genitourinary: No Pertinent History Musculoskeletal: No Pertinent History Female Surgical History: No Pertinent History Other Surgical History: all of large intestine removed and most of small intestines removed. - Social History Smoking Status: Never smoker Exposure to second hand smoke: No Alcohol Use: None Drug Use: none Patient Lives Alone: Yes Significant Family History: no pertinent family hx - Nursing Vital Signs Nursing Vital Signs: Initial Vital Signs Respiratory Rate 24 10/30/22 18:48 O2 Sat by Pulse Oximetry 97 10/30/22 18:48 Pain Scale Pain Intensity 7 - Physical Exam General Appearance: no apparent distress, alert Eye Exam: PERRL/EOMI, eyes nml inspection Ears, Nose, Throat Exam: normal ENT inspection, TMs normal, pharynx normal, moist mucous membranes Neck Exam: normal inspection, non-tender, supple, full range of motion Respiratory Exam: normal breath sounds, lungs clear, airway intact, No respiratory distress Cardiovascular Exam: regular rate/rhythm, normal heart sounds, normal peripheral pulses Gastrointestinal/Abdomen Exam: soft, normal bowel sounds, No tenderness, No mass Back Exam: normal inspection, normal range of motion, No CVA tenderness, No vertebral tenderness Extremity Exam: normal inspection, normal range of motion, pelvis stable Neurologic Exam: alert, 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, cooperative, normal mood/affect, nml cerebellar function, nml station & gait, sensation nml, No motor deficits Skin Exam: normal color, warm, dry, No rash Lymphatic Exam: No adenopathy SpO2 Interpretation: normal SpO2: 98 O2 Delivery: Room Air - Course Nursing assessment & vital signs reviewed: Yes Lab/Rad Data: Laboratory Results 10/30/22 Range/Units 19:02 Influenza Type A Ag NEGATIVE (NEGATIVE) Influenza Type B Ag NEGATIVE (NEGATIVE) RSV (PCR) NEGATIVE (NEGATIVE) SARS-CoV-2 (PCR) NEGATIVE (NEGATIVE) - Progress Progress: improved Progress Note: Patient is a 67-year-old female presents to our ED for COVID exposure. Patient has viral symptoms. Physical exam essentially nonremarkable. Patient requestin g COVID test only. Patient will be discharged home. Patient agrees to follow- up with her primary care doctor within 48 hours for evaluation. Portions of this note were created with voice recognition technology. There may be grammatical, spelling, punctuation or sound alike errors Complexity of problems addressed is low acute uncomplicated No critical care time Complexity of data analyzed and reviewed is limited. COVID test ordered and reviewed. COVID-negative. RSV negative influenza negative. Risk of complication and or risk morbidity/mortality of patient management is minimal. Symptomatic care only. COVID RSV flu negative. Vital stable. Patient discharged home. Time spent to discharge patient is approximately 10 minutes. Plan of care established for shared decision making. No social determinants of health present to impede follow-up. Portions of this note were created with voice recognition technology. There may be grammatical, spelling, punctuation or sound alike errors 10/30/22 20:19 Counseled pt/family regarding: lab results, diagnosis, need for follow-up - Departure Departure Disposition: Home Clinical Impression: Exposure to COVID-19 virus, Frontal headache, Viral syndrome Condition: Stable Critical Care Time: No Referrals: LLUVIA CHILDERS DO [Primary Care Provider] - Follow up/PCP as directed Additional Instructions: Discharge/Care Plan GEOVANNY FREY was seen on 10/30/22 in the Emergency Room. The patient was counseled regarding Diagnosis,Lab results, Imaging studies, need for follow up and when to return to the Emergency Room. Prescriptions given: Discharge Note I have spoken with the patient and/or caregivers. I have explained the patient's condition, diagnosis and treatment plan based on the information available to me at this time. I have answered the patient's and/or caregiver's questions and addressed any concerns. The patient and/or caregivers have as good understanding of the patient's diagnosis, condition and treatment plan as can be expected at this point. The vital signs have been stable. The patient's condition is stable and appropriate for discharge from the emergency department. The patient will pursue further outpatient evaluation with the primary care physician or other designated or consulting physician as outlined in the discharge instructions. The patient and/or caregivers are agreeable to this plan of care and follow-up instructions have been explained in detail. The patient and/or caregivers have received these instruction. The patient/and or caregivers are aware that any significant change in condition or worsening of symptoms should prompt an immediate return to this or the closest emergency department or call 911.
== END 2022-10-30 20:21 | disposition home or self-care (01) ==
LOC: ED 18:36
DX: B34.9 Viral infection, unspecified (principal); R51.9 Headache, unspecified; Z20.822 Contact with and (suspected) exposure to COVID-19; R05.1 Acute cough; J02.9 Acute pharyngitis, unspecified; Z79.01 Long term (current) use of anticoagulants; Z79.899 Other long term (current) drug therapy
CPT/HCPCS: 0241U; 99282

== ENCOUNTER 2022-11-28 15:53 | Observation (INO) | payer MEDICARE ==
[2022-11-28] MEDS ORDERED: Sodium Chloride 0.9% 1000 ML 1,000 ML IV STA (16:03)
[2022-11-28] MEDS ORDERED: Sodium Chloride 0.9% 1000 ML 1,000 ML ONE (16:19)
--- NOTE | 2022-11-28 16:23 | XRAY ---
CLINICAL HISTORY:WEAKNESS, UNSTEADY COMPARISON:Compared to the previous study dated 11/08/2022. TECHNIQUE:An axial non-contrast CT scan of the brain was performed from the skull base to the high parietal region with reformated images. FINDINGS: The visualized brain parenchyma shows a normal appearance. [place]-white matter differentiation is maintained. No midline shifts or deformity. No intracerebral or extra axial hematoma. Normal size and configuration of the cerebral ventricles. Normal CT appearance of the posterior fossa structures namely the cerebellar hemispheres, brainstem, and cerebellar peduncles. The IACs are unremarkable. The cerebellopontine angles are clear. The osseous structures are unremarkable. IMPRESSION: No acute intracranial abnormality. CT may not detect early ischemic changes. MRI with DWI is advised if clinically warranted. ER was called at [phone] Ext: [phone] at 03:18 PM AUDIOLOGIST, and Sameer was informed that the Stroke is negative. Electronically Signed by: Evelyne Razo MD. (11/28/2022 15:22:45 AUDIOLOGIST)
[2022-11-28 17:09] LABS: Absolute Neutrophil Ct (ANC) 4.42 x10^3/uL (1.4-6.9); BASOPHIL % 0.5 % (0.0-0.4); Basophil (Absolute #) 0.03 x10^3/uL (0-0.4); Eosinophil % 0.9 % (0.00-5.0); Eosinophil (Absolute #) 0.05 x10^3/uL (0-0.5); Hematocrit 39.5 % (35-47); Hemoglobin 13.1 g/dL (12.0-16.0); IMMATURE GRAN # 0.04 x10^3u/L (0.00-0.03); IMMATURE GRAN % 0.7 % (0.00-0.4); Lymphocyte (Absolute #) 0.92 x10^3/uL (1.0-4.6); Lymphocytes % 15.7 % (24.0-44.0); Mean Cell Volume 95.6 fL (78-100); Mean Corpuscular Hemoglobin 31.7 pg (26-32); Mean Corpuscular Hgb Concent. 33.2 g/dL (32-36); Mean Platelet Volume 10.6 fL (7.5-11.0); Monocyte (Absolute #) 0.39 x10^3/uL (0.0-1.3); Monocytes % 6.7 % (0.0-12.0); Neutrophil % 75.5 % (36.0-66.0); Platelet Count 181 x10^3/uL (150-450); Red Blood Count 4.13 x10^6/uL (4.1-5.4); Red Cell Distribution Width 12.2 % (11.5-14.0); White Blood Count 5.9 x10^3/uL (4.0-10.5)
[2022-11-28 17:22] LABS: ALBUMIN 4.2 g/dL (3.5-5.0); ANION GAP 11.4 MEQ/L (5-15); BILIRUBIN,TOTAL 0.5 mg/dL (0.2-1.3); Creatinine 1 1.1 mg/dL (0.52-1.04); EST GLOMERULAR FILTRATION RATE 52.7 ML/MIN; INR 1.01 (0.8-3.0); PTT 45.2 SECONDS (25.1-36.5); Total Protein 7.1 g/dL (6.3-8.2)
--- NOTE | 2022-11-28 18:35 | XRAY ---
CLINICAL HISTORY:stroke COMPARISON:None. TECHNIQUE:A CT scan of the neck was performed with the administration of intravenous contrast. Sagittal and coronal reconstructions were obtained. FINDINGS: Normal opacification of the cervical segments of the ICAs with no significant stenosis or occlusion. The V1 through V3 segments of both vertebral arteries are patent and of average caliber with normal contrast enhancement. No significant stenosis or occlusion. Normal CT appearance of the thyroid gland. Normal CT appearance of the salivary glands. Normal appearance of the muscles of the neck. No supra or infraglottic laryngeal masses are seen. No pathologically enlarged cervical lymph nodes. Fibrous bands are seen in both lung apices. There are multiple prominent lymph nodes in the visualized mediastinum. IMPRESSION: Normal opacification of the cervical segements of the ICAs and vertebral arteries with no significant stenosis or occlusion. No abnormal enhancing masses. Portacath noted in the right upper hemithorax. Electronically Signed by: Evelyne Razo MD. (11/28/2022 17:34:26 MAKING LINE WORKER)
--- NOTE | 2022-11-28 18:51 | XRAY ---
CLINICAL HISTORY:stroke COMPARISON:None. TECHNIQUE:Contiguous, multislice, CT angiography of the head was performed with and without contrast in the axial plane with multiplanar reconstructions including the MIP technique after IV contrast injection. FINDINGS: Normal course and caliber of distal internal carotid arteries and their branches on both sides with no detectable occlusion or significant luminal stenosis. Within normal opacification of the cerebral arteries forming the [place] with no significant stenosis or arterial occlusion. Normal CTA appearance of vertebro-basilar system with no significant stenosis or extrinsic compression noted. No detectable intracranial aneurysms or arteriovenous malformation. No detectable acute intracranial hemorrhage or established acute territory infarction. IMPRESSION: 1. Grossly unremarkable CT Angiography of the cerebral arteries. 2. No detectable acute intracranial hemorrhage or established acute territory infarction. Electronically Signed by: Evelyne Razo MD. (11/28/2022 17:50:06 VINYL WELDER AND FABRICATOR)
--- NOTE | 2022-11-28 19:49 | ERPHSYRPT ---
- History of Present Illness Time Seen by Provider: 11/28/22 16:16 Source: patient, family, EMS Patient Subjective Stated Complaint: Pt has right sided weakness, slurring words Triage Nursing Assessment: Pt brought to the ER by her niece after medics were called due to a possible stroke, pt refused to come to the hospital in the ambulance but came by POV with her niece, EMS stated that pt had right sided defecits upon their arrival and was finding it hard to understand her, when pt arrived at the ER she was immediately taken to CT and needed total assistance transfering from wheelchair and the CT bed, pt's words were garbled and slurred but later resolved, pt's right leg had been turning inward but later resolved, pt was unable to lift her right arm and it later resolved, pulses normal, no new difficulties breathing, skin n/w/d with mild edema to the ashley lower legs and feet, pt appears to be returning to her normal baseline Physician History: 67-year-old female with multiple medical problems including COPD, atrial fibrillation on Eliquis, hypothyroidism, GERD, recurrent UTI, migraines presented in the ER with chief complaint of strokelike symptoms. As per report patient was found to have right upper and lower extremity weakness, facial droop and slurring of speech around 1430 by daughter. Last well-known is 2 days ago. Patient initially refused to come by EMS as she was thinking it is her migraine and has taken Maxalt and feeling better. Patient is unable to have any weightbearing on right lower extremity. She is able to lift her right upper extremity for couple of seconds against gravity. Not able to lift her right lower extremity. Denies any blurry vision, chest pain palpitations or shortness of breath. No abdominal pain nausea or vomiting reported. Patient is not a good historian and history is limited Allergies/Adverse Reactions: sumatriptan [From Imitrex] Allergy (Intermediate, Verified 11/28/22 16:36) Rash codeine Allergy (Mild, Verified 11/28/22 16:36) Rash MAKES SICK nitrofurantoin [From Macrobid] Allergy (Unknown, Verified 11/28/22 16:36) sulfamethoxazole [From Bactrim] Allergy (Unknown, Verified 11/28/22 16:36) trimethoprim [From Bactrim] Allergy (Unknown, Verified 11/28/22 16:36) sumatriptan succinate [From Imitrex] Allergy (Verified 11/28/22 16:36) morphine Adverse Reaction (Severe, Verified 11/28/22 16:36) Headache MIGRAINES fentanyl Adverse Reaction (Intermediate, Verified 11/28/22 16:36) Headache hydrocodone bitartrate [From Vicodin] Adverse Reaction (Mild, Verified 11/28/22 16:36) Vomiting hydromorphone [From Dilaudid] Adverse Reaction (Mild, Verified 11/28/22 16:36) pt states makes heache worse. Home Medications: ALPRAZolam 1 MG [Xanax 1 mg] 1 mg PO TID 02/17/13 [History] Aspirin 81 mg PO DAILY 09/11/16 [History] Levothyroxine Sodium 50 Mcg [Synthroid 50 Mcg] 50 mcg PO DAILY 07/06/17 [History] Linaclotide [Linzess] 290 mcg PO DAILY 10/07/17 [History] Dexlansoprazole [Dexilant] 60 mg PO DAILY 01/21/20 [History] Albuterol 2.5 mg/3 ml Neb [Proventil 2.5 mg/3 ml Neb] 2.5 mg IH QID 07/23/20 [History] dilTIAZem HCl [Diltiazem 24Hr ER (Cd)] 120 mg PO DAILY 09/29/21 [History] Promethazine HCl 25 mg [Phenergan 25 mg] 25 mg PO BIDPRN PRN 01/18/22 [History] Apixaban [Eliquis] 5 mg PO BID 07/02/22 [History] Fluticasone/Umeclidin/Vilanter [Trelegy Ellipta 200-62.5-25] 1 each IH DAILY 07/02/22 [History] Rizatriptan Benzoate [Maxalt] 10 mg PO DAILY PRN 07/02/22 [History] Cetirizine HCl [Zyrtec] 1 tab PO DAILY 11/08/22 [History] Cyanocobalamin (Vitamin B-12) [Vitamin B12] 1,000 mcg PO DAILY 11/08/22 [History] Magnesium Oxide 400 mg [Mag-Ox 400] 1 tab PO DAILY 11/08/22 [History] Sodium Bicarbonate 2 tab PO BID 11/08/22 [History] Omeprazole/Sodium Bicarbonate [Omeprazole-Bicarb 40-1,100 Cap] 1 each PO HS 11/28/22 [History] Prucalopride Succinate [Motegrity] 2 mg PO DAILY 11/28/22 [History] Hx Tetanus, Diphtheria Vaccination/Date Given: No Hx Influenza Vaccination/Date Given: Yes Hx Pneumococcal Vaccination/Date Given: Yes Travel Risk - International Travel Have you traveled outside of the country in past 3 weeks: No - Coronavirus Screening Are you exhibiting any of the following symptoms?: No Close contact with a COVID-19 positive Pt in past 14-21 Days: No - Vaccine Status Have you recieved a 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: Yes Saw Setter: Unknown - Vaccination Dates Dates if Unknown: ? - Review of Systems Constitutional: Weakness Eyes: No Symptoms Ears, Nose, & Throat: No Symptoms Respiratory: No Symptoms Cardiac: No Symptoms Abdominal/Gastrointestinal: No Symptoms Genitourinary Symptoms: No Symptoms Skin: No Symptoms Neurological: Focal Weakness, Gait Changes, Headache, Paralysis, Sensory Changes, Speech Changes Endocrine: No Symptoms Hematologic/Lymphatic: No Symptoms - Past Medical History Pertinent Past Medical History: Yes Neurological History: Migraines ENT History: Cataracts Cardiac History: No Pertinent History Respiratory History: Bronchitis, COPD, Pulmonary Embolism Endocrine Medical History: Hypothyroidism Musculoskeletal History: Osteoarthritis GI Medical History: GERD, Other History: Other Psycho-Social History: Anxiety, Panic Disorder Female Reproductive Disorders: No Pertinent History Other Medical History: frequent uti's, chronic pseudo obstruction, blood clot - Past Surgical History Past Surgical History: Yes Neuro Surgical History: No Pertinent History Cardiac: No Pertinent History Respiratory: No Pertinent History Gastrointestinal: Cholecystectomy, Other Genitourinary: No Pertinent History Musculoskeletal: No Pertinent History Female Surgical History: No Pertinent History Other Surgical History: all of large intestine removed and most of small intestines removed. - Social History Smoking Status: Never smoker Exposure to second hand smoke: No Alcohol Use: None Drug Use: none Patient Lives Alone: Yes Significant Family History: no pertinent family hx - Nursing Vital Signs Nursing Vital Signs: Initial Vital Signs Pulse Rate 87 11/28/22 16:05 Respiratory Rate 27 H 11/28/22 16:05 Blood Pressure 119/85 11/28/22 16:05 O2 Sat by Pulse Oximetry 97 11/28/22 16:05 Pain Scale Pain Intensity 0 - [place] Coma Scale Best Eye Response ([place]): (4) open spontaneously Best Verbal Response ([place]): (5) oriented Best Motor Response ([place]): (6) obeys commands [place] Total: 15 - Physical Exam General Appearance: no apparent distress, alert, anxiety Eye Exam: bilateral eye: normal inspection, PERRL, EOMI Ears, Nose, Throat Exam: normal ENT inspection, TMs normal, pharynx normal, moist mucous membranes Neck Exam: normal inspection, non-tender, supple, full range of motion Respiratory: normal breath sounds, lungs clear Cardiovascular: regular rate/rhythm, normal heart sounds Gastrointestinal: soft, normal bowel sounds, No tenderness Back Exam: normal inspection, No CVA tenderness Extremity Exam: normal inspection, pelvis stable Mental Status: alert, 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, 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 Exam: normal hearing, PERRL, facial asymmetry, facial droop, tongue deviat ion to R, No normal speech (Mild slurring) Coordination/Gait: No normal finger to nose (Abnormal on the right), No normal gait, No normal cerebellar function Motor/Sensory: weak motor strength RUE, weak motor strength RLE DTR: bicep (R): 2+, bicep (L): 2+, knee (R): 2+, knee (L): 2+ Skin Exam: normal color SpO2 Interpretation: normal SpO2: 96 O2 Delivery: Room Air - Course EKG Interpreted by Me: RATE (84), Sinus Rhythm, Left [place] Deviation, NORMAL INTERVALS, Non-specific ST Changes Ordered Tests: Active Orders 24 hr Category Date Time Status Bedrest ROUTINE Activity 11/28/22 20:16 Active Up With Assistance ROUTINE Activity 11/28/22 20:16 Active Call Admit Doctor for Orders ON ADMISSION Care 11/28/22 20:16 Active Furnace Setter ROUTINE Care 11/28/22 20:16 Active Code Status Order ROUTINE Care 11/28/22 20:16 Active Fall Protocol Q1H Care 11/28/22 20:16 Active POCT Glucose Check ACHS Care 11/28/22 20:[address] in Observation ROUTINE Care 11/28/22 20:16 Active CULTURE,URINE Stat Lab 11/28/22 19:26 Received TROPONIN Q4H Lab 11/28/22 20:14 Completed TROPONIN Q4H Lab 11/29/22 00:17 Completed UA W/RFX UR CULTURE Stat Lab 11/28/22 19:26 Completed Respiratory Therapy Consult ONCE RT 11/28/22 20:16 Completed Medication Summary Generic Name Dose Route Start Last Admin Trade Name Freq PRN Reason Stop Dose Admin Albuterol Sulfate 2.5 mg 11/29/22 07:00 11/29/22 18:47 Albuterol Sulfate 2.5 Mg/3 Ml Neb IH 12/29/22 06:59 2.5 mg QIDRT JENNIFER Administration Albuterol Sulfate 4 puff 11/28/22 21:54 Albuterol Common Canister Inhaler 12/28/22 21:53 Q4H PRN PRN SHORTNESS OF BREATH/WHEEZING Alprazolam 1 mg 11/29/22 10:00 11/29/22 15:02 Alprazolam 1 Mg Tablet PO 12/29/22 09:59 1 mg TID JENNIFER Administration Apixaban 5 mg 11/29/22 10:00 11/29/22 09:33 Apixaban 2.5 Mg Tablet PO 12/29/22 09:59 5 mg BID JENNIFER Administration Aspirin 81 mg 11/29/22 10:00 11/29/22 09:33 Aspirin 81 Mg Tablet.Ec PO 12/29/22 09:59 81 mg DAILY JENNIFER Administration Cyanocobalamin 1,000 mcg 11/29/22 10:00 11/29/22 09:33 Cyanocobalamin 500 Mcg Tablet PO 12/29/22 09:59 1,000 mcg DAILY JENNIFER Administration Diltiazem HCl 120 mg 11/29/22 10:00 11/29/22 09:32 Diltiazem Hcl Cd 120 Mg Cap.Sr.24h PO 12/29/22 09:59 120 mg DAILY JENNIFER Administration Ceftriaxone Sodium/Dextrose 1 g in 50 mls @ 100 mls/hr 11/29/22 10:00 11/29/22 09:32 Rocephin 1 Gm-D5w 50 Ml Bag IV 12/02/22 09:59 100 mls/hr Q24H10 JENNIFER Administration Levothyroxine Sodium 50 mcg 11/29/22 10:00 11/29/22 09:33 Levothyroxine Sodium 50 Mcg Tablet PO 12/29/22 09:59 50 mcg DAILY JENNIFER Administration Loratadine 10 mg 11/29/22 10:00 11/29/22 09:33 Loratadine 10 Mg Tablet PO 12/29/22 09:59 10 mg DAILY JENNIFER Administration Magnesium Oxide 400 mg 11/29/22 10:00 11/29/22 09:33 Magnesium Oxide 400 Mg Tablet PO 12/29/22 09:59 400 mg DAILY JENNIFER Administration Miscellaneous Information 1 each 11/29/22 07:45 Medication Intervention 1 Each Each 12/29/22 07:44 .RT TO CHECK JENNIFER Miscellaneous Information 1 each 11/29/22 07:45 Medication Intervention 1 Each Each 12/29/22 07:44 .RN TO CHECK JENNIFER Miscellaneous Information 1 each 11/29/22 07:45 Medication Intervention 1 Each Each 12/29/22 07:44 .RN TO CHECK JENNIFER Rizatriptan 10mg 1 each 11/29/22 10:05 11/29/22 10:11 Tablet PO 12/29/22 10:04 1 each DAILY PRN PRN Administration MIGRAINE Pantoprazole Sodium 40 mg 11/29/22 10:00 11/29/22 09:33 Protonix (Pantoprazole) 40 Mg Tablet PO 12/29/22 09:59 40 mg DAILY JENNIFER Administration Pantoprazole Sodium 40 mg 11/29/22 22:00 Protonix (Pantoprazole) 40 Mg Tablet PO 12/29/22 21:59 HS JENNIFER Promethazine HCl 25 mg 11/28/22 22:45 11/28/22 22:54 Promethazine Hcl 25 Mg Tablet PO 12/28/22 22:44 25 mg BIDPRN PRN Administration NAUSEA Sodium Bicarbonate 1,300 mg 11/29/22 10:00 11/29/22 09:34 Sodium Bicarbonate 650 Mg Tablet PO 12/29/22 09:59 1,300 mg BID JENNIFER Administration Discontinued Medications Generic Name Dose Route Start Last Admin Trade Name Freq PRN Reason Stop Dose Admin Albuterol/Ipratropium Confirm 11/29/22 07:21 Ipratropium/Albuterol Sulfate 3 Ml Ampul.Neb Administered 11/29/22 07:22 Dose 3 ml IH .STK-MED ONE Apixaban Confirm 11/28/22 22:52 Apixaban 2.5 Mg Tablet Administered 11/28/22 22:53 Dose 5 mg .ROUTE .STK-MED ONE Atorvastatin Calcium 40 mg 11/28/22 20:16 11/29/22 03:51 Atorvastatin Calcium 40 Mg Tablet PO 11/28/22 20:17 Not Given STAT STA Sodium Chloride 1,000 mls @ 999 mls/hr 11/28/22 16:03 11/28/22 18:27 Sodium Chloride 0.9% 1000 Ml IV 11/28/22 17:03 Infused .Q1H1M STA Infusion Sodium Chloride Confirm 11/28/22 16:19 Sodium Chloride 0.9% 1000 Ml Administered 11/28/22 16:20 Dose 1,000 mls @ ud .ROUTE .STK-MED ONE Miscellaneous Information 1 each 11/29/22 07:45 Medication Intervention 1 Each Each 12/29/22 07:44 .RN TO CHECK [facility] Non-Formulary Medication 5 mg 11/29/22 10:00 11/28/22 22:57 Apixaban [Eliquis] PO 12/29/22 09:59 5 mg BID JENNIFER Administration Lab/Rad Data: Laboratory Result Diagrams 11/28/22 17:06 11/28/22 17:06 Laboratory Results 11/28/22 11/28/22 11/28/22 Range/Units 19:36 19:26 17:06 WBC (4.0-10.5) x10^3/uL RBC (4.1-5.4) x10^6/uL Hgb (12.0-16.0) g/dL Hct (35-47) % MCV (78-100) fL MCH (26-32) pg MCHC (32-36) g/dL RDW (11.5-14.0) % Plt Count (150-450) x10^3/uL MPV (7.5-11.0) fL Gran % (36.0-66.0) % Immature Gran % (Auto) (0.00-0.4) % Nucleat RBC Rel Count (0.00-0.1) % Eos # (Auto) (0-0.5) x10^3/uL Immature Gran # (Auto) (0.00-0.03) x10^3u/L Absolute Lymphs (auto) (1.0-4.6) x10^3/uL Absolute Monos (auto) (0.0-1.3) x10^3/uL Absolute Nucleated RBC (0.00-0.01) x10^3u/L Lymphocytes % (24.0-44.0) % Monocytes % (0.0-12.0) % Eosinophils % (0.00-5.0) % Basophils % (0.0-0.4) % Absolute Granulocytes (1.4-6.9) x10^3/uL Basophils # (0-0.4) x10^3/uL PT (9.4-12.5) SECONDS INR (0.8-3.0) APTT (25.1-36.5) SECONDS Sodium (137-145) mmol/L Potassium (3.5-5.1) mmol/L Chloride (98-107) mmol/L Carbon Dioxide (22-30) mmol/L Anion Gap (5-15) MEQ/L BUN (7-17) mg/dL Creatinine (0.52-1.04) mg/dL Estimated GFR ML/MIN Glucose (74-106) mg/dL POC Glucometer (74 to 106) mg/dL Lactic Acid (0.4-2.0) Calcium (8.4-10.2) mg/dL Total Bilirubin (0.2-1.3) mg/dL AST (14-36) U/L ALT (0-35) U/L Alkaline Phosphatase (38-126) U/L Troponin I < 0.012 (0.000-0.034) ng/mL Serum Total Protein (6.3-8.2) g/dL Albumin (3.5-5.0) g/dL Urine Color Yellow (Yellow) Urine Appearance Clear (Clear) Urine pH 6.0 (4.6-8.0) Ur Specific [place] >=1.030 A (1.005-1.030) Urine Protein Negative (Negative) Urine Glucose (UA) Negative (Negative) mg/dL Urine Ketones Negative (Negative) Urine Blood Small A (Negative) Urine Nitrite Negative (Negative) Urine Bilirubin Negative (Negative) Urine Urobilinogen 1.0 A (0.2) mg/dL Ur Leukocyte Esterase Moderate A (Negative) U Hyaline Cast (Auto) NONE SEEN (0-2) /LPF Urine Microscopic RBC 3-5 (0-5) /HPF Urine Microscopic WBC 11-20 A (0-5) /HPF Ur Epithelial Cells None Seen (None Seen) /HPF Urine Bacteria Many A (None Seen) /HPF Urine Culture Reflexed YES (NO) C. difficile Screen NEGATIVE (NEGATIVE) C.difficile 027-NAP1-B1 PRESUMPTIVE NEGATIVE (NEGATIVE) 11/28/22 11/28/22 11/28/22 Range/Units 17:06 17:06 17:06 WBC 5.9 (4.0-10.5) x10^3/uL RBC 4.13 (4.1-5.4) x10^6/uL Hgb 13.1 (12.0-16.0) g/dL Hct 39.5 (35-47) % MCV 95.6 (78-100) fL MCH 31.7 (26-32) pg MCHC 33.2 (32-36) g/dL RDW 12.2 (11.5-14.0) % Plt Count 181 (150-450) x10^3/uL MPV 10.6 (7.5-11.0) fL Gran % 75.5 H (36.0-66.0) % Immature Gran % (Auto) 0.7 H (0.00-0.4) % Nucleat RBC Rel Count 0.0 (0.00-0.1) % Eos # (Auto) 0.05 (0-0.5) x10^3/uL Immature Gran # (Auto) 0.04 H (0.00-0.03) x10^3u/L Absolute Lymphs (auto) 0.92 L (1.0-4.6) x10^3/uL Absolute Monos (auto) 0.39 (0.0-1.3) x10^3/uL Absolute Nucleated RBC 0.00 (0.00-0.01) x10^3u/L Lymphocytes % 15.7 L (24.0-44.0) % Monocytes % 6.7 (0.0-12.0) % Eosinophils % 0.9 (0.00-5.0) % Basophils % 0.5 (0.0-0.4) % Absolute Granulocytes 4.42 (1.4-6.9) x10^3/uL Basophils # 0.03 (0-0.4) x10^3/uL PT 11.0 (9.4-12.5) SECONDS INR 1.01 (0.8-3.0) APTT 45.2 H (25.1-36.5) SECONDS Sodium 140 (137-145) mmol/L Potassium 4.0 (3.5-5.1) mmol/L Chloride 113 H (98-107) mmol/L Carbon Dioxide 19 L (22-30) mmol/L Anion Gap 11.4 (5-15) MEQ/L BUN 24 H (7-17) mg/dL Creatinine 1.10 H (0.52-1.04) mg/dL Estimated GFR 52.7 ML/MIN Glucose 100 (74-106) mg/dL POC Glucometer (74 to 106) mg/dL Lactic Acid (0.4-2.0) Calcium 9.0 (8.4-10.2) mg/dL Total Bilirubin 0.50 (0.2-1.3) mg/dL AST 22 (14-36) U/L ALT 17 (0-35) U/L Alkaline Phosphatase 98 (38-126) U/L Troponin I (0.000-0.034) ng/mL Serum Total Protein 7.1 (6.3-8.2) g/dL Albumin 4.2 (3.5-5.0) g/dL Urine Color (Yellow) Urine Appearance (Clear) Urine pH (4.6-8.0) Ur Specific [place] (1.005-1.030) Urine Protein (Negative) Urine Glucose (UA) (Negative) mg/dL Urine Ketones (Negative) Urine Blood (Negative) Urine Nitrite (Negative) Urine Bilirubin (Negative) Urine Urobilinogen (0.2) mg/dL Ur Leukocyte Esterase (Negative) U Hyaline Cast (Auto) (0-2) /LPF Urine Microscopic RBC (0-5) /HPF Urine Microscopic WBC (0-5) /HPF Ur Epithelial Cells (None Seen) /HPF Urine Bacteria (None Seen) /HPF Urine Culture Reflexed (NO) C. difficile Screen (NEGATIVE) C.difficile 027-NAP1-B1 (NEGATIVE) 11/28/22 11/28/22 Range/Units 16:17 16:03 WBC (4.0-10.5) x10^3/uL RBC (4.1-5.4) x10^6/uL Hgb (12.0-16.0) g/dL Hct (35-47) % MCV (78-100) fL MCH (26-32) pg MCHC (32-36) g/dL RDW (11.5-14.0) % Plt Count (150-450) x10^3/uL MPV (7.5-11.0) fL Gran % (36.0-66.0) % Immature Gran % (Auto) (0.00-0.4) % Nucleat RBC Rel Count (0.00-0.1) % Eos # (Auto) (0-0.5) x10^3/uL Immature Gran # (Auto) (0.00-0.03) x10^3u/L Absolute Lymphs (auto) (1.0-4.6) x10^3/uL Absolute Monos (auto) (0.0-1.3) x10^3/uL Absolute Nucleated RBC (0.00-0.01) x10^3u/L Lymphocytes % (24.0-44.0) % Monocytes % (0.0-12.0) % Eosinophils % (0.00-5.0) % Basophils % (0.0-0.4) % Absolute Granulocytes (1.4-6.9) x10^3/uL Basophils # (0-0.4) x10^3/uL PT (9.4-12.5) SECONDS INR (0.8-3.0) APTT (25.1-36.5) SECONDS Sodium (137-145) mmol/L Potassium (3.5-5.1) mmol/L Chloride (98-107) mmol/L Carbon Dioxide (22-30) mmol/L Anion Gap (5-15) MEQ/L BUN (7-17) mg/dL Creatinine (0.52-1.04) mg/dL Estimated GFR ML/MIN Glucose (74-106) mg/dL POC Glucometer 92 (74 to 106) mg/dL Lactic Acid 1.1 (0.4-2.0) Calcium (8.4-10.2) mg/dL Total Bilirubin (0.2-1.3) mg/dL AST (14-36) U/L ALT (0-35) U/L Alkaline Phosphatase (38-126) U/L Troponin I (0.000-0.034) ng/mL Serum Total Protein (6.3-8.2) g/dL Albumin (3.5-5.0) g/dL Urine Color (Yellow) Urine Appearance (Clear) Urine pH (4.6-8.0) Ur Specific [place] (1.005-1.030) Urine Protein (Negative) Urine Glucose (UA) (Negative) mg/dL Urine Ketones (Negative) Urine Blood (Negative) Urine Nitrite (Negative) Urine Bilirubin (Negative) Urine Urobilinogen (0.2) mg/dL Ur Leukocyte Esterase (Negative) U Hyaline Cast (Auto) (0-2) /LPF Urine Microscopic RBC (0-5) /HPF Urine Microscopic WBC (0-5) /HPF Ur Epithelial Cells (None Seen) /HPF Urine Bacteria (None Seen) /HPF Urine Culture Reflexed (NO) C. difficile Screen (NEGATIVE) C.difficile 027-NAP1-B1 (NEGATIVE) - Progress Progress: improved, re-examined Progress Note: 11/28/22 19:50 67-year-old female with multiple medical problems including COPD, atrial fibrillation on Eliquis, hypothyroidism, GERD, recurrent UTI, migraines presented in the ER with chief complaint of strokelike symptoms. As per report patient was found to have right upper and lower extremity weakness, facial droop and slurring of speech around 1430 by daughter. Last well-known is 2 days ago. Patient initially refused to come by EMS as she was thinking it is her migraine and has taken Maxalt and feeling better. Patient is unable to have any weightbearing on right lower extremity. She is able to lift her right upper extremity for couple of seconds against gravity. Not able to lift her right lower extremity. Denies any blurry vision, chest pain palpitations or shortness of breath. No abdominal pain nausea or vomiting reported. Patient is not a good historian and history is limited Patient has initially slurring of speech and facial droop on the right side and mild movement against gravity of the right upper extremity and drifting on the right lower extremity. She is made stroke activate with prompt CT head is o btained. It improved quickly and by the time patient was seen by neurologist or slurring of speech and facial asymmetry is improved. Also has improvement in right upper and lower extremity weakness. Has NIH SS of 6 on repeated evaluation which is improved from 10. Neurology has evaluated and patient has negative CT head, baseline work-up fairly unremarkable. EKG normal sinus rhythm. Patient is not in the window for any kind of intervention and also she is on Eliquis which is another contr aindication for tPA. Patient is recommended to have CTA head and neck which are obtained and are negative for large vessel occlusion. Patient is recommended to have routine stroke work-up including MRI, echo, A1c and started on statin. Patient is able to ambulate in the ER and has mild weightbearing on right lower extremity. She clear speech and swallow eval in the ER and able to drink. I have discussed with Dr. Loo, hospitalist, reviewed history, work-up and patient is accepted for admission. Have discussed the plan of admission with patient and she agrees with it. 11/28/22 19:[address] Peterson, Other (Telemetry neuro Dr. Melara and hospitalist Dr. Loo) Will see patient in: hospital (observation) Counseled pt/family regarding: lab results, diagnosis, rad results Medical Desision Making - Independent Historian Additional History obtained from: Child, Skilled Laborer/EMT - Discussion of managment Care discussed with:: specialist (Dr. Melara neurologist and Dr. Loo hospitalist) Reviewed:: Test results, Need for additional workup Agreed on:: Treatment plan, place in obs Will see patient: in hospital - Diagnostic Testing Diagnostic test were ordered, analyzed, and reviewed by me: Yes Radiological Interpretation: Reviewed by me, Teleradiologist Report - Risk of complications The pt has a high risk of morbidity or mortality based on: Decision regarding hospitilization or escalation of hosp level of care - Departure Departure Disposition: Observation Clinical Impression: TIA (transient ischemic attack) Condition: Stable Critical Care Time: Yes Critical Care Time(excluding separately billable procedures): Critical 30-74 mins
[2022-11-28 20:01] LABS: ADD URINE CULTURE? YES (NO); Appearance Clear (Clear); Bacteria Many /HPF (None Seen); Bilirubin Negative (Negative); Blood Small (Negative); Epithelial Cells None Seen /HPF (None Seen); Glucose, Urine Negative (Negative); Hyaline Casts NONE SEEN /LPF (0-2); Ketones Negative (Negative); Leukocyte Esterase Moderate (Negative); Nitrite Negative (Negative); Protein,Urine Dip Negative (Negative); Specific Gravity >=1.030 (1.005-1.030)
[2022-11-28] MEDS ORDERED: LIPITOR 40MG PO STA (20:16)
[2022-11-28 20:22] LABS: 027 TOX PROD PRESUMPTIVE NEGATIVE (NEGATIVE); TOXIGENIC C. DIFF ORG NEGATIVE (NEGATIVE)
--- NOTE | 2022-11-28 21:24 | PCM.HP ---
History of Present Illness - Chief Complaint Chief Complaint: TIA History of Present Illness: is a 67 year old female with a PMH of COPD, atrial fib on Eliquis, chronic migranes who presented tot the ED with stroke-like symptoms, including right sided weakness. Neurology evaluated the patient and had a negative initial head CT and a negative CTA of the head as well. Upon my interview, patient reports her symptoms are improving and weakness has resolved. No issues with swallowing, no vision issues, nausea, vomiting, fevers. She is able to ambulate as well. - Review of Systems Constitutional: No Fever, No Chills Eyes: No Symptoms Ears, Nose, & Throat: No Symptoms Respiratory: No Cough, No Short Of Breath Cardiac: No Chest Pain, No Edema, No Syncope Abdominal/Gastrointestinal: No Abdominal Pain, No Nausea, No Vomiting, No Diarrhea Genitourinary Symptoms: No Dysuria Musculoskeletal: No Back Pain, No Neck Pain Skin: No Rash Neurological: No Dizziness, No Focal Weakness, No Sensory Changes Psychological: No Symptoms Endocrine: No Symptoms Hematologic/Lymphatic: No Symptoms Immunological/Allergic: No Symptoms Medications & Allergies Home Medications: Home Medication List ALPRAZolam 1 MG [Xanax 1 mg] 1 mg PO TID 02/17/13 [History Confirmed 11/28/22] Aspirin 81 mg PO DAILY 09/11/16 [History Confirmed 11/28/22] Levothyroxine Sodium 50 Mcg [Synthroid 50 Mcg] 50 mcg PO DAILY 07/06/17 [History Confirmed 11/28/22] Linaclotide [Linzess] 290 mcg PO DAILY 10/07/17 [History Confirmed 11/28/22] Dexlansoprazole [Dexilant] 60 mg PO DAILY 01/21/20 [History Confirmed 11/28/22] Albuterol 2.5 mg/3 ml Neb [Proventil 2.5 mg/3 ml Neb] 2.5 mg IH QID 07/23 [History Confirmed 11/28/22] dilTIAZem HCl [Diltiazem 24Hr ER (Cd)] 120 mg PO DAILY 09/29/21 [History Confirmed 11/28/22] Promethazine HCl 25 mg [Phenergan 25 mg] 25 mg PO BIDPRN PRN 01/18/22 [History Confirmed 11/28/22] Apixaban [Eliquis] 5 mg PO BID 07/02/22 [History Confirmed 11/28/22] Fluticasone/Umeclidin/Vilanter [Trelegy Ellipta 200-62.5-25] 1 each IH DAILY 07/02/22 [History Confirmed 11/28/22] Rizatriptan Benzoate [Maxalt] 10 mg PO DAILY PRN 07/02/22 [History Confirmed 11/28/22] Cetirizine HCl [Zyrtec] 1 tab PO DAILY 11/08/22 [History Confirmed 11/28/22] Cyanocobalamin (Vitamin B-12) [Vitamin B12] 1,000 mcg PO DAILY 11/08/22 [History Confirmed 11/28/22] Magnesium Oxide 400 mg [Mag-Ox 400] 1 tab PO DAILY 11/08/22 [History Confirmed 11/28/22] Sodium Bicarbonate 2 tab PO BID 11/08/22 [History Confirmed 11/28/22] Omeprazole/Sodium Bicarbonate [Omeprazole-Bicarb 40-1,100 Cap] 1 each PO HS 11/28/22 [History Confirmed 11/28/22] Prucalopride Succinate [Motegrity] 2 mg PO DAILY 11/28/22 [History Confirmed 11/28/22] Allergies/Adverse Reactions: Allergies Allergy/AdvReac Type Severity Reaction Status Date / Time sumatriptan [From Imitrex] Allergy Intermediate Rash Verified 11/28/22 16:36 codeine Allergy Mild Rash Verified 11/28/22 16:36 nitrofurantoin Allergy Unknown Verified 11/28/22 16:36 [From Macrobid] sulfamethoxazole Allergy Unknown Verified 11/28/22 16:36 [From Bactrim] trimethoprim [From Bactrim] Allergy Unknown Verified 11/28/22 16:36 sumatriptan succinate Allergy Verified 11/28/22 16:36 [From Imitrex] morphine AdvReac Severe Headache Verified 11/28/22 16:36 fentanyl AdvReac Intermediate Headache Verified 11/28/22 16:36 hydrocodone bitartrate AdvReac Mild Vomiting Verified 11/28/22 16:36 [From Vicodin] hydromorphone [From Dilaudid] AdvReac Mild pt states Verified 11/28/22 16:36 makes heache worse. - Past Medical History Past Medical History: Yes Neurological History: Migraines ENT History: Cataracts Cardiac History: No Pertinent History Respiratory History: Bronchitis, COPD, Pulmonary Embolism Endocrine Medical History: Hypothyroidism Musculoskelatal History: Osteoarthritis GI Medical History: GERD, Other History: Other Pyscho-Social History: Anxiety, Panic Disorder Reproductive Disorders: No Pertinent History Comment: frequent uti's, chronic pseudo obstruction, blood clot - Past Surgical History Past Surgical History: Yes Neuro Surgical History: No Pertinent History Cardiac History: No Pertinent History Respiratory Surgery: No Pertinent History GI Surgical History: Cholecystectomy, Other Genitourinary Surgical Hx: No Pertinent History Musculskeletal Surgical Hx: No Pertinent History Female Surgical History: No Pertinent History Other Surgical History: all of large intestine removed and most of small intestines removed. - Social History Smoking Status: Never smoker Exposure to second hand smoke: No Alcohol: None Drug Use: none Significant Family History: no pertinent family hx - Physical Exam Vital Signs: Vital Signs - 24 hr Temp Pulse Resp BP BP Pulse Ox 11/28/22 20:00 81 24 99/53 97 11/28/22 19:56 96 11/28/22 19:30 85 19 114/72 97 11/28/22 19:00 94 H 19 130/81 96 11/28/22 18:30 84 18 116/77 94 L 11/28/22 18:03 78 21 121/79 96 11/28/22 17:01 80 24 106/72 97 11/28/22 16:42 81 28 H 92/75 97 11/28/22 16:07 97.2 F 90 14 119/85 97 11/28/22 16:05 87 27 H 119/85 97 General Appearance: no apparent distress, alert Neurologic Exam: alert, 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, cooperative, normal mood/affect, nml cerebellar function, nml station & gait, sensation nml, No motor deficits Eye Exam: PERRL/EOMI, eyes nml inspection Ears, Nose, Throat Exam: normal ENT inspection, TMs normal, pharynx normal, moist mucous membranes Neck Exam: normal inspection, non-tender, supple, full range of motion Respiratory Exam: normal breath sounds, lungs clear, No respiratory distress Cardiovascular Exam: regular rate/rhythm, normal heart sounds, normal peripheral pulses Gastrointestinal/Abdomen Exam: soft, normal bowel sounds, No tenderness, No mass Back Exam: normal inspection, normal range of motion, No CVA tenderness, No vertebral tenderness Extremity Exam: normal inspection, normal range of motion, pelvis stable Skin Exam: normal color, warm, dry, No rash Lymphatic Exam: No adenopathy Results - Labs Lab/Micro Results: Lab Results-Last 24 Hours 11/28/22 11/28/22 11/28/22 Range/Units 16:03 16:17 17:06 WBC 5.9 (4.0-10.5) x10^3/uL RBC 4.13 (4.1-5.4) x10^6/uL Hgb 13.1 (12.0-16.0) g/dL Hct 39.5 (35-47) % MCV 95.6 (78-100) fL MCH 31.7 (26-32) pg MCHC 33.2 (32-36) g/dL RDW 12.2 (11.5-14.0) % Plt Count 181 (150-450) x10^3/uL MPV 10.6 (7.5-11.0) fL Gran % 75.5 H (36.0-66.0) % Immature Gran % (Auto) 0.7 H (0.00-0.4) % Nucleat RBC Rel Count 0.0 (0.00-0.1) % Eos # (Auto) 0.05 (0-0.5) x10^3/uL Immature Gran # (Auto) 0.04 H (0.00-0.03) x10^3u/L Absolute Lymphs (auto) 0.92 L (1.0-4.6) x10^3/uL Absolute Monos (auto) 0.39 (0.0-1.3) x10^3/uL Absolute Nucleated RBC 0.00 (0.00-0.01) x10^3u/L Lymphocytes % 15.7 L (24.0-44.0) % Monocytes % 6.7 (0.0-12.0) % Eosinophils % 0.9 (0.00-5.0) % Basophils % 0.5 (0.0-0.4) % Absolute Granulocytes 4.42 (1.4-6.9) x10^3/uL Basophils # 0.03 (0-0.4) x10^3/uL PT (9.4-12.5) SECONDS INR (0.8-3.0) APTT (25.1-36.5) SECONDS Sodium (137-145) mmol/L Potassium (3.5-5.1) mmol/L Chloride (98-107) mmol/L Carbon Dioxide (22-30) mmol/L Anion Gap (5-15) MEQ/L BUN (7-17) mg/dL Creatinine (0.52-1.04) mg/dL Estimated GFR ML/MIN Glucose (74-106) mg/dL POC Glucometer 92 (74 to 106) mg/dL Lactic Acid 1.1 (0.4-2.0) Calcium (8.4-10.2) mg/dL Total Bilirubin (0.2-1.3) mg/dL AST (14-36) U/L ALT (0-35) U/L Alkaline Phosphatase (38-126) U/L Troponin I (0.000-0.034) ng/mL Serum Total Protein (6.3-8.2) g/dL Albumin (3.5-5.0) g/dL Urine Color (Yellow) Urine Appearance (Clear) Urine pH (4.6-8.0) Ur Specific O'Brien (1.005-1.030) Urine Protein (Negative) Urine Glucose (UA) (Negative) mg/dL Urine Ketones (Negative) Urine Blood (Negative) Urine Nitrite (Negative) Urine Bilirubin (Negative) Urine Urobilinogen (0.2) mg/dL Ur Leukocyte Esterase (Negative) U Hyaline Cast (Auto) (0-2) /LPF Urine Microscopic RBC (0-5) /HPF Urine Microscopic WBC (0-5) /HPF Ur Epithelial Cells (None Seen) /HPF Urine Bacteria (None Seen) /HPF Urine Culture Reflexed (NO) C. difficile Screen (NEGATIVE) C.difficile 027-NAP1-B1 (NEGATIVE) 11/28/22 11/28/22 11/28/22 Range/Units 17:06 17:06 17:06 WBC (4.0-10.5) x10^3/uL RBC (4.1-5.4) x10^6/uL Hgb (12.0-16.0) g/dL Hct (35-47) % MCV (78-100) fL MCH (26-32) pg MCHC (32-36) g/dL RDW (11.5-14.0) % Plt Count (150-450) x10^3/uL MPV (7.5-11.0) fL Gran % (36.0-66.0) % Immature Gran % (Auto) (0.00-0.4) % Nucleat RBC Rel Count (0.00-0.1) % Eos # (Auto) (0-0.5) x10^3/uL Immature Gran # (Auto) (0.00-0.03) x10^3u/L Absolute Lymphs (auto) (1.0-4.6) x10^3/uL Absolute Monos (auto) (0.0-1.3) x10^3/uL Absolute Nucleated RBC (0.00-0.01) x10^3u/L Lymphocytes % (24.0-44.0) % Monocytes % (0.0-12.0) % Eosinophils % (0.00-5.0) % Basophils % (0.0-0.4) % Absolute Granulocytes (1.4-6.9) x10^3/uL Basophils # (0-0.4) x10^3/uL PT 11.0 (9.4-12.5) SECONDS INR 1.01 (0.8-3.0) APTT 45.2 H (25.1-36.5) SECONDS Sodium 140 (137-145) mmol/L Potassium 4.0 (3.5-5.1) mmol/L Chloride 113 H (98-107) mmol/L Carbon Dioxide 19 L (22-30) mmol/L Anion Gap 11.4 (5-15) MEQ/L BUN 24 H (7-17) mg/dL Creatinine 1.10 H (0.52-1.04) mg/dL Estimated GFR 52.7 ML/MIN Glucose 100 (74-106) mg/dL POC Glucometer (74 to 106) mg/dL Lactic Acid (0.4-2.0) Calcium 9.0 (8.4-10.2) mg/dL Total Bilirubin 0.50 (0.2-1.3) mg/dL AST 22 (14-36) U/L ALT 17 (0-35) U/L Alkaline Phosphatase 98 (38-126) U/L Troponin I < 0.012 (0.000-0.034) ng/mL Serum Total Protein 7.1 (6.3-8.2) g/dL Albumin 4.2 (3.5-5.0) g/dL Urine Color (Yellow) Urine Appearance (Clear) Urine pH (4.6-8.0) Ur Specific O'Brien (1.005-1.030) Urine Protein (Negative) Urine Glucose (UA) (Negative) mg/dL Urine Ketones (Negative) Urine Blood (Negative) Urine Nitrite (Negative) Urine Bilirubin (Negative) Urine Urobilinogen (0.2) mg/dL Ur Leukocyte Esterase (Negative) U Hyaline Cast (Auto) (0-2) /LPF Urine Microscopic RBC (0-5) /HPF Urine Microscopic WBC (0-5) /HPF Ur Epithelial Cells (None Seen) /HPF Urine Bacteria (None Seen) /HPF Urine Culture Reflexed (NO) C. difficile Screen (NEGATIVE) C.difficile 027-NAP1-B1 (NEGATIVE) 11/28/22 11/28/22 11/28/22 Range/Units 19:26 19:36 20:14 WBC (4.0-10.5) x10^3/uL RBC (4.1-5.4) x10^6/uL Hgb (12.0-16.0) g/dL Hct (35-47) % MCV (78-100) fL MCH (26-32) pg MCHC (32-36) g/dL RDW (11.5-14.0) % Plt Count (150-450) x10^3/uL MPV (7.5-11.0) fL Gran % (36.0-66.0) % Immature Gran % (Auto) (0.00-0.4) % Nucleat RBC Rel Count (0.00-0.1) % Eos # (Auto) (0-0.5) x10^3/uL Immature Gran # (Auto) (0.00-0.03) x10^3u/L Absolute Lymphs (auto) (1.0-4.6) x10^3/uL Absolute Monos (auto) (0.0-1.3) x10^3/uL Absolute Nucleated RBC (0.00-0.01) x10^3u/L Lymphocytes % (24.0-44.0) % Monocytes % (0.0-12.0) % Eosinophils % (0.00-5.0) % Basophils % (0.0-0.4) % Absolute Granulocytes (1.4-6.9) x10^3/uL Basophils # (0-0.4) x10^3/uL PT (9.4-12.5) SECONDS INR (0.8-3.0) APTT (25.1-36.5) SECONDS Sodium (137-145) mmol/L Potassium (3.5-5.1) mmol/L Chloride (98-107) mmol/L Carbon Dioxide (22-30) mmol/L Anion Gap (5-15) MEQ/L BUN (7-17) mg/dL Creatinine (0.52-1.04) mg/dL Estimated GFR ML/MIN Glucose (74-106) mg/dL POC Glucometer (74 to 106) mg/dL Lactic Acid (0.4-2.0) Calcium (8.4-10.2) mg/dL Total Bilirubin (0.2-1.3) mg/dL AST (14-36) U/L ALT (0-35) U/L Alkaline Phosphatase (38-126) U/L Troponin I < 0.012 (0.000-0.034) ng/mL Serum Total Protein (6.3-8.2) g/dL Albumin (3.5-5.0) g/dL Urine Color Yellow (Yellow) Urine Appearance Clear (Clear) Urine pH 6.0 (4.6-8.0) Ur Specific O'Brien >=1.030 A (1.005-1.030) Urine Protein Negative (Negative) Urine Glucose (UA) Negative (Negative) mg/dL Urine Ketones Negative (Negative) Urine Blood Small A (Negative) Urine Nitrite Negative (Negative) Urine Bilirubin Negative (Negative) Urine Urobilinogen 1.0 A (0.2) mg/dL Ur Leukocyte Esterase Moderate A (Negative) U Hyaline Cast (Auto) NONE SEEN (0-2) /LPF Urine Microscopic RBC 3-5 (0-5) /HPF Urine Microscopic WBC 11-20 A (0-5) /HPF Ur Epithelial Cells None Seen (None Seen) /HPF Urine Bacteria Many A (None Seen) /HPF Urine Culture Reflexed YES (NO) C. difficile Screen NEGATIVE (NEGATIVE) C.difficile 027-NAP1-B1 PRESUMPTIVE NEGATIVE (NEGATIVE) Accuchecks Date 11/28/22 Time 16:04 - Radiology Impressions Radiology Exams & Impressions: Radiology Procedures Category Date Time Status CT ANGIOGRAPHY NECK [CT] Stat Exams 11/28/22 16:05 Completed CTA HEAD W AND/OR WO CONTRAST [CT] Stat Exams 11/28/22 16:05 Completed HEAD WITHOUT CONTRAST [CT] Stat Exams 11/28/22 15:54 Completed - Other Procedures and Tests Respiratory Therapy 11/28/22 20:16 Respiratory Therapy Consult ONCE 11/28/22 21:13 Respiratory Therapy Assessment DAILY 11/28/22 21:16 Oxygen Oxymizer LPM 3 lpm Assessment/Plan (1) TIA (transient ischemic attack) Current Visit: Yes Status: Acute Assessment & Plan: 1. Negative CTH and CTA of the head 2. Plan for routine further workup per neurology - MRI of head, Echo, A1c and start on statin. All this likely can be done as an outpatient once monitored overnight. Code(s): G45.9 - TRANSIENT CEREBRAL ISCHEMIC ATTACK, UNSPECIFIED Telemedicine Encounter - Telemedicine Encounter Telemedicine Encounter: The entirety of this encounter was performed via Telemedicine"
[2022-11-28] MEDS ORDERED: VENTOLIN COMMON CANISTER IH PRN (21:54)
[2022-11-28] MEDS ORDERED: RIZATRIPTAN BENZOATE 10 MG PO PRN (22:45)
[2022-11-28] MEDS ORDERED: ELIQUIS 2.5 MG TABLET ONE (22:52)
[2022-11-28] MEDS: PHENERGAN 25 MG PO PRN (22:54)
[2022-11-28] MEDS: XANAX 1 MG PO SCH (22:56)
[2022-11-29] MEDS ORDERED: DUONEB 0.5-3 MG/3 ml Neb IH ONE (07:21)
[2022-11-29] MEDS: PROVENTIL 2.5 MG/3 ML NEB IH SCH ×4 (07:26→18:47)
[2022-11-29] MEDS ORDERED: MEDICATION INTERVENTION MC SCH ×4 (07:45)
[2022-11-29 08:19] LABS: Hematocrit 35.7 % (35-47); Hemoglobin 11.7 g/dL (12.0-16.0); Mean Cell Volume 97.8 fL (78-100); Mean Corpuscular Hemoglobin 32.1 pg (26-32); Mean Corpuscular Hgb Concent. 32.8 g/dL (32-36); Mean Platelet Volume 10.2 fL (7.5-11.0); Platelet Count 145 x10^3/uL (150-450); Red Blood Count 3.65 x10^6/uL (4.1-5.4); Red Cell Distribution Width 12.3 % (11.5-14.0); White Blood Count 4.1 x10^3/uL (4.0-10.5)
[2022-11-29 08:32] LABS: ALBUMIN 3.4 g/dL (3.5-5.0); ANION GAP 8.4 MEQ/L (5-15); BILIRUBIN,TOTAL 0.5 mg/dL (0.2-1.3); Calcium 8.1 mg/dL (8.4-10.2); Creatinine 1 1.01 mg/dL (0.52-1.04); EST GLOMERULAR FILTRATION RATE 58.1 ML/MIN; Potassium 4.1 mmol/L (3.5-5.1); Total Protein 5.9 g/dL (6.3-8.2)
[2022-11-29 08:56] LABS: Risk Ratio 4.8
[2022-11-29] MEDS: Cardizem CD PO SCH (09:32)
[2022-11-29] MEDS: ROCEPHIN 1 Gm-D5w 50 ml Bag** 1 G/50 ML IVPB IV SCH (09:32)
[2022-11-29] MEDS: Vitamin B-12 500 MCG PO SCH (09:33)
[2022-11-29] MEDS: CLARITIN 10 MG PO SCH (09:33)
[2022-11-29] MEDS: ECOTRIN 81 MG PO SCH (09:33)
[2022-11-29] MEDS: Protonix 40MG Tablet PO SCH (09:33)
[2022-11-29] MEDS: SYNTHROID 50 MCG PO SCH (09:33)
[2022-11-29] MEDS: MAG-OX 400 PO SCH (09:33)
[2022-11-29] MEDS: ELIQUIS 2.5 MG TABLET PO SCH ×2 (09:33→21:13)
[2022-11-29] MEDS: XANAX 1 MG PO SCH ×3 (09:33→21:14)
[2022-11-29] MEDS: SODIUM BICARBONATE PO SCH ×2 (09:34→21:13)
[2022-11-29] MEDS ORDERED: NON-FORMULARY ITEM (Apixaban [Eliquis] 5 MG Tablet) PO SCH (10:00)
[2022-11-29] MEDS ORDERED: PROVENTIL 2.5 MG/3 ML NEB IH SCH (10:00)
[2022-11-29] MEDS ORDERED: DEXLANSOPRAZOLE 60 MG PO SCH (10:00)
[2022-11-29] MEDS ORDERED: PRUCALOPRIDE SUCCINATE 2 MG PO SCH (10:00)
[2022-11-29] MEDS ORDERED: NON-FORMULARY ITEM (Linaclotide [Linzess] 290 MCG Capsule) PO SCH (10:00)
[2022-11-29] MEDS ORDERED: NON-FORMULARY ITEM (Fluticasone/Umeclidin/Vilanter [Trelegy Ellipta 200-62.5-25] 1 EACH Bl IH SCH (10:00)
[2022-11-29] MEDS: NON-FORMULARY ITEM PO PRN (10:11)
--- NOTE | 2022-11-29 11:19 | PCM.NOTE ---
Date and Time: 11/29/22 1113 Subjective Assessment: 11/28/22 is a 67 year old female with a PMH of COPD, atrial fib on Eliquis, chronic migranes who presented tot the ED with stroke-like symptoms, including right sided weakness. Neurology evaluated the patient and had a negative initial head CT and a negative CTA of the head as well. Upon my interview, patient reports her symptoms are improving and weakness has resolved. No issues with swallowing, no vision issues, nausea, vomiting, fevers. She is able to ambulate as well. 11/29/22 Pt resting in bed. She is c/o a migraine with associated photophobia. She continues to have right sided weakness. We are unable to get an MRI of brain until tomorrow. Pt was able to have a consult with tele neurology last night. Recs in chart. It appears she has a UTI- Rocephin IV started. UC pending. She denies CP, SOB, N/V/D. She reports chronic abd. pain that is not anything out of the ordinary for her due to her hx. - Review of Systems Constitutional: No Fever, No Chills Eyes: No Symptoms Ears, Nose, & Throat: No Symptoms Respiratory: No Cough, No Short Of Breath Cardiac: No Chest Pain, No Edema, No Syncope Abdominal/Gastrointestinal: Abdominal Pain, No Nausea, No Vomiting, No Diarrhea Genitourinary Symptoms: No Dysuria Musculoskeletal: No Back Pain, No Neck Pain Skin: No Rash Neurological: Focal Weakness (right sided weakness), Headache, Sensory Changes (numbness, tingling RLE), No Dizziness Psychological: No Symptoms Endocrine: No Symptoms Hematologic/Lymphatic: No Symptoms Immunological/Allergic: No Symptoms Objective Exam General Appearance: no apparent distress, alert Neurologic Exam: alert, 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, cooperative, normal mood/affect, abnormal hand kiss setter II-XII (Right arm pronator drift, 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 RLE weakness and decrease in function. Pt reports Chronic numbness and tingling down RLE from L5- S1 DDD that is chronic.), No motor deficits Skin Exam: normal color, warm, dry Eye Exam: PERRL, EOMI, eyes nml inspection Ears, Nose, Throat Exam: normal ENT inspection, pharynx normal, moist mucous membranes Neck Exam: normal inspection, non-tender, supple, full range of motion Respiratory Exam: normal breath sounds, lungs clear, No respiratory distress Cardiovascular Exam: regular rate/rhythm, normal heart sounds Gastrointestinal/Abdomen Exam: soft, tenderness (generalized), No mass Extremity Exam: normal inspection, normal range of motion Back Exam: normal inspection, normal range of motion, No CVA tenderness, No vertebral tenderness Pelvic Exam: deferred Rectal Exam: deferred OBJECTIVE DATA Vital Signs: Vital Signs - 24 hr Temp Pulse Resp BP BP Pulse Ox 11/29/22 07:28 56 L 17 99 11/29/22 06:44 97.3 F 72 18 106/55 93 L 11/29/22 04:00 97.9 F 59 L 16 92/55 97 11/29/22 00:20 96 11/28/22 23:54 98.0 F 74 17 106/63 93 L 11/28/22 21:26 63 16 97 11/28/22 21:09 98.8 F 79 16 125/62 99 11/28/22 20:16 83 11/28/22 20:00 81 24 99/53 97 11/28/22 19:30 85 19 114/72 97 11/28/22 19:00 94 H 19 130/81 96 11/28/22 18:30 84 18 116/77 94 L 11/28/22 18:03 78 21 121/79 96 11/28/22 17:01 80 24 106/72 97 11/28/22 16:42 81 28 H 92/75 97 11/28/22 16:07 97.2 F 90 14 119/85 97 11/28/22 16:05 87 27 H 119/85 97 Pain Assessment - Last Documented Pain Intensity 5 Intake and Output: Intake & Output 11/26/22 11/27/22 11/28/22 11/29/22 11:59 11:59 11:59 11:59 Intake Total 720 Balance 720 Weight 85.8 kg Lab Results: Lab Results-Last 24 Hours 11/28/22 11/28/22 11/28/22 Range/Units 16:03 16:17 17:06 WBC 5.9 (4.0-10.5) x10^3/uL RBC 4.13 (4.1-5.4) x10^6/uL Hgb 13.1 (12.0-16.0) g/dL Hct 39.5 (35-47) % MCV 95.6 (78-100) fL MCH 31.7 (26-32) pg MCHC 33.2 (32-36) g/dL RDW 12.2 (11.5-14.0) % Plt Count 181 (150-450) x10^3/uL MPV 10.6 (7.5-11.0) fL Gran % 75.5 H (36.0-66.0) % Immature Gran % (Auto) 0.7 H (0.00-0.4) % Nucleat RBC Rel Count 0.0 (0.00-0.1) % Eos # (Auto) 0.05 (0-0.5) x10^3/uL Immature Gran # (Auto) 0.04 H (0.00-0.03) x10^3u/L Absolute Lymphs (auto) 0.92 L (1.0-4.6) x10^3/uL Absolute Monos (auto) 0.39 (0.0-1.3) x10^3/uL Absolute Nucleated RBC 0.00 (0.00-0.01) x10^3u/L Lymphocytes % 15.7 L (24.0-44.0) % Monocytes % 6.7 (0.0-12.0) % Eosinophils % 0.9 (0.00-5.0) % Basophils % 0.5 (0.0-0.4) % Absolute Granulocytes 4.42 (1.4-6.9) x10^3/uL Basophils # 0.03 (0-0.4) x10^3/uL PT (9.4-12.5) SECONDS INR (0.8-3.0) APTT (25.1-36.5) SECONDS Sodium (137-145) mmol/L Potassium (3.5-5.1) mmol/L Chloride (98-107) mmol/L Carbon Dioxide (22-30) mmol/L Anion Gap (5-15) MEQ/L BUN (7-17) mg/dL Creatinine (0.52-1.04) mg/dL Estimated GFR ML/MIN Glucose (74-106) mg/dL POC Glucometer 92 (74 to 106) mg/dL Hemoglobin A1c (4.5-6.0) % Lactic Acid 1.1 (0.4-2.0) Calcium (8.4-10.2) mg/dL Total Bilirubin (0.2-1.3) mg/dL AST (14-36) U/L ALT (0-35) U/L Alkaline Phosphatase (38-126) U/L Troponin I (0.000-0.034) ng/mL Serum Total Protein (6.3-8.2) g/dL Albumin (3.5-5.0) g/dL Triglycerides (30-150) mg/dL Cholesterol (50-200) mg/dL LDL Cholesterol (30-100) mg/dL HDL Cholesterol (40-60) mg/dL Heart Disease Risk Ratio TSH 3rd Generation (0.47-4.68) mIU/L Urine Color (Yellow) Urine Appearance (Clear) Urine pH (4.6-8.0) Ur Specific Ten[place] (1.005-1.030) Urine Protein (Negative) Urine Glucose (UA) (Negative) mg/dL Urine Ketones (Negative) Urine Blood (Negative) Urine Nitrite (Negative) Urine Bilirubin (Negative) Urine Urobilinogen (0.2) mg/dL Ur Leukocyte Esterase (Negative) U Hyaline Cast (Auto) (0-2) /LPF Urine Microscopic RBC (0-5) /HPF Urine Microscopic WBC (0-5) /HPF Ur Epithelial Cells (None Seen) /HPF Urine Bacteria (None Seen) /HPF Urine Culture Reflexed (NO) C. difficile Screen (NEGATIVE) C.difficile 027-NAP1-B1 (NEGATIVE) 11/28/22 11/28/22 11/28/22 Range/Units 17:06 17:06 17:06 WBC (4.0-10.5) x10^3/uL RBC (4.1-5.4) x10^6/uL Hgb (12.0-16.0) g/dL Hct (35-47) % MCV (78-100) fL MCH (26-32) pg MCHC (32-36) g/dL RDW (11.5-14.0) % Plt Count (150-450) x10^3/uL MPV (7.5-11.0) fL Gran % (36.0-66.0) % Immature Gran % (Auto) (0.00-0.4) % Nucleat RBC Rel Count (0.00-0.1) % Eos # (Auto) (0-0.5) x10^3/uL Immature Gran # (Auto) (0.00-0.03) x10^3u/L Absolute Lymphs (auto) (1.0-4.6) x10^3/uL Absolute Monos (auto) (0.0-1.3) x10^3/uL Absolute Nucleated RBC (0.00-0.01) x10^3u/L Lymphocytes % (24.0-44.0) % Monocytes % (0.0-12.0) % Eosinophils % (0.00-5.0) % Basophils % (0.0-0.4) % Absolute Granulocytes (1.4-6.9) x10^3/uL Basophils # (0-0.4) x10^3/uL PT 11.0 (9.4-12.5) SECONDS INR 1.01 (0.8-3.0) APTT 45.2 H (25.1-36.5) SECONDS Sodium 140 (137-145) mmol/L Potassium 4.0 (3.5-5.1) mmol/L Chloride 113 H (98-107) mmol/L Carbon Dioxide 19 L (22-30) mmol/L Anion Gap 11.4 (5-15) MEQ/L BUN 24 H (7-17) mg/dL Creatinine 1.10 H (0.52-1.04) mg/dL Estimated GFR 52.7 ML/MIN Glucose 100 (74-106) mg/dL POC Glucometer (74 to 106) mg/dL Hemoglobin A1c (4.5-6.0) % Lactic Acid (0.4-2.0) Calcium 9.0 (8.4-10.2) mg/dL Total Bilirubin 0.50 (0.2-1.3) mg/dL AST 22 (14-36) U/L ALT 17 (0-35) U/L Alkaline Phosphatase 98 (38-126) U/L Troponin I < 0.012 (0.000-0.034) ng/mL Serum Total Protein 7.1 (6.3-8.2) g/dL Albumin 4.2 (3.5-5.0) g/dL Triglycerides (30-150) mg/dL Cholesterol (50-200) mg/dL LDL Cholesterol (30-100) mg/dL HDL Cholesterol (40-60) mg/dL Heart Disease Risk Ratio TSH 3rd Generation (0.47-4.68) mIU/L Urine Color (Yellow) Urine Appearance (Clear) Urine pH (4.6-8.0) Ur Specific [place]rike (1.005-1.030) Urine Protein (Negative) Urine Glucose (UA) (Negative) mg/dL Urine Ketones (Negative) Urine Blood (Negative) Urine Nitrite (Negative) Urine Bilirubin (Negative) Urine Urobilinogen (0.2) mg/dL Ur Leukocyte Esterase (Negative) U Hyaline Cast (Auto) (0-2) /LPF Urine Microscopic RBC (0-5) /HPF Urine Microscopic WBC (0-5) /HPF Ur Epithelial Cells (None Seen) /HPF Urine Bacteria (None Seen) /HPF Urine Culture Reflexed (NO) C. difficile Screen (NEGATIVE) C.difficile 027-NAP1-B1 (NEGATIVE) 11/28/22 11/28/22 11/28/22 Range/Units 19:26 19:36 20:14 WBC (4.0-10.5) x10^3/uL RBC (4.1-5.4) x10^6/uL Hgb (12.0-16.0) g/dL Hct (35-47) % MCV (78-100) fL MCH (26-32) pg MCHC (32-36) g/dL RDW (11.5-14.0) % Plt Count (150-450) x10^3/uL MPV (7.5-11.0) fL Gran % (36.0-66.0) % Immature Gran % (Auto) (0.00-0.4) % Nucleat RBC Rel Count (0.00-0.1) % Eos # (Auto) (0-0.5) x10^3/uL Immature Gran # (Auto) (0.00-0.03) x10^3u/L Absolute Lymphs (auto) (1.0-4.6) x10^3/uL Absolute Monos (auto) (0.0-1.3) x10^3/uL Absolute Nucleated RBC (0.00-0.01) x10^3u/L Lymphocytes % (24.0-44.0) % Monocytes % (0.0-12.0) % Eosinophils % (0.00-5.0) % Basophils % (0.0-0.4) % Absolute Granulocytes (1.4-6.9) x10^3/uL Basophils # (0-0.4) x10^3/uL PT (9.4-12.5) SECONDS INR (0.8-3.0) APTT (25.1-36.5) SECONDS Sodium (137-145) mmol/L Potassium (3.5-5.1) mmol/L Chloride (98-107) mmol/L Carbon Dioxide (22-30) mmol/L Anion Gap (5-15) MEQ/L BUN (7-17) mg/dL Creatinine (0.52-1.04) mg/dL Estimated GFR ML/MIN Glucose (74-106) mg/dL POC Glucometer (74 to 106) mg/dL Hemoglobin A1c (4.5-6.0) % Lactic Acid (0.4-2.0) Calcium (8.4-10.2) mg/dL Total Bilirubin (0.2-1.3) mg/dL AST (14-36) U/L ALT (0-35) U/L Alkaline Phosphatase (38-126) U/L Troponin I < 0.012 (0.000-0.034) ng/mL Serum Total Protein (6.3-8.2) g/dL Albumin (3.5-5.0) g/dL Triglycerides (30-150) mg/dL Cholesterol (50-200) mg/dL LDL Cholesterol (30-100) mg/dL HDL Cholesterol (40-60) mg/dL Heart Disease Risk Ratio TSH 3rd Generation (0.47-4.68) mIU/L Urine Color Yellow (Yellow) Urine Appearance Clear (Clear) Urine pH 6.0 (4.6-8.0) Ur Specific [place] >=1.030 A (1.005-1.030) Urine Protein Negative (Negative) Urine Glucose (UA) Negative (Negative) mg/dL Urine Ketones Negative (Negative) Urine Blood Small A (Negative) Urine Nitrite Negative (Negative) Urine Bilirubin Negative (Negative) Urine Urobilinogen 1.0 A (0.2) mg/dL Ur Leukocyte Esterase Moderate A (Negative) U Hyaline Cast (Auto) NONE SEEN (0-2) /LPF Urine Microscopic RBC 3-5 (0-5) /HPF Urine Microscopic WBC 11-20 A (0-5) /HPF Ur Epithelial Cells None Seen (None Seen) /HPF Urine Bacteria Many A (None Seen) /HPF Urine Culture Reflexed YES (NO) C. difficile Screen NEGATIVE (NEGATIVE) C.difficile 027-NAP1-B1 PRESUMPTIVE NEGATIVE (NEGATIVE) 11/29/22 11/29/22 11/29/22 Range/Units 00:17 06:36 08:15 WBC 4.1 (4.0-10.5) x10^3/uL RBC 3.65 L (4.1-5.4) x10^6/uL Hgb 11.7 L (12.0-16.0) g/dL Hct 35.7 (35-47) % MCV 97.8 (78-100) fL MCH 32.1 H (26-32) pg MCHC 32.8 (32-36) g/dL RDW 12.3 (11.5-14.0) % Plt Count 145 L (150-450) x10^3/uL MPV 10.2 (7.5-11.0) fL Gran % (36.0-66.0) % Immature Gran % (Auto) (0.00-0.4) % Nucleat RBC Rel Count (0.00-0.1) % Eos # (Auto) (0-0.5) x10^3/uL Immature Gran # (Auto) (0.00-0.03) x10^3u/L Absolute Lymphs (auto) (1.0-4.6) x10^3/uL Absolute Monos (auto) (0.0-1.3) x10^3/uL Absolute Nucleated RBC (0.00-0.01) x10^3u/L Lymphocytes % (24.0-44.0) % Monocytes % (0.0-12.0) % Eosinophils % (0.00-5.0) % Basophils % (0.0-0.4) % Absolute Granulocytes (1.4-6.9) x10^3/uL Basophils # (0-0.4) x10^3/uL PT (9.4-12.5) SECONDS INR (0.8-3.0) APTT (25.1-36.5) SECONDS Sodium (137-145) mmol/L Potassium (3.5-5.1) mmol/L Chloride (98-107) mmol/L Carbon Dioxide (22-30) mmol/L Anion Gap (5-15) MEQ/L BUN (7-17) mg/dL Creatinine (0.52-1.04) mg/dL Estimated GFR ML/MIN Glucose (74-106) mg/dL POC Glucometer 119 H (74 to 106) mg/dL Hemoglobin A1c (4.5-6.0) % Lactic Acid (0.4-2.0) Calcium (8.4-10.2) mg/dL Total Bilirubin (0.2-1.3) mg/dL AST (14-36) U/L ALT (0-35) U/L Alkaline Phosphatase (38-126) U/L Troponin I < 0.012 (0.000-0.034) ng/mL Serum Total Protein (6.3-8.2) g/dL Albumin (3.5-5.0) g/dL Triglycerides (30-150) mg/dL Cholesterol (50-200) mg/dL LDL Cholesterol (30-100) mg/dL HDL Cholesterol (40-60) mg/dL Heart Disease Risk Ratio TSH 3rd Generation (0.47-4.68) mIU/L Urine Color (Yellow) Urine Appearance (Clear) Urine pH (4.6-8.0) Ur Specific [place] (1.005-1.030) Urine Protein (Negative) Urine Glucose (UA) (Negative) mg/dL Urine Ketones (Negative) Urine Blood (Negative) Urine Nitrite (Negative) Urine Bilirubin (Negative) Urine Urobilinogen (0.2) mg/dL Ur Leukocyte Esterase (Negative) U Hyaline Cast (Auto) (0-2) /LPF Urine Microscopic RBC (0-5) /HPF Urine Microscopic WBC (0-5) /HPF Ur Epithelial Cells (None Seen) /HPF Urine Bacteria (None Seen) /HPF Urine Culture Reflexed (NO) C. difficile Screen (NEGATIVE) C.difficile 027-NAP1-B1 (NEGATIVE) 11/29/22 11/29/22 11/29/22 Range/Units 08:15 08:15 08:15 WBC (4.0-10.5) x10^3/uL RBC (4.1-5.4) x10^6/uL Hgb (12.0-16.0) g/dL Hct (35-47) % MCV (78-100) fL MCH (26-32) pg MCHC (32-36) g/dL RDW (11.5-14.0) % Plt Count (150-450) x10^3/uL MPV (7.5-11.0) fL Gran % (36.0-66.0) % Immature Gran % (Auto) (0.00-0.4) % Nucleat RBC Rel Count (0.00-0.1) % Eos # (Auto) (0-0.5) x10^3/uL Immature Gran # (Auto) (0.00-0.03) x10^3u/L Absolute Lymphs (auto) (1.0-4.6) x10^3/uL Absolute Monos (auto) (0.0-1.3) x10^3/uL Absolute Nucleated RBC (0.00-0.01) x10^3u/L Lymphocytes % (24.0-44.0) % Monocytes % (0.0-12.0) % Eosinophils % (0.00-5.0) % Basophils % (0.0-0.4) % Absolute Granulocytes (1.4-6.9) x10^3/uL Basophils # (0-0.4) x10^3/uL PT (9.4-12.5) SECONDS INR (0.8-3.0) APTT (25.1-36.5) SECONDS Sodium 138 (137-145) mmol/L Potassium 4.1 (3.5-5.1) mmol/L Chloride 113 H (98-107) mmol/L Carbon Dioxide 20 L (22-30) mmol/L Anion Gap 8.4 (5-15) MEQ/L BUN 18 H (7-17) mg/dL Creatinine 1.01 (0.52-1.04) mg/dL Estimated GFR 58.1 ML/MIN Glucose 98 (74-106) mg/dL POC Glucometer (74 to 106) mg/dL Hemoglobin A1c 5.27 (4.5-6.0) % Lactic Acid (0.4-2.0) Calcium 8.1 L (8.4-10.2) mg/dL Total Bilirubin 0.50 (0.2-1.3) mg/dL AST 20 (14-36) U/L ALT 16 (0-35) U/L Alkaline Phosphatase 83 (38-126) U/L Troponin I (0.000-0.034) ng/mL Serum Total Protein 5.9 L (6.3-8.2) g/dL Albumin 3.4 L (3.5-5.0) g/dL Triglycerides 154 H (30-150) mg/dL Cholesterol 162 (50-200) mg/dL LDL Cholesterol 86 (30-100) mg/dL HDL Cholesterol 34 L (40-60) mg/dL Heart Disease Risk Ratio 4.8 TSH 3rd Generation (0.47-4.68) mIU/L Urine Color (Yellow) Urine Appearance (Clear) Urine pH (4.6-8.0) Ur Specific [place] (1.005-1.030) Urine Protein (Negative) Urine Glucose (UA) (Negative) mg/dL Urine Ketones (Negative) Urine Blood (Negative) Urine Nitrite (Negative) Urine Bilirubin (Negative) Urine Urobilinogen (0.2) mg/dL Ur Leukocyte Esterase (Negative) U Hyaline Cast (Auto) (0-2) /LPF Urine Microscopic RBC (0-5) /HPF Urine Microscopic WBC (0-5) /HPF Ur Epithelial Cells (None Seen) /HPF Urine Bacteria (None Seen) /HPF Urine Culture Reflexed (NO) C. difficile Screen (NEGATIVE) C.difficile 027-NAP1-B1 (NEGATIVE) 11/29/22 Range/Units 08:15 WBC (4.0-10.5) x10^3/uL RBC (4.1-5.4) x10^6/uL Hgb (12.0-16.0) g/dL Hct (35-47) % MCV (78-100) fL MCH (26-32) pg MCHC (32-36) g/dL RDW (11.5-14.0) % Plt Count (150-450) x10^3/uL MPV (7.5-11.0) fL Gran % (36.0-66.0) % Immature Gran % (Auto) (0.00-0.4) % Nucleat RBC Rel Count (0.00-0.1) % Eos # (Auto) (0-0.5) x10^3/uL Immature Gran # (Auto) (0.00-0.03) x10^3u/L Absolute Lymphs (auto) (1.0-4.6) x10^3/uL Absolute Monos (auto) (0.0-1.3) x10^3/uL Absolute Nucleated RBC (0.00-0.01) x10^3u/L Lymphocytes % (24.0-44.0) % Monocytes % (0.0-12.0) % Eosinophils % (0.00-5.0) % Basophils % (0.0-0.4) % Absolute Granulocytes (1.4-6.9) x10^3/uL Basophils # (0-0.4) x10^3/uL PT (9.4-12.5) SECONDS INR (0.8-3.0) APTT (25.1-36.5) SECONDS Sodium (137-145) mmol/L Potassium (3.5-5.1) mmol/L Chloride (98-107) mmol/L Carbon Dioxide (22-30) mmol/L Anion Gap (5-15) MEQ/L BUN (7-17) mg/dL Creatinine (0.52-1.04) mg/dL Estimated GFR ML/MIN Glucose (74-106) mg/dL POC Glucometer (74 to 106) mg/dL Hemoglobin A1c (4.5-6.0) % Lactic Acid (0.4-2.0) Calcium (8.4-10.2) mg/dL Total Bilirubin (0.2-1.3) mg/dL AST (14-36) U/L ALT (0-35) U/L Alkaline Phosphatase (38-126) U/L Troponin I (0.000-0.034) ng/mL Serum Total Protein (6.3-8.2) g/dL Albumin (3.5-5.0) g/dL Triglycerides (30-150) mg/dL Cholesterol (50-200) mg/dL LDL Cholesterol (30-100) mg/dL HDL Cholesterol (40-60) mg/dL Heart Disease Risk Ratio TSH 3rd Generation 1.370 (0.47-4.68) mIU/L Urine Color (Yellow) Urine Appearance (Clear) Urine pH (4.6-8.0) Ur Specific [place] (1.005-1.030) Urine Protein (Negative) Urine Glucose (UA) (Negative) mg/dL Urine Ketones (Negative) Urine Blood (Negative) Urine Nitrite (Negative) Urine Bilirubin (Negative) Urine Urobilinogen (0.2) mg/dL Ur Leukocyte Esterase (Negative) U Hyaline Cast (Auto) (0-2) /LPF Urine Microscopic RBC (0-5) /HPF Urine Microscopic WBC (0-5) /HPF Ur Epithelial Cells (None Seen) /HPF Urine Bacteria (None Seen) /HPF Urine Culture Reflexed (NO) C. difficile Screen (NEGATIVE) C.difficile 027-NAP1-B1 (NEGATIVE) Radiology Exams: Radiology Procedures Category Date Time Status CT ANGIOGRAPHY NECK [CT] Stat Exams 11/28/22 16:05 Completed CTA HEAD W AND/OR WO CONTRAST [CT] Stat Exams 11/28/22 16:05 Completed ECHO W/2D AND DOPPLER [US] Routine Exams 11/30/22 10:07 Ordered HEAD WITHOUT CONTRAST [CT] Stat Exams 11/28/22 15:54 Completed MRI BRAIN W/O CONTRAST [MRI] Routine Exams 11/30/22 10:08 Ordered Assessment/Plan (1) Acute right-sided weakness Current Visit: Yes Status: Acute Assessment & Plan: - Negative CTH and CTA of the head - Plan for routine further workup per neurology - MRI of head, Echo, A1c and start on statin. 11/29 - Neurology note in chart - Continued right sided weakness - ST, PT, OT eval - TSH, A1C, lipid panel - Echo and MRI will be tomorrow - CTA head 11/28: IMPRESSION: 1. Grossly unremarkable CT Angiography of the cerebral arteries. 2. No detectable acute intracranial hemorrhage or established acute territory infarction. - CT angiography 11/28: IMPRESSION: Normal opacification of the cervical segements of the ICAs and vertebral arteries with no significant stenosis or occlusion. No abnormal enhancing masses. Portacath noted in the right upper hemithorax. -Head CT 11/28: IMPRESSION: No acute intracranial abnormality. CT may not detect early ischemic changes. MRI with DWI is advised if clinically warranted. Code(s): R53.1 - WEAKNESS (2) COPD (chronic obstructive pulmonary disease) Current Visit: Yes Status: Acute Assessment & Plan: - Chronic - stable - RT eval and treat - Baseline 3LNC - On 3LNC- 96% (3) History of atrial fibrillation Current Visit: Yes Status: Acute Assessment & Plan: - continue home meds Code(s): Z86.79 - PERSONAL HISTORY OF OTHER DISEASES OF THE CIRCULATORY SYSTEM (4) Abdominal pain Current Visit: No Status: Acute Onset Date: ~10/07/17 Qualifiers: Abdominal location: generalized Qualified Code(s): R10.84 - Generalized ab dominal pain Assessment & Plan: - chronic - no new pain Code(s): R10.9 - UNSPECIFIED ABDOMINAL PAIN (5) Acute UTI Current Visit: No Status: Acute Assessment & Plan: - Rocephin - UC pending Code(s): N39.0 - URINARY TRACT INFECTION, SITE NOT SPECIFIED (6) Anxiety Current Visit: No Status: Acute Assessment & Plan: - Continue Xanax Code(s): F41.9 - ANXIETY DISORDER, UNSPECIFIED (7) CKD (chronic kidney disease) Current Visit: No Status: Acute Assessment & Plan: - appears to be at baseline Code(s): N18.9 - CHRONIC KIDNEY DISEASE, UNSPECIFIED (8) Migraine headache Current Visit: No Status: Acute Assessment & Plan: - Continue Maxalt Code(s): G43.909 - MIGRAINE, UNSP, NOT INTRACTABLE, WITHOUT STATUS MIGRAINOSUS (9) Hypothyroidism Current Visit: Yes Status: Acute Assessment & Plan: - Continue Synthroid Code(s): E03.9 - HYPOTHYROIDISM, UNSPECIFIED (10) GERD (gastroesophageal reflux disease) Current Visit: Yes Status: Acute Assessment & Plan: - Continue Omeprazole VTE: Eliquis PPI: Omeprazole Next of kin: Maria Eugenia Pack [phone] D/C plan: 1-2 days Code(s): K21.9 - GASTRO-ESOPHAGEAL REFLUX DISEASE WITHOUT ESOPHAGITIS
[2022-11-29] MEDS: PHENERGAN 25 MG PO PRN (21:14)
[2022-11-29] MEDS ORDERED: Protonix 40MG Tablet PO SCH (22:00)
[2022-11-30 04:41] LABS: Hematocrit 35.8 % (35-47); Hemoglobin 12.1 g/dL (12.0-16.0); Mean Cell Volume 95.2 fL (78-100); Mean Corpuscular Hemoglobin 32.2 pg (26-32); Mean Corpuscular Hgb Concent. 33.8 g/dL (32-36); Mean Platelet Volume 10.5 fL (7.5-11.0); Platelet Count 187 x10^3/uL (150-450); Red Blood Count 3.76 x10^6/uL (4.1-5.4); Red Cell Distribution Width 12.8 % (11.5-14.0); White Blood Count 5.1 x10^3/uL (4.0-10.5)
[2022-11-30 05:08] LABS: ALBUMIN 3.5 g/dL (3.5-5.0); ANION GAP 9.4 MEQ/L (5-15); BILIRUBIN,TOTAL 0.5 mg/dL (0.2-1.3); Calcium 8.1 mg/dL (8.4-10.2); Creatinine 1 1.15 mg/dL (0.52-1.04); Potassium 3.8 mmol/L (3.5-5.1); Total Protein 5.8 g/dL (6.3-8.2)
[2022-11-30 06:53] VITALS: RESP 18
[2022-11-30] MEDS: PROVENTIL 2.5 MG/3 ML NEB IH SCH ×2 (07:27→11:17)
[2022-11-30] MEDS: Vitamin B-12 500 MCG PO SCH (09:52)
[2022-11-30] MEDS: ELIQUIS 2.5 MG TABLET PO SCH (09:53)
[2022-11-30] MEDS: SYNTHROID 50 MCG PO SCH (09:53)
[2022-11-30] MEDS: XANAX 1 MG PO SCH (09:53)
[2022-11-30] MEDS: Cardizem CD PO SCH (09:53)
[2022-11-30] MEDS: SODIUM BICARBONATE PO SCH (09:53)
[2022-11-30] MEDS: ECOTRIN 81 MG PO SCH (09:53)
[2022-11-30] MEDS: CLARITIN 10 MG PO SCH (09:53)
[2022-11-30] MEDS: Protonix 40MG Tablet PO SCH (09:53)
[2022-11-30] MEDS: MAG-OX 400 PO SCH (09:53)
[2022-11-30] MEDS: NON-FORMULARY ITEM PO PRN (09:54)
[2022-11-30] MEDS: ROCEPHIN 1 Gm-D5w 50 ml Bag** 1 G/50 ML IVPB IV SCH (09:54)
--- NOTE | 2022-11-30 11:01 | PCM.NOTE ---
Date and Time: 11/30/22 1053 Subjective Assessment: is a 67 year old female with a PMH of COPD, atrial fib on Eliquis, chronic migraines who presented tot the ED with stroke-like symptoms, including right sided weakness. Neurology evaluated the patient and had a negative initial head CT as well as a negative CTA. During hospital course, patient with migraine with associated photophobia. MRI is pending. Patient also being treated for UTI, with culture growing gram +, currently being treated with rocephin. Endorses continued right-sided weakness. On exam motor strength RUE 3/5 , LUE 5/5, RLE 3/5, LLE 5/5. Sensation intact. EOMI, PERRLA, no nystagmus noted. A&O x 3. Denies fever,cough, sob, cp, abdominal pain, KIM, dizziness, N/V/D. Patient does state that her stools are dark/tarry. Will order occult stool. - Review of Systems Constitutional: No Symptoms Eyes: No Symptoms Ears, Nose, & Throat: No Symptoms Respiratory: No Symptoms Cardiac: No Symptoms Abdominal/Gastrointestinal: No Symptoms Genitourinary Symptoms: No Symptoms Musculoskeletal: Joint Pain Skin: No Symptoms Neurological: Focal Weakness (see HPI), Headache Psychological: No Symptoms Endocrine: No Symptoms Hematologic/Lymphatic: No Symptoms Immunological/Allergic: No Symptoms Objective Exam General Appearance: no apparent distress Neurologic Exam: alert, 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, cooperative, jig hand II-XII nml as tested, motor deficits (AA&Ox3. Sensation intact in upper and lower extremities b/l. Motor strength 3/5 to RUE/RLE. LLE/LUE 5/5. EOMI, PERRLA, no nystagmus noted.) Skin Exam: normal color Eye Exam: PERRL Ears, Nose, Throat Exam: normal ENT inspection Neck Exam: normal inspection Respiratory Exam: normal breath sounds, lungs clear Cardiovascular Exam: regular rate/rhythm, normal heart sounds Gastrointestinal/Abdomen Exam: soft, normal bowel sounds Extremity Exam: normal inspection Back Exam: normal inspection OBJECTIVE DATA Vital Signs: Vital Signs - 24 hr Temp Pulse Resp BP Pulse Ox 11/30/22 07:30 68 18 93 L 11/30/22 06:53 97.3 F 83 18 90/53 96 11/30/22 04:00 97.9 F 74 17 111/57 94 L 11/30/22 00:00 97.8 F 80 16 90/51 93 L 11/29/22 19:56 98.4 F 84 20 106/57 93 L 11/29/22 19:46 96 11/29/22 18:45 97 11/29/22 18:42 84 16 97 11/29/22 16:00 97.3 F 81 17 106/58 95 11/29/22 15:20 74 17 96 11/29/22 11:42 97.5 F 71 17 110/55 97 Pain Assessment - Last Documented Pain Intensity 0 Intake and Output: Intake & Output 11/27/22 11/28/22 11/29/22 11/30/22 11:59 11:59 11:59 11:59 Intake Total 720 960 Balance 720 960 Weight 85.8 kg Lab Results: Lab Results-Last 24 Hours 11/29/22 11/29/22 11/30/22 Range/Units 11:25 16:14 04:36 WBC 5.1 (4.0-10.5) x10^3/uL RBC 3.76 L (4.1-5.4) x10^6/uL Hgb 12.1 (12.0-16.0) g/dL Hct 35.8 (35-47) % MCV 95.2 (78-100) fL MCH 32.2 H (26-32) pg MCHC 33.8 (32-36) g/dL RDW 12.8 (11.5-14.0) % Plt Count 187 (150-450) x10^3/uL MPV 10.5 (7.5-11.0) fL Sodium (137-145) mmol/L Potassium (3.5-5.1) mmol/L Chloride (98-107) mmol/L Carbon Dioxide (22-30) mmol/L Anion Gap (5-15) MEQ/L BUN (7-17) mg/dL Creatinine (0.52-1.04) mg/dL Estimated GFR ML/MIN Glucose (74-106) mg/dL POC Glucometer 93 104 (74 to 106) mg/dL Calcium (8.4-10.2) mg/dL Total Bilirubin (0.2-1.3) mg/dL AST (14-36) U/L ALT (0-35) U/L Alkaline Phosphatase (38-126) U/L Serum Total Protein (6.3-8.2) g/dL Albumin (3.5-5.0) g/dL 11/30/22 11/30/22 Range/Units 04:36 06:36 WBC (4.0-10.5) x10^3/uL RBC (4.1-5.4) x10^6/uL Hgb (12.0-16.0) g/dL Hct (35-47) % MCV (78-100) fL MCH (26-32) pg MCHC (32-36) g/dL RDW (11.5-14.0) % Plt Count (150-450) x10^3/uL MPV (7.5-11.0) fL Sodium 138 (137-145) mmol/L Potassium 3.8 (3.5-5.1) mmol/L Chloride 111 H (98-107) mmol/L Carbon Dioxide 21 L (22-30) mmol/L Anion Gap 9.4 (5-15) MEQ/L BUN 25 H (7-17) mg/dL Creatinine 1.15 H (0.52-1.04) mg/dL Estimated GFR 50.0 ML/MIN Glucose 102 (74-106) mg/dL POC Glucometer 96 (74 to 106) mg/dL Calcium 8.1 L (8.4-10.2) mg/dL Total Bilirubin 0.50 (0.2-1.3) mg/dL AST 19 (14-36) U/L ALT 16 (0-35) U/L Alkaline Phosphatase 86 (38-126) U/L Serum Total Protein 5.8 L (6.3-8.2) g/dL Albumin 3.5 (3.5-5.0) g/dL Radiology Exams: Radiology Procedures Category Date Time Status CT ANGIOGRAPHY NECK [CT] Stat Exams 11/28/22 16:05 Completed CTA HEAD W AND/OR WO CONTRAST [CT] Stat Exams 11/28/22 16:05 Completed ECHO W/2D AND DOPPLER [US] Routine Exams 11/30/22 10:07 Taken HEAD WITHOUT CONTRAST [CT] Stat Exams 11/28/22 15:54 Completed MRI BRAIN W/O CONTRAST [MRI] Routine Exams 11/30/22 10:08 Ordered Assessment/Plan (1) Acute right-sided weakness Current Visit: Yes Status: Acute Assessment & Plan: - Negative CTH and CTA of the head - Plan for routine further workup per neurology - MRI of head, Echo, A1c and start on statin. 11/29 - Neurology note in chart - Continued right sided weakness - ST, PT, OT eval - TSH, A1C, lipid panel - Echo and MRI will be tomorrow - CTA head 11/28: IMPRESSION: 1. Grossly unremarkable CT Angiography of the cerebral arteries. 2. No detectable acute intracranial hemorrhage or established acute territory infarction. - CT angiography 11/28: IMPRESSION: Normal opacification of the cervical segements of the ICAs and vertebral arteries with no significant stenosis or occlusion. No abnormal enhancing masses. Portacath noted in the right upper hemithorax. -Head CT 11/28: IMPRESSION: No acute intracranial abnormality. CT may not detect early ischemic changes. MRI with DWI is advised if clinically warranted. 11/30: -MRI pending, question as to if symptoms are related to her migraines -Neurology following Code(s): R53.1 - WEAKNESS (2) COPD (chronic obstructive pulmonary disease) Current Visit: Yes Status: Acute Assessment & Plan: - Chronic - stable - RT eval and treat - Baseline 3LNC - On 3LNC- 96% (3) GERD (gastroesophageal reflux disease) Current Visit: Yes Status: Acute Assessment & Plan: - Continue Omeprazole Code(s): K21.9 - GASTRO-ESOPHAGEAL REFLUX DISEASE WITHOUT ESOPHAGITIS (4) History of atrial fibrillation Current Visit: Yes Status: Acute Assessment & Plan: - continue home meds Code(s): Z86.79 - PERSONAL HISTORY OF OTHER DISEASES OF THE CIRCULATORY SYSTEM (5) Hypothyroidism Current Visit: Yes Status: Acute Assessment & Plan: - Continue Synthroid Code(s): E03.9 - HYPOTHYROIDISM, UNSPECIFIED (6) Abdominal pain Current Visit: No Status: Acute Onset Date: ~10/07/17 Qualifiers: Abdominal location: generalized Qualified Code(s): R10.84 - Generalized abdominal pain Assessment & Plan: - chronic - no new pain Code(s): R10.9 - UNSPECIFIED ABDOMINAL PAIN (7) Acute UTI Current Visit: No Status: Acute Assessment & Plan: - Rocephin - UC pending, gram +, will follow Code(s): N39.0 - URINARY TRACT INFECTION, SITE NOT SPECIFIED (8) Anxiety Current Visit: No Status: Acute Assessment & Plan: - Continue Xanax Code(s): F41.9 - ANXIETY DISORDER, UNSPECIFIED (9) CKD (chronic kidney disease) Current Visit: No Status: Acute Assessment & Plan: - appears to be at baseline Code(s): N18.9 - CHRONIC KIDNEY DISEASE, UNSPECIFIED (10) Migraine headache Current Visit: No Status: Acute Assessment & Plan: - Continue Maxalt VTE: Eliquis PPI: Omeprazole Next of kin: Maria Eugenia Garcia [phone] D/C plan: 1-2 days Code(s): G43.909 - MIGRAINE, UNSP, NOT INTRACTABLE, WITHOUT STATUS MIGRAINOSUS
--- NOTE | 2022-11-30 11:26 | XRAY ---
Indication: Right sided weakness. TIA. Negative CT head without contrast, CTA neck, and CTA head exams. Sagittal, coronal, and axial MRI brain performed without contrast using T1, T2, FLAIR, diffusion, and ADC sequences. Comparison: None Age-appropriate global atrophy. No acute intracranial hemorrhage, abnormal extra-axial fluid collection, or mass effect. Diffusion images are negative for restricted signal. Fourth ventricle is midline without hydrocephalus. 7/8 cranial nerve complex bilaterally symmetric. Normal flow void signal within the major intracerebral circulation. Normal appearing craniocervical junction and sella turcica. Paranasal sinuses are clear. Impression: Negative MRI brain without contrast exam.
[2022-11-30 12:01] VITALS: BP 108/63; PULSE 70; TEMP 97.1; O2SAT 95
--- NOTE | 2022-11-30 12:34 | PCM.DS ---
Discharge Summary Date of Admission: 11/28/22 20:11 Date of Discharge: 11/30/22 Admitting Physician: WINNIE SCHAEFER MD Primary Care Provider: MARQUISE HENDERSON DO Allergies Allergies sumatriptan [From Imitrex] Allergy (Intermediate, Verified 11/28/22 16:36) Rash codeine Allergy (Mild, Verified 11/28/22 16:36) Rash MAKES SICK nitrofurantoin [From Macrobid] Allergy (Unknown, Verified 11/28/22 16:36) sulfamethoxazole [From Bactrim] Allergy (Unknown, Verified 11/28/22 16:36) trimethoprim [From Bactrim] Allergy (Unknown, Verified 11/28/22 16:36) sumatriptan succinate [From Imitrex] Allergy (Verified 11/28/22 16:36) morphine Adverse Reaction (Severe, Verified 11/28/22 16:36) Headache MIGRAINES fentanyl Adverse Reaction (Intermediate, Verified 11/28/22 16:36) Headache hydrocodone bitartrate [From Vicodin] Adverse Reaction (Mild, Verified 11/28/22 16:36) Vomiting hydromorphone [From Dilaudid] Adverse Reaction (Mild, Verified 11/28/22 16:36) pt states makes heache worse. Hospital Summary - Hospital Course Hospital Course: is a 67 year old female with a PMH of COPD, atrial fib on Eliquis, chronic migraines who presented to the ED with stroke-like symptoms, including right sided weakness. Neurology evaluated the patient and had a negative initial head CT as well as a negative CTA. During hospital course, patient with migraine with associated photophobia. MRI findings also negative. Patient also being treated for UTI, with culture growing gram +, initially treated with rocephin. Endorses continued right-sided weakness. On exam motor strength RUE 4/5 , LUE 5/5, RLE 3/5, LLE 5/5. She states her RLE weakness is at baseline. Sensation intact. EOMI, PERRLA, no nystagmus noted. A&O x 3. Denies fever,cough, sob, cp, abdominal pain, KIM, dizziness, N/V/D. This may be related to her migraines. Patient advised follow up with PCP as OP for migraine management. She will continue her current regimen until appt. She is allergic to macrobid/bactrim. Will send her home on cefdinir and continue to follow U-ZetrOZ. New Diagnosis: Acute right-sided weakness New Medications: Cefdinir Follow Up: PCP Lalita Results pending: Ucult Latest Assessment & Plan (1) Acute right-sided weakness Current Visit: Yes Status: Acute Assessment & Plan: - Negative CTH and CTA of the head - Plan for routine further workup per neurology - MRI of head, Echo, A1c and start on statin. 11/29 - Neurology note in chart - Continued right sided weakness - ST, PT, OT eval - TSH, A1C, lipid panel - Echo and MRI will be tomorrow - CTA head 11/28: IMPRESSION: 1. Grossly unremarkable CT Angiography of the cerebral arteries. 2. No detectable acute intracranial hemorrhage or established acute territory infarction. - CT angiography 11/28: IMPRESSION: Normal opacification of the cervical segements of the ICAs and vertebral arteries with no significant stenosis or occlusion. No abnormal enhancing masses. Portacath noted in the right upper hemithorax. -Head CT 11/28: IMPRESSION: No acute intracranial abnormality. CT may not detect early ischemic changes. MRI with DWI is advised if clinically warranted. 11/30: -MRI pending, question as to if symptoms are related to her migraines -Neurology following Code(s): R53.1 - WEAKNESS (2) COPD (chronic obstructive pulmonary disease) Current Visit: Yes Status: Acute Assessment & Plan: - Chronic - stable - RT eval and treat - Baseline 3LNC - On 3LNC- 96% (3) GERD (gastroesophageal reflux disease) Current Visit: Yes Status: Acute Assessment & Plan: - Continue Omeprazole Code(s): K21.9 - GASTRO-ESOPHAGEAL REFLUX DISEASE WITHOUT ESOPHAGITIS (4) History of atrial fibrillation Current Visit: Yes Status: Acute Assessment & Plan: - continue home meds Code(s): Z86.79 - PERSONAL HISTORY OF OTHER DISEASES OF THE CIRCULATORY SYSTEM (5) Hypothyroidism Current Visit: Yes Status: Acute Assessment & Plan: - Continue Synthroid Code(s): E03.9 - HYPOTHYROIDISM, UNSPECIFIED (6) Abdominal pain Current Visit: No Status: Acute Onset Date: ~10/07/17 Qualifiers: Abdominal location: generalized Qualified Code(s): R10.84 - Generalized abdominal pain Assessment & Plan: - chronic - no new pain Code(s): R10.9 - UNSPECIFIED ABDOMINAL PAIN (7) Acute UTI Current Visit: No Status: Acute Assessment & Plan: - Rocephin - UC pending, gram +, will follow Code(s): N39.0 - URINARY TRACT INFECTION, SITE NOT SPECIFIED (8) Anxiety Current Visit: No Status: Acute Assessment & Plan: - Continue Xanax Code(s): F41.9 - ANXIETY DISORDER, UNSPECIFIED (9) CKD (chronic kidney disease) Current Visit: No Status: Acute Assessment & Plan: - appears to be at baseline Code(s): N18.9 - CHRONIC KIDNEY DISEASE, UNSPECIFIED (10) Migraine headache Current Visit: No Status: Acute Assessment & Plan: - Continue Maxalt I spent 35 minutes [id number] with the patient on the day of discharge performing discharge exam, discussing hospital stay and discharge instructions with patient and caregivers, preparation of discharge records, prescriptions & referral forms and addressing any questions/concerns the patient had as docu mented above. - Vitals & Intake/Output Vital Signs: Vital Signs Temperature 97.1 F 11/30/22 12:00 Pulse Rate 70 11/30/22 12:00 Respiratory Rate 18 11/30/22 12:00 Blood Pressure 108/63 11/30/22 12:00 O2 Sat by Pulse Oximetry 95 11/30/22 12:00 Intake & Output: Intake & Output 11/28/22 11/29/22 11/30/22 12/01/22 11:59 11:59 11:59 11:59 Intake Total 720 960 Balance 720 960 Weight 85.8 kg - Lab Result Diagrams: 11/30/22 04:36 11/30/22 04:36 Lab Results-Last 24 Hrs: Lab Results-Last 24 Hours 11/29/22 11/30/22 11/30/22 Range/Units 16:14 04:36 04:36 WBC 5.1 (4.0-10.5) x10^3/uL RBC 3.76 L (4.1-5.4) x10^6/uL Hgb 12.1 (12.0-16.0) g/dL Hct 35.8 (35-47) % MCV 95.2 (78-100) fL MCH 32.2 H (26-32) pg MCHC 33.8 (32-36) g/dL RDW 12.8 (11.5-14.0) % Plt Count 187 (150-450) x10^3/uL MPV 10.5 (7.5-11.0) fL Sodium 138 (137-145) mmol/L Potassium 3.8 (3.5-5.1) mmol/L Chloride 111 H (98-107) mmol/L Carbon Dioxide 21 L (22-30) mmol/L Anion Gap 9.4 (5-15) MEQ/L BUN 25 H (7-17) mg/dL Creatinine 1.15 H (0.52-1.04) mg/dL Estimated GFR 50.0 ML/MIN Glucose 102 (74-106) mg/dL POC Glucometer 104 (74 to 106) mg/dL Calcium 8.1 L (8.4-10.2) mg/dL Total Bilirubin 0.50 (0.2-1.3) mg/dL AST 19 (14-36) U/L ALT 16 (0-35) U/L Alkaline Phosphatase 86 (38-126) U/L Serum Total Protein 5.8 L (6.3-8.2) g/dL Albumin 3.5 (3.5-5.0) g/dL 11/30/22 11/30/22 Range/Units 06:36 11:45 WBC (4.0-10.5) x10^3/uL RBC (4.1-5.4) x10^6/uL Hgb (12.0-16.0) g/dL Hct (35-47) % MCV (78-100) fL MCH (26-32) pg MCHC (32-36) g/dL RDW (11.5-14.0) % Plt Count (150-450) x10^3/uL MPV (7.5-11.0) fL Sodium (137-145) mmol/L Potassium (3.5-5.1) mmol/L Chloride (98-107) mmol/L Carbon Dioxide (22-30) mmol/L Anion Gap (5-15) MEQ/L BUN (7-17) mg/dL Creatinine (0.52-1.04) mg/dL Estimated GFR ML/MIN Glucose (74-106) mg/dL POC Glucometer 96 119 H (74 to 106) mg/dL Calcium (8.4-10.2) mg/dL Total Bilirubin (0.2-1.3) mg/dL AST (14-36) U/L ALT (0-35) U/L Alkaline Phosphatase (38-126) U/L Serum Total Protein (6.3-8.2) g/dL Albumin (3.5-5.0) g/dL Micro Results-Entire Visit: Microbiology 11/28/22 19:26 Urine Culture - Preliminary Urine, Void GRAM POSITIVE ID AND SENSITIVITY PENDING 11/28/22 20:15 Blood Culture - Preliminary Blood Accuchecks Date 11/30/22 Date 11/30/22 Date 11/29/22 Date 11/29/22 Time 12:00 Time 06:52 Time 16:25 - Radiology Exams Ordered Rad Exams-Entire Visit: Radiology Procedures Category Date Time Status CT ANGIOGRAPHY NECK [CT] Stat Exams 11/28/22 16:05 Completed CTA HEAD W AND/OR WO CONTRAST [CT] Stat Exams 11/28/22 16:05 Completed ECHO W/2D AND DOPPLER [US] Routine Exams 11/30/22 10:07 Taken HEAD WITHOUT CONTRAST [CT] Stat Exams 11/28/22 15:54 Completed MRI BRAIN W/O CONTRAST [MRI] Routine Exams 11/30/22 10:08 Completed - Procedures and Test Procedures and Tests throughout Hospitalization: Therapy Orders & Screens 11/28/22 20:16 Respiratory Therapy Consult ONCE Comment: Reason For Exam: 11/28/22 21:13 Respiratory Therapy Assessment DAILY Comment: 11/28/22 21:16 Oxygen Oxymizer LPM 3 lpm Comment: 11/30/22 11:17 ST Eval & Treat ( Order) .as ordered Comment: Physician Instructions: Reason For Exam: Evaluate: new onset right sided weakness Treat: Yes Reason for Eval: possible TIA vs. stroke Diagnosis: TIA 11/30/22 11:24 PT Eval & Treat ( Order) ONCE Reason for Eval:: right sideded weakness Diagnosis: TIA OT Eval and Treat ( Order) ROUTINE Comment: Physician Instructions: Reason For Exam: right sided weakness Evaluate: Yes Treat: Yes Diagnosis: TIA Discharge Exam General Appearance: no apparent distress Neurologic Exam: alert, 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, cooperative, other (AA&Ox3. Sensation intact in upper and lower extremities b/l. Motor strength 4/5 to RUE/RLE. LLE/LUE 5/5. EOMI, PERRLA, no nystagmus noted.)) Eye Exam: PERRL Ears, Nose, Throat Exam: normal ENT inspection Neck Exam: normal inspection Respiratory Exam: normal breath sounds, lungs clear Cardiovascular Exam: regular rate/rhythm, normal heart sounds Gastrointestinal/Abdomen Exam: soft, normal bowel sounds Pelvic Exam: deferred Rectal Exam: deferred Back Exam: normal inspection Extremity Exam: normal inspection Skin Exam: normal color Final Diagnosis/Problem List - Final Discharge Diagnosis/Problem (1) Acute right-sided weakness Current Visit: Yes Status: Acute Code(s): R53.1 - WEAKNESS (2) COPD (chronic obstructive pulmonary disease) Current Visit: Yes Status: Acute (3) GERD (gastroesophageal reflux disease) Current Visit: Yes Status: Acute Code(s): K21.9 - GASTRO-ESOPHAGEAL REFLUX DISEASE WITHOUT ESOPHAGITIS (4) History of atrial fibrillation Current Visit: Yes Status: Acute Code(s): Z86.79 - PERSONAL HISTORY OF OTHER DISEASES OF THE CIRCULATORY SYSTEM (5) Hypothyroidism Current Visit: Yes Status: Acute Code(s): E03.9 - HYPOTHYROIDISM, UNSPECIFIED (6) Abdominal pain Current Visit: No Status: Acute Onset Date: ~10/07/17 Code(s): R10.9 - UNSPECIFIED ABDOMINAL PAIN (7) Acute UTI Current Visit: No Status: Acute Code(s): N39.0 - URINARY TRACT INFECTION, SITE NOT SPECIFIED (8) Anxiety Current Visit: No Status: Acute Code(s): F41.9 - ANXIETY DISORDER, UNSPECIFIED (9) CKD (chronic kidney disease) Current Visit: No Status: Acute Code(s): N18.9 - CHRONIC KIDNEY DISEASE, UNSPECIFIED (10) Migraine headache Current Visit: No Status: Acute Code(s): G43.909 - MIGRAINE, UNSP, NOT INTRACTABLE, WITHOUT STATUS MIGRAINOSUS - Discharge Prescriptions: New Cefdinir 300 mg PO BID 14 Days #7 cap Continue ALPRAZolam 1 MG [Xanax 1 mg] 1 mg PO TID Aspirin 81 mg PO DAILY Levothyroxine Sodium 50 Mcg [Synthroid 50 Mcg] 50 mcg PO DAILY Linaclotide [Linzess] 290 mcg PO DAILY Dexlansoprazole [Dexilant] 60 mg PO DAILY Albuterol 2.5 mg/3 ml Neb [Proventil 2.5 mg/3 ml Neb] 2.5 mg IH QID dilTIAZem HCl [Diltiazem 24Hr ER (Cd)] 120 mg PO DAILY Promethazine HCl 25 mg [Phenergan 25 mg] 25 mg PO BIDPRN PRN PRN Reason: Nausea Rizatriptan Benzoate [Maxalt] 10 mg PO DAILY PRN PRN Reason: Headache Apixaban [Eliquis] 5 mg PO BID Fluticasone/Umeclidin/Vilanter [Trelegy Ellipta 200-62.5-25] 1 each IH DAILY Sodium Bicarbonate 2 tab PO BID Cyanocobalamin (Vitamin B-12) [Vitamin B12] 1,000 mcg PO DAILY Cetirizine HCl [Zyrtec] 1 tab PO DAILY Magnesium Oxide 400 mg [Mag-Ox 400] 1 tab PO DAILY Prucalopride Succinate [Motegrity] 2 mg PO DAILY Omeprazole/Sodium Bicarbonate [Omeprazole-Bicarb 40-1,100 Cap] 1 each PO HS Follow up with: MARQUISE HENDERSON DO [Primary Care Provider] - (3-5 days)
== END 2022-11-30 13:23 | disposition home or self-care (01) ==
LOC: ED 15:53 → MED SURG 20:11
PROVIDERS: ADMIT Student in an Organized Health Care Education/Training Program; ATTEND Student in an Organized Health Care Education/Training Program
DX: R53.1 Weakness (principal); J44.9 Chronic obstructive pulmonary disease, unspecified; K21.9 Gastro-esophageal reflux disease without esophagitis; Z86.79 Personal history of other diseases of the circulatory system; E03.9 Hypothyroidism, unspecified; N39.0 Urinary tract infection, site not specified; F41.9 Anxiety disorder, unspecified; N18.9 Chronic kidney disease, unspecified; G43.909 Migraine, unspecified, not intractable, without status migrainosus; I48.91 Unspecified atrial fibrillation; Z79.01 Long term (current) use of anticoagulants; Z79.899 Other long term (current) drug therapy; Z20.828 Contact with and (suspected) exposure to other viral communicable diseases
CPT/HCPCS: 36415; 70450; 70496; 70498; 70551; 80053; 80061; 81001; 82947; 83036; 83605; 83721; 84443; 84484; 85025; 85027; 85610; 85730; 87040; 87086; 87493; 93005; 93041; 93306; 94640; 94760; 96360; 97161; 99285; 99291; Q3014; 87077; 87186; 93268; G0378; J0696; J1642; J7609; A9270-GY

== ENCOUNTER 2022-12-16 20:00 | Emergency (ER) | payer MEDICARE ==
--- NOTE | 2022-12-16 20:03 | ERPHSYRPT ---
- History of Present Illness Time Seen by Provider: 12/16/22 20:02 Allergies/Adverse Reactions: sumatriptan [From Imitrex] Allergy (Intermediate, Verified 11/28/22 16:36) Rash codeine Allergy (Mild, Verified 11/28/22 16:36) Rash MAKES SICK nitrofurantoin [From Macrobid] Allergy (Unknown, Verified 11/28/22 16:36) sulfamethoxazole [From Bactrim] Allergy (Unknown, Verified 11/28/22 16:36) trimethoprim [From Bactrim] Allergy (Unknown, Verified 11/28/22 16:36) sumatriptan succinate [From Imitrex] Allergy (Verified 11/28/22 16:36) morphine Adverse Reaction (Severe, Verified 11/28/22 16:36) Headache MIGRAINES fentanyl Adverse Reaction (Intermediate, Verified 11/28/22 16:36) Headache hydrocodone bitartrate [From Vicodin] Adverse Reaction (Mild, Verified 11/28/22 16:36) Vomiting hydromorphone [From Dilaudid] Adverse Reaction (Mild, Verified 11/28/22 16:36) pt states makes heache worse. Home Medications: ALPRAZolam 1 MG [Xanax 1 mg] 1 mg PO TID 02/17/13 [History] Aspirin 81 mg PO DAILY 09/11/16 [History] Levothyroxine Sodium 50 Mcg [Synthroid 50 Mcg] 50 mcg PO DAILY 07/06/17 [History] Linaclotide [Linzess] 290 mcg PO DAILY 10/07/17 [History] Dexlansoprazole [Dexilant] 60 mg PO DAILY 01/21/20 [History] Albuterol 2.5 mg/3 ml Neb [Proventil 2.5 mg/3 ml Neb] 2.5 mg IH QID 07/23/20 [History] dilTIAZem HCl [Diltiazem 24Hr ER (Cd)] 120 mg PO DAILY 09/29/21 [History] Promethazine HCl 25 mg [Phenergan 25 mg] 25 mg PO BIDPRN PRN 01/18/22 [History] Apixaban [Eliquis] 5 mg PO BID 07/02/22 [History] Fluticasone/Umeclidin/Vilanter [Trelegy Ellipta 200-62.5-25] 1 each IH DAILY 07/02/22 [History] Rizatriptan Benzoate [Maxalt] 10 mg PO DAILY PRN 07/02/22 [History] Cetirizine HCl [Zyrtec] 1 tab PO DAILY 11/08/22 [History] Cyanocobalamin (Vitamin B-12) [Vitamin B12] 1,000 mcg PO DAILY 11/08/22 [History] Magnesium Oxide 400 mg [Mag-Ox 400] 1 tab PO DAILY 11/08/22 [History] Sodium Bicarbonate 2 tab PO BID 11/08/22 [History] Omeprazole/Sodium Bicarbonate [Omeprazole-Bicarb 40-1,100 Cap] 1 each PO HS 11/28/22 [History] Prucalopride Succinate [Motegrity] 2 mg PO DAILY 11/28/22 [History] Hx Tetanus, Diphtheria Vaccination/Date Given: No Hx Influenza Vaccination/Date Given: Yes Hx Pneumococcal Vaccination/Date Given: Yes Travel Risk - Vaccine Status Have you recieved a 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: Yes 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 - Review of Systems Constitutional: No Symptoms, No Fever, No Chills Eyes: No Symptoms Ears, Nose, & Throat: No Symptoms Respiratory: No Symptoms, No Cough, No Dyspnea Cardiac: No Symptoms, No Chest Pain, No Edema, No Syncope Abdominal/Gastrointestinal: No Symptoms, No Abdominal Pain, No Nausea, No Vomiting, No Diarrhea Genitourinary Symptoms: No Symptoms, No Dysuria Musculoskeletal: No Symptoms, No Back Pain, No Neck Pain Skin: No Symptoms, No Rash Neurological: No Symptoms, No Dizziness, No Focal Weakness, No Sensory Changes Psychological: No Symptoms Endocrine: No Symptoms Hematologic/Lymphatic: No Symptoms Immunological/Allergic: No Symptoms All Other Systems: Reviewed and Negative - Past Medical History Pertinent Past Medical History: Yes Neurological History: Migraines ENT History: Cataracts Cardiac History: No Pertinent History Respiratory History: Bronchitis, COPD, Pulmonary Embolism Endocrine Medical History: Hypothyroidism Musculoskeletal History: Osteoarthritis GI Medical History: GERD, Other History: Other Psycho-Social History: Anxiety, Panic Disorder Female Reproductive Disorders: No Pertinent History Other Medical History: frequent uti's, chronic pseudo obstruction, blood clot - Past Surgical History Past Surgical History: Yes Neuro Surgical History: No Pertinent History Cardiac: No Pertinent History Respiratory: No Pertinent History Gastrointestinal: Cholecystectomy, Other Genitourinary: No Pertinent History Musculoskeletal: No Pertinent History Female Surgical History: No Pertinent History Other Surgical History: all of large intestine removed and most of small intestines removed. - Social History Smoking Status: Never smoker Exposure to second hand smoke: No Alcohol Use: None Drug Use: none Patient Lives Alone: Yes Significant Family History: no pertinent family hx - Physical Exam General Appearance: no apparent distress, alert Eye Exam: PERRL/EOMI, eyes nml inspection Ears, Nose, Throat Exam: normal ENT inspection, moist mucous membranes Neck Exam: normal inspection, non-tender, supple, full range of motion Respiratory Exam: normal breath sounds, lungs clear, airway intact, No respiratory distress Cardiovascular Exam: regular rate/rhythm, normal heart sounds, normal peripheral pulses Gastrointestinal/Abdomen Exam: soft, No tenderness, No mass Back Exam: normal inspection, No CVA tenderness, No vertebral tenderness Extremity Exam: normal inspection, normal range of motion Neurologic Exam: alert, 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, cooperative, normal mood/affect, sensation nml, No motor deficits Skin Exam: normal color, warm, dry SpO2 Interpretation: normal O2 Delivery: Room Air - Departure Referrals: MARQUISE HENDERSON DO [Primary Care Provider] - Follow up/PCP as directed
[2022-12-16 20:36] VITALS: O2SAT 95
--- NOTE | 2022-12-16 20:40 | ERPHSYRPT ---
- History of Present Illness Time Seen by Provider: 12/16/22 20:02 Source: patient Exam Limitations: no limitations Patient Subjective Stated Complaint: UTI Triage Nursing Assessment: pt to ED c/o possible UTI. seen in this ED last week and given cefindir, still taking that. states her sx have not improved. burning with urination and low abd pressure reported. rates 8/10. Physician History: Patient is a 67-year-old female presents to our ED for evaluation of dysuria and suprapubic pressure. Patient admits to history of UTIs. Patient was diagnosed with a UTI last week. Patient currently on cefdinir. Patient states her symptoms have not resolved. No other complaints. No fevers no back pain. No nausea or vomiting. No diarrhea. No rash. Symptoms are mild to moderate in intensity. No specific worsening improving factors. Patient voices no other complaints or concerns at this time. Patient declined pain medication. Portions of this note were created with voice recognition technology. There may be grammatical, spelling, punctuation or sound alike errors Timing/Duration: week(s) (1 week) Severity: moderate Modifying Factors: Improves With: nothing Associated Symptoms: denies symptoms Allergies/Adverse Reactions: sumatriptan [From Imitrex] Allergy (Intermediate, Verified 11/28/22 16:36) Rash codeine Allergy (Mild, Verified 11/28/22 16:36) Rash MAKES SICK nitrofurantoin [From Macrobid] Allergy (Unknown, Verified 11/28/22 16:36) sulfamethoxazole [From Bactrim] Allergy (Unknown, Verified 11/28/22 16:36) trimethoprim [From Bactrim] Allergy (Unknown, Verified 11/28/22 16:36) sumatriptan succinate [From Imitrex] Allergy (Verified 11/28/22 16:36) morphine Adverse Reaction (Severe, Verified 11/28/22 16:36) Headache MIGRAINES fentanyl Adverse Reaction (Intermediate, Verified 11/28/22 16:36) Headache hydrocodone bitartrate [From Vicodin] Adverse Reaction (Mild, Verified 11/28/22 16:36) Vomiting hydromorphone [From Dilaudid] Adverse Reaction (Mild, Verified 11/28/22 16:36) pt states makes heache worse. Home Medications: ALPRAZolam 1 MG [Xanax 1 mg] 1 mg PO TID 02/17/13 [History] Aspirin 81 mg PO DAILY 09/11/16 [History] Levothyroxine Sodium 50 Mcg [Synthroid 50 Mcg] 50 mcg PO DAILY 07/06/17 [History] Linaclotide [Linzess] 290 mcg PO DAILY 10/07/17 [History] Dexlansoprazole [Dexilant] 60 mg PO DAILY 01/21/20 [History] Albuterol 2.5 mg/3 ml Neb [Proventil 2.5 mg/3 ml Neb] 2.5 mg IH QID 10/05 [History] dilTIAZem HCl [Diltiazem 24Hr ER (Cd)] 120 mg PO DAILY 09/29/21 [History] Promethazine HCl 25 mg [Phenergan 25 mg] 25 mg PO BIDPRN PRN 01/18/22 [History] Apixaban [Eliquis] 5 mg PO BID 07/02/22 [History] Fluticasone/Umeclidin/Vilanter [Trelegy Ellipta 200-62.5-25] 1 each IH DAILY 07/02/22 [History] Rizatriptan Benzoate [Maxalt] 10 mg PO DAILY PRN 07/02/22 [History] Cetirizine HCl [Zyrtec] 1 tab PO DAILY 11/08/22 [History] Cyanocobalamin (Vitamin B-12) [Vitamin B12] 1,000 mcg PO DAILY 11/08/22 [History] Magnesium Oxide 400 mg [Mag-Ox 400] 1 tab PO DAILY 11/08/22 [History] Sodium Bicarbonate 2 tab PO BID 11/08/22 [History] Omeprazole/Sodium Bicarbonate [Omeprazole-Bicarb 40-1,100 Cap] 1 each PO HS 11/28/22 [History] Prucalopride Succinate [Motegrity] 2 mg PO DAILY 11/28/22 [History] Hx Tetanus, Diphtheria Vaccination/Date Given: No Hx Influenza Vaccination/Date Given: No Hx Pneumococcal Vaccination/Date Given: No Travel Risk - International Travel Have you traveled outside of the country in past 3 weeks: No - Coronavirus Screening Are you exhibiting any of the following symptoms?: No Close contact with a COVID-19 positive Pt in past 14-21 Days: No - Vaccine Status Have you recieved a 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 - Review of Systems Constitutional: No Symptoms, No Fever, No Chills Eyes: No Symptoms Ears, Nose, & Throat: No Symptoms Respiratory: No Symptoms, No Cough, No Dyspnea Cardiac: No Symptoms, No Chest Pain, No Edema, No Syncope Abdominal/Gastrointestinal: No Symptoms, No Abdominal Pain, No Nausea, No Vomiting, No Diarrhea Genitourinary Symptoms: No Symptoms, No Dysuria Musculoskeletal: No Symptoms, No Back Pain, No Neck Pain Skin: No Symptoms, No Rash Neurological: No Symptoms, No Dizziness, No Focal Weakness, No Sensory Changes Psychological: No Symptoms Endocrine: No Symptoms Hematologic/Lymphatic: No Symptoms Immunological/Allergic: No Symptoms All Other Systems: Reviewed and Negative - Past Medical History Pertinent Past Medical History: Yes Neurological History: Migraines ENT History: Cataracts Cardiac History: No Pertinent History Respiratory History: Bronchitis, COPD, Pulmonary Embolism Endocrine Medical History: Hypothyroidism Musculoskeletal History: Osteoarthritis GI Medical History: GERD, Other History: Other Psycho-Social History: Anxiety, Panic Disorder Female Reproductive Disorders: No Pertinent History Other Medical History: frequent uti's, chronic pseudo obstruction, blood clot - Past Surgical History Past Surgical History: Yes Neuro Surgical History: No Pertinent History Cardiac: No Pertinent History Respiratory: No Pertinent History Gastrointestinal: Cholecystectomy, Other Genitourinary: No Pertinent History Musculoskeletal: No Pertinent History Female Surgical History: No Pertinent History Other Surgical History: all of large intestine removed and most of small intestines removed. - Social History Smoking Status: Never smoker Exposure to second hand smoke: No Alcohol Use: None Drug Use: none Patient Lives Alone: Yes Significant Family History: no pertinent family hx - Nursing Vital Signs Nursing Vital Signs: Initial Vital Signs Pulse Rate 88 12/16/22 20:17 Respiratory Rate 18 12/16/22 20:17 Blood Pressure 121/97 12/16/22 20:17 O2 Sat by Pulse Oximetry 95 12/16/22 20:17 Pain Scale Pain Intensity 8 - Physical Exam General Appearance: no apparent distress, alert Eye Exam: PERRL/EOMI, eyes nml inspection Ears, Nose, Throat Exam: normal ENT inspection, TMs normal, pharynx normal, moist mucous membranes Neck Exam: normal inspection, non-tender, supple, full range of motion Respiratory Exam: normal breath sounds, lungs clear, airway intact, No respiratory distress Cardiovascular Exam: regular rate/rhythm, normal heart sounds, normal peripheral pulses Gastrointestinal/Abdomen Exam: soft, normal bowel sounds, No tenderness, No mass Back Exam: normal inspection, normal range of motion, No CVA tenderness, No vertebral tenderness Extremity Exam: normal inspection, normal range of motion, pelvis stable Neurologic Exam: alert, 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, cooperative, normal mood/affect, nml cerebellar function, nml station & gait, sensation nml, No motor deficits Skin Exam: normal color, warm, dry, No rash Lymphatic Exam: No adenopathy SpO2 Interpretation: normal SpO2: 95 O2 Delivery: Room Air - Course Nursing assessment & vital signs reviewed: Yes Ordered Tests: Active Orders 24 hr Category Date Time Status CULTURE,URINE Stat Lab 12/16/22 20:31 Received UA W/RFX UR CULTURE Stat Lab 12/16/22 20:31 Completed Lab/Rad Data: Laboratory Results 12/16/22 Range/Units 20:31 Urine Color Yellow (Yellow) Urine Appearance Cloudy A (Clear) Urine pH 5.5 (4.6-8.0) Ur Specific [place] >=1.030 A (1.005-1.030) Urine Protein 30 (Negative) Urine Glucose (UA) Negative (Negative) mg/dL Urine Ketones Negative (Negative) Urine Blood Negative (Negative) Urine Nitrite Negative (Negative) Urine Bilirubin Negative (Negative) Urine Urobilinogen 0.2 (0.2) mg/dL Ur Leukocyte Esterase Small A (Negative) U Hyaline Cast (Auto) None Seen (0-2) /LPF Urine Microscopic RBC 0-2 (0-5) /HPF Urine Microscopic WBC 6-10 A (0-5) /HPF Ur Epithelial Cells Rare (None Seen) /HPF Urine Bacteria Rare A (None Seen) /HPF Urine Culture Reflexed YES (NO) - Progress Progress: improved Progress Note: Six 7-year-old female presents to our ED for evaluation of urinary symptomology. Patient currently on Omnicef. Symptoms improved but not resolved. Patient gets frequent urinary tract infections. Patient states that Omnicef has helped her. She is now requesting a dose of Rocephin as this has also helped her in the past. We will try to extend her dose of Omnicef to see if this will improve her symptoms. Urine cultures pending. Patient agrees to follow-up with her primary care doctor within 48 hours for reevaluation. Portions of this note were created with voice recognition technology. There may be grammatical, spelling, punctuation or sound alike errors Complexity of problems addressed is low acute uncomplicated No critical care time Complexity of data reviewed and analyzed is moderate. Test ordered test reviewed. Results analyzed. Clinical correlation made between the results and history and physical examination. Risk of complication and a risk morbidity/mortality of patient management is moderate. A prescription for cefdinir forwarded to patient's pharmacy Vital stable. Time spent to discharge patient is approximately 15 minutes. [facility] of care established for shared decision making. No social determinants of health present to impede follow-up. Portions of this note were created with voice recognition technology. There may be grammatical, spelling, punctuation or sound alike errors Patient declined pain medication 12/16/22 21:45 12/16/22 21:48 Counseled pt/family regarding: lab results, diagnosis, need for follow-up - Departure Departure Disposition: Home Clinical Impression: UTI (urinary tract infection) Condition: Stable Critical Care Time: No Referrals: MARQUISE HENDERSON DO [Primary Care Provider] - Follow up/PCP as directed Additional Instructions: Discharge/Care Plan GEOVANNY FREY was seen on 12/16/22 in the Emergency Room. The patient was counseled regarding Diagnosis,Lab results, Imaging studies, need for follow up and when to return to the Emergency Room. Prescriptions given: Discharge Note I have spoken with the patient and/or caregivers. I have explained the patient's condition, diagnosis and treatment plan based on the information available to me at this time. I have answered the patient's and/or caregiver's questions and addressed any concerns. The patient and/or caregivers have as good understanding of the patient's diagnosis, condition and treatment plan as can be expected at this point. The vital signs have been stable. The patient's condition is stable and appropriate for discharge from the emergency department. The patient will pursue further outpatient evaluation with the primary care physician or other designated or consulting physician as outlined in the discharge instructions. The patient and/or caregivers are agreeable to this plan of care and follow-up instructions have been explained in detail. The patient and/or caregivers have received these instruction. The patient/and or caregivers are aware that any significant change in condition or worsening of symptoms should prompt an immediate return to this or the closest emergency department or call 911. Prescriptions: Cefdinir 300 mg PO BID 7 Days #14 cap
[2022-12-16 21:02] VITALS: BP 100/70; PULSE 85; RESP 16
[2022-12-16 21:06] LABS: ADD URINE CULTURE? YES (NO); Appearance Cloudy (Clear); Bacteria Rare /HPF (None Seen); Bilirubin Negative (Negative); Blood Negative (Negative); Epithelial Cells Rare /HPF (None Seen); Glucose, Urine Negative (Negative); Hyaline Casts None Seen /LPF (0-2); Ketones Negative (Negative); Leukocyte Esterase Small (Negative); Nitrite Negative (Negative); Ph 5.5 (4.6-8.0); Protein,Urine Dip 30 (Negative); RBC 0-2 /HPF (0-5); Specific Gravity >=1.030 (1.005-1.030); Urobilinogen 0.2 mg/dL (0.2)
[2022-12-16] MEDS ORDERED: Rocephin 1000 MG INJ IM ONE (21:40)
[2022-12-16] MEDS ORDERED: Rocephin 1000 MG INJ ONE (21:44)
[2022-12-16] MEDS ORDERED: XYLOCAINE 1% HCL 20 ML MDV ONE (21:45)
== END 2022-12-16 22:01 | disposition home or self-care (01) ==
LOC: ED 20:00
DX: N39.0 Urinary tract infection, site not specified (principal); R30.0 Dysuria; R10.2 Pelvic and perineal pain; Z79.01 Long term (current) use of anticoagulants; Z79.899 Other long term (current) drug therapy
CPT/HCPCS: 81001; 87086; 96372; 99283; J0696

== ENCOUNTER 2022-12-23 00:36 | Emergency (ER) | payer MEDICARE ==
[2022-12-23] MEDS ORDERED: TORAdol 30 mg Injection IM ONE (00:41)
[2022-12-23] MEDS ORDERED: TORAdol 30 mg Injection ONE (00:44)
[2022-12-23 00:48] VITALS: BP 104/66; PULSE 77; RESP 18
[2022-12-23 00:52] VITALS: O2SAT 98
--- NOTE | 2022-12-23 00:52 | ERPHSYRPT ---
- History of Present Illness Time Seen by Provider: 12/23/22 00:48 Source: patient Exam Limitations: no limitations Physician History: Patient is a 7-year-old female with chronic recurrent migraines presents to our ED for evaluation of a migraine headache. Days migraine headache is typical of her usual migraine headaches. Patient was prescribed Maxalt by her neurologist. However patient has not taken her Maxalt for her headache because she believes her primary care doctor told her that Maxalt can cause TIAs. Patient has not attempted to treat her migraine headache. No other complaints no other symptomology. No numbness tingling or weakness. No nausea vomiting or diaphoresis. Symptoms are mild to moderate in intensity. Patient rates her pain 8 out of 10 at its worst. Headache is global. No associated fever. No neck pain. No nuchal rigidity. No meningeal signs. Patient otherwise feels well. Patient states Toradol has helped her headache in the past. Patient is requesting the same. Patient voices no other complaints or concerns at this time. Portions of this note were created with voice recognition technology. There may be grammatical, spelling, punctuation or sound alike errors Timing/Duration: day(s) (2 days) Quality: aching Head Pain Location: parietal Severity of Pain-Max: moderate Severity of Pain-Current: mild Recent Head Trauma: no recent headache/trauma, frequent headaches Modifying Factors: Improves With: exposure to light, noise Associated Symptoms: No confusion, No dizziness, No fever/chills, No light- headedness, No loss of consciousness, No nasal drainage, No numbness in legs/feet, No sweating, No sinus infection, No visual disturbance Previous symptoms: same symptoms as today Allergies/Adverse Reactions: sumatriptan [From Imitrex] Allergy (Intermediate, Verified 12/23/22 00:42) Rash codeine Allergy (Mild, Verified 12/23/22 00:42) Rash MAKES SICK nitrofurantoin [From Macrobid] Allergy (Unknown, Verified 12/23/22 00:42) sulfamethoxazole [From Bactrim] Allergy (Unknown, Verified 12/23/22 00:42) trimethoprim [From Bactrim] Allergy (Unknown, Verified 12/23/22 00:42) sumatriptan succinate [From Imitrex] Allergy (Verified 12/23/22 00:42) morphine Adverse Reaction (Severe, Verified 12/23/22 00:42) Headache MIGRAINES fentanyl Adverse Reaction (Intermediate, Verified 12/23/22 00:42) Headache hydrocodone bitartrate [From Vicodin] Adverse Reaction (Mild, Verified 12/23/22 00:42) Vomiting hydromorphone [From Dilaudid] Adverse Reaction (Mild, Verified 12/23/22 00:42) pt states makes heache worse. Home Medications: ALPRAZolam 1 MG [Xanax 1 mg] 1 mg PO TID 02/17/13 [History] Aspirin 81 mg PO DAILY 09/11/16 [History] Levothyroxine Sodium 50 Mcg [Synthroid 50 Mcg] 50 mcg PO DAILY 07/06/17 [History] Linaclotide [Linzess] 290 mcg PO DAILY 10/07/17 [History] Dexlansoprazole [Dexilant] 60 mg PO DAILY 01/21/20 [History] Albuterol 2.5 mg/3 ml Neb [Proventil 2.5 mg/3 ml Neb] 2.5 mg IH QID 07/23 [History] dilTIAZem HCl [Diltiazem 24Hr ER (Cd)] 120 mg PO DAILY 09/29/21 [History] Promethazine HCl 25 mg [Phenergan 25 mg] 25 mg PO BIDPRN PRN 01/18/22 [History] Apixaban [Eliquis] 5 mg PO BID 07/02/22 [History] Fluticasone/Umeclidin/Vilanter [Trelegy Ellipta 200-62.5-25] 1 each IH DAILY 07/02/22 [History] Rizatriptan Benzoate [Maxalt] 10 mg PO DAILY PRN 07/02/22 [History] Cetirizine HCl [Zyrtec] 1 tab PO DAILY 11/08/22 [History] Cyanocobalamin (Vitamin B-12) [Vitamin B12] 1,000 mcg PO DAILY 11/08/22 [History] Magnesium Oxide 400 mg [Mag-Ox 400] 1 tab PO DAILY 11/08/22 [History] Sodium Bicarbonate 2 tab PO BID 11/08/22 [History] Omeprazole/Sodium Bicarbonate [Omeprazole-Bicarb 40-1,100 Cap] 1 each PO HS 11/28/22 [History] Prucalopride Succinate [Motegrity] 2 mg PO DAILY 11/28/22 [History] Hx Tetanus, Diphtheria Vaccination/Date Given: No Hx Influenza Vaccination/Date Given: No Hx Pneumococcal Vaccination/Date Given: No Travel Risk - Vaccine Status Have you recieved a 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: Yes Family Physician: [facility] - Vaccination Dates Date of 2cond Vaccination (if applicable): 2021 Dates if Unknown: ? - Review of Systems Constitutional: No Symptoms, No Fever, No Chills Eyes: No Symptoms Ears, Nose, & Throat: No Symptoms Respiratory: No Symptoms, No Cough, No Dyspnea Cardiac: No Symptoms, No Chest Pain, No Edema, No Syncope Abdominal/Gastrointestinal: No Symptoms, No Abdominal Pain, No Nausea, No Vomiting, No Diarrhea Genitourinary Symptoms: No Symptoms, No Dysuria Musculoskeletal: No Symptoms, No Back Pain, No Neck Pain Skin: No Symptoms, No Rash Neurological: No Symptoms, No Dizziness, No Focal Weakness, No Sensory Changes Psychological: No Symptoms Endocrine: No Symptoms Hematologic/Lymphatic: No Symptoms Immunological/Allergic: No Symptoms All Other Systems: Reviewed and Negative - Past Medical History Pertinent Past Medical History: Yes Neurological History: Migraines ENT History: Cataracts Cardiac History: No Pertinent History Respiratory History: Bronchitis, COPD, Pulmonary Embolism Endocrine Medical History: Hypothyroidism Musculoskeletal History: Osteoarthritis GI Medical History: GERD, Other History: Other Psycho-Social History: Anxiety, Panic Disorder Female Reproductive Disorders: No Pertinent History Other Medical History: frequent uti's, chronic pseudo obstruction, blood clot - Past Surgical History Past Surgical History: Yes Neuro Surgical History: No Pertinent History Cardiac: No Pertinent History Respiratory: No Pertinent History Gastrointestinal: Cholecystectomy, Other Genitourinary: No Pertinent History Musculoskeletal: No Pertinent History Female Surgical History: No Pertinent History Other Surgical History: all of large intestine removed and most of small intestines removed. - Social History Smoking Status: Never smoker Exposure to second hand smoke: No Alcohol Use: None Drug Use: none Patient Lives Alone: Yes Significant Family History: no pertinent family hx - Physical Exam General Appearance: no apparent distress Eye Exam: PERRL/EOMI Ears, Nose, Throat Exam: normal ENT inspection, moist mucous membranes Neck Exam: normal inspection, supple, full range of motion, No meningismus Respiratory Exam: normal breath sounds, lungs clear, respiratory distress, airway intact Cardiovascular Exam: regular rate/rhythm, normal heart sounds, normal peripheral pulses Gastrointestinal/Abdominal Exam: soft, No tenderness, No distention Back Exam: normal inspection, normal range of motion Extremity Exam: normal inspection, normal range of motion 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, 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, cooperative 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 Exam: normal hearing, normal speech, PERRL, No abnormal eye position, No facial droop Coordination/Gait Exam: normal finger to nose, normal gait, normal cerebellar function Motor/Sensory Exam: no motor deficit, no sensory deficit, No no pronator drift Skin Exam: normal color, warm, dry, No rash SpO2 Interpretation: normal SpO2: 98 O2 Delivery: Room Air - Course Nursing assessment & vital signs reviewed: Yes Ordered Tests: Medication Summary Discontinued Medications Generic Name Dose Route Start Last Admin Trade Name Freq PRN Reason Stop Dose Admin Ketorolac Tromethamine 30 mg 12/23/22 00:41 Ketorolac Tromethamine 30 Mg/Ml Inj IM 12/23/22 00:42 STAT ONE - Progress Progress: improved Air Movement: good Progress Note: This is a 7-year-old female presents to our ED for evaluation of headache. Headache is no different than her usual migraine headache. Patient did not take her Maxalt because she believes it can cause a TIA. Patient received IM Toradol. Patient states her headache improved and she is not ready for discharge. At discharge patient requested additional antibiotic for her chronic urinary tract infection. However patient still has antibiotic leftover from her previous visit approximately 1 week ago. Patient advised to follow-up with her primary care doctor for an extension if indicated. Repeat neurologic exam is within normal limits. Will discharge home. Patient agrees to follow-up with her primary care doctor within 48 hours for reevaluation. Portions of this note were created with voice recognition technology. There may be grammatical, spelling, punctuation or sound alike errors Complexity of problems addressed is moderate acute complicated Complex of data reviewed and analyzed is none. Diagnosis made based on history and physical examination. No specialized testing ordered or indicated at this time Risk of complication and a risk morbidity/mortality of patient management is low. Time spent to discharge patient is approximately 10 minutes. Vital stable. Plan of care established for shared decision making. No social determinants of health present Sapyta follow-up. Portions of this note were created with voice recognition technology. There may be grammatical, spelling, punctuation or sound alike errors 12/23/22 01:08 Blood Culture(s) Obtained: No Antibiotics given: No Counseled pt/family regarding: diagnosis, need for follow-up - Departure Departure Disposition: Home Clinical Impression: Migraine Condition: Stable Critical Care Time: No Referrals: MARQUISE HENDERSON DO [Primary Care Provider] - Follow up/PCP as directed Additional Instructions: Discharge/Care Plan GEOVANNY FREY was seen on 12/23/22 in the Emergency Room. The patient was counseled regarding Diagnosis,Lab results, Imaging studies, need for follow up and when to return to the Emergency Room. Prescriptions given: Discharge Note I have spoken with the patient and/or caregivers. I have explained the patient's condition, diagnosis and treatment plan based on the information available to me at this time. I have answered the patient's and/or caregiver's questions and addressed any concerns. The patient and/or caregivers have as good understanding of the patient's diagnosis, condition and treatment plan as can be expected at this point. The vital signs have been stable. The patient's condition is stable and appropriate for discharge from the emergency department. The patient will pursue further outpatient evaluation with the primary care physician or other designated or consulting physician as outlined in the discharge instructions. The patient and/or caregivers are agreeable to this plan of care and follow-up instructions have been explained in detail. The patient and/or caregivers have received these instruction. The patient/and or caregivers are aware that any significant change in condition or worsening of symptoms should prompt an immediate return to this or the closest emergency department or call 911.
== END 2022-12-23 01:06 | disposition home or self-care (01) ==
LOC: ED 00:36
DX: G43.909 Migraine, unspecified, not intractable, without status migrainosus (principal); Z79.01 Long term (current) use of anticoagulants; Z79.899 Other long term (current) drug therapy
CPT/HCPCS: 96372; 99282; J1885

== ENCOUNTER 2023-01-15 16:40 | Emergency (ER) | payer MEDICARE ==
[2023-01-15 16:53] VITALS: BP 132/68; PULSE 101; RESP 22; TEMP 98.2; O2SAT 97
[2023-01-15] MEDS ORDERED: Rocephin 1000 MG INJ IM ONE (17:16)
[2023-01-15] MEDS ORDERED: Rocephin 1000 MG INJ ONE (17:19)
[2023-01-15] MEDS ORDERED: XYLOCAINE 1% HCL 20 ML MDV ONE (17:19)
--- NOTE | 2023-01-15 17:20 | ERPHSYRPT ---
- History of Present Illness Source: patient Exam Limitations: no limitations Patient Subjective Stated Complaint: Pt states "I have a UTI again, I hurt so bad." Triage Nursing Assessment: Pt presented alert and oriented X 3, skin pwd. Pt ambulates with an upright steady gait, able to speak in clear full sentences. Pt resting comfortably on the bed. 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 coli and Pseudomonas aeruginosa. She is not on any antibiotics at this time. Pain is mild, and she denies a fever at this time. She denies nausea, vomiting, and diarrhea. Timing/Duration: other (2 to 3 days/chronic) Activites at Onset: rest Quality: pressure Onset Location: suprapubic Pain Radiation: none Severity of Pain-Max: moderate Severity of Pain-Current: mild Prior abdominal problems: UTI Sexual intercourse history: non-contributory Modifying Factors: Improves With: nothing Associated Symptoms: denies symptoms, urinary frequency Allergies/Adverse Reactions: sumatriptan [From Imitrex] Allergy (Intermediate, Verified 12/23/22 00:42) Rash codeine Allergy (Mild, Verified 12/23/22 00:42) Rash MAKES SICK nitrofurantoin [From Macrobid] Allergy (Unknown, Verified 12/23/22 00:42) sulfamethoxazole [From Bactrim] Allergy (Unknown, Verified 12/23/22 00:42) trimethoprim [From Bactrim] Allergy (Unknown, Verified 12/23/22 00:42) sumatriptan succinate [From Imitrex] Allergy (Verified 12/23/22 00:42) morphine Adverse Reaction (Severe, Verified 12/23/22 00:42) Headache MIGRAINES fentanyl Adverse Reaction (Intermediate, Verified 12/23/22 00:42) Headache hydrocodone bitartrate [From Vicodin] Adverse Reaction (Mild, Verified 12/23/22 00:42) Vomiting hydromorphone [From Dilaudid] Adverse Reaction (Mild, Verified 12/23/22 00:42) pt states makes heache worse. Home Medications: ALPRAZolam 1 MG [Xanax 1 mg] 1 mg PO TID 02/17/13 [History] Aspirin 81 mg PO DAILY 09/11/16 [History] Levothyroxine Sodium 50 Mcg [Synthroid 50 Mcg] 50 mcg PO DAILY 07/06/17 [History] Linaclotide [Linzess] 290 mcg PO DAILY 10/07/17 [History] Dexlansoprazole [Dexilant] 60 mg PO DAILY 01/21/20 [History] Albuterol 2.5 mg/3 ml Neb [Proventil 2.5 mg/3 ml Neb] 2.5 mg IH QID 07/23/20 [History] dilTIAZem HCl [Diltiazem 24Hr ER (Cd)] 120 mg PO DAILY 09/29/21 [History] Promethazine HCl 25 mg [Phenergan 25 mg] 25 mg PO BIDPRN PRN 01/18/22 [History] Apixaban [Eliquis] 5 mg PO BID 07/02/22 [History] Fluticasone/Umeclidin/Vilanter [Trelegy Ellipta 200-62.5-25] 1 each IH DAILY 07/02/22 [History] Cetirizine HCl [Zyrtec] 1 tab PO DAILY 11/08/22 [History] Cyanocobalamin (Vitamin B-12) [Vitamin B12] 1,000 mcg PO DAILY 11/08/22 [History] Magnesium Oxide 400 mg [Mag-Ox 400] 1 tab PO DAILY 11/08/22 [History] Sodium Bicarbonate 2 tab PO BID 11/08/22 [History] Omeprazole/Sodium Bicarbonate [Omeprazole-Bicarb 40-1,100 Cap] 1 each PO HS 11/28/22 [History] Prucalopride Succinate [Motegrity] 2 mg PO DAILY 11/28/22 [History] Hx Tetanus, Diphtheria Vaccination/Date Given: No Hx Influenza Vaccination/Date Given: No Hx Pneumococcal Vaccination/Date Given: No Travel Risk - International Travel Have you traveled outside of the country in past 3 weeks: No - Coronavirus Screening Are you exhibiting any of the following symptoms?: No Close contact with a COVID-19 positive Pt in past 14-21 Days: No - Vaccine Status Have you recieved a 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: Yes 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 - Review of Systems Constitutional: No Symptoms Eyes: No Symptoms Ears, Nose, & Throat: No Symptoms Respiratory: No Symptoms Cardiac: No Symptoms Abdominal/Gastrointestinal: No Symptoms, Abdominal Pain Genitourinary Symptoms: No Symptoms, Dysuria, Frequency Musculoskeletal: No Symptoms Skin: No Symptoms Neurological: No Symptoms Psychological: No Symptoms Endocrine: No Symptoms Hematologic/Lymphatic: No Symptoms Immunological/Allergic: No Symptoms - Past Medical History Pertinent Past Medical History: Yes Neurological History: Migraines ENT History: Cataracts Cardiac History: No Pertinent History Respiratory History: Bronchitis, COPD, Pulmonary Embolism Endocrine Medical History: Hypothyroidism Musculoskeletal History: Osteoarthritis GI Medical History: GERD, Other History: Other Psycho-Social History: Anxiety, Panic Disorder Female Reproductive Disorders: No Pertinent History Other Medical History: frequent uti's, chronic pseudo obstruction, blood clot - Past Surgical History Past Surgical History: Yes Neuro Surgical History: No Pertinent History Cardiac: No Pertinent History Respiratory: No Pertinent History Gastrointestinal: Cholecystectomy, Other Genitourinary: No Pertinent History Musculoskeletal: No Pertinent History Female Surgical History: No Pertinent History Other Surgical History: all of large intestine removed and most of small intestines removed. - Social History Smoking Status: Never smoker Exposure to second hand smoke: No Alcohol Use: None Drug Use: none Patient Lives Alone: Yes Significant Family History: no pertinent family hx - Nursing Vital Signs Nursing Vital Signs: Initial Vital Signs Temperature 98.2 F 01/15/23 16:49 Pulse Rate 101 H 01/15/23 16:49 Respiratory Rate 22 01/15/23 16:49 Blood Pressure 132/68 01/15/23 16:49 O2 Sat by Pulse Oximetry 97 01/15/23 16:49 Pain Scale Pain Intensity 6 Mildly tachy - Physical Exam General Appearance: no apparent distress Eye Exam: PERRL/EOMI, eyes nml inspection Ears, Nose, Throat Exam: normal ENT inspection, TMs normal, pharynx normal, moist mucous membranes Neck Exam: normal inspection Respiratory Exam: other (Faint rales at bilateral bases but overall clear. Patient is 2 L O2 dependent chronically.) Cardiovascular Exam: regular rate/rhythm (Tachy on vital signs but regular rate rhythm without heaves, gallops, rubs, or murmurs.) Gastrointestinal/Abdomen Exam: soft, normal bowel sounds, tenderness (Very mild suprapubic tenderness at best without guarding or rebound.) Pelvic Exam: not done Back Exam: normal inspection, normal range of motion, No CVA tenderness Extremity Exam: normal inspection, normal range of motion Neurologic Exam: alert, 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, cooperative, settlement technician II-XII nml as tested, normal mood/affect, nml cerebellar function, nml station & gait, sensation nml Skin Exam: normal color, warm, dry Lymphatic Exam: No adenopathy SpO2 Interpretation: normal SpO2: 97 O2 Delivery: Room Air - Course Nursing assessment & vital signs reviewed: Yes Ordered Tests: Medication Summary Discontinued Medications Generic Name Dose Route Start Last Admin Trade Name Elton PRN Reason Stop Dose Admin Ceftriaxone Sodium 1,000 mg 01/15/23 17:16 01/15/23 17:36 Ceftriaxone Sodium 1000 Mg Inj Vial IM 01/15/23 17:17 1,000 mg STAT ONE Administration Ceftriaxone Sodium Confirm 01/15/23 17:19 Ceftriaxone Sodium 1000 Mg Inj Vial Administered 01/15/23 17:20 Dose 1,000 mg .ROUTE .STK-MED ONE Lidocaine HCl Confirm 01/15/23 17:19 Lidocaine Hcl 1% 20 Ml Mdv 20 Ml Ml Administered 01/15/23 17:20 Dose 3 ml .ROUTE .STK-MED ONE - Progress Progress Note: 01/15/23 18:22 Nursing note and vital signs reviewed. No food or housing insecurities noted. Urinalysis reviewed from 01/13/2023 which revealed E. coli and Pseudomonas aeruginosa Which both seem to be universally susceptible to cephalosporins. Patient given 1 g IM Rocephin, and 300 mg p.o. cefdinir twice daily for 1 week. Patient stable condition without evidence of acute abdomen or sepsis. Patient advised to follow-up with Dr. Licea's office on Wednesday. Counseled pt/family regarding: lab results, diagnosis, need for follow-up Medical Desision Making - Diagnostic Testing Diagnostic test were ordered, analyzed, and reviewed by me: Yes - Risk of complications The pt has a mod risk of morbidity or mortality based on: Need for prescription drug management - Departure Departure Disposition: Home Clinical Impression: Urinary tract infection Condition: Stable Critical Care Time: No Referrals: MARQUISE HENDERSON DO [Primary Care Provider] - Follow up/PCP as directed Instructions: Urinary Tract Infection, Adult (DC) Additional Instructions: Start cefdinir 300 mg twice a day for 7 days. Follow-up with Dr. Licea's office on Wednesday please. Return to ER for temperature greater 100.5 or increasing abdominal pain. Prescriptions: Cefdinir 300 mg PO BID #14 cap
== END 2023-01-15 17:45 | disposition home or self-care (01) ==
LOC: ED 16:40
DX: N39.0 Urinary tract infection, site not specified (principal); R30.0 Dysuria; R10.2 Pelvic and perineal pain; Z79.01 Long term (current) use of anticoagulants; Z79.899 Other long term (current) drug therapy
CPT/HCPCS: 96372; 99282; J0696

== ENCOUNTER 2023-01-31 12:42 | Emergency (ER) | payer MEDICARE ==
[2023-01-31 13:37] VITALS: TEMP 98
[2023-01-31] MEDS ORDERED: TORAdol 30 mg Injection IV ONE (14:43)
[2023-01-31] MEDS ORDERED: BENADRYL 50 MG/ML IV ONE (14:44)
[2023-01-31] MEDS ORDERED: Zofran 4 MG/2 ML VIAL IV ONE (14:45)
--- NOTE | 2023-01-31 14:48 | ERPHSYRPT ---
- History of Present Illness Time Seen by Provider: 01/31/23 14:15 Source: patient Patient Subjective Stated Complaint: C/O a Migraine headache that started on 01/26/23 Triage Nursing Assessment: Patient ambulated back to ER wearing sunglasses and carrying her pillow from home. Patient wearing oxygen at 3L per N/C but wears this continuously at home; not new for this patient. No cough. No SOB. NO dizziness. AVRIL WNMadeline for patient. Physician History: 67 years old female with past medical history of migraine headaches, COPD on home oxygen 3 L nasal cannula, degenerative disc disease both in her neck and lower back. The patient is presenting to the emergency room complaining of pressure-like headache that she has been having since last Wednesday. Last Wednesday, before yesterday she went to hospital in [place] and was treated with IV Toradol, Benadryl and Zofran. That gave her some relief and was discharged home. She is feeling nauseous, vomited couple of times and has a photophobia. She is wearing dark glasses. She is supposed to see a neurologist February 21 next year in [place]. Her family physician is managing her migraine medication. The patient has a Port-A-Cath, since she is a hard IV stick. She is requesting her migraine cocktail medications about Toradol, Zofran and Benadryl. Quality: pressure Head Pain Location: global Severity of Pain-Max: severe Allergies/Adverse Reactions: sumatriptan [From Imitrex] Allergy (Intermediate, Verified 01/31/23 13:11) Rash codeine Allergy (Mild, Verified 01/31/23 13:11) Rash MAKES SICK nitrofurantoin [From Macrobid] Allergy (Unknown, Verified 01/31/23 13:11) sulfamethoxazole [From Bactrim] Allergy (Unknown, Verified 01/31/23 13:11) trimethoprim [From Bactrim] Allergy (Unknown, Verified 01/31/23 13:11) sumatriptan succinate [From Imitrex] Allergy (Verified 01/31/23 13:11) morphine Adverse Reaction (Severe, Verified 01/31/23 13:11) Headache MIGRAINES fentanyl Adverse Reaction (Intermediate, Verified 01/31/23 13:11) Headache hydrocodone bitartrate [From Vicodin] Adverse Reaction (Mild, Verified 01/31/23 13:11) Vomiting hydromorphone [From Dilaudid] Adverse Reaction (Mild, Verified 01/31/23 13:11) pt states makes heache worse. Home Medications: ALPRAZolam 1 MG [Xanax 1 mg] 1 mg PO TID 02/17/13 [History] Aspirin 81 mg PO DAILY 09/11/16 [History] Levothyroxine Sodium 50 Mcg [Synthroid 50 Mcg] 50 mcg PO DAILY 07/06/17 [History] Linaclotide [Linzess] 290 mcg PO DAILY 10/07/17 [History] Dexlansoprazole [Dexilant] 60 mg PO DAILY 01/21/20 [History] Albuterol 2.5 mg/3 ml Neb [Proventil 2.5 mg/3 ml Neb] 2.5 mg IH QID 07/23/20 [History] dilTIAZem HCl [Diltiazem 24Hr ER (Cd)] 120 mg PO DAILY 09/29/21 [History] Promethazine HCl 25 mg [Phenergan 25 mg] 25 mg PO BIDPRN PRN 01/18/22 [History] Apixaban [Eliquis] 5 mg PO BID 07/02/22 [History] Fluticasone/Umeclidin/Vilanter [Trelegy Ellipta 200-62.5-25] 1 each IH DAILY 07/02/22 [History] Cetirizine HCl [Zyrtec] 1 tab PO DAILY 11/08/22 [History] Cyanocobalamin (Vitamin B-12) [Vitamin B12] 1,000 mcg PO DAILY 11/08/22 [History] Magnesium Oxide 400 mg [Mag-Ox 400] 1 tab PO DAILY 11/08/22 [History] Sodium Bicarbonate 2 tab PO BID 11/08/22 [History] Omeprazole/Sodium Bicarbonate [Omeprazole-Bicarb 40-1,100 Cap] 1 each PO HS 11/28/22 [History] Prucalopride Succinate [Motegrity] 2 mg PO DAILY 11/28/22 [History] Hx Tetanus, Diphtheria Vaccination/Date Given: No Hx Influenza Vaccination/Date Given: No Hx Pneumococcal Vaccination/Date Given: No Immunizations Up to Date: Yes Travel Risk - International Travel Have you traveled outside of the country in past 3 weeks: No - Coronavirus Screening Are you exhibiting any of the following symptoms?: Yes Symptoms: Headaches/Body Aches/Fatigue Close contact with a COVID-19 positive Pt in past 14-21 Days: No - Vaccine Status Have you recieved a 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: Yes 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: [employer] - Vaccination Dates Date of 2cond Vaccination (if applicable): 2021 - Review of Systems Constitutional: No Fever, No Chills Eyes: Photophobia Ears, Nose, & Throat: No Symptoms Respiratory: No Cough, No Dyspnea Cardiac: No Chest Pain, No Edema, No Syncope Abdominal/Gastrointestinal: Nausea, Vomiting Genitourinary Symptoms: No Dysuria Musculoskeletal: No Back Pain, No Neck Pain Skin: No Rash Neurological: Headache Psychological: No Symptoms Endocrine: No Symptoms All Other Systems: Reviewed and Negative - Past Medical History Pertinent Past Medical History: Yes Neurological History: Migraines ENT History: Cataracts Cardiac History: High Cholesterol Respiratory History: Bronchitis, COPD, Pulmonary Embolism Endocrine Medical History: Hypothyroidism Musculoskeletal History: Osteoarthritis GI Medical History: GERD, Gallbladder Disease, Other History: Other Psycho-Social History: Anxiety, Depression, Panic Disorder Female Reproductive Disorders: No Pertinent History Other Medical History: frequent uti's, chronic pseudo obstruction, blood clot - Past Surgical History Past Surgical History: Yes Neuro Surgical History: No Pertinent History Cardiac: No Pertinent History Respiratory: No Pertinent History Gastrointestinal: Cholecystectomy, Other Genitourinary: No Pertinent History Musculoskeletal: No Pertinent History Female Surgical History: No Pertinent History Other Surgical History: all of large intestine removed and most of small intestines removed. - Social History Smoking Status: Never smoker Exposure to second hand smoke: No Alcohol Use: None Drug Use: none Patient Lives Alone: Yes Significant Family History: no pertinent family hx - Nursing Vital Signs Nursing Vital Signs: Initial Vital Signs Temperature 98 F 01/31/23 13:00 Pulse Rate 83 01/31/23 13:00 Respiratory Rate 15 01/31/23 13:00 Blood Pressure 110/84 01/31/23 13:00 O2 Sat by Pulse Oximetry 95 01/31/23 13:00 Pain Scale Pain Intensity 0 - Physical Exam General Appearance: no apparent distress Eye Exam: PERRL/EOMI Ears, Nose, Throat Exam: normal ENT inspection, moist mucous membranes Neck Exam: normal inspection, supple, full range of motion, No meningismus Respiratory Exam: normal breath sounds, lungs clear Cardiovascular Exam: regular rate/rhythm, normal heart sounds Gastrointestinal/Abdominal Exam: soft, No tenderness, No distention Back Exam: normal inspection, normal range of motion 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, 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, cooperative gauger chief Exam: normal speech, PERRL, No facial droop Coordination/Gait Exam: normal cerebellar function Motor/Sensory Exam: no motor deficit, no sensory deficit Skin Exam: normal color, warm, dry, No rash SpO2: 95 - Course Nursing assessment & vital signs reviewed: Yes Ordered Tests: Medication Summary Discontinued Medications Generic Name Dose Route Start Last Admin Trade Name Freq PRN Reason Stop Dose Admin Diphenhydramine HCl 50 mg 01/31/23 14:44 01/31/23 15:26 Diphenhydramine Hcl 50 Mg/Ml Vial IV 01/31/23 14:45 50 mg STAT ONE Administration Diphenhydramine HCl Confirm 01/31/23 15:11 Diphenhydramine Hcl 50 Mg/Ml Vial Administered 01/31/23 15:12 Dose 50 mg .ROUTE .STK-MED ONE Heparin Sodium (Beef Lung) Confirm 01/31/23 15:34 Heparin Lock Flush Pf 500 Units/5 Ml Syringe Administered 01/31/23 15:35 Dose 500 units .ROUTE .STK-MED ONE Ketorolac Tromethamine 30 mg 01/31/23 14:43 01/31/23 15:24 Ketorolac Tromethamine 30 Mg/Ml Inj IV 01/31/23 14:44 30 mg STAT ONE Administration Ketorolac Tromethamine Confirm 01/31/23 15:10 Ketorolac Tromethamine 30 Mg/Ml Inj Administered 01/31/23 15:11 Dose 30 mg .ROUTE .STK-MED ONE Ondansetron HCl 4 mg 01/31/23 14:45 01/31/23 15:23 Ondansetron Hcl 4 Mg/2 Ml Vial IV 01/31/23 14:46 4 mg STAT ONE Administration Ondansetron HCl Confirm 01/31/23 15:10 Ondansetron Hcl 4 Mg/2 Ml Vial Administered 01/31/23 15:11 Dose 4 mg .ROUTE .STK-MED ONE - Progress Progress: improved Progress Note: 01/31/23 14:49 67 years old female with past medical history of migraine headaches, presenting to the emergency room complaining of pressure-like headache around her head that she has been having since last Wednesday, 5 days from today. With the headache she is nauseous and vomited couple of times, has a photophobia. The patient is requesting her IV cocktail of the Toradol, Benadryl and Zofran. Emergency room course and medical decision making. The patient be given IV Toradol, IV Zofran and IV Benadryl. 01/31/23 16:27 The patient is feeling slightly better wanting to go home. She has rizatriptan at home that she can take for her migraine headaches. At the same time she has an appointment to see a neurologist February 21 next year. The patient is discharged in stable and improved general condition - Departure Departure Disposition: Home Clinical Impression: Migraine headache Condition: Stable Critical Care Time: No Referrals: MARQUISE HENDERSON DO [Primary Care Provider] - Follow up/PCP as directed Instructions: Headache, Adult (DC)
[2023-01-31] MEDS ORDERED: Zofran 4 MG/2 ML VIAL ONE (15:10)
[2023-01-31] MEDS ORDERED: TORAdol 30 mg Injection ONE (15:10)
[2023-01-31] MEDS ORDERED: BENADRYL 50 MG/ML ONE (15:11)
[2023-01-31 16:25] VITALS: BP 125/80
[2023-01-31 16:45] VITALS: PULSE 67; RESP 18; O2SAT 97
== END 2023-01-31 16:45 | disposition home or self-care (01) ==
LOC: ED 12:42
DX: G43.909 Migraine, unspecified, not intractable, without status migrainosus (principal); R11.2 Nausea with vomiting, unspecified; E78.5 Hyperlipidemia, unspecified; Z79.01 Long term (current) use of anticoagulants; Z79.899 Other long term (current) drug therapy
CPT/HCPCS: 36000; 96374; 96375; 99284; J1200; J1642; J1885; J2405

== ENCOUNTER 2023-02-25 11:18 | Emergency (ER) | payer MEDICARE ==
[2023-02-25 12:12] VITALS: PULSE 83; TEMP 98.4
[2023-02-25 13:06] VITALS: BP 91/76
--- NOTE | 2023-02-25 13:38 | XRAY ---
Indication: Abdominal pain. Hematuria. Comparison: November 28, 2020 KUB remains nonacute and nonobstructed. Solid organs unremarkable. Again multiple phleboliths, osteopenia, minimal dextroscoliosis, and mid to lower lumbar degenerative spondylosis. Lung bases demonstrate incidental right hilar calcified nodes and right central venous access catheter not previously imaged.
[2023-02-25 14:04] VITALS: O2SAT 90
--- NOTE | 2023-02-25 14:55 | ERPHSYRPT ---
- History of Present Illness Time Seen by Provider: 02/25/23 11:20 Historian: patient Exam Limitations: no limitations Patient Subjective Stated Complaint: pt c/o of bright red blood when she has a bowel movement Triage Nursing Assessment: Pt was brought to the ER by a friend, raygayla hernandez, rates her chronic abdominal pain as 7/10, wears 3L NC, pulses normal, states that she has been sick for 2 weeks and has been passing blood with stool the whole time, skin n/w/d, doesn't appear to be in any distress Physician History: 67-year-old female with multiple medical problems including chronic abdominal pain with constipation needing regular laxative presented in the ER with chief complaint of bright red blood when she had a bowel movement earlier. Patient reports she has constipation and no bowel movement for the last 2 to 3 days and it was feeling as if she was having a hard stool. She tried to did get out and when she wiped noticed some bright red blood. She does not have any bleeding now. Abdominal pain is not any worse than usual. No vomiting or diarrhea reported. Not in any distress. Allergies/Adverse Reactions: sumatriptan [From Imitrex] Allergy (Intermediate, Verified 02/25/23 12:14) Rash codeine Allergy (Mild, Verified 02/25/23 12:14) Rash MAKES SICK nitrofurantoin [From Macrobid] Allergy (Unknown, Verified 02/25/23 12:14) sulfamethoxazole [From Bactrim] Allergy (Unknown, Verified 02/25/23 12:14) trimethoprim [From Bactrim] Allergy (Unknown, Verified 02/25/23 12:14) sumatriptan succinate [From Imitrex] Allergy (Verified 02/25/23 12:14) morphine Adverse Reaction (Severe, Verified 02/25/23 12:14) Headache MIGRAINES fentanyl Adverse Reaction (Intermediate, Verified 02/25/23 12:14) Headache hydrocodone bitartrate [From Vicodin] Adverse Reaction (Mild, Verified 02/25/23 12:14) Vomiting hydromorphone [From Dilaudid] Adverse Reaction (Mild, Verified 02/25/23 12:14) pt states makes heache worse. Home Medications: ALPRAZolam 1 MG [Xanax 1 mg] 1 mg PO TID 02/17/13 [History] Aspirin 81 mg PO DAILY 09/11/16 [History] Levothyroxine Sodium 50 Mcg [Synthroid 50 Mcg] 50 mcg PO DAILY 07/06/17 [History] Linaclotide [Linzess] 290 mcg PO DAILY 10/07/17 [History] Dexlansoprazole [Dexilant] 60 mg PO DAILY 01/21/20 [History] Albuterol 2.5 mg/3 ml Neb [Proventil 2.5 mg/3 ml Neb] 2.5 mg IH QID 07/23/20 [History] dilTIAZem HCl [Diltiazem 24Hr ER (Cd)] 120 mg PO DAILY 09/29/21 [History] Promethazine HCl 25 mg [Phenergan 25 mg] 25 mg PO BIDPRN PRN 01/18/22 [History] Apixaban [Eliquis] 5 mg PO BID 07/02/22 [History] Fluticasone/Umeclidin/Vilanter [Trelegy Ellipta 200-62.5-25] 1 each IH DAILY 07/02/22 [History] Cetirizine HCl [Zyrtec] 1 tab PO DAILY 11/08/22 [History] Cyanocobalamin (Vitamin B-12) [Vitamin B12] 1,000 mcg PO DAILY 11/08/22 [History] Magnesium Oxide 400 mg [Mag-Ox 400] 1 tab PO DAILY 11/08/22 [History] Sodium Bicarbonate 2 tab PO BID 11/08/22 [History] Omeprazole/Sodium Bicarbonate [Omeprazole-Bicarb 40-1,100 Cap] 1 each PO HS 11/28/22 [History] Prucalopride Succinate [Motegrity] 2 mg PO DAILY 11/28/22 [History] Hx Tetanus, Diphtheria Vaccination/Date Given: No Hx Influenza Vaccination/Date Given: No Hx Pneumococcal Vaccination/Date Given: No Travel Risk - International Travel Have you traveled outside of the country in past 3 weeks: No - Coronavirus Screening Are you exhibiting any of the following symptoms?: No Close contact with a COVID-19 positive Pt in past 14-21 Days: No - Vaccine Status Have you recieved a 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: 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[employer] - Vaccination Dates Date of 2cond Vaccination (if applicable): 2021 - Review of Systems Constitutional: No Symptoms Ears, Nose, & Throat: No Symptoms Respiratory: Dyspnea (On oxygen chronically) Cardiac: No Symptoms Abdominal/Gastrointestinal: Abdominal Pain, Constipation Genitourinary Symptoms: No Symptoms Neurological: No Symptoms Psychological: Anxiety Endocrine: No Symptoms - Past Medical History Pertinent Past Medical History: Yes Neurological History: Migraines, TIA ENT History: Cataracts Cardiac History: High Cholesterol Respiratory History: Bronchitis, COPD, Pulmonary Embolism Endocrine Medical History: Hypothyroidism Musculoskeletal History: Osteoarthritis GI Medical History: GERD, Gallbladder Disease, Other History: Other Psycho-Social History: Anxiety, Depression, Panic Disorder Female Reproductive Disorders: No Pertinent History Other Medical History: frequent uti's, chronic pseudo obstruction, blood clot - Past Surgical History Past Surgical History: Yes Neuro Surgical History: No Pertinent History Cardiac: No Pertinent History Respiratory: No Pertinent History Gastrointestinal: Cholecystectomy, Other Genitourinary: No Pertinent History Musculoskeletal: No Pertinent History Female Surgical History: No Pertinent History Other Surgical History: all of large intestine removed and most of small intestines removed. - Social History Smoking Status: Never smoker Exposure to second hand smoke: No Alcohol Use: None Drug Use: none Patient Lives Alone: Yes Significant Family History: no pertinent family hx - Nursing Vital Signs Nursing Vital Signs: Initial Vital Signs Temperature 98.4 F 02/25/23 12:01 Pulse Rate 83 02/25/23 12:01 Blood Pressure 103/69 02/25/23 12:01 O2 Sat by Pulse Oximetry 94 L 02/25/23 12:01 Pain Scale Pain Intensity 7 - Physical Exam General Appearance: no apparent distress, alert Eye Exam: PERRL/EOMI Ears, Nose, Throat Exam: normal ENT inspection Neck Exam: normal inspection, supple, full range of motion Respiratory Exam: normal breath sounds, lungs clear Cardiovascular Exam: regular rate/rhythm, normal heart sounds Gastrointestinal/Abdomen Exam: soft, normal bowel sounds, tenderness (Generalized tenderness), No guarding Rectal Exam: normal rectal tone, hemorrhoids, No blood, No decreased tone Back Exam: normal inspection Extremity Exam: normal inspection Neurologic Exam: alert, 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, cooperative Skin Exam: normal color SpO2 Interpretation: normal SpO2: 90 O2 Delivery: Room Air Ordered Tests: Active Orders 24 hr Category Date Time Status KUB Stat Exams 02/25/23 13:08 Completed - Progress Progress: improved Progress Note: 02/25/23 14:55 -year-old is evaluated in the ER for bright red blood after she had a hard stool which she had to take out because of her constipation. Patient has chronic abdominal pain which is not any worse than usual. Has good bowel sounds in all 4 quadrants. Not in any distress. Stable vitals. Rectal exam showed external hemorrhoids but no bleeding. Rectal vault is empty, normal tone and no blood staining the finger. I believe patient has some abrasions secondary to the hard stool. Since she does not have any stool in the vault, enema would not be a great help at this situation. I have obtained x-rays KUB which are negative for obstruction or abnormal bowel gas pattern. She is advised to continue with her stool softener and laxatives. Discussed signs symptoms of worsening needing return to ER which she seems understanding. Counseled pt/family regarding: diagnosis, need for follow-up, rad results Medical Desision Making - Diagnostic Testing Radiological Interpretation: Reviewed by me - Departure Departure Disposition: Home Clinical Impression: Constipation, Chronic abdominal pain Condition: Stable Critical Care Time: No Referrals: MARQUISE HENDERSON DO [Primary Care Provider] - Follow up with PCP 1 day Instructions: Gastrointestinal Bleeding (DC) Additional Instructions: Take daily stool softener and laxatives as recommended. Follow-up with your primary care for reevaluation. Return to ER for intractable abdominal pain, vomiting, distention, fever chills or if having rectal bleeding/dark-colored stool etc.
== END 2023-02-25 15:18 | disposition home or self-care (01) ==
LOC: ED 11:18
DX: K59.00 Constipation, unspecified (principal); G89.29 Other chronic pain; R10.9 Unspecified abdominal pain; E78.5 Hyperlipidemia, unspecified; Z79.01 Long term (current) use of anticoagulants; Z79.899 Other long term (current) drug therapy
CPT/HCPCS: 74018; 99283

== ENCOUNTER 2023-03-09 06:06 | Emergency (ER) | payer MEDICARE ==
[2023-03-09 06:39] VITALS: TEMP 98
--- NOTE | 2023-03-09 06:44 | ERPHSYRPT ---
- History of Present Illness Historian: patient Exam Limitations: no limitations Patient Subjective Stated Complaint: Abdominal pain with nausea and vomiting. Lower back pain. Triage Nursing Assessment: Patient presents with abdominal pain that is tender all over. States has been having nausea and has vomited multiple times. States went to see Dr Henderson on wednesday afternoon and was told has a partial blockage. Patient stated that she has consumed a full bottle of Milk of Mag in the last 24hrs with no relief and abdominal pain is worse. Also stated that she took Phen ergan and is still vomiting. Timing/Duration: day(s) (3) Activities at Onset: none Quality: aching, sharpness, other (Diffuse and constant) Abdominal Pain Onset Location: generalized abdomen Severity of Pain-Max: moderate Severity of Pain-Current: moderate Associated Symptoms: loss of appetite, nausea, vomiting, weakness Previous symptoms: same symptoms as today, recently seen Hx Tetanus, Diphtheria Vaccination/Date Given: No Hx Influenza Vaccination/Date Given: No Hx Pneumococcal Vaccination/Date Given: No Immunizations Up to Date: Yes <PARK ROBERTS - Last Filed: 03/09/23 06:39> <SHIRLENE BURROUGHS - Last Filed: 03/09/23 09:52> - History of Present Illness Time Seen by Provider: 03/09/23 06:35 Physician History: This is a 67-year-old white female patient who presents to the emergency department with recurrent nausea vomiting and abdominal pain. The abdominal pain began on 03/05/2023. Dr. Henderson, the patient's primary care provider, ordered a 2 view x-ray study of the abdomen which was read by the radiologist as nonacute, nonobstructed abdomen with chronic findings. Patient continues to have nausea vomiting and cannot pass stool per her report. In the last 24 hours she is consumed a full bottle of milk of magnesia per her report without relief. She describes the pain as diffuse, sharp, aching and constant. Patient is seen in our emergency room often for the same issue. Patient denies chest pain. Patient denies shortness of breath. Patient has a history of migraine headach es, TIAs, hyperlipidemia, hypothyroidism, osteoarthritis, anxiety and panic disorder as well as gastroesophageal reflux disease. (PARK ROBERTS) Allergies/Adverse Reactions: sumatriptan [From Imitrex] Allergy (Intermediate, Verified 03/09/23 06:39) Rash codeine Allergy (Mild, Verified 03/09/23 06:39) Rash MAKES SICK nitrofurantoin [From Macrobid] Allergy (Unknown, Verified 03/09/23 06:39) sulfamethoxazole [From Bactrim] Allergy (Unknown, Verified 03/09/23 06:39) trimethoprim [From Bactrim] Allergy (Unknown, Verified 03/09/23 06:39) sumatriptan succinate [From Imitrex] Allergy (Verified 03/09/23 06:39) morphine Adverse Reaction (Severe, Verified 03/09/23 06:39) Headache MIGRAINES fentanyl Adverse Reaction (Intermediate, Verified 03/09/23 06:39) Headache hydrocodone bitartrate [From Vicodin] Adverse Reaction (Mild, Verified 03/09/23 06:39) Vomiting hydromorphone [From Dilaudid] Adverse Reaction (Mild, Verified 03/09/23 06:39) pt states makes heache worse. Home Medications: ALPRAZolam 1 MG [Xanax 1 mg] 1 mg PO TID 02/17/13 [History] Aspirin 81 mg PO DAILY 09/11/16 [History] Levothyroxine Sodium 50 Mcg [Synthroid 50 Mcg] 50 mcg PO DAILY 07/06/17 [History] Linaclotide [Linzess] 290 mcg PO DAILY 10/07/17 [History] Dexlansoprazole [Dexilant] 60 mg PO DAILY 01/21/20 [History] Albuterol 2.5 mg/3 ml Neb [Proventil 2.5 mg/3 ml Neb] 2.5 mg IH QID 07/23/20 [History] dilTIAZem HCl [Diltiazem 24Hr ER (Cd)] 120 mg PO DAILY 09/29/21 [History] Promethazine HCl 25 mg [Phenergan 25 mg] 25 mg PO BIDPRN PRN 01/18/22 [History] Apixaban [Eliquis] 5 mg PO BID 07/02/22 [History] Fluticasone/Umeclidin/Vilanter [Trelegy Ellipta 200-62.5-25] 1 each IH DAILY 07/02/22 [History] Cetirizine HCl [Zyrtec] 1 tab PO DAILY 11/08/22 [History] Cyanocobalamin (Vitamin B-12) [Vitamin B12] 1,000 mcg PO DAILY 11/08/22 [History] Magnesium Oxide 400 mg [Mag-Ox 400] 1 tab PO DAILY 11/08/22 [History] Sodium Bicarbonate 2 tab PO BID 11/08/22 [History] Omeprazole/Sodium Bicarbonate [Omeprazole-Bicarb 40-1,100 Cap] 1 each PO HS 11/28/22 [History] Prucalopride Succinate [Motegrity] 2 mg PO DAILY 11/28/22 [History] Atorvastatin Calcium [Lipitor 40Mg] 40 mg PO DAILY 03/09/23 [History] Travel Risk - International Travel Have you traveled outside of the country in past 3 weeks: No - Coronavirus Screening Are you exhibiting any of the following symptoms?: Yes Symptoms: Cough: New Onset, Shortness of Breath, Vomiting/Diarrhea, Headaches/Body Aches/Fatigue Close contact with a COVID-19 positive Pt in past 14-21 Days: No - Vaccine Status Have you recieved a 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: Yes [employer]: [employer] - Vaccination Dates Date of 2cond Vaccination (if applicable): 2021 <PARK ROBERTS - Last Filed: 03/09/23 06:39> - Review of Systems Constitutional: Weakness Eyes: No Symptoms Ears, Nose, & Throat: No Symptoms Respiratory: No Symptoms Cardiac: No Symptoms Abdominal/Gastrointestinal: Abdominal Pain, Nausea, Vomiting, Appetite Changes Genitourinary Symptoms: No Symptoms Musculoskeletal: No Symptoms Skin: No Symptoms Neurological: No Symptoms Psychological: Anxiety Endocrine: No Symptoms Hematologic/Lymphatic: No Symptoms Immunological/Allergic: No Symptoms All Other Systems: Reviewed and Negative <PARK ROBERTS - Last Filed: 03/09/23 06:39> - Past Medical History Pertinent Past Medical History: Yes Neurological History: Migraines, TIA ENT History: Cataracts Cardiac History: High Cholesterol Respiratory History: Bronchitis, COPD, Pulmonary Embolism Endocrine Medical History: Hypothyroidism Musculoskeletal History: Osteoarthritis GI Medical History: GERD, Gallbladder Disease, Other History: Other Psycho-Social History: Anxiety, Depression, Panic Disorder Female Reproductive Disorders: No Pertinent History Other Medical History: frequent uti's, chronic pseudo obstruction, blood clot, partial bowel blockage - Past Surgical History Past Surgical History: Yes Neuro Surgical History: No Pertinent History Cardiac: No Pertinent History Respiratory: No Pertinent History Gastrointestinal: Cholecystectomy, Other Genitourinary: No Pertinent History Musculoskeletal: No Pertinent History Female Surgical History: No Pertinent History Other Surgical History: all of large intestine removed and most of small int estines removed. - Social History Smoking Status: Never smoker Exposure to second hand smoke: No Alcohol Use: None Drug Use: none Patient Lives Alone: Yes Significant Family History: no pertinent family hx <PARK ROBERTS - Last Filed: 03/09/23 06:39> - Physical Exam General Appearance: no apparent distress, alert, anxiety Eye Exam: PERRL/EOMI, eyes nml inspection Ears, Nose, Throat Exam: normal ENT inspection, moist mucous membranes Neck Exam: normal inspection, non-tender, supple, full range of motion Respiratory Exam: normal breath sounds, lungs clear, airway intact, No chest tenderness, No respiratory distress Cardiovascular Exam: regular rate/rhythm, normal heart sounds, normal peripheral pulses Gastrointestinal/Abdomen Exam: tenderness (Diffuse to palpation), distention, guarding (Diffuse to palpation), No pulsatile mass, No rebound Pelvic Exam: not done Rectal Exam: not done Back Exam: normal inspection, normal range of motion Extremity Exam: normal inspection, normal range of motion, pelvis stable Neurologic Exam: alert, 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, cooperative, gauge operator II-XII nml as tested Skin Exam: normal color, warm, dry Lymphatic Exam: No adenopathy SpO2 Interpretation: normal SpO2: 100 O2 Delivery: Room Air <PARK ROBERTS - Last Filed: 03/09/23 06:39> - Nursing Vital Signs Nursing Vital Signs: Initial Vital Signs Temperature 98.0 F 03/09/23 06:07 Pulse Rate 95 H 03/09/23 06:07 Respiratory Rate 20 03/09/23 06:07 Blood Pressure 113/73 03/09/23 06:07 O2 Sat by Pulse Oximetry 100 03/09/23 06:07 Pain Scale Pain Intensity 10 - Course Nursing assessment & vital signs reviewed: Yes <PARK ROBERTS - Last Filed: 03/09/23 06:39> - CT Exams Abdomen/Pelvis CT Interpretation: Tele-radiologist Report (Small hiatal hernia, distal periesophageal calcified lymph node, right renal cyst) <SHIRLENE BURROUGHS - Last Filed: 03/09/23 09:52> Ordered Tests: Active Orders 24 hr Category Date Time Status IV Insertion STAT Care 03/09/23 06:48 Active ABDOMEN AND PELVIS W/0 CONTRAS [CT] Stat Exams 03/09/23 06:48 Completed AMYLASE Stat Lab 03/09/23 07:40 Completed CBC W DIFF Stat Lab 03/09/23 06:48 Completed CMP Stat Lab 03/09/23 07:40 Completed CULTURE,URINE Stat Lab 03/09/23 07:38 Received LIPASE Stat Lab 03/09/23 07:40 Completed Lactic Acid Stat Lab 03/09/23 07:40 Completed UA W/RFX UR CULTURE Stat Lab 03/09/23 07:38 Completed Medication Summary Discontinued Medications Generic Name Dose Route Start Last Admin Trade Name Freq PRN Reason Stop Dose Admin Sodium Chloride 1,000 mls @ 999 mls/hr 03/09/23 06:48 03/09/23 08:54 Sodium Chloride 0.9% 1000 Ml IV 03/09/23 07:48 Infused .Q1H1M STA Infusion Sodium Chloride Confirm 03/09/23 07:47 Sodium Chloride 0.9% 1000 Ml Administered 03/09/23 07:48 Dose 1,000 mls @ ud .ROUTE .STK-MED ONE Ondansetron HCl 4 mg 03/09/23 06:48 03/09/23 07:52 Ondansetron Hcl 4 Mg/2 Ml Vial IV 03/09/23 06:49 4 mg STAT ONE Administration Ondansetron HCl Confirm 03/09/23 07:47 Ondansetron Hcl 4 Mg/2 Ml Vial Administered 03/09/23 07:48 Dose 4 mg .ROUTE .STK-MED ONE Lab/Rad Data: Laboratory Result Diagrams 03/09/23 06:48 03/09/23 07:40 Laboratory Results 03/09/23 03/09/23 03/09/23 Range/Units 07:40 07:40 07:38 WBC (4.0-10.5) x10^3/uL RBC (4.1-5.4) x10^6/uL Hgb (12.0-16.0) g/dL Hct (35-47) % MCV (78-100) fL MCH (26-32) pg MCHC (32-36) g/dL RDW (11.5-14.0) % Plt Count (150-450) x10^3/uL MPV (7.5-11.0) fL Gran % (36.0-66.0) % Immature Gran % (Auto) (0.00-0.4) % Nucleat RBC Rel Count (0.00-0.1) % Eos # (Auto) (0-0.5) x10^3/uL Immature Gran # (Auto) (0.00-0.03) x10^3u/L Absolute Lymphs (auto) (1.0-4.6) x10^3/uL Absolute Monos (auto) (0.0-1.3) x10^3/uL Absolute Nucleated RBC (0.00-0.01) x10^3u/L Lymphocytes % (24.0-44.0) % Monocytes % (0.0-12.0) % Eosinophils % (0.00-5.0) % Basophils % (0.0-0.4) % Absolute Granulocytes (1.4-6.9) x10^3/uL Basophils # (0-0.4) x10^3/uL Sodium 137 (137-145) mmol/L Potassium 3.6 (3.5-5.1) mmol/L Chloride 103 (98-107) mmol/L Carbon Dioxide 29 (22-30) mmol/L Anion Gap 8.9 (5-15) MEQ/L BUN 33 H (7-17) mg/dL Creatinine 1.36 H (0.52-1.04) mg/dL Estimated GFR 42.7 ML/MIN Glucose 114 H (74-106) mg/dL Lactic Acid 1.2 (0.4-2.0) Calcium 9.0 (8.4-10.2) mg/dL Total Bilirubin 0.90 (0.2-1.3) mg/dL AST 29 (14-36) U/L ALT 20 (0-35) U/L Alkaline Phosphatase 112 (38-126) U/L Serum Total Protein 7.2 (6.3-8.2) g/dL Albumin 4.2 (3.5-5.0) g/dL Amylase 91 (30-110) U/L Lipase 164 (23-300) U/L Urine Color Dark Yellow A (Yellow) Urine Appearance Cloudy A (Clear) Urine pH 6.0 (4.6-8.0) Ur Specific [place] >=1.030 A (1.005-1.030) Urine Protein Trace A (Negative) Urine Glucose (UA) Negative (Negative) mg/dL Urine Ketones Trace A (Negative) Urine Blood Trace (Negative) Urine Nitrite Negative (Negative) Urine Bilirubin Negative (Negative) Urine Urobilinogen 1.0 A (0.2) mg/dL Ur Leukocyte Esterase Moderate A (Negative) U Hyaline Cast (Auto) 3-5 A (0-2) /LPF Urine Microscopic RBC 11-20 A (0-5) /HPF Urine Microscopic WBC >100 A (0-5) /HPF Ur Epithelial Cells Few (None Seen) /HPF Urine Bacteria Moderate A (None Seen) /HPF Urine Culture Reflexed YES (NO) 03/09/23 Range/Units 06:48 WBC 7.1 (4.0-10.5) x10^3/uL RBC 4.28 (4.1-5.4) x10^6/uL Hgb 13.5 (12.0-16.0) g/dL Hct 40.3 (35-47) % MCV 94.2 (78-100) fL MCH 31.5 (26-32) pg MCHC 33.5 (32-36) g/dL RDW 12.2 (11.5-14.0) % Plt Count 183 (150-450) x10^3/uL MPV 10.3 (7.5-11.0) fL Gran % 77.9 H (36.0-66.0) % Immature Gran % (Auto) 0.6 H (0.00-0.4) % Nucleat RBC Rel Count 0.0 (0.00-0.1) % Eos # (Auto) 0.04 (0-0.5) x10^3/uL Immature Gran # (Auto) 0.04 H (0.00-0.03) x10^3u/L Absolute Lymphs (auto) 0.93 L (1.0-4.6) x10^3/uL Absolute Monos (auto) 0.52 (0.0-1.3) x10^3/uL Absolute Nucleated RBC 0.00 (0.00-0.01) x10^3u/L Lymphocytes % 13.0 L (24.0-44.0) % Monocytes % 7.3 (0.0-12.0) % Eosinophils % 0.6 (0.00-5.0) % Basophils % 0.6 (0.0-0.4) % Absolute Granulocytes 5.57 (1.4-6.9) x10^3/uL Basophils # 0.04 (0-0.4) x10^3/uL Sodium (137-145) mmol/L Potassium (3.5-5.1) mmol/L Chloride (98-107) mmol/L Carbon Dioxide (22-30) mmol/L Anion Gap (5-15) MEQ/L BUN (7-17) mg/dL Creatinine (0.52-1.04) mg/dL Estimated GFR ML/MIN Glucose (74-106) mg/dL Lactic Acid (0.4-2.0) Calcium (8.4-10.2) mg/dL Total Bilirubin (0.2-1.3) mg/dL AST (14-36) U/L ALT (0-35) U/L Alkaline Phosphatase (38-126) U/L Serum Total Protein (6.3-8.2) g/dL Albumin (3.5-5.0) g/dL Amylase (30-110) U/L Lipase (23-300) U/L Urine Color (Yellow) Urine Appearance (Clear) Urine pH (4.6-8.0) Ur Specific [place] (1.005-1.030) Urine Protein (Negative) Urine Glucose (UA) (Negative) mg/dL Urine Ketones (Negative) Urine Blood (Negative) Urine Nitrite (Negative) Urine Bilirubin (Negative) Urine Urobilinogen (0.2) mg/dL Ur Leukocyte Esterase (Negative) U Hyaline Cast (Auto) (0-2) /LPF Urine Microscopic RBC (0-5) /HPF Urine Microscopic WBC (0-5) /HPF Ur Epithelial Cells (None Seen) /HPF Urine Bacteria (None Seen) /HPF Urine Culture Reflexed (NO) <PARK ROBERTS - Last Filed: 03/09/23 06:39> - Progress Progress: improved Counseled pt/family regarding: lab results, diagnosis, need for follow-up, rad results <SHIRLENE BURROUGHS - Last Filed: 03/09/23 09:52> - Progress Progress Note: 03/09/23 06:46 This patient's medical issue is 1 of moderate complexity. Level of complexity i n the workup performed is based on review of the patient's past medical history, review the patient's medication list, review the patient's drug allergy list, history present illness and physical findings on examination. Workup in this patient includes placement of intravenous line, infusion of normal saline solution, infusion of antiemetic, CBC, CMP, amylase, lipase, urinalysis, CT scan of the abdomen pelvis without contrast. Patient care being transferred to Dr. Burroughs at shift change. He will follow-up on the pending laboratory and radiographic study results and make final disposition. (PARK ROBERTS) Patient endorsed to Dr. Burroughs at approximately [address] Burroughs advised to follow- up on pending labs. Patient has an elevated creatinine. This is likely at l [place] partially due to dehydration nausea and vomiting. Patient rehydrated with IV fluids. However patient understands the importance of follow-up for reevaluation of her creatinine level. Patient has a urinary tract infection. Patient received a dose of Omnicef in our ED. Patient states this antibiotic helps her urinary tract infections. A prescription for the same was forwarded to patient's pharmacy. CT shows a small hiatal hernia small distal periesophageal calcified lymph node and a small right renal cyst. Zofran administered. Patient tolerating p.o. No nausea no vomiting. Patient feels much better is requesting discharge. Patient agrees to follow-up with her primary care doctor within 48 hours for reevaluation. She voices no other complaints or concerns at this time. Portions of this note were created with voice recognition technology. There may be grammatical, spelling, punctuation or sound alike errors Complexity problem addressed is moderate acute complicated Complex of data reviewed and analyzed is moderate. Test ordered test reviewed results analyzed and correlated clinically. Risk of complication and or risk of morbidity/mortality patient management is moderate. A prescription for Omnicef forwarded to patient's pharmacy. Vital stable. Time spent to discharge patient is approximately 20 minutes. Plan of care established for shared decision making. No social determinants of health present impede follow-up. Portions of this note were created with voice recognition technology. There may be grammatical, spelling, punctuation or sound alike errors 03/09/23 09:48 (SHIRLENE BURROUGHS) - Departure Departure Disposition: Home Critical Care Time: No <PARK ROBERTS - Last Filed: 03/09/23 06:39> - Departure Departure Disposition: Home <SHIRLENE BURROUGHS - Last Filed: 03/09/23 09:52> - Departure Clinical Impression: Abdominal pain, Elevated serum creatinine, Increase in serum creatinine from prior measurement, UTI (urinary tract infection), Small hiatal hernia, Distal periesophageal calcified lymph no, Renal cyst, right Condition: Stable Referrals: MARQUISE HENDERSON DO [Primary Care Provider] - Follow up/PCP as directed Additional Instructions: Discharge/Care Plan GEOVANNY FREY was seen on 03/09/23 in the Emergency Room. The patient was counseled regarding Diagnosis,Lab results, Imaging studies, need for follow up and when to return to the Emergency Room. Prescriptions given: Discharge Note I have spoken with the patient and/or caregivers. I have explained the patient's condition, diagnosis and treatment plan based on the information available to me at this time. I have answered the patient's and/or caregiver's questions and addressed any concerns. The patient and/or caregivers have as good understanding of the patient's diagnosis, condition and treatment plan as can be expected at this point. The vital signs have been stable. The patient's condition is stable and appropriate for discharge from the emergency department. The patient will pursue further outpatient evaluation with the primary care physician or other designated or consulting physician as outlined in the discharge instructions. The patient and/or caregivers are agreeable to this plan of care and follow-up instructions have been explained in detail. The patient and/or caregivers have received these instruction. The patient/and or caregivers are aware that any significant change in condition or worsening of symptoms should prompt an immediate return to this or the closest emergency department or call 911.
[2023-03-09] MEDS ORDERED: Sodium Chloride 0.9% 1000 ML 1,000 ML IV STA (06:48)
[2023-03-09] MEDS ORDERED: Zofran 4 MG/2 ML VIAL IV ONE (06:48)
[2023-03-09 07:46] LABS: Absolute Neutrophil Ct (ANC) 5.57 x10^3/uL (1.4-6.9); BASOPHIL % 0.6 % (0.0-0.4); Basophil (Absolute #) 0.04 x10^3/uL (0-0.4); Eosinophil % 0.6 % (0.00-5.0); Eosinophil (Absolute #) 0.04 x10^3/uL (0-0.5); Hematocrit 40.3 % (35-47); Hemoglobin 13.5 g/dL (12.0-16.0); IMMATURE GRAN # 0.04 x10^3u/L (0.00-0.03); IMMATURE GRAN % 0.6 % (0.00-0.4); Lymphocyte (Absolute #) 0.93 x10^3/uL (1.0-4.6); Mean Cell Volume 94.2 fL (78-100); Mean Corpuscular Hemoglobin 31.5 pg (26-32); Mean Corpuscular Hgb Concent. 33.5 g/dL (32-36); Mean Platelet Volume 10.3 fL (7.5-11.0); Monocyte (Absolute #) 0.52 x10^3/uL (0.0-1.3); Monocytes % 7.3 % (0.0-12.0); Neutrophil % 77.9 % (36.0-66.0); Platelet Count 183 x10^3/uL (150-450); Red Blood Count 4.28 x10^6/uL (4.1-5.4); Red Cell Distribution Width 12.2 % (11.5-14.0); White Blood Count 7.1 x10^3/uL (4.0-10.5)
[2023-03-09] MEDS ORDERED: Zofran 4 MG/2 ML VIAL ONE (07:47)
[2023-03-09] MEDS ORDERED: Sodium Chloride 0.9% 1000 ML 1,000 ML ONE (07:47)
[2023-03-09 07:56] LABS: Appearance Cloudy (Clear); Bacteria Moderate /HPF (None Seen); Bilirubin Negative (Negative); Blood Trace (Negative); Epithelial Cells Few /HPF (None Seen); Glucose, Urine Negative (Negative); Ketones Trace (Negative); Leukocyte Esterase Moderate (Negative); Nitrite Negative (Negative); Protein,Urine Dip Trace (Negative); Specific Gravity >=1.030 (1.005-1.030); WBC >100 /HPF (0-5)
[2023-03-09 07:59] LABS: ALBUMIN 4.2 g/dL (3.5-5.0); ANION GAP 8.9 MEQ/L (5-15); BILIRUBIN,TOTAL 0.9 mg/dL (0.2-1.3); Creatinine 1 1.36 mg/dL (0.52-1.04); EST GLOMERULAR FILTRATION RATE 42.7 ML/MIN; Potassium 3.6 mmol/L (3.5-5.1); Total Protein 7.2 g/dL (6.3-8.2)
[2023-03-09 08:06] LABS: ADD URINE CULTURE? YES (NO)
--- NOTE | 2023-03-09 08:38 | XRAY ---
Indication: Diffuse abdomen pain, nausea, vomiting, and distention. Multiple contiguous axial images obtained through the abdomen and pelvis without contrast. Comparison: June 11, 2022 Lung bases demonstrates minimal subsegmental atelectasis/scarring. No infiltrate or effusion. Heart not enlarged. Stable small hiatal hernia and distal paraesophageal calcified node. Noncontrast stomach and bowel loops appear nonobstructed. Again colectomy with intact sigmoid anastomosis, cholecystotomy, and hysterectomy. Stable small right lower renal cyst. No free fluid/air. Remaining liver, pancreas, spleen, adrenal glands, kidneys, ureters, bladder, and aorta are unremarkable for noncontrast exam. Osseous structures intact again with minimal/mild Genter changes throughout the spine. Impression: 1. Stable right renal cyst, hiatal hernia, chronic bony findings, and old granulomatous disease. 2. Remaining CT abdomen/pelvis without contrast exam continues to be negative.
[2023-03-09 09:17] VITALS: PULSE 78; RESP 20; O2SAT 96
[2023-03-09] MEDS ORDERED: OMNICEF 300 MG PO STA (09:49)
[2023-03-09 10:09] VITALS: BP 102/76
== END 2023-03-09 10:21 | disposition home or self-care (01) ==
LOC: ED 06:06
DX: R10.9 Unspecified abdominal pain (principal); R79.89 Other specified abnormal findings of blood chemistry; N39.0 Urinary tract infection, site not specified; K44.9 Diaphragmatic hernia without obstruction or gangrene; I89.8 Other specified noninfective disorders of lymphatic vessels and lymph nodes; N28.1 Cyst of kidney, acquired; R11.2 Nausea with vomiting, unspecified; E78.5 Hyperlipidemia, unspecified; Z79.01 Long term (current) use of anticoagulants; Z79.899 Other long term (current) drug therapy
CPT/HCPCS: 36000; 36415; 74176; 80053; 81001; 82150; 83605; 83690; 85025; 87077; 87086; 87186; 96360; 96374; 99284; J1642; J2405; A9270-GY

== ENCOUNTER 2023-03-12 17:21 | Emergency (ER) | payer MEDICARE ==
[2023-03-12] MEDS ORDERED: Sodium Chloride 0.9% 1000 ML 1,000 ML IV STA (17:52)
[2023-03-12 18:07] VITALS: RESP 20; TEMP 97.7
[2023-03-12] MEDS ORDERED: Sodium Chloride 0.9% 1000 ML 1,000 ML ONE (18:21)
[2023-03-12 18:29] LABS: Absolute Neutrophil Ct (ANC) 5.19 x10^3/uL (1.4-6.9); BASOPHIL % 0.6 % (0.0-0.4); Basophil (Absolute #) 0.04 x10^3/uL (0-0.4); Eosinophil % 0.6 % (0.00-5.0); Eosinophil (Absolute #) 0.04 x10^3/uL (0-0.5); Hematocrit 44.4 % (35-47); Hemoglobin 14.9 g/dL (12.0-16.0); IMMATURE GRAN # 0.04 x10^3u/L (0.00-0.03); IMMATURE GRAN % 0.6 % (0.00-0.4); Lymphocyte (Absolute #) 0.68 x10^3/uL (1.0-4.6); Lymphocytes % 10.6 % (24.0-44.0); Mean Cell Volume 93.9 fL (78-100); Mean Corpuscular Hemoglobin 31.5 pg (26-32); Mean Corpuscular Hgb Concent. 33.6 g/dL (32-36); Mean Platelet Volume 10.5 fL (7.5-11.0); Monocyte (Absolute #) 0.43 x10^3/uL (0.0-1.3); Monocytes % 6.7 % (0.0-12.0); Neutrophil % 80.9 % (36.0-66.0); Platelet Count 198 x10^3/uL (150-450); Red Blood Count 4.73 x10^6/uL (4.1-5.4); Red Cell Distribution Width 12.4 % (11.5-14.0); White Blood Count 6.4 x10^3/uL (4.0-10.5)
[2023-03-12 18:36] LABS: Appearance Turbid (Clear); Bacteria Many /HPF (None Seen); Bilirubin Negative (Negative); Blood Large (Negative); Epithelial Cells Few /HPF (None Seen); Glucose, Urine Negative (Negative); Ketones Negative (Negative); Leukocyte Esterase Large (Negative); Nitrite Negative (Negative); Protein,Urine Dip 30 (Negative)
[2023-03-12 18:38] VITALS: O2SAT 97
[2023-03-12 18:38] LABS: ADD URINE CULTURE? YES (NO); Hyaline Casts 20-50 /LPF (0-2)
[2023-03-12 18:44] LABS: ALBUMIN 4.9 g/dL (3.5-5.0); ANION GAP 13.2 MEQ/L (5-15); BILIRUBIN,TOTAL 0.8 mg/dL (0.2-1.3); Calcium 9.9 mg/dL (8.4-10.2); Creatinine 1 1.4 mg/dL (0.52-1.04); EST GLOMERULAR FILTRATION RATE 41.2 ML/MIN; Potassium 3.9 mmol/L (3.5-5.1); Total Protein 8.3 g/dL (6.3-8.2)
--- NOTE | 2023-03-12 19:21 | ERPHSYRPT ---
- History of Present Illness Time Seen by Provider: 03/12/23 17:45 Historian: patient Exam Limitations: no limitations Patient Subjective Stated Complaint: Weakness Triage Nursing Assessment: Patient brought into ED per EMS and transferred to bed per self. Patient A+O X.3 Patient's skin pink, warm and dry. Patient complains of weakness, N/V and diarrhea for 2 days. Patient recently dx with UTI. Patient denies pain or discomfort. Physician History: The patient is a 67-year-old has had multiple ER visits. The patient was seen 3 days ago and had unremarkable CT scan and blood work. She seems to have chronic abdominal pain and nausea vomiting. She has had multiple abdominal surgeries. She has been given a diagnosis of pseudoobstruction The patient presents with nausea vomiting. The patient's had chronic comp laints. She is felt weak. She feels like she is dehydrated. Allergies/Adverse Reactions: sumatriptan [From Imitrex] Allergy (Intermediate, Verified 03/12/23 17:56) Rash codeine Allergy (Mild, Verified 03/12/23 17:56) Rash MAKES SICK nitrofurantoin [From Macrobid] Allergy (Unknown, Verified 03/12/23 17:56) sulfamethoxazole [From Bactrim] Allergy (Unknown, Verified 03/12/23 17:56) trimethoprim [From Bactrim] Allergy (Unknown, Verified 03/12/23 17:56) sumatriptan succinate [From Imitrex] Allergy (Verified 03/12/23 17:56) morphine Adverse Reaction (Severe, Verified 03/12/23 17:56) Headache MIGRAINES fentanyl Adverse Reaction (Intermediate, Verified 03/12/23 17:56) Headache hydrocodone bitartrate [From Vicodin] Adverse Reaction (Mild, Verified 03/12/23 17:56) Vomiting hydromorphone [From Dilaudid] Adverse Reaction (Mild, Verified 03/12/23 17:56) pt states makes heache worse. Home Medications: ALPRAZolam 1 MG [Xanax 1 mg] 1 mg PO TID 02/17/13 [History] Aspirin 81 mg PO DAILY 09/11/16 [History] Levothyroxine Sodium 50 Mcg [Synthroid 50 Mcg] 50 mcg PO DAILY 07/06/17 [History] Linaclotide [Linzess] 290 mcg PO DAILY 10/07/17 [History] Dexlansoprazole [Dexilant] 60 mg PO DAILY 01/21/20 [History] Albuterol 2.5 mg/3 ml Neb [Proventil 2.5 mg/3 ml Neb] 2.5 mg IH QID 07/23/20 [History] dilTIAZem HCl [Diltiazem 24Hr ER (Cd)] 120 mg PO DAILY 09/29/21 [History] Promethazine HCl 25 mg [Phenergan 25 mg] 25 mg PO BIDPRN PRN 01/18/22 [History] Apixaban [Eliquis] 5 mg PO BID 07/02/22 [History] Fluticasone/Umeclidin/Vilanter [Trelegy Ellipta 200-62.5-25] 1 each IH DAILY 07/02/22 [History] Cetirizine HCl [Zyrtec] 1 tab PO DAILY 11/08/22 [History] Cyanocobalamin (Vitamin B-12) [Vitamin B12] 1,000 mcg PO DAILY 11/08/22 [History] Magnesium Oxide 400 mg [Mag-Ox 400] 1 tab PO DAILY 11/08/22 [History] Sodium Bicarbonate 2 tab PO BID 11/08/22 [History] Omeprazole/Sodium Bicarbonate [Omeprazole-Bicarb 40-1,100 Cap] 1 each PO HS 11/28/22 [History] Prucalopride Succinate [Motegrity] 2 mg PO DAILY 11/28/22 [History] Atorvastatin Calcium [Lipitor 40Mg] 40 mg PO DAILY 03/09/23 [History] Hx Tetanus, Diphtheria Vaccination/Date Given: No Hx Influenza Vaccination/Date Given: No Hx Pneumococcal Vaccination/Date Given: No Immunizations Up to Date: Yes Travel Risk - International Travel Have you traveled outside of the country in past 3 weeks: No - Coronavirus Screening Are you exhibiting any of the following symptoms?: No Close contact with a COVID-19 positive Pt in past 14-21 Days: No - Vaccine Status Have you recieved a 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: Yes [employer]: [employer] - Vaccination Dates Date of 2cond Vaccination (if applicable): 2021 - Review of Systems Constitutional: No Fever, No Chills Eyes: No Symptoms Ears, Nose, & Throat: No Symptoms Respiratory: No Cough, No Dyspnea Cardiac: No Chest Pain, No Edema, No Syncope Abdominal/Gastrointestinal: Abdominal Pain, Nausea, Vomiting, Constipation Genitourinary Symptoms: No Dysuria Musculoskeletal: No Back Pain, No Neck Pain Skin: No Rash Neurological: No Dizziness, No Focal Weakness, No Sensory Changes Psychological: No Symptoms Endocrine: No Symptoms All Other Systems: Reviewed and Negative - Past Medical History Pertinent Past Medical History: Yes Neurological History: Migraines, TIA ENT History: Cataracts Cardiac History: High Cholesterol Respiratory History: Bronchitis, COPD, Pulmonary Embolism Endocrine Medical History: Hypothyroidism Musculoskeletal History: Osteoarthritis GI Medical History: GERD, Gallbladder Disease, Other History: Other Psycho-Social History: Anxiety, Depression, Panic Disorder Female Reproductive Disorders: No Pertinent History Other Medical History: frequent uti's, chronic pseudo obstruction, blood clot, p artial bowel blockage - Past Surgical History Past Surgical History: Yes Neuro Surgical History: No Pertinent History Cardiac: No Pertinent History Respiratory: No Pertinent History Gastrointestinal: Cholecystectomy, Other Genitourinary: No Pertinent History Musculoskeletal: No Pertinent History Female Surgical History: No Pertinent History Other Surgical History: all of large intestine removed and most of small intestines removed. - Social History Smoking Status: Never smoker Exposure to second hand smoke: No Alcohol Use: None Drug Use: none Patient Lives Alone: Yes Significant Family History: no pertinent family hx - Nursing Vital Signs Nursing Vital Signs: Initial Vital Signs Temperature 97.7 F 03/12/23 17:57 Pulse Rate 91 H 03/12/23 17:57 Respiratory Rate 20 03/12/23 17:57 Blood Pressure 98/68 03/12/23 17:57 O2 Sat by Pulse Oximetry 93 L 03/12/23 17:57 Pain Scale Pain Intensity 0 - Physical Exam General Appearance: no apparent distress, alert Eye Exam: PERRL/EOMI, eyes nml inspection Ears, Nose, Throat Exam: normal ENT inspection, pharynx normal, moist mucous membranes Neck Exam: normal inspection, non-tender, supple, full range of motion Respiratory Exam: normal breath sounds, lungs clear, No respiratory distress Cardiovascular Exam: regular rate/rhythm, normal heart sounds Gastrointestinal/Abdomen Exam: soft, No tenderness, No mass Back Exam: normal inspection, normal range of motion, No CVA tenderness, No vertebral tenderness Extremity Exam: normal inspection, normal range of motion, pelvis stable Neurologic Exam: alert, 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, cooperative, normal mood/affect, nml cerebellar function, sensation nml, No motor deficits Skin Exam: normal color, warm, dry SpO2 Interpretation: normal SpO2: 97 O2 Delivery: Room Air - Course Nursing assessment & vital signs reviewed: Yes Ordered Tests: Active Orders 24 hr Category Date Time Status IV Insertion STAT Care 03/12/23 17:52 Active AMYLASE Stat Lab 03/12/23 18:15 Completed CBC W DIFF Stat Lab 03/12/23 18:15 Completed CMP Stat Lab 03/12/23 18:15 Completed CULTURE,URINE Stat Lab 03/12/23 18:05 Received Lactic Acid Stat Lab 03/12/23 18:20 Completed UA W/RFX UR CULTURE Stat Lab 03/12/23 18:05 Completed Medication Summary Discontinued Medications Generic Name Dose Route Start Last Admin Trade Name Freq PRN Reason Stop Dose Admin Droperidol 1.25 mg 03/12/23 17:52 03/12/23 18:24 Droperidol 5 Mg/2 Ml Vial IV 03/12/23 17:53 1.25 mg STAT ONE Administration Droperidol Confirm 03/12/23 18:21 Droperidol 5 Mg/2 Ml Vial Administered 03/12/23 18:22 Dose 5 mg .ROUTE .STK-MED ONE Sodium Chloride 1,000 mls @ 999 mls/hr 03/12/23 17:52 03/12/23 19:24 Sodium Chloride 0.9% 1000 Ml IV 03/12/23 18:52 Infused .Q1H1M STA Infusion Sodium Chloride Confirm 03/12/23 18:21 Sodium Chloride 0.9% 1000 Ml Administered 03/12/23 18:22 Dose 1,000 mls @ ud .ROUTE .STK-MED ONE Lab/Rad Data: Laboratory Result Diagrams 03/12/23 18:15 03/12/23 18:15 Laboratory Results 03/12/23 03/12/23 03/12/23 Range/Units 18:20 18:15 18:15 WBC 6.4 (4.0-10.5) x10^3/uL RBC 4.73 (4.1-5.4) x10^6/uL Hgb 14.9 (12.0-16.0) g/dL Hct 44.4 (35-47) % MCV 93.9 (78-100) fL MCH 31.5 (26-32) pg MCHC 33.6 (32-36) g/dL RDW 12.4 (11.5-14.0) % Plt Count 198 (150-450) x10^3/uL MPV 10.5 (7.5-11.0) fL Gran % 80.9 H (36.0-66.0) % Immature Gran % (Auto) 0.6 H (0.00-0.4) % Nucleat RBC Rel Count 0.0 (0.00-0.1) % Eos # (Auto) 0.04 (0-0.5) x10^3/uL Immature Gran # (Auto) 0.04 H (0.00-0.03) x10^3u/L Absolute Lymphs (auto) 0.68 L (1.0-4.6) x10^3/uL Absolute Monos (auto) 0.43 (0.0-1.3) x10^3/uL Absolute Nucleated RBC 0.00 (0.00-0.01) x10^3u/L Lymphocytes % 10.6 L (24.0-44.0) % Monocytes % 6.7 (0.0-12.0) % Eosinophils % 0.6 (0.00-5.0) % Basophils % 0.6 (0.0-0.4) % Absolute Granulocytes 5.19 (1.4-6.9) x10^3/uL Basophils # 0.04 (0-0.4) x10^3/uL Sodium 136 L (137-145) mmol/L Potassium 3.9 (3.5-5.1) mmol/L Chloride 104 (98-107) mmol/L Carbon Dioxide 23 (22-30) mmol/L Anion Gap 13.2 (5-15) MEQ/L BUN 21 H (7-17) mg/dL Creatinine 1.40 H (0.52-1.04) mg/dL Estimated GFR 41.2 ML/MIN Glucose 139 H (74-106) mg/dL Lactic Acid 1.4 (0.4-2.0) Calcium 9.9 (8.4-10.2) mg/dL Total Bilirubin 0.80 (0.2-1.3) mg/dL AST 29 (14-36) U/L ALT 22 (0-35) U/L Alkaline Phosphatase 125 (38-126) U/L Serum Total Protein 8.3 H (6.3-8.2) g/dL Albumin 4.9 (3.5-5.0) g/dL Amylase 94 (30-110) U/L Urine Color (Yellow) Urine Appearance (Clear) Urine pH (4.6-8.0) Ur Specific [place] (1.005-1.030) Urine Protein (Negative) Urine Glucose (UA) (Negative) mg/dL Urine Ketones (Negative) Urine Blood (Negative) Urine Nitrite (Negative) Urine Bilirubin (Negative) Urine Urobilinogen (0.2) mg/dL Ur Leukocyte Esterase (Negative) U Hyaline Cast (Auto) (0-2) /LPF Urine Microscopic RBC (0-5) /HPF Urine Microscopic WBC (0-5) /HPF Ur Epithelial Cells (None Seen) /HPF Urine Bacteria (None Seen) /HPF Urine Culture Reflexed (NO) 03/12/23 Range/Units 18:05 WBC (4.0-10.5) x10^3/uL RBC (4.1-5.4) x10^6/uL Hgb (12.0-16.0) g/dL Hct (35-47) % MCV (78-100) fL MCH (26-32) pg MCHC (32-36) g/dL RDW (11.5-14.0) % Plt Count (150-450) x10^3/uL MPV (7.5-11.0) fL Gran % (36.0-66.0) % Immature Gran % (Auto) (0.00-0.4) % Nucleat RBC Rel Count (0.00-0.1) % Eos # (Auto) (0-0.5) x10^3/uL Immature Gran # (Auto) (0.00-0.03) x10^3u/L Absolute Lymphs (auto) (1.0-4.6) x10^3/uL Absolute Monos (auto) (0.0-1.3) x10^3/uL Absolute Nucleated RBC (0.00-0.01) x10^3u/L Lymphocytes % (24.0-44.0) % Monocytes % (0.0-12.0) % Eosinophils % (0.00-5.0) % Basophils % (0.0-0.4) % Absolute Granulocytes (1.4-6.9) x10^3/uL Basophils # (0-0.4) x10^3/uL Sodium (137-145) mmol/L Potassium (3.5-5.1) mmol/L Chloride (98-107) mmol/L Carbon Dioxide (22-30) mmol/L Anion Gap (5-15) MEQ/L BUN (7-17) mg/dL Creatinine (0.52-1.04) mg/dL Estimated GFR ML/MIN Glucose (74-106) mg/dL Lactic Acid (0.4-2.0) Calcium (8.4-10.2) mg/dL Total Bilirubin (0.2-1.3) mg/dL AST (14-36) U/L ALT (0-35) U/L Alkaline Phosphatase (38-126) U/L Serum Total Protein (6.3-8.2) g/dL Albumin (3.5-5.0) g/dL Amylase (30-110) U/L Urine Color Dark Yellow A (Yellow) Urine Appearance Turbid A (Clear) Urine pH 8.0 (4.6-8.0) Ur Specific [place] 1.010 (1.005-1.030) Urine Protein 30 (Negative) Urine Glucose (UA) Negative (Negative) mg/dL Urine Ketones Negative (Negative) Urine Blood Large A (Negative) Urine Nitrite Negative (Negative) Urine Bilirubin Negative (Negative) Urine Urobilinogen 1.0 A (0.2) mg/dL Ur Leukocyte Esterase Large A (Negative) U Hyaline Cast (Auto) 20-50 (0-2) /LPF Urine Microscopic RBC 3-5 (0-5) /HPF Urine Microscopic WBC 11-20 A (0-5) /HPF Ur Epithelial Cells Few (None Seen) /HPF Urine Bacteria Many A (None Seen) /HPF Urine Culture Reflexed YES (NO) - Progress Progress: improved Progress Note: 03/12/23 19:33 Chronic abdominal pain Chronic nausea vomiting Multiple ER visits The patient was evaluated. The patient appeared clinically well. She just was evaluated with a CAT scan 3 days ago. She has been seen multiple times in the emergency room. We gave IV fluids. We gave antiemetics. She has chronic abnormalities of her urine. There is no nitrates. There is no elevated white count. There is no fever. At this point we will wait for culture result The patient was given IV fluids. There is no signs of significant dehydration or sepsis. Lactate was unremarkable. 03/12/23 19:35 The patient at this point should be on antibiotics already. I will not prescribe any more. The patient does not show any signs of lactic acidosis. No signs of ischemic bowel. This appears to be an acute exacerbation of chronic issues. 03/12/23 19:42 The patient feels better. She wants to go home. At this point I do feel that is reasonable. The patient does not need any medications. She has tolerated p.o. liquids and solids. 03/12/23 19:42 The patient is well appearing, and nontoxic. After careful history, physical exam, vital signs, and review of any laboratory or diagnostic data as ordered, I made the decision the patient does not appear to have a life threatening illness and can be carefully discharged with close follow-up. I do not feel any further imaging or laboratory data is needed at this time. I have considered both emergent and urgent disease pathology. I have given written and verbal discharge instructions, as well as the current differential diagnosis. Patient advised of the importance of following up with their PCP concerning findings, treatment, and status post treatment. All laboratory, radiology, respiratory, and assessment findings were reviewed in detail with the patient. Patient was educated on all prescriptions and proper usage as well as the importance of following up with primary care in a timely fashion for ongoing health and wellness management. The nursing staff has reiterated the disposition plan as well. Counseled pt/family regarding: lab results, diagnosis, need for follow-up - Departure Clinical Impression: Abdominal cramping, Chronic abdominal pain, Diarrhea, Vomiting, Abdominal pain Condition: Stable Critical Care Time: No Referrals: MARQUISE HENDERSON DO [Primary Care Provider] - Follow up/PCP as directed Instructions: Abdominal pain, Nausea and Vomiting, Adult Additional Instructions: Thank you for choosing our Emergency Department for your healthcare! Please take your medicines prescribed as directed and be assured that you follow up with the physician provided or your PCP in the next 1-2 days to assure you are improving. All medical problems cannot be reasonably diagnosed in your ED visit today. Return for any changes or concerns, including if your condition does not improve or you are unable to obtain follow-up. Some final results, including radiology reports, do not return the same day, but are available on the patient portal or can be obtained through your PCP
[2023-03-12 19:37] VITALS: BP 92/61; PULSE 80
== END 2023-03-12 20:05 | disposition home or self-care (01) ==
LOC: ED 17:21
DX: G89.29 Other chronic pain (principal); R10.9 Unspecified abdominal pain; R11.2 Nausea with vomiting, unspecified; R19.7 Diarrhea, unspecified; E78.5 Hyperlipidemia, unspecified; Z79.01 Long term (current) use of anticoagulants; Z79.899 Other long term (current) drug therapy
CPT/HCPCS: 36000; 36415; 80053; 81001; 82150; 83605; 85025; 87077; 87086; 87186; 96374; 99284; J1642

== ENCOUNTER 2023-03-16 16:22 | Emergency (ER) | payer MEDICARE ==
[2023-03-16 17:20] VITALS: RESP 20; TEMP 98.8; O2SAT 98
[2023-03-16 18:18] VITALS: BP 110/75; PULSE 70
--- NOTE | 2023-03-16 18:26 | ERPHSYRPT ---
- History of Present Illness Time Seen by Provider: 03/16/23 17:00 Source: patient Exam Limitations: no limitations Patient Subjective Stated Complaint: C/O urinary retention. Patient states that she last voided at 4pm yesterday. Denies abdominal pain. C/O lower back pain. Triage Nursing Assessment: Patient ambulated back to ER. She is alert and oriented. This nurse asked patient to urinate to determine residual post void. Patient states she is unable to urinate. Patient straight cathed with 30cc of straw yellow urine obtained. Patient denies pain to abdomen, even with palpation. Physician History: 67-year-old female presents to our ED for possible urinary retention. Patient received started on a new antibiotic for chronic recurrent urinary tract infections. Since then patient states that she has not voided in a day. Patient does states that she tends to dribble and may not necessarily know when she urinates. However due to patient's possible urinary retention patient here for evaluation. She has no other complaints. No back pain. Patient voices no other complaints or concerns at this time. Portions of this note were created with voice recognition technology. There may be grammatical, spelling, punctuation or sound alike errors Timing/Duration: yesterday Severity: moderate Modifying Factors: Improves With: nothing Associated Symptoms: denies symptoms Allergies/Adverse Reactions: sumatriptan [From Imitrex] Allergy (Intermediate, Verified 03/16/23 17:04) Rash codeine Allergy (Mild, Verified 03/16/23 17:04) Rash MAKES SICK nitrofurantoin [From Macrobid] Allergy (Unknown, Verified 03/16/23 17:04) sulfamethoxazole [From Bactrim] Allergy (Unknown, Verified 03/16/23 17:04) trimethoprim [From Bactrim] Allergy (Unknown, Verified 03/16/23 17:04) sumatriptan succinate [From Imitrex] Allergy (Verified 03/16/23 17:04) morphine Adverse Reaction (Severe, Verified 03/16/23 17:04) Headache MIGRAINES fentanyl Adverse Reaction (Intermediate, Verified 03/16/23 17:04) Headache hydrocodone bitartrate [From Vicodin] Adverse Reaction (Mild, Verified 03/16/23 17:04) Vomiting hydromorphone [From Dilaudid] Adverse Reaction (Mild, Verified 03/12/23 17:56) pt states makes heache worse. Home Medications: ALPRAZolam 1 MG [Xanax 1 mg] 1 mg PO TID 02/17/13 [History] Aspirin 81 mg PO DAILY 09/11/16 [History] Levothyroxine Sodium 50 Mcg [Synthroid 50 Mcg] 50 mcg PO DAILY 07/06/17 [History] Linaclotide [Linzess] 290 mcg PO DAILY 10/07/17 [History] Dexlansoprazole [Dexilant] 60 mg PO DAILY 01/21/20 [History] Albuterol 2.5 mg/3 ml Neb [Proventil 2.5 mg/3 ml Neb] 2.5 mg IH QID 07/23/20 [History] dilTIAZem HCl [Diltiazem 24Hr ER (Cd)] 120 mg PO DAILY 09/29/21 [History] Promethazine HCl 25 mg [Phenergan 25 mg] 25 mg PO BIDPRN PRN 01/18/22 [History] Apixaban [Eliquis] 5 mg PO BID 07/02/22 [History] Fluticasone/Umeclidin/Vilanter [Trelegy Ellipta 200-62.5-25] 1 each IH DAILY 07/02/22 [History] Cetirizine HCl [Zyrtec] 1 tab PO DAILY 11/08/22 [History] Cyanocobalamin (Vitamin B-12) [Vitamin B12] 1,000 mcg PO DAILY 11/08/22 [History] Magnesium Oxide 400 mg [Mag-Ox 400] 1 tab PO DAILY 11/08/22 [History] Sodium Bicarbonate 2 tab PO BID 11/08/22 [History] Omeprazole/Sodium Bicarbonate [Omeprazole-Bicarb 40-1,100 Cap] 1 each PO HS 11/28/22 [History] Prucalopride Succinate [Motegrity] 2 mg PO DAILY 11/28/22 [History] Atorvastatin Calcium [Lipitor 40Mg] 40 mg PO DAILY 03/09/23 [History] Hx Tetanus, Diphtheria Vaccination/Date Given: Yes Hx Influenza Vaccination/Date Given: No Hx Pneumococcal Vaccination/Date Given: No Immunizations Up to Date: Yes Travel Risk - International Travel Have you traveled outside of the country in past 3 weeks: No - Coronavirus Screening Are you exhibiting any of the following symptoms?: No Close contact with a COVID-19 positive Pt in past 14-21 Days: No - Vaccine Status Have you recieved a 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: Yes 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 - Review of Systems Constitutional: No Symptoms, No Fever, No Chills Eyes: No Symptoms Ears, Nose, & Throat: No Symptoms Respiratory: No Symptoms, No Cough, No Dyspnea Cardiac: No Symptoms, No Chest Pain, No Edema, No Syncope Abdominal/Gastrointestinal: No Symptoms, No Abdominal Pain, No Nausea, No Vomiting, No Diarrhea Genitourinary Symptoms: No Symptoms, No Dysuria Musculoskeletal: No Symptoms, No Back Pain, No Neck Pain Skin: No Symptoms, No Rash Neurological: No Symptoms, No Dizziness, No Focal Weakness, No Sensory Changes Psychological: No Symptoms Endocrine: No Symptoms Hematologic/Lymphatic: No Symptoms Immunological/Allergic: No Symptoms All Other Systems: Reviewed and Negative - Past Medical History Pertinent Past Medical History: Yes Neurological History: Migraines, TIA ENT History: Cataracts Cardiac History: High Cholesterol Respiratory History: Bronchitis, COPD, Pulmonary Embolism Endocrine Medical History: Hypothyroidism Musculoskeletal History: Osteoarthritis GI Medical History: GERD, Gallbladder Disease, Other History: Other Psycho-Social History: Anxiety, Depression, Panic Disorder Female Reproductive Disorders: No Pertinent History Other Medical History: frequent uti's, chronic pseudo obstruction, blood clot, partial bowel blockage - Past Surgical History Past Surgical History: Yes Neuro Surgical History: No Pertinent History Cardiac: No Pertinent History Respiratory: No Pertinent History Gastrointestinal: Cholecystectomy, Other Genitourinary: No Pertinent History Musculoskeletal: No Pertinent History Female Surgical History: No Pertinent History Other Surgical History: all of large intestine removed and most of small intestines removed. - Social History Smoking Status: Never smoker Exposure to second hand smoke: No Alcohol Use: None Drug Use: none Patient Lives Alone: Yes Significant Family History: no pertinent family hx - Nursing Vital Signs Nursing Vital Signs: Initial Vital Signs Temperature 98.8 F 03/16/23 16:50 Pulse Rate 80 03/16/23 16:50 Respiratory Rate 20 03/16/23 16:50 Blood Pressure 119/68 03/16/23 16:50 O2 Sat by Pulse Oximetry 98 03/16/23 16:50 Pain Scale Pain Intensity 6 - Physical Exam General Appearance: no apparent distress, alert Eye Exam: PERRL/EOMI, eyes nml inspection Ears, Nose, Throat Exam: normal ENT inspection, moist mucous membranes Neck Exam: normal inspection, non-tender, supple, full range of motion Respiratory Exam: normal breath sounds, lungs clear, No respiratory distress Cardiovascular Exam: regular rate/rhythm, normal heart sounds, normal peripheral pulses Gastrointestinal/Abdomen Exam: soft, normal bowel sounds, No tenderness, No mass Back Exam: normal inspection, normal range of motion, No CVA tenderness, No vertebral tenderness Extremity Exam: normal inspection, normal range of motion, pelvis stable Neurologic Exam: alert, 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, cooperative, normal mood/affect, sensation nml, No motor deficits Skin Exam: normal color, warm, dry, No rash Lymphatic Exam: No adenopathy SpO2 Interpretation: normal SpO2: 98 O2 Delivery: Room Air - Course Nursing assessment & vital signs reviewed: Yes - Progress Progress: improved Progress Note: Patient catheterized. Small volume obtained. We followed up with a bladder scanner. 17 cc urine observed. Patient stated that she voided spontaneously after the catheterization. She is currently asymptomatic. No indication for further workup will discharge home. No indication for urinalysis patient currently on antibiotics for chronic recurrent urinary tract infection. She will get a repeat urinalysis in 3 days by her primary care doctor. Portions of this note were created with voice recognition technology. There may be grammatical, spelling, punctuation or sound alike errors Complexity of problem addressed is low acute uncomplicated No critical care time Complex of data reviewed and analyzed is low. No specialized testing ordered. Diagnosis made based on history and physical exam Risk of complication and or risk morbidity/mortality of patient management is low Patient discharged home. Vital stable. Time spent to discharge patient approximately 10 minutes. Plan of care established for shared decision making. No social determinants of health present impede follow-up. Portions of this note were created with voice recognition technology. There may be grammatical, spelling, punctuation or sound alike errors 03/16/23 18:24 Counseled pt/family regarding: diagnosis, need for follow-up, rad results - Departure Departure Disposition: Home Clinical Impression: Urinary retention Condition: Stable Critical Care Time: No Referrals: MARQUISE HENDERSON DO [Primary Care Provider] - Follow up/PCP as directed Additional Instructions: Discharge/Care Plan GEOVANNY FREY was seen on 03/16/23 in the Emergency Room. The patient was counseled regarding Diagnosis,Lab results, Imaging studies, need for follow up and when to return to the Emergency Room. Prescriptions given: Discharge Note I have spoken with the patient and/or caregivers. I have explained the patient's condition, diagnosis and treatment plan based on the information available to me at this time. I have answered the patient's and/or caregiver's questions and addressed any concerns. The patient and/or caregivers have as good understanding of the patient's diagnosis, condition and treatment plan as can be expected at this point. The vital signs have been stable. The patient's condition is stable and appropriate for discharge from the emergency department. The patient will pursue further outpatient evaluation with the primary care physician or other designated or consulting physician as outlined in the discharge instructions. The patient and/or caregivers are agreeable to this plan of care and follow-up instructions have been explained in detail. The patient and/or caregivers have received these instruction. The patient/and or caregivers are aware that any significant change in condition or worsening of symptoms should prompt an immediate return to this or the closest emergency department or call 911.
== END 2023-03-16 18:27 | disposition home or self-care (01) ==
LOC: ED 16:22
DX: R33.9 Retention of urine, unspecified (principal); E78.5 Hyperlipidemia, unspecified; Z79.01 Long term (current) use of anticoagulants; Z79.899 Other long term (current) drug therapy
CPT/HCPCS: 51701; 99283

== ENCOUNTER 2023-03-31 19:05 | Emergency (ER) | payer MEDICARE ==
[2023-03-31 19:41] VITALS: TEMP 96.6
[2023-03-31 20:02] VITALS: RESP 20; O2SAT 94
--- NOTE | 2023-03-31 20:40 | ERPHSYRPT ---
- History of Present Illness Time Seen by Provider: 03/31/23 19:55 Source: patient Exam Limitations: no limitations Patient Subjective Stated Complaint: diarrhea Triage Nursing Assessment: pt ambulated into ER without diff wearing her home O2. Pt currently has UTI and being treated per Dr. Henderson. Pt only took 6 tabs of Cephalexin 250mg and was told to stop per Dr. eHnderson and was given fosfomycin 3gm to take 1 time and is to have urine rechecked in 3 days. Pt is here today for diarrhea since 03/25/23. Abd soft with active bs x4 quad, pt denies any nausea, vomiting or indigestion. Physician History: Patient is a 67-year-old female presents to our ED for evaluation and treatment of dehydration. Patient feels dehydrated as she has been experiencing diarrhea for 1 week. Patient states she was started on a new antibiotic for urinary tract infection. Since then she has been experiencing diarrhea. Her primary care doctor has already gotten a sample of her diarrhea and is currently being tested for C. difficile. Patient denies pain. No abdominal pain. No nausea vomiting no diaphoresis. Symptoms are mild to moderate in intensity. No specific worsening or improving factors. Patient voices no other complaints or concerns at this time. Portions of this note were created with voice recognition technology. There may be grammatical, spelling, punctuation or sound alike errors Timing/Duration: week(s) (1 week) Severity: moderate Modifying Factors: Improves With: nothing Associated Symptoms: denies symptoms Allergies/Adverse Reactions: sumatriptan [From Imitrex] Allergy (Intermediate, Verified 03/31/23 19:56) Rash codeine Allergy (Mild, Verified 03/31/23 19:56) Rash MAKES SICK nitrofurantoin [From Macrobid] Allergy (Unknown, Verified 03/31/23 19:56) sulfamethoxazole [From Bactrim] Allergy (Unknown, Verified 03/31/23 19:56) trimethoprim [From Bactrim] Allergy (Unknown, Verified 03/31/23 19:56) sumatriptan succinate [From Imitrex] Allergy (Verified 03/31/23 19:56) morphine Adverse Reaction (Severe, Verified 03/31/23 19:56) Headache MIGRAINES fentanyl Adverse Reaction (Intermediate, Verified 03/31/23 19:56) Headache hydrocodone bitartrate [From Vicodin] Adverse Reaction (Mild, Verified 03/31/23 19:56) Vomiting hydromorphone [From Dilaudid] Adverse Reaction (Mild, Verified 03/31/23 19:56) pt states makes headache worse. Home Medications: ALPRAZolam 1 MG [Xanax 1 mg] 1 mg PO TID 02/17/13 [History] Aspirin 81 mg PO DAILY 09/11/16 [History] Levothyroxine Sodium 50 Mcg [Synthroid 50 Mcg] 50 mcg PO DAILY 07/06/17 [History] Linaclotide [Linzess] 290 mcg PO DAILY 10/07/17 [History] Dexlansoprazole [Dexilant] 60 mg PO DAILY 01/21/20 [History] Albuterol 2.5 mg/3 ml Neb [Proventil 2.5 mg/3 ml Neb] 2.5 mg IH QID 07/23/20 [History] dilTIAZem HCl [Diltiazem 24Hr ER (Cd)] 120 mg PO DAILY 09/29/21 [History] Promethazine HCl 25 mg [Phenergan 25 mg] 25 mg PO BIDPRN PRN 01/18/22 [History] Apixaban [Eliquis] 5 mg PO BID 07/02/22 [History] Fluticasone/Umeclidin/Vilanter [Trelegy Ellipta 200-62.5-25] 1 each IH DAILY 07/02/22 [History] Cetirizine HCl [Zyrtec] 1 tab PO DAILY 11/08/22 [History] Cyanocobalamin (Vitamin B-12) [Vitamin B12] 1,000 mcg PO DAILY 11/08/22 [History] Magnesium Oxide 400 mg [Mag-Ox 400] 1 tab PO DAILY 11/08/22 [History] Sodium Bicarbonate 2 tab PO BID 11/08/22 [History] Omeprazole/Sodium Bicarbonate [Omeprazole-Bicarb 40-1,100 Cap] 1 each PO HS 11/28/22 [History] Prucalopride Succinate [Motegrity] 2 mg PO DAILY 11/28/22 [History] Atorvastatin Calcium [Lipitor 40Mg] 40 mg PO DAILY 03/09/23 [History] Hx Tetanus, Diphtheria Vaccination/Date Given: Yes Hx Influenza Vaccination/Date Given: No Hx Pneumococcal Vaccination/Date Given: Yes Immunizations Up to Date: No Travel Risk - International Travel Have you traveled outside of the country in past 3 weeks: No - Coronavirus Screening Are you exhibiting any of the following symptoms?: Yes Symptoms: Vomiting/Diarrhea, Headaches/Body Aches/Fatigue Close contact with a COVID-19 positive Pt in past 14-21 Days: No - Vaccine Status Have you recieved a 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: Yes Hospital Clinic Assistant: Moderna - Vaccination Dates Date of 2cond Vaccination (if applicable): . - Review of Systems Constitutional: No Symptoms, No Fever, No Chills Eyes: No Symptoms Ears, Nose, & Throat: No Symptoms Respiratory: No Symptoms, No Cough, No Dyspnea Cardiac: No Symptoms, No Chest Pain, No Edema, No Syncope Abdominal/Gastrointestinal: No Symptoms, No Abdominal Pain, No Nausea, No Vomiting, No Diarrhea Genitourinary Symptoms: No Symptoms, No Dysuria Musculoskeletal: No Symptoms, No Back Pain, No Neck Pain Skin: No Symptoms, No Rash Neurological: No Symptoms, No Dizziness, No Focal Weakness, No Sensory Changes Psychological: No Symptoms Endocrine: No Symptoms Hematologic/Lymphatic: No Symptoms Immunological/Allergic: No Symptoms All Other Systems: Reviewed and Negative - Past Medical History Pertinent Past Medical History: Yes Neurological History: Migraines, TIA ENT History: Cataracts Cardiac History: High Cholesterol Respiratory History: Bronchitis, COPD, Pulmonary Embolism Endocrine Medical History: Hypothyroidism Musculoskeletal History: Osteoarthritis GI Medical History: GERD, Gallbladder Disease, Other History: Other Psycho-Social History: Anxiety, Depression, Panic Disorder Female Reproductive Disorders: No Pertinent History Other Medical History: frequent uti's, chronic pseudo obstruction, blood clot, partial bowel blockage - Past Surgical History Past Surgical History: Yes Neuro Surgical History: No Pertinent History Cardiac: No Pertinent History Respiratory: No Pertinent History Gastrointestinal: Cholecystectomy, Hernia Repair, Other Genitourinary: No Pertinent History Musculoskeletal: No Pertinent History Female Surgical History: Hysterectomy Other Surgical History: all of large intestine removed and most of small intestines removed, feeding tube in 2004 removed in 2007. - Social History Smoking Status: Never smoker Exposure to second hand smoke: Yes Alcohol Use: None Drug Use: none Patient Lives Alone: Yes Significant Family History: no pertinent family hx - Nursing Vital Signs Nursing Vital Signs: Initial Vital Signs Temperature 96.6 F 03/31/23 19:40 Pulse Rate 107 H 03/31/23 19:40 Respiratory Rate 22 03/31/23 19:40 Blood Pressure 116/74 03/31/23 19:40 O2 Sat by Pulse Oximetry 96 03/31/23 19:40 Pain Scale Pain Intensity 0 - Physical Exam General Appearance: no apparent distress, alert Eye Exam: PERRL/EOMI, eyes nml inspection Ears, Nose, Throat Exam: normal ENT inspection, TMs normal, pharynx normal, moist mucous membranes Neck Exam: normal inspection, non-tender, supple, full range of motion Respiratory Exam: normal breath sounds, lungs clear, airway intact, No respiratory distress Cardiovascular Exam: regular rate/rhythm, normal heart sounds, normal peripheral pulses Gastrointestinal/Abdomen Exam: soft, normal bowel sounds, No tenderness, No mass Back Exam: normal inspection, normal range of motion, No CVA tenderness, No vertebral tenderness Extremity Exam: normal inspection, normal range of motion, pelvis stable Neurologic Exam: alert, 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, cooperative, normal mood/affect, sensation nml, No motor deficits Skin Exam: normal color, warm, dry, No rash Lymphatic Exam: No adenopathy SpO2 Interpretation: normal SpO2: 94 O2 Delivery: Room Air - Course Nursing assessment & vital signs reviewed: Yes Ordered Tests: Active Orders 24 hr Category Date Time Status IV Insertion STAT Care 03/31/23 20:39 Active CBC W DIFF Stat Lab 03/31/23 21:00 Completed CMP Stat Lab 03/31/23 21:00 Completed Medication Summary Generic Name Dose Route Start Last Admin Trade Name Freq PRN Reason Stop Dose Admin Heparin Sodium (Beef Lung) 500 units 03/31/23 21:59 Heparin Lock Flush Pf 500 Units/5 Ml Syringe PORT FLUSH 04/30/23 21:58 PRN PRN IV PORT FLUSH Discontinued Medications Generic Name Dose Route Start Last Admin Trade Name Freq PRN Reason Stop Dose Admin Sodium Chloride 1,000 mls @ 999 mls/hr 03/31/23 20:39 03/31/23 21:16 Sodium Chloride 0.9% 1000 Ml IV 03/31/23 21:39 999 mls/hr .Q1H1M STA Administration Sodium Chloride Confirm 03/31/23 21:15 Sodium Chloride 0.9% 1000 Ml Administered 03/31/23 21:16 Dose 1,000 mls @ .ROUTE .[facility] Lab/Rad Data: Laboratory Result Diagrams 03/31/23 21:00 03/31/23 21:00 Laboratory Results 03/31/23 03/31/23 Range/Units 21:00 21:00 WBC 4.6 (4.0-10.5) x10^3/uL RBC 4.09 L (4.1-5.4) x10^6/uL Hgb 12.7 (12.0-16.0) g/dL Hct 39.1 (35-47) % MCV 95.6 (78-100) fL MCH 31.1 (26-32) pg MCHC 32.5 (32-36) g/dL RDW 12.4 (11.5-14.0) % Plt Count 168 (150-450) x10^3/uL MPV 10.1 (7.5-11.0) fL Gran % 73.4 H (36.0-66.0) % Immature Gran % (Auto) 0.7 H (0.00-0.4) % Nucleat RBC Rel Count 0.0 (0.00-0.1) % Eos # (Auto) 0.05 (0-0.5) x10^3/uL Immature Gran # (Auto) 0.03 (0.00-0.03) x10^3u/L Absolute Lymphs (auto) 0.69 L (1.0-4.6) x10^3/uL Absolute Monos (auto) 0.41 (0.0-1.3) x10^3/uL Absolute Nucleated RBC 0.00 (0.00-0.01) x10^3u/L Lymphocytes % 15.1 L (24.0-44.0) % Monocytes % 9.0 (0.0-12.0) % Eosinophils % 1.1 (0.00-5.0) % Basophils % 0.7 (0.0-0.4) % Absolute Granulocytes 3.37 (1.4-6.9) x10^3/uL Basophils # 0.03 (0-0.4) x10^3/uL Sodium 137 (137-145) mmol/L Potassium 3.6 (3.5-5.1) mmol/L Chloride 109 H (98-107) mmol/L Carbon Dioxide 22 (22-30) mmol/L Anion Gap 9.9 (5-15) MEQ/L BUN 23 H (7-17) mg/dL Creatinine 1.06 H (0.52-1.04) mg/dL Estimated GFR 57.6 ML/MIN Glucose 99 (74-106) mg/dL Calcium 9.0 (8.4-10.2) mg/dL Total Bilirubin 0.60 (0.2-1.3) mg/dL AST 23 (14-36) U/L ALT 19 (0-35) U/L Alkaline Phosphatase 98 (38-126) U/L Serum Total Protein 6.9 (6.3-8.2) g/dL Albumin 4.1 (3.5-5.0) g/dL - Progress Progress: improved Progress Note: 67-year-old female presents to our ED for evaluation of dehydration secondary to diarrhea. Physical exam essentially nonremarkable. Laboratory studies suggest some degree of dehydration based on the BUN/creatinine ratio. Patient received IV fluids. However the complete liter was not infused as patient states that she has to leave because she has to get ready for her trip to [place] tomorrow morning. Patient states "I feel great I am ready to go" Patient voices no other complaints or concerns at this time. Portions of this note were created with voice recognition technology. There may be grammatical, spelling, punctuation or sound alike errors Complexity of problem addressed is moderate acute complicated No critical care time Complexity of data reviewed and analyzed is moderate. Test ordered test reviewed for results analyzed and correlated clinically with history and phy sical exam. Risk of complication and or risk of morbidity/mortality of patient management is low Vital stable. Time spent to discharge patient is approximately 15 minutes. Plan of care established for shared decision making. No social determinants of health present impede follow-up. Patient agrees to follow-up with her primary care doctor within 48 hours for evaluation. Portions of this note were created with voice recognition technology. There may be grammatical, spelling, punctuation or sound alike errors 03/31/23 22:02 Counseled pt/family regarding: lab results, diagnosis, need for follow-up - Departure Departure Disposition: Home Clinical Impression: Diarrhea, Dehydration Condition: Stable Critical Care Time: No Referrals: MARQUISE HENDERSON DO [Primary Care Provider] - Follow up/PCP as directed Additional Instructions: Discharge/Care Plan GEOVANNY FREY was seen on 03/31/23 in the Emergency Room. The patient was counseled regarding Diagnosis,Lab results, Imaging studies, need for follow up and when to return to the Emergency Room. Prescriptions given: Discharge Note I have spoken with the patient and/or caregivers. I have explained the patient's condition, diagnosis and treatment plan based on the information available to me at this time. I have answered the patient's and/or caregiver's questions and addressed any concerns. The patient and/or caregivers have as good understanding of the patient's diagnosis, condition and treatment plan as can be expected at this point. The vital signs have been stable. The patient's condition is stable and appropriate for discharge from the emergency department. The patient will pursue further outpatient evaluation with the primary care physician or other designated or consulting physician as outlined in the discharge instructions. The patient and/or caregivers are agreeable to this plan of care and follow-up instructions have been explained in detail. The patient and/or caregivers have received these instruction. The patient/and or caregivers are aware that any significant change in condition or worsening of symptoms should prompt an immediate return to this or the closest emergency department or call 911.
[2023-03-31 21:04] LABS: Absolute Neutrophil Ct (ANC) 3.37 x10^3/uL (1.4-6.9); BASOPHIL % 0.7 % (0.0-0.4); Basophil (Absolute #) 0.03 x10^3/uL (0-0.4); Eosinophil % 1.1 % (0.00-5.0); Eosinophil (Absolute #) 0.05 x10^3/uL (0-0.5); Hematocrit 39.1 % (35-47); Hemoglobin 12.7 g/dL (12.0-16.0); IMMATURE GRAN # 0.03 x10^3u/L (0.00-0.03); IMMATURE GRAN % 0.7 % (0.00-0.4); Lymphocyte (Absolute #) 0.69 x10^3/uL (1.0-4.6); Lymphocytes % 15.1 % (24.0-44.0); Mean Cell Volume 95.6 fL (78-100); Mean Corpuscular Hemoglobin 31.1 pg (26-32); Mean Corpuscular Hgb Concent. 32.5 g/dL (32-36); Mean Platelet Volume 10.1 fL (7.5-11.0); Monocyte (Absolute #) 0.41 x10^3/uL (0.0-1.3); Neutrophil % 73.4 % (36.0-66.0); Platelet Count 168 x10^3/uL (150-450); Red Blood Count 4.09 x10^6/uL (4.1-5.4); Red Cell Distribution Width 12.4 % (11.5-14.0); White Blood Count 4.6 x10^3/uL (4.0-10.5)
[2023-03-31] MEDS ORDERED: Sodium Chloride 0.9% 1000 ML 1,000 ML ONE (21:15)
[2023-03-31] MEDS: Sodium Chloride 0.9% 1000 ML 1,000 ML IV STA (21:16)
[2023-03-31 21:17] LABS: ALBUMIN 4.1 g/dL (3.5-5.0); ANION GAP 9.9 MEQ/L (5-15); BILIRUBIN,TOTAL 0.6 mg/dL (0.2-1.3); Creatinine 1 1.06 mg/dL (0.52-1.04); EST GLOMERULAR FILTRATION RATE 57.6 ML/MIN; Potassium 3.6 mmol/L (3.5-5.1); Total Protein 6.9 g/dL (6.3-8.2)
[2023-03-31 22:14] VITALS: BP 112/54; PULSE 83
== END 2023-03-31 22:16 | disposition home or self-care (01) ==
LOC: ED 19:05
DX: E86.0 Dehydration (principal); R19.7 Diarrhea, unspecified; E78.5 Hyperlipidemia, unspecified; Z79.01 Long term (current) use of anticoagulants; Z79.899 Other long term (current) drug therapy
CPT/HCPCS: 36000; 36415; 80053; 85025; 99284; J1642

== ENCOUNTER 2023-04-27 01:35 | Emergency (ER) | payer MEDICARE ==
[2023-04-27 02:08] VITALS: PULSE 89; RESP 16; TEMP 98.7; O2SAT 99
[2023-04-27 02:24] LABS: Appearance Turbid (Clear); Bilirubin Negative (Negative); Blood Small (Negative); Epithelial Cells Many /HPF (None Seen); Glucose, Urine Negative (Negative); Ketones Trace (Negative); Leukocyte Esterase Moderate (Negative); Nitrite Negative (Negative); Ph 5.5 (4.6-8.0); Protein,Urine Dip 30 (Negative); Specific Gravity 1.025 (1.005-1.030); WBC 51-100 /HPF (0-5)
[2023-04-27 02:37] LABS: ADD URINE CULTURE? YES (NO); Bacteria Many /HPF (None Seen)
[2023-04-27] MEDS ORDERED: TORAdol 30 mg Injection ONE (02:49)
--- NOTE | 2023-04-27 02:58 | ERPHSYRPT ---
- History of Present Illness Time Seen by Provider: 04/27/23 01:50 Source: patient Exam Limitations: no limitations Patient Subjective Stated Complaint: pt states she thinks she has a uti Triage Nursing Assessment: pt alert and oriented, answers questions approp. pt ambulates into room with steady gait noted. respirations nonlabored. skin warm and dry. urine cloudy, yellow Physician History: Patient is here with frequent UTIs.Patient feels she has had a UTI coming on for the past 3 to 4 days. She did call her PCP. PCP recommended she follow-up with a urologist given her frequent UTIs. Allergies/Adverse Reactions: sumatriptan [From Imitrex] Allergy (Intermediate, Verified 04/27/23 02:08) Rash codeine Allergy (Mild, Verified 04/27/23 02:08) Rash MAKES SICK nitrofurantoin [From Macrobid] Allergy (Unknown, Verified 04/27/23 02:08) sulfamethoxazole [From Bactrim] Allergy (Unknown, Verified 04/27/23 02:08) trimethoprim [From Bactrim] Allergy (Unknown, Verified 04/27/23 02:08) sumatriptan succinate [From Imitrex] Allergy (Verified 04/27/23 02:08) morphine Adverse Reaction (Severe, Verified 04/27/23 02:08) Headache MIGRAINES fentanyl Adverse Reaction (Intermediate, Verified 04/27/23 02:08) Headache hydrocodone bitartrate [From Vicodin] Adverse Reaction (Mild, Verified 04/27/23 02:08) Vomiting hydromorphone [From Dilaudid] Adverse Reaction (Mild, Verified 04/27/23 02:08) pt states makes headache worse. Home Medications: ALPRAZolam 1 MG [Xanax 1 mg] 1 mg PO TID 02/17/13 [History] Aspirin 81 mg PO DAILY 09/11/16 [History] Levothyroxine Sodium 50 Mcg [Synthroid 50 Mcg] 50 mcg PO DAILY 07/06/17 [History] Linaclotide [Linzess] 290 mcg PO DAILY 10/07/17 [History] Dexlansoprazole [Dexilant] 60 mg PO DAILY 01/21/20 [History] Albuterol 2.5 mg/3 ml Neb [Proventil 2.5 mg/3 ml Neb] 2.5 mg IH QID 07/23/20 [History] dilTIAZem HCl [Diltiazem 24Hr ER (Cd)] 120 mg PO DAILY 09/29/21 [History] Promethazine HCl 25 mg [Phenergan 25 mg] 25 mg PO BIDPRN PRN 01/18/22 [History] Apixaban [Eliquis] 5 mg PO BID 07/02/22 [History] Fluticasone/Umeclidin/Vilanter [Trelegy Ellipta 200-62.5-25] 1 each IH DAILY 07/02/22 [History] Cetirizine HCl [Zyrtec] 1 tab PO DAILY 11/08/22 [History] Cyanocobalamin (Vitamin B-12) [Vitamin B12] 1,000 mcg PO DAILY 11/08/22 [History] Magnesium Oxide 400 mg [Mag-Ox 400] 1 tab PO DAILY 11/08/22 [History] Sodium Bicarbonate 2 tab PO BID 11/08/22 [History] Omeprazole/Sodium Bicarbonate [Omeprazole-Bicarb 40-1,100 Cap] 1 each PO HS 11/28/22 [History] Prucalopride Succinate [Motegrity] 2 mg PO DAILY 11/28/22 [History] Atorvastatin Calcium [Lipitor 40Mg] 40 mg PO DAILY 03/09/23 [History] Hx Tetanus, Diphtheria Vaccination/Date Given: Yes Hx Influenza Vaccination/Date Given: No Hx Pneumococcal Vaccination/Date Given: Yes Immunizations Up to Date: Yes Travel Risk - International Travel Have you traveled outside of the country in past 3 weeks: No - Coronavirus Screening Are you exhibiting any of the following symptoms?: No Close contact with a COVID-19 positive Pt in past 14-21 Days: No - Vaccine Status Have you recieved a 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: Yes Nurse Prn: Moderna - Vaccination Dates Date of 2cond Vaccination (if applicable): [place] - Past Medical History Pertinent Past Medical History: Yes Neurological History: Migraines, TIA ENT History: Cataracts Cardiac History: High Cholesterol Respiratory History: Bronchitis, COPD, Pulmonary Embolism Endocrine Medical History: Hypothyroidism Musculoskeletal History: Osteoarthritis GI Medical History: GERD, Gallbladder Disease, Other History: Other Psycho-Social History: Anxiety, Depression, Panic Disorder Female Reproductive Disorders: No Pertinent History Other Medical History: frequent uti's, chronic pseudo obstruction, blood clot, partial bowel blockage - Past Surgical History Past Surgical History: Yes Neuro Surgical History: No Pertinent History Cardiac: No Pertinent History Respiratory: No Pertinent History Gastrointestinal: Cholecystectomy, Hernia Repair, Other Genitourinary: No Pertinent History Musculoskeletal: No Pertinent History Female Surgical History: Hysterectomy Other Surgical History: all of large intestine removed and most of small intestines removed, feeding tube in 2004 removed in 2007. - Social History Smoking Status: Never smoker Exposure to second hand smoke: Yes Alcohol Use: None Drug Use: none Patient Lives Alone: Yes Significant Family History: no pertinent family hx - Nursing Vital Signs Nursing Vital Signs: Initial Vital Signs Temperature 98.7 F 04/27/23 01:48 Pulse Rate 89 04/27/23 01:48 Respiratory Rate 16 04/27/23 01:48 Blood Pressure 120/70 04/27/23 01:48 O2 Sat by Pulse Oximetry 99 04/27/23 01:48 Pain Scale Pain Intensity 4 - Physical Exam SpO2: 99 Comments: 04/27/23 03:57 Review of Systems Constitutional: Negative for fever. HENT: Negative for congestion. Respiratory: Negative for shortness of breath. Cardiovascular: Negative for chest pain. Gastrointestinal: Negative for abdominal pain. Genitourinary: Negative for dysuria. Musculoskeletal: Negative for back pain. Skin: Negative for rash. Neurological: Negative for headaches. Psychiatric/Behavioral: Negative for behavioral problems. All other systems reviewed and are negative. Physical Exam Vitals signs and nursing note reviewed. Constitutional: Appearance: Patient is well-developed. HENT: Head: Normocephalic and atraumatic. Eyes: Conjunctiva/sclera: Conjunctivae normal. Neck: Musculoskeletal: Normal range of motion. Trachea: No tracheal deviation. Cardiovascular: Rate and Rhythm: Normal rate. Pulmonary: Effort: Pulmonary effort is normal. No respiratory distress. Abdominal: Palpations: Abdomen is soft. Mild suprapubic tenderness. No CVA tenderness no signs of early pyelonephritis Musculoskeletal: General: No deformity. Skin: General: Skin is warm and dry. Neurological/ Psychiatric: Mental Status: Mental status, behavior, interaction with environment is appropriate for patient's age and condition - Course Nursing assessment & vital signs reviewed: Yes Ordered Tests: Active Orders 24 hr Category Date Time Status CULTURE,URINE Stat Lab 04/27/23 01:39 Received UA W/RFX UR CULTURE Stat Lab 04/27/23 01:39 Completed Medication Summary Discontinued Medications Generic Name Dose Route Start Last Admin Trade Name Elton PRN Reason Stop Dose Admin Ketorolac Tromethamine 30 mg 04/27/23 02:08 04/27/23 03:24 Ketorolac Tromethamine 30 Mg/Ml Inj IM 04/27/23 02:09 30 mg STAT ONE Administration Ketorolac Tromethamine Confirm 04/27/23 02:49 Ketorolac Tromethamine 30 Mg/Ml Inj Administered 04/27/23 02:50 Dose 30 mg .ROUTE .STK-MED ONE Lab/Rad Data: Laboratory Results 04/27/23 Range/Units 01:39 Urine Color Dark Yellow A (Yellow) Urine Appearance Turbid A (Clear) Urine pH 5.5 (4.6-8.0) Ur Specific [place] 1.025 (1.005-1.030) Urine Protein 30 (Negative) Urine Glucose (UA) Negative (Negative) mg/dL Urine Ketones Trace A (Negative) Urine Blood Small A (Negative) Urine Nitrite Negative (Negative) Urine Bilirubin Negative (Negative) Urine Urobilinogen 1.0 A (0.2) mg/dL Ur Leukocyte Esterase Moderate A (Negative) U Hyaline Cast (Auto) 3-5 A (0-2) /LPF Urine Microscopic RBC 11-20 A (0-5) /HPF Urine Microscopic WBC 51-100 A (0-5) /HPF Ur Epithelial Cells Many A (None Seen) /HPF Urine Bacteria Many A (None Seen) /HPF Urine Yeast (Budding) (None Seen) /HPF Urine Culture Reflexed YES (NO) - Progress Progress: improved Progress Note: 04/27/23 03:57 Patient here with frequent UTIs. On UA today patient does appear to have a UTI. No signs of pyelonephritis no CVA tenderness, tachycardia, fever here. Patient's pain improved with IM Toradol. Was able to review old urine cultures. Patient is susceptible to Keflex throughout these. Therefore I will start patient on Keflex today. I did discuss this with her. She will need to call her PCP for close outpatient follow-up. Reexam. And they will also need to follow-up on these cultures. Patient otherwise hemodynamically stable and does appear safe for discharge home at this point in time. Will return here sooner for any new or changing symptoms. Counseled pt/family regarding: lab results, diagnosis, need for follow-up - Departure Departure Disposition: Home Clinical Impression: UTI (urinary tract infection), Recurrent UTI Condition: Stable Critical Care Time: No Referrals: MARQUISE HENDERSON DO [Primary Care Provider] - Follow up/PCP as directed Instructions: Urinary Tract Infection, Adult (DC) Prescriptions: Cephalexin Mh 500 mg [Keflex 500 mg] 500 mg PO TID 10 Days #20 cap
[2023-04-27] MEDS: TORAdol 30 mg Injection IM ONE (03:24)
[2023-04-27 03:37] VITALS: BP 109/67
== END 2023-04-27 03:42 | disposition home or self-care (01) ==
LOC: ED 01:35
DX: N39.0 Urinary tract infection, site not specified (principal); Z79.899 Other long term (current) drug therapy; Z20.828 Contact with and (suspected) exposure to other viral communicable diseases
CPT/HCPCS: 81001; 87086; 96372; 99283; J1885

== ENCOUNTER 2023-05-05 00:25 | Emergency (ER) | payer MEDICARE ==
[2023-05-05 01:03] VITALS: TEMP 98.3
[2023-05-05 01:36] VITALS: RESP 17
--- NOTE | 2023-05-05 01:55 | ERPHSYRPT ---
- History of Present Illness Time Seen by Provider: 05/05/23 01:15 Source: patient Exam Limitations: no limitations Patient Subjective Stated Complaint: difficulty urinating since wednesday Triage Nursing Assessment: pt ambulatory to bed by self, pt alert and oriented x3, skin pwd, pt c/o difficulty urinating since wednesday, pt was seen on 04/27/23 for same issue/uti and was prescribed keflex but stated it made her "sick", med was then changed to cipro and patient started taking 05/04/23, pt has hx frequent UTIs and is also scheduled for outpatient abx treatments Physician History: Patient is a 67-year-old female presents emergency department for evaluation of unable to urinate. Patient states that she has been dribbling. But she is concerned that she has not had a normal stream of urine. RN reports that patient's adult diaper was soaked with urine. Patient concerned that this may be related to her urinary tract infection. No back pain. No fever. No change in bowel function. No recent back procedure. No saddle anesthesia. Patient voices no other concerns or symptoms. No abdominal pain. Patient is ambulatory with a normal gait pattern. Patient drove herself to the emergency department and ambulated into the ED without difficulty. No associated chest pain or shortness of breath no nausea vomiting or diaphoresis. Patient voices no other complaints or concerns at this time. Portions of this note were created with voice recognition technology. There may be grammatical, spelling, punctuation or sound alike errors Timing/Duration: today Severity: mild Modifying Factors: Improves With: nothing Associated Symptoms: denies symptoms Allergies/Adverse Reactions: sumatriptan [From Imitrex] Allergy (Intermediate, Verified 05/05/23 00:44) Rash codeine Allergy (Mild, Verified 05/05/23 00:44) Rash MAKES SICK nitrofurantoin [From Macrobid] Allergy (Unknown, Verified 05/05/23 00:44) sulfamethoxazole [From Bactrim] Allergy (Unknown, Verified 05/05/23 00:44) trimethoprim [From Bactrim] Allergy (Unknown, Verified 05/05/23 00:44) sumatriptan succinate [From Imitrex] Allergy (Verified 05/05/23 00:44) morphine Adverse Reaction (Severe, Verified 05/05/23 00:44) Headache MIGRAINES fentanyl Adverse Reaction (Intermediate, Verified 05/05/23 00:44) Headache hydrocodone bitartrate [From Vicodin] Adverse Reaction (Mild, Verified 05/05/23 00:44) Vomiting hydromorphone [From Dilaudid] Adverse Reaction (Mild, Verified 05/05/23 00:44) pt states makes headache worse. Home Medications: ALPRAZolam 1 MG [Xanax 1 mg] 1 mg PO TID 02/17/13 [History] Aspirin 81 mg PO DAILY 09/11/16 [History] Levothyroxine Sodium 50 Mcg [Synthroid 50 Mcg] 50 mcg PO DAILY 07/06/17 [History] Dexlansoprazole [Dexilant] 60 mg PO DAILY 01/21/20 [History] Albuterol 2.5 mg/3 ml Neb [Proventil 2.5 mg/3 ml Neb] 2.5 mg IH QID 07/23/20 [History] dilTIAZem HCl [Diltiazem 24Hr ER (Cd)] 120 mg PO DAILY 09/29/21 [History] Promethazine HCl 25 mg [Phenergan 25 mg] 25 mg PO BIDPRN PRN 01/18/22 [History] Apixaban [Eliquis] 5 mg PO BID 07/02/22 [History] Fluticasone/Umeclidin/Vilanter [Trelegy Ellipta 200-62.5-25] 1 each IH DAILY 07/02/22 [History] Cetirizine HCl [Zyrtec] 1 tab PO DAILY 11/08/22 [History] Magnesium Oxide 400 mg [Mag-Ox 400] 1 tab PO DAILY 11/08/22 [History] Sodium Bicarbonate 2 tab PO TID 11/08/22 [History] Omeprazole/Sodium Bicarbonate [Omeprazole-Bicarb 40-1,100 Cap] 1 each PO HS 11/28/22 [History] Atorvastatin Calcium [Lipitor 40Mg] 40 mg PO DAILY 03/09/23 [History] Rizatriptan Benzoate [Maxalt] 10 mg PO DAILY 05/05/23 [History] Tenapanor HCl [Ibsrela] 50 mg PO BID 05/05/23 [History] Ubrogepant [Ubrelvy] 100 mg PO DAILY PRN 05/05/23 [History] Hx Tetanus, Diphtheria Vaccination/Date Given: Yes Hx Influenza Vaccination/Date Given: No Hx Pneumococcal Vaccination/Date Given: Yes Travel Risk - International Travel Have you traveled outside of the country in past 3 weeks: No - Coronavirus Screening Are you exhibiting any of the following symptoms?: No Close contact with a COVID-19 positive Pt in past 14-21 Days: No - Vaccine Status Have you recieved a 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: Yes Insert Cutter: Moderna - Vaccination Dates Date of 2cond Vaccination (if applicable): - Review of Systems Constitutional: No Symptoms, No Fever, No Chills Eyes: No Symptoms Ears, Nose, & Throat: No Symptoms Respiratory: No Symptoms, No Cough, No Dyspnea Cardiac: No Symptoms, No Chest Pain, No Edema, No Syncope Abdominal/Gastrointestinal: No Symptoms, No Abdominal Pain, No Nausea, No Vomiting, No Diarrhea Genitourinary Symptoms: No Symptoms, No Dysuria Musculoskeletal: No Symptoms, No Back Pain, No Neck Pain Skin: No Symptoms, No Rash Neurological: No Symptoms, No Dizziness, No Focal Weakness, No Sensory Changes Psychological: No Symptoms Endocrine: No Symptoms Hematologic/Lymphatic: No Symptoms Immunological/Allergic: No Symptoms All Other Systems: Reviewed and Negative - Past Medical History Pertinent Past Medical History: Yes Neurological History: Migraines, TIA ENT History: Cataracts Cardiac History: High Cholesterol Respiratory History: Bronchitis, COPD, Pulmonary Embolism Endocrine Medical History: Hypothyroidism Musculoskeletal History: Osteoarthritis GI Medical History: GERD, Gallbladder Disease, Other History: Other Psycho-Social History: Anxiety, Depression, Panic Disorder Female Reproductive Disorders: No Pertinent History Other Medical History: frequent uti's, chronic pseudo obstruction, blood clot, partial bowel blockage - Past Surgical History Past Surgical History: Yes Neuro Surgical History: No Pertinent History Cardiac: No Pertinent History Respiratory: No Pertinent History Gastrointestinal: Cholecystectomy, Hernia Repair, Other Genitourinary: No Pertinent History Musculoskeletal: No Pertinent History Female Surgical History: Hysterectomy Other Surgical History: all of large intestine removed and most of small intest jeffrey removed, feeding tube in 2004 removed in 2007. Significant Family History: no pertinent family hx - Social History Smoking Status: Never smoker Exposure to second hand smoke: Yes Alcohol Use: None Drug Use: none Patient Lives Alone: Yes - Nursing Vital Signs Nursing Vital Signs: Initial Vital Signs Temperature 98.3 F 05/05/23 00:45 Pulse Rate 98 H 05/05/23 00:45 Respiratory Rate 18 05/05/23 00:45 Blood Pressure 121/89 05/05/23 00:45 O2 Sat by Pulse Oximetry 95 05/05/23 00:45 Pain Scale Pain Intensity 4 - Physical Exam General Appearance: no apparent distress, alert Eye Exam: PERRL/EOMI, eyes nml inspection Ears, Nose, Throat Exam: normal ENT inspection, moist mucous membranes Neck Exam: normal inspection, non-tender, supple, full range of motion Respiratory Exam: normal breath sounds, lungs clear, airway intact, No respiratory distress Cardiovascular Exam: regular rate/rhythm, normal heart sounds, normal peripheral pulses Gastrointestinal/Abdomen Exam: soft, normal bowel sounds, No tenderness, No mass Back Exam: normal inspection, normal range of motion, No CVA tenderness, No vertebral tenderness Extremity Exam: normal inspection, normal range of motion, pelvis stable Neurologic Exam: alert, 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, cooperative, normal mood/affect, nml cerebellar function, nml station & gait, sensation nml, No motor deficits Skin Exam: normal color, warm, dry, No rash Lymphatic Exam: No adenopathy SpO2 Interpretation: normal SpO2: 92 O2 Delivery: Room Air - Course Nursing assessment & vital signs reviewed: Yes Ordered Tests: Active Orders 24 hr Category Date Time Status AMA [Release AMA] OM.NOW Care 05/05/23 03:00 Completed [place] [Catheter-[facility]] STAT Care 05/05/23 01:35 Completed ABG [ARTERIAL BLOOD GASES] Stat Lab 05/05/23 02:38 Ordered CBC W DIFF Stat Lab 05/05/23 02:05 Completed CMP Stat Lab 05/05/23 02:05 Completed Lab/Rad Data: Laboratory Result Diagrams 05/05/23 02:05 05/05/23 02:05 Laboratory Results 05/05/23 05/05/23 Range/Units 02:05 02:05 WBC 4.9 (4.0-10.5) x10^3/uL RBC 3.91 L (4.1-5.4) x10^6/uL Hgb 12.2 (12.0-16.0) g/dL Hct 37.1 (35-47) % MCV 94.9 (78-100) fL MCH 31.2 (26-32) pg MCHC 32.9 (32-36) g/dL RDW 12.7 (11.5-14.0) % Plt Count 168 (150-450) x10^3/uL MPV 10.3 (7.5-11.0) fL Gran % 70.9 H (36.0-66.0) % Immature Gran % (Auto) 0.6 H (0.00-0.4) % Nucleat RBC Rel Count 0.0 (0.00-0.1) % Eos # (Auto) 0.07 (0-0.5) x10^3/uL Immature Gran # (Auto) 0.03 (0.00-0.03) x10^3u/L Absolute Lymphs (auto) 0.86 L (1.0-4.6) x10^3/uL Absolute Monos (auto) 0.44 (0.0-1.3) x10^3/uL Absolute Nucleated RBC 0.00 (0.00-0.01) x10^3u/L Lymphocytes % 17.7 L (24.0-44.0) % Monocytes % 9.0 (0.0-12.0) % Eosinophils % 1.4 (0.00-5.0) % Basophils % 0.4 (0.0-0.4) % Absolute Granulocytes 3.45 (1.4-6.9) x10^3/uL Basophils # 0.02 (0-0.4) x10^3/uL Sodium 139 (135-145) mmol/L Potassium 4.0 (3.5-5.1) mmol/L Chloride 117 H (98-107) mmol/L Carbon Dioxide 12 L* (22-30) mmol/L Anion Gap 13.9 (5-15) MEQ/L BUN 31 H (7-17) mg/dL Creatinine 1.20 H (0.52-1.04) mg/dL Estimated GFR 49.6 ML/MIN Glucose 102 (74-106) mg/dL Calcium 8.6 (8.4-10.2) mg/dL Total Bilirubin 0.20 (0.2-1.3) mg/dL AST 19 (14-36) U/L ALT 16 (0-35) U/L Alkaline Phosphatase 110 (38-126) U/L Serum Total Protein 6.4 (6.3-8.2) g/dL Albumin 3.5 (3.5-5.0) g/dL - Progress Progress: improved Progress Note: 67-year-old female presents to our ED for evaluation of urine output. Patient states she is concerned that she has not produced urine. Bladder scanner suggested low urine volume. Catheter placed. Approximately 50 cc of urine e xpressed. We decided to obtain laboratory workup to assess kidney function. Kidney function appears to be at patient's baseline however we observed that patient's bicarb was 12. We ordered an ABG to further assess pH and blood gases. Patient refused. Patient states that ABG is her too much and that she was not going to do it. We advised patient of the other laboratory findings. We advised patient that her kidney function appears to be at her baseline and that the reason she is not having normal urine volumes during void is because she is likely dribbling. Patient's adult diaper was soaked of urine. Patient decided to leave AGAINST MEDICAL ADVICE that she refused additional workup to further investigate the metabolic acidosis, profoundly decreased CO2. Patient is of sound mind. Patient is appropriate to make informed and independent medical decisions. Patient understands that leaving AGAINST MEDICAL ADVICE can result in delayed diagnosis, increased risk of morbidity, mortality, short and long-term disability including . In spite of these risks, patient has decided to leave AGAINST MEDICAL ADVICE. Patient understands that she may return to our ED at any point if she reconsiders. Patient agrees to follow-up with her primary care doctor within 48 hours for reevaluation. Patient voices no other complaints or concerns at this time. We will release patient AGAINST MEDICAL ADVICE per their request. Complexity of problem addressed is moderate acute complicated No critical care time Complex of data reviewed and analyzed is moderate. Test ordered test reviewed. Results analyzed and correlated clinically with history and physical examination. An abnormality was identified with patient refused to partake in the studies necessary to further evaluate the lab abnormality. Risk of complication and or risk of morbidity/mortality of patient management is moderate Patient left AGAINST MEDICAL ADVICE. No social determinants of health present impede follow-up. 05/05/23 03:11 Counseled pt/family regarding: lab results, diagnosis, need for follow-up - Departure Departure Disposition: AMA Clinical Impression: Metabolic acidosis, Urine incontinence Condition: Stable Critical Care Time: No Referrals: MARQUISE HENDERSON DO [Primary Care Provider] - Follow up/PCP as directed Additional Instructions: Discharge/Care Plan GEOVANNY FREY was seen on 05/05/23 in the Emergency Room. The patient was counseled regarding Diagnosis,Lab results, Imaging studies, need for follow up and when to return to the Emergency Room. Prescriptions given: Discharge Note I have spoken with the patient and/or caregivers. I have explained the patient's condition, diagnosis and treatment plan based on the information available to me at this time. I have answered the patient's and/or caregiver's questions and addressed any concerns. The patient and/or caregivers have as good understanding of the patient's diagnosis, condition and treatment plan as can be expected at this point. The vital signs have been stable. The patient's condition is stable and appropriate for discharge from the emergency department. The patient will pursue further outpatient evaluation with the primary care physician or other designated or consulting physician as outlined in the discharge instructions. The patient and/or caregivers are agreeable to this plan of care and follow-up instructions have been explained in detail. The patient and/or caregivers have received these instruction. The patient/and or caregivers are aware that any significant change in condition or worsening of symptoms should prompt an immediate return to this or the closest emergency department or call 911.
[2023-05-05 02:15] LABS: Absolute Neutrophil Ct (ANC) 3.45 x10^3/uL (1.4-6.9); BASOPHIL % 0.4 % (0.0-0.4); Basophil (Absolute #) 0.02 x10^3/uL (0-0.4); Eosinophil % 1.4 % (0.00-5.0); Eosinophil (Absolute #) 0.07 x10^3/uL (0-0.5); Hematocrit 37.1 % (35-47); Hemoglobin 12.2 g/dL (12.0-16.0); IMMATURE GRAN # 0.03 x10^3u/L (0.00-0.03); IMMATURE GRAN % 0.6 % (0.00-0.4); Lymphocyte (Absolute #) 0.86 x10^3/uL (1.0-4.6); Lymphocytes % 17.7 % (24.0-44.0); Mean Cell Volume 94.9 fL (78-100); Mean Corpuscular Hemoglobin 31.2 pg (26-32); Mean Corpuscular Hgb Concent. 32.9 g/dL (32-36); Mean Platelet Volume 10.3 fL (7.5-11.0); Monocyte (Absolute #) 0.44 x10^3/uL (0.0-1.3); Neutrophil % 70.9 % (36.0-66.0); Platelet Count 168 x10^3/uL (150-450); Red Blood Count 3.91 x10^6/uL (4.1-5.4); Red Cell Distribution Width 12.7 % (11.5-14.0); White Blood Count 4.9 x10^3/uL (4.0-10.5)
[2023-05-05 02:28] LABS: ALBUMIN 3.5 g/dL (3.5-5.0); ANION GAP 13.9 MEQ/L (5-15); BILIRUBIN,TOTAL 0.2 mg/dL (0.2-1.3); Calcium 8.6 mg/dL (8.4-10.2); Creatinine 1 1.2 mg/dL (0.52-1.04); EST GLOMERULAR FILTRATION RATE 49.6 ML/MIN; Total Protein 6.4 g/dL (6.3-8.2)
[2023-05-05 02:48] VITALS: BP 111/75; PULSE 76
[2023-05-05 03:17] VITALS: O2SAT 92
== END 2023-05-05 03:00 | disposition left against medical advice (07) ==
LOC: ED 00:25
DX: E87.20 Acidosis, unspecified (principal); R32 Unspecified urinary incontinence; E78.5 Hyperlipidemia, unspecified; Z79.01 Long term (current) use of anticoagulants; Z79.899 Other long term (current) drug therapy
CPT/HCPCS: 36415; 51702; 80053; 85025; 99283

== ENCOUNTER 2023-06-15 10:32 | Emergency (ER) | payer MEDICARE ==
[2023-06-15 11:45] VITALS: TEMP 96.2
[2023-06-15 12:30] LABS: Appearance Clear (Clear); Bilirubin Small (Negative); Blood Negative (Negative); Epithelial Cells Few /HPF (None Seen); Glucose, Urine Negative (Negative); Ketones Negative (Negative); Leukocyte Esterase Moderate (Negative); Ph 5.5 (4.6-8.0); Protein,Urine Dip Trace (Negative); Specific Gravity 1.015 (1.005-1.030)
[2023-06-15 12:51] LABS: Nitrite COLOR INTERFERANCE (Negative)
[2023-06-15 12:53] LABS: ADD URINE CULTURE? YES (NO); Bacteria Few /HPF (None Seen)
[2023-06-15 13:58] VITALS: BP 133/64; PULSE 81; RESP 18; O2SAT 99
[2023-06-15] MEDS ORDERED: Levofloxacin 500 MG Tablet ONE (14:07)
[2023-06-15] MEDS: Levofloxacin 500 MG Tablet PO ONE (14:09)
--- NOTE | 2023-06-15 14:18 | ERPHSYRPT ---
- History of Present Illness Time Seen by Provider: 06/15/23 11:45 Source: patient Exam Limitations: no limitations Patient Subjective Stated Complaint: Nausea Triage Nursing Assessment: Patient ambulated back to ED and transferred self to bed. Patient A+O X3. Patient's skin pink, warm and dry. Patient complains of dysuria, frequency, and urgency when urinating 4/10 for the past 3 days. Patient has been taking Pyridium. Patient also complains of nausea. Patient currently on 2 liters per N/C, which she wears 07/09. Physician History: 68-year-old female with chronic recurrent urinary tract infections presents to our ED for evaluation of suspected UTI. Patient has been experiencing dysuria urinary frequency and urgency. Patient states that her primary care doctor is out of town. Patient's urologist not available. No fever no back pain. Symptoms are mild to moderate in intensity. No specific worsening or improving factors. Patient otherwise feels well. She voices no other complaints or concerns at this time. Portions of this note were created with voice recognition technology. There may be grammatical, spelling, punctuation or sound alike errors Timing/Duration: today Severity: moderate Associated Symptoms: denies symptoms Allergies/Adverse Reactions: sumatriptan [From Imitrex] Allergy (Intermediate, Verified 06/15/23 11:28) Rash codeine Allergy (Mild, Verified 06/15/23 11:28) Rash MAKES SICK nitrofurantoin [From Macrobid] Allergy (Unknown, Verified 06/15/23 11:28) sulfamethoxazole [From Bactrim] Allergy (Unknown, Verified 06/15/23 11:28) trimethoprim [From Bactrim] Allergy (Unknown, Verified 06/15/23 11:28) sumatriptan succinate [From Imitrex] Allergy (Verified 06/15/23 11:28) morphine Adverse Reaction (Severe, Verified 06/15/23 11:28) Headache MIGRAINES fentanyl Adverse Reaction (Intermediate, Verified 06/15/23 11:28) Headache hydrocodone bitartrate [From Vicodin] Adverse Reaction (Mild, Verified 06/15/23 11:28) Vomiting hydromorphone [From Dilaudid] Adverse Reaction (Mild, Verified 06/15/23 11:28) pt states makes headache worse. Home Medications: ALPRAZolam 1 MG [Xanax 1 mg] 1 mg PO TID 02/17/13 [History] Aspirin 81 mg PO DAILY 09/11/16 [History] Levothyroxine Sodium 50 Mcg [Synthroid 50 Mcg] 50 mcg PO DAILY 07/06/17 [History] Dexlansoprazole [Dexilant] 60 mg PO DAILY 01/21/20 [History] Albuterol 2.5 mg/3 ml Neb [Proventil 2.5 mg/3 ml Neb] 2.5 mg IH QID 07/23/20 [History] dilTIAZem HCl [Diltiazem 24Hr ER (Cd)] 120 mg PO DAILY 09/29/21 [History] Promethazine HCl 25 mg [Phenergan 25 mg] 25 mg PO BIDPRN PRN 01/18/22 [History] Apixaban [Eliquis] 5 mg PO BID 07/02/22 [History] Fluticasone/Umeclidin/Vilanter [Trelegy Ellipta 200-62.5-25] 1 each IH DAILY 07/02/22 [History] Cetirizine HCl [Zyrtec] 1 tab PO DAILY 11/08/22 [History] Magnesium Oxide 400 mg [Mag-Ox 400] 1 tab PO DAILY 11/08/22 [History] Sodium Bicarbonate 2 tab PO TID 11/08/22 [History] Omeprazole/Sodium Bicarbonate [Omeprazole-Bicarb 40-1,100 Cap] 1 each PO HS 11/28/22 [History] Atorvastatin Calcium [Lipitor 40Mg] 40 mg PO DAILY 03/09/23 [History] Rizatriptan Benzoate [Maxalt] 10 mg PO DAILY 05/05/23 [History] Tenapanor HCl [Ibsrela] 50 mg PO BID 05/05/23 [History] Ubrogepant [Ubrelvy] 100 mg PO DAILY PRN 05/05/23 [History] Hx Tetanus, Diphtheria Vaccination/Date Given: Yes Hx Influenza Vaccination/Date Given: No Hx Pneumococcal Vaccination/Date Given: Yes Immunizations Up to Date: Yes Travel Risk - International Travel Have you traveled outside of the country in past 3 weeks: No - Emerging Infectious Disease Are you exhibiting symptoms associated with any current EIDs: No - Review of Systems Constitutional: No Symptoms, No Fever, No Chills Eyes: No Symptoms Ears, Nose, & Throat: No Symptoms Respiratory: No Symptoms, No Cough, No Dyspnea Cardiac: No Symptoms, No Chest Pain, No Edema, No Syncope Abdominal/Gastrointestinal: No Symptoms, No Abdominal Pain, No Nausea, No Vomiting, No Diarrhea Genitourinary Symptoms: No Symptoms, No Dysuria Musculoskeletal: No Symptoms, No Back Pain, No Neck Pain Skin: No Symptoms, No Rash Neurological: No Symptoms, No Dizziness, No Focal Weakness, No Sensory Changes Psychological: No Symptoms Endocrine: No Symptoms Hematologic/Lymphatic: No Symptoms Immunological/Allergic: No Symptoms All Other Systems: Reviewed and Negative - Past Medical History Pertinent Past Medical History: Yes Neurological History: Migraines, TIA ENT History: Cataracts Cardiac History: High Cholesterol Respiratory History: Bronchitis, COPD, Pulmonary Embolism Endocrine Medical History: Hypothyroidism Musculoskeletal History: Osteoarthritis GI Medical History: GERD, Other History: Other Psycho-Social History: Anxiety, Depression, Panic Disorder Female Reproductive Disorders: No Pertinent History Other Medical History: frequent uti's, chronic pseudo obstruction, blood clot, partial bowel blockage - Past Surgical History Past Surgical History: Yes Neuro Surgical History: No Pertinent History Cardiac: No Pertinent History Respiratory: No Pertinent History Gastrointestinal: Cholecystectomy, Other Genitourinary: No Pertinent History Musculoskeletal: No Pertinent History Female Surgical History: Hysterectomy Other Surgical History: all of large intestine removed and most of small intestines removed, feeding tube in 2004 removed in 2007. Significant Family History: no pertinent family hx - Social History Smoking Status: Never smoker Exposure to second hand smoke: Yes Alcohol Use: None Drug Use: none Patient Lives Alone: Yes - Nursing Vital Signs Nursing Vital Signs: Initial Vital Signs Temperature 96.2 F 06/15/23 11:28 Pulse Rate 83 06/15/23 11:28 Respiratory Rate 20 06/15/23 11:28 Blood Pressure 142/64 06/15/23 11:28 O2 Sat by Pulse Oximetry 95 06/15/23 11:28 Pain Scale Pain Intensity 4 - Physical Exam General Appearance: no apparent distress, alert Eye Exam: PERRL/EOMI, eyes nml inspection Ears, Nose, Throat Exam: normal ENT inspection, TMs normal, pharynx normal, moist mucous membranes Neck Exam: normal inspection, non-tender, supple, full range of motion Respiratory Exam: normal breath sounds, lungs clear, airway intact, No respiratory distress Cardiovascular Exam: regular rate/rhythm, normal heart sounds, normal peripheral pulses Gastrointestinal/Abdomen Exam: soft, normal bowel sounds, No tenderness, No mass Back Exam: normal inspection, normal range of motion, No CVA tenderness, No vert ebral tenderness Extremity Exam: normal inspection, normal range of motion, pelvis stable Neurologic Exam: alert, 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, cooperative, normal mood/affect, nml cerebellar function, nml station & gait, sensation nml, No motor deficits Skin Exam: normal color, warm, dry, No rash Lymphatic Exam: No adenopathy SpO2 Interpretation: normal SpO2: 99 O2 Delivery: Room Air - Course Nursing assessment & vital signs reviewed: Yes Ordered Tests: Active Orders 24 hr Category Date Time Status CULTURE,URINE Stat Lab 06/15/23 11:59 Received UA W/RFX UR CULTURE Stat Lab 06/15/23 11:59 Completed Medication Summary Discontinued Medications Generic Name Dose Route Start Last Admin Trade Name Freq PRN Reason Stop Dose Admin Levofloxacin 500 mg 06/15/23 14:04 06/15/23 14:09 Levofloxacin 500 Mg Tablet PO 06/15/23 14:05 500 mg STAT ONE Administration Levofloxacin Confirm 06/15/23 14:07 Levofloxacin 500 Mg Tablet Administered 06/15/23 14:08 Dose 500 mg .ROUTE .[facility]-MED ONE Lab/Rad Data: Laboratory Results 06/15/23 Range/Units 11:59 Urine Color [place] A (Yellow) Urine Appearance Clear (Clear) Urine pH 5.5 (4.6-8.0) Ur Specific [place] 1.015 (1.005-1.030) Urine Protein Trace A (Negative) Urine Glucose (UA) Negative (Negative) mg/dL Urine Ketones Negative (Negative) Urine Blood Negative (Negative) Urine Nitrite COLOR INTERFERANCE (Negative) Urine Bilirubin Small A (Negative) Urine Urobilinogen 1.0 A (0.2) mg/dL Ur Leukocyte Esterase Moderate A (Negative) U Hyaline Cast (Auto) 3-5 A (0-2) /LPF Urine Microscopic RBC 6-10 A (0-5) /HPF Urine Microscopic WBC 6-10 A (0-5) /HPF Ur Epithelial Cells Few (None Seen) /HPF Urine Bacteria Few A (None Seen) /HPF Urine Culture Reflexed YES (NO) - Progress Progress: improved Progress Note: 68-year-old female chronic recurrent UTI presents to our ED with urinary symptomology. Urinalysis reveals a urinary tract infection. Patient has been treated in the past with sharif quinolone. Patient requesting ciprofloxacin. Patient received a dose of Levaquin in our ED. A prescription for Cipro forwarded to patient's pharmacy. Patient agrees to follow-up with her primary care doctor office within 48 hours for evaluation. Patient voices no other complaints or concerns at this time. Patient currently on Pyridium. Patient declined pain medication. Portions of this note were created with voice recognition technology. There may be grammatical, spelling, punctuation or sound alike errors Complexity problem addressed is moderate acute complicated No critical care time Complexity of data reviewed and analyzed is moderate. Dr. Burroughs independently reviewed the results of the urinalysis. Results analyzed and correlated clinically with history and physical exam. Risk of complication and or risk of morbidity/mortality of patient management is moderate. A prescription for ciprofloxacin forwarded to patient's pharmacy Vital stable. Time spent to discharge patient approximately 10 minutes. Plan of care established for shared decision making. No social determinants of health present impede follow-up. Portions of this note were created with voice recognition technology. There may be grammatical, spelling, punctuation or sound alike errors 06/15/23 14:20 Counseled pt/family regarding: lab results, diagnosis, need for follow-up - Departure Departure Disposition: Home Clinical Impression: UTI (urinary tract infection) Condition: Stable Critical Care Time: No Referrals: MARQUISE HENDERSON DO [Primary Care Provider] - Follow up/PCP as directed Additional Instructions: Discharge/Care Plan SHANTEGEOVANNY BALDERAS was seen on 06/15/23 in the Emergency Room. The patient was counseled regarding Diagnosis,Lab results, Imaging studies, need for follow up and when to return to the Emergency Room. Prescriptions given: Discharge Note I have spoken with the patient and/or caregivers. I have explained the patient's condition, diagnosis and treatment plan based on the information available to me at this time. I have answered the patient's and/or caregiver's questions and addressed any concerns. The patient and/or caregivers have as good understanding of the patient's diagnosis, condition and treatment plan as can be expected at this point. The vital signs have been stable. The patient's condition is stable and appropriate for discharge from the emergency department. The patient will pursue further outpatient evaluation with the primary care physician or other designated or consulting physician as outlined in the discharge instructions. The patient and/or caregivers are agreeable to this plan of care and follow-up instructions have been explained in detail. The patient and/or caregivers have received these instruction. The patient/and or caregivers are aware that any significant change in condition or worsening of symptoms should prompt an immediate return to this or the closest emergency department or call 911. Prescriptions: Ciprofloxacin [Cipro 500 MG] 500 mg PO BID #14 tablet
== END 2023-06-15 14:20 | disposition home or self-care (01) ==
LOC: ED 10:32
DX: N39.0 Urinary tract infection, site not specified (principal); R30.0 Dysuria; R35.0 Frequency of micturition; E78.5 Hyperlipidemia, unspecified; Z79.01 Long term (current) use of anticoagulants; Z79.899 Other long term (current) drug therapy
CPT/HCPCS: 81001; 87077; 87086; 87186; 99282; A9270-GY

== ENCOUNTER 2023-06-19 15:48 | Emergency (ER) | payer MEDICARE ==
--- NOTE | 2023-06-19 15:55 | ERPHSYRPT ---
- History of Present Illness Time Seen by Provider: 06/19/23 15:53 Source: patient Exam Limitations: no limitations Physician History: This is a 68-year-old white female patient of Dr. Henderson who frequents our emergency department often for recurrent urinary tract infections. Patient was here on 06/15/2023 and was diagnosed with a urinary tract infection and placed on Cipro. Culture and sensitivity showed that this urinary tract infection was not sensitive to Cipro and the patient was changed to Keflex. 2 days ago, the patient states that she had a fever and chills. Patient also states she has constipation and has had that for over a month. There are times she has to digitally disimpact herself. Patient arrives to the emergency department without fever. Patient chronically has nausea but has not been vomiting. There was no mention of constipation at her last visit on 06/15/2023 to the emergency department. Patient has multiple medical issues including chronic UTIs, hypertension, hypothyroidism, hyperlipidemia, migraine headaches, COPD, gastroesophageal reflux disease, panic disorder and chronic constipation. She is on Eliquis. Timing/Duration: other (Symptoms for over a month) Fever Severity: gone Fever Therapy CAUSTIC MIXER: none Associated Symptoms: denies symptoms Allergies/Adverse Reactions: sumatriptan [From Imitrex] Allergy (Intermediate, Verified 06/19/23 16:00) Rash codeine Allergy (Mild, Verified 06/19/23 16:00) Rash MAKES SICK nitrofurantoin [From Macrobid] Allergy (Unknown, Verified 06/19/23 16:00) sulfamethoxazole [From Bactrim] Allergy (Unknown, Verified 06/19/23 16:00) trimethoprim [From Bactrim] Allergy (Unknown, Verified 06/19/23 16:00) sumatriptan succinate [From Imitrex] Allergy (Verified 06/19/23 16:00) morphine Adverse Reaction (Severe, Verified 06/19/23 16:00) Headache MIGRAINES fentanyl Adverse Reaction (Intermediate, Verified 06/19/23 16:00) Headache hydrocodone bitartrate [From Vicodin] Adverse Reaction (Mild, Verified 06/19/23 16:00) Vomiting hydromorphone [From Dilaudid] Adverse Reaction (Mild, Verified 06/19/23 16:00) pt states makes headache worse. Home Medications: ALPRAZolam 1 MG [Xanax 1 mg] 1 mg PO TID 02/17/13 [History] Aspirin 81 mg PO DAILY 09/11/16 [History] Levothyroxine Sodium 50 Mcg [Synthroid 50 Mcg] 50 mcg PO DAILY 07/06/17 [History] Dexlansoprazole [Dexilant] 60 mg PO DAILY 01/21/20 [History] Albuterol 2.5 mg/3 ml Neb [Proventil 2.5 mg/3 ml Neb] 2.5 mg IH QID 07/23/20 [History] dilTIAZem HCl [Diltiazem 24Hr ER (Cd)] 120 mg PO DAILY 09/29/21 [History] Promethazine HCl 25 mg [Phenergan 25 mg] 25 mg PO BIDPRN PRN 01/18/22 [History] Apixaban [Eliquis] 5 mg PO BID 07/02/22 [History] Fluticasone/Umeclidin/Vilanter [Trelegy Ellipta 200-62.5-25] 1 each IH DAILY 07/02/22 [History] Cetirizine HCl [Zyrtec] 1 tab PO DAILY 11/08/22 [History] Magnesium Oxide 400 mg [Mag-Ox 400] 1 tab PO DAILY 11/08/22 [History] Sodium Bicarbonate 2 tab PO TID 11/08/22 [History] Omeprazole/Sodium Bicarbonate [Omeprazole-Bicarb 40-1,100 Cap] 1 each PO HS 11/28/22 [History] Atorvastatin Calcium [Lipitor 40Mg] 40 mg PO DAILY 03/09/23 [History] Rizatriptan Benzoate [Maxalt] 10 mg PO DAILY 05/05/23 [History] Tenapanor HCl [Ibsrela] 50 mg PO BID 05/05/23 [History] Ubrogepant [Ubrelvy] 100 mg PO DAILY PRN 05/05/23 [History] Hx Tetanus, Diphtheria Vaccination/Date Given: Yes Hx Influenza Vaccination/Date Given: No Hx Pneumococcal Vaccination/Date Given: Yes Travel Risk - International Travel Have you traveled outside of the country in past 3 weeks: No - Emerging Infectious Disease Are you exhibiting symptoms associated with any current EIDs: No - Review of Systems Constitutional: No Symptoms Eyes: No Symptoms Ears, Nose, & Throat: No Symptoms Respiratory: No Symptoms Cardiac: No Symptoms Abdominal/Gastrointestinal: Nausea (Danya unrelated to her constipation), Constipation, No Abdominal Pain, No Vomiting Genitourinary Symptoms: No Symptoms Musculoskeletal: No Symptoms Skin: No Symptoms Neurological: No Symptoms Psychological: No Symptoms Endocrine: No Symptoms Hematologic/Lymphatic: No Symptoms Immunological/Allergic: No Symptoms All Other Systems: Reviewed and Negative - Past Medical History Pertinent Past Medical History: Yes Neurological History: Migraines, TIA ENT History: Cataracts Cardiac History: High Cholesterol Respiratory History: Bronchitis, COPD, Pulmonary Embolism Endocrine Medical History: Hypothyroidism Musculoskeletal History: Osteoarthritis GI Medical History: GERD, Other History: Other Psycho-Social History: Anxiety, Depression, Panic Disorder Female Reproductive Disorders: No Pertinent History Other Medical History: frequent uti's, chronic pseudo obstruction, blood clot, partial bowel blockage - Past Surgical History Past Surgical History: Yes Neuro Surgical History: No Pertinent History Cardiac: No Pertinent History Respiratory: No Pertinent History Gastrointestinal: Cholecystectomy, Other Genitourinary: No Pertinent History Musculoskeletal: No Pertinent History Female Surgical History: Hysterectomy Other Surgical History: all of large intestine removed and most of small intestines removed, feeding tube in 2004 removed in 2007. Significant Family History: no pertinent family hx - Social History Smoking Status: Never smoker Exposure to second hand smoke: Yes Alcohol Use: None Drug Use: none Patient Lives Alone: Yes - Nursing Vital Signs Nursing Vital Signs: Initial Vital Signs Temperature 98.3 F 06/19/23 16:02 Pulse Rate 53 L 06/19/23 16:02 Respiratory Rate 19 06/19/23 16:02 Blood Pressure 106/74 06/19/23 16:02 O2 Sat by Pulse Oximetry 94 L 06/19/23 16:02 Pain Scale Pain Intensity 9 - Physical Exam General Appearance: no apparent distress, alert, anxiety Eye Exam: PERRL/EOMI, eyes nml inspection ENT Exam: normal ENT inspection, hearing grossly normal Neck Exam: normal inspection, non-tender, supple, full range of motion Respiratory Exam: normal breath sounds, lungs clear, no respiratory distress, no accessory muscle use, No chest non-tender Cardiovascular/Chest Exam: normal heart sounds, regular rate/rhythm Gastrointestinal/Abdominal Exam: soft, non tender, no distention, no mass, no guarding, no ecchymosis, no organomegaly, no pulsatile mass, normal bowel sounds Pelvic Exam: not done Rectal Exam: not done Extremity Exam: non-tender, normal range of motion, normal inspection Neurologic Exam: alert, 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, cooperative, 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 Skin Exam: normal color, warm, dry Lymphatic: No adenopathy SpO2 Interpretation: normal O2 Delivery: Room Air - Course Nursing assessment & vital signs reviewed: Yes Ordered Tests: Active Orders 24 hr Category Date Time Status Enema STAT Care 06/19/23 17:55 Active KUB Stat Exams 06/19/23 16:22 Taken - Progress Progress: improved Progress Note: 06/19/23 17:28 My medical decision making and the assignment of low complexity to this patient's medical issue is based on review of the patient's past medical his tory, review the patient's medication list, review of patient drug allergy list, history present illness and physical findings on examination. Patient's workup will require a KUB. If she has significant amount of stool in the rectal vault as well as the distal sigmoid colon, we will provide the patient with a soapsuds enema. Patient is to continue using her current antibiotic regimen as this medication is sensitive to the current urinary tract infection. Differential diagnosis is bowel obstruction, fecal impaction, constipation, ileus 06/19/23 18:32 Patient had a good response to the soapsuds enema. Counseled pt/family regarding: diagnosis, need for follow-up, rad results Medical Desision Making - Diagnostic Testing Diagnostic test were ordered, analyzed, and reviewed by me: Yes Radiological Interpretation: Interpreted by me - Risk of complications Low Risk: Low risk of morbidity from additional dx testing or treatment - Departure Departure Disposition: Home Clinical Impression: Constipation Condition: Stable Critical Care Time: No Referrals: MARQUISE HENDERSON DO [Primary Care Provider] - Follow up/PCP as directed Additional Instructions: Drop your diet back to clear liquids and full liquid diet. Continue your antibiotics as prescribed. If there are no contraindications you may use MiraLAX [id number] and/or milk of magnesia if there are no contraindications. Follow the directions on the [id number] product packaging. Call your primary care provider on 06/21/2023 to make arranges for follow-up appointment to be seen in the next 5 to 7 days.
[2023-06-19 16:17] VITALS: TEMP 98.3
[2023-06-19 18:34] VITALS: BP 112/96; PULSE 60; RESP 18; O2SAT 97
--- NOTE | 2023-06-19 20:28 | XRAY ---
Indication: Constipation. Comparison: February 25, 2023 KUB again nonacute and nonobstructed with little colonic fecal debris greatest in sigmoid. Solid organs unremarkable. Osseous structures intact again with osteopenia and degenerative changes.
== END 2023-06-19 18:50 | disposition home or self-care (01) ==
LOC: ED 15:48
DX: K59.00 Constipation, unspecified (principal); R50.9 Fever, unspecified; I10 Essential (primary) hypertension; E78.5 Hyperlipidemia, unspecified; Z79.01 Long term (current) use of anticoagulants; Z79.899 Other long term (current) drug therapy
CPT/HCPCS: 74018; 99283

== ENCOUNTER 2023-06-30 11:36 | Emergency (ER) | payer MEDICARE ==
[2023-06-30 12:19] VITALS: PULSE 93; TEMP 96.9
--- NOTE | 2023-06-30 12:34 | ERPHSYRPT ---
- History of Present Illness Time Seen by Provider: 06/30/23 12:21 Source: patient Exam Limitations: no limitations Patient Subjective Stated Complaint: UTI and a sore throat Triage Nursing Assessment: Pt brought self to the ER, rates pain as 8/10, c/o of a sore throat that goes up into the right ear, pt c/o of a uti, pules normal, skin n/w/d, on. 3L NC, doesn't appear to be in any distress Physician History: For the past 3 days pt has had a sore throat and 100.2 degree fever; for the past 2 weeks a right earache; also c/o dysuria. Allergies/Adverse Reactions: sumatriptan [From Imitrex] Allergy (Intermediate, Verified 06/30/23 12:20) Rash codeine Allergy (Mild, Verified 06/30/23 12:20) Rash MAKES SICK nitrofurantoin [From Macrobid] Allergy (Unknown, Verified 06/30/23 12:20) sulfamethoxazole [From Bactrim] Allergy (Unknown, Verified 06/30/23 12:20) trimethoprim [From Bactrim] Allergy (Unknown, Verified 06/30/23 12:20) sumatriptan succinate [From Imitrex] Allergy (Verified 06/30/23 12:20) morphine Adverse Reaction (Severe, Verified 06/30/23 12:20) Headache MIGRAINES fentanyl Adverse Reaction (Intermediate, Verified 06/30/23 12:20) Headache hydrocodone bitartrate [From Vicodin] Adverse Reaction (Mild, Verified 06/30/23 12:20) Vomiting hydromorphone [From Dilaudid] Adverse Reaction (Mild, Verified 06/30/23 12:20) pt states makes headache worse. Home Medications: ALPRAZolam 1 MG [Xanax 1 mg] 1 mg PO TID 02/17/13 [History] Aspirin 81 mg PO DAILY 09/11/16 [History] Levothyroxine Sodium 50 Mcg [Synthroid 50 Mcg] 50 mcg PO DAILY 07/06/17 [History] Dexlansoprazole [Dexilant] 60 mg PO DAILY 01/21/20 [History] Albuterol 2.5 mg/3 ml Neb [Proventil 2.5 mg/3 ml Neb] 2.5 mg IH QID 07/23/20 [History] dilTIAZem HCl [Diltiazem 24Hr ER (Cd)] 120 mg PO DAILY 09/29/21 [History] Promethazine HCl 25 mg [Phenergan 25 mg] 25 mg PO BIDPRN PRN 01/18/22 [History] Apixaban [Eliquis] 5 mg PO BID 07/02/22 [History] Fluticasone/Umeclidin/Vilanter [Trelegy Ellipta 200-62.5-25] 1 each IH DAILY 07/02/22 [History] Cetirizine HCl [Zyrtec] 1 tab PO DAILY 11/08/22 [History] Magnesium Oxide 400 mg [Mag-Ox 400] 1 tab PO DAILY 11/08/22 [History] Sodium Bicarbonate 2 tab PO TID 11/08/22 [History] Omeprazole/Sodium Bicarbonate [Omeprazole-Bicarb 40-1,100 Cap] 1 each PO HS 11/28/22 [History] Atorvastatin Calcium [Lipitor 40Mg] 40 mg PO DAILY 03/09/23 [History] Rizatriptan Benzoate [Maxalt] 10 mg PO DAILY 05/05/23 [History] Tenapanor HCl [Ibsrela] 50 mg PO BID 05/05/23 [History] Ubrogepant [Ubrelvy] 100 mg PO DAILY PRN 05/05/23 [History] Hx Tetanus, Diphtheria Vaccination/Date Given: Yes Hx Influenza Vaccination/Date Given: No Hx Pneumococcal Vaccination/Date Given: Yes Travel Risk - International Travel Have you traveled outside of the country in past 3 weeks: No - Emerging Infectious Disease Are you exhibiting symptoms associated with any current EIDs: No - Review of Systems Constitutional: Fever Ears, Nose, & Throat: Ear Pain, Throat Pain Genitourinary Symptoms: Dysuria - Past Medical History Pertinent Past Medical History: Yes Neurological History: Migraines, TIA ENT History: Cataracts Cardiac History: High Cholesterol Respiratory History: Bronchitis, COPD, Pulmonary Embolism Endocrine Medical History: Hypothyroidism Musculoskeletal History: Osteoarthritis GI Medical History: GERD, Other History: Other Psycho-Social History: Anxiety, Depression, Panic Disorder Female Reproductive Disorders: No Pertinent History Other Medical History: frequent uti's, chronic pseudo obstruction, blood clot, partial bowel blockage - Past Surgical History Past Surgical History: Yes Neuro Surgical History: No Pertinent History Cardiac: No Pertinent History Respiratory: No Pertinent History Gastrointestinal: Cholecystectomy, Other Genitourinary: No Pertinent History Musculoskeletal: No Pertinent History Female Surgical History: Hysterectomy Other Surgical History: all of large intestine removed and most of small intestines removed, feeding tube in 2004 removed in 2007. Significant Family History: no pertinent family hx - Social History Smoking Status: Never smoker Exposure to second hand smoke: Yes Alcohol Use: None Drug Use: none Patient Lives Alone: Yes - Nursing Vital Signs Nursing Vital Signs: Initial Vital Signs Temperature 96.9 F 06/30/23 12:12 Pulse Rate 93 H 06/30/23 12:12 Blood Pressure 92/62 06/30/23 12:12 O2 Sat by Pulse Oximetry 97 06/30/23 12:12 Pain Scale Pain Intensity 8 - Physical Exam General Appearance: alert Eye Exam: PERRL/EOMI Ears, Nose, Throat Exam: TMs normal, pharyngeal erythema (mild) Neck Exam: normal inspection Respiratory Exam: lungs clear Cardiovascular Exam: normal heart sounds Gastrointestinal/Abdomen Exam: normal bowel sounds Neurologic Exam: alert, cooperative SpO2 Interpretation: normal SpO2: 97 O2 Delivery: Room Air - Course Nursing assessment & vital signs reviewed: Yes Ordered Tests: Active Orders 24 hr Category Date Time Status CULTURE,URINE Stat Lab 06/30/23 12:40 Received UA W/RFX UR CULTURE Stat Lab 06/30/23 12:40 Completed Medication Summary Generic Name Dose Route Start Last Admin Trade Name Freq PRN Reason Stop Dose Admin Ceftriaxone Sodium 1,000 mg 06/30/23 14:26 Ceftriaxone Sodium 1000 Mg Inj Vial IM 06/30/23 14:27 STAT ONE Lab/Rad Data: Laboratory Results 06/30/23 06/30/23 06/30/23 Range/Units 12:40 12:40 12:40 Urine Color Yellow (Yellow) Urine Appearance Clear (Clear) Urine pH 6.5 (4.6-8.0) Ur Specific [place] 1.015 (1.005-1.030) Urine Protein Negative (Negative) Urine Glucose (UA) Negative (Negative) mg/dL Urine Ketones Negative (Negative) Urine Blood Negative (Negative) Urine Nitrite Negative (Negative) Urine Bilirubin Negative (Negative) Urine Urobilinogen 0.2 (0.2) mg/dL Ur Leukocyte Esterase Moderate A (Negative) U Hyaline Cast (Auto) NONE SEEN (0-2) /LPF Urine Microscopic RBC 0-2 (0-5) /HPF Urine Microscopic WBC 11-20 A (0-5) /HPF Ur Epithelial Cells None Seen (None Seen) /HPF Urine Bacteria None Seen (None Seen) /HPF Urine Culture Reflexed YES (NO) Influenza Type A Ag NEGATIVE (NEGATIVE) Influenza Type B Ag NEGATIVE (NEGATIVE) RSV (PCR) NEGATIVE (NEGATIVE) SARS-CoV-2 (PCR) NEGATIVE (NEGATIVE) Group A Strep Antibody NOT DETECTED (NEGATIVE) - Progress Progress: unchanged Counseled pt/family regarding: lab results, diagnosis, need for follow-up Medical Desision Making - Diagnostic Testing Diagnostic test were ordered, analyzed, and reviewed by me: Yes - Departure Departure Disposition: Home Clinical Impression: UTI (urinary tract infection), Pharyngitis Condition: Stable Critical Care Time: No Referrals: MARQUISE HENDERSON DO [Primary Care Provider] - Follow up/PCP as directed Instructions: Urinary Tract Infection, Adult (DC) Additional Instructions: Follow up with private doctor tomorrow. Prescriptions: Cefpodoxime Proxetil 200 mg [Vantin 200 mg] 200 mg PO BID #20 tablet
[2023-06-30 12:45] LABS: Appearance Clear (Clear); Bacteria None Seen /HPF (None Seen); Bilirubin Negative (Negative); Blood Negative (Negative); Epithelial Cells None Seen /HPF (None Seen); Glucose, Urine Negative (Negative); Hyaline Casts NONE SEEN /LPF (0-2); Ketones Negative (Negative); Leukocyte Esterase Moderate (Negative); Nitrite Negative (Negative); Ph 6.5 (4.6-8.0); Protein,Urine Dip Negative (Negative); RBC 0-2 /HPF (0-5); Specific Gravity 1.015 (1.005-1.030); Urobilinogen 0.2 mg/dL (0.2)
[2023-06-30 12:55] LABS: ADD URINE CULTURE? YES (NO)
[2023-06-30 13:26] LABS: INFLUENZA A NEGATIVE (NEGATIVE); INFLUENZA B NEGATIVE (NEGATIVE); RESPIRATORY SYNCTIAL VIRUS NEGATIVE (NEGATIVE); SARS-CoV-2 Xpert Express NEGATIVE (NEGATIVE)
[2023-06-30 14:26] VITALS: BP 104/63
[2023-06-30 14:31] VITALS: O2SAT 97
[2023-06-30] MEDS ORDERED: Rocephin 1000 MG INJ ONE (14:33)
[2023-06-30] MEDS: Rocephin 1000 MG INJ IM ONE (14:37)
== END 2023-06-30 14:57 | disposition home or self-care (01) ==
LOC: ED 11:36
DX: N39.0 Urinary tract infection, site not specified (principal); J02.9 Acute pharyngitis, unspecified; R50.9 Fever, unspecified; H92.01 Otalgia, right ear; R30.0 Dysuria; E78.5 Hyperlipidemia, unspecified; Z79.01 Long term (current) use of anticoagulants; Z79.899 Other long term (current) drug therapy
CPT/HCPCS: 0241U; 81001; 87077; 87086; 87186; 87651; 96372; 99283; J0696

== ENCOUNTER 2023-07-05 03:58 | Emergency (ER) | payer MEDICARE ==
[2023-07-05 04:19] VITALS: TEMP 96.8
[2023-07-05 04:31] LABS: ADD URINE CULTURE? YES (NO); Appearance Cloudy (Clear); Bacteria None Seen /HPF (None Seen); Bilirubin Negative (Negative); Blood Trace (Negative); Epithelial Cells Few /HPF (None Seen); Glucose, Urine Negative (Negative); Ketones Negative (Negative); Leukocyte Esterase Small (Negative); Nitrite Negative (Negative); Ph 5.5 (4.6-8.0); Protein,Urine Dip Trace (Negative); WBC 21-50 /HPF (0-5)
--- NOTE | 2023-07-05 05:08 | ERPHSYRPT ---
- History of Present Illness Source: patient Exam Limitations: no limitations Patient Subjective Stated Complaint: pt reports UTI s/s since June 08, 2023. pt reports multiple ER visits with several antibiotics given, states she received an IM injection of Rocephin a course of Cipro and 6 days of Vantin with no relief in her symptoms, pt reports pressure and states she feels like she is not emptying her bladder. 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 Triage Nursing Assessment: pt is aox3, pupils perrl, afebrile, pt presents with home O2 in place at 3L per NC, resps easy non labored, pt ambulatory to cot with steady gait, pt radial pulses strong and equal, cap refill < 3 secs, pt abd soft, pt skin pink warm dry. Hx Tetanus, Diphtheria Vaccination/Date Given: Yes Hx Influenza Vaccination/Date Given: No Hx Pneumococcal Vaccination/Date Given: Yes <EVETTE MAR - Last Filed: 07/05/23 06:51> <PARK ROBERTS - Last Filed: 07/05/23 07:38> - History of Present Illness Time Seen by Provider: 07/05/23 04:45 Physician History: Pt states she has had multiple UTI's with lower abdominal pressure since last month recently taking 6 days of vantin and still has dysuria. Pt states her last BM was today & small without blood. Last fever was 6 days ago. Pt states she has had daily nausea & vomiting since 1997 and has Chronic Pseudo-obstruction. Pt states she is on home oxygen for her chronic bronchitis. Pt denies chest pain. Urine culture from 06/30/23 reveals E. coli sensitive to zosyn. U/A on 06/30/23 reveals 11-20 WBC and U/A from today 21-50 WBC. Pt also states she has had multiple abdominal surgeries in [address] Liang Suresh at [facility] where her entire colon and some of her small bowel were removed. Pt states she also had a hysterectomy in 2001 by another physician. (EVETTE MAR) Allergies/Adverse Reactions: sumatriptan [From Imitrex] Allergy (Intermediate, Verified 06/30/23 12:20) Rash codeine Allergy (Mild, Verified 06/30/23 12:20) Rash MAKES SICK nitrofurantoin [From Macrobid] Allergy (Unknown, Verified 06/30/23 12:20) sulfamethoxazole [From Bactrim] Allergy (Unknown, Verified 06/30/23 12:20) trimethoprim [From Bactrim] Allergy (Unknown, Verified 06/30/23 12:20) sumatriptan succinate [From Imitrex] Allergy (Verified 06/30/23 12:20) morphine Adverse Reaction (Severe, Verified 06/30/23 12:20) Headache MIGRAINES fentanyl Adverse Reaction (Intermediate, Verified 06/30/23 12:20) Headache hydrocodone bitartrate [From Vicodin] Adverse Reaction (Mild, Verified 06/30/23 12:20) Vomiting hydromorphone [From Dilaudid] Adverse Reaction (Mild, Verified 06/30/23 12:20) pt states makes headache worse. Home Medications: ALPRAZolam 1 MG [Xanax 1 mg] 1 mg PO TID 02/17/13 [History] Aspirin 81 mg PO DAILY 09/11/16 [History] Levothyroxine Sodium 50 Mcg [Synthroid 50 Mcg] 50 mcg PO DAILY 07/06/17 [History] Dexlansoprazole [Dexilant] 60 mg PO DAILY 01/21/20 [History] Albuterol 2.5 mg/3 ml Neb [Proventil 2.5 mg/3 ml Neb] 2.5 mg IH QID 07/23/20 [History] dilTIAZem HCl [Diltiazem 24Hr ER (Cd)] 120 mg PO DAILY 09/29/21 [History] Promethazine HCl 25 mg [Phenergan 25 mg] 25 mg PO BIDPRN PRN 01/18/22 [History] Apixaban [Eliquis] 5 mg PO BID 07/02/22 [History] Fluticasone/Umeclidin/Vilanter [Trelegy Ellipta 200-62.5-25] 1 each IH DAILY 07/02/22 [History] Cetirizine HCl [Zyrtec] 1 tab PO DAILY 11/08/22 [History] Magnesium Oxide 400 mg [Mag-Ox 400] 1 tab PO DAILY 11/08/22 [History] Sodium Bicarbonate 2 tab PO TID 11/08/22 [History] Omeprazole/Sodium Bicarbonate [Omeprazole-Bicarb 40-1,100 Cap] 1 each PO HS 11/28/22 [History] Atorvastatin Calcium [Lipitor 40Mg] 40 mg PO DAILY 03/09/23 [History] Rizatriptan Benzoate [Maxalt] 10 mg PO DAILY 05/05/23 [History] Tenapanor HCl [Ibsrela] 50 mg PO BID 05/05/23 [History] Ubrogepant [Ubrelvy] 100 mg PO DAILY PRN 05/05/23 [History] Travel Risk - International Travel Have you traveled outside of the country in past 3 weeks: No - Emerging Infectious Disease Are you exhibiting symptoms associated with any current EIDs: No <EVETTE MAR - Last Filed: 07/05/23 06:51> - Review of Systems Constitutional: Fever Cardiac: No Chest Pain Abdominal/Gastrointestinal: Abdominal Pain (pressure), Other (pelvic pressure) Genitourinary Symptoms: Dysuria <EVETTE MAR - Last Filed: 07/05/23 06:51> - Past Medical History Pertinent Past Medical History: Yes Neurological History: Migraines, TIA ENT History: Cataracts Cardiac History: High Cholesterol Respiratory History: Bronchitis, COPD, Pulmonary Embolism Endocrine Medical History: Hypothyroidism Musculoskeletal History: Osteoarthritis GI Medical History: GERD, Other History: Other Psycho-Social History: Anxiety, Depression, Panic Disorder Female Reproductive Disorders: No Pertinent History Other Medical History: frequent uti's, chronic pseudo obstruction, blood clot, partial bowel blockage - Past Surgical History Past Surgical History: Yes Neuro Surgical History: No Pertinent History Cardiac: No Pertinent History Respiratory: No Pertinent History Gastrointestinal: Cholecystectomy, Other Genitourinary: No Pertinent History Musculoskeletal: No Pertinent History Female Surgical History: Hysterectomy Other Surgical History: all of large intestine removed and most of small intestines removed, feeding tube in 2004 removed in 2007. Significant Family History: no pertinent family hx - Social History Smoking Status: Never smoker Exposure to second hand smoke: Yes Alcohol Use: None Drug Use: none Patient Lives Alone: Yes <EVETTE MAR - Last Filed: 07/05/23 06:51> - Physical Exam General Appearance: alert Eye Exam: eyes nml inspection Ears, Nose, Throat Exam: TMs normal, pharyngeal erythema Neck Exam: normal inspection Respiratory Exam: lungs clear Cardiovascular Exam: normal heart sounds Gastrointestinal/Abdomen Exam: normal bowel sounds Extremity Exam: No pedal edema Neurologic Exam: alert, cooperative Skin Exam: warm, dry SpO2 Interpretation: normal SpO2: 97 O2 Delivery: Nasal Cannula <EVETTE MAR - Filed: 07/05/23 06:51> - Nursing Vital Signs Nursing Vital Signs: Initial Vital Signs Temperature 96.8 F 07/05/23 04:02 Pulse Rate 88 07/05/23 04:02 Respiratory Rate 20 07/05/23 04:02 Blood Pressure 129/70 07/05/23 04:02 O2 Sat by Pulse Oximetry 97 07/05/23 04:02 Pain Scale Pain Intensity 9 - Course Nursing assessment & vital signs reviewed: Yes <EVETTE MAR - Filed: 07/05/23 06:51> Ordered Tests: Active Orders 24 hr Category Date Time Status IV Insertion STAT Care 07/05/23 05:14 Active ABDOMEN AND PELVIS W/0 CONTRAS [CT] Stat Exams 07/05/23 05:20 Completed AMYLASE Stat Lab 07/05/23 05:44 Completed CBC W DIFF Stat Lab 07/05/23 05:44 Completed CMP Stat Lab 07/05/23 05:44 Completed CULTURE,URINE Stat Lab 07/05/23 04:19 Received LIPASE Stat Lab 07/05/23 05:44 Completed UA W/RFX UR CULTURE Stat Lab 07/05/23 04:19 Completed Medication Summary Generic Name Dose Route Start Last Admin Trade Name Freq PRN Reason Stop Dose Admin Sodium Chloride 1,000 mls @ 100 mls/hr 07/05/23 05:15 07/05/23 05:28 Sodium Chloride 0.9% 1000 Ml IV 08/04/23 05:14 100 mls/hr .Q10H JENNIFER Administration Discontinued Medications Generic Name Dose Route Start Last Admin Trade Name Freq PRN Reason Stop Dose Admin Piperacillin Sod/Tazobactam 100 mls @ 200 mls/hr 07/05/23 05:19 07/05/23 05:28 Sod 3.375 gm/ Sodium Chloride IV 07/05/23 05:48 200 mls/hr STAT ONE Administration Sodium Chloride Confirm 07/05/23 05:22 Sodium Chloride 100ml Mini-Bag Plus Administered 07/05/23 05:23 Dose 100 mls @ ud IV .STK-MED ONE Piperacillin Sod/Tazobactam Sod Confirm 07/05/23 05:22 Piperacillin/Tazobactam Sodium 3.375 Gm Vial Administered 07/05/23 05:23 Dose 3.375 gm IV .STK-MED ONE Lab/Rad Data: Laboratory Result Diagrams 07/05/23 05:44 07/05/23 05:44 Laboratory Results 07/05/23 07/05/23 07/05/23 Range/Units 05:44 05:44 04:19 WBC 3.5 L (4.0-10.5) x10^3/uL RBC 4.10 (4.1-5.4) x10^6/uL Hgb 12.6 (12.0-16.0) g/dL Hct 37.6 (35-47) % MCV 91.7 (78-100) fL MCH 30.7 (26-32) pg MCHC 33.5 (32-36) g/dL RDW 12.4 (11.5-14.0) % Plt Count 169 (150-450) x10^3/uL MPV 10.5 (7.5-11.0) fL Gran % 63.0 (36.0-66.0) % Immature Gran % (Auto) 0.6 H (0.00-0.4) % Nucleat RBC Rel Count 0.0 (0.00-0.1) % Eos # (Auto) 0.06 (0-0.5) x10^3/uL Immature Gran # (Auto) 0.02 (0.00-0.03) x10^3u/L Absolute Lymphs (auto) 0.84 L (1.0-4.6) x10^3/uL Absolute Monos (auto) 0.36 (0.0-1.3) x10^3/uL Absolute Nucleated RBC 0.00 (0.00-0.01) x10^3u/L Lymphocytes % 23.7 L (24.0-44.0) % Monocytes % 10.2 (0.0-12.0) % Eosinophils % 1.7 (0.00-5.0) % Basophils % 0.8 (0.0-0.4) % Absolute Granulocytes 2.23 (1.4-6.9) x10^3/uL Basophils # 0.03 (0-0.4) x10^3/uL Sodium 141 (135-145) mmol/L Potassium 3.9 (3.5-5.1) mmol/L Chloride 111 H (98-107) mmol/L Carbon Dioxide 23 (22-30) mmol/L Anion Gap 12.1 (5-15) MEQ/L BUN 17 (7-17) mg/dL Creatinine 1.11 H (0.52-1.04) mg/dL Estimated GFR 54.1 ML/MIN Glucose 98 (74-106) mg/dL Calcium 8.6 (8.4-10.2) mg/dL Total Bilirubin 0.40 (0.2-1.3) mg/dL AST 21 (14-36) U/L ALT 16 (0-35) U/L Alkaline Phosphatase 87 (38-126) U/L Serum Total Protein 6.5 (6.3-8.2) g/dL Albumin 3.5 (3.5-5.0) g/dL Amylase 79 (30-110) U/L Lipase 108 (23-300) U/L Urine Color Yellow (Yellow) Urine Appearance Cloudy A (Clear) Urine pH 5.5 (4.6-8.0) Ur Specific [place] 1.020 (1.005-1.030) Urine Protein Trace A (Negative) Urine Glucose (UA) Negative (Negative) mg/dL Urine Ketones Negative (Negative) Urine Blood Trace (Negative) Urine Nitrite Negative (Negative) Urine Bilirubin Negative (Negative) Urine Urobilinogen 1.0 A (0.2) mg/dL Ur Leukocyte Esterase Small A (Negative) U Hyaline Cast (Auto) 3-5 A (0-2) /LPF Urine Microscopic RBC 3-5 (0-5) /HPF Urine Microscopic WBC 21-50 A (0-5) /HPF Ur Epithelial Cells Few (None Seen) /HPF Urine Bacteria None Seen (None Seen) /HPF Urine Culture Reflexed YES (NO) - Progress Antibiotics given: Yes Counseled pt/family regarding: lab results, diagnosis, need for follow-up, rad results <PARK ROBERTS - Last Filed: 07/05/23 07:38> - Progress Progress Note: 07/05/23 07:13 I am familiar with this patient. This patient frequents this emergency department often. This is her fourth visit to the emergency department and 16 days. She has chronic urinary tract infections. If the CT scan of the abdomen pelvis is negative for any acute, emergent process, patient will be discharged to home with a change of antibiotics. 07/05/23 07:34 I reviewed the urinalysis. This urinalysis was obtained approximately 5 days ago. It only showed 50,000-60,000 colony-forming units. However, despite Vantin use, the number of white cells in her urine has increased compared to last urinalysis. Therefore, after reviewing the culture and sensitivities, I will place this patient on Augmentin 500/125 orally twice a day for 5 days. She is to take this with food. CT scan of the abdomen and pelvis was interpreted by the radiologist. There is no evidence of any acute intrapelvic or intra abdominal abnormality. There is fecal loading in the rectosigmoid region. This is a chronic problem for her as is her chronic urinary tract infections. (PARK ROBERTS) Medical Desision Making - Diagnostic Testing Diagnostic test were ordered, analyzed, and reviewed by me: Yes Radiological Interpretation: Reviewed by me, Teleradiologist Report - Risk of complications The pt has a mod risk of morbidity or mortality based on: Need for prescription drug management <PARK ROBERTS - Last Filed: 07/05/23 07:38> - Departure Departure Disposition: Observation Critical Care Time: No <EVETTE MAR - Last Filed: 07/05/23 06:51> <PARK ROBERTS - Last Filed: 07/05/23 07:38> - Departure Clinical Impression: UTI (urinary tract infection), Abdominal/Pelvic pressure, Nausea & vomiting, Constipation Condition: Stable Referrals: MARQUISE HENDERSON DO [Primary Care Provider] - Follow up/PCP as directed Additional Instructions: Drink plenty of fluids. Increase your activity. If there are no contraindications, use [id number] MiraLAX, milk of magnesia and/or fleets enemas as instructed on the packaging to help relieve constipation. Call your primary care provider's office today, 07/05/2023, to make arrangements for a f ollow-up appointment to be seen in the next 5 to 7 days to discuss your chronic urinary tract infections and chronic constipation. Obtained from them, instructions and management for bowel hygiene. Stop your Vantin antibiotic and take your new antibiotics with food. Prescriptions: Amoxicillin/Potassium Clav [Augmentin 500-125 Tablet] 1 each PO BID 5 Days #10 tablet
[2023-07-05] MEDS ORDERED: PIPERACILLIN/TAZOBACTAM IV ONE (05:22)
[2023-07-05] MEDS ORDERED: Sodium Chloride 0.9% 1000 ML 1,000 ML ONE (05:22)
[2023-07-05] MEDS ORDERED: Sodium Chloride 100ML MINI-BAG PLUS 100 ML IV ONE (05:22)
[2023-07-05] MEDS: Sodium Chloride 0.9% 1000 ML 1,000 ML IV SCH (05:28)
[2023-07-05] MEDS: PIPERACILLIN/TAZOBACTAM 3.375 GM in Sodium Chloride 100ML MINI-BAG PLUS 100 ML IV ONE (05:28)
[2023-07-05 05:45] LABS: Absolute Neutrophil Ct (ANC) 2.23 x10^3/uL (1.4-6.9); BASOPHIL % 0.8 % (0.0-0.4); Basophil (Absolute #) 0.03 x10^3/uL (0-0.4); Eosinophil % 1.7 % (0.00-5.0); Eosinophil (Absolute #) 0.06 x10^3/uL (0-0.5); Hematocrit 37.6 % (35-47); Hemoglobin 12.6 g/dL (12.0-16.0); IMMATURE GRAN # 0.02 x10^3u/L (0.00-0.03); IMMATURE GRAN % 0.6 % (0.00-0.4); Lymphocyte (Absolute #) 0.84 x10^3/uL (1.0-4.6); Lymphocytes % 23.7 % (24.0-44.0); Mean Cell Volume 91.7 fL (78-100); Mean Corpuscular Hemoglobin 30.7 pg (26-32); Mean Corpuscular Hgb Concent. 33.5 g/dL (32-36); Mean Platelet Volume 10.5 fL (7.5-11.0); Monocyte (Absolute #) 0.36 x10^3/uL (0.0-1.3); Monocytes % 10.2 % (0.0-12.0); Platelet Count 169 x10^3/uL (150-450); Red Cell Distribution Width 12.4 % (11.5-14.0); White Blood Count 3.5 x10^3/uL (4.0-10.5)
[2023-07-05 05:59] LABS: ALBUMIN 3.5 g/dL (3.5-5.0); ANION GAP 12.1 MEQ/L (5-15); BILIRUBIN,TOTAL 0.4 mg/dL (0.2-1.3); Calcium 8.6 mg/dL (8.4-10.2); Creatinine 1 1.11 mg/dL (0.52-1.04); EST GLOMERULAR FILTRATION RATE 54.1 ML/MIN; Potassium 3.9 mmol/L (3.5-5.1); Total Protein 6.5 g/dL (6.3-8.2)
[2023-07-05 06:10] VITALS: BP 118/60; PULSE 77; RESP 20
[2023-07-05 06:38] VITALS: O2SAT 97
--- NOTE | 2023-07-05 07:24 | XRAY ---
CLINICAL HISTORY: pelvic pressure COMPARISON: 03/09/2023 TECHNIQUE: CT of the abdomen and pelvis was performed with axial images as well as sagittal and coronal reconstruction images without intravenous contrast. One of the following dose reduction techniques was utilized for this exam: Automated exposure control, adjustment of the mA and/or kV according to patient size, and use of iterative reconstruction. FINDINGS: Abdomen: Average-sized liver. No focal or diffuse parenchymal abnormality. The intrahepatic biliary radicals and the bile ducts are normal. The pancreas and adrenal glands are unremarkable. Few splenic parenchymatous calcifications; likely post-granulomatous. The kidneys are unremarkable. They are normal in size and shape. No calculi or hydronephrosis. The gallbladder is surgically removed. There is no evidence of significant enlargement of the mesenteric or retroperitoneal lymph nodes. Scanned lung bases show bilateral reticulo-nodular densities, left pleural thickening with subpleural reticulations along with multiple left pulmonary nodules. A small calcified posterior mediastinal lymph node is seen. Pelvis: The patient's movements degrade pelvic examination. Empty urinary bladder. Fecal loading in the rectosigmoid region. Non-visualized rest of the colon ( surgically removed) No evidence of pelvic lymphadenopathy. The osseous structures in the pelvis, lower rib cage, and lumbar spine show no abnormality(limited evaluation possible due to motion artifacts). No lytic or sclerotic bone lesions. IMPRESSION: 1. Limited evaluation of the pelvic region due to significant motion artifacts. 2. No acute abdominal or pelvic abnormality. 3. Fecal loading in the rectosigmoid region. 4. Stationary rest of the study. Electronically Signed by: Evelyne Razo MD. (07/05/2023 07:19:52 EDT)
== END 2023-07-05 07:58 | disposition home or self-care (01) ==
LOC: ED 03:58
DX: N39.0 Urinary tract infection, site not specified (principal); R10.9 Unspecified abdominal pain; R10.2 Pelvic and perineal pain; R11.2 Nausea with vomiting, unspecified; K59.00 Constipation, unspecified; E78.5 Hyperlipidemia, unspecified; Z79.01 Long term (current) use of anticoagulants; Z79.899 Other long term (current) drug therapy
CPT/HCPCS: 36000; 36415; 74176; 80053; 81001; 82150; 83690; 85025; 87086; 96365; 99284; J1642

== ENCOUNTER 2023-07-21 11:52 | Emergency (ER) | payer MEDICARE ==
[2023-07-21 12:19] VITALS: RESP 16; TEMP 96.6; O2SAT 96
[2023-07-21] MEDS ORDERED: BENADRYL 50 MG/ML ONE (13:01)
[2023-07-21] MEDS ORDERED: TYLENOL 325 MG ONE (13:02)
[2023-07-21] MEDS ORDERED: MORPHINE SULFATE 4 MG INJ ONE (13:02)
[2023-07-21] MEDS ORDERED: Compazine 10 MG/2 ML ONE (13:02)
[2023-07-21] MEDS: Compazine 10 MG/2 ML IV ONE (13:07)
[2023-07-21] MEDS: TYLENOL 325 MG PO ONE (13:07)
[2023-07-21] MEDS: MORPHINE SULFATE 4 MG INJ IV ONE (13:07)
[2023-07-21] MEDS: BENADRYL 50 MG/ML IV ONE (13:08)
--- NOTE | 2023-07-21 13:30 | XRAY ---
Indication: Headache. History migraines. Negative MRI brain November 30, 2022. Multiple contiguous axial images obtained through the head without contrast. Comparison: November 28, 2022 Normal appearing brain parenchyma, ventricles, and bony calvarium for patient's age. Visualized paranasal sinuses and mastoid air cells are clear. Impression: Continued normal CT head without contrast exam.
--- NOTE | 2023-07-21 14:20 | ERPHSYRPT ---
- History of Present Illness Time Seen by Provider: 07/21/23 12:00 Source: patient Exam Limitations: no limitations Patient Subjective Stated Complaint: C/O migraine headache that started around 8pm yesterday. Triage Nursing Assessment: Patient ambulated back to ER wearing sunglasses. She is alert and oriented. Patient wearing 02 @ 3L per N/C; this is normal for her. No cough. Skin tone normal; bruising noted to right wrist area. Light hurting patient's eyes even with sunglasses on so lights in room are dimmed. Physician History: 68 years old female with history of multiple medical problems including embolism on Eliquis, migraines presented in the ER with generalized headache all over since yesterday evening, moderate to severe sharp, with associated nausea and vomiting couple of times. Nonprojectile, nonbilious with no abdominal pain. No fever or chills reported. Denies any visual disturbance, pain in the neck or difficulty movements of neck. No fever or chills reported. No numbness tingling or focal weakness. Patient reports headache 10/10 intensity sharp throbbing and one of the worst headaches she has before. Aggravated with bright light and loud noise. Better with being in a dark quiet room. Allergies/Adverse Reactions: sumatriptan [From Imitrex] Allergy (Intermediate, Verified 07/21/23 12:07) Rash codeine Allergy (Mild, Verified 07/21/23 12:07) Rash MAKES SICK nitrofurantoin [From Macrobid] Allergy (Unknown, Verified 07/21/23 12:07) sulfamethoxazole [From Bactrim] Allergy (Unknown, Verified 07/21/23 12:07) trimethoprim [From Bactrim] Allergy (Unknown, Verified 07/21/23 12:07) sumatriptan succinate [From Imitrex] Allergy (Verified 07/21/23 12:07) morphine Adverse Reaction (Severe, Verified 07/21/23 12:07) Headache MIGRAINES fentanyl Adverse Reaction (Intermediate, Verified 07/21/23 12:07) Headache hydrocodone bitartrate [From Vicodin] Adverse Reaction (Mild, Verified 07/21/23 12:07) Vomiting hydromorphone [From Dilaudid] Adverse Reaction (Mild, Verified 07/21/23 12:07) pt states makes headache worse. Home Medications: ALPRAZolam 1 MG [Xanax 1 mg] 1 mg PO TID 02/17/13 [History] Aspirin 81 mg PO DAILY 09/11/16 [History] Levothyroxine Sodium 50 Mcg [Synthroid 50 Mcg] 50 mcg PO DAILY 07/06/17 [History] Dexlansoprazole [Dexilant] 60 mg PO DAILY 01/21/20 [History] Albuterol 2.5 mg/3 ml Neb [Proventil 2.5 mg/3 ml Neb] 2.5 mg IH QID 07/23/20 [History] dilTIAZem HCl [Diltiazem 24Hr ER (Cd)] 120 mg PO DAILY 09/29/21 [History] Promethazine HCl 25 mg [Phenergan 25 mg] 25 mg PO BIDPRN PRN 01/18/22 [History] Apixaban [Eliquis] 5 mg PO BID 07/02/22 [History] Fluticasone/Umeclidin/Vilanter [Trelegy Ellipta 200-62.5-25] 1 each IH DAILY 07/02/22 [History] Cetirizine HCl [Zyrtec] 1 tab PO DAILY 11/08/22 [History] Magnesium Oxide 400 mg [Mag-Ox 400] 1 tab PO DAILY 11/08/22 [History] Sodium Bicarbonate 2 tab PO TID 11/08/22 [History] Omeprazole/Sodium Bicarbonate [Omeprazole-Bicarb 40-1,100 Cap] 1 each PO HS 11/28/22 [History] Atorvastatin Calcium [Lipitor 40Mg] 40 mg PO DAILY 03/09/23 [History] Rizatriptan Benzoate [Maxalt] 10 mg PO DAILY 05/05/23 [History] Tenapanor HCl [Ibsrela] 50 mg PO BID 05/05/23 [History] Ubrogepant [Ubrelvy] 100 mg PO DAILY PRN 05/05/23 [History] Hx Tetanus, Diphtheria Vaccination/Date Given: Yes Hx Influenza Vaccination/Date Given: No Hx Pneumococcal Vaccination/Date Given: Yes Immunizations Up to Date: Yes Travel Risk - International Travel Have you traveled outside of the country in past 3 weeks: No - Emerging Infectious Disease Are you exhibiting symptoms associated with any current EIDs: No - Review of Systems Constitutional: No Symptoms Eyes: No Symptoms Ears, Nose, & Throat: No Symptoms Respiratory: No Symptoms Cardiac: No Symptoms Abdominal/Gastrointestinal: No Symptoms Genitourinary Symptoms: No Symptoms Musculoskeletal: Arthralgias Skin: No Symptoms Neurological: No Symptoms Endocrine: No Symptoms Hematologic/Lymphatic: No Symptoms - Past Medical History Pertinent Past Medical History: Yes Neurological History: Migraines, TIA ENT History: Cataracts Cardiac History: High Cholesterol Respiratory History: Bronchitis, COPD, Pulmonary Embolism Endocrine Medical History: Hypothyroidism Musculoskeletal History: Osteoarthritis GI Medical History: GERD, Gallbladder Disease, Other History: Other Psycho-Social History: Anxiety, Depression, Panic Disorder Female Reproductive Disorders: No Pertinent History Other Medical History: frequent uti's, chronic pseudo obstruction, blood clot, partial bowel blockage. States is seeing a new urologist from the [facility], a female MD but patient can't remember her name at this time. - Past Surgical History Past Surgical History: Yes Neuro Surgical History: No Pertinent History Cardiac: No Pertinent History Respiratory: No Pertinent History Gastrointestinal: Cholecystectomy, Other Genitourinary: No Pertinent History Musculoskeletal: No Pertinent History Female Surgical History: Hysterectomy Other Surgical History: all of large intestine removed and most of small intestines removed, feeding tube in 2004 removed in 2007. Significant Family History: no pertinent family hx - Social History Smoking Status: Never smoker Exposure to second hand smoke: Yes Alcohol Use: None Drug Use: none Patient Lives Alone: Yes - Social Determinants of Health Will the patient participate in the screening: Yes Do you worry about a steady place to live?: No Do you have any problems with any of the following?: No known problems In the past 12 months,have you had to go without utilities?: No Transportation Issues: No Has anyone in your support network made you feel unsafe?: No Have you or anyone in your house had to go without enough: No - Nursing Vital Signs Nursing Vital Signs: Initial Vital Signs Temperature 96.6 F 07/21/23 12:10 Pulse Rate 95 H 07/21/23 12:10 Respiratory Rate 16 07/21/23 12:10 Blood Pressure 124/72 07/21/23 12:10 O2 Sat by Pulse Oximetry 96 07/21/23 12:10 Pain Scale Pain Intensity 10 - Physical Exam General Appearance: no apparent distress, alert Eye Exam: PERRL/EOMI Ears, Nose, Throat Exam: normal ENT inspection Neck Exam: normal inspection, full range of motion Respiratory Exam: normal breath sounds, lungs clear Cardiovascular Exam: regular rate/rhythm, normal heart sounds Gastrointestinal/Abdominal Exam: soft, normal bowel sounds, No tenderness Extremity Exam: normal inspection, normal range of motion 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, 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, cooperative turning sander tender Exam: normal hearing, normal speech, PERRL Coordination/Gait Exam: normal finger to nose, normal cerebellar function Motor/Sensory Exam: no motor deficit, no sensory deficit, no pronator drift DTR Exam: bicep (R): 2+, bicep (L): 2+, knee (R): 2+, knee (L): 2+ Skin Exam: normal color SpO2 Interpretation: normal SpO2: 96 O2 Delivery: Room Air Ordered Tests: Active Orders 24 hr Category Date Time Status HEAD WITHOUT CONTRAST [CT] Stat Exams 07/21/23 12:26 Completed Medication Summary Discontinued Medications Generic Name Dose Route Start Last Admin Trade Name Elton PRN Reason Stop Dose Admin Acetaminophen 975 mg 07/21/23 12:26 07/21/23 13:07 Acetaminophen 325 Mg Tablet PO 07/21/23 12:27 975 mg STAT ONE Administration Acetaminophen Confirm 07/21/23 13:02 Acetaminophen 325 Mg Tablet Administered 07/21/23 13:03 Dose 975 mg .ROUTE .STK-MED ONE Diphenhydramine HCl 25 mg 07/21/23 12:26 07/21/23 13:08 Diphenhydramine Hcl 50 Mg/Ml Vial IV 07/21/23 12:27 25 mg STAT ONE Administration Diphenhydramine HCl Confirm 07/21/23 13:01 Diphenhydramine Hcl 50 Mg/Ml Vial Administered 07/21/23 13:02 Dose 50 mg .ROUTE .STK-MED ONE Morphine Sulfate 4 mg 07/21/23 12:26 07/21/23 13:07 Morphine Sulfate 4 Mg/Ml Injection IV 07/21/23 12:27 4 mg STAT ONE Administration Morphine Sulfate Confirm 07/21/23 13:02 Morphine Sulfate 4 Mg/Ml Injection Administered 07/21/23 13:03 Dose 4 mg .ROUTE .STK-MED ONE Prochlorperazine Edisylate 5 mg 07/21/23 12:26 07/21/23 13:07 Prochlorperazine Edisylate 10 Mg/2 Ml Vial IV 07/21/23 12:27 5 mg STAT ONE Administration Prochlorperazine Edisylate Confirm 07/21/23 13:02 Prochlorperazine Edisylate 10 Mg/2 Ml Vial Administered 07/21/23 13:03 Dose 10 mg .ROUTE .STK-MED ONE - Progress Progress: improved, re-examined Air Movement: good Progress Note: 07/21/23 14:17 68 years old on Eliquis is evaluated for generalized headache. Nonfocal neuroexam. No signs of meningismus. Hemodynamically stable. Given morphine, Compazine along with Benadryl and Tylenol, on reevaluation her headache is resolved. Obtained CT head because of her being on Eliquis and one of the severe/worst headache which is negative. She is being discharged with outpatient follow-up. Discussed signs symptoms of worsening needing return to ER which she seems understanding. Blood Culture(s) Obtained: No Antibiotics given: No Counseled pt/family regarding: diagnosis, need for follow-up, rad results Medical Desision Making - Diagnostic Testing Diagnostic test were ordered, analyzed, and reviewed by me: Yes Radiological Interpretation: Reviewed by me - Risk of complications The pt has a mod risk of morbidity or mortality based on: Need for prescription drug management - Departure Departure Disposition: Home Clinical Impression: Migraine Condition: Stable Critical Care Time: No Referrals: MARQUISE HENDERSON DO [Primary Care Provider] - Follow up with PCP 1 day Instructions: Headache, Adult (DC) Additional Instructions: Take Tylenol as needed. Follow-up with your primary care for reevaluation and may need referral for neurology for further evaluation. Return to ER for intractable headache, numbness tingling or focal weakness, difficulty movements of neck, fever chills etc.
[2023-07-21 14:28] VITALS: BP 105/68; PULSE 88
== END 2023-07-21 14:28 | disposition home or self-care (01) ==
LOC: ED 11:52
DX: G43.909 Migraine, unspecified, not intractable, without status migrainosus (principal); R11.2 Nausea with vomiting, unspecified; E78.5 Hyperlipidemia, unspecified; Z79.01 Long term (current) use of anticoagulants; Z79.899 Other long term (current) drug therapy
CPT/HCPCS: 70450; 96374; 96375; 99283; J1200; J2270; A9270-GY

== ENCOUNTER 2023-07-23 02:39 | Emergency (ER) | payer MEDICARE ==
[2023-07-23] MEDS ORDERED: TYLENOL EXTRA STRENGTH 500 MG ONE (03:04)
[2023-07-23] MEDS ORDERED: ZOFRAN ODT 4 MG ONE (03:04)
[2023-07-23 03:05] VITALS: RESP 14; TEMP 97.1
[2023-07-23] MEDS: ZOFRAN ODT 4 MG PO ONE (03:06)
[2023-07-23 03:17] LABS: Absolute Neutrophil Ct (ANC) 4.29 x10^3/uL (1.56-6.13); BASOPHIL % 0.9 % (0.1-1.2); Basophil (Absolute #) 0.06 x10^3/uL (0.01-0.08); Eosinophil % 1.2 % (0.7-5.8); Eosinophil (Absolute #) 0.08 x10^3/uL (0.04-0.36); Hematocrit 40.9 % (34.1-44.9); Hemoglobin 13.8 g/dL (11.2-15.7); IMMATURE GRAN # 0.03 x10^3u/L (0.001-0.031); IMMATURE GRAN % 0.5 % (0.001-0.429); Lymphocyte (Absolute #) 1.55 x10^3/uL (1.18-3.74); Lymphocytes % 23.7 % (19.3-51.7); Mean Cell Volume 90.1 fL (79.4-94.8); Mean Corpuscular Hemoglobin 30.4 pg (25.6-32.2); Mean Corpuscular Hgb Concent. 33.7 g/dL (32.2-35.5); Mean Platelet Volume 10.2 fL (9.4-12.3); Monocyte (Absolute #) 0.53 x10^3/uL (0.24-0.86); Monocytes % 8.1 % (4.7-12.5); Neutrophil % 65.6 % (34.0-71.1); Platelet Count 199 x10^3/uL (182-369); Red Blood Count 4.54 x10^6/uL (3.93-5.22); Red Cell Distribution Width 12.8 % (11.7-14.4); White Blood Count 6.5 x10^3/uL (3.98-10.04)
[2023-07-23 03:46] LABS: ALBUMIN 4.4 g/dL (3.5-5.0); ANION GAP 14.2 MEQ/L (5-15); BILIRUBIN,TOTAL 0.9 mg/dL (0.2-1.3); Calcium 9.6 mg/dL (8.4-10.2); Creatinine 1 1.38 mg/dL (0.52-1.04); EST GLOMERULAR FILTRATION RATE 41.7 ML/MIN; Potassium 3.7 mmol/L (3.5-5.1); Total Protein 7.7 g/dL (6.3-8.2)
[2023-07-23] MEDS: TYLENOL EXTRA STRENGTH 500 MG PO STA (04:09)
[2023-07-23 04:21] VITALS: BP 137/79; PULSE 95; O2SAT 96
--- NOTE | 2023-07-23 04:54 | XRAY ---
CLINICAL HISTORY: constipation COMPARISON: To 07-05-2023 TECHNIQUE: CT of the abdomen and pelvis was performed with axial images as well as sagittal and coronal reconstruction images without intravenous contrast. Thick cus only provided. One of the following dose reduction techniques was utilized for this exam.Automated exposure control, adjustment of the mA and/or kV according to patient size, and use of iterative reconstruction. FINDINGS: Lack of injected contrast and thick cuts images limit the study assessment. There are linear hyper densities/surgical lena related to pelvic likely entero-colic anastomosis possibly related to prior intervention with no sufficient operative details provided. Currently noted diffuse dilatation and fluid dissension of the distal bowel loops down to this site. No rectosigmoid masses could be identified. Average-sized liver. No focal or diffuse parenchymal abnormality. The intrahepatic biliary radicals and the bile ducts are normal. The pancreas, gall bladder, spleen and adrenal glands are unremarkable. The kidneys are unremarkable. Right renal lower pole small isodense cyst is seen measures 14mm. No calculi or hydronephrosis. There is no evidence of significant enlargement of the mesenteric or retroperitoneal lymph nodes. Scanned lung bases show bilateral reticulo-nodular densities, left pleural thickening with subpleural reticulations along with multiple left pulmonary nodules. A small calcified posterior mediastinal lymph node is seen. Empty urinary bladder. Non-visualized rest of the colon ( surgically removed). Hysterectomy with multiple pelvic phleboli and clear stump. No evidence of pelvic lymphadenopathy. The osseous structures in the pelvis, lower rib cage, and lumbar spine show no abnormality( limited evaluation possible due to motion artifacts). No lytic or sclerotic bone lesions. No inflammatory changes or collections related to right iliac fossa with grossly unremarkable appendix IMPRESSION: 1. Limited evaluation of the study due to lack of contrast and thick-cut images. 2. Pelvic surgical elna possibly related to prior colonic intervention with currently seen diffuse dilatation and fluid dissension of the distal bowel loops down to this site. Clinical correlation and follow-up by contrast enhanced CT study is advised to rule out small bowel obstruction. A new finding. 3. Stationary rest of the study. [facility] ER was called at [phone] at 4:32 AM EST, 07/23/2023 and Amelia was informed regarding Significant Medical Findings. She confirmed that she would inform the Physician. Electronically Signed by: Evelyne Razo MD. (07/23/2023 04:49:18 EDT)
--- NOTE | 2023-07-23 05:18 | ERPHSYRPT ---
- History of Present Illness Time Seen by Provider: 07/23/23 03:00 Historian: patient Exam Limitations: no limitations Patient Subjective Stated Complaint: pt states she has not had a bowel movement since wednesday Triage Nursing Assessment: pt ambulated into the er; pt is axo x3; c/o constipation; pt states 10/ pain to abd; c/o N/V; abd round, distended, non- tender; active bowels sounds in all quads; skin PDW; no respiratory distress present; Physician History: 68 years old female with multiple medical problems including chronic abdominal pain/constipation presented to the ER with abdominal distention and not having bowel movement for the last 4 days despite taking stool softeners. Patient denies any nausea or vomiting. Does have history of multiple intestinal obstructions in the past. Has positive flatus. Moderate intensity dull cramping with no significant aggravating or relieving factors and involves all over the abdomen. No fever or chills reported. Allergies/Adverse Reactions: sumatriptan [From Imitrex] Allergy (Intermediate, Verified 07/23/23 02:47) Rash codeine Allergy (Mild, Verified 07/23/23 02:47) Rash MAKES SICK nitrofurantoin [From Macrobid] Allergy (Unknown, Verified 07/23/23 02:47) sulfamethoxazole [From Bactrim] Allergy (Unknown, Verified 07/23/23 02:47) trimethoprim [From Bactrim] Allergy (Unknown, Verified 07/23/23 02:47) sumatriptan succinate [From Imitrex] Allergy (Verified 07/23/23 02:47) morphine Adverse Reaction (Severe, Verified 07/23/23 02:47) Headache MIGRAINES fentanyl Adverse Reaction (Intermediate, Verified 07/23/23 02:47) Headache hydrocodone bitartrate [From Vicodin] Adverse Reaction (Mild, Verified 07/23/23 02:47) Vomiting hydromorphone [From Dilaudid] Adverse Reaction (Mild, Verified 07/23/23 02:47) pt states makes headache worse. Home Medications: ALPRAZolam 1 MG [Xanax 1 mg] 1 mg PO TID 02/17/13 [History] Aspirin 81 mg PO DAILY 09/11/16 [History] Levothyroxine Sodium 50 Mcg [Synthroid 50 Mcg] 50 mcg PO DAILY 07/06/17 [History] Dexlansoprazole [Dexilant] 60 mg PO DAILY 01/21/20 [History] Albuterol 2.5 mg/3 ml Neb [Proventil 2.5 mg/3 ml Neb] 2.5 mg IH QID 07/23/20 [History] dilTIAZem HCl [Diltiazem 24Hr ER (Cd)] 120 mg PO DAILY 09/29/21 [History] Promethazine HCl 25 mg [Phenergan 25 mg] 25 mg PO BIDPRN PRN 01/18/22 [History] Apixaban [Eliquis] 5 mg PO BID 07/02/22 [History] Fluticasone/Umeclidin/Vilanter [Trelegy Ellipta 200-62.5-25] 1 each IH DAILY 07/02/22 [History] Cetirizine HCl [Zyrtec] 1 tab PO DAILY 11/08/22 [History] Magnesium Oxide 400 mg [Mag-Ox 400] 1 tab PO DAILY 11/08/22 [History] Sodium Bicarbonate 2 tab PO TID 11/08/22 [History] Omeprazole/Sodium Bicarbonate [Omeprazole-Bicarb 40-1,100 Cap] 1 each PO HS 11/28/22 [History] Atorvastatin Calcium [Lipitor 40Mg] 40 mg PO DAILY 03/09/23 [History] Rizatriptan Benzoate [Maxalt] 10 mg PO DAILY 05/05/23 [History] Tenapanor HCl [Ibsrela] 50 mg PO BID 05/05/23 [History] Ubrogepant [Ubrelvy] 100 mg PO DAILY PRN 05/05/23 [History] Hx Tetanus, Diphtheria Vaccination/Date Given: Yes Hx Influenza Vaccination/Date Given: No Hx Pneumococcal Vaccination/Date Given: Yes Travel Risk - International Travel Have you traveled outside of the country in past 3 weeks: No - Emerging Infectious Disease Are you exhibiting symptoms associated with any current EIDs: No - Review of Systems Constitutional: No Symptoms Eyes: No Symptoms Ears, Nose, & Throat: No Symptoms Respiratory: Dyspnea Cardiac: No Symptoms Abdominal/Gastrointestinal: Abdominal Pain, Constipation Genitourinary Symptoms: No Symptoms Musculoskeletal: Arthralgias Skin: No Symptoms Neurological: No Symptoms Endocrine: No Symptoms Hematologic/Lymphatic: No Symptoms - Past Medical History Pertinent Past Medical History: Yes Neurological History: Migraines, TIA ENT History: Cataracts Cardiac History: High Cholesterol Respiratory History: Bronchitis, COPD, Pulmonary Embolism Endocrine Medical History: Hypothyroidism Musculoskeletal History: Osteoarthritis GI Medical History: GERD, Gallbladder Disease, Other History: Other Psycho-Social History: Anxiety, Depression, Panic Disorder Female Reproductive Disorders: No Pertinent History Other Medical History: frequent uti's, chronic pseudo obstruction, blood clot, partial bowel blockage. States is seeing a new urologist from the [facility], a female MD but patient can't remember her name at this time. - Past Surgical History Past Surgical History: Yes Neuro Surgical History: No Pertinent History Cardiac: No Pertinent History Respiratory: No Pertinent History Gastrointestinal: Cholecystectomy, Other Genitourinary: No Pertinent History Musculoskeletal: No Pertinent History Female Surgical History: Hysterectomy Other Surgical History: all of large intestine removed and most of small intestines removed, feeding tube in 2004 removed in 2007. Significant Family History: no pertinent family hx - Social History Smoking Status: Never smoker Exposure to second hand smoke: Yes Alcohol Use: None Drug Use: none Patient Lives Alone: Yes - Social Determinants of Health Will the patient participate in the screening: Yes Do you worry about a steady place to live?: No Do you have any problems with any of the following?: No known problems In the past 12 months,have you had to go without utilities?: No Transportation Issues: No Has anyone in your support network made you feel unsafe?: No Have you or anyone in your house had to go without enough: No - Nursing Vital Signs Nursing Vital Signs: Initial Vital Signs Temperature 97.1 F 07/23/23 02:49 Pulse Rate 100 H 07/23/23 02:49 Respiratory Rate 14 07/23/23 02:49 Blood Pressure 137/81 07/23/23 02:49 O2 Sat by Pulse Oximetry 95 07/23/23 02:49 Pain Scale Pain Intensity 8 - Physical Exam General Appearance: no apparent distress, alert Eye Exam: PERRL/EOMI Ears, Nose, Throat Exam: pharynx normal Neck Exam: normal inspection, full range of motion Respiratory Exam: normal breath sounds, lungs clear Cardiovascular Exam: regular rate/rhythm, normal heart sounds Gastrointestinal/Abdomen Exam: soft, normal bowel sounds, tenderness (Mild generalized tenderness), No guarding Extremity Exam: normal range of motion Neurologic Exam: alert, 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, cooperative Skin Exam: normal color SpO2 Interpretation: O2 applied SpO2: 96 O2 Delivery: Nasal Cannula Ordered Tests: Active Orders 24 hr Category Date Time Status ABDOMEN AND PELVIS W/0 CONTRAS [CT] Stat Exams 07/23/23 03:25 Completed CBC W DIFF Stat Lab 07/23/23 03:15 Completed CMP Stat Lab 07/23/23 03:15 Completed LIPASE Stat Lab 07/23/23 03:15 Completed UA W/RFX UR CULTURE Stat Lab 07/23/23 04:00 Ordered Medication Summary Discontinued Medications Generic Name Dose Route Start Last Admin Trade Name Freq PRN Reason Stop Dose Admin Acetaminophen 1,000 mg 07/23/23 02:58 07/23/23 04:09 Acetaminophen 500 Mg Tablet PO 07/23/23 02:59 Not Given STAT STA Acetaminophen Confirm 07/23/23 03:04 Acetaminophen 500 Mg Tablet Administered 07/23/23 03:05 Dose 1,000 mg .ROUTE .STK-MED ONE Ondansetron HCl 4 mg 07/23/23 03:03 07/23/23 03:06 Zofran 4 Mg/Udtablet Orally Disintegrating PO 07/23/23 03:04 4 mg STAT ONE Administration Ondansetron HCl Confirm 07/23/23 03:04 Zofran 4 Mg/Udtablet Orally Disintegrating Administered 07/23/23 03:05 Dose 4 mg .ROUTE .STK-MED ONE Lab/Rad Data: Laboratory Result Diagrams 07/23/23 03:15 07/23/23 03:15 Laboratory Results 07/23/23 07/23/23 Range/Units 03:15 03:15 WBC 6.5 (3.98-10.04) x10^3/uL RBC 4.54 (3.93-5.22) x10^6/uL Hgb 13.8 (11.2-15.7) g/dL Hct 40.9 (34.1-44.9) % MCV 90.1 (79.4-94.8) fL MCH 30.4 (25.6-32.2) pg MCHC 33.7 (32.2-35.5) g/dL RDW 12.8 (11.7-14.4) % Plt Count 199 (182-369) x10^3/uL MPV 10.2 (9.4-12.3) fL Gran % 65.6 (34.0-71.1) % Immature Gran % (Auto) 0.5 H (0.001-0.429) % Nucleat RBC Rel Count 0.0 (0.00-0.2) % Eos # (Auto) 0.08 (0.04-0.36) x10^3/uL Immature Gran # (Auto) 0.03 (0.001-0.031) x10^3u/L Absolute Lymphs (auto) 1.55 (1.18-3.74) x10^3/uL Absolute Monos (auto) 0.53 (0.24-0.86) x10^3/uL Absolute Nucleated RBC 0.00 (0.00-0.012) x10^3u/L Lymphocytes % 23.7 (19.3-51.7) % Monocytes % 8.1 (4.7-12.5) % Eosinophils % 1.2 (0.7-5.8) % Basophils % 0.9 (0.1-1.2) % Absolute Granulocytes 4.29 (1.56-6.13) x10^3/uL Basophils # 0.06 (0.01-0.08) x10^3/uL Sodium 140 (135-145) mmol/L Potassium 3.7 (3.5-5.1) mmol/L Chloride 107 (98-107) mmol/L Carbon Dioxide 22 (22-30) mmol/L Anion Gap 14.2 (5-15) MEQ/L BUN 21 H (7-17) mg/dL Creatinine 1.38 H (0.52-1.04) mg/dL Estimated GFR 41.7 ML/MIN Glucose 126 H (74-106) mg/dL Calcium 9.6 (8.4-10.2) mg/dL Total Bilirubin 0.90 (0.2-1.3) mg/dL AST 24 (14-36) U/L ALT 20 (0-35) U/L Alkaline Phosphatase 116 (38-126) U/L Serum Total Protein 7.7 (6.3-8.2) g/dL Albumin 4.4 (3.5-5.0) g/dL Lipase 128 (23-300) U/L - Progress Progress: improved Progress Note: 07/23/23 05:15 68-year-old is evaluated for abdominal pain with constipation. She is given Tylenol for symptomatic relief. Workup showed normal white count, CKD with creatinine fairly around baseline and no other acute electrolyte abnormalities. Obtained CT abdomen pelvis without contrast which showed some element of consti pation with air-fluid level with dilatation proximal to enterocolonic anastomosis. Patient does have positive bowel sounds. I do not think patient has intestinal obstruction but more of a constipation. She is advised to have continuing with regular MiraLAX/stool softener and outpatient follow-up. Discussed signs symptoms of worsening needing return to ER which she seems understanding. Stable for discharge. Counseled pt/family regarding: lab results, diagnosis, need for follow-up, rad results Medical Desision Making - Diagnostic Testing Diagnostic test were ordered, analyzed, and reviewed by me: Yes Radiological Interpretation: Reviewed by me, Teleradiologist Report - Risk of complications The pt has a mod risk of morbidity or mortality based on: Need for prescription drug management - Departure Departure Disposition: Home Clinical Impression: Constipation, Abdominal pain Condition: Stable Critical Care Time: No Referrals: MARQUISE HENDERSON DO [Primary Care Provider] - Follow up with PCP 1 day Instructions: Constipation, Adult (DC), Abdominal Pain, Adult ED Additional Instructions: Take Tylenol as needed. Take daily MiraLAX/stool softeners. Return to ER for intractable abdominal pain/vomiting, not having bowel movement despite above measures etc.
== END 2023-07-23 05:10 | disposition home or self-care (01) ==
LOC: ED 02:39
DX: K59.00 Constipation, unspecified (principal); R10.9 Unspecified abdominal pain; E78.5 Hyperlipidemia, unspecified; Z79.01 Long term (current) use of anticoagulants; Z79.899 Other long term (current) drug therapy
CPT/HCPCS: 36415; 74176; 80053; 83690; 85025; 99283; Q0162; A9270-GY

== ENCOUNTER 2023-08-12 11:37 | Emergency (ER) | payer MEDICARE ==
[2023-08-12 12:01] VITALS: PULSE 96; RESP 18; TEMP 97.7; O2SAT 97
[2023-08-12 12:08] VITALS: BP 118/84
[2023-08-12 12:58] LABS: Appearance Turbid (Clear); Bilirubin Negative (Negative); Blood Negative (Negative); Glucose, Urine Negative (Negative); Hyaline Casts NONE SEEN /LPF (0-2); Ketones Negative (Negative); Leukocyte Esterase Moderate (Negative); Nitrite Positive (Negative); Ph 5.5 (4.6-8.0); Protein,Urine Dip Negative (Negative)
[2023-08-12 12:59] LABS: ADD URINE CULTURE? YES (NO); Bacteria Rare /HPF (None Seen); Epithelial Cells Few /HPF (None Seen)
[2023-08-12] MEDS ORDERED: Rocephin 1000 MG INJ ONE (13:12)
[2023-08-12] MEDS ORDERED: XYLOCAINE 1% HCL 20 ML MDV ONE (13:12)
[2023-08-12] MEDS: Rocephin 1000 MG INJ IM ONE (13:15)
--- NOTE | 2023-08-12 13:40 | ERPHSYRPT ---
- History of Present Illness Time Seen by Provider: 08/12/23 11:48 Source: patient Exam Limitations: no limitations Patient Subjective Stated Complaint: C/O UTI Triage Nursing Assessment: Patient ambulated back to ER. She is alert and oriented. No new c/o pain; patient indicates she always has low back and pelvic pain. Skin tone normal. Physician History: 68 years old female with multiple medical problems including recurrent UTI presented in the ER with increased dysuria, burning with frequency of urine. No hematuria. No flank pain. No fever chills nausea or vomiting. No abdominal pain. Reports having similar symptoms in the past with UTI. Allergies/Adverse Reactions: sumatriptan [From Imitrex] Allergy (Intermediate, Verified 08/12/23 11:51) Rash codeine Allergy (Mild, Verified 08/12/23 11:51) Rash MAKES SICK nitrofurantoin [From Macrobid] Allergy (Unknown, Verified 08/12/23 11:51) sulfamethoxazole [From Bactrim] Allergy (Unknown, Verified 08/12/23 11:51) trimethoprim [From Bactrim] Allergy (Unknown, Verified 08/12/23 11:51) sumatriptan succinate [From Imitrex] Allergy (Verified 08/12/23 11:51) morphine Adverse Reaction (Severe, Verified 08/12/23 11:51) Headache MIGRAINES fentanyl Adverse Reaction (Intermediate, Verified 08/12/23 11:51) Headache hydrocodone bitartrate [From Vicodin] Adverse Reaction (Mild, Verified 08/12/23 11:51) Vomiting hydromorphone [From Dilaudid] Adverse Reaction (Mild, Verified 08/12/23 11:51) pt states makes headache worse. Home Medications: ALPRAZolam 1 MG [Xanax 1 mg] 1 mg PO TID 02/17/13 [History] Aspirin 81 mg PO DAILY 09/11/16 [History] Levothyroxine Sodium 50 Mcg [Synthroid 50 Mcg] 50 mcg PO DAILY 07/06/17 [History] Dexlansoprazole [Dexilant] 60 mg PO DAILY 01/21/20 [History] Albuterol 2.5 mg/3 ml Neb [Proventil 2.5 mg/3 ml Neb] 2.5 mg IH QID 07/23/20 [History] dilTIAZem HCl [Diltiazem 24Hr ER (Cd)] 120 mg PO DAILY 09/29/21 [History] Promethazine HCl 25 mg [Phenergan 25 mg] 25 mg PO BIDPRN PRN 01/18/22 [History] Apixaban [Eliquis] 5 mg PO BID 07/02/22 [History] Fluticasone/Umeclidin/Vilanter [Trelegy Ellipta 200-62.5-25] 1 each IH DAILY 07/02/22 [History] Cetirizine HCl [Zyrtec] 1 tab PO DAILY 11/08/22 [History] Magnesium Oxide 400 mg [Mag-Ox 400] 1 tab PO DAILY 11/08/22 [History] Sodium Bicarbonate 2 tab PO TID 11/08/22 [History] Omeprazole/Sodium Bicarbonate [Omeprazole-Bicarb 40-1,100 Cap] 1 each PO HS 11/28/22 [History] Atorvastatin Calcium [Lipitor 40Mg] 40 mg PO DAILY 03/09/23 [History] Rizatriptan Benzoate [Maxalt] 10 mg PO DAILY 05/05/23 [History] Tenapanor HCl [Ibsrela] 50 mg PO BID 05/05/23 [History] Ubrogepant [Ubrelvy] 100 mg PO DAILY PRN 05/05/23 [History] Hx Tetanus, Diphtheria Vaccination/Date Given: Yes Hx Influenza Vaccination/Date Given: No Hx Pneumococcal Vaccination/Date Given: Yes Travel Risk - International Travel Have you traveled outside of the country in past 3 weeks: No - Emerging Infectious Disease Are you exhibiting symptoms associated with any current EIDs: No - Review of Systems Constitutional: No Symptoms Ears, Nose, & Throat: No Symptoms Respiratory: Dyspnea (Chronic) Cardiac: No Symptoms Abdominal/Gastrointestinal: No Symptoms Genitourinary Symptoms: Dysuria, Frequency Musculoskeletal: Arthralgias Neurological: No Symptoms - Past Medical History Pertinent Past Medical History: Yes Neurological History: Migraines, TIA ENT History: Cataracts Cardiac History: High Cholesterol Respiratory History: Bronchitis, COPD, Pulmonary Embolism Endocrine Medical History: Hypothyroidism Musculoskeletal History: Osteoarthritis GI Medical History: GERD, Gallbladder Disease, Other History: Other Psycho-Social History: Anxiety, Depression, Panic Disorder Female Reproductive Disorders: No Pertinent History Other Medical History: frequent uti's, chronic pseudo obstruction, blood clot, partial bowel blockage. - Past Surgical History Past Surgical History: Yes Neuro Surgical History: No Pertinent History Cardiac: No Pertinent History Respiratory: No Pertinent History Gastrointestinal: Cholecystectomy, Other Genitourinary: No Pertinent History Musculoskeletal: No Pertinent History Female Surgical History: Hysterectomy Other Surgical History: all of large intestine removed and most of small intestines removed, feeding tube in 2004 removed in 2007. Significant Family History: no pertinent family hx - Social History Smoking Status: Never smoker Exposure to second hand smoke: Yes Alcohol Use: None Drug Use: none Patient Lives Alone: Yes - Social Determinants of Health Will the patient participate in the screening: Yes Do you worry about a steady place to live?: No Do you have any problems with any of the following?: No known problems In the past 12 months,have you had to go without utilities?: No Transportation Issues: No Has anyone in your support network made you feel unsafe?: No Have you or anyone in your house had to go without enough: No - Nursing Vital Signs Nursing Vital Signs: Initial Vital Signs Temperature 97.7 F 08/12/23 11:37 Pulse Rate 96 H 08/12/23 11:37 Respiratory Rate 18 08/12/23 11:37 Blood Pressure 117/83 08/12/23 11:37 O2 Sat by Pulse Oximetry 97 08/12/23 11:37 Pain Scale Pain Intensity 10 - Physical Exam General Appearance: no apparent distress Neck Exam: normal inspection, full range of motion Respiratory Exam: wheezing, No accessory muscle use Cardiovascular Exam: regular rate/rhythm, normal heart sounds Gastrointestinal/Abdomen Exam: soft, normal bowel sounds, No tenderness Back Exam: No CVA tenderness Extremity Exam: normal inspection, normal range of motion Neurologic Exam: alert, 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, cooperative Skin Exam: normal color SpO2 Interpretation: normal SpO2: 97 O2 Delivery: Room Air Ordered Tests: Active Orders 24 hr Category Date Time Status CULTURE,URINE Stat Lab 08/12/23 11:49 Received UA W/RFX UR CULTURE Stat Lab 08/12/23 11:49 Completed Medication Summary Discontinued Medications Generic Name Dose Route Start Last Admin Trade Name Freq PRN Reason Stop Dose Admin Ceftriaxone Sodium 1,000 mg 08/12/23 13:08 08/12/23 13:15 Ceftriaxone Sodium 1000 Mg Inj Vial IM 08/12/23 13:09 1,000 mg STAT ONE Administration Ceftriaxone Sodium Confirm 08/12/23 13:12 Ceftriaxone Sodium 1000 Mg Inj Vial Administered 08/12/23 13:13 Dose 1,000 mg .ROUTE .STK-MED ONE Lidocaine HCl Confirm 08/12/23 13:12 Lidocaine Hcl 1% 20 Ml Mdv 20 Ml Ml Administered 08/12/23 13:13 Dose 3 ml .ROUTE .STK-MED ONE Lab/Rad Data: Laboratory Results 08/12/23 Range/Units 11:49 Urine Color Dark Yellow A (Yellow) Urine Appearance Turbid A (Clear) Urine pH 5.5 (4.6-8.0) Ur Specific [place] 1.020 (1.005-1.030) Urine Protein Negative (Negative) Urine Glucose (UA) Negative (Negative) mg/dL Urine Ketones Negative (Negative) Urine Blood Negative (Negative) Urine Nitrite Positive A (Negative) Urine Bilirubin Negative (Negative) Urine Urobilinogen 1.0 A (0.2) mg/dL Ur Leukocyte Esterase Moderate A (Negative) U Hyaline Cast (Auto) NONE SEEN (0-2) /LPF Urine Microscopic RBC 3-5 (0-5) /HPF Urine Microscopic WBC 3-5 (0-5) /HPF Ur Epithelial Cells Few (None Seen) /HPF Urine Bacteria Rare A (None Seen) /HPF Urine Culture Reflexed YES (NO) - Progress Progress: unchanged Air Movement: good Progress Note: 08/12/23 13:36 68-year-old with multiple medical problems including recurrent UTIs evaluated in the ER for urinary frequency burning and dysuria. Urinalysis is consistent with UTI, given a dose of Rocephin in here and will continue with Keflex to go home. Outpatient follow-up recommended. Has no flank tenderness or abdominal pain, do not think has pyelonephritis. Do not think needs any other workup and is stable for discharge. Discussed signs symptoms of worsening needing return to ER which she seems understanding. Blood Culture(s) Obtained: No Antibiotics given: Yes, No Counseled pt/family regarding: lab results, diagnosis, need for follow-up Medical Desision Making - Diagnostic Testing Diagnostic test were ordered, analyzed, and reviewed by me: Yes - Risk of complications The pt has a mod risk of morbidity or mortality based on: Need for prescription drug management - Departure Departure Disposition: Home Clinical Impression: Acute UTI Condition: Stable Critical Care Time: No Referrals: MARQUISE HENDERSON DO [Primary Care Provider] - Follow up with PCP 1 day Instructions: Urinary Tract Infection, Adult (DC) Additional Instructions: Take Tylenol as needed. Drink plenty of fluids. Follow-up with primary care for reevaluation. Return to ER for any worsening of urinary symptoms or if develop fever chills nausea or vomiting. Prescriptions: Cephalexin Mh 500 mg [Keflex 500 mg] 500 mg PO TID #21 cap
== END 2023-08-12 13:49 | disposition home or self-care (01) ==
LOC: ED 11:37
DX: N39.0 Urinary tract infection, site not specified (principal); R30.0 Dysuria; R35.0 Frequency of micturition; E78.5 Hyperlipidemia, unspecified; Z79.01 Long term (current) use of anticoagulants; Z79.899 Other long term (current) drug therapy
CPT/HCPCS: 81001; 87086; 96372; 99283; J0696

== ENCOUNTER 2023-08-19 08:38 | Emergency (ER) | payer MEDICARE, OTHER ==
[2023-08-19 09:00] VITALS: BP 95/65; PULSE 102; TEMP 96.5; O2SAT 97
--- NOTE | 2023-08-19 09:19 | ERPHSYRPT ---
- History of Present Illness Time Seen by Provider: 08/19/23 08:56 Source: patient Exam Limitations: no limitations Patient Subjective Stated Complaint: Pt had her port accessed by [facility] and had her leave it and they told her that she could come here and have it deacc essed Triage Nursing Assessment: pt brought self to the ER, denies pain, pt here just to have port deaccessed, walked to the room with no difficulties, denies any other issues Physician History: 68 years old female with multiple medical problems who has a port which was accessed by [facility], was discharged yesterday, was recommended to have it get deaccessed at the closest facility today if she does not get sick. She denies having any nausea vomiting, chest pain or abdominal pain. She has shortness of breath at her baseline with oxygen saturation around 98% on oxygen which she is usually on. Port is deaccessed, heparin flushed. Outpatient follow-up as routine scheduled by/advised by [place]. Allergies/Adverse Reactions: sumatriptan [From Imitrex] Allergy (Intermediate, Verified 08/19/23 08:52) Rash codeine Allergy (Mild, Verified 08/19/23 08:52) Rash MAKES SICK nitrofurantoin [From Macrobid] Allergy (Unknown, Verified 08/19/23 08:52) sulfamethoxazole [From Bactrim] Allergy (Unknown, Verified 08/19/23 08:52) trimethoprim [From Bactrim] Allergy (Unknown, Verified 08/19/23 08:52) sumatriptan succinate [From Imitrex] Allergy (Verified 08/19/23 08:52) morphine Adverse Reaction (Severe, Verified 08/19/23 08:52) Headache MIGRAINES fentanyl Adverse Reaction (Intermediate, Verified 08/19/23 08:52) Headache hydrocodone bitartrate [From Vicodin] Adverse Reaction (Mild, Verified 08/19/23 08:52) Vomiting hydromorphone [From Dilaudid] Adverse Reaction (Mild, Verified 08/19/23 08:52) pt states makes headache worse. Home Medications: ALPRAZolam 1 MG [Xanax 1 mg] 1 mg PO TID 02/17/13 [History] Aspirin 81 mg PO DAILY 09/11/16 [History] Levothyroxine Sodium 50 Mcg [Synthroid 50 Mcg] 50 mcg PO DAILY 07/06/17 [History] Dexlansoprazole [Dexilant] 60 mg PO DAILY 01/21/20 [History] Albuterol 2.5 mg/3 ml Neb [Proventil 2.5 mg/3 ml Neb] 2.5 mg IH QID 07/23/20 [History] dilTIAZem HCl [Diltiazem 24Hr ER (Cd)] 120 mg PO DAILY 09/29/21 [History] Promethazine HCl 25 mg [Phenergan 25 mg] 25 mg PO BIDPRN PRN 01/18/22 [History] Apixaban [Eliquis] 5 mg PO BID 07/02/22 [History] Fluticasone/Umeclidin/Vilanter [Trelegy Ellipta 200-62.5-25] 1 each IH DAILY 07/02/22 [History] Cetirizine HCl [Zyrtec] 1 tab PO DAILY 11/08/22 [History] Magnesium Oxide 400 mg [Mag-Ox 400] 1 tab PO DAILY 11/08/22 [History] Sodium Bicarbonate 2 tab PO TID 11/08/22 [History] Omeprazole/Sodium Bicarbonate [Omeprazole-Bicarb 40-1,100 Cap] 1 each PO HS 11/15 06/07 [History] Atorvastatin Calcium [Lipitor 40Mg] 40 mg PO DAILY 03/09/23 [History] Rizatriptan Benzoate [Maxalt] 10 mg PO DAILY 05/05/23 [History] Tenapanor HCl [Ibsrela] 50 mg PO BID 05/05/23 [History] Ubrogepant [Ubrelvy] 100 mg PO DAILY PRN 05/05/23 [History] Hx Tetanus, Diphtheria Vaccination/Date Given: Yes Hx Influenza Vaccination/Date Given: No Hx Pneumococcal Vaccination/Date Given: Yes Travel Risk - International Travel Have you traveled outside of the country in past 3 weeks: No - Emerging Infectious Disease Are you exhibiting symptoms associated with any current EIDs: No - Review of Systems Constitutional: No Symptoms Ears, Nose, & Throat: No Symptoms Respiratory: Cough Cardiac: No Symptoms Abdominal/Gastrointestinal: No Symptoms Genitourinary Symptoms: No Symptoms Musculoskeletal: Arthralgias Skin: No Symptoms - Past Medical History Pertinent Past Medical History: Yes Neurological History: Migraines, TIA ENT History: Cataracts Cardiac History: High Cholesterol Respiratory History: Bronchitis, COPD, Pulmonary Embolism Endocrine Medical History: Hypothyroidism Musculoskeletal History: Osteoarthritis GI Medical History: GERD, Gallbladder Disease, Other History: Other Psycho-Social History: Anxiety, Depression, Panic Disorder Female Reproductive Disorders: No Pertinent History Other Medical History: frequent uti's, chronic pseudo obstruction, blood clot, partial bowel blockage. - Past Surgical History Past Surgical History: Yes Neuro Surgical History: No Pertinent History Cardiac: No Pertinent History Respiratory: No Pertinent History Gastrointestinal: Cholecystectomy, Other Genitourinary: No Pertinent History Musculoskeletal: No Pertinent History Female Surgical History: Hysterectomy Other Surgical History: all of large intestine removed and most of small intestines removed, feeding tube in 2004 removed in 2007. Significant Family History: no pertinent family hx - Social History Smoking Status: Never smoker Exposure to second hand smoke: Yes Alcohol Use: None Drug Use: none Patient Lives Alone: Yes - Social Determinants of Health Will the patient participate in the screening: Yes Do you worry about a steady place to live?: No Do you have any problems with any of the following?: No known problems In the past 12 months,have you had to go without utilities?: No Transportation Issues: No Has anyone in your support network made you feel unsafe?: No Have you or anyone in your house had to go without enough: No - Nursing Vital Signs Nursing Vital Signs: Initial Vital Signs Temperature 96.5 F 08/19/23 08:45 Pulse Rate 102 H 08/19/23 08:45 Blood Pressure 95/65 08/19/23 08:45 O2 Sat by Pulse Oximetry 97 08/19/23 08:45 Pain Scale Pain Intensity 0 - Physical Exam General Appearance: no apparent distress Eye Exam: PERRL/EOMI Neck Exam: normal inspection, full range of motion Respiratory Exam: rhonchi, No respiratory distress Cardiovascular Exam: regular rate/rhythm, normal heart sounds Extremity Exam: normal inspection Neurologic Exam: alert, 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, cooperative Skin Exam: normal color SpO2 Interpretation: O2 applied SpO2: 97 O2 Delivery: Nasal Cannula Ordered Tests: Medication Summary Generic Name Dose Route Start Last Admin Trade Name Freq PRN Reason Stop Dose Admin Heparin Sodium (Beef Lung) 500 units 08/19/23 08:54 08/19/23 08:56 Heparin Lock Flush Pf 500 Units/5 Ml Syringe PORT FLUSH 09/18/23 08:53 500 units PRN PRN Administration IV PORT FLUSH - Progress Progress: unchanged Progress Note: 08/19/23 09:18 68 years old female with multiple medical problems who has a port which was accessed by [facility], was discharged yesterday, was recommended to have it get deaccessed at the closest facility today if she does not get sick. She denies having any nausea vomiting, chest pain or abdominal pain. She has shortness of breath at her baseline with oxygen saturation around 98% on oxygen which she is usually on. Port is deaccessed, heparin flushed. Outpatient follow-up as routine scheduled by/advised by [place]. Counseled pt/family regarding: diagnosis, need for follow-up Medical Desision Making - Diagnostic Testing Diagnostic test were ordered, analyzed, and reviewed by me: No - Departure Departure Disposition: Home Clinical Impression: Encounter to deaccess implanted intravenous (IV) port Condition: Stable Critical Care Time: No Referrals: MARQUISE HENDERSON DO [Primary Care Provider] - Follow up with PCP 1 day Additional Instructions: Follow-up with your primary care for reevaluation as recommended by [place]. Return to ER for any worsening or if having swelling around the port. Chest pain palpitations shortness of breath etc.
== END 2023-08-19 09:36 | disposition home or self-care (01) ==
LOC: ED 08:38
DX: Z45.2 Encounter for adjustment and management of vascular access device (principal); E78.5 Hyperlipidemia, unspecified; Z79.899 Other long term (current) drug therapy
CPT/HCPCS: 99281; J1642

== ENCOUNTER 2023-08-24 00:26 | Emergency (ER) | payer MEDICARE, OTHER ==
[2012-11-05 17:17] VITALS: BP 100/62
--- NOTE | 2023-08-24 00:32 | ERPHSYRPT ---
- History of Present Illness Time Seen by Provider: 08/24/23 00:31 Source: patient Allergies/Adverse Reactions: sumatriptan [From Imitrex] Allergy (Intermediate, Verified 08/19/23 08:52) Rash codeine Allergy (Mild, Verified 08/19/23 08:52) Rash MAKES SICK nitrofurantoin [From Macrobid] Allergy (Unknown, Verified 08/19/23 08:52) sulfamethoxazole [From Bactrim] Allergy (Unknown, Verified 08/19/23 08:52) trimethoprim [From Bactrim] Allergy (Unknown, Verified 08/19/23 08:52) sumatriptan succinate [From Imitrex] Allergy (Verified 08/19/23 08:52) morphine Adverse Reaction (Severe, Verified 08/19/23 08:52) Headache MIGRAINES fentanyl Adverse Reaction (Intermediate, Verified 08/19/23 08:52) Headache hydrocodone bitartrate [From Vicodin] Adverse Reaction (Mild, Verified 08/19/23 08:52) Vomiting hydromorphone [From Dilaudid] Adverse Reaction (Mild, Verified 08/19/23 08:52) pt states makes headache worse. Home Medications: ALPRAZolam 1 MG [Xanax 1 mg] 1 mg PO TID 02/17/13 [History] Aspirin 81 mg PO DAILY 09/11/16 [History] Levothyroxine Sodium 50 Mcg [Synthroid 50 Mcg] 50 mcg PO DAILY 07/06/17 [History] Dexlansoprazole [Dexilant] 60 mg PO DAILY 01/21/20 [History] Albuterol 2.5 mg/3 ml Neb [Proventil 2.5 mg/3 ml Neb] 2.5 mg IH QID 07/23/20 [History] dilTIAZem HCL [Diltiazem 24Hr ER (Cd)] 120 mg PO DAILY 09/29/21 [History] Promethazine HCl 25 mg [Phenergan 25 mg] 25 mg PO BIDPRN PRN 01/18/22 [History] Apixaban [Eliquis] 5 mg PO BID 07/02/22 [History] Fluticasone/Umeclidin/Vilanter [Trelegy Ellipta 200-62.5-25] 1 each IH DAILY 07/02/22 [History] Cetirizine HCl [Zyrtec] 1 tab PO DAILY 11/08/22 [History] Magnesium Oxide 400 mg [Mag-Ox 400] 1 tab PO DAILY 11/08/22 [History] Sodium Bicarbonate 2 tab PO TID 11/08/22 [History] Omeprazole/Sodium Bicarbonate [Omeprazole-Bicarb 40-1,100 Cap] 1 each PO HS 11/28/22 [History] Atorvastatin Calcium [Lipitor 40Mg] 40 mg PO DAILY 03/09/23 [History] Rizatriptan Benzoate [Maxalt] 10 mg PO DAILY 05/05/23 [History] Tenapanor HCl [Ibsrela] 50 mg PO BID 05/05/23 [History] Ubrogepant [Ubrelvy] 100 mg PO DAILY PRN 05/05/23 [History] Hx Tetanus, Diphtheria Vaccination/Date Given: Yes Hx Influenza Vaccination/Date Given: No Hx Pneumococcal Vaccination/Date Given: Yes Travel Risk - Emerging Infectious Disease Are you exhibiting symptoms associated with any current EIDs: No - Past Medical History Pertinent Past Medical History: Yes Neurological History: Migraines, TIA ENT History: Cataracts Cardiac History: High Cholesterol Respiratory History: Bronchitis, COPD, Pulmonary Embolism Endocrine Medical History: Hypothyroidism Musculoskeletal History: Osteoarthritis GI Medical History: GERD, Gallbladder Disease, Other History: Other Psycho-Social History: Anxiety, Depression, Panic Disorder Female Reproductive Disorders: No Pertinent History Other Medical History: frequent uti's, chronic pseudo obstruction, blood clot, partial bowel blockage. - Past Surgical History Past Surgical History: Yes Neuro Surgical History: No Pertinent History Cardiac: No Pertinent History Respiratory: No Pertinent History Gastrointestinal: Cholecystectomy, Other Genitourinary: No Pertinent History Musculoskeletal: No Pertinent History Female Surgical History: Hysterectomy Other Surgical History: all of large intestine removed and most of small intestines removed, feeding tube in 2004 removed in 2007. Significant Family History: no pertinent family hx - Social History Smoking Status: Never smoker Exposure to second hand smoke: Yes Alcohol Use: None Drug Use: none Patient Lives Alone: Yes - Social Determinants of Health Will the patient participate in the screening: Yes Do you worry about a steady place to live?: No In the past 12 months,have you had to go without utilities?: No Transportation Issues: No Has anyone in your support network made you feel unsafe?: No Have you or anyone in your house had to go without enough: No - Departure Referrals: MARQUISE HENDERSON DO [Primary Care Provider] - Follow up/PCP as directed
== END 2023-08-24 00:42 | disposition left against medical advice (07) ==
LOC: ED 00:26
DX: Z45.2 Encounter for adjustment and management of vascular access device (principal)
CPT/HCPCS: 99281; G0463

== ENCOUNTER 2023-09-17 13:12 | Emergency (ER) | payer MEDICARE, OTHER ==
[2023-09-17 14:09] LABS: Appearance Cloudy (Clear); Bacteria Many /HPF (None Seen); Bilirubin Negative (Negative); Blood Negative (Negative); Epithelial Cells Rare /HPF (None Seen); Glucose, Urine Negative (Negative); Hyaline Casts NONE SEEN /LPF (0-2); Ketones Trace (Negative); Leukocyte Esterase Moderate (Negative); Nitrite Negative (Negative); Ph 5.5 (4.6-8.0); Protein,Urine Dip Trace (Negative); WBC >100 /HPF (0-5)
[2023-09-17 14:10] LABS: ADD URINE CULTURE? YES (NO)
[2023-09-17] MEDS ORDERED: TORAdol 30 mg Injection ONE (14:16)
[2023-09-17] MEDS: TORAdol 30 mg Injection IM ONE (14:19)
--- NOTE | 2023-09-17 14:27 | ERPHSYRPT ---
- History of Present Illness Time Seen by Provider: 09/17/23 13:17 Source: patient Exam Limitations: no limitations Patient Subjective Stated Complaint: pt here for chronic UTI, she states her last one was in august, she states burning with urination started 2 days ago. no f ever, Triage Nursing Assessment: pt alert anxious at times, walked in, resp labored at times, o2 at 4 lnc as per home, moves all ext well, Physician History: Patient here with chronic UTIs. Patient states that she last had a UTI in mid August. Patient states she cannot take Macrobid or sulfa. Patient is managed by a urologist. She states that they did call him today and she has not received a call back. She has no early signs of pyelonephritis. No CVA pain, fever, tachycardia, systemic signs of illness. Patient is taking PO well. Same number of urinations and defecations. The patient has no signs of altered mental status, nuchal rigidity, signs of meningitis. The patient is up-to-date on all vaccinations. Allergies/Adverse Reactions: sumatriptan [From Imitrex] Allergy (Intermediate, Verified 09/17/23 13:25) Rash codeine Allergy (Mild, Verified 09/17/23 13:25) Rash MAKES SICK nitrofurantoin [From Macrobid] Allergy (Unknown, Verified 09/17/23 13:25) sulfamethoxazole [From Bactrim] Allergy (Unknown, Verified 09/17/23 13:25) trimethoprim [From Bactrim] Allergy (Unknown, Verified 09/17/23 13:25) sumatriptan succinate [From Imitrex] Allergy (Verified 09/17/23 13:25) morphine Adverse Reaction (Severe, Verified 09/17/23 13:25) Headache MIGRAINES fentanyl Adverse Reaction (Intermediate, Verified 09/17/23 13:25) Headache hydrocodone bitartrate [From Vicodin] Adverse Reaction (Mild, Verified 09/17/23 13:25) Vomiting hydromorphone [From Dilaudid] Adverse Reaction (Mild, Verified 09/17/23 13:25) pt states makes headache worse. Home Medications: ALPRAZolam 1 MG [Xanax 1 mg] 1 mg PO TID 02/17/13 [History] Aspirin 81 mg PO DAILY 09/11/16 [History] Levothyroxine Sodium 50 Mcg [Synthroid 50 Mcg] 50 mcg PO DAILY 07/06/17 [History] Dexlansoprazole [Dexilant] 60 mg PO DAILY 01/21/20 [History] Albuterol 2.5 mg/3 ml Neb [Proventil 2.5 mg/3 ml Neb] 2.5 mg IH QID 07/23/20 [History] dilTIAZem HCL [Diltiazem 24Hr ER (Cd)] 120 mg PO DAILY 09/29/21 [History] Promethazine HCl 25 mg [Phenergan 25 mg] 25 mg PO BIDPRN PRN 01/18/22 [History] Apixaban [Eliquis] 5 mg PO BID 07/02/22 [History] Fluticasone/Umeclidin/Vilanter [Trelegy Ellipta 200-62.5-25] 1 each IH DAILY 07/02/22 [History] Cetirizine HCl [Zyrtec] 1 tab PO DAILY 11/08/22 [History] Magnesium Oxide 400 mg [Mag-Ox 400] 1 tab PO DAILY 11/08/22 [History] Sodium Bicarbonate 2 tab PO TID 11/08/22 [History] Omeprazole/Sodium Bicarbonate [Omeprazole-Bicarb 40-1,100 Cap] 1 each PO HS 11/28/22 [History] Atorvastatin Calcium [Lipitor 40Mg] 40 mg PO DAILY 03/09/23 [History] Rizatriptan Benzoate [Maxalt] 10 mg PO DAILY 05/05/23 [History] Tenapanor HCl [Ibsrela] 50 mg PO BID 05/05/23 [History] Ubrogepant [Ubrelvy] 100 mg PO DAILY PRN 05/05/23 [History] Hx Tetanus, Diphtheria Vaccination/Date Given: No Hx Influenza Vaccination/Date Given: Yes Hx Pneumococcal Vaccination/Date Given: Yes Immunizations Up to Date: Yes Travel Risk - International Travel Have you traveled outside of the country in past 3 weeks: No - Emerging Infectious Disease Are you exhibiting symptoms associated with any current EIDs: No - Review of Systems Constitutional: No Fever, No Chills Eyes: No Symptoms Ears, Nose, & Throat: No Symptoms Respiratory: No Cough, No Dyspnea Cardiac: No Chest Pain, No Edema, No Syncope Abdominal/Gastrointestinal: No Abdominal Pain, No Nausea, No Vomiting, No Diarrhea Genitourinary Symptoms: Dysuria Musculoskeletal: No Back Pain, No Neck Pain Skin: No Rash Neurological: No Dizziness, No Focal Weakness, No Sensory Changes Psychological: No Symptoms Endocrine: No Symptoms All Other Systems: Reviewed and Negative - Past Medical History Pertinent Past Medical History: Yes Neurological History: Migraines, TIA ENT History: Cataracts Cardiac History: High Cholesterol Respiratory History: Bronchitis, COPD, Pneumonia, Pulmonary Embolism Endocrine Medical History: Hypothyroidism Musculoskeletal History: Osteoarthritis GI Medical History: GERD, Gallbladder Disease, Other History: Other Psycho-Social History: Anxiety, Depression, Panic Disorder Female Reproductive Disorders: No Pertinent History Other Medical History: frequent uti's, chronic pseudo obstruction, blood clot, partial bowel blockage. septic in august 2023 - Past Surgical History Past Surgical History: Yes Neuro Surgical History: No Pertinent History Cardiac: No Pertinent History Respiratory: No Pertinent History Gastrointestinal: Cholecystectomy, Other Genitourinary: No Pertinent History Musculoskeletal: No Pertinent History Female Surgical History: Hysterectomy Other Surgical History: all of large intestine removed and most of small intestines removed, feeding tube in 2004 removed in 2007. Significant Family History: no pertinent family hx - Social History Smoking Status: Never smoker Exposure to second hand smoke: Yes Alcohol Use: None Drug Use: none Patient Lives Alone: Yes - Social Determinants of Health Will the patient participate in the screening: Yes Do you worry about a steady place to live?: No Do you have any problems with any of the following?: No known problems In the past 12 months,have you had to go without utilities?: No Transportation Issues: No Has anyone in your support network made you feel unsafe?: No Have you or anyone in your house had to go without enough: No - Nursing Vital Signs Nursing Vital Signs: Pain Scale Pain Intensity 9 - Physical Exam General Appearance: no apparent distress, alert Eye Exam: PERRL/EOMI, eyes nml inspection Ears, Nose, Throat Exam: normal ENT inspection, TMs normal, pharynx normal, moist mucous membranes Neck Exam: normal inspection, non-tender, supple, full range of motion Respiratory Exam: normal breath sounds, lungs clear, No respiratory distress Cardiovascular Exam: regular rate/rhythm, normal heart sounds, normal peripheral pulses Gastrointestinal/Abdomen Exam: soft, normal bowel sounds, No tenderness, No mass Back Exam: normal inspection, normal range of motion, No CVA tenderness, No vertebral tenderness Extremity Exam: normal inspection, normal range of motion, pelvis stable Neurologic Exam: alert, 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, cooperative, normal mood/affect, nml cerebellar function, nml station & gait, sensation nml, No motor deficits Skin Exam: normal color, warm, dry, No rash Lymphatic Exam: No adenopathy - Course Nursing assessment & vital signs reviewed: Yes Ordered Tests: Active Orders 24 hr Category Date Time Status CULTURE,URINE Stat Lab 09/17/23 Received UA W/RFX UR CULTURE Stat Lab 09/17/23 Completed Medication Summary Discontinued Medications Generic Name Dose Route Start Last Admin Trade Name Freq PRN Reason Stop Dose Admin Ketorolac Tromethamine 30 mg 09/17/23 14:14 09/17/23 14:19 Ketorolac Tromethamine 30 Mg/Ml Inj IM 09/17/23 14:15 30 mg STAT ONE Administration Ketorolac Tromethamine Confirm 09/17/23 14:16 Ketorolac Tromethamine 30 Mg/Ml Inj Administered 09/17/23 14:17 Dose 30 mg .ROUTE .TapDog ONE Lab/Rad Data: Laboratory Results 09/17/23 Range/Units Unknown Urine Color Yellow (Yellow) Urine Appearance Cloudy A (Clear) Urine pH 5.5 (4.6-8.0) Ur Specific Agness 1.020 (1.005-1.030) Urine Protein Trace A (Negative) Urine Glucose (UA) Negative (Negative) mg/dL Urine Ketones Trace A (Negative) Urine Blood Negative (Negative) Urine Nitrite Negative (Negative) Urine Bilirubin Negative (Negative) Urine Urobilinogen 1.0 A (0.2) mg/dL Ur Leukocyte Esterase Moderate A (Negative) U Hyaline Cast (Auto) NONE SEEN (0-2) /LPF Urine Microscopic RBC 3-5 (0-5) /HPF Urine Microscopic WBC >100 A (0-5) /HPF Ur Epithelial Cells Rare (None Seen) /HPF Urine Bacteria Many A (None Seen) /HPF Urine Culture Reflexed YES (NO) - Progress Progress: improved Progress Note: 09/17/23 14:40 Differential diagnosis includes UTI, chronic discomfort, chronic dysuria. Less likely to be early pyelonephritis given no CVA pain, fever, chills here. UA does have many bacteria in it, some epithelial cells, leukocytes, no nitrites. Patient's last few urine cultures have not grown out any bacteria. I did discuss this with the patient. Patient states that she would still like to be treated with an antibiotic today. Will do Keflex as her previous urine cultures appear to be susceptible to this. Plan for discharge home today, follow-up with her urologist. Patient did request a Toradol shot here and 2 Toradol pills going home. I did review patient's last kidney function and it is slightly elevated. I did discuss this with the patient and she still requests a Toradol prescription. Therefore she should only take 1 oral Toradol daily with no other NSAIDs. Patient states her understanding will follow-up as described. Counseled pt/family regarding: lab results, diagnosis, need for follow-up - Departure Departure Disposition: Home Clinical Impression: UTI (urinary tract infection) Condition: Stable Critical Care Time: No Referrals: MARQUISE HENDERSON DO [Primary Care Provider] - Follow up/PCP as directed Instructions: Urinary Tract Infection, Adult (DC) Prescriptions: Cephalexin Mh 500 mg [Keflex 500 mg] 500 mg PO BID 5 Days #10 cap Ketorolac Trometh 10 mg Tab [TORAdol 10 MG TABLET] 10 mg PO DAILY PRN 2 Days #2 tablet PRN Reason: Mild Pain
[2023-09-17 14:43] VITALS: PULSE 96; RESP 22; O2SAT 96
== END 2023-09-17 14:44 | disposition home or self-care (01) ==
LOC: ED 13:12
DX: N39.0 Urinary tract infection, site not specified (principal); E78.5 Hyperlipidemia, unspecified; Z79.01 Long term (current) use of anticoagulants; Z79.899 Other long term (current) drug therapy
CPT/HCPCS: 81001; 87077; 87086; 87186; 96372; 99283; J1885

== ENCOUNTER 2023-10-07 21:02 | Emergency (ER) | payer MEDICARE, OTHER ==
[2023-10-07 21:21] VITALS: TEMP 97.2
[2023-10-07] MEDS ORDERED: BENADRYL 50 MG/ML ONE (21:45)
[2023-10-07] MEDS ORDERED: TYLENOL 325 MG ONE (21:46)
[2023-10-07] MEDS ORDERED: Reglan 10 MG/2 ML ONE (21:46)
[2023-10-07] MEDS ORDERED: MORPHINE SULFATE 4 MG INJ ONE (21:46)
[2023-10-07] MEDS: BENADRYL 50 MG/ML IM ONE (21:49)
[2023-10-07] MEDS: MORPHINE SULFATE 4 MG INJ IM ONE (21:50)
[2023-10-07] MEDS: TYLENOL 325 MG PO ONE (21:52)
[2023-10-07] MEDS: Reglan 10 MG/2 ML IM ONE (21:53)
[2023-10-07 22:16] VITALS: BP 117/65; PULSE 80; O2SAT 93
--- NOTE | 2023-10-07 22:27 | ERPHSYRPT ---
- History of Present Illness Time Seen by Provider: 10/07/23 21:06 Source: patient Exam Limitations: no limitations Patient Subjective Stated Complaint: migraine since 1000 Triage Nursing Assessment: Pt brought to ED by granddaughter with c/o migraine. States pain is a 10/10 and started this morning around 1000, vitals wnl, skin w/n/d, pulses normal, patient's gait steady, pt on oxygen at 3L, pt doesn't appear to be in any distress. Physician History: 68 years old female with multiple medical problems including hypertension, hyperlipidemia, TIAs, chronic migraine, chronic abdominal pain with nausea vomiting, chronic UTIs presented in the ER with generalized headache more in the frontal since noon time. Patient has taken her routine migraine medications x 2 with no significant relief. Reports moderate to severe sharp throbbing headache with no visual disturbance. Aggravated with bright light and loud noise. Partial relief with being in a dark quiet room. Denies any numbness tingling or focal weakness. Headache is similar to previous and does not think this is the worst headache of her life. Patient is requesting a shot of Toradol. Allergies/Adverse Reactions: sumatriptan [From Imitrex] Allergy (Intermediate, Verified 09/17/23 13:25) Rash codeine Allergy (Mild, Verified 09/17/23 13:25) Rash MAKES SICK nitrofurantoin [From Macrobid] Allergy (Unknown, Verified 09/17/23 13:25) sulfamethoxazole [From Bactrim] Allergy (Unknown, Verified 09/17/23 13:25) trimethoprim [From Bactrim] Allergy (Unknown, Verified 09/17/23 13:25) sumatriptan succinate [From Imitrex] Allergy (Verified 09/17/23 13:25) morphine Adverse Reaction (Severe, Verified 09/17/23 13:25) Headache MIGRAINES fentanyl Adverse Reaction (Intermediate, Verified 09/17/23 13:25) Headache hydrocodone bitartrate [From Vicodin] Adverse Reaction (Mild, Verified 09/17/23 13:25) Vomiting hydromorphone [From Dilaudid] Adverse Reaction (Mild, Verified 09/17/23 13:25) pt states makes headache worse. Home Medications: ALPRAZolam 1 MG [Xanax 1 mg] 1 mg PO TID 02/17/13 [History] Aspirin 81 mg PO DAILY 09/11/16 [History] Levothyroxine Sodium 50 Mcg [Synthroid 50 Mcg] 50 mcg PO DAILY 07/06/17 [History] Dexlansoprazole [Dexilant] 60 mg PO DAILY 01/21/20 [History] Albuterol 2.5 mg/3 ml Neb [Proventil 2.5 mg/3 ml Neb] 2.5 mg IH QID 07/23/20 [History] dilTIAZem HCL [Diltiazem 24Hr ER (Cd)] 120 mg PO DAILY 09/29/21 [History] Promethazine HCl 25 mg [Phenergan 25 mg] 25 mg PO BIDPRN PRN 01/18/22 [History] Apixaban [Eliquis] 5 mg PO BID 07/02/22 [History] Fluticasone/Umeclidin/Vilanter [Trelegy Ellipta 200-62.5-25] 1 each IH DAILY 07/02/22 [History] Cetirizine HCl [Zyrtec] 1 tab PO DAILY 11/08/22 [History] Magnesium Oxide 400 mg [Mag-Ox 400] 1 tab PO DAILY 11/08/22 [History] Sodium Bicarbonate 2 tab PO TID 11/08/22 [History] Omeprazole/Sodium Bicarbonate [Omeprazole-Bicarb 40-1,100 Cap] 1 each PO HS 11/28/22 [History] Atorvastatin Calcium [Lipitor 40Mg] 40 mg PO DAILY 03/09/23 [History] Tenapanor HCl [Ibsrela] 50 mg PO BID 05/05/23 [History] Ubrogepant [Ubrelvy] 100 mg PO DAILY PRN 05/05/23 [History] Hx Tetanus, Diphtheria Vaccination/Date Given: No Hx Influenza Vaccination/Date Given: Yes Hx Pneumococcal Vaccination/Date Given: Yes Travel Risk - International Travel Have you traveled outside of the country in past 3 weeks: No - Emerging Infectious Disease Are you exhibiting symptoms associated with any current EIDs: No - Review of Systems Constitutional: No Symptoms Eyes: No Symptoms Ears, Nose, & Throat: No Symptoms Respiratory: No Symptoms Cardiac: No Symptoms Abdominal/Gastrointestinal: Abdominal Pain, Nausea, Vomiting Genitourinary Symptoms: No Symptoms Musculoskeletal: No Symptoms Neurological: Headache Psychological: Anxiety Endocrine: No Symptoms Hematologic/Lymphatic: No Symptoms Immunological/Allergic: No Symptoms - Past Medical History Pertinent Past Medical History: Yes Neurological History: Migraines, TIA ENT History: Cataracts Cardiac History: High Cholesterol Respiratory History: Bronchitis, COPD, Pneumonia, Pulmonary Embolism Endocrine Medical History: Hypothyroidism Musculoskeletal History: Osteoarthritis GI Medical History: GERD, Gallbladder Disease, Other History: Other Psycho-Social History: Anxiety, Depression, Panic Disorder Female Reproductive Disorders: No Pertinent History Other Medical History: frequent uti's, chronic pseudo obstruction, blood clot, partial bowel blockage. septic in august 2023 - Past Surgical History Past Surgical History: Yes Neuro Surgical History: No Pertinent History Cardiac: No Pertinent History Respiratory: No Pertinent History Gastrointestinal: Cholecystectomy, Other Genitourinary: No Pertinent History Musculoskeletal: No Pertinent History Female Surgical History: Hysterectomy Other Surgical History: all of large intestine removed and most of small intestines removed, feeding tube in 2004 removed in 2007. Significant Family History: no pertinent family hx - Social History Smoking Status: Never smoker Exposure to second hand smoke: No Alcohol Use: None Drug Use: none Patient Lives Alone: Yes - Social Determinants of Health Will the patient participate in the screening: Yes Do you worry about a steady place to live?: No Do you have any problems with any of the following?: No known problems In the past 12 months,have you had to go without utilities?: No Transportation Issues: No Has anyone in your support network made you feel unsafe?: No Have you or anyone in your house had to go without enough: No - Nursing Vital Signs Nursing Vital Signs: Initial Vital Signs Temperature 97.2 F 10/07/23 21:07 Pulse Rate 93 H 10/07/23 21:07 Blood Pressure 98/60 10/07/23 21:07 O2 Sat by Pulse Oximetry 96 10/07/23 21:07 Pain Scale Pain Intensity 8 - Physical Exam General Appearance: no apparent distress, alert Eye Exam: PERRL/EOMI Ears, Nose, Throat Exam: normal ENT inspection, TMs normal, pharynx normal, moist mucous membranes Neck Exam: normal inspection, non-tender, supple, full range of motion Respiratory Exam: normal breath sounds, lungs clear Cardiovascular Exam: regular rate/rhythm, normal heart sounds Gastrointestinal/Abdominal Exam: soft, normal bowel sounds, No tenderness Extremity Exam: normal inspection, normal range of motion 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, 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, cooperative Coordination/Gait Exam: normal finger to nose, normal gait, normal cerebellar function Motor/Sensory Exam: no motor deficit, no sensory deficit, no pronator drift, negative Babinski's sign DTR Exam: bicep (R): 2+, bicep (L): 2+, knee (R): 2+, knee (L): 2+ Skin Exam: normal color SpO2 Interpretation: normal SpO2: 93 O2 Delivery: Room Air Ordered Tests: Medication Summary Discontinued Medications Generic Name Dose Route Start Last Admin Trade Name Elton PRN Reason Stop Dose Admin Acetaminophen 975 mg 10/07/23 21:39 10/07/23 21:52 Acetaminophen 325 Mg Tablet PO 10/07/23 21:40 975 mg STAT ONE Administration Acetaminophen Confirm 10/07/23 21:46 Acetaminophen 325 Mg Tablet Administered 10/07/23 21:47 Dose 975 mg .ROUTE .STK-MED ONE Diphenhydramine HCl 25 mg 10/07/23 21:39 10/07/23 21:49 Diphenhydramine Hcl 50 Mg/Ml Vial IM 10/07/23 21:40 25 mg STAT ONE Administration Diphenhydramine HCl Confirm 10/07/23 21:45 Diphenhydramine Hcl 50 Mg/Ml Vial Administered 10/07/23 21:46 Dose 50 mg .ROUTE .STK-MED ONE Metoclopramide HCl 10 mg 10/07/23 21:39 10/07/23 21:53 Metoclopramide Hcl 10 Mg/2 Ml Vial IM 10/07/23 21:40 10 mg STAT ONE Administration Metoclopramide HCl Confirm 10/07/23 21:46 Metoclopramide Hcl 10 Mg/2 Ml Vial Administered 10/07/23 21:47 Dose 10 mg .ROUTE .STK-MED ONE Morphine Sulfate 4 mg 10/07/23 21:39 10/07/23 21:50 Morphine Sulfate 4 Mg/Ml Injection IM 10/07/23 21:40 4 mg STAT ONE Administration Morphine Sulfate Confirm 10/07/23 21:46 Morphine Sulfate 4 Mg/Ml Injection Administered 10/07/23 21:47 Dose 4 mg .ROUTE .STK-MED ONE - Progress Progress: improved, re-examined Air Movement: good Progress Note: 10/07/23 22:26 68 years old with multiple medical problems including TIA, chronic migraines on Eliquis is evaluated for worsening headache since noon with no relief with her routine medications. Nonfocal neuroexam throughout her stay in the ER. Does not think this is the worst headache of her life. Patient was requesting Toradol shot, I do not feel comfortable using Toradol with patient being on Eliquis and have given her Reglan Benadryl and morphine, on reevaluation her headache is better and patient wants to go home. No difficulty ambulation. Neuroexam remained nonfocal. Stable for discharge with outpatient primary care and neurology follow-up. Discussed signs symptoms of worsening needing return to ER which she seems understanding. Blood Culture(s) Obtained: No Antibiotics given: No Counseled pt/family regarding: diagnosis, need for follow-up Medical Desision Making - Diagnostic Testing Diagnostic test were ordered, analyzed, and reviewed by me: No - Risk of complications The pt has a mod risk of morbidity or mortality based on: Need for prescription drug management - Departure Departure Disposition: Home Clinical Impression: Migraine Qualifiers: Migraine type: unspecified Status migrainosus presence: without status migrainosus Intractability: not intractable Qualified Code(s): G43.909 - Migraine, unspecified, not intractable, without status migrainosus Condition: Stable Critical Care Time: No Referrals: MARQUISE HENDERSON DO [Primary Care Provider] - Follow up with PCP 1 day Instructions: Headache, Adult (DC) Additional Instructions: Continue with your routine migraine medications. Follow-up with primary care and neurology for reevaluation. Return to ER for intractable headache, numbness tingling weakness, visual disturbance, neck pain/fever chills etc.
== END 2023-10-07 22:38 | disposition home or self-care (01) ==
LOC: ED 21:02
DX: G43.909 Migraine, unspecified, not intractable, without status migrainosus (principal); I10 Essential (primary) hypertension; E78.5 Hyperlipidemia, unspecified; Z79.01 Long term (current) use of anticoagulants; Z79.899 Other long term (current) drug therapy
CPT/HCPCS: 96372; 99283; J1200; J2270; A9270-GY

== ENCOUNTER 2023-10-12 22:50 | Emergency (ER) | payer MEDICARE, OTHER ==
[2023-10-12] MEDS ORDERED: TORAdol 30 mg Injection ONE (23:16)
[2023-10-12] MEDS ORDERED: ZOFRAN ODT 4 MG ONE (23:16)
[2023-10-12] MEDS ORDERED: BENADRYL 25 MG CAPSULE ONE (23:17)
[2023-10-12] MEDS: ZOFRAN ODT 4 MG PO ONE (23:18)
[2023-10-12] MEDS: BENADRYL 25 MG CAPSULE PO ONE (23:18)
[2023-10-12 23:20] VITALS: RESP 18; TEMP 98.4
[2023-10-12] MEDS: TORAdol 30 mg Injection IM ONE (23:24)
--- NOTE | 2023-10-12 23:48 | ERPHSYRPT ---
- History of Present Illness Time Seen by Provider: 10/12/23 23:06 Source: patient Exam Limitations: no limitations Patient Subjective Stated Complaint: pt states she has had a migraine since approx noon Triage Nursing Assessment: pt alert and oriented, answers questions approp. pt ambulates to room with slow gait. respirations nonlabored. o2 on at 4l as at home per pt. skin warm and dry. pupils equal and reactive. pt moves all extremities without diff Physician History: 68-year-old female presents to our emergency department for treatment of a migraine headache. Patient has a history of chronic recurrent migraine headaches. Patient's headache today is typical of her usual migraine. There is mild photophobia. Sound sensitivity. No fever no neck pain no meningeal signs. No trauma. Mild nausea. No vomiting. No diarrhea no rash. Symptoms are mild to moderate in intensity. Patient otherwise feels well. She voices no other complaints or concerns at this time. Portions of this note were created with voice recognition technology. There may be grammatical, spelling, punctuation or sound alike errors Timing/Duration: today Severity: moderate Modifying Factors: Improves With: nothing Associated Symptoms: denies symptoms Allergies/Adverse Reactions: sumatriptan [From Imitrex] Allergy (Intermediate, Verified 09/17/23 13:25) Rash codeine Allergy (Mild, Verified 09/17/23 13:25) Rash MAKES SICK nitrofurantoin [From Macrobid] Allergy (Unknown, Verified 09/17/23 13:25) sulfamethoxazole [From Bactrim] Allergy (Unknown, Verified 09/17/23 13:25) trimethoprim [From Bactrim] Allergy (Unknown, Verified 09/17/23 13:25) sumatriptan succinate [From Imitrex] Allergy (Verified 09/17/23 13:25) morphine Adverse Reaction (Severe, Verified 09/17/23 13:25) Headache MIGRAINES fentanyl Adverse Reaction (Intermediate, Verified 09/17/23 13:25) Headache hydrocodone bitartrate [From Vicodin] Adverse Reaction (Mild, Verified 09/17/23 13:25) Vomiting hydromorphone [From Dilaudid] Adverse Reaction (Mild, Verified 09/17/23 13:25) pt states makes headache worse. Home Medications: ALPRAZolam 1 MG [Xanax 1 mg] 1 mg PO TID 02/17/13 [History] Aspirin 81 mg PO DAILY 09/11/16 [History] Levothyroxine Sodium 50 Mcg [Synthroid 50 Mcg] 50 mcg PO DAILY 07/06/17 [History] Dexlansoprazole [Dexilant] 60 mg PO DAILY 01/21/20 [History] Albuterol 2.5 mg/3 ml Neb [Proventil 2.5 mg/3 ml Neb] 2.5 mg IH QID 07/23/20 [History] dilTIAZem HCL [Diltiazem 24Hr ER (Cd)] 120 mg PO DAILY 09/29/21 [History] Promethazine HCl 25 mg [Phenergan 25 mg] 25 mg PO BIDPRN PRN 01/18/22 [History] Apixaban [Eliquis] 5 mg PO BID 07/02/22 [History] Fluticasone/Umeclidin/Vilanter [Trelegy Ellipta 200-62.5-25] 1 each IH DAILY 07/02/22 [History] Cetirizine HCl [Zyrtec] 1 tab PO DAILY 11/08/22 [History] Magnesium Oxide 400 mg [Mag-Ox 400] 1 tab PO DAILY 11/08/22 [History] Sodium Bicarbonate 2 tab PO TID 11/08/22 [History] Omeprazole/Sodium Bicarbonate [Omeprazole-Bicarb 40-1,100 Cap] 1 each PO HS 11/28/22 [History] Atorvastatin Calcium [Lipitor 40Mg] 40 mg PO DAILY 03/09/23 [History] Tenapanor HCl [Ibsrela] 50 mg PO BID 05/05/23 [History] Ubrogepant [Ubrelvy] 100 mg PO DAILY PRN 05/05/23 [History] Hx Tetanus, Diphtheria Vaccination/Date Given: No Hx Influenza Vaccination/Date Given: Yes Hx Pneumococcal Vaccination/Date Given: Yes Immunizations Up to Date: Yes Travel Risk - International Travel Have you traveled outside of the country in past 3 weeks: No - Emerging Infectious Disease Are you exhibiting symptoms associated with any current EIDs: No - Review of Systems Constitutional: No Symptoms, No Fever, No Chills Eyes: No Symptoms Ears, Nose, & Throat: No Symptoms Respiratory: No Symptoms, No Cough, No Dyspnea Cardiac: No Symptoms, No Chest Pain, No Edema, No Syncope Abdominal/Gastrointestinal: No Symptoms, No Abdominal Pain, No Nausea, No Vomiting, No Diarrhea Genitourinary Symptoms: No Symptoms, No Dysuria Musculoskeletal: No Symptoms, No Back Pain, No Neck Pain Skin: No Symptoms, No Rash Neurological: No Symptoms, No Dizziness, No Focal Weakness, No Sensory Changes Psychological: No Symptoms Endocrine: No Symptoms Hematologic/Lymphatic: No Symptoms Immunological/Allergic: No Symptoms All Other Systems: Reviewed and Negative - Past Medical History Pertinent Past Medical History: Yes Neurological History: Migraines, TIA ENT History: Cataracts Cardiac History: High Cholesterol Respiratory History: Bronchitis, COPD, Pneumonia, Pulmonary Embolism Endocrine Medical History: Hypothyroidism Musculoskeletal History: Osteoarthritis GI Medical History: GERD, Gallbladder Disease, Other History: Other Psycho-Social History: Anxiety, Depression, Panic Disorder Female Reproductive Disorders: No Pertinent History Other Medical History: frequent uti's, chronic pseudo obstruction, blood clot, partial bowel blockage. septic in august 2023 - Past Surgical History Past Surgical History: Yes Neuro Surgical History: No Pertinent History Cardiac: No Pertinent History Respiratory: No Pertinent History Gastrointestinal: Cholecystectomy, Other Genitourinary: No Pertinent History Musculoskeletal: No Pertinent History Female Surgical History: Hysterectomy Other Surgical History: all of large intestine removed and most of small intestines removed, feeding tube in 2004 removed in 2007. Significant Family History: no pertinent family hx - Social History Smoking Status: Never smoker Exposure to second hand smoke: No Alcohol Use: None Drug Use: none Patient Lives Alone: Yes - Social Determinants of Health Will the patient participate in the screening: Yes Do you worry about a steady place to live?: No Do you have any problems with any of the following?: No known problems In the past 12 months,have you had to go without utilities?: No Transportation Issues: No Has anyone in your support network made you feel unsafe?: No Have you or anyone in your house had to go without enough: No - Nursing Vital Signs Nursing Vital Signs: Initial Vital Signs Temperature 98.4 F 10/12/23 23:01 Pulse Rate 102 H 10/12/23 23:01 Respiratory Rate 18 10/12/23 23:01 Blood Pressure 137/93 10/12/23 23:01 O2 Sat by Pulse Oximetry 99 10/12/23 23:01 Pain Scale Pain Intensity 10 - Physical Exam General Appearance: no apparent distress, alert Eye Exam: PERRL/EOMI, eyes nml inspection Ears, Nose, Throat Exam: normal ENT inspection, TMs normal, pharynx normal, moist mucous membranes Neck Exam: normal inspection, non-tender, supple, full range of motion Respiratory Exam: normal breath sounds, lungs clear, airway intact, No respiratory distress Cardiovascular Exam: regular rate/rhythm, normal heart sounds, normal peripheral pulses Gastrointestinal/Abdomen Exam: soft, normal bowel sounds, No tenderness, No mass Back Exam: normal inspection, normal range of motion, No CVA tenderness, No vertebral tenderness Extremity Exam: normal inspection, normal range of motion, pelvis stable Neurologic Exam: alert, 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, cooperative, normal mood/affect, nml cerebellar function, nml station & gait, sensation nml, No motor deficits Skin Exam: normal color, warm, dry, No rash Lymphatic Exam: No adenopathy SpO2 Interpretation: normal SpO2: 99 O2 Delivery: Room Air - Course Nursing assessment & vital signs reviewed: Yes Ordered Tests: Medication Summary Discontinued Medications Generic Name Dose Route Start Last Admin Trade Name Brendonq PRN Reason Stop Dose Admin Diphenhydramine HCl 25 mg 10/12/23 23:10 10/12/23 23:18 Diphenhydramine Hcl 25 Mg Capsule PO 10/12/23 23:11 25 mg STAT ONE Administration Diphenhydramine HCl Confirm 10/12/23 23:17 Diphenhydramine Hcl 25 Mg Capsule Administered 10/12/23 23:18 Dose 25 mg .ROUTE .STK-MED ONE Ketorolac Tromethamine 30 mg 10/12/23 23:10 10/12/23 23:24 Ketorolac Tromethamine 30 Mg/Ml Inj IM 10/12/23 23:11 30 mg STAT ONE Administration Ketorolac Tromethamine Confirm 10/12/23 23:16 Ketorolac Tromethamine 30 Mg/Ml Inj Administered 10/12/23 23:17 Dose 30 mg .ROUTE .STK-MED ONE Ondansetron HCl 4 mg 10/12/23 23:10 10/12/23 23:18 Zofran 4 Mg/Udtablet Orally Disintegrating PO 10/12/23 23:11 4 mg STAT ONE Administration Ondansetron HCl Confirm 10/12/23 23:16 Zofran 4 Mg/Udtablet Orally Disintegrating Administered 10/12/23 23:17 Dose 4 mg .ROUTE .STK-MED ONE - Progress Progress: improved Progress Note: 68-year-old female with chronic recurrent migraine headaches. Presents to our ED with a typical migraine headache. Physical exam nonremarkable. Neurologic exam shows no focal or lateralizing symptoms. Patient received Toradol Zofran and Benadryl for her migraine. Headache significantly improved. Patient now requesting discharge. Will discharge home. She agrees to follow-up with her primary care doctor within 48 hours for reevaluation. Portions of this note were created with voice recognition technology. There may be grammatical, spelling, punctuation or sound alike errors Complexity problem addressed is moderate acute complicated. No critical care time. Complexity of data reviewed and analyzed is moderate. Test ordered chest reviewed results analyzed and correlated clinically with history and physical exam. Risk of complication and or risk of morbidity/mortality of patient management is low. Vital stable. Time spent to discharge patient approximately 10 minutes. Plan of care established for shared decision making. No social determinants of health present to impede follow-up. Portions of this note were created with voice recognition technology. There may be grammatical, spelling, punctuation or sound alike errors 10/12/23 23:51 Counseled pt/family regarding: diagnosis, need for follow-up - Departure Departure Disposition: Home Clinical Impression: Migraine Condition: Stable Critical Care Time: No Referrals: MARQUISE HENDERSON DO [Primary Care Provider] - Follow up/PCP as directed Additional Instructions: Discharge/Care Plan FREYGEOVANNY SHERRIE was seen on 10/12/23 in the Emergency Room. The patient was counseled regarding Diagnosis,Lab results, Imaging studies, need for follow up and when to return to the Emergency Room. Prescriptions given: Discharge Note I have spoken with the patient and/or caregivers. I have explained the patient's condition, diagnosis and treatment plan based on the information available to me at this time. I have answered the patient's and/or caregiver's questions and addressed any concerns. The patient and/or caregivers have as good understanding of the patient's diagnosis, condition and treatment plan as can be expected at this point. The vital signs have been stable. The patient's condition is stable and appropriate for discharge from the emergency department. The patient will pursue further outpatient evaluation with the primary care physician or other designated or consulting physician as outlined in the discharge instructions. The patient and/or caregivers are agreeable to this plan of care and follow-up instructions have been explained in detail. The patient and/or caregivers have received these instruction. The patient/and or caregivers are aware that any significant change in condition or worsening of symptoms should prompt an immediate return to this or the closest emergency department or call 911.
[2023-10-13 00:13] VITALS: BP 120/83; PULSE 84; O2SAT 97
== END 2023-10-13 00:13 | disposition home or self-care (01) ==
LOC: ED 22:50
DX: G43.909 Migraine, unspecified, not intractable, without status migrainosus (principal); E78.5 Hyperlipidemia, unspecified; Z79.01 Long term (current) use of anticoagulants; Z79.899 Other long term (current) drug therapy
CPT/HCPCS: 96372; 99283; J1885; Q0162; A9270-GY

== ENCOUNTER 2023-10-21 15:20 | Emergency (ER) | payer MEDICARE, OTHER ==
[2023-10-21 15:52] VITALS: BP 110/74; PULSE 115; RESP 24; TEMP 96.8
--- NOTE | 2023-10-21 16:14 | ERPHSYRPT ---
- History of Present Illness Time Seen by Provider: 10/21/23 15:25 Source: patient Exam Limitations: no limitations Patient Subjective Stated Complaint: pt here for a migraine she states she gets 3-4 a week , last meds was 0300 today, Triage Nursing Assessment: pt alert, walked o2 at 3 lnc as per home, resp labored with movement, skin w/d/p. wearing sunglasses, moves all ext well Physician History: 68 years old female with multiple medical problems including hypertension, hyperlipidemia, TIA, chronic UTI, poorly controlled migraines, on Eliquis presented in the ER with complaints of frontal headache since yesterday. She has used her routine migraine medication with no significant relief. Patient reports some element of photophobia and phonophobia but no numbness tingling or focal weakness. Headache is usual as routine. Patient has 3-4 episodes every week. Denies any difficulty movements of neck. No numbness tingling or focal weakness. No fever or chills reported. Has chronic abdominal pain with nausea and vomiting which is not any worse than usual. Does not think this is the worst headache of her life. She could not manage her migraine at home because has taken her last dose of migraine medication around 3 AM. Allergies/Adverse Reactions: sumatriptan [From Imitrex] Allergy (Intermediate, Verified 09/17/23 13:25) Rash codeine Allergy (Mild, Verified 09/17/23 13:25) Rash MAKES SICK nitrofurantoin [From Macrobid] Allergy (Unknown, Verified 09/17/23 13:25) sulfamethoxazole [From Bactrim] Allergy (Unknown, Verified 09/17/23 13:25) trimethoprim [From Bactrim] Allergy (Unknown, Verified 09/17/23 13:25) sumatriptan succinate [From Imitrex] Allergy (Verified 09/17/23 13:25) morphine Adverse Reaction (Severe, Verified 09/17/23 13:25) Headache MIGRAINES fentanyl Adverse Reaction (Intermediate, Verified 09/17/23 13:25) Headache hydrocodone bitartrate [From Vicodin] Adverse Reaction (Mild, Verified 09/17/23 13:25) Vomiting hydromorphone [From Dilaudid] Adverse Reaction (Mild, Verified 09/17/23 13:25) pt states makes headache worse. Home Medications: ALPRAZolam 1 MG [Xanax 1 mg] 1 mg PO TID 02/17/13 [History] Aspirin 81 mg PO DAILY 09/11/16 [History] Levothyroxine Sodium 50 Mcg [Synthroid 50 Mcg] 50 mcg PO DAILY 07/06/17 [History] Dexlansoprazole [Dexilant] 60 mg PO DAILY 01/21/20 [History] Albuterol 2.5 mg/3 ml Neb [Proventil 2.5 mg/3 ml Neb] 2.5 mg IH QID 07/23/20 [History] dilTIAZem HCL [Diltiazem 24Hr ER (Cd)] 120 mg PO DAILY 09/29/21 [History] Promethazine HCl 25 mg [Phenergan 25 mg] 25 mg PO BIDPRN PRN 01/18/22 [History] Apixaban [Eliquis] 5 mg PO BID 07/02/22 [History] Fluticasone/Umeclidin/Vilanter [Trelegy Ellipta 200-62.5-25] 1 each IH DAILY 07/02/22 [History] Cetirizine HCl [Zyrtec] 1 tab PO DAILY 11/08/22 [History] Magnesium Oxide 400 mg [Mag-Ox 400] 1 tab PO DAILY 11/08/22 [History] Sodium Bicarbonate 2 tab PO TID 11/08/22 [History] Omeprazole/Sodium Bicarbonate [Omeprazole-Bicarb 40-1,100 Cap] 1 each PO HS 11/28/22 [History] Atorvastatin Calcium [Lipitor 40Mg] 40 mg PO DAILY 03/09/23 [History] Tenapanor HCl [Ibsrela] 50 mg PO BID 05/05/23 [History] Ubrogepant [Ubrelvy] 100 mg PO DAILY PRN 05/05/23 [History] Hx Tetanus, Diphtheria Vaccination/Date Given: No Hx Influenza Vaccination/Date Given: Yes Hx Pneumococcal Vaccination/Date Given: Yes Immunizations Up to Date: Yes Travel Risk - International Travel Have you traveled outside of the country in past 3 weeks: No - Emerging Infectious Disease Are you exhibiting symptoms associated with any current EIDs: No - Review of Systems Constitutional: No Symptoms Eyes: Photophobia Ears, Nose, & Throat: No Symptoms Respiratory: No Symptoms Cardiac: No Symptoms Abdominal/Gastrointestinal: Abdominal Pain, Nausea, Vomiting Genitourinary Symptoms: Dysuria, Frequency Musculoskeletal: Arthralgias Skin: No Symptoms Neurological: Headache Endocrine: No Symptoms Hematologic/Lymphatic: No Symptoms - Past Medical History Pertinent Past Medical History: Yes Neurological History: Migraines, TIA ENT History: Cataracts Cardiac History: High Cholesterol Respiratory History: Bronchitis, COPD, Pneumonia, Pulmonary Embolism Endocrine Medical History: Hypothyroidism Musculoskeletal History: Osteoarthritis GI Medical History: GERD, Gallbladder Disease, Other History: Other Psycho-Social History: Anxiety, Depression, Panic Disorder Female Reproductive Disorders: No Pertinent History Other Medical History: frequent uti's, chronic pseudo obstruction, blood clot, partial bowel blockage. septic in august 2023. post a cath replaced 10/15/23 - Past Surgical History Past Surgical History: Yes Neuro Surgical History: No Pertinent History Cardiac: No Pertinent History Respiratory: No Pertinent History Gastrointestinal: Cholecystectomy, Other Genitourinary: No Pertinent History Musculoskeletal: No Pertinent History Female Surgical History: Hysterectomy Other Surgical History: all of large intestine removed and most of small intestines removed, feeding tube in 2004 removed in 2007. Significant Family History: no pertinent family hx - Social History Smoking Status: Never smoker Exposure to second hand smoke: No Alcohol Use: None Drug Use: none Patient Lives Alone: Yes - Social Determinants of Health Will the patient participate in the screening: Yes Do you worry about a steady place to live?: No Do you have any problems with any of the following?: No known problems In the past 12 months,have you had to go without utilities?: No Transportation Issues: No Has anyone in your support network made you feel unsafe?: No Have you or anyone in your house had to go without enough: No - Nursing Vital Signs Nursing Vital Signs: Initial Vital Signs Temperature 96.8 F 10/21/23 15:37 Pulse Rate 115 H 10/21/23 15:37 Respiratory Rate 24 10/21/23 15:37 Blood Pressure 110/74 10/21/23 15:37 Pain Scale Pain Intensity 10 - Physical Exam General Appearance: no apparent distress, alert Eye Exam: PERRL/EOMI Ears, Nose, Throat Exam: normal ENT inspection, TMs normal, pharynx normal, moist mucous membranes Neck Exam: normal inspection, non-tender, supple, full range of motion Respiratory Exam: normal breath sounds, lungs clear Cardiovascular Exam: regular rate/rhythm, normal heart sounds Gastrointestinal/Abdominal Exam: soft, normal bowel sounds, No tenderness Extremity Exam: normal inspection, normal range of motion 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, 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, 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 Exam: normal hearing, normal speech, PERRL Coordination/Gait Exam: normal finger to nose, normal gait, negative Romberg's sign, positive Romberg's sign Motor/Sensory Exam: no motor deficit, no sensory deficit, no pronator drift DTR Exam: bicep (R): 2+, bicep (L): 2+, knee (R): 2+, knee (L): 2+ Skin Exam: normal color SpO2 Interpretation: normal SpO2: 98 O2 Delivery: Room Air Ordered Tests: Medication Summary Discontinued Medications Generic Name Dose Route Start Last Admin Trade Name Freq PRN Reason Stop Dose Admin Acetaminophen 975 mg 10/21/23 16:00 10/21/23 16:21 Acetaminophen 325 Mg Tablet PO 10/21/23 16:01 975 mg STAT ONE Administration Acetaminophen Confirm 10/21/23 16:18 Acetaminophen 325 Mg Tablet Administered 10/21/23 16:19 Dose 975 mg .ROUTE .STK-MED ONE Diphenhydramine HCl 50 mg 10/21/23 16:00 10/21/23 16:22 Diphenhydramine Hcl 50 Mg/Ml Vial IM 10/21/23 16:01 50 mg STAT ONE Administration Diphenhydramine HCl Confirm 10/21/23 16:18 Diphenhydramine Hcl 50 Mg/Ml Vial Administered 10/21/23 16:19 Dose 50 mg .ROUTE .STK-MED ONE Morphine Sulfate 4 mg 10/21/23 16:00 10/21/23 16:24 Morphine Sulfate 4 Mg/Ml Injection IM 10/21/23 16:01 4 mg STAT ONE Administration Morphine Sulfate Confirm 10/21/23 16:18 Morphine Sulfate 4 Mg/Ml Injection Administered 10/21/23 16:19 Dose 4 mg .ROUTE .STK-MED ONE Prochlorperazine Edisylate 5 mg 10/21/23 16:00 10/21/23 16:23 Prochlorperazine Edisylate 10 Mg/2 Ml Vial IM 10/21/23 16:01 5 mg STAT ONE Administration Prochlorperazine Edisylate Confirm 10/21/23 16:19 Prochlorperazine Edisylate 10 Mg/2 Ml Vial Administered 10/21/23 16:20 Dose 10 mg .ROUTE .STK-MED ONE - Progress Progress: improved, re-examined Air Movement: good Progress Note: 10/21/23 23:16 68 years old with a history of migraine is evaluated in the ER for headache since yesterday. Does not think this is the worst headache of her life. Nonfocal neuroexam. No signs of meningismus. Headache is similar to previous episodes. She is given migraine cocktail with morphine Benadryl/Compazine, on reevaluation her headache is getting better. Neuroexam remained nonfocal. Patient did not inform anyone and walked out of the ER without assistance. Blood Culture(s) Obtained: No Antibiotics given: No Counseled pt/family regarding: diagnosis, need for follow-up Medical Desision Making - Diagnostic Testing Diagnostic test were ordered, analyzed, and reviewed by me: No - Risk of complications The pt has a mod risk of morbidity or mortality based on: Need for prescription drug management - Departure Departure Disposition: [facility] ([facility]) Clinical Impression: Migraine headache Condition: Stable Critical Care Time: No Referrals: MARQUISE HENDERSON DO [Primary Care Provider] - Follow up/PCP as directed
[2023-10-21 16:17] VITALS: O2SAT 98
[2023-10-21] MEDS ORDERED: BENADRYL 50 MG/ML ONE (16:18)
[2023-10-21] MEDS ORDERED: MORPHINE SULFATE 4 MG INJ ONE (16:18)
[2023-10-21] MEDS ORDERED: TYLENOL 325 MG ONE (16:18)
[2023-10-21] MEDS ORDERED: Compazine 10 MG/2 ML ONE (16:19)
[2023-10-21] MEDS: TYLENOL 325 MG PO ONE (16:21)
[2023-10-21] MEDS: BENADRYL 50 MG/ML IM ONE (16:22)
[2023-10-21] MEDS: Compazine 10 MG/2 ML IM ONE (16:23)
[2023-10-21] MEDS: MORPHINE SULFATE 4 MG INJ IM ONE (16:24)
== END 2023-10-21 17:01 | disposition left against medical advice (07) ==
LOC: ED 15:20
DX: G43.909 Migraine, unspecified, not intractable, without status migrainosus (principal); I10 Essential (primary) hypertension; E78.5 Hyperlipidemia, unspecified; Z79.01 Long term (current) use of anticoagulants; Z79.899 Other long term (current) drug therapy
CPT/HCPCS: 96372; 99283; J1200; J2270; A9270-GY

== ENCOUNTER 2023-10-25 21:56 | Emergency (ER) | payer MEDICARE, OTHER ==
--- NOTE | 2023-10-25 22:02 | ERPHSYRPT ---
- History of Present Illness Time Seen by Provider: 10/25/23 22:02 Source: patient Exam Limitations: no limitations Physician History: This is a 68-year-old white female patient known to our emergency room because of several visits each month. In less than 4 weeks the patient has been seen 4 times in this emergency department for the complaint of migraine headache. She was seen on 10/21/2019 for the same complaint. Patient does not see a neurologist for headaches and has been unable to secure an outpatient appointment with her primary care provider per her report. Patient states that it is the same migraine headache she usually has. However, her usual outpatient medication is not working for these headaches. Patient states that she has had CAT scans and MRI of her brain recently in [facility] and does not want another set of her scans performed. Here in our facility, on 07/21/2023 she had a normal CAT scan of the head without contrast. She also had a negative MRI of the brain that was performed on 11/30/2022. Patient has a history of hypertension, hyperlipidemia, TIAs, chronic urinary tract infection, migraine headaches and is on Eliquis. She has a history of anxiety and panic disorder as well as depression. Patient did not suffer any kind of fall or head injury or trauma to her head. Timing/Duration: today, intermittent, worse Quality: aching Head Pain Location: global Severity of Pain-Max: moderate Severity of Pain-Current: moderate Recent Head Trauma: no recent headache/trauma, occasional headaches Modifying Factors: Improves With: exposure to light, noise Associated Symptoms: nausea/vomiting, sensitive to light, No loss of consciousness, No vision changes, No visual disturbance Previous symptoms: same symptoms as today (Nausea but no vomiting), recently seen, recently treated Allergies/Adverse Reactions: sumatriptan [From Imitrex] Allergy (Intermediate, Verified 10/25/23 22:09) Rash codeine Allergy (Mild, Verified 10/25/23 22:09) Rash MAKES SICK nitrofurantoin [From Macrobid] Allergy (Unknown, Verified 10/25/23 22:09) sulfamethoxazole [From Bactrim] Allergy (Unknown, Verified 10/25/23 22:09) trimethoprim [From Bactrim] Allergy (Unknown, Verified 10/25/23 22:09) sumatriptan succinate [From Imitrex] Allergy (Verified 10/25/23 22:09) morphine Adverse Reaction (Severe, Verified 10/25/23 22:09) Headache MIGRAINES fentanyl Adverse Reaction (Intermediate, Verified 10/25/23 22:09) Headache hydrocodone bitartrate [From Vicodin] Adverse Reaction (Mild, Verified 10/25/23 22:09) Vomiting hydromorphone [From Dilaudid] Adverse Reaction (Mild, Verified 10/25/23 22:09) pt states makes headache worse. Home Medications: ALPRAZolam 1 MG [Xanax 1 mg] 1 mg PO TID 02/17/13 [History] Aspirin 81 mg PO DAILY 09/11/16 [History] Levothyroxine Sodium 50 Mcg [Synthroid 50 Mcg] 50 mcg PO DAILY 07/06/17 [History] Dexlansoprazole [Dexilant] 60 mg PO DAILY 01/21/20 [History] Albuterol 2.5 mg/3 ml Neb [Proventil 2.5 mg/3 ml Neb] 2.5 mg IH QID 07/23/20 [History] dilTIAZem HCL [Diltiazem 24Hr ER (Cd)] 120 mg PO DAILY 09/29/21 [History] Promethazine HCl 25 mg [Phenergan 25 mg] 25 mg PO BIDPRN PRN 01/18/22 [History] Apixaban [Eliquis] 5 mg PO BID 07/02/22 [History] Fluticasone/Umeclidin/Vilanter [Trelegy Ellipta 200-62.5-25] 1 each IH DAILY 07/02/22 [History] Cetirizine HCl [Zyrtec] 1 tab PO DAILY 11/08/22 [History] Magnesium Oxide 400 mg [Mag-Ox 400] 1 tab PO DAILY 11/08/22 [History] Sodium Bicarbonate 2 tab PO TID 11/08/22 [History] Omeprazole/Sodium Bicarbonate [Omeprazole-Bicarb 40-1,100 Cap] 1 each PO HS 11/28/22 [History] Atorvastatin Calcium [Lipitor 40Mg] 40 mg PO DAILY 03/09/23 [History] Tenapanor HCl [Ibsrela] 50 mg PO BID 05/05/23 [History] Ubrogepant [Ubrelvy] 100 mg PO DAILY PRN 05/05/23 [History] Hx Tetanus, Diphtheria Vaccination/Date Given: No Hx Influenza Vaccination/Date Given: Yes Hx Pneumococcal Vaccination/Date Given: Yes Travel Risk - International Travel Have you traveled outside of the country in past 3 weeks: No - Emerging Infectious Disease Are you exhibiting symptoms associated with any current EIDs: No - Review of Systems Constitutional: No Symptoms Eyes: No Symptoms Ears, Nose, & Throat: No Symptoms Respiratory: No Symptoms Cardiac: No Symptoms Abdominal/Gastrointestinal: Nausea, No Abdominal Pain, No Vomiting, No Diarrhea, No Constipation Genitourinary Symptoms: No Symptoms Musculoskeletal: No Symptoms Skin: No Symptoms Neurological: Headache Psychological: Anxiety, Depression Endocrine: No Symptoms Hematologic/Lymphatic: No Symptoms Immunological/Allergic: No Symptoms All Other Systems: Reviewed and Negative - Past Medical History Pertinent Past Medical History: Yes Neurological History: Migraines, TIA ENT History: Cataracts Cardiac History: High Cholesterol Respiratory History: Bronchitis, COPD, Pneumonia, Pulmonary Embolism Endocrine Medical History: Hypothyroidism Musculoskeletal History: Osteoarthritis GI Medical History: GERD, Gallbladder Disease, Other History: Other Psycho-Social History: Anxiety, Depression, Panic Disorder Female Reproductive Disorders: No Pertinent History Other Medical History: frequent uti's, chronic pseudo obstruction, blood clot, partial bowel blockage. septic in august 2023. post a cath replaced 10/15/23 - Past Surgical History Past Surgical History: Yes Neuro Surgical History: No Pertinent History Cardiac: No Pertinent History Respiratory: No Pertinent History Gastrointestinal: Cholecystectomy, Other Genitourinary: No Pertinent History Musculoskeletal: No Pertinent History Female Surgical History: Hysterectomy Other Surgical History: all of large intestine removed and most of small intestines removed, feeding tube in 2004 removed in 2007. Significant Family History: no pertinent family hx - Social History Smoking Status: Never smoker Exposure to second hand smoke: No Alcohol Use: None Drug Use: none Patient Lives Alone: Yes - Social Determinants of Health Will the patient participate in the screening: Yes Do you worry about a steady place to live?: No In the past 12 months,have you had to go without utilities?: No Transportation Issues: No Has anyone in your support network made you feel unsafe?: No Have you or anyone in your house had to go without enough: No - Nursing Vital Signs Nursing Vital Signs: Initial Vital Signs Temperature 98.4 F 10/25/23 22:10 Pulse Rate 106 H 10/25/23 22:10 Respiratory Rate 18 10/25/23 22:10 Blood Pressure 143/82 10/25/23 22:10 O2 Sat by Pulse Oximetry 97 10/25/23 22:10 Pain Scale Pain Intensity 10 - Physical Exam General Appearance: no apparent distress, alert, anxiety Eye Exam: PERRL/EOMI, eyes nml inspection Ears, Nose, Throat Exam: normal ENT inspection, moist mucous membranes Neck Exam: normal inspection, non-tender, supple, full range of motion Respiratory Exam: airway intact, No chest tenderness, No respiratory distress Gastrointestinal/Abdominal Exam: No tenderness Back Exam: normal inspection, normal range of motion, No CVA tenderness, No vertebral tenderness Extremity Exam: normal inspection, normal range of motion, pelvis stable 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, 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, cooperative clinical investigator Exam: normal hearing, normal speech, PERRL Coordination/Gait Exam: normal gait, normal cerebellar function Skin Exam: normal color, warm, dry Lymphatic Exam: No adenopathy SpO2 Interpretation: normal O2 Delivery: Room Air - Course Nursing assessment & vital signs reviewed: Yes - Progress Progress: improved, re-examined Air Movement: good Progress Note: 10/25/23 22:55 My medical decision making of the assignment of low complexity to this patient's medical issue today is based on review of the patient's past medical history, review of the patient's medication list, reviewed patient drug allergy list, history present illness and physical findings on examination. The workup in this patient includes providing the patient with intramuscular Compazine, intramuscular Benadryl, intramuscular morphine and intramuscular Toradol. Patient states that this is her typical migraine headache that does not respond to her outpatient therapy on occasion. She does not want another CT scan or MRI of her brain. 10/25/23 22:56 Patient states that she is not allergic to morphine. She states that she does not like taking narcotic pain medicine because it scares her. Blood Culture(s) Obtained: No Antibiotics given: No Counseled pt/family regarding: diagnosis, need for follow-up Medical Desision Making - Diagnostic Testing Diagnostic test were ordered, analyzed, and reviewed by me: No - Risk of complications Low Risk: Low risk of morbidity from additional dx testing or treatment - Departure Departure Disposition: Home Clinical Impression: Migraine headache Condition: Stable Critical Care Time: No Referrals: MARQUISE HENDERSON DO [Primary Care Provider] - Follow up/PCP as directed Additional Instructions: Call your primary care provider tomorrow, 10/26/2023, to make arranges for follow-up appointment for further evaluation management including an arrangement to be seen in the next 3 to 5 days and referred to a neurologist if indicated.
[2023-10-25 22:20] VITALS: RESP 18; TEMP 98.4; O2SAT 97
[2023-10-25] MEDS ORDERED: TORAdol 30 mg Injection ONE (23:02)
[2023-10-25] MEDS ORDERED: BENADRYL 50 MG/ML ONE (23:02)
[2023-10-25] MEDS ORDERED: MORPHINE SULFATE 4 MG INJ ONE (23:02)
[2023-10-25] MEDS ORDERED: Compazine 10 MG/2 ML ONE (23:03)
[2023-10-25] MEDS: TORAdol 30 mg Injection IM ONE (23:16)
[2023-10-25] MEDS: BENADRYL 50 MG/ML IM ONE (23:17)
[2023-10-25] MEDS: MORPHINE SULFATE 4 MG INJ IM ONE (23:21)
[2023-10-25] MEDS: Compazine 10 MG/2 ML IM ONE (23:21)
[2023-10-25 23:37] VITALS: BP 111/73; PULSE 89
== END 2023-10-25 23:54 | disposition home or self-care (01) ==
LOC: ED 21:56
DX: G43.909 Migraine, unspecified, not intractable, without status migrainosus (principal); I10 Essential (primary) hypertension; E78.5 Hyperlipidemia, unspecified; Z79.01 Long term (current) use of anticoagulants; Z79.899 Other long term (current) drug therapy
CPT/HCPCS: 96372; 99283; J1200; J1885; J2270

== ENCOUNTER 2023-11-06 09:13 | Emergency (ER) | payer MEDICARE, OTHER ==
[2023-11-06] MEDS ORDERED: Invanz *** 1 G in Sodium Chloride 100ML MINI-BAG PLUS 100 ML IV ONE (09:14)
[2023-11-06 09:22] VITALS: TEMP 97.2; O2SAT 97
[2023-11-06] MEDS ORDERED: Pepcid 20 MG VIAL IV ONE (09:27)
[2023-11-06] MEDS ORDERED: Sodium Chloride 0.9% 1000 ML 1,000 ML ONE (09:27)
[2023-11-06] MEDS ORDERED: Zofran 4 MG/2 ML VIAL ONE (09:27)
[2023-11-06] MEDS: Sodium Chloride 0.9% 1000 ML 1,000 ML IV SCH (09:30)
[2023-11-06] MEDS: Pepcid 20 MG VIAL IV ONE (09:30)
[2023-11-06] MEDS: Zofran 4 MG/2 ML VIAL IV ONE (09:30)
--- NOTE | 2023-11-06 09:35 | ERPHSYRPT ---
- History of Present Illness Time Seen by Provider: 11/06/23 09:31 Historian: patient Exam Limitations: no limitations Patient Subjective Stated Complaint: Pt was here for an infusion and when she was getting out of her car she had sudden onset chest pain Triage Nursing Assessment: Pt brought self to the ER, tachycardic, tachypnic, rates chest and back pain as 8/10, pain to the medial epigastric region that radiates to the back, pulses normal, skin n/w/d, no edema, wears 3L NC at all times, pt appeared to be panicking upon arrival but has now calmed down, doesn't appear to be in any distress Physician History: Pt was here for an IV Antibiotics infusion and when she was getting out of her car she had sudden onset chest pain, so She was sent to ER Timing/Duration: today Quality: stabbing Location: epigastric Chest Pain Radiation: no radiation Severity of Pain-Max: moderate Severity of Pain-Current: moderate Modifying Factors: Improves With: nothing Associated Symptoms: denies symptoms Prior Chest Pain/Cardiac Workup: no prior chest pain Nitro Today/Relief: no nitro taken today Aspirin Treatment Today: no aspirin today Body Map: 1 - pain Allergies/Adverse Reactions: sumatriptan [From Imitrex] Allergy (Intermediate, Verified 11/06/23 09:23) Rash codeine Allergy (Mild, Verified 11/06/23 09:23) Rash MAKES SICK nitrofurantoin [From Macrobid] Allergy (Unknown, Verified 11/06/23 09:23) sulfamethoxazole [From Bactrim] Allergy (Unknown, Verified 11/06/23 09:23) trimethoprim [From Bactrim] Allergy (Unknown, Verified 11/06/23 09:23) sumatriptan succinate [From Imitrex] Allergy (Verified 11/06/23 09:23) morphine Adverse Reaction (Severe, Verified 11/06/23 09:23) Headache MIGRAINES fentanyl Adverse Reaction (Intermediate, Verified 11/06/23 09:23) Headache hydrocodone bitartrate [From Vicodin] Adverse Reaction (Mild, Verified 11/06/23 09:23) Vomiting hydromorphone [From Dilaudid] Adverse Reaction (Mild, Verified 11/06/23 09:23) pt states makes headache worse. Home Medications: ALPRAZolam 1 MG [Xanax 1 mg] 1 mg PO TID 02/17/13 [History] Aspirin 81 mg PO DAILY 09/11/16 [History] Levothyroxine Sodium 50 Mcg [Synthroid 50 Mcg] 50 mcg PO DAILY 07/06/17 [History] Dexlansoprazole [Dexilant] 60 mg PO DAILY 01/21/20 [History] Albuterol 2.5 mg/3 ml Neb [Proventil 2.5 mg/3 ml Neb] 2.5 mg IH QID 07/23/20 [History] dilTIAZem HCL [Diltiazem 24Hr ER (Cd)] 120 mg PO DAILY 09/29/21 [History] Promethazine HCl 25 mg [Phenergan 25 mg] 25 mg PO BIDPRN PRN 01/18/22 [History] Apixaban [Eliquis] 5 mg PO BID 07/02/22 [History] Fluticasone/Umeclidin/Vilanter [Trelegy Ellipta 200-62.5-25] 1 each IH DAILY 07/02/22 [History] Cetirizine HCl [Zyrtec] 1 tab PO DAILY 11/08/22 [History] Magnesium Oxide 400 mg [Mag-Ox 400] 1 tab PO DAILY 11/08/22 [History] Sodium Bicarbonate 2 tab PO TID 11/08/22 [History] Omeprazole/Sodium Bicarbonate [Omeprazole-Bicarb 40-1,100 Cap] 1 each PO HS 11/28/22 [History] Atorvastatin Calcium [Lipitor 40Mg] 40 mg PO DAILY 03/09/23 [History] Tenapanor HCl [Ibsrela] 50 mg PO BID 05/05/23 [History] Ubrogepant [Ubrelvy] 100 mg PO DAILY PRN 05/05/23 [History] Hx Tetanus, Diphtheria Vaccination/Date Given: No Hx Influenza Vaccination/Date Given: Yes Hx Pneumococcal Vaccination/Date Given: Yes Travel Risk - International Travel Have you traveled outside of the country in past 3 weeks: No - Emerging Infectious Disease Are you exhibiting symptoms associated with any current EIDs: No - Review of Systems Constitutional: No Fever, No Chills Eyes: No Symptoms Ears, Nose, & Throat: No Symptoms Respiratory: No Cough, No Dyspnea Cardiac: Other (Epigastric pain), No Chest Pain, No Edema, No Syncope Abdominal/Gastrointestinal: Abdominal Pain (Epigastric area), No Nausea, No Vomiting, No Diarrhea Genitourinary Symptoms: No Dysuria Musculoskeletal: No Back Pain, No Neck Pain Skin: No Rash Neurological: No Dizziness, No Focal Weakness, No Sensory Changes Psychological: No Symptoms Endocrine: No Symptoms Hematologic/Lymphatic: No Symptoms Immunological/Allergic: No Symptoms All Other Systems: Reviewed and Negative - Past Medical History Pertinent Past Medical History: Yes Neurological History: Migraines, TIA ENT History: Cataracts Cardiac History: High Cholesterol Respiratory History: Bronchitis, COPD, Pneumonia, Pulmonary Embolism Endocrine Medical History: Hypothyroidism Musculoskeletal History: Osteoarthritis GI Medical History: GERD, Gallbladder Disease, Other History: Other Psycho-Social History: Anxiety, Depression, Panic Disorder Female Reproductive Disorders: No Pertinent History Other Medical History: frequent uti's, chronic pseudo obstruction, blood clot, partial bowel blockage. septic in august 2023. post a cath replaced 10/15/23 - Past Surgical History Past Surgical History: Yes Neuro Surgical History: No Pertinent History Cardiac: No Pertinent History Respiratory: No Pertinent History Gastrointestinal: Cholecystectomy, Other Genitourinary: No Pertinent History Musculoskeletal: No Pertinent History Female Surgical History: Hysterectomy Other Surgical History: all of large intestine removed and most of small intestines removed, feeding tube in 2004 removed in 2007. Significant Family History: no pertinent family hx - Social History Smoking Status: Never smoker Exposure to second hand smoke: No Alcohol Use: None Drug Use: none Patient Lives Alone: Yes - Social Determinants of Health Will the patient participate in the screening: Yes Do you worry about a steady place to live?: No Do you have any problems with any of the following?: No known problems In the past 12 months,have you had to go without utilities?: No Transportation Issues: No Has anyone in your support network made you feel unsafe?: No Have you or anyone in your house had to go without enough: No - Nursing Vital Signs Nursing Vital Signs: Initial Vital Signs Temperature 97.2 F 11/06/23 09:14 Pulse Rate 103 H 11/06/23 09:14 Respiratory Rate 22 11/06/23 09:14 Blood Pressure 107/74 11/06/23 09:14 O2 Sat by Pulse Oximetry 97 11/06/23 09:14 Pain Scale Pain Intensity 8 - Physical Exam General Appearance: no apparent distress, alert Eye Exam: PERRL/EOMI, eyes nml inspection Ears, Nose, Throat Exam: normal ENT inspection, moist mucous membranes Neck Exam: normal inspection, non-tender, supple, full range of motion Respiratory Exam: normal breath sounds, lungs clear, No respiratory distress Cardiovascular Exam: regular rate/rhythm, normal heart sounds Gastrointestinal/Abdomen Exam: soft, normal bowel sounds, No tenderness, No mass Back Exam: normal inspection, No CVA tenderness, No vertebral tenderness Extremity Exam: normal inspection, normal range of motion Neurologic Exam: alert, 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, cooperative, normal mood/affect, sensation nml, No motor deficits Skin Exam: normal color, warm, dry SpO2: 97 - Course Nursing assessment & vital signs reviewed: Yes EKG Interpreted by Me: Sinus Rhythm Rhythm Strip: Normal Sinus Rhythm - Radiology Exams Chest X-ray Interpretation: Interpreted by me, Reviewed by me, Negative Ordered Tests: Active Orders 24 hr Category Date Time Status EKG-ER Only STAT Care 11/06/23 09:17 Active CHEST 1 VIEW (PORTABLE) Stat Exams 11/06/23 09:18 Taken CBC W DIFF Stat Lab 11/06/23 09:30 Completed CMP Stat Lab 11/06/23 09:30 Completed NT PRO BNPII Stat Lab 11/06/23 09:30 Completed TROPONIN Stat Lab 11/06/23 09:30 Completed Medication Summary Generic Name Dose Route Start Last Admin Trade Name Freq PRN Reason Stop Dose Admin Sodium Chloride 1,000 mls @ 100 mls/hr 11/06/23 09:30 11/06/23 09:30 Sodium Chloride 0.9% 1000 Ml IV 12/06/23 09:29 100 mls/hr .Q10H JENNIFER Administration Discontinued Medications Generic Name Dose Route Start Last Admin Trade Name Freq PRN Reason Stop Dose Admin Famotidine 20 mg 11/06/23 09:17 11/06/23 09:30 Famotidine 20 Mg/1 Vial IV 11/06/23 09:18 20 mg STAT ONE Administration Famotidine Confirm 09/21/24 09:27 Famotidine 20 Mg/1 Vial Administered 11/06/23 09:28 Dose 20 mg IV .STK-MED ONE Ondansetron HCl 4 mg 11/06/23 09:17 11/06/23 09:30 Ondansetron Hcl 4 Mg/2 Ml Vial IV 11/06/23 09:18 4 mg STAT ONE Administration Ondansetron HCl Confirm 11/06/23 09:27 Ondansetron Hcl 4 Mg/2 Ml Vial Administered 11/06/23 09:28 Dose 4 mg .ROUTE .STK-MED ONE Lab/Rad Data: Laboratory Result Diagrams 11/06/23 09:30 11/06/23 09:30 Laboratory Results 11/06/23 11/06/23 11/06/23 Range/Units 09:30 09:30 09:30 WBC 5.2 (3.98-10.04) x10^3/uL RBC 4.25 (3.93-5.22) x10^6/uL Hgb 12.9 (11.2-15.7) g/dL Hct 38.9 (34.1-44.9) % MCV 91.5 (79.4-94.8) fL MCH 30.4 (25.6-32.2) pg MCHC 33.2 (32.2-35.5) g/dL RDW 13.0 (11.7-14.4) % Plt Count 210 (182-369) x10^3/uL MPV 10.2 (9.4-12.3) fL Gran % 64.3 (34.0-71.1) % Immature Gran % (Auto) 0.6 H (0.001-0.429) % Nucleat RBC Rel Count 0.0 (0.00-0.2) % Eos # (Auto) 0.09 (0.04-0.36) x10^3/uL Immature Gran # (Auto) 0.03 (0.001-0.031) x10^3u/L Absolute Lymphs (auto) 1.29 (1.18-3.74) x10^3/uL Absolute Monos (auto) 0.39 (0.24-0.86) x10^3/uL Absolute Nucleated RBC 0.00 (0.00-0.012) x10^3u/L Lymphocytes % 25.0 (19.3-51.7) % Monocytes % 7.6 (4.7-12.5) % Eosinophils % 1.7 (0.7-5.8) % Basophils % 0.8 (0.1-1.2) % Absolute Granulocytes 3.31 (1.56-6.13) x10^3/uL Basophils # 0.04 (0.01-0.08) x10^3/uL Sodium 141 (135-145) mmol/L Potassium 4.3 (3.5-5.1) mmol/L Chloride 109 H (98-107) mmol/L Carbon Dioxide 24 (22-30) mmol/L Anion Gap 13.2 (5-15) MEQ/L BUN 26 H (7-17) mg/dL Creatinine 1.15 H (0.52-1.04) mg/dL Estimated GFR 51.9 ML/MIN Glucose 102 (74-106) mg/dL Calcium 9.2 (8.4-10.2) mg/dL Total Bilirubin 0.50 (0.2-1.3) mg/dL AST 26 (14-36) U/L ALT 25 (0-35) U/L Alkaline Phosphatase 130 H (38-126) U/L Troponin I < 0.012 (0.000-0.033) ng/mL NT-Pro-B Natriuret Pep 30.5 (<300) pg/mL Serum Total Protein 6.6 (6.3-8.2) g/dL Albumin 3.7 (3.5-5.0) g/dL - Progress Progress: improved Air Movement: good Progress Note: 11/06/23 10:52 Patient was scheduled to get her IV antibiotic therapy. It was given in emergency room. Antibiotic was delivered by outpatient department to the emergency room and it was given in the ER without any complication. Blood Culture(s) Obtained: No Antibiotics given: No Counseled pt/family regarding: lab results, diagnosis, need for follow-up, rad results Medical Desision Making - Diagnostic Testing Diagnostic test were ordered, analyzed, and reviewed by me: Yes Radiological Interpretation: Interpreted by me, Reviewed by me - Risk of complications Low Risk: Low risk of morbidity from additional dx testing or treatment - Departure Departure Disposition: Home Clinical Impression: Non-cardiac chest pain GERD (gastroesophageal reflux disease) Qualifiers: Esophagitis presence: with esophagitis Esophagitis bleeding: without hemorrhage Qualified Code(s): K21.00 - Gastro-esophageal reflux disease with esophagitis, without bleeding Condition: Stable Critical Care Time: No Referrals: MARQUISE HENDERSON DO [Primary Care Provider] - Follow up/PCP as directed Instructions: Chest Pain (DC) Additional Instructions: Discharge/Care Plan GEOVANNY FREY was seen on 11/06/23 in the Emergency Room. The patient was counseled regarding Diagnosis,Lab results, Imaging studies, need for follow up and when to return to the Emergency Room. Prescriptions given: Discharge Note I have spoken with the patient and/or caregivers. I have explained the patient's condition, diagnosis and treatment plan based on the information available to me at this time. I have answered the patient's and/or caregiver's questions and addressed any concerns. The patient and/or caregivers have as good understanding of the patient's diagnosis, condition and treatment plan as can be expected at this point. The vital signs have been stable. The patient's condition is stable and appropriate for discharge from the emergency department. The patient will pursue further outpatient evaluation with the primary care physician or other designated or consulting physician as outlined in the discharge instructions. The patient and/or caregivers are agreeable to this plan of care and follow-up instructions have been explained in detail. The patient and/or caregivers have received these instruction. The patient/and or caregivers are aware that any significant change in condition or worsening of symptoms should prompt an immediate return to this or the closest emergency department or call 911. GEOVANNY FREY was seen on 11/06/23 n the Emergency Room. At that time you were treated for an emergent condition, during your visit Laboratory, Radiology and/or other procedures may have been ordered. It is very important that you follow-up with your Primary Care Physician MARQUISE HENDERSON DO within the next 24-48 hours to review your Emergency Room visit and the final results of testing that was ordered. Some test results such as Urine Cultures, Blood Cultures, and other cultures if ordered will not be finalized for 24-48 hours. If you do not have a Primary Care Provider please call the medical records department at [phone] ext [phone] to obtain a copy of your results or you may sign into our patient portal to obtain these results by visiting us @ [email or web address] and completing the following steps: 1. Click on the Patient Portal link 2. Click the Patient Self Enrollment Link to complete the enrollment form and e ntering your 3. Once the enrollment form is completed you will receive an email with a temporary ID and password at the email address you provided. 4. Next choose a user name and password. Your user name must be at least 4 characters long and your password must be at least 4 characters long. 5. Choose a security question from the list and provide your answer to the question. If you already have signed into the Health Portal you may access your Health Care Information 07/09 by the following steps: 1. Login to our website @ [email or web address] 2. Enter your original user name and password. FAQS The [facility] Health Portal is an online tool that contains your Lab Results, Radiology Reports, Visit History, Discharge Instructions and Health Summary Lab and Radiology Results will not be available for 72 hours on the portal. The Portal is a secure site, passwords are encryted and URLs are re-written so they cannot be copied and pasted. You and authorized family members are the only ones who can access your Portal. Also there is a timeout feature that protects your information if you leave the Portal page open. If you have technical difficulty please use the Contact Us link on the page this will allow you to submit any questions you have regarding the Portal or you may contact the Medical Record Department at [phone] ext [phone].
[2023-11-06 09:54] LABS: Absolute Neutrophil Ct (ANC) 3.31 x10^3/uL (1.56-6.13); BASOPHIL % 0.8 % (0.1-1.2); Basophil (Absolute #) 0.04 x10^3/uL (0.01-0.08); Eosinophil % 1.7 % (0.7-5.8); Eosinophil (Absolute #) 0.09 x10^3/uL (0.04-0.36); Hematocrit 38.9 % (34.1-44.9); Hemoglobin 12.9 g/dL (11.2-15.7); IMMATURE GRAN # 0.03 x10^3u/L (0.001-0.031); IMMATURE GRAN % 0.6 % (0.001-0.429); Lymphocyte (Absolute #) 1.29 x10^3/uL (1.18-3.74); Mean Cell Volume 91.5 fL (79.4-94.8); Mean Corpuscular Hemoglobin 30.4 pg (25.6-32.2); Mean Corpuscular Hgb Concent. 33.2 g/dL (32.2-35.5); Mean Platelet Volume 10.2 fL (9.4-12.3); Monocyte (Absolute #) 0.39 x10^3/uL (0.24-0.86); Monocytes % 7.6 % (4.7-12.5); Neutrophil % 64.3 % (34.0-71.1); Platelet Count 210 x10^3/uL (182-369); Red Blood Count 4.25 x10^6/uL (3.93-5.22); White Blood Count 5.2 x10^3/uL (3.98-10.04)
[2023-11-06 10:37] LABS: ALBUMIN 3.7 g/dL (3.5-5.0); ALKALINE PHOSPHATASE 130 U/L (38-126); ANION GAP 13.2 MEQ/L (5-15); BLOOD UREA NITROGEN 26 mg/dL (7-17); CHLORIDE 109 mmol/L (98-107); Calcium 9.2 mg/dL (8.4-10.2); Carbon Dioxide 24 mmol/L (22-30); Creatinine 1 1.15 mg/dL (0.52-1.04); EST GLOMERULAR FILTRATION RATE 51.9 ML/MIN; Glucose 102 mg/dL (74-106); Potassium 4.3 mmol/L (3.5-5.1); SGOT/AST 26 U/L (14-36); SGPT/ALT 25 U/L (0-35); SODIUM 141 mmol/L (135-145); TROPONIN < 0.012 ng/mL (0.000-0.033); Total Protein 6.6 g/dL (6.3-8.2)
[2023-11-06 11:01] VITALS: BP 95/71; PULSE 81; RESP 21
--- NOTE | 2023-11-06 20:43 | XRAY ---
Indication: Chest pain. Comparison: September 07, 2023 Portable chest unchanged again demonstrating minimal right base fibrosis/scarring and tiny right mid lung calcified granulomas. No focal infiltrate, consolidation, or large effusion. Heart not enlarged again with incidental small mediastinal/right hilar calcified nodes and right Port-A-Cath. Bony thorax intact again with osteopenia. Impression: Continued nonacute chest with chronic features.
== END 2023-11-06 11:14 | disposition home or self-care (01) ==
LOC: ED 09:13
DX: R07.9 Chest pain, unspecified (principal); R00.0 Tachycardia, unspecified; K21.00 Gastro-esophageal reflux disease with esophagitis, without bleeding; M54.9 Dorsalgia, unspecified; E78.5 Hyperlipidemia, unspecified; Z99.81 Dependence on supplemental oxygen; Z79.899 Other long term (current) drug therapy
CPT/HCPCS: 36415; 71045; 80053; 83880; 84484; 85025; 93005; 96374; 96375; 99284; J1335; J1642; J2405

== ENCOUNTER 2023-12-08 12:43 | Emergency (ER) | payer MEDICARE, OTHER ==
[2023-12-08 12:54] VITALS: TEMP 97.4
--- NOTE | 2023-12-08 12:55 | ERPHSYRPT ---
- History of Present Illness Time Seen by Provider: 12/08/23 12:54 Source: patient Exam Limitations: clinical condition Patient Subjective Stated Complaint: PT states "I am having a migraine and it is a bad one." Triage Nursing Assessment: Pt presented alert and oriented X 3, skin pwd. PT ambulates with a slow gait, able to speak in clear full sentences. PT resting comfortably on the bed. Physician History: This is a 68-year-old white female patient who arrives with acute exacerbation of her migraine headache by private vehicle and is a patient of Dr. Henderson. Patient states that she does have a ride home. Patient's headache is global in location. It is aching and throbbing. It is not the worst headache she is ever had. Patient had a normal CT scan of her head here at our facility on 07/21/2023. Since that time she has had normal CT scans and MRI as recent as October 2023 and does not want repeat CT scan or MRI of her head. Patient denies any traumatic injury. Patient woke up this morning and the migraine headache has worsened throughout the morning. Patient states the combination of morphine, Benadryl and an antiemetic helps and resolving her migraine headache. Patient has a history of hypothyroidism, anxiety, panic disorder, depression, gastroesophageal reflux disease, hyperlipidemia, TIAs, migraine headaches, and COPD. Patient walked back to the emergency department room on her own from the waiting room Timing/Duration: today Quality: aching, throbbing Head Pain Location: global Severity of Pain-Max: moderate Severity of Pain-Current: moderate Recent Head Trauma: chronic headaches Modifying Factors: Improves With: exposure to light, noise Associated Symptoms: nausea/vomiting, sensitive to light, No vision changes Previous symptoms: same symptoms as today, no recent treatment Allergies/Adverse Reactions: sumatriptan [From Imitrex] Allergy (Intermediate, Verified 11/06/23 09:23) Rash codeine Allergy (Mild, Verified 11/06/23 09:23) Rash MAKES SICK nitrofurantoin [From Macrobid] Allergy (Unknown, Verified 11/06/23 09:23) sulfamethoxazole [From Bactrim] Allergy (Unknown, Verified 11/06/23 09:23) trimethoprim [From Bactrim] Allergy (Unknown, Verified 11/06/23 09:23) sumatriptan succinate [From Imitrex] Allergy (Verified 11/06/23 09:23) morphine Adverse Reaction (Severe, Verified 11/06/23 09:23) Headache MIGRAINES fentanyl Adverse Reaction (Intermediate, Verified 11/06/23 09:23) Headache hydrocodone bitartrate [From Vicodin] Adverse Reaction (Mild, Verified 11/06/23 09:23) Vomiting hydromorphone [From Dilaudid] Adverse Reaction (Mild, Verified 11/06/23 09:23) pt states makes headache worse. Home Medications: ALPRAZolam 1 MG [Xanax 1 mg] 1 mg PO TID 02/17/13 [History] Aspirin 81 mg PO DAILY 09/11/16 [History] Levothyroxine Sodium 50 Mcg [Synthroid 50 Mcg] 50 mcg PO DAILY 07/06/17 [History] Dexlansoprazole [Dexilant] 60 mg PO DAILY 01/21/20 [History] Albuterol 2.5 mg/3 ml Neb [Proventil 2.5 mg/3 ml Neb] 2.5 mg IH QID 07/23/20 [History] dilTIAZem HCL [Diltiazem 24Hr ER (Cd)] 120 mg PO DAILY 09/29/21 [History] Promethazine HCl 25 mg [Phenergan 25 mg] 25 mg PO BIDPRN PRN 01/18/22 [History] Apixaban [Eliquis] 5 mg PO BID 07/02/22 [History] Fluticasone/Umeclidin/Vilanter [Trelegy Ellipta 200-62.5-25] 1 each IH DAILY 07/02/22 [History] Cetirizine HCl [Zyrtec] 1 tab PO DAILY 11/08/22 [History] Magnesium Oxide 400 mg [Mag-Ox 400] 1 tab PO DAILY 11/08/22 [History] Sodium Bicarbonate 2 tab PO TID 11/08/22 [History] Omeprazole/Sodium Bicarbonate [Omeprazole-Bicarb 40-1,100 Cap] 1 each PO HS 11/28/22 [History] Atorvastatin Calcium [Lipitor 40Mg] 40 mg PO DAILY 03/09/23 [History] Tenapanor HCl [Ibsrela] 50 mg PO BID 05/05/23 [History] Ubrogepant [Ubrelvy] 100 mg PO DAILY PRN 05/05/23 [History] Hx Tetanus, Diphtheria Vaccination/Date Given: No Hx Influenza Vaccination/Date Given: Yes Hx Pneumococcal Vaccination/Date Given: Yes Immunizations Up to Date: No Travel Risk - International Travel Have you traveled outside of the country in past 3 weeks: No - Emerging Infectious Disease Are you exhibiting symptoms associated with any current EIDs: No - Review of Systems Constitutional: No Symptoms Eyes: No Symptoms Ears, Nose, & Throat: No Symptoms Respiratory: No Symptoms Cardiac: No Symptoms Abdominal/Gastrointestinal: Nausea, Vomiting, Appetite Changes, No Abdominal Pain, No Diarrhea, No Constipation Genitourinary Symptoms: No Symptoms Musculoskeletal: No Symptoms Skin: No Symptoms Neurological: No Symptoms Psychological: No Symptoms Endocrine: No Symptoms Hematologic/Lymphatic: No Symptoms Immunological/Allergic: No Symptoms All Other Systems: Reviewed and Negative - Past Medical History Pertinent Past Medical History: Yes Neurological History: Migraines, TIA ENT History: Cataracts Cardiac History: High Cholesterol Respiratory History: Bronchitis, COPD, Pneumonia, Pulmonary Embolism Endocrine Medical History: Hypothyroidism Musculoskeletal History: Osteoarthritis GI Medical History: GERD, Gallbladder Disease, Other History: Other Psycho-Social History: Anxiety, Depression, Panic Disorder Female Reproductive Disorders: No Pertinent History Other Medical History: frequent uti's, chronic pseudo obstruction, blood clot, partial bowel blockage. septic in august 2023. post a cath replaced 10/15/23 - Past Surgical History Past Surgical History: Yes Neuro Surgical History: No Pertinent History Cardiac: No Pertinent History Respiratory: No Pertinent History Gastrointestinal: Cholecystectomy, Other Genitourinary: No Pertinent History Musculoskeletal: No Pertinent History Female Surgical History: Hysterectomy Other Surgical History: all of large intestine removed and most of small intestines removed, feeding tube in 2004 removed in 2007. Significant Family History: no pertinent family hx - Social History Smoking Status: Never smoker Exposure to second hand smoke: No Alcohol Use: None Drug Use: none Patient Lives Alone: Yes - Social Determinants of Health Will the patient participate in the screening: Yes Do you worry about a steady place to live?: No Do you have any problems with any of the following?: No known problems In the past 12 months,have you had to go without utilities?: No Transportation Issues: No Has anyone in your support network made you feel unsafe?: No Have you or anyone in your house had to go without enough: No - Nursing Vital Signs Nursing Vital Signs: Initial Vital Signs Temperature 97.4 F 12/08/23 12:49 Pulse Rate 106 H 12/08/23 12:49 Respiratory Rate 18 12/08/23 12:49 Blood Pressure 130/77 12/08/23 12:49 O2 Sat by Pulse Oximetry 97 12/08/23 12:49 Pain Scale Pain Intensity 8 - Physical Exam General Appearance: no apparent distress, alert, anxiety Eye Exam: PERRL/EOMI, eyes nml inspection Ears, Nose, Throat Exam: normal ENT inspection, moist mucous membranes Neck Exam: normal inspection, non-tender, supple, full range of motion Respiratory Exam: normal breath sounds, lungs clear, No chest tenderness, No respiratory distress Cardiovascular Exam: regular rate/rhythm, normal heart sounds, normal peripheral pulses Gastrointestinal/Abdominal Exam: No tenderness Back Exam: normal inspection, normal range of motion, No CVA tenderness, No vertebral tenderness Extremity Exam: normal inspection, normal range of motion, pelvis stable 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, 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, 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: 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 hearing, normal speech, PERRL, tongue midline Coordination/Gait Exam: normal gait, normal cerebellar function Motor/Sensory Exam: no motor deficit, no sensory deficit Skin Exam: normal color, warm, dry Lymphatic Exam: No adenopathy SpO2 Interpretation: normal SpO2: 97 O2 Delivery: Room Air - Progress Progress: improved, re-examined Air Movement: good Progress Note: 12/08/23 13:19 My medical decision making and the assignment of low complexity to this patient's medical issue today is based on review of the patient's past medical history, review of the patient's medication list, reviewed patient drug allergy list, history present illness and physical findings on examination. No radiographic or laboratory studies are necessary in this workup. The patient specifically said this is just a bad migraine headache. It is not the worst headache she has ever had. She also states that the combination of medications that work well for her her morphine, Benadryl and an antiemetic. Patient does take promethazine at home. We will provide her with Compazine as the antiemetic. Patient states that she does not have a problem taking or using morphine for pain control. We we will be removing this from the patient's allergy list. It was never a true allergy but caused a headache per her report. Blood Culture(s) Obtained: No Antibiotics given: No Counseled pt/family regarding: diagnosis, need for follow-up - Departure Departure Disposition: Home Clinical Impression: Migraine headache Condition: Stable Critical Care Time: No Referrals: MARQUISE HENDERSON DO [Primary Care Provider] - Follow up/PCP as directed Additional Instructions: Take all your medications as prescribed. Call your primary prescribing provider today, 12/08/2023, to make arranges for follow-up appointment for further evaluation and management.
[2023-12-08] MEDS ORDERED: BENADRYL 50 MG/ML ONE (13:24)
[2023-12-08] MEDS ORDERED: Compazine 10 MG/2 ML ONE (13:24)
[2023-12-08] MEDS ORDERED: MORPHINE SULFATE 2 MG INJ ONE (13:24)
[2023-12-08] MEDS: MORPHINE SULFATE 2 MG INJ IM ONE (13:29)
[2023-12-08] MEDS: Compazine 10 MG/2 ML IM ONE (13:30)
[2023-12-08] MEDS: BENADRYL 50 MG/ML IM ONE (13:31)
[2023-12-08 13:51] VITALS: BP 120/68; PULSE 92; RESP 20; O2SAT 98
== END 2023-12-08 14:03 | disposition home or self-care (01) ==
LOC: ED 12:43
DX: G43.909 Migraine, unspecified, not intractable, without status migrainosus (principal); E78.5 Hyperlipidemia, unspecified; Z79.01 Long term (current) use of anticoagulants; Z79.899 Other long term (current) drug therapy
CPT/HCPCS: 96372; 99283; J1200; J2270

== ENCOUNTER 2023-12-11 18:43 | Emergency (ER) | payer MEDICARE ==
[2023-12-11 21:35] VITALS: BP 104/72; PULSE 94; RESP 18; TEMP 98.1; O2SAT 97
--- NOTE | 2023-12-11 21:43 | ERPHSYRPT ---
- History of Present Illness Source: patient, curb hop Exam Limitations: no limitations Patient Subjective Stated Complaint: pt states she has a migraine since yesterday and her medication is not helping Triage Nursing Assessment: pt alert and oriented, answers questions approp. pt ambulates to room with steady gait noted. respirations nonlabored. skin warm and dry. pupils equal and reactive. pt moves extremeties without dif Physician History: Patient had a migraine for about 24 hours. She describes it as throbbing and unilateral. She has photophobia and sonophobia. She has had a history of chronic migraines. She gets them once or twice a week. She has a referral to neurology. She says this feels like her typical headaches. She has been on Ubrelvy and it is not helping. Light and sound make the symptoms worse. Resting in a dark room makes it better. She does not have any focal neurological deficits. There is no acute onset or thunderclap. Does not this is the worst headache of her life. She has no neurological symptoms with this. Timing/Duration: yesterday Allergies/Adverse Reactions: sumatriptan [From Imitrex] Allergy (Intermediate, Verified 11/06/23 09:23) Rash codeine Allergy (Mild, Verified 11/06/23 09:23) Rash MAKES SICK nitrofurantoin [From Macrobid] Allergy (Unknown, Verified 11/06/23 09:23) sulfamethoxazole [From Bactrim] Allergy (Unknown, Verified 11/06/23 09:23) trimethoprim [From Bactrim] Allergy (Unknown, Verified 11/06/23 09:23) sumatriptan succinate [From Imitrex] Allergy (Verified 11/06/23 09:23) fentanyl Adverse Reaction (Intermediate, Verified 11/06/23 09:23) Headache hydrocodone bitartrate [From Vicodin] Adverse Reaction (Mild, Verified 11/06/23 09:23) Vomiting hydromorphone [From Dilaudid] Adverse Reaction (Mild, Verified 11/06/23 09:23) pt states makes headache worse. Home Medications: ALPRAZolam 1 MG [Xanax 1 mg] 1 mg PO TID 02/17/13 [History] Aspirin 81 mg PO DAILY 09/11/16 [History] Levothyroxine Sodium 50 Mcg [Synthroid 50 Mcg] 50 mcg PO DAILY 07/06/17 [History] Dexlansoprazole [Dexilant] 60 mg PO DAILY 01/21/20 [History] Albuterol 2.5 mg/3 ml Neb [Proventil 2.5 mg/3 ml Neb] 2.5 mg IH QID 07/23/20 [History] dilTIAZem HCL [Diltiazem 24Hr ER (Cd)] 120 mg PO DAILY 09/29/21 [History] Promethazine HCl 25 mg [Phenergan 25 mg] 25 mg PO BIDPRN PRN 01/18/22 [History] Apixaban [Eliquis] 5 mg PO BID 07/02/22 [History] Fluticasone/Umeclidin/Vilanter [Trelegy Ellipta 200-62.5-25] 1 each IH DAILY 07/02/22 [History] Cetirizine HCl [Zyrtec] 1 tab PO DAILY 11/08/22 [History] Magnesium Oxide 400 mg [Mag-Ox 400] 1 tab PO DAILY 11/08/22 [History] Sodium Bicarbonate 2 tab PO TID 11/08/22 [History] Omeprazole/Sodium Bicarbonate [Omeprazole-Bicarb 40-1,100 Cap] 1 each PO HS 11/28/22 [History] Atorvastatin Calcium [Lipitor 40Mg] 40 mg PO DAILY 03/09/23 [History] Tenapanor HCl [Ibsrela] 50 mg PO BID 05/05/23 [History] Ubrogepant [Ubrelvy] 100 mg PO DAILY PRN 05/05/23 [History] Hx Tetanus, Diphtheria Vaccination/Date Given: No Hx Influenza Vaccination/Date Given: Yes Hx Pneumococcal Vaccination/Date Given: Yes Immunizations Up to Date: No Travel Risk - International Travel Have you traveled outside of the country in past 3 weeks: No - Emerging Infectious Disease Are you exhibiting symptoms associated with any current EIDs: No - Review of Systems Constitutional: No Symptoms Eyes: No Symptoms Ears, Nose, & Throat: No Symptoms Respiratory: No Symptoms Cardiac: No Symptoms Neurological: No Symptoms All Other Systems: Reviewed and Negative - Past Medical History Pertinent Past Medical History: Yes Neurological History: Migraines, TIA ENT History: Cataracts Cardiac History: High Cholesterol Respiratory History: Bronchitis, COPD, Pneumonia, Pulmonary Embolism Endocrine Medical History: Hypothyroidism Musculoskeletal History: Osteoarthritis GI Medical History: GERD, Gallbladder Disease, Other History: Other Psycho-Social History: Anxiety, Depression, Panic Disorder Female Reproductive Disorders: No Pertinent History Other Medical History: frequent uti's, chronic pseudo obstruction, blood clot, partial bowel blockage. septic in august 2023. post a cath replaced 10/15/23 - Past Surgical History Past Surgical History: Yes Neuro Surgical History: No Pertinent History Cardiac: No Pertinent History Respiratory: No Pertinent History Gastrointestinal: Cholecystectomy, Other Genitourinary: No Pertinent History Musculoskeletal: No Pertinent History Female Surgical History: Hysterectomy Other Surgical History: all of large intestine removed and most of small intestines removed, feeding tube in 2004 removed in 2007. Significant Family History: no pertinent family hx - Social History Smoking Status: Never smoker Exposure to second hand smoke: No Alcohol Use: None Drug Use: none Patient Lives Alone: Yes - Social Determinants of Health Will the patient participate in the screening: Yes Do you worry about a steady place to live?: No Do you have any problems with any of the following?: No known problems In the past 12 months,have you had to go without utilities?: No Transportation Issues: No Has anyone in your support network made you feel unsafe?: No Have you or anyone in your house had to go without enough: No - Nursing Vital Signs Nursing Vital Signs: Initial Vital Signs Temperature 98.1 F 12/11/23 21:24 Pulse Rate 94 H 12/11/23 21:24 Respiratory Rate 18 12/11/23 21:24 Blood Pressure 104/72 12/11/23 21:24 O2 Sat by Pulse Oximetry 97 12/11/23 21:24 Pain Scale Pain Intensity 10 - Physical Exam General Appearance: no apparent distress Eye Exam: PERRL/EOMI Ears, Nose, Throat Exam: normal ENT inspection Neck Exam: normal inspection Respiratory Exam: normal breath sounds, chest tenderness, lungs clear, No respiratory distress Cardiovascular Exam: regular rate/rhythm 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, 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, 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: normal hearing, normal speech, PERRL Motor/Sensory Exam: no motor deficit, no sensory deficit Skin Exam: normal color SpO2: 97 - Course Nursing assessment & vital signs reviewed: Yes Ordered Tests: Medication Summary Generic Name Dose Route Start Last Admin Trade Name Freq PRN Reason Stop Dose Admin Prochlorperazine Edisylate 10 mg 12/11/23 21:27 12/11/23 22:23 Prochlorperazine Edisylate 10 Mg/2 Ml Vial IM 01/10/24 21:26 10 mg Q6H PRN PRN Administration NAUSEA/VOMITING Discontinued Medications Generic Name Dose Route Start Last Admin Trade Name Freq PRN Reason Stop Dose Admin Diphenhydramine HCl 25 mg 12/11/23 21:27 12/11/23 22:24 Diphenhydramine Hcl 50 Mg/Ml Vial IM 12/11/23 21:28 25 mg STAT ONE Administration Diphenhydramine HCl Confirm 12/11/23 22:14 Diphenhydramine Hcl 50 Mg/Ml Vial Administered 12/11/23 22:15 Dose 50 mg .ROUTE .STK-MED ONE Morphine Sulfate 6 mg 12/11/23 21:27 12/11/23 22:24 Morphine Sulfate 10 Mg/Ml Injection IM 12/11/23 21:28 6 mg STAT ONE Administration Morphine Sulfate Confirm 12/11/23 22:15 Morphine Sulfate 10 Mg/Ml Injection Administered 12/11/23 22:16 Dose 10 mg .ROUTE .STK-MED ONE - Progress Progress: improved Progress Note: The patient is been here before. She has gotten morphine Benadryl and Compazine in the past here recently and says that that helps. On the differential was migraine, tension headache, subarachnoid hemorrhage. Her history does not sound like subarachnoid hemorrhage. It sound like her classical migraines. I am going to give her the medications mentioned above. She responded well. She is ready for discharge 12/11/23 21:42 Medical Desision Making - Social Determinants of Health Pt's dx & treatment plan are significantly limited by SDOH: limited education - Diagnostic Testing Diagnostic test were ordered, analyzed, and reviewed by me: No - Risk of complications Minimal Risk: Minimal risk of morbidity - Departure Departure Disposition: Home Clinical Impression: Migraine headache Condition: Stable Critical Care Time: No Referrals: MARQUISE HENDERSON DO [Primary Care Provider] - Follow up/PCP as directed Instructions: Headache, Adult (DC)
[2023-12-11] MEDS ORDERED: BENADRYL 50 MG/ML ONE (22:14)
[2023-12-11] MEDS ORDERED: Compazine 10 MG/2 ML ONE (22:15)
[2023-12-11] MEDS ORDERED: MORPHINE SULFATE 10 MG/ML ONE (22:15)
[2023-12-11] MEDS: Compazine 10 MG/2 ML IM PRN (22:23)
[2023-12-11] MEDS: MORPHINE SULFATE 10 MG/ML IM ONE (22:24)
[2023-12-11] MEDS: BENADRYL 50 MG/ML IM ONE (22:24)
== END 2023-12-11 23:08 | disposition home or self-care (01) ==
LOC: ED 18:43
DX: G43.909 Migraine, unspecified, not intractable, without status migrainosus (principal); E78.5 Hyperlipidemia, unspecified; Z79.01 Long term (current) use of anticoagulants; Z79.899 Other long term (current) drug therapy; Z55.9 Problems related to education and literacy, unspecified
CPT/HCPCS: 96372; 99283; J1200; J2270

== ENCOUNTER 2023-12-18 18:18 | Emergency (ER) | payer MEDICARE, OTHER ==
--- NOTE | 2023-12-18 18:26 | ERPHSYRPT ---
- History of Present Illness Time Seen by Provider: 12/18/23 18:26 Source: patient Exam Limitations: no limitations Physician History: This is a 68-year-old white female patient that arrives by private vehicle and is a patient of Dr. Henderson who presents with migraine headache that is not improving after her using her outpatient antimigraine headache medication. Patient denies head injury. Per patient report, patient had a normal/negative MRI scan of her head in October 2023 and does not want to repeat CT scan of her head. Since October 07, 2023, patient has had 7 visits to our emergency department secondary to migraine headaches. Her headache is described as global in location and is achy and throbbing. It is not the worst headache she has ever had. Patient states that the combination of intramuscular morphine, Benadryl and an antiemetic is helpful in relieving her acute exacerbation of chronic migraine headaches. Patient has a history of hypothyroidism, anxiety, panic disorder, depression, gastroesophageal reflux disease, TIAs, hyperlipidemia and COPD. Patient is unsure if she is ever seen a neurologist before for treatment of and control of migraine headaches. Timing/Duration: today Head Pain Location: global Severity of Pain-Max: moderate Severity of Pain-Current: moderate Recent Head Trauma: no recent headache/trauma, frequent headaches Modifying Factors: Improves With: exposure to light, noise Associated Symptoms: nausea/vomiting, No fever/chills, No loss of consciousness, No neck pain, No vision changes, No visual disturbance Previous symptoms: same symptoms as today, recently seen, recently treated Allergies/Adverse Reactions: sumatriptan [From Imitrex] Allergy (Intermediate, Verified 12/18/23 18:29) Rash codeine Allergy (Mild, Verified 12/18/23 18:29) Rash MAKES SICK nitrofurantoin [From Macrobid] Allergy (Unknown, Verified 12/18/23 18:29) sulfamethoxazole [From Bactrim] Allergy (Unknown, Verified 12/18/23 18:29) trimethoprim [From Bactrim] Allergy (Unknown, Verified 12/18/23 18:29) sumatriptan succinate [From Imitrex] Allergy (Verified 12/18/23 18:29) fentanyl Adverse Reaction (Intermediate, Verified 12/18/23 18:29) Headache hydrocodone bitartrate [From Vicodin] Adverse Reaction (Mild, Verified 12/18/23 18:29) Vomiting hydromorphone [From Dilaudid] Adverse Reaction (Mild, Verified 12/18/23 18:29) pt states makes headache worse. Home Medications: ALPRAZolam 1 MG [Xanax 1 mg] 1 mg PO TID 02/17/13 [History] Aspirin 81 mg PO DAILY 09/11/16 [History] Levothyroxine Sodium 50 Mcg [Synthroid 50 Mcg] 50 mcg PO DAILY 07/06/17 [History] Dexlansoprazole [Dexilant] 60 mg PO DAILY 01/21/20 [History] Albuterol 2.5 mg/3 ml Neb [Proventil 2.5 mg/3 ml Neb] 2.5 mg IH QID 07/23/20 [History] dilTIAZem HCL [Diltiazem 24Hr ER (Cd)] 120 mg PO DAILY 09/29/21 [History] Promethazine HCl 25 mg [Phenergan 25 mg] 25 mg PO BIDPRN PRN 01/18/22 [History] Apixaban [Eliquis] 5 mg PO BID 07/02/22 [History] Fluticasone/Umeclidin/Vilanter [Trelegy Ellipta 200-62.5-25] 1 each IH DAILY 07/02/22 [History] Cetirizine HCl [Zyrtec] 1 tab PO DAILY 11/08/22 [History] Magnesium Oxide 400 mg [Mag-Ox 400] 1 tab PO DAILY 11/08/22 [History] Sodium Bicarbonate 2 tab PO TID 11/08/22 [History] Omeprazole/Sodium Bicarbonate [Omeprazole-Bicarb 40-1,100 Cap] 1 each PO HS 11/28/22 [History] Atorvastatin Calcium [Lipitor 40Mg] 40 mg PO DAILY 03/09/23 [History] Tenapanor HCl [Ibsrela] 50 mg PO BID 05/05/23 [History] Ubrogepant [Ubrelvy] 100 mg PO DAILY PRN 05/05/23 [History] Hx Tetanus, Diphtheria Vaccination/Date Given: No Hx Influenza Vaccination/Date Given: Yes Hx Pneumococcal Vaccination/Date Given: Yes Travel Risk - International Travel Have you traveled outside of the country in past 3 weeks: No - Emerging Infectious Disease Are you exhibiting symptoms associated with any current EIDs: No - Review of Systems Constitutional: No Symptoms Eyes: No Symptoms Ears, Nose, & Throat: No Symptoms Respiratory: No Symptoms Cardiac: No Symptoms Abdominal/Gastrointestinal: Nausea, Vomiting, No Abdominal Pain, No Diarrhea, No Constipation Genitourinary Symptoms: No Symptoms Musculoskeletal: No Symptoms Skin: No Symptoms Neurological: Headache Psychological: No Symptoms Endocrine: No Symptoms Hematologic/Lymphatic: No Symptoms Immunological/Allergic: No Symptoms All Other Systems: Reviewed and Negative - Past Medical History Pertinent Past Medical History: Yes Neurological History: Migraines, TIA ENT History: Cataracts Cardiac History: High Cholesterol Respiratory History: Bronchitis, COPD, Pneumonia, Pulmonary Embolism Endocrine Medical History: Hypothyroidism Musculoskeletal History: Osteoarthritis GI Medical History: GERD, Gallbladder Disease, Other History: Other Psycho-Social History: Anxiety, Depression, Panic Disorder Female Reproductive Disorders: No Pertinent History Other Medical History: frequent uti's, chronic pseudo obstruction, blood clot, partial bowel blockage. septic in august 2023. post a cath replaced 10/15/23 - Past Surgical History Past Surgical History: Yes Neuro Surgical History: No Pertinent History Cardiac: No Pertinent History Respiratory: No Pertinent History Gastrointestinal: Cholecystectomy, Other Genitourinary: No Pertinent History Musculoskeletal: No Pertinent History Female Surgical History: Hysterectomy Other Surgical History: all of large intestine removed and most of small intestines removed, feeding tube in 2004 removed in 2007. Significant Family History: no pertinent family hx - Social History Smoking Status: Never smoker Exposure to second hand smoke: No Alcohol Use: None Drug Use: none Patient Lives Alone: Yes - Social Determinants of Health Will the patient participate in the screening: Yes Do you worry about a steady place to live?: No In the past 12 months,have you had to go without utilities?: No Transportation Issues: No Has anyone in your support network made you feel unsafe?: No Have you or anyone in your house had to go without enough: No - Nursing Vital Signs Nursing Vital Signs: Initial Vital Signs Temperature 96.8 F 12/18/23 18:33 Pulse Rate 87 12/18/23 18:33 Respiratory Rate 20 12/18/23 18:33 Blood Pressure 122/78 12/18/23 18:33 O2 Sat by Pulse Oximetry 94 L 12/18/23 18:33 Pain Scale Pain Intensity 10 - Physical Exam General Appearance: mild distress, alert, anxiety, obese Eye Exam: PERRL/EOMI, eyes nml inspection Ears, Nose, Throat Exam: normal ENT inspection, moist mucous membranes Neck Exam: normal inspection, non-tender, supple, full range of motion Respiratory Exam: airway intact, No chest tenderness, No respiratory distress Gastrointestinal/Abdominal Exam: No tenderness Back Exam: normal inspection, normal range of motion, No CVA tenderness, No vertebral tenderness Extremity Exam: normal inspection, normal range of motion, pelvis stable 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, 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, 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 Exam: normal hearing, normal speech, PERRL, tongue midline Coordination/Gait Exam: normal gait, normal cerebellar function Motor/Sensory Exam: no motor deficit, no sensory deficit Skin Exam: normal color, warm, dry Lymphatic Exam: No adenopathy SpO2 Interpretation: normal O2 Delivery: Room Air - Course Nursing assessment & vital signs reviewed: Yes Ordered Tests: Medication Summary Discontinued Medications Generic Name Dose Route Start Last Admin Trade Name Elton PRN Reason Stop Dose Admin Diphenhydramine HCl 50 mg 12/18/23 18:50 Diphenhydramine Hcl 50 Mg/Ml Vial IM 12/18/23 18:51 STAT ONE Morphine Sulfate 4 mg 12/18/23 18:51 Morphine Sulfate 4 Mg/Ml Injection IM 12/18/23 18:52 STAT ONE Prochlorperazine Edisylate 5 mg 12/18/23 18:50 Prochlorperazine Edisylate 10 Mg/2 Ml Vial IM 12/18/23 18:51 STAT ONE - Progress Progress: improved Air Movement: good Progress Note: 12/18/23 18:57 My medical decision making of the assignment of low complexity to this patient's medical issue today is based on review of the patient's past medical history, review of the patient's medication list, reviewed patient drug allergy list, history present illness and physical findings on examination. The workup does not require any radiographic or laboratory studies. Patient states the migraine headache is typical for her. It is not the worst headache she has ever had. This patient has been seen several times over the last 2-1/2 months in our emergency department for the same issue. It does not appear she has ever seen a neurologist to help control her migraine headaches. I discussed with her the benefit of an ACO nurse that we will contact her in order to help arrange or expedite arrangements to see a neurologist for further evaluation and management of her frequent migraine headaches. Blood Culture(s) Obtained: No Antibiotics given: No Counseled pt/family regarding: diagnosis, need for follow-up Medical Desision Making - Diagnostic Testing Diagnostic test were ordered, analyzed, and reviewed by me: No - Risk of complications Minimal Risk: Minimal risk of morbidity - Departure Departure Disposition: Home Clinical Impression: Migraine headache Condition: Stable Critical Care Time: No Referrals: MARQUISE HENDERSON DO [Primary Care Provider] - Follow up/PCP as directed Additional Instructions: Continue your medications as prescribed. Call your primary care provider on 12/20/2023, to make arranges for follow-up appointment and for a referral to a neurologist who will specifically address your migraine headache issues. Expect a phone call from our ACO nurse to help expedite and/or arrange an appointment to see a neurologist to address your migraine headache issues.
[2023-12-18 18:43] VITALS: BP 122/78; PULSE 87; RESP 20; TEMP 96.8; O2SAT 94
[2023-12-18] MEDS ORDERED: BENADRYL 50 MG/ML ONE (19:09)
[2023-12-18] MEDS ORDERED: MORPHINE SULFATE 4 MG INJ ONE (19:09)
[2023-12-18] MEDS ORDERED: Compazine 10 MG/2 ML ONE (19:09)
[2023-12-18] MEDS: Compazine 10 MG/2 ML IM ONE (19:10)
[2023-12-18] MEDS: MORPHINE SULFATE 4 MG INJ IM ONE (19:11)
[2023-12-18] MEDS: BENADRYL 50 MG/ML IM ONE (19:11)
== END 2023-12-18 19:25 | disposition home or self-care (01) ==
LOC: ED 18:18
DX: G43.909 Migraine, unspecified, not intractable, without status migrainosus (principal); E78.5 Hyperlipidemia, unspecified; Z79.01 Long term (current) use of anticoagulants; Z79.899 Other long term (current) drug therapy
CPT/HCPCS: 96372; 99283; J1200; J2270

== ENCOUNTER 2024-01-06 18:02 | Emergency (ER) | payer MEDICARE, OTHER ==
[2024-01-06 18:53] VITALS: BP 150/96; PULSE 89; RESP 18; TEMP 98.2; O2SAT 98
[2024-01-06] MEDS ORDERED: BENADRYL 50 MG/ML ONE (19:05)
[2024-01-06] MEDS ORDERED: ZOFRAN ODT 4 MG ONE (19:05)
[2024-01-06] MEDS ORDERED: TYLENOL 325 MG ONE (19:06)
[2024-01-06] MEDS ORDERED: MORPHINE SULFATE 4 MG INJ ONE (19:06)
[2024-01-06] MEDS: BENADRYL 50 MG/ML IM ONE (19:09)
[2024-01-06] MEDS: MORPHINE SULFATE 4 MG INJ IM ONE (19:10)
[2024-01-06] MEDS: TYLENOL 325 MG PO ONE (19:11)
[2024-01-06] MEDS: ZOFRAN ODT 4 MG PO ONE (19:12)
--- NOTE | 2024-01-06 19:45 | ERPHSYRPT ---
- History of Present Illness Time Seen by Provider: 01/06/24 18:07 Source: patient Exam Limitations: no limitations Patient Subjective Stated Complaint: C/O headache that started this am Triage Nursing Assessment: Patient ambulated back to ER. She is alert and oriented but anxious with excessive movements to BUE in room. She states she forgot to take her anxiety medication today. No SOB. Wearing sunglasses. Physician History: 68 years old female with multiple medical problems including hypertension, hyperlipidemia, TIAs, poorly controlled migraine, respiratory failure on oxygen, on Eliquis for PE presented to the ER with complains of frontal headache. Patient reports she had appointment with her hematology/oncology and had to take off her glasses, exposed to bright light which triggered her headache. Has aurelio en her routine meds with no significant relief. Reports nausea and 1-2 episodes of nonprojectile, nonbilious vomiting. Headache is similar to previous and does not think this is the worst headache of her life. No neck pain or difficulty movements of neck/neck rigidity. No fever or chills reported. Denies any visual disturbance Allergies/Adverse Reactions: sumatriptan [From Imitrex] Allergy (Intermediate, Verified 01/06/24 18:44) Rash codeine Allergy (Mild, Verified 01/06/24 18:44) Rash MAKES SICK nitrofurantoin [From Macrobid] Allergy (Unknown, Verified 01/06/24 18:44) sulfamethoxazole [From Bactrim] Allergy (Unknown, Verified 01/06/24 18:44) trimethoprim [From Bactrim] Allergy (Unknown, Verified 01/06/24 18:44) sumatriptan succinate [From Imitrex] Allergy (Verified 01/06/24 18:44) fentanyl Adverse Reaction (Intermediate, Verified 01/06/24 18:44) Headache hydrocodone bitartrate [From Vicodin] Adverse Reaction (Mild, Verified 01/06/24 18:44) Vomiting hydromorphone [From Dilaudid] Adverse Reaction (Mild, Verified 01/06/24 18:44) pt states makes headache worse. Home Medications: ALPRAZolam 1 MG [Xanax 1 mg] 1 mg PO TID 02/17/13 [History] Aspirin 81 mg PO DAILY 09/11/16 [History] Levothyroxine Sodium 50 Mcg [Synthroid 50 Mcg] 50 mcg PO DAILY 07/06/17 [History] Dexlansoprazole [Dexilant] 60 mg PO DAILY 01/21/20 [History] Albuterol 2.5 mg/3 ml Neb [Proventil 2.5 mg/3 ml Neb] 2.5 mg IH QID 07/23/20 [History] dilTIAZem HCL [Diltiazem 24Hr ER (Cd)] 120 mg PO DAILY 09/29/21 [History] Promethazine HCl 25 mg [Phenergan 25 mg] 25 mg PO BIDPRN PRN 01/18/22 [History] Apixaban [Eliquis] 5 mg PO BID 07/02/22 [History] Fluticasone/Umeclidin/Vilanter [Trelegy Ellipta 200-62.5-25] 1 each IH DAILY 07/02/22 [History] Cetirizine HCl [Zyrtec] 1 tab PO DAILY 11/08/22 [History] Magnesium Oxide 400 mg [Mag-Ox 400] 1 tab PO DAILY 11/08/22 [History] Sodium Bicarbonate 2 tab PO TID 11/08/22 [History] Omeprazole/Sodium Bicarbonate [Omeprazole-Bicarb 40-1,100 Cap] 1 each PO HS 11/28/22 [History] Atorvastatin Calcium [Lipitor 40Mg] 40 mg PO DAILY 03/09/23 [History] Tenapanor HCl [Ibsrela] 50 mg PO BID 05/05/23 [History] Ubrogepant [Ubrelvy] 100 mg PO DAILY PRN 05/05/23 [History] Hx Tetanus, Diphtheria Vaccination/Date Given: Yes Hx Influenza Vaccination/Date Given: Yes Hx Pneumococcal Vaccination/Date Given: Yes Immunizations Up to Date: Yes Travel Risk - International Travel Have you traveled outside of the country in past 3 weeks: No - Emerging Infectious Disease Are you exhibiting symptoms associated with any current EIDs: No - Review of Systems Constitutional: No Symptoms Eyes: Photophobia Ears, Nose, & Throat: No Symptoms Respiratory: No Symptoms Cardiac: No Symptoms Abdominal/Gastrointestinal: Nausea, Vomiting Musculoskeletal: Arthralgias, Myalgias Skin: No Symptoms Neurological: Headache Endocrine: No Symptoms - Past Medical History Pertinent Past Medical History: Yes Neurological History: Migraines, TIA ENT History: Cataracts Cardiac History: High Cholesterol Respiratory History: Bronchitis, COPD, Pneumonia, Pulmonary Embolism Endocrine Medical History: Hypothyroidism Musculoskeletal History: Osteoarthritis GI Medical History: GERD, Gallbladder Disease, Other History: Other Psycho-Social History: Anxiety, Depression, Panic Disorder Female Reproductive Disorders: No Pertinent History Other Medical History: frequent uti's, chronic pseudo obstruction, blood clot, partial bowel blockage. septic in august 2023. post a cath replaced 10/15/23 - Past Surgical History Past Surgical History: Yes Neuro Surgical History: No Pertinent History Cardiac: No Pertinent History Respiratory: No Pertinent History Gastrointestinal: Cholecystectomy, Other Genitourinary: No Pertinent History Musculoskeletal: No Pertinent History Female Surgical History: Hysterectomy Other Surgical History: all of large intestine removed and most of small intestines removed, feeding tube in 2004 removed in 2007. Significant Family History: no pertinent family hx - Social History Smoking Status: Never smoker Exposure to second hand smoke: No Alcohol Use: None Drug Use: none Patient Lives Alone: Yes - Social Determinants of Health Will the patient participate in the screening: Yes Do you worry about a steady place to live?: No Do you have any problems with any of the following?: No known problems In the past 12 months,have you had to go without utilities?: No Transportation Issues: No Has anyone in your support network made you feel unsafe?: No Have you or anyone in your house had to go without enough: No - Nursing Vital Signs Nursing Vital Signs: Initial Vital Signs Temperature 98.2 F 01/06/24 18:35 Pulse Rate 89 01/06/24 18:35 Respiratory Rate 18 01/06/24 18:35 Blood Pressure 150/96 01/06/24 18:35 O2 Sat by Pulse Oximetry 98 01/06/24 18:35 Pain Scale Pain Intensity 10 - Physical Exam General Appearance: no apparent distress, alert Eye Exam: PERRL/EOMI Ears, Nose, Throat Exam: normal ENT inspection Neck Exam: normal inspection, full range of motion Respiratory Exam: normal breath sounds, lungs clear Cardiovascular Exam: regular rate/rhythm, normal heart sounds Gastrointestinal/Abdominal Exam: soft, No tenderness 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, 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, 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: normal hearing, normal speech, PERRL Coordination/Gait Exam: normal finger to nose, normal gait, normal cerebellar function Motor/Sensory Exam: no motor deficit, no sensory deficit, no pronator drift, negative Babinski's sign DTR Exam: bicep (R): 2+, bicep (L): 2+, knee (R): 2+, knee (L): 2+ Skin Exam: normal color SpO2 Interpretation: normal SpO2: 98 O2 Delivery: Room Air Ordered Tests: Medication Summary Discontinued Medications Generic Name Dose Route Start Last Admin Trade Name Elton PRN Reason Stop Dose Admin Acetaminophen 975 mg 01/06/24 18:49 01/06/24 19:11 Acetaminophen 325 Mg Tablet PO 01/06/24 18:50 975 mg STAT ONE Administration Acetaminophen Confirm 01/06/24 19:06 Acetaminophen 325 Mg Tablet Administered 01/06/24 19:07 Dose 975 mg .ROUTE .STK-MED ONE Diphenhydramine HCl 50 mg 01/06/24 18:49 01/06/24 19:09 Diphenhydramine Hcl 50 Mg/Ml Vial IM 01/06/24 18:50 50 mg STAT ONE Administration Diphenhydramine HCl Confirm 01/06/24 19:05 Diphenhydramine Hcl 50 Mg/Ml Vial Administered 01/06/24 19:06 Dose 50 mg .ROUTE .STK-MED ONE Morphine Sulfate 4 mg 01/06/24 18:49 01/06/24 19:10 Morphine Sulfate 4 Mg/Ml Injection IM 01/06/24 18:50 4 mg STAT ONE Administration Morphine Sulfate Confirm 01/06/24 19:06 Morphine Sulfate 4 Mg/Ml Injection Administered 01/06/24 19:07 Dose 4 mg .ROUTE .STK-MED ONE Ondansetron HCl 4 mg 01/06/24 18:49 01/06/24 19:12 Zofran 4 Mg/Udtablet Orally Disintegrating PO 01/06/24 18:50 4 mg STAT ONE Administration Ondansetron HCl Confirm 01/06/24 19:05 Zofran 4 Mg/Udtablet Orally Disintegrating Administered 01/06/24 19:06 Dose 4 mg .ROUTE .STK-MED ONE - Progress Progress: improved, re-examined Air Movement: good Progress Note: 01/06/24 19:45 68 years old with history of migraines poorly controlled is evaluated in the ER for frontal headache. Headache is similar to previous, triggered with bright light. Nonfocal neuroexam. No signs of meningismus. Given symptomatic treatment with Benadryl/Zofran and morphine, on reevaluation she is feeling much improved and wants to go home. I do not think patient needs imaging or any other workup and is being discharged with outpatient follow-up. Discussed signs symptoms of worsening needing return to ER which she seems understanding. Blood Culture(s) Obtained: No Antibiotics given: No Counseled pt/family regarding: diagnosis, need for follow-up Medical Desision Making - Risk of complications The pt has a mod risk of morbidity or mortality based on: Need for prescription drug management - Departure Departure Disposition: Home Clinical Impression: Migraine Qualifiers: Migraine type: unspecified Status migrainosus presence: without status migrainosus Intractability: not intractable Qualified Code(s): G43.909 - Migraine, unspecified, not intractable, without status migrainosus Condition: Stable Critical Care Time: No Referrals: MARQUISE HENDERSON DO [Primary Care Provider] - Follow up with PCP 1 day Instructions: Headache, Adult (DC) Additional Instructions: Follow-up with your primary care and neurology for reevaluation. Take your routine home medications for migraine. Return to ER for intractable headache/vomiting/numbness tingling weakness/visual disturbance etc.
== END 2024-01-06 19:54 | disposition home or self-care (01) ==
LOC: ED 18:02
DX: G43.909 Migraine, unspecified, not intractable, without status migrainosus (principal); R11.2 Nausea with vomiting, unspecified; I10 Essential (primary) hypertension; E78.5 Hyperlipidemia, unspecified; Z79.01 Long term (current) use of anticoagulants; Z79.899 Other long term (current) drug therapy
CPT/HCPCS: 96372; 99283; 99284; J1200; J2270; Q0162; A9270-GY

== ENCOUNTER 2024-01-13 18:27 | Emergency (ER) | payer MEDICARE, OTHER ==
[2024-01-13 19:02] VITALS: BP 112/80; PULSE 114; RESP 20; TEMP 97.2; O2SAT 98
--- NOTE | 2024-01-13 20:11 | ERPHSYRPT ---
- History of Present Illness Time Seen by Provider: 01/13/24 19:20 Source: patient Exam Limitations: no limitations Patient Subjective Stated Complaint: Headache Triage Nursing Assessment: Patient ambulated back to ED and transferred self to bed. Patient A+O X 3. Patient's skin pink, warm and dry. Patient wearing home O2 at 3 liters per n/c. Patient complains of migraine since yesterday 11/24 with N/V and light sensitivity. Physician History: This is a 68-year-old white female patient of Dr. Henderson who arrives by private vehicle because of a 10 out of 10 global recurrent headache. She denies any head trauma. She does have light sensitivity and significant nausea. She has not had a fever. She has no flulike symptoms. This patient has had 9 visits to the emergency department for headache complaints since October 07, 2023. She still has not seen her neurologist. She told me today that she has an appointment to see a neurologist on 01/21/2024. Patient has multiple medical issues including hypothyroidism, anxiety, panic disorder, depression, gastroesophageal reflux disease, TIAs, hyperlipidemia and COPD. Timing/Duration: today Quality: throbbing Head Pain Location: global Severity of Pain-Max: moderate Severity of Pain-Current: moderate Recent Head Trauma: no recent headache/trauma, frequent headaches, chronic headaches Modifying Factors: Improves With: exposure to light, noise Associated Symptoms: denies symptoms Previous symptoms: same symptoms as today, recently seen, recently treated Allergies/Adverse Reactions: sumatriptan [From Imitrex] Allergy (Intermediate, Verified 01/13/24 18:48) Rash codeine Allergy (Mild, Verified 01/13/24 18:48) Rash MAKES SICK nitrofurantoin [From Macrobid] Allergy (Unknown, Verified 01/13/24 18:48) sulfamethoxazole [From Bactrim] Allergy (Unknown, Verified 01/13/24 18:48) trimethoprim [From Bactrim] Allergy (Unknown, Verified 01/13/24 18:48) sumatriptan succinate [From Imitrex] Allergy (Verified 01/13/24 18:48) fentanyl Adverse Reaction (Intermediate, Verified 01/13/24 18:48) Headache hydrocodone bitartrate [From Vicodin] Adverse Reaction (Mild, Verified 01/13/24 18:48) Vomiting hydromorphone [From Dilaudid] Adverse Reaction (Mild, Verified 01/13/24 18:48) pt states makes headache worse. Home Medications: ALPRAZolam 1 MG [Xanax 1 mg] 1 mg PO TID 02/17/13 [History] Aspirin 81 mg PO DAILY 09/11/16 [History] Levothyroxine Sodium 50 Mcg [Synthroid 50 Mcg] 50 mcg PO DAILY 07/06/17 [History] Dexlansoprazole [Dexilant] 60 mg PO DAILY 01/21/20 [History] Albuterol 2.5 mg/3 ml Neb [Proventil 2.5 mg/3 ml Neb] 2.5 mg IH QID 07/23/20 [History] dilTIAZem HCL [Diltiazem 24Hr ER (Cd)] 120 mg PO DAILY 09/29/21 [History] Promethazine HCl 25 mg [Phenergan 25 mg] 25 mg PO BIDPRN PRN 01/18/22 [History] Apixaban [Eliquis] 5 mg PO BID 07/02/22 [History] Fluticasone/Umeclidin/Vilanter [Trelegy Ellipta 200-62.5-25] 1 each IH DAILY 07/02/22 [History] Cetirizine HCl [Zyrtec] 1 tab PO DAILY 11/08/22 [History] Magnesium Oxide 400 mg [Mag-Ox 400] 1 tab PO DAILY 11/08/22 [History] Sodium Bicarbonate 2 tab PO TID 11/08/22 [History] Omeprazole/Sodium Bicarbonate [Omeprazole-Bicarb 40-1,100 Cap] 1 each PO HS 11/28/22 [History] Atorvastatin Calcium [Lipitor 40Mg] 40 mg PO DAILY 03/09/23 [History] Tenapanor HCl [Ibsrela] 50 mg PO BID 05/05/23 [History] Ubrogepant [Ubrelvy] 100 mg PO DAILY PRN 05/05/23 [History] Hx Tetanus, Diphtheria Vaccination/Date Given: Yes Hx Influenza Vaccination/Date Given: Yes Hx Pneumococcal Vaccination/Date Given: Yes Immunizations Up to Date: Yes Travel Risk - International Travel Have you traveled outside of the country in past 3 weeks: No - Emerging Infectious Disease Are you exhibiting symptoms associated with any current EIDs: No - Review of Systems Constitutional: No Symptoms Eyes: No Symptoms Ears, Nose, & Throat: No Symptoms Respiratory: No Symptoms Cardiac: No Symptoms Abdominal/Gastrointestinal: No Symptoms Genitourinary Symptoms: No Symptoms Musculoskeletal: No Symptoms Skin: No Symptoms Neurological: Headache Psychological: No Symptoms Endocrine: No Symptoms Hematologic/Lymphatic: No Symptoms Immunological/Allergic: No Symptoms All Other Systems: Reviewed and Negative - Past Medical History Pertinent Past Medical History: Yes Neurological History: Migraines, TIA ENT History: Cataracts Cardiac History: High Cholesterol Respiratory History: Bronchitis, COPD, Pneumonia, Pulmonary Embolism Endocrine Medical History: Hypothyroidism Musculoskeletal History: Osteoarthritis GI Medical History: GERD, Gallbladder Disease, Other History: Other Psycho-Social History: Anxiety, Depression, Panic Disorder Female Reproductive Disorders: No Pertinent History Other Medical History: frequent uti's, chronic pseudo obstruction, blood clot, partial bowel blockage. septic in august 2023. post a cath replaced 10/15/23 - Past Surgical History Past Surgical History: Yes Neuro Surgical History: No Pertinent History Cardiac: No Pertinent History Respiratory: No Pertinent History Gastrointestinal: Cholecystectomy, Other Genitourinary: No Pertinent History Musculoskeletal: No Pertinent History Female Surgical History: Hysterectomy Other Surgical History: all of large intestine removed and most of small intestines removed, feeding tube in 2004 removed in 2007. Significant Family History: no pertinent family hx - Social History Smoking Status: Never smoker Exposure to second hand smoke: No Alcohol Use: None Drug Use: none Patient Lives Alone: Yes - Social Determinants of Health Will the patient participate in the screening: Yes Do you worry about a steady place to live?: No Do you have any problems with any of the following?: No known problems In the past 12 months,have you had to go without utilities?: No Transportation Issues: No Has anyone in your support network made you feel unsafe?: No Have you or anyone in your house had to go without enough: No - Nursing Vital Signs Nursing Vital Signs: Initial Vital Signs Temperature 97.2 F 01/13/24 18:49 Pulse Rate 114 H 01/13/24 18:49 Respiratory Rate 20 01/13/24 18:49 Blood Pressure 112/80 01/13/24 18:49 O2 Sat by Pulse Oximetry 98 01/13/24 18:49 Pain Scale Pain Intensity 10 - Physical Exam General Appearance: mild distress, alert, anxiety, obese Eye Exam: PERRL/EOMI, eyes nml inspection Ears, Nose, Throat Exam: normal ENT inspection, moist mucous membranes Neck Exam: normal inspection, non-tender, supple, full range of motion Respiratory Exam: normal breath sounds, lungs clear, airway intact, No chest tenderness, No respiratory distress Cardiovascular Exam: tachycardia Gastrointestinal/Abdominal Exam: No tenderness Back Exam: normal inspection, normal range of motion, No CVA tenderness, No vertebral tenderness Extremity Exam: normal inspection, normal range of motion, pelvis stable 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, 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, 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 Exam: normal hearing, normal speech, PERRL Motor/Sensory Exam: no motor deficit, no sensory deficit, no pronator drift Skin Exam: normal color, warm, dry Lymphatic Exam: No adenopathy SpO2 Interpretation: normal SpO2: 98 O2 Delivery: Room Air - Course Nursing assessment & vital signs reviewed: Yes Ordered Tests: Active Orders 24 hr Category Date Time Status HEAD WITHOUT CONTRAST [CT] Stat Exams 01/13/24 19:31 Completed Medication Summary Discontinued Medications Generic Name Dose Route Start Last Admin Trade Name Elton PRN Reason Stop Dose Admin Diphenhydramine HCl 50 mg 01/13/24 20:11 01/13/24 20:24 Diphenhydramine Hcl 50 Mg/Ml Vial IM 01/13/24 20:12 50 mg STAT ONE Administration Diphenhydramine HCl Confirm 01/13/24 20:15 Diphenhydramine Hcl 50 Mg/Ml Vial Administered 01/13/24 20:16 Dose 50 mg .ROUTE .STK-MED ONE Morphine Sulfate 4 mg 01/13/24 20:11 01/13/24 20:25 Morphine Sulfate 4 Mg/Ml Injection IM 01/13/24 20:12 4 mg STAT ONE Administration Morphine Sulfate Confirm 01/13/24 20:16 Morphine Sulfate 4 Mg/Ml Injection Administered 01/13/24 20:17 Dose 4 mg .ROUTE .STK-MED ONE Ondansetron HCl 4 mg 01/13/24 20:11 01/13/24 20:23 Zofran 4 Mg/Udtablet Orally Disintegrating PO 01/13/24 20:12 4 mg STAT ONE Administration Ondansetron HCl Confirm 01/13/24 20:15 Zofran 4 Mg/Udtablet Orally Disintegrating Administered 01/13/24 20:16 Dose 4 mg .ROUTE .STK-MED ONE - Progress Progress: improved, re-examined Air Movement: good Progress Note: 01/13/24 20:10 Medical decision making and the assignment of low complexity to this patient's medical issue today is based on review of the patient's past medical history, review of patient medication list, reviewed patient drug allergy list, history present of some physical findings on examination. The workup in this patient includes CT scan of the head without contrast. Differential diagnosis includes but is not limited to migraine headache, acute intracranial abnormality 01/13/24 20:38 The radiologist interpreted the patient's CT scan of the head without contrast. The impression states no acute abnormality in this CTA of the head without contrast study. There are no changes when compared to a similar study dated 07/21/2023 Blood Culture(s) Obtained: No Antibiotics given: No Counseled pt/family regarding: diagnosis, need for follow-up, rad results Medical Desision Making - Diagnostic Testing Diagnostic test were ordered, analyzed, and reviewed by me: Yes Radiological Interpretation: Reviewed by me, Teleradiologist Report - Risk of complications Low Risk: Low risk of morbidity from additional dx testing or treatment - Departure Departure Disposition: Home Clinical Impression: Chronic headache disorder Condition: Stable Critical Care Time: No Referrals: MARQUISE HENDERSON DO [Primary Care Provider] - Follow up/PCP as directed Additional Instructions: Continue all your medications as prescribed. Keep your appointment to see your neurologist on January 21, 2024.
[2024-01-13] MEDS ORDERED: ZOFRAN ODT 4 MG ONE (20:15)
[2024-01-13] MEDS ORDERED: BENADRYL 50 MG/ML ONE (20:15)
--- NOTE | 2024-01-13 20:15 | XRAY ---
CLINICAL HISTORY: Headache COMPARISON: 07/21/2023 TECHNIQUE: An axial non-contrast CT scan of the brain was performed from the skull base to the high parietal region. One of the following dose reduction techniques was utilized for this exam: Automated exposure control, adjustment of the mA and/or kV according to patient size, and use of iterative reconstruction. FINDINGS: The visualized brain parenchyma shows a normal appearance. [place]-white matter differentiation is maintained. No midline shifts or deformity. No intracerebral or extra axial hematoma. Normal size and configuration of the cerebral ventricles. Normal CT appearance of the posterior fossa structures namely the cerebellar hemispheres, brainstem, and cerebellar peduncles. The cerebello-pontine angles are clear. The osseous structures in the skull base are unremarkable. No definite calvarium fractures. The scanned paranasal sinuses are clear. Bilateral mastoid air cells appear unremarkable. Hyperostosis frontalis interna noted. IMPRESSION: 1. No acute abnormality was detected in the plain CT head. 2. No significant interval changes since the previous study. Electronically Signed by: Evelyne Razo MD. (01/13/2024 20:12:10 EST)
[2024-01-13] MEDS ORDERED: MORPHINE SULFATE 4 MG INJ ONE (20:16)
[2024-01-13] MEDS: ZOFRAN ODT 4 MG PO ONE (20:23)
[2024-01-13] MEDS: BENADRYL 50 MG/ML IM ONE (20:24)
[2024-01-13] MEDS: MORPHINE SULFATE 4 MG INJ IM ONE (20:25)
== END 2024-01-13 20:50 | disposition home or self-care (01) ==
LOC: ED 18:27
DX: G44.89 Other headache syndrome (principal); H53.149 Visual discomfort, unspecified; R11.0 Nausea; E78.5 Hyperlipidemia, unspecified; Z79.01 Long term (current) use of anticoagulants; Z79.899 Other long term (current) drug therapy
CPT/HCPCS: 70450; 96372; 99283; 99284; J1200; J2270; Q0162

== ENCOUNTER 2024-01-19 19:53 | Emergency (ER) | payer MEDICARE, OTHER ==
[2012-11-05 17:17] VITALS: BP 100/62
== END 2024-01-19 21:25 | disposition left against medical advice (07) ==
LOC: ED 19:53
DX: Z53.21 Procedure and treatment not carried out due to patient leaving prior to being seen by health care provider (principal)

== ENCOUNTER 2024-01-21 16:07 | Emergency (ER) | payer MEDICARE, OTHER ==
[2024-01-21 16:16] VITALS: RESP 22; TEMP 98.2
--- NOTE | 2024-01-21 16:16 | ERPHSYRPT ---
- History of Present Illness Time Seen by Provider: 01/21/24 16:15 Source: patient Exam Limitations: no limitations Physician History: This is a 68-year-old white female patient of Dr. Henderson who has chronic recurrent migraine headaches. She arrives by private vehicle. Patient's primary issue today is her headache. She has been seen in our emergency department several times. Today, is her fourth visit in approximately 1 month. She did see her neurologist today and they are making arrangements for placement of a pain device to be placed dermally or intradermally. However, it requires prior authorization. I will not repeat the CT scan of the head as this p atient's CT scan of the head without contrast study on 01/13/2024 showed negative for any acute process. Patient has had in the past, and responds well to, a combination of intramuscular Benadryl, Compazine and morphine Timing/Duration: today Quality: aching Head Pain Location: global Severity of Pain-Max: moderate (.) Severity of Pain-Current: moderate Modifying Factors: Improves With: exposure to light, noise Associated Symptoms: denies symptoms Previous symptoms: same symptoms as today, recently seen, recently treated Allergies/Adverse Reactions: sumatriptan [From Imitrex] Allergy (Intermediate, Verified 01/13/24 18:48) Rash codeine Allergy (Mild, Verified 01/13/24 18:48) Rash MAKES SICK nitrofurantoin [From Macrobid] Allergy (Unknown, Verified 01/13/24 18:48) sulfamethoxazole [From Bactrim] Allergy (Unknown, Verified 01/13/24 18:48) trimethoprim [From Bactrim] Allergy (Unknown, Verified 01/13/24 18:48) sumatriptan succinate [From Imitrex] Allergy (Verified 01/13/24 18:48) fentanyl Adverse Reaction (Intermediate, Verified 01/13/24 18:48) Headache hydrocodone bitartrate [From Vicodin] Adverse Reaction (Mild, Verified 01/13/24 18:48) Vomiting hydromorphone [From Dilaudid] Adverse Reaction (Mild, Verified 01/13/24 18:48) pt states makes headache worse. Home Medications: ALPRAZolam 1 MG [Xanax 1 mg] 1 mg PO TID 02/17/13 [History] Aspirin 81 mg PO DAILY 09/11/16 [History] Levothyroxine Sodium 50 Mcg [Synthroid 50 Mcg] 50 mcg PO DAILY 07/06/17 [History] Dexlansoprazole [Dexilant] 60 mg PO DAILY 01/21/20 [History] Albuterol 2.5 mg/3 ml Neb [Proventil 2.5 mg/3 ml Neb] 2.5 mg IH QID 07/23/20 [History] dilTIAZem HCL [Diltiazem 24Hr ER (Cd)] 120 mg PO DAILY 09/29/21 [History] Promethazine HCl 25 mg [Phenergan 25 mg] 25 mg PO BIDPRN PRN 01/18/22 [History] Apixaban [Eliquis] 5 mg PO BID 07/02/22 [History] Fluticasone/Umeclidin/Vilanter [Trelegy Ellipta 200-62.5-25] 1 each IH DAILY 07/02/22 [History] Cetirizine HCl [Zyrtec] 1 tab PO DAILY 11/08/22 [History] Magnesium Oxide 400 mg [Mag-Ox 400] 1 tab PO DAILY 11/08/22 [History] Sodium Bicarbonate 2 tab PO TID 11/08/22 [History] Omeprazole/Sodium Bicarbonate [Omeprazole-Bicarb 40-1,100 Cap] 1 each PO HS 11/28/22 [History] Atorvastatin Calcium [Lipitor 40Mg] 40 mg PO DAILY 03/09/23 [History] Tenapanor HCl [Ibsrela] 50 mg PO BID 05/05/23 [History] Ubrogepant [Ubrelvy] 100 mg PO DAILY PRN 05/05/23 [History] Hx Tetanus, Diphtheria Vaccination/Date Given: Yes Hx Influenza Vaccination/Date Given: Yes Hx Pneumococcal Vaccination/Date Given: Yes Travel Risk - International Travel Have you traveled outside of the country in past 3 weeks: No - Emerging Infectious Disease Are you exhibiting symptoms associated with any current EIDs: No - Review of Systems Constitutional: No Symptoms Eyes: No Symptoms Ears, Nose, & Throat: No Symptoms Respiratory: No Symptoms Cardiac: No Symptoms Abdominal/Gastrointestinal: Nausea, Vomiting, No Abdominal Pain, No Diarrhea, No Constipation Genitourinary Symptoms: No Symptoms Musculoskeletal: No Symptoms Skin: No Symptoms Neurological: No Symptoms, Headache Psychological: No Symptoms Endocrine: No Symptoms Hematologic/Lymphatic: No Symptoms Immunological/Allergic: No Symptoms All Other Systems: Reviewed and Negative - Past Medical History Pertinent Past Medical History: Yes Neurological History: Migraines, TIA ENT History: Cataracts Cardiac History: High Cholesterol Respiratory History: Bronchitis, COPD, Pneumonia, Pulmonary Embolism Endocrine Medical History: Hypothyroidism Musculoskeletal History: Osteoarthritis GI Medical History: GERD, Gallbladder Disease, Other History: Other Psycho-Social History: Anxiety, Depression, Panic Disorder Female Reproductive Disorders: No Pertinent History Other Medical History: frequent uti's, chronic pseudo obstruction, blood clot, partial bowel blockage. septic in august 2023. post a cath replaced 10/15/23 - Past Surgical History Past Surgical History: Yes Neuro Surgical History: No Pertinent History Cardiac: No Pertinent History Respiratory: No Pertinent History Gastrointestinal: Cholecystectomy, Other Genitourinary: No Pertinent History Musculoskeletal: No Pertinent History Female Surgical History: Hysterectomy Other Surgical History: all of large intestine removed and most of small intestines removed, feeding tube in 2004 removed in 2007. Significant Family History: no pertinent family hx - Social History Smoking Status: Never smoker Exposure to second hand smoke: No Alcohol Use: None Drug Use: none Patient Lives Alone: Yes - Social Determinants of Health Will the patient participate in the screening: Yes Do you worry about a steady place to live?: No In the past 12 months,have you had to go without utilities?: No Transportation Issues: No Has anyone in your support network made you feel unsafe?: No Have you or anyone in your house had to go without enough: No - Nursing Vital Signs Nursing Vital Signs: Initial Vital Signs Temperature 98.2 F 01/21/24 16:11 Pulse Rate 105 H 01/21/24 16:11 Respiratory Rate 22 01/21/24 16:11 Blood Pressure 107/61 01/21/24 16:11 O2 Sat by Pulse Oximetry 99 01/21/24 16:11 Pain Scale Pain Intensity 8 - Physical Exam General Appearance: mild distress, alert, anxiety Eye Exam: PERRL/EOMI, eyes nml inspection Ears, Nose, Throat Exam: normal ENT inspection, moist mucous membranes Neck Exam: normal inspection, non-tender, supple, full range of motion Respiratory Exam: normal breath sounds, lungs clear, airway intact, No chest tenderness, No respiratory distress Cardiovascular Exam: regular rate/rhythm, normal heart sounds, normal peripheral pulses Gastrointestinal/Abdominal Exam: No tenderness Back Exam: normal inspection, normal range of motion, No CVA tenderness, No kami tebral tenderness Extremity Exam: normal inspection, normal range of motion, pelvis stable 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, 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, 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 Exam: normal hearing, normal speech, PERRL, tongue midline Skin Exam: normal color, warm, dry Lymphatic Exam: No adenopathy SpO2 Interpretation: normal O2 Delivery: Room Air - Course Nursing assessment & vital signs reviewed: Yes Ordered Tests: Medication Summary Discontinued Medications Generic Name Dose Route Start Last Admin Trade Name Elton PRN Reason Stop Dose Admin Diphenhydramine HCl 50 mg 01/21/24 16:35 Diphenhydramine Hcl 50 Mg/Ml Vial IM 01/21/24 16:36 STAT ONE Morphine Sulfate 2 mg 01/21/24 16:34 Morphine Sulfate 2 Mg/Ml Inj IM 01/21/24 16:35 STAT ONE Prochlorperazine Edisylate 5 mg 01/21/24 16:35 Prochlorperazine Edisylate 10 Mg/2 Ml Vial IM 01/21/24 16:36 STAT ONE - Progress Progress: improved, re-examined Air Movement: good Progress Note: 01/21/24 17:04 My medical decision making and the assignment of low complexity to this patie nt's medical issue today is based on review of the patient's past medical history, review of the patient's medication list, review the patient drug allergy list, history present illness and physical findings on examination. The workup today, does not require radiographic or laboratory studies. We will provide the patient with injection of intramuscular morphine, Benadryl and Compazine. Differential diagnosis includes migraine headache, anxiety, depression, cluster headache Blood Culture(s) Obtained: No Antibiotics given: No Counseled pt/family regarding: diagnosis, need for follow-up Medical Desision Making - Diagnostic Testing Diagnostic test were ordered, analyzed, and reviewed by me: No - Risk of complications Low Risk: Low risk of morbidity from additional dx testing or treatment - Departure Departure Disposition: Home Clinical Impression: Migraine headache Condition: Stable Critical Care Time: No Referrals: MARQUISE HENDERSON, [Primary Care Provider] - Follow up/PCP as directed Additional Instructions: Take all your medications as prescribed. Call your primary care provider on 01/24/2024, to make arrangements for follow-up appointment and to be seen in the next 5 to 7 days. Keep your follow-up appointments with your neurologist.
[2024-01-21] MEDS ORDERED: BENADRYL 50 MG/ML ONE (17:08)
[2024-01-21] MEDS ORDERED: Compazine 10 MG/2 ML ONE (17:09)
[2024-01-21] MEDS ORDERED: MORPHINE SULFATE 2 MG INJ ONE (17:09)
[2024-01-21] MEDS: BENADRYL 50 MG/ML IM ONE (17:18)
[2024-01-21] MEDS: Compazine 10 MG/2 ML IM ONE (17:19)
[2024-01-21] MEDS: MORPHINE SULFATE 2 MG INJ IM ONE (17:20)
[2024-01-21 17:29] VITALS: BP 112/68; PULSE 94; O2SAT 98
== END 2024-01-21 17:31 | disposition home or self-care (01) ==
LOC: ED 16:07
DX: G43.909 Migraine, unspecified, not intractable, without status migrainosus (principal); Z86.73 Personal history of transient ischemic attack (TIA), and cerebral infarction without residual deficits; Z79.899 Other long term (current) drug therapy; Z79.01 Long term (current) use of anticoagulants
CPT/HCPCS: 96372; 99283; J1200; J2270

== ENCOUNTER 2024-01-24 16:53 | Emergency (ER) | payer MEDICARE, OTHER ==
[2024-01-24 17:12] VITALS: BP 153/72; PULSE 109; RESP 20; TEMP 97.3; O2SAT 98
--- NOTE | 2024-01-24 17:38 | ERPHSYRPT ---
- History of Present Illness Time Seen by Provider: 01/24/24 17:30 Source: patient Exam Limitations: no limitations Patient Subjective Stated Complaint: Headache Triage Nursing Assessment: Patient ambulated back to ED and transferred self to bed. Patient wearing home O2 at 3 liters per N/C. Patient A+O X 3. Patient's skin pink, warm and dry. Patient complains of headache 10/10 with N/V that started this am. Physician History: Patient is here for frontal headache. States that she has had headaches in the past. Feels like her typical headache. Patient does follow with a neurologist for her headaches. Patient states that she typically gets morphine, Benadryl, Compazine for these headaches. States that Toradol does not help her headaches. She has no associated neurological symptoms. No numbness, weakness, tingling. No fever no chills no signs of meningitis. Up until today she was in her normal state of health. Patient is taking PO well. Same number of urinations and defecations. The patient has no signs of altered mental status, nuchal rigidity, signs of meningitis. The patient is up-to-date on all vaccinations. Patient last had a head CT on 01/13/2024: IMPRESSION: 1. No acute abnormality was detected in the plain CT head. 2. No significant interval changes since the previous study. Allergies/Adverse Reactions: sumatriptan [From Imitrex] Allergy (Intermediate, Verified 01/24/24 17:01) Rash codeine Allergy (Mild, Verified 01/24/24 17:01) Rash MAKES SICK nitrofurantoin [From Macrobid] Allergy (Unknown, Verified 01/24/24 17:01) sulfamethoxazole [From Bactrim] Allergy (Unknown, Verified 01/24/24 17:01) trimethoprim [From Bactrim] Allergy (Unknown, Verified 01/24/24 17:01) sumatriptan succinate [From Imitrex] Allergy (Verified 01/24/24 17:01) fentanyl Adverse Reaction (Intermediate, Verified 01/24/24 17:01) Headache hydrocodone bitartrate [From Vicodin] Adverse Reaction (Mild, Verified 01/24/24 17:01) Vomiting hydromorphone [From Dilaudid] Adverse Reaction (Mild, Verified 01/24/24 17:01) pt states makes headache worse. Home Medications: ALPRAZolam 1 MG [Xanax 1 mg] 1 mg PO TID 02/17/13 [History] Aspirin 81 mg PO DAILY 09/11/16 [History] Levothyroxine Sodium 50 Mcg [Synthroid 50 Mcg] 50 mcg PO DAILY 07/06/17 [History] Dexlansoprazole [Dexilant] 60 mg PO DAILY 01/21/20 [History] Albuterol 2.5 mg/3 ml Neb [Proventil 2.5 mg/3 ml Neb] 2.5 mg IH QID 07/23/20 [History] dilTIAZem HCL [Diltiazem 24Hr ER (Cd)] 120 mg PO DAILY 09/29/21 [History] Promethazine HCl 25 mg [Phenergan 25 mg] 25 mg PO BIDPRN PRN 01/18/22 [History] Apixaban [Eliquis] 5 mg PO BID 07/02/22 [History] Fluticasone/Umeclidin/Vilanter [Trelegy Ellipta 200-62.5-25] 1 each IH DAILY 07/02/22 [History] Cetirizine HCl [Zyrtec] 1 tab PO DAILY 11/08/22 [History] Magnesium Oxide 400 mg [Mag-Ox 400] 1 tab PO DAILY 11/08/22 [History] Sodium Bicarbonate 2 tab PO TID 11/08/22 [History] Omeprazole/Sodium Bicarbonate [Omeprazole-Bicarb 40-1,100 Cap] 1 each PO HS 11/28/22 [History] Atorvastatin Calcium [Lipitor 40Mg] 40 mg PO DAILY 03/09/23 [History] Tenapanor HCl [Ibsrela] 50 mg PO BID 05/05/23 [History] Ubrogepant [Ubrelvy] 100 mg PO DAILY PRN 05/05/23 [History] Hx Tetanus, Diphtheria Vaccination/Date Given: Yes Hx Influenza Vaccination/Date Given: Yes Hx Pneumococcal Vaccination/Date Given: Yes Immunizations Up to Date: Yes Travel Risk - International Travel Have you traveled outside of the country in past 3 weeks: No - Emerging Infectious Disease Are you exhibiting symptoms associated with any current EIDs: No - Past Medical History Pertinent Past Medical History: Yes Neurological History: Migraines, TIA ENT History: Cataracts Cardiac History: High Cholesterol Respiratory History: Bronchitis, COPD, Pneumonia, Pulmonary Embolism Endocrine Medical History: Hypothyroidism Musculoskeletal History: Osteoarthritis GI Medical History: GERD, Gallbladder Disease, Other History: Other Psycho-Social History: Anxiety, Depression, Panic Disorder Female Reproductive Disorders: No Pertinent History Other Medical History: frequent uti's, chronic pseudo obstruction, blood clot, partial bowel blockage. septic in august 2023. post a cath replaced 10/15/23 - Past Surgical History Past Surgical History: Yes Neuro Surgical History: No Pertinent History Cardiac: No Pertinent History Respiratory: No Pertinent History Gastrointestinal: Cholecystectomy, Other Genitourinary: No Pertinent History Musculoskeletal: No Pertinent History Female Surgical History: Hysterectomy Other Surgical History: all of large intestine removed and most of small intestines removed, feeding tube in 2004 removed in 2007. Significant Family History: no pertinent family hx - Social History Smoking Status: Never smoker Exposure to second hand smoke: No Alcohol Use: None Drug Use: none Patient Lives Alone: Yes - Social Determinants of Health Will the patient participate in the screening: Yes Do you worry about a steady place to live?: No Do you have any problems with any of the following?: No known problems In the past 12 months,have you had to go without utilities?: No Transportation Issues: No Has anyone in your support network made you feel unsafe?: No Have you or anyone in your house had to go without enough: No - Nursing Vital Signs Nursing Vital Signs: Initial Vital Signs Temperature 97.3 F 01/24/24 17:01 Pulse Rate 109 H 01/24/24 17:01 Respiratory Rate 20 01/24/24 17:01 Blood Pressure 153/72 01/24/24 17:01 O2 Sat by Pulse Oximetry 98 01/24/24 17:01 Pain Scale Pain Intensity 10 - Physical Exam SpO2: 98 Comments: 01/24/24 17:41 Review of Systems Constitutional: Negative for fever. HENT: Negative for congestion. Respiratory: Negative for shortness of breath. Cardiovascular: Negative for chest pain. Gastrointestinal: Negative for abdominal pain. Genitourinary: Negative for dysuria. Musculoskeletal: Negative for back pain. Skin: Negative for rash. Neurological: Headache Psychiatric/Behavioral: Negative for behavioral problems. All other systems reviewed and are negative. Physical Exam Vitals signs and nursing note reviewed. Constitutional: Appearance: Patient is well-developed. HENT: Head: Normocephalic and atraumatic. Eyes: Conjunctiva/sclera: Conjunctivae normal. Neck: Musculoskeletal: Normal range of motion. Trachea: No tracheal deviation. Cardiovascular: Rate and Rhythm: Normal rate. Pulmonary: Effort: Pulmonary effort is normal. No respiratory distress. Abdominal: Palpations: Abdomen is soft. Musculoskeletal: General: No deformity. Skin: General: Skin is warm and dry. Neurological/ Psychiatric: Mental Status: Mental status, behavior, interaction with environment is appropriate for patient's age and condition Motor: There is no pronator drift of out-stretched arms. Muscle bulk and tone are normal. Strength is full bilaterally. Reflexes: Reflexes are 2+ and symmetric at the biceps, triceps, knees, and ankles. Plantar responses are flexor. Sensory: Light touch sense are intact in bilateral upper and lower extremities. There is no sign of neglect. Coordination: Rapid alternating movements are intact. There is no dysmetria on [id number] and [id number]. There are no abnormal or extraneous movements. Romberg is absent. Gait/Stance: Posture is normal, patient is ambultory without difficuly to bed - Course Nursing assessment & vital signs reviewed: Yes Ordered Tests: Medication Summary Discontinued Medications Generic Name Dose Route Start Last Admin Trade Name Elton PRN Reason Stop Dose Admin Diphenhydramine HCl 50 mg 01/24/24 17:56 01/24/24 18:09 Diphenhydramine Hcl 50 Mg/Ml Vial IM 01/24/24 17:57 50 mg STAT ONE Administration Diphenhydramine HCl Confirm 01/24/24 17:59 Diphenhydramine Hcl 50 Mg/Ml Vial Administered 01/24/24 18:00 Dose 50 mg .ROUTE .STK-MED ONE Ketorolac Tromethamine 30 mg 01/24/24 17:56 01/24/24 18:11 Ketorolac Tromethamine 30 Mg/Ml Inj IM 01/24/24 17:57 30 mg STAT ONE Administration Ketorolac Tromethamine Confirm 01/24/24 17:59 Ketorolac Tromethamine 30 Mg/Ml Inj Administered 01/24/24 18:00 Dose 30 mg .ROUTE .STK-MED ONE Prochlorperazine Edisylate 10 mg 01/24/24 17:55 01/24/24 18:10 Prochlorperazine Edisylate 10 Mg/2 Ml Vial IM 01/24/24 17:56 10 mg STAT ONE Administration Prochlorperazine Edisylate Confirm 01/24/24 17:59 Prochlorperazine Edisylate 10 Mg/2 Ml Vial Administered 01/24/24 18:00 Dose 10 mg .ROUTE .STK-MED ONE - Progress Progress: improved Progress Note: 01/24/24 17:41 Differential diagnosis includes tension headache, migraine, much lower suspicion for stroke, other sinister pathology. It does appear that this is patient's typical presentation reviewing past charts. Unclear why patient has been gettin g morphine for a migraine headache. Studies well-document that morphine, other narcotics cause more severe rebound headaches. This could be very well what is going on given patient's frequent ER visits. She could be having worsening rebound narcotic headaches. Either way, today we will plan on doing Toradol, Benadryl, Compazine. Patient's ride is no longer in the room she states that they have gone home. You cannot drive after taking these potentially sedating medications. Therefore we will require patient's route salesman and driver to return to the emergency department prior to the administration of these medications. We went to ensure that she does have a safe ride home, that we can discuss the potential side effects of the medications with the patient's route salesman and driver. Will also need to discuss how to carefully look after patient after medication instruction. Normal neurological exam as above, continue close ER monitoring. 01/24/24 18:22 Patient's adult granddaughter is now at bedside. I did discuss risks of Benadryl and Compazine. Adult granddaughter also requested narcotics. I did go over the following paper: [facility] neurology, 2006 Feb;8(1):11-9 Rebound-withdrawal headache (medication overuse headache) Drake Peoples The above graphically details the high likelihood of rebound headaches with narcotic use. In detail, I did describe the effects of narcotic use and rebound headaches. How often these can become worse with withdrawal of the medication. From my perspective if patient is receiving morphine 2-3 times a month for atypical migraine pattern headache then we are in a bad situation. She most likely needs to develop a headache plan with her primary neurologist. Repeat neurological exam remained normal here. I did go over all this with the daughter and the patient. They state their understanding. Counseled pt/family regarding: diagnosis, need for follow-up - Departure Departure Disposition: Home Clinical Impression: Migraine headache Condition: Stable Critical Care Time: No Referrals: MARQUISE HENDERSON DO [Primary Care Provider] - Follow up/PCP as directed Instructions: Headache, Adult (DC)
[2024-01-24] MEDS ORDERED: Compazine 10 MG/2 ML ONE (17:59)
[2024-01-24] MEDS ORDERED: TORAdol 30 mg Injection ONE (17:59)
[2024-01-24] MEDS ORDERED: BENADRYL 50 MG/ML ONE (17:59)
[2024-01-24] MEDS: BENADRYL 50 MG/ML IM ONE (18:09)
[2024-01-24] MEDS: Compazine 10 MG/2 ML IM ONE (18:10)
[2024-01-24] MEDS: TORAdol 30 mg Injection IM ONE (18:11)
== END 2024-01-24 18:20 | disposition home or self-care (01) ==
LOC: ED 16:53
DX: G43.909 Migraine, unspecified, not intractable, without status migrainosus (principal); R11.2 Nausea with vomiting, unspecified; Z99.81 Dependence on supplemental oxygen; Z79.01 Long term (current) use of anticoagulants
CPT/HCPCS: 96372; 99283; J1200; J1885

== ENCOUNTER 2024-02-10 00:29 | Emergency (ER) | payer MEDICARE, OTHER ==
--- NOTE | 2024-02-10 01:28 | ERPHSYRPT ---
- History of Present Illness Time Seen by Provider: 02/10/24 01:19 Exam Limitations: no limitations Physician History: Pt states she tripped over her oxygen hose and hit her right forearm on the door frame with resultant swelling. Allergies/Adverse Reactions: sumatriptan [From Imitrex] Allergy (Intermediate, Verified 01/24/24 17:01) Rash codeine Allergy (Mild, Verified 01/24/24 17:01) Rash MAKES SICK nitrofurantoin [From Macrobid] Allergy (Unknown, Verified 01/24/24 17:01) sulfamethoxazole [From Bactrim] Allergy (Unknown, Verified 01/24/24 17:01) trimethoprim [From Bactrim] Allergy (Unknown, Verified 01/24/24 17:01) sumatriptan succinate [From Imitrex] Allergy (Verified 01/24/24 17:01) fentanyl Adverse Reaction (Intermediate, Verified 01/24/24 17:01) Headache hydrocodone bitartrate [From Vicodin] Adverse Reaction (Mild, Verified 01/24/24 17:01) Vomiting hydromorphone [From Dilaudid] Adverse Reaction (Mild, Verified 01/24/24 17:01) pt states makes headache worse. Home Medications: ALPRAZolam 1 MG [Xanax 1 mg] 1 mg PO TID 02/17/13 [History] Aspirin 81 mg PO DAILY 09/11/16 [History] Levothyroxine Sodium 50 Mcg [Synthroid 50 Mcg] 50 mcg PO DAILY 07/06/17 [History] Dexlansoprazole [Dexilant] 60 mg PO DAILY 01/21/20 [History] Albuterol 2.5 mg/3 ml Neb [Proventil 2.5 mg/3 ml Neb] 2.5 mg IH QID 07/23/20 [History] dilTIAZem HCL [Diltiazem 24Hr ER (Cd)] 120 mg PO DAILY 09/29/21 [History] Promethazine HCl 25 mg [Phenergan 25 mg] 25 mg PO BIDPRN PRN 01/18/22 [History] Apixaban [Eliquis] 5 mg PO BID 07/02/22 [History] Fluticasone/Umeclidin/Vilanter [Trelegy Ellipta 200-62.5-25] 1 each IH DAILY 07/02/22 [History] Cetirizine HCl [Zyrtec] 1 tab PO DAILY 11/08/22 [History] Magnesium Oxide 400 mg [Mag-Ox 400] 1 tab PO DAILY 11/08/22 [History] Sodium Bicarbonate 2 tab PO TID 11/08/22 [History] Omeprazole/Sodium Bicarbonate [Omeprazole-Bicarb 40-1,100 Cap] 1 each PO HS 11/28/22 [History] Atorvastatin Calcium [Lipitor 40Mg] 40 mg PO DAILY 03/09/23 [History] Tenapanor HCl [Ibsrela] 50 mg PO BID 05/05/23 [History] Ubrogepant [Ubrelvy] 100 mg PO DAILY PRN 05/05/23 [History] Hx Tetanus, Diphtheria Vaccination/Date Given: Yes Hx Influenza Vaccination/Date Given: Yes Hx Pneumococcal Vaccination/Date Given: Yes Travel Risk - Emerging Infectious Disease Are you exhibiting symptoms associated with any current EIDs: No - Review of Systems Musculoskeletal: Other (right forearm pain) - Past Medical History Pertinent Past Medical History: Yes Neurological History: Migraines, TIA ENT History: Cataracts Cardiac History: High Cholesterol Respiratory History: Bronchitis, COPD, Pneumonia, Pulmonary Embolism Endocrine Medical History: Hypothyroidism Musculoskeletal History: Osteoarthritis GI Medical History: GERD, Gallbladder Disease, Other History: Other Psycho-Social History: Anxiety, Depression, Panic Disorder Female Reproductive Disorders: No Pertinent History Other Medical History: frequent uti's, chronic pseudo obstruction, blood clot, partial bowel blockage. septic in august 2023. post a cath replaced 10/15/23 - Past Surgical History Past Surgical History: Yes Neuro Surgical History: No Pertinent History Cardiac: No Pertinent History Respiratory: No Pertinent History Gastrointestinal: Cholecystectomy, Other Genitourinary: No Pertinent History Musculoskeletal: No Pertinent History Female Surgical History: Hysterectomy Other Surgical History: all of large intestine removed and most of small intestines removed, feeding tube in 2004 removed in 2007. Significant Family History: no pertinent family hx - Social History Smoking Status: Never smoker Exposure to second hand smoke: No Alcohol Use: None Drug Use: none Patient Lives Alone: Yes - Social Determinants of Health Will the patient participate in the screening: Yes Do you worry about a steady place to live?: No In the past 12 months,have you had to go without utilities?: No Transportation Issues: No Has anyone in your support network made you feel unsafe?: No Have you or anyone in your house had to go without enough: No - Nursing Vital Signs Nursing Vital Signs: Initial Vital Signs Temperature 97.2 F 02/10/24 00:46 Pulse Rate 100 H 02/10/24 00:46 Respiratory Rate 18 02/10/24 00:46 O2 Sat by Pulse Oximetry 93 L 02/10/24 00:46 Pain Scale Pain Intensity 3 - Physical Exam General Appearance: alert Shoulder Exam: normal ROM Elbow/Forearm Exam: normal ROM, swelling (mild swelling of mid dorsal aspect of right forearm) Wrist Exam: normal ROM Hand Exam: normal ROM Neuro/Tendon Exam: normal sensation, normal motor functions 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 Skin Exam: warm, dry - Course Nursing assessment & vital signs reviewed: Yes - Radiology Exams Right Forearm X-ray Interpretation: Interpreted by me, No Fracture Ordered Tests: Active Orders 24 hr Category Date Time Status FOREARM Stat Exams 02/10/24 01:24 Taken D-DIMER QUANTITATIVE Stat Lab 02/10/24 02:24 Completed Lab/Rad Data: Laboratory Results 02/10/24 Range/Units 02:24 D-Dimer 0.39 (0.0-0.50) mg/L - Progress Progress: unchanged Counseled pt/family regarding: lab results, diagnosis, need for follow-up, rad results Medical Desision Making - Diagnostic Testing Diagnostic test were ordered, analyzed, and reviewed by me: Yes Radiological Interpretation: Interpreted by me - Departure Departure Disposition: Home Clinical Impression: Contusion of right forearm Condition: Stable Critical Care Time: No Referrals: MARQUISE HENDERSON DO [Primary Care Provider] - Follow up/PCP as directed Additional Instructions: Follow up with private doctor tomorrow.
[2024-02-10 01:29] VITALS: TEMP 97.2
[2024-02-10 04:09] VITALS: RESP 16
[2024-02-10 04:14] VITALS: BP 108/62; PULSE 81; O2SAT 98
--- NOTE | 2024-02-10 09:09 | XRAY ---
Indication: Pain following fall. Comparison: None 2 view right forearm demonstrates osteopenia. No acute bony, articular, or soft tissue abnormalities.
== END 2024-02-10 04:08 | disposition home or self-care (01) ==
LOC: ED 00:29
DX: S50.11XA Contusion of right forearm, initial encounter (principal); M79.89 Other specified soft tissue disorders; W01.198A Fall on same level from slipping, tripping and stumbling with subsequent striking against other object, initial encounter; Z79.899 Other long term (current) drug therapy; Z79.01 Long term (current) use of anticoagulants
CPT/HCPCS: 36415; 73090; 85379; 99282; 99284

== ENCOUNTER 2024-02-15 19:59 | Emergency (ER) | payer MEDICARE, OTHER ==
[2024-02-15 20:49] VITALS: TEMP 97.9
--- NOTE | 2024-02-15 21:17 | ERPHSYRPT ---
- History of Present Illness Time Seen by Provider: 02/15/24 21:05 Source: patient Exam Limitations: no limitations Patient Subjective Stated Complaint: c/o migraine Triage Nursing Assessment: patient brought self to ED with a 10/10 migraine that started today. pt's vitals wnl, skin w/n/d, gait steady, AxOx3, patient doesn't appear to be in any distress at this time. Physician History: 68yo f pmhx COPD on O2/migraines/cervical spine DJD presents via private vehicle for migraine. Pt reports it started earlier this AM while her home health aid was at her house. Pt reports her current migraine feels the same as her chronic migraines, states the pain started w/ tension and her neck, now involves most of the scalp, endorses photophobia and 1 episode of small volume emesis which she reports is consistent w/ her typical migraines. Pt denies any falls or trauma, denies any changes in sensation, weakness, LOC, confusion. Pt denies any cp, sob. Timing/Duration: today Quality: dullness Head Pain Location: occipital, parietal Severity of Pain-Max: moderate Severity of Pain-Current: moderate Recent Head Trauma: frequent headaches, chronic headaches Modifying Factors: Improves With: exposure to light Associated Symptoms: nausea/vomiting, neck pain, sensitive to light, No confusion, No dizziness, No fever/chills, No loss of consciousness, No numbness in legs/feet, No seizures, No speech problems, No trouble walking, No vision changes, No visual disturbance, No weakness Previous symptoms: same symptoms as today, recently seen, recently treated Allergies/Adverse Reactions: sumatriptan [From Imitrex] Allergy (Intermediate, Verified 02/15/24 20:50) Rash codeine Allergy (Mild, Verified 02/15/24 20:50) Rash MAKES SICK nitrofurantoin [From Macrobid] Allergy (Unknown, Verified 02/15/24 20:50) sulfamethoxazole [From Bactrim] Allergy (Unknown, Verified 02/15/24 20:50) trimethoprim [From Bactrim] Allergy (Unknown, Verified 02/15/24 20:50) sumatriptan succinate [From Imitrex] Allergy (Verified 02/15/24 20:50) hydrocodone bitartrate [From Vicodin] Adverse Reaction (Mild, Verified 02/15/24 20:50) Vomiting hydromorphone [From Dilaudid] Adverse Reaction (Mild, Verified 02/15/24 20:50) pt states makes headache worse. Home Medications: ALPRAZolam 1 MG [Xanax 1 mg] 1 mg PO TID 02/17/13 [History] Aspirin 81 mg PO DAILY 09/11/16 [History] Levothyroxine Sodium 50 Mcg [Synthroid 50 Mcg] 50 mcg PO DAILY 07/06/17 [History] Dexlansoprazole [Dexilant] 60 mg PO DAILY 01/21/20 [History] Albuterol 2.5 mg/3 ml Neb [Proventil 2.5 mg/3 ml Neb] 2.5 mg IH QID 07/23/20 [History] dilTIAZem HCL [Diltiazem 24Hr ER (Cd)] 120 mg PO DAILY 09/29/21 [History] Promethazine HCl 25 mg [Phenergan 25 mg] 25 mg PO BIDPRN PRN 01/18/22 [History] Apixaban [Eliquis] 5 mg PO BID 07/02/22 [History] Fluticasone/Umeclidin/Vilanter [Trelegy Ellipta 200-62.5-25] 1 each IH DAILY 07/02/22 [History] Cetirizine HCl [Zyrtec] 1 tab PO DAILY 11/08/22 [History] Magnesium Oxide 400 mg [Mag-Ox 400] 1 tab PO DAILY 11/08/22 [History] Sodium Bicarbonate 2 tab PO TID 11/08/22 [History] Omeprazole/Sodium Bicarbonate [Omeprazole-Bicarb 40-1,100 Cap] 1 each PO HS 11/28/22 [History] Atorvastatin Calcium [Lipitor 40Mg] 40 mg PO DAILY 03/09/23 [History] Tenapanor HCl [Ibsrela] 50 mg PO BID 05/05/23 [History] Ubrogepant [Ubrelvy] 100 mg PO DAILY PRN 05/05/23 [History] Hx Tetanus, Diphtheria Vaccination/Date Given: Yes Hx Influenza Vaccination/Date Given: Yes Hx Pneumococcal Vaccination/Date Given: Yes Travel Risk - International Travel Have you traveled outside of the country in past 3 weeks: No - Emerging Infectious Disease Are you exhibiting symptoms associated with any current EIDs: No - Review of Systems Constitutional: No Symptoms Eyes: Photophobia, No Vision Changes, No Double Vision Respiratory: No Symptoms Cardiac: No Symptoms Abdominal/Gastrointestinal: Nausea, Vomiting, No Abdominal Pain, No Diarrhea, No Constipation Neurological: Headache, No Dizziness, No Focal Weakness, No Paralysis, No Parasthesia, No Seizure, No Sensory Changes, No Speech Changes - Past Medical History Pertinent Past Medical History: Yes Neurological History: Migraines, TIA ENT History: Cataracts Cardiac History: High Cholesterol Respiratory History: Bronchitis, COPD, Pneumonia, Pulmonary Embolism Endocrine Medical History: Hypothyroidism Musculoskeletal History: Osteoarthritis GI Medical History: GERD, Gallbladder Disease, Other History: Other Psycho-Social History: Anxiety, Depression, Panic Disorder Female Reproductive Disorders: No Pertinent History Other Medical History: frequent uti's, chronic pseudo obstruction, blood clot, partial bowel blockage. septic in august 2023. post a cath replaced 10/15/23 - Past Surgical History Past Surgical History: Yes Neuro Surgical History: No Pertinent History Cardiac: No Pertinent History Respiratory: No Pertinent History Gastrointestinal: Cholecystectomy, Other Genitourinary: No Pertinent History Musculoskeletal: No Pertinent History Female Surgical History: Hysterectomy Other Surgical History: all of large intestine removed and most of small intestines removed, feeding tube in 2004 removed in 2007. Significant Family History: no pertinent family hx - Social History Smoking Status: Never smoker Exposure to second hand smoke: No Alcohol Use: None Drug Use: none Patient Lives Alone: Yes - Social Determinants of Health Will the patient participate in the screening: Yes Do you worry about a steady place to live?: No Do you have any problems with any of the following?: No known problems In the past 12 months,have you had to go without utilities?: No Transportation Issues: No Has anyone in your support network made you feel unsafe?: No Have you or anyone in your house had to go without enough: No - Nursing Vital Signs Nursing Vital Signs: Initial Vital Signs Temperature 97.9 F 02/15/24 20:39 Pulse Rate 104 H 02/15/24 20:39 Respiratory Rate 18 02/15/24 20:39 Blood Pressure 106/67 02/15/24 20:39 Pain Scale Pain Intensity 10 - Physical Exam General Appearance: no apparent distress, alert Eye Exam: PERRL/EOMI, eyes nml inspection, photophobia Ears, Nose, Throat Exam: normal ENT inspection, pharynx normal, moist mucous membranes Neck Exam: normal inspection, non-tender, limited range of motion (2/2 chronic neck dysfunction), No midline tenderness Respiratory Exam: normal breath sounds, lungs clear, airway intact (on 2L O2 nc baseline), No chest tenderness, No respiratory distress Cardiovascular Exam: regular rate/rhythm, normal heart sounds, normal peripheral pulses Gastrointestinal/Abdominal Exam: soft, normal bowel sounds, No tenderness 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, 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, 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 Exam: normal hearing, normal speech, PERRL, No facial asymmetry, No facial droop, No facial paresthesias Coordination/Gait Exam: normal finger to nose, normal gait, normal cerebellar function Motor/Sensory Exam: no motor deficit, no sensory deficit, no pronator drift Skin Exam: normal color, warm, dry SpO2 Interpretation: normal SpO2: 99 O2 Delivery: Nasal Cannula (2L) Ordered Tests: Medication Summary Discontinued Medications Generic Name Dose Route Start Last Admin Trade Name Elton PRN Reason Stop Dose Admin Diphenhydramine HCl 25 mg 02/15/24 21:13 02/15/24 21:28 Diphenhydramine Hcl 50 Mg/Ml Vial IV 02/15/24 21:14 25 mg STAT ONE Administration Diphenhydramine HCl Confirm 02/15/24 21:18 Diphenhydramine Hcl 50 Mg/Ml Vial Administered 02/15/24 21:19 Dose 50 mg .ROUTE .STK-MED ONE Morphine Sulfate 2 mg 02/15/24 21:13 02/15/24 21:30 Morphine Sulfate 2 Mg/Ml Inj IV 02/15/24 21:14 2 mg STAT ONE Administration Morphine Sulfate Confirm 02/15/24 21:18 Morphine Sulfate 2 Mg/Ml Inj Administered 02/15/24 21:19 Dose 2 mg .ROUTE .STK-MED ONE Ondansetron HCl 4 mg 02/15/24 21:13 02/15/24 21:36 Ondansetron Hcl 4 Mg/2 Ml Vial IV 02/15/24 21:14 Not Given STAT ONE Ondansetron HCl Confirm 02/15/24 21:18 Ondansetron Hcl 4 Mg/2 Ml Vial Administered 02/15/24 21:19 Dose 4 mg .ROUTE .STK-MED ONE Ondansetron HCl 4 mg 02/15/24 21:24 02/15/24 21:27 Zofran 4 Mg/Udtablet Orally Disintegrating PO 02/15/24 21:25 4 mg STAT ONE Administration Ondansetron HCl Confirm 02/15/24 21:26 Zofran 4 Mg/Udtablet Orally Disintegrating Administered 02/15/24 21:27 Dose 4 mg .ROUTE .STK-MED ONE - Progress Progress: improved Air Movement: fair Progress Note: 02/15/24 22:36 pt reported benadryl, zofran and morphine combination works well for her migraines allowed pt to rest 1h after medications given, pt reports resolution of migraine, neurologic exam negative for acute findings, remained negative after treatment no significant lab or imaging w/u initiated as pt has had multiple visits w/ imaging and labs negative for significant pathology on multiple occasions, KIM was reported to be consistent w/ her chronic migraines plan for dc home w/ close PCP follow up (Lalita) to discuss migraines, also has pain management follow up in coming weeks recommend to continue daily migraine prophylactic medications recommend avoiding loud sounds and bright lights to avoid triggering additional migraines recommend rest as possible w/ plenty of oral hydration w/ clear liquids return to ED if: KIM returns and does not respond to home migraine medications, develop confusion/slurred speech, have fall w/ head injury, lose consciousness, develop vision changes Blood Culture(s) Obtained: No Antibiotics given: No Counseled pt/family regarding: diagnosis, need for follow-up Medical Desision Making - Diagnostic Testing Diagnostic test were ordered, analyzed, and reviewed by me: No - Risk of complications Minimal Risk: Minimal risk of morbidity - Departure Departure Disposition: Home Clinical Impression: Migraine headache Qualifiers: Migraine type: migraine (< 15 days per month) without aura Status migrainosus presence: without status migrainosus Intractability: not intractable Qualified Code(s): G43.009 - Migraine without aura, not intractable, without status migrainosus Condition: Stable Critical Care Time: No Referrals: MARQUISE HENDERSON DO [Primary Care Provider] - Follow up/PCP as directed Additional Instructions: plan for dc home w/ close PCP follow up (Lalita) to discuss migraines, also has pain management follow up in coming weeks recommend to continue daily migraine prophylactic medications recommend avoiding loud sounds and bright lights to avoid triggering additional migraines recommend rest as possible w/ plenty of oral hydration w/ clear liquids return to ED if: KIM returns and does not respond to home migraine medications, develop confusion/slurred speech, have fall w/ head injury, lose consciousness, develop vision changes
[2024-02-15] MEDS ORDERED: MORPHINE SULFATE 2 MG INJ ONE (21:18)
[2024-02-15] MEDS ORDERED: Zofran 4 MG/2 ML VIAL ONE (21:18)
[2024-02-15] MEDS ORDERED: BENADRYL 50 MG/ML ONE (21:18)
[2024-02-15] MEDS ORDERED: ZOFRAN ODT 4 MG ONE (21:26)
[2024-02-15] MEDS: ZOFRAN ODT 4 MG PO ONE (21:27)
[2024-02-15] MEDS: BENADRYL 50 MG/ML IV ONE (21:28)
[2024-02-15] MEDS: MORPHINE SULFATE 2 MG INJ IV ONE (21:30)
[2024-02-15] MEDS: Zofran 4 MG/2 ML VIAL IV ONE (21:36)
[2024-02-15 22:41] VITALS: BP 115/78; PULSE 82; RESP 19
[2024-02-15 22:42] VITALS: O2SAT 99
== END 2024-02-15 22:56 | disposition home or self-care (01) ==
LOC: ED 19:59
DX: G43.009 Migraine without aura, not intractable, without status migrainosus (principal); E78.5 Hyperlipidemia, unspecified; Z79.01 Long term (current) use of anticoagulants; Z79.899 Other long term (current) drug therapy; Z99.81 Dependence on supplemental oxygen
CPT/HCPCS: 96374; 96375; 99283; 99284; J1200; J2270; J2405; Q0162

== ENCOUNTER 2024-02-23 12:13 | Emergency (ER) | payer MEDICARE, OTHER ==
[2024-02-23 13:00] VITALS: BP 130/70; PULSE 87; TEMP 98.2; O2SAT 97
[2024-02-23] MEDS ORDERED: BENADRYL 50 MG/ML ONE (13:14)
[2024-02-23] MEDS ORDERED: MORPHINE SULFATE 4 MG INJ ONE (13:14)
[2024-02-23] MEDS ORDERED: ZOFRAN ODT 4 MG ONE (13:14)
[2024-02-23] MEDS ORDERED: TYLENOL 325 MG ONE (13:15)
[2024-02-23] MEDS: TYLENOL 325 MG PO ONE (13:16)
[2024-02-23] MEDS: MORPHINE SULFATE 4 MG INJ IM ONE (13:17)
[2024-02-23] MEDS: ZOFRAN ODT 4 MG PO ONE (13:17)
[2024-02-23] MEDS: BENADRYL 50 MG/ML IM ONE (13:18)
--- NOTE | 2024-02-23 13:29 | ERPHSYRPT ---
- History of Present Illness Time Seen by Provider: 02/23/24 12:22 Source: patient Exam Limitations: no limitations Patient Subjective Stated Complaint: pt here for her chronic headache, she states she is going to see a specialist on wednesday for them Triage Nursing Assessment: pt alert, walked in, placed on 3 l nc as per home, resp easy, skin w/d/p. moves all ext well Physician History: 68 years old female with multiple medical problems including hypertension, hyperlipidemia, pulmonary embolism on Eliquis, TIA, chronic respiratory failure on oxygen, poorly controlled migraines well-known to this ER and this physician presented with generalized headache more in the frontotemporal area since yesterday with no significant relief using her routine antimigraine medications. Does report having 1 episode of nonprojectile, nonbilious vomiting last night. Denies any focal numbness tingling weakness or visual changes. No difficulty speech. Headache is similar to previous and is not the worst headache of her life. Patient is scheduled to see pain management/migraine clinic next Wednesday at [facility]. Allergies/Adverse Reactions: sumatriptan [From Imitrex] Allergy (Intermediate, Verified 02/23/24 12:59) Rash codeine Allergy (Mild, Verified 02/23/24 12:59) Rash MAKES SICK nitrofurantoin [From Macrobid] Allergy (Unknown, Verified 02/23/24 12:59) sulfamethoxazole [From Bactrim] Allergy (Unknown, Verified 02/23/24 12:59) trimethoprim [From Bactrim] Allergy (Unknown, Verified 02/23/24 12:59) sumatriptan succinate [From Imitrex] Allergy (Verified 02/23/24 12:59) hydrocodone bitartrate [From Vicodin] Adverse Reaction (Mild, Verified 02/23/24 12:59) Vomiting hydromorphone [From Dilaudid] Adverse Reaction (Mild, Verified 02/23/24 12:59) pt states makes headache worse. Home Medications: ALPRAZolam 1 MG [Xanax 1 mg] 1 mg PO TID 02/17/13 [History] Aspirin 81 mg PO DAILY 09/11/16 [History] Levothyroxine Sodium 50 Mcg [Synthroid 50 Mcg] 50 mcg PO DAILY 07/06/17 [History] Dexlansoprazole [Dexilant] 60 mg PO DAILY 01/21/20 [History] Albuterol 2.5 mg/3 ml Neb [Proventil 2.5 mg/3 ml Neb] 2.5 mg IH QID 07/23/20 [History] dilTIAZem HCL [Diltiazem 24Hr ER (Cd)] 120 mg PO DAILY 09/29/21 [History] Promethazine HCl 25 mg [Phenergan 25 mg] 25 mg PO BIDPRN PRN 01/18/22 [History] Apixaban [Eliquis] 5 mg PO BID 07/02/22 [History] Fluticasone/Umeclidin/Vilanter [Trelegy Ellipta 200-62.5-25] 1 each IH DAILY 07/02/22 [History] Cetirizine HCl [Zyrtec] 1 tab PO DAILY 11/08/22 [History] Magnesium Oxide 400 mg [Mag-Ox 400] 1 tab PO DAILY 11/08/22 [History] Sodium Bicarbonate 2 tab PO TID 11/08/22 [History] Omeprazole/Sodium Bicarbonate [Omeprazole-Bicarb 40-1,100 Cap] 1 each PO HS 11/28/22 [History] Atorvastatin Calcium [Lipitor 40Mg] 40 mg PO DAILY 03/09/23 [History] Tenapanor HCl [Ibsrela] 50 mg PO BID 05/05/23 [History] Ubrogepant [Ubrelvy] 100 mg PO DAILY PRN 05/05/23 [History] Hx Tetanus, Diphtheria Vaccination/Date Given: Yes Hx Influenza Vaccination/Date Given: Yes Hx Pneumococcal Vaccination/Date Given: Yes Immunizations Up to Date: Yes Travel Risk - International Travel Have you traveled outside of the country in past 3 weeks: No - Emerging Infectious Disease Are you exhibiting symptoms associated with any current EIDs: No - Review of Systems Constitutional: No Symptoms Eyes: No Symptoms Ears, Nose, & Throat: No Symptoms Respiratory: No Symptoms Cardiac: No Symptoms Abdominal/Gastrointestinal: Nausea, Vomiting Genitourinary Symptoms: No Symptoms Musculoskeletal: Arthralgias Neurological: Headache Psychological: Anxiety Endocrine: No Symptoms Immunological/Allergic: No Symptoms - Past Medical History Pertinent Past Medical History: Yes Neurological History: Migraines, TIA ENT History: Cataracts Cardiac History: High Cholesterol Respiratory History: Bronchitis, COPD, Pneumonia, Pulmonary Embolism Endocrine Medical History: Hypothyroidism Musculoskeletal History: Osteoarthritis GI Medical History: GERD, Gallbladder Disease, Other History: Other Psycho-Social History: Anxiety, Depression, Panic Disorder Female Reproductive Disorders: No Pertinent History Other Medical History: frequent uti's, chronic pseudo obstruction, blood clot, partial bowel blockage. septic in august 2023. post a cath replaced 10/15/23 - Past Surgical History Past Surgical History: Yes Neuro Surgical History: No Pertinent History Cardiac: No Pertinent History Respiratory: No Pertinent History Gastrointestinal: Cholecystectomy, Other Genitourinary: No Pertinent History Musculoskeletal: No Pertinent History Female Surgical History: Hysterectomy Other Surgical History: all of large intestine removed and most of small intest jeffrey removed, feeding tube in 2004 removed in 2007. Significant Family History: no pertinent family hx - Social History Smoking Status: Never smoker Exposure to second hand smoke: No Alcohol Use: None Drug Use: none Patient Lives Alone: Yes - Social Determinants of Health Will the patient participate in the screening: Yes Do you worry about a steady place to live?: No Do you have any problems with any of the following?: No known problems In the past 12 months,have you had to go without utilities?: No Transportation Issues: No Has anyone in your support network made you feel unsafe?: No Have you or anyone in your house had to go without enough: No - Nursing Vital Signs Nursing Vital Signs: Initial Vital Signs Temperature 98.2 F 02/23/24 12:14 Pulse Rate 87 02/23/24 12:14 Respiratory Rate 16 02/23/24 12:14 Blood Pressure 130/70 02/23/24 12:14 O2 Sat by Pulse Oximetry 97 02/23/24 12:14 Pain Scale Pain Intensity 10 - Physical Exam General Appearance: no apparent distress, alert Eye Exam: PERRL/EOMI Ears, Nose, Throat Exam: normal ENT inspection Neck Exam: normal inspection, non-tender, supple, full range of motion, No meningismus Respiratory Exam: normal breath sounds, lungs clear Cardiovascular Exam: regular rate/rhythm, normal heart sounds Gastrointestinal/Abdominal Exam: soft, No tenderness 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, 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, 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: normal hearing, normal speech, PERRL Coordination/Gait Exam: normal finger to nose, normal gait, normal cerebellar function Motor/Sensory Exam: no motor deficit, no sensory deficit, no pronator drift, negative Babinski's sign DTR Exam: bicep (R): 2+, bicep (L): 2+, knee (R): 2+, knee (L): 2+ Skin Exam: normal color SpO2 Interpretation: normal SpO2: 97 O2 Delivery: Room Air Ordered Tests: Medication Summary Discontinued Medications Generic Name Dose Route Start Last Admin Trade Name Elton PRN Reason Stop Dose Admin Acetaminophen 975 mg 02/23/24 12:55 02/23/24 13:16 Acetaminophen 325 Mg Tablet PO 02/23/24 12:56 975 mg STAT ONE Administration Acetaminophen Confirm 02/23/24 13:15 Acetaminophen 325 Mg Tablet Administered 02/23/24 13:16 Dose 975 mg .ROUTE .STK-MED ONE Diphenhydramine HCl 50 mg 02/23/24 12:55 02/23/24 13:18 Diphenhydramine Hcl 50 Mg/Ml Vial IM 02/23/24 12:56 50 mg STAT ONE Administration Diphenhydramine HCl Confirm 02/23/24 13:14 Diphenhydramine Hcl 50 Mg/Ml Vial Administered 02/23/24 13:15 Dose 50 mg .ROUTE .STK-MED ONE Morphine Sulfate 4 mg 02/23/24 12:55 02/23/24 13:17 Morphine Sulfate 4 Mg/Ml Injection IM 02/23/24 12:56 4 mg STAT ONE Administration Morphine Sulfate Confirm 02/23/24 13:14 Morphine Sulfate 4 Mg/Ml Injection Administered 02/23/24 13:15 Dose 4 mg .ROUTE .STK-MED ONE Ondansetron HCl 4 mg 02/23/24 12:55 02/23/24 13:17 Zofran 4 Mg/Udtablet Orally Disintegrating PO 02/23/24 12:56 4 mg STAT ONE Administration Ondansetron HCl Confirm 02/23/24 13:14 Zofran 4 Mg/Udtablet Orally Disintegrating Administered 02/23/24 13:15 Dose 4 mg .ROUTE .STK-MED ONE - Progress Progress: improved, re-examined Air Movement: good Progress Note: 02/23/24 13:35 68 years old with multiple medical problems including poorly controlled migraine well-known to this ER and this physician is evaluated for recurrent migraines since yesterday. Patient has nonfocal neuroexam throughout stay in the ER Headache is similar to previous and is not the worst headache of her life. Given migraine cocktail with Benadryl, Tylenol, Zofran and morphine, on reevaluation her headache is better and patient wants to go home. Do not think patient needs imaging or any other workup and can be discharged with outpatient follow-up. Discussed signs symptoms of worsening needing return to ER which she seems understanding. Blood Culture(s) Obtained: No Antibiotics given: No Counseled pt/family regarding: diagnosis, need for follow-up Medical Desision Making - Risk of complications The pt has a mod risk of morbidity or mortality based on: Need for prescription drug management - Departure Departure Disposition: Home Clinical Impression: Migraine Qualifiers: Migraine type: unspecified Status migrainosus presence: without status m igrainosus Intractability: not intractable Qualified Code(s): G43.909 - Migraine, unspecified, not intractable, without status migrainosus Condition: Stable Critical Care Time: No Referrals: MARQUISE HENDERSON DO [Primary Care Provider] - Follow up with PCP 1 day Instructions: Headache, Adult (DC) Additional Instructions: Follow-up with your primary care and neurology for reevaluation. Keep appointment with pain management. Continue with your current home migraine medications as recommended. Return to ER for intractable headache/vomiting/numbness tingling focal weakness etc.
[2024-02-23 13:34] VITALS: RESP 18
== END 2024-02-23 13:53 | disposition home or self-care (01) ==
LOC: ED 12:13
DX: G43.909 Migraine, unspecified, not intractable, without status migrainosus (principal); R11.2 Nausea with vomiting, unspecified; E78.5 Hyperlipidemia, unspecified; Z79.01 Long term (current) use of anticoagulants; Z79.899 Other long term (current) drug therapy
CPT/HCPCS: 96372; 99283; 99284; J1200; J2270; Q0162; A9270-GY

== ENCOUNTER 2024-03-03 16:05 | Emergency (ER) | payer MEDICARE, OTHER ==
--- NOTE | 2024-03-03 16:07 | ERPHSYRPT ---
- History of Present Illness Time Seen by Provider: 03/03/24 16:06 Historian: patient, EMS, old records Exam Limitations: no limitations Physician History: This is a 68-year-old white female patient of Dr. Henderson who was brought to the emergency department by the damage appraiser service secondary to complaint of chest tightness at a level of 1 out of 10 that came on suddenly while she was sitting in the recliner at her home. The chest tightness was constant and she became concerned. During the interview patient spoke mostly about her sore throat and the cervical spine pain that she has and her neurologist. I reminded her that she was here because of chest pain. She stated that she had that 2. Patient has a history of COPD that is oxygen dependent with 3 L of oxygen via nasal cannula. Patient has a history of migraine headache, panic disorder, hyperlipidemia, bronchitis, hypothyroidism and pulmonary embolus (she is anticoagulated). She does see a Dr. Navarro out of [place]. She has never been diagnosed with coronary artery disease although she states she has had a heart attack in the past. Timing/Duration: today Activities at Onset: rest Quality: tightness Location: substernal, central Chest Pain Radiation: no radiation Severity of Pain-Max: mild Severity of Pain-Current: mild Modifying Factors: Improves With: nothing Associated Symptoms: denies symptoms Nitro Today/Relief: no nitro taken today Aspirin Treatment Today: no aspirin today Allergies/Adverse Reactions: sumatriptan [From Imitrex] Allergy (Intermediate, Verified 03/03/24 16:06) Rash codeine Allergy (Mild, Verified 03/03/24 16:06) Rash MAKES SICK nitrofurantoin [From Macrobid] Allergy (Unknown, Verified 03/03/24 16:06) sulfamethoxazole [From Bactrim] Allergy (Unknown, Verified 03/03/24 16:06) trimethoprim [From Bactrim] Allergy (Unknown, Verified 03/03/24 16:06) sumatriptan succinate [From Imitrex] Allergy (Verified 03/03/24 16:06) hydrocodone bitartrate [From Vicodin] Adverse Reaction (Mild, Verified 03/03/24 16:06) Vomiting hydromorphone [From Dilaudid] Adverse Reaction (Mild, Verified 03/03/24 16:06) pt states makes headache worse. Home Medications: ALPRAZolam 1 MG [Xanax 1 mg] 1 mg PO TID 02/17/13 [History] Aspirin 81 mg PO DAILY 09/11/16 [History] Levothyroxine Sodium 50 Mcg [Synthroid 50 Mcg] 50 mcg PO DAILY 07/06/17 [History] Dexlansoprazole [Dexilant] 60 mg PO DAILY 01/21/20 [History] Albuterol 2.5 mg/3 ml Neb [Proventil 2.5 mg/3 ml Neb] 2.5 mg IH QID 07/23/20 [History] dilTIAZem HCL [Diltiazem 24Hr ER (Cd)] 120 mg PO DAILY 09/29/21 [History] Promethazine HCl 25 mg [Phenergan 25 mg] 25 mg PO BIDPRN PRN 01/18/22 [History] Apixaban [Eliquis] 5 mg PO BID 07/02/22 [History] Fluticasone/Umeclidin/Vilanter [Trelegy Ellipta 200-62.5-25] 1 each IH DAILY 07/02/22 [History] Cetirizine HCl [Zyrtec] 1 tab PO DAILY 11/08/22 [History] Magnesium Oxide 400 mg [Mag-Ox 400] 1 tab PO DAILY 11/08/22 [History] Sodium Bicarbonate 2 tab PO TID 11/08/22 [History] Omeprazole/Sodium Bicarbonate [Omeprazole-Bicarb 40-1,100 Cap] 1 each PO HS 11/28/22 [History] Atorvastatin Calcium [Lipitor 40Mg] 40 mg PO DAILY 03/09/23 [History] Tenapanor HCl [Ibsrela] 50 mg PO BID 05/05/23 [History] Ubrogepant [Ubrelvy] 100 mg PO DAILY PRN 05/05/23 [History] Hx Tetanus, Diphtheria Vaccination/Date Given: Yes Hx Influenza Vaccination/Date Given: Yes Hx Pneumococcal Vaccination/Date Given: Yes Travel Risk - International Travel Have you traveled outside of the country in past 3 weeks: No - Emerging Infectious Disease Are you exhibiting symptoms associated with any current EIDs: No - Review of Systems Constitutional: No Symptoms Eyes: No Symptoms Ears, Nose, & Throat: No Symptoms Respiratory: No Symptoms Cardiac: Chest Pain Abdominal/Gastrointestinal: No Symptoms Genitourinary Symptoms: No Symptoms Musculoskeletal: No Symptoms Skin: No Symptoms Neurological: No Symptoms Psychological: No Symptoms Endocrine: No Symptoms Hematologic/Lymphatic: No Symptoms Immunological/Allergic: No Symptoms All Other Systems: Reviewed and Negative - Past Medical History Pertinent Past Medical History: Yes Neurological History: Migraines, TIA ENT History: Cataracts Cardiac History: High Cholesterol Respiratory History: Bronchitis, COPD, Pneumonia, Pulmonary Embolism Endocrine Medical History: Hypothyroidism Musculoskeletal History: Osteoarthritis GI Medical History: GERD, Gallbladder Disease, Other History: Other Psycho-Social History: Anxiety, Depression, Panic Disorder Female Reproductive Disorders: No Pertinent History Other Medical History: frequent uti's, chronic pseudo obstruction, blood clot, partial bowel blockage. septic in august 2023. post a cath replaced 10/15/23 - Past Surgical History Past Surgical History: Yes Neuro Surgical History: No Pertinent History Cardiac: No Pertinent History Respiratory: No Pertinent History Gastrointestinal: Cholecystectomy, Other Genitourinary: No Pertinent History Musculoskeletal: No Pertinent History Female Surgical History: Hysterectomy Other Surgical History: all of large intestine removed and most of small intestines removed, feeding tube in 2004 removed in 2007. Significant Family History: no pertinent family hx - Social History Smoking Status: Never smoker Exposure to second hand smoke: No Alcohol Use: None Drug Use: none Patient Lives Alone: Yes - Social Determinants of Health Will the patient participate in the screening: Yes Do you worry about a steady place to live?: No In the past 12 months,have you had to go without utilities?: No Transportation Issues: No Has anyone in your support network made you feel unsafe?: No Have you or anyone in your house had to go without enough: No - Nursing Vital Signs Nursing Vital Signs: Initial Vital Signs Temperature 97.4 F 03/03/24 16:06 Pulse Rate 90 03/03/24 16:06 Respiratory Rate 14 03/03/24 16:06 Blood Pressure 96/69 03/03/24 16:06 O2 Sat by Pulse Oximetry 98 03/03/24 16:06 Pain Scale Pain Intensity 1 - Physical Exam General Appearance: no apparent distress, alert, anxiety Eye Exam: PERRL/EOMI, eyes nml inspection Ears, Nose, Throat Exam: normal ENT inspection, moist mucous membranes Neck Exam: normal inspection, non-tender, supple, full range of motion Respiratory Exam: normal breath sounds, lungs clear, airway intact, No chest tenderness, No respiratory distress Cardiovascular Exam: regular rate/rhythm, normal heart sounds, normal peripheral pulses Gastrointestinal/Abdomen Exam: soft, normal bowel sounds, No tenderness Pelvic Exam: not done Rectal Exam: not done Back Exam: normal inspection, normal range of motion, No CVA tenderness, No vertebral tenderness Extremity Exam: normal inspection, normal range of motion, pelvis stable Neurologic Exam: alert, 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, cooperative, top installer II-XII nml as tested, sensation nml Skin Exam: normal color, warm, dry Lymphatic Exam: No adenopathy SpO2 Interpretation: normal O2 Delivery: Room Air - Course Nursing assessment & vital signs reviewed: Yes Ordered Tests: Active Orders 24 hr Category Date Time Status EKG-ER Only STAT Care 03/03/24 16:34 Active IV Insertion STAT Care 03/03/24 16:34 Active Pulse Oximetry (ED) STAT Care 03/03/24 16:34 Active CHEST 1 VIEW (PORTABLE) Stat Exams 03/03/24 16:35 Taken BLOOD CULTURE Stat Lab 03/03/24 16:55 Received CBC W DIFF Stat Lab 03/03/24 16:34 Completed CMP Stat Lab 03/03/24 16:55 Completed Lactic Acid Stat Lab 03/03/24 16:57 Completed MAGNESIUM Stat Lab 03/03/24 16:55 Completed MONO SCREEN Stat Lab 03/03/24 16:55 Completed NT PRO BNPII Stat Lab 03/03/24 16:55 Completed TROPONIN Q4H Lab 03/03/24 16:55 Completed TROPONIN Q4H Lab 03/03/24 20:45 Ordered TROPONIN Q4H Lab 03/04/24 00:45 Ordered Lab/Rad Data: Laboratory Result Diagrams 03/03/24 16:34 03/03/24 16:55 Laboratory Results 03/03/24 03/03/24 03/03/24 Range/Units 16:57 16:55 16:55 WBC (3.98-10.04) x10^3/uL RBC (3.93-5.22) x10^6/uL Hgb (11.2-15.7) g/dL Hct (34.1-44.9) % MCV (79.4-94.8) fL MCH (25.6-32.2) pg MCHC (32.2-35.5) g/dL RDW (11.7-14.4) % Plt Count (182-369) x10^3/uL MPV (9.4-12.3) fL Gran % (34.0-71.1) % Immature Gran % (Auto) (0.001-0.429) % Nucleat RBC Rel Count (0.00-0.2) % Eos # (Auto) (0.04-0.36) x10^3/uL Immature Gran # (Auto) (0.001-0.031) x10^3u/L Absolute Lymphs (auto) (1.18-3.74) x10^3/uL Absolute Monos (auto) (0.24-0.86) x10^3/uL Absolute Nucleated RBC (0.00-0.012) x10^3u/L Lymphocytes % (19.3-51.7) % Monocytes % (4.7-12.5) % Eosinophils % (0.7-5.8) % Basophils % (0.1-1.2) % Absolute Granulocytes (1.56-6.13) x10^3/uL Basophils # (0.01-0.08) x10^3/uL Sodium (135-145) mmol/L Potassium (3.5-5.1) mmol/L Chloride (98-107) mmol/L Carbon Dioxide (22-30) mmol/L Anion Gap (5-15) MEQ/L BUN (7-17) mg/dL Creatinine (0.52-1.04) mg/dL Estimated GFR ML/MIN Glucose (74-106) mg/dL Lactic Acid 0.9 (0.4-2.0) Calcium (8.4-10.2) mg/dL Magnesium (1.6-2.3) mg/dL Total Bilirubin (0.2-1.3) mg/dL AST (14-36) U/L ALT (0-35) U/L Alkaline Phosphatase (38-126) U/L Troponin I (0.000-0.033) ng/mL NT-Pro-B Natriuret Pep (<300) pg/mL Serum Total Protein (6.3-8.2) g/dL Albumin (3.5-5.0) g/dL Monoscreen NEGATIVE (NEGATIVE) Influenza Type A Ag NEGATIVE (NEGATIVE) Influenza Type B Ag NEGATIVE (NEGATIVE) RSV (PCR) NEGATIVE (NEGATIVE) SARS-CoV-2 (PCR) NEGATIVE (NEGATIVE) Group A Strep Antibody (NEGATIVE) 03/03/24 03/03/24 03/03/24 Range/Units 16:55 16:55 16:55 WBC (3.98-10.04) x10^3/uL RBC (3.93-5.22) x10^6/uL Hgb (11.2-15.7) g/dL Hct (34.1-44.9) % MCV (79.4-94.8) fL MCH (25.6-32.2) pg MCHC (32.2-35.5) g/dL RDW (11.7-14.4) % Plt Count (182-369) x10^3/uL MPV (9.4-12.3) fL Gran % (34.0-71.1) % Immature Gran % (Auto) (0.001-0.429) % Nucleat RBC Rel Count (0.00-0.2) % Eos # (Auto) (0.04-0.36) x10^3/uL Immature Gran # (Auto) (0.001-0.031) x10^3u/L Absolute Lymphs (auto) (1.18-3.74) x10^3/uL Absolute Monos (auto) (0.24-0.86) x10^3/uL Absolute Nucleated RBC (0.00-0.012) x10^3u/L Lymphocytes % (19.3-51.7) % Monocytes % (4.7-12.5) % Eosinophils % (0.7-5.8) % Basophils % (0.1-1.2) % Absolute Granulocytes (1.56-6.13) x10^3/uL Basophils # (0.01-0.08) x10^3/uL Sodium 138 (135-145) mmol/L Potassium 4.2 (3.5-5.1) mmol/L Chloride 107 (98-107) mmol/L Carbon Dioxide 23 (22-30) mmol/L Anion Gap 12.5 (5-15) MEQ/L BUN 22 H (7-17) mg/dL Creatinine 1.25 H (0.52-1.04) mg/dL Estimated GFR 47.0 ML/MIN Glucose 103 (74-106) mg/dL Lactic Acid (0.4-2.0) Calcium 9.0 (8.4-10.2) mg/dL Magnesium 1.6 (1.6-2.3) mg/dL Total Bilirubin 0.60 (0.2-1.3) mg/dL AST 25 (14-36) U/L ALT 17 (0-35) U/L Alkaline Phosphatase 126 (38-126) U/L Troponin I < 0.012 (0.000-0.033) ng/mL NT-Pro-B Natriuret Pep 258 (<300) pg/mL Serum Total Protein 6.5 (6.3-8.2) g/dL Albumin 3.7 (3.5-5.0) g/dL Monoscreen (NEGATIVE) Influenza Type A Ag (NEGATIVE) Influenza Type B Ag (NEGATIVE) RSV (PCR) (NEGATIVE) SARS-CoV-2 (PCR) (NEGATIVE) Group A Strep Antibody NOT DETECTED (NEGATIVE) 03/03/24 Range/Units 16:34 WBC 5.4 (3.98-10.04) x10^3/uL RBC 3.99 (3.93-5.22) x10^6/uL Hgb 11.9 (11.2-15.7) g/dL Hct 36.4 (34.1-44.9) % MCV 91.2 (79.4-94.8) fL MCH 29.8 (25.6-32.2) pg MCHC 32.7 (32.2-35.5) g/dL RDW 12.8 (11.7-14.4) % Plt Count 170 L (182-369) x10^3/uL MPV 10.0 (9.4-12.3) fL Gran % 77.2 H (34.0-71.1) % Immature Gran % (Auto) 0.4 (0.001-0.429) % Nucleat RBC Rel Count 0.0 (0.00-0.2) % Eos # (Auto) 0.04 (0.04-0.36) x10^3/uL Immature Gran # (Auto) 0.02 (0.001-0.031) x10^3u/L Absolute Lymphs (auto) 0.80 L (1.18-3.74) x10^3/uL Absolute Monos (auto) 0.35 (0.24-0.86) x10^3/uL Absolute Nucleated RBC 0.00 (0.00-0.012) x10^3u/L Lymphocytes % 14.7 L (19.3-51.7) % Monocytes % 6.4 (4.7-12.5) % Eosinophils % 0.7 (0.7-5.8) % Basophils % 0.6 (0.1-1.2) % Absolute Granulocytes 4.19 (1.56-6.13) x10^3/uL Basophils # 0.03 (0.01-0.08) x10^3/uL Sodium (135-145) mmol/L Potassium (3.5-5.1) mmol/L Chloride (98-107) mmol/L Carbon Dioxide (22-30) mmol/L Anion Gap (5-15) MEQ/L BUN (7-17) mg/dL Creatinine (0.52-1.04) mg/dL Estimated GFR ML/MIN Glucose (74-106) mg/dL Lactic Acid (0.4-2.0) Calcium (8.4-10.2) mg/dL Magnesium (1.6-2.3) mg/dL Total Bilirubin (0.2-1.3) mg/dL AST (14-36) U/L ALT (0-35) U/L Alkaline Phosphatase (38-126) U/L Troponin I (0.000-0.033) ng/mL NT-Pro-B Natriuret Pep (<300) pg/mL Serum Total Protein (6.3-8.2) g/dL Albumin (3.5-5.0) g/dL Monoscreen (NEGATIVE) Influenza Type A Ag (NEGATIVE) Influenza Type B Ag (NEGATIVE) RSV (PCR) (NEGATIVE) SARS-CoV-2 (PCR) (NEGATIVE) Group A Strep Antibody (NEGATIVE) - Progress Progress: re-examined Air Movement: good Progress Note: 03/03/24 16:47 My medical decision making and the assignment of moderate complexity to this patient's medical issue today is based on review of the patient's past medical history, review of the patient's medication list, reviewed patient drug allergy list, history present illness and physical findings on examination. The workup in this patient includes placement of a intravenous line, twelve-lead EKG, BNP, troponin level, CBC, CMP, magnesium level, chest x-ray, viral swabs, monotest, group A strep test. Differential diagnosis includes but is not limited to electrolyte abnormalities, arrhythmia, myocardial infarction, COPD exacerbation, CHF, pneumonia, viral illness, strep pharyngitis 03/03/24 18:22 I interpreted the patient's laboratory data results. Based on the laboratory data results, the patient does not have an acute, emergent medical issue. I interpreted the preliminary chest x-ray report on this patient. There are no acute cardiopulmonary processes. Blood Culture(s) Obtained: No Antibiotics given: No Counseled pt/family regarding: lab results, rad results Medical Desision Making - Independent Historian Additional History obtained from: Building Maintenance Engineer/EMT - Diagnostic Testing Diagnostic test were ordered, analyzed, and reviewed by me: Yes Radiological Interpretation: Interpreted by me, Teleradiologist Report - Risk of complications Low Risk: Low risk of morbidity from additional dx testing or treatment - Departure Departure Disposition: Home Clinical Impression: Nonspecific chest pain Condition: Stable Critical Care Time: No Referrals: MARQUISE HENDERSON DO [Primary Care Provider] - Follow up/PCP as directed Additional Instructions: Drink plenty of fluids. Continue taking your medications as prescribed. Call your multi operation machine operator and primary care provider on 03/06/2024 to make arranges for follow-up appointment to be seen in the next 5 to 7 days.
[2024-03-03 16:16] VITALS: TEMP 97.4
[2024-03-03 17:15] LABS: Absolute Neutrophil Ct (ANC) 4.19 x10^3/uL (1.56-6.13); BASOPHIL % 0.6 % (0.1-1.2); Basophil (Absolute #) 0.03 x10^3/uL (0.01-0.08); Eosinophil % 0.7 % (0.7-5.8); Eosinophil (Absolute #) 0.04 x10^3/uL (0.04-0.36); Hematocrit 36.4 % (34.1-44.9); Hemoglobin 11.9 g/dL (11.2-15.7); IMMATURE GRAN # 0.02 x10^3u/L (0.001-0.031); IMMATURE GRAN % 0.4 % (0.001-0.429); Lymphocytes % 14.7 % (19.3-51.7); Mean Cell Volume 91.2 fL (79.4-94.8); Mean Corpuscular Hemoglobin 29.8 pg (25.6-32.2); Mean Corpuscular Hgb Concent. 32.7 g/dL (32.2-35.5); Monocyte (Absolute #) 0.35 x10^3/uL (0.24-0.86); Monocytes % 6.4 % (4.7-12.5); Neutrophil % 77.2 % (34.0-71.1); Platelet Count 170 x10^3/uL (182-369); Red Blood Count 3.99 x10^6/uL (3.93-5.22); Red Cell Distribution Width 12.8 % (11.7-14.4); White Blood Count 5.4 x10^3/uL (3.98-10.04)
[2024-03-03 17:42] LABS: ALBUMIN 3.7 g/dL (3.5-5.0); ANION GAP 12.5 MEQ/L (5-15); BILIRUBIN,TOTAL 0.6 mg/dL (0.2-1.3); Creatinine 1 1.25 mg/dL (0.52-1.04); MAGNESIUM 1.6 mg/dL (1.6-2.3); Potassium 4.2 mmol/L (3.5-5.1); Total Protein 6.5 g/dL (6.3-8.2)
[2024-03-03 17:54] LABS: INFLUENZA A NEGATIVE (NEGATIVE); INFLUENZA B NEGATIVE (NEGATIVE); NT PRO BNPII 258 pg/mL (<300); RESPIRATORY SYNCTIAL VIRUS NEGATIVE (NEGATIVE); SARS-CoV-2 Xpert Express NEGATIVE (NEGATIVE); TROPONIN < 0.012 ng/mL (0.000-0.033)
[2024-03-03 18:23] VITALS: PULSE 79; RESP 18; O2SAT 96
[2024-03-03 18:36] VITALS: BP 96/71
--- NOTE | 2024-03-03 22:14 | XRAY ---
Indication: Chest pain. Comparison: November 06, 2023 Portable chest unchanged again demonstrating minimal right base fibrosis/scarring and right lung calcified granulomas. Remaining heart and lungs unremarkable again with right Port-A-Cath. Bony thorax intact with osteopenia. Impression: Continued nonacute chest with chronic features.
== END 2024-03-03 18:36 | disposition home or self-care (01) ==
LOC: ED 16:05
DX: R07.9 Chest pain, unspecified (principal); J02.9 Acute pharyngitis, unspecified; M54.2 Cervicalgia; E78.5 Hyperlipidemia, unspecified; Z79.01 Long term (current) use of anticoagulants; Z79.899 Other long term (current) drug therapy; Z99.81 Dependence on supplemental oxygen
CPT/HCPCS: 0241U; 36415; 71045; 80053; 83605; 83735; 83880; 84484; 85025; 86308; 87040; 87651; 93005; 94760; 99285; 99284; J1642

== ENCOUNTER 2024-03-24 21:55 | Emergency (ER) | payer MEDICARE, OTHER ==
--- NOTE | 2024-03-24 21:59 | ERPHSYRPT ---
- History of Present Illness Time Seen by Provider: 03/24/24 21:59 Source: patient Exam Limitations: no limitations Physician History: This is a 68-year-old white female patient who arrives by private vehicle accompanied by her granddaughter for evaluation treatment of her recurrent migraine headache. Patient sees a neurologist and they are working on different dosing to help her back pain and migraine headache pain. Patient's primary care provider is Dr. Henderson. Patient has a history of migraine headaches, panic disorder, COPD, hyperlipidemia, hypothyroidism and TIAs. Patient took her Imitrex today but it was not helpful. Patient does not have chest pain. Patient does not have shortness of breath. Patient states that this is her typical migraine headache Timing/Duration: today Quality: aching Head Pain Location: global Severity of Pain-Max: moderate Severity of Pain-Current: moderate Recent Head Trauma: no recent headache/trauma, chronic headaches Modifying Factors: Improves With: exposure to light, noise Associated Symptoms: denies symptoms Previous symptoms: same symptoms as today, no recent treatment Allergies/Adverse Reactions: sumatriptan [From Imitrex] Allergy (Intermediate, Verified 03/24/24 21:58) Rash codeine Allergy (Mild, Verified 03/24/24 21:58) Rash MAKES SICK nitrofurantoin [From Macrobid] Allergy (Unknown, Verified 03/24/24 21:58) sulfamethoxazole [From Bactrim] Allergy (Unknown, Verified 03/24/24 21:58) trimethoprim [From Bactrim] Allergy (Unknown, Verified 03/24/24 21:58) sumatriptan succinate [From Imitrex] Allergy (Verified 03/24/24 21:58) hydrocodone bitartrate [From Vicodin] Adverse Reaction (Mild, Verified 03/24/24 21:58) Vomiting hydromorphone [From Dilaudid] Adverse Reaction (Mild, Verified 03/24/24 21:58) pt states makes headache worse. Home Medications: ALPRAZolam 1 MG [Xanax 1 mg] 1 mg PO TID 02/17/13 [History] Aspirin 81 mg PO DAILY 09/11/16 [History] Levothyroxine Sodium 50 Mcg [Synthroid 50 Mcg] 50 mcg PO DAILY 07/06/17 [History] Dexlansoprazole [Dexilant] 60 mg PO DAILY 01/21/20 [History] Albuterol 2.5 mg/3 ml Neb [Proventil 2.5 mg/3 ml Neb] 2.5 mg IH QID 07/23/20 [History] dilTIAZem HCL [Diltiazem 24Hr ER (Cd)] 120 mg PO DAILY 09/29/21 [History] Promethazine HCl 25 mg [Phenergan 25 mg] 25 mg PO BIDPRN PRN 01/18/22 [History] Apixaban [Eliquis] 5 mg PO BID 07/02/22 [History] Fluticasone/Umeclidin/Vilanter [Trelegy Ellipta 200-62.5-25] 1 each IH DAILY 07/02/22 [History] Cetirizine HCl [Zyrtec] 1 tab PO DAILY 11/08/22 [History] Magnesium Oxide 400 mg [Mag-Ox 400] 1 tab PO DAILY 11/08/22 [History] Sodium Bicarbonate 2 tab PO TID 11/08/22 [History] Omeprazole/Sodium Bicarbonate [Omeprazole-Bicarb 40-1,100 Cap] 1 each PO HS 11/28/22 [History] Atorvastatin Calcium [Lipitor 40Mg] 40 mg PO DAILY 03/09/23 [History] Tenapanor HCl [Ibsrela] 50 mg PO BID 05/05/23 [History] Ubrogepant [Ubrelvy] 100 mg PO DAILY PRN 05/05/23 [History] Buprenorphine 1 each TD WEEKLY 03/24/24 [History] Hx Tetanus, Diphtheria Vaccination/Date Given: Yes Hx Influenza Vaccination/Date Given: Yes Hx Pneumococcal Vaccination/Date Given: Yes Travel Risk - International Travel Have you traveled outside of the country in past 3 weeks: No - Emerging Infectious Disease Are you exhibiting symptoms associated with any current EIDs: No - Review of Systems Constitutional: No Symptoms Eyes: No Symptoms Ears, Nose, & Throat: No Symptoms Respiratory: No Symptoms Cardiac: No Symptoms Abdominal/Gastrointestinal: No Symptoms Genitourinary Symptoms: No Symptoms Musculoskeletal: No Symptoms Skin: No Symptoms Neurological: Headache Psychological: No Symptoms Endocrine: No Symptoms Hematologic/Lymphatic: No Symptoms Immunological/Allergic: No Symptoms All Other Systems: Reviewed and Negative - Past Medical History Pertinent Past Medical History: Yes Neurological History: Migraines, TIA ENT History: Cataracts Cardiac History: High Cholesterol Respiratory History: Bronchitis, COPD, Pneumonia, Pulmonary Embolism Endocrine Medical History: Hypothyroidism Musculoskeletal History: Osteoarthritis GI Medical History: GERD, Gallbladder Disease, Other History: Other Psycho-Social History: Anxiety, Depression, Panic Disorder Female Reproductive Disorders: No Pertinent History Other Medical History: frequent uti's, chronic pseudo obstruction, blood clot, partial bowel blockage. septic in august 2023. post a cath replaced 10/15/23 - Past Surgical History Past Surgical History: Yes Neuro Surgical History: No Pertinent History Cardiac: No Pertinent History Respiratory: No Pertinent History Gastrointestinal: Cholecystectomy, Other Genitourinary: No Pertinent History Musculoskeletal: No Pertinent History Female Surgical History: Hysterectomy Other Surgical History: all of large intestine removed and most of small intestines removed, feeding tube in 2004 removed in 2007. Significant Family History: no pertinent family hx - Social History Smoking Status: Never smoker Exposure to second hand smoke: No Alcohol Use: None Drug Use: none Patient Lives Alone: Yes - Social Determinants of Health Will the patient participate in the screening: Yes Do you worry about a steady place to live?: No In the past 12 months,have you had to go without utilities?: No Transportation Issues: No Has anyone in your support network made you feel unsafe?: No Have you or anyone in your house had to go without enough: No - Nursing Vital Signs Nursing Vital Signs: Initial Vital Signs Temperature 96.9 F 03/24/24 22:00 Pulse Rate 115 H 03/24/24 22:00 Respiratory Rate 20 03/24/24 22:00 Blood Pressure 117/72 03/24/24 22:00 O2 Sat by Pulse Oximetry 98 03/24/24 22:00 Pain Scale Pain Intensity 10 - Physical Exam General Appearance: no apparent distress, alert, anxiety Eye Exam: PERRL/EOMI, eyes nml inspection Ears, Nose, Throat Exam: normal ENT inspection, moist mucous membranes Neck Exam: normal inspection, non-tender, supple, full range of motion Respiratory Exam: airway intact, No chest tenderness, No respiratory distress Gastrointestinal/Abdominal Exam: No tenderness 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, 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, cooperative park activities coordinator Exam: normal hearing, normal speech, PERRL Coordination/Gait Exam: normal finger to nose, normal gait, normal cerebellar function Skin Exam: normal color, warm, dry Lymphatic Exam: No adenopathy SpO2 Interpretation: normal O2 Delivery: Room Air - Course Nursing assessment & vital signs reviewed: Yes - Progress Progress: improved, re-examined Air Movement: good Progress Note: 03/24/24 22:18 My medical decision making and the assignment of low complexity to this patient's medical issue today is based on review of the patient's past medical history, review of the patient's medication list, review of the patient's drug allergy list, history present illness and physical findings on examination. The workup in this patient does not require any radiographic or laboratory studies. Differential diagnosis includes anxiety about health, migraine headache and panic disorder Blood Culture(s) Obtained: No Antibiotics given: No Counseled pt/family regarding: diagnosis, need for follow-up Medical Desision Making - Diagnostic Testing Diagnostic test were ordered, analyzed, and reviewed by me: No - Risk of complications Minimal Risk: Minimal risk of morbidity - Departure Departure Disposition: Home Clinical Impression: Migraine headache Condition: Stable Critical Care Time: No Referrals: MARQUISE HENDERSON DO [Primary Care Provider] - Follow up/PCP as directed Additional Instructions: Drink plenty of clear liquids. Take your medications as prescribed. Call your prescribing providers on 03/27/2024, to make arrangements for follow-up appointment for further evaluation and management.
[2024-03-24 22:09] VITALS: TEMP 96.9
[2024-03-24] MEDS ORDERED: Compazine 10 MG/2 ML ONE (22:17)
[2024-03-24] MEDS ORDERED: BENADRYL 50 MG/ML ONE (22:17)
[2024-03-24] MEDS ORDERED: MORPHINE SULFATE 2 MG INJ ONE (22:17)
[2024-03-24] MEDS: MORPHINE SULFATE 2 MG INJ IM ONE (22:18)
[2024-03-24] MEDS: BENADRYL 50 MG/ML IM ONE (22:19)
[2024-03-24] MEDS: Compazine 10 MG/2 ML IM ONE (22:19)
[2024-03-24 22:41] VITALS: BP 114/68; PULSE 102; RESP 14; O2SAT 97
== END 2024-03-24 22:46 | disposition home or self-care (01) ==
LOC: ED 21:55
DX: G43.909 Migraine, unspecified, not intractable, without status migrainosus (principal); E78.5 Hyperlipidemia, unspecified; Z79.01 Long term (current) use of anticoagulants; Z79.891 Long term (current) use of opiate analgesic; Z79.899 Other long term (current) drug therapy
CPT/HCPCS: 96372; 99283; 99284; J1200; J2270

== ENCOUNTER 2024-04-07 23:00 | Emergency (ER) | payer MEDICARE, OTHER ==
[2024-04-07 23:21] VITALS: RESP 20; TEMP 97.2
[2024-04-07 23:23] LABS: Appearance Clear (Clear); Bacteria None Seen /HPF (None Seen); Bilirubin Negative (Negative); Blood Negative (Negative); Epithelial Cells None Seen /HPF (None Seen); Glucose, Urine Negative (Negative); Hyaline Casts NONE SEEN /LPF (0-2); Ketones Negative (Negative); Leukocyte Esterase Small (Negative); Nitrite Negative (Negative); Protein,Urine Dip Negative (Negative); RBC 0-2 /HPF (0-5); Specific Gravity 1.015 (1.005-1.030); Urobilinogen 0.2 mg/dL (0.2)
[2024-04-08 00:19] VITALS: O2SAT 96
--- NOTE | 2024-04-08 00:31 | ERPHSYRPT ---
- History of Present Illness Time Seen by Provider: 04/07/24 23:13 Source: patient Exam Limitations: no limitations Patient Subjective Stated Complaint: pt states that she has burning with urination Triage Nursing Assessment: pt ambulated into the er; pt is axo x4; c/o pain with urination; pt states 8/10 pain with urination; abd soft, round, nontender; pt denies N/V/D; skin PDW; vitals wnl Physician History: 68 years old female with multiple medical problems having recurrent UTIs presented in the ER with dysuria with mild increased frequency and burning sensation since yesterday. Patient denies any fever or chills. Reports having similar symptoms in the past with UTI. Patient has chronic back pain and migraine and was supposed to get epidural injections which were postponed it because of her UTI symptoms and needs to be treated. Allergies/Adverse Reactions: sumatriptan [From Imitrex] Allergy (Intermediate, Verified 03/24/24 21:58) Rash codeine Allergy (Mild, Verified 03/24/24 21:58) Rash MAKES SICK nitrofurantoin [From Macrobid] Allergy (Unknown, Verified 03/24/24 21:58) sulfamethoxazole [From Bactrim] Allergy (Unknown, Verified 03/24/24 21:58) trimethoprim [From Bactrim] Allergy (Unknown, Verified 03/24/24 21:58) sumatriptan succinate [From Imitrex] Allergy (Verified 03/24/24 21:58) hydrocodone bitartrate [From Vicodin] Adverse Reaction (Mild, Verified 03/24/24 21:58) Vomiting hydromorphone [From Dilaudid] Adverse Reaction (Mild, Verified 03/24/24 21:58) pt states makes headache worse. Home Medications: ALPRAZolam 1 MG [Xanax 1 mg] 1 mg PO TID 02/17/13 [History] Aspirin 81 mg PO DAILY 09/11/16 [History] Levothyroxine Sodium 50 Mcg [Synthroid 50 Mcg] 50 mcg PO DAILY 07/06/17 [History] Dexlansoprazole [Dexilant] 60 mg PO DAILY 01/21/20 [History] Albuterol 2.5 mg/3 ml Neb [Proventil 2.5 mg/3 ml Neb] 2.5 mg IH QID 07/23/20 [History] dilTIAZem HCL [Diltiazem 24Hr ER (Cd)] 120 mg PO DAILY 09/29/21 [History] Promethazine HCl 25 mg [Phenergan 25 mg] 25 mg PO BIDPRN PRN 01/18/22 [History] Apixaban [Eliquis] 5 mg PO BID 07/02/22 [History] Fluticasone/Umeclidin/Vilanter [Trelegy Ellipta 200-62.5-25] 1 each IH DAILY 07/02/22 [History] Cetirizine HCl [Zyrtec] 1 tab PO DAILY 11/08/22 [History] Magnesium Oxide 400 mg [Mag-Ox 400] 1 tab PO DAILY 11/08/22 [History] Sodium Bicarbonate 2 tab PO TID 11/08/22 [History] Omeprazole/Sodium Bicarbonate [Omeprazole-Bicarb 40-1,100 Cap] 1 each PO HS 11/28/22 [History] Atorvastatin Calcium [Lipitor 40Mg] 40 mg PO DAILY 03/09/23 [History] Tenapanor HCl [Ibsrela] 50 mg PO BID 05/05/23 [History] Ubrogepant [Ubrelvy] 100 mg PO DAILY PRN 05/05/23 [History] Buprenorphine 1 each TD WEEKLY 03/24/24 [History] Galcanezumab-Gnlm [Emgality] 120 mg SQ UD 04/08/24 [History] Hx Tetanus, Diphtheria Vaccination/Date Given: Yes Hx Influenza Vaccination/Date Given: Yes Hx Pneumococcal Vaccination/Date Given: Yes Travel Risk - International Travel Have you traveled outside of the country in past 3 weeks: No - Emerging Infectious Disease Are you exhibiting symptoms associated with any current EIDs: No Symptoms: Headaches/Body Aches/ - Review of Systems Constitutional: No Symptoms Ears, Nose, & Throat: No Symptoms Respiratory: No Symptoms Cardiac: No Symptoms Abdominal/Gastrointestinal: No Symptoms Genitourinary Symptoms: Dysuria, Frequency Musculoskeletal: Arthralgias, Back Pain Skin: No Symptoms Endocrine: No Symptoms - Past Medical History Pertinent Past Medical History: Yes Neurological History: Migraines, TIA ENT History: Cataracts Cardiac History: High Cholesterol Respiratory History: Bronchitis, COPD, Pneumonia, Pulmonary Embolism Endocrine Medical History: Hypothyroidism Musculoskeletal History: Osteoarthritis GI Medical History: GERD, Gallbladder Disease, Other History: Other Psycho-Social History: Anxiety, Depression, Panic Disorder Female Reproductive Disorders: No Pertinent History Other Medical History: frequent uti's, chronic pseudo obstruction, blood clot, partial bowel blockage. septic in august 2023. post a cath replaced 10/15/23 - Past Surgical History Past Surgical History: Yes Neuro Surgical History: No Pertinent History Cardiac: No Pertinent History Respiratory: No Pertinent History Gastrointestinal: Cholecystectomy, Other Genitourinary: No Pertinent History Musculoskeletal: No Pertinent History Female Surgical History: Hysterectomy Other Surgical History: all of large intestine removed and most of small intestines removed, feeding tube in 2004 removed in 2007. Significant Family History: no pertinent family hx - Social History Smoking Status: Never smoker Exposure to second hand smoke: No Drug Use: none - Social Determinants of Health Will the patient participate in the screening: Yes Do you worry about a steady place to live?: No Do you have any problems with any of the following?: No known problems In the past 12 months,have you had to go without utilities?: No Transportation Issues: No Has anyone in your support network made you feel unsafe?: No Have you or anyone in your house had to go w/o enough food: No - Nursing Vital Signs Nursing Vital Signs: Initial Vital Signs Pulse Rate 92 H 04/07/24 23:12 Blood Pressure 124/80 04/07/24 23:12 O2 Sat by Pulse Oximetry 97 04/07/24 23:12 Pain Scale Pain Intensity 8 - Physical Exam General Appearance: no apparent distress, alert Neck Exam: normal inspection, full range of motion Respiratory Exam: normal breath sounds, lungs clear Cardiovascular Exam: regular rate/rhythm, normal heart sounds Gastrointestinal/Abdomen Exam: soft, normal bowel sounds, No tenderness Back Exam: No CVA tenderness Extremity Exam: normal inspection, normal range of motion Neurologic Exam: alert, 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, cooperative Skin Exam: normal color SpO2 Interpretation: normal SpO2: 96 O2 Delivery: Room Air Ordered Tests: Active Orders 24 hr Category Date Time Status UA W/RFX UR CULTURE Stat Lab 04/07/24 23:10 Completed Lab/Rad Data: Laboratory Results 04/07/24 Range/Units 23:10 Urine Color Yellow (Yellow) Urine Appearance Clear (Clear) Urine pH 6.0 (4.6-8.0) Ur Specific [place] 1.015 (1.005-1.030) Urine Protein Negative (Negative) Urine Glucose (UA) Negative (Negative) mg/dL Urine Ketones Negative (Negative) Urine Blood Negative (Negative) Urine Nitrite Negative (Negative) Urine Bilirubin Negative (Negative) Urine Urobilinogen 0.2 (0.2) mg/dL Ur Leukocyte Esterase Small A (Negative) U Hyaline Cast (Auto) NONE SEEN (0-2) /LPF Urine Microscopic RBC 0-2 (0-5) /HPF Urine Microscopic WBC 6-10 A (0-5) /HPF Ur Epithelial Cells None Seen (None Seen) /HPF Urine Bacteria None Seen (None Seen) /HPF Urine Culture Reflexed NO (NO) - Progress Progress: unchanged Air Movement: good Progress Note: 04/08/24 00:25 68 years old is evaluated in the ER for dysuria with mild increased frequency. Patient has history of recurrent UTI. Patient has some element of UTI, no CVA tenderness. No systemic signs of infection. She started on Keflex, outpatient follow-up recommended. Complexity of problem addressed: Low Amount of data reviewed/analyzed with complexity: Limited Risk of complication/mortality/morbidity of patient management: Low risk Blood Culture(s) Obtained: No Antibiotics given: Yes Counseled pt/family regarding: lab results, diagnosis, need for follow-up Medical Desision Making - Diagnostic Testing Diagnostic test were ordered, analyzed, and reviewed by me: Yes - Risk of complications The pt has a mod risk of morbidity or mortality based on: Need for prescription drug management - Departure Departure Disposition: Home Clinical Impression: Dysuria Condition: Stable Critical Care Time: No Referrals: MARQUISE HENDERSON DO [Primary Care Provider] - Follow up/PCP as directed Instructions: Urinary Tract Infection, Adult (DC) Additional Instructions: Follow-up with primary care for reevaluation. Take Tylenol as needed. Return to ER for any worsening. Prescriptions: Cephalexin Mh 500 mg [Keflex 500 mg] 500 mg PO TID #21 cap
[2024-04-08 00:41] VITALS: BP 130/86; PULSE 83
== END 2024-04-08 00:48 | disposition home or self-care (01) ==
LOC: ED 23:00
DX: R30.0 Dysuria (principal); R35.0 Frequency of micturition; E78.5 Hyperlipidemia, unspecified; Z79.01 Long term (current) use of anticoagulants; Z79.899 Other long term (current) drug therapy
CPT/HCPCS: 81001; 99282; 99283

== ENCOUNTER 2024-04-25 04:26 | Emergency (ER) | payer MEDICARE, OTHER ==
--- NOTE | 2024-04-25 04:37 | ERPHSYRPT ---
- History of Present Illness Time Seen by Provider: 04/25/24 04:36 Source: patient Exam Limitations: no limitations Physician History: This is a 68-year-old white female patient of Dr. Henderson who arrives by private vehicle. Patient drove herself. Patient's complaint includes the concern for possible pneumonia and a "bad UTI". She states within the last 2 weeks she has taken 3 different antibiotics to treat pneumonias and UTIs. They include Keflex, fosfomycin and most recently Cipro. She was also prescribed Pyridium. She completed the Keflex and fosfomycin. Her symptoms persisted and therefore she was started on Cipro on 04/21/2024. Patient wears 3 L of oxygen via nasal cannula and on that level of oxygen in that mode, her oxygen saturation level is 99%. Patient has recurrent UTIs. Today, she denies chest pain and she denies headache. She does have discomfort vaginally. Patient is allergic to the antibiotic sulfa and nitrofurantoin. Patient has multiple medical problems which include migraine headaches, panic disorder, COPD, hyperlipidemia, hy pothyroidism and TIAs. Timing/Duration: week(s) (Approximately 2 weeks), other (Not improving) Activites at Onset: none Quality: other (Vaginal discomfort with urination) Onset Location: vaginal Severity of Pain-Max: mild Severity of Pain-Current: mild Sexual intercourse history: non-contributory Modifying Factors: Improves With: urinating Associated Symptoms: dysuria (Described as a discomfort) Allergies/Adverse Reactions: sumatriptan [From Imitrex] Allergy (Intermediate, Verified 04/25/24 04:51) Rash codeine Allergy (Mild, Verified 04/25/24 04:51) Rash MAKES SICK nitrofurantoin [From Macrobid] Allergy (Unknown, Verified 04/25/24 04:51) sulfamethoxazole [From Bactrim] Allergy (Unknown, Verified 04/25/24 04:51) trimethoprim [From Bactrim] Allergy (Unknown, Verified 04/25/24 04:51) sumatriptan succinate [From Imitrex] Allergy (Verified 04/25/24 04:51) hydrocodone bitartrate [From Vicodin] Adverse Reaction (Mild, Verified 04/25/24 04:51) Vomiting hydromorphone [From Dilaudid] Adverse Reaction (Mild, Verified 04/25/24 04:51) pt states makes headache worse. Home Medications: ALPRAZolam 1 MG [Xanax 1 mg] 1 mg PO TID 02/17/13 [History] Aspirin 81 mg PO DAILY 09/11/16 [History] Levothyroxine Sodium 50 Mcg [Synthroid 50 Mcg] 50 mcg PO DAILY 07/06/17 [History] Dexlansoprazole [Dexilant] 60 mg PO DAILY 01/21/20 [History] Albuterol 2.5 mg/3 ml Neb [Proventil 2.5 mg/3 ml Neb] 2.5 mg IH QID 07/23/20 [History] dilTIAZem HCL [Diltiazem 24Hr ER (Cd)] 120 mg PO DAILY 09/29/21 [History] Promethazine HCl 25 mg [Phenergan 25 mg] 25 mg PO BIDPRN PRN 01/18/22 [History] Apixaban [Eliquis] 5 mg PO BID 07/02/22 [History] Fluticasone/Umeclidin/Vilanter [Trelegy Ellipta 200-62.5-25] 1 each IH DAILY 07/02/22 [History] Cetirizine HCl [Zyrtec] 1 tab PO DAILY 11/08/22 [History] Magnesium Oxide 400 mg [Mag-Ox 400] 1 tab PO DAILY 11/08/22 [History] Sodium Bicarbonate 2 tab PO TID 11/08/22 [History] Omeprazole/Sodium Bicarbonate [Omeprazole-Bicarb 40-1,100 Cap] 1 each PO HS 11/28/22 [History] Atorvastatin Calcium [Lipitor 40Mg] 40 mg PO DAILY 03/09/23 [History] Tenapanor HCl [Ibsrela] 50 mg PO BID 05/05/23 [History] Ubrogepant [Ubrelvy] 100 mg PO DAILY PRN 05/05/23 [History] Buprenorphine 1 each TD WEEKLY 03/24/24 [History] Galcanezumab-Gnlm [Emgality] 120 mg SQ UD 04/08/24 [History] Hx Tetanus, Diphtheria Vaccination/Date Given: Yes Hx Influenza Vaccination/Date Given: Yes Hx Pneumococcal Vaccination/Date Given: Yes Travel Risk - Emerging Infectious Disease Are you exhibiting symptoms associated with any current EIDs: No Symptoms: Headaches/Body Aches/ - Review of Systems Constitutional: No Symptoms Eyes: No Symptoms Ears, Nose, & Throat: No Symptoms Respiratory: No Symptoms Cardiac: No Symptoms Abdominal/Gastrointestinal: No Symptoms Genitourinary Symptoms: Dysuria, Vaginal Itching Musculoskeletal: No Symptoms Skin: No Symptoms Neurological: No Symptoms Psychological: No Symptoms Endocrine: No Symptoms Hematologic/Lymphatic: No Symptoms Immunological/Allergic: No Symptoms All Other Systems: Reviewed and Negative - Past Medical History Pertinent Past Medical History: Yes Neurological History: Migraines, TIA ENT History: Cataracts Cardiac History: High Cholesterol Respiratory History: Bronchitis, COPD, Pneumonia, Pulmonary Embolism Endocrine Medical History: Hypothyroidism Musculoskeletal History: Osteoarthritis GI Medical History: GERD, Gallbladder Disease, Other History: Other Psycho-Social History: Anxiety, Depression, Panic Disorder Female Reproductive Disorders: No Pertinent History Other Medical History: frequent uti's, chronic pseudo obstruction, blood clot, partial bowel blockage. septic in august 2023. post a cath replaced 10/15/23 - Past Surgical History Past Surgical History: Yes Neuro Surgical History: No Pertinent History Cardiac: No Pertinent History Respiratory: No Pertinent History Gastrointestinal: Cholecystectomy, Other Genitourinary: No Pertinent History Musculoskeletal: No Pertinent History Female Surgical History: Hysterectomy Other Surgical History: all of large intestine removed and most of small intestines removed, feeding tube in 2004 removed in 2007. Significant Family History: no pertinent family hx - Social History Smoking Status: Never smoker Exposure to second hand smoke: No Drug Use: none - Social Determinants of Health Will the patient participate in the screening: Yes Do you worry about a steady place to live?: No In the past 12 months,have you had to go without utilities?: No Transportation Issues: No Has anyone in your support network made you feel unsafe?: No Have you or anyone in your house had to go w/o enough food: No - Nursing Vital Signs Nursing Vital Signs: Initial Vital Signs Temperature 97.7 F 04/25/24 04:32 Pulse Rate 54 L 04/25/24 04:32 Respiratory Rate 20 04/25/24 04:32 Blood Pressure 101/60 04/25/24 04:32 O2 Sat by Pulse Oximetry 96 04/25/24 04:32 Pain Scale Pain Intensity 10 - Physical Exam General Appearance: no apparent distress, alert, anxiety Eye Exam: PERRL/EOMI, eyes nml inspection Ears, Nose, Throat Exam: normal ENT inspection, moist mucous membranes Neck Exam: normal inspection, non-tender, supple, full range of motion Respiratory Exam: normal breath sounds, lungs clear, airway intact, No chest tenderness, No respiratory distress Cardiovascular Exam: regular rate/rhythm, normal heart sounds, normal peripheral pulses Gastrointestinal/Abdomen Exam: soft, normal bowel sounds, No tenderness Pelvic Exam: not done Rectal Exam: not done Back Exam: normal inspection, normal range of motion, No CVA tenderness, No vertebral tenderness Extremity Exam: normal inspection, normal range of motion, pelvis stable Neurologic Exam: alert Skin Exam: normal color, warm, dry Lymphatic Exam: No adenopathy SpO2 Interpretation: normal O2 Delivery: Room Air - Course Nursing assessment & vital signs reviewed: Yes Ordered Tests: Active Orders 24 hr Category Date Time Status CHEST 2 VIEWS (PA AND LAT) Stat Exams 04/25/24 05:21 Completed CULTURE,URINE Stat Lab 04/25/24 05:22 Received UA W/RFX UR CULTURE Stat Lab 04/25/24 05:22 Completed Medication Summary Discontinued Medications Generic Name Dose Route Start Last Admin Trade Name Freq PRN Reason Stop Dose Admin Ceftriaxone Sodium 1,000 mg 04/25/24 06:03 04/25/24 06:14 Ceftriaxone Sodium 1000 Mg Inj Vial IM 04/25/24 06:04 1,000 mg STAT ONE Administration Ceftriaxone Sodium Confirm 04/25/24 06:10 Ceftriaxone Sodium 1000 Mg Inj Vial Administered 04/25/24 06:11 Dose 1,000 mg .ROUTE .STK-MED ONE Fluconazole 150 mg 04/25/24 06:04 04/25/24 06:14 Fluconazole 100 Mg Tablet PO 04/25/24 06:05 150 mg ONCE ONE Administration Lab/Rad Data: Laboratory Results 04/25/24 Range/Units 05:22 Urine Color [place] A (Yellow) Urine Appearance Clear (Clear) Urine pH 5.0 (4.6-8.0) Ur Specific [place] 1.020 (1.005-1.030) Urine Protein Trace A (Negative) Urine Glucose (UA) Negative (Negative) mg/dL Urine Ketones Negative (Negative) Urine Blood Negative (Negative) Urine Nitrite Positive A (Negative) Urine Bilirubin Small A (Negative) Urine Urobilinogen 1.0 A (0.2) mg/dL Ur Leukocyte Esterase Large A (Negative) U Hyaline Cast (Auto) NONE SEEN (0-2) /LPF Urine Microscopic RBC 0-2 (0-5) /HPF Urine Microscopic WBC 6-10 A (0-5) /HPF Ur Epithelial Cells Few (None Seen) /HPF Urine Bacteria Rare A (None Seen) /HPF Urine Culture Reflexed YES (NO) - Progress Progress: unchanged Air Movement: good Progress Note: 04/25/24 05:58 My medical decision making of the assignment of low complexity to this patient's medical issue today is based on review of the patient's past medical history, review of the patient's medication list, reviewed patient drug allergy list, history present illness and physical findings on examination. The workup in this patient includes portable chest x-ray and urinalysis. Differential diagnosis includes but is not limited to anxiety about health, urinary tract infection, upper respiratory infection, pneumonia, yeast infection 04/25/24 06:02 I interpreted the urinalysis. Despite being on those 3 different antibiotics, the patient still has a significant urinary tract infection. We will provide her with an intramuscular injection of Rocephin followed by outpatient cefdinir. These medications will cover both urinary tract infection and community- acquired pneumonia 04/25/24 06:22 I interpreted the preliminary chest x-ray report. I do not appreciate an acute cardiopulmonary process. The nighttime radiologist interpreted the final chest x-ray report. The radiologist interpretation/impression is that the patient has bilateral inf iltrates. Blood Culture(s) Obtained: No Antibiotics given: Yes Counseled pt/family regarding: lab results, diagnosis, need for follow-up, rad results Medical Desision Making - Diagnostic Testing Diagnostic test were ordered, analyzed, and reviewed by me: Yes Radiological Interpretation: Interpreted by me, Reviewed by me, Teleradiologist Report - Risk of complications The pt has a mod risk of morbidity or mortality based on: Need for prescription drug management - Departure Departure Disposition: Home Clinical Impression: UTI (urinary tract infection), Pulmonary infiltrates on CXR Condition: Stable Critical Care Time: No Referrals: MARQUISE HENDERSON, [Primary Care Provider] - Follow up/PCP as directed Additional Instructions: Drink plenty of clear liquids. Stop your Cipro and any other antibiotics. Continue your other medications as prescribed. Call your primary care provider today, 04/25/2024, to make arrangements for follow-up appointment to be seen in the next 5 to 7 days. Prescriptions: Cefdinir 300 mg PO BID #14 cap
[2024-04-25 04:50] VITALS: TEMP 97.7
[2024-04-25 05:54] LABS: Appearance Clear (Clear); Bilirubin Small (Negative); Blood Negative (Negative); Glucose, Urine Negative (Negative); Hyaline Casts NONE SEEN /LPF (0-2); Ketones Negative (Negative); Leukocyte Esterase Large (Negative); Nitrite Positive (Negative); Protein,Urine Dip Trace (Negative)
[2024-04-25 05:55] LABS: Bacteria Rare /HPF (None Seen); Epithelial Cells Few /HPF (None Seen); RBC 0-2 /HPF (0-5)
[2024-04-25] MEDS ORDERED: Rocephin 1000 MG INJ ONE (06:10)
[2024-04-25] MEDS: Diflucan 100 MG PO ONE (06:14)
[2024-04-25] MEDS: Rocephin 1000 MG INJ IM ONE (06:14)
[2024-04-25] MEDS ORDERED: XYLOCAINE 1% HCL 20 ML MDV ONE (06:21)
--- NOTE | 2024-04-25 06:21 | XRAY ---
CLINICAL HISTORY: cough COMPARISON: CR 03/03/2024 TECHNIQUE: X-ray images of the chest were obtained in posteroanterior (PA) and lateral projections. FINDINGS: Pulmonary Parenchyma: Mild increased bilateral pulmonary infiltrates, more on right upper lobe and left lung field, suggestive of acute pulmonary infection. Clinical correlation and follow up are recommended. No evidence of pleural effusion or pleural thickening. Heart and Mediastinum: Heart size and shape are normal. No mediastinal widening or masses. Multiple calcified mediastinal and right hilar lymph nodes, mostly sequelae of old granuloma. Bony Thorax: Bony thorax appears intact without fractures or deformities. Diffuse spondylotic changes. Soft Tissues: Soft tissues overlying the chest wall are unremarkable. Linea and tubes: Right central venous catheter is noted in place, reaching cavoatrial junction. IMPRESSION: 1. Bilateral pulmonary infiltrates, more on right upper lobe and left lung field, suggestive of acute pulmonary infection. Clinical correlation and follow up are recommended. (mild progressive course) 2. Multiple calcified mediastinal and right hilar lymph nodes, mostly sequelae of old granuloma. (stable) 3. Right central venous catheter is noted in place, reaching cavoatrial junction. (stable) Electronically Signed by: Evelyne Razo MD. (04/25/2024 06:17:39 EDT)
[2024-04-25 06:24] VITALS: BP 112/76; PULSE 77; RESP 20; O2SAT 98
== END 2024-04-25 06:30 | disposition home or self-care (01) ==
LOC: ED 04:26
DX: N39.0 Urinary tract infection, site not specified (principal); R91.8 Other nonspecific abnormal finding of lung field; E78.5 Hyperlipidemia, unspecified; Z79.01 Long term (current) use of anticoagulants; Z79.899 Other long term (current) drug therapy
CPT/HCPCS: 71046; 81001; 87077; 87086; 87186; 96372; 99284; J0696; A9270-GY

== ENCOUNTER 2024-05-13 23:00 | Emergency (ER) | payer MEDICARE, OTHER ==
[2024-05-13 23:37] VITALS: TEMP 96.9
--- NOTE | 2024-05-13 23:52 | ERPHSYRPT ---
- History of Present Illness Time Seen by Provider: 05/13/24 23:52 Source: patient Exam Limitations: no limitations Patient Subjective Stated Complaint: I have a severe uti and I've been on 3 different antibiotics this month and none of them are working. Triage Nursing Assessment: Pt ambulated into ER without diff. Pt c/o burning with urination, pressure and frequency. Pt saw Dr. Weinberg at [facility] on and was started on Amoxicillin 500mg po bid and they also did a culture. Physician History: Pt presents with worsening abdominal pain, severe dehydration, and vomiting green bile. Pt reports a history of recurrent UTIs and pneumonia this month, initially diagnosed and treated at another facility on 04/21/2024 with antibiotics (Ciprofloxacin). Pt also reports being impacted earlier this month and having a history of intestinal disease. Pt states they were seen by a neurologist and urologist for a possible kidney mass, which was ruled out after further imaging at another facility. Pt denies any recent trauma. Pt states their symptoms began on 04/15/2024 with impaction, followed by UTI and pneumonia diagnosed on 04/21/2024. Medications for these conditions have not been effective. Timing/Duration: week(s) (4), worse Activites at Onset: none Quality: sharpness, stabbing Onset Location: suprapubic Pain Radiation: none Severity of Pain-Max: severe Severity of Pain-Current: severe Prior abdominal problems: UTI Modifying Factors: Worsens With: palpation, urinating, vomiting Associated Symptoms: abdominal pain, nausea, vomiting, dysuria, urinary freque ncy, No fever Allergies/Adverse Reactions: sumatriptan [From Imitrex] Allergy (Intermediate, Verified 05/13/24 23:51) Rash codeine Allergy (Mild, Verified 05/13/24 23:51) Rash MAKES SICK nitrofurantoin [From Macrobid] Allergy (Unknown, Verified 05/13/24 23:51) sulfamethoxazole [From Bactrim] Allergy (Unknown, Verified 05/13/24 23:51) trimethoprim [From Bactrim] Allergy (Unknown, Verified 05/13/24 23:51) sumatriptan succinate [From Imitrex] Allergy (Verified 05/13/24 23:51) hydrocodone bitartrate [From Vicodin] Adverse Reaction (Mild, Verified 05/13/24 23:51) Vomiting hydromorphone [From Dilaudid] Adverse Reaction (Mild, Verified 05/13/24 23:51) pt states makes headache worse. Home Medications: ALPRAZolam 1 MG [Xanax 1 mg] 1 mg PO TID 02/17/13 [History] Aspirin 81 mg PO DAILY 09/11/16 [History] Levothyroxine Sodium 50 Mcg [Synthroid 50 Mcg] 50 mcg PO DAILY 07/06/17 [History] Dexlansoprazole [Dexilant] 60 mg PO DAILY 01/21/20 [History] Albuterol 2.5 mg/3 ml Neb [Proventil 2.5 mg/3 ml Neb] 2.5 mg IH QID 07/23/20 [History] dilTIAZem HCL [Diltiazem 24Hr ER (Cd)] 120 mg PO DAILY 09/29/21 [History] Promethazine HCl 25 mg [Phenergan 25 mg] 25 mg PO BIDPRN PRN 01/18/22 [History] Apixaban [Eliquis] 5 mg PO BID 07/02/22 [History] Fluticasone/Umeclidin/Vilanter [Trelegy Ellipta 200-62.5-25] 1 each IH DAILY 07/02/22 [History] Cetirizine HCl [Zyrtec] 1 tab PO DAILY 11/08/22 [History] Magnesium Oxide 400 mg [Mag-Ox 400] 1 tab PO DAILY 11/08/22 [History] Sodium Bicarbonate 2 tab PO TID 11/08/22 [History] Omeprazole/Sodium Bicarbonate [Omeprazole-Bicarb 40-1,100 Cap] 1 each PO HS 11/28/22 [History] Atorvastatin Calcium [Lipitor 40Mg] 40 mg PO DAILY 03/09/23 [History] Tenapanor HCl [Ibsrela] 50 mg PO BID 05/05/23 [History] Ubrogepant [Ubrelvy] 100 mg PO DAILY PRN 05/05/23 [History] Buprenorphine 1 each TD WEEKLY 03/24/24 [History] Galcanezumab-Gnlm [Emgality] 120 mg SQ UD 02/22/25 [History] Hx Tetanus, Diphtheria Vaccination/Date Given: Yes Hx Influenza Vaccination/Date Given: Yes Hx Pneumococcal Vaccination/Date Given: Yes Travel Risk - International Travel Have you traveled outside of the country in past 3 weeks: No - Emerging Infectious Disease Are you exhibiting symptoms associated with any current EIDs: Yes Symptoms: Vomitting, Other (Please Comment) Comment: uti - Review of Systems All Other Systems: Reviewed and Negative - Past Medical History Pertinent Past Medical History: Yes Neurological History: Migraines, TIA ENT History: Cataracts Cardiac History: High Cholesterol Respiratory History: Bronchitis, COPD, Pneumonia, Pulmonary Embolism Endocrine Medical History: Hypothyroidism Musculoskeletal History: Osteoarthritis GI Medical History: GERD, Gallbladder Disease, Other History: Other Psycho-Social History: Anxiety, Depression, Panic Disorder Female Reproductive Disorders: No Pertinent History Other Medical History: frequent uti's, chronic pseudo obstruction, blood clot, partial bowel blockage. septic in august 2023. post a cath replaced 10/15/23, mass to left kidney 1.5cm - Past Surgical History Past Surgical History: Yes Neuro Surgical History: No Pertinent History Cardiac: No Pertinent History Respiratory: No Pertinent History Gastrointestinal: Cholecystectomy, Other Genitourinary: No Pertinent History Musculoskeletal: No Pertinent History Female Surgical History: Hysterectomy Other Surgical History: all of large intestine removed and most of small intestines removed, feeding tube in 2004 removed in 2007. Significant Family History: no pertinent family hx - Social History Smoking Status: Never smoker Exposure to second hand smoke: No Drug Use: none - Social Determinants of Health Will the patient participate in the screening: Yes Do you worry about a steady place to live?: No Do you have any problems with any of the following?: No known problems In the past 12 months,have you had to go without utilities?: No Transportation Issues: No Has anyone in your support network made you feel unsafe?: No Have you or anyone in your house had to go w/o enough food: No - Nursing Vital Signs Nursing Vital Signs: Initial Vital Signs Temperature 96.9 F 05/13/24 23:35 Pulse Rate 103 H 05/13/24 23:35 Respiratory Rate 22 05/13/24 23:35 Blood Pressure 111/82 05/13/24 23:35 O2 Sat by Pulse Oximetry 98 05/13/24 23:35 Pain Scale Pain Intensity 0 - Physical Exam General Appearance: mild distress Respiratory Exam: normal breath sounds, lungs clear, airway intact, No respiratory distress Cardiovascular Exam: regular rate/rhythm, normal heart sounds, capillary refill <2 sec Gastrointestinal/Abdomen Exam: soft, normal bowel sounds, tenderness (suprapubic), guarding, No distention, No mass, No rebound Back Exam: normal inspection, normal range of motion, No CVA tenderness Skin Exam: normal color, warm, dry SpO2 Interpretation: normal SpO2: 98 O2 Delivery: Room Air - Course Nursing assessment & vital signs reviewed: Yes Ordered Tests: Active Orders 24 hr Category Date Time Status IV Insertion STAT Care 05/14/24 00:10 Active ABDOMEN AND PELVIS W CONTRAST [CT] Stat Exams 05/14/24 00:13 Completed CBC W DIFF Stat Lab 05/14/24 00:32 Completed CMP Stat Lab 05/14/24 00:32 Completed CULTURE,URINE Stat Lab 05/14/24 00:00 Received LIPASE Stat Lab 05/14/24 00:32 Completed Lactic Acid Stat Lab 05/14/24 00:25 Completed OB-FECAL SCREEN Stat Lab 05/14/24 Ordered UA W/RFX UR CULTURE Stat Lab 05/14/24 00:00 Completed Medication Summary Discontinued Medications Generic Name Dose Route Start Last Admin Trade Name Freq PRN Reason Stop Dose Admin Cefepime HCl Confirm 05/14/24 01:35 Cefepime Hcl 2 Gm Vial Administered 05/14/24 01:36 Dose 2 g .ROUTE .STK-MED ONE Droperidol 1.25 mg 05/14/24 00:10 05/14/24 00:38 Droperidol 5 Mg/2 Ml Vial IV 05/14/24 00:11 1.25 mg STAT ONE Administration Droperidol Confirm 05/14/24 00:34 Droperidol 5 Mg/2 Ml Vial Administered 05/14/24 00:35 Dose 5 mg .ROUTE .STK-MED ONE Sodium Chloride 1,000 mls @ 999 mls/hr 05/14/24 00:10 05/14/24 00:38 Sodium Chloride 0.9% 1000 Ml IV 05/14/24 01:10 999 mls/hr .Q1H1M STA Administration Sodium Chloride Confirm 05/14/24 00:34 Sodium Chloride 0.9% 1000 Ml Administered 05/14/24 00:35 Dose 1,000 mls @ ud .ROUTE .STK-MED ONE Cefepime HCl 2 g/ Sodium 100 mls @ 200 mls/hr 05/14/24 00:53 05/14/24 01:43 Chloride IV 05/14/24 01:22 200 mls/hr STAT STA 200 mls/hr Administration Sodium Chloride Confirm 05/14/24 01:35 Sodium Chloride 0.9% Administered 05/14/24 01:36 Dose 100 mls @ ud .ROUTE .STK-MED ONE Potassium Chloride 80 meq 05/14/24 00:54 05/14/24 01:42 Potassium Chloride Tab 10 Meq Tab PO 05/14/24 00:55 80 meq STAT ONE Administration Potassium Chloride Confirm 05/14/24 01:35 Potassium Chloride Tab 10 Meq Tab Administered 05/14/24 01:36 Dose 80 meq .ROUTE .STK-MED ONE Lab/Rad Data: Laboratory Result Diagrams 05/14/24 00:32 05/14/24 00:32 Laboratory Results 05/14/24 05/14/24 05/14/24 Range/Units 00:32 00:32 00:25 WBC 4.1 (3.98-10.04) x10^3/uL RBC 3.82 L (3.93-5.22) x10^6/uL Hgb 11.3 (11.2-15.7) g/dL Hct 34.1 (34.1-44.9) % MCV 89.3 (79.4-94.8) fL MCH 29.6 (25.6-32.2) pg MCHC 33.1 (32.2-35.5) g/dL RDW 13.2 (11.7-14.4) % Plt Count 156 L (182-369) x10^3/uL MPV 10.3 (9.4-12.3) fL Gran % 68.3 (34.0-71.1) % Immature Gran % (Auto) 0.2 (0.001-0.429) % Nucleat RBC Rel Count 0.0 (0.00-0.2) % Eos # (Auto) 0.05 (0.04-0.36) x10^3/uL Immature Gran # (Auto) 0.01 (0.001-0.031) x10^3u/L Absolute Lymphs (auto) 0.86 L (1.18-3.74) x10^3/uL Absolute Monos (auto) 0.37 (0.24-0.86) x10^3/uL Absolute Nucleated RBC 0.00 (0.00-0.012) x10^3u/L Lymphocytes % 20.8 (19.3-51.7) % Monocytes % 9.0 (4.7-12.5) % Eosinophils % 1.2 (0.7-5.8) % Basophils % 0.5 (0.1-1.2) % Absolute Granulocytes 2.82 (1.56-6.13) x10^3/uL Basophils # 0.02 (0.01-0.08) x10^3/uL Sodium 139 (135-145) mmol/L Potassium 3.0 L* (3.5-5.1) mmol/L Chloride 100 (98-107) mmol/L Carbon Dioxide 30 (22-30) mmol/L Anion Gap 12.5 (5-15) MEQ/L BUN 31 H (7-17) mg/dL Creatinine 1.14 H (0.52-1.04) mg/dL Estimated GFR 52.4 ML/MIN Glucose 104 (74-106) mg/dL Lactic Acid 1.3 (0.4-2.0) Calcium 8.2 L (8.4-10.2) mg/dL Total Bilirubin 0.70 (0.2-1.3) mg/dL AST 26 (14-36) U/L ALT 17 (0-35) U/L Alkaline Phosphatase 107 (38-126) U/L Serum Total Protein 6.6 (6.3-8.2) g/dL Albumin 3.9 (3.5-5.0) g/dL Lipase 129 (23-300) U/L Urine Color (Yellow) Urine Appearance (Clear) Urine pH (4.6-8.0) Ur Specific [place] (1.005-1.030) Urine Protein (Negative) Urine Glucose (UA) (Negative) mg/dL Urine Ketones (Negative) Urine Blood (Negative) Urine Nitrite (Negative) Urine Bilirubin (Negative) Urine Urobilinogen (0.2) mg/dL Ur Leukocyte Esterase (Negative) U Hyaline Cast (Auto) (0-2) /LPF Urine Microscopic RBC (0-5) /HPF Urine Microscopic WBC (0-5) /HPF Ur Epithelial Cells (None Seen) /HPF Urine Bacteria (None Seen) /HPF Urine Culture Reflexed (NO) 05/14/24 Range/Units 00:00 WBC (3.98-10.04) x10^3/uL RBC (3.93-5.22) x10^6/uL Hgb (11.2-15.7) g/dL Hct (34.1-44.9) % MCV (79.4-94.8) fL MCH (25.6-32.2) pg MCHC (32.2-35.5) g/dL RDW (11.7-14.4) % Plt Count (182-369) x10^3/uL MPV (9.4-12.3) fL Gran % (34.0-71.1) % Immature Gran % (Auto) (0.001-0.429) % Nucleat RBC Rel Count (0.00-0.2) % Eos # (Auto) (0.04-0.36) x10^3/uL Immature Gran # (Auto) (0.001-0.031) x10^3u/L Absolute Lymphs (auto) (1.18-3.74) x10^3/uL Absolute Monos (auto) (0.24-0.86) x10^3/uL Absolute Nucleated RBC (0.00-0.012) x10^3u/L Lymphocytes % (19.3-51.7) % Monocytes % (4.7-12.5) % Eosinophils % (0.7-5.8) % Basophils % (0.1-1.2) % Absolute Granulocytes (1.56-6.13) x10^3/uL Basophils # (0.01-0.08) x10^3/uL Sodium (135-145) mmol/L Potassium (3.5-5.1) mmol/L Chloride (98-107) mmol/L Carbon Dioxide (22-30) mmol/L Anion Gap (5-15) MEQ/L BUN (7-17) mg/dL Creatinine (0.52-1.04) mg/dL Estimated GFR ML/MIN Glucose (74-106) mg/dL Lactic Acid (0.4-2.0) Calcium (8.4-10.2) mg/dL Total Bilirubin (0.2-1.3) mg/dL AST (14-36) U/L ALT (0-35) U/L Alkaline Phosphatase (38-126) U/L Serum Total Protein (6.3-8.2) g/dL Albumin (3.5-5.0) g/dL Lipase (23-300) U/L Urine Color Yellow (Yellow) Urine Appearance Turbid A (Clear) Urine pH >=9.0 A (4.6-8.0) Ur Specific [place] 1.025 (1.005-1.030) Urine Protein 30 (Negative) Urine Glucose (UA) Negative (Negative) mg/dL Urine Ketones Negative (Negative) Urine Blood Negative (Negative) Urine Nitrite Negative (Negative) Urine Bilirubin Negative (Negative) Urine Urobilinogen 0.2 (0.2) mg/dL Ur Leukocyte Esterase Large A (Negative) U Hyaline Cast (Auto) 3-5 A (0-2) /LPF Urine Microscopic RBC 3-5 (0-5) /HPF Urine Microscopic WBC 21-50 A (0-5) /HPF Ur Epithelial Cells Few (None Seen) /HPF Urine Bacteria None Seen (None Seen) /HPF Urine Culture Reflexed YES (NO) - Progress Progress: improved Air Movement: good Progress Note: Differential Diagnosis: -UTI (possible due to history of recurrent UTIs) -Intestinal obstruction (possible due to history of impaction and intestinal disease) -Dehydration (possible due to vomiting and poor intake) -Pneumonia (possible due to recent diagnosis and persistent symptoms) Due to the chief complaint, the following diagnoses were also considered but the signs/symptoms, physical exam, and data points are not consistent with any of the following: Appendicitis, Cholecystitis, Pancreatitis, Peptic ulcer disease, Diverticulitis, Gastroenteritis, Inflammatory bowel disease, Ectopic , Ovarian torsion, Testicular torsion, Kidney stones, Pyelonephritis, Abdominal aortic aneurysm, Mesenteric ischemia, Bowel perforation, Peritonitis, Small bowel obstruction, Volvulus, Intussusception, Ischemic colitis. CT abd/pelvis no interval change from prior imaging. perilymphatic nodule marginally increased in chest, recommend outpatient CT chest. Patient feeling much better after IVF, abx and Droperidol. Will DC home with Cefdinir, call with cx results. Blood Culture(s) Obtained: No Antibiotics given: Yes Counseled pt/family regarding: lab results, diagnosis, need for follow-up, rad results Medical Desision Making - Diagnostic Testing Diagnostic test were ordered, analyzed, and reviewed by me: Yes Radiological Interpretation: Interpreted by me, Reviewed by me, Teleradiologist Report - Risk of complications The pt has a mod risk of morbidity or mortality based on: Need for prescription drug management - Departure Departure Disposition: Home Clinical Impression: UTI (urinary tract infection), Hypokalemia, Abdominal pain Condition: Good Critical Care Time: No Referrals: MARQUISE HENDERSON DO [Primary Care Provider] - Follow up/PCP as directed Instructions: Urinary Tract Infection, Adult (DC) Prescriptions: Cefdinir 300 mg PO BID 7 Days #14 cap
[2024-05-14 00:20] LABS: Appearance Turbid (Clear); Bacteria None Seen /HPF (None Seen); Bilirubin Negative (Negative); Blood Negative (Negative); Epithelial Cells Few /HPF (None Seen); Glucose, Urine Negative (Negative); Ketones Negative (Negative); Leukocyte Esterase Large (Negative); Nitrite Negative (Negative); Ph >=9.0 (4.6-8.0); Protein,Urine Dip 30 (Negative); Specific Gravity 1.025 (1.005-1.030); Urobilinogen 0.2 mg/dL (0.2); WBC 21-50 /HPF (0-5)
[2024-05-14] MEDS ORDERED: Inapsine 5 MG/2 ML ONE (00:34)
[2024-05-14] MEDS ORDERED: Sodium Chloride 0.9% 1000 ML 1,000 ML ONE (00:34)
[2024-05-14 00:35] LABS: Absolute Neutrophil Ct (ANC) 2.82 x10^3/uL (1.56-6.13); BASOPHIL % 0.5 % (0.1-1.2); Basophil (Absolute #) 0.02 x10^3/uL (0.01-0.08); Eosinophil % 1.2 % (0.7-5.8); Eosinophil (Absolute #) 0.05 x10^3/uL (0.04-0.36); Hematocrit 34.1 % (34.1-44.9); Hemoglobin 11.3 g/dL (11.2-15.7); IMMATURE GRAN # 0.01 x10^3u/L (0.001-0.031); IMMATURE GRAN % 0.2 % (0.001-0.429); Lymphocyte (Absolute #) 0.86 x10^3/uL (1.18-3.74); Lymphocytes % 20.8 % (19.3-51.7); Mean Cell Volume 89.3 fL (79.4-94.8); Mean Corpuscular Hemoglobin 29.6 pg (25.6-32.2); Mean Corpuscular Hgb Concent. 33.1 g/dL (32.2-35.5); Mean Platelet Volume 10.3 fL (9.4-12.3); Monocyte (Absolute #) 0.37 x10^3/uL (0.24-0.86); Neutrophil % 68.3 % (34.0-71.1); Platelet Count 156 x10^3/uL (182-369); Red Blood Count 3.82 x10^6/uL (3.93-5.22); Red Cell Distribution Width 13.2 % (11.7-14.4); White Blood Count 4.1 x10^3/uL (3.98-10.04)
[2024-05-14] MEDS: Inapsine 5 MG/2 ML IV ONE (00:38)
[2024-05-14] MEDS: Sodium Chloride 0.9% 1000 ML 1,000 ML IV STA (00:38)
[2024-05-14 00:48] LABS: ALBUMIN 3.9 g/dL (3.5-5.0); ANION GAP 12.5 MEQ/L (5-15); BILIRUBIN,TOTAL 0.7 mg/dL (0.2-1.3); Calcium 8.2 mg/dL (8.4-10.2); Creatinine 1 1.14 mg/dL (0.52-1.04); EST GLOMERULAR FILTRATION RATE 52.4 ML/MIN; Total Protein 6.6 g/dL (6.3-8.2)
[2024-05-14] MEDS ORDERED: Sodium Chloride 0.9% 100 ML ONE (01:35)
[2024-05-14] MEDS ORDERED: Klor Con ONE (01:35)
[2024-05-14] MEDS ORDERED: Maxipime 2 GM ONE (01:35)
[2024-05-14] MEDS: Klor Con PO ONE (01:42)
[2024-05-14] MEDS: Maxipime 2 GM** 2 G in Sodium Chloride 0.9% 100 ML IV STA (01:43)
[2024-05-14 02:46] VITALS: RESP 20
--- NOTE | 2024-05-14 02:52 | XRAY ---
CLINICAL HISTORY: abd pain COMPARISON: 07/23/2023 02:19:05 [employer] TECHNIQUE: Multiple contiguous axial images were obtained from the level of diaphragm to the pubis symphysis. This study was acquired after the IV administration of iodinated contrast material, given the patients indications for the examination. If IV contrast material had not been administered, the likelihood of detecting abnormalities relevant to the patients condition would have been substantially decreased. Coronal and sagittal reformatted images were generated and reviewed to improve anatomic localization and optimize lesion detection. CT scan was performed according to ALARA (as low as reasonably achievable). FINDINGS: The visualized lung bases show few non specific subcentimetric nodules in left lung base and mediastinal calcified lymph nodes. ABDOMEN/PELVIS: The liver is normal in size and attenuation. No focal liver lesions are seen. There is no intra or extrahepatic biliary ductal dilatation. Hepatic vasculature is patent. The gallbladder is postop. The spleen, pancreas, and adrenal glands are unremarkable. The kidneys are normal in size and attenuation. There is no hydronephrosis or perinephric fat stranding. No renal calculi or renal masses are identified. The ureters are normal in caliber and no ureteral calculi are seen. The bladder is normal in contour. No evidence of focal or diffuse bowel wall thickening or evidence of bowel obstruction is seen. The appendix is visualized in the right lower quadrant and appears within normal limits. No adenopathy or fluid collections are seen. The aorta is normal in caliber. No aggressive appearing osseous lesions are identified. Post operative changes noted in the form of non visualization of majority of large bowel with surgical lena in pelvis along residual sigmoid colon. No significant abnormal bowel dilatation. IMPRESSION: 1 Post operative changes noted in the form of non visualization of majority of large bowel with surgical lena in pelvis along residual sigmoid colon (and ileum). No significant abnormal bowel dilatation. No interval change from the prior imaging. No signs of bowel obstruction. 2. The visualized lung bases show few non specific subcentimetric nodules in left lung base and mediastinal calcified lymph nodes. The perilymphatic nodules appear to have marginally increased in the interval to the extent covered. Further evaluation with chest CT if clinically relevant. Electronically Signed by: Negro Mahan MD. (05/14/2024 02:48:11 EDT)
[2024-05-14 02:59] VITALS: O2SAT 98
[2024-05-14 03:02] VITALS: BP 96/59; PULSE 79
== END 2024-05-14 03:19 | disposition home or self-care (01) ==
LOC: ED 23:00
DX: N39.0 Urinary tract infection, site not specified (principal); E87.6 Hypokalemia; R10.2 Pelvic and perineal pain; R11.2 Nausea with vomiting, unspecified; E78.5 Hyperlipidemia, unspecified; Z79.01 Long term (current) use of anticoagulants; Z79.891 Long term (current) use of opiate analgesic; Z79.899 Other long term (current) drug therapy
CPT/HCPCS: 36415; 74177; 80053; 81001; 83605; 83690; 85025; 87086; 96374; 96375; 99284; J0692; J1642; J1790; A9270-GY

== ENCOUNTER 2024-05-20 03:27 | Emergency (ER) | payer MEDICARE, OTHER ==
[2024-05-20 03:47] VITALS: TEMP 97.2
--- NOTE | 2024-05-20 03:52 | ERPHSYRPT ---
- History of Present Illness Time Seen by Provider: 05/20/24 03:45 Historian: patient Exam Limitations: no limitations Patient Subjective Stated Complaint: pt states that she has been vomiting since april 21 Triage Nursing Assessment: pt came into the er via ambulance; pt is axo x4; c/o vomiting; pt states 9/10 pain to abd; abd round, non tender; active bowel sounds in all quads; skin PDW; no respiratory distress present; vitals wnl Physician History: This is a 68-year-old white female patient brought to the emergency department by the curing supervisor service secondary to vomiting. Patient states that she has been intermittently vomiting since April 21. Patient is been seen in our facility for urinary tract infection, vomiting and abdominal pain symptoms 5 times since March 24, 2024. Most recently, she was seen on 05/13/[address] scan of the abdomen pelvis on 05/14/2024 early in the morning. That CT scan result was reviewed by me which showed no significant bowel dilatation. No signs of bowel obstruction. No change from the prior study that was used for comparison. Patient has a history of gastroesophageal reflux disease, recurrent UTIs, hypothyroidism and hyperlipidemia. She states the only intervention she would like to have today is intravenous fluids. Patient denies chest pain. Patient denies shortness of breath Timing/Duration: week(s) (Approximately 4 weeks) Activities at Onset: none Quality: aching Abdominal Pain Onset Location: generalized abdomen Severity of Pain-Max: mild Severity of Pain-Current: mild Modifying Factors: Improves With: vomiting Associated Symptoms: loss of appetite, nausea, vomiting, weakness, No chest pain, No diarrhea, No shortness of breath Previous symptoms: same symptoms as today, recently seen, recently treated Allergies/Adverse Reactions: sumatriptan [From Imitrex] Allergy (Intermediate, Verified 05/20/24 03:34) Rash codeine Allergy (Mild, Verified 05/20/24 03:34) Rash MAKES SICK nitrofurantoin [From Macrobid] Allergy (Unknown, Verified 05/20/24 03:34) sulfamethoxazole [From Bactrim] Allergy (Unknown, Verified 05/20/24 03:34) trimethoprim [From Bactrim] Allergy (Unknown, Verified 05/20/24 03:34) sumatriptan succinate [From Imitrex] Allergy (Verified 05/20/24 03:34) hydrocodone bitartrate [From Vicodin] Adverse Reaction (Mild, Verified 05/20/24 03:34) Vomiting hydromorphone [From Dilaudid] Adverse Reaction (Mild, Verified 05/20/24 03:34) pt states makes headache worse. Home Medications: ALPRAZolam 1 MG [Xanax 1 mg] 1 mg PO TID 02/17/13 [History] Aspirin 81 mg PO DAILY 09/11/16 [History] Levothyroxine Sodium 50 Mcg [Synthroid 50 Mcg] 50 mcg PO DAILY 07/06/17 [History] Dexlansoprazole [Dexilant] 60 mg PO DAILY 01/21/20 [History] Albuterol 2.5 mg/3 ml Neb [Proventil 2.5 mg/3 ml Neb] 2.5 mg IH QID 07/23/20 [History] dilTIAZem HCL [Diltiazem 24Hr ER (Cd)] 120 mg PO DAILY 09/29/21 [History] Promethazine HCl 25 mg [Phenergan 25 mg] 25 mg PO BIDPRN PRN 01/18/22 [History] Apixaban [Eliquis] 5 mg PO BID 07/02/22 [History] Fluticasone/Umeclidin/Vilanter [Trelegy Ellipta 200-62.5-25] 1 each IH DAILY 07/02/22 [History] Cetirizine HCl [Zyrtec] 1 tab PO DAILY 11/08/22 [History] Magnesium Oxide 400 mg [Mag-Ox 400] 1 tab PO DAILY 11/08/22 [History] Sodium Bicarbonate 2 tab PO TID 11/08/22 [History] Omeprazole/Sodium Bicarbonate [Omeprazole-Bicarb 40-1,100 Cap] 1 each PO HS 11/28/22 [History] Atorvastatin Calcium [Lipitor 40Mg] 40 mg PO DAILY 03/09/23 [History] Tenapanor HCl [Ibsrela] 50 mg PO BID 05/05/23 [History] Ubrogepant [Ubrelvy] 100 mg PO DAILY PRN 05/05/23 [History] Buprenorphine 1 each TD WEEKLY 03/24/24 [History] Galcanezumab-Gnlm [Emgality] 120 mg SQ UD 04/08/24 [History] Hx Tetanus, Diphtheria Vaccination/Date Given: Yes Hx Influenza Vaccination/Date Given: Yes Hx Pneumococcal Vaccination/Date Given: Yes Travel Risk - International Travel Have you traveled outside of the country in past 3 weeks: No - Emerging Infectious Disease Are you exhibiting symptoms associated with any current EIDs: Yes Symptoms: Abdominal Pain, Vomitting Comment: uti - Review of Systems Constitutional: Weakness Eyes: No Symptoms Ears, Nose, & Throat: No Symptoms Respiratory: No Symptoms Cardiac: No Symptoms Abdominal/Gastrointestinal: Abdominal Pain (Mild diffuse), Nausea, Vomiting, Appetite Changes Genitourinary Symptoms: No Symptoms Musculoskeletal: No Symptoms Skin: No Symptoms Neurological: No Symptoms Psychological: No Symptoms Endocrine: No Symptoms Hematologic/Lymphatic: No Symptoms Immunological/Allergic: No Symptoms All Other Systems: Reviewed and Negative - Past Medical History Pertinent Past Medical History: Yes Neurological History: Migraines, TIA ENT History: Cataracts Cardiac History: High Cholesterol Respiratory History: Bronchitis, COPD, Pneumonia, Pulmonary Embolism Endocrine Medical History: Hypothyroidism Musculoskeletal History: Osteoarthritis GI Medical History: GERD, Gallbladder Disease, Other History: Other Psycho-Social History: Anxiety, Depression, Panic Disorder Female Reproductive Disorders: No Pertinent History Other Medical History: frequent uti's, chronic pseudo obstruction, blood clot, partial bowel blockage. septic in august 2023. post a cath replaced 10/15/23, mass to left kidney 1.5cm - Past Surgical History Past Surgical History: Yes Neuro Surgical History: No Pertinent History Cardiac: No Pertinent History Respiratory: No Pertinent History Gastrointestinal: Cholecystectomy, Other Genitourinary: No Pertinent History Musculoskeletal: No Pertinent History Female Surgical History: Hysterectomy Other Surgical History: all of large intestine removed and most of small i ntestines removed, feeding tube in 2004 removed in 2007. Significant Family History: no pertinent family hx - Social History Smoking Status: Never smoker Exposure to second hand smoke: No Drug Use: none - Social Determinants of Health Will the patient participate in the screening: Yes Do you worry about a steady place to live?: No Do you have any problems with any of the following?: No known problems In the past 12 months,have you had to go without utilities?: No Transportation Issues: No Has anyone in your support network made you feel unsafe?: No Have you or anyone in your house had to go w/o enough food: No - Nursing Vital Signs Nursing Vital Signs: Initial Vital Signs Pulse Rate 92 H 05/20/24 03:34 Respiratory Rate 15 05/20/24 03:34 Blood Pressure 102/80 05/20/24 03:34 O2 Sat by Pulse Oximetry 95 05/20/24 03:34 Pain Scale Pain Intensity 9 - Physical Exam General Appearance: no apparent distress, alert, anxiety Eye Exam: PERRL/EOMI, eyes nml inspection Ears, Nose, Throat Exam: normal ENT inspection, moist mucous membranes Neck Exam: normal inspection, non-tender, supple, full range of motion Respiratory Exam: normal breath sounds, lungs clear, airway intact, No chest tenderness, No respiratory distress Cardiovascular Exam: regular rate/rhythm, normal heart sounds, normal peripheral pulses Gastrointestinal/Abdomen Exam: soft, normal bowel sounds, tenderness (Mild diffuse), No guarding, No rebound Pelvic Exam: not done Rectal Exam: not done Back Exam: normal inspection, normal range of motion, No CVA tenderness, No vertebral tenderness Extremity Exam: normal inspection, normal range of motion, pelvis stable Neurologic Exam: alert, 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, cooperative, glass setter II-XII nml as tested, nml cerebellar function, nml station & gait, sensation nml Skin Exam: normal color, warm, dry Lymphatic Exam: No adenopathy SpO2 Interpretation: borderline oxygenation SpO2: 94 O2 Delivery: Nasal Cannula - Course Nursing assessment & vital signs reviewed: Yes Ordered Tests: Active Orders 24 hr Category Date Time Status IV Insertion STAT Care 05/20/24 03:52 Active ABDOMEN 2 VIEW Stat Exams 05/20/24 03:53 Completed AMYLASE Stat Lab 05/20/24 04:15 Completed CBC W DIFF Stat Lab 05/20/24 04:15 Completed CMP Stat Lab 05/20/24 04:15 Completed LIPASE Stat Lab 05/20/24 04:15 Completed Lactic Acid Stat Lab 05/20/24 04:10 Completed Medication Summary Generic Name Dose Route Start Last Admin Trade Name Freq PRN Reason Stop Dose Admin Heparin Sodium (Beef Lung) 500 units 05/20/24 05:23 Heparin Lock Flush Pf 500 Units/5 Ml Syringe PORT FLUSH 06/19/24 05:22 PRN PRN IV PORT FLUSH Discontinued Medications Generic Name Dose Route Start Last Admin Trade Name Freq PRN Reason Stop Dose Admin Sodium Chloride 1,000 mls @ 999 mls/hr 05/20/24 03:52 05/20/24 05:15 Sodium Chloride 0.9% 1000 Ml IV 05/20/24 04:52 Infused .Q1H1M STA Infusion Sodium Chloride Confirm 05/20/24 03:58 Sodium Chloride 0.9% 1000 Ml Administered 05/20/24 03:59 Dose 1,000 mls @ ud .ROUTE .STK-MED ONE Ondansetron HCl 4 mg 05/20/24 03:52 05/20/24 04:01 Ondansetron Hcl 4 Mg/2 Ml Vial IV 05/20/24 03:53 4 mg STAT ONE Administration Ondansetron HCl Confirm 05/20/24 03:58 Ondansetron Hcl 4 Mg/2 Ml Vial Administered 05/20/24 03:59 Dose 4 mg .ROUTE .STK-MED ONE Lab/Rad Data: Laboratory Result Diagrams 05/20/24 04:15 05/20/24 04:15 Laboratory Results 05/20/24 05/20/24 05/20/24 Range/Units 04:15 04:15 04:10 WBC 5.3 (3.98-10.04) x10^3/uL RBC 4.30 (3.93-5.22) x10^6/uL Hgb 12.9 (11.2-15.7) g/dL Hct 38.9 (34.1-44.9) % MCV 90.5 (79.4-94.8) fL MCH 30.0 (25.6-32.2) pg MCHC 33.2 (32.2-35.5) g/dL RDW 13.4 (11.7-14.4) % Plt Count 188 (182-369) x10^3/uL MPV 10.5 (9.4-12.3) fL Gran % 73.6 H (34.0-71.1) % Immature Gran % (Auto) 0.2 (0.001-0.429) % Nucleat RBC Rel Count 0.0 (0.00-0.2) % Eos # (Auto) 0.06 (0.04-0.36) x10^3/uL Immature Gran # (Auto) 0.01 (0.001-0.031) x10^3u/L Absolute Lymphs (auto) 0.89 L (1.18-3.74) x10^3/uL Absolute Monos (auto) 0.41 (0.24-0.86) x10^3/uL Absolute Nucleated RBC 0.00 (0.00-0.012) x10^3u/L Lymphocytes % 16.8 L (19.3-51.7) % Monocytes % 7.7 (4.7-12.5) % Eosinophils % 1.1 (0.7-5.8) % Basophils % 0.6 (0.1-1.2) % Absolute Granulocytes 3.91 (1.56-6.13) x10^3/uL Basophils # 0.03 (0.01-0.08) x10^3/uL Sodium 141 (135-145) mmol/L Potassium 3.7 (3.5-5.1) mmol/L Chloride 106 (98-107) mmol/L Carbon Dioxide 22 (22-30) mmol/L Anion Gap 16.6 H (5-15) MEQ/L BUN 24 H (7-17) mg/dL Creatinine 1.21 H (0.52-1.04) mg/dL Estimated GFR 48.8 ML/MIN Glucose 125 H (74-106) mg/dL Lactic Acid 1.0 (0.4-2.0) Calcium 9.2 (8.4-10.2) mg/dL Total Bilirubin 0.80 (0.2-1.3) mg/dL AST 34 (14-36) U/L ALT 24 (0-35) U/L Alkaline Phosphatase 122 (38-126) U/L Serum Total Protein 7.3 (6.3-8.2) g/dL Albumin 4.3 (3.5-5.0) g/dL Amylase 72 (30-110) U/L Lipase 89 (23-300) U/L - Progress Progress: improved, re-examined Progress Note: 05/20/24 04:08 My medical decision making and the assignment of moderate complexity of this patient's medical issue today is based on review of the patient's past medical history, review the patient's medication list, review of the patient's drug allergy list, history of present illness and physical findings on examination. The workup today includes placement of a intravenous line, infusion of 1 L of crystalloid, infusion of Zofran, CBC, CMP, amylase, lipase and 2 view of the abdomen. Differential diagnosis includes but is not limited to bowel obstruction, electrolyte abnormalities, ileus, pancreatitis, dehydration 05/20/24 05:54 I interpreted the patient's laboratory data results. Based on the laboratory data results, the patient does not have any emergent medical issue. The abdominal x-rays were interpreted by the radiologist and I reviewed the impression the impression states unremarkable study. No evidence for bowel obstruction or distention Counseled pt/family regarding: lab results, diagnosis, need for follow-up, rad results Medical Desision Making - Independent Historian Additional History obtained from: Core Cleaner/EMT - Diagnostic Testing Diagnostic test were ordered, analyzed, and reviewed by me: Yes - Risk of complications Low Risk: Low risk of morbidity from additional dx testing or treatment - Departure Departure Disposition: Home Clinical Impression: Vomiting Condition: Stable Critical Care Time: No Referrals: MARQUISE HENDERSON DO [Primary Care Provider] - Follow up/PCP as directed Additional Instructions: Drink plenty of clear liquids before advancing your diet. Take your medications as prescribed. Call your primary care provider on 05/22/2024, to make arrangements for a follow-up appointment Prescriptions: Ondansetron ODT 4 MG [Zofran Odt 4 mg] 4 mg PO Q6H PRN PRN #10 tablet PRN Reason: Vomiting
[2024-05-20] MEDS ORDERED: Zofran 4 MG/2 ML VIAL ONE (03:58)
[2024-05-20] MEDS ORDERED: Sodium Chloride 0.9% 1000 ML 1,000 ML ONE (03:58)
[2024-05-20] MEDS: Zofran 4 MG/2 ML VIAL IV ONE (04:01)
[2024-05-20] MEDS: Sodium Chloride 0.9% 1000 ML 1,000 ML IV STA (04:01)
[2024-05-20 04:19] LABS: Absolute Neutrophil Ct (ANC) 3.91 x10^3/uL (1.56-6.13); BASOPHIL % 0.6 % (0.1-1.2); Basophil (Absolute #) 0.03 x10^3/uL (0.01-0.08); Eosinophil % 1.1 % (0.7-5.8); Eosinophil (Absolute #) 0.06 x10^3/uL (0.04-0.36); Hematocrit 38.9 % (34.1-44.9); Hemoglobin 12.9 g/dL (11.2-15.7); IMMATURE GRAN # 0.01 x10^3u/L (0.001-0.031); IMMATURE GRAN % 0.2 % (0.001-0.429); Lymphocyte (Absolute #) 0.89 x10^3/uL (1.18-3.74); Lymphocytes % 16.8 % (19.3-51.7); Mean Cell Volume 90.5 fL (79.4-94.8); Mean Corpuscular Hgb Concent. 33.2 g/dL (32.2-35.5); Mean Platelet Volume 10.5 fL (9.4-12.3); Monocyte (Absolute #) 0.41 x10^3/uL (0.24-0.86); Monocytes % 7.7 % (4.7-12.5); Neutrophil % 73.6 % (34.0-71.1); Platelet Count 188 x10^3/uL (182-369); Red Cell Distribution Width 13.4 % (11.7-14.4); White Blood Count 5.3 x10^3/uL (3.98-10.04)
[2024-05-20 04:33] LABS: ALBUMIN 4.3 g/dL (3.5-5.0); ANION GAP 16.6 MEQ/L (5-15); BILIRUBIN,TOTAL 0.8 mg/dL (0.2-1.3); Calcium 9.2 mg/dL (8.4-10.2); Creatinine 1 1.21 mg/dL (0.52-1.04); EST GLOMERULAR FILTRATION RATE 48.8 ML/MIN; Potassium 3.7 mmol/L (3.5-5.1); Total Protein 7.3 g/dL (6.3-8.2)
--- NOTE | 2024-05-20 05:11 | XRAY ---
CLINICAL HISTORY: Vomiting COMPARISON: The Prior CT study dated 05/14/2024 was reviewed. TECHNIQUE: X-ray images of the abdomen were obtained in supine and upright positions. FINDINGS: Gas Pattern: Gas pattern within the abdomen is unremarkable. No evidence of bowel obstruction or distention. Soft Tissues: Soft tissues of the abdomen appear normal without evidence of masses or calcifications. Liver, spleen, and kidneys are of normal size and position. Multiple pelvic calcific phleboli are noted. IMPRESSION: 1. Unremarkable plain X-ray abdomen study. 2. No newly developed acute abnormalities were identified. Electronically Signed by: Evelyne Razo MD. (05/20/2024 05:06:28 EDT)
[2024-05-20 06:01] VITALS: BP 109/66; PULSE 73; RESP 16; O2SAT 95
== END 2024-05-20 06:08 | disposition home or self-care (01) ==
LOC: ED 03:27
DX: R11.2 Nausea with vomiting, unspecified (principal); E78.5 Hyperlipidemia, unspecified; Z79.01 Long term (current) use of anticoagulants; Z79.899 Other long term (current) drug therapy
CPT/HCPCS: 36415; 74021; 80053; 82150; 83605; 83690; 85025; 96361; 96374; 99284; J1642; J2405

== ENCOUNTER 2024-05-30 12:14 | Emergency (ER) | payer MEDICARE, OTHER ==
--- NOTE | 2024-05-30 12:38 | ERPHSYRPT ---
- History of Present Illness Time Seen by Provider: 05/30/24 12:35 Source: patient Exam Limitations: no limitations Patient Subjective Stated Complaint: PT states "I went to [facility] and I was dx with pneurmonia and UTI and I was given augmentin and I have 2 left and I am still burning and peeing quite a bit." Triage Nursing Assessment: Pt presented alert and oriented X 3, skin wpd. tp ambulates with a hunched over gait. Pt keeps grabbing her groin. Physician History: Patient is a 68-year-old female presents to our ED for evaluation of a UTI. Patient states she was at [facility] last week. Patient was diagnosed with pneumonia and a urinary tract infection. Patient states her pneumonia symptoms have significantly improved and are just about completely resolved however she is still experiencing some burning when she urinates. Patient is not sure if the Augmentin is helping her urinary tract infection. Patient has 2 days left of her antibiotic and is concerned that she has a residual UTI. No other symptomology. No fever no chest pain no shortness of breath no nausea vomiting or diaphoresis. Patient otherwise feels well. She voices no other complaints or concerns at this time. Portions of this note were created with voice recognition technology. There may be grammatical, spelling, punctuation or sound alike errors Timing/Duration: week(s) (1 week) Severity: moderate Modifying Factors: Improves With: nothing Associated Symptoms: denies symptoms Allergies/Adverse Reactions: sumatriptan [From Imitrex] Allergy (Intermediate, Verified 05/20/24 03:34) Rash codeine Allergy (Mild, Verified 05/20/24 03:34) Rash MAKES SICK nitrofurantoin [From Macrobid] Allergy (Unknown, Verified 05/20/24 03:34) sulfamethoxazole [From Bactrim] Allergy (Unknown, Verified 05/20/24 03:34) trimethoprim [From Bactrim] Allergy (Unknown, Verified 05/20/24 03:34) sumatriptan succinate [From Imitrex] Allergy (Verified 05/20/24 03:34) hydrocodone bitartrate [From Vicodin] Adverse Reaction (Mild, Verified 05/20/24 03:34) Vomiting hydromorphone [From Dilaudid] Adverse Reaction (Mild, Verified 05/20/24 03:34) pt states makes headache worse. Home Medications: ALPRAZolam 1 MG [Xanax 1 mg] 1 mg PO TID 02/17/13 [History] Aspirin 81 mg PO DAILY 09/11/16 [History] Levothyroxine Sodium 50 Mcg [Synthroid 50 Mcg] 50 mcg PO DAILY 07/06/17 [History] Dexlansoprazole [Dexilant] 60 mg PO DAILY 01/21/20 [History] Albuterol 2.5 mg/3 ml Neb [Proventil 2.5 mg/3 ml Neb] 2.5 mg IH QID 07/23/20 [History] dilTIAZem HCL [Diltiazem 24Hr ER (Cd)] 120 mg PO DAILY 09/29/21 [History] Promethazine HCl 25 mg [Phenergan 25 mg] 25 mg PO BIDPRN PRN 01/18/22 [History] Apixaban [Eliquis] 5 mg PO BID 07/02/22 [History] Fluticasone/Umeclidin/Vilanter [Trelegy Ellipta 200-62.5-25] 1 each IH DAILY 07/02/22 [History] Cetirizine HCl [Zyrtec] 1 tab PO DAILY 11/08/22 [History] Magnesium Oxide 400 mg [Mag-Ox 400] 1 tab PO DAILY 11/08/22 [History] Sodium Bicarbonate 2 tab PO TID 11/08/22 [History] Omeprazole/Sodium Bicarbonate [Omeprazole-Bicarb 40-1,100 Cap] 1 each PO HS 11/28/22 [History] Atorvastatin Calcium [Lipitor 40Mg] 40 mg PO DAILY 03/09/23 [History] Tenapanor HCl [Ibsrela] 50 mg PO BID 05/05/23 [History] Ubrogepant [Ubrelvy] 100 mg PO DAILY PRN 05/05/23 [History] Buprenorphine 1 each TD WEEKLY 03/24/24 [History] Galcanezumab-Gnlm [Emgality] 120 mg SQ UD 04/08/24 [History] Hx Tetanus, Diphtheria Vaccination/Date Given: Yes Hx Influenza Vaccination/Date Given: Yes Hx Pneumococcal Vaccination/Date Given: Yes Immunizations Up to Date: No Travel Risk - International Travel Have you traveled outside of the country in past 3 weeks: No - Emerging Infectious Disease Are you exhibiting symptoms associated with any current EIDs: No Symptoms: Abdominal Pain, Vomitting Comment: uti - Review of Systems Constitutional: No Symptoms, No Fever, No Chills Eyes: No Symptoms Ears, Nose, & Throat: No Symptoms Respiratory: No Symptoms, No Cough, No Dyspnea Cardiac: No Symptoms, No Chest Pain, No Edema, No Syncope Abdominal/Gastrointestinal: No Symptoms, No Abdominal Pain, No Nausea, No Vomiting, No Diarrhea Genitourinary Symptoms: No Symptoms, No Dysuria Musculoskeletal: No Symptoms, No Back Pain, No Neck Pain Skin: No Symptoms, No Rash Neurological: No Symptoms, No Dizziness, No Focal Weakness, No Sensory Changes Psychological: No Symptoms Endocrine: No Symptoms Hematologic/Lymphatic: No Symptoms Immunological/Allergic: No Symptoms All Other Systems: Reviewed and Negative - Past Medical History Pertinent Past Medical History: Yes Neurological History: Migraines, TIA ENT History: Cataracts Cardiac History: High Cholesterol Respiratory History: Bronchitis, COPD, Pneumonia, Pulmonary Embolism Endocrine Medical History: Hypothyroidism Musculoskeletal History: Osteoarthritis GI Medical History: GERD, Gallbladder Disease, Other History: Other Psycho-Social History: Anxiety, Depression, Panic Disorder Female Reproductive Disorders: No Pertinent History Other Medical History: frequent uti's, chronic pseudo obstruction, blood clot, partial bowel blockage. septic in august 2023. post a cath replaced 10/15/23, mass to left kidney 1.5cm - Past Surgical History Past Surgical History: Yes Neuro Surgical History: No Pertinent History Cardiac: No Pertinent History Respiratory: No Pertinent History Gastrointestinal: Cholecystectomy, Other Genitourinary: No Pertinent History Musculoskeletal: No Pertinent History Female Surgical History: Hysterectomy Other Surgical History: all of large intestine removed and most of small intestines removed, feeding tube in 2004 removed in 2007. Significant Family History: no pertinent family hx - Social History Smoking Status: Never smoker Exposure to second hand smoke: No Drug Use: none - Social Determinants of Health Will the patient participate in the screening: Yes Do you worry about a steady place to live?: No Do you have any problems with any of the following?: No known problems In the past 12 months,have you had to go without utilities?: No Transportation Issues: No Has anyone in your support network made you feel unsafe?: No Have you or anyone in your house had to go w/o enough food: No - Nursing Vital Signs Nursing Vital Signs: Initial Vital Signs Temperature 97.9 F 05/30/24 12:30 Pulse Rate 120 H 05/30/24 12:30 Respiratory Rate 22 05/30/24 12:30 Blood Pressure 135/90 05/30/24 12:30 O2 Sat by Pulse Oximetry 100 05/30/24 12:30 Pain Scale Pain Intensity 8 - Physical Exam General Appearance: no apparent distress, alert Eye Exam: PERRL/EOMI, eyes nml inspection Ears, Nose, Throat Exam: normal ENT inspection, moist mucous membranes Neck Exam: normal inspection, full range of motion Respiratory Exam: normal breath sounds, lungs clear, No respiratory distress Cardiovascular Exam: regular rate/rhythm, normal heart sounds, normal peripheral pulses Gastrointestinal/Abdomen Exam: soft, normal bowel sounds, No tenderness, No mass Back Exam: normal inspection, normal range of motion, No CVA tenderness, No vertebral tenderness Extremity Exam: normal inspection, normal range of motion, pelvis stable Neurologic Exam: alert, 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, cooperative, normal mood/affect, nml station & gait, sensation nml, No motor deficits Skin Exam: normal color, warm, dry, No rash Lymphatic Exam: No adenopathy SpO2 Interpretation: normal SpO2: 100 O2 Delivery: Room Air - Course Nursing assessment & vital signs reviewed: Yes Ordered Tests: Active Orders 24 hr Category Date Time Status CULTURE,URINE Stat Lab 05/30/24 12:30 Received UA W/RFX UR CULTURE Stat Lab 05/30/24 12:30 Completed Medication Summary Discontinued Medications Generic Name Dose Route Start Last Admin Trade Name Elton PRN Reason Stop Dose Admin Ketorolac Tromethamine 30 mg 05/30/24 13:25 05/30/24 13:30 Ketorolac Tromethamine 30 Mg/Ml Inj IM 05/30/24 13:26 30 mg STAT ONE Administration Ketorolac Tromethamine Confirm 05/30/24 13:29 Ketorolac Tromethamine 30 Mg/Ml Inj Administered 05/30/24 13:30 Dose 30 mg .ROUTE .[facility] Lab/Rad Data: Laboratory Results 05/30/24 Range/Units 12:30 Urine Color Yellow (Yellow) Urine Appearance Cloudy A (Clear) Urine pH 5.0 (4.6-8.0) Ur Specific [place] <=1.005 (1.005-1.030) Urine Protein Negative (Negative) Urine Glucose (UA) Negative (Negative) mg/dL Urine Ketones Negative (Negative) Urine Blood Negative (Negative) Urine Nitrite Negative (Negative) Urine Bilirubin Negative (Negative) Urine Urobilinogen 0.2 (0.2) mg/dL Ur Leukocyte Esterase Large A (Negative) U Hyaline Cast (Auto) 0-2 (0-2) /LPF Urine Microscopic RBC 0-2 (0-5) /HPF Urine Microscopic WBC 3-5 (0-5) /HPF Ur Epithelial Cells Few (None Seen) /HPF Urine Bacteria Few A (None Seen) /HPF Urine Culture Reflexed YES (NO) - Progress Progress: improved Progress Note: 68-year-old female presents to our ED for evaluation of dysuria. Patient currently on Augmentin. Patient diagnosed with a UTI last week. Patient is got 2 days left of her Augmentin. Patient was concerned that her UTI was not resolving. Physical exam essentially nonremarkable. No CVA tenderness. UA shows leukocyte esterase positive. Patient advised to continue taking her Augmentin until completion. Patient currently has a follow-up appointment with a urologist next week. Patient received Toradol for discomfort. Patient reassessed. Pain resolved. Patient dates she is ready for discharge. Caregiver at bedside. They voiced no other complaints or concerns at this time. Portions of this note were created with voice recognition technology. There may be grammatical, spelling, punctuation or sound alike errors Complexity of problem addressed is moderate acute complicated no critical care time. Complexity of data reviewed and analyzed as moderate. Test ordered test reviewed results analyzed and correlated clinically with history and physical exam. Risk of complication and or risk of morbidity/mortality of patient management is moderate. A prescription for Toradol forwarded to patient's pharmacy. Vital stable. Time spent to discharge patient is approximately 10 minutes. Plan of care established for shared decision making. No social determinants of health present to impede follow-up. Portions of this note were created with voice recognition technology. There may be grammatical, spelling, punctuation or sound alike errors 05/30/24 13:57 Counseled pt/family regarding: lab results, diagnosis, need for follow-up - Departure Departure Disposition: Home Clinical Impression: Dysuria Condition: Stable Critical Care Time: No Referrals: MARQUISE HENDERSON DO [Primary Care Provider] - Follow up/PCP as directed Additional Instructions: Discharge/Care Plan GEOVANNY FREY was seen on 05/30/24 in the Emergency Room. The patient was counseled regarding Diagnosis,Lab results, Imaging studies, need for follow up and when to return to the Emergency Room. Prescriptions given: Discharge Note I have spoken with the patient and/or caregivers. I have explained the patient's condition, diagnosis and treatment plan based on the information available to me at this time. I have answered the patient's and/or caregiver's questions and addressed any concerns. The patient and/or caregivers have as good understanding of the patient's diagnosis, condition and treatment plan as can be expected at this point. The vital signs have been stable. The patient's condition is stable and appropriate for discharge from the emergency department. The patient will pursue further outpatient evaluation with the primary care physician or other designated or consulting physician as outlined in the discharge instructions. The patient and/or caregivers are agreeable to this plan of care and follow-up instructions have been explained in detail. The patient and/or caregivers have received these instruction. The patient/and or caregivers are aware that any significant change in condition or worsening of symptoms should prompt an immediate return to this or the closest emergency department or call 911. Prescriptions: Ketorolac Trometh 10 mg Tab [TORAdol 10 MG TABLET] 10 mg PO TID 5 Days #15 tablet
[2024-05-30 13:00] LABS: Appearance Cloudy (Clear); Bilirubin Negative (Negative); Blood Negative (Negative); Glucose, Urine Negative (Negative); Ketones Negative (Negative); Leukocyte Esterase Large (Negative); Nitrite Negative (Negative); Protein,Urine Dip Negative (Negative); Specific Gravity <=1.005 (1.005-1.030); Urobilinogen 0.2 mg/dL (0.2)
[2024-05-30 13:03] LABS: Bacteria Few /HPF (None Seen); Epithelial Cells Few /HPF (None Seen); Hyaline Casts 0-2 /LPF (0-2); RBC 0-2 /HPF (0-5)
[2024-05-30 13:20] VITALS: PULSE 88; RESP 18
[2024-05-30] MEDS ORDERED: TORAdol 30 mg Injection ONE (13:29)
[2024-05-30] MEDS: TORAdol 30 mg Injection IM ONE (13:30)
[2024-05-30 13:58] VITALS: BP 124/81; TEMP 97.6
[2024-05-30 14:00] VITALS: O2SAT 100
== END 2024-05-30 14:00 | disposition home or self-care (01) ==
LOC: ED 12:14
DX: R30.0 Dysuria (principal); E78.5 Hyperlipidemia, unspecified; Z79.01 Long term (current) use of anticoagulants; Z79.891 Long term (current) use of opiate analgesic; Z79.899 Other long term (current) drug therapy
CPT/HCPCS: 81001; 87086; 96372; 99283; J1885

== ENCOUNTER 2024-10-25 16:28 | Emergency (ER) | payer MEDICARE, OTHER ==
[2024-10-25 16:44] VITALS: RESP 20; TEMP 97.6; O2SAT 98
--- NOTE | 2024-10-25 17:25 | XRAY ---
Indication: Short of breath. Comparison: April 25, 2024 PA/lateral chest unchanged again with recent CT proven tree-in-bud like opacities bilaterally. Heart not enlarged again with right Port-A-Cath and small mediastinal/right hilar calcified nodes. Bony thorax intact again with osteopenia and minimal lower levoscoliosis. No new/acute findings.
--- NOTE | 2024-10-25 17:33 | ERPHSYRPT ---
- History of Present Illness Time Seen by Provider: 10/25/24 17:25 Source: patient Exam Limitations: no limitations Patient Subjective Stated Complaint: patient presents to ed with complaints of shortness of breath, patient stated she was in [facility] on october 12 w ith same complaint, patient denies chest pain, Triage Nursing Assessment: patient presents to ed via wheelchair by self, patient complains of shortness of breath with oxygen saturation of 98% via 3 L nasal cannula, patient presented to ed with oxygen in place per normal, patient's lungs clear throughout all gillis, dry/hacky cough noted, skin n/w/d Physician History: 69-year-old female presents emergency room with cough patient's concern for pneumonia she has a history of COPD uses 3 L of oxygen chronically patient been using albuterol inhaler at home now in ED for further eval Timing/Duration: today Severity: mild Associated Symptoms: cough, No nausea, No vomiting, No diaphoresis, No chest pain, No seizure Allergies/Adverse Reactions: sumatriptan [From Imitrex] Allergy (Intermediate, Verified 10/25/24 16:41) Rash codeine Allergy (Mild, Verified 10/25/24 16:41) Rash MAKES SICK nitrofurantoin [From Macrobid] Allergy (Unknown, Verified 10/25/24 16:41) sulfamethoxazole [From Bactrim] Allergy (Unknown, Verified 10/25/24 16:41) trimethoprim [From Bactrim] Allergy (Unknown, Verified 10/25/24 16:41) sumatriptan succinate [From Imitrex] Allergy (Verified 10/25/24 16:41) hydrocodone bitartrate [From Vicodin] Adverse Reaction (Mild, Verified 10/25/24 16:41) Vomiting hydromorphone [From Dilaudid] Adverse Reaction (Mild, Verified 10/25/24 16:41) pt states makes headache worse. Home Medications: ALPRAZolam 1 MG [Xanax 1 mg] 1 mg PO TID 02/17/13 [History] Aspirin 81 mg PO DAILY 09/11/16 [History] Levothyroxine Sodium 50 Mcg [Synthroid 50 Mcg] 50 mcg PO DAILY 07/06/17 [History] Dexlansoprazole [Dexilant] 60 mg PO DAILY 01/21/20 [History] Albuterol 2.5 mg/3 ml Neb [Proventil 2.5 mg/3 ml Neb] 2.5 mg IH QID 07/23/20 [History] dilTIAZem HCL [Diltiazem 24Hr ER (Cd)] 120 mg PO DAILY 09/29/21 [History] Promethazine HCl 25 mg [Phenergan 25 mg] 25 mg PO BIDPRN PRN 01/18/22 [History] Apixaban [Eliquis] 5 mg PO BID 07/02/22 [History] Fluticasone/Umeclidin/Vilanter [Trelegy Ellipta 200-62.5-25] 1 each IH DAILY 07/02/22 [History] Cetirizine HCl [Zyrtec] 1 tab PO DAILY 11/08/22 [History] Magnesium Oxide 400 mg [Mag-Ox 400] 1 tab PO DAILY 11/08/22 [History] Sodium Bicarbonate 2 tab PO TID 11/08/22 [History] Omeprazole/Sodium Bicarbonate [Omeprazole-Bicarb 40-1,100 Cap] 1 each PO HS 11/28/22 [History] Atorvastatin Calcium [Lipitor 40Mg] 40 mg PO DAILY 03/09/23 [History] Tenapanor HCl [Ibsrela] 50 mg PO BID 05/05/23 [History] Ubrogepant [Ubrelvy] 100 mg PO DAILY PRN 05/05/23 [History] Buprenorphine 1 each TD WEEKLY 03/24/24 [History] Galcanezumab-Gnlm [Emgality] 120 mg SQ UD 04/08/24 [History] Linaclotide [Linzess] 145 mcg PO DAILY 08/09/24 [History] Hx Tetanus, Diphtheria Vaccination/Date Given: Yes Hx Influenza Vaccination/Date Given: Yes Hx Pneumococcal Vaccination/Date Given: Yes Travel Risk - International Travel Have you traveled outside of the country in past 3 weeks: No - Emerging Infectious Disease Are you exhibiting symptoms associated with any current EIDs: No Symptoms: Abdominal Pain, Vomitting Comment: uti - Review of Systems Constitutional: No Fever, No Chills Eyes: No Symptoms Ears, Nose, & Throat: No Symptoms Respiratory: Cough Cardiac: No Chest Pain, No Edema, No Syncope Abdominal/Gastrointestinal: No Abdominal Pain, No Nausea, No Vomiting, No Diarrhea Genitourinary Symptoms: No Dysuria Musculoskeletal: No Back Pain, No Neck Pain Skin: No Rash Neurological: No Dizziness, No Focal Weakness, No Sensory Changes Psychological: No Symptoms Endocrine: No Symptoms All Other Systems: Reviewed and Negative - Past Medical History Pertinent Past Medical History: Yes Neurological History: Migraines ENT History: Cataracts Cardiac History: High Cholesterol Respiratory History: Bronchitis, COPD, Pneumonia, Pulmonary Embolism Endocrine Medical History: Hypothyroidism Musculoskeletal History: Osteoarthritis GI Medical History: GERD, Other History: Other Psycho-Social History: Anxiety, Depression, Panic Disorder Female Reproductive Disorders: No Pertinent History Other Medical History: frequent uti's, chronic pseudo obstruction, blood clot, p artial bowel blockage. septic in august 2023. post a cath replaced 10/15/23, mass to left kidney 1.5cm - Past Surgical History Past Surgical History: Yes Neuro Surgical History: No Pertinent History Cardiac: No Pertinent History Respiratory: No Pertinent History Gastrointestinal: Cholecystectomy, Other Genitourinary: No Pertinent History Musculoskeletal: No Pertinent History Female Surgical History: Hysterectomy Other Surgical History: all of large intestine removed and most of small intestines removed, feeding tube in 2004 removed in 2007. Significant Family History: no pertinent family hx - Social History Smoking Status: Never smoker Exposure to second hand smoke: No Drug Use: none - Social Determinants of Health Will the patient participate in the screening: Yes Do you worry about a steady place to live?: No Do you have any problems with any of the following?: No known problems In the past 12 months,have you had to go without utilities?: No Transportation Issues: No Has anyone in your support network made you feel unsafe?: No Have you or anyone in your house had to go w/o enough food: No - Nursing Vital Signs Nursing Vital Signs: Initial Vital Signs Temperature 97.6 F 10/25/24 16:28 Pulse Rate 110 H 10/25/24 16:28 Respiratory Rate 20 10/25/24 16:28 Blood Pressure 104/63 10/25/24 16:28 O2 Sat by Pulse Oximetry 98 10/25/24 16:28 Pain Scale Pain Intensity 2 - Physical Exam General Appearance: no apparent distress, alert Eye Exam: PERRL/EOMI, eyes nml inspection Ears, Nose, Throat Exam: normal ENT inspection, TMs normal, pharynx normal, moist mucous membranes Neck Exam: normal inspection, non-tender, supple, full range of motion Respiratory Exam: normal breath sounds, lungs clear, No respiratory distress Cardiovascular Exam: regular rate/rhythm, normal heart sounds, normal peripheral pulses Gastrointestinal/Abdomen Exam: soft, normal bowel sounds, No tenderness, No mass Back Exam: normal inspection, normal range of motion, No CVA tenderness, No vertebral tenderness Extremity Exam: normal inspection, normal range of motion, pelvis stable Neurologic Exam: alert, 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, cooperative, normal mood/affect, nml cerebellar function, nml station & gait, sensation nml, No motor deficits Skin Exam: normal color, warm, dry, No rash Lymphatic Exam: No adenopathy SpO2: 98 - Course Nursing assessment & vital signs reviewed: Yes EKG Interpreted by Me: RATE (113), Sinus Tach, Non-specific ST Changes, Other (no STEMI) Ordered Tests: Active Orders 24 hr Category Date Time Status CHEST 2 VIEWS (PA AND LAT) Stat Exams 10/25/24 16:46 Completed - Progress Progress Note: 10/25/24 17:32 Patient's x-ray shows no evidence of pneumonia 10/25/24 17:32 PA/lateral chest unchanged again with recent CT proven tree-in-bud like opacities bilaterally. Heart not enlarged again with right Port-A-Cath and small mediastinal/right hilar calcified nodes. Bony thorax intact again with osteopenia and minimal lower levoscoliosis. No new/acute findings. - Departure Departure Disposition: Home Clinical Impression: COPD (chronic obstructive pulmonary disease) Qualifiers: COPD type: unspecified COPD Qualified Code(s): J44.9 - Chronic obstructive pulmonary disease, unspecified Condition: Stable Critical Care Time: No Referrals: MARQUISE HENDERSON DO [Primary Care Provider, [facility]] - Follow up/PCP as directed Instructions: Chronic Obstructive Pulmonary Disease
[2024-10-25 17:40] VITALS: BP 100/67; PULSE 92
== END 2024-10-25 17:40 | disposition home or self-care (01) ==
LOC: ED 16:28
DX: J44.9 Chronic obstructive pulmonary disease, unspecified (principal); R06.02 Shortness of breath; Z79.01 Long term (current) use of anticoagulants; Z79.899 Other long term (current) drug therapy; Z99.81 Dependence on supplemental oxygen

== ENCOUNTER 2024-11-14 02:31 | Emergency (ER) | payer MEDICARE, OTHER ==
[2024-11-14 02:50] VITALS: RESP 18; TEMP 95.4
[2024-11-14 03:04] LABS: Glucose, Urine Negative (Negative); Protein,Urine Dip 30 (Negative); RBC >100 /HPF (0-5); WBC >100 /HPF (0-5)
--- NOTE | 2024-11-14 03:38 | ERPHSYRPT ---
- History of Present Illness Time Seen by Provider: 11/14/24 03:06 Patient Subjective Stated Complaint: pt states burning with urination Triage Nursing Assessment: pt ambulated into the er; pt is axo x4; c/o urinary frequency; pt states 10/10 pain to vagina; pt states burning to vagina; skin PDW; no respiratory distress present; vitals wnl Physician History: Possible urinary tract infection, patient has a history of recurrent urinary tract infections, she has a history of a bowel problem which is not curable,Patient is seen frequently in the emergency department for urinary tract infections, she states she is resistant or is allergic to many antibiotics, She wears a diaper Timing/Duration: yesterday Quality: burning, cramping, pressure Onset Location: suprapubic, vaginal Severity of Pain-Max: moderate Severity of Pain-Current: moderate Allergies/Adverse Reactions: sumatriptan [From Imitrex] Allergy (Intermediate, Verified 11/14/24 02:38) Rash codeine Allergy (Mild, Verified 11/14/24 02:38) Rash MAKES SICK nitrofurantoin [From Macrobid] Allergy (Unknown, Verified 11/14/24 02:38) sulfamethoxazole [From Bactrim] Allergy (Unknown, Verified 11/14/24 02:38) trimethoprim [From Bactrim] Allergy (Unknown, Verified 11/14/24 02:38) sumatriptan succinate [From Imitrex] Allergy (Verified 11/14/24 02:38) hydrocodone bitartrate [From Vicodin] Adverse Reaction (Mild, Verified 11/14/24 02:38) Vomiting hydromorphone [From Dilaudid] Adverse Reaction (Mild, Verified 11/14/24 02:38) pt states makes headache worse. Home Medications: ALPRAZolam 1 MG [Xanax 1 mg] 1 mg PO TID 02/17/13 [History] Aspirin 81 mg PO DAILY 09/11/16 [History] Levothyroxine Sodium 50 Mcg [Synthroid 50 Mcg] 50 mcg PO DAILY 07/06/17 [History] Dexlansoprazole [Dexilant] 60 mg PO DAILY 01/21/20 [History] Albuterol 2.5 mg/3 ml Neb [Proventil 2.5 mg/3 ml Neb] 2.5 mg IH QID 07/23/20 [History] dilTIAZem HCL [Diltiazem 24Hr ER (Cd)] 120 mg PO DAILY 09/29/21 [History] Promethazine HCl 25 mg [Phenergan 25 mg] 25 mg PO BIDPRN PRN 01/18/22 [History] Apixaban [Eliquis] 5 mg PO BID 07/02/22 [History] Fluticasone/Umeclidin/Vilanter [Trelegy Ellipta 200-62.5-25] 1 each IH DAILY 07/02/22 [History] Cetirizine HCl [Zyrtec] 1 tab PO DAILY 11/08/22 [History] Magnesium Oxide 400 mg [Mag-Ox 400] 1 tab PO DAILY 11/08/22 [History] Sodium Bicarbonate 2 tab PO TID 11/08/22 [History] Omeprazole/Sodium Bicarbonate [Omeprazole-Bicarb 40-1,100 Cap] 1 each PO HS 11/28/22 [History] Atorvastatin Calcium [Lipitor 40Mg] 40 mg PO DAILY 03/09/23 [History] Tenapanor HCl [Ibsrela] 50 mg PO BID 05/05/23 [History] Ubrogepant [Ubrelvy] 100 mg PO DAILY PRN 05/05/23 [History] Buprenorphine 1 each TD WEEKLY 03/24/24 [History] Galcanezumab-Gnlm [Emgality] 120 mg SQ UD 04/08/24 [History] Linaclotide [Linzess] 145 mcg PO DAILY 08/09/24 [History] Hx Tetanus, Diphtheria Vaccination/Date Given: Yes Hx Influenza Vaccination/Date Given: Yes Hx Pneumococcal Vaccination/Date Given: Yes Travel Risk - International Travel Have you traveled outside of the country in past 3 weeks: No - Emerging Infectious Disease Are you exhibiting symptoms associated with any current EIDs: No Symptoms: Abdominal Pain, Vomitting Comment: uti - Past Medical History Pertinent Past Medical History: Yes Neurological History: Migraines ENT History: Cataracts Cardiac History: High Cholesterol Respiratory History: Bronchitis, COPD, Pneumonia, Pulmonary Embolism Endocrine Medical History: Hypothyroidism Musculoskeletal History: Osteoarthritis GI Medical History: GERD, Other History: Other Psycho-Social History: Anxiety, Depression, Panic Disorder Female Reproductive Disorders: No Pertinent History Other Medical History: frequent uti's, chronic pseudo obstruction, blood clot, partial bowel blockage. septic in august 2023. post a cath replaced 10/15/23, mass to left kidney 1.5cm - Past Surgical History Past Surgical History: Yes Neuro Surgical History: No Pertinent History Cardiac: No Pertinent History Respiratory: No Pertinent History Gastrointestinal: Cholecystectomy, Other Genitourinary: No Pertinent History Musculoskeletal: No Pertinent History Female Surgical History: Hysterectomy Other Surgical History: all of large intestine removed and most of small intestines removed, feeding tube in 2004 removed in 2007. Significant Family History: no pertinent family hx - Social History Smoking Status: Never smoker Exposure to second hand smoke: No Drug Use: none - Social Determinants of Health Will the patient participate in the screening: Yes Do you worry about a steady place to live?: No Do you have any problems with any of the following?: No known problems In the past 12 months,have you had to go without utilities?: No Transportation Issues: No Has anyone in your support network made you feel unsafe?: No Have you or anyone in your house had to go w/o enough food: No - Nursing Vital Signs Nursing Vital Signs: Initial Vital Signs Temperature 95.4 F 11/14/24 02:40 Pulse Rate 98 H 11/14/24 02:40 Respiratory Rate 18 11/14/24 02:40 Blood Pressure 115/83 11/14/24 02:40 O2 Sat by Pulse Oximetry 99 11/14/24 02:40 Pain Scale Pain Intensity 10 - Physical Exam General Appearance: no apparent distress, alert Eye Exam: PERRL/EOMI, eyes nml inspection Ears, Nose, Throat Exam: normal ENT inspection, pharynx normal, moist mucous membranes Neck Exam: normal inspection, non-tender, supple, full range of motion, No Brudzinski, No Kernig's Respiratory Exam: normal breath sounds, lungs clear Cardiovascular Exam: regular rate/rhythm, normal heart sounds Gastrointestinal/Abdomen Exam: soft, tenderness (Suprapubic) Extremity Exam: normal inspection, normal range of motion Neurologic Exam: alert, 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, cooperative, b operator II-XII nml as tested SpO2 Interpretation: normal SpO2: 99 Ordered Tests: Active Orders 24 hr Category Date Time Status IV Insertion STAT Care 11/14/24 03:24 Active BMP Stat Lab 11/14/24 03:40 Completed CBC W DIFF Stat Lab 11/14/24 03:40 Completed CULTURE,URINE Stat Lab 11/14/24 02:50 Received Lactic Acid Stat Lab 11/14/24 03:40 Completed UA W/RFX UR CULTURE Stat Lab 11/14/24 02:50 Completed Medication Summary Discontinued Medications Generic Name Dose Route Start Last Admin Trade Name Elton PRN Reason Stop Dose Admin Cefepime HCl Confirm 11/14/24 03:45 Cefepime Hcl 2 Gm Vial Administered 11/14/24 03:46 Dose 2 g .ROUTE .STK-MED ONE Cefepime HCl 2 g/ Sodium 100 mls @ 200 mls/hr 11/14/24 03:23 11/14/24 03:46 Chloride IV 11/14/24 03:52 200 mls/hr STAT STA 200 mls/hr Administration Sodium Chloride Confirm 11/14/24 03:45 Sodium Chloride 0.9% Administered 11/14/24 03:46 Dose 100 mls @ ud .ROUTE .STK-MED ONE Lab/Rad Data: Laboratory Result Diagrams 11/14/24 03:40 11/14/24 03:40 Laboratory Results 11/14/24 11/14/24 11/14/24 Range/Units 03:40 03:40 03:40 WBC 4.8 (3.98-10.04) x10^3/uL RBC 3.44 L (3.93-5.22) x10^6/uL Hgb 10.1 L (11.2-15.7) g/dL Hct 31.4 L (34.1-44.9) % MCV 91.3 (79.4-94.8) fL MCH 29.4 (25.6-32.2) pg MCHC 32.2 (32.2-35.5) g/dL RDW 13.2 (11.7-14.4) % Plt Count 149 L (182-369) x10^3/uL MPV 10.5 (9.4-12.3) fL Gran % 68.9 (34.0-71.1) % Immature Gran % (Auto) 0.4 (0.001-0.429) % Nucleat RBC Rel Count 0.0 (0.00-0.2) % Eos # (Auto) 0.06 (0.04-0.36) x10^3/uL Immature Gran # (Auto) 0.02 (0.001-0.031) x10^3u/L Absolute Lymphs (auto) 0.98 L (1.18-3.74) x10^3/uL Absolute Monos (auto) 0.38 (0.24-0.86) x10^3/uL Absolute Nucleated RBC 0.00 (0.00-0.012) x10^3u/L Lymphocytes % 20.6 (19.3-51.7) % Monocytes % 8.0 (4.7-12.5) % Eosinophils % 1.3 (0.7-5.8) % Basophils % 0.8 (0.1-1.2) % Absolute Granulocytes 3.27 (1.56-6.13) x10^3/uL Basophils # 0.04 (0.01-0.08) x10^3/uL Sodium 131 L (135-145) mmol/L Potassium 3.7 (3.5-5.1) mmol/L Chloride 101 (98-107) mmol/L Carbon Dioxide 25 (22-30) mmol/L Anion Gap 8.6 (5-15) MEQ/L BUN 18 H (7-17) mg/dL Creatinine 1.25 H (0.52-1.04) mg/dL Estimated GFR 46.7 ML/MIN Glucose 105 (74-106) mg/dL Lactic Acid 0.8 (0.4-2.0) Calcium 8.6 (8.4-10.2) mg/dL Urine Color (Yellow) Urine Appearance (Clear) Urine pH (4.6-8.0) Ur Specific [place] (1.005-1.030) Urine Protein (Negative) Urine Glucose (UA) (Negative) mg/dL Urine Ketones (Negative) Urine Blood (Negative) Urine Nitrite (Negative) Urine Bilirubin (Negative) Urine Urobilinogen (0.2) mg/dL Ur Leukocyte Esterase (Negative) U Hyaline Cast (Auto) (0-2) /LPF Urine Microscopic RBC (0-5) /HPF Urine Microscopic WBC (0-5) /HPF Ur Epithelial Cells (None Seen) /HPF Urine Bacteria (None Seen) /HPF Urine Culture Reflexed (NO) 09/30/25 Range/Units 02:50 WBC (3.98-10.04) x10^3/uL RBC (3.93-5.22) x10^6/uL Hgb (11.2-15.7) g/dL Hct (34.1-44.9) % MCV (79.4-94.8) fL MCH (25.6-32.2) pg MCHC (32.2-35.5) g/dL RDW (11.7-14.4) % Plt Count (182-369) x10^3/uL MPV (9.4-12.3) fL Gran % (34.0-71.1) % Immature Gran % (Auto) (0.001-0.429) % Nucleat RBC Rel Count (0.00-0.2) % Eos # (Auto) (0.04-0.36) x10^3/uL Immature Gran # (Auto) (0.001-0.031) x10^3u/L Absolute Lymphs (auto) (1.18-3.74) x10^3/uL Absolute Monos (auto) (0.24-0.86) x10^3/uL Absolute Nucleated RBC (0.00-0.012) x10^3u/L Lymphocytes % (19.3-51.7) % Monocytes % (4.7-12.5) % Eosinophils % (0.7-5.8) % Basophils % (0.1-1.2) % Absolute Granulocytes (1.56-6.13) x10^3/uL Basophils # (0.01-0.08) x10^3/uL Sodium (135-145) mmol/L Potassium (3.5-5.1) mmol/L Chloride (98-107) mmol/L Carbon Dioxide (22-30) mmol/L Anion Gap (5-15) MEQ/L BUN (7-17) mg/dL Creatinine (0.52-1.04) mg/dL Estimated GFR ML/MIN Glucose (74-106) mg/dL Lactic Acid (0.4-2.0) Calcium (8.4-10.2) mg/dL Urine Color Dark Yellow A (Yellow) Urine Appearance Turbid A (Clear) Urine pH 6.5 (4.6-8.0) Ur Specific [place] 1.020 (1.005-1.030) Urine Protein 30 (Negative) Urine Glucose (UA) Negative (Negative) mg/dL Urine Ketones Trace A (Negative) Urine Blood Trace (Negative) Urine Nitrite Negative (Negative) Urine Bilirubin Negative (Negative) Urine Urobilinogen 1.0 A (0.2) mg/dL Ur Leukocyte Esterase Large A (Negative) U Hyaline Cast (Auto) 6-10 A (0-2) /LPF Urine Microscopic RBC >100 A (0-5) /HPF Urine Microscopic WBC >100 A (0-5) /HPF Ur Epithelial Cells Many A (None Seen) /HPF Urine Bacteria None Seen (None Seen) /HPF Urine Culture Reflexed YES (NO) - Progress Progress Note: 11/14/24 03:37 Labs, IV cefepime, chart review(Patient has had 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
[2024-11-14 03:45] LABS: BASOPHIL % 0.8 % (0.1-1.2); Basophil (Absolute #) 0.04 x10^3/uL (0.01-0.08); Eosinophil (Absolute #) 0.06 x10^3/uL (0.04-0.36); Hematocrit 31.4 % (34.1-44.9); Hemoglobin 10.1 g/dL (11.2-15.7); IMMATURE GRAN # 0.02 x10^3u/L (0.001-0.031); IMMATURE GRAN % 0.4 % (0.001-0.429); Lymphocyte (Absolute #) 0.98 x10^3/uL (1.18-3.74); Mean Corpuscular Hemoglobin 29.4 pg (25.6-32.2); Mean Corpuscular Hgb Concent. 32.2 g/dL (32.2-35.5); Monocyte (Absolute #) 0.38 x10^3/uL (0.24-0.86); NUCLEATED RBC # 0.00 x10^3u/L (0.00-0.012); NUCLEATED RBC % 0.0 % (0.00-0.2); Platelet Count 149 x10^3/uL (182-369); Red Blood Count 3.44 x10^6/uL (3.93-5.22); White Blood Count 4.8 x10^3/uL (3.98-10.04)
[2024-11-14] MEDS ORDERED: Maxipime 2 GM ONE (03:45)
[2024-11-14] MEDS: Maxipime 2 GM** 2 G in Sodium Chloride 0.9% 100 ML IV STA (03:46)
[2024-11-14 04:01] LABS: Calcium 8.6 mg/dL (8.4-10.2); Carbon Dioxide 25.0 mmol/L (22-30); Creatinine 1 1.25 mg/dL (0.52-1.04); EST GLOMERULAR FILTRATION RATE 46.7 ML/MIN; Glucose 105.0 mg/dL (74-106); Potassium 3.7 mmol/L (3.5-5.1)
[2024-11-14 04:28] VITALS: BP 121/68; PULSE 68; O2SAT 96
== END 2024-11-14 04:31 | disposition home or self-care (01) ==
LOC: ED 02:31
DX: N39.0 Urinary tract infection, site not specified (principal); R30.0 Dysuria; Z79.01 Long term (current) use of anticoagulants; Z79.899 Other long term (current) drug therapy

== ENCOUNTER 2024-11-18 15:48 | Emergency (ER) | payer MEDICARE, OTHER ==
[2024-11-18 17:22] VITALS: RESP 17
--- NOTE | 2024-11-18 17:25 | ERPHSYRPT ---
- History of Present Illness Time Seen by Provider: 11/18/24 16:49 Source: patient Exam Limitations: no limitations Patient Subjective Stated Complaint: c/o burning with urination Triage Nursing Assessment: Patient was dropped off at ED with c/o burning with urination. patient was seen at our ER on the and was given IV antibiotics and sent home with cefdinir prescription. patient states the cefdinir isn't working. Patient rates pain 10/10, urine is yellow and clear, states she has some pain in lower back. gait steady, doesn't appear to be in any distress at this time. Physician History: Patient is here with burning with urination. Patient gets frequent UTIs. Sees urology and infectious disease. Patient had a recent urine culture that was 30- 40,000 E. coli. I did review this culture. It did appear to be susceptible to cephalosporins. Patient was given IV antibiotics and sent home on cefdinir. Patient states that the cefdinir is not working. States her pain is a 10 out of 10. Patient was able to give us a good urine sample, it was clear and yellow. She states that the pain radiates only slightly into the very low back. Does not radiate into the flank, no other early signs of pyelonephritis. No tachycardia, tachypnea, fever. Patient is taking PO well. Same number of urinations and defecations. The patient has no signs of altered mental status, nuchal rigidity, signs of meningitis. The patient is up-to-date on all vaccinations. Allergies/Adverse Reactions: sumatriptan [From Imitrex] Allergy (Intermediate, Verified 11/18/24 16:46) Rash codeine Allergy (Mild, Verified 11/18/24 16:46) Rash MAKES SICK nitrofurantoin [From Macrobid] Allergy (Unknown, Verified 11/18/24 16:46) sulfamethoxazole [From Bactrim] Allergy (Unknown, Verified 11/18/24 16:46) trimethoprim [From Bactrim] Allergy (Unknown, Verified 11/18/24 16:46) sumatriptan succinate [From Imitrex] Allergy (Verified 11/18/24 16:46) hydrocodone bitartrate [From Vicodin] Adverse Reaction (Mild, Verified 11/18/24 16:46) Vomiting hydromorphone [From Dilaudid] Adverse Reaction (Mild, Verified 11/18/24 16:46) pt states makes headache worse. Home Medications: ALPRAZolam 1 MG [Xanax 1 mg] 1 mg PO TID 02/17/13 [History] Aspirin 81 mg PO DAILY 09/11/16 [History] Levothyroxine Sodium 50 Mcg [Synthroid 50 Mcg] 50 mcg PO DAILY 07/06/17 [History] Dexlansoprazole [Dexilant] 60 mg PO DAILY 01/21/20 [History] Albuterol 2.5 mg/3 ml Neb [Proventil 2.5 mg/3 ml Neb] 2.5 mg IH QID 07/23/20 [History] dilTIAZem HCL [Diltiazem 24Hr ER (Cd)] 120 mg PO DAILY 09/29/21 [History] Promethazine HCl 25 mg [Phenergan 25 mg] 25 mg PO BIDPRN PRN 01/18/22 [History] Apixaban [Eliquis] 5 mg PO BID 07/02/22 [History] Fluticasone/Umeclidin/Vilanter [Trelegy Ellipta 200-62.5-25] 1 each IH DAILY 07/02/22 [History] Cetirizine HCl [Zyrtec] 1 tab PO DAILY 11/08/22 [History] Magnesium Oxide 400 mg [Mag-Ox 400] 1 tab PO DAILY 11/08/22 [History] Sodium Bicarbonate 2 tab PO TID 11/08/22 [History] Omeprazole/Sodium Bicarbonate [Omeprazole-Bicarb 40-1,100 Cap] 1 each PO HS 11/28/22 [History] Atorvastatin Calcium [Lipitor 40Mg] 40 mg PO DAILY 03/09/23 [History] Ubrogepant [Ubrelvy] 100 mg PO DAILY PRN 05/05/23 [History] Galcanezumab-Gnlm [Emgality] 120 mg SQ UD 04/08/24 [History] Linaclotide [Linzess] 145 mcg PO DAILY 08/09/24 [History] Hx Tetanus, Diphtheria Vaccination/Date Given: Yes Hx Influenza Vaccination/Date Given: Yes Hx Pneumococcal Vaccination/Date Given: Yes Travel Risk - International Travel Have you traveled outside of the country in past 3 weeks: No - Emerging Infectious Disease Are you exhibiting symptoms associated with any current EIDs: No Symptoms: Abdominal Pain, Vomitting Comment: uti - Past Medical History Pertinent Past Medical History: Yes Neurological History: Migraines ENT History: Cataracts Cardiac History: High Cholesterol Respiratory History: Bronchitis, COPD, Pneumonia, Pulmonary Embolism Endocrine Medical History: Hypothyroidism Musculoskeletal History: Osteoarthritis GI Medical History: GERD, Other History: Other Psycho-Social History: Anxiety, Depression, Panic Disorder Female Reproductive Disorders: No Pertinent History Other Medical History: frequent uti's, chronic pseudo obstruction, blood clot, partial bowel blockage. septic in august 2023. post a cath replaced 10/15/23, mass to left kidney 1.5cm - Past Surgical History Past Surgical History: Yes Neuro Surgical History: No Pertinent History Cardiac: No Pertinent History Respiratory: No Pertinent History Gastrointestinal: Cholecystectomy, Other Genitourinary: No Pertinent History Musculoskeletal: No Pertinent History Female Surgical History: Hysterectomy Other Surgical History: all of large intestine removed and most of small intestines removed, feeding tube in 2004 removed in 2007. Significant Family History: no pertinent family hx - Social History Smoking Status: Never smoker Exposure to second hand smoke: No Drug Use: none - Social Determinants of Health Will the patient participate in the screening: Yes Do you worry about a steady place to live?: No Do you have any problems with any of the following?: No known problems In the past 12 months,have you had to go without utilities?: No Transportation Issues: No Has anyone in your support network made you feel unsafe?: No Have you or anyone in your house had to go w/o enough food: No - Nursing Vital Signs Nursing Vital Signs: Initial Vital Signs Blood Pressure 148/65 11/18/24 16:46 O2 Sat by Pulse Oximetry 100 11/18/24 16:46 Pain Scale Pain Intensity 10 - Physical Exam SpO2 Interpretation: normal SpO2: 99 Comments: 11/19/24 06:58 Review of Systems Constitutional: Negative for fever. HENT: Negative for congestion. Respiratory: Negative for shortness of breath. Cardiovascular: Negative for chest pain. Gastrointestinal: Negative for abdominal pain. Genitourinary: Negative for dysuria. Musculoskeletal: Negative for back pain. Skin: Negative for rash. Neurological: Negative for headaches. Psychiatric/Behavioral: Negative for behavioral problems. All other systems reviewed and are negative. Physical Exam Vitals signs and nursing note reviewed. Constitutional: Appearance: Patient is well-developed. HENT: Head: Normocephalic and atraumatic. Eyes: Conjunctiva/sclera: Conjunctivae normal. Neck: Musculoskeletal: Normal range of motion. Trachea: No tracheal deviation. Cardiovascular: Rate and Rhythm: Normal rate. Heart sounds normal. Pulmonary: Effort: Pulmonary effort is normal. No respiratory distress. Abdominal: Palpations: Abdomen is soft. Minimal suprapubic tenderness. No rebound or guarding. No flank pain. Musculoskeletal: General: No deformity. Skin: General: Skin is warm and dry. Neurological/ Psychiatric: Mental Status: Mental status, behavior, interaction with environment is appropriate for patient's age and condition - Course Nursing assessment & vital signs reviewed: Yes Ordered Tests: Active Orders 24 hr Category Date Time Status CULTURE,URINE Stat Lab 11/18/24 17:26 Ordered UA W/RFX UR CULTURE Stat Lab 11/18/24 17:22 Completed Lab/Rad Data: Laboratory Results 11/18/24 Range/Units 17:22 Urine Color Yellow (Yellow) Urine Appearance Clear (Clear) Urine pH 5.5 (4.6-8.0) Ur Specific [place] 1.020 (1.005-1.030) Urine Protein Negative (Negative) Urine Glucose (UA) Negative (Negative) mg/dL Urine Ketones Trace A (Negative) Urine Blood Negative (Negative) Urine Nitrite Negative (Negative) Urine Bilirubin Negative (Negative) Urine Urobilinogen 0.2 (0.2) mg/dL Ur Leukocyte Esterase Moderate A (Negative) U Hyaline Cast (Auto) NONE SEEN (0-2) /LPF Urine Microscopic RBC 0-2 (0-5) /HPF Urine Microscopic WBC 11-20 A (0-5) /HPF Ur Epithelial Cells Few (None Seen) /HPF Urine Bacteria None Seen (None Seen) /HPF Urine Culture Reflexed ORDERED SEPARATELY (NO) - Progress Progress: improved Progress Note: 11/19/24 06:58 As above, patient here with UTI-like symptoms. Patient gets frequent UTIs, follows with urology and infectious disease. I did review urine culture, positive for 30-40,000 E. coli should be susceptible to cephalosporins. Patient states that cefdinir in general does not work for her. I did have a long conversation with the patient reviewing all previous urine cultures. Typically we would expect greater than 100,000 to be positive for E. coli. Unclear if patient has true UTIs or some other type of bladder spasm, chronic issue. This is given her frequent ER visits and following with infectious disease and urology. I will change her antibiotic from cefdinir to Keflex to see if this works better for her body. I also refilled patient's Toradol for pain. However, I did state that patient likely needs antibiotics through her infectious disease or urologist. They will need to get her on a plan given her frequent UTIs. Although we are always happy to evaluate her for an emergency and do a reexam. She should absolutely return should she have any fever, chest pain, shortness of breath, worsening symptoms. I did go over signs and symptoms of pyelonephritis with the patient. I did state all this to the patient. She states her understanding. Counseled pt/family regarding: lab results, diagnosis, need for follow-up - Departure Departure Disposition: Home Clinical Impression: UTI symptoms Condition: Stable Critical Care Time: No Referrals: MARQUISE HENDERSON DO [Primary Care Provider, [facility]] - Follow up/PCP as directed Instructions: Urinary Tract Infection, Adult (DC) Prescriptions: Cephalexin Mh 500 mg [Keflex 500 mg] 500 mg PO TID #21 cap Ketorolac Trometh 10 mg Tab [TORAdol 10 MG TABLET] 10 mg PO BID PRN 5 Days #15 tablet
[2024-11-18 17:33] LABS: Glucose, Urine Negative (Negative); Protein,Urine Dip Negative (Negative); RBC 0-2 /HPF (0-5)
[2024-11-18 17:36] VITALS: BP 96/69; PULSE 94
[2024-11-19 07:01] VITALS: O2SAT 99
== END 2024-11-18 17:36 | disposition home or self-care (01) ==
LOC: ED 15:48
DX: R39.89 Other symptoms and signs involving the genitourinary system (principal); R30.0 Dysuria; Z79.01 Long term (current) use of anticoagulants; Z79.899 Other long term (current) drug therapy